=== PATIENT | male | born 1940 | race Caucasian/White ===

== ENCOUNTER → 2017-09-11 14:35 | Outpatient (CLI) | payer MEDICARE, BC, SELFPAY | PROVIDERS: Family Provider Family Medicine Geriatric Medicine; PCP Family Medicine Geriatric Medicine; Visit Provider Nurse Practitioner Acute Care | DX: Z46.89 Encounter for fitting and adjustment of other specified devices (principal) ==

== ENCOUNTER 2017-10-10 00:43 | Emergency (ER) | payer MEDICARE, BC, SELFPAY ==
[2017-10-10 00:43] VITALS: BP 169/75; PULSE 76; RESP 16; TEMP 36.8; O2SAT 99; BMI 42.1
[2017-10-10 00:51] LABS: Bedside Glucose 148 mg/dL (70-110)
--- NOTE | 2017-10-10 00:59 | CT_ITS ---
STUDY: CT BRAIN WITHOUT CONTRAST REASON FOR EXAM: Male, 77 years old. Confusion and altered mental status. RADIATION DOSAGE (If Supplied By Facility): CTDIvol = ( 44.99 ) mGy, DLP = ( 779.24 ) mGycm TECHNIQUE: Transaxial CT imaging of the brain was performed without administration of intravenous contrast material. Individualized dose optimization techniques were used for this CT. COMPARISON: None. FINDINGS: Normal soft tissue structures. Normal calvarium. There is mild cerebral atrophy with widening of the extra-axial spaces and ventricular dilatation. There are areas of decreased attenuation within the white matter tracts of the supratentorial brain, consistent with microvascular disease changes. Normal basal ganglia and thalami. Normal brainstem. Normal cerebellum. There is no intracranial hemorrhage. There are no findings of an acute ischemic infarction. Normal visualized paranasal sinuses. CT/Brain/Head without Contrast IMPRESSION: Chronic involutional changes of the brain. No acute intracranial process Electronically Signed: Dale Greene MD at 2:06 EST Tel , Service support ,
--- NOTE | 2017-10-10 00:59 | EKG12_ITS ---
Test Reason : CP Blood Pressure : / mmHG Vent. Rate : 073 BPM Atrial Rate : 073 BPM P-R Int : 108 ms QRS Dur : 098 ms QT Int : 428 ms P-R-T Axes : 078 071 064 degrees QTc Int : 471 ms Sinus rhythm with short OR Otherwise normal ECG Confirmed by CIRILO JOHNSON ([id number]), editor sound GORGE MARTIN ([id number]) on 10/14/2017 1:37:28 PM Referred By: ANNA Confirmed By:CIRILO JOHNSON
[2017-10-10 01:05] LABS: Absolute Lymphocyte Count 2.07 X10^3/ul (0.83-4.51); Absolute Neutrophil Count 3.4 X10^3/uL (2.0-7.7); Basophil# 0.02 X10^3/uL; Basophil% 0.3 % (0-1); Eosinophil# 0.25 X10^3/uL; Eosinophils% 3.9 % (0-5); Hematocrit 35.2 % (40-54); Hemoglobin 11.1 g/dl (13.0-16.5); Lymphocyte # 2.07 X10^3/ul (4.0); Lymphocyte % 32.6 % (19-41); Mean Corp Hgb Conc 31.5 g/gl (32-36); Mean Corpuscular Hgb 30.2 pg (27.0-32.0); Mean Corpuscular Volume 95.7 fL (80-94); Mean Platelet Vol. 9.9 fl (6.2-12.0); Monocyte# 0.62 X10^3/uL; Monocyte% 9.8 % (0-10); Neutrophil # 3.36 X10^3/uL (2.7-7.7); Neutrophil % 53.1 % (47-70); POSITIVE COUNT NO; POSITIVE DIFFERENTIAL NO; POSITIVE MORPHOLOGY NO; Platelet Count 179 K/mm3 (150-450); RBC Distribution Width CV 13.7 % (11.6-14.6); RBC Distribution Width SD 47.5 fl (35.1-43.9); Red Blood Count 3.68 M/mm3 (4.6-6.2); White Blood Count 6.3 K/mm3 (4.4-11.0)
[2017-10-10 01:08] VITALS: BP 171/65; PULSE 71; RESP 20; O2SAT 99
[2017-10-10 01:18] LABS: Anion Gap 10 (5-15); BUN 25 mg/dL (7-18); BUN/Creat Ratio 22.9 RATIO (10-20); Calcium,Total 8.6 mg/dL (8.5-10.1); Chloride 107 mmol/L (98-107); Creatinine, Serum 1.09 mg/dL (0.70-1.30); EST Glomerular Filtration Rate 70 mL/min (>60); Est Glom Filt Rate - Afr Amer 84 mL/min (>60); Glucose 143 mg/dL (74-106); Potassium 4.5 mmol/L (3.5-5.1); Sodium Level 143 mmol/L (136-145)
[2017-10-10 02:04] LABS: Bacteria 0 SEEN /hpf (None Seen); Mucous, Urine 0 SEEN /hpf (<or=2+); Red Blood Cells-Urine 0 SEEN /hpf (0-5); Squamous Epithelial Cells - UA 0 SEEN /hpf (0-5); White Blood Cells 0 SEEN /hpf (0-5)
[2017-10-10 02:10] LABS: Color, Urine Yellow (Yellow); Glucose, Dipstick Normal (Normal); Ketone-Dipstick Negative (Negative); Leukocyte Esterase-Dipstick Negative /ul (Negative); Nitrite-Dipstick Negative (Negative); Occult Blood-Urine Negative /ul (Negative); Protein-Dipstick 30 mg/dl (Negative); Specific Gravity, Urine 1.015 (1.002-1.030); Urine Bilirubin Dipstick Negative (Negative); Urine Clarity Clear (Clear); Urine Urobilinogen Normal (Normal)
[2017-10-10 02:36] VITALS: BP 175/68; PULSE 70; RESP 16; O2SAT 96
[2017-10-10 03:04] VITALS: BP 156/60; PULSE 66; RESP 20
--- NOTE | 2017-10-10 03:16 | ED.DCSUM_ITS ---
- ER Visit Summary Date of Service: 10/10/17 Chief Complaint: Slurred speech History of Present Illness: The patient is a 77 M presenting for evaluation secondary to an episode of slurred speech. Patient and his are in the process of selling their home in which they have lived for the last 52 years. Patient was doing well today, but they got an offer on their home today and it was $32,000 less than they are asking trevino. Patient states that he felt significantly insulted by this, became extremely emotional and actually called his counselor. While he was talking to his counselor apparently he was having some slurring of his speech. Patient states that he is having generalized weakness, but denies any numbness or visual changes. He is not having any word finding difficulty. Apparently the patient's counselor was concerned about his level of slurred speech and the patient was asked to present to the emergency department. Patient does have an underlying history of diabetes A. fib hypertension high cholesterol and coronary artery disease. Physical Examination: Vital signs within normal limits blood pressure mildly elevated 156/60. Obese male no acute distress. Head normocephalic atraumatic. Moist mucous membranes. PRL, EOMI. Neck supple. Heart regular rate and rhythm lungs sounds clear. Abdomen was soft nontender nondistended with normal bowel sounds. Extremities were nontender. Skin normal color no rash. Patient was alert and oriented ?4. Cranial nerves II through XII intact. Normal strength sensation. NIH stroke scale was found to be 0. Test Results: CT brain shows chronic changes. EKG shows sinus rhythm 73 short MA interval no evidence of ischemia. CBC shows mild anemia 11.1, chemistry and troponin found to be negative. Emergency Department Course and Treatment: Patient presented secondary to an episode of slurred speech. Patient was tearful upon my initial exam, and when I actually initially asked him what he was here for he very tearfully stated that someone was trying to steal his house from him. Full workup was obtained and was found to be negative. Repeat evaluation the patient was completely back to baseline and was lucid. I really do not believe that there is any utility in admitting the patient at this time, I believe that this likely was an emotional event rather than a TIA or stroke presentation. Had an extensive conversation with the patient and his about this, they are understanding and the patient was discharged in stable condition Disposition: Discharge Impression: 1. Adjustment disorder This note was generated with [employer] dictation software. It may contain incorrect words, spelling, and punctuation that were not noted in review of the chart prior to signing ED Disposition - Plan for ED Patient: Disposition: Home or Assisted Living Chief Complaint: Neuro S/Sx Diagnosis: Adjustment disorder Instructions: ED Adjustment Disorder Referrals: Hermilo Arellano Chi, MD [Primary Care Provider] - As Needed
[2017-10-10 03:34] VITALS: BP 155/88; PULSE 66; RESP 19; O2SAT 98
== END 2017-10-10 03:34 | disposition home or self-care (01) ==
PROVIDERS: Emergency Provider Emergency Medicine; Family Provider Family Medicine Geriatric Medicine; PCP Family Medicine Geriatric Medicine
DX: F43.29 Adjustment disorder with other symptoms (principal); E11.9 Type 2 diabetes mellitus without complications; Z79.84 Long term (current) use of oral hypoglycemic drugs; I25.10 Atherosclerotic heart disease of native coronary artery without angina pectoris; I48.91 Unspecified atrial fibrillation; I10 Essential (primary) hypertension; E78.00 Pure hypercholesterolemia, unspecified; N40.0 Benign prostatic hyperplasia without lower urinary tract symptoms; E66.9 Obesity, unspecified; Z68.41 Body mass index [BMI] 40.0-44.9, adult; Z79.01 Long term (current) use of anticoagulants; Z79.899 Other long term (current) drug therapy
CPT/HCPCS: 70450; 80048; 81001; 82962; 84484; 85025; 93005; 99285; A4216

== ENCOUNTER → 2017-10-22 14:26 | Outpatient (CLI) | payer MEDICARE, BC, SELFPAY ==
[2017-10-22 16:02] LABS: Anion Gap 11 (5-15); BUN 19 mg/dL (7-18); BUN/Creat Ratio 16.8 RATIO (10-20); CRP 4.52 mg/L (0.0-3.0); Calcium,Total 8.8 mg/dL (8.5-10.1); Chloride 102 mmol/L (98-107); Creatinine, Serum 1.13 mg/dL (0.70-1.30); EST Glomerular Filtration Rate 67 mL/min (>60); Est Glom Filt Rate - Afr Amer 81 mL/min (>60); Glucose 276 mg/dL (74-106); Potassium 4.5 mmol/L (3.5-5.1); Sodium Level 139 mmol/L (136-145); Uric Acid 5.4 mg/dL (3.5-7.2)
[2017-10-22 16:03] LABS: Absolute Lymphocyte Count 1.39 X10^3/ul (0.83-4.51); Absolute Neutrophil Count 3.9 X10^3/uL (2.0-7.7); Basophil# 0.03 X10^3/uL; Basophil% 0.5 % (0-1); Eosinophil# 0.14 X10^3/uL; Eosinophils% 2.3 % (0-5); Hematocrit 37.4 % (40-54); Hemoglobin 11.8 g/dl (13.0-16.5); Lymphocyte # 1.39 X10^3/ul (4.0); Lymphocyte % 23.2 % (19-41); Mean Corp Hgb Conc 31.6 g/gl (32-36); Mean Corpuscular Hgb 30.3 pg (27.0-32.0); Mean Corpuscular Volume 95.9 fL (80-94); Mean Platelet Vol. 10.1 fl (6.2-12.0); Monocyte# 0.52 X10^3/uL; Monocyte% 8.7 % (0-10); Platelet Count 187 K/mm3 (150-450); RBC Distribution Width CV 13.3 % (11.6-14.6); RBC Distribution Width SD 44.5 fl (35.1-43.9)
[2017-10-22 16:06] LABS: POSITIVE COUNT NO; POSITIVE DIFFERENTIAL NO; POSITIVE MORPHOLOGY NO
[2017-10-22 16:41] LABS: Erythrocyte Sedimentation Rate 20 mm/hr (0-20)
== END ==
PROVIDERS: Family Provider Family Medicine Geriatric Medicine; PCP Family Medicine Geriatric Medicine; Visit Provider Family Medicine Geriatric Medicine
DX: M10.9 Gout, unspecified (principal)
CPT/HCPCS: 36415; 80048; 84550; 85025; 85652; 86140

== ENCOUNTER 2017-11-11 09:51 | Observation (INO) | payer MEDICARE, BC, SELFPAY ==
[2017-11-11] VITALS (13 sets, daily range): BP systolic 109–172; BP diastolic 68–90; PULSE 65–76; RESP 16–20; TEMP 36.6–37; O2SAT 94–100; BMI 40.1; BMI 38.5
--- NOTE | 2017-11-11 10:06 | NURSING ---
NO LW OR POA
--- NOTE | 2017-11-11 10:24 | CT_ITS ---
STUDY: CT BRAIN WITHOUT CONTRAST REASON FOR EXAM: Male, 77 years old. Dizziness. RADIATION DOSAGE (If Supplied By Facility): CTDIvol = ( 44.99 ) mGy, DLP = ( 762.36 ) mGycm TECHNIQUE: Transaxial CT imaging of the brain was performed without administration of intravenous contrast material. Multiplanar reformations are submitted for interpretation. Individualized dose optimization techniques were used for this CT. COMPARISON: CT of the head dated May 27, 2017. FINDINGS: Normal soft tissue structures. Normal calvarium. There is mild cerebral atrophy with widening of the extra-axial spaces and ventricular dilatation. There are areas of decreased attenuation within the white matter tracts of the supratentorial brain, consistent with microvascular disease changes. There are patchy lucencies in the basal ganglia, probably related previous ischemia. The thalami have a normal appearance. Normal brainstem. Normal cerebellum. There is no intracranial hemorrhage. There is mild atherosclerotic calcification of intracranial arteries. Normal visualized paranasal sinuses. There is deviation of nasal septum towards the left with a bony spur. CT/Brain/Head without Contrast IMPRESSION: 1. Chronic involutional changes of the brain. 2. No CT evidence of acute intracranial hemorrhage. Electronically Signed: Shi Mary MD at 11:09 EDT , Service support ,
--- NOTE | 2017-11-11 10:24 | RAD_ITS ---
STUDY: X-RAY CHEST REASON FOR EXAM: Male, 77 years old. Shortness of breath, weakness and dizziness. TECHNIQUE: Single AP portable view of the chest. COMPARISON: March 10, 2017. FINDINGS: Cardiac monitoring leads are present. There is mild elevation of the right hemidiaphragm. The left lung is expanded. There is mild prominence of bronchovascular markings. There is no demonstrated pleural abnormality. There is mild cardiac enlargement. Normal mediastinum and lakhwinder. There is prominence of the pulmonary hilar arteries with peripheral pulmonary vascular congestion. There is atherosclerotic calcification of the aortic arch with tortuosity. Normal visualized thoracic spine. Normal visualized ribs, clavicles, and shoulders. There is no demonstrated abnormality of the visualized soft tissue structures of the upper abdomen. RAD/Chest 1 View IMPRESSION: Mild cardiomegaly and mild pulmonary congestion. Electronically Signed: Shi Mary MD at 11:14 EDT , Service support ,
--- NOTE | 2017-11-11 10:24 | EKG12_ITS ---
Test Reason : DIZZINESS Blood Pressure : / mmHG Vent. Rate : 066 BPM Atrial Rate : 066 BPM P-R Int : 204 ms QRS Dur : 104 ms QT Int : 450 ms P-R-T Axes : 046 064 071 degrees QTc Int : 471 ms Normal sinus rhythm Normal ECG Confirmed by JORDIN DUNCAN, SYBIL ([id number]), international editorial producer GORGE MARTIN ([id number]) on 11/13/2017 2:54:35 PM Referred By: JEANNIE Confirmed By:SYBIL BRENNER MD
[2017-11-11 10:33] LABS: Absolute Lymphocyte Count 1.35 X10^3/ul (0.83-4.51); Absolute Neutrophil Count 4.5 X10^3/uL (2.0-7.7); Basophil# 0.02 X10^3/uL; Basophil% 0.3 % (0-1); Eosinophil# 0.13 X10^3/uL; Hemoglobin 11.5 g/dl (13.0-16.5); Lymphocyte # 1.35 X10^3/ul (4.0); Lymphocyte % 20.8 % (19-41); Mean Corp Hgb Conc 31.9 g/gl (32-36); Mean Corpuscular Hgb 30.8 pg (27.0-32.0); Mean Corpuscular Volume 96.5 fL (80-94); Mean Platelet Vol. 9.7 fl (6.2-12.0); Monocyte# 0.51 X10^3/uL; Monocyte% 7.9 % (0-10); Neutrophil # 4.47 X10^3/uL (2.7-7.7); Neutrophil % 68.8 % (47-70); Platelet Count 152 K/mm3 (150-450); RBC Distribution Width CV 13.4 % (11.6-14.6); RBC Distribution Width SD 45.2 fl (35.1-43.9); Red Blood Count 3.73 M/mm3 (4.6-6.2); White Blood Count 6.5 K/mm3 (4.4-11.0)
[2017-11-11 10:36] LABS: Bedside Glucose 167 mg/dL (70-110)
[2017-11-11 10:38] LABS: POSITIVE COUNT NO; POSITIVE DIFFERENTIAL NO; POSITIVE MORPHOLOGY NO
[2017-11-11 10:47] LABS: Anion Gap 6 (5-15); BUN 19 mg/dL (7-18); BUN/Creat Ratio 17.8 RATIO (10-20); Calcium,Total 8.4 mg/dL (8.5-10.1); Chloride 107 mmol/L (98-107); Creatinine, Serum 1.07 mg/dL (0.70-1.30); EST Glomerular Filtration Rate 71 mL/min (>60); Est Glom Filt Rate - Afr Amer 86 mL/min (>60); Estimated Creatinine Clearance 62.45 ml/min; Glucose 193 mg/dL (74-106); Potassium 4.7 mmol/L (3.5-5.1); Sodium Level 141 mmol/L (136-145)
[2017-11-11 10:51] LABS: International Normalized Ratio 1.8; Prothrombin Time (Protime)PT. 21.2 SECONDS (11.7-14.9)
[2017-11-11 10:52] LABS: Partial Thromboplast Time 32.1 Seconds (24.1-36.2)
--- NOTE | 2017-11-11 11:00 | ED.VISSUMM ---
- ER Visit Summary Date of Service: 11/11/17 Chief Complaint: Dizziness History of Present Illness: The patient is a 77 M presenting with dizziness which started this morning. Patient states he woke this morning and felt normal. He states while making breakfast he began to have a spinning sensation. He states he felt weakness in both upper extremities. He tried to walk to his living room and fell to the floor. He did not hit his head, did not lose consciousness. He denies chest pain. He states the spinning sensation is intermittent. He has symptoms with change in position and at rest. Physical Examination: Vitals are stable. Patient is afebrile. Alert no acute distress. HEENT exam is unremarkable. Neck is supple. Lungs are clear and equal bilaterally. Heart is regular rate and rhythm. Abdomen is soft nontender nondistended. Extremities are unremarkable. Skin is warm and dry. No focal neurologic deficit. NIH 0 Remainder of exam is unremarkable. Emergency Department Course and Treatment: EKG is sinus rhythm rate is 66 with no acute ischemic changes. CBC normal except for hemoglobin 11.5. Chemistries normal except for glucose 193, BUN 19. INR is 1.8. Troponin is negative. CT head shows no acute process. Patient continues to have vertigo symptoms in the ED. Will discuss with the hospitalist for admission. Disposition: Observation Impression: Vertigo This note was generated with [employer] dictation software. It may contain incorrect words, spelling, and punctuation that were not noted in review of the chart prior to signing ED Disposition - Plan for ED Patient: Chief Complaint: Dizziness Referrals: Hermlio Arellano Chi, MD [Primary Care Provider] -
--- NOTE | 2017-11-11 11:27 | NURSING ---
DR ALY TENORIO
--- NOTE | 2017-11-11 11:36 | NURSING ---
DR LU IN ER
--- NOTE | 2017-11-11 11:36 | NURSING ---
110 VERTIGO AND SLID OFF FLOOR ALY
--- NOTE | 2017-11-11 12:19 | PCM.HP.STD ---
Problem List (1) Fall Status: Acute (2) Loss of equilibrium Status: Acute (3) history of right knee cap fracture Status: Resolved (4) Status post left foot surgery Status: Resolved (5) History of right knee surgery Status: Resolved (6) De Quervain's tenosynovitis Status: Chronic (7) Body mass index (BMI) of 39.0-39.9 in adult Status: Chronic (8) Diabetes mellitus Status: Chronic (9) Paroxysmal atrial fibrillation Status: Chronic Comment: ablation 2005, DCCV 2012,2014,2016 (10) BPH (benign prostatic hyperplasia) Status: Chronic (11) History of renal calculi Status: Chronic (12) Cardiac dysrhythmia Status: Chronic (13) Dyslipidemia Status: Chronic (14) HTN (hypertension) Status: Chronic Qualifiers: (15) Obstructive sleep apnea Status: Chronic Comment: 10cm pressure (16) RLS (restless legs syndrome) Status: Chronic (17) History of prior ablation treatment Status: Chronic (18) 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 fib/flutter status post ablation, diabetes mellitus type 2, hypertension came to ER with sudden onset of dizziness, vertigo and near fall. Patient woke up fine today but after he ate breakfast and took all his pills, he felt dizzy, lightheaded and vertigo about 8 AM today. Patient further felt loss of equilibrium and slid down near chair today. Patient also had blurry vision, frontal headache and mild pain around the eyes today. Patient has chronic history of intermittent dizziness and vertigo for more than 2-3 years and has seen ENT twice. He also has bilateral tinnitus for about 5 years. Denies any recent URI, flulike symptoms or lower urinary tract symptoms. Denies history of stroke or [place] or cardiac stent but has known history of coronary artery disease and ablation. His also mentioned that he is having problem with memories and more forgetfulness last 6-8 months. His previous echo in March 2015 shows normal LV size with normal systolic function, EF 60%. Mild TR and AR. Left atrium mildly enlarged. Normal right atrium. In ED, EKG shows normal sinus rhythm 66 bpm, with no significant change from previous EKG of September 2017. In ED, blood pressure was high at 170/90. Initial workup in ER was unremarkable. Past Medical History Past Medical History (Chronic Problems): Chronic Problems (Last Updated 08/25/17 @ 16:05 by JOSEPHINE Aguilar) De Quervain's tenosynovitis (Chronic) Body mass index (BMI) of 39.0-39.9 in adult (Chronic) Diabetes mellitus (Chronic) Paroxysmal atrial fibrillation (Chronic) ablation 2005, DCCV 2012,2014,2016 BPH (benign prostatic hyperplasia) (Chronic) History of renal calculi (Chronic) Cardiac dysrhythmia (Chronic) Dyslipidemia (Chronic) HTN (hypertension) (Chronic) Obstructive sleep apnea (Chronic) 10cm pressure RLS (restless legs syndrome) (Chronic) History of prior ablation treatment (Chronic) DM type 2 with diabetic peripheral neuropathy (Chronic) Diabetic polyneuropathy (Chronic) Dizziness (Chronic) CAD (coronary artery disease) (Chronic) Allergies acetaminophen [From Vicodin] Allergy (Mild, Verified 11/11/17 10:04) hydrocodone [From Vicodin] Allergy (Mild, Verified 11/11/17 10:04) hydrocodone bitartrate [From Vicodin] Allergy (Verified 11/11/17 10:04) Other Home Medications: Ambulatory Orders Medication Instructions Recorded Finasteride [Proscar] 5 mg PO DAILY 07/15/14 Pramipexole Di-HCl [Mirapex] 2 mg PO QHS 07/15/14 Rivaroxaban [Xarelto] 20 mg PO DAILY 07/15/14 Simvastatin [Zocor] 20 mg PO QHS 07/15/14 traMADol [Ultram] 100 mg PO TID 07/15/14 Metformin HCl [Glucophage] 1,000 mg PO BIDCM 10/22/15 Metoprolol Succinate [Toprol Xl] 50 mg PO DAILY 03/10/17 glimepiride 2 mg tablet 2 mg PO BID tab 08/06/17 flecainide 100 mg tablet 100 mg PO Q12H 08/26/17 lisinopril 40 mg tablet 40 mg PO DAILY tab 08/26/17 Levomilnacipran HCl [Fetzima] 40 mg PO DAILY 10/10/17 Ergocalciferol [Vitamin D] 50,000 unit PO QMONTH 11/11/17 Gabapentin [Neurontin] 300 mg PO DAILY 11/11/17 Tamsulosin HCl [Flomax] 0.4 mg PO QHS 11/11/17 Surgical History: tonsillectomy, - - Patella repair; ORIF of left foot from accident. Psychiatric History: No pertinent psych hx Smoking Status: Former smoker - *Family History Maternal History Items: Stroke - His mother had stroke in her 70's. Paternal History Items: Cancer - Lung Review of Systems Constitutional: Denies: Chills, Fever, Weight Change HEENT: Denies: Head Aches, Sinus Congestion, Sinus Drainage Cardiovascular: Denies: Chest Pain, Palpitations Respiratory: Denies: Cough, Shortness of breath at rest, Sputum production Gastrointestinal: Denies: Abdominal Pain, Nausea, Vomiting Genitourinary: Denies: Dysuria Musculoskeletal: Denies: Joint Pain, Joint Tenderness Skin: Denies: Rash, Wounds Neurological: Reports: Balance problems, Blurred vision, Incoordination. Denies: Focal weakness, Numbness, Tingling Psychiatric: Denies: Anxiety, Depression, Homicidal Ideations, Suicidal Ideations Hematologic/ Lymphatic: Denies: Easy Bruising, Easy Bleeding VTE Information - Inpt Only VTE Present on Admission: No VTE Mechan Device Prophylaxis: SCD's, None - ON XARELTO VTE Pharm Prophylaxis ordered?: Yes Patient Problems: Active and Suspected Problems (Last Updated 08/25/17 @ 16:05 by JOSEPHINE Aguilar) Fall (Acute) Loss of equilibrium (Acute) Near syncope (Acute) - Physical Exam General: Alert, Oriented x3, Cooperative HEENT: Atraumatic, PERRLA, EOMI, Normocephalic Oral: Moist Mucosa Neck: Supple, No JVD, Negative Carotid Bruits Lungs: Clear to auscultation, Diminished Cardiovascular: Regular rate, Regular Rhythm, Normal S1, Normal S2, No murmurs Abdomen: Bowel Sounds Present, Soft, Non Tender, Non-Distended Extremities: Capillary Refill Less than 3 Seconds, Edema Skin: No rashes, No breakdown Musculoskeletal: No Tenderness to Palpation of Joints or Extremities, Arthritic Changes Neurological: Cranial nerves II-XII grossly intact Psych/Mental Status: Normal Affect, Appropriate Vital Signs Temp Pulse Resp BP Pulse Ox 97.9 F 65 16 109/90 H 100 11/11/17 09:57 11/11/17 12:01 11/11/17 12:01 11/11/17 12:01 11/11/17 12:01 Oxygen Flow Rate (L/min) 2 Oxygen Delivery Method Nasal Cannula Assessment/Plan Active and Suspected Problems (Last Updated 08/25/17 @ 16:05 by JOSEPHINE Aguilar) Fall (Acute) Loss of equilibrium (Acute) Near syncope (Acute) The patient is a 77 year old M with multiple comorbidities as listed above including coronary artery disease, paroxysmal A. fib/flutter status post ablation, diabetes mellitus type 2, hypertension came to ER with sudden onset of dizziness, vertigo and near fall. Patient woke up fine today but after he ate breakfast and took all his pills, he felt dizzy, lightheaded and vertigo about 8 AM today. Patient further felt loss of equilibrium and slid down near chair today. Patient also had blurry vision, frontal headache and mild pain around the eyes today. Patient has chronic history of intermittent dizziness and vertigo for more than 2-3 years and has seen ENT twice. He also has bilateral tinnitus for about 5 years. Denies any recent URI, flulike symptoms or lower urinary tract symptoms. Denies history of stroke or [place] or cardiac stent but has known history of coronary artery disease and ablation. His also mentioned that he is having problem with memories and more forgetfulness last 6-8 months. His previous echo in March 2015 shows normal LV size with normal systolic function, EF 60%. Mild TR and AR. Left atrium mildly enlarged. Normal right atrium. In ED, EKG shows normal sinus rhythm 66 bpm, with no significant change from previous EKG of September 2017. In ED, blood pressure was high at 170/90. Initial workup in ER was unremarkable. Chest x-ray shows prominence of pulmonary hilar arteries with peripheral pulmonary vascular congestion. 1. Near syncope, exact etiology unclear possible polypharmacy/orthostatic hypotension rule out posterior circulation stroke: Patient is being admitted in PCU on manager cardiac cath. Neurochecks. MRI brain and carotid Doppler ordered. 2D echo ordered. On aspirin and a statin. Neuro consult. Orthostatic vitals. 2. Near fall with loss of equilibrium: As mentioned above will rule out a stroke. 3. Coronary artery disease, paroxysmal A. fib/further status post cardiac ablation: Continue home medication. Currently patient is normal sinus rhythm after ablation. Continue Xarelto. 4. Hypertension: His blood pressure was high 170/60 in ER but recent is 109/90. Hold antihypertensive medications. 5. Diabetes mellitus type 2, complicated with diabetic neuropathy: Accu-Chek before meals and at bedtime and cover with NovoLog sliding scale. Multiple other comorbidities including chronic dizziness, vertigo, tinnitus exact etiology unclear, chronic degenerative joint disease, morbid obesity, BPH, dyslipidemia, obstructive sleep apnea, restless leg syndrome history of renal calculi: Stable. Home medication reconciliation done. DVT prophylaxis: On Xarelto. Laboratory Results 11/11/17 10:10: WBC 6.5, RBC 3.73 L, Hgb 11.5 L, Hct 36.0 L, MCV 96.5 H, MCH 30.8, MCHC 31.9 L, RDW 13.4, RDW Differential 45.2 H, Plt Count 152, MPV 9.7, Immature Gran % (Auto) 0.200, Neut % (Auto) 68.8, Lymph % (Auto) 20.8, [place] % (Auto) 7.9, Eos % (Auto) 2.0, Baso % (Auto) 0.3, Absolute Neuts (auto) 4.5, Absolute Lymphs (auto) 1.35, Total Counted Not Reportable 11/11/17 10:10: PT 21.2 H, INR 1.8, APTT 32.1 11/11/17 10:10: Sodium 141, Potassium 4.7, Chloride 107, Carbon Dioxide 28.0, Anion Gap 6, BUN 19 H, Creatinine 1.07, Estim Creat Clear Calc 62.45, Est GFR (MDRD) Af Amer 86, Est GFR (MDRD) Non-Af 71, BUN/Creatinine Ratio 17.8, Glucose 193 H, Calcium 8.4 L, Troponin I < 0.02 11/11/17 10:32: POC Glucose 167 H Clinical Impression(s) from Imaging Studies Brain CT 11/11/17 10:24 IMPRESSION: 1. Chronic involutional changes of the brain. 2. No CT evidence of acute intracranial hemorrhage. Electronically Signed: Shi Mary MD at 11:09 EDT , Service support , Chest X-Ray 11/11/17 10:24 IMPRESSION: Mild cardiomegaly and mild pulmonary congestion. Electronically Signed: Shi Mary MD at 11:14 EDT , Service support , This note was generated with [employer] dictation software. Every effort was made to ensure accuracy, however computerized professor of languages mistakes may persist. Code Visit Inpatient E&M: 25061 Subs Hosp L3
--- NOTE | 2017-11-11 12:30 | HP.PCM_ITS ---
Problem List (1) Fall Status: Acute (2) Loss of equilibrium Status: Acute (3) history of right knee cap fracture Status: Resolved (4) Status post left foot surgery Status: Resolved (5) History of right knee surgery Status: Resolved (6) De Quervain's tenosynovitis Status: Chronic (7) Body mass index (BMI) of 39.0-39.9 in adult Status: Chronic (8) Diabetes mellitus Status: Chronic (9) Paroxysmal atrial fibrillation Status: Chronic Comment: ablation 2005, [facility] 2012,2014,2016 (10) BPH (benign prostatic hyperplasia) Status: Chronic (11) History of renal calculi Status: Chronic (12) Cardiac dysrhythmia Status: Chronic (13) Dyslipidemia Status: Chronic (14) HTN (hypertension) Status: Chronic Qualifiers: (15) Obstructive sleep apnea Status: Chronic Comment: 10cm pressure (16) RLS (restless legs syndrome) Status: Chronic (17) History of prior ablation treatment Status: Chronic (18) 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 fib/flutter status post ablation, diabetes mellitus type 2, hypertension came to ER with sudden onset of dizziness, vertigo and near fall. Patient woke up fine today but after he ate breakfast and took all his pills, he felt dizzy, lightheaded and vertigo about 8 AM today. Patient further felt loss of equilibrium and slid down near chair today. Patient also had blurry vision, frontal headache and mild pain around the eyes today. Patient has chronic history of intermittent dizziness and vertigo for more than 2-3 years and has seen ENT twice. He also has bilateral tinnitus for about 5 years. Denies any recent URI, flulike symptoms or lower urinary tract symptoms. Denies history of stroke or [place] or cardiac stent but has known history of coronary artery disease and ablation. His also mentioned that he is having problem with memories and more forgetfulness last 6-8 months. His previous echo in March 2015 shows normal LV size with normal systolic function, EF 60%. Mild TR and AR. Left atrium mildly enlarged. Normal right atrium. In ED, EKG shows normal sinus rhythm 66 bpm, with no significant change from previous EKG of September 2017. In ED, blood pressure was high at 170/90. Initial workup in ER was unremarkable. Past Medical History Past Medical History (Chronic Problems): Chronic Problems (Last Updated 08/25/17 @ 16:05 by JOSEPHINE Aguilar) De Quervain's tenosynovitis (Chronic) Body mass index (BMI) of 39.0-39.9 in adult (Chronic) Diabetes mellitus (Chronic) Paroxysmal atrial fibrillation (Chronic) ablation 2005, D[facility]V 2012,2014,2016 BPH (benign prostatic hyperplasia) (Chronic) History of renal calculi (Chronic) Cardiac dysrhythmia (Chronic) Dyslipidemia (Chronic) HTN (hypertension) (Chronic) Obstructive sleep apnea (Chronic) 10cm pressure RLS (restless legs syndrome) (Chronic) History of prior ablation treatment (Chronic) DM type 2 with diabetic peripheral neuropathy (Chronic) Diabetic polyneuropathy (Chronic) Dizziness (Chronic) CAD (coronary artery disease) (Chronic) Allergies acetaminophen [From Vicodin] Allergy (Mild, Verified 11/11/17 10:04) hydrocodone [From Vicodin] Allergy (Mild, Verified 11/11/17 10:04) hydrocodone bitartrate [From Vicodin] Allergy (Verified 11/11/17 10:04) Other Home Medications: Ambulatory Orders Medication Instructions Recorded Finasteride [Proscar] 5 mg PO DAILY 07/15/14 Pramipexole Di-HCl [Mirapex] 2 mg PO QHS 07/15/14 Rivaroxaban [Xarelto] 20 mg PO DAILY 07/15/14 Simvastatin [Zocor] 20 mg PO QHS 07/15/14 traMADol [Ultram] 100 mg PO TID 07/15/14 Metformin HCl [Glucophage] 1,000 mg PO BIDCM 10/22/15 Metoprolol Succinate [Toprol Xl] 50 mg PO DAILY 03/10/17 glimepiride 2 mg tablet 2 mg PO BID tab 08/06/17 flecainide 100 mg tablet 100 mg PO Q12H 08/26/17 lisinopril 40 mg tablet 40 mg PO DAILY tab 08/26/17 Levomilnacipran HCl [Fetzima] 40 mg PO DAILY 10/10/17 Ergocalciferol [Vitamin D] 50,000 unit PO QMONTH 11/11/17 Gabapentin [Neurontin] 300 mg PO DAILY 11/11/17 Tamsulosin HCl [Flomax] 0.4 mg PO QHS 11/11/17 Surgical History: tonsillectomy, - - Patella repair; ORIF of left foot from accident. Psychiatric History: No pertinent psych hx Smoking Status: Former smoker - *Family History Maternal History Items: Stroke - His mother had stroke in her 70's. Paternal History Items: Cancer - Lung Review of Systems Constitutional: Denies: Chills, Fever, Weight Change HEENT: Denies: Head Aches, Sinus Congestion, Sinus Drainage Cardiovascular: Denies: Chest Pain, Palpitations Respiratory: Denies: Cough, Shortness of breath at rest, Sputum production Gastrointestinal: Denies: Abdominal Pain, Nausea, Vomiting Genitourinary: Denies: Dysuria Musculoskeletal: Denies: Joint Pain, Joint Tenderness Skin: Denies: Rash, Wounds Neurological: Reports: Balance problems, Blurred vision, Incoordination. Denies : Focal weakness, Numbness, Tingling Psychiatric: Denies: Anxiety, Depression, Homicidal Ideations, Suicidal Ideations Hematologic/ Lymphatic: Denies: Easy Bruising, Easy Bleeding VTE Information - Inpt Only VTE Present on Admission: No VTE Mechan Device Prophylaxis: SCD's, None - ON XARELTO VTE Pharm Prophylaxis ordered?: Yes Patient Problems: Active and Suspected Problems (Last Updated 08/25/17 @ 16:05 by JOSEPHINE Aguilar) Fall (Acute) Loss of equilibrium (Acute) Near syncope (Acute) - Physical Exam General: Alert, Oriented x3, Cooperative HEENT: Atraumatic, PERRLA, EOMI, Normocephalic Oral: Moist Mucosa Neck: Supple, No JVD, Negative Carotid Bruits Lungs: Clear to auscultation, Diminished Cardiovascular: Regular rate, Regular Rhythm, Normal S1, Normal S2, No murmurs Abdomen: Bowel Sounds Present, Soft, Non Tender, Non-Distended Extremities: Capillary Refill Less than 3 Seconds, Edema Skin: No rashes, No breakdown Musculoskeletal: No Tenderness to Palpation of Joints or Extremities, Arthritic Changes Neurological: Cranial nerves II-XII grossly intact Psych/Mental Status: Normal Affect, Appropriate Vital Signs Temp Pulse Resp BP Pulse Ox 97.9 F 65 16 109/90 H 100 11/11/17 09:57 11/11/17 12:01 11/11/17 12:01 11/11/17 12:01 11/11/17 12:01 Oxygen Flow Rate (L/min) 2 Oxygen Delivery Method Nasal Cannula Assessment/Plan Active and Suspected Problems (Last Updated 08/25/17 @ 16:05 by JOSEPHINE Aguilar) Fall (Acute) Loss of equilibrium (Acute) Near syncope (Acute) The patient is a 77 year old M with multiple comorbidities as listed above including coronary artery disease, paroxysmal A. fib/flutter status post ablation, diabetes mellitus type 2, hypertension came to ER with sudden onset of dizziness, vertigo and near fall. Patient woke up fine today but after he ate breakfast and took all his pills, he felt dizzy, lightheaded and vertigo about 8 AM today. Patient further felt loss of equilibrium and slid down near chair today. Patient also had blurry vision, frontal headache and mild pain around the eyes today. Patient has chronic history of intermittent dizziness and vertigo for more than 2-3 years and has seen ENT twice. He also has bilateral tinnitus for about 5 years. Denies any recent URI, flulike symptoms or lower urinary tract symptoms. Denies history of stroke or [place] or cardiac stent but has known history of coronary artery disease and ablation. His also mentioned that he is having problem with memories and more forgetfulness last 6-8 months. His previous echo in March 2015 shows normal LV size with normal systolic function, EF 60%. Mild TR and AR. Left atrium mildly enlarged. Normal right atrium. In ED, EKG shows normal sinus rhythm 66 bpm, with no significant change from previous EKG of September 2017. In ED, blood pressure was high at 170/90. Initial workup in ER was unremarkable. Chest x-ray shows prominence of pulmonary hilar arteries with peripheral pulmonary vascular congestion. 1. Near syncope, exact etiology unclear possible polypharmacy/orthostatic hypotension rule out posterior circulation stroke: Patient is being admitted in PCU on repair mechanic. Neurochecks. MRI brain and carotid Doppler ordered. 2D echo ordered. On aspirin and a statin. Neuro consult. Orthostatic vitals. 2. Near fall with loss of equilibrium: As mentioned above will rule out a stroke. 3. Coronary artery disease, paroxysmal A. fib/further status post cardiac ablation: Continue home medication. Currently patient is normal sinus rhythm after ablation. Continue Xarelto. 4. Hypertension: His blood pressure was high 170/60 in ER but recent is 109/ 90. Hold antihypertensive medications. 5. Diabetes mellitus type 2, complicated with diabetic neuropathy: Accu-Chek before meals and at bedtime and cover with NovoLog sliding scale. Multiple other comorbidities including chronic dizziness, vertigo, tinnitus exact etiology unclear, chronic degenerative joint disease, morbid obesity, BPH , dyslipidemia, obstructive sleep apnea, restless leg syndrome history of renal calculi: Stable. Home medication reconciliation done. DVT prophylaxis: On Xarelto. Laboratory Results 11/11/17 10:10: WBC 6.5, RBC 3.73 L, Hgb 11.5 L, Hct 36.0 L, MCV 96.5 H, MCH 30.8, MCHC 31.9 L, RDW 13.4, RDW Differential 45.2 H, Plt Count 152, MPV 9.7, Immature Gran % (Auto) 0.200, Neut % (Auto) 68.8, Lymph % (Auto) 20.8, Rains % ( Auto) 7.9, Eos % (Auto) 2.0, Baso % (Auto) 0.3, Absolute Neuts (auto) 4.5, Absolute Lymphs (auto) 1.35, Total Counted Not Reportable 11/11/17 10:10: PT 21.2 H, INR 1.8, APTT 32.1 11/11/17 10:10: Sodium 141, Potassium 4.7, Chloride 107, Carbon Dioxide 28.0, Anion Gap 6, BUN 19 H, Creatinine 1.07, Estim Creat Clear Calc 62.45, Est GFR ( MDRD) Af Amer 86, Est GFR (MDRD) Non-Af 71, BUN/Creatinine Ratio 17.8, Glucose 193 H, Calcium 8.4 L, Troponin I < 0.02 11/11/17 10:32: POC Glucose 167 H Clinical Impression(s) from Imaging Studies Brain CT 11/11/17 10:24 IMPRESSION: 1. Chronic involutional changes of the brain. 2. No CT evidence of acute intracranial hemorrhage. Electronically Signed: Shi Mary MD at 11:09 EDT , Service support , Chest X-Ray 11/11/17 10:24 IMPRESSION: Mild cardiomegaly and mild pulmonary congestion. Electronically Signed: Shi Mary MD at 11:14 EDT , Service support , This note was generated with [employer] dictation software. Every effort was made to ensure accuracy, however computerized solid waste facility supervisor mistakes may persist. Code Visit Inpatient E&M: 14704 Subs Hosp L3
--- NOTE | 2017-11-11 12:42 | ECHOD_ITS ---
Reason For Study: NEAR SYNCOPE Procedure This was a 2D Doppler, Color Flow transthoracic echocardiogram. Exam performed portable in patient room. Left Ventricle Normal LV size. Moderate concentric left ventricular hypertrophy. Left ventricular systolic function is normal. The estimated ejection fraction is 60 %. No evidence for diastolic dysfunction. No regional wall motion abnormalities noted. Mitral Valve There is mild mitral annular calcification. Mild (1+) eccentric mitral valve insufficiency. Tricuspid Valve Normal tricuspid valve. Mild tricuspid valve insufficiency. Pulmonary artery systolic pressure is 34 mmHg. Aortic Valve Trisinus/trileaflet aortic valve. Mild (1+) eccentric aortic valve insufficiency. Pulmonic Valve Normal pulmonic valve. Mild (1+) pulmonic valve insufficiency. Great Vessels Normal aortic root. The pulmonary artery is normal size. Normal inferior vena cava. Pericardium/Pleural No pericardial effusion. MMode/2D Measurements & Calculations LVIDd: 4.3 cm IVSd: 1.9 cm Ao root diam: 4.1 cm LVIDs: 3.2 cm LVPWd: 1.3 cm RVDd: 3.7 cm FS: 24.4 % LAV(MOD-bp): 59.3 ml EDV(MOD-sp4): 133.6 ml SV(MOD-sp4): 83.6 ml LAV(MOD-bp) Indexed: 23.6 ml/m2 ESV(MOD-sp4): 50.0 ml LAV(MOD-sp2): 67.2 ml EF(MOD-sp4): 62.6 % LAV(MOD-sp4): 48.8 ml LA A4 area: 19.6 cm2 RA A4 area: 12.0 cm2 Doppler Measurements & Calculations MV E max darrius: 110.5 cm/sec Lat Peak E' Darrius: 9.3 cm/sec Med Peak E' Darrius: 7.1 cm/sec MV A max darrius: 127.9 cm/sec E/E' lat: 11.9 E/E' med: 15.5 MV E/A: 0.86 Ao V2 max: 158.3 cm/sec AI max darrius: 442.2 cm/sec LV V1 max: 152.1 cm/sec Ao max P.0 mmHg AI max P.2 mmHg LV V1 max P.3 mmHg AI dec slope: 285.0 cm/sec2 AI P1/2t: 454.4 msec PA V2 max: 78.7 cm/sec TR max darrius: 271.3 cm/sec TR max P.6 mmHg Interpretation Summary No evidence for diastolic dysfunction. Normal LV size. Moderate concentric left ventricular hypertrophy. Left ventricular systolic function is normal. The estimated ejection fraction is 60 %. Mild (1+) eccentric mitral valve insufficiency. Mild tricuspid valve insufficiency. Ordering Physician: Tyler, Yogesh Referring Physician: JOLIE LLOYD CHI Performed By: Darlene Jain RDCS
--- NOTE | 2017-11-11 12:42 | MRI_ITS ---
STUDY: MRI BRAIN WITHOUT CONTRAST REASON FOR EXAM: Male, 77 years old. Vertigo TECHNIQUE: Standardized multiplanar fat and water weighted pulse sequences were obtained. COMPARISON: November 11, 2017 FINDINGS: Mild atrophy and periventricular white matter ischemic changes without mass effect or restricted diffusion.. Chronic ischemic changes are seen within the clemente. Normal bilateral basal ganglia. Normal thalami. There is no extra-axial fluid accumulation. Normal flow voids within the major intracranial circulation suggesting patency by spin echo criteria. Normal sella turcica, pituitary gland, infundibular stalk, optic chiasm and hypothalamus. Normal tectal plate and pineal gland. Normal midbrain, and medulla. Normal cerebellum. Normal basal cisterns. Normal bilateral temporal bones. Normal bilateral internal auditory canals. No demonstrated orbital abnormality, within the constraints of a routine brain study. There is minor mucosal thickening within the right ethmoid air cells.. Normal calvarium and skull base. Normal visualized soft tissue structures. Normal visualized upper cervical spine. MRI/Brain without Contrast IMPRESSION: Minor atrophy and periventricular white matter ischemic changes without evidence for acute infarct. Chronic ischemic changes within the clemente. Electronically Signed: Helio Cueto MD at 19:06 EDT , Service support ,
[2017-11-11 13:17] LABS: AST(SGOT) 42 U/L (15-37); Alanine Aminotransfer ALT/SGPT 62 U/L (16-61); Albumin, Serum 2.9 g/dL (3.2-5.0); Alkaline Phosphatase 51 U/L (45-117); Bilirubin, Direct 0.14 mg/dL (0.00-0.30); Protein, Total 5.9 g/dL (6.4-8.2); Thyroid Stim Hormone (TSH) 0.93 uIU/mL (0.358-3.74)
--- NOTE | 2017-11-11 13:30 | MRI_ITS ---
STUDY: MRA OF THE HEAD WITHOUT CONTRAST REASON FOR EXAM: Male, 77 years old. Vertigo TECHNIQUE: 3-D [id number]-ufhtec (TOF) imaging was performed with MIPs. The study was performed unenhanced. COMPARISON: None. FINDINGS: Normal bilateral petrous carotid arteries. Normal right cavernous carotid artery with a normal supraclinoid bifurcation. Normal left cavernous carotid artery with a normal supraclinoid bifurcation. Normal right A1 segments of the anterior cerebral artery. Normal left A1 segments of the anterior cerebral artery. Normal intact anterior communicating artery (ACOM). Normal bilateral A2 segments of the anterior cerebral arteries. Normal right M1 and M2 segments of the middle cerebral arteries, with a normal M1 bifurcation. Normal left M1 and M2 segments of the middle cerebral arteries, with a normal M1 bifurcation. Right posterior communicating artery not visualized consistent with normal developmental variant). Normal left posterior communicating artery (PCOM). Normal bilateral vertebral arteries. Normal basilar artery with a normal basilar bifurcation. The visualized bilateral superior cerebellar (SCA) arteries are normal. Normal bilateral P1, P2 and visualized P3 segments of the posterior cerebral arteries. There is no demonstrated aneurysm of the [place]. There is no major vessel occlusion or hemodynamically significant stenosis. There is no demonstrated abnormality of the visualized brain. MRI/MRA Head ONLY without Contrast IMPRESSION: Normal MRA of the head Electronically Signed: Helio Cueto MD at 17:25 EDT , Service support ,
--- NOTE | 2017-11-11 13:30 | MRI_ITS ---
STUDY: MRA NECK WITH AND WITHOUT CONTRAST REASON FOR EXAM: Male, 77 years old. Vertigo TECHNIQUE: 3-D [id number] (TOF) imaging was performed in an 1.5 T MRI scanner. 10 ml of Gadavist was administered for the contrast enhanced images. COMPARISON: None. FINDINGS: RIGHT CAROTID ARTERIES: Normal right common carotid artery (CCA). Normal right common carotid bulb. Normal origin of the right internal carotid (ICA) artery without a hemodynamically significant stenosis. Normal visualized cervical portion of the right internal carotid artery. Normal origin of the right external carotid artery (ECA). LEFT CAROTID ARTERIES: There is mild focal segmental narrowing of the proximal left common carotid but is more normal caliber distally. Normal left common carotid bulb. Normal origin of the left internal carotid (ICA) artery without a hemodynamically significant stenosis. Normal visualized cervical portion of the left internal carotid artery. Normal origin of the left external carotid artery (ECA). VERTEBRAL ARTERIES: Right vertebral is dominant and normal caliber. The left vertebral demonstrates mild diffuse narrowing distally. MRI/MRA Neck WITH and W/O Contrast IMPRESSION: Mild atherosclerotic disease more pronounced on the left. No evidence for hemodynamically significant stenosis utilizing NASCET criteria Electronically Signed: Helio Cueto MD at 16:53 EDT , Service support ,
[2017-11-11] MEDS: 0.9% Normal Saline 1,000 ML 100 ML IV ×2 (14:29→20:51)
[2017-11-11] MEDS: Aspirin 81 MG TAB.CHEW PO (14:29)
--- NOTE | 2017-11-11 15:04 | PCM.CONS.GEN ---
Reason for Consult Date of Consultation: 11/11/17 Reason for Consultation: Dizziness History of Present Illness: The patient is a 77 year old CM with PMH HTN, HLD, DM, DM Neuropathy, Afib s/p ablation on Xarelto, CAD, RLS, MACHELLE, morbid obesity admitted with dizziness and fall. Per patient this morning (11/11/17) he felt dizziness and light headed and had a fall. Denies syncope or LOC. Per patient he has dizziness for few years now, denies any spinning sensation, but would get dizzy for few minutes multiple times a day. He also has tinnitus for long time and also has seen ENT in the past. Lives with his , denies any frequent falls, does drive, does not need any assistance for his ADLs. He denies any visual disturbances, speech disturbances, focal motor weakness, sensory loss with the dizziness. He denies any IGLESIAS at present. Per documentation he had IGLESIAS with the dizziness but there was no vision loss, jaw claudication or temporal tenderness. Per documentation he has been having memory issues for the past 6 months with increasing forgetfulness. ] Past Medical History Past Medical History (Chronic Problems): Chronic Problems (Last Updated 08/25/17 @ 16:05 by JOSEPHINE Aguilar) De Quervain's tenosynovitis (Chronic) Body mass index (BMI) of 39.0-39.9 in adult (Chronic) Diabetes mellitus (Chronic) Paroxysmal atrial fibrillation (Chronic) ablation 2005, [facility] 2012,2014,2016 BPH (benign prostatic hyperplasia) (Chronic) History of renal calculi (Chronic) Cardiac dysrhythmia (Chronic) Dyslipidemia (Chronic) HTN (hypertension) (Chronic) Obstructive sleep apnea (Chronic) 10cm pressure RLS (restless legs syndrome) (Chronic) History of prior ablation treatment (Chronic) DM type 2 with diabetic peripheral neuropathy (Chronic) Diabetic polyneuropathy (Chronic) Dizziness (Chronic) CAD (coronary artery disease) (Chronic) Allergies acetaminophen [From Vicodin] Allergy (Mild, Verified 11/11/17 10:04) hydrocodone [From Vicodin] Allergy (Mild, Verified 11/11/17 10:04) hydrocodone bitartrate [From Vicodin] Allergy (Verified 11/11/17 10:04) Other hydroxyzine Adverse Reaction (Verified 11/11/17 13:12) Other CALLED DIZZINESS Home Medications: Ambulatory Orders Medication Instructions Recorded Finasteride [Proscar] 5 mg PO DAILY 07/15/14 Pramipexole Di-HCl [Mirapex] 2 mg PO 2000 07/15/14 Rivaroxaban [Xarelto] 20 mg PO DAILY 07/15/14 Simvastatin [Zocor] 20 mg PO QHS 07/15/14 traMADol [Ultram] 300 mg PO QHS 07/15/14 Metformin HCl [Glucophage] 1,000 mg PO BIDCM 10/22/15 Metoprolol Succinate [Toprol Xl] 25 mg PO DAILY 03/10/17 glimepiride 2 mg tablet 2 mg PO BID tab 08/06/17 flecainide 100 mg tablet 100 mg PO Q12H 08/26/17 lisinopril 40 mg tablet 20 mg PO QHS tab 08/26/17 Levomilnacipran HCl [Fetzima] 40 mg PO DAILY 10/10/17 Ergocalciferol [Vitamin D] 50,000 unit PO QMONTH 11/11/17 Gabapentin [Neurontin] 300 mg PO DAILY 11/11/17 Tamsulosin HCl [Flomax] 0.4 mg PO QHS 11/11/17 Surgical History: tonsillectomy, - - Patella repair; ORIF of left foot from accident. Psychiatric History: No pertinent psych hx Lives: Spouse/ Significant Other Smoking Status: Former smoker Alcohol: None Drugs: None - *Family History Maternal History Items: Stroke - His mother had stroke in her 70's. Paternal History Items: Cancer - Lung Review of Systems Constitutional: Reports: - - complete ROS negative except as documented in HPI Patient Problems: Active and Suspected Problems (Last Updated 08/25/17 @ 16:05 by JOSEPHINE Aguilar) Fall (Acute) Loss of equilibrium (Acute) Near syncope (Acute) - Physical Exam General: Alert HEENT: Normocephalic Neck: Supple Lungs: Clear to auscultation Cardiovascular: Normal S1, Normal S2 Abdomen: Bowel Sounds Present Extremities: No clubbing Skin: No rashes Musculoskeletal: No Tenderness to Palpation of Joints or Extremities Neurological: - - consious, alert, AoAx3, CN 2-12 grossly intact, power 5/5 all 4 extremities, no sensory loss, no cerebellar signs, Reflexes + B/L B/S/T/K/A, gait deferred. No Nystagmus. Vital Signs Temp Pulse Resp BP Pulse Ox 98.6 F 66 16 148/71 H 96 11/11/17 13:30 11/11/17 13:30 11/11/17 13:30 11/11/17 13:30 11/11/17 13:30 Oxygen Flow Rate (L/min) 2 Oxygen Delivery Method Room Air Weight: 128.9 kg Body Mass Index (BMI) 38.5 Laboratory Tests Past 24 Hrs 11/11/17 11/11/17 14:50 14:50 Hemoglobin A1c Pending Troponin I Pending Assessment/Plan Active and Suspected Problems (Last Updated 08/25/17 @ 16:05 by JOSEPHINE Aguilar) Fall (Acute) Loss of equilibrium (Acute) Near syncope (Acute) The patient is a 77 year old CM with PMH HTN, HLD, DM, DM Neuropathy, Afib s/p ablation on Xarelto, CAD, RLS, MACHELLE, morbid obesity admitted with dizziness and fall. Per patient this morning (11/11/17) he felt dizziness and light headed and had a fall. Per patient he has dizziness for few years now, denies any spinning sensation, but would get dizzy for few minutes multiple times a day. He also has tinnitus for long time and also has seen ENT in the past. Lives with his , denies any frequent falls, does drive, does not need any assistance for his ADLs. He denies any visual disturbances, speech disturbances, focal motor weakness, sensory loss with the dizziness. He denies any IGLESIAS at present. Per documentation he had IGLESIAS with the dizziness but there was no vision loss, jaw claudication or temporal tenderness. Per documentation he has been having memory issues for the past 6 months with increasing forgetfulness. Per about 2 weeks ago he tripped and fell but did not lose consciousness. Denies any frequent falls. Impression Dizziness-likely peripheral etiology Memory issues Plan -CT head nothing acute -Recommend MRI brain w/o contrast and MRA head/neck -Check TTE -Check Orthostatic vitals -Recommend ESR, vitamin B12 level, TSH, LDL and Hba1c -On Xarelto -On Lipitor 80 but LFTs are mildly altered AST/ALT-42/62, can hold statin and if LFTs normalize can start at lower dose, will defer further management to the primary team. -Will check neurocognitive evaluation as outpatient -Follow up with Neurology as outpatient in 4 weeks. -PT/OT -GI/DVT prophylaxis -Fall precautions -Please call with questions if any -Thank you for allowing us to participate in patient's care and management I spent 60 minutes taking history, doing physical examination, reviewing medical records and counseling the patient and his . Code Visit Inpatient E&M: 86306 Init Hosp L3
[2017-11-11 15:26] LABS: Hemoglobin A1c 8.5 % (4.2-6.3)
[2017-11-11 16:30] LABS: Erythrocyte Sedimentation Rate 5 mm/hr (0-20)
--- NOTE | 2017-11-11 16:34 | CHAPLAIN ---
Type of Pastoral Visit _x__ Initial Visit ___ Follow-up Visit ___ On-call Visit ___ General Patient Visit ___ Spiritual Assessment ___ Family Conference ___ Bereavement ___ Rapid Response ___ Code Blue ___ Other (describe below) Pastoral Care Referral From _x__ Patient ___ Family _x__ Nurse ___ Physician ___ Intermediate Accountant ___ Cement Storage Worker ___ Other (describe below) Sacrament/Intervention _x__ Active listening ___ Anointing ___ Adventism ___ Bereavement ___ Communion ___ Ariadna exploration ___ _x__ Life review _x__ Prayer ___ Reconciliation ___ Sacrament of Sick _x__ Supportive presence ___ Wedding ___ Other (describe below) Pastoral Comments
[2017-11-11] MEDS: Flecainide 100 MG Tablet PO (16:54)
[2017-11-11 17:05] LABS: Bedside Glucose 110 mg/dL (70-110)
[2017-11-11] MEDS: Pramipexole Di-HCl 1 MG Tablet 2 MG PO (20:45)
[2017-11-11] MEDS: Glimepiride 2 MG Tablet PO (20:45)
[2017-11-11] MEDS: Famotidine 20 MG Tablet PO (20:46)
[2017-11-11] MEDS: Lisinopril 20 MG Tablet PO (20:46)
[2017-11-11] MEDS: Acetaminophen 325 MG Tablet 650 MG PO (20:46)
[2017-11-11] MEDS: Tamsulosin HCl 0.4 MG Capsule PO (20:46)
[2017-11-11 20:51] LABS: Bedside Glucose 93 mg/dL (70-110)
[2017-11-11] MEDS: traMADol 50 MG Tablet 100 MG PO (22:42)
[2017-11-12] VITALS (9 sets, daily range): BP systolic 149–169; BP diastolic 62–83; PULSE 76–81; RESP 14–18; TEMP 36.4–37.1; O2SAT 95–96; BMI 38.5
[2017-11-12 06:32] LABS: Cholesterol 105 mg/dL (200); High Density Lipoprotein 47 mg/dL; Triglycerides 213 mg/dL; Very Low Density Lipoprotein 43 mg/dL (5-40)
[2017-11-12] MEDS: 0.9% Normal Saline 1,000 ML 100 ML IV (06:41)
[2017-11-12 06:51] LABS: Bedside Glucose 117 mg/dL (70-110)
[2017-11-12] MEDS: Glimepiride 2 MG Tablet PO (08:20)
[2017-11-12] MEDS: Gabapentin 300 MG Capsule PO (08:20)
[2017-11-12 09:10] LABS: Vitamin B12 290 pg/mL (211-911)
[2017-11-12] MEDS: Atorvastatin Calcium 80 MG Tablet PO (09:40)
[2017-11-12] MEDS: Famotidine 20 MG Tablet PO (09:41)
[2017-11-12] MEDS: Flecainide 100 MG Tablet PO (09:42)
[2017-11-12] MEDS: Finasteride 5 MG Tablet PO (09:42)
[2017-11-12] MEDS: Rivaroxaban 20 MG Tablet PO (09:43)
[2017-11-12] MEDS: Metoprolol(XL)Succ 25 MG Tablet PO (09:45)
[2017-11-12 11:21] LABS: Bedside Glucose 237 mg/dL (70-110)
--- NOTE | 2017-11-12 13:49 | DCINST_ITS ---
- Discharge Diagnoses Current Active Problems: Current Active and Chronic Problems (Last Updated 08/25/17 @ 16:05 by JOSEPHINE Aguilar) Fall (Acute) Loss of equilibrium (Acute) Near syncope (Acute) You will use the following diet at home:: Calorie/Carbohydrate Controlled ( specify 1200, 1400, etc) - 1800 ADA diet, Cardiac Discharge Activity: May Not Drive Allergies/Adverse Reactions: Allergies hydrocodone [From Vicodin] Allergy (Mild, Verified 11/11/17 10:04) hydrocodone bitartrate [From Vicodin] Allergy (Verified 11/11/17 10:04) Other hydroxyzine Adverse Reaction (Verified 11/11/17 13:12) Other CALLED DIZZINESS Medications to take at Discharge Finasteride [Proscar] 5 mg PO DAILY 07/15/14 Pramipexole Di-HCl [Mirapex] 2 mg PO 199907/15/14 Rivaroxaban [Xarelto] 20 mg PO DAILY 07/15/14 traMADol [Ultram] 150 mg PO QHS 07/15/14 Metformin HCl [Glucophage] 1,000 mg PO BIDCM 10/22/15 Metoprolol Succinate [Toprol Xl] 25 mg PO DAILY 03/10/17 flecainide 100 mg tablet 100 mg PO Q12H 08/26/17 lisinopril 40 mg tablet 20 mg PO QHS tab 08/26/17 Levomilnacipran HCl [Fetzima] 40 mg PO DAILY 10/10/17 Ergocalciferol [Vitamin D] 50,000 unit PO QMONTH 11/11/17 Gabapentin [Neurontin] 300 mg PO DAILY 11/11/17 Tamsulosin HCl [Flomax] 0.4 mg PO QHS 11/11/17 Glimepiride [Amaryl] 3 mg PO BID #0 tab 11/12/17 Simvastatin [Zocor] 40 mg PO QHS #0 11/12/17 Primary Care Physician: Hermilo Arellano Chi, MD [Primary Care Provider] - Please follow up with your Primary Care Physician in: in 2 weeks Please Follow Up With: Preeti Mullen MD When: FOR Stroke and Mild cognitve impairment
--- NOTE | 2017-11-12 13:53 | PCM.DC.SUM ---
Discharge Date and Diagnosis Date of Admission: 11/11/17 Date of Discharge: 11/12/17 - Primary Discharge Diagnosis Active and Suspected Problems (Last Updated 08/25/17 @ 16:05 by JOSEPHINE Aguilar) Fall (Acute) Loss of equilibrium (Acute) Near syncope (Acute) - Secondary Discharge Diagnosis Chronic Problems (Last Updated 08/25/17 @ 16:05 by JOSEPHINE Aguilar) De Quervain's tenosynovitis (Chronic) Body mass index (BMI) of 39.0-39.9 in adult (Chronic) Diabetes mellitus (Chronic) Paroxysmal atrial fibrillation (Chronic) ablation 2005, DCCV 2012,2014,2016 BPH (benign prostatic hyperplasia) (Chronic) History of renal calculi (Chronic) Cardiac dysrhythmia (Chronic) Dyslipidemia (Chronic) HTN (hypertension) (Chronic) Obstructive sleep apnea (Chronic) 10cm pressure RLS (restless legs syndrome) (Chronic) History of prior ablation treatment (Chronic) 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 fib/flutter status post ablation, diabetes mellitus type 2, hypertension was admitted to ER on PCU floor with sudden onset of dizziness, vertigo and near fall consistent with a diagnosis of near syncope. His previous echo in March 2015 shows normal LV size with normal systolic function, EF 60%. Mild TR and AR. Left atrium mildly enlarged. Normal right atrium. In ED, EKG shows normal sinus rhythm 66 bpm, with no significant change from previous EKG of September 2017. In ED, blood pressure was high at 170/90. Initial workup in ER was unremarkable. Chest x-ray shows prominence of pulmonary hilar arteries with peripheral pulmonary vascular congestion. 1. 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 Serial troponin enzymes were negative. MRI brain does not show acute infarct. MRA neck showed no evidence of hemodynamically significant stenosis or occlusion. Normal MRA of head. Mild atherosclerotic disease more pronounced in the left. 2D echo shows normal LV size with systolic function EF 60% with moderate concentric LVH. No evidence of diastolic dysfunction or regional wall motion abnormality. Mild eccentric MR. orthostatic vital was negative and probably falls as it showed increasing blood pressure on standing from lying position. No change in heart rate. Patient was seen by the neurologist and recommended neurocognitive evaluation and outpatient for evaluation of dementia. Follow-up neurology in 4 weeks. 2. Near fall with loss of equilibrium: Acute stroke ruled out 3. Coronary artery disease, paroxysmal A. fib/further status post cardiac ablation: Continue home medication. Currently patient is normal sinus rhythm after ablation. Continue Xarelto. 4. Hypertension: His blood pressure was high 170/60 in ER but recent is 109/90. Hold antihypertensive medications. Dyslipidemia: Patient is on low-dose of simvastatin 20 mg daily. Fasting lipid profile shows triglyceride 213. Simvastatin increased to 40 mg daily. Liver profile shows AST 42, ALT 62, not significant for statin related myositis. 5. Diabetes mellitus type 2, complicated with diabetic neuropathy: Accu-Chek before meals and at bedtime and cover with NovoLog sliding scale. Blood sugar is fairly controlled. Mild cognitive deficit: As per the , patient is recently more forgetful for last 6 months. B12 level is low; 290. TSH and ESR normal. Patient had 1 dose of vitamin B12 1000 mcg subcutaneous here and discharged on 1000 mcg daily. Multiple other comorbidities including chronic dizziness, vertigo, tinnitus exact etiology unclear, chronic degenerative joint disease, morbid obesity, BPH, dyslipidemia, obstructive sleep apnea, restless leg syndrome history of renal calculi: Stable. Home medication reconciliation done. DVT prophylaxis: On Xarelto Discharge medication reconciliation done. Follow-up instructions given. Total time spent, exact 32 minutes on discharge meds reconciliation, examination, review of imaging and blood test and discussion with the patient on follow-up instructions. Discharge Activity: May Not Drive Home Medications: Medications to take at Discharge Finasteride [Proscar] 5 mg PO DAILY 07/15/14 Pramipexole Di-HCl [Mirapex] 2 mg PO 199907/15/14 Rivaroxaban [Xarelto] 20 mg PO DAILY 07/15/14 traMADol [Ultram] 150 mg PO QHS 07/15/14 Metformin HCl [Glucophage] 1,000 mg PO BIDCM 10/22/15 Metoprolol Succinate [Toprol Xl] 25 mg PO DAILY 03/10/17 flecainide 100 mg tablet 100 mg PO Q12H 08/26/17 lisinopril 40 mg tablet 20 mg PO QHS tab 08/26/17 Levomilnacipran HCl [Fetzima] 40 mg PO DAILY 10/10/17 Ergocalciferol [Vitamin D] 50,000 unit PO QMONTH 11/11/17 Gabapentin [Neurontin] 300 mg PO DAILY 11/11/17 Tamsulosin HCl [Flomax] 0.4 mg PO QHS 11/11/17 Cyanocobalamin (Vitamin B-12) [B-12] 1,000 mcg PO DAILY #30 tab 11/12/17 Glimepiride [Amaryl] 3 mg PO BID #0 tab 11/12/17 Simvastatin [Zocor] 40 mg PO QHS #0 11/12/17 Following Prescrptions Were Given to Patient: Cyanocobalamin (Vitamin B-12) [B-12] 1,000 mcg PO DAILY #30 tab Primary Care Physician: Hermilo Arellano Chi, MD [Primary Care Provider] - Please follow up with your Primary Care Physician in: in 2 weeks Please Follow Up With: Preeti Mullen MD When: FOR Stroke and Mild cognitve impairment Medical Necessity - Tobacco Use Smoking Status: Former smoker Meaningful Use Info Meaningful Use Diagnoses (Choose all that apply): None applicable Code Visit OBSV E&M: 02737 Observation care discharge
--- NOTE | 2017-11-12 14:10 | CASEMGMT ---
TIMOTHY LOPEZ was notified by physician he was waiting to discharge patient until PT/OT eval was complete. TIMOTHY LOPEZ reviewed PT/OT documentation and note recommendations are for Would benefit from further skilled therapy. TIMOTHY LOPEZ met with patient and patient's spouse to discuss transition planning. TIMOTHY LOPEZ presented option for HHC with intermediate and PT/OT, and requirements for patient to be homebound, and the option for outpatient therapy. Spouse and patient would like outpatient therapy. TIMOTHY LOPEZ asked where patient would like to go for therapy, and they picked [facility]. TIMOTHY LOPEZ faxed referral for home health to [facility]. Patient and spouse aware. Disposition Plan: Home with outpatient PT/OT and with follow-up plans in place. NICOLASA Alvarenga, RN-BC, CCM
[2017-11-12] MEDS: Cyanocobalamin (B12) 1,000 MCG/ML Vial 1000 MCG SC (15:32)
== END 2017-11-12 15:45 | disposition home or self-care (01) ==
LOC: ED 11:24 → PCU 11:49
PROVIDERS: Psychiatry & Neurology Neurology; Admitting Provider Internal Medicine; Emergency Provider Emergency Medicine; Family Provider Family Medicine Geriatric Medicine; PCP Family Medicine Geriatric Medicine; Visit Provider Internal Medicine
DX: R55 Syncope and collapse (principal); I48.0 Paroxysmal atrial fibrillation; N40.0 Benign prostatic hyperplasia without lower urinary tract symptoms; E78.5 Hyperlipidemia, unspecified; G47.33 Obstructive sleep apnea (adult) (pediatric); E11.42 Type 2 diabetes mellitus with diabetic polyneuropathy; G25.81 Restless legs syndrome; I25.10 Atherosclerotic heart disease of native coronary artery without angina pectoris; I10 Essential (primary) hypertension; E66.01 Morbid (severe) obesity due to excess calories; M65.4 Radial styloid tenosynovitis [de Quervain]; H93.13 Tinnitus, bilateral; Z68.38 Body mass index [BMI] 38.0-38.9, adult; Z71.3 Dietary counseling and surveillance; Z87.442 Personal history of urinary calculi; Z79.899 Other long term (current) drug therapy; Z79.84 Long term (current) use of oral hypoglycemic drugs; Z79.01 Long term (current) use of anticoagulants; Z87.891 Personal history of nicotine dependence
CPT/HCPCS: 36415; 70450; 70544; 70549; 70551; 71045; 80048; 80061; 80076; 82607; 82962; 83036; 84443; 84484; 85025; 85610; 85652; 85730; 93005; 93306; 96360; 96361; 96372; 97162; 97166; 99218; 99285; A9585; J7030; A4216; G0378; G8978; G8979; G8987; G8988; J3420

== ENCOUNTER → 2017-12-08 12:56 | Outpatient (CLI) | payer MEDICARE, BC, SELFPAY ==
[2017-12-08 13:53] LABS: Protein, Urine (Random) 193.1 mg/dL (<11.9); Protein:Creat Ratio 1650 mg/g CRE (0-200)
[2017-12-08 14:05] LABS: Albumin, Serum 3.5 g/dL (3.2-5.0); BUN 22 mg/dL (7-18); Chloride 103 mmol/L (98-107); EST Glomerular Filtration Rate 69 mL/min (>60); Est Glom Filt Rate - Afr Amer 83 mL/min (>60); Glucose 206 mg/dL (74-106); Phosphorus 2.5 mg/dL (2.5-4.9); Potassium 4.3 mmol/L (3.5-5.1); Sodium Level 139 mmol/L (136-145)
== END ==
PROVIDERS: Family Provider Internal Medicine; PCP Internal Medicine; Visit Provider Internal Medicine Nephrology
DX: E11.22 Type 2 diabetes mellitus with diabetic chronic kidney disease (principal); N18.3 Chronic kidney disease, stage 3 (moderate); E11.21 Type 2 diabetes mellitus with diabetic nephropathy
CPT/HCPCS: 36415; 80069; 82570; 84156

== ENCOUNTER → 2017-12-10 10:08 | Outpatient (CLI) | payer MEDICARE, BC, SELFPAY | PROVIDERS: Family Provider Internal Medicine; PCP Internal Medicine; Visit Provider Internal Medicine | DX: K92.2 Gastrointestinal hemorrhage, unspecified (principal) | CPT/HCPCS: 82274 ==

== ENCOUNTER → 2017-12-13 10:38 | Outpatient (CLI) | payer MEDICARE, BC, SELFPAY ==
--- NOTE | 2017-12-13 10:57 | RAD_ITS ---
STUDY: X-RAY - PELVIS REASON FOR EXAM: Male, 77 years old. 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 COMPARISON: 07/30/2017 FINDINGS: There is a non-specific bowel gas pattern. There are multiple calcified phleboliths. There are no large asymmetric osteophytes noted along the lower lumbar spine. There are no erosive changes involving the sacroiliac joints or widening. There is mild sclerosis. Normal visualized bilateral superior and inferior pubic rami. Normal pubic symphysis. Normal ischial tuberosities. Normal visualized right femoral head. There is osteoarthritic spur formation of the right acetabular rim. There is mild articular joint space narrowing of the right hip. Normal visualized left femoral head. There is osteoarthritic spur formation of the left acetabular rim. There is mild articular joint space narrowing of the left hip. RAD/Pelvis 1 or 2 Views IMPRESSION: Degenerative changes. No radiographic characteristics for psoriatic arthropathy. There is no acute displaced fracture or dislocation. Electronically Signed: Madai Davis MD at 2:47 EDT , Service support ,
[2017-12-13 12:03] LABS: Absolute Lymphocyte Count 1.34 X10^3/ul (0.83-4.51); Absolute Neutrophil Count 5.1 X10^3/uL (2.0-7.7); Basophil# 0.04 X10^3/uL; Basophil% 0.6 % (0-1); Eosinophil# 0.16 X10^3/uL; Eosinophils% 2.2 % (0-5); Hematocrit 41.3 % (40-54); Hemoglobin 13.4 g/dl (13.0-16.5); Lymphocyte # 1.34 X10^3/ul (4.0); Lymphocyte % 18.5 % (19-41); Mean Corp Hgb Conc 32.4 g/gl (32-36); Mean Corpuscular Hgb 30.8 pg (27.0-32.0); Mean Corpuscular Volume 94.9 fL (80-94); Mean Platelet Vol. 10.1 fl (6.2-12.0); Monocyte# 0.63 X10^3/uL; Monocyte% 8.7 % (0-10); Neutrophil # 5.06 X10^3/uL (2.7-7.7); Neutrophil % 69.6 % (47-70); Platelet Count 189 K/mm3 (150-450); RBC Distribution Width CV 13.1 % (11.6-14.6); RBC Distribution Width SD 43.6 fl (35.1-43.9); Red Blood Count 4.35 M/mm3 (4.6-6.2); White Blood Count 7.3 K/mm3 (4.4-11.0)
[2017-12-13 12:04] LABS: POSITIVE COUNT NO; POSITIVE DIFFERENTIAL NO; POSITIVE MORPHOLOGY NO
[2017-12-13 12:11] LABS: Erythrocyte Sedimentation Rate 17 mm/hr (0-20)
[2017-12-13 12:30] LABS: ALB/GLOB Ratio 1.1 RATIO (0.9-2.4); AST(SGOT) 31 U/L (15-37); Alanine Aminotransfer ALT/SGPT 41 U/L (16-61); Albumin, Serum 3.6 g/dL (3.2-5.0); Alkaline Phosphatase 64 U/L (45-117); Anion Gap 8 (5-15); BUN 24 mg/dL (7-18); BUN/Creat Ratio 18.2 RATIO (10-20); CRP < 2.90 mg/L (0.0-3.0); Calcium,Total 8.7 mg/dL (8.5-10.1); Chloride 103 mmol/L (98-107); Creatinine, Serum 1.32 mg/dL (0.70-1.30); EST Glomerular Filtration Rate 56 mL/min (>60); Est Glom Filt Rate - Afr Amer 67 mL/min (>60); Globulin 3.3 g/dL (2.2-4.2); Glucose 337 mg/dL (74-106); Potassium 4.2 mmol/L (3.5-5.1); Protein, Total 6.9 g/dL (6.4-8.2); Rheumatoid Factor < 10.0 IU/mL (<15); Sodium Level 136 mmol/L (136-145)
[2017-12-15 16:54] LABS: ANTINUCLEAR ANTIBODIES DIRECT Negative (Negative)
[2017-12-18 12:09] LABS: QNTFERON TB Ag Minus Nil Value 0.01 IU/mL (.); QNTFERON TB Ag Value 0.05 IU/mL (.); QNTFERON TB Mitogen Value > 10.00 IU/mL (.); QNTFERON TB Nil Value 0.04 IU/mL (.)
[2017-12-18 12:17] LABS: CCP IgG Antibodies 7 units (0-19); HEPATITIS B SURFACE AG Negative (Negative); HLA B27 Negative (.); Hep B Surface Antibodies Non Reactive (.); Hep C Antibodies <0.1 s/co ratio (0.0-0.9); QNTIFERON TB Gold Negative (Negative)
== END ==
PROVIDERS: Family Provider Internal Medicine; PCP Internal Medicine; Visit Provider Internal Medicine Rheumatology
DX: L40.59 Other psoriatic arthropathy (principal); L40.8 Other psoriasis; M21.40 Flat foot [pes planus] (acquired), unspecified foot; M17.0 Bilateral primary osteoarthritis of knee; I48.92 Unspecified atrial flutter; I10 Essential (primary) hypertension; E11.9 Type 2 diabetes mellitus without complications; N20.0 Calculus of kidney; G25.81 Restless legs syndrome; G47.33 Obstructive sleep apnea (adult) (pediatric); Z86.718 Personal history of other venous thrombosis and embolism
CPT/HCPCS: 36415; 72170; 80053; 81374; 85025; 85652; 86038; 86140; 86200; 86431; 86480; 86706; 86803; 87340

== ENCOUNTER 2017-12-28 12:38 | Emergency (ER) | payer MEDICARE, BC, SELFPAY ==
[2017-12-28 12:39] VITALS: BP 145/98; PULSE 71; RESP 18; TEMP 36.6; O2SAT 98; BMI 37.5
--- NOTE | 2017-12-28 13:12 | EKG12_ITS ---
Test Reason : HYPERGLYCEMIA Blood Pressure : / mmHG Vent. Rate : 063 BPM Atrial Rate : 063 BPM P-R Int : 000 ms QRS Dur : 092 ms QT Int : 442 ms P-R-T Axes : 000 046 060 degrees QTc Int : 452 ms Normal sinus rhythm Nonspecific ST and T wave abnormality Abnormal ECG Confirmed by JORDIN DUNCAN, SYBIL ([id number]), senior technical editor GORGE MARTIN ([id number]) on 12/30/2017 1:27:50 PM Referred By: MYRON Confirmed By:SYBIL BRENNER MD
[2017-12-28 13:15] LABS: Bedside Glucose 286 mg/dL (70-110)
[2017-12-28 13:22] LABS: Absolute Lymphocyte Count 1.38 X10^3/ul (0.83-4.51); Basophil# 0.03 X10^3/uL; Basophil% 0.5 % (0-1); Eosinophil# 0.15 X10^3/uL; Eosinophils% 2.5 % (0-5); Hematocrit 36.6 % (40-54); Hemoglobin 11.8 g/dl (13.0-16.5); Lymphocyte # 1.38 X10^3/ul (4.0); Lymphocyte % 22.8 % (19-41); Mean Corp Hgb Conc 32.2 g/gl (32-36); Mean Corpuscular Hgb 30.2 pg (27.0-32.0); Mean Corpuscular Volume 93.6 fL (80-94); Mean Platelet Vol. 9.6 fl (6.2-12.0); Monocyte# 0.49 X10^3/uL; Monocyte% 8.1 % (0-10); Neutrophil # 3.99 X10^3/uL (2.7-7.7); Neutrophil % 65.8 % (47-70); Platelet Count 168 K/mm3 (150-450); RBC Distribution Width CV 13.2 % (11.6-14.6); RBC Distribution Width SD 44.8 fl (35.1-43.9); Red Blood Count 3.91 M/mm3 (4.6-6.2); White Blood Count 6.1 K/mm3 (4.4-11.0)
[2017-12-28 13:23] LABS: POSITIVE COUNT NO; POSITIVE DIFFERENTIAL NO; POSITIVE MORPHOLOGY NO
[2017-12-28 13:28] VITALS: O2SAT 96
[2017-12-28] MEDS: 0.9% Normal Saline 1,000 ML 150 ML IV (13:29)
--- NOTE | 2017-12-28 13:35 | RAD_ITS ---
STUDY: X-RAY CHEST REASON FOR EXAM: Male, 77 years old. Chest pain TECHNIQUE: Single AP portable view of the chest. COMPARISON: November 11, 2017 FINDINGS: There is less elevation of the right hemidiaphragm. There is new right basilar atelectasis. There is no demonstrated pleural abnormality. Normal size heart. Normal mediastinum and lakhwinder. Normal visualized pulmonary arteries. There is atherosclerotic calcification of the aortic arch with tortuosity. Normal visualized thoracic spine. Normal visualized ribs, clavicles, and shoulders. There is no demonstrated abnormality of the visualized soft tissue structures of the upper abdomen. RAD/Chest 1 View (Portable) IMPRESSION: There is less elevation of the right hemidiaphragm. There is new right basilar atelectasis. Electronically Signed: Whitney Field MD at 14:04 EDT , Service support ,
[2017-12-28 13:41] LABS: AST(SGOT) 39 U/L (15-37); Alanine Aminotransfer ALT/SGPT 49 U/L (16-61); Alkaline Phosphatase 57 U/L (45-117); Anion Gap 8 (5-15); BUN 24 mg/dL (7-18); BUN/Creat Ratio 21.6 RATIO (10-20); Bilirubin, Direct 0.13 mg/dL (0.00-0.30); Calcium,Total 8.5 mg/dL (8.5-10.1); Chloride 105 mmol/L (98-107); Creatinine, Serum 1.11 mg/dL (0.70-1.30); EST Glomerular Filtration Rate 68 mL/min (>60); Est Glom Filt Rate - Afr Amer 82 mL/min (>60); Globulin 3.2 g/dL (2.2-4.2); Glucose 271 mg/dL (74-106); Lipase 564 U/L (73-393); Potassium 4.4 mmol/L (3.5-5.1); Protein, Total 6.2 g/dL (6.4-8.2); Sodium Level 140 mmol/L (136-145)
--- NOTE | 2017-12-28 15:01 | ED.VISSUMM ---
- ER Visit Summary Date of Service: 12/28/17 Chief Complaint: [] Sugar of 370 History of Present Illness: The patient is a 77 M [] patient reports she has diabetes orally controlled medications metformin and Januvia he reports this morning after eating breakfast his blood sugar was 370 he came in for evaluation. He has not been ill with. He has had no nausea vomiting fever no chest pain abdominal pain #6 or paresthesias he states for the most part has been doing well but he feels that his blood sugars been very labile he tries to keep it around 250. He did report that today he ate cornmeal that he fried he tries to stick to a diabetic diet his bowel bladder habits been normal, he has been noted to have some hematuria he is currently under care of Dr. Vazquez with urology who is evaluating him for that that is not a complaint of is now Physicians are ranging from his see a dietitian and manager of employee relations for further blood pressure management options he is not sure when her appointments scheduled for Physical Examination: [] He is in no distress his vital signs are within normal range head neck chest unremarkable lungs are clear the abdomen soft nontender obese upper lower extremities unremarkable neurologically he is awake moving all 4 Test Results: [] Emergency Department Course and Treatment: [] IV fluids his blood sugars 271 the rest of his labs are unremarkable clinically he feels well is doing better after IV fluids he is comfortable discharge home of explained to him he should stay on all of his diabetic medications stick to a more stringent diabetic diet keep the appointments with the dietitian's manager of employee relations and otherwise follow-up with his doctors and return for change in symptoms he agrees Treatment Plan: [] Disposition: [] Home stable Impression: [] Hyperglycemia, history of diabetes mellitus This note was generated with [employer] dictation software. It may contain incorrect words, spelling, and punctuation that were not noted in review of the chart prior to signing ED Disposition - Plan for ED Patient: Chief Complaint: Hyperglycemia Referrals: Tosha Shrestha MD [Primary Care Provider] -
--- NOTE | 2017-12-28 15:04 | ED.DCSUM_ITS ---
- ER Visit Summary Date of Service: 12/28/17 Chief Complaint: [] Sugar of 370 History of Present Illness: The patient is a 77 M [] patient reports she has diabetes orally controlled medications metformin and Januvia he reports this morning after eating breakfast his blood sugar was 370 he came in for evaluation. He has not been ill with. He has had no nausea vomiting fever no chest pain abdominal pain #6 or paresthesias he states for the most part has been doing well but he feels that his blood sugars been very labile he tries to keep it around 250. He did report that today he ate cornmeal that he fried he tries to stick to a diabetic diet his bowel bladder habits been normal, he has been noted to have some hematuria he is currently under care of Dr. Vazquez with urology who is evaluating him for that that is not a complaint of is now Physicians are ranging from his see a dietitian and endbander for further blood pressure management options he is not sure when her appointments scheduled for Physical Examination: [] He is in no distress his vital signs are within normal range head neck chest unremarkable lungs are clear the abdomen soft nontender obese upper lower extremities unremarkable neurologically he is awake moving all 4 Test Results: [] Emergency Department Course and Treatment: [] IV fluids his blood sugars 271 the rest of his labs are unremarkable clinically he feels well is doing better after IV fluids he is comfortable discharge home of explained to him he should stay on all of his diabetic medications stick to a more stringent diabetic diet keep the appointments with the dietitian's endbander and otherwise follow- up with his doctors and return for change in symptoms he agrees Treatment Plan: [] Disposition: [] Home stable Impression: [] Hyperglycemia, history of diabetes mellitus This note was generated with [employer] dictation software. It may contain incorrect words, spelling, and punctuation that were not noted in review of the chart prior to signing ED Disposition - Plan for ED Patient: Chief Complaint: Hyperglycemia Referrals: Tosha Shrestha MD [Primary Care Provider] -
--- NOTE | 2017-12-28 15:04 | ED.DEP ---
ED Disposition - Plan for ED Patient: Chief Complaint: Hyperglycemia Instructions: ED Hyperglycemia Diabetic Referrals: Tosha Shrestha MD [Primary Care Provider] -
[2017-12-28 15:42] LABS: Bacteria 0 SEEN /hpf (None Seen); Mucous, Urine 0 SEEN /hpf (<or=2+); Squamous Epithelial Cells - UA 0 SEEN /hpf (0-5); White Blood Cells 0 SEEN /hpf (0-5)
[2017-12-28 15:46] VITALS: BP 145/70; PULSE 67; RESP 20; O2SAT 98
[2017-12-28 15:59] LABS: Color, Urine Yellow (Yellow); Glucose, Dipstick 1000 mg/dl (Normal); Ketone-Dipstick Negative (Negative); Leukocyte Esterase-Dipstick Negative /ul (Negative); Nitrite-Dipstick Negative (Negative); Occult Blood-Urine 250 /ul (Negative); Protein-Dipstick 100 mg/dl (Negative); Specific Gravity, Urine 1.025 (1.002-1.030); Urine Bilirubin Dipstick Negative (Negative); Urine Clarity Clear (Clear); Urine Urobilinogen Normal (Normal)
[2017-12-28 16:04] LABS: Red Blood Cells-Urine 10-25 SEEN /hpf (0-5)
== END 2017-12-28 15:47 | disposition home or self-care (01) ==
LOC: ED 14:05
PROVIDERS: Emergency Provider Emergency Medicine; Family Provider Internal Medicine; PCP Internal Medicine
DX: E11.65 Type 2 diabetes mellitus with hyperglycemia (principal); Z79.84 Long term (current) use of oral hypoglycemic drugs
CPT/HCPCS: 71045; 80048; 80076; 81001; 82962; 83690; 84484; 85025; 87086; 93005; 96360; 96361; 99284; J7030; J7040; A4216

== ENCOUNTER 2017-12-30 16:05 | Outpatient (RCR) | payer MEDICARE, BC, SELFPAY | END 2018-01-15 23:59 | LOC: DC 16:05 | PROVIDERS: Family Provider Internal Medicine; PCP Internal Medicine; Visit Provider Internal Medicine | DX: E11.42 Type 2 diabetes mellitus with diabetic polyneuropathy (principal); Z71.3 Dietary counseling and surveillance ==

== ENCOUNTER 2018-01-07 16:14 | Emergency (ER) | payer MEDICARE, BC, SELFPAY ==
[2018-01-07 16:15] VITALS: BP 123/44; PULSE 71; RESP 15; TEMP 36.6; O2SAT 100; BMI 35.0
[2018-01-07 16:23] VITALS: BP 140/59; PULSE 64; RESP 24; O2SAT 98
--- NOTE | 2018-01-07 17:01 | EKG12_ITS ---
Test Reason : Blood Pressure : / mmHG Vent. Rate : 061 BPM Atrial Rate : 061 BPM P-R Int : 218 ms QRS Dur : 104 ms QT Int : 448 ms P-R-T Axes : 000 043 051 degrees QTc Int : 450 ms Sinus rhythm with 1st degree A-V block Otherwise normal ECG Confirmed by RIVKA DUNCAN, RAHUL ([id number]), school photograph editor GORGE MARTIN ([id number]) on 01/09/2018 10:54:51 AM Referred By: STEVE Confirmed By:RAHUL TINEO MD
--- NOTE | 2018-01-07 17:30 | RAD_ITS ---
STUDY: X-RAY CHEST REASON FOR EXAM: Male, 77 years old. Chest pain TECHNIQUE: 2 views COMPARISON: Prior chest radiograph of December 28, 2017. Prior PA and lateral chest December 31, 2016 FINDINGS: The lungs are clear and expanded. There is no demonstrated pleural abnormality. Normal size heart. Normal mediastinum and lakhwinder. Normal visualized pulmonary arteries. There is atherosclerotic calcification of the aortic arch with tortuosity. There are diffuse degenerative changes of the visualized thoracic spine. Normal visualized ribs, clavicles, and shoulders. There is no demonstrated abnormality of the visualized soft tissue structures of the upper abdomen. RAD/Chest PA and Lateral IMPRESSION: No acute cardiopulmonary findings or changes. Electronically Signed: Meghann Castro MD at 17:58 EDT , Service support ,
[2018-01-07 17:34] LABS: Absolute Neutrophil Count 3.5 X10^3/uL (2.0-7.7); Basophil# 0.02 X10^3/uL; Basophil% 0.3 % (0-1); Eosinophil# 0.16 X10^3/uL; Eosinophils% 2.6 % (0-5); Hematocrit 37.3 % (40-54); Lymphocyte % 30.4 % (19-41); Mean Corp Hgb Conc 32.2 g/gl (32-36); Mean Corpuscular Hgb 30.2 pg (27.0-32.0); Mean Corpuscular Volume 93.7 fL (80-94); Mean Platelet Vol. 9.6 fl (6.2-12.0); Monocyte# 0.65 X10^3/uL; Monocyte% 10.4 % (0-10); Platelet Count 182 K/mm3 (150-450); RBC Distribution Width CV 13.2 % (11.6-14.6); RBC Distribution Width SD 45.5 fl (35.1-43.9); Red Blood Count 3.98 M/mm3 (4.6-6.2); White Blood Count 6.3 K/mm3 (4.4-11.0)
[2018-01-07 17:41] LABS: POSITIVE COUNT NO; POSITIVE DIFFERENTIAL NO; POSITIVE MORPHOLOGY NO
[2018-01-07 17:47] LABS: Anion Gap 6 (5-15); BUN 29 mg/dL (7-18); BUN/Creat Ratio 24.8 RATIO (10-20); Calcium,Total 9.1 mg/dL (8.5-10.1); Chloride 104 mmol/L (98-107); Creatinine, Serum 1.17 mg/dL (0.70-1.30); EST Glomerular Filtration Rate 64 mL/min (>60); Est Glom Filt Rate - Afr Amer 77 mL/min (>60); Estimated Creatinine Clearance 58.81 ml/min; Glucose 229 mg/dL (74-106); Potassium 4.7 mmol/L (3.5-5.1); Sodium Level 136 mmol/L (136-145)
[2018-01-07 18:18] VITALS: BP 136/59; PULSE 64; RESP 16; O2SAT 100
--- NOTE | 2018-01-07 18:38 | ED.VISSUMM ---
- ER Visit Summary Date of Service: 01/07/18 Chief Complaint: Abnormal blood pressure History of Present Illness: The patient is a 77 M who presents with abnormal blood pressures that have been constant today. Patient states his blood pressure at home was up to 130 systolic today. Patient states he had an episode of pain in his left upper chest at that time. She describes the pain as sharp. Patient states the pain only lasted a few seconds. Patient admits to some lightheadedness. Patient denies any diaphoresis. Patient does admit to some weakness. Patient also admits to some intermittent hematuria. Patient states he did have some shortness of breath with the pain but this also lasted only a few seconds. Physical Examination: Vital signs are stable. Patient blood pressure here was 140/59. Patient is afebrile. Patient is in no acute distress. Oral mucosa is pink and moist. Neck is supple. Trachea is midline. Is no JVD noted. Heart was regular rate and rhythm. Lungs are clear and equal bilaterally. There is good respiratory effort noted. Abdomen is soft. Bowel sounds are normal. There is no tenderness. Cranial nerves II through XII are intact. There are no focal motor or sensory deficits noted. The remaining physical exam is within normal limits. Test Results: EKG showed normal sinus rhythm with first-degree AV block with a rate of 61. There are no acute ST or T-wave changes noted. Chest x-ray does not show any acute cardiopulmonary process. CBC, basic metabolic profile, and troponin were obtained were essentially within normal limits. Glucose was slightly elevated at 229. BUN was also slightly elevated at 29. Hemoglobin was 12.0. Emergency Department Course and Treatment: Patient was monitored here in the emergency department his blood pressure remained stable. Patient was advised that his laboratory testing is within normal limits. Patient was instructed to continue to monitor his blood pressures and follow-up with his primary care physician. Patient understood and was agreeable with the plan. All questions were answered. Disposition: Discharge home Impression: Hypertension This note was generated with [employer] dictation software. It may contain incorrect words, spelling, and punctuation that were not noted in review of the chart prior to signing ED Disposition - Plan for ED Patient: Disposition: Home or Assisted Living Chief Complaint: Hypertension Diagnosis: Hypertension Instructions: ED HTN Established Referrals: Tosha Shrestha MD [Primary Care Provider] -
[2018-01-07 19:04] VITALS: BP 132/64; PULSE 64; RESP 16; O2SAT 98
--- NOTE | 2018-01-07 19:05 | ED.RN ---
REVIEWED D/C INSTRUCTIONS, FOLLOW UP CARE, AND S/S THAT WOULD WARRANT A RETURN TO THE ED WITH PT. PT VERBALIZED AN UNDERSTANDING AND DENIES FURTHER QUESTIONS FOR THIS RN. PT SKIN P/W/D, RESP EVEN AND UNLABORED, PT A&O X 3, NO DISTRESS NOTED. PT ASSISTED OUT OF ED IN WHEELCHAIR.
== END 2018-01-07 19:08 | disposition home or self-care (01) ==
PROVIDERS: Emergency Provider Emergency Medicine; Family Provider Internal Medicine; PCP Internal Medicine
DX: I10 Essential (primary) hypertension (principal); N40.0 Benign prostatic hyperplasia without lower urinary tract symptoms; Z86.718 Personal history of other venous thrombosis and embolism; Z79.01 Long term (current) use of anticoagulants; Z79.899 Other long term (current) drug therapy
CPT/HCPCS: 71046; 80048; 84484; 85025; 93005; 99283; A4216

== ENCOUNTER 2018-01-14 09:38 | Outpatient (RCR) | payer MEDICARE, BC, SELFPAY | END 2018-01-15 23:59 | LOC: DC 09:38 | PROVIDERS: Family Provider Internal Medicine; PCP Internal Medicine; Visit Provider Internal Medicine | DX: E11.42 Type 2 diabetes mellitus with diabetic polyneuropathy (principal); Z71.3 Dietary counseling and surveillance | CPT/HCPCS: 97802; G0108 ==

== ENCOUNTER 2018-01-26 09:47 | Outpatient (RCR) | payer MEDICARE, BC, SELFPAY ==
--- NOTE | 2018-01-26 09:47 | DT_ITS ---
This patient was seen during an EMR downtime January 19, 2018 - January 26, 2018. This patient may have a combination of paper and electronic documentation or all paper documentation. All documentation is viewable within the e-chart portion of [facility] for each patient visit.
== END 2018-02-14 23:59 ==
LOC: DC 09:47
PROVIDERS: Family Provider Internal Medicine; PCP Internal Medicine; Visit Provider Internal Medicine
DX: E11.42 Type 2 diabetes mellitus with diabetic polyneuropathy (principal); Z71.3 Dietary counseling and surveillance
CPT/HCPCS: 97803

== ENCOUNTER → 2018-02-02 13:54 | Outpatient (CLI) | payer MEDICARE, BC, SELFPAY ==
[2018-02-02 16:16] LABS: ALB/GLOB Ratio 0.9 RATIO (0.9-2.4); AST(SGOT) 38 U/L (15-37); Alanine Aminotransfer ALT/SGPT 66 U/L (16-61); Albumin, Serum 3.3 g/dL (3.2-5.0); Alkaline Phosphatase 76 U/L (45-117); Anion Gap 9 (5-15); BUN 24 mg/dL (7-18); BUN/Creat Ratio 20.2 RATIO (10-20); Calcium,Total 9.4 mg/dL (8.5-10.1); Chloride 104 mmol/L (98-107); Creatinine, Serum 1.19 mg/dL (0.70-1.30); EST Glomerular Filtration Rate 63 mL/min (>60); Est Glom Filt Rate - Afr Amer 76 mL/min (>60); Globulin 3.7 g/dL (2.2-4.2); Glucose 263 mg/dL (74-106); Potassium 4.7 mmol/L (3.5-5.1); Sodium Level 139 mmol/L (136-145)
== END ==
PROVIDERS: Family Provider Internal Medicine; PCP Internal Medicine; Visit Provider Internal Medicine Rheumatology
DX: L40.59 Other psoriatic arthropathy (principal); L40.8 Other psoriasis; M21.40 Flat foot [pes planus] (acquired), unspecified foot; M17.0 Bilateral primary osteoarthritis of knee
CPT/HCPCS: 36415; 80053

== ENCOUNTER → 2018-02-17 10:32 | Outpatient (CLI) | payer MEDICARE, BC, SELFPAY ==
[2018-02-17 12:49] LABS: Hemoglobin A1c 9.3 % (4.2-6.3)
== END ==
PROVIDERS: Family Provider Internal Medicine; PCP Internal Medicine; Visit Provider Nurse Practitioner Family
DX: E11.42 Type 2 diabetes mellitus with diabetic polyneuropathy (principal); Z79.899 Other long term (current) drug therapy
CPT/HCPCS: 36415; 83036

== ENCOUNTER → 2018-02-25 08:26 | Outpatient (CLI) | payer MEDICARE, BC, SELFPAY ==
--- NOTE | 2018-02-25 08:30 | US_ITS ---
STUDY: ABDOMINAL ULTRASOUND - RIGHT UPPER QUADRANT REASON FOR VISIT: Male, 77 years old. Elevated liver enzymes TECHNIQUE: Ultrasound evaluation of the right upper quadrant was performed with real-time and static gilliland-scale imaging. TECHNICAL QUALITY: Adequate. COMPARISON: None. FINDINGS: Liver: The liver is enlarged and measures 19.8 cm. There is increased echogenicity consistent with fatty infiltration. The bile ducts are within normal limits. There is hepatic color flow. The direction of portal flow is hepatopetal. There is no demonstrated mass lesion. Gallbladder: Normal distended gallbladder. The gallbladder wall measures 2 mm. There is a negative sonographic Sifuentes's sign. There is no pericholecystic fluid. There are multiple echogenic structures within the gallbladder, consistent with multiple gallstones. Common Bile Duct (C.B.D.): The common bile duct measures 4 mm. Pancreas: Normal size of the head, body and tail of the pancreas. There is normal echogenicity of the pancreas. There is no demonstrated pancreatic mass or cyst. Right Kidney: Normal size of the right kidney. The right kidney measures 11.3 cm. Normal renal cortex. There is no demonstrated renal mass or cyst. There is a 4 mm nonobstructing right renal stone. There is no right hydronephrosis. US/Liver IMPRESSION: Enlarged, fatty liver. No focal hepatic masses identified. Cholelithiasis without sonographic evidence of acute cholecystitis. 4 mm nonobstructing right renal stone. Electronically Signed: Matti Blackwell, at 20:00 EDT Tel , Service support ,
== END ==
PROVIDERS: Family Provider Internal Medicine; PCP Internal Medicine; Visit Provider Internal Medicine Rheumatology
DX: K76.0 Fatty (change of) liver, not elsewhere classified (principal); K80.20 Calculus of gallbladder without cholecystitis without obstruction; N20.0 Calculus of kidney; R94.5 Abnormal results of liver function studies
CPT/HCPCS: 76705

== ENCOUNTER 2018-03-05 09:58 | Emergency (ER) | payer MEDICARE, BC, SELFPAY ==
[2018-03-05 09:59] VITALS: BP 134/63; PULSE 73; RESP 18; TEMP 36.5; O2SAT 100; BMI 35.9
--- NOTE | 2018-03-05 10:15 | RAD_ITS ---
STUDY: X-RAY CHEST REASON FOR EXAM: Male, 77 years old. Weakness. Shakiness. TECHNIQUE: Single AP portable view of the chest. COMPARISON: Comparison is made with prior examination dated January 07, 2018. FINDINGS: The lungs are clear and expanded. There is no demonstrated pleural abnormality. There is borderline cardiomegaly. Normal mediastinum and lakhwinder. Normal visualized pulmonary arteries. There is atherosclerotic calcification of the aortic arch with tortuosity. There are diffuse degenerative changes of the visualized thoracic spine. Normal visualized ribs, clavicles, and shoulders. There is no demonstrated abnormality of the visualized soft tissue structures of the upper abdomen. RAD/Chest 1 View (Portable) IMPRESSION: No acute abnormality is seen. Electronically Signed: Leo Fay MD at 10:44 EDT Tel [phone], Service support ,
--- NOTE | 2018-03-05 10:15 | EKG12_ITS ---
Test Reason : WEAKNESS Blood Pressure : / mmHG Vent. Rate : 068 BPM Atrial Rate : 068 BPM P-R Int : 200 ms QRS Dur : 098 ms QT Int : 434 ms P-R-T Axes : 085 055 066 degrees QTc Int : 461 ms Normal sinus rhythm Normal ECG Confirmed by JORDIN DUNCAN, SYBIL ([id number]), supervising film or videotape editor GORGE MARTIN ([id number]) on 03/06/2018 1:00:22 PM Referred By: STEVE Confirmed By:SYBIL BRENNER MD
--- NOTE | 2018-03-05 10:16 | ED.VISSUMM ---
- ER Visit Summary Date of Service: 03/05/18 Chief Complaint: Weakness History of Present Illness: The patient is a [address] Shrestha, Dr. Rogers, and Dr. Tanner. He reports that he has felt well the past 2 days. However, he has had difficulty sleeping at night due to his restless leg syndrome. States that last night he slept in his lift chair from 1-630 which is not unusual for him. However, this morning when he went to stand up he was very lightheaded. States that he felt very shaky and weak diffusely as well. Also complains of chills. Patient denies any fever or cold sweats. No sore throat, cough, chest pain, or shortness of breath. No abdominal pain. No nausea, vomiting, or diarrhea. His last bowel movement was today. He has had no blood in his stools or black tarry stools. No dysuria or frequency. No rash. No headache or numbness. He just complains of generalized weakness. Physical Examination: Vitals: Stable. Afebrile. General: Well-nourished and well-developed. Head: Normocephalic atraumatic. Neck: Supple, no lymphadenopathy. No JVD. Nontender. Cardiovascular: Regular rate and rhythm. No murmurs. Respiratory: No respiratory distress. Clear to auscultation bilaterally. Abdominal: Soft, nontender, nondistended, normal bowel sounds. No guarding, rebound, or peritoneal signs. Back: Nontender. Extremities: Nontender, 2+ pitting edema of his lower extremities bilaterally. Skin: Normal color, no rash. Neurologic: Alert and oriented ?3. Cranial nerves II through XII are intact. Normal strength and sensation. Psych: Depressed affect. Test Results: EKG is sinus at 60 with no acute changes. CBC is remarkable for an H&H 11.1 35.0. Chem-7 is more for glucose 171 BUN of 27. UA is normal. Chest x-ray shows borderline cardiomegaly and no acute disease. Emergency Department Course and Treatment: Patient is resting comfortably and without complaint. He does continue to complain of mild generalized weakness. Treatment Plan: Patient would like to go home. He will be discharged instructions to follow-up with his primary care physician 1-2 days if not improving. Return to the emergency department for any worsening symptoms. Disposition: To home in improved and stable condition. Impression: 1. Weakness, uncertain cause. This note was generated with [employer] dictation software. It may contain incorrect words, spelling, and punctuation that were not noted in review of the chart prior to signing ED Disposition - Plan for ED Patient: Chief Complaint: Weakness Instructions: ED Weakness [facility] Referrals: Tosha Shrestha MD [Primary Care Provider] - 1-2 Days if not improving
[2018-03-05 10:45] LABS: Absolute Lymphocyte Count 1.29 X10^3/ul (0.83-4.51); Absolute Neutrophil Count 4.7 X10^3/uL (2.0-7.7); Basophil# 0.03 X10^3/uL; Basophil% 0.4 % (0-1); Eosinophil# 0.13 X10^3/uL; Eosinophils% 1.9 % (0-5); Hemoglobin 11.1 g/dl (13.0-16.5); Lymphocyte # 1.29 X10^3/ul (4.0); Lymphocyte % 19.1 % (19-41); Mean Corp Hgb Conc 31.7 g/gl (32-36); Mean Corpuscular Hgb 30.2 pg (27.0-32.0); Mean Corpuscular Volume 95.1 fL (80-94); Mean Platelet Vol. 9.3 fl (6.2-12.0); Monocyte# 0.61 X10^3/uL; Neutrophil % 69.5 % (47-70); POSITIVE COUNT NO; POSITIVE DIFFERENTIAL NO; POSITIVE MORPHOLOGY NO; Platelet Count 199 K/mm3 (150-450); RBC Distribution Width CV 12.9 % (11.6-14.6); RBC Distribution Width SD 44.2 fl (35.1-43.9); Red Blood Count 3.68 M/mm3 (4.6-6.2); White Blood Count 6.8 K/mm3 (4.4-11.0)
[2018-03-05 11:01] LABS: BUN 27 mg/dL (7-18); Creatinine, Serum 1.17 mg/dL (0.70-1.30); Estimated Creatinine Clearance 57.11 ml/min; Glucose 171 mg/dL (74-106)
[2018-03-05 11:02] LABS: Anion Gap 7 (5-15); BUN/Creat Ratio 23.1 RATIO (10-20); Calcium,Total 8.7 mg/dL (8.5-10.1); Chloride 105 mmol/L (98-107); EST Glomerular Filtration Rate 64 mL/min (>60); Est Glom Filt Rate - Afr Amer 77 mL/min (>60); Potassium 4.4 mmol/L (3.5-5.1); Sodium Level 138 mmol/L (136-145)
[2018-03-05 12:14] LABS: Bacteria 0 SEEN /hpf (None Seen); Mucous, Urine 0 SEEN /hpf (<or=2+); Red Blood Cells-Urine 0 SEEN /hpf (0-5); White Blood Cells 0 SEEN /hpf (0-5)
[2018-03-05 12:21] VITALS: BP 123/60; PULSE 65; RESP 22; O2SAT 98
[2018-03-05 12:23] LABS: Color, Urine Yellow (Yellow); Glucose, Dipstick Normal (Normal); Ketone-Dipstick Negative (Negative); Leukocyte Esterase-Dipstick Negative /ul (Negative); Nitrite-Dipstick Negative (Negative); Occult Blood-Urine Negative /ul (Negative); Protein-Dipstick 100 mg/dl (Negative); Specific Gravity, Urine 1.015 (1.002-1.030); Urine Bilirubin Dipstick Negative (Negative); Urine Clarity Sl. Cloudy (Clear); Urine Urobilinogen Normal (Normal)
[2018-03-05 12:43] LABS: Squamous Epithelial Cells - UA 0-5 SEEN /hpf (0-5)
[2018-03-05 13:10] VITALS: BP 124/77; PULSE 59; RESP 16; O2SAT 98
== END 2018-03-05 13:11 | disposition home or self-care (01) ==
LOC: ED 10:52
PROVIDERS: Emergency Provider Emergency Medicine; Family Provider Internal Medicine; PCP Internal Medicine
DX: R53.1 Weakness (principal); I10 Essential (primary) hypertension; E78.00 Pure hypercholesterolemia, unspecified; I48.92 Unspecified atrial flutter; E11.40 Type 2 diabetes mellitus with diabetic neuropathy, unspecified; N40.0 Benign prostatic hyperplasia without lower urinary tract symptoms; G47.33 Obstructive sleep apnea (adult) (pediatric); G25.81 Restless legs syndrome; Z79.01 Long term (current) use of anticoagulants; Z79.84 Long term (current) use of oral hypoglycemic drugs; Z79.899 Other long term (current) drug therapy; Z87.891 Personal history of nicotine dependence
CPT/HCPCS: 71045; 80048; 81001; 85025; 87040; 93005; 99284

== ENCOUNTER → 2018-04-08 12:47 | Outpatient (CLI) | payer MEDICARE, BC, SELFPAY ==
[2018-04-08 14:01] LABS: Ferritin 91 ng/mL (26-388); Iron 42 ug/dL (65-175); Iron Binding Capacity,Total 351 ug/dL (250-450)
== END ==
PROVIDERS: Family Provider Internal Medicine; PCP Internal Medicine; Visit Provider Internal Medicine
DX: D64.9 Anemia, unspecified (principal)
CPT/HCPCS: 36415; 82728; 83540; 83550

== ENCOUNTER → 2018-04-29 10:50 | Outpatient (CLI) | payer MEDICARE, BC, SELFPAY ==
[2018-04-29 14:25] LABS: Absolute Neutrophil Count 5.4 X10^3/uL (2.0-7.7); Basophil# 0.03 X10^3/uL; Basophil% 0.4 % (0-1); Eosinophil# 0.12 X10^3/uL; Eosinophils% 1.5 % (0-5); Hematocrit 37.9 % (40-54); Lymphocyte % 21.6 % (19-41); Mean Corp Hgb Conc 31.7 g/gl (32-36); Mean Corpuscular Hgb 29.8 pg (27.0-32.0); Monocyte% 7.6 % (0-10); Neutrophil % 68.8 % (47-70); Platelet Count 221 K/mm3 (150-450); RBC Distribution Width CV 12.8 % (11.6-14.6); Red Blood Count 4.03 M/mm3 (4.6-6.2); White Blood Count 7.9 K/mm3 (4.4-11.0)
[2018-04-29 14:28] LABS: POSITIVE COUNT NO; POSITIVE DIFFERENTIAL NO; POSITIVE MORPHOLOGY NO
[2018-04-29 14:42] LABS: ALB/GLOB Ratio 0.9 RATIO (0.9-2.4); AST(SGOT) 29 U/L (15-37); Alanine Aminotransfer ALT/SGPT 40 U/L (16-61); Albumin, Serum 3.4 g/dL (3.2-5.0); Alkaline Phosphatase 57 U/L (45-117); Anion Gap 10 (5-15); BUN 20 mg/dL (7-18); BUN/Creat Ratio 18.2 RATIO (10-20); Calcium,Total 9.1 mg/dL (8.5-10.1); Chloride 105 mmol/L (98-107); EST Glomerular Filtration Rate 69 mL/min (>60); Est Glom Filt Rate - Afr Amer 83 mL/min (>60); Globulin 3.8 g/dL (2.2-4.2); Glucose 171 mg/dL (74-106); Potassium 4.6 mmol/L (3.5-5.1); Protein, Total 7.2 g/dL (6.4-8.2); Sodium Level 140 mmol/L (136-145)
== END ==
PROVIDERS: Family Provider Internal Medicine; PCP Internal Medicine; Visit Provider Internal Medicine Rheumatology
DX: L40.59 Other psoriatic arthropathy (principal); L40.8 Other psoriasis; M21.40 Flat foot [pes planus] (acquired), unspecified foot; M17.0 Bilateral primary osteoarthritis of knee
CPT/HCPCS: 36415; 80053; 85025

== ENCOUNTER 2018-05-07 08:18 | Outpatient (RCR) | payer MEDICARE, BC, SELFPAY | END 2018-05-17 23:59 | LOC: DC 08:18 | PROVIDERS: Family Provider Internal Medicine; PCP Internal Medicine; Visit Provider Internal Medicine | DX: E11.42 Type 2 diabetes mellitus with diabetic polyneuropathy (principal); Z71.3 Dietary counseling and surveillance | CPT/HCPCS: G0108 ==

== ENCOUNTER 2018-06-04 12:47 | Outpatient (RCR) | payer MEDICARE, BC, SELFPAY | END 2018-06-17 23:59 | LOC: DC 12:47 | PROVIDERS: Family Provider Internal Medicine; PCP Internal Medicine; Visit Provider Internal Medicine | DX: E11.42 Type 2 diabetes mellitus with diabetic polyneuropathy (principal); Z71.3 Dietary counseling and surveillance | CPT/HCPCS: G0108 ==

== ENCOUNTER 2018-06-13 22:09 | Inpatient (IN) | payer MEDICARE, BC, SELFPAY ==
[2018-06-13 22:10] VITALS: BP 128/61; PULSE 77; RESP 22; TEMP 36.8; O2SAT 98; BMI 27.8
[2018-06-13 22:20] LABS: Bedside Glucose 123 mg/dL (70-110)
--- NOTE | 2018-06-13 22:28 | EKG12_ITS ---
Test Reason : WEAKNESS Blood Pressure : / mmHG Vent. Rate : 077 BPM Atrial Rate : 077 BPM P-R Int : 196 ms QRS Dur : 108 ms QT Int : 428 ms P-R-T Axes : 101 063 063 degrees QTc Int : 484 ms Normal sinus rhythm Prolonged QT Abnormal ECG Confirmed by RIVKA DUNCAN, RAHUL ([id number]), editorial manager GORGE MARTIN ([id number] on 06/16/2018 10:11:35 AM Referred By: MAGALI Confirmed By:RAHUL TINEO MD
--- NOTE | 2018-06-13 22:28 | CT_ITS ---
STUDY: CTA OF THE BRAIN REASON FOR EXAM: Male, 77 years old. Dizziness. Expressive aphasia RADIATION DOSAGE (If Supplied By Facility): CTDIvol = ( 30.16 ) mGy, DLP = ( 1557.54 ) mGycm TECHNIQUE: CT angiography was performed with a multi-detector CT scanner. Data acquisition was obtained from the skull base through the vertex following intravenous administration of ml of . MIP images were reconstructed from the axial data set. Post-processing of the angiographic images was performed, with multiplanar reformation and 3D reconstruction. Individualized dose optimization techniques were used for this CT. COMPARISON: None. FINDINGS: Normal bilateral petrous carotid arteries. Normal right cavernous carotid artery with a normal supraclinoid bifurcation. Normal left cavernous carotid artery with a normal supraclinoid bifurcation. Normal right A1 segments of the anterior cerebral artery. Normal left A1 segments of the anterior cerebral artery. Normal intact anterior communicating artery (ACOM). Normal bilateral A2 segments of the anterior cerebral arteries. Normal right M1 and M2 segments of the middle cerebral arteries, with a normal M1 bifurcation. Normal left M1 and M2 segments of the middle cerebral arteries, with a normal M1 bifurcation. Normal right posterior communicating artery (PCOM). Normal left posterior communicating artery (PCOM). The right intervertebral artery is dominant. Normal basilar artery with a normal basilar bifurcation. The visualized bilateral superior cerebellar (SCA) arteries are normal. Normal bilateral P1, P2 and visualized P3 segments of the posterior cerebral arteries. There is no demonstrated aneurysm of the [place]. There is no demonstrated abnormality of the visualized brain. CT/CTA Head W/WO Contrast IMPRESSION: Normal [place] without a demonstrated aneurysm or hemodynamically significant stenosis. The dominant right vertebral artery. Electronically Signed: Kimo Crisostomo MD at 0:02 EDT Tel , Service support ,
--- NOTE | 2018-06-13 22:28 | CT_ITS ---
CTA of the neck. CLINICAL HISTORY: Dizziness. Expressive aphasia. PROCEDURE: The study was done with 100 mL of Isovue 370. FINDINGS: Normal takeoffs of the left subclavian artery, the left common carotid artery and the brachycephalic artery from the aortic arch. The left common carotid artery is normal but there are calcific atherosclerotic changes involving the left carotid bulb without any significant stenosis. The cervical portion of the left internal carotid artery is normal. The right common carotid artery, the right carotid bulb and in the cervical portion of the right internal carotid are normal. IMPRESSION: No evidence of a hemodynamically significant stenosis. Calcific atherosclerotic changes involving the left carotid bulb Electronically Signed: Kimo Crisostomo MD at 0:54 EDT Tel , Service support , CT/CTA Neck W/WO Contrast
[2018-06-13 22:47] VITALS: BP 130/62; PULSE 69; RESP 19; O2SAT 97
[2018-06-13 22:53] LABS: Absolute Neutrophil Count 5.1 X10^3/uL (2.0-7.7); Basophil# 0.03 X10^3/uL; Basophil% 0.4 % (0-1); Eosinophil# 0.12 X10^3/uL; Eosinophils% 1.5 % (0-5); Hematocrit 34.7 % (40-54); Hemoglobin 11.1 g/dl (13.0-16.5); Lymphocyte % 26.7 % (19-41); Mean Corpuscular Hgb 29.8 pg (27.0-32.0); Mean Platelet Vol. 9.4 fl (6.2-12.0); Monocyte# 0.77 X10^3/uL; Monocyte% 9.4 % (0-10); Neutrophil # 5.07 X10^3/uL (2.7-7.7); Neutrophil % 61.5 % (47-70); Platelet Count 217 K/mm3 (150-450); RBC Distribution Width CV 13.2 % (11.6-14.6); RBC Distribution Width SD 44.6 fl (35.1-43.9); Red Blood Count 3.73 M/mm3 (4.6-6.2); White Blood Count 8.2 K/mm3 (4.4-11.0)
[2018-06-13 22:55] LABS: POSITIVE COUNT NO; POSITIVE DIFFERENTIAL NO; POSITIVE MORPHOLOGY NO
[2018-06-13] MEDS: 0.9% Normal Saline 1,000 ML 150 ML IV (23:00)
--- NOTE | 2018-06-13 23:05 | ED.VISSUMM ---
- ER Visit Summary Date of Service: 06/13/18 Chief Complaint: Dizzy History of Present Illness: The patient is a 77 M with intermittent episodes of lightheadedness and dizziness/spinning for a couple weeks. Blood pressure medication has been decreased recently to see if this would help his symptoms. Over the past couple of days patient states he had to hold onto furniture periodically when he tries to walk due to his dizziness. His symptoms seem to be worse when looking up or turning his head a certain way. EMS tonight due to concern for expressive aphasia. The patient states it took him a while to answer questions because he was thinking about his answers more so than he could not get the words out. Past history is significant for coronary artery disease, diabetes, hypertension, high cholesterol, sleep apnea, BPH. He had SVT in the past with ablation. He has since developed paroxysmal atrial flutter. Medication list is reviewed and does include Xarelto. Physical Examination: Vital signs are unremarkable. Patient sitting upright in bed no acute distress. Head neck examination is unremarkable. Heart is regular rate and rhythm. Lung sounds are clear. Abdomen is soft and nontender. Neuro exam at this time is normal. His NIH is 0. Test Results: EKG is sinus at 77 with no sign of acute ischemia. CBC is significant only for hemoglobin 11.1. Chemistry studies grossly unremarkable. Troponin negative. CTA of the head reveals normal [place]. There is a dominant right vertebral artery. No acute findings seen in the noncontrast brain. CTA of the neck shows no significant stenosis. Emergency Department Course and Treatment: Bedside swallow eval was passed. Patient was given a dose of p.o. Antivert along with IV fluids. I am suspicious the patient has vertigo as he describes feeling off balance and having to hold on. My concern is the symptoms have been worsening over the past couple of weeks and he has had near falls. I recommended hospitalization overnight for further testing as well as evaluation by physical therapy. Treatment Plan: [] Disposition: Admit Impression: Vertigo This note was generated with [employer] dictation software. It may contain incorrect words, spelling, and punctuation that were not noted in review of the chart prior to signing ED Disposition - Plan for ED Patient: Chief Complaint: Weakness Referrals: Tosha Shrestha MD [Primary Care Provider] -
[2018-06-13 23:08] LABS: Anion Gap 7 (5-15); BUN 25 mg/dL (7-18); BUN/Creat Ratio 22.7 RATIO (10-20); Calcium,Total 8.8 mg/dL (8.5-10.1); Chloride 108 mmol/L (98-107); EST Glomerular Filtration Rate 69 mL/min (>60); Est Glom Filt Rate - Afr Amer 83 mL/min (>60); Estimated Creatinine Clearance 60.75 ml/min; Glucose 137 mg/dL (74-106); Potassium 4.1 mmol/L (3.5-5.1); Sodium Level 139 mmol/L (136-145)
--- NOTE | 2018-06-13 23:08 | ED.DCSUM_ITS ---
- ER Visit Summary Date of Service: 06/13/18 Chief Complaint: Dizzy History of Present Illness: The patient is a 77 M with intermittent episodes of lightheadedness and dizziness/spinning for a couple weeks. Blood pressure medication has been decreased recently to see if this would help his symptoms. Over the past couple of days patient states he had to hold onto furniture periodically when he tries to walk due to his dizziness. His symptoms seem to be worse when looking up or turning his head a certain way. EMS tonight due to concern for expressive aphasia. The patient states it took him a while to answer questions because he was thinking about his answers more so than he could not get the words out. Past history is significant for coronary artery disease, diabetes, hypertension, high cholesterol, sleep apnea, BPH. He had SVT in the past with ablation. He has since developed paroxysmal atrial flutter. Medication list is reviewed and does include Xarelto. Physical Examination: Vital signs are unremarkable. Patient sitting upright in bed no acute distress. Head neck examination is unremarkable. Heart is regular rate and rhythm. Lung sounds are clear. Abdomen is soft and nontender. Neuro exam at this time is normal. His NIH is 0. Test Results: EKG is sinus at 77 with no sign of acute ischemia. CBC is significant only for hemoglobin 11.1. Chemistry studies grossly unremarkable. Troponin negative. CTA of the head reveals normal the [place]. There is a dominant right vertebral artery. No acute findings seen in the noncontrast brain. CTA of the neck shows no significant stenosis. Emergency Department Course and Treatment: Bedside swallow eval was passed. Patient was given a dose of p.o. Antivert along with IV fluids. I am suspicious the patient has vertigo as he describes feeling off balance and having to hold on. My concern is the symptoms have been worsening over the past couple of weeks and he has had near falls. I recommended hospitalization overnight for further testing as well as evaluation by physical therapy. Treatment Plan: [] Disposition: Admit Impression: Vertigo This note was generated with [employer] dictation software. It may contain incorrect words, spelling, and punctuation that were not noted in review of the chart prior to signing ED Disposition - Plan for ED Patient: Chief Complaint: Weakness Referrals: Tosha Shrestha MD [Primary Care Provider] -
[2018-06-14] VITALS (16 sets, daily range): BP systolic 133–155; BP diastolic 58–78; PULSE 66–83; RESP 15–19; TEMP 36.6–37.1; O2SAT 95–100; BMI 33.7; BMI 33.8
[2018-06-14] MEDS: Meclizine 12.5 MG Tablet PO ×5 (00:55→19:46)
--- NOTE | 2018-06-14 01:01 | PCM.HP.STD ---
Problem List (1) Vertigo Status: Acute (2) Anxiety and depression Status: Chronic (3) Atherosclerotic heart disease of [place] coronary artery without angina pectoris Status: Chronic Qualifiers: [place] vs. transplanted heart: [place] heart Qualified Code(s): I25.10 - Atherosclerotic heart disease of [place] coronary artery without angina pectoris (4) HLD (hyperlipidemia) Status: Chronic Qualifiers: Hyperlipidemia type: pure hypercholesterolemia Qualified Code(s): E78.00 - Pure hypercholesterolemia, unspecified; E78.0 - Pure hypercholesterolemia (5) Paroxysmal atrial flutter Status: Chronic Comment: ablation 2005, DCCV 2012,2014,2016 (6) Diabetes mellitus Status: Chronic Qualifiers: Diabetes mellitus type: type 2 Diabetes mellitus ad terminal makeup operator insulin use: without [place] use Diabetes mellitus complication status: with unspecified complications Qualified Code(s): E11.8 - Type 2 diabetes mellitus with unspecified complications (7) BPH (benign prostatic hyperplasia) Status: Chronic Qualifiers: Lower urinary tract symptom presence: unspecified whether lower urinary tract symptoms present Qualified Code(s): N40.0 - Benign prostatic hyperplasia without lower urinary tract symptoms (8) Cardiac dysrhythmia Status: Chronic Qualifiers: Arrhythmia type: ventricular tachycardia Qualified Code(s): I47.2 - Ventricular tachycardia (9) HTN (hypertension) Status: Chronic Qualifiers: Hypertension type: essential hypertension Qualified Code(s): I10 - Essential (primary) hypertension (10) Obstructive sleep apnea Status: Chronic Comment: 17/13 cmH2O (11) Diabetic polyneuropathy Status: Chronic Qualifiers: Diabetes mellitus type: type 2 Qualified Code(s): E11.42 - Type 2 diabetes mellitus with diabetic polyneuropathy (12) PAF (paroxysmal atrial fibrillation) Status: Chronic History of Present Illness Date of Admission: 06/14/18 Chief Complaint: Vertigo The patient is a 77 y/o M w/ PMHx: Hx SVT s/p cardiac ablation, PAF on xarelto, Diabetes mellitus type II w/ neuropathy, HTN, HLD, Psoriasis, Fe Deficiency Anemia, CAD without PCI history, BPH, MACHELLE on q HS BIPAP, RLS, Obesity who presents to the [facility] ED on 06/14/18 with history of ongoing intermittent lightheadedness, room spinning sensation which comes on suddenly intermittently over the last 2 weeks, worse with certain positional changes and when looking up he notes with PCP attempts to decrease his BP regimen secondary to possible orthostatic hypotension as an etiology he notes with noted near fall on day of presentation with EMS reported concerns of expressive aphasia and possibly abnormal R FTN and R HTS upon evaluation. He does note that when he initially had episodes of VT he had a similar feeling. In the ED patient noted to be appropriate, NIH 0. Work-up in the ED included T 98.2, heart rate 77, BP 120/61, respiratory rate 22, 98% on room air, CBC with WBC 8.2, hemoglobin 11.1, platelet 270 without shift, BMP with chloride 108, BUN/Cr 25/1.10, glucose 137, trop < 0.015, EKG with SR without acute evidence of ischemia, CTA Head and Neck without acute findings. In the ED patient administered meclizine, NS. Past Medical History Past Medical History (Chronic Problems): Chronic Problems (Last Reviewed 05/25/18 @ 13:32 by Therese Rehman, JOSEFINA-C) PAF (paroxysmal atrial fibrillation) (Chronic) BMI 34.0-34.9,adult (Chronic) Anxiety and depression (Chronic) Polypharmacy (Chronic) Atherosclerotic heart disease of [place] coronary artery without angina pectoris (Chronic) HLD (hyperlipidemia) (Chronic) Paroxysmal atrial flutter (Chronic) ablation 2005, DCCV 2012,2014,2015 De Quervain's tenosynovitis (Chronic) Body mass index (BMI) of 39.0-39.9 in adult (Chronic) Diabetes mellitus (Chronic) BPH (benign prostatic hyperplasia) (Chronic) History of renal calculi (Chronic) Cardiac dysrhythmia (Chronic) Dyslipidemia (Chronic) HTN (hypertension) (Chronic) Obstructive sleep apnea (Chronic) 17/13 cmH2O RLS (restless legs syndrome) (Chronic) History of prior ablation treatment (Chronic) DM type 2 with diabetic peripheral neuropathy (Chronic) Diabetic polyneuropathy (Chronic) Dizziness (Chronic) CAD (coronary artery disease) (Chronic) Medical History: Medical History (Last Reviewed 05/25/18 @ 13:32 by Therese Rehman RETAIL DEPARTMENT RESET-C) Atherosclerotic heart disease of [place] coronary artery without angina pectoris (Chronic) I25.10 HLD (hyperlipidemia) (Chronic) E78.5 Paroxysmal atrial flutter (Chronic) I48.92 ablation 2005, DCCV 2012,2014,2015 De Quervain's tenosynovitis (Chronic) M65.4 Body mass index (BMI) of 39.0-39.9 in adult (Chronic) Z68.39 Diabetes mellitus (Chronic) E11.9 BPH (benign prostatic hyperplasia) (Chronic) History of renal calculi (Chronic) Z87.442 Cardiac dysrhythmia (Chronic) I49.9 Dyslipidemia (Chronic) E78.5 HTN (hypertension) (Chronic) I10 Obstructive sleep apnea (Chronic) G47.33 17/13 cmH2O RLS (restless legs syndrome) (Chronic) DM type 2 with diabetic peripheral neuropathy (Chronic) E11.42 Diabetic polyneuropathy (Chronic) E11.42 Dizziness (Chronic) R42 CAD (coronary artery disease) (Chronic) I25.10 Pneumonia (Resolved) J18.9 community acquired Allergies hydrocodone [From Vicodin] Allergy (Mild, Verified 05/25/18 12:28) hydrocodone bitartrate [From Vicodin] Allergy (Verified 05/25/18 12:28) Other hydroxyzine Adverse Reaction (Verified 05/25/18 12:28) Other CALLED DIZZINESS Home Medications: Ambulatory Orders Medication Instructions Recorded Cyanocobalamin (Vitamin B-12) 1,000 mcg PO DAILY #30 tab 11/12/17 [B-12] ergocalciferol (vitamin D2) 50,000 50,000 unit PO QMONTH #10 cap 12/04/17 unit capsule finasteride 5 mg tablet 5 mg PO DAILY #90 tab 12/04/17 metformin 1,000 mg tablet 1,000 mg PO BIDCM #120 tab 12/04/17 metoprolol succinate ER 25 mg 25 mg PO DAILY #90 tab 12/04/17 tablet,extended release 24 hr rivaroxaban 20 mg tablet 20 mg PO DAILY #90 tab 12/04/17 amlodipine 5 mg tablet 5 mg PO QDAY #90 tab 01/13/18 sitagliptin 100 mg tablet 50 mg PO QDAY tab 02/17/18 flecainide 100 mg tablet 100 mg PO Q12H #180 tab 02/19/18 Simvastatin 20 mg PO .COMPLEX 03/05/18 levomilnacipran ER 40 mg 40 mg PO DAILY #90 cap 03/06/18 capsule,24 hr,extended release ferrous sulfate 325 mg (65 mg 325 mg PO DAILY tab 04/13/18 iron) tablet gabapentin 300 mg capsule 300 mg PO QHS #90 cap 04/28/18 pramipexole 1 mg tablet 2 mg PO QHS #60 tab 04/28/18 dulaglutide 0.75 mg/0.5 mL 0.75 mg SC QWEEK #2 ml 04/30/18 subcutaneous pen injector tramadol 50 mg tablet 100 mg PO QHS PRN #60 tab 05/01/18 apremilast 30 mg tablet 30 mg PO BID 05/25/18 blood sugar diagnostic strips See Dose Instructions .ROUTE 05/28/18 .MEDSUPPLY #100 ea lancets 33 gauge See Dose Instructions .ROUTE 05/28/18 .MEDSUPPLY #100 ea blood-glucose meter kit See Dose Instructions .ROUTE 06/10/18 .MEDSUPPLY #1 ea Lisinopril [Prinivil] 10 mg PO QDAY 06/14/18 Surgical History: Surgical History (Last Reviewed 05/25/18 @ 13:32 by KENRICK Bosch) history of right knee cap fracture (Resolved) 2010, 2011 Status post left foot surgery (Resolved) Z98.890 2008 History of right knee surgery (Resolved) Z98.890 1979 History of prior ablation treatment (Chronic) Z98.890 Surgical History: tonsillectomy, - - R knee Patella repair, ORIF of left foot from accident, cardiac ablations, T+A. Psychiatric History: Anxiety, Depression Lives: Spouse/ Significant Other Smoking Status: Never smoker Tobacco Use: Non-smoker Alcohol: None Drugs: None - *Family History Maternal Family History: Family History (Last Reviewed 05/25/18 @ 13:32 by KENRICK Bosch) Father Diabetes Hypertension Cancer Mother Hypertension CVA (cerebral vascular accident) Sister Diabetes Son Diabetes History Items: Stroke - His mother had stroke in her 70's. Paternal Family History: Family History (Last Reviewed 05/25/18 @ 13:32 by KENRICK Bosch) Father Diabetes Hypertension Cancer Mother Hypertension CVA (cerebral vascular accident) Sister Diabetes Son Diabetes History Items: Cancer - Lung Review of Systems Constitutional: Reports: Weakness, Fatigue. Denies: Chills, Fever, Weight Change HEENT: Denies: Head Aches, Sinus Congestion, Sinus Drainage Cardiovascular: Reports: Light Headedness. Denies: Chest Pain, Palpitations Respiratory: Denies: Cough, Shortness of breath at rest, Sputum production Gastrointestinal: Denies: Abdominal Pain, Nausea, Vomiting Genitourinary: Denies: Dysuria Musculoskeletal: Denies: Joint Pain, Joint Tenderness Skin: Denies: Rash, Wounds Neurological: Reports: - - Vertigo.. Denies: Focal weakness, Numbness, Tingling Psychiatric: Reports: Anxiety, Depression. Denies: Homicidal Ideations, Suicidal Ideations Hematologic/ Lymphatic: Reports: Anemia, Easy Bruising, Easy Bleeding VTE Information - Inpt Only VTE Present on Admission: No VTE Mechan Device Prophylaxis: SCD's VTE Pharm Prophylaxis ordered?: No Reason prophylaxis not ordered:: Treatment Not Indicated Patient Problems: Active and Suspected Problems (Last Reviewed 05/25/18 @ 13:32 by KENRICK Bosch) Vertigo (Acute) Subjective: Seated upright in the ED bed, currently NAD, vertigo onset w/ examination with laying back. Objective: Physical Examination: General: awake, alert, oriented x 3 and cooperative, seated upright in the ED bed in no apparent distress. Skin: normal color, turgor, no icterus, cyanosis. HEENT: AT/NC, EOMI, PERRLA, MMM, no carotid bruits or JVD noted. Lungs: CTA bilaterally, moderate effort, mild decrease BL bases, no rales, ronchi or wheezing. Heart: Regular rate and rhythm; no gallop, rub audible. Abdomen: soft, obese, NTTP, ND, normal BS, no HSM. Extremities: no cyanosis, clubbing, BL ankle edema, chronic venous stasis BL LE, s/p trauma w/ surgery/hardware L ankle and foot. Neurological: patient awake, alert, oriented x 3; cognitive function intact; pupils equally reactive to light and accomodation; cranial nerves II-XII grossly normal, moving all 4 extremities, no focal deficits, polyneuropathy presentation, HTN and FTN appropriate, strength appropriate although limited w/ vertigo onset, negative babinski. Psychiatric: affect appears normal, no acute evidence of depressive or anxiety feelings. - Physical Exam Vital Signs Temp Pulse Resp BP Pulse Ox 98.2 F 73 19 H 149/61 H 100 06/13/18 22:10 06/14/18 00:59 06/14/18 00:59 06/14/18 00:59 06/14/18 00:59 Oxygen Delivery Method Room Air Weight: 205 lb 4.006 oz Body Mass Index (BMI) 27.8 Finger Stick Blood Glucose 123 Laboratory Tests Past 24 Hrs 06/13/18 06/13/18 22:22 22:22 WBC 8.2 RBC 3.73 L Hgb 11.1 L Hct 34.7 L MCV 93.0 MCH 29.8 MCHC 32.0 RDW 13.2 RDW Differential 44.6 H Plt Count 217 MPV 9.4 Immature Gran % (Auto) 0.500 Neut % (Auto) 61.5 Lymph % (Auto) 26.7 Gove % (Auto) 9.4 Eos % (Auto) 1.5 Baso % (Auto) 0.4 Absolute Neuts (auto) 5.1 Absolute Lymphs (auto) 2.20 Total Counted Not Reportable Sodium 139 Potassium 4.1 Chloride 108 H Carbon Dioxide 24.0 Anion Gap 7 BUN 25 H Creatinine 1.10 Estim Creat Clear Calc 60.75 Est GFR (MDRD) Af Amer 83 Est GFR (MDRD) Non-Af 69 BUN/Creatinine Ratio 22.7 H Glucose 137 H Calcium 8.8 Troponin I < 0.015 POC Glucose 06/13/18 22:15 POC Glucose 123 H Assessment/Plan All Active Problems (Last Reviewed 05/25/18 @ 13:32 by Therese Rehman NP-C) Vertigo (Acute) Malaise (Acute) Open wound of left lower extremity (Acute) Fall (Acute) Loss of equilibrium (Acute) Near syncope (Acute) history of right knee cap fracture (Resolved) Status post left foot surgery (Resolved) History of right knee surgery (Resolved) Pneumonia (Resolved) Atrial flutter (Resolved) S/P ablation operation for arrhythmia (Resolved) SVT (supraventricular tachycardia) (Resolved) The patient is a 77 y/o M w/ PMHx: Hx SVT s/p cardiac ablation, PAF on xarelto, Diabetes mellitus type II w/ neuropathy, HTN, HLD, Psoriasis, Fe Deficiency Anemia, CAD without PCI history, BPH, MACHELLE on q HS BIPAP, RLS, Obesity who presents to the [facility] ED on 06/14/18 with history of ongoing intermittent lightheadedness, room spinning sensation which comes on suddenly intermittently over the last 2 weeks, worse with certain positional changes. (1) Vertigo, Progressively worsening concerning for BPPV versus Posterior CVA: Work-up in the ED included T 98.2, heart rate 77, BP 120/61, respiratory rate 22, 98% on room air, CBC with WBC 8.2, hemoglobin 11.1, platelet 270 without shift, BMP with chloride 108, BUN/Cr 25/1.10, glucose 137, trop < 0.015, EKG with SR without acute evidence of ischemia, CTA Head and Neck without acute findings. Will admit to PCU, will obtain MRI Brain, CTA head and neck already obtained as noted, obtain ECHO, PT/OT/Speech/Nutrition evaluation per protocol. Given timeline will continue home HTN regimen, maintain on xarelto, continue home statin w/ AM FLP. Maintain on fall precautions. Obtain orthostatic VS. Continue meclizine regimen. (2) History of VT, CAD: s/p ablation, maintain on telemetry, repeat EKG in AM, cycle cardiac enzymes, maintain on xarelto, metoprolol, statin. (3) Diabetes mellitus type II: Hold oral home regimen, ADA diet, accu checks w/ ISS, HgbA1c pending. (4) Hypertension: Continue home regimen including Norvasc, lisinopril, metoprolol given patient symptoms greater than 2 weeks, PRN hydralazine. (5) Hyperlipidemia: Continue home statin regimen. AM FLP. (6) Iron deficiency anemia: Admission hemoglobin 11.1, we will continue home iron supplementation. (7) PAF: We will continue home flecainide, metoprolol and xarelto regimen. (8) Obesity: Weight loss and lifestyle changes encouraged. (9) Anxiety and Depression: Continue home Fetzima regimen. (10) MACHELLE: BIPAP q HS. (11) DVT prophylaxis: SCDs, xarelto. Code Visit OBSV E&M: [id number] Initial observation care L3
--- NOTE | 2018-06-14 01:14 | HP.PCM_ITS ---
Problem List (1) Vertigo Status: Acute (2) Anxiety and depression Status: Chronic (3) Atherosclerotic heart disease of [place] coronary artery without angina pectoris Status: Chronic Qualifiers: [place] vs. transplanted heart: [place] heart Qualified Code(s): I25.10 - Atherosclerotic heart disease of [place] coronary artery without angina pectoris (4) HLD (hyperlipidemia) Status: Chronic Qualifiers: Hyperlipidemia type: pure hypercholesterolemia Qualified Code(s): E78.00 - Pure hypercholesterolemia, unspecified; E78.0 - Pure hypercholesterolemia (5) Paroxysmal atrial flutter Status: Chronic Comment: ablation 2005, DCCV 2012,2014,2016 (6) Diabetes mellitus Status: Chronic Qualifiers: Diabetes mellitus type: type 2 Diabetes mellitus termite helper insulin use: without intermediate use Diabetes mellitus complication status: with unspecified complications Qualified Code(s): E11.8 - Type 2 diabetes mellitus with unspecified complications (7) BPH (benign prostatic hyperplasia) Status: Chronic Qualifiers: Lower urinary tract symptom presence: unspecified whether lower urinary tract symptoms present Qualified Code(s): N40.0 - Benign prostatic hyperplasia without lower urinary tract symptoms (8) Cardiac dysrhythmia Status: Chronic Qualifiers: Arrhythmia type: ventricular tachycardia Qualified Code(s): I47.2 - Ventricular tachycardia (9) HTN (hypertension) Status: Chronic Qualifiers: Hypertension type: essential hypertension Qualified Code(s): I10 - Essential (primary) hypertension (10) Obstructive sleep apnea Status: Chronic Comment: 17/13 cmH2O (11) Diabetic polyneuropathy Status: Chronic Qualifiers: Diabetes mellitus type: type 2 Qualified Code(s): E11.42 - Type 2 diabetes mellitus with diabetic polyneuropathy (12) PAF (paroxysmal atrial fibrillation) Status: Chronic History of Present Illness Date of Admission: 06/14/18 Chief Complaint: Vertigo The patient is a 77 y/o M w/ PMHx: Hx SVT s/p cardiac ablation, PAF on xarelto, Diabetes mellitus type II w/ neuropathy, HTN, HLD, Psoriasis, Fe Deficiency Anemia, CAD without PCI history, BPH, MACHELLE on q HS BIPAP, RLS, Obesity who presents to the [facility] ED on 06/14/18 with history of ongoing intermittent lightheadedness, room spinning sensation which comes on suddenly intermittently over the last 2 weeks, worse with certain positional changes and when looking up he notes with PCP attempts to decrease his BP regimen secondary to possible orthostatic hypotension as an etiology he notes with noted near fall on day of presentation with EMS reported concerns of expressive aphasia and possibly abnormal R FTN and R HTS upon evaluation. He does note that when he initially had episodes of VT he had a similar feeling. In the ED patient noted to be appropriate, NIH 0. Work-up in the ED included T 98.2, heart rate 77, BP 120/61, respiratory rate 22, 98% on room air, CBC with WBC 8.2, hemoglobin 11.1, platelet 270 without shift, BMP with chloride 108, BUN/Cr 25/1.10, glucose 137, trop < 0.015, EKG with SR without acute evidence of ischemia, CTA Head and Neck without acute findings. In the ED patient administered meclizine, NS. Past Medical History Past Medical History (Chronic Problems): Chronic Problems (Last Reviewed 05/25/18 @ 13:32 by Therese Rehman, JOSEFINA-C) PAF (paroxysmal atrial fibrillation) (Chronic) BMI 34.0-34.9,adult (Chronic) Anxiety and depression (Chronic) Polypharmacy (Chronic) Atherosclerotic heart disease of [place] coronary artery without angina pectoris (Chronic) HLD (hyperlipidemia) (Chronic) Paroxysmal atrial flutter (Chronic) ablation 2005, DCCV 2012,2014,2015 De Quervain's tenosynovitis (Chronic) Body mass index (BMI) of 39.0-39.9 in adult (Chronic) Diabetes mellitus (Chronic) BPH (benign prostatic hyperplasia) (Chronic) History of renal calculi (Chronic) Cardiac dysrhythmia (Chronic) Dyslipidemia (Chronic) HTN (hypertension) (Chronic) Obstructive sleep apnea (Chronic) 17/13 cmH2O RLS (restless legs syndrome) (Chronic) History of prior ablation treatment (Chronic) DM type 2 with diabetic peripheral neuropathy (Chronic) Diabetic polyneuropathy (Chronic) Dizziness (Chronic) CAD (coronary artery disease) (Chronic) Medical History: Medical History (Last Reviewed 05/25/18 @ 13:32 by Therese Rehman [employer]ER-C) Atherosclerotic heart disease of [place] coronary artery without angina pectoris (Chronic) I25.10 HLD (hyperlipidemia) (Chronic) E78.5 Paroxysmal atrial flutter (Chronic) I48.92 ablation 2005, DCCV 2012,2014,2015 De Quervain's tenosynovitis (Chronic) M65.4 Body mass index (BMI) of 39.0-39.9 in adult (Chronic) Z68.39 Diabetes mellitus (Chronic) E11.9 BPH (benign prostatic hyperplasia) (Chronic) History of renal calculi (Chronic) Z87.442 Cardiac dysrhythmia (Chronic) I49.9 Dyslipidemia (Chronic) E78.5 HTN (hypertension) (Chronic) I10 Obstructive sleep apnea (Chronic) G47.33 17/13 cmH2O RLS (restless legs syndrome) (Chronic) DM type 2 with diabetic peripheral neuropathy (Chronic) E11.42 Diabetic polyneuropathy (Chronic) E11.42 Dizziness (Chronic) R42 CAD (coronary artery disease) (Chronic) I25.10 Pneumonia (Resolved) J18.9 community acquired Allergies hydrocodone [From Vicodin] Allergy (Mild, Verified 05/25/18 12:28) hydrocodone bitartrate [From Vicodin] Allergy (Verified 05/25/18 12:28) Other hydroxyzine Adverse Reaction (Verified 05/25/18 12:28) Other CALLED DIZZINESS Home Medications: Ambulatory Orders Medication Instructions Recorded Cyanocobalamin (Vitamin B-12) 1,000 mcg PO DAILY #30 tab 11/12/17 [B-12] ergocalciferol (vitamin D2) 50,000 50,000 unit PO QMONTH #10 cap 12/04/17 unit capsule finasteride 5 mg tablet 5 mg PO DAILY #90 tab 12/04/17 metformin 1,000 mg tablet 1,000 mg PO BIDCM #120 tab 12/04/17 metoprolol succinate ER 25 mg 25 mg PO DAILY #90 tab 12/04/17 tablet,extended release 24 hr rivaroxaban 20 mg tablet 20 mg PO DAILY #90 tab 12/04/17 amlodipine 5 mg tablet 5 mg PO QDAY #90 tab 01/13/18 sitagliptin 100 mg tablet 50 mg PO QDAY tab 02/17/18 flecainide 100 mg tablet 100 mg PO Q12H #180 tab 02/19/18 Simvastatin 20 mg PO .COMPLEX 03/05/18 levomilnacipran ER 40 mg 40 mg PO DAILY #90 cap 03/06/18 capsule,24 hr,extended release ferrous sulfate 325 mg (65 mg 325 mg PO DAILY tab 04/13/18 iron) tablet gabapentin 300 mg capsule 300 mg PO QHS #90 cap 04/28/18 pramipexole 1 mg tablet 2 mg PO QHS #60 tab 04/28/18 dulaglutide 0.75 mg/0.5 mL 0.75 mg SC QWEEK #2 ml 04/30/18 subcutaneous pen injector tramadol 50 mg tablet 100 mg PO QHS PRN #60 tab 05/01/18 apremilast 30 mg tablet 30 mg PO BID 05/25/18 blood sugar diagnostic strips See Dose Instructions .ROUTE 05/28/18 .MEDSUPPLY #100 ea lancets 33 gauge See Dose Instructions .ROUTE 05/28/18 .MEDSUPPLY #100 ea blood-glucose meter kit See Dose Instructions .ROUTE 06/10/18 .MEDSUPPLY #1 ea Lisinopril [Prinivil] 10 mg PO QDAY 06/14/18 Surgical History: Surgical History (Last Reviewed 05/25/18 @ 13:32 by KENRICK Bosch) history of right knee cap fracture (Resolved) 2010, 2011 Status post left foot surgery (Resolved) Z98.890 2008 History of right knee surgery (Resolved) Z98.890 1979 History of prior ablation treatment (Chronic) Z98.890 Surgical History: tonsillectomy, - - R knee Patella repair, ORIF of left foot from accident, cardiac ablations, T+A. Psychiatric History: Anxiety, Depression Lives: Spouse/ Significant Other Smoking Status: Never smoker Tobacco Use: Non-smoker Alcohol: None Drugs: None - *Family History Maternal Family History: Family History (Last Reviewed 05/25/18 @ 13:32 by KENRICK Bosch) Father Diabetes Hypertension Cancer Mother Hypertension CVA (cerebral vascular accident) Sister Diabetes Son Diabetes History Items: Stroke - His mother had stroke in her 70's. Paternal Family History: Family History (Last Reviewed 05/25/18 @ 13:32 by KENRICK Bosch) Father Diabetes Hypertension Cancer Mother Hypertension CVA (cerebral vascular accident) Sister Diabetes Son Diabetes History Items: Cancer - Lung Review of Systems Constitutional: Reports: Weakness, Fatigue. Denies: Chills, Fever, Weight Change HEENT: Denies: Head Aches, Sinus Congestion, Sinus Drainage Cardiovascular: Reports: Light Headedness. Denies: Chest Pain, Palpitations Respiratory: Denies: Cough, Shortness of breath at rest, Sputum production Gastrointestinal: Denies: Abdominal Pain, Nausea, Vomiting Genitourinary: Denies: Dysuria Musculoskeletal: Denies: Joint Pain, Joint Tenderness Skin: Denies: Rash, Wounds Neurological: Reports: - - Vertigo.. Denies: Focal weakness, Numbness, Tingling Psychiatric: Reports: Anxiety, Depression. Denies: Homicidal Ideations, Suicidal Ideations Hematologic/ Lymphatic: Reports: Anemia, Easy Bruising, Easy Bleeding VTE Information - Inpt Only VTE Present on Admission: No VTE Mechan Device Prophylaxis: SCD's VTE Pharm Prophylaxis ordered?: No Reason prophylaxis not ordered:: Treatment Not Indicated Patient Problems: Active and Suspected Problems (Last Reviewed 05/25/18 @ 13:32 by KENRICK Bosch) Vertigo (Acute) Subjective: Seated upright in the ED bed, currently NAD, vertigo onset w/ examination with laying back. Objective: Physical Examination: General: awake, alert, oriented x 3 and cooperative, seated upright in the ED bed in no apparent distress. Skin: normal color, turgor, no icterus, cyanosis. HEENT: AT/NC, EOMI, PERRLA, MMM, no carotid bruits or JVD noted. Lungs: CTA bilaterally, moderate effort, mild decrease BL bases, no rales, r onchi or wheezing. Heart: Regular rate and rhythm; no gallop, rub audible. Abdomen: soft, obese, NTTP, ND, normal BS, no HSM. Extremities: no cyanosis, clubbing, BL ankle edema, chronic venous stasis BL LE, s/p trauma w/ surgery/hardware L ankle and foot. Neurological: patient awake, alert, oriented x 3; cognitive function intact; pupils equally reactive to light and accomodation; cranial nerves II-XII grossly normal, moving all 4 extremities, no focal deficits, polyneuropathy presentation, HTN and FTN appropriate, strength appropriate although limited w/ vertigo onset, negative babinski. Psychiatric: affect appears normal, no acute evidence of depressive or anxiety feelings. - Physical Exam Vital Signs Temp Pulse Resp BP Pulse Ox 98.2 F 73 19 H 149/61 H 100 06/13/18 22:10 06/14/18 00:59 06/14/18 00:59 06/14/18 00:59 06/14/18 00:59 Oxygen Delivery Method Room Air Weight: 205 lb 4.006 oz Body Mass Index (BMI) 27.8 Finger Stick Blood Glucose 123 Laboratory Tests Past 24 Hrs 06/13/18 06/13/18 22:22 22:22 WBC 8.2 RBC 3.73 L Hgb 11.1 L Hct 34.7 L MCV 93.0 MCH 29.8 MCHC 32.0 RDW 13.2 RDW Differential 44.6 H Plt Count 217 MPV 9.4 Immature Gran % (Auto) 0.500 Neut % (Auto) 61.5 Lymph % (Auto) 26.7 [place] % (Auto) 9.4 Eos % (Auto) 1.5 Baso % (Auto) 0.4 Absolute Neuts (auto) 5.1 Absolute Lymphs (auto) 2.20 Total Counted Not Reportable Sodium 139 Potassium 4.1 Chloride 108 H Carbon Dioxide 24.0 Anion Gap 7 BUN 25 H Creatinine 1.10 Estim Creat Clear Calc 60.75 Est GFR (MDRD) Af Amer 83 Est GFR (MDRD) Non-Af 69 BUN/Creatinine Ratio 22.7 H Glucose 137 H Calcium 8.8 Troponin I < 0.015 POC Glucose 06/13/18 22:15 POC Glucose 123 H Assessment/Plan All Active Problems (Last Reviewed 05/25/18 @ 13:32 by Therese Rehman NP-C) Vertigo (Acute) Malaise (Acute) Open wound of left lower extremity (Acute) Fall (Acute) Loss of equilibrium (Acute) Near syncope (Acute) history of right knee cap fracture (Resolved) Status post left foot surgery (Resolved) History of right knee surgery (Resolved) Pneumonia (Resolved) Atrial flutter (Resolved) S/P ablation operation for arrhythmia (Resolved) SVT (supraventricular tachycardia) (Resolved) The patient is a 77 y/o M w/ PMHx: Hx SVT s/p cardiac ablation, PAF on xarelto, Diabetes mellitus type II w/ neuropathy, HTN, HLD, Psoriasis, Fe Deficiency Anemia, CAD without PCI history, BPH, MACHELLE on q HS BIPAP, RLS, Obesity who presents to the [facility] ED on 06/14/18 with history of ongoing intermittent lightheadedness, room spinning sensation which comes on suddenly intermittently over the last 2 weeks, worse with certain positional changes. (1) Vertigo, Progressively worsening concerning for BPPV versus Posterior CVA: Work-up in the ED included T 98.2, heart rate 77, BP 120/61, respiratory rate 22, 98% on room air, CBC with WBC 8.2, hemoglobin 11.1, platelet 270 without shift, BMP with chloride 108, BUN/Cr 25/1.10, glucose 137, trop < 0.015, EKG with SR without acute evidence of ischemia, CTA Head and Neck without acute findings. Will admit to PCU, will obtain MRI Brain, CTA head and neck already obtained as noted, obtain ECHO, PT/OT/Speech/Nutrition evaluation per protocol. Given timeline will continue home HTN regimen, maintain on xarelto, continue home statin w/ AM FLP. Maintain on fall precautions. Obtain orthostatic VS. Continue meclizine regimen. (2) History of VT, CAD: s/p ablation, maintain on telemetry, repeat EKG in AM, cycle cardiac enzymes, maintain on xarelto, metoprolol, statin. (3) Diabetes mellitus type II: Hold oral home regimen, ADA diet, accu checks w/ ISS, HgbA1c pending. (4) Hypertension: Continue home regimen including Norvasc, lisinopril, metoprolol given patient symptoms greater than 2 weeks, PRN hydralazine. (5) Hyperlipidemia: Continue home statin regimen. AM FLP. (6) Iron deficiency anemia: Admission hemoglobin 11.1, we will continue home iron supplementation. (7) PAF: We will continue home flecainide, metoprolol and xarelto regimen. (8) Obesity: Weight loss and lifestyle changes encouraged. (9) Anxiety and Depression: Continue home Fetzima regimen. (10) MACHELLE: BIPAP q HS. (11) DVT prophylaxis: SCDs, xarelto. Code Visit OBSV E&M: [id number] Initial observation care L3
--- NOTE | 2018-06-14 01:56 | MRI_ITS ---
STUDY: MRI BRAIN WITHOUT CONTRAST REASON FOR EXAM: Male, 77 years old. Vertigo with lightheadedness and dizziness for 2 to 3 weeks. TECHNIQUE: Standardized multiplanar fat and water weighted pulse sequences were obtained. COMPARISON: MRI of the brain dated November 11, 2017. FINDINGS: There is mild cerebral atrophy with widening of the extra-axial spaces and ventricular dilatation. There are a limited number of small white matter hyperintensities, distributed throughout the deep white matter tracts of the cerebral hemispheres, consistent with mild chronic white matter ischemic changes. There is no evidence for recent intracranial ischemia or other cause of cytotoxic edema on diffusion weighted imaging (DWI). Normal T2* images of the brain without demonstrated susceptibility artifact. There is no demonstrated hemosiderin stain. There are prominent perivascular spaces (PVS) involving the basal ganglia. Normal thalami. There is no extra-axial fluid accumulation. Normal flow voids within the major intracranial circulation suggesting patency by spin echo criteria. Normal sella turcica, pituitary gland, infundibular stalk, optic chiasm and hypothalamus. Normal tectal plate and pineal gland. There are chronic white matter ischemic changes of the clemente. The midbrain and medulla are otherwise normal. There are mild involutional changes of the cerebellum. There are large basal cisterns. Normal bilateral temporal bones. Normal bilateral internal auditory canals. No demonstrated orbital abnormality, within the constraints of a routine brain study. Normal visualized paranasal sinuses. Normal calvarium and skull base. Normal visualized soft tissue structures. There is a focus of abnormal signal within the odontoid that has decreased T1 signal. This is unchanged since the previous MRI and may represent a bone cyst or erosion. MRI/Brain without Contrast IMPRESSION: 1. Involutional changes of the brain, as described above. 2. No MR evidence for acute infarct. Electronically Signed: Shi Mayr MD at 11:50 EDT , Service support ,
--- NOTE | 2018-06-14 01:56 | ECHOD_ITS ---
[id number] ECHO^ECHOD^Echo Complete [id number] TAG_START Cardiovascular Services Echocardiogram [address] [place], [place] [id number] Ordering Physician: Lianna Garcia TAG_ENDED TAG_START Name: MARY SAN Study Date: 06/15/2018 11:20 AM BP: 149/70 mmHg Patient Location: [facility]^[id number]^1 BSA: 2.3 m2 : 1940 Gender: Male Height: 72 in Age: 77 yrs Weight: 249 lb History: ASHD, De Quervains Tenosynovitis, DM, Dizziness, HLD, HTN, MACHELLE, PAF s/p Ablation 2005, Previous negative bubble TAG_ENDED Reason For Study: TIA/Stroke Procedure This was a 2D Doppler, Color Flow transthoracic echocardiogram. Exam performed portable in patient room. Left Ventricle Normal size and thickness. The estimated ejection fraction is 65 %. Stage 1 diastolic dysfunction. No regional wall motion abnormalities noted. TAG_START I Segments Size 1-2 small X - Cannot 1 - Normal 2 - 3 - Akinetic 4 - Dyskinetic3-5 moderate Interpret Hypokinetic 6-14 large 5 - Aneurysmal 15-16 diffuse TAG_ENDED Right Ventricle Normal size and thickness. Normal systolic function. Atria Normal left atrium. Normal right atrium. Normal atrial septum. Mitral Valve The mitral valve is structurally normal. No prolapse or stenosis seen. Trivial mitral valve insufficiency. Tricuspid Valve Normal tricuspid valve. Mild (1+) tricuspid valve insufficiency. Right ventricular systolic pressure estimated to be 30 mmHg. Aortic Valve Trisinus/trileaflet aortic valve. Mild diffuse aortic valve thickening. Mild (1+) aortic valve insufficiency. Pulmonic Valve Normal pulmonic valve. Trivial pulmonic valve insufficiency. Great Vessels Normal aortic root. Normal arch. Normal inferior vena cava. Inferior vena cava collapse with sniff. Pericardium/Pleural No pericardial effusion. MMode/2D Measurements & Calculations LVIDd: 5.1 cm IVSd: 1.4 cm Ao root diam: 3.3 cm LVIDs: 2.9 cm LVPWd: 1.2 cm RVDd: 4.3 cm FS: 44.2 % LAV(MOD-bp): 57.8 ml LVAd ap4: 28.3 cm2 SV(MOD-sp4): 53.6 ml LAV(MOD-bp) Indexed: 24.7 ml/m2 EDV(MOD-sp4): 81.4 ml LAV(MOD-sp2): 62.1 ml EDV(sp4-el): 83.9 ml LAV(MOD-sp4): 52.6 ml LVAs ap4: 14.3 cm2 ESV(MOD-sp4): 27.8 ml ESV(sp4-el): 26.7 ml EF(MOD-sp4): 65.9 % EF(sp4-el): 68.2 % SV(sp4-el): 57.2 ml LA A4 area: 18.9 cm2 LA dimension(2D): 4.8 cm RA A4 area: 13.0 cm2 Doppler Measurements & Calculations MV E max darrius: 106.9 cm/sec Lat Peak E' Darrius: 7.6 cm/sec Med Peak E' Darrius: 5.2 cm/sec MV A max darrius: 114.4 cm/sec E/E' lat: 14.2 E/E' med: 20.7 MV E/A: 0.93 MV V2 max: 128.9 cm/sec Ao V2 max: 155.7 cm/sec AI max darrius: 355.5 cm/sec MV max P.6 mmHg Ao max P.7 mmHg AI max P.5 mmHg MV V2 mean: 81.1 cm/sec Ao V2 mean: 112.7 cm/sec AI dec slope: 249.6 cm/sec2 MV mean P.0 mmHg Ao mean P.6 mmHg AI P1/2t: 417.1 msec MV V2 VTI: 44.9 cm Ao V2 VTI: 35.5 cm LV V1 max: 142.6 cm/sec PA V2 max: 97.1 cm/sec PI end-d darrius: 77.2 cm/sec LV V1 max P.1 mmHg TR max darrius: 271.1 cm/sec MV P1/2t-pr_phl: 71.0 msec TR max P.4 mmHg Interpretation Summary The estimated ejection fraction is 65 %. Stage 1 diastolic dysfunction. Trivial mitral valve insufficiency. Mild (1+) tricuspid valve insufficiency. Right ventricular systolic pressure estimated to be 30 mmHg. Mild (1+) aortic valve insufficiency. Compared to echo report dated 11/11/2017, no appreciable changes noted. TAG_START TAG_ENDED Ordering Physician: Lianna Garcia Referring Physician: Henrietta Givens Performed By: Nessa Dyer, LINDY, RVT
[2018-06-14] MEDS: 0.9% Normal Saline 1,000 ML 125 ML IV ×3 (02:35→19:47)
[2018-06-14 02:38] LABS: Hemoglobin A1c 7.5 % (4.2-6.3)
[2018-06-14 02:51] LABS: Magnesium 1.7 mg/dL (1.6-2.6); Thyroid Stim Hormone (TSH) 0.66 uIU/mL (0.358-3.74)
[2018-06-14 03:51] LABS: Anion Gap 10 (5-15); BUN 20 mg/dL (7-18); Calcium,Total 8.5 mg/dL (8.5-10.1); Chloride 107 mmol/L (98-107); Cholesterol 73 mg/dL (200); EST Glomerular Filtration Rate 77 mL/min (>60); Est Glom Filt Rate - Afr Amer 93 mL/min (>60); Estimated Creatinine Clearance 66.82 ml/min; Glucose 134 mg/dL (74-106); High Density Lipoprotein 39 mg/dL; Potassium 4.2 mmol/L (3.5-5.1); Sodium Level 140 mmol/L (136-145); Triglycerides 158 mg/dL; Very Low Density Lipoprotein 32 mg/dL (5-40)
--- NOTE | 2018-06-14 05:55 | EKG12_ITS ---
Test Reason : AM EKG Blood Pressure : / mmHG Vent. Rate : 072 BPM Atrial Rate : 072 BPM P-R Int : 216 ms QRS Dur : 102 ms QT Int : 426 ms P-R-T Axes : 031 065 068 degrees QTc Int : 466 ms Sinus rhythm with 1st degree A-V block Otherwise normal ECG Confirmed by RIVKA DUNCAN, RAHUL ([id number]), graphic editor GORGE MARTIN ([id number]) on 06/18/2018 4:06:38 PM Referred By: NATALI Confirmed By:RAHUL TINEO MD
[2018-06-14 07:10] LABS: Bedside Glucose 136 mg/dL (70-110)
[2018-06-14] MEDS: amLODIPine 5 MG Tablet PO (11:41)
[2018-06-14] MEDS: Famotidine 20 MG Tablet PO ×2 (11:41→21:59)
[2018-06-14] MEDS: Ferrous Sulfate 325 MG Tablet PO (11:41)
[2018-06-14] MEDS: Finasteride 5 MG Tablet PO (11:41)
[2018-06-14] MEDS: Rivaroxaban 20 MG Tablet PO (11:42)
[2018-06-14] MEDS: Metoprolol(XL)Succ 25 MG Tablet PO (11:42)
[2018-06-14] MEDS: Flecainide 100 MG Tablet PO ×2 (11:42→21:59)
[2018-06-14] MEDS: Lisinopril 10 MG Tablet PO (11:43)
--- NOTE | 2018-06-14 12:11 | PN_ITS ---
Patient Problems: Active and Suspected Problems (Last Reviewed 05/25/18 @ 13:32 by KENRICK Bosch) Vertigo (Acute) Subjective: Patient seen and examined. Dizziness improved. States this has been ongoing for a few weeks and has noted fluctuation in his blood pressure at home. States he noticed increased dizziness when his blood pressure runs low. Denies chest pain, shortness of breath. Denies unilateral weakness or focal deficits. Complains of foggy vision with episodes of vertigo/dizziness. - Physical Exam General: Alert, Oriented x3, Cooperative, No apparent distress HEENT: Atraumatic, PERRLA, EOMI, Normocephalic Neck: Supple, No JVD, Negative Carotid Bruits Lungs: Clear to auscultation, Normal air movement Cardiovascular: Regular rate, Regular Rhythm, Normal S1, Normal S2, No murmurs Abdomen: Bowel Sounds Present, Soft, Non Tender, Non-Distended, Obese Extremities: No clubbing, No cyanosis, No edema, Capillary Refill Less than 3 Seconds Skin: - - Chronic skin changes bilateral lower extremities Musculoskeletal: No Tenderness to Palpation of Joints or Extremities Neurological: Cranial nerves II-XII grossly intact, Neuro grossly intact Psych/Mental Status: Normal Affect, Appropriate Vital Signs Temp Pulse Resp BP Pulse Ox 97.8 F 81 16 135/60 H 96 06/14/18 10:00 06/14/18 11:42 06/14/18 10:00 06/14/18 10:00 06/14/18 10:00 Oxygen Delivery Method Room Air Weight: 249 lb 5.485 oz Body Mass Index (BMI) 33.7 Finger Stick Blood Glucose 123 Orthostatic Vital Signs Start: 06/14/18 02:38 Freq: q24h Status: Active Protocol: Activity Type Activity Date Activity User E-Sign Co-Sign Detail Recorded Client Recorded Date Recorded By Document 06/14/18 02:38 [facility] [id number] 06/14/18 02:44 KES 06/14/18 02:38 Orthostatic Vitals Standing -Blood Pressure (90/60-120/80 mm Hg) 152/60 H -Extremity Use Right Arm -Pulse Rate (60-100 beats/min) 72 Sitting -Blood Pressure (90/60-120/80 mm Hg) 143/58 H -Extremity Use Right Arm -Pulse Rate (60-100 beats/min) 71 Lying -Blood Pressure (90/60-120/80 mm Hg) 139/61 H -Extremity Use Right Arm -Pulse Rate (60-100 beats/min) 66 Intake and Output for Last 24 Hours 06/12/18 06/13/18 06/14/18 23:59 23:59 23:59 Intake Total 484 / 484 Balance 484 / 484 Laboratory Tests Past 24 Hrs 06/13/18 06/13/18 06/13/18 22:22 22:22 22:22 WBC 8.2 RBC 3.73 L Hgb 11.1 L Hct 34.7 L MCV 93.0 MCH 29.8 MCHC 32.0 RDW 13.2 RDW Differential 44.6 H Plt Count 217 MPV 9.4 Immature Gran % (Auto) 0.500 Neut % (Auto) 61.5 Lymph % (Auto) 26.7 Archer % (Auto) 9.4 Eos % (Auto) 1.5 Baso % (Auto) 0.4 Absolute Neuts (auto) 5.1 Absolute Lymphs (auto) 2.20 Total Counted Not Reportable Sodium 139 Potassium 4.1 Chloride 108 H Carbon Dioxide 24.0 Anion Gap 7 BUN 25 H Creatinine 1.10 Estim Creat Clear Calc 60.75 Est GFR (MDRD) Af Amer 83 Est GFR (MDRD) Non-Af 69 BUN/Creatinine Ratio 22.7 H Glucose 137 H Hemoglobin A1c Calcium 8.8 Magnesium 1.7 Troponin I < 0.015 Triglycerides Cholesterol LDL Cholesterol VLDL Cholesterol HDL Cholesterol TSH 0.66 06/13/18 06/14/18 06/14/18 22:22 02:30 02:30 WBC RBC Hgb Hct MCV MCH MCHC RDW RDW Differential Plt Count MPV Immature Gran % (Auto) Neut % (Auto) Lymph % (Auto) Archer % (Auto) Eos % (Auto) Baso % (Auto) Absolute Neuts (auto) Absolute Lymphs (auto) Total Counted Sodium 140 Potassium 4.2 Chloride 107 Carbon Dioxide 23.0 Anion Gap 10 BUN 20 H Creatinine 1.00 Estim Creat Clear Calc 66.82 Est GFR (MDRD) Af Amer 93 Est GFR (MDRD) Non-Af 77 BUN/Creatinine Ratio 20.0 Glucose 134 H Hemoglobin A1c 7.5 H Calcium 8.5 Magnesium Troponin I < 0.015 Triglycerides 158 Cholesterol 73 LDL Cholesterol 2 VLDL Cholesterol 32 HDL Cholesterol 39 L TSH 06/14/18 06/14/18 05:05 08:10 WBC RBC Hgb Hct MCV MCH MCHC RDW RDW Differential Plt Count MPV Immature Gran % (Auto) Neut % (Auto) Lymph % (Auto) Archer % (Auto) Eos % (Auto) Baso % (Auto) Absolute Neuts (auto) Absolute Lymphs (auto) Total Counted Sodium Potassium Chloride Carbon Dioxide Anion Gap BUN Creatinine Estim Creat Clear Calc Est GFR (MDRD) Af Amer Est GFR (MDRD) Non-Af BUN/Creatinine Ratio Glucose Hemoglobin A1c Calcium Magnesium Troponin I < 0.015 < 0.015 Triglycerides Cholesterol LDL Cholesterol VLDL Cholesterol HDL Cholesterol TSH POC Glucose 06/14/18 06/13/18 06:44 22:15 POC Glucose 136 H 123 H Medical Necessity - Tobacco Use Smoking Status: Never smoker Tobacco Use: Non-smoker Assessment/Plan All Active Problems (Last Reviewed 05/25/18 @ 13:32 by Therese Rehman, PREVOCATIONAL/REHABILITATION COUNSELOR-C) Vertigo (Acute) Malaise (Acute) Open wound of left lower extremity (Acute) Fall (Acute) Loss of equilibrium (Acute) Near syncope (Acute) history of right knee cap fracture (Resolved) Status post left foot surgery (Resolved) History of right knee surgery (Resolved) Pneumonia (Resolved) Atrial flutter (Resolved) S/P ablation operation for arrhythmia (Resolved) SVT (supraventricular tachycardia) (Resolved) 1. Vertigo, persistent, suspect BPPV-rule out CVA. CTA of neck showed no significant stenosis. Head CTA showed no acute findings in the brain. MRI of brain showed no acute infarct. Orthostatic vitals negative. Echo pending. PT/OT. Patient reports unsteady gait due to vertigo. PT eval pending. 2. History of VT, CAD-status post ablation. Troponin negative. Continue Xarelto, statin, metoprolol. 3. Hypertension-patient reports his blood pressure has been labile at home. Stable during admission. Continue to monitor. Continue home Norvasc, lisinopril, metoprolol regimen. 4. Type 2 diabetes mellitus-hold home oral regimen. Accu-Cheks before meals at bedtime with sliding scale insulin. Hemoglobin A1c 7.5%. 5. Hyperlipidemia-continue statin. 6. Iron deficiency anemia-stable, continue home iron supplementation. 7. Paroxysmal atrial fibrillation-continue home flecainide, metoprolol and Xarelto regimen. 8. Anxiety/depression-continue home regimen. 9. MACHELLE-continue BiPAP nightly. 10. Obesity-encourage diet lifestyle modifications. DVT prophylaxis-Xarelto. This patient was seen by JOSEFINA Johnson under the supervision of Dr. Rausch.
[2018-06-14 12:16] LABS: Bedside Glucose 169 mg/dL (70-110)
[2018-06-14] MEDS: Pramipexole Di-HCl 1 MG Tablet 2 MG PO (13:59)
[2018-06-14] MEDS: traMADol 50 MG Tablet 100 MG PO (14:04)
--- NOTE | 2018-06-14 14:07 | NURSING ---
pt used call light, staff could not hear what pt needed. staff entered room, pt had large tremors noted to bilateral arms and hands. this nurse called in the ROPE MAKER. pt able to answer orientation questions. VS stable. pt stated this happens at night for him and he takes ultram and miraprex. ROPE MAKER ordered to give miraprex early, see MAR for early administration of miraprex.
[2018-06-14] MEDS: DULoxetine Hcl 30 MG Capsule PO (17:29)
[2018-06-14 17:36] LABS: Bedside Glucose 179 mg/dL (70-110)
[2018-06-14] MEDS: Atorvastatin Calcium 10 MG Tablet PO (21:59)
[2018-06-14] MEDS: Gabapentin 300 MG Capsule PO (21:59)
[2018-06-14 22:11] LABS: Bedside Glucose 161 mg/dL (70-110)
[2018-06-15] VITALS (8 sets, daily range): BP systolic 129–149; BP diastolic 64–70; PULSE 66–75; RESP 18; TEMP 36.3–36.9; O2SAT 96–97
[2018-06-15] MEDS: Meclizine 12.5 MG Tablet PO ×2 (03:11→09:45)
[2018-06-15] MEDS: 0.9% Normal Saline 1,000 ML 125 ML IV ×2 (03:11→11:19)
[2018-06-15 06:07] LABS: Anion Gap 8 (5-15); BUN 15 mg/dL (7-18); BUN/Creat Ratio 16.8 RATIO (10-20); Calcium,Total 8.4 mg/dL (8.5-10.1); Chloride 109 mmol/L (98-107); Creatinine, Serum 0.89 mg/dL (0.70-1.30); EST Glomerular Filtration Rate 87 mL/min (>60); Est Glom Filt Rate - Afr Amer 106 mL/min (>60); Estimated Creatinine Clearance 75.08 ml/min; Glucose 128 mg/dL (74-106); Potassium 4.2 mmol/L (3.5-5.1); Sodium Level 143 mmol/L (136-145)
[2018-06-15] MEDS: Famotidine 20 MG Tablet PO (09:44)
[2018-06-15] MEDS: Rivaroxaban 20 MG Tablet PO (09:44)
[2018-06-15] MEDS: amLODIPine 5 MG Tablet PO (09:44)
[2018-06-15] MEDS: Metoprolol(XL)Succ 25 MG Tablet PO (09:44)
[2018-06-15] MEDS: Flecainide 100 MG Tablet PO (09:44)
[2018-06-15] MEDS: Finasteride 5 MG Tablet PO (09:44)
[2018-06-15] MEDS: Ferrous Sulfate 325 MG Tablet PO (09:45)
[2018-06-15] MEDS: Lisinopril 10 MG Tablet PO (09:45)
[2018-06-15] MEDS: DULoxetine Hcl 30 MG Capsule PO (09:45)
[2018-06-15 10:20] LABS: Bedside Glucose 145 mg/dL (70-110)
--- NOTE | 2018-06-15 11:34 | DCINST_ITS ---
- Discharge Diagnoses Current Active Problems: Current Active and Chronic Problems (Last Reviewed 05/25/18 @ 13:32 by KENRICK Bosch) Vertigo (Acute) PAF (paroxysmal atrial fibrillation) (Chronic) You will use the following diet at home:: Calorie/Carbohydrate Controlled (specify 1200, 1400, etc), Cardiac Discharge Activity: Return to Normal Activity, Use Walker Call your doctor if you observe: Shortness of breath, Dizziness, Fainting spells, Chest pain Allergies/Adverse Reactions: Allergies hydrocodone [From Vicodin] Allergy (Mild, Verified 05/25/18 12:28) hydrocodone bitartrate [From Vicodin] Allergy (Verified 05/25/18 12:28) Other hydroxyzine Adverse Reaction (Verified 05/25/18 12:28) Other CALLED DIZZINESS Medications to take at Discharge Cyanocobalamin (Vitamin B-12) [B-12] 1,000 mcg PO DAILY #30 tab 11/12/17 ergocalciferol (vitamin D2) 50,000 unit capsule 50,000 unit PO QMONTH #10 cap 12/04/17 finasteride 5 mg tablet 5 mg PO DAILY #90 tab 12/04/17 metformin 1,000 mg tablet 1,000 mg PO BIDCM #120 tab 12/04/17 metoprolol succinate ER 25 mg tablet,extended release 24 hr 25 mg PO DAILY #90 tab 12/04/17 rivaroxaban 20 mg tablet 20 mg PO DAILY #90 tab 12/04/17 amlodipine 5 mg tablet 5 mg PO QDAY #90 tab 01/13/18 sitagliptin 100 mg tablet 50 mg PO QDAY tab 02/17/18 flecainide 100 mg tablet 100 mg PO Q12H #180 tab 02/19/18 Simvastatin 20 mg PO .COMPLEX 03/05/18 levomilnacipran ER 40 mg capsule,24 hr,extended release 40 mg PO DAILY #90 cap 03/06/18 ferrous sulfate 325 mg (65 mg iron) tablet 325 mg PO DAILY tab 04/13/18 gabapentin 300 mg capsule 300 mg PO QHS #90 cap 04/28/18 pramipexole 1 mg tablet 2 mg PO QHS #60 tab 04/28/18 dulaglutide 0.75 mg/0.5 mL subcutaneous pen injector 0.75 mg SC QWEEK #2 ml 04/30/18 tramadol 50 mg tablet 100 mg PO QHS PRN #60 tab 05/01/18 apremilast 30 mg tablet 30 mg PO BID 05/25/18 blood sugar diagnostic strips See Dose Instructions .ROUTE .MEDSUPPLY #100 ea 05/28/18 lancets 33 gauge See Dose Instructions .ROUTE .MEDSUPPLY #100 ea 05/28/18 blood-glucose meter kit See Dose Instructions .ROUTE .MEDSUPPLY #1 ea 06/10/18 Lisinopril [Prinivil] 10 mg PO QDAY 06/14/18 Meclizine HCl [Antivert] 12.5 mg PO Q6H PRN #10 tablet 06/15/18 The following prescriptions were given: Meclizine HCl [Antivert] 12.5 mg PO Q6H PRN #10 tablet PRN Reason: Vertigo Primary Care Physician: Tosha Shrestha MD [Primary Care Provider] - Please follow up with your Primary Care Physician in: 1 Week Test Results: Test results from this visit will be discussed in further detail at your follow- up appointment, if applicable. Please Follow Up With: Outpatient Physical Therapy Proposed Discharge Date: 06/15/18
--- NOTE | 2018-06-15 11:35 | PCM.DC.SUM ---
<Bhavya Farfan - Last Filed: 06/15/18 11:42> Discharge Date and Diagnosis Date of Admission: 06/14/18 Date of Discharge: 06/15/18 - Primary Discharge Diagnosis Active and Suspected Problems (Last Reviewed 05/25/18 @ 13:32 by Therese Rehman NP-[place]) 1. Vertigo, persistent, suspect BPPV-CVA ruled out. 2. History of VT, CAD 3. Hypertension 4. Type 2 diabetes mellitus 5. Hyperlipidemia 6. Iron deficiency anemia 7. Paroxysmal atrial fibrillation 8. Anxiety/depression 9. MACHELLE 10. Obesity - Secondary Discharge Diagnosis Chronic Problems (Last Reviewed 05/25/18 @ 13:32 by Therese Rehman NP-C) PAF (paroxysmal atrial fibrillation) (Chronic) BMI 34.0-34.9,adult (Chronic) Anxiety and depression (Chronic) Polypharmacy (Chronic) Atherosclerotic heart disease of jamul coronary artery without angina pectoris (Chronic) HLD (hyperlipidemia) (Chronic) Paroxysmal atrial flutter (Chronic) ablation 2005, [facility] 2012,2014,2016 De Quervain's tenosynovitis (Chronic) Body mass index (BMI) of 39.0-39.9 in adult (Chronic) Diabetes mellitus (Chronic) BPH (benign prostatic hyperplasia) (Chronic) History of renal calculi (Chronic) Cardiac dysrhythmia (Chronic) Dyslipidemia (Chronic) HTN (hypertension) (Chronic) Obstructive sleep apnea (Chronic) 17/13 cmH2O RLS (restless legs syndrome) (Chronic) History of prior ablation treatment (Chronic) 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 The dominant right vertebral artery. Electronically Signed: Kimo Crisostomo MD at 0:02 EDT Tel , Service support , ADDENDUM: 06/14/18 0048 Neck CTA 06/13/18 22:28 Brain MRI 06/14/18 01:56 IMPRESSION: 1. Involutional changes of the brain, as described above. 2. No MR evidence for acute infarct. Electronically Signed: Shi Mary MD at 11:50 EDT , Service support , Operations: None Procedures: 2-D Echocardiogram Summary of Care Provided: The patient is a 77 year old M admitted 06/14/2018 due to vertigo. Patient reported room spinning sensation, lightheadedness intermittently for 2 weeks associated with positional changes. 1. Vertigo, persistent, suspect BPPV-CVA ruled out. CTA of neck showed no significant stenosis. Head CTA showed no acute findings in the brain. MRI of brain showed no acute infarct. Orthostatic vitals negative. Echo pending, will be reviewed prior to discharge. Patient denies further dizziness at discharge. Will discharged with Antivert as needed for vertigo. Recommend PT as outpatient for vestibular rehab. Follow-up with primary care physician in 1 week. If patient's vertigo symptoms recur, recommend referral to ENT. 2. History of VT, CAD-status post ablation. Troponin negative. Continue Xarelto, statin, metoprolol. 3. Hypertension-patient reports his blood pressure has been labile at home. Stable during admission. Continue to monitor. Continue home Norvasc, lisinopril, metoprolol regimen. 4. Type 2 diabetes mellitus-continue home oral regimen. Hemoglobin A1c 7.5%. 5. Hyperlipidemia-continue statin. 6. Iron deficiency anemia-stable, continue home iron supplementation. 7. Paroxysmal atrial fibrillation-continue home flecainide, metoprolol and Xarelto regimen. 8. Anxiety/depression-continue home regimen. 9. MACHELLE-continue BiPAP nightly. 10. Obesity-encourage diet lifestyle modifications. General: Alert, Oriented x3, Cooperative, No apparent distress HEENT: Atraumatic, PERRLA, EOMI, Normocephalic Neck: Supple, No JVD, Negative Carotid Bruits Lungs: Clear to auscultation, Normal air movement Cardiovascular: Regular rate, Regular Rhythm, Normal S1, Normal S2, No murmurs Abdomen: Bowel Sounds Present, Soft, Non Tender, Non-Distended, Obese Extremities: No clubbing, No cyanosis, No edema, Capillary Refill Less than 3 Seconds Skin: - - Chronic skin changes bilateral lower extremities Musculoskeletal: No Tenderness to Palpation of Joints or Extremities Neurological: Cranial nerves II-XII grossly intact, Neuro grossly intact Psych/Mental Status: Normal Affect, Appropriate Patient seen exam prior to discharge. Physical assessment as noted above. Patient stable for discharge home with the follow-up her conditions as noted above. This patient was seen by JOSEFINA Johnson under the supervision of Dr. Rojas. - Physical Exam Vital Signs Temp Pulse Resp BP Pulse Ox 97.3 F L 71 18 129/64 H 97 06/15/18 09:39 06/15/18 09:44 06/15/18 09:50 06/15/18 09:39 06/15/18 09:39 Oxygen Delivery Method Room Air Weight: 249 lb 5.485 oz Body Mass Index (BMI) 33.7 Finger Stick Blood Glucose 123 Intake and Output for Last 24 Hours 06/13/18 06/14/18 06/15/18 23:59 23:59 23:59 Intake Total 2623 / 2623 1725 / 1725 Balance 2623 / 2623 1725 / 1725 Laboratory Tests Past 24 Hrs 06/15/18 05:00 Sodium 143 Potassium 4.2 Chloride 109 H Carbon Dioxide 26.0 Anion Gap 8 BUN 15 Creatinine 0.89 Estim Creat Clear Calc 75.08 Est GFR (MDRD) Af Amer 106 Est GFR (MDRD) Non-Af 87 BUN/Creatinine Ratio 16.8 Glucose 128 H Calcium 8.4 L POC Glucose 06/15/18 06/14/18 06/14/18 06:50 21:56 17:33 POC Glucose 145 H 161 H 179 H 06/14/18 11:43 POC Glucose 169 H Discharge Diet: Low fat/ Low Cholesterol, 1800 Calorie Control Diet, Carb Control Diet Discharge Activity: Return to Normal Activity, Use Walker Call your doctor if you observe: Shortness of breath, Dizziness, Fainting spells, Chest pain Home Medications: Medications to take at Discharge Cyanocobalamin (Vitamin B-12) [B-12] 1,000 mcg PO DAILY #30 tab 11/12/17 ergocalciferol (vitamin D2) 50,000 unit capsule 50,000 unit PO QMONTH #10 cap 12/04/17 finasteride 5 mg tablet 5 mg PO DAILY #90 tab 12/04/17 metformin 1,000 mg tablet 1,000 mg PO BIDCM #120 tab 12/04/17 metoprolol succinate ER 25 mg tablet,extended release 24 hr 25 mg PO DAILY #90 tab 12/04/17 rivaroxaban 20 mg tablet 20 mg PO DAILY #90 tab 12/04/17 amlodipine 5 mg tablet 5 mg PO QDAY #90 tab 01/13/18 sitagliptin 100 mg tablet 50 mg PO QDAY tab 02/17/18 flecainide 100 mg tablet 100 mg PO Q12H #180 tab 02/19/18 Simvastatin 20 mg PO .COMPLEX 03/05/18 levomilnacipran ER 40 mg capsule,24 hr,extended release 40 mg PO DAILY #90 cap 03/06/18 ferrous sulfate 325 mg (65 mg iron) tablet 325 mg PO DAILY tab 04/13/18 gabapentin 300 mg capsule 300 mg PO QHS #90 cap 04/28/18 pramipexole 1 mg tablet 2 mg PO QHS #60 tab 04/28/18 dulaglutide 0.75 mg/0.5 mL subcutaneous pen injector 0.75 mg SC QWEEK #2 ml 04/30/18 tramadol 50 mg tablet 100 mg PO QHS PRN #60 tab 05/01/18 apremilast 30 mg tablet 30 mg PO BID 05/25/18 blood sugar diagnostic strips See Dose Instructions .ROUTE .MEDSUPPLY #100 ea 05/28/18 lancets 33 gauge See Dose Instructions .ROUTE .MEDSUPPLY #100 ea 05/28/18 blood-glucose meter kit See Dose Instructions .ROUTE .MEDSUPPLY #1 ea 06/10/18 Lisinopril [Prinivil] 10 mg PO QDAY 06/14/18 Meclizine HCl [Antivert] 12.5 mg PO Q6H PRN #10 tablet 06/15/18 Following Prescrptions Were Given to Patient: Meclizine HCl [Antivert] 12.5 mg PO Q6H PRN #10 tablet PRN Reason: Vertigo Primary Care Physician: Tosha Shrestha MD [Primary Care Provider] - Please follow up with your Primary Care Physician in: 1 Week Please Follow Up With: Outpatient Physical Therapy Disposition: Home Minutes spent on discharge:: 35 Patient Condition:: Stable Medical Necessity - Tobacco Use Smoking Status: Never smoker Tobacco Use: Non-smoker Meaningful Use Info Meaningful Use Diagnoses (Choose all that apply): None applicable <Werner Rojas E - Last Filed: 06/15/18 15:13> Discharge Date and Diagnosis - Secondary Discharge Diagnosis Chronic Problems (Last Reviewed 05/25/18 @ 13:32 by Therese Rehman NP-C) PAF (paroxysmal atrial fibrillation) (Chronic) BMI 34.0-34.9,adult (Chronic) Anxiety and depression (Chronic) Polypharmacy (Chronic) Atherosclerotic heart disease of jamul coronary artery without angina pectoris (Chronic) HLD (hyperlipidemia) (Chronic) Paroxysmal atrial flutter (Chronic) ablation 2005, [facility] 2012,2015,2016 De Quervain's tenosynovitis (Chronic) Body mass index (BMI) of 39.0-39.9 in adult (Chronic) Diabetes mellitus (Chronic) BPH (benign prostatic hyperplasia) (Chronic) History of renal calculi (Chronic) Cardiac dysrhythmia (Chronic) Dyslipidemia (Chronic) HTN (hypertension) (Chronic) Obstructive sleep apnea (Chronic) 17/13 cmH2O RLS (restless legs syndrome) (Chronic) History of prior ablation treatment (Chronic) 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 Patient admitted for vertigo and lightheadedness that has been going on for 2 weeks. There was a concern that patient may have posterior circulation acute stroke. On admission, CTA of the head and neck that revealed no evidence of hemodynamically significant vascular disease or stenosis. MRI brain performed and showed no evidence of acute stroke. 2D echocardiogram revealed normal ejection fraction, stage I diastolic dysfunction and normal regional wall motion. Acute stroke without. Patient was treated with Antivert and the symptoms improved. Patient discharged home in a stable medical condition, discharged on Antivert as needed, continued on his chronic home medication without any changes, recommended follow-up with PCP in 1 week. - Physical Exam General: Alert, Oriented x3, Cooperative, No apparent distress. HEENT: Atraumatic, PERRLA, EOMI. Neck: Supple, No JVD, Negative Carotid Bruits, Trachea Midline, Thyroid Normal. Lungs: Clear to auscultation, Normal air movement, No rhonchi, No wheeze, No rales. Cardiovascular: Regular rate, Regular Rhythm, Normal S1, Normal S2, PMI Normal. Abdomen: Bowel Sounds Present, Soft, Non Tender, Non-Distended, No Hepato-splenomegaly. Extremities: No clubbing, No cyanosis, No edema Skin: No rashes, No breakdown Neurological: Neuro grossly intact Vital Signs are stable. This note was generated with [employer] dictation software. It may contain incorrect words, spelling, and punctuation that were not noted in checking the note before signing. - Physical Exam Vital Signs Temp Pulse Resp BP Pulse Ox 97.3 F L 72 18 129/64 H 97 06/15/18 09:39 06/15/18 11:07 06/15/18 09:50 06/15/18 09:39 06/15/18 09:39 Oxygen Delivery Method Room Air Weight: 249 lb 5.485 oz Body Mass Index (BMI) 33.7 Finger Stick Blood Glucose 123 Intake and Output for Last 24 Hours 06/13/18 06/14/18 06/15/18 23:59 23:59 23:59 Intake Total 2623 / 2623 2125 / 2125 Balance 2623 / 2623 2124 / 2124 Laboratory Tests Past 24 Hrs 06/15/18 05:00 Sodium 143 Potassium 4.2 Chloride 109 H Carbon Dioxide 26.0 Anion Gap 8 BUN 15 Creatinine 0.89 Estim Creat Clear Calc 75.08 Est GFR (MDRD) Af Amer 106 Est GFR (MDRD) Non-Af 87 BUN/Creatinine Ratio 16.8 Glucose 128 H Calcium 8.4 L POC Glucose 06/15/18 06/15/18 06/14/18 11:16 06:50 21:56 POC Glucose 206 H 145 H 161 H 06/14/18 17:33 POC Glucose 179 H Meaningful Use Info Meaningful Use Diagnoses (Choose all that apply): None applicable Code Visit OBSV E&M: 78642 Observation care discharge
--- NOTE | 2018-06-15 11:42 | DS.PCM_ITS ---
<Bhavya Farfan - Last Filed: 06/15/18 11:42> Discharge Date and Diagnosis Date of Admission: 06/14/18 Date of Discharge: 06/15/18 - Primary Discharge Diagnosis Active and Suspected Problems (Last Reviewed 05/25/18 @ 13:32 by Therese Rehman NP-Jerrell) 1. Vertigo, persistent, suspect BPPV-CVA ruled out. 2. History of VT, CAD 3. Hypertension 4. Type 2 diabetes mellitus 5. Hyperlipidemia 6. Iron deficiency anemia 7. Paroxysmal atrial fibrillation 8. Anxiety/depression 9. MACHELLE 10. Obesity - Secondary Discharge Diagnosis Chronic Problems (Last Reviewed 05/25/18 @ 13:32 by Therese Rehman NP-C) PAF (paroxysmal atrial fibrillation) (Chronic) BMI 34.0-34.9,adult (Chronic) Anxiety and depression (Chronic) Polypharmacy (Chronic) Atherosclerotic heart disease of [place] coronary artery without angina pectoris (Chronic) HLD (hyperlipidemia) (Chronic) Paroxysmal atrial flutter (Chronic) ablation 2005, [facility] 2012,2014,2016 De Quervain's tenosynovitis (Chronic) Body mass index (BMI) of 39.0-39.9 in adult (Chronic) Diabetes mellitus (Chronic) BPH (benign prostatic hyperplasia) (Chronic) History of renal calculi (Chronic) Cardiac dysrhythmia (Chronic) Dyslipidemia (Chronic) HTN (hypertension) (Chronic) Obstructive sleep apnea (Chronic) 17/13 cmH2O RLS (restless legs syndrome) (Chronic) History of prior ablation treatment (Chronic) 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 The dominant right vertebral artery. Electronically Signed: Kimo Crisostomo MD at 0:02 EDT Tel , Service support , ADDENDUM: 06/14/18 0048 Neck CTA 06/13/18 22:28 Brain MRI 06/14/18 01:56 IMPRESSION: 1. Involutional changes of the brain, as described above. 2. No MR evidence for acute infarct. Electronically Signed: Shi Mary MD at 11:50 EDT , Service support , Operations: None Procedures: 2-D Echocardiogram Summary of Care Provided: The patient is a 77 year old M admitted 06/14/2018 due to vertigo. Patient reported room spinning sensation, lightheadedness intermittently for 2 weeks associated with positional changes. 1. Vertigo, persistent, suspect BPPV-CVA ruled out. CTA of neck showed no significant stenosis. Head CTA showed no acute findings in the brain. MRI of brain showed no acute infarct. Orthostatic vitals negative. Echo pending, will be reviewed prior to discharge. Patient denies further dizziness at discharge. Will discharged with Antivert as needed for vertigo. Recommend PT as outpatient for vestibular rehab. Follow-up with primary care physician in 1 week. If patient's vertigo symptoms recur, recommend referral to ENT. 2. History of VT, CAD-status post ablation. Troponin negative. Continue Xarelto, statin, metoprolol. 3. Hypertension-patient reports his blood pressure has been labile at home. Stable during admission. Continue to monitor. Continue home Norvasc, lisinopril, metoprolol regimen. 4. Type 2 diabetes mellitus-continue home oral regimen. Hemoglobin A1c 7.5%. 5. Hyperlipidemia-continue statin. 6. Iron deficiency anemia-stable, continue home iron supplementation. 7. Paroxysmal atrial fibrillation-continue home flecainide, metoprolol and Xarelto regimen. 8. Anxiety/depression-continue home regimen. 9. MACHELLE-continue BiPAP nightly. 10. Obesity-encourage diet lifestyle modifications. General: Alert, Oriented x3, Cooperative, No apparent distress HEENT: Atraumatic, PERRLA, EOMI, Normocephalic Neck: Supple, No JVD, Negative Carotid Bruits Lungs: Clear to auscultation, Normal air movement Cardiovascular: Regular rate, Regular Rhythm, Normal S1, Normal S2, No murmurs Abdomen: Bowel Sounds Present, Soft, Non Tender, Non-Distended, Obese Extremities: No clubbing, No cyanosis, No edema, Capillary Refill Less than 3 Seconds Skin: - - Chronic skin changes bilateral lower extremities Musculoskeletal: No Tenderness to Palpation of Joints or Extremities Neurological: Cranial nerves II-XII grossly intact, Neuro grossly intact Psych/Mental Status: Normal Affect, Appropriate Patient seen exam prior to discharge. Physical assessment as noted above. Patient stable for discharge home with the follow-up her conditions as noted above. This patient was seen by JOSEFINA Johnson under the supervision of Dr. Rojas. - Physical Exam Vital Signs Temp Pulse Resp BP Pulse Ox 97.3 F L 71 18 129/64 H 97 06/15/18 09:39 06/15/18 09:44 06/15/18 09:50 06/15/18 09:39 06/15/18 09:39 Oxygen Delivery Method Room Air Weight: 249 lb 5.485 oz Body Mass Index (BMI) 33.7 Finger Stick Blood Glucose 123 Intake and Output for Last 24 Hours 06/13/18 06/14/18 06/15/18 23:59 23:59 23:59 Intake Total 2623 / 2623 1725 / 1725 Balance 2623 / 2623 1725 / 1725 Laboratory Tests Past 24 Hrs 06/15/18 05:00 Sodium 143 Potassium 4.2 Chloride 109 H Carbon Dioxide 26.0 Anion Gap 8 BUN 15 Creatinine 0.89 Estim Creat Clear Calc 75.08 Est GFR (MDRD) Af Amer 106 Est GFR (MDRD) Non-Af 87 BUN/Creatinine Ratio 16.8 Glucose 128 H Calcium 8.4 L POC Glucose 06/15/18 06/14/18 06/14/18 06:50 21:56 17:33 POC Glucose 145 H 161 H 179 H 06/14/18 11:43 POC Glucose 169 H Discharge Diet: Low fat/ Low Cholesterol, 1800 Calorie Control Diet, Carb Control Diet Discharge Activity: Return to Normal Activity, Use Walker Call your doctor if you observe: Shortness of breath, Dizziness, Fainting spells, Chest pain Home Medications: Medications to take at Discharge Cyanocobalamin (Vitamin B-12) [B-12] 1,000 mcg PO DAILY #30 tab 11/12/17 ergocalciferol (vitamin D2) 50,000 unit capsule 50,000 unit PO QMONTH #10 cap 12/04/17 finasteride 5 mg tablet 5 mg PO DAILY #90 tab 12/04/17 metformin 1,000 mg tablet 1,000 mg PO BIDCM #120 tab 12/04/17 metoprolol succinate ER 25 mg tablet,extended release 24 hr 25 mg PO DAILY #90 tab 12/04/17 rivaroxaban 20 mg tablet 20 mg PO DAILY #90 tab 12/04/17 amlodipine 5 mg tablet 5 mg PO QDAY #90 tab 01/13/18 sitagliptin 100 mg tablet 50 mg PO QDAY tab 02/17/18 flecainide 100 mg tablet 100 mg PO Q12H #180 tab 02/19/18 Simvastatin 20 mg PO .COMPLEX 03/05/18 levomilnacipran ER 40 mg capsule,24 hr,extended release 40 mg PO DAILY #90 cap 03/06/18 ferrous sulfate 325 mg (65 mg iron) tablet 325 mg PO DAILY tab 04/13/18 gabapentin 300 mg capsule 300 mg PO QHS #90 cap 04/28/18 pramipexole 1 mg tablet 2 mg PO QHS #60 tab 04/28/18 dulaglutide 0.75 mg/0.5 mL subcutaneous pen injector 0.75 mg SC QWEEK #2 ml 04/30/18 tramadol 50 mg tablet 100 mg PO QHS PRN #60 tab 05/01/18 apremilast 30 mg tablet 30 mg PO BID 05/25/18 blood sugar diagnostic strips See Dose Instructions .ROUTE .MEDSUPPLY #100 ea 05/28/18 lancets 33 gauge See Dose Instructions .ROUTE .MEDSUPPLY #100 ea 05/28/18 blood-glucose meter kit See Dose Instructions .ROUTE .MEDSUPPLY #1 ea 06/10/18 Lisinopril [Prinivil] 10 mg PO QDAY 06/14/18 Meclizine HCl [Antivert] 12.5 mg PO Q6H PRN #10 tablet 06/15/18 Following Prescrptions Were Given to Patient: Meclizine HCl [Antivert] 12.5 mg PO Q6H PRN #10 tablet PRN Reason: Vertigo Primary Care Physician: Tosha Shrestha MD [Primary Care Provider] - Please follow up with your Primary Care Physician in: 1 Week Please Follow Up With: Outpatient Physical Therapy Disposition: Home Minutes spent on discharge:: 35 Patient Condition:: Stable Medical Necessity - Tobacco Use Smoking Status: Never smoker Tobacco Use: Non-smoker Meaningful Use Info Meaningful Use Diagnoses (Choose all that apply): None applicable <Werner Rojas E - Last Filed: 06/15/18 15:13> Discharge Date and Diagnosis - Secondary Discharge Diagnosis Chronic Problems (Last Reviewed 05/25/18 @ 13:32 by Therese Rehman NP-C) PAF (paroxysmal atrial fibrillation) (Chronic) BMI 34.0-34.9,adult (Chronic) Anxiety and depression (Chronic) Polypharmacy (Chronic) Atherosclerotic heart disease of [place] coronary artery without angina pectoris (Chronic) HLD (hyperlipidemia) (Chronic) Paroxysmal atrial flutter (Chronic) ablation 2005, [facility] 2012,2015,2016 De Quervain's tenosynovitis (Chronic) Body mass index (BMI) of 39.0-39.9 in adult (Chronic) Diabetes mellitus (Chronic) BPH (benign prostatic hyperplasia) (Chronic) History of renal calculi (Chronic) Cardiac dysrhythmia (Chronic) Dyslipidemia (Chronic) HTN (hypertension) (Chronic) Obstructive sleep apnea (Chronic) 17/13 cmH2O RLS (restless legs syndrome) (Chronic) History of prior ablation treatment (Chronic) 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 Patient admitted for vertigo and lightheadedness that has been going on for 2 weeks. There was a concern that patient may have posterior circulation acute stroke. On admission, CTA of the head and neck that revealed no evidence of hemodynamically significant vascular disease or stenosis. MRI brain performed and showed no evidence of acute stroke. 2D echocardiogram revealed normal ejection fraction, stage I diastolic dysfunction and normal regional wall motion. Acute stroke without. Patient was treated with Antivert and the symptoms improved. Patient discharged home in a stable medical condition, discharged on Antivert as needed, continued on his chronic home medication without any changes, recommended follow-up with PCP in 1 week. - Physical Exam General: Alert, Oriented x3, Cooperative, No apparent distress. HEENT: Atraumatic, PERRLA, EOMI. Neck: Supple, No JVD, Negative Carotid Bruits, Trachea Midline, Thyroid Normal. Lungs: Clear to auscultation, Normal air movement, No rhonchi, No wheeze, No rales. Cardiovascular: Regular rate, Regular Rhythm, Normal S1, Normal S2, PMI Normal. Abdomen: Bowel Sounds Present, Soft, Non Tender, Non-Distended, No Hepato- splenomegaly. Extremities: No clubbing, No cyanosis, No edema Skin: No rashes, No breakdown Neurological: Neuro grossly intact Vital Signs are stable. This note was generated with [employer] dictation software. It may contain incorrect words, spelling, and punctuation that were not noted in checking the note before signing. - Physical Exam Vital Signs Temp Pulse Resp BP Pulse Ox 97.3 F L 72 18 129/64 H 97 06/15/18 09:39 06/15/18 11:07 06/15/18 09:50 06/15/18 09:39 06/15/18 09:39 Oxygen Delivery Method Room Air Weight: 249 lb 5.485 oz Body Mass Index (BMI) 33.7 Finger Stick Blood Glucose 123 Intake and Output for Last 24 Hours 06/13/18 06/14/18 06/15/18 23:59 23:59 23:59 Intake Total 2623 / 2623 2125 / 2125 Balance 2623 / 2623 2124 / 2124 Laboratory Tests Past 24 Hrs 06/15/18 05:00 Sodium 143 Potassium 4.2 Chloride 109 H Carbon Dioxide 26.0 Anion Gap 8 BUN 15 Creatinine 0.89 Estim Creat Clear Calc 75.08 Est GFR (MDRD) Af Amer 106 Est GFR (MDRD) Non-Af 87 BUN/Creatinine Ratio 16.8 Glucose 128 H Calcium 8.4 L POC Glucose 06/15/18 06/15/18 06/14/18 11:16 06:50 21:56 POC Glucose 206 H 145 H 161 H 06/14/18 17:33 POC Glucose 179 H Meaningful Use Info Meaningful Use Diagnoses (Choose all that apply): None applicable Code Visit OBSV E&M: 31375 Observation care discharge
[2018-06-15 11:56] LABS: Bedside Glucose 206 mg/dL (70-110)
[2018-06-15] MEDS: Insulin Lispro 100 UNIT/ML INSULN.PEN SC (12:07)
--- NOTE | 2018-06-15 12:10 | CASEMGMT ---
Per therapy note, they are recommending OP vestibular therapy for pt at this time. Pt would prefer to go to [facility] for same. Order with facesheet faxed to [facility] at this time. Pt provided with original copy of order at this time. Pt voices no further questions/concerns/needs at this time. Pt awaiting dispo. Tino AGUIRRE CM
--- NOTE | 2018-06-15 12:38 | CASEMGMT ---
TIMOTHY LOPEZ assessment: Face to Face with patient for initial transition planning/care coordination assessment. TIMOTHY LOPEZ introduced self and role at [facility], pt voices understanding and consents to assessment at this time. Pt is sitting up in chair in no distress at this time. Pt is A/Ox4 at this time and answers all questions appropriately at this time. Care providers, pharmacy, and demographics verified/updated at this time. PCP: Henrietta Specialists: Sue-cardio Preferred Pharmacy: [facility] Insurance: [facility] A/B, [place] Prescription Benefit: [facility] Living Will/HPOA: Pt has living will on file at [facility] and believes that he has HPOA paperwork with , Coby Ji, as HPOA but is aware at this time that the HPOA is not on file at [facility] at this time. LNOK: Coby Ji, ; Na Yepez, daughter Living Arrangements: Pt states lives with in 1 story condo and states no concerns at home at this time. Pt states that there is a flight of stairs to basement but he does not have to go down there. Pt states there are 2 steps into home and states no difficulty at this time. Transportation: Pt states drives self and states no transportation concerns at this time. DME/HHC: Pt states has a cane and walker at home and states no need for any further DME at this time. Pt states no hx of HHC but has been to [facility] in the past. Pt states no concerns with going home at time of discharge. Pt states does not smoke or drink ETOH. Pt was set up with OP vestibular therapy and states relief from Meclizine pill that was given. Pt states no further concerns/needs at this time. Advised pt to ask for CM if any further questions/concerns/needs arise, voices understanding. Plan: Home w/ OP therapy [place] TIMOTHY LOPEZ
--- NOTE | 2018-06-16 12:55 | CASEMGMT ---
FOLLOW-UP CALL: Patient states he's not doing as well as yesterday. He states he woke up feeling dizzy. He told me he took a Meclizine once today and it didn't do much. He states he cancelled his [facility] therapy since his legs felt weak. I encouraged patient to rest and come back to ED if he feels concerned that his symptoms are worsening. I encouraged patient to go ahead and make a new appointment for OP therapy, as this may help with his symptoms and he can always cancel again, if needed. He states he has an appointment scheduled with his PCP for the first week in June. Patient denies any needed assistance or questions and states agreement with plan.
== END 2018-06-15 13:30 | disposition home or self-care (01) | DRG 149 ==
LOC: ED 22:49 → PCU 06-14 01:26
PROVIDERS: Family Medicine; Admitting Provider Family Medicine; Emergency Provider Emergency Medicine; Family Provider Internal Medicine; PCP Internal Medicine; Visit Provider Hospitalist
DX: H81.10 Benign paroxysmal vertigo, unspecified ear (principal); I10 Essential (primary) hypertension; D50.9 Iron deficiency anemia, unspecified; E78.5 Hyperlipidemia, unspecified; I48.0 Paroxysmal atrial fibrillation; G47.33 Obstructive sleep apnea (adult) (pediatric); E66.9 Obesity, unspecified; Z68.33 Body mass index [BMI] 33.0-33.9, adult; I25.10 Atherosclerotic heart disease of native coronary artery without angina pectoris; Z79.01 Long term (current) use of anticoagulants; F41.9 Anxiety disorder, unspecified; F32.9 Major depressive disorder, single episode, unspecified; E11.42 Type 2 diabetes mellitus with diabetic polyneuropathy; N40.0 Benign prostatic hyperplasia without lower urinary tract symptoms; G25.81 Restless legs syndrome; Z79.84 Long term (current) use of oral hypoglycemic drugs; Z79.899 Other long term (current) drug therapy
CPT/HCPCS: 36415; 70496; 70498; 70551; 80048; 80061; 82962; 83036; 83735; 84443; 84484; 85025; 93005; 93306; 97163; 97166; 97530; 99285; J7030; Q9967; A4216

== ENCOUNTER → 2018-06-18 10:15 | Outpatient (CLI) | payer MEDICARE, BC, SELFPAY ==
[2018-06-18 12:12] LABS: Protein, Urine (Random) 102.9 mg/dL (<11.9); Protein:Creat Ratio 751 mg/g CRE (0-200)
[2018-06-18 12:35] LABS: Albumin, Serum 3.3 g/dL (3.2-5.0); BUN 16 mg/dL (7-18); BUN/Creat Ratio 14.3 RATIO (10-20); Calcium,Total 8.8 mg/dL (8.5-10.1); Chloride 102 mmol/L (98-107); Creatinine, Serum 1.12 mg/dL (0.70-1.30); EST Glomerular Filtration Rate 67 mL/min (>60); Est Glom Filt Rate - Afr Amer 81 mL/min (>60); Glucose 225 mg/dL (74-106); Phosphorus 2.6 mg/dL (2.5-4.9); Sodium Level 139 mmol/L (136-145)
== END ==
PROVIDERS: Family Provider Internal Medicine; PCP Internal Medicine; Referring Provider Internal Medicine Nephrology; Visit Provider Internal Medicine Nephrology
DX: E11.22 Type 2 diabetes mellitus with diabetic chronic kidney disease (principal); N18.3 Chronic kidney disease, stage 3 (moderate)
CPT/HCPCS: 36415; 80069; 82570; 84156

== ENCOUNTER → 2018-06-19 08:01 | Outpatient (CLI) | payer MEDICARE, BC, SELFPAY ==
[2018-06-19 10:34] LABS: Hemoglobin A1c 7.4 % (4.2-6.3)
[2018-06-19 10:37] LABS: Cholesterol 84 mg/dL (200); High Density Lipoprotein 40 mg/dL; Triglycerides 155 mg/dL; Very Low Density Lipoprotein 31 mg/dL (5-40)
[2018-06-19 11:08] LABS: Microalbumin:Creatinine Ratio 505.1 mg/g CRE (<30 mg/g CRE)
== END ==
PROVIDERS: Family Provider Internal Medicine; PCP Internal Medicine; Referring Provider Internal Medicine; Visit Provider Internal Medicine
DX: E11.42 Type 2 diabetes mellitus with diabetic polyneuropathy (principal); E78.5 Hyperlipidemia, unspecified
CPT/HCPCS: 36415; 80061; 82043; 82570; 83036

== ENCOUNTER 2018-07-13 11:54 | Outpatient (RCR) | payer MEDICARE, BC, SELFPAY ==
[2018-07-07 14:27] VITALS: BMI 34.5
== END 2018-07-17 23:59 ==
LOC: DC 11:54
PROVIDERS: Family Provider Internal Medicine; PCP Family Medicine Geriatric Medicine; Visit Provider Internal Medicine
DX: E11.42 Type 2 diabetes mellitus with diabetic polyneuropathy (principal); Z71.3 Dietary counseling and surveillance
CPT/HCPCS: G0108

== ENCOUNTER 2018-07-28 11:00 | Outpatient (RCR) | payer MEDICARE, BC, SELFPAY ==
--- NOTE | 2018-06-18 12:26 | HP.PTEVAL ---
Patient's Visit Information MARY SAN is a 77 year old M referred to Physical Therapy by KENRICK Johnson with a diagnosis of vertigo. Date of Evaluation: 06/18/18 Physical Therapist: Jonathan Gardner DPT, OC - Visit Plan Frequency: 1-2x /Week Duration: 2-4 Weeks Plan: 1-2x/week for 2-4 weeks to monitor positional and treat with adaptation as needed. - Subjective Subjective: Has neuropathy and pins in L ankle in the past. Thsi time was in hospital last Friday as he was lying on the floor as he gets spells where he gets lightheaded and can't steady self. Slid off bed onto floor. Went to ER and ran heart and brain tests. They think he has vertigo. Antivert was given to him which helped. Released the next day. Was tired the next day. Prior to this past weekend was doing wella nd felt steady. Not sure what caused problem, but was looking up to change a lightbulb and felt like falling backwards. Lasted only a few seconds. Then got worse that Friday evening and that is when he slid off bed and called ER. Also remembers Friday after noon measuring and looking up and felt loss of control and had to sit. Now when he looks up he gets light headed. Sleeps on back and is doing OK. 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 Needs to get back to tinkering in garage and unpacking which he can only tolerate short durations currently. Is avoiding washing dishes and sweeping floors. Feels tired adn lightheaded. Not walking due to not feeling great. - Objective Walks with cane into PT WITH SHORT STEPS. tRASNFERS ARE I. FGA and romberg shaky. - B hallpike adn roll test but more dizzy with L vs R. Treated with L joaquim precautionary. Oculomotor: no nystagmus with gaze or head shake. - pursuit and saccades for symptoms. convergence OK, - skew eye deviation. VOR horiz 20 seconds increases lightheadedness for one minute to 10/10 - Balance Scores Functional Gait Assessment Score: 18 % Disability: 40.0000 CATSIB Score (Max score 120 seconds): 62 - Goals Goal 1:: Abolish lightheadedness turning adn looking up Goal Time Frame: 2-4 Weeks Goal 2:: Pt feel back to normal as 4 weeks ago. Goal Time Frame: 2-4 Weeks Goal 3:: FGA to diminish fall risk. Goal Time Frame: 2-4 Weeks - Rehabilitation Potential Physical Therapy Diagnosis: Likely vestibular vertigo positional vs, hypofunction Rehabilitation Potential: Fair - Anticipated Interventions Patient/Client Instruction: Educate patient on: Condition, Plan of Care For the Purpose of:: To increase tolerance to activity/condition/position, To improve balance Comment: positional and adaptation ex/habituation as needed. For the Purpose of:: To increase tolerance to activity/condition/position, To improve ability of physical actions for home/community/work/leisure Thank you for the opportunity to evaluate your patient. For Medicare and Medicare HMO plans, please review the plan of care and approve it. It will need to be FAXED BACK to us at [phone] for Medicare purposes. Please let me know if there are questions or concerns regarding this plan of care. Physician Signature: Date:
--- NOTE | 2018-07-28 11:33 | HP.PTDCSUM ---
HP - PT D/C Summary It has been my pleasure to treat MARY SAN under orders from Bhavya Farfan, JAYEC, for the diagnosis of vertigo for a total of 5 visit(s). Discharge Date: 07/28/18 Please see the following information for a summary of their discharge status. - Subjective Subjective: Doing pretty good. Stride is lengthening out. Exercises help. No real problems since last session. Not real dizzy. If bends over for long time and straightens up quickly gets dizzy for 10 seconds. Blance feels good and using cane to ambulate, strides feel longer. Couldn't sleep one night after retirees dinner. [place]d [place] yesterday and is doing well. BP is fine. - Overall Improvement % Improvement: 100 - Objective Objective/Function: FGA+1 ffrom last time and +4 overall. Does ex properly and no dizzyness today. - Goals Goal 1:: Abolish lightheadedness turning adn looking up Goal Progress: Progressing Goal 2:: Pt feel back to normal as 4 weeks ago. Goal Progress: Goal Met Goal 3:: FGA to diminish fall risk. Goal Progress: Goal Met - Plan Plan: D/C - D/C Information Discharge Comments: Doing well, no further PT required. If there are questions or concerns regarding this patient's physical therapy, please feel free to call me at [phone]. Thank you for the referral of this patient. Sincerely, Jonathan Gardner, DPT, OC
== END 2018-07-28 19:00 | disposition home or self-care (01) ==
LOC: PT 11:00
PROVIDERS: Family Provider Internal Medicine; PCP Internal Medicine; Referring Provider Nurse Practitioner Family; Visit Provider Nurse Practitioner Family
DX: E11.22 Type 2 diabetes mellitus with diabetic chronic kidney disease (principal); R42 Dizziness and giddiness; N18.3 Chronic kidney disease, stage 3 (moderate); F11.20 Opioid dependence, uncomplicated
CPT/HCPCS: 36415; 80069; 82570; 84156; 97162; 97530

== ENCOUNTER 2018-08-04 11:21 | Outpatient (RCR) | payer MEDICARE, BC, SELFPAY ==
[2018-07-07 14:27] VITALS: BMI 34.5
[2018-07-27 14:54] VITALS: BMI 34.5
== END 2018-08-17 23:59 ==
LOC: DC 11:21
PROVIDERS: Family Provider Internal Medicine; PCP Internal Medicine; Visit Provider Internal Medicine
DX: E11.42 Type 2 diabetes mellitus with diabetic polyneuropathy (principal); Z71.3 Dietary counseling and surveillance
CPT/HCPCS: G0108

== ENCOUNTER 2018-09-01 13:05 | Outpatient (RCR) | payer MEDICARE, BC, SELFPAY ==
[2018-07-27 14:54] VITALS: BMI 34.5
== END 2018-09-17 23:59 ==
LOC: DC 13:05
PROVIDERS: Family Provider Internal Medicine; PCP Internal Medicine; Visit Provider Internal Medicine
DX: E11.42 Type 2 diabetes mellitus with diabetic polyneuropathy (principal); Z71.3 Dietary counseling and surveillance
CPT/HCPCS: G0108

== ENCOUNTER → 2018-09-29 09:00 | Outpatient (CLI) | payer MEDICARE, BC, SELFPAY ==
[2018-09-21 11:08] VITALS: BMI 34.5
--- NOTE | 2018-09-29 10:17 | SLEEP ---
The patient came in this morning for PAP education and training. I have worked with him in the past. His biggest complaint is with his RLS/PLMD symptoms. 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 His RLS symptoms in the evening are severe. He also has neuropathy that is being managed by Dr. Crane. The pt sees Dr. Crane at the end of the month to address the RLS/PLMS. His meds needs adjusted. He has been taking a dopamine agonist for [address] Shrestha is attempting to wean him off the Mirapex but their is no plan for adjusting and/or adding another medication. The pt takes 300mg of gabepentin and 2mg of Mirapex 1 hour before bed. His RLS has been worse. His neuropathy is worse. His meds need evaluated for effectiveness and ajustments. The pt currently wears a medium Suzette View. He has been unable to control leak. We discussed the relationship between mask leak and limb mvts at night. The Suzette View is a difficult mask control leak. I sent him home with a Dreamwear full face mask medium frame/ medium cushion. It seems to fit him much better than his current mask. I gave him education materials on RLS/PLMD and he will discuss with Dr. Crane. I emailed [employer] to udate his mask selection.
== END ==
PROVIDERS: Family Provider Internal Medicine; PCP Internal Medicine; Referring Provider Internal Medicine; Visit Provider Internal Medicine
DX: G47.33 Obstructive sleep apnea (adult) (pediatric) (principal)
CPT/HCPCS: 98960; G0463

== ENCOUNTER 2018-10-21 10:32 | Outpatient (RCR) | payer MEDICARE, BC, SELFPAY ==
[2018-07-27 14:54] VITALS: BMI 34.5
[2018-09-21 11:08] VITALS: BMI 34.5
== END 2018-11-15 23:59 ==
LOC: DC 10:32
PROVIDERS: Family Provider Internal Medicine; PCP Internal Medicine; Visit Provider Internal Medicine
DX: E11.42 Type 2 diabetes mellitus with diabetic polyneuropathy (principal); Z71.3 Dietary counseling and surveillance; L40.59 Other psoriatic arthropathy; L40.8 Other psoriasis; M21.40 Flat foot [pes planus] (acquired), unspecified foot; K76.0 Fatty (change of) liver, not elsewhere classified; M17.0 Bilateral primary osteoarthritis of knee; I12.9 Hypertensive chronic kidney disease with stage 1 through stage 4 chronic kidney disease, or unspecified chronic kidney disease; N18.9 Chronic kidney disease, unspecified; I48.92 Unspecified atrial flutter; G25.81 Restless legs syndrome; G47.33 Obstructive sleep apnea (adult) (pediatric); N40.1 Benign prostatic hyperplasia with lower urinary tract symptoms; F32.89 Other specified depressive episodes; Z86.718 Personal history of other venous thrombosis and embolism
CPT/HCPCS: 36415; 80053; 85025; G0108

== ENCOUNTER → 2018-10-21 11:48 | Outpatient (CLI) | payer MEDICARE, BC, SELFPAY ==
[2018-09-21 11:08] VITALS: BMI 34.5
[2018-10-21 13:48] LABS: Absolute Lymphocyte Count 1.66 X10^3/ul (0.83-4.51); Absolute Neutrophil Count 4.5 X10^3/uL (2.0-7.7); Basophil# 0.04 X10^3/uL; Basophil% 0.6 % (0-1); Eosinophil# 0.28 X10^3/uL; Eosinophils% 3.9 % (0-5); Hematocrit 38.2 % (40-54); Hemoglobin 11.7 g/dl (13.0-16.5); Lymphocyte # 1.66 X10^3/ul (4.0); Lymphocyte % 23.3 % (19-41); Mean Corp Hgb Conc 30.6 g/gl (32-36); Mean Corpuscular Volume 94.6 fL (80-94); Mean Platelet Vol. 9.8 fl (6.2-12.0); Monocyte# 0.67 X10^3/uL; Monocyte% 9.4 % (0-10); Neutrophil # 4.45 X10^3/uL (2.7-7.7); Neutrophil % 62.4 % (47-70); Platelet Count 227 K/mm3 (150-450); RBC Distribution Width CV 13.3 % (11.6-14.6); Red Blood Count 4.04 M/mm3 (4.6-6.2); White Blood Count 7.1 K/mm3 (4.4-11.0)
[2018-10-21 13:50] LABS: POSITIVE COUNT NO; POSITIVE DIFFERENTIAL NO; POSITIVE MORPHOLOGY NO
[2018-10-21 14:21] LABS: AST(SGOT) 23 U/L (15-37); Alanine Aminotransfer ALT/SGPT 31 U/L (16-61); Albumin, Serum 3.4 g/dL (3.2-5.0); Alkaline Phosphatase 66 U/L (45-117); Anion Gap 8 (5-15); BUN 15 mg/dL (7-18); Calcium,Total 9.1 mg/dL (8.5-10.1); Chloride 106 mmol/L (98-107); Creatinine, Serum 0.94 mg/dL (0.70-1.30); EST Glomerular Filtration Rate 82 mL/min (>60); Est Glom Filt Rate - Afr Amer 100 mL/min (>60); Globulin 3.4 g/dL (2.2-4.2); Glucose 124 mg/dL (74-106); Potassium 4.6 mmol/L (3.5-5.1); Protein, Total 6.8 g/dL (6.4-8.2); Sodium Level 141 mmol/L (136-145)
== END ==
PROVIDERS: Family Provider Internal Medicine; PCP Internal Medicine; Referring Provider Internal Medicine Rheumatology; Visit Provider Internal Medicine Rheumatology
DX: L40.59 Other psoriatic arthropathy (principal); L40.8 Other psoriasis; M21.40 Flat foot [pes planus] (acquired), unspecified foot; K76.0 Fatty (change of) liver, not elsewhere classified; M17.0 Bilateral primary osteoarthritis of knee; I12.9 Hypertensive chronic kidney disease with stage 1 through stage 4 chronic kidney disease, or unspecified chronic kidney disease; E11.22 Type 2 diabetes mellitus with diabetic chronic kidney disease; N18.9 Chronic kidney disease, unspecified; N20.0 Calculus of kidney; I48.92 Unspecified atrial flutter; G25.81 Restless legs syndrome; G47.33 Obstructive sleep apnea (adult) (pediatric); N40.1 Benign prostatic hyperplasia with lower urinary tract symptoms; F32.89 Other specified depressive episodes; Z86.718 Personal history of other venous thrombosis and embolism
CPT/HCPCS: 36415; 80053; 85025

== ENCOUNTER 2018-11-30 10:51 | Outpatient (RCR) | payer MEDICARE, BC, SELFPAY ==
[2018-11-16 00:12] VITALS: BMI 34.5
== END 2018-12-15 23:59 ==
LOC: DC 10:51
PROVIDERS: Family Provider Internal Medicine; PCP Internal Medicine; Visit Provider Internal Medicine
DX: E11.42 Type 2 diabetes mellitus with diabetic polyneuropathy (principal); Z71.3 Dietary counseling and surveillance
CPT/HCPCS: G0108

== ENCOUNTER 2018-12-16 13:56 | Outpatient (RCR) | payer MEDICARE, BC, SELFPAY ==
[2018-12-16 00:33] VITALS: BMI 35.2
== END 2018-12-16 23:59 | disposition home or self-care (01) ==
LOC: DC 13:56
PROVIDERS: Family Provider Internal Medicine; PCP Internal Medicine; Visit Provider Internal Medicine
DX: E11.42 Type 2 diabetes mellitus with diabetic polyneuropathy (principal); Z71.3 Dietary counseling and surveillance
CPT/HCPCS: G0108

== ENCOUNTER → 2018-12-29 12:23 | Outpatient (CLI) | payer MEDICARE, BC, SELFPAY ==
[2018-12-21 11:05] VITALS: BMI 35.2
[2018-12-29 14:02] LABS: Hematocrit 38.8 % (40-54); Hemoglobin 12.6 g/dl (13.0-16.5); Mean Corp Hgb Conc 32.5 g/gl (32-36); Mean Corpuscular Hgb 29.6 pg (27.0-32.0); Mean Corpuscular Volume 91.3 fL (80-94); Mean Platelet Vol. 9.7 fl (6.2-12.0); Platelet Count 226 K/mm3 (150-450); RBC Distribution Width CV 13.6 % (11.6-14.6); Red Blood Count 4.25 M/mm3 (4.6-6.2); White Blood Count 7.3 K/mm3 (4.4-11.0)
[2018-12-29 14:05] LABS: Albumin, Serum 3.5 g/dL (3.2-5.0); BUN 21 mg/dL (7-18); BUN/Creat Ratio 19.3 RATIO (10-20); Chloride 106 mmol/L (98-107); Creatinine, Serum 1.09 mg/dL (0.70-1.30); EST Glomerular Filtration Rate 69 mL/min (>60); Est Glom Filt Rate - Afr Amer 84 mL/min (>60); Glucose 172 mg/dL (74-106); Phosphorus 2.5 mg/dL (2.5-4.9); Potassium 4.7 mmol/L (3.5-5.1); Sodium Level 139 mmol/L (136-145)
[2018-12-29 14:12] LABS: Scan Indicated on CBC? Y/N NO
== END ==
PROVIDERS: Family Provider Internal Medicine; PCP Internal Medicine; Referring Provider Internal Medicine Nephrology; Visit Provider Internal Medicine Nephrology
DX: E11.22 Type 2 diabetes mellitus with diabetic chronic kidney disease (principal); N18.3 Chronic kidney disease, stage 3 (moderate)
CPT/HCPCS: 36415; 80069; 85027

== ENCOUNTER → 2018-12-30 08:18 | Outpatient (CLI) | payer MEDICARE, BC, SELFPAY ==
[2018-12-21 11:05] VITALS: BMI 35.2
[2018-12-30 10:07] LABS: Protein, Urine (Random) 116.2 mg/dL (<11.9); Protein:Creat Ratio 1139 mg/g CRE (0-200)
== END ==
PROVIDERS: Family Provider Internal Medicine; PCP Internal Medicine; Visit Provider Internal Medicine Nephrology
DX: E11.22 Type 2 diabetes mellitus with diabetic chronic kidney disease (principal); N18.3 Chronic kidney disease, stage 3 (moderate); E11.21 Type 2 diabetes mellitus with diabetic nephropathy
CPT/HCPCS: 82570; 84156

== ENCOUNTER → 2019-01-19 11:53 | Outpatient (CLI) | payer MEDICARE, BC, SELFPAY ==
[2018-12-21 11:05] VITALS: BMI 35.2
[2019-01-19 12:49] LABS: Erythrocyte Sedimentation Rate 13 mm/hr (0-20)
== END ==
PROVIDERS: Family Provider Internal Medicine; PCP Internal Medicine; Referring Provider Nurse Practitioner Family; Visit Provider Nurse Practitioner Family
DX: R51 Headache (principal)
CPT/HCPCS: 36415; 85652

== ENCOUNTER → 2019-01-22 15:12 | Outpatient (CLI) | payer MEDICARE, BC, SELFPAY ==
[2018-12-21 11:05] VITALS: BMI 35.2
--- NOTE | 2019-01-22 15:27 | MRI_ITS ---
STUDY: MRI BRAIN WITHOUT CONTRAST REASON FOR EXAM: Male, 78 years old. New constant headache TECHNIQUE: Standardized multiplanar fat and water weighted pulse sequences were obtained. COMPARISON: 14 June 2018 FINDINGS: There is no acute infarct, mass effect, midline shift, extra parenchymal fluid collections, hydrocephalus or herniation. There is mild frontal predominance brain atrophy. There is mild central pontine white matter involutional change. There are no intracranial hemorrhagic findings. Appearance is similar to prior. MRI/Brain without Contrast IMPRESSION: 1. No acute or focal findings. 2. No change since prior. 3. Unremarkable for age brain MR. Electronically Signed: Sixto Lu, at 17:01 EDT Tel , Service support ,
== END ==
PROVIDERS: Family Provider Internal Medicine; PCP Internal Medicine; Referring Provider Nurse Practitioner Family; Visit Provider Nurse Practitioner Family
DX: R51 Headache (principal); R53.1 Weakness; H53.8 Other visual disturbances
CPT/HCPCS: 70551

== ENCOUNTER → 2019-03-22 11:48 | Outpatient (CLI) | payer MEDICARE, BC, SELFPAY ==
[2019-03-22 11:05] VITALS: BMI 35.2
[2019-03-22 13:57] LABS: Absolute Lymphocyte Count 1.55 X10^3/uL (0.83-4.51); Absolute Neutrophil Count 4.5 X10^3/uL (2.0-7.7); Basophil# 0.06 X10^3/uL; Basophil% 0.9 % (0-1); Eosinophil# 0.31 X10^3/uL; Eosinophils% 4.4 % (0-5); Hematocrit 35.5 % (40-54); Hemoglobin 11.4 g/dL (13.0-16.5); Lymphocyte # 1.55 X10^3/ul (4.0); Lymphocyte % 22.1 % (19-41); Mean Corp Hgb Conc 32.1 g/dL (32-36); Mean Corpuscular Volume 93.4 fL (80-94); Mean Platelet Vol. 9.9 fl (6.2-12.0); Monocyte% 8.5 % (0-10); NRBC Flagged by Analyzer 0 % (0-5); Neutrophil # 4.45 X10^3/uL (2.7-7.7); Neutrophil % 63.4 % (47-70); Platelet Count 204 K/mm3 (150-450); RBC Distribution Width CV 13.1 % (11.6-14.6); RBC Distribution Width SD 44.9 fl (35.1-43.9)
[2019-03-22 14:14] LABS: AST(SGOT) 33 U/L (15-37); Alanine Aminotransfer ALT/SGPT 40 U/L (16-61); Albumin, Serum 3.2 g/dL (3.2-5.0); Alkaline Phosphatase 61 U/L (45-117); Anion Gap 7 (5-15); BUN 15 mg/dL (7-18); Calcium,Total 9.1 mg/dL (8.5-10.1); Chloride 107 mmol/L (98-107); Creatinine, Serum 0.94 mg/dL (0.70-1.30); EST Glomerular Filtration Rate 82 mL/min (>60); Est Glom Filt Rate - Afr Amer 100 mL/min (>60); Globulin 3.3 g/dL (2.2-4.2); Glucose 135 mg/dL (74-106); Potassium 4.7 mmol/L (3.5-5.1); Protein, Total 6.5 g/dL (6.4-8.2); Sodium Level 139 mmol/L (136-145)
== END ==
PROVIDERS: PCP Internal Medicine; Visit Provider Internal Medicine
DX: E11.42 Type 2 diabetes mellitus with diabetic polyneuropathy (principal); G47.33 Obstructive sleep apnea (adult) (pediatric)
CPT/HCPCS: 36415; 80053; 85025

== ENCOUNTER → 2019-03-29 06:00 | Outpatient (CLI) | payer MEDICARE, BC, SELFPAY ==
[2019-03-24 09:23] VITALS: BMI 35.9
== END ==
PROVIDERS: Family Provider Internal Medicine; PCP Internal Medicine; Referring Provider Nurse Practitioner Family; Visit Provider Nurse Practitioner Family
DX: I25.10 Atherosclerotic heart disease of native coronary artery without angina pectoris (principal); I10 Essential (primary) hypertension; I48.92 Unspecified atrial flutter; R53.83 Other fatigue; R42 Dizziness and giddiness
CPT/HCPCS: 78452; 93017; A9500; A4216; J2785

== ENCOUNTER → 2019-04-16 10:33 | Outpatient (CLI) | payer MEDICARE, BC, SELFPAY ==
[2019-03-24 09:23] VITALS: BMI 35.9
[2019-04-16 12:43] LABS: Absolute Lymphocyte Count 1.75 X10^3/uL (0.83-4.51); Absolute Neutrophil Count 5.3 X10^3/uL (2.0-7.7); Basophil# 0.07 X10^3/uL; Basophil% 0.8 % (0-1); Eosinophil# 0.32 X10^3/uL; Eosinophils% 3.9 % (0-5); Hematocrit 38.1 % (40-54); Hemoglobin 11.9 g/dL (13.0-16.5); Lymphocyte # 1.75 X10^3/ul (4.0); Lymphocyte % 21.1 % (19-41); Mean Corp Hgb Conc 31.2 g/dL (32-36); Mean Corpuscular Hgb 29.6 pg (27.0-32.0); Mean Corpuscular Volume 94.8 fL (80-94); Mean Platelet Vol. 9.8 fl (6.2-12.0); Monocyte# 0.75 X10^3/uL; NRBC Flagged by Analyzer 0 % (0-5); Neutrophil # 5.33 X10^3/uL (2.7-7.7); Neutrophil % 64.4 % (47-70); Platelet Count 230 K/mm3 (150-450); RBC Distribution Width CV 12.9 % (11.6-14.6); RBC Distribution Width SD 44.7 fl (35.1-43.9); Red Blood Count 4.02 M/mm3 (4.6-6.2); White Blood Count 8.3 K/mm3 (4.4-11.0)
[2019-04-16 13:11] LABS: ALB/GLOB Ratio 0.9 RATIO (0.9-2.4); AST(SGOT) 29 U/L (15-37); Alanine Aminotransfer ALT/SGPT 41 U/L (16-61); Albumin, Serum 3.4 g/dL (3.2-5.0); Alkaline Phosphatase 73 U/L (45-117); Anion Gap 4 (5-15); BUN 24 mg/dL (7-18); BUN/Creat Ratio 18.2 RATIO (10-20); Calcium,Total 9.2 mg/dL (8.5-10.1); Chloride 107 mmol/L (98-107); Creatinine, Serum 1.32 mg/dL (0.70-1.30); EST Glomerular Filtration Rate 56 mL/min (>60); Est Glom Filt Rate - Afr Amer 67 mL/min (>60); Globulin 3.8 g/dL (2.2-4.2); Glucose 168 mg/dL (74-106); Potassium 4.7 mmol/L (3.5-5.1); Protein, Total 7.2 g/dL (6.4-8.2); Sodium Level 138 mmol/L (136-145)
== END ==
PROVIDERS: Family Provider Internal Medicine; PCP Internal Medicine; Referring Provider Internal Medicine Rheumatology; Visit Provider Internal Medicine Rheumatology
DX: L40.59 Other psoriatic arthropathy (principal); L40.8 Other psoriasis; M21.40 Flat foot [pes planus] (acquired), unspecified foot; K76.0 Fatty (change of) liver, not elsewhere classified; M17.0 Bilateral primary osteoarthritis of knee
CPT/HCPCS: 36415; 80053; 85025

== ENCOUNTER 2019-04-23 13:29 | Emergency (ER) | payer MEDICARE, BC, SELFPAY ==
[2019-03-24 09:23] VITALS: BMI 35.9
[2019-04-23 13:30] VITALS: BP 143/60; PULSE 79; RESP 16; TEMP 36.7; O2SAT 98; BMI 35.6
--- NOTE | 2019-04-23 13:48 | EKG12_ITS ---
Test Reason : WEAKNESS Blood Pressure : / mmHG Vent. Rate : 067 BPM Atrial Rate : 067 BPM P-R Int : 212 ms QRS Dur : 106 ms QT Int : 420 ms P-R-T Axes : 080 042 064 degrees QTc Int : 443 ms Sinus rhythm with 1st degree A-V block Otherwise normal ECG Confirmed by CIRILO JOHNSON ([id number]), newspaper copy editor BARRY ROSARIO ([id number]) on 04/26/2019 2:24:09 PM Referred By: Leonora Spicer Confirmed By:CIRILO JOHNSON
[2019-04-23] MEDS: 0.9% Normal Saline 1,000 ML 15 ML IV (14:08)
[2019-04-23 14:15] VITALS: BP 129/67; BP 130/62; BP 138/67; PULSE 71; PULSE 73; PULSE 79
[2019-04-23 14:30] LABS: Absolute Lymphocyte Count 1.74 X10^3/uL (0.83-4.51); Absolute Neutrophil Count 3.9 X10^3/uL (2.0-7.7); Basophil# 0.06 X10^3/uL; Basophil% 0.9 % (0-1); Eosinophil# 0.27 X10^3/uL; Eosinophils% 4.1 % (0-5); Hematocrit 35.2 % (40-54); Hemoglobin 11.5 g/dL (13.0-16.5); Lymphocyte # 1.74 X10^3/ul (4.0); Lymphocyte % 26.1 % (19-41); Mean Corp Hgb Conc 32.7 g/dL (32-36); Mean Corpuscular Hgb 30.3 pg (27.0-32.0); Mean Corpuscular Volume 92.9 fL (80-94); Mean Platelet Vol. 10.6 fl (6.2-12.0); Monocyte# 0.65 X10^3/uL; Monocyte% 9.8 % (0-10); NRBC Flagged by Analyzer 0 % (0-5); Neutrophil % 58.5 % (47-70); Platelet Count 158 K/mm3 (150-450); RBC Distribution Width CV 12.8 % (11.6-14.6); RBC Distribution Width SD 43.4 fl (35.1-43.9); Red Blood Count 3.79 M/mm3 (4.6-6.2); White Blood Count 6.7 K/mm3 (4.4-11.0)
[2019-04-23 14:51] LABS: Anion Gap 8 (5-15); BUN 20 mg/dL (7-18); BUN/Creat Ratio 19.4 RATIO (10-20); Calcium,Total 8.7 mg/dL (8.5-10.1); Chloride 108 mmol/L (98-107); Creatinine, Serum 1.03 mg/dL (0.70-1.30); EST Glomerular Filtration Rate 74 mL/min (>60); Est Glom Filt Rate - Afr Amer 89 mL/min (>60); Estimated Creatinine Clearance 63.83 ml/min; Glucose 151 mg/dL (74-106); Potassium 4.5 mmol/L (3.5-5.1); Sodium Level 141 mmol/L (136-145); Thyroid Stim Hormone (TSH) 0.56 uIU/mL (0.358-3.74)
--- NOTE | 2019-04-23 15:22 | CT_ITS ---
STUDY: CT BRAIN WITHOUT CONTRAST REASON FOR EXAM: Male, 78 years old. Dizziness. Headache. RADIATION DOSAGE (If Supplied By Facility): CTDIvol = ( 44.99 ) mGy, DLP = ( 812.98 ) mGycm TECHNIQUE: Transaxial CT imaging of the brain was performed without administration of intravenous contrast material. Individualized dose optimization techniques were used for this CT. COMPARISON: 11/11/2017 FINDINGS: There is no acute bleed or infarct. There are stable chronic ischemic and atrophic changes. The ventricles are normal in configuration. There is no hydrocephalus. The visualized paranasal sinuses are clear. The mastoid air cells are well aerated. There is no skull fracture. CT/Brain/Head without Contrast IMPRESSION: Stable chronic ischemic and atrophic changes. No acute intracranial abnormality. Electronically Signed: Matti Blackwell, at 15:54 EDT Tel , Service support ,
[2019-04-23 15:24] LABS: Bacteria 0 SEEN /hpf (None Seen); Mucous, Urine 0 SEEN /hpf (<or=2+); Red Blood Cells-Urine 0 SEEN /hpf (0-5); Squamous Epithelial Cells - UA 0 SEEN /hpf (0-5); White Blood Cells 0 SEEN /hpf (0-5)
[2019-04-23 15:39] LABS: Color, Urine Yellow (Yellow); Glucose, Dipstick 100 mg/dl (Normal); Ketone-Dipstick Negative (Negative); Leukocyte Esterase-Dipstick Negative /ul (Negative); Nitrite-Dipstick Negative (Negative); Occult Blood-Urine Negative /ul (Negative); Protein-Dipstick 100 mg/dl (Negative); Urine Bilirubin Dipstick Negative (Negative); Urine Clarity Clear (Clear); Urine Urobilinogen Normal (Normal)
[2019-04-23 15:46] VITALS: BP 138/67; PULSE 72; RESP 16; O2SAT 100
--- NOTE | 2019-04-23 16:56 | ED.VISSUMM ---
- ER Visit Summary Date of Service: 04/23/19 Chief Complaint: [Fatigue] History of Present Illness: The patient is a 78 M [presents to the emergency department with increased fatigue over the last 3 days. Patient states that he is been falling asleep easily even on the toilet. Patient feels lightheaded and dizzy with standing at times. He denies any blood in stool or black tarry stool. Denies any chest pain or shortness of breath. He denies urinary symptoms. He denies any fevers. Patient does have a history of sleep apnea and does use BiPAP machine at home and he is been compliant with that. Patient has history of diabetes and hypertension as well as atrial flutter. He denies any falls or head injuries. Patient has had similar episodes of weakness like this and is currently wearing a 30-day event monitor.] Physical Examination: HEENT-PERRLA, EOMI. Cranial nerves II through XII grossly intact. TMs clear. Mucous membranes moist. No adenopathy. Cardiovascular-regular rate and rhythm without murmur or ectopy Lungs-clear to auscultation, chest wall stable without crepitus or subcu emphysema Abdomen-normoactive bowel sounds, soft, nontender, no rebound or rigidity, no peritoneal signs. Extremities-intact ?4, normal range of motion, normal pulses, atraumatic [] Test Results: [EKG obtained arrival shows sinus rhythm with a ventricular rate of 67 bpm with a first-degree AV block. CBC with additional count 6.7, hemoglobin 11.5, hematocrit 35, platelets 158. Chemistries unremarkable. Urinalysis normal. Troponin is less than 0.015. TSH was 0.56.] Emergency Department Course and Treatment: [Patient was treated with normal saline on arrival.] Treatment Plan: [Patient advised to follow-up with primary care physician as well as aviation metalsmith and neurologist if symptoms persist.] Disposition: [Discharged home in stable condition] Impression: [Generalized weakness-etiology uncertain Fatigue] This note was generated with [employer] dictation software. It may contain incorrect words, spelling, and punctuation that were not noted in review of the chart prior to signing ED Disposition - Plan for ED Patient: Referrals: Tosha Shrestha MD [Primary Care Provider] -
--- NOTE | 2019-04-23 16:59 | ED.DEP ---
ED Disposition - Plan for ED Patient: Instructions: WEAKNESS, Unk Cause Referrals: Tosha Shrestha MD [Primary Care Provider] - 3-5 Days
[2019-04-23 17:26] VITALS: BP 141/79; PULSE 62; RESP 15; O2SAT 98
== END 2019-04-23 17:27 | disposition home or self-care (01) ==
LOC: ED 13:49
PROVIDERS: Emergency Provider Emergency Medicine; Family Provider Internal Medicine; PCP Internal Medicine
DX: R53.1 Weakness (principal); R53.83 Other fatigue; G47.30 Sleep apnea, unspecified; I48.92 Unspecified atrial flutter; I10 Essential (primary) hypertension; E11.9 Type 2 diabetes mellitus without complications; Z79.84 Long term (current) use of oral hypoglycemic drugs; Z79.899 Other long term (current) drug therapy
CPT/HCPCS: 70450; 80048; 81001; 84443; 84484; 85025; 93005; 99285; J7030; A4216

== ENCOUNTER → 2019-05-07 06:09 | Outpatient (CLI) | payer MEDICARE, BC, SELFPAY ==
[2019-04-23 13:30] VITALS: BMI 35.6
--- NOTE | 2019-05-07 06:37 | MRI_ITS ---
STUDY: MRI CERVICAL SPINE WITHOUT CONTRAST REASON FOR EXAM: Male, 78 years old. Dizziness. Weakness. TECHNIQUE: Standardized fat and water weighted pulse sequences were obtained in the sagittal and axial planes. COMPARISON: None. FINDINGS: Increased T2 signal in the clemente (sagittal image 7 series 2). No abnormal cervical cord signal. Low T1 marrow signal with minimal STIR signal at the odontoid (sagittal image 8 series 3). Odontoid remains intact. No acute fracture line. No acute dislocation. No acute cortical destruction. Cervical straightening. No significant scoliosis. C2-3: Normal endplates. Normal disc height, signal and morphology. Normal central canal and intervertebral neural foramina. C3-4: Minimal endplate spondylosis. Normal disc height, signal and morphology.. Normal central canal. Moderate left neural foraminal narrowing. Normal right neural foramina. C4-5: Normal endplates. Disc bulge/osteophyte complex. Normal central canal. Moderate left neural foraminal narrowing. Mild right neural foraminal narrowing. C5-6: Normal endplates. Normal disc height, signal and morphology. Normal central canal. Mild bilateral neural foraminal narrowing. C6-7: Minimal endplate spondylosis. Shallow disc bulge. Mild right neural foraminal narrowing. Normal left neural foramina. C7-T1: Normal endplates. Normal disc height, signal and morphology. Normal central canal and intervertebral neural foramina. Normal vascular flow voids. Mild paraspinal muscle atrophy. No acute soft tissue process. MRI/Spine Cervical (Routine) IMPRESSION: No abnormal cervical cord signal Multilevel intervertebral disc disease without central canal narrowing Multilevel mild/moderate neural foraminal narrowing most severe at C4-5 Cervical straightening with mild osteoarthritis Chronic white matter changes predominating at the clemente Indeterminate odontoid lesion (possible atypical hemangioma; correlate medical history and correlate 3-6 month follow-up MRI) Electronically Signed: Jonathan Cannon DO at 9:53 EDT Tel , Service support ,
== END ==
PROVIDERS: Family Provider Internal Medicine; PCP Internal Medicine; Referring Provider Nurse Practitioner Family; Visit Provider Nurse Practitioner Family
DX: R42 Dizziness and giddiness (principal)
CPT/HCPCS: 72141

== ENCOUNTER → 2019-05-25 11:00 | Outpatient (CLI) | payer MEDICARE, BC, SELFPAY | PROVIDERS: Family Provider Internal Medicine; PCP Internal Medicine; Referring Provider Nurse Practitioner Acute Care; Visit Provider Nurse Practitioner Acute Care | DX: G47.33 Obstructive sleep apnea (adult) (pediatric) (principal) | CPT/HCPCS: 98960; G0463 ==

== ENCOUNTER 2019-05-26 08:47 | Emergency (ER) | payer MEDICARE, BC, SELFPAY ==
[2019-05-26 08:49] VITALS: BP 148/63; PULSE 75; RESP 17; TEMP 36.6; O2SAT 99; BMI 35.2
--- NOTE | 2019-05-26 09:26 | NURSING ---
PAGED NEUROLOGY FOR DR GRIMM
--- NOTE | 2019-05-26 09:32 | ED.VIS.BACK ---
History of Present Illness Chief Complaint: Lower Extremity Injury Detail of Chief Complaint: RLE pain Informant: Patient Onset: Weeks - 1 Context: Gradual Onset Chronic pain exacerbated by: no known injury Timing: Continuous Quality: Aching Location: Buttock, Right Leg Current Severity: Moderate Maximum Severity: Moderate Worsened by: improves with: Ambulation, Night time pain Relieved by: Medications - Tylenol temporarily. Not Relieved By: Sitting Associated Symptoms: - - No numbness or tingling, no bowel or bladder retention/incontinence or constipation. No saddle anesthesia. Pain is radiating to right lower extremity only, not the left. Narrative: Patient has been having back pain in the right lower buttock for the past several years. He states he has been seeing a sciatica physical therapist for about a year. In the past week or so he has noticed the pain radiating down to the right popliteal fossa area. This morning, he noticed it was going down to his foot/heel, down the back of his leg. No other new symptoms. He has chronic weakness in his legs, he states his right leg is no weaker than usual this morning. He has pain in his right buttocks still, it is a little worse, Tylenol helps for about 4 hours he is taking it 4 times a day. 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 (2) MACHELLE (obstructive sleep apnea) Status: Chronic (3) Orthostatic hypotension Status: Chronic (4) Atherosclerotic heart disease of [place] coronary artery without angina pectoris Status: Chronic (5) Essential (primary) hypertension Status: Chronic (6) HLD (hyperlipidemia) Status: Chronic (7) Paroxysmal atrial flutter Status: Chronic Comment: ablation 2005, DCCV 2012,2014,2016 Past Medical History - Allergies and Home Meds Allergies/Adverse Reactions: Allergies hydrocodone bitartrate [From Vicodin] Allergy (Verified 05/26/19 08:49) Other hydroxyzine Adverse Reaction (Verified 05/26/19 08:49) Other CALLED DIZZINESS Primary Care Physician: Tosha Shrestha MD [Primary Care Provider] - Surgical History: tonsillectomy, - - R knee Patella repair, ORIF of left foot from accident, cardiac ablations, T+A. Lives: Spouse/ Significant Other Smoking Status: Never smoker - Family History Maternal Family History: Family History (Last Reviewed 05/12/19 @ 10:30 by KENRICK Bosch) Father Diabetes Hypertension Cancer Mother Hypertension CVA (cerebral vascular accident) Sister Diabetes Son Diabetes Family History: Reports: Stroke - His mother had stroke in her 70's. Paternal Family History: Family History (Last Reviewed 05/12/19 @ 10:30 by KENRICK Bosch) Father Diabetes Hypertension Cancer Mother Hypertension CVA (cerebral vascular accident) Sister Diabetes Son Diabetes Family History: Reports: Cancer - Lung Review of Systems General: Denies: Chills, Fever, Sweats Cardiovascular: Denies: Chest pain, Palpitations Respiratory: Denies: Dyspnea, Cough, Dyspnea on exertion Gastrointestinal: Denies: Abdominal pain, Nausea, Vomiting, Diarrhea, Melena, Hematochezia Genitourinary: Reports: - - No bowel or bladder retention/incontinence Musculoskeletal: Reports: Back pain, Extremity Pain. Denies: Swelling Skin: Denies: Rash, Wounds Neurological: Reports: Weakness - BLE, chronic, unchanged. Denies: Headache, Numbness Physical Exam Vital Signs/Narrative: Vital Signs Temp Pulse Resp BP Pulse Ox 05/26/19 08:49 97.8 F 75 17 148/63 H 99 Inital Vital Signs reviewed: Yes General: Well nourished, Well developed, Obese Head: Normocephalic, Atraumatic Eyes: Perrl, EOMI Neck: Supple, Nontender Cardiovascular: Regular rate, Regular rhythm, No murmurs Respiratory: No distress, CTA bilaterally, Chest nontender Abdomen: Soft, Nontender, Nondistended, Normal bowel sounds. Negative for: Pulsatile mass Back: Normal Inspection, Paraspinal Tenderness - at right SI joint area; also in right sciatic notch, Negative SLR - Right, Negative SLR - Left Extremeties: Nontender, No edema, - - Painless internal/external rotation of right hip joint without groin pain. Skin: Normal color, No rash, No Trauma Neuro: Alert, Oriented, Normal Strength, Normal Sensation, Normal DTR, Normal Gait Psychological: Normal affect, Normal Mood Diagnostic/Tx/Re-eval - Medical Decision Making Patient likely has sciatica although he is objectively testing negative for it right now. He has no symptoms of cauda equina syndrome. He is able to walk. It is possible he has spinal stenosis, and is now involving a nerve root to the right giving him sciatica. He has had MRIs of his brain but never his lumbar spine. He is established with neurology here. I spoke with a nurse practitioner who has seen him multiple times at the clinic, and they will call him with appointment options to get him in within the next week for further evaluation. He does not need an emergent MRI. He is not in intractable pain. He is neurologically intact. He has equal distal pulses and no pulsatile mass. He is open to something for pain, and turns out he is already taking tramadol at home but only at nighttime for restless legs. He was advised that he may periodically take that during the day for pain in addition to the Tylenol which I recommend he continue using as needed, and he was given a tramadol here prior to discharge with his . All questions answered at the bedside, they are comfortable with this overall plan given reasons to return to the ER. ED Disposition - Plan for ED Patient: Disposition: Home or Assisted Living Diagnosis: Sciatica of right side Instructions: BACK PAIN w/ SCIATICA Referrals: Tosha Shrestha MD [Primary Care Provider] - NEUROLOGY [Provider Group] (they will call you for appt) Additional Instructions: You may take tramadol 1 tablet up to every 4-6 hours as needed for pain. Try to limit how often you take this, if you are taking 2 tablets at nighttime every day, try to limit tramadol to 4-5 tablets/day total.
[2019-05-26 09:52] VITALS: BP 151/70; PULSE 60; RESP 16; O2SAT 96
[2019-05-26] MEDS: traMADol 50 MG Tablet PO (09:52)
== END 2019-05-26 10:02 | disposition home or self-care (01) ==
PROVIDERS: Emergency Provider Emergency Medicine; Family Provider Internal Medicine; PCP Internal Medicine
DX: M54.31 Sciatica, right side (principal); I25.10 Atherosclerotic heart disease of native coronary artery without angina pectoris; I48.92 Unspecified atrial flutter; I10 Essential (primary) hypertension; E78.5 Hyperlipidemia, unspecified; G47.33 Obstructive sleep apnea (adult) (pediatric); Z79.01 Long term (current) use of anticoagulants; Z79.899 Other long term (current) drug therapy
CPT/HCPCS: 99283

== ENCOUNTER 2019-05-28 12:30 | Outpatient (RCR) | payer MEDICARE, BC, SELFPAY ==
--- NOTE | 2019-05-10 12:49 | HP.PTEVAL_ITS ---
Patient's Visit Information MARY SAN is a 78 year old M referred to Physical Therapy by Hafsa Cortez NP-C with a diagnosis of BPPV, generalized weakness.. Date of Evaluation: 05/10/19 Physical Therapist: Jonathan Gardner, DPT, OCS, CSCS - Visit Plan Frequency: 2x /Week Duration: 4-6 Weeks Plan: 2x/week for 2-4 weeks for. 1. Positional treatments. 2. Balance and strength as needed. 3. Monitor need for further vestibular intevention. - Subjective Findings: Dizzy talking to neighbor in early March out of nowhere. Went to hospital and MRI and heart monitor and didn't find any problems. Incident with neighbor made him have to sit for about 15 seconds. then happened again washing chrome on truck for about 5 minutes. Things get blurry and spin a little bit making him weak. Also happened a little bit one other time. In between episodes, does not feel good. feels weak in legs. Got up last Friday and was dizzy and needed to hang on alot that day and vomitted.. Needing to use wh walker but did not need it prior to last Friday. Gets dizzy still if moves head to much or work on computer. Eyes hurt. Coudn't find nothing at the ER, everything came back fine. Lives with , uses wh walker adn is trying to be active. Has avoided basement stairs since this . Has railing for two steps at back door. Was fine in February. Dresses self adn goes to bathroom. Uses walk in tub to shower. - Objective Walks with wh walker slow and labored but safe on firm flat surfcae. Trasnitions I with UE. - L hallpike brad, + R hallpike brad with up torsional nystagmus slighlty for 15 seconds. c/s aROM WFL to 30 B rotation and 25 ext. No pain. Treated with Octavio Kunz and instruct. - Goals Goal 1:: Abolish vertigo feeling adn generalized lightheadedness. Goal Time Frame: 2-4 Weeks Goal 2:: Balance FGA to minimize fall risk. Goal Time Frame: 4-6 Weeks Goal 3:: Pt feel 80% better overalla dn able to get to basement as needed safely. Goal Time Frame: 4-6 Weeks - Rehabilitation Potential Physical Therapy Diagnosis: Vertigo adn weakness, immobility. Rehabilitation Potential: Fair - Anticipated Interventions Patient/Client Instruction: Educate patient on: Condition, Plan of Care For the Purpose of:: To increase tolerance to activity/condition/position, To improve ability of physical actions for home/community/work/leisure, To improve gait and locomotor functions Therapeutic Exercise to Include: Strength training, Balance training Comment: positional For the Purpose of:: To improve muscle performance and motor function, To increase tolerance to activity/condition/position, To improve ability of ph ysical actions for home/community/work/leisure Thank you for the opportunity to evaluate your patient. For Medicare and Medicare HMO plans, please review the plan of care and approve it. It will need to be FAXED BACK to us at [phone] for Medicare purposes. For Medicare only, by signing this I certify the plan of care. Please let me know if there are questions or concerns regarding this plan of care. Physician Signature: Date:
--- NOTE | 2019-05-28 12:55 | HP.PTDCSUM ---
HP - PT D/C Summary It has been my pleasure to treat MARY SAN under orders from Hafsa Cortez, JAYEC, for the diagnosis of BPPV, generalized weakness. for a total of 3 visit(s). Discharge Date: 05/28/19 Please see the following information for a summary of their discharge status. - Subjective Subjective: Was walking alot with the rollator adn doing really well. Friday morning went to ER with R LBP adn sciatic and given tramadol. Somewhat better. Has had sciatic in the past but not lately. Not sure why it started. Will see doctor next friday. Dizzyness not a problem anymore. Resumed driving. was doing great walking. - Overall Improvement % Improvement: 95 - Objective Objective/Function: FGA is +2 and no problem walking today. LB ROM limited more in ext then flexion but walks up tall and I without walker today. No dizzyness lately. Pt comfortable with baalnce and dizzyness and more complaining of back today which may require treatment if it sticks around. I educated him on acute managemnt with ice, acitivity modificaation and slouch overcorrect ex. - Goals Goal 1:: Abolish vertigo feeling adn generalized lightheadedness. Goal Progress: Goal Met Goal 2:: Balance FGA to minimize fall risk. Goal Progress: Goal Met Goal 3:: Pt feel 80% better overalla dn able to get to basement as needed safely. Goal Progress: Goal Met - Plan Plan: d/c, PT may be appropriate after doctor f/u for LB. - D/C Information Discharge Comments: Dizzyness adn balance back to normal, back pain and sciatica is bigger problem right now. If there are questions or concerns regarding this patient's physical therapy, please feel free to call me at [phone]. Thank you for the referral of this patient. Sincerely, Jonathan Gardner, DPT, OCS, CSCS
== END 2019-05-28 19:00 | disposition home or self-care (01) ==
LOC: PT 12:30
PROVIDERS: Family Provider Internal Medicine; PCP Internal Medicine; Referring Provider Nurse Practitioner Family; Visit Provider Nurse Practitioner Family
DX: H81.10 Benign paroxysmal vertigo, unspecified ear (principal); R53.1 Weakness
CPT/HCPCS: 97162; 97530

== ENCOUNTER → 2019-06-23 11:33 | Outpatient (CLI) | payer MEDICARE, BC, SELFPAY ==
[2019-06-22 10:42] VITALS: BMI 35.2
--- NOTE | 2019-06-23 13:30 | NEURO ---
NCS and/or EMG Patient Report Ordering Doctor: Yordan Crane DATE OF SERVICE: 06/23/19 Jr Ji is a 78 year old male with complaints of numbness and tingling in both legs. Additionally has lower back pain radiating to the right lower limb. He presents for electrodiagnostic testing today, but which is only the right leg to be tested. Next Electrodiagnostic findings: Right peroneal motor nerve demonstrates normal distal latency with reduced amplitude and normal conduction velocity. The right tibial motor nerve demonstrates borderline prolonged distal latency with reduced amplitude. Prolonged right tibial and peroneal F wave. Prolonged right H reflex. Prolonged right sural latency. On needle EMG, all muscles tested in the right lower limb showed no evidence of acute denervation with motor units of increased amplitude and duration in the tibialis anterior and gastrocnemius. No denervation was noted in the right lumbar paraspinals. Electrodiagnostic assessment: This is an abnormal study in the right lower limb. 1. Electrodiagnostic findings suggestive of polyneuropathy as evidenced by motor axonal loss in the right peroneal and tibial nerves. There is also prolongation of the right sural response. Consider correlation with one upper limb as well as the left lower limb. Patient has had previous electrodiagnostic studies which have demonstrated polyneuropathy. 2. No elective diagnostic evidence is noted for lumbosacral radiculopathy. If there are any further questions, please do not hesitate to contact me
== END ==
PROVIDERS: Family Provider Internal Medicine; PCP Internal Medicine; Referring Provider Nurse Practitioner Family; Visit Provider Nurse Practitioner Family
DX: H81.10 Benign paroxysmal vertigo, unspecified ear (principal); R26.89 Other abnormalities of gait and mobility
CPT/HCPCS: 95886; 95909

== ENCOUNTER → 2019-08-09 15:21 | Outpatient (CLI) | payer MEDICARE, BC, SELFPAY ==
[2019-07-06 09:34] VITALS: BMI 35.9
[2019-08-09 17:53] LABS: Albumin, Serum 3.4 g/dL (3.2-5.0); BUN 14 mg/dL (7-18); BUN/Creat Ratio 13.2 RATIO (10-20); Calcium,Total 8.9 mg/dL (8.5-10.1); Chloride 107 mmol/L (98-107); Creatinine, Serum 1.06 mg/dL (0.70-1.30); EST Glomerular Filtration Rate 71 mL/min (>60); Est Glom Filt Rate - Afr Amer 86 mL/min (>60); Glucose 222 mg/dL (74-106); Phosphorus 2.3 mg/dL (2.5-4.9); Sodium Level 139 mmol/L (136-145)
[2019-08-09 17:57] LABS: Hematocrit 37.9 % (40-54); Mean Corp Hgb Conc 31.7 g/dL (32-36); Mean Corpuscular Hgb 29.3 pg (27.0-32.0); Mean Corpuscular Volume 92.4 fL (80-94); Mean Platelet Vol. 10.2 fl (6.2-12.0); Platelet Count 204 K/mm3 (150-450); RBC Distribution Width CV 13.2 % (11.6-14.6); RBC Distribution Width SD 44.8 fl (35.1-43.9)
== END ==
PROVIDERS: Family Provider Internal Medicine; PCP Internal Medicine; Referring Provider Internal Medicine Nephrology; Visit Provider Internal Medicine Nephrology
DX: E11.22 Type 2 diabetes mellitus with diabetic chronic kidney disease (principal); N18.3 Chronic kidney disease, stage 3 (moderate); D64.9 Anemia, unspecified
CPT/HCPCS: 36415; 80069; 85027

== ENCOUNTER → 2019-08-13 13:52 | Outpatient (CLI) | payer MEDICARE, BC, SELFPAY ==
[2019-07-06 09:34] VITALS: BMI 35.9
[2019-08-13 17:22] LABS: Protein, Urine (Random) 228.1 mg/dL (<11.9); Protein:Creat Ratio 1885 mg/g CRE (0-200)
== END ==
PROVIDERS: Family Provider Internal Medicine; PCP Internal Medicine; Referring Provider Internal Medicine Nephrology; Visit Provider Internal Medicine Nephrology
DX: E11.22 Type 2 diabetes mellitus with diabetic chronic kidney disease (principal); N18.3 Chronic kidney disease, stage 3 (moderate); D64.9 Anemia, unspecified
CPT/HCPCS: 82570; 84156

== ENCOUNTER 2019-08-27 14:00 | Outpatient (RCR) | payer MEDICARE, BC, SELFPAY ==
--- NOTE | 2019-06-15 12:34 | HP.PTEVAL_ITS ---
Patient's Visit Information MARY SAN is a 78 year old M referred to Physical Therapy by KENRICK Breaux with a diagnosis of LUMBAR RADICULOPATHY. Date of Evaluation: 06/15/19 Physical Therapist: Eliza Mcnally PT, Cert MDT - Visit Plan Frequency: 2-3x /Week Duration: 4-6 Weeks Plan: AQUATIC THERAPY FOR PAIN RELEIF, POSTURE CORRECTION/STRENGTHENING, INSTRUCTION IN APPROPRIATE BODY MECHANICS AND ACTIVITY MODIFICATIONS. DLS STARTING WITH A NEUTRAL SPINE PROGRESSING ROM TOLERATED. TUNDE LE ROM, STRETCHING AND STRENGTHENING. HEP INSTRUCTION. - Subjective Findings: Work/Leisure: RETIRED. 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 Disability: NO. Present symptoms: RIGHT BUTTOCK, HIP, THIGH, LEG AND FOOT PAIN. INTERMITTENT LBP. NO NUMBNESS OR TINGLING. Present since: YEARS. Pain Scale: WORST 9/10, LEAST 2/10. Currently: 8/10. Commenced as a result of: NO APPARENT REASON. Symptoms at onset: RIGHT HIP. Worse: MOVING THINGS, BENDING TO WASH LEGS SOMETIMES IT FEELS LIKE ITS CATCHING AND CAN'T GET BACK UP, PROLONGED STANDING AND WALKING. WHEN GETS UP AT NIGHT. Better: TYLONOL MAKES IT FEEL REAL GOOD. PAIN PATCHES. SITTING DOWN. HEATING PAD. Disturbed sleep: YES. Previous history/Previous treatment: PHYSICAL THERAPY, NO INJECTIONS. NO BACK SURGERY. NO HIP SURGERY. EMERGENCY DEPARTMENT. [facility] OFF AND ON FOR 5-6 YEARS. HASN'T BEEN TO [facility] SINCE ABOUT JANUARY 2019 DUE TO TEMPORARY RELIEF ONLY. STATES THIS PAIN WENT AWAY AND CAME BACK IN THE SUMMER FOR NO APPARENT REASON. Coughing/sneezing/straining: NEGATIVE. Gait: PATIENT REPORTS HE DOESN'T SEEM TO BE ABLE TO TAKE A FULL STRIDE AND HE SHUFFLES ALONG. USES A STRAIGHT CANE OR ROLLATOR UNLESS IN THE HOUSE. AFRAID RIGHT LE MIGHT GIVE OUT AND CAUSE HIM TO FALL. Difficulty initiating urinatin: NO. Accid ents: NO. Unexplained weight loss: NO. Imaging: NO LOW BACK OR RIGHT HIP IMAGING THAT PATIENT IS AWARE OF. PMH: LEFT FOOT ORIF, RIGHT KNEE PATELLAR ORIF. VERTIGO. - Objective Sitting/Standing Posture: POOR. INCREASED TRUNK FLEXION BUT NO RELEVENT LATERAL SHIFT. Active Correction of posture: BETTER. Other Observations: PATIENT IS ABLE TO INDEP'LY TRANSFER FROM SIT TO STAND WITH HANDS ON KNEES BUT DIFFICULT AND INCREASES RIGHT LOW BACK/HIP PAIN. Motor deficit: LLE 5/5 WITH MMT'ING EXCEPT HIP 4-/5. RIGHT LE: HIP 3+/5, KNEE EXT 4/5, KNEE FLEX 4/5, ANKLE 4/5. Sensory deficit: RIGHT LATERAL LEG SENSATIVITY COMPARED TO LEFT. ROM deficit: TIGHT TUNDE HS'S AND GASTROC SOLEUS COMPLEX'S RIGHT > LEFT. Reflexes: NT. Dural Signs: POSITIVE RIGHT LE. Lumbar mvmt loss: flex - MOD. ext - STEVE. R SG - STEVE. L SG - STEVE. Core strength: POOR. Palpation: TENDERNESS WITH PALPATION OF RIGHT LOW BACK REGION. - Goals Goal 1:: DECREASE C/O LOW BACK AND RIGHT LE SX'S. Goal Time Frame: 4-6 Weeks Goal 2:: IMPROVE PERSONAL CARE, LIFTING, WALKING, SITTING, STADNING, SLEEP, SOCIAL LIFE, TRAVEL AND HOMEMAKING FUNCTION Goal Time Frame: 4-6 Weeks Goal 3:: INSTRUCT IN PROPHYLAXIS Goal Time Frame: 4-6 Weeks - Rehabilitation Potential Rehabilitation Potential: Fair - Anticipated Interventions Patient/Client Instruction: Educate patient on: Condition, Plan of Care, Risk Factors, Benefits of Fitness Program For the Purpose of:: To improve self management Therapeutic Exercise to Include: Strength training, Body mechanics, Postural training, Flexibilty training, Gait and locomotor training, In an aquatic setting, Active ROM, Dynamic Lumbar Stabilization For the Purpose of:: To decrease pain, To increase ROM, To improve muscle performance and motor function, To increase tolerance to activity/condition/position, To improve ability of physical actions for home/community/work/leisure, To improve gait and locomotor functions Thank you for the opportunity to evaluate your patient. For Medicare and Medicare HMO plans, please review the plan of care and approve it. It will need to be FAXED BACK to us at [phone] for Medicare purposes. For Medicare only, by signing this I certify the plan of care. Please let me know if there are questions or concerns regarding this plan of care. Physician Signature: Date:
--- NOTE | 2019-07-14 15:27 | HP.PTREVAL ---
Hafsa Cortez, JOSEFINA-C, It has been my pleasure to treat MARY SAN over the last 9 visits for LUMBAR RADICULOPATHY. Please see the progress note below for an update on the physical therapy plan of care! Subjective: PATIENT REPORTS HE IS GETTING BETTER. ABLE TO WALK WITHOUT A CANE OR WALKER NOW. PATIENT REPORTS THE PAIN IN HIS HIP IS GONE AND HE JUST HAS A LITTLE BIT OF CALF PAIN NOW. INCREASED RIGHT CALF PAIN WALKING. Objective/Function: Motor deficit: LLE 5/5 WITH MMT'ING EXCEPT HIP 4/5. RIGHT LE: HIP 4/5, KNEE EXT 4/5, KNEE FLEX 5/5, ANKLE 5/5. Sensory deficit: NO. ROM deficit: TIGHT TUNDE HS'S AND GASTROC SOLEUS COMPLEX'S RIGHT > LEFT. Reflexes: NT. Dural Signs: NEGATIVE TUNDE LE'S. Lumbar mvmt loss: flex - MIN. ext - STEVE. R SG - STEVE. L SG - STEVE. Core strength: POOR. Palpation: NO BACK OR HIP TENDERNESS TODAY. Plan Plan: CONTINUE AQUATIC THERAPY 2X'S A WEEK FOR PROGRESSIONS TOLERATED. PATIENT AGREEABLE. Goals Goal 1:: DECREASE C/O LOW BACK AND RIGHT LE SX'S. Goal Time Frame: 4-6 Weeks Goal Progress: Progressing Goal 2:: IMPROVE PERSONAL CARE, LIFTING, WALKING, SITTING, STADNING, SLEEP, SOCIAL LIFE, TRAVEL AND HOMEMAKING FUNCTION Goal Time Frame: 4-6 Weeks Goal Progress: Progressing Goal 3:: INSTRUCT IN PROPHYLAXIS Goal Time Frame: 4-6 Weeks Goal Progress: Progressing Anticipated Interventions Patient/Client Instruction: Educate patient on: Condition, Plan of Care, Risk Factors, Benefits of Fitness Program For the Purpose of:: To improve self management Therapeutic Exercise to Include: Strength training, Body mechanics, Postural training, Flexibilty training, Gait and locomotor training, In an aquatic setting, Active ROM, Dynamic Lumbar Stabilization For the Purpose of:: To decrease pain, To increase ROM, To improve muscle performance and motor function, To increase tolerance to activity/condition/position, To improve ability of physical actions for home/community/work/leisure, To improve gait and locomotor functions Please do not hesitate to contact me at [phone] by phone or if you have questions or concerns regarding this new plan of care! Sincerely, Eliza Mcnally, PT, Cert MDT
--- NOTE | 2019-08-27 14:54 | HP.PTDCSUM ---
HP - PT D/C Summary It has been my pleasure to treat MARY SAN under orders from Hafsa Cortez, JOSEFINA-C, for the diagnosis of LUMBAR RADICULOPATHY for a total of 16 visit(s). Discharge Date: 08/27/19 Please see the following information for a summary of their discharge status. - Subjective Subjective: PATIENT REPORTS HE SAW HIS DOCTOR AGAIN TODAY FOR HIS BLOOD PRESSURE AND SHE INCREASED HIS BLOOD PRESSURE MEDICINE AGAIN. HE REPORTS HE IS USING HIS WALKER FOR SECURITY. STATES HE WOULD LIKE TO TAKE A BREAK FROM THERAPY UNTIL HE GETS HIS BLOOD PRESSURE UNDER CONTROL WITH HIS DOCTOR. PATIENT REPORTS HIS PAIN IS INTERMITTENT AND DULL NOT SHARP NOW. HE REPORTS AQUATIC THERAPY HAS HELPED A LOT A LONG WITH THE HOME EX'S. REPORTS HE HAS CHECKED OUT THE COMFORT INN TO CONTINUE ON HIS OWN ABLE. - Pain Back Pain Intensity (Out of 10): Unrated R hip Pain Intensity (Out of 10): Unrated - Overall Improvement % Improvement: 85 - Objective Objective/Function: PATIENT WAS SEEN TODAY FOR RE-ASSESSMENT OF PROGRESS TOWARD THE SET PT GOALS AND THE NEED FOR FURTHER PHYSICAL THERAPY VS READINESS FOR DISCHARGE. HE IS A GOOD CANDIDATE TO CONTINUE AQUATIC THERAPY 1-2 TIMES A WEEK TO HELP TRANSITION TO INDEP WATER EX BUT HE WOULD REALLY LIKE TO TAKE A BREAK FROM PT RIGHT NOW. UPON EXAM TODAY: PATIENT DEMONSTRATES INDEP SLOW GAIT WITH FWW X > 300 FEET IN AND 300 FT OUT. Motor deficit: TUNDE LE'S 5/5 WITH MMT'ING. Sensory deficit: NO. ROM deficit: TIGHT TUNDE HS'S AND GASTROC SOLEUS COMPLEX'S. Reflexes: NT. Dural Signs: NEGATIVE TUNDE LE'S. Lumbar mvmt loss: flex - MIN. ext - STEVE. R SG - STEVE. L SG - STEVE. Core strength: POOR. Palpation: NO BACK OR HIP TENDERNESS TODAY. - Goals Goal 1:: DECREASE C/O LOW BACK AND RIGHT LE SX'S. Goal Progress: Goal Met Goal 2:: IMPROVE PERSONAL CARE, LIFTING, WALKING, SITTING, STADNING, SLEEP, SOCIAL LIFE, TRAVEL AND HOMEMAKING FUNCTION Goal Progress: Goal Met Goal 3:: INSTRUCT IN PROPHYLAXIS Goal Progress: Goal Met - Plan Plan: D/C AT PATIENTS REQUEST. - D/C Information If there are questions or concerns regarding this patient's physical therapy, please feel free to call me at [phone]. Thank you for the referral of this patient. Sincerely, Eliza Mcnally PT, Cert MDT
== END 2019-08-27 19:00 | disposition home or self-care (01) ==
LOC: PT 14:00
PROVIDERS: Family Provider Internal Medicine; PCP Internal Medicine; Referring Provider Nurse Practitioner Family; Visit Provider Nurse Practitioner Family
DX: M54.10 Radiculopathy, site unspecified (principal)
CPT/HCPCS: 97113; 97162; 97164; 97530

== ENCOUNTER 2019-10-01 17:29 | Emergency (ER) | payer MEDICARE, BC, SELFPAY ==
[2019-08-30 08:08] VITALS: BMI 35.9
[2019-10-01 17:30] VITALS: BP 189/76; PULSE 69; RESP 16; TEMP 36.6; O2SAT 98; BMI 35.8
[2019-10-01 17:52] VITALS: BP 163/57; PULSE 65; RESP 22; O2SAT 96
--- NOTE | 2019-10-01 18:03 | CT_ITS ---
STUDY: CT BRAIN WITHOUT CONTRAST REASON FOR EXAM: Male, 79 years old. ELEVATED BP, SPELL OF DIZZINESS, H/O VERTIGO RADIATION DOSAGE (If Supplied By Facility): CTDIvol = ( 44.99 ) mGy, DLP = ( 796.11 ) mGycm TECHNIQUE: Transaxial CT imaging of the brain was performed without administration of intravenous contrast material. Individualized dose optimization techniques were used for this CT. COMPARISON: 04/23/2019. FINDINGS: Normal soft tissue structures. Normal calvarium. There is mild cerebral atrophy with widening of the extra-axial spaces and ventricular dilatation. There are areas of decreased attenuation within the white matter tracts of the supratentorial brain, consistent with microvascular disease changes. There is no intracranial hemorrhage. There are no findings of an acute ischemic infarction. Small, chronic left caudate lacunar infarct. Atherosclerotic calcification of the right vertebral and right cavernous carotid arteries. Normal visualized paranasal sinuses. CT/Brain/Head without Contrast IMPRESSION: 1. No acute findings. 2. Chronic left caudate lacunar infarct. 3. Mild microvascular ischemic changes. Atrophy. Electronically Signed: Chichi Varela MD at 18:53 EST Tel , Service support ,
--- NOTE | 2019-10-01 18:04 | EKG12_ITS ---
Test Reason : DYSRHYTHMIA Blood Pressure : / mmHG Vent. Rate : 065 BPM Atrial Rate : 092 BPM P-R Int : 000 ms QRS Dur : 094 ms QT Int : 472 ms P-R-T Axes : 028 059 072 degrees QTc Int : 490 ms Normal sinus rhythm Confirmed by CIRILO JOHNSON ([id number]), film and video editor GORGE MARTIN ([id number]) on 10/04/2019 3:36:53 PM Referred By: JAX Confirmed By:CIRILO JOHNSON
[2019-10-01 18:05] VITALS: BP 144/63; PULSE 66; RESP 19; O2SAT 97
--- NOTE | 2019-10-01 18:06 | ED.VIS.GEN ---
History of Present Illness Chief Complaint: Hypertension Detail of Chief Complaint: Dizzy Informant: Patient Onset: Today Narrative: Patient presents with an episode of dizziness that occurred around 1230 this afternoon. Patient states he was in the kitchen cooking his lunch when he had sudden onset of feeling like everything was spinning. His got his walker for him and he is able to make it to his chair. He got to check his blood pressure noted the systolic pressure to be in the 170s. He does keep a daily record and his blood pressures have been ranging from the 140s to 160s, occasionally into the 170s. Patient denies chest pain or palpitations. Patient states currently he does not have any dizziness he just feels very drained and tired. Patient does have a noted history of vertigo but states the symptoms at that time were much more severe he was unable to walk. 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 (4) Diabetes mellitus Status: Chronic (5) Diabetic polyneuropathy Status: Chronic (6) Essential (primary) hypertension Status: Chronic (7) HLD (hyperlipidemia) Status: Chronic (8) History of renal calculi Status: Chronic (9) Paroxysmal atrial flutter Status: Chronic Comment: ablation 2005, DCCV 2012,2014,2015 (10) RLS (restless legs syndrome) Status: Chronic (11) History of cardioversion Status: Resolved Comment: 2012,2014,2015 (12) History of left heart catheterization Status: Resolved Comment: 02/04/2006, 02/16/2013 (13) History of radiofrequency ablation procedure for cardiac arrhythmia Status: Resolved Comment: Successful catheter ablation of the AV wesley slow pathway 02/05/2006 (14) History of right knee surgery Status: Resolved Comment: 1979 Past Medical History - Allergies and Home Meds Allergies/Adverse Reactions: Allergies hydrocodone bitartrate [From Vicodin] Allergy (Verified 10/01/19 17:32) Other hydroxyzine Adverse Reaction (Verified 10/01/19 17:32) Other CALLED DIZZINESS Primary Care Physician: Tosha Shrestha MD [Primary Care Provider] - Prior records reviewed: Yes Surgical History: tonsillectomy, - - R knee Patella repair, ORIF of left foot from accident, cardiac ablations, T+A. Lives: Spouse/ Significant Other Smoking Status: Never smoker - Family History Maternal Family History: Family History (Last Reviewed 08/30/19 @ 10:59 by Bhavya Caban) Father Diabetes Hypertension Cancer Mother Hypertension CVA (cerebral vascular accident) Sister Diabetes Son Diabetes Family History: Reports: Stroke - His mother had stroke in her 70's. Paternal Family History: Family History (Last Reviewed 08/30/19 @ 10:59 by Bhavya Caban) Father Diabetes Hypertension Cancer Mother Hypertension CVA (cerebral vascular accident) Sister Diabetes Son Diabetes Family History: Reports: Cancer - Lung Review of Systems General: Denies: Chills, Fever Eyes: Denies: Visual changes - bilaterally ENT: Denies: Bilateral ear pain Cardiovascular: Denies: Chest pain, Palpitations Respiratory: Denies: Dyspnea, Cough Gastrointestinal: Denies: Abdominal pain, Nausea, Vomiting, Diarrhea Genitourinary: Denies: Dysuria Skin: Denies: Rash Neurological: Denies: Headache, Weakness, Parasthesia, Numbness Allergy: Denies: Uticaria Physical Exam Vital Signs/Narrative: Vital Signs Temp Pulse Resp BP Pulse Ox 10/01/19 18:05 66 19 H 144/63 H 97 10/01/19 17:52 65 22 H 163/57 H 96 10/01/19 17:30 97.9 F 69 16 189/76 H 98 Inital Vital Signs reviewed: Yes General: Well nourished, Well developed Head: Normocephalic ENT: Moist mucous membranes Neck: Supple Cardiovascular: Regular rate, Regular rhythm Respiratory: No distress, CTA bilaterally Abdomen: Soft, Nontender Extremities: Nontender Skin: Normal color, No rash Neurological: Alert, Oriented x3, Normal Strength, Normal Sensation Psychological: Normal affect Diagnostic/Tx/Re-eval Impressions Brain CT 10/01/19 18:03 IMPRESSION: 1. No acute findings. 2. Chronic left caudate lacunar infarct. 3. Mild microvascular ischemic changes. Atrophy. Electronically Signed: Chichi Varela MD at 18:53 EST Tel , Service support , 10/01/19 18:03 Brain/Head without Contrast [CT] Stat Laboratory Results 10/01/19 10/01/19 18:20 18:20 WBC 6.3 RBC 3.90 L Hgb 11.6 L Hct 35.9 L MCV 92.1 MCH 29.7 MCHC 32.3 RDW Std Deviation 42.6 RDW Coeff of Flavio 12.8 Plt Count 174 MPV 9.8 Immature Gran % (Auto) 0.300 Neut % (Auto) 60.0 Lymph % (Auto) 26.6 [place] % (Auto) 8.8 Eos % (Auto) 3.5 Baso % (Auto) 0.8 Absolute Neuts (auto) 3.8 Absolute Lymphs (auto) 1.67 Nucleated RBC % 0 Sodium 140 Potassium 4.3 Chloride 106 Carbon Dioxide 29.0 Anion Gap 5 BUN 18 Creatinine 1.13 Estim Creat Clear Calc 57.23 Est GFR (MDRD) Af Amer 80 Est GFR (MDRD) Non-Af 66 BUN/Creatinine Ratio 15.9 Glucose 173 H Calcium 8.7 Troponin I < 0.015 - EKG Initial EKG Interpretation: Sinus Rhythm - Sinus at 65 with no acute ischemia. - Medical Decision Making Patient is maintained on monitor technician. Repeat blood pressures while him in the room are 163/57 and 144/63. On repeat exam patient is resting comfortably. He was able to get up and ambulate down the veelz with his walker and back. He reports very minimal lightheadedness but overall feels back to baseline. At this time he will be discharged home to follow with his primary care physician. ED Disposition - Plan for ED Patient: Disposition: Home or Assisted Living Diagnosis: Dizziness Instructions: DIZZINESS, Unk Cause Referrals: Tosha Shrestha MD [Primary Care Provider] - 5-7 Days
[2019-10-01 18:42] LABS: Absolute Lymphocyte Count 1.67 X10^3/uL (0.83-4.51); Absolute Neutrophil Count 3.8 X10^3/uL (2.0-7.7); Basophil# 0.05 X10^3/uL; Basophil% 0.8 % (0-1); Eosinophil# 0.22 X10^3/uL; Eosinophils% 3.5 % (0-5); Hematocrit 35.9 % (40-54); Hemoglobin 11.6 g/dL (13.0-16.5); Lymphocyte # 1.67 X10^3/ul (4.0); Lymphocyte % 26.6 % (19-41); Mean Corp Hgb Conc 32.3 g/dL (32-36); Mean Corpuscular Hgb 29.7 pg (27.0-32.0); Mean Corpuscular Volume 92.1 fL (80-94); Mean Platelet Vol. 9.8 fl (6.2-12.0); Monocyte# 0.55 X10^3/uL; Monocyte% 8.8 % (0-10); NRBC Flagged by Analyzer 0 % (0-5); Neutrophil # 3.77 X10^3/uL (2.7-7.7); Platelet Count 174 K/mm3 (150-450); RBC Distribution Width CV 12.8 % (11.6-14.6); RBC Distribution Width SD 42.6 fl (35.1-43.9); White Blood Count 6.3 K/mm3 (4.4-11.0)
[2019-10-01 18:47] LABS: Anion Gap 5 (5-15); BUN 18 mg/dL (7-18); BUN/Creat Ratio 15.9 RATIO (10-20); Calcium,Total 8.7 mg/dL (8.5-10.1); Chloride 106 mmol/L (98-107); Creatinine, Serum 1.13 mg/dL (0.70-1.30); EST Glomerular Filtration Rate 66 mL/min (>60); Est Glom Filt Rate - Afr Amer 80 mL/min (>60); Estimated Creatinine Clearance 57.23 ml/min; Glucose 173 mg/dL (74-106); Potassium 4.3 mmol/L (3.5-5.1); Sodium Level 140 mmol/L (136-145)
[2019-10-01 19:46] VITALS: BP 176/63; PULSE 62; RESP 20; O2SAT 96
== END 2019-10-01 19:46 | disposition home or self-care (01) ==
PROVIDERS: Emergency Provider Emergency Medicine; PCP Internal Medicine
DX: R42 Dizziness and giddiness (principal); E11.42 Type 2 diabetes mellitus with diabetic polyneuropathy; E78.5 Hyperlipidemia, unspecified; N40.0 Benign prostatic hyperplasia without lower urinary tract symptoms; Z79.899 Other long term (current) drug therapy; Z79.01 Long term (current) use of anticoagulants; I10 Essential (primary) hypertension; G25.81 Restless legs syndrome; I48.0 Paroxysmal atrial fibrillation; Z79.84 Long term (current) use of oral hypoglycemic drugs
CPT/HCPCS: 70450; 80048; 84484; 85025; 93005; 99284; A4216

== ENCOUNTER → 2019-10-04 08:47 | Outpatient (CLI) | payer MEDICARE, BC, SELFPAY ==
[2019-10-01 17:30] VITALS: BMI 35.8
[2019-10-04 10:43] LABS: Protein, Urine (Random) 221.1 mg/dL (<11.9); Protein:Creat Ratio 2875 mg/g CRE (0-200)
[2019-10-04 10:48] LABS: Albumin, Serum 3.2 g/dL (3.2-5.0); BUN 12 mg/dL (7-18); BUN/Creat Ratio 10.7 RATIO (10-20); Calcium,Total 9.3 mg/dL (8.5-10.1); Chloride 102 mmol/L (98-107); Creatinine, Serum 1.12 mg/dL (0.70-1.30); EST Glomerular Filtration Rate 67 mL/min (>60); Est Glom Filt Rate - Afr Amer 81 mL/min (>60); Glucose 258 mg/dL (74-106); Phosphorus 3.2 mg/dL (2.5-4.9); Sodium Level 137 mmol/L (136-145)
== END ==
PROVIDERS: PCP Internal Medicine; Referring Provider Internal Medicine Nephrology; Visit Provider Internal Medicine Nephrology
DX: E11.22 Type 2 diabetes mellitus with diabetic chronic kidney disease (principal); N18.3 Chronic kidney disease, stage 3 (moderate); E11.21 Type 2 diabetes mellitus with diabetic nephropathy
CPT/HCPCS: 36415; 80069; 82570; 84156

== ENCOUNTER → 2019-10-11 12:54 | Outpatient (CLI) | payer MEDICARE, BC, SELFPAY ==
[2019-10-04 16:05] VITALS: BMI 35.8
[2019-10-11 14:18] LABS: Absolute Lymphocyte Count 1.58 X10^3/uL (0.83-4.51); Absolute Neutrophil Count 4.6 X10^3/uL (2.0-7.7); Basophil# 0.06 X10^3/uL; Basophil% 0.8 % (0-1); Eosinophil# 0.28 X10^3/uL; Eosinophils% 3.9 % (0-5); Hematocrit 38.9 % (40-54); Hemoglobin 12.3 g/dL (13.0-16.5); Lymphocyte # 1.58 X10^3/ul (4.0); Lymphocyte % 21.9 % (19-41); Mean Corp Hgb Conc 31.6 g/dL (32-36); Mean Corpuscular Hgb 29.4 pg (27.0-32.0); Mean Corpuscular Volume 93.1 fL (80-94); Mean Platelet Vol. 9.9 fl (6.2-12.0); Monocyte# 0.67 X10^3/uL; Monocyte% 9.3 % (0-10); NRBC Flagged by Analyzer 0 % (0-5); Neutrophil # 4.56 X10^3/uL (2.7-7.7); Neutrophil % 63.4 % (47-70); Platelet Count 214 K/mm3 (150-450); RBC Distribution Width SD 44.3 fl (35.1-43.9); Red Blood Count 4.18 M/mm3 (4.6-6.2); White Blood Count 7.2 K/mm3 (4.4-11.0)
[2019-10-11 14:31] LABS: ALB/GLOB Ratio 0.9 RATIO (0.9-2.4); AST(SGOT) 25 U/L (15-37); Alanine Aminotransfer ALT/SGPT 35 U/L (16-61); Albumin, Serum 3.2 g/dL (3.2-5.0); Alkaline Phosphatase 64 U/L (45-117); Anion Gap 6 (5-15); BUN 23 mg/dL (7-18); BUN/Creat Ratio 20.4 RATIO (10-20); Calcium,Total 8.9 mg/dL (8.5-10.1); Chloride 104 mmol/L (98-107); Creatinine, Serum 1.13 mg/dL (0.70-1.30); EST Glomerular Filtration Rate 66 mL/min (>60); Est Glom Filt Rate - Afr Amer 80 mL/min (>60); Globulin 3.7 g/dL (2.2-4.2); Glucose 184 mg/dL (74-106); Potassium 4.1 mmol/L (3.5-5.1); Protein, Total 6.9 g/dL (6.4-8.2); Sodium Level 138 mmol/L (136-145)
== END ==
PROVIDERS: PCP Internal Medicine; Referring Provider Internal Medicine Rheumatology; Visit Provider Internal Medicine Rheumatology
DX: L40.59 Other psoriatic arthropathy (principal); L40.8 Other psoriasis; M21.40 Flat foot [pes planus] (acquired), unspecified foot; K76.0 Fatty (change of) liver, not elsewhere classified; M17.0 Bilateral primary osteoarthritis of knee; N18.9 Chronic kidney disease, unspecified; E11.22 Type 2 diabetes mellitus with diabetic chronic kidney disease; I12.9 Hypertensive chronic kidney disease with stage 1 through stage 4 chronic kidney disease, or unspecified chronic kidney disease; N20.0 Calculus of kidney; I48.92 Unspecified atrial flutter; Z86.718 Personal history of other venous thrombosis and embolism
CPT/HCPCS: 36415; 80053; 85025

== ENCOUNTER → 2019-12-20 14:56 | Outpatient (CLI) | payer MEDICARE, BC, SELFPAY ==
[2019-12-14 15:48] VITALS: BMI 35.8
[2019-12-20 17:58] LABS: BUN 21 mg/dL (7-18); BUN/Creat Ratio 18.4 RATIO (10-20); Calcium,Total 8.8 mg/dL (8.5-10.1); Chloride 106 mmol/L (98-107); Creatinine, Serum 1.14 mg/dL (0.70-1.30); EST Glomerular Filtration Rate 66 mL/min (>60); Est Glom Filt Rate - Afr Amer 79 mL/min (>60); Glucose 237 mg/dL (74-106); Phosphorus 3.4 mg/dL (2.5-4.9); Potassium 4.5 mmol/L (3.5-5.1); Sodium Level 139 mmol/L (136-145)
[2019-12-20 18:12] LABS: Protein, Urine (Random) 241.7 mg/dL (<11.9); Protein:Creat Ratio 1888 mg/g CRE (0-200)
== END ==
PROVIDERS: PCP Internal Medicine; Referring Provider Internal Medicine Nephrology; Visit Provider Internal Medicine Nephrology
DX: E11.21 Type 2 diabetes mellitus with diabetic nephropathy (principal); N18.3 Chronic kidney disease, stage 3 (moderate)
CPT/HCPCS: 36415; 80069; 82570; 84156

== ENCOUNTER 2020-01-31 13:00 | Outpatient (RCR) | payer MEDICARE, BC, SELFPAY ==
[2020-01-03 12:09] VITALS: BMI 35.8
--- NOTE | 2020-01-12 17:35 | HP.PTEVAL_ITS ---
Patient's Visit Information MARY SAN is a 79 year old M referred to Physical Therapy by Dr. Chalo Carrasco MD with a diagnosis of disequilibrium. Date of Evaluation: 01/12/20 Physical Therapist: STEPHANIE Diego - Visit Plan Frequency: 2x /Week Duration: 2 Months Plan: 2X/ week for 8 weeks for VOR exercises starting in sitting and progressing to standing and mobility if able, gait training, gait with head turns, LE strengthening, balance, transfers with HEP - Subjective No room spinning dizziness. He reports that if he leans forward he wants to keep going forward. He feels unsteady when brushing teeth etc and when he does that he has to lean against the sink. He can't turn quickly. He was here for PT before and his crystals were out. 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 He does not sleep good. He feels tired now. He has trouble walking in the dark. He feels the same as when he was here last time but maybe a little better. He lays on his R side and on his L side and does not feel it then.... when he goes to lay down on the bed or sit up he gets light headed..... lasts about 30 seconds lying down and getting up oscar about 1.5 minutes. Everything moves around after awhile while he was reading. If he looks at computer took long her feels a lightheadness and has to quit. - Objective -Hallpike R and L for nystagmus.... possibly dizzzy B but worse on the L but no eye movement and took greater than 1 minute to subside. Both times when brought pt up from the Hallpike position he was very lightheaded ( possible BP meds). Gait: walks without the walker with decrease heel to toe patter and decrease stride length. He is not able to walk and turn his head, he has to stop and turn head. FGA: 4. Smooth pursuit horizontal: pt had some trouble following with his eyes more horizontal than vertical... hard to stay focus on moving object. VORX1: horisontal: increase in light headedness and hard to focus and vertical lightheadedness and hard to foucs but not as bad as horizontal. Smooth pusuit vertical: little light headed. LE MMT B hip flec 4-/5, B knee flex and ext 4-5,. Sit to stand: pt needs UE support. Standin balance pt needs other surface to hold onto when he first stands up. Uses a walker 75% of the time - Balance Scores Functional Gait Assessment Score: 4 % Disability: 86.6700 - Goals Goal 1:: I HEP Goal Time Frame: 4-6 Weeks Goal 2:: Increase FGA by 4 points to decrease fall risk Goal Time Frame: 4-6 Weeks Goal 3:: Be able to walk and turn head slowly without getting the feeling that he will fall sideqays or backwards Goal Time Frame: 4-6 Weeks Goal 4:: Increase LE strength by 1/2 muscle grade (at time of eval: LE MMT B hip flec 4-/5, B knee flex and ext 4-5) Goal Time Frame: 4-6 Weeks Goal 5:: Be able to walk with more heel to toe gait pattern and increase stride with least restrictive device Goal Time Frame: 4-6 Weeks - Rehabilitation Potential Rehabilitation Potential: Good - Anticipated Interventions Patient/Client Instruction: Educate patient on: Condition, Plan of Care For the Purpose of:: To improve performance and independence with ADL's, To improve health of tissue, To increase flexibility/ROM, To improve endurance, To improve balance, To improve safety with gait Therapeutic Exercise to Include: Strength training, Endurance training, Balance training, Body mechanics, Flexibilty training, Gait and locomotor training, Neuromotor development, Passive ROM, Active ROM For the Purpose of:: To improve gait and locomotor functions, To improve health of tissue, To increase flexibility/ROM, To improve endurance, To improve balance, To improve safety with gait, To assume or resume ADL's, To reduce risk of recurrence, To improve safety, To improve health and function, To foster healthy habits Functional Training to Include: Gait training For the Purpose of:: To improve ability of physical actions for home/community/work/leisure, To improve gait and locomotor functions, To improve safety with gait Thank you for the opportunity to evaluate your patient. For Medicare and Medicare HMO plans, please review the plan of care and approve it. It will need to be FAXED BACK to us at [phone] for Medicare purposes. For Medicare only, by signing this I certify the plan of care. Please let me know if there are questions or concerns regarding this plan of care. Physician Signature: Date:
--- NOTE | 2020-05-09 12:02 | HP.PT.NRP ---
MARY SAN was seen in my office for initial evaluation on 01/12/20. The following Plan of Care was established for this patient: Initial Frequency: 2x /Week Initial Duration: 2 Months Patient/Client Instruction: Educate patient on: Condition, Plan of Care For the Purpose of:: To improve performance and independence with ADL's, To improve health of tissue, To increase flexibility/ROM, To improve endurance, To improve balance, To improve safety with gait Therapeutic Exercise to Include: Strength training, Endurance training, Balance training, Body mechanics, Flexibilty training, Gait and locomotor training, Neuromotor development, Passive ROM, Active ROM For the Purpose of:: To improve gait and locomotor functions, To improve health of tissue, To increase flexibility/ROM, To improve endurance, To improve balance, To improve safety with gait, To assume or resume ADL's, To reduce risk of recurrence, To improve safety, To improve health and function, To foster healthy habits Functional Training to Include: Gait training For the Purpose of:: To improve ability of physical actions for home/community/work/leisure, To improve gait and locomotor functions, To improve safety with gait This patient was last seen in our office 01/31/20. Pertinent comments regarding their Physical therapy will appear below: DC PT. Pt did not reschedule after his broken toe. At this point I will be discontinuing this patient from physical therapy. I would be happy to see this patient again in the future if found appropriate by the physician. Thank you! Veena Camejo, MPT
== END 2020-01-31 19:00 ==
LOC: PT 13:00
PROVIDERS: PCP Internal Medicine; Referring Provider Otolaryngology; Visit Provider Otolaryngology
DX: R42 Dizziness and giddiness (principal)
CPT/HCPCS: 97110; 97161

== ENCOUNTER 2020-03-26 00:49 | Emergency (ER) | payer MEDICARE, BC, SELFPAY ==
[2020-03-07 08:38] VITALS: BMI 35.9
[2020-03-26 00:51] VITALS: BP 170/67; PULSE 67; RESP 16; TEMP 37.1; O2SAT 98; BMI 36.3
--- NOTE | 2020-03-26 00:57 | EKG12_ITS ---
Test Reason : SOB Blood Pressure : / mmHG Vent. Rate : 068 BPM Atrial Rate : 068 BPM P-R Int : 220 ms QRS Dur : 106 ms QT Int : 442 ms P-R-T Axes : 035 063 063 degrees QTc Int : 469 ms Sinus rhythm with 1st degree A-V block Otherwise normal ECG Confirmed by RIVKA DUNCAN, RAHUL ([id number]), proposal editor NITZA ROJAS ([id number]) on 03/27/2020 9:03:43 AM Referred By: ASHLEY Confirmed By:RAHUL TINEO MD
--- NOTE | 2020-03-26 00:57 | ED.VIS.GEN ---
History of Present Illness Chief Complaint: Shortness of Breath Informant: Patient Onset: Today Context: Gradual Onset Timing: Intermittent Current Severity: Moderate Maximum Severity: Moderate Narrative: The patient is an 79-year-old male with medical history significant for paroxysmal atrial flutter, restless legs, hypertension, and sleep apnea the presents to the emergency department with shortness of breath and generalized fatigue. The patient states that earlier today, he had a few episodes of loose, watery diarrhea. He states otherwise, he felt well. He went to sleep tonight. He states that he put on his BiPAP mask. He states he just felt like he was not getting enough air. He took it off and sat to the bedside. He states that he tried to use some Vicks vapor rub which seemed to open my passageways. He then fell asleep again, but again felt like he cannot breathe especially with laying flat. He denies any chest pain. He denies any fevers or chills. He said no cough. He denies any weight gain. Prior similar symptoms: No Recent Illness/Hospitalization: No Past Medical History - Allergies and Home Meds Allergies/Adverse Reactions: Allergies hydrocodone bitartrate [From Vicodin] Allergy (Verified 03/26/20 00:55) Other hydroxyzine Adverse Reaction (Verified 03/26/20 00:55) Other CALLED DIZZINESS Primary Care Physician: Tosha Shrestha MD [Primary Care Provider] - Prior records reviewed: Yes Past Medical History: - - Sleep apnea, paroxysmal atrial flutter, restless leg syndrome, hypertension Surgical History: tonsillectomy, - - R knee Patella repair, ORIF of left foot from accident, cardiac ablations, T+A. - Family History Maternal Family History: Family History (Last Reviewed 02/08/20 @ 10:34 by Prasanth Irby) Father Diabetes Hypertension Cancer Mother Hypertension CVA (cerebral vascular accident) Sister Diabetes Son Diabetes Family History: Reports: Stroke - His mother had stroke in her 70's. Paternal Family History: Family History (Last Reviewed 02/08/20 @ 10:34 by Prasanth Irby) Father Diabetes Hypertension Cancer Mother Hypertension CVA (cerebral vascular accident) Sister Diabetes Son Diabetes Family History: Reports: Cancer - Lung Review of Systems General: Denies: Chills, Fever, Sweats Eyes: Denies: Visual changes - bilaterally, Diplopia ENT: Denies: Rhinorrhea, Sore throat Cardiovascular: Denies: Chest pain, Palpitations Respiratory: Reports: Dyspnea, Orthopnea, Paroxysmal nocturnal dyspnea Gastrointestinal: Reports: Diarrhea. Denies: Abdominal pain, Nausea, Vomiting, Melena, Hematochezia Genitourinary: Denies: Dysuria, Hematuria, Frequency Musculoskeletal: Denies: Back pain, Extremity Pain Skin: Denies: Rash, Wounds Neurological: Denies: Headache, Weakness, Numbness Physical Exam Vital Signs/Narrative: Vital Signs Temp Pulse Resp BP Pulse Ox 03/26/20 00:51 98.8 F 67 16 170/67 H 98 Inital Vital Signs reviewed: Yes General: Well nourished, Well developed, No Acute Distress Head: Normocephalic, Atraumatic Eyes: Perrl, EOMI ENT: Moist mucous membranes, No rhinorrhea Neck: Supple, Nontender Cardiovascular: Regular rate, Regular rhythm, No murmurs Respiratory: No distress, CTA bilaterally, Chest nontender Abdomen: Soft, Nontender, Nondistended, Normal bowel sounds Back: Nontender, Normal Inspection Extremities: Nontender, No edema Skin: Normal color, No rash Neurological: Alert, Oriented x3, Cranial nerves II-XII grossly intact, Normal Strength, Normal Sensation Psychological: Normal affect, Normal Mood Diagnostic/Tx/Re-eval Clinical Impression(s) from Imaging Studies Chest X-Ray 03/26/20 01:20 IMPRESSION: No demonstrated acute cardiopulmonary process. Electronically Signed: Kavitha Justin MD at 1:59 EDT Tel , Service support , Abnormal Lab Results 03/26/20 03/26/20 03/26/20 00:55 00:55 00:55 WBC 5.8 RBC 3.65 L Hgb 10.9 L Hct 34.4 L MCV 94.2 H MCH 29.9 MCHC 31.7 L RDW Std Deviation 43.4 RDW Coeff of Flavio 12.7 Plt Count 194 MPV 9.3 Immature Gran % (Auto) 0.500 Neut % (Auto) 54.3 Lymph % (Auto) 28.9 [place] % (Auto) 11.4 H Eos % (Auto) 4.0 Baso % (Auto) 0.9 Absolute Neuts (auto) 3.1 Absolute Lymphs (auto) 1.67 Nucleated RBC % 0 Sodium 142 Potassium 4.6 Chloride 109 H Carbon Dioxide 27.0 Anion Gap 6 BUN 19 H Creatinine 1.07 Estim Creat Clear Calc 60.44 Est GFR (MDRD) Af Amer 85 Est GFR (MDRD) Non-Af 71 BUN/Creatinine Ratio 17.8 Glucose 170 H Calcium 8.8 Total Bilirubin 0.30 AST 30 ALT 31 Alkaline Phosphatase 65 Troponin I < 0.015 B-Natriuretic Peptide 112.7 H Total Protein 6.4 Albumin 2.9 L Globulin 3.5 Albumin/Globulin Ratio 0.8 L - Medical Decision Making The patient symptoms do seem consistent more with upper airway congestion. He has no wheezing or rales on examination. He states when he would try to lay flat, and felt like his nose was plugging. He was doing some work in his garage today and thinks he may been exposed to dust. Given his advanced age and multiple comorbidities, metabolic work-up was pursued. EKG was obtained. It demonstrated sinus rhythm without acute ischemia. The patient has not had chest pain. His oxygen saturation is 98% on room air. Chest x-ray does not show any significant abnormalities. Cardiac enzymes are unremarkable. On reevaluation, he is resting comfortably without tachypnea. The patient is given Decadron as I do feel a lot of this is because of some upper airway congestion. He is also given Afrin. He is resting comfortably. I do not suspect a dangerous cause of his shortness of breath. I do feel that the patient is safe for outpatient follow-up. Impression 1. Shortness of breath secondary to URI ED Disposition - Plan for ED Patient: Instructions: ED Upper Resp Infec No Abx Tx Referrals: Tosha Shrestha MD [Primary Care Provider] -
[2020-03-26 00:58] VITALS: O2SAT 97
[2020-03-26 01:10] LABS: Absolute Lymphocyte Count 1.67 X10^3/uL (0.83-4.51); Absolute Neutrophil Count 3.1 X10^3/uL (2.0-7.7); Basophil# 0.05 X10^3/uL; Basophil% 0.9 % (0-1); Eosinophil# 0.23 X10^3/uL; Hematocrit 34.4 % (40-54); Hemoglobin 10.9 g/dL (13.0-16.5); Lymphocyte # 1.67 X10^3/ul (4.0); Lymphocyte % 28.9 % (19-41); Mean Corp Hgb Conc 31.7 g/dL (32-36); Mean Corpuscular Hgb 29.9 pg (27.0-32.0); Mean Corpuscular Volume 94.2 fL (80-94); Mean Platelet Vol. 9.3 fl (6.2-12.0); Monocyte# 0.66 X10^3/uL; Monocyte% 11.4 % (0-10); NRBC Flagged by Analyzer 0 % (0-5); Neutrophil # 3.14 X10^3/uL (2.7-7.7); Neutrophil % 54.3 % (47-70); Platelet Count 194 K/mm3 (150-450); RBC Distribution Width CV 12.7 % (11.6-14.6); RBC Distribution Width SD 43.4 fl (35.1-43.9); Red Blood Count 3.65 M/mm3 (4.6-6.2); White Blood Count 5.8 K/mm3 (4.4-11.0)
--- NOTE | 2020-03-26 01:20 | RAD_ITS ---
STUDY: X-RAY CHEST REASON FOR EXAM: Male, 79 years old. SOB, WEAKNESS, FATIGUE TECHNIQUE: Single AP portable view of the chest. COMPARISON: 03/05/2018 chest x-ray FINDINGS: The lungs are clear and expanded. There is no demonstrated pleural abnormality. Normal size heart. Normal mediastinum and lakhwinder. Normal visualized pulmonary arteries. There is atherosclerotic calcification of the aortic arch with tortuosity. There are diffuse degenerative changes of the visualized thoracic spine. Normal visualized ribs, clavicles, and shoulders. There is no demonstrated abnormality of the visualized soft tissue structures of the upper abdomen. RAD/Chest 1 View (Portable) IMPRESSION: No demonstrated acute cardiopulmonary process. Electronically Signed: Kavitha Justin MD at 1:59 EDT Tel , Service support ,
[2020-03-26 01:25] LABS: ALB/GLOB Ratio 0.8 RATIO (0.9-2.4); AST(SGOT) 30 U/L (15-37); Alanine Aminotransfer ALT/SGPT 31 U/L (16-61); Albumin, Serum 2.9 g/dL (3.2-5.0); Alkaline Phosphatase 65 U/L (45-117); Anion Gap 6 (5-15); BUN 19 mg/dL (7-18); BUN/Creat Ratio 17.8 RATIO (10-20); Calcium,Total 8.8 mg/dL (8.5-10.1); Chloride 109 mmol/L (98-107); Creatinine, Serum 1.07 mg/dL (0.70-1.30); EST Glomerular Filtration Rate 71 mL/min (>60); Est Glom Filt Rate - Afr Amer 85 mL/min (>60); Estimated Creatinine Clearance 60.44 ml/min; Globulin 3.5 g/dL (2.2-4.2); Glucose 170 mg/dL (74-106); Potassium 4.6 mmol/L (3.5-5.1); Protein, Total 6.4 g/dL (6.4-8.2); Sodium Level 142 mmol/L (136-145)
[2020-03-26 01:39] LABS: BNP,B-Type NATRIURETIC PEPTIDE 112.7 pg/mL (0-100)
[2020-03-26] MEDS: Oxymetazoline 0.05% 1 SPRAY SPRAY.BTL 2 SPRAY NASAL (02:16)
[2020-03-26] MEDS: dexAMETHasone 10 MG/ML Vial IV (02:18)
[2020-03-26 02:43] VITALS: BP 160/78; PULSE 70; RESP 16; O2SAT 94
== END 2020-03-26 02:44 | disposition home or self-care (01) ==
LOC: ED 01:46
PROVIDERS: Emergency Provider Emergency Medicine; PCP Internal Medicine
DX: J06.9 Acute upper respiratory infection, unspecified (principal); I10 Essential (primary) hypertension
CPT/HCPCS: 71045; 80053; 83880; 84484; 85025; 93005; 96374; 99285; A4216

== ENCOUNTER → 2020-04-10 14:43 | Outpatient (CLI) | payer MEDICARE, BC, SELFPAY ==
[2020-03-29 13:31] VITALS: BMI 36.3
[2020-04-10 17:56] LABS: Absolute Lymphocyte Count 1.25 X10^3/uL (0.83-4.51); Absolute Neutrophil Count 4.9 X10^3/uL (2.0-7.7); Basophil# 0.05 X10^3/uL; Basophil% 0.7 % (0-1); Eosinophil# 0.22 X10^3/uL; Hematocrit 36.1 % (40-54); Lymphocyte # 1.25 X10^3/ul (4.0); Lymphocyte % 17.3 % (19-41); Mean Corp Hgb Conc 30.5 g/dL (32-36); Mean Corpuscular Hgb 28.6 pg (27.0-32.0); Mean Platelet Vol. 11.3 fl (6.2-12.0); Monocyte# 0.77 X10^3/uL; Monocyte% 10.6 % (0-10); NRBC Flagged by Analyzer 0 % (0-5); Neutrophil % 67.7 % (47-70); Platelet Count 126 K/mm3 (150-450); RBC Distribution Width CV 12.8 % (11.6-14.6); RBC Distribution Width SD 43.9 fl (35.1-43.9); Red Blood Count 3.84 M/mm3 (4.6-6.2); White Blood Count 7.2 K/mm3 (4.4-11.0)
[2020-04-10 18:33] LABS: ALB/GLOB Ratio 0.8 RATIO (0.9-2.4); AST(SGOT) 25 U/L (15-37); Alanine Aminotransfer ALT/SGPT 35 U/L (16-61); Alkaline Phosphatase 89 U/L (45-117); Anion Gap 5 (5-15); BUN 20 mg/dL (7-18); BUN/Creat Ratio 17.5 RATIO (10-20); Calcium,Total 9.1 mg/dL (8.5-10.1); Chloride 108 mmol/L (98-107); Creatinine, Serum 1.14 mg/dL (0.70-1.30); EST Glomerular Filtration Rate 66 mL/min (>60); Est Glom Filt Rate - Afr Amer 79 mL/min (>60); Globulin 3.8 g/dL (2.2-4.2); Glucose 250 mg/dL (74-106); Protein, Total 6.8 g/dL (6.4-8.2); Sodium Level 141 mmol/L (136-145)
== END ==
PROVIDERS: PCP Internal Medicine; Referring Provider Internal Medicine Rheumatology; Visit Provider Internal Medicine Rheumatology
DX: L40.59 Other psoriatic arthropathy (principal); L40.8 Other psoriasis; M21.40 Flat foot [pes planus] (acquired), unspecified foot; K76.0 Fatty (change of) liver, not elsewhere classified; M17.0 Bilateral primary osteoarthritis of knee; I12.9 Hypertensive chronic kidney disease with stage 1 through stage 4 chronic kidney disease, or unspecified chronic kidney disease; N18.9 Chronic kidney disease, unspecified; N20.0 Calculus of kidney; I48.92 Unspecified atrial flutter; G25.81 Restless legs syndrome; G47.33 Obstructive sleep apnea (adult) (pediatric); N40.1 Benign prostatic hyperplasia with lower urinary tract symptoms; F32.89 Other specified depressive episodes; Z86.718 Personal history of other venous thrombosis and embolism
CPT/HCPCS: 36415; 80053; 85025

== ENCOUNTER 2020-05-08 13:00 | Outpatient (RCR) | payer MEDICARE, BC, SELFPAY ==
[2020-03-29 13:31] VITALS: BMI 36.3
--- NOTE | 2020-04-05 14:25 | HP.PTEVAL ---
Patient's Visit Information MARY SAN is a 79 year old M referred to Physical Therapy by KENRICK Rain with a diagnosis of MALAISE,UNSPECIFIED FALL. Date of Evaluation: 04/05/20 Physical Therapist: Simón Beaver, PT, Cert MDT, OCS - Visit Plan Frequency: 2x /Week Duration: 4 Weeks Plan: PT INTERVENTIONS PROGRESSIVE BALANCE TRAINING,ENDURANCE PROGRAM ,STRENGTHENING BLE - Subjective This 79 y/o male presents to physical therapy with weakness. Patient reports major weakness in legs affects walking with occasional dizzniess but very frequent falls. Patient seen DR recommended PT . Patient needs fww with gait.Patient fracture toe January 16 affects walking. Patient unable to exercise thus stopped PT back in January.Patient has edema in ankle . Patient does steps one step at time.Patient condition affects QOL of function. Patient weakness affects gait.Patient uses lift chair at home. SOCIAL: . VOCATION: retired - Pain Right Lower Extremity Pain Intensity (Out of 10): 3 Pain Intensity Range: 10 - Objective POSTURE: mild foward posture. NEURO: Iintact ,denies parathesia/tingling,. GAIT: reciprocal pattern foward posture slow beck with fww,unsteady without device ER feet decrease step length. BALANCE: fair+. STAIRS: one step at a time. FLEXABLITY: hams mod tight. MMT: quads/hams 4-/5 ,hip flexion 4-/5,abd 3+/5 ,ankle 4/5 - Balance Scores Functional Gait Assessment Score: 10 % Disability: 66.6700 CATSIB Score (Max score 120 seconds): 65 - Goals Goal 1:: Patient to be I with HEP. Goal Time Frame: 4-6 Weeks Goal 2:: Patient increase strength BLE -QUADS/HAMS/HIP 4/5 to improve function. Goal Time Frame: 4-6 Weeks Goal 3:: Patient to improve CATSIB by 5 points or > to decrease risk of falls. Goal Time Frame: 4-6 Weeks Goal 4:: Patient to improve functional gait assessment score by 8 points or > to decrese risk of falls. Goal Time Frame: 4-6 Weeks Goal 5:: Patient improve LFES score by 5-10 points or > to improve QOL Goal Time Frame: 4-6 Weeks - Rehabilitation Potential Physical Therapy Diagnosis: This patient has impairments with weakness ,balance deficits impairs gait and ADLS' thus benifit from skilled PT Rehabilitation Potential: Good - Anticipated Interventions Patient/Client Instruction: Educate patient on: Condition, Plan of Care For the Purpose of:: To decrease pain, To improve muscle performance and motor function, To improve ability to perform ADL's, To increase tolerance to activity/condition/position, To improve performance and independence with ADL's, To improve ability of physical actions for home/community/work/leisure, To improve gait and locomotor functions, To improve endurance, To improve balance, To improve safety with gait Therapeutic Exercise to Include: Strength training, Endurance training, Balance training, Gait and locomotor training Comment: BLE For the Purpose of:: To improve muscle performance and motor function, To improve ability to perform ADL's, To increase tolerance to activity/condition/position, To improve performance and independence with ADL's, To improve ability of physical actions for home/community/work/leisure, To improve gait and locomotor functions, To increase flexibility/ROM, To improve endurance, To improve balance, To improve ability to perform tasks related to life management Thank you for the opportunity to evaluate your patient. For Medicare and Medicare HMO plans, please review the plan of care and approve it. It will need to be FAXED BACK to us at [phone] for Medicare purposes. For Medicare only, by signing this I certify the plan of care. Please let me know if there are questions or concerns regarding this plan of care. Physician Signature: Date:
--- NOTE | 2020-05-08 13:23 | HP.PTREVAL ---
Caden Dale, JOSEFINA-C, It has been my pleasure to treat MARY SAN over the last 8 visits for MALAISE,UNSPECIFIED FALL. Please see the progress note below for an update on the physical therapy plan of care! Subjective: Patient was at fishing on low chair several times cause legs ache and sore..easier to get out of chair. Patient vhas been using rollor Objective/Function: POSTURE: mild foward posture. EDEMA:1+ lower legs. GAIT: ambulates with rollator. STAIR: one step at time with rail. MMT: quads/hams 4/5,hip flexion 4-/5 Plan Plan: CONT WITH POC 2X/WK FOR 4WKS. PT INTERVENTIONS PROGRESSIVE BALANCE TRAINING, ENDURANCE PROGRAM, STRENGTHENING BLE Goals Goal 1:: Patient to be I with HEP. Goal Time Frame: 4-6 Weeks Goal Progress: Progressing Goal 2:: Patient increase strength BLE -QUADS/HAMS/HIP 4/5 to improve function. Goal Time Frame: 4-6 Weeks Goal Progress: Progressing Goal 3:: Patient to improve CATSIB by 5 points or > to decrease risk of falls. Goal Time Frame: 4-6 Weeks Goal Progress: Progressing Goal 4:: Patient to improve functional gait assessment score by 8 points or > to decrese risk of falls. Goal Time Frame: 4-6 Weeks Goal Progress: Progressing Goal 5:: Patient improve LFES score by 5-10 points or > to improve QOL Goal Time Frame: 4-6 Weeks Goal Progress: Progressing Anticipated Interventions Patient/Client Instruction: Educate patient on: Condition, Plan of Care For the Purpose of:: To decrease pain, To improve muscle performance and motor function, To improve ability to perform ADL's, To increase tolerance to activity/condition/position, To improve performance and independence with ADL's, To improve ability of physical actions for home/community/work/leisure, To improve gait and locomotor functions, To improve endurance, To improve balance, To improve safety with gait Therapeutic Exercise to Include: Strength training, Endurance training, Balance training, Gait and locomotor training Comment: BLE For the Purpose of:: To improve muscle performance and motor function, To improve ability to perform ADL's, To increase tolerance to activity/condition/position, To improve performance and independence with ADL's, To improve ability of physical actions for home/community/work/leisure, To improve gait and locomotor functions, To increase flexibility/ROM, To improve endurance, To improve balance, To improve ability to perform tasks related to life management Please do not hesitate to contact me at [phone] by phone or if you have questions or concerns regarding this new plan of care! Sincerely, Simón Beaver, PT, Cert MDT, OCS
--- NOTE | 2020-08-23 10:46 | HP.PTDCSUM ---
It has been my pleasure to treat MARY SAN referred by KENRICK Rain, with the diagnosis of MALAISE,UNSPECIFIED FALL for a total of 8 visit(s). Discharge Date: Please see the following information for a summary of their discharge status. Subjective: Patient was at fishing on low chair several times cause legs ache and sore..easier to get out of chair. Patient vhas been using rollor Right Lower Extremity Pain Intensity (Out of 10): 2 % Improvement: 80 Objective/Function: POSTURE: mild foward posture. EDEMA:1+ lower legs. GAIT: ambulates with rollator. STAIR: one step at time with rail. MMT: quads/hams 4/5,hip flexion 4-/5 Goal 1:: Patient to be I with HEP. Goal Progress: Progressing Goal 2:: Patient increase strength BLE -QUADS/HAMS/HIP 4/5 to improve function. Goal Progress: Progressing Goal 3:: Patient to improve CATSIB by 5 points or > to decrease risk of falls. Goal Progress: Progressing Goal 4:: Patient to improve functional gait assessment score by 8 points or > to decrese risk of falls. Goal Progress: Progressing Goal 5:: Patient improve LFES score by 5-10 points or > to improve QOL Goal Progress: Progressing Plan: D/C If there are questions or concerns regarding this patient's physical therapy, please feel free to call me at [phone]. Thank you for the referral of this patient. Sincerely, Simón Beaver, PT, Cert MDT, OCS
== END 2020-05-08 19:00 | disposition home or self-care (01) ==
LOC: PT 13:00
PROVIDERS: PCP Internal Medicine; Visit Provider Nurse Practitioner Family
DX: R53.81 Other malaise (principal); W19.XXXD Unspecified fall, subsequent encounter
CPT/HCPCS: 97110; 97162

== ENCOUNTER → 2020-06-19 09:44 | Outpatient (CLI) | payer MEDICARE, BC, SELFPAY ==
[2020-05-24 10:30] VITALS: BMI 36.3
[2020-06-19 11:01] LABS: Protein, Urine (Random) 236.2 mg/dL (<11.9); Protein:Creat Ratio 2090 mg/g CRE (0-200)
[2020-06-19 11:16] LABS: Albumin, Serum 2.9 g/dL (3.2-5.0); BUN 21 mg/dL (7-18); BUN/Creat Ratio 18.3 RATIO (10-20); Calcium,Total 9.8 mg/dL (8.5-10.1); Chloride 104 mmol/L (98-107); Creatinine, Serum 1.15 mg/dL (0.70-1.30); EST Glomerular Filtration Rate 65 mL/min (>60); Est Glom Filt Rate - Afr Amer 79 mL/min (>60); Glucose 188 mg/dL (74-106); Phosphorus 3.2 mg/dL (2.5-4.9); Potassium 4.1 mmol/L (3.5-5.1); Sodium Level 139 mmol/L (136-145)
[2020-06-19 11:17] LABS: Vitamin D,25 Hydroxy 23.7 ng/mL
== END ==
PROVIDERS: PCP Internal Medicine; Visit Provider Internal Medicine Nephrology
DX: E11.22 Type 2 diabetes mellitus with diabetic chronic kidney disease (principal); N18.30 Chronic kidney disease, stage 3 unspecified; E11.21 Type 2 diabetes mellitus with diabetic nephropathy; E59 Dietary selenium deficiency
CPT/HCPCS: 36415; 80069; 82306; 82570; 84156

== ENCOUNTER → 2020-08-23 11:25 | Outpatient (CLI) | payer MEDICARE, BC, SELFPAY ==
[2020-08-23 10:49] VITALS: BMI 34.7
[2020-08-23 12:39] LABS: Anion Gap 3 (5-15); BUN 20 mg/dL (7-18); BUN/Creat Ratio 17.9 RATIO (10-20); Calcium,Total 9.7 mg/dL (8.5-10.1); Chloride 106 mmol/L (98-107); Creatinine, Serum 1.12 mg/dL (0.70-1.30); EST Glomerular Filtration Rate 67 mL/min (>60); Est Glom Filt Rate - Afr Amer 81 mL/min (>60); Glucose 179 mg/dL (74-106); Potassium 4.4 mmol/L (3.5-5.1); Sodium Level 137 mmol/L (136-145)
[2020-08-23 12:52] LABS: Absolute Lymphocyte Count 1.42 X10^3/uL (0.83-4.51); Basophil# 0.05 X10^3/uL; Basophil% 0.7 % (0-1); Eosinophil# 0.45 X10^3/uL; Hematocrit 37.4 % (40-54); Hemoglobin 11.7 g/dL (13.0-16.5); Lymphocyte # 1.42 X10^3/ul (4.0); Lymphocyte % 18.9 % (19-41); Mean Corp Hgb Conc 31.3 g/dL (32-36); Mean Corpuscular Hgb 29.2 pg (27.0-32.0); Mean Corpuscular Volume 93.3 fL (80-94); Mean Platelet Vol. 9.7 fl (6.2-12.0); NRBC Flagged by Analyzer 0 % (0-5); Neutrophil # 4.96 X10^3/uL (2.7-7.7); Platelet Count 242 K/mm3 (150-450); RBC Distribution Width CV 13.2 % (11.6-14.6); Red Blood Count 4.01 M/mm3 (4.6-6.2); White Blood Count 7.5 K/mm3 (4.4-11.0)
[2020-08-23 13:09] LABS: Ferritin 46 ng/mL (26-388); Iron 53 ug/dL (65-175); Iron Binding Capacity,Total 381 ug/dL (250-450)
== END ==
PROVIDERS: Nurse Practitioner Family; PCP Internal Medicine; Referring Provider Internal Medicine; Visit Provider Internal Medicine
DX: I10 Essential (primary) hypertension (principal); D64.9 Anemia, unspecified; E11.42 Type 2 diabetes mellitus with diabetic polyneuropathy
CPT/HCPCS: 36415; 80048; 82728; 83540; 83550; 85025

== ENCOUNTER 2020-09-30 11:33 | Emergency (ER) | payer MEDICARE, BC, SELFPAY ==
[2020-09-05 12:19] VITALS: BMI 35.2
[2020-09-30 11:33] VITALS: BP 161/57; PULSE 79; RESP 23; TEMP 36.7; O2SAT 97; BMI 35.4
--- NOTE | 2020-09-30 11:42 | EKG12_ITS ---
Test Reason : CP Blood Pressure : / mmHG Vent. Rate : 074 BPM Atrial Rate : 074 BPM P-R Int : 100 ms QRS Dur : 110 ms QT Int : 432 ms P-R-T Axes : 055 070 066 degrees QTc Int : 479 ms Sinus rhythm with short CA Nonspecific ST abnormality Abnormal ECG Confirmed by AVILA DUNCAN, ALBERTO ([id number]), editorial assistant NITZA ROJAS ([id number]) on 10/02/2020 11:55:29 A M Referred By: JAX Confirmed By:SCARLETT GRAMAJO MD
--- NOTE | 2020-09-30 11:42 | RAD_ITS ---
STUDY: X-RAY CHEST REASON FOR EXAM: Male, 80 years old. chest pain since getting the covid vaccine on the TECHNIQUE: Single AP portable view of the chest. COMPARISON: 03/26/2020 FINDINGS: The lungs are clear and expanded. There is no demonstrated pleural abnormality. There is moderate cardiac enlargement. Normal mediastinum and lakhwinder. Normal visualized pulmonary arteries. Normal visualized aortic arch and descending thoracic aorta. Normal visualized thoracic spine. Normal visualized ribs, clavicles, and shoulders. There is no demonstrated abnormality of the visualized soft tissue structures of the upper abdomen. RAD/Chest 1 View (Portable) IMPRESSION: No active disease. Electronically Signed: Vin Gibbs MD at 12:14 EST Tel , Service support ,
--- NOTE | 2020-09-30 11:43 | ED.VIS.GEN ---
History of Present Illness Chief Complaint: Chest Pain Informant: Patient Onset: Yesterday Context: Gradual Onset Timing: Waxes and wanes Quality: Sharp Location: Left anterior lateral chest Current Severity: Mild Maximum Severity: Moderate Narrative: Patient presents secondary to concern for chest pain. He points to the anterior lateral left chest wall and describing the area of pain. He states it is sharp and earlier today did feel it radiated toward his sternum. It is intermittent and worse with deep breath. Patient has a history of SVT and A. fib. He is currently on Xarelto. He is also on flecainide for rhythm control. Patient denies any fall or chest wall injury. He did get his Covid vaccination shot on the , the day before his symptoms started. He does describe some dizziness and states that he has a history of vertigo. 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 Lives: Spouse/ Significant Other Smoking Status: Former smoker - Family History Maternal Family History: Family History (Last Reviewed 09/05/20 @ 13:[address] Sajan Rogers MD) Father Diabetes Hypertension Cancer Mother Hypertension CVA (cerebral vascular accident) Sister Diabetes Son Diabetes Family History: Reports: Stroke - His mother had stroke in her 70's. Paternal Family History: Family History (Last Reviewed 09/05/20 @ 13:[address] Sajan Rogers MD) Father Diabetes Hypertension Cancer Mother Hypertension CVA (cerebral vascular accident) Sister Diabetes Son Diabetes Family History: Reports: Cancer - Lung Review of Systems General: Denies: Chills, Fever Eyes: Denies: Visual changes - bilaterally ENT: Denies: Bilateral ear pain Cardiovascular: Reports: Chest pain Respiratory: Denies: Dyspnea, Cough Gastrointestinal: Denies: Abdominal pain, Nausea, Vomiting, Diarrhea Genitourinary: Denies: Dysuria Musculoskeletal: Denies: Swelling, Extremity Pain Skin: Denies: Rash Neurological: Denies: Headache Hematologic: Denies: Easy bruising, Easy bleeding Allergy: Denies: Uticaria Physical Exam Vital Signs/Narrative: Vital Signs Temp Pulse Resp BP Pulse Ox 09/30/20 11:33 98.1 F 79 23 H 161/57 H 97 Inital Vital Signs reviewed: Yes General: Well nourished, Well developed Head: Normocephalic ENT: Moist mucous membranes Neck: Supple Cardiovascular: Regular rate, Regular rhythm Respiratory: No distress, CTA bilaterally, Chest nontender Abdomen: Soft, Nontender Extremities: Nontender Skin: Normal color Neurological: Alert, Oriented x3 Psychological: Normal affect Diagnostic/Tx/Re-eval Chest X-Ray - ED: 1 View, Read by ED Physician, Chronic Changes Impressions Chest X-Ray 09/30/20 11:42 IMPRESSION: No active disease. Electronically Signed: Vin Gibbs MD at 12:14 EST Tel , Service support , 09/30/20 11:42 Chest 1 View (Portable) [RAD] Stat Laboratory Results 09/30/20 09/30/20 09/30/20 11:55 11:55 11:55 WBC 6.9 RBC 3.81 L Hgb 11.4 L Hct 35.6 L MCV 93.4 MCH 29.9 MCHC 32.0 RDW Std Deviation 44.8 H RDW Coeff of Flavio 13.2 Plt Count 199 MPV 9.6 Immature Gran % (Auto) 0.600 Neut % (Auto) 59.9 Lymph % (Auto) 22.9 Sebastian % (Auto) 7.6 Eos % (Auto) 8.1 H Baso % (Auto) 0.9 Absolute Neuts (auto) 4.2 Absolute Lymphs (auto) 1.59 Nucleated RBC % 0 D-Dimer Quant (PE/DVT) <= 0.27 Sodium 138 Potassium 4.4 Chloride 106 Carbon Dioxide 27.0 Anion Gap 5 BUN 18 Creatinine 1.20 Estim Creat Clear Calc 52.99 Est GFR (MDRD) Af Amer 75 Est GFR (MDRD) Non-Af 62 BUN/Creatinine Ratio 15.0 Glucose 214 H Calcium 8.9 Troponin I < 0.015 - EKG Initial EKG Interpretation: Sinus Rhythm - Sinus at 74 with no acute ischemia. - Medical Decision Making Patient was given aspirin arrival. Patient was observed on court recording monitor throughout his ED stay with no arrhythmia noted. Chest x-ray is reviewed by myself and unremarkable. Radiologist interpretation is also reviewed. EKG is unremarkable. Blood work at this point is reassuring with normal troponin and D-dimer. Test results are discussed with patient and at bedside. They are reassured with these findings. I did review the patient's last cardiology note and it is noted that the patient has very minimal cardiac disease. His pain is very atypical for cardiac etiology. I recommended using Tylenol as well as heating pad to the area to see if we can reduce the chest wall pain. ED Disposition - Plan for ED Patient: Disposition: Home or Assisted Living Diagnosis: Chest wall pain Instructions: ED Chest Pain, Uncertain Cause Referrals: Tosha Shrestha MD [Primary Care Provider] - 3-5 Days if not improving
[2020-09-30] MEDS: Aspirin 81 MG TAB.CHEW 324 MG PO (11:50)
[2020-09-30 12:14] LABS: Absolute Lymphocyte Count 1.59 X10^3/uL (0.83-4.51); Absolute Neutrophil Count 4.2 X10^3/uL (2.0-7.7); Basophil# 0.06 X10^3/uL; Basophil% 0.9 % (0-1); Eosinophil# 0.56 X10^3/uL; Eosinophils% 8.1 % (0-5); Hematocrit 35.6 % (40-54); Hemoglobin 11.4 g/dL (13.0-16.5); Lymphocyte # 1.59 X10^3/ul (4.0); Lymphocyte % 22.9 % (19-41); Mean Corpuscular Hgb 29.9 pg (27.0-32.0); Mean Corpuscular Volume 93.4 fL (80-94); Mean Platelet Vol. 9.6 fl (6.2-12.0); Monocyte# 0.53 X10^3/uL; Monocyte% 7.6 % (0-10); NRBC Flagged by Analyzer 0 % (0-5); Neutrophil # 4.15 X10^3/uL (2.7-7.7); Neutrophil % 59.9 % (47-70); Platelet Count 199 K/mm3 (150-450); RBC Distribution Width CV 13.2 % (11.6-14.6); RBC Distribution Width SD 44.8 fl (35.1-43.9); Red Blood Count 3.81 M/mm3 (4.6-6.2); White Blood Count 6.9 K/mm3 (4.4-11.0)
[2020-09-30 12:27] LABS: Anion Gap 5 (5-15); BUN 18 mg/dL (7-18); Calcium,Total 8.9 mg/dL (8.5-10.1); Chloride 106 mmol/L (98-107); EST Glomerular Filtration Rate 62 mL/min (>60); Est Glom Filt Rate - Afr Amer 75 mL/min (>60); Estimated Creatinine Clearance 52.99 ml/min; Glucose 214 mg/dL (74-106); Potassium 4.4 mmol/L (3.5-5.1); Sodium Level 138 mmol/L (136-145)
[2020-09-30 12:42] LABS: D-Dimer Quantitative (DVT/PE) <= 0.27 FEU/ug/m (0.27-0.49)
[2020-09-30 12:47] VITALS: BP 147/63; PULSE 68; RESP 18; O2SAT 99
== END 2020-09-30 13:06 | disposition home or self-care (01) ==
PROVIDERS: Emergency Provider Emergency Medicine; PCP Internal Medicine
DX: R07.89 Other chest pain (principal); E11.42 Type 2 diabetes mellitus with diabetic polyneuropathy; I10 Essential (primary) hypertension; I48.91 Unspecified atrial fibrillation; E78.5 Hyperlipidemia, unspecified; Z87.891 Personal history of nicotine dependence; Z79.02 Long term (current) use of antithrombotics/antiplatelets; Z79.84 Long term (current) use of oral hypoglycemic drugs
CPT/HCPCS: 71045; 80048; 84484; 85025; 85379; 93005; 99285; A4216

== ENCOUNTER 2020-10-17 02:16 | Emergency (ER) | payer MEDICARE, BC, SELFPAY ==
[2020-10-17 02:16] VITALS: PULSE 75; RESP 16; TEMP 36.5; O2SAT 97; BMI 35.4
--- NOTE | 2020-10-17 02:27 | CT_ITS ---
STUDY: CT ABDOMEN AND PELVIS WITHOUT CONTRAST REASON FOR EXAM: Male, 80 years old. left flank pain RADIATION DOSAGE (If Supplied By Facility): CTDIvol = ( 20.77 ) mGy, DLP = ( 1126.22 ) mGycm TECHNIQUE: Transaxial images were obtained from the dome of the diaphragm to the symphysis pubis without oral contrast, and without intravenous contrast. Sagittal and coronal images were reconstructed. Individualized dose optimization techniques were used for this CT. COMPARISON: None. FINDINGS: The visualized lung bases are unremarkable. The visualized portions of the heart are within normal limits. Normal liver. There are multiple gallstones. Normal spleen. Normal pancreas. Normal bilateral adrenal glands. Nonobstructing right lower pole nephrolith measuring 9 mm. Mild left hydronephrosis and left ureter with a stone at the left UPJ measuring 6 mm. Additional left-sided cysts and nonobstructing stone. Normal visualized stomach. Normal small intestine. Normal colon. The appendix is visualized and appears normal. Normal abdominal aorta. Normal inferior vena cava. Normal retroperitoneum. Normal urinary bladder. Enlarged prostate Normal abdominal wall. Normal osseous structures. CT/Abdomen/Pelvis without Cont IMPRESSION: Mild left hydronephrosis and proximal left hydroureter with stone at the left UPJ as above. Remainder as above Electronically Signed: Sean Castro DO at 3:10 EST Tel , Service support ,
--- NOTE | 2020-10-17 02:29 | ED.VIS.GEN ---
History of Present Illness Chief Complaint: Abd Pain Informant: Patient Onset: Today Current Severity: Moderate Maximum Severity: Moderate Narrative: Patient presents with 2-hour history of left flank pain. He states the pain started rather abruptly and is sharp. He has difficulty finding a position of comfort. He does note a history of kidney stones. He denies dysuria or hematuria. He did have a bowel movement approximately 5 hours ago that was unremarkable. Patient denies fever or chills. 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 Lives: Spouse/ Significant Other Smoking Status: Never smoker - Family History Maternal Family History: Family History (Last Reviewed 09/05/20 @ 13:[address] Sajan Rogers MD) Father Diabetes Hypertension Cancer Mother Hypertension CVA (cerebral vascular accident) Sister Diabetes Son Diabetes Family History: Reports: Stroke - His mother had stroke in her 70's. Paternal Family History: Family History (Last Reviewed 09/05/20 @ 13:[address] Sajan Rogers MD) Father Diabetes Hypertension Cancer Mother Hypertension CVA (cerebral vascular accident) Sister Diabetes Son Diabetes Family History: Reports: Cancer - Lung Review of Systems General: Denies: Chills, Fever Eyes: Denies: Visual changes - bilaterally ENT: Denies: Bilateral ear pain Cardiovascular: Denies: Chest pain, Palpitations Respiratory: Denies: Dyspnea, Cough Gastrointestinal: Reports: Abdominal pain. Denies: Vomiting, Diarrhea Genitourinary: Denies: Dysuria, Hematuria Musculoskeletal: Denies: Swelling, Extremity Pain Skin: Denies: Rash Neurological: Denies: Headache Hematologic: Denies: Easy bruising, Easy bleeding Allergy: Denies: Uticaria Physical Exam Vital Signs/Narrative: Vital Signs Temp Pulse Resp Pulse Ox 10/17/20 02:16 97.7 F L 75 16 97 Inital Vital Signs reviewed: Yes General: Well nourished, Well developed Head: Normocephalic ENT: Moist mucous membranes Neck: Supple Cardiovascular: Regular rate, Regular rhythm Respiratory: No distress, CTA bilaterally Abdomen: Soft, Tender - Left lower quadrant tenderness to palpation., Hypoactive bowel sounds. Negative for: Guarding, Rebound tenderness Back: CVA tenderness - Left CVA tenderness Extremities: Nontender Skin: Normal color Neurological: Alert, Normal Sensation Psychological: Normal affect Diagnostic/Tx/Re-eval Impressions Abdomen/Pelvis CT 10/17/20 02:27 IMPRESSION: Mild left hydronephrosis and proximal left hydroureter with stone at the left UPJ as above. Remainder as above Electronically Signed: Sean Castro DO at 3:10 EST Tel , Service support , 10/17/20 02:27 Abdomen/Pelvis without Cont [CT] Stat Laboratory Results 10/17/20 10/17/20 10/17/20 02:25 02:25 04:05 WBC 9.2 RBC 4.04 L Hgb 11.9 L Hct 37.7 L MCV 93.3 MCH 29.5 MCHC 31.6 L RDW Std Deviation 44.5 H RDW Coeff of Flavio 13.0 Plt Count 202 MPV 9.2 Immature Gran % (Auto) 0.800 Neut % (Auto) 65.3 Lymph % (Auto) 20.7 Sunflower % (Auto) 7.7 Eos % (Auto) 4.8 Baso % (Auto) 0.7 Absolute Neuts (auto) 6.0 Absolute Lymphs (auto) 1.90 Nucleated RBC % 0 Sodium 140 Potassium 4.5 Chloride 104 Carbon Dioxide 28.0 Anion Gap 8 BUN 23 H Creatinine 1.42 H Estim Creat Clear Calc 44.78 Est GFR (MDRD) Af Amer 62 Est GFR (MDRD) Non-Af 51 L BUN/Creatinine Ratio 16.2 Glucose 289 H Calcium 8.8 Urine Color Yellow Urine Clarity Clear Urine pH 6.0 Ur Specific [place] 1.020 Urine Protein 100 H Urine Glucose (UA) 1000 H Urine Ketones Negative Urine Occult Blood 250 H Urine Nitrite Negative Urine Bilirubin Negative Urine Urobilinogen Normal Ur Leukocyte Esterase Negative Urine RBC 5-10 SEEN Urine WBC 0 SEEN Ur Squamous Epith Cells 0 SEEN Urine Bacteria 0 SEEN Urine Mucus 0 SEEN - Medical Decision Making Patient was given Toradol, morphine, Zofran, and IV fluids. On repeat evaluation patient states his pain is around a [address] scan was reviewed with the patient and at bedside. He has a 6 mm stone at the proximal left ureter/UPJ. I spoke with Dr. Jackson. Because the patient's pain is well controlled at this time he will be discharged home with pain medication. Patient is to call the office today and Dr. Jackson will see him in the office today. Prescriptions will be sent to the hospital pharmacy so that he can go home with his pain medication. ED Disposition - Plan for ED Patient: Disposition: Home or Assisted Living Diagnosis: Kidney stone on left side Instructions: ED Kidney Stone w/ Colic Prescriptions: Oxycodone HCl/Acetaminophen [Percocet 5/325] 1 tablet PO Q6H PRN PRN 3 Days #12 tablet PRN Reason: Pain Transmission Status: Received by [id number] Ketorolac [Toradol] 10 mg PO Q12H #7 tab Transmission Status: Pending to [id number] Ondansetron [Zofran Odt] 4 mg PO Q8H PRN PRN #10 tab PRN Reason: Nausea Transmission Status: Pending to [id number] Referrals: Mohit Jackson MD [STAFF PHYSICIAN] - As soon as possible Additional Instructions: Per Dr Jackson - call the office this morning to be seen today
[2020-10-17 02:33] LABS: Basophil# 0.06 X10^3/uL; Basophil% 0.7 % (0-1); Eosinophil# 0.44 X10^3/uL; Eosinophils% 4.8 % (0-5); Hematocrit 37.7 % (40-54); Hemoglobin 11.9 g/dL (13.0-16.5); Lymphocyte % 20.7 % (19-41); Mean Corp Hgb Conc 31.6 g/dL (32-36); Mean Corpuscular Hgb 29.5 pg (27.0-32.0); Mean Corpuscular Volume 93.3 fL (80-94); Mean Platelet Vol. 9.2 fl (6.2-12.0); Monocyte# 0.71 X10^3/uL; Monocyte% 7.7 % (0-10); NRBC Flagged by Analyzer 0 % (0-5); Neutrophil # 6.02 X10^3/uL (2.7-7.7); Neutrophil % 65.3 % (47-70); Platelet Count 202 K/mm3 (150-450); RBC Distribution Width SD 44.5 fl (35.1-43.9); Red Blood Count 4.04 M/mm3 (4.6-6.2); White Blood Count 9.2 K/mm3 (4.4-11.0)
[2020-10-17] MEDS: 0.9% Normal Saline 1,000 ML 150 ML IV (02:41)
[2020-10-17] MEDS: Ketorolac 15 MG/ML Vial IV (02:41)
[2020-10-17] MEDS: Morphine 2 MG/ML Syringe IV (02:41)
[2020-10-17] MEDS: Ondansetron 4 MG/2 ML Vial IV (02:41)
[2020-10-17 02:45] LABS: Anion Gap 8 (5-15); BUN 23 mg/dL (7-18); BUN/Creat Ratio 16.2 RATIO (10-20); Calcium,Total 8.8 mg/dL (8.5-10.1); Chloride 104 mmol/L (98-107); Creatinine, Serum 1.42 mg/dL (0.70-1.30); EST Glomerular Filtration Rate 51 mL/min (>60); Est Glom Filt Rate - Afr Amer 62 mL/min (>60); Estimated Creatinine Clearance 44.78 ml/min; Glucose 289 mg/dL (74-106); Potassium 4.5 mmol/L (3.5-5.1); Sodium Level 140 mmol/L (136-145)
[2020-10-17 04:18] LABS: Bacteria 0 SEEN /hpf (None Seen); Mucous, Urine 0 SEEN /hpf (<or=2+); Squamous Epithelial Cells - UA 0 SEEN /hpf (0-5); White Blood Cells 0 SEEN /hpf (0-5)
[2020-10-17 04:19] LABS: Color, Urine Yellow (Yellow); Glucose, Dipstick 1000 mg/dl (Normal); Ketone-Dipstick Negative (Negative); Leukocyte Esterase-Dipstick Negative /ul (Negative); Nitrite-Dipstick Negative (Negative); Occult Blood-Urine 250 /ul (Negative); Protein-Dipstick 100 mg/dl (Negative); Urine Bilirubin Dipstick Negative (Negative); Urine Clarity Clear (Clear); Urine Urobilinogen Normal (Normal)
[2020-10-17 04:20] VITALS: BP 164/63; PULSE 67; RESP 18; O2SAT 95
[2020-10-17 04:24] LABS: Red Blood Cells-Urine 5-10 SEEN /hpf (0-5)
[2020-10-17 04:47] VITALS: BP 144/57; PULSE 71; RESP 19; O2SAT 96
[2020-10-17] MEDS: oxyCODONE 5 MG Tablet PO (05:24)
== END 2020-10-17 04:56 | disposition home or self-care (01) ==
PROVIDERS: Emergency Provider Emergency Medicine; PCP Internal Medicine
DX: N20.0 Calculus of kidney (principal); I10 Essential (primary) hypertension; E11.42 Type 2 diabetes mellitus with diabetic polyneuropathy; E78.5 Hyperlipidemia, unspecified; Z87.442 Personal history of urinary calculi; Z79.84 Long term (current) use of oral hypoglycemic drugs
CPT/HCPCS: 74176; 80048; 81001; 85025; 96374; 96375; 99284; J7030; A4216; J2405

== ENCOUNTER 2020-10-19 16:43 | Emergency (ER) | payer MEDICARE, BC, SELFPAY ==
[2020-10-19 16:49] VITALS: BP 156/72; PULSE 74; RESP 16; RESP 18; TEMP 36.3; O2SAT 98; O2SAT 99; BMI 36.4
--- NOTE | 2020-10-19 17:15 | CT_ITS ---
We are attempting to reach an attending provider to discuss findings. An addendum with communication details will be sent when the communication is complete. STUDY: CT BRAIN WITHOUT CONTRAST REASON FOR EXAM: Male, 80 years old. vertigo RADIATION DOSAGE (If Supplied By Facility): CTDIvol = ( 44.99 ) mGy, DLP = ( 829.85 ) mGycm TECHNIQUE: Transaxial CT imaging of the brain was performed without administration of intravenous contrast material. Individualized dose optimization techniques were used for this CT. COMPARISON: Prior head CT exam of 10/01/2019 FINDINGS: Normal soft tissue structures. Normal calvarium. There is mild cerebral atrophy with widening of the extra-axial spaces and ventricular dilatation. There are areas of decreased attenuation within the white matter tracts of the supratentorial brain, consistent with microvascular disease changes. 5 x 4 mm hyperdense focus of the left posterior parieto-occipital region cortical surface or deep sulcus. This focus not present on prior exam of 10/01/2019. Normal basal ganglia and thalami. Normal brainstem. Normal cerebellum. There is no intracranial hemorrhage. There are no findings of an acute ischemic infarction. Normal visualized paranasal sinuses. CT/Brain/Head without Contrast IMPRESSION: New small, 5 x 4 mm, blood density in the left posterior parieto-occipital region which is probably on the cortical surface or deep sulcus consistent with acute hemorrhage from prior exam. Negative for generalized subarachnoid hemorrhage. No other acute intracranial findings or changes. Mild generalized involutional changes for age. Electronically Signed: Meghann Castro MD at 18:46 EST , Service support ,
--- NOTE | 2020-10-19 17:17 | ED.VIS.GEN ---
History of Present Illness Chief Complaint: Lower Extremity Injury Informant: Patient Onset: Today - JPTA Context: Sudden Onset Timing: Continuous Quality: pain Location: R ankle Current Severity: Moderate Maximum Severity: Severe Worsened by: trying to WB on RLE Relieved by: remaining still/rest Associated Symptoms: see below Narrative: Patient gets around with a walker at home, he states he was putting a walker aside so that he could transition around a countertop to sit on a nearby counter stool, and when he did so he became dizzy like things were moving, which caused him to fall and injure his right ankle. He also thinks he hit the back of his head but did not have any headache. He is not sure the exact mechanism of right ankle injury but denies injuring anything else. He denies any loss of consciousness, headache, vision changes with this, or any other peripheral neurologic symptoms. He states he has vertigo with spinning periodically over the past several years, but this episode was more severe, similar in quality. Additionally, for the past 4 days or so he has been treating pain from a left-sided 6 mm kidney stone that was diagnosed here with oxycodone. It has been making him feel groggy and having difficulty getting around. He has an appointment scheduled with urology within the next week or 2. He denies any urinary symptoms or fevers/chills. As result of feeling groggy, he tried to avoid the oxycodone and took some Tylenol earlier but it is not helping the pain he has in his left lower quadrant. Patient takes Xarelto for history of paroxysmal atrial flutter. 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 Lives: Spouse/ Significant Other Smoking Status: Never smoker - Family History Maternal Family History: Family History (Last Reviewed 09/05/20 @ 13:[address] Saajn Rogers MD) Father Diabetes Hypertension Cancer Mother Hypertension CVA (cerebral vascular accident) Sister Diabetes Son Diabetes Family History: Reports: Stroke - His mother had stroke in her 70's. Paternal Family History: Family History (Last Reviewed 09/05/20 @ 13:[address] Sajan Rogers MD) Father Diabetes Hypertension Cancer Mother Hypertension CVA (cerebral vascular accident) Sister Diabetes Son Diabetes Family History: Reports: Cancer - Lung Review of Systems General: Reports: Malaise - Generalized weakness. Denies: Chills, Fever, Sweats Eyes: Denies: Visual changes - bilaterally, Diplopia ENT: Denies: Rhinorrhea, Sore throat Cardiovascular: Denies: Chest pain, Palpitations Respiratory: Denies: Dyspnea, Cough, Dyspnea on exertion Gastrointestinal: Reports: Abdominal pain. Denies: Nausea, Vomiting, Diarrhea, Melena, Hematochezia Genitourinary: Denies: Dysuria, Hematuria, Frequency Musculoskeletal: Reports: Back pain - Left low, from kidney stone recently, Extremity Pain - Right ankle only. Denies: Swelling Skin: Denies: Rash, Wounds Neurological: Denies: Headache, Weakness, Numbness Physical Exam Vital Signs/Narrative: Vital Signs Temp Pulse Resp BP Pulse Ox 10/19/20 16:49 97.4 F L 74 16 156/72 H 98 Inital Vital Signs reviewed: Yes General: Well nourished, Well developed, No Acute Distress - Keenly alert and conversive, oriented Head: Normocephalic, Atraumatic Eyes: Perrl, EOMI ENT: Moist mucous membranes, No rhinorrhea Neck: Supple, Nontender Cardiovascular: Regular rate, Regular rhythm, No murmurs. Negative for: Tachycardia Respiratory: No distress, CTA bilaterally, Chest nontender Abdomen: Soft, Nondistended, Normal bowel sounds, Tender - Mild left lower quadrant only. Negative for: Guarding, Rebound tenderness Back: Nontender, Normal Inspection. Negative for: CVA tenderness Extremities: Tenderness - Lateral right ankle. No deformity. No medial malleoli or tenderness, base of the fifth metatarsal or other foot tenderness, or mid leg/knee/proximal fibula tenderness., Edema - 1+ both lower extremities symmetric, - - Except for left ankle, full range of motion throughout all other joints of all 4 extremities without pain including his hips. Skin: Normal color, No rash, No Trauma Neurological: Alert, Oriented x3, Cranial nerves II-XII grossly intact, Normal Strength, Normal Sensation Psychological: Normal affect, Normal Mood Diagnostic/Tx/Re-eval Clinical Impression(s) from Imaging Studies Brain CT 10/19/20 17:15 IMPRESSION: New small, 5 x 4 mm, blood density in the left posterior parieto-occipital region which is probably on the cortical surface or deep sulcus consistent with acute hemorrhage from prior exam. Negative for generalized subarachnoid hemorrhage. No other acute intracranial findings or changes. Mild generalized involutional changes for age. Electronically Signed: Meghann Castro MD at 18:46 EST , Service support , ADDENDUM: 10/19/20 1904 IMPRESSION: New small, 5 x 4 mm, blood density in the left posterior parieto-occipital region which is probably on the cortical surface or deep sulcus consistent with acute hemorrhage from prior exam. Negative for generalized subarachnoid hemorrhage. No other acute intracranial findings or changes. Mild generalized involutional changes for age. N.B. : The above information has been verbally conveyed by Meghann Castro MD to Dr. Mehran Fay MD, on 10/19/2020 18:57:16 (ET). Electronically Signed: Meghann Castro MD at 18:46 EST , Service support , Laboratory Results 10/19/20 10/19/20 17:55 17:55 WBC 9.6 RBC 3.81 L Hgb 11.4 L Hct 35.2 L MCV 92.4 MCH 29.9 MCHC 32.4 RDW Std Deviation 44.1 H RDW Coeff of Flavio 13.0 Plt Count 179 MPV 9.6 Immature Gran % (Auto) 0.500 Neut % (Auto) 73.4 H Lymph % (Auto) 13.6 L Webb % (Auto) 10.9 H Eos % (Auto) 1.3 Baso % (Auto) 0.3 Absolute Neuts (auto) 7.0 Absolute Lymphs (auto) 1.30 Nucleated RBC % 0 Sodium 135 L Potassium 4.2 Chloride 101 Carbon Dioxide 26.0 Anion Gap 8 BUN 33 H Creatinine 2.11 H Estim Creat Clear Calc 30.14 Est GFR (MDRD) Af Amer 39 L Est GFR (MDRD) Non-Af 32 L BUN/Creatinine Ratio 15.6 Glucose 231 H Calcium 8.7 Troponin I < 0.015 - Medical Decision Making CT of the head shows a small 5 mm bleed. The radiologist agrees this could be traumatic. On my interpretation 3 views of the right ankle show a nondisplaced distal fibula fracture. Labs are obtained and show acute on chronic renal insufficiency. The patient is on Xarelto, his last dose was this morning. On reexamination he is still neurologically intact does not have a headache and has GCS 15 with stable blood pressure 150s. I splinted his right ankle in a short leg posterior and sugartong splint. Family prefers to go to [facility] after we discussed possibilities and the need for transfer. Accepted there by Dr. Alexis. Given that the intracerebral hemorrhage is so tiny at 5 mm, and he is neurologically intact and asymptomatic from it, I do not think he needs cryoprecipitate at this time. - Critical Care Time Critical care time (excluding procedures): 30-74 minutes - 32 minutes including time spent discussing with patient and consultants, arranging admission, performing direct patient care and reevaluation at the bedside, and documentation. Time exclusive of procedures. Procedures - Lower Extremity Splints Lower Extremity Splint: Orthoglass, - - Short leg posterior and sugar tong. Neurovascularly intact distally after placement. Splint Fabrication: Fabricated Location: Right ED Disposition - Plan for ED Patient: Disposition: [facility] Diagnosis: Intracerebral hemorrhage, Vertigo, Closed traumatic nondisplaced fracture of distal end of right fibula, HORACE (acute kidney injury) Referrals: Tosha Shrestha MD [Primary Care Provider] -
[2020-10-19] MEDS: Ondansetron 4 MG/2 ML Vial IV (18:07)
[2020-10-19] MEDS: Meclizine HCl 25 MG Tablet PO (18:07)
[2020-10-19] MEDS: Morphine 2 MG/ML Syringe IV (18:07)
--- NOTE | 2020-10-19 18:14 | RAD_ITS ---
STUDY: X-RAY - RIGHT ANKLE REASON FOR EXAM: Male, 80 years old. injury /pain TECHNIQUE: 3 view(s) of the ankle. COMPARISON: None. FINDINGS: Normal visualized distal tibia and fibula. Normal medial and lateral malleoli. Normal tibiotalar articulation and ankle mortise. Dorsal enthesophyte and plantar spur of the calcaneus. Otherwise normal calcaneus and talus. The visualized subtalar, talonavicular, calcaneocuboid and tarsal articulations are normal. Soft tissue swelling. Vascular calcifications. RAD/Ankle min 3 Views IMPRESSION: Soft tissue swelling without underlying fracture or dislocation. Electronically Signed: Meghann Castro MD at 19:09 EST , Service support ,
[2020-10-19 18:19] LABS: Basophil# 0.03 X10^3/uL; Basophil% 0.3 % (0-1); Eosinophil# 0.12 X10^3/uL; Eosinophils% 1.3 % (0-5); Hematocrit 35.2 % (40-54); Hemoglobin 11.4 g/dL (13.0-16.5); Lymphocyte % 13.6 % (19-41); Mean Corp Hgb Conc 32.4 g/dL (32-36); Mean Corpuscular Hgb 29.9 pg (27.0-32.0); Mean Corpuscular Volume 92.4 fL (80-94); Mean Platelet Vol. 9.6 fl (6.2-12.0); Monocyte# 1.04 X10^3/uL; Monocyte% 10.9 % (0-10); NRBC Flagged by Analyzer 0 % (0-5); Neutrophil # 7.02 X10^3/uL (2.7-7.7); Neutrophil % 73.4 % (47-70); Platelet Count 179 K/mm3 (150-450); RBC Distribution Width SD 44.1 fl (35.1-43.9); Red Blood Count 3.81 M/mm3 (4.6-6.2); White Blood Count 9.6 K/mm3 (4.4-11.0)
[2020-10-19 18:41] LABS: Anion Gap 8 (5-15); BUN 33 mg/dL (7-18); BUN/Creat Ratio 15.6 RATIO (10-20); Calcium,Total 8.7 mg/dL (8.5-10.1); Chloride 101 mmol/L (98-107); Creatinine, Serum 2.11 mg/dL (0.70-1.30); EST Glomerular Filtration Rate 32 mL/min (>60); Est Glom Filt Rate - Afr Amer 39 mL/min (>60); Estimated Creatinine Clearance 30.14 ml/min; Glucose 231 mg/dL (74-106); Potassium 4.2 mmol/L (3.5-5.1); Sodium Level 135 mmol/L (136-145)
[2020-10-19 19:02] VITALS: RESP 15
[2020-10-19 19:18] LABS: Color, Urine Yellow (Yellow); Glucose, Dipstick Normal (Normal); Ketone-Dipstick Negative (Negative); Leukocyte Esterase-Dipstick Negative /ul (Negative); Mucous, Urine 0 SEEN /hpf (<or=2+); Nitrite-Dipstick Negative (Negative); Occult Blood-Urine 50 /ul (Negative); Protein-Dipstick 100 mg/dl (Negative); Red Blood Cells-Urine 0 SEEN /hpf (0-5); Squamous Epithelial Cells - UA 0 SEEN /hpf (0-5); Urine Bilirubin Dipstick Negative (Negative); Urine Clarity Clear (Clear); Urine Urobilinogen Normal (Normal); White Blood Cells 0 SEEN /hpf (0-5)
[2020-10-19 19:26] LABS: Bacteria 1+ /hpf (None Seen)
[2020-10-19 19:55] VITALS: BP 173/68; PULSE 89; RESP 18; TEMP 36.6; O2SAT 95
== END 2020-10-19 20:04 | disposition short-term general hospital (02) ==
PROVIDERS: Emergency Provider Emergency Medicine; PCP Internal Medicine
DX: S06.309A Unspecified focal traumatic brain injury with loss of consciousness of unspecified duration, initial encounter (principal); S82.491A Other fracture of shaft of right fibula, initial encounter for closed fracture; N17.9 Acute kidney failure, unspecified; E78.5 Hyperlipidemia, unspecified; I10 Essential (primary) hypertension; E11.42 Type 2 diabetes mellitus with diabetic polyneuropathy; Z87.442 Personal history of urinary calculi; Z79.84 Long term (current) use of oral hypoglycemic drugs; W19.XXXA Unspecified fall, initial encounter
CPT/HCPCS: 29515; 70450; 73610; 80048; 81001; 84484; 85025; 96374; 96375; 99285; A4216; J2405

== ENCOUNTER → 2020-10-23 15:37 | Outpatient (CLI) | payer MEDICARE, BC, SELFPAY ==
[2020-10-19 16:49] VITALS: BMI 36.4
[2020-10-23 17:02] LABS: Anion Gap 6 (5-15); BUN 21 mg/dL (7-18); BUN/Creat Ratio 15.2 RATIO (10-20); Calcium,Total 8.8 mg/dL (8.5-10.1); Chloride 106 mmol/L (98-107); Creatinine, Serum 1.38 mg/dL (0.70-1.30); EST Glomerular Filtration Rate 53 mL/min (>60); Est Glom Filt Rate - Afr Amer 64 mL/min (>60); Glucose 225 mg/dL (74-106); Potassium 4.6 mmol/L (3.5-5.1); Sodium Level 141 mmol/L (136-145)
== END ==
PROVIDERS: PCP Internal Medicine
DX: R79.89 Other specified abnormal findings of blood chemistry (principal)
CPT/HCPCS: 36415; 80048

== ENCOUNTER 2020-11-05 13:00 | Emergency (ER) | payer MEDICARE, BC, SELFPAY ==
[2020-10-31 13:36] VITALS: BMI 33.9
[2020-11-05 13:01] VITALS: BP 166/66; PULSE 70; RESP 26; TEMP 36.3; O2SAT 99; BMI 33.9
--- NOTE | 2020-11-05 13:30 | CT_ITS ---
EXAM: CT HEAD WITHOUT INTRAVENOUS CONTRAST CLINICAL INDICATION: altered mental status TECHNIQUE: Multiple axial images were obtained of the head without intravenous contrast. This CT exam was performed using one or more of the following dose reduction techniques: automated exposure control, adjustment of the mA and/or kV according to patient size, and/or use of iterative reconstruction technique. [employer] report generation technology utilized. COMPARISON: 10/19/2020 FINDINGS: BRAIN AND EXTRA-AXIAL SPACES: Since prior study, the previously described small hemorrhage of the left parieto-occipital region is significantly less distinct and much more subtle, indicating normal evolution of an intracranial hemorrhage. Again, no mass effect. Stable mild atrophy and White matter disease. No evidence of acute infarct. There is preservation of the gilliland/white matter interface. Posterior fossa structures are unremarkable. No hydrocephalus. Basal cisterns are patent. BONES/JOINTS: Unremarkable. No discrete lytic or blastic abnormalities. SINUSES: Unremarkable as visualized. Clear. MASTOID AIR CELLS: Unremarkable. Clear. ORBITS: Visualized globes, extraocular muscles, optic nerves and retrobulbar fat appear unremarkable. OTHER FINDINGS: No additional findings or changes since previous study. CT/Brain/Head without Contrast IMPRESSION: Previously described left parieto-occipital hemorrhage is less distinct and more diffuse, indicating normal progression/evolution of intracranial hemorrhage. No new findings or other changes. Electronically Signed: Vicente Lew MD at 14:53 EDT , Service support ,
--- NOTE | 2020-11-05 13:32 | EKG12_ITS ---
Test Reason : Blood Pressure : / mmHG Vent. Rate : 068 BPM Atrial Rate : 068 BPM P-R Int : 192 ms QRS Dur : 094 ms QT Int : 458 ms P-R-T Axes : 021 055 052 degrees QTc Int : 487 ms Normal sinus rhythm Nonspecific ST and T wave abnormality Prolonged QT Abnormal ECG Confirmed by JORDIN DUNCAN, SYBIL ([id number]), film editor NITZA ROJAS ([id number]) on 11/07/2020 9:00:57 AM Referred By: VENTURA Confirmed By:SYBIL BRENNER MD
--- NOTE | 2020-11-05 13:32 | RAD_ITS ---
STUDY: X-RAY CHEST REASON FOR EXAM: Male, 80 years old. weakness TECHNIQUE: Single AP portable view of the chest. COMPARISON: None. FINDINGS: The lungs are clear and expanded. There is no demonstrated pleural abnormality. Normal size heart. Normal mediastinum and lakhwinder. Normal visualized pulmonary arteries. Normal visualized aortic arch and descending thoracic aorta. There are diffuse degenerative changes of the visualized thoracic spine. Normal visualized ribs, clavicles, and shoulders. There is no demonstrated abnormality of the visualized soft tissue structures of the upper abdomen. RAD/Chest 1 View (Portable) IMPRESSION: No definite acute or significant abnormality seen. Electronically Signed: Vicente Lew MD at 14:55 EDT , Service support ,
--- NOTE | 2020-11-05 13:34 | ED.VIS.GEN ---
History of Present Illness Chief Complaint: Dizziness Informant: Patient Narrative: Male presents with altered mental status and generalized weakness. Beginning this month he was diagnosed with a very small subdural and a distal fibular fracture. He was sent to [facility]. States that he has been dealing with a kidney stone since 2 days before the fall that led to the subdural and break. On the 12th of this month he underwent lithotripsy and ureteral stent placement on the left. He states that he has been on an antibiotic but is now finished with that. He states that beginning yesterday he has become progressively more weak needing assistance to get up. He states that he feels confused and people are saying that he is not finishing his thoughts. He states he feels like he was in a brain fog. I spoke with her doctor who recommended he come to ED for evaluation. He is not had any recent fevers. No rashes. No volume loss. Of his biggest complaint is urinary frequency which is keeping him up multiple times per night. 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 Lives: Spouse/ Significant Other Smoking Status: Never smoker Drugs: None - Family History Maternal Family History: Family History (Last Reviewed 10/31/20 @ 13:35 by Nery Russell) Father Diabetes Hypertension Cancer Mother Hypertension CVA (cerebral vascular accident) Sister Diabetes Son Diabetes Family History: Reports: Stroke - His mother had stroke in her 70's. Paternal Family History: Family History (Last Reviewed 10/31/20 @ 13:35 by Nery Russell) Father Diabetes Hypertension Cancer Mother Hypertension CVA (cerebral vascular accident) Sister Diabetes Son Diabetes Family History: Reports: Cancer - Lung Review of Systems General: Reports: Malaise. Denies: Chills, Fever, Sweats Eyes: Denies: Visual changes - bilaterally, Diplopia ENT: Denies: Rhinorrhea, Sore throat Cardiovascular: Denies: Chest pain, Palpitations Respiratory: Denies: Dyspnea, Cough, Dyspnea on exertion Gastrointestinal: Reports: Abdominal pain - Related to kidney stones.. Denies: Nausea, Vomiting, Diarrhea, Melena, Hematochezia Genitourinary: Denies: Dysuria, Hematuria, Frequency Musculoskeletal: Reports: Extremity Pain - Related to right ankle fracture. Denies: Back pain Skin: Denies: Rash, Wounds Neurological: Reports: Weakness - Global weakness. Denies: Headache, Numbness Physical Exam Vital Signs/Narrative: Vital Signs Temp Pulse Resp BP Pulse Ox 11/05/20 13:01 97.3 F L 70 26 H 166/66 H 99 Inital Vital Signs reviewed: Yes General: Well nourished, Well developed, Obese, No Acute Distress Head: Normocephalic, Atraumatic Eyes: Perrl, EOMI ENT: Moist mucous membranes, No rhinorrhea Neck: Supple, Nontender Cardiovascular: Regular rate, Regular rhythm, No murmurs Respiratory: No distress, CTA bilaterally, Chest nontender Abdomen: Soft, Nontender, Nondistended, Normal bowel sounds Back: Nontender, Normal Inspection Extremities: No edema, - - Right foot and ankle in a boot orthosis Skin: Normal color, No rash Neurological: Alert, Oriented x3, Cranial nerves II-XII grossly intact, Normal Strength, Normal Sensation, - - Patient is slow to talk but does appear to finish his thoughts. Psychological: Normal affect, Normal Mood Diagnostic/Tx/Re-eval Clinical Impression(s) from Imaging Studies Brain CT 11/05/20 13:30 IMPRESSION: Previously described left parieto-occipital hemorrhage is less distinct and more diffuse, indicating normal progression/evolution of intracranial hemorrhage. No new findings or other changes. Electronically Signed: Vicente Lew MD at 14:53 EDT , Service support , Laboratory Last Values WBC 8.4 K/mm3 (4.4-11.0) 11/05/20 13:55 RBC 3.90 M/mm3 (4.6-6.2) L 11/05/20 13:55 Hgb 11.5 g/dL (13.0-16.5) L 11/05/20 13:55 Hct 36.2 % (40-54) L 11/05/20 13:55 MCV 92.8 fL (80-94) 11/05/20 13:55 MCH 29.5 pg (27.0-32.0) 11/05/20 13:55 MCHC 31.8 g/dL (32-36) L 11/05/20 13:55 RDW Std Deviation 44.2 fl (35.1-43.9) H 11/05/20 13:55 RDW Coeff of Flavio 13.1 % (11.6-14.6) 11/05/20 13:55 Plt Count 295 K/mm3 (150-450) 11/05/20 13:55 MPV 9.1 fl (6.2-12.0) 11/05/20 13:55 Immature Gran % (Auto) 0.500 % (0.0-0.9) 11/05/20 13:55 Neut % (Auto) 60.3 % (47-70) 11/05/20 13:55 Lymph % (Auto) 24.4 % (19-41) 11/05/20 13:55 Millard % (Auto) 7.6 % (0-10) 11/05/20 13:55 Eos % (Auto) 6.6 % (0-5) H 11/05/20 13:55 Baso % (Auto) 0.6 % (0-1) 11/05/20 13:55 Absolute Neuts (auto) 5.1 X10^3/uL (2.0-7.7) 11/05/20 13:55 Absolute Lymphs (auto) 2.06 X10^3/uL (0.83-4.51) 11/05/20 13:55 Nucleated RBC % 0 % (0-5) 11/05/20 13:55 PT 13.5 SECONDS (11.7-14.9) 11/05/20 13:55 INR 1.1 11/05/20 13:55 APTT 26.4 Seconds (24.1-36.2) 11/05/20 13:55 Sodium 139 mmol/L (136-145) 11/05/20 13:55 Potassium 4.2 mmol/L (3.5-5.1) 11/05/20 13:55 Chloride 105 mmol/L (98-107) 11/05/20 13:55 Carbon Dioxide 26.0 mmol/L (21.0-32.0) 11/05/20 13:55 Anion Gap 8 (5-15) 11/05/20 13:55 BUN 24 mg/dL (7-18) H 11/05/20 13:55 Creatinine 1.22 mg/dL (0.70-1.30) 11/05/20 13:55 Estim Creat Clear Calc 52.12 ml/min 11/05/20 13:55 Est GFR (MDRD) Af Amer 73 mL/min (>60) 11/05/20 13:55 Est GFR (MDRD) Non-Af 61 mL/min (>60) 11/05/20 13:55 BUN/Creatinine Ratio 19.7 RATIO (10-20) 11/05/20 13:55 Glucose 153 mg/dL (74-106) H 11/05/20 13:55 Lactic Acid 2.7 mmol/L (0.4-1.9) H* 11/05/20 13:55 Calcium 8.9 mg/dL (8.5-10.1) 11/05/20 13:55 Total Bilirubin 0.50 mg/dL (0.20-1.00) 11/05/20 13:55 AST 19 U/L (15-37) 11/05/20 13:55 ALT 22 U/L (16-61) 11/05/20 13:55 Alkaline Phosphatase 83 U/L (45-117) 11/05/20 13:55 Troponin I < 0.015 ng/mL (<0.045) 11/05/20 13:55 Total Protein 7.0 g/dL (6.4-8.2) 11/05/20 13:55 Albumin 3.0 g/dL (3.2-5.0) L 11/05/20 13:55 Globulin 4.0 g/dL (2.2-4.2) 11/05/20 13:55 Albumin/Globulin Ratio 0.8 RATIO (0.9-2.4) L 11/05/20 13:55 Lipase 113 U/L (73-393) 11/05/20 13:55 Urine Color Yellow (Yellow) 11/05/20 14:45 Urine Clarity Clear (Clear) 11/05/20 14:45 Urine pH 5.0 (5.0 - 8.0) 11/05/20 14:45 Ur Specific [place] 1.020 (1.002-1.030) 11/05/20 14:45 Urine Protein 100 mg/dl (Negative) H 11/05/20 14:45 Urine Glucose (UA) 50 mg/dl (Normal) H 11/05/20 14:45 Urine Ketones Negative mg/dl (Negative) 11/05/20 14:45 Urine Occult Blood 50 /ul (Negative) H 11/05/20 14:45 Urine Nitrite Negative (Negative) 11/05/20 14:45 Urine Bilirubin Negative mg/dL (Negative) 11/05/20 14:45 Urine Urobilinogen Normal mg/dl (Normal) 11/05/20 14:45 Ur Leukocyte Esterase 25 /ul (Negative) H 11/05/20 14:45 Urine RBC 5-10 SEEN /hpf (0-5) 11/05/20 14:45 Urine WBC 5-10 SEEN /hpf (0-5) 11/05/20 14:45 Ur Squamous Epith Cells 0 SEEN /hpf (0-5) 11/05/20 14:45 Urine Bacteria 0 SEEN /hpf (None Seen) 11/05/20 14:45 Urine Mucus 0 SEEN /hpf (<or=2+) 11/05/20 14:45 - Medical Decision Making My interpretation of the portable chest x-ray is no acute process per radiology concurs. CT of the brain shows regression of the prior subdural. No new bleeds. Basic blood work is rather unremarkable except for lactic acid of 2.7. As he has actually hypertension and no evidence of shock or infection this is most likely due to his Metformin. Urinalysis shows no overt infection either. In the past several weeks he has had a fall which resulted in a broken ankle, subdural hematoma with hospitalization, a kidney stone ED visit, outpatient kidney stone surgery. I do not see anything obvious on his exam or in the labs that would necessarily require an admission. I spoke with him and his and asked if they were able to care for him still at home if he might need a rehab center. The shared decision making is that the patient is going to go home today. He has a appointment with his urologist on Friday. If between now and then he is doing worse confused they have more concerns they can certainly return here talk to their doctor. ED Disposition - Plan for ED Patient: Disposition: Home or Assisted Living Diagnosis: Weakness Instructions: ED Weakness (Uncertain Cause) Referrals: Tosha Shrestha MD [Primary Care Provider] - As soon as possible Mohit Jackson MD [STAFF PHYSICIAN] - Keep Sanchez appointment
[2020-11-05 14:08] LABS: Absolute Lymphocyte Count 2.06 X10^3/uL (0.83-4.51); Absolute Neutrophil Count 5.1 X10^3/uL (2.0-7.7); Basophil# 0.05 X10^3/uL; Basophil% 0.6 % (0-1); Eosinophil# 0.56 X10^3/uL; Eosinophils% 6.6 % (0-5); Hematocrit 36.2 % (40-54); Hemoglobin 11.5 g/dL (13.0-16.5); Lymphocyte # 2.06 X10^3/ul (4.0); Lymphocyte % 24.4 % (19-41); Mean Corp Hgb Conc 31.8 g/dL (32-36); Mean Corpuscular Hgb 29.5 pg (27.0-32.0); Mean Corpuscular Volume 92.8 fL (80-94); Mean Platelet Vol. 9.1 fl (6.2-12.0); Monocyte# 0.64 X10^3/uL; Monocyte% 7.6 % (0-10); NRBC Flagged by Analyzer 0 % (0-5); Neutrophil # 5.09 X10^3/uL (2.7-7.7); Neutrophil % 60.3 % (47-70); Platelet Count 295 K/mm3 (150-450); RBC Distribution Width CV 13.1 % (11.6-14.6); RBC Distribution Width SD 44.2 fl (35.1-43.9); White Blood Count 8.4 K/mm3 (4.4-11.0)
[2020-11-05 14:17] LABS: International Normalized Ratio 1.1; Prothrombin Time (Protime)PT. 13.5 SECONDS (11.7-14.9)
[2020-11-05 14:18] LABS: Partial Thromboplast Time 26.4 Seconds (24.1-36.2)
[2020-11-05 14:28] LABS: ALB/GLOB Ratio 0.8 RATIO (0.9-2.4); AST(SGOT) 19 U/L (15-37); Alanine Aminotransfer ALT/SGPT 22 U/L (16-61); Alkaline Phosphatase 83 U/L (45-117); Anion Gap 8 (5-15); BUN 24 mg/dL (7-18); BUN/Creat Ratio 19.7 RATIO (10-20); Calcium,Total 8.9 mg/dL (8.5-10.1); Chloride 105 mmol/L (98-107); Creatinine, Serum 1.22 mg/dL (0.70-1.30); EST Glomerular Filtration Rate 61 mL/min (>60); Est Glom Filt Rate - Afr Amer 73 mL/min (>60); Estimated Creatinine Clearance 52.12 ml/min; Glucose 153 mg/dL (74-106); Lipase 113 U/L (73-393); Potassium 4.2 mmol/L (3.5-5.1); Sodium Level 139 mmol/L (136-145)
[2020-11-05 14:35] LABS: Lactic Acid 2.7 mmol/L (0.4-1.9)
[2020-11-05 14:50] LABS: Bacteria 0 SEEN /hpf (None Seen); Mucous, Urine 0 SEEN /hpf (<or=2+); Squamous Epithelial Cells - UA 0 SEEN /hpf (0-5)
[2020-11-05 14:51] LABS: Color, Urine Yellow (Yellow); Glucose, Dipstick 50 mg/dl (Normal); Ketone-Dipstick Negative (Negative); Leukocyte Esterase-Dipstick 25 /ul (Negative); Nitrite-Dipstick Negative (Negative); Occult Blood-Urine 50 /ul (Negative); Protein-Dipstick 100 mg/dl (Negative); Urine Bilirubin Dipstick Negative (Negative); Urine Clarity Clear (Clear); Urine Urobilinogen Normal (Normal)
[2020-11-05 14:57] LABS: Red Blood Cells-Urine 5-10 SEEN /hpf (0-5); White Blood Cells 5-10 SEEN /hpf (0-5)
[2020-11-05 15:28] VITALS: BP 157/67; PULSE 70; RESP 22; O2SAT 98
[2020-11-05 18:03] LABS: Reflex Lactate? Y
== END 2020-11-05 15:28 | disposition home or self-care (01) ==
PROVIDERS: Emergency Provider Emergency Medicine; PCP Internal Medicine
DX: R53.1 Weakness (principal); I10 Essential (primary) hypertension; E11.42 Type 2 diabetes mellitus with diabetic polyneuropathy; E78.5 Hyperlipidemia, unspecified; Z79.899 Other long term (current) drug therapy; Z79.84 Long term (current) use of oral hypoglycemic drugs
CPT/HCPCS: 70450; 71045; 80053; 81001; 83605; 83690; 84484; 85025; 85610; 85730; 87040; 93005; 99285; A4216

== ENCOUNTER → 2020-11-07 14:36 | Outpatient (CLI) | payer MEDICARE, BC, SELFPAY ==
[2020-10-19 16:49] VITALS: BMI 36.4
[2020-11-05 13:01] VITALS: BMI 33.9
--- NOTE | 2020-11-07 14:55 | RAD_ITS ---
INDICATION: CALCULUS OF KIDNEY EXAMINATION/TECHNIQUE: X-RAY - XR Abdomen 1 View COMPARISON: CT scan 10/17/2020 FINDINGS: There is a left ureteral stent in grossly satisfactory position There is a 1.3 cm right lower pole renal stone. There is a 1 cm left lower pole renal stone. There is a 6 mm proximal left ureteral stone. These are all grossly stable since previous CT scan. Stable appearance of gallstones. BOWEL GAS PATTERN: Non-obstructive. No bowel or stomach distention. FREE AIR: Not assessed on a single supine view. ORGANOMEGALY: Not seen. LOWER CHEST: No acute pathology. BONES AND SOFT TISSUES: No acute pathology. RAD/Abdomen Single View IMPRESSION: Left ureteral stent is in normal position. Stable bilateral lower pole renal stones. Stable small stone of the proximal left ureter. Electronically Signed: Vicente Lew MD at 17:27 EDT , Service support ,
== END ==
PROVIDERS: PCP Internal Medicine; Referring Provider Urology; Visit Provider Urology
DX: N20.0 Calculus of kidney (principal)
CPT/HCPCS: 74018

== ENCOUNTER 2020-12-06 11:16 | Day surgery (SDC) | payer MEDICARE, BC, SELFPAY ==
[2020-12-05 13:28] VITALS: BMI 33.3
[2020-12-06] VITALS (10 sets, daily range): BP systolic 135–179; BP diastolic 62–73; PULSE 57–73; RESP 16–18; TEMP 35.7–36.8; O2SAT 95–100; BMI 33.3
--- NOTE | 2020-12-06 11:35 | RAD_ITS ---
INDICATION: Preop EXAMINATION/TECHNIQUE: X-RAY - XR Abdomen 1 View COMPARISON: 11/07/2020 FINDINGS: BOWEL GAS PATTERN: Non-obstructive. No bowel or stomach distention. FREE AIR: Not assessed on a single supine view. ORGANOMEGALY: Not seen. CALCIFICATIONS: The proximal left ureteral stone is now in the left renal pelvis. The other bilateral renal stones and gallstones are stable. LOWER CHEST: No acute pathology. BONES AND SOFT TISSUES: No acute pathology. OTHER: Interval migration of left nephroureteral stent with the proximal end now at the ureteropelvic junction. RAD/Abdomen Single View IMPRESSION: Interval migration of left nephroureteral stent with the proximal end now at the ureteropelvic junction. The proximal left ureteral stone is now in the left renal pelvis. The other bilateral renal stones and gallstones are stable. Electronically Signed: Alfredo Perez MD at 21:28 EDT Tel , Service support ,
[2020-12-06] MEDS: Lactated Ringers 1,000 ML 100 ML IV (12:42)
[2020-12-06 12:51] LABS: Bedside Glucose 188 mg/dL (70-110)
[2020-12-06] MEDS: Cefazolin 2 GM in 0.9% Normal Saline 100 ML IV (14:59)
--- NOTE | 2020-12-06 15:04 | HP.PCM_ITS ---
Problem List (1) Urolithiasis Status: Chronic Qualifiers: Urinary calculus location: kidney Qualified Code(s): N20.0 - Calculus of kidney History of Present Illness Date of Admission: 12/06/20 Chief Complaint: Bilateral kidney stones The patient is a 80 year old male with a 7 mm stone in the left kidney and a 7 mm stone in the lower pole the right kidney he has a stent on the left side plan to proceed with shockwave lithotripsy bilateral . 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) E11.42 RLS (restless legs syndrome) (Chronic) MACHELLE (obstructive sleep apnea) (Chronic) G47.33 Anxiety and depression F41.9, F32.9 BMI 34.0-34.9,adult Z68.34 BPH (benign prostatic hyperplasia) BPPV (benign paroxysmal positional vertigo) H81.10 Back pain M54.9 De Quervain's tenosynovitis M65.4 Dermatitis L30.9 Diabetes mellitus E11.9 History of renal calculi Z87.442 Loss of equilibrium R42 Malaise R53.81 Open wound of left lower extremity S81.802A Polypharmacy Z79.899 Fall (Resolved) W19.XXXA Fracture of great toe S92.403A Near syncope R55 Orthostatic hypotension I95.1 Pneumonia J18.9 community acquired 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 Cardiac dysrhythmia (Inactive) I49.9 Dyslipidemia (Inactive) E78.5 Allergies hydrocodone bitartrate [From Vicodin] Allergy (Verified 12/06/20 12:24) Other hydroxyzine Adverse Reaction (Verified 12/06/20 12:24) Other CALLED DIZZINESS Home Medications: Ambulatory Orders Medication Instructions Recorded finasteride 5 mg tablet 5 mg PO DAILY #90 tablet 11/03/18 flecainide 100 mg tablet 100 mg PO Q12H #180 tablet 02/10/20 simvastatin 20 mg tablet 20 mg PO QHS #90 tablet 05/10/20 pramipexole 1 mg tablet 2 mg PO QHS #180 tablet 08/23/20 acetaminophen 325 mg capsule 650 mg PO Q6H PRN PRN 10/31/20 dulaglutide 1.5 mg/0.5 mL 1.5 mg SC QWEEK 90 Days #6.5 ml 11/13/20 subcutaneous pen injector Apremilast [Otezla] 30 mg PO BID 11/22/20 Levomilnacipran HCl [Fetzima] 40 mg PO DAILY 11/22/20 metoprolol succinate 25 mg 75 mg PO BID 90 Days #540 tablet 11/24/20 tablet,extended release 24 hr amlodipine 5 mg tablet 5 mg PO BID #180 tablet 12/05/20 Surgical History: Surgical History (Last Reviewed 12/06/20 @ 15:[address] Mohit Jackson MD) STENT PLACEMENT FOR KIDNEY STONE History of cardioversion Onset Date: 2015 Z98.2012,2014,2015 History of cataract surgery Z98.49 apr 2020 History of left heart catheterization Onset Date: 02/16/13 Z98.890 02/04/2006, 02/16/2013 History of radiofrequency ablation procedure for cardiac arrhythmia Onset Date: 02/05/06 Z98.890 Successful catheter ablation of the AV wesley slow pathway 02/05/2006 History of right knee surgery Z98.890 1979 Status post left foot surgery Z98.890 2009 history of right knee cap fracture 2010, 2011 Surgical History: tonsillectomy, - - R knee Patella repair, ORIF of left foot from accident, cardiac ablations, T+A. Psychiatric History: Anxiety, Depression Lives: Alone Smoking Status: Never smoker Tobacco Use: Non-smoker Alcohol: None Drugs: None - *Family History Maternal Family History: Family History (Last Reviewed 12/05/20 @ 13:23 by Nery Russell) Father Diabetes Hypertension Cancer Mother Hypertension CVA (cerebral vascular accident) Sister Diabetes Son Diabetes History Items: Stroke Paternal Family History: Family History (Last Reviewed 12/05/20 @ 13:23 by Nery Russell) Father Diabetes Hypertension Cancer Mother Hypertension CVA (cerebral vascular accident) Sister Diabetes Son Diabetes History Items: Cancer Review of Systems Constitutional: Denies: Chills, Fever, Weight Change HEENT: Denies: Head Aches, Sinus Congestion, Sinus Drainage Cardiovascular: Denies: Chest Pain, Palpitations Respiratory: Denies: Cough, Shortness of breath at rest, Sputum production Gastrointestinal: Denies: Abdominal Pain, Nausea, Vomiting Genitourinary: Denies: Dysuria Musculoskeletal: Denies: Joint Pain, Joint Tenderness Skin: Denies: Rash, Wounds Neurological: Denies: Numbness, Tingling, Focal weakness Psychiatric: Denies: Anxiety, Depression, Homicidal Ideations, Suicidal Ideations Hematologic/ Lymphatic: Denies: Easy Bruising, Easy Bleeding VTE Information - Inpt Only VTE Present on Admission: No - Physical Exam Vitals/I&O's: Vital Signs Temp Pulse Resp BP Pulse Ox 98.2 F 73 16 156/62 H 98 12/06/20 12:21 12/06/20 12:21 12/06/20 12:21 12/06/20 12:21 12/06/20 12:21 Oxygen Delivery Method Room Air Weight: 111.584 kg Body Mass Index (BMI) 33.3 Finger Stick Blood Glucose 123 General: Alert, Oriented x3, Cooperative HEENT: Atraumatic, PERRLA, EOMI, Normocephalic Neck: Supple, No JVD, Negative Carotid Bruits Lungs: Clear to auscultation, Normal air movement Cardiovascular: Regular rate, No murmurs Abdomen: Bowel Sounds Present, Soft, Non Tender Extremities: No edema, Capillary Refill Less than 3 Seconds Skin: No rashes, No breakdown Musculoskeletal: No Tenderness to Palpation of Joints or Extremities Neurological: Cranial nerves II-XII grossly intact Psych/Mental Status: Normal Affect, Appropriate Laboratory Results 12/06/20 12:05: POC Glucose 188 H Current Medications Lactated Ringer's () 1,000 mls @ 100 mls/hr IV .Q10H ANTONIO Last Admin: 12/06/20 12:42 Dose: 100 mls/hr Documented by: Assessment/Plan All Active Problems (Last Reviewed 12/05/20 @ 13:23 by Nery Russell) Atrial flutter (Resolved) Fall (Resolved) S/P ablation operation for arrhythmia (Resolved) SVT (supraventricular tachycardia) (Resolved) 80-year-old male with bilateral kidney stones plan to proceed with shockwave lithotripsy and stent removal on the left side.
--- NOTE | 2020-12-06 15:11 | PCM.DC.URO ---
Discharge Diet: Light diet - advance as tolerated Discharge Activity: Return to Normal Activity Call your doctor if your incision/area has: Continuous Slow Oozing, Sudden Increased Bleeding, Increased Pain/ Swelling, Increased Redness, Foul Smelling Discharge, Swelling at the incision site Allergies/Adverse Reactions: Allergies hydrocodone bitartrate [From Vicodin] Allergy (Verified 12/06/20 12:24) Other hydroxyzine Adverse Reaction (Verified 12/06/20 12:24) Other CALLED DIZZINESS Medications to take at Discharge finasteride 5 mg tablet 5 mg PO DAILY #90 tablet 11/03/18 flecainide 100 mg tablet 100 mg PO Q12H #180 tablet 02/10/20 simvastatin 20 mg tablet 20 mg PO QHS #90 tablet 05/10/20 pramipexole 1 mg tablet 2 mg PO QHS #180 tablet 08/23/20 acetaminophen 325 mg capsule 650 mg PO Q6H PRN PRN 10/31/20 dulaglutide 1.5 mg/0.5 mL subcutaneous pen injector 1.5 mg SC QWEEK 90 Days #6.5 ml 11/13/20 Apremilast [Otezla] 30 mg PO BID 11/22/20 Levomilnacipran HCl [Fetzima] 40 mg PO DAILY 11/22/20 metoprolol succinate 25 mg tablet,extended release 24 hr 75 mg PO BID 90 Days #540 tablet 11/24/20 amlodipine 5 mg tablet 5 mg PO BID #180 tablet 12/05/20 Ciprofloxacin [Cipro] 500 mg PO BID #10 tab 12/06/20 Oxycodone HCl/Acetaminophen [Percocet 5/325] 1 tablet PO Q4H PRN PRN 7 Days #14 tablet 12/06/20 The following prescriptions were given: Ciprofloxacin [Cipro] 500 mg PO BID #10 tab Transmission Status: Pending to [facility] Oxycodone HCl/Acetaminophen [Percocet 5/325] 1 tablet PO Q4H PRN PRN 7 Days #14 tablet PRN Reason: Pain Transmission Status: Sent to [facility] Orders to be completed after discharge: Abdomen Single View [RAD] Time Frame: 12/06/20, Facility: [facility], Location: [facility] Primary Care Physician: Tosha Shrestha MD [Primary Care Provider] - Test Results: Test results from this visit will be discussed in further detail at your follow-up appointment, if applicable. Please Follow Up With: Mohit Jackson MD When: in 2 weeks, please call to make an appointment.
--- NOTE | 2020-12-06 16:03 | OP.PCM_ITS ---
Problem List (1) Urolithiasis Status: Chronic Qualifiers: Urinary calculus location: kidney Qualified Code(s): N20.0 - Calculus of kidney Report of Operation Date of Procedure: 12/06/20 Pre-Operative Diagnosis: Left kidney stone status post stent, right kidney stone. Post-Operative Diagnosis: Same Surgery/Procedure Performed:: Left extracorporeal shockwave lithotripsy and cystoscopy left stent removal, right extracorporeal shockwave lithotripsy. Description of Surgical Findings:: Patient presents to the hospital for treatment of a kidney stone with shockwave lithotripsy. In the preoperative area and x-ray was done to confirm the location of the stone. The x-ray was reviewed and the stone location was reviewed. In the preoperative setting I spoke with the patient regarding the treatment of the stone how the treatment would be conducted and the expectations after surgery. The patient understands there is a risk of bleeding and infection. Also discussed the very rare risk of hematoma or damage to the kidney. We also discussed the risk that the shockwave machine will fail to break the stone adequately and that the patient may need other surgical procedures. We also discussed the possibility that the patient may need a stent after the procedure. After reviewing the procedure with the patient, the patient is signed the consent form all the patient's questions were addressed and was taken back to the operating room for treatment of a kidney stone. Patient was taken back to the operating room, patient was identified by the nursing staff, we identified the side of the treatment and the patient side of treatment had been marked by my initials. The patient underwent general anesthetic and was placed supine on the lithotripter table. We then used fluoroscopy to identify the stones on the Left side. We then positioned the patient under the lithotripter and we used triangulation technique to identify the location of the stone and then we made sure that the stone was engaged in the F2 focal point of F2 Donier lithoprior machine. Once the patient was positioned appropriately and the stone was identified and placed in the F2 focal point of the lithotripter machine we then proceeded with shockwave lithotripsy. In the beginning the shockwave was delivered at a rate of 120 shocks per minute, we monitor the EKG for any ectopy. The power was slowly increased to 5 kV and subsequently at the 7 kV. We then proceeded with the treatment we move the therapy had around during the treatment to make sure the stone stayed in the F2 focal point during the entire treatment. Once the stone had broken up completely then we stopped the treatment a total of about 3000 shockwaves were delivered to the stone under fluoroscopic guidance. The patient's urethra and genitals were prepped and draped in usual sterile fashion. I went into the bladder with a 21 Lebanese rigid cystourethroscope. I grabbed the stent emanating from the Left ureteral orifice and then gently remove the stent from the bladder. I then drained the patient's bladder. The patient was then repositioned for treatment of the right kidney stones. We then used fluoroscopy to identify the stones on the Right lower pole of the kidney. We then positioned the patient under the lithotripter and we used triangulation technique to identify the location of the stone and then we made sure that the stone was engaged in the F2 focal point of F2 Donier lithoprior machine. Once the patient was positioned appropriately and the stone was identified and placed in the F2 focal point of the lithotripter machine we then proceeded with shockwave lithotripsy. In the beginning the shockwave was delivered at a rate of 120 shocks per minute, we monitor the EKG for any ectopy. The power was slowly increased to 5 kV and subsequently at the 7 kV. We then proceeded with the treatment we move the therapy had around during the treatment to make sure the stone stayed in the F2 focal point during the entire treatment. Once the stone had broken up completely then we stopped the treatment a total of about 3000 shockwaves were delivered to the stone under fluoroscopic guidance. The patient was given instructions to call the office to make an a follow-up appointment. Type of Anesthesia:: General Drains: none - Admit VTE Documentation VTE Present on Admission: No
[2020-12-06] MEDS: Ketorolac 15 MG/ML Vial IV (16:41)
[2020-12-06 17:05] LABS: Bedside Glucose 157 mg/dL (70-110)
--- NOTE | 2020-12-06 17:06 | SUR.PHASEI ---
pt has slow mentation and responses. pt answers appropriate but very slow. neuro checks completed with no deficiencies with exception to speech. Dr. sorto called and advised and came to see pt, no interventions given.
--- NOTE | 2020-12-06 19:25 | SUR.PHASEII ---
PREPARING TO D/C PATIENT HOME POST-OP AFTER ALL CRITERIA MET. ASSISTED PATIENT TO DRESS LOWER HALF AND THEN HE STATED HE COULD FINISH DRESSING HIMSELF, AT BEDSIDE IN WHEELCHAIR. PATIENT CALLED RN BACK TO ROOM TO CHECK MY TEMPERTURE, I'M BURNING UP. FOUND TO BE LAYING IN BED FULLY DRESSED, PALE, TEMPERATURE 96.7, VITALS OTHERWISE STABLE BUT BP NOTED TO BE LOWER THAN PREVIOUS CHECK. DR GOMEZ NOTIFIED AND CAME TO ROOM. PATIENT STATES HE HAS THE SAME EPISODES AT HOME WHERE HE SUDDENLY BECOMES DIZZY, LIGHT-HEADED, HAS Dx VERTIGO; HIS COULD NOT RELATE HOW OFTEN HE HAD EPISODES AT HOME OR WHAT KIND OF SX HE HAS, WAS VERY VAGUE. PATIENT STATES AFTER HE GETS THESE EPISODES, HE IS WIPED OUT AND GOES TO BED FOR HALF THE DAY TO RECOVER. REPORTEDLY FELL IN EARLY NOVEMBER 2020 AFTER BECOMING DIZZY/LIGHT-HEADED, WAS TRANSPORTED TO [facility] AND TRANSFERRED TO [place] WHERE HE WAS FOUND TO HAVE A CONCUSSION, BUT AFTER FURTHER DISCUSSION THE SAID THEY WERE TOLD HE HAD BLEEDING IN HIS BRAIN AND COULD HAVE SOME EFFECTS FROM IT FOR 4 TO 6 WEEKS. THEN COULD NOT CONFIRM HOW OFTEN HE HAD EPISODES AT HOME, WAS VERY VAGUE. PATIENT CALLED THIS RN TO ROOM SEVERAL TIMES WITH VAGUE COMPLAINTS IN ADDITION TO WEAKNESS BUT WAS GIVING PATIENT TIME TO REST. FINGERSTICK GLUCOSE 338. WHEN RETURNING TO ROOM TO CHECK ON PATIENT WHO WAS COMPLAINING HE WAS FEELING HOT AGAIN, NOTED PATIENT STARING TO LEFT, PUPILS DILATED B/L, UNRESPONSIVE TO VERBAL OR PHYSICAL STIMULATION, JERKING MOTIONS TO SHOULDER, ARMS, TORSO WHICH LASTED APPROXIMATELY 20 SECONDS. PATIENT VERY SLOWLY STARTED TO RESPOND. DR GOMEZ CALLED TO ROOM, INSTRUCTED TO TRANSFER TO E.D FOR EVALUATION. AT BEDSIDE AND AWARE. PLACED PATIENT ON TELEMETRY TRANSPORT MONITOR, BP REMAINED STABLES 137/83, HR 80'S, RR 16. SINUS RHYTHM ON MONITOR. CALLED HVAC/R INSTRUCTOR TO UPDATE. TIMOTHY GIL, CALLED E.D. TO NOTIFY AND GIVE BRIEF HX. DR GOMEZ NOTIFIED DR PALOMINO WHO IS AWARE OF TRANSFER TO E.D. AT 2006.
[2020-12-06 20:16] LABS: Bedside Glucose 338 mg/dL (70-110)
== END 2020-12-06 20:07 | disposition short-term general hospital (02) ==
LOC: SDC 11:20 → AC 11:30
PROVIDERS: PCP Internal Medicine; Referring Provider Urology; Visit Provider Urology
PROC: (CPT 50590; principal; 2020-12-06 13:35)
DX: N20.0 Calculus of kidney (principal); R55 Syncope and collapse; I48.92 Unspecified atrial flutter; G47.33 Obstructive sleep apnea (adult) (pediatric); E78.5 Hyperlipidemia, unspecified; E11.42 Type 2 diabetes mellitus with diabetic polyneuropathy; I47.1 Supraventricular tachycardia; I12.9 Hypertensive chronic kidney disease with stage 1 through stage 4 chronic kidney disease, or unspecified chronic kidney disease; N18.31 Chronic kidney disease, stage 3a; G25.81 Restless legs syndrome; I48.0 Paroxysmal atrial fibrillation; N40.0 Benign prostatic hyperplasia without lower urinary tract symptoms; I25.10 Atherosclerotic heart disease of native coronary artery without angina pectoris; Z79.899 Other long term (current) drug therapy; Z79.84 Long term (current) use of oral hypoglycemic drugs; F32.9 Major depressive disorder, single episode, unspecified; F41.9 Anxiety disorder, unspecified; Z86.718 Personal history of other venous thrombosis and embolism; E11.22 Type 2 diabetes mellitus with diabetic chronic kidney disease; E66.9 Obesity, unspecified; Z68.33 Body mass index [BMI] 33.0-33.9, adult; D50.9 Iron deficiency anemia, unspecified; L40.50 Arthropathic psoriasis, unspecified; E83.42 Hypomagnesemia
CPT/HCPCS: 00873; 50590; 52310; 36415; 70450; 70551; 71045; 74018; 80048; 80053; 82962; 83735; 84443; 84484; 85025; 93005; 93306; 95819; 97110; 97162; 97166; 97530; 97535; 97802; 99285; J7030; J7120; A4216; J2405

== ENCOUNTER 2020-12-06 20:12 | Inpatient (IN) | payer MEDICARE, BC, SELFPAY ==
[2020-12-06 12:21] VITALS: BMI 33.3
[2020-12-06 20:12] VITALS: BP 127/58; PULSE 62; RESP 25; TEMP 35.6; O2SAT 96; BMI 35.3
--- NOTE | 2020-12-06 20:27 | EKG12_ITS ---
Test Reason : SYNCOPE Blood Pressure : / mmHG Vent. Rate : 060 BPM Atrial Rate : 060 BPM P-R Int : 206 ms QRS Dur : 092 ms QT Int : 498 ms P-R-T Axes : 016 042 043 degrees QTc Int : 498 ms Normal sinus rhythm Prolonged QT Abnormal ECG Confirmed by AVILA DUNCAN, ALBERTO ([id number]), enamel cracker NITZA ROJAS ([id number]) on 12/08/2020 8:17:45 AM Referred By: ANNA Confirmed By:SCARLETT GRAMAJO MD
--- NOTE | 2020-12-06 20:40 | RAD_ITS ---
STUDY: X-RAY CHEST REASON FOR EXAM: Male, 80 years old. chest pain , syncope episode s/p surgery today. No narcotics given in surgery. TECHNIQUE: Single AP portable view of the chest. COMPARISON: November 05, 2020 FINDINGS: Linear scarring reidentified in the left lower lobe. The remaining lung shah are clear.. There is no demonstrated pleural abnormality. Normal size heart. Normal mediastinum and lakhwinder. Normal visualized pulmonary arteries. There is atherosclerotic calcification of the aortic arch with tortuosity. There are diffuse degenerative changes of the visualized thoracic spine. Normal visualized ribs, clavicles, and shoulders. There is no demonstrated abnormality of the visualized soft tissue structures of the upper abdomen. RAD/Chest 1 View (Portable) IMPRESSION: No visualized acute process. Electronically Signed: Titus Jeffries MD at 21:05 EDT , Service support ,
[2020-12-06 20:41] LABS: Absolute Lymphocyte Count 2.52 X10^3/uL (0.83-4.51); Absolute Neutrophil Count 9.4 X10^3/uL (2.0-7.7); Basophil# 0.07 X10^3/uL; Basophil% 0.5 % (0-1); Eosinophil# 0.24 X10^3/uL; Eosinophils% 1.8 % (0-5); Hematocrit 33.3 % (40-54); Hemoglobin 10.6 g/dL (13.0-16.5); Lymphocyte # 2.52 X10^3/ul (0.83-4.51); Lymphocyte % 18.9 % (19-41); Mean Corp Hgb Conc 31.8 g/dL (32-36); Mean Corpuscular Hgb 29.5 pg (27.0-32.0); Mean Corpuscular Volume 92.8 fL (80-94); Mean Platelet Vol. 9.2 fl (6.2-12.0); Monocyte# 1.05 X10^3/uL; Monocyte% 7.9 % (0-10); NRBC Flagged by Analyzer 0 % (0-5); Neutrophil # 9.37 X10^3/uL (2.7-7.7); Neutrophil % 70.3 % (47-70); Platelet Count 267 K/mm3 (150-450); RBC Distribution Width CV 13.2 % (11.6-14.6); RBC Distribution Width SD 45.3 fl (35.1-43.9); Red Blood Count 3.59 M/mm3 (4.6-6.2); White Blood Count 13.3 K/mm3 (4.4-11.0)
[2020-12-06] MEDS: Aspirin 81 MG TAB.CHEW 324 MG PO (20:41)
[2020-12-06] MEDS: 0.9% Normal Saline 1,000 ML 1000 ML IV (20:41)
[2020-12-06 21:07] LABS: Anion Gap 10 (5-15); BUN 17 mg/dL (7-18); BUN/Creat Ratio 12.2 RATIO (10-20); Calcium,Total 8.5 mg/dL (8.5-10.1); Chloride 101 mmol/L (98-107); Creatinine, Serum 1.39 mg/dL (0.70-1.30); EST Glomerular Filtration Rate 52 mL/min (>60); Est Glom Filt Rate - Afr Amer 63 mL/min (>60); Estimated Creatinine Clearance 45.75 ml/min; Glucose 394 mg/dL (74-106); Sodium Level 137 mmol/L (136-145)
[2020-12-06 21:40] VITALS: BP 160/63; PULSE 64; RESP 13; TEMP 36.4; O2SAT 96
[2020-12-06 23:00] VITALS: BP 145/67; PULSE 67; RESP 14; O2SAT 98
--- NOTE | 2020-12-06 23:58 | HP.PCM_ITS ---
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 Patient reports that he was getting dressed to go home following lithotripsy for a kidney stone when he became lightheaded and shaky. Patient states at this point he laid back on the cot and was told by staff that he had passed out. Patient was then brought to the ER for syncopal work-up. Patient denies chest pain, shortness of breath, nausea, vomiting. Patient reports that he does have a history of vertigo and syncope. 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/2006 Paroxysmal atrial flutter (Chronic) ablation 2005, DCCV 2012,2014,2015 Essential (primary) hypertension (Chronic) HLD (hyperlipidemia) (Chronic) DM type 2 with diabetic peripheral neuropathy (Chronic) RLS (restless legs syndrome) (Chronic) MACHELLE (obstructive sleep apnea) (Chronic) Medical History: Medical History (Last Reviewed 12/07/20 @ 00:49 by JAYE WoodardC) Dizziness (Chronic) R42 Vertigo (Chronic) R42 Anemia (Chronic) D64.9 SVT (supraventricular tachycardia) (Chronic) I47.1 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/2006 Paroxysmal atrial flutter (Chronic) I48.92 ablation 2005, DCCV 2012,2014,2016 Essential (primary) hypertension (Chronic) I10 HLD (hyperlipidemia) (Chronic) E78.5 DM type 2 with diabetic peripheral neuropathy (Chronic) E11.42 RLS (restless legs syndrome) (Chronic) MACHELLE (obstructive sleep apnea) (Chronic) G47.33 Anxiety and depression F41.9, F32.9 BMI 34.0-34.9,adult Z68.34 BPH (benign prostatic hyperplasia) BPPV (benign paroxysmal positional vertigo) H81.10 Back pain M54.9 De Quervain's tenosynovitis M65.4 Dermatitis L30.9 Diabetes mellitus E11.9 History of renal calculi Z87.442 Loss of equilibrium R42 Malaise R53.81 Open wound of left lower extremity S81.802A Polypharmacy Z79.899 Fall (Resolved) W19.XXXA Fracture of great toe S92.403A Near syncope R55 Orthostatic hypotension I95.1 Pneumonia J18.9 community acquired 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 Cardiac dysrhythmia (Inactive) I49.9 Dyslipidemia (Inactive) E78.5 Allergies hydrocodone bitartrate [From Vicodin] Allergy (Verified 12/06/20 20:17) Other hydroxyzine Adverse Reaction (Verified 12/06/20 20:17) Other CALLED DIZZINESS Home Medications: Ambulatory Orders Medication Instructions Recorded finasteride 5 mg tablet 5 mg PO DAILY #90 tablet 11/03/18 flecainide 100 mg tablet 100 mg PO Q12H #180 tablet 02/10/20 simvastatin 20 mg tablet 20 mg PO QHS #90 tablet 05/10/20 pramipexole 1 mg tablet 2 mg PO QHS #180 tablet 08/23/20 dulaglutide 1.5 mg/0.5 mL 1.5 mg SC QWEEK 90 Days #6.5 ml 11/13/20 subcutaneous pen injector Apremilast [Otezla] 30 mg PO BID 11/22/20 Levomilnacipran HCl [Fetzima] 40 mg PO DAILY 11/22/20 metoprolol succinate 25 mg 75 mg PO BID 90 Days #540 tablet 11/24/20 tablet,extended release 24 hr amlodipine 5 mg tablet 5 mg PO BID #180 tablet 12/05/20 Ciprofloxacin [Cipro] 500 mg PO BID #10 tab 12/06/20 Oxycodone HCl/Acetaminophen 1 tablet PO Q4H PRN PRN 7 Days #14 12/06/20 [Percocet 5/325] tab Surgical History: Surgical History (Last Reviewed 12/07/20 @ 00:49 by Gaby Díaz, DATA ANALYTICS ANALYST-C) STENT PLACEMENT FOR KIDNEY STONE History of cardioversion Onset Date: 2015 Z98.890 2012,2014,2015 History of cataract surgery Z98.49 apr 2020 History of left heart catheterization Onset Date: 02/16/13 Z98.890 02/04/2006, 02/16/2013 History of radiofrequency ablation procedure for cardiac arrhythmia Onset Date: 02/05/06 Z98.890 Successful catheter ablation of the AV [place] slow pathway 02/05/2006 History of right knee surgery Z98.890 1979 Status post left foot surgery Z98.890 2008 history of right knee cap fracture 2010, 2011 Surgical History: tonsillectomy, - - R knee Patella repair, ORIF of left foot from accident, cardiac ablations, T+A. Psychiatric History: Anxiety, Depression Smoking Status: Never smoker Alcohol: None Drugs: None - *Family History Maternal Family History: Family History (Last Reviewed 12/05/20 @ 13:23 by Nery Russell) Father Diabetes Hypertension Cancer Mother Hypertension CVA (cerebral vascular accident) Sister Diabetes Son Diabetes History Items: Stroke Paternal Family History: Family History (Last Reviewed 12/05/20 @ 13:23 by Nery Russell) Father Diabetes Hypertension Cancer Mother Hypertension CVA (cerebral vascular accident) Sister Diabetes Son Diabetes History Items: Cancer Review of Systems Constitutional: Denies: Chills, Fever, Weight Change HEENT: Denies: Head Aches, Sinus Congestion, Sinus Drainage Cardiovascular: Reports: Light Headedness, Syncope. Denies: Chest Pain, Palpitations Respiratory: Denies: Cough, Shortness of breath at rest, Sputum production Gastrointestinal: Reports: Abdominal Pain - Left flank, postprocedural. Denies: Nausea, Vomiting Genitourinary: Denies: Dysuria Musculoskeletal: Denies: Joint Pain, Joint Tenderness Skin: Denies: Rash, Wounds Neurological: Denies: Numbness, Tingling, Focal weakness Psychiatric: Denies: Anxiety, Depression, Homicidal Ideations, Suicidal Ideations Hematologic/ Lymphatic: Denies: Easy Bruising, Easy Bleeding VTE Information - Inpt Only VTE Present on Admission: No VTE Mechan Device Prophylaxis: None VTE Pharm Prophylaxis ordered?: No Patient Problems: Active and Suspected Problems (Last Reviewed 12/07/20 @ 00:49 by Gaby Díaz NP-C) Syncope (Acute) Elevated troponin (Acute) Status post laser lithotripsy of ureteral calculus (Acute) - Physical Exam Vitals/I&O's: Vital Signs Temp Pulse Resp BP Pulse Ox 97.5 F L 67 14 145/67 H 98 12/06/20 21:40 12/06/20 23:00 12/06/20 23:00 12/06/20 23:00 12/06/20 23:00 Oxygen Delivery Method Room Air Weight: 260 lb 9.382 oz Body Mass Index (BMI) 35.3 Finger Stick Blood Glucose 123 Intake and Output for Last 24 Hours 12/04/20 12/05/20 12/06/20 23:59 23:59 23:59 Intake Total 1000 / 1000 Balance 1000 / 1000 General: Alert, Oriented x3, Cooperative HEENT: Atraumatic, PERRLA, EOMI, Normocephalic Neck: Supple, No JVD, Negative Carotid Bruits Lungs: Clear to auscultation, Normal air movement, No rhonchi, No wheeze, No rales Cardiovascular: Regular rate, Regular Rhythm, Normal S1, Normal S2, No murmurs Abdomen: Bowel Sounds Present, Soft, Guarding, Tender - Left flank tender with palpation post procedure Extremities: No edema, Capillary Refill Less than 3 Seconds Skin: No rashes, No breakdown Musculoskeletal: No Tenderness to Palpation of Joints or Extremities Neurological: Cranial nerves II-XII grossly intact Psych/Mental Status: Normal Affect, Appropriate Laboratory Results 12/06/20 20:28: WBC 13.3 H, RBC 3.59 L, Hgb 10.6 L, Hct 33.3 L, MCV 92.8, MCH 29.5, MCHC 31.8 L, RDW Std Deviation 45.3 H, RDW Coeff of Flavio 13.2, Plt Count 267, MPV 9.2, Immature Gran % (Auto) 0.600, Neut % (Auto) 70.3 H, Lymph % (Auto) 18.9 L, [place] % (Auto) 7.9, Eos % (Auto) 1.8, Baso % (Auto) 0.5, Absolute Neuts (auto) 9.4 H, Absolute Lymphs (auto) 2.52, Nucleated RBC % 0 12/06/20 20:28: Sodium 137, Potassium 4.0, Chloride 101, Carbon Dioxide 26.0, Anion Gap 10, BUN 17, Creatinine 1.39 H, Estim Creat Clear Calc 45.75, Est GFR (MDRD) Af Amer 63, Est GFR (MDRD) Non-Af 52 L, BUN/Creatinine Ratio 12.2, Glucose 394 H, Calcium 8.5, Troponin I 0.031 12/06/20 23:32: Troponin I 0.096 H Assessment/Plan All Active Problems (Last Reviewed 12/07/20 @ 00:49 by Gaby Díaz, DATA ANALYTICS ANALYST-C) Syncope (Acute) Elevated troponin (Acute) Status post laser lithotripsy of ureteral calculus (Acute) Urolithiasis (Acute) Atrial flutter (Resolved) Fall (Resolved) S/P ablation operation for arrhythmia (Resolved) SVT (supraventricular tachycardia) (Resolved) 1. Syncope -To PCU for continuous cardiac monitoring -Obtain orthostatic vital signs due to syncopal episode -Echo ordered for a.m., last echo 2017 -PT OT to eval and treat -CBC, TSH and CMP in a.m. -Vital signs per protocol, currently stable -Normal saline 100ml/hr x1 bag 2. Elevated troponin -Trend cardiac enzymes due to mildly elevated initial troponin 3. Status post laser lithotripsy of ureteral calculus -Continue ciprofloxacin twice daily and Proscar per Dr. Jackson recommendation 4. Essential hypertension -Continue home regimen of Norvasc, metoprolol. -As needed hydralazine ordered, patient initially hypertensive upon presentation to ER 5. Hyperlipidemia -Continue simvastatin 6. Diabetes mellitus type 2 with diabetic peripheral neuropathy -Continue Otezla -AC at bedtime blood sugars with sliding scale insulin ordered 7. Paroxysmal a flutter -Continue flecainide, metoprolol. 9. Anemia -Stable will trend CBC daily DVT prophylaxis-not indicated due to surgical procedure earlier today This patient was seen by KENRICK Woodard under the supervision of Dr. Garcia.
[2020-12-07] VITALS (14 sets, daily range): BP systolic 137–149; BP diastolic 1–67; PULSE 58–78; RESP 14–18; TEMP 36.4–36.8; O2SAT 95–99; BMI 33.3
--- NOTE | 2020-12-07 00:32 | ED.VIS.CHEST ---
History of Present Illness Chief Complaint: Syncope Narrative: Patient presenting for evaluation secondary to a syncopal episode. Patient had a ureteral stent placed today by urology. Patient was having difficulty with recovering from his anesthesia, and actually was in the PACU from 11 AM till 8:30 PM. When he was getting up and trying to leave from the PACU to be discharged home, patient suffered a syncopal event. Patient reports that he simply was started to feel lightheaded and he has had a history of feeling lightheaded in the past so he just laid himself down on the ground and had a syncopal event. Patient denies currently that he is having any chest pain. He does have some abdominal pain post procedurally. Review of systems otherwise negative. Past Medical History - Allergies and Home Meds Allergies/Adverse Reactions: Allergies hydrocodone bitartrate [From Vicodin] Allergy (Verified 12/06/20 20:17) Other hydroxyzine Adverse Reaction (Verified 12/06/20 20:17) Other CALLED DIZZINESS Prior records reviewed: Yes Past Medical History: - - Diabetes hypertension hyperlipidemia paroxysmal atrial flutter Surgical History: tonsillectomy, - - R knee Patella repair, ORIF of left foot from accident, cardiac ablations, T+A. Lives: Spouse/ Significant Other Smoking Status: Never smoker Alcohol: None Drugs: None - Family History Maternal Family History: Family History (Last Reviewed 12/05/20 @ 13:23 by Nery Russell) Father Diabetes Hypertension Cancer Mother Hypertension CVA (cerebral vascular accident) Sister Diabetes Son Diabetes Family History: Reports: Stroke Paternal Family History: Family History (Last Reviewed 12/05/20 @ 13:23 by Nery Russell) Father Diabetes Hypertension Cancer Mother Hypertension CVA (cerebral vascular accident) Sister Diabetes Son Diabetes Family History: Reports: Cancer Review of Systems All systems negative except as indicated General: Denies: Chills, Fever, Sweats Eyes: Denies: Visual changes - bilaterally, Diplopia ENT: Denies: Rhinorrhea, Sore throat Cardiovascular: Reports: - - Syncope Respiratory: Denies: Dyspnea, Cough, Dyspnea on exertion Gastrointestinal: Reports: Abdominal pain Genitourinary: Denies: Dysuria, Hematuria, Frequency Musculoskeletal: Denies: Back pain, Extremity Pain Skin: Denies: Rash, Wounds Neurological: Denies: Headache, Weakness, Numbness Physical Exam Vital Signs/Narrative: Vital Signs Temp Pulse Resp BP Pulse Ox 12/06/20 23:00 67 14 145/67 H 98 12/06/20 21:40 97.5 F L 64 13 160/63 H 96 Inital Vital Signs reviewed: Yes General: Well nourished, Well developed, No Acute Distress, - - Somewhat pale in appearance Head: Normocephalic, Atraumatic Eyes: Perrl, EOMI ENT: Moist mucous membranes, No rhinorrhea Neck: Supple, Nontender Cardiovascular: Regular rate, Regular rhythm, No murmurs Respiratory: No distress, CTA bilaterally, Chest nontender Abdomen: Soft, Tender - Left lower quadrant, no guarding or rebound Back: Nontender, Normal Inspection Extremities: Nontender, No edema Skin: Normal color, No rash Neurological: Alert, Oriented x3, Cranial nerves II-XII grossly intact, Normal Strength, Normal Sensation Psychological: Normal affect, Normal Mood Diagnostic/Tx/Re-eval Chest X-Ray - ED: 1 View, Read by ED Physician, Normal Clinical Impression(s) from Imaging Studies Chest X-Ray 12/06/20 20:40 IMPRESSION: No visualized acute process. Electronically Signed: Titus Jeffries MD at 21:05 EDT , Service support , Laboratory Data 12/06/20 12/06/20 12/06/20 20:28 20:28 23:32 WBC 13.3 H RBC 3.59 L Hgb 10.6 L Hct 33.3 L MCV 92.8 MCH 29.5 MCHC 31.8 L RDW Std Deviation 45.3 H RDW Coeff of Flavio 13.2 Plt Count 267 MPV 9.2 Immature Gran % (Auto) 0.600 Neut % (Auto) 70.3 H Lymph % (Auto) 18.9 L [place] % (Auto) 7.9 Eos % (Auto) 1.8 Baso % (Auto) 0.5 Absolute Neuts (auto) 9.4 H Absolute Lymphs (auto) 2.52 Nucleated RBC % 0 Sodium 137 Potassium 4.0 Chloride 101 Carbon Dioxide 26.0 Anion Gap 10 BUN 17 Creatinine 1.39 H Estim Creat Clear Calc 45.75 Est GFR (MDRD) Af Amer 63 Est GFR (MDRD) Non-Af 52 L BUN/Creatinine Ratio 12.2 Glucose 394 H Calcium 8.5 Troponin I 0.031 0.096 H - Medical Decision Making Patient presented secondary to a syncopal episode. EKG demonstrated no signs of AV block or ischemic changes, there was mild QTC prolongation at 498. CBC chemistry and initial troponin were found to be negative, although the patient had a recent troponin that was undetectable and today's initial troponin was 0.03 so was concerned for the possibility of upward trending. Patient was kept for a 3-hour delta troponin which ultimately ruled in as being indeterminate at 0.09. Patient was given fluids in the emergency department, he remained stable. At this point I believe the patient does require admission for observation for syncope. Patient will be admitted under the hospitalist. ED Disposition - Plan for ED Patient: Disposition: Acute Care Hospital [facility] Diagnosis: Syncope, Elevated troponin
--- NOTE | 2020-12-07 01:08 | ECHOD_ITS ---
Reason For Study: SYNCOPE (S/P LITHOTRIPSY) Procedure This was a 2D Doppler, Color Flow transthoracic echocardiogram. Exam performed portable in patient room. Left Ventricle Normal LV size. The estimated ejection fraction is 70 %. Stage 2 diastolic dysfunction. No regional wall motion abnormalities noted. Right Ventricle Normal RV size. Normal systolic function. Atria The left atrium is mildly enlarged. Normal right atrium. No doppler evidence for ASD. Mitral Valve There is moderate mitral annular calcification. There is no mitral valve stenosis. No mitral valve insufficiency. Tricuspid Valve There is no tricuspid stenosis. No tricuspid valve insufficiency. Unable to estimate RV systolic pressure due to insufficient tricuspid regurgitant envelope. Aortic Valve There is no aortic stenosis. Mild (1+) aortic valve insufficiency. Pulmonic Valve There is no pulmonic valvular stenosis. Trivial pulmonic valve insufficiency. Great Vessels Normal aortic root. Pericardium/Pleural No pericardial effusion. MMode/2D Measurements & Calculations LVIDd: 4.9 cm IVSd: 1.3 cm LAV(MOD-bp): 89.1 ml LVIDs: 2.5 cm LVPWd: 1.0 cm LAV(MOD-bp) Indexed: 38.4 ml/m2 RVDd: 3.5 cm FS: 48.5 % LAV(MOD-sp2): 66.2 ml LAV(MOD-sp4): 113.1 ml LA dimension(2D): 4.8 cm LA A4 area: 28.3 cm2 RA A4 area: 12.2 cm2 Time Measurements MV dec time: 0.30 sec Doppler Measurements & Calculations MV E max darrius: 92.6 cm/sec Lat Peak E' Darrius: 5.9 cm/sec Med Peak E' Darrius: 5.0 cm/sec MV A max darrius: 129.3 cm/sec E/E' lat: 15.8 E/E' med: 18.6 MV E/A: 0.72 Ao V2 max: 170.7 cm/sec AI max darrius: 424.3 cm/sec LV V1 max: 126.6 cm/sec Ao max P.7 mmHg AI max P.0 mmHg LV V1 max P.4 mmHg AI dec slope: 357.9 cm/sec2 AI P1/2t: 347.2 msec PA V2 max: 104.0 cm/sec ECHO/Echo Complete Interpretation Summary The estimated ejection fraction is 70 %. Stage 2 diastolic dysfunction. The left atrium is mildly enlarged. There is moderate mitral annular calcification. Mild (1+) aortic valve insufficiency. Ordering Physician: Gaby Díaz Referring Physician: Tosha Shrestha Performed By: Maribel Quezada, LINDY, RVT
--- NOTE | 2020-12-07 01:20 | CT_ITS ---
STUDY: CT BRAIN WITHOUT CONTRAST REASON FOR EXAM: Male, 80 years old. Seizure RADIATION DOSAGE (If Supplied By Facility): CTDIvol = ( 44.99 ) mGy, DLP = ( 812.98 ) mGycm TECHNIQUE: Transaxial CT imaging of the brain was performed without administration of intravenous contrast material. Individualized dose optimization techniques were used for this CT. COMPARISON: CT brain noncontrast 11/05/2020. 10/19/2020. FINDINGS: Normal soft tissue structures. Normal calvarium. There is mild cerebral atrophy with widening of the extra-axial spaces and ventricular dilatation. There are areas of decreased attenuation within the white matter tracts of the supratentorial brain, consistent with microvascular disease changes. Faint punctate residual hyperattenuation along the deep left parieto-occipital cortex. Normal basal ganglia and thalami. Normal brainstem. Normal cerebellum. There is no intracranial hemorrhage. There are no findings of an acute ischemic infarction. Normal visualized paranasal sinuses. The bilateral mastoid air cells and ossicles are unopacified. Mild arteriosclerosis of the carotid and vertebral arteries. CT/Brain/Head without Contrast IMPRESSION: Chronic involutional changes of the brain. Faint residual hyperattenuation left parieto-occipital cortex, too small to measure. There is no other acute intracranial pathology. Electronically Signed: Madai Davis MD at 3:12 EDT , Service support ,
[2020-12-07 01:21] LABS: Magnesium 1.4 mg/dL (1.6-2.6)
[2020-12-07] MEDS: 0.9% Saline Lock 10 ML Syringe IV (01:42)
[2020-12-07] MEDS: 0.9% Normal Saline 1,000 ML 100 ML IV (01:42)
[2020-12-07 02:47] LABS: Absolute Lymphocyte Count 1.68 X10^3/uL (0.83-4.51); Absolute Neutrophil Count 7.2 X10^3/uL (2.0-7.7); Basophil# 0.06 X10^3/uL; Basophil% 0.6 % (0-1); Eosinophil# 0.04 X10^3/uL; Eosinophils% 0.4 % (0-5); Hematocrit 29.1 % (40-54); Hemoglobin 9.5 g/dL (13.0-16.5); Lymphocyte # 1.68 X10^3/ul (0.83-4.51); Mean Corp Hgb Conc 32.6 g/dL (32-36); Mean Corpuscular Volume 91.8 fL (80-94); Mean Platelet Vol. 9.5 fl (6.2-12.0); Monocyte# 0.79 X10^3/uL; NRBC Flagged by Analyzer 0 % (0-5); Neutrophil # 7.24 X10^3/uL (2.7-7.7); Neutrophil % 73.5 % (47-70); Platelet Count 219 K/mm3 (150-450); RBC Distribution Width CV 13.3 % (11.6-14.6); RBC Distribution Width SD 45.5 fl (35.1-43.9); Red Blood Count 3.17 M/mm3 (4.6-6.2); White Blood Count 9.9 K/mm3 (4.4-11.0)
[2020-12-07 03:18] LABS: ALB/GLOB Ratio 0.9 RATIO (0.9-2.4); AST(SGOT) 17 U/L (15-37); Alanine Aminotransfer ALT/SGPT 23 U/L (16-61); Albumin, Serum 2.6 g/dL (3.2-5.0); Alkaline Phosphatase 59 U/L (45-117); Anion Gap 9 (5-15); BUN 20 mg/dL (7-18); BUN/Creat Ratio 13.4 RATIO (10-20); Calcium,Total 8.1 mg/dL (8.5-10.1); Chloride 104 mmol/L (98-107); Creatinine, Serum 1.49 mg/dL (0.70-1.30); EST Glomerular Filtration Rate 48 mL/min (>60); Est Glom Filt Rate - Afr Amer 58 mL/min (>60); Estimated Creatinine Clearance 42.68 ml/min; Glucose 316 mg/dL (74-106); Protein, Total 5.6 g/dL (6.4-8.2); Sodium Level 138 mmol/L (136-145); Thyroid Stim Hormone (TSH) 0.52 uIU/mL (0.358-3.74)
--- NOTE | 2020-12-07 05:55 | MRI_ITS ---
STUDY: MRI BRAIN WITHOUT CONTRAST REASON FOR EXAM: Male, 80 years old. New onset seizure TECHNIQUE: Standardized multiplanar fat and water weighted pulse sequences were obtained. COMPARISON: CT head without contrast 12/07/2020. FINDINGS: No diffusion restriction throughout the brain parenchyma. Normal size of the ventricles and extra-axial spaces for the patient''s age. Few tiny white matter T2 FLAIR hyperintensity foci in the left cerebral hemisphere. No mass effects and no midline shift. Normal bilateral basal ganglia. Normal thalami. There is no extra-axial fluid accumulation. Normal flow voids within the major intracranial circulation suggesting patency by spin echo criteria. Normal sella turcica, pituitary gland, infundibular stalk, optic chiasm and hypothalamus. Normal tectal plate and pineal gland. Faint T2 FLAIR hyperintensity across the central pontine tegmentum. Normal midbrain and medulla. Normal cerebellum. Normal basal cisterns. Normal bilateral temporal bones. Normal bilateral internal auditory canals. No demonstrated orbital abnormality, within the constraints of a routine brain study. Normal visualized paranasal sinuses. Normal calvarium and skull base. Normal visualized soft tissue structures. Normal visualized upper cervical spine. MRI/Brain without Contrast IMPRESSION: 1. No MRI evidence of acute or subacute ischemic infarct or intracranial mass. 2. Few tiny chronic white matter ischemic changes in the left cerebral hemisphere and chronic white matter ischemic changes across the central pontine tegmentum. Electronically Signed: Choco Dale MD at 11:39 EDT , Service support ,
[2020-12-07] MEDS: Insulin Lispro 100 UNIT/ML INSULN.PEN SC ×4 (06:52→21:41)
[2020-12-07 07:01] LABS: Bedside Glucose 220 mg/dL (70-110)
--- NOTE | 2020-12-07 07:42 | PN_ITS ---
Patient Problems: Active and Suspected Problems (Last Reviewed 12/07/20 @ 00:49 by Gaby Díaz, NEW AUTOS DELIVERY DRIVER-C) Syncope (Acute) Elevated troponin (Acute) Status post laser lithotripsy of ureteral calculus (Acute) Subjective: 80 yo male s/p ESWL and stent removal post op weak and confused admitted this morning looks well, answered question appropriately oriented to person, place, ect looks normal, no focal signs. - Physical Exam Vitals/I&O's: Vital Signs Temp Pulse Resp BP Pulse Ox 97.9 F 65 16 139/61 H 98 12/07/20 06:05 12/07/20 06:05 12/07/20 06:05 12/07/20 06:05 12/07/20 06:05 Oxygen Delivery Method Room Air Weight: 111.4 kg Body Mass Index (BMI) 33.3 Finger Stick Blood Glucose 123 Orthostatic Vital Signs Start: 12/07/20 02:17 Freq: 0600 Status: Active Protocol: Activity Type Activity Date Activity User E-Sign Co-Sign Detail Recorded Client Recorded Date Recorded By Document 12/07/20 06:00 MY [id number] 12/07/20 06:23 MY 12/07/20 06:00 Orthostatic Vitals Standing -Blood Pressure (90/60-120/80) 140/67 H -Extremity Use Left Arm Sitting -Blood Pressure (90/60-120/80) 145/60 H -Extremity Use Left Arm Lying -Blood Pressure (90/60-120/80) 139/1 H -Extremity Use Left Arm Intake and Output for Last 24 Hours 12/05/20 12/06/20 12/07/20 23:59 23:59 23:59 Intake Total 1000 / 1000 120 / 120 Output Total 0 / 0 Balance 1000 / 1000 120 / 120 General: Alert, Oriented x3, Cooperative HEENT: Atraumatic, PERRLA, EOMI, Normocephalic Neck: Supple, No JVD, Negative Carotid Bruits Lungs: Clear to auscultation, Normal air movement Cardiovascular: Regular rate, No murmurs Abdomen: Bowel Sounds Present, Soft, Non Tender Extremities: No edema, Capillary Refill Less than 3 Seconds Skin: No rashes, No breakdown Musculoskeletal: No Tenderness to Palpation of Joints or Extremities Neurological: Cranial nerves II-XII grossly intact Psych/Mental Status: Normal Affect, Appropriate Laboratory Results 12/06/20 20:28: WBC 13.3 H, RBC 3.59 L, Hgb 10.6 L, Hct 33.3 L, MCV 92.8, MCH 29.5, MCHC 31.8 L, RDW Std Deviation 45.3 H, RDW Coeff of Flavio 13.2, Plt Count 267, MPV 9.2, Immature Gran % (Auto) 0.600, Neut % (Auto) 70.3 H, Lymph % (Auto) 18.9 L, [place] % (Auto) 7.9, Eos % (Auto) 1.8, Baso % (Auto) 0.5, Absolute Neuts (auto) 9.4 H, Absolute Lymphs (auto) 2.52, Nucleated RBC % 0 12/06/20 20:28: Sodium 137, Potassium 4.0, Chloride 101, Carbon Dioxide 26.0, Anion Gap 10, BUN 17, Creatinine 1.39 H, Estim Creat Clear Calc 45.75, Est GFR (MDRD) Af Amer 63, Est GFR (MDRD) Non-Af 52 L, BUN/Creatinine Ratio 12.2, Glucose 394 H, Calcium 8.5, Troponin I 0.031 12/06/20 23:32: Troponin I 0.096 H 12/07/20 02:39: WBC 9.9, RBC 3.17 L, Hgb 9.5 L, Hct 29.1 L, MCV 91.8, MCH 30.0, MCHC 32.6, RDW Std Deviation 45.5 H, RDW Coeff of Flavio 13.3, Plt Count 219, MPV 9.5, Immature Gran % (Auto) 0.500, Neut % (Auto) 73.5 H, Lymph % (Auto) 17.0 L, [place] % (Auto) 8.0, Eos % (Auto) 0.4, Baso % (Auto) 0.6, Absolute Neuts (auto) 7.2, Absolute Lymphs (auto) 1.68, Nucleated RBC % 0 12/07/20 02:39: Sodium 138, Potassium 4.0, Chloride 104, Carbon Dioxide 25.0, Anion Gap 9, BUN 20 H, Creatinine 1.49 H, Estim Creat Clear Calc 42.68, Est GFR (MDRD) Af Amer 58 L, Est GFR (MDRD) Non-Af 48 L, BUN/Creatinine Ratio 13.4, Glucose 316 H, Calcium 8.1 L, Total Bilirubin 0.40, AST 17, ALT 23, Alkaline Phosphatase 59, Total Protein 5.6 L, Albumin 2.6 L, Globulin 3.0, Albumin/Globulin Ratio 0.9, TSH 0.52 12/07/20 02:39: Troponin I 0.076 H 12/07/20 06:49: POC Glucose 220 H 12/07/20 : Magnesium 1.4 L Current Medications Acetaminophen (Acetaminophen 325 Mg Tablet) 650 mg PO Q6H PRN PRN PRN Reason: Pain Score 1-10/Temp > 100.7 F Albuterol Sulfate (Albuterol 2.5 Mg/3 Ml Vial.Neb.) 2.5 mg INHALATION Q2H PRN PRN PRN Reason: Dyspnea, wheezing Amlodipine Besylate (Amlodipine 5 Mg Tablet) 5 mg PO BID [facility] Atorvastatin Calcium (Atorvastatin Calcium 10 Mg Tablet) 10 mg PO QHS [facility] Ciprofloxacin HCl (Ciprofloxacin 500 Mg Tablet) 500 mg PO BID [facility] Finasteride (Finasteride 5 Mg Tablet) 5 mg PO DAILY [facility] Flecainide Acetate (Flecainide 100 Mg Tablet) 100 mg PO Q12 [facility] Hydralazine HCl (Hydralazine 20 Mg/Ml Vial) 10 mg IV Q4H PRN PRN PRN Reason: SBP > 160 Sodium Chloride () 1,000 mls @ 100 mls/hr IV .Q10H [facility] Stop: 12/07/20 11:07 Last Admin: 12/07/20 01:42 Dose: 100 mls/hr Documented by: Insulin Human Lispro (Insulin Lispro 100 Unit/Ml Insuln.Pen) 0 unit SC [facility]; Protocol Last Admin: 12/07/20 06:52 Dose: 2 units Documented by: Lorazepam (Lorazepam 2 Mg/Ml Syringe) 1 mg IV PRN PRN PRN Reason: seizure activity Melatonin (Melatonin 3 Mg Tablet) 3 mg PO QHS PRN PRN PRN Reason: INSOMNIA Metoprolol Succinate (Metoprolol(Xl)Succ 25 Mg Tablet) 75 mg PO BID [facility] Non-Formulary Medication (Apremilast) 30 mg PO BID [facility] Non-Formulary Medication (Levomilnacipran Hcl) 40 mg PO DAILY [facility] Ondansetron HCl (Ondansetron 4 Mg/2 Ml Vial) 4 mg IV Q8H PRN PRN PRN Reason: NAUSEA/VOMITING Oxycodone HCl (Oxycodone 5 Mg Tablet) 5 mg PO Q4H PRN PRN PRN Reason: Pain Score 1-10 Pramipexole Dihydrochloride (Pramipexole Di-Hcl 1 Mg Tablet) 2 mg PO QHS [facility] Sodium Chloride (0.9% Saline Lock 10 Ml Syringe) 10 - 40 ml IV UD PRN PRN Reason: SALINE FLUSH Last Admin: 12/07/20 01:42 Dose: 10 ml Documented by: Medical Necessity - Tobacco Use Smoking Status: Never smoker Assessment/Plan All Active Problems (Last Reviewed 12/07/20 @ 00:49 by Gaby Díaz NEW AUTOS DELIVERY DRIVER-C) Syncope (Acute) Elevated troponin (Acute) Status post laser lithotripsy of ureteral calculus (Acute) Urolithiasis (Acute) Atrial flutter (Resolved) Fall (Resolved) S/P ablation operation for arrhythmia (Resolved) SVT (supraventricular tachycardia) (Resolved) He can follow up with me in a few weeks with a KUB after discharge.
[2020-12-07] MEDS: Ciprofloxacin 500 MG Tablet PO ×2 (09:40→21:41)
[2020-12-07] MEDS: Finasteride 5 MG Tablet PO (09:40)
[2020-12-07] MEDS: Flecainide 100 MG Tablet PO ×2 (09:40→21:41)
[2020-12-07] MEDS: Metoprolol(XL)Succ 25 MG Tablet 75 MG PO ×2 (09:40→21:40)
[2020-12-07] MEDS: amLODIPine 5 MG Tablet PO ×2 (09:40→21:41)
[2020-12-07 11:50] LABS: Bedside Glucose 272 mg/dL (70-110)
--- NOTE | 2020-12-07 12:12 | TELEMED_ITS ---
[facility] Tele[facility] has confirmed receipt of a request for visit. This document confirms receipt of the order initiating the consult. To find the results of the consultation, please view the patient's reports for the scanned Telemed Consult.
--- NOTE | 2020-12-07 12:45 | PN_ITS ---
<Bhavya Farfan TRAFFIC RATE COMPUTER - Last Filed: 12/07/20 13:13> Patient Problems: Active and Suspected Problems (Last Reviewed 12/07/20 @ 00:49 by Gaby gagnon NP-C) Syncope (Acute) Elevated troponin (Acute) Status post laser lithotripsy of ureteral calculus (Acute) Subjective: Patient seen and examined. No further episodes of syncope or seizure-like activity. Denies current symptoms or complaints. - Physical Exam Vitals/I&O's: Vital Signs Temp Pulse Resp BP Pulse Ox 97.6 F L 71 18 138/49 H 96 12/07/20 09:40 12/07/20 09:40 12/07/20 09:40 12/07/20 09:40 12/07/20 09:40 Oxygen Delivery Method Room Air Weight: 245 lb 9.519 oz Body Mass Index (BMI) 33.3 Finger Stick Blood Glucose 123 Orthostatic Vital Signs Start: 12/07/20 02:17 Freq: 0600 Status: Active Protocol: Activity Type Activity Date Activity User E-Sign Co-Sign Detail Recorded Client Recorded Date Recorded By Document 12/07/20 06:00 MY [id number] 12/07/20 06:23 MY 12/07/20 06:00 Orthostatic Vitals Standing -Blood Pressure (90/60-120/80) 140/67 H -Extremity Use Left Arm Sitting -Blood Pressure (90/60-120/80) 145/60 H -Extremity Use Left Arm Lying -Blood Pressure (90/60-120/80) 139/1 H -Extremity Use Left Arm Intake and Output for Last 24 Hours 12/05/20 12/06/20 12/07/20 23:59 23:59 23:59 Intake Total 1000 / 1000 1326.67 / 1326.67 Output Total 0 / 0 Balance 1000 / 1000 1326.67 / 1326.67 General: Alert, Oriented x3, Cooperative HEENT: Atraumatic, PERRLA, EOMI, Normocephalic Neck: Supple, No JVD, Negative Carotid Bruits Lungs: Clear to auscultation, Normal air movement Cardiovascular: Regular rate, No murmurs Abdomen: Bowel Sounds Present, Soft, Non Tender, Non-Distended Extremities: No clubbing, No cyanosis, No edema, Capillary Refill Less than 3 Seconds Skin: No rashes, No breakdown Musculoskeletal: No Tenderness to Palpation of Joints or Extremities Neurological: Cranial nerves II-XII grossly intact, Neuro grossly intact Psych/Mental Status: Normal Affect, Appropriate Laboratory Results 12/06/20 20:28: WBC 13.3 H, RBC 3.59 L, Hgb 10.6 L, Hct 33.3 L, MCV 92.8, MCH 29.5, MCHC 31.8 L, RDW Std Deviation 45.3 H, RDW Coeff of Flavio 13.2, Plt Count 267, MPV 9.2, Immature Gran % (Auto) 0.600, Neut % (Auto) 70.3 H, Lymph % (Auto) 18.9 L, [place] % (Auto) 7.9, Eos % (Auto) 1.8, Baso % (Auto) 0.5, Absolute Neuts (auto) 9.4 H, Absolute Lymphs (auto) 2.52, Nucleated RBC % 0 12/06/20 20:28: Sodium 137, Potassium 4.0, Chloride 101, Carbon Dioxide 26.0, Anion Gap 10, BUN 17, Creatinine 1.39 H, Estim Creat Clear Calc 45.75, Est GFR (MDRD) Af Amer 63, Est GFR (MDRD) Non-Af 52 L, BUN/Creatinine Ratio 12.2, Glucose 394 H, Calcium 8.5, Troponin I 0.031 12/06/20 23:32: Troponin I 0.096 H 12/07/20 02:39: WBC 9.9, RBC 3.17 L, Hgb 9.5 L, Hct 29.1 L, MCV 91.8, MCH 30.0, MCHC 32.6, RDW Std Deviation 45.5 H, RDW Coeff of Flavio 13.3, Plt Count 219, MPV 9.5, Immature Gran % (Auto) 0.500, Neut % (Auto) 73.5 H, Lymph % (Auto) 17.0 L, [place] % (Auto) 8.0, Eos % (Auto) 0.4, Baso % (Auto) 0.6, Absolute Neuts (auto) 7.2, Absolute Lymphs (auto) 1.68, Nucleated RBC % 0 12/07/20 02:39: Sodium 138, Potassium 4.0, Chloride 104, Carbon Dioxide 25.0, Anion Gap 9, BUN 20 H, Creatinine 1.49 H, Estim Creat Clear Calc 42.68, Est GFR (MDRD) Af Amer 58 L, Est GFR (MDRD) Non-Af 48 L, BUN/Creatinine Ratio 13.4, Glucose 316 H, Calcium 8.1 L, Total Bilirubin 0.40, AST 17, ALT 23, Alkaline Phosphatase 59, Total Protein 5.6 L, Albumin 2.6 L, Globulin 3.0, Albumin/Globulin Ratio 0.9, TSH 0.52 12/07/20 02:39: Troponin I 0.076 H 12/07/20 06:49: POC Glucose 220 H 12/07/20 11:34: POC Glucose 272 H 12/07/20 : Magnesium 1.4 L Current Medications Acetaminophen (Acetaminophen 325 Mg Tablet) 650 mg PO Q6H PRN PRN PRN Reason: Pain Score 1-10/Temp > 100.7 F Albuterol Sulfate (Albuterol 2.5 Mg/3 Ml Vial.Neb.) 2.5 mg INHALATION Q2H PRN PRN PRN Reason: Dyspnea, wheezing Amlodipine Besylate (Amlodipine 5 Mg Tablet) 5 mg PO BID [facility] Last Admin: 12/07/20 09:40 Dose: 5 mg Documented by: Atorvastatin Calcium (Atorvastatin Calcium 10 Mg Tablet) 10 mg PO QHS [facility] Ciprofloxacin HCl (Ciprofloxacin 500 Mg Tablet) 500 mg PO BID [facility] Last Admin: 12/07/20 09:40 Dose: 500 mg Documented by: Finasteride (Finasteride 5 Mg Tablet) 5 mg PO DAILY [facility] Last Admin: 12/07/20 09:40 Dose: 5 mg Documented by: Flecainide Acetate (Flecainide 100 Mg Tablet) 100 mg PO Q12 [facility] Last Admin: 12/07/20 09:40 Dose: 100 mg Documented by: Hydralazine HCl (Hydralazine 20 Mg/Ml Vial) 10 mg IV Q4H PRN PRN PRN Reason: SBP > 160 Insulin Human Lispro (Insulin Lispro 100 Unit/Ml Insuln.Pen) 0 unit SC [facility]; Protocol Last Admin: 12/07/20 11:35 Dose: 4 units Documented by: Lorazepam (Lorazepam 2 Mg/Ml Syringe) 1 mg IV PRN PRN PRN Reason: seizure activity Melatonin (Melatonin 3 Mg Tablet) 3 mg PO QHS PRN PRN PRN Reason: INSOMNIA Metoprolol Succinate (Metoprolol(Xl)Succ 25 Mg Tablet) 75 mg PO BID [facility] Last Admin: 12/07/20 09:40 Dose: 75 mg Documented by: Non-Formulary Medication (Levomilnacipran Hcl) 40 mg PO DAILY [facility] Ondansetron HCl (Ondansetron 4 Mg/2 Ml Vial) 4 mg IV Q8H PRN PRN PRN Reason: NAUSEA/VOMITING Oxycodone HCl (Oxycodone 5 Mg Tablet) 5 mg PO Q4H PRN PRN PRN Reason: Pain Score 1-10 Pramipexole Dihydrochloride (Pramipexole Di-Hcl 1 Mg Tablet) 2 mg PO QHS [facility] Sodium Chloride (0.9% Saline Lock 10 Ml Syringe) 10 - 40 ml IV UD PRN PRN Reason: SALINE FLUSH Last Admin: 12/07/20 01:42 Dose: 10 ml Documented by: Medical Necessity - Tobacco Use Smoking Status: Never smoker Assessment/Plan All Active Problems (Last Reviewed 12/07/20 @ 00:49 by Gaby Díaz, TRAFFIC RATE COMPUTER-C) Syncope (Acute) Elevated troponin (Acute) Status post laser lithotripsy of ureteral calculus (Acute) Urolithiasis (Acute) Atrial flutter (Resolved) Fall (Resolved) S/P ablation operation for arrhythmia (Resolved) SVT (supraventricular tachycardia) (Resolved) 1. Questionable syncope versus seizure-MRI negative for acute infarct. EEG pending. Echocardiogram demonstrates an EF of 70%, stage II diastolic dysfunction, mild aortic valve insufficiency. Await EEG results. Per discussion with patient and patient's , story does not appear consistent with seizure. PT/OT. Disposition pending further results. 2. Indeterminate troponin-no acute EKG changes. Enzymes trended down. Suspect demand ischemia. Echocardiogram demonstrates an EF of 70%, stage II diastolic dysfunction, mild aortic valve insufficiency. 3. Left lithotripsy and cystoscopy with left stent removal and right lithotripsy 12/06/2020- Dr. Jackson following. Continue outpatient follow up. 4. History of CAD-on statin, metoprolol. 5. Hypertension-on amlodipine, metoprolol. 6. Hyperlipidemia- continue statin. 7. Type 2 diabetes [id number]-[id number] with sliding scale insulin. 8. Iron deficiency anemia-stable. 9. Paroxysmal atrial fibrillation-on metoprolol, flecainide. 10. Anxiety/depression- on Fetzima. 11. MACHELLE-continue home Pap regimen. 12. Restless leg syndrome-on Mirapex. 13. BPH-on finasteride. 14. Psoriatic arthritis-on apremilast. 15. Chronic kidney disease stage IIIa-appears at baseline. DVT prophylaxis- SCDs, pharmacologic prophylaxis on hold due to recent urology procedure This patient was seen by KENRICK Johnson under the supervision of Dr. Evelin rodriguez. <Yogesh Scott - Last Filed: 12/07/20 16:53> Objective: Seen and examined. Patient has history of dementia and cannot give exact history related to the e vent. As per the , he sometimes confused, blank look and amnestic episodes. He is only lay down and closes his eyes or sleep. Yesterday in recovery room after ESBL, patient had blurry vision, dizzy, diaphoretic and then passed out. Per he did not had any seizure-like movement, urine or bowel incontinence or tongue bite. General: Alert, Oriented x3, Cooperative HEENT: Atraumatic, PERRLA, EOMI, Normocephalic Oral: No Gingival or Mucosal Lesions/ Ulcerations Neck: Supple, No JVD, Negative Carotid Bruits Lungs: Air entry diminished in bilateral lung bases. No crepitation/rhonchi Cardiovascular: Regular rate, Regular Rhythm, Normal S1, Normal S2, ejection systolic murmur right second ICS in left lower border Abdomen: Bowel Sounds Present, Soft, Non Tender, Non-Distended : No renal angle tenderness. No suprapubic tenderness. Extremities: Mild ankle edema, Capillary Refill Less than 3 Seconds Skin: No rashes, No breakdown Musculoskeletal: No Tenderness to Palpation of Joints or Extremities Neurological: Cranial nerves II-XII grossly intact, Deep Tendon Reflexes 2+/4 and Symmetrical, Neuro grossly intact Psych/Mental Status: No dementia, forgetfulness - Physical Exam Vitals/I&O's: Vital Signs Temp Pulse Resp BP Pulse Ox 97.7 F L 70 18 138/53 H 97 12/07/20 15:30 12/07/20 15:30 12/07/20 15:30 12/07/20 15:30 12/07/20 15:30 Oxygen Delivery Method Room Air Weight: 245 lb 9.519 oz Body Mass Index (BMI) 33.3 Finger Stick Blood Glucose 123 Orthostatic Vital Signs Start: 12/07/20 02:17 Freq: 0600 Status: Active Protocol: Activity Type Activity Date Activity User E-Sign Co-Sign Detail Recorded Client Recorded Date Recorded By Document 12/07/20 06:00 MY [id number] 12/07/20 06:23 MY 12/07/20 06:00 Orthostatic Vitals Standing -Blood Pressure (90/60-120/80) 140/67 H -Extremity Use Left Arm Sitting -Blood Pressure (90/60-120/80) 145/60 H -Extremity Use Left Arm Lying -Blood Pressure (90/60-120/80) 139/1 H -Extremity Use Left Arm Intake and Output for Last 24 Hours 12/05/20 12/06/20 12/07/20 23:59 23:59 23:59 Intake Total 1000 / 1000 1584.00 / 1584.00 Output Total 0 / 0 Balance 1000 / 1000 1584.00 / 1584.00 Laboratory Results 12/06/20 20:28: WBC 13.3 H, RBC 3.59 L, Hgb 10.6 L, Hct 33.3 L, MCV 92.8, MCH 29.5, MCHC 31.8 L, RDW Std Deviation 45.3 H, RDW Coeff of Flavio 13.2, Plt Count 267, MPV 9.2, Immature Gran % (Auto) 0.600, Neut % (Auto) 70.3 H, Lymph % (Auto) 18.9 L, [place] % (Auto) 7.9, Eos % (Auto) 1.8, Baso % (Auto) 0.5, Absolute Neuts (auto) 9.4 H, Absolute Lymphs (auto) 2.52, Nucleated RBC % 0 12/06/20 20:28: Sodium 137, Potassium 4.0, Chloride 101, Carbon Dioxide 26.0, Anion Gap 10, BUN 17, Creatinine 1.39 H, Estim Creat Clear Calc 45.75, Est GFR (MDRD) Af Amer 63, Est GFR (MDRD) Non-Af 52 L, BUN/Creatinine Ratio 12.2, Glucose 394 H, Calcium 8.5, Troponin I 0.031 12/06/20 23:32: Troponin I 0.096 H 12/07/20 02:39: WBC 9.9, RBC 3.17 L, Hgb 9.5 L, Hct 29.1 L, MCV 91.8, MCH 30.0, MCHC 32.6, RDW Std Deviation 45.5 H, RDW Coeff of Flavio 13.3, Plt Count 219, MPV 9.5, Immature Gran % (Auto) 0.500, Neut % (Auto) 73.5 H, Lymph % (Auto) 17.0 L, [place] % (Auto) 8.0, Eos % (Auto) 0.4, Baso % (Auto) 0.6, Absolute Neuts (auto) 7.2, Absolute Lymphs (auto) 1.68, Nucleated RBC % 0 12/07/20 02:39: Sodium 138, Potassium 4.0, Chloride 104, Carbon Dioxide 25.0, Anion Gap 9, BUN 20 H, Creatinine 1.49 H, Estim Creat Clear Calc 42.68, Est GFR (MDRD) Af Amer 58 L, Est GFR (MDRD) Non-Af 48 L, BUN/Creatinine Ratio 13.4, Glucose 316 H, Calcium 8.1 L, Total Bilirubin 0.40, AST 17, ALT 23, Alkaline Phosphatase 59, Total Protein 5.6 L, Albumin 2.6 L, Globulin 3.0, Albumin/Globulin Ratio 0.9, TSH 0.52 12/07/20 02:39: Troponin I 0.076 H 12/07/20 06:49: POC Glucose 220 H 12/07/20 11:34: POC Glucose 272 H 12/07/20 : Magnesium 1.4 L Current Medications Acetaminophen (Acetaminophen 325 Mg Tablet) 650 mg PO Q6H PRN PRN PRN Reason: Pain Score 1-10/Temp > 100.7 F Albuterol Sulfate (Albuterol 2.5 Mg/3 Ml Vial.Neb.) 2.5 mg INHALATION Q2H PRN PRN PRN Reason: Dyspnea, wheezing Amlodipine Besylate (Amlodipine 5 Mg Tablet) 5 mg PO BID [facility] Last Admin: 12/07/20 09:40 Dose: 5 mg Documented by: Atorvastatin Calcium (Atorvastatin Calcium 10 Mg Tablet) 10 mg PO QHS [facility] Ciprofloxacin HCl (Ciprofloxacin 500 Mg Tablet) 500 mg PO BID [facility] Last Admin: 12/07/20 09:40 Dose: 500 mg Documented by: Finasteride (Finasteride 5 Mg Tablet) 5 mg PO DAILY [facility] Last Admin: 12/07/20 09:40 Dose: 5 mg Documented by: Flecainide Acetate (Flecainide 100 Mg Tablet) 100 mg PO Q12 [facility] Last Admin: 12/07/20 09:40 Dose: 100 mg Documented by: Hydralazine HCl (Hydralazine 20 Mg/Ml Vial) 10 mg IV Q4H PRN PRN PRN Reason: SBP > 160 Insulin Human Lispro (Insulin Lispro 100 Unit/Ml Insuln.Pen) 0 unit SC [facility]; Protocol Last Admin: 12/07/20 16:38 Dose: 4 units Documented by: Lorazepam (Lorazepam 2 Mg/Ml Syringe) 1 mg IV PRN PRN PRN Reason: seizure activity Melatonin (Melatonin 3 Mg Tablet) 3 mg PO QHS PRN PRN PRN Reason: INSOMNIA Metoprolol Succinate (Metoprolol(Xl)Succ 25 Mg Tablet) 75 mg PO BID [facility] Last Admin: 12/07/20 09:40 Dose: 75 mg Documented by: Non-Formulary Medication (Levomilnacipran Hcl) 40 mg PO DAILY [facility] Ondansetron HCl (Ondansetron 4 Mg/2 Ml Vial) 4 mg IV Q8H PRN PRN PRN Reason: NAUSEA/VOMITING Oxycodone HCl (Oxycodone 5 Mg Tablet) 5 mg PO Q4H PRN PRN PRN Reason: Pain Score 1-10 Pramipexole Dihydrochloride (Pramipexole Di-Hcl 1 Mg Tablet) 2 mg PO QHS [facility] Sodium Chloride (0.9% Saline Lock 10 Ml Syringe) 10 - 40 ml IV UD PRN PRN Reason: SALINE FLUSH Last Admin: 12/07/20 01:42 Dose: 10 ml Documented by: Assessment/Plan This patient was seen in conjunction with TRAFFIC RATE COMPUTERBhavya. I have independently interviewed and examined the patient and reviewed pertinent history, examination findings, laboratory and plan of management. I have reviewed the note and agree with the documented findings with the few additional points. In brief, patient is admitted for questionable syncope or seizure with postictal phase. MRI negative for acute infarct. EEG pending. Echo EF 70% with mild aortic valve insufficiency. Patient does not have prior history of epilepsy/seizure disorder. Patient has hypomagnesemia and magnesium was replaced. Mildly elevated troponins probably demand ischemia as patient denies any chest pain or pressure or shortness of breath. No acute ischemic changes in EKG. Other comorbidities mentioned above I have discussed my assessment with TRAFFIC RATE COMPUTERBhavya and orders have been reviewed. Laboratory Results 12/06/20 20:28: WBC 13.3 H, RBC 3.59 L, Hgb 10.6 L, Hct 33.3 L, MCV 92.8, MCH 29.5, MCHC 31.8 L, RDW Std Deviation 45.3 H, RDW Coeff of Flavio 13.2, Plt Count 267, MPV 9.2, Immature Gran % (Auto) 0.600, Neut % (Auto) 70.3 H, Lymph % (Auto) 18.9 L, [place] % (Auto) 7.9, Eos % (Auto) 1.8, Baso % (Auto) 0.5, Absolute Neuts (auto) 9.4 H, Absolute Lymphs (auto) 2.52, Nucleated RBC % 0 12/06/20 20:28: Sodium 137, Potassium 4.0, Chloride 101, Carbon Dioxide 26.0, Anion Gap 10, BUN 17, Creatinine 1.39 H, Estim Creat Clear Calc 45.75, Est GFR (MDRD) Af Amer 63, Est GFR (MDRD) Non-Af 52 L, BUN/Creatinine Ratio 12.2, Glucose 394 H, Calcium 8.5, Troponin I 0.031 12/06/20 23:32: Troponin I 0.096 H 12/07/20 02:39: WBC 9.9, RBC 3.17 L, Hgb 9.5 L, Hct 29.1 L, MCV 91.8, MCH 30.0, MCHC 32.6, RDW Std Deviation 45.5 H, RDW Coeff of Flavio 13.3, Plt Count 219, MPV 9.5, Immature Gran % (Auto) 0.500, Neut % (Auto) 73.5 H, Lymph % (Auto) 17.0 L, [place] % (Auto) 8.0, Eos % (Auto) 0.4, Baso % (Auto) 0.6, Absolute Neuts (auto) 7.2, Absolute Lymphs (auto) 1.68, Nucleated RBC % 0 12/07/20 02:39: Sodium 138, Potassium 4.0, Chloride 104, Carbon Dioxide 25.0, Anion Gap 9, BUN 20 H, Creatinine 1.49 H, Estim Creat Clear Calc 42.68, Est GFR (MDRD) Af Amer 58 L, Est GFR (MDRD) Non-Af 48 L, BUN/Creatinine Ratio 13.4, Glucose 316 H, Calcium 8.1 L, Total Bilirubin 0.40, AST 17, ALT 23, Alkaline Phosphatase 59, Total Protein 5.6 L, Albumin 2.6 L, Globulin 3.0, Albumin/Globulin Ratio 0.9, TSH 0.52 12/07/20 02:39: Troponin I 0.076 H 12/07/20 06:49: POC Glucose 220 H 12/07/20 11:34: POC Glucose 272 H 12/07/20 : Magnesium 1.4 L OBSV E&M: [id number] Initial observation care L2
[2020-12-07 17:06] LABS: Bedside Glucose 273 mg/dL (70-110)
[2020-12-07] MEDS: Pramipexole Di-HCl 1 MG Tablet 2 MG PO (21:41)
[2020-12-07] MEDS: Atorvastatin Calcium 10 MG Tablet PO (21:41)
[2020-12-07] MEDS: BENZOCAINE/MENTHOL 1 LOZENGE MUCOUS MEM (21:47)
[2020-12-07 22:36] LABS: Bedside Glucose 272 mg/dL (70-110)
[2020-12-08] VITALS (7 sets, daily range): BP systolic 130–158; BP diastolic 51–68; PULSE 66–72; RESP 16–18; TEMP 36.4–36.6; O2SAT 97–100
[2020-12-08] MEDS: Insulin Lispro 100 UNIT/ML INSULN.PEN SC ×2 (06:33→12:10)
[2020-12-08 06:46] LABS: Bedside Glucose 272 mg/dL (70-110)
[2020-12-08] MEDS: Metoprolol(XL)Succ 25 MG Tablet 75 MG PO (09:20)
[2020-12-08] MEDS: Ciprofloxacin 500 MG Tablet PO (09:20)
[2020-12-08] MEDS: amLODIPine 5 MG Tablet PO (09:20)
[2020-12-08] MEDS: Flecainide 100 MG Tablet PO (09:20)
[2020-12-08] MEDS: Finasteride 5 MG Tablet PO (09:21)
[2020-12-08 09:51] LABS: Magnesium 1.9 mg/dL (1.6-2.6)
--- NOTE | 2020-12-08 10:45 | CASEMGMT ---
RN JESSICA Face to Face with patient for initial transition planning/care coordination assessment. RN CM introduced self and role at [facility]. Patient sitting in chair, alert and oriented. Patient willing to participate in assessment and is able to answer all questions appropriately. Care providers, pharmacy, and demographics verified. Patient wishes to discharge home, will resumption of HHC wiht [facility]. Patient states he has no further needs or concerns at this time. CM to follow for discharge planning needs that may arise. PCP: [facility] Specialists: Sue, flosser; Manuel, urologist, Nayan, hardwood floor layer; Brian, hand almond blancher Preferred Pharmacy: [facility] Insurance: [employer] Prescription Benefit: yes Living Will/HPOA: yes, Coby Ji LNOK: , daughter Living Arrangements: Patient lives with in condo with 2 steps and 2 grab bars to enter the home. Patient states he is independent at home. Transportation: , patient provide with information regarding hospital van DME/HHC: Patient states he has shower chair, raised toilet, grab bars, walker, rollator, and bipap at home. Patient states he is currently active with [facility] for penitentiary and PT/OT. Disposition Plan: Patient to discharge home with resumption of HHC, family support, and follow-up plans in place. Diandra BALDWIN, RN, CM
--- NOTE | 2020-12-08 11:01 | DCINST_ITS ---
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) MACHELLE (obstructive sleep apnea) (Chronic) You will use the following diet at home:: Calorie/Carbohydrate Controlled (specify 1200, 1400, etc), Cardiac Discharge Activity: Return to Normal Activity Call your doctor if you observe: Shortness of breath, Dizziness, Fainting spells, Chest pain Allergies/Adverse Reactions: Allergies hydrocodone bitartrate [From Vicodin] Allergy (Verified 12/06/20 20:17) Other hydroxyzine Adverse Reaction (Verified 12/06/20 20:17) Other CALLED DIZZINESS Medications to take at Discharge finasteride 5 mg tablet 5 mg PO DAILY #90 tablet 11/03/18 flecainide 100 mg tablet 100 mg PO Q12H #180 tablet 02/10/20 simvastatin 20 mg tablet 20 mg PO QHS #90 tablet 05/10/20 pramipexole 1 mg tablet 2 mg PO QHS #180 tablet 08/23/20 dulaglutide 1.5 mg/0.5 mL subcutaneous pen injector 1.5 mg SC QWEEK 90 Days #6.5 ml 11/13/20 Apremilast [Otezla] 30 mg PO BID 11/22/20 Levomilnacipran HCl [Fetzima] 40 mg PO DAILY 11/22/20 metoprolol succinate 25 mg tablet,extended release 24 hr 75 mg PO BID 90 Days #540 tablet 11/24/20 amlodipine 5 mg tablet 5 mg PO BID #180 tablet 12/05/20 Ciprofloxacin [Cipro] 500 mg PO BID #10 tab 12/06/20 Oxycodone HCl/Acetaminophen [Percocet 5-325] 1 tablet PO Q4H PRN PRN 7 Days #14 tab 12/06/20 Primary Care Physician: Tosha Shrestha MD [Primary Care Provider] - Please follow up with your Primary Care Physician in: 1 Week Test Results: Test results from this visit will be discussed in further detail at your follow- up appointment, if applicable. Please Follow Up With: Ronnie Dyer NP, RECREATION MANAGER-C When: 03/07/21 as scheduled Please Follow Up With: Mohit Jackson MD When: 2 Weeks Proposed Discharge Date: 12/08/20
--- NOTE | 2020-12-08 11:08 | PCM.DC.SUM ---
<Bhavya Farfan NP - Last Filed: 12/08/20 11:17> Discharge Date and Diagnosis - Problem List Patient Problems: Active and Suspected Problems (Last Reviewed 12/07/20 @ 00:49 by Gaby Díaz NP-Jerrell) Syncope (Acute) Elevated troponin (Acute) Status post laser lithotripsy of ureteral calculus (Acute) Date of Admission: 12/06/20 Date of Discharge: 12/08/20 - Primary Discharge Diagnosis Acute Problems: Active Problems (Last Reviewed 12/07/20 @ 00:49 by Gaby Díaz NP-Jerrell) 1. Postoperative near syncope 2. Indeterminate troponin 3. Left lithotripsy and cystoscopy with left stent removal and right lithotripsy 12/06/2020 4. History of CAD 5. Hypertension 6. Hyperlipidemia 7. Type 2 diabetes mellitus 8. Iron deficiency anemia 9. Paroxysmal atrial fibrillation 10. Anxiety/depression 11. MACHELLE 12. Restless leg syndrome 13. BPH 14. Psoriatic arthritis 15. 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 Electronically Signed: Titus Jeffries MD at 21:05 EDT , Service support , Echocardiogram 12/07/20 01:08 Interpretation Summary The estimated ejection fraction is 70 %. Stage 2 diastolic dysfunction. The left atrium is mildly enlarged. There is moderate mitral annular calcification. Mild (1+) aortic valve insufficiency. Ordering Physician: Gaby Díaz Referring Physician: Tosha Shrestha Performed By: Maribel Quezada, SANDRACS, RVT Brain CT 12/07/20 01:20 IMPRESSION: Chronic involutional changes of the brain. Faint residual hyperattenuation left parieto-occipital cortex, too small to measure. There is no other acute intracranial pathology. Electronically Signed: Madai Davis MD at 3:12 EDT , Service support , Brain MRI 12/07/20 05:55 IMPRESSION: 1. No MRI evidence of acute or subacute ischemic infarct or intracranial mass. 2. Few tiny chronic white matter ischemic changes in the left cerebral hemisphere and chronic white matter ischemic changes across the central pontine tegmentum. Electronically Signed: Choco Dale MD at 11:39 EDT , Service support , SOC neurology Dr. Jackson Operations: None Procedures: 2-D Echocardiogram, Electroencephalogram Summary of Care Provided: The patient is a 80 year old M admitted 12/06/2020 due to syncope. 1. Questionable syncope versus seizure-seizure ruled out. MRI negative for acute infarct. Echocardiogram demonstrates an EF of 70%, stage II diastolic dysfunction, mild aortic valve insufficiency. SOC neurology consulted, neurology also does not feel consistent with seizure and antiepileptic regimen not recommended. Suspect near syncope related to anesthesia as it occurred immediately postoperatively. He has not had recurrence of symptoms, denies lightheadedness/dizziness. Follow-up with PCP in 1 week. 2. Indeterminate troponin-no acute EKG changes. Enzymes trended down. Suspect demand ischemia. Echocardiogram demonstrates an EF of 70%, stage II diastolic dysfunction, mild aortic valve insufficiency. 3. Left lithotripsy and cystoscopy with left stent removal and right lithotripsy 12/06/2020- Dr. Jackson following. Follow-up with urology in 2 weeks. 4. History of CAD-on statin, metoprolol. 5. Hypertension-on amlodipine, metoprolol. 6. Hyperlipidemia- continue statin. 7. Type 2 diabetes mellitus-continue home regimen. 8. Iron deficiency anemia-stable. 9. Paroxysmal atrial fibrillation-on metoprolol, flecainide. 10. Anxiety/depression- on Fetzima. 11. MACHELLE-continue home Pap regimen. 12. Restless leg syndrome-on Mirapex. 13. BPH-on finasteride. 14. Psoriatic arthritis-on apremilast. 15. Chronic kidney disease stage IIIa-appears at baseline. General: Alert, Oriented x3, Cooperative HEENT: Atraumatic, PERRLA, EOMI, Normocephalic Neck: Supple, No JVD, Negative Carotid Bruits Lungs: Clear to auscultation, Normal air movement Cardiovascular: Regular rate, No murmurs Abdomen: Bowel Sounds Present, Soft, Non Tender, Non-Distended Extremities: No clubbing, No cyanosis, No edema, Capillary Refill Less than 3 Seconds Skin: No rashes, No breakdown Musculoskeletal: No Tenderness to Palpation of Joints or Extremities Neurological: Cranial nerves II-XII grossly intact, Neuro grossly intact Psych/Mental Status: Normal Affect, Appropriate Patient seen and examined prior to discharge. Physical assessment as noted above. Patient is stable for discharge with follow up recommendations as noted above. This patient was seen by KENRICK Johnson under the supervision of Dr. Scott. Patient Problems: Active and Suspected Problems (Last Reviewed 12/07/20 @ 00:49 by KENRICK Woodard) Syncope (Acute) Elevated troponin (Acute) Status post laser lithotripsy of ureteral calculus (Acute) - Physical Exam Vitals/I&O's: Vital Signs Temp Pulse Resp BP Pulse Ox 97.8 F 66 16 141/51 H 100 12/08/20 09:30 12/08/20 09:30 12/08/20 09:30 12/08/20 09:30 12/08/20 09:30 Oxygen Delivery Method Room Air Weight: 245 lb 9.519 oz Body Mass Index (BMI) 33.3 Finger Stick Blood Glucose 123 Orthostatic Vital Signs Start: 12/07/20 02:17 Freq: 0600 Status: Active Protocol: Activity Type Activity Date Activity User E-Sign Co-Sign Detail Recorded Client Recorded Date Recorded By Document 12/08/20 06:00 MY [id number] 12/08/20 06:10 MY 12/08/20 06:00 Orthostatic Vitals Standing -Blood Pressure (90/60-120/80) 145/65 H -Extremity Use Left Arm Sitting -Blood Pressure (90/60-120/80) 148/68 H -Extremity Use Left Arm Lying -Blood Pressure (90/60-120/80) 130/54 H -Extremity Use Left Arm Intake and Output for Last 24 Hours 12/06/20 12/07/20 12/08/20 23:59 23:59 23:59 Intake Total 1000 / 1000 1944.00 / 2064.00 180 / 180 Output Total 0 / 0 Balance 1000 / 1000 1944.00 / 2063.00 180 / 180 Laboratory Results 12/07/20 11:34: POC Glucose 272 H 12/07/20 16:37: POC Glucose 273 H 12/07/20 21:40: POC Glucose 272 H 12/08/20 06:31: POC Glucose 272 H 12/08/20 09:31: Magnesium 1.9 Current Medications Acetaminophen (Acetaminophen 325 Mg Tablet) 650 mg PO Q6H PRN PRN PRN Reason: Pain Score 1-10/Temp > 100.7 F Albuterol Sulfate (Albuterol 2.5 Mg/3 Ml Vial.Neb.) 2.5 mg INHALATION Q2H PRN PRN PRN Reason: Dyspnea, wheezing Amlodipine Besylate (Amlodipine 5 Mg Tablet) 5 mg PO BID [facility] Last Admin: 12/08/20 09:20 Dose: 5 mg Documented by: Atorvastatin Calcium (Atorvastatin Calcium 10 Mg Tablet) 10 mg PO QHS [facility] Last Admin: 12/07/20 21:41 Dose: 10 mg Documented by: Ciprofloxacin HCl (Ciprofloxacin 500 Mg Tablet) 500 mg PO BID [facility] Last Admin: 12/08/20 09:20 Dose: 500 mg Documented by: Finasteride (Finasteride 5 Mg Tablet) 5 mg PO DAILY [facility] Last Admin: 12/08/20 09:21 Dose: 5 mg Documented by: Flecainide Acetate (Flecainide 100 Mg Tablet) 100 mg PO Q12 [facility] Last Admin: 12/08/20 09:20 Dose: 100 mg Documented by: Hydralazine HCl (Hydralazine 20 Mg/Ml Vial) 10 mg IV Q4H PRN PRN PRN Reason: SBP > 160 Insulin Human Lispro (Insulin Lispro 100 Unit/Ml Insuln.Pen) 0 unit SC [facility]; Protocol Last Admin: 12/08/20 06:33 Dose: 4 units Documented by: Lorazepam (Lorazepam 2 Mg/Ml Syringe) 1 mg IV PRN PRN PRN Reason: seizure activity Melatonin (Melatonin 3 Mg Tablet) 3 mg PO QHS PRN PRN PRN Reason: INSOMNIA Metoprolol Succinate (Metoprolol(Xl)Succ 25 Mg Tablet) 75 mg PO BID [facility] Last Admin: 12/08/20 09:20 Dose: 75 mg Documented by: Non-Formulary Medication (Levomilnacipran Hcl) 40 mg PO DAILY [facility] Last Admin: 12/08/20 09:21 Dose: 40 mg Documented by: Ondansetron HCl (Ondansetron 4 Mg/2 Ml Vial) 4 mg IV Q8H PRN PRN PRN Reason: NAUSEA/VOMITING Oxycodone HCl (Oxycodone 5 Mg Tablet) 5 mg PO Q4H PRN PRN PRN Reason: Pain Score 1-10 Pramipexole Dihydrochloride (Pramipexole Di-Hcl 1 Mg Tablet) 2 mg PO QHS [facility] Last Admin: 12/07/20 21:41 Dose: 2 mg Documented by: Sodium Chloride (0.9% Saline Lock 10 Ml Syringe) 10 - 40 ml IV UD PRN PRN Reason: SALINE FLUSH Last Admin: 12/07/20 01:42 Dose: 10 ml Documented by: Throat Lozenges (Benzocaine/Menthol 1 Lozenge) 1 lozenge MUCOUS MEM Q2H PRN PRN PRN Reason: sore throat/tickling Last Admin: 12/07/20 21:47 Dose: 1 lozenge Documented by: Discharge Diet: Low fat/ Low Cholesterol, Carb Control Diet Discharge Activity: Return to Normal Activity Call your doctor if you observe: Shortness of breath, Dizziness, Fainting spells, Chest pain Home Medications: Medications to take at Discharge finasteride 5 mg tablet 5 mg PO DAILY #90 tablet 11/03/18 flecainide 100 mg tablet 100 mg PO Q12H #180 tablet 02/10/20 simvastatin 20 mg tablet 20 mg PO QHS #90 tablet 05/10/20 pramipexole 1 mg tablet 2 mg PO QHS #180 tablet 08/23/20 dulaglutide 1.5 mg/0.5 mL subcutaneous pen injector 1.5 mg SC QWEEK 90 Days #6.5 ml 11/13/20 Apremilast [Otezla] 30 mg PO BID 11/22/20 Levomilnacipran HCl [Fetzima] 40 mg PO DAILY 11/22/20 metoprolol succinate 25 mg tablet,extended release 24 hr 75 mg PO BID 90 Days #540 tablet 11/24/20 amlodipine 5 mg tablet 5 mg PO BID #180 tablet 12/05/20 Ciprofloxacin [Cipro] 500 mg PO BID #10 tab 12/06/20 Oxycodone HCl/Acetaminophen [Percocet 5-325] 1 tablet PO Q4H PRN PRN 7 Days #14 tab 12/06/20 Primary Care Physician: Tosha Shrestha MD [Primary Care Provider] - Please follow up with your Primary Care Physician in: 1 Week Please Follow Up With: Ronnie Dyer NP, DIRECTOR OF PRODUCT DEVELOPMENT-C When: 03/07/21 as scheduled Please Follow Up With: Mohit Jackson MD When: 2 Weeks Disposition: Home Minutes spent on discharge:: 35 Patient Condition:: Stable Medical Necessity - Tobacco Use Smoking Status: Never smoker Meaningful Use Info Meaningful Use Diagnoses (Choose all that apply): None applicable <Yogesh Scott - Last Filed: 12/08/20 12:38> Discharge Date and Diagnosis - Primary Discharge Diagnosis Acute Problems: Active Problems (Last Reviewed 12/07/20 @ 00:49 by Gaby Díaz NP-C) Syncope (Acute) Elevated troponin (Acute) Status post laser lithotripsy of ureteral calculus (Acute) - Secondary Discharge Diagnosis Chronic Problems: Chronic Problems (Last Reviewed 12/07/20 @ 00:49 by Gaby Díaz NP-C) Dizziness (Chronic) Vertigo (Chronic) Fatigue (Chronic) Anemia (Chronic) SVT (supraventricular tachycardia) (Chronic) 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 I have independently interviewed and examined the patient and reviewed pertinent history, examination findings, laboratory and plan of management. I have reviewed the note and agree with the documented findings with the few additional points. In brief, patient is admitted for questionable syncope or seizure with abnormal jerking movements of shoulders, arms and torso, lasting for 20 seconds and then postictal phase. MRI negative for acute infarct. Echo EF 70% with mild aortic valve insufficiency. Patient does not have prior history of epilepsy/seizure disorder. Patient has hypomagnesemia and magnesium was replaced. Mildly elevated troponins probably demand ischemia as patient denies any chest pain or pressure or shortness of breath. No acute ischemic changes in EKG. patient was seen by telemetry neurologist and felt that presentation was not consistent with seizure disorder therefore antiepileptic medication not recommended. It seems patient has syncope most probably secondary to anesthetic medications. Patient had left ureteric calculus for which he had lithotripsy and removal of his stent. Other comorbidities mentioned above I have discussed my assessment with Bhavya ROCHA and orders have been reviewed.[] Clinical Impression(s) from Imaging Studies Chest X-Ray 12/06/20 20:40 IMPRESSION: No visualized acute process. Electronically Signed: Titus Jeffries MD at 21:05 EDT , Service support , Echocardiogram 12/07/20 01:08 Interpretation Summary The estimated ejection fraction is 70 %. Stage 2 diastolic dysfunction. The left atrium is mildly enlarged. There is moderate mitral annular calcification. Mild (1+) aortic valve insufficiency. Brain CT 12/07/20 01:20 IMPRESSION: Chronic involutional changes of the brain. Faint residual hyperattenuation left parieto-occipital cortex, too small to measure. There is no other acute intracranial pathology. Brain MRI 12/07/20 05:55 IMPRESSION: 1. No MRI evidence of acute or subacute ischemic infarct or intracranial mass. 2. Few tiny chronic white matter ischemic changes in the left cerebral hemisphere and chronic white matter ischemic changes across the central pontine tegmentum. Objective: Patient denies any dizziness, lightheadedness or chest pressure on standing up. Patient has been walking and going to bathroom. Patient also has advanced dementia. 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 General: Alert, Oriented x3, Cooperative HEENT: Atraumatic, PERRLA, EOMI, Normocephalic Oral: No Gingival or Mucosal Lesions/ Ulcerations Neck: Supple, No JVD, Negative Carotid Bruits Lungs: Air entry diminished in bilateral lung bases. No crepitation/rhonchi Cardiovascular: Regular rate, Regular Rhythm, Normal S1, Normal S2, ejection systolic murmur right second ICS in left lower border Abdomen: Bowel Sounds Present, Soft, Non Tender, Non-Distended : No renal angle tenderness. No suprapubic tenderness. Extremities: Mild ankle edema, Capillary Refill Less than 3 Seconds Skin: No rashes, No breakdown Musculoskeletal: No Tenderness to Palpation of Joints or Extremities Neurological: Cranial nerves II-XII grossly intact, Deep Tendon Reflexes 2+/4 and Symmetrical, Neuro grossly intact Psych/Mental Status: No dementia, forgetfulness - Physical Exam Vitals/I&O's: Vital Signs Temp Pulse Resp BP Pulse Ox 97.8 F 66 16 141/51 H 100 12/08/20 09:30 12/08/20 09:30 12/08/20 09:30 12/08/20 09:30 12/08/20 09:30 Oxygen Delivery Method Room Air Weight: 245 lb 9.519 oz Body Mass Index (BMI) 33.3 Finger Stick Blood Glucose 123 Orthostatic Vital Signs Start: 12/07/20 02:17 Freq: 0600 Status: Active Protocol: Activity Type Activity Date Activity User E-Sign Co-Sign Detail Recorded Client Recorded Date Recorded By Document 12/08/20 06:00 MY [id number] 12/08/20 06:10 MY 12/08/20 06:00 Orthostatic Vitals Standing -Blood Pressure (90/60-120/80) 145/65 H -Extremity Use Left Arm Sitting -Blood Pressure (90/60-120/80) 148/68 H -Extremity Use Left Arm Lying -Blood Pressure (90/60-120/80) 130/54 H -Extremity Use Left Arm Intake and Output for Last 24 Hours 12/06/20 12/07/20 12/08/20 23:59 23:59 23:59 Intake Total 1000 / 1000 1944.00 / 4.00 180 / 180 Output Total 0 / 0 Balance 1000 / 1000 1944.00 / 4.00 180 / 180 Laboratory Results 12/07/20 16:37: POC Glucose 273 H 12/07/20 21:40: POC Glucose 272 H 12/08/20 06:31: POC Glucose 272 H 12/08/20 09:31: Magnesium 1.9 Current Medications Acetaminophen (Acetaminophen 325 Mg Tablet) 650 mg PO Q6H PRN PRN PRN Reason: Pain Score 1-10/Temp > 100.7 F Albuterol Sulfate (Albuterol 2.5 Mg/3 Ml Vial.Neb.) 2.5 mg INHALATION Q2H PRN PRN PRN Reason: Dyspnea, wheezing Amlodipine Besylate (Amlodipine 5 Mg Tablet) 5 mg PO BID [facility] Last Admin: 12/08/20 09:20 Dose: 5 mg Documented by: Atorvastatin Calcium (Atorvastatin Calcium 10 Mg Tablet) 10 mg PO QHS [facility] Last Admin: 12/07/20 21:41 Dose: 10 mg Documented by: Ciprofloxacin HCl (Ciprofloxacin 500 Mg Tablet) 500 mg PO BID [facility] Last Admin: 12/08/20 09:20 Dose: 500 mg Documented by: Finasteride (Finasteride 5 Mg Tablet) 5 mg PO DAILY [facility] Last Admin: 12/08/20 09:21 Dose: 5 mg Documented by: Flecainide Acetate (Flecainide 100 Mg Tablet) 100 mg PO Q12 [facility] Last Admin: 12/08/20 09:20 Dose: 100 mg Documented by: Hydralazine HCl (Hydralazine 20 Mg/Ml Vial) 10 mg IV Q4H PRN PRN PRN Reason: SBP > 160 Insulin Human Lispro (Insulin Lispro 100 Unit/Ml Insuln.Pen) 0 unit SC [facility]; Protocol Last Admin: 12/08/20 06:33 Dose: 4 units Documented by: Lorazepam (Lorazepam 2 Mg/Ml Syringe) 1 mg IV PRN PRN PRN Reason: seizure activity Melatonin (Melatonin 3 Mg Tablet) 3 mg PO QHS PRN PRN PRN Reason: INSOMNIA Metoprolol Succinate (Metoprolol(Xl)Succ 25 Mg Tablet) 75 mg PO BID [facility] Last Admin: 12/08/20 09:20 Dose: 75 mg Documented by: Non-Formulary Medication (Levomilnacipran Hcl) 40 mg PO DAILY [facility] Last Admin: 12/08/20 09:21 Dose: 40 mg Documented by: Ondansetron HCl (Ondansetron 4 Mg/2 Ml Vial) 4 mg IV Q8H PRN PRN PRN Reason: NAUSEA/VOMITING Oxycodone HCl (Oxycodone 5 Mg Tablet) 5 mg PO Q4H PRN PRN PRN Reason: Pain Score 1-10 Pramipexole Dihydrochloride (Pramipexole Di-Hcl 1 Mg Tablet) 2 mg PO QHS [facility] Last Admin: 12/07/20 21:41 Dose: 2 mg Documented by: Sodium Chloride (0.9% Saline Lock 10 Ml Syringe) 10 - 40 ml IV UD PRN PRN Reason: SALINE FLUSH Last Admin: 12/07/20 01:42 Dose: 10 ml Documented by: Throat Lozenges (Benzocaine/Menthol 1 Lozenge) 1 lozenge MUCOUS MEM Q2H PRN PRN PRN Reason: sore throat/tickling Last Admin: 12/07/20 21:47 Dose: 1 lozenge Documented by: Inpatient E&M: [id number] Disch Hosp
--- NOTE | 2020-12-08 11:14 | PHA.DC.MR ---
Pharmacy Service has performed discharge medication reconciliation for this patient. The patient's discharge medication list was reviewed for discrepancies and discrepancies were resolved. Home Medications finasteride 5 mg tablet 5 mg PO DAILY #90 tablet 11/03/18 flecainide 100 mg tablet 100 mg PO Q12H #180 tablet 02/10/20 simvastatin 20 mg tablet 20 mg PO QHS #90 tablet 05/10/20 pramipexole 1 mg tablet 2 mg PO QHS #180 tablet 08/23/20 dulaglutide 1.5 mg/0.5 mL subcutaneous pen injector 1.5 mg SC QWEEK 90 Days #6.5 ml 11/13/20 Apremilast [Otezla] 30 mg PO BID 11/22/20 Levomilnacipran HCl [Fetzima] 40 mg PO DAILY 11/22/20 metoprolol succinate 25 mg tablet,extended release 24 hr 75 mg PO BID 90 Days #540 tablet 11/24/20 amlodipine 5 mg tablet 5 mg PO BID #180 tablet 12/05/20 Ciprofloxacin [Cipro] 500 mg PO BID #10 tab 12/06/20 Oxycodone HCl/Acetaminophen [Percocet 5-325] 1 tablet PO Q4H PRN PRN 7 Days #14 tab 12/06/20
--- NOTE | 2020-12-08 11:15 | CASEMGMT ---
Pt is active with [facility] for SN, PT/OT and MAITE order placed. H&P, MAITE order, and d/c instructions faxed to [facility] and call to [facility] to notify of discharge today, voice understanding. D/C summary to be faxed once obtained. Tino AGUIRRE CM
[2020-12-08 12:15] LABS: Bedside Glucose 270 mg/dL (70-110)
--- NOTE | 2020-12-11 15:15 | CASEMGMT ---
TIMOTHY LOPEZ Discharge F/U Phone Call LACE: 13 Strata: 3 Discharge date: 12/08/20 Call date: 12/11/20 Call time: [id number] Admission dx: Syncope, indeterminate troponin Pt states has been 'tired/weak' since discharge. Pt states no questions regarding discharge instructions/medications. Pt states [facility] was out today and his sugar was [phone] and they have a call out to Dr. Shrestha's office regarding same. Pt is scheduled to see Dr. Shrestha on friday and plans to keep. Pt states no suggestions for [facility]. Pt voices no further questions/concerns/needs. [place] TIMOTHY LOPEZ
== END 2020-12-08 13:15 | disposition home health service (06) | DRG 982 ==
LOC: ED 12-07 00:02 → PCU 12-07 00:22
PROVIDERS: Nurse Practitioner Family; Admitting Provider Family Medicine; Emergency Provider Emergency Medicine; PCP Internal Medicine; Visit Provider Internal Medicine
DX: R55 Syncope and collapse (principal); I48.92 Unspecified atrial flutter; I47.1 Supraventricular tachycardia; N20.0 Calculus of kidney; E78.5 Hyperlipidemia, unspecified; I12.9 Hypertensive chronic kidney disease with stage 1 through stage 4 chronic kidney disease, or unspecified chronic kidney disease; N18.31 Chronic kidney disease, stage 3a; G47.33 Obstructive sleep apnea (adult) (pediatric); E11.42 Type 2 diabetes mellitus with diabetic polyneuropathy; E11.22 Type 2 diabetes mellitus with diabetic chronic kidney disease; F32.9 Major depressive disorder, single episode, unspecified; F41.9 Anxiety disorder, unspecified; N40.0 Benign prostatic hyperplasia without lower urinary tract symptoms; I25.10 Atherosclerotic heart disease of native coronary artery without angina pectoris; G25.81 Restless legs syndrome; E66.9 Obesity, unspecified; D50.9 Iron deficiency anemia, unspecified; L40.50 Arthropathic psoriasis, unspecified; E83.42 Hypomagnesemia; I48.0 Paroxysmal atrial fibrillation; Z79.899 Other long term (current) drug therapy; Z79.84 Long term (current) use of oral hypoglycemic drugs; Z86.718 Personal history of other venous thrombosis and embolism; Z68.33 Body mass index [BMI] 33.0-33.9, adult
CPT/HCPCS: 36415; 70450; 71045; 80048; 80053; 83735; 84443; 84484; 85025; 93005; J7030; A4216

== ENCOUNTER 2020-12-11 23:14 | Inpatient (IN) | payer MEDICARE, BC, SELFPAY ==
[2020-12-07 00:59] VITALS: BMI 33.3
[2020-12-11 23:14] VITALS: BP 146/63; PULSE 75; RESP 27; TEMP 36.8; O2SAT 85; BMI 35.2
[2020-12-11 23:19] VITALS: O2SAT 88
[2020-12-12] VITALS (30 sets, daily range): BP systolic 119–177; BP diastolic 45–88; PULSE 62–82; RESP 12–28; TEMP 36.3–36.7; O2SAT 90–97; BMI 29.7
--- NOTE | 2020-12-12 | RAD_ITS ---
STUDY: X-RAY CHEST REASON FOR EXAM: Male, 80 years old. Weakness, shortness of breath. TECHNIQUE: AP portable chest. COMPARISON: December 06, 2020. FINDINGS: No focal infiltrates or effusions. No pneumothorax. There is now a linear density right lung base. Normal size heart. Normal mediastinum and lakhwinder. Normal visualized pulmonary arteries. Normal visualized aortic arch and descending thoracic aorta. Osseous structures unchanged. There is no demonstrated abnormality of the visualized soft tissue structures of the upper abdomen. RAD/Chest 1 View (Portable) IMPRESSION: Probable right basilar subsegmental atelectasis. If there is high clinical suspicion of pneumonia correlate with CT chest. Electronically Signed: Daniel Kam MD at 1:15 EDT , Service support ,
[2020-12-12 00:01] LABS: Absolute Lymphocyte Count 0.92 X10^3/uL (0.83-4.51); Absolute Neutrophil Count 10.1 X10^3/uL (2.0-7.7); Basophil# 0.03 X10^3/uL; Basophil% 0.2 % (0-1); Eosinophil# 0.06 X10^3/uL; Eosinophils% 0.5 % (0-5); Hematocrit 24.2 % (40-54); Hemoglobin 7.9 g/dL (13.0-16.5); Lymphocyte # 0.92 X10^3/ul (0.83-4.51); Lymphocyte % 7.5 % (19-41); Mean Corp Hgb Conc 32.6 g/dL (32-36); Mean Platelet Vol. 10.4 fl (6.2-12.0); Monocyte# 1.09 X10^3/uL; Monocyte% 8.9 % (0-10); NRBC Flagged by Analyzer 0 % (0-5); Neutrophil # 10.09 X10^3/uL (2.7-7.7); Neutrophil % 82.1 % (47-70); Platelet Count 227 K/mm3 (150-450); RBC Distribution Width CV 13.9 % (11.6-14.6); RBC Distribution Width SD 46.7 fl (35.1-43.9); Red Blood Count 2.63 M/mm3 (4.6-6.2); White Blood Count 12.3 K/mm3 (4.4-11.0)
[2020-12-12 00:07] LABS: Partial Thromboplast Time 37.4 Seconds (24.1-36.2)
[2020-12-12 00:08] LABS: International Normalized Ratio 1.2; Prothrombin Time (Protime)PT. 14.8 SECONDS (11.7-14.9)
--- NOTE | 2020-12-12 00:16 | ED.RN ---
LACTIC OF 3.4 REPORTED TO . VERBALIZES UNDERSTANDING
[2020-12-12 00:17] LABS: ALB/GLOB Ratio 0.5 RATIO (0.9-2.4); AST(SGOT) 32 U/L (15-37); Alanine Aminotransfer ALT/SGPT 25 U/L (16-61); Albumin, Serum 2.4 g/dL (3.2-5.0); Alkaline Phosphatase 100 U/L (45-117); Anion Gap 11 (5-15); BUN 44 mg/dL (7-18); BUN/Creat Ratio 12.5 RATIO (10-20); Calcium,Total 8.7 mg/dL (8.5-10.1); Chloride 97 mmol/L (98-107); Creatinine, Serum 3.53 mg/dL (0.70-1.30); EST Glomerular Filtration Rate 18 mL/min (>60); Est Glom Filt Rate - Afr Amer 22 mL/min (>60); Estimated Creatinine Clearance 18.01 ml/min; Globulin 4.5 g/dL (2.2-4.2); Glucose 337 mg/dL (74-106); Lactic Acid 3.4 mmol/L (0.4-1.9); Potassium 4.8 mmol/L (3.5-5.1); Protein, Total 6.9 g/dL (6.4-8.2); Sodium Level 130 mmol/L (136-145)
[2020-12-12 00:31] LABS: BNP,B-Type NATRIURETIC PEPTIDE 736.5 pg/mL (0-100)
--- NOTE | 2020-12-12 03:35 | CT_ITS ---
STUDY: CT CHEST WITHOUT CONTRAST REASON FOR EXAM: Male, 80 years old. Pneumonia. RADIATION DOSAGE (If Supplied By Facility): CTDIvol = ( 20.05 ) mGy, DLP = ( 771.50 ) mGycm TECHNIQUE: Transaxial imaging was performed without the administration of intravenous contrast material. Individualized dose optimization techniques were used for this CT. COMPARISON: Chest x-ray December 12, 2020. FINDINGS: Small bilateral pleural effusions. Bilateral lower lobe subsegmental atelectasis right greater than left. There are a few scattered groundglass opacities in the right upper lobe and right middle lobe. Bilateral lower lobe peribronchial thickening right greater than left. Mild cardiomegaly. Coronary artery calcifications. Calcification of the mitral annulus. No pericardial effusion. Normal mediastinum. Normal hilar regions. Normal unenhanced pulmonary arteries. Normal aorta arch and descending thoracic aorta. Degenerative changes of the thoracic spine. Multiple gallstones. CT/Chest without Contrast IMPRESSION: Mild cardiomegaly. Coronary calcifications. Small bilateral pleural effusions. Bilateral lower lobe subsegmental atelectasis versus pneumonia right greater than left. Scattered right upper lobe and right middle lobe groundglass opacities. Bilateral lower lobe peribronchial thickening. These findings probably represent multifocal pneumonia on the right, to include viral pneumonia, and possible left lower lobe pneumonia on the left. Cholelithiasis. Electronically Signed: Daniel Kam MD at 5:52 EDT , Service support ,
[2020-12-12 03:58] LABS: Reflex Lactate? Y
[2020-12-12] MEDS: 0.9% Normal Saline 1,000 ML 75 ML IV (06:00)
[2020-12-12 08:07] LABS: Lactic Acid 2.1 mmol/L (0.4-1.9)
[2020-12-12 08:10] LABS: Mucous, Urine 0 SEEN /hpf (<or=2+)
[2020-12-12] MEDS: Ceftriaxone 1 GM/50 mL Premix Q24 IV (10:16)
[2020-12-12 10:24] LABS: Absolute Lymphocyte Count 0.76 X10^3/uL (0.83-4.51); Absolute Neutrophil Count 8.6 X10^3/uL (2.0-7.7); Basophil# 0.02 X10^3/uL; Basophil% 0.2 % (0-1); Eosinophil# 0.02 X10^3/uL; Eosinophils% 0.2 % (0-5); Hematocrit 22.1 % (40-54); Hemoglobin 7.2 g/dL (13.0-16.5); Lymphocyte # 0.76 X10^3/ul (0.83-4.51); Lymphocyte % 7.3 % (19-41); Mean Corp Hgb Conc 32.6 g/dL (32-36); Mean Corpuscular Hgb 29.6 pg (27.0-32.0); Mean Corpuscular Volume 90.9 fL (80-94); Monocyte# 0.95 X10^3/uL; Monocyte% 9.1 % (0-10); NRBC Flagged by Analyzer 0 % (0-5); Neutrophil # 8.63 X10^3/uL (2.7-7.7); Neutrophil % 82.2 % (47-70); Platelet Count 197 K/mm3 (150-450); RBC Distribution Width CV 13.7 % (11.6-14.6); RBC Distribution Width SD 45.2 fl (35.1-43.9); Red Blood Count 2.43 M/mm3 (4.6-6.2); White Blood Count 10.5 K/mm3 (4.4-11.0)
[2020-12-12 10:40] LABS: ALB/GLOB Ratio 0.5 RATIO (0.9-2.4); AST(SGOT) 19 U/L (15-37); Alanine Aminotransfer ALT/SGPT 20 U/L (16-61); Albumin, Serum 2.1 g/dL (3.2-5.0); Alkaline Phosphatase 96 U/L (45-117); Anion Gap 6 (5-15); BUN 42 mg/dL (7-18); BUN/Creat Ratio 13.1 RATIO (10-20); Calcium,Total 8.3 mg/dL (8.5-10.1); Chloride 100 mmol/L (98-107); Creatinine, Serum 3.21 mg/dL (0.70-1.30); EST Glomerular Filtration Rate 20 mL/min (>60); Est Glom Filt Rate - Afr Amer 24 mL/min (>60); Estimated Creatinine Clearance 23.33 ml/min; Glucose 331 mg/dL (74-106); Potassium 4.7 mmol/L (3.5-5.1); Protein, Total 6.1 g/dL (6.4-8.2); Sodium Level 132 mmol/L (136-145)
[2020-12-12 11:13] LABS: Color, Urine Yellow (Yellow); Glucose, Dipstick 250 mg/dl (Normal); Ketone-Dipstick Negative (Negative); Urine Bilirubin Dipstick Negative (Negative); Urine Clarity Clear (Clear)
[2020-12-12 11:14] LABS: Bacteria RARE /hpf (None Seen); Leukocyte Esterase-Dipstick 25 /ul (Negative); Nitrite-Dipstick Negative (Negative); Occult Blood-Urine 250 /ul (Negative); Protein-Dipstick 100 mg/dl (Negative); Red Blood Cells-Urine 5-10 SEEN /hpf (0-5); Squamous Epithelial Cells - UA 0-5 SEEN /hpf (0-5); Urine Urobilinogen Normal (Normal); White Blood Cells 0-5 SEEN /hpf (0-5)
[2020-12-12 11:55] LABS: Bedside Glucose 336 mg/dL (70-110)
[2020-12-12] MEDS: Insulin Lispro 100 UNIT/ML INSULN.PEN SC ×3 (12:07→21:25)
[2020-12-12] MEDS: 0.9% NaCl Peripheral Flush Adult/Peds IV ×2 (12:09→15:53)
--- NOTE | 2020-12-12 13:03 | CON.PCM.CC_ITS ---
Assessment & Plan Assessment/Plan (1) Acute respiratory failure with hypoxia: Status: Acute Code(s): J96.01 - Acute respiratory failure with hypoxia Plan: Clinical suspicion for acute congestive heart failure leading to respiratory failure. Patient does have rales on exam, elevated BNP and lack of symptomato logy to suggest pneumonia such as fever or productive cough. Patient has responded to BiPAP therapy thus far. We will need to verify the patient does not have hydronephrosis prior to administration of Lasix therapy. Continue BiPAP 12/6 centimeters of water with sleep and rescue if necessary. A total of 35 minutes of critical care time was spent addressing patient's acute respiratory failure, acute kidney injury, anemia, congestive heart failure, review of all data and collaboration with care team (12 PM to 1:48 PM) (2) HORACE (acute kidney injury): Status: Acute Code(s): N17.9 - Acute kidney failure, unspecified Plan: Patient with acute elevation in creatinine compared to previous. Patient with risk factors for postobstructive uropathy given recent urologic intervention. Will obtain a renal ultrasound. Other possible etiology is prerenal secondary to CHF. If patient does not have hydronephrosis on renal ultrasound, anticipate aggressive diuretic therapy. (3) Anemia: Status: Chronic Code(s): D64.9 - Anemia, unspecified Plan: Unclear etiology at this time. Patient does run lower hemoglobin, but just recently was noted at 9+. Unclear if patient has an element of blood loss secondary to recent urologic procedure. Patient is not reporting any signs or symptoms of GI bleed at this time. Could check a Hemoccult stool if persist. We will hold on transfusion at this time. 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 Recommend transitioning to insulin therapy during the acute process. Sliding scale will be increased. (5) MACHELLE (obstructive sleep apnea): Status: Chronic Code(s): G47.33 - Obstructive sleep apnea (adult) (pediatric) Plan: Patient with subpar compliance as an outpatient. Patient understands that this will be necessary during the acute condition to avoid future complications. Patient should be on AVAPS versus BiPAP 12/6 centimeters of water with all sleep. (6) RLS (restless legs syndrome): Status: Chronic Plan: Okay to continue baseline ropinirole (7) Congestive heart failure (CHF): Status: Acute Code(s): I50.9 - Heart failure, unspecified Qualifiers: Heart failure chronicity: acute on chronic Heart failure type: diastolic Qualified Code(s): I50.33 - Acute on chronic diastolic (congestive) heart failure Plan: Patient with recent echocardiogram showing preserved ejection fraction. Unfortunately, unable to quantify pulmonary artery pressures, but lower extremit y edema and groundglass opacities with pleural effusions is suggestive of decompensated heart failure. If patient is found to have no hydronephrosis, recommend aggressive diuretic therapy (8) Dizziness: Status: Chronic Code(s): R42 - Dizziness and giddiness Plan: Unclear etiology. Patient may be having hypoxia leading to dizziness on presentation. Patient does have a significant history of cardiac arrhythmias. Continue with telemetry. (9) Status post laser lithotripsy of ureteral calculus: Status: Acute Code(s): Z98.890 - Other specified postprocedural states Plan: Obtain renal ultrasound to evaluate for hydronephrosis. Patient may need Liu catheter placement to avoid postobstructive uropathy (10) HLD (hyperlipidemia): Status: Chronic Code(s): E78.5 - Hyperlipidemia, unspecified Qualifiers: Hyperlipidemia type: pure hypercholesterolemia Qualified Code(s): E78.00 - Pure hypercholesterolemia, unspecified; E78.0 - Pure hypercholesterolemia Plan: Okay to continue statin (11) Essential (primary) hypertension: Status: Chronic Code(s): I10 - Essential (primary) hypertension Plan: Blood pressure appears to be well controlled at this time. Avoid MARIJA inhibitors given acute kidney injury HPI Consult Data Date of Consult: 12/12/20 HPI Narrative HPI Narrative: MARY SAN, is a 80 M, with past medical history listed below and well-known to me from the outpatient office, who presented to [facility] shortly after discharge secondary to progressive weakness. Patient was recently hospitalized at [facility] from 12/06/2020 until 12/10/2020 secondary to a syncopal episode. Patient states that she had gone home and felt progressively more short of breath and weak and was afraid th at he was going to fall and hurt himself, so called EMS and came back to the ER. In ER, patient was reportedly 85% on room air. Documentation is difficult to read, but patient reportedly was treated for sepsis secondary to possible pneumonia given his lactate was 2.1. Patient received Levaquin, fluid bolus and Lovenox. Patient became progressively more hypoxic and short of breath, so was placed on BiPAP therapy. Laboratory work-up showed no significant leukocytosis. Hemoglobin was significantly down from 9.5-->7.9. Patient was also noted to have significant elevation in creatinine to 3.5 (baseline 1.2). BNP was elevated at 736 and glucose was elevated at 336. Liver function studies were within normal limits. Since being in the intensive care unit, patient has been able to be taken off of BiPAP therapy. Patient is requiring 6 L nasal cannula to maintain saturations. Patient believes his weakness is slightly improved compared to previous. Patient is not reporting any melena and nursing has not noted any blood loss. Patient does not use supplemental oxygen at baseline. Patient does follow with our office for obstructive sleep apnea. Patient admits that he has not been as compliant recently with his BiPAP therapy. Patient is a poor historian and not able to provide a reliable medication list on what he is taking at home. Review of systems otherwise negative from a constitutional, HEENT, respiratory, cardiovascular, GI, genitourinary, musculoskeletal, skin, neurologic, psychiatric and hematologic system unless stated above. [facility] Medical History (Updated 12/12/20 @ 13:[address] Narayan Tanner MD) Anemia Anxiety and depression Atherosclerotic heart disease of [place] coronary artery without angina pectoris Back pain BMI 34.0-34.9,adult BPH (benign prostatic hyperplasia) BPPV (benign paroxysmal positional vertigo) Cardiac dysrhythmia De Quervain's tenosynovitis Dermatitis Diabetes mellitus Dizziness DM type 2 with diabetic peripheral neuropathy Dyslipidemia Essential (primary) hypertension Fall Fracture of great toe History of renal calculi HLD (hyperlipidemia) Loss of equilibrium Malaise Near syncope Open wound of left lower extremity Orthostatic hypotension MACHELLE (obstructive sleep apnea) Paroxysmal atrial flutter Pneumonia Polypharmacy RLS (restless legs syndrome) SVT (supraventricular tachycardia) Vertigo Home Medications finasteride 5 mg tablet 5 mg PO DAILY #90 tablet 11/03/18 [Rx Last Taken Unknown] flecainide 100 mg tablet 100 mg PO Q12H #180 tablet 06/25/20 [Rx Last Taken 12/06/20 12:31] simvastatin 20 mg tablet 20 mg PO QHS #90 tablet 05/10/20 [Rx Last Taken Unknown] pramipexole 1 mg tablet 2 mg PO QHS #180 tablet 08/23/20 [Rx Last Taken Unknown] dulaglutide 1.5 mg/0.5 mL subcutaneous pen injector 1.5 mg SC QWEEK 90 Days #6.5 ml 11/13/20 [Rx Last Taken Unknown] apremilast 30 mg PO BID 11/22/20 [History Last Taken Unknown] levomilnacipran 40 mg PO DAILY 11/22/20 [History Last Taken Unknown] metoprolol succinate 25 mg tablet,extended release 24 hr 75 mg PO BID 90 Days #540 tablet 11/24/20 [Rx Last Taken 12/06/20 12:31] amlodipine 5 mg tablet 5 mg PO BID #180 tablet 12/05/20 [Rx Last Taken 12/06/20 12:31] ciprofloxacin HCl 500 mg PO BID #10 tab 12/06/20 [Rx Last Taken Unknown] oxycodone-acetaminophen 1 tablet PO Q4H PRN PRN 7 Days #14 tab 12/06/20 [Rx Last Taken Unknown] Allergy/AdvReac Type Severity Reaction Status Date / Time hydrocodone bitartrate Allergy Other Verified 12/11/20 23:18 [From Vicodin] hydroxyzine AdvReac Other Verified 12/11/20 23:18 Family History Father Diabetes Hypertension Cancer Lung cancer Mother Hypertension CVA (cerebral vascular accident) Sister Diabetes Son Diabetes Surgical History History of cardioversion (2015) History of cataract surgery History of left heart catheterization (02/16/13) History of radiofrequency ablation procedure for cardiac arrhythmia (02/05/06) history of right knee cap fracture History of right knee surgery Status post left foot surgery STENT PLACEMENT FOR KIDNEY STONE Social History Smoking Status: Former smoker how long ago did patient quit smokin second hand exposure: No alcohol intake: never substance use type: does not use caffeine: No what type of physical activity do you participate in: none seatbelt use: always do you feel safe at home: Yes ROS ROS Narrative See HPI Physical Exam Const alert and oriented x3 Constitutional Narrative: Drowsy. Falling asleep during evaluation. Hard of hearing. General Appearance: cooperative, well developed and lethargic HEENT normocephalic and head/scalp atraumatic HEENT Narrative: Crowded posterior pharynx General Ear: hearing grossly impaired Eyes PERRL and EOMs intact bilaterally Neck full ROM Lymph Lymphatic: no lymphadenopathy noted Resp Effort and Inspection: Negative for actively coughing or uses accessory muscles Auscultation: rales bilateral and diffuse; Negative for rhonchi or wheezes Cardio regular rate, regular rhythm, S1 normal heart sound, S2 normal heart sound, no murmurs, no rub and no gallops GI normal to inspection, nondistended, normoactive bowel sounds Back/Spine no CVA tenderness Extremity General Extremity: edema bilateral lower extremity (4+) Details: severe Skin no rashes or lesions noted Skin Narrative: Stasis dermatitis noted on the lower extremities Neuro oriented x3 and CN's II-XII intact bilaterally Psych cooperative Mood & Affect: flat affect Lab / Micro Data Attestation: I reviewed the patient's lab results. Result Diagrams: 12/12/20 10:00 12/12/20 10:00 Labs: Laboratory Results - last 24 hr 12/11/20 12/11/20 12/11/20 23:20 23:20 23:20 WBC 12.3 H RBC 2.63 L Hgb 7.9 L Hct 24.2 L MCV 92.0 MCH 30.0 MCHC 32.6 RDW Std Deviation 46.7 H RDW Coeff of Flavio 13.9 Plt Count 227 MPV 10.4 Immature Gran % (Auto) 0.800 Neut % (Auto) 82.1 H Lymph % (Auto) 7.5 L [place] % (Auto) 8.9 Eos % (Auto) 0.5 Baso % (Auto) 0.2 Absolute Neuts (auto) 10.1 H Absolute Lymphs (auto) 0.92 Nucleated RBC % 0 PT 14.8 INR 1.2 APTT 37.4 H Sodium 130 L Potassium 4.8 Chloride 97 L Carbon Dioxide 22.0 Anion Gap 11 BUN 44 H Creatinine 3.53 H Estim Creat Clear Calc 18.01 Est GFR (MDRD) Af Amer 22 L Est GFR (MDRD) Non-Af 18 L BUN/Creatinine Ratio 12.5 Glucose 337 H Lactic Acid Calcium 8.7 Total Bilirubin 1.10 H AST 32 ALT 25 Alkaline Phosphatase 100 Troponin I < 0.015 B-Natriuretic Peptide Total Protein 6.9 Albumin 2.4 L Globulin 4.5 H Albumin/Globulin Ratio 0.5 L Urine Color Urine Clarity Urine pH Ur Specific [place] Urine Protein Urine Glucose (UA) Urine Ketones Urine Occult Blood Urine Nitrite Urine Bilirubin Urine Urobilinogen Ur Leukocyte Esterase Urine RBC Urine WBC Ur Squamous Epith Cells Urine Bacteria Urine Mucus POC Glucose 12/11/20 12/11/20 12/12/20 23:20 23:20 00:58 WBC RBC Hgb Hct MCV MCH MCHC RDW Std Deviation RDW Coeff of Flavio Plt Count MPV Immature Gran % (Auto) Neut % (Auto) Lymph % (Auto) [place] % (Auto) Eos % (Auto) Baso % (Auto) Absolute Neuts (auto) Absolute Lymphs (auto) Nucleated RBC % PT INR APTT Sodium Potassium Chloride Carbon Dioxide Anion Gap BUN Creatinine Estim Creat Clear Calc Est GFR (MDRD) Af Amer Est GFR (MDRD) Non-Af BUN/Creatinine Ratio Glucose Lactic Acid 3.4 H* Calcium Total Bilirubin AST ALT Alkaline Phosphatase Troponin I B-Natriuretic Peptide 736.5 H Total Protein Albumin Globulin Albumin/Globulin Ratio Urine Color Yellow Urine Clarity Clear Urine pH 5.0 Ur Specific [place] 1.020 Urine Protein 100 H Urine Glucose (UA) 250 H Urine Ketones Negative Urine Occult Blood 250 H Urine Nitrite Negative Urine Bilirubin Negative Urine Urobilinogen Normal Ur Leukocyte Esterase 25 H Urine RBC 5-10 SEEN Urine WBC 0-5 SEEN Ur Squamous Epith Cells 0-5 SEEN Urine Bacteria RARE Urine Mucus 0 SEEN POC Glucose 12/12/20 12/12/20 12/12/20 04:05 10:00 10:00 WBC 10.5 RBC 2.43 L Hgb 7.2 L Hct 22.1 L MCV 90.9 MCH 29.6 MCHC 32.6 RDW Std Deviation 45.2 H RDW Coeff of Flavio 13.7 Plt Count 197 MPV 10.0 Immature Gran % (Auto) 1.000 H Neut % (Auto) 82.2 H Lymph % (Auto) 7.3 L [place] % (Auto) 9.1 Eos % (Auto) 0.2 Baso % (Auto) 0.2 Absolute Neuts (auto) 8.6 H Absolute Lymphs (auto) 0.76 L Nucleated RBC % 0 PT INR APTT Sodium 132 L Potassium 4.7 Chloride 100 Carbon Dioxide 26.0 Anion Gap 6 BUN 42 H Creatinine 3.21 H Estim Creat Clear Calc 23.33 Est GFR (MDRD) Af Amer 24 L Est GFR (MDRD) Non-Af 20 L BUN/Creatinine Ratio 13.1 Glucose 331 H Lactic Acid 2.1 H* Calcium 8.3 L Total Bilirubin 0.90 AST 19 ALT 20 Alkaline Phosphatase 96 Troponin I B-Natriuretic Peptide Total Protein 6.1 L Albumin 2.1 L Globulin 4.0 Albumin/Globulin Ratio 0.5 L Urine Color Urine Clarity Urine pH Ur Specific [place] Urine Protein Urine Glucose (UA) Urine Ketones Urine Occult Blood Urine Nitrite Urine Bilirubin Urine Urobilinogen Ur Leukocyte Esterase Urine RBC Urine WBC Ur Squamous Epith Cells Urine Bacteria Urine Mucus POC Glucose 12/12/20 11:46 WBC RBC Hgb Hct MCV MCH MCHC RDW Std Deviation RDW Coeff of Flavio Plt Count MPV Immature Gran % (Auto) Neut % (Auto) Lymph % (Auto) [place] % (Auto) Eos % (Auto) Baso % (Auto) Absolute Neuts (auto) Absolute Lymphs (auto) Nucleated RBC % PT INR APTT Sodium Potassium Chloride Carbon Dioxide Anion Gap BUN Creatinine Estim Creat Clear Calc Est GFR (MDRD) Af Amer Est GFR (MDRD) Non-Af BUN/Creatinine Ratio Glucose Lactic Acid Calcium Total Bilirubin AST ALT Alkaline Phosphatase Troponin I B-Natriuretic Peptide Total Protein Albumin Globulin Albumin/Globulin Ratio Urine Color Urine Clarity Urine pH Ur Specific [place] Urine Protein Urine Glucose (UA) Urine Ketones Urine Occult Blood Urine Nitrite Urine Bilirubin Urine Urobilinogen Ur Leukocyte Esterase Urine RBC Urine WBC Ur Squamous Epith Cells Urine Bacteria Urine Mucus POC Glucose 336 H Micro: Microbiology 12/12/20 08:30 Respiratory Panel (PCR) - Final Mucosa - Nasopharyngeal 12/12/20 00:05 SARS-CoV-2 Antigen (Rapid) - Final Mucosa - Nose All imaging was personally reviewed and I agree with formal interpretation. Pleural effusions noted on CT of the chest are not significant enough for thoracentesis. Image quality is compromised secondary to movement artifact Radiology Impression Chest X-Ray 12/12/20 00:00 IMPRESSION: Probable right basilar subsegmental atelectasis. If there is high clinical suspicion of pneumonia correlate with CT chest. Electronically Signed: Daniel Kam MD at 1:15 EDT , Service support , Chest CT 12/12/20 03:35 IMPRESSION: Mild cardiomegaly. Coronary calcifications. Small bilateral pleural effusions. Bilateral lower lobe subsegmental atelectasis versus pneumonia right greater than left. Scattered right upper lobe and right middle lobe groundglass opacities. Bilateral lower lobe peribronchial thickening. These findings probably represent multifocal pneumonia on the right, to include viral pneumonia, and possible left lower lobe pneumonia on the left. Cholelithiasis. Electronically Signed: Daniel Kam MD at 5:52 EDT , Service support , Brain CT 12/12/20 23:48 IMPRESSION: No acute intracranial abnormality. Electronically Signed: Daniel Kam MD at 2:24 EDT , Service support , Charges/Coding 9xxxx: [id number] Critical care first hour
--- NOTE | 2020-12-12 13:14 | US_ITS ---
We are attempting to reach an attending provider to discuss findings. An addendum with communication details will be sent when the communication is complete. STUDY: RENAL ULTRASOUND - COMPLETE REASON FOR EXAM: Male, 80 years old. R/O hydronephrosis TECHNIQUE: Ultrasound evaluation of the kidneys was performed with real-time and static doyle-scale imaging. COMPARISON: CT scan chest without contrast December 12, 2020 FINDINGS: RIGHT KIDNEY: Normal location of the right kidney, which is normal in size. The right kidney measures 13.9 x 5.8 x 6.7 cm. There is a normal cortex of the right kidney. The renal cortex measures 8.4 cm. There is a cyst measuring 1.4 x 1.3 x 1.2 cm. There is a 6 x 5 x 5 mm calculus right kidney. There is no right hydronephrosis. DISTAL RIGHT URETER: There is non-visualization of the distal right ureter. There is no demonstrated right ureterovesical junction calculus. There is a visualized right ureteral jet. LEFT KIDNEY: Normal location of the left kidney, which is normal in size. The left kidney measures 13.5 x 7.4 x 7 cm. There is a normal cortex of the left kidney. There is a band of hyperdense fluid adjacent to the left kidney with some mass effect that measures 11.2 x 2.3''s cm. The recent prior study CT scan of the chest shows partial visualization of what is likely a pericapsular or subcapsular hemorrhage within the left kidney. The renal cortex measures 2 cm. There is a left renal cyst measuring 3.7 x 4.4 x 2.1 cm. There is cyst measuring 3.8 x 2.3 cm. 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 There is a left renal cyst measuring 4.3 cm. There are no left renal calculi. There is no left hydronephrosis. DISTAL LEFT URETER: There is non-visualization of the distal left ureter. There is no demonstrated left ureterovesical junction calculus. There is a visualized left ureteral jet. BLADDER: The distended urinary bladder has a volume of 526 ml. The bladder wall measures 4.3 mm.. There is no demonstrated mass within the urinary bladder. There are no demonstrated bladder calculi. US/Kidney and Bladder IMPRESSION: Left-sided perinephric hematoma, for which a noncontrast CT scan of the chest is recommended. This measures up to 11.5 x 2.3. Benign-appearing left renal cyst. Benign-appearing bilateral renal cysts. Electronically Signed: Kavitha Justin MD at 7:12 EDT Tel , Service support ,
--- NOTE | 2020-12-12 13:59 | CASEMGMT ---
Readmission chart review: Pt was initially admitted 12/06-12/08/20 for syncopal episode s/p lithotripsy. See RN CM assessment from 12/08/20. Pt was already active with [facility] SN, PT/OT prior to this admission. [facility] order was placed and d/c summ/instructions faxed at discharge This RN CM spoke with pt during f/u call on 12/11/20 and he c/o some weakness/tired. Pt had stated that [facility] had been out earlier in the day and his blood sugar was elevated. Pt states they had a call out to [facility]. See RN CM d/c f/u note from this RN CM. Pt returned to [facility] ED late last pm with c/o increased weakness and 'no strength in his legs'. Pt admitted to ICU for Acute hypoxemic resp insuff/severe sepsis d/t pna. Pt was initially on continous bipap but is now on 6L. CM to follow for PT/OT evals and any further discharge planning/needs. [place]en TIMOTHY LOPEZ
[2020-12-12 14:24] LABS: Hematocrit 22.5 % (40-54); Hemoglobin 7.3 g/dL (13.0-16.5)
[2020-12-12 14:44] LABS: BNP,B-Type NATRIURETIC PEPTIDE 646.4 pg/mL (0-100)
--- NOTE | 2020-12-12 14:44 | CASEMGMT ---
Pt has Living Will on file, no Healthcare POA form. ALVIN Amin
--- NOTE | 2020-12-12 15:38 | PCM.PN.HOSP ---
Subjective Subjective: Patient was seen and examined. He denied any new complains. He is currently on 6 L of oxygen. Objective Data Objective Data General: Alert, Oriented x3, Cooperative, No apparent distress, Well developed, obese, on 6 L of oxygen HEENT: Atraumatic Oral: Moist Mucosa Neck: Supple Lungs: Diminished, crackles at the lung bases Cardiovascular: HS I+II, regular, no murmurs Abdomen: Bowel Sounds Present, Soft, Non Tender Extremities: Bilateral pedal edema +1 Skin: No rashes, No breakdown Neurological: Grossly intact Psych/Mental Status: Appropriate Vital Signs: Vital Signs Temp Pulse Resp BP Pulse Ox 97.4 F L 69 24 H 141/70 H 93 12/12/20 12:00 12/12/20 15:00 12/12/20 15:00 12/12/20 15:00 12/12/20 15:00 Oxygen Flow Rate (L/min) 6 Oxygen Delivery Method Nasal Cannula Weight: 116.619 kg Body Mass Index (BMI) 29.7 Finger Stick Blood Glucose 123 Intake & Output: Intake and Output for Last 24 Hours 12/10/20 12/11/20 12/12/20 23:59 23:59 23:59 Intake Total 50 / 50 Output Total 250 / 250 Balance -200 / -200 Lab / Micro Data Result Diagrams: 12/12/20 14:15 12/12/20 10:00 Labs: Laboratory Results - last 24 hr 12/11/20 12/11/20 12/11/20 23:20 23:20 23:20 WBC 12.3 H RBC 2.63 L Hgb 7.9 L Hct 24.2 L MCV 92.0 MCH 30.0 MCHC 32.6 RDW Std Deviation 46.7 H RDW Coeff of Flavio 13.9 Plt Count 227 MPV 10.4 Immature Gran % (Auto) 0.800 Neut % (Auto) 82.1 H Lymph % (Auto) 7.5 L [place] % (Auto) 8.9 Eos % (Auto) 0.5 Baso % (Auto) 0.2 Absolute Neuts (auto) 10.1 H Absolute Lymphs (auto) 0.92 Nucleated RBC % 0 PT 14.8 INR 1.2 APTT 37.4 H Sodium 130 L Potassium 4.8 Chloride 97 L Carbon Dioxide 22.0 Anion Gap 11 BUN 44 H Creatinine 3.53 H Estim Creat Clear Calc 18.01 Est GFR (MDRD) Af Amer 22 L Est GFR (MDRD) Non-Af 18 L BUN/Creatinine Ratio 12.5 Glucose 337 H Lactic Acid Calcium 8.7 Total Bilirubin 1.10 H AST 32 ALT 25 Alkaline Phosphatase 100 Troponin I < 0.015 B-Natriuretic Peptide Total Protein 6.9 Albumin 2.4 L Globulin 4.5 H Albumin/Globulin Ratio 0.5 L Urine Color Urine Clarity Urine pH Ur Specific [place] Urine Protein Urine Glucose (UA) Urine Ketones Urine Occult Blood Urine Nitrite Urine Bilirubin Urine Urobilinogen Ur Leukocyte Esterase Urine RBC Urine WBC Ur Squamous Epith Cells Urine Bacteria Urine Mucus POC Glucose 12/11/20 12/11/20 12/12/20 23:20 23:20 00:58 WBC RBC Hgb Hct MCV MCH MCHC RDW Std Deviation RDW Coeff of Flavio Plt Count MPV Immature Gran % (Auto) Neut % (Auto) Lymph % (Auto) [place] % (Auto) Eos % (Auto) Baso % (Auto) Absolute Neuts (auto) Absolute Lymphs (auto) Nucleated RBC % PT INR APTT Sodium Potassium Chloride Carbon Dioxide Anion Gap BUN Creatinine Estim Creat Clear Calc Est GFR (MDRD) Af Amer Est GFR (MDRD) Non-Af BUN/Creatinine Ratio Glucose Lactic Acid 3.4 H* Calcium Total Bilirubin AST ALT Alkaline Phosphatase Troponin I B-Natriuretic Peptide 736.5 H Total Protein Albumin Globulin Albumin/Globulin Ratio Urine Color Yellow Urine Clarity Clear Urine pH 5.0 Ur Specific [place] 1.020 Urine Protein 100 H Urine Glucose (UA) 250 H Urine Ketones Negative Urine Occult Blood 250 H Urine Nitrite Negative Urine Bilirubin Negative Urine Urobilinogen Normal Ur Leukocyte Esterase 25 H Urine RBC 5-10 SEEN Urine WBC 0-5 SEEN Ur Squamous Epith Cells 0-5 SEEN Urine Bacteria RARE Urine Mucus 0 SEEN POC Glucose 12/12/20 12/12/20 12/12/20 04:05 10:00 10:00 WBC 10.5 RBC 2.43 L Hgb 7.2 L Hct 22.1 L MCV 90.9 MCH 29.6 MCHC 32.6 RDW Std Deviation 45.2 H RDW Coeff of Flavio 13.7 Plt Count 197 MPV 10.0 Immature Gran % (Auto) 1.000 H Neut % (Auto) 82.2 H Lymph % (Auto) 7.3 L [place] % (Auto) 9.1 Eos % (Auto) 0.2 Baso % (Auto) 0.2 Absolute Neuts (auto) 8.6 H Absolute Lymphs (auto) 0.76 L Nucleated RBC % 0 PT INR APTT Sodium 132 L Potassium 4.7 Chloride 100 Carbon Dioxide 26.0 Anion Gap 6 BUN 42 H Creatinine 3.21 H Estim Creat Clear Calc 23.33 Est GFR (MDRD) Af Amer 24 L Est GFR (MDRD) Non-Af 20 L BUN/Creatinine Ratio 13.1 Glucose 331 H Lactic Acid 2.1 H* Calcium 8.3 L Total Bilirubin 0.90 AST 19 ALT 20 Alkaline Phosphatase 96 Troponin I B-Natriuretic Peptide Total Protein 6.1 L Albumin 2.1 L Globulin 4.0 Albumin/Globulin Ratio 0.5 L Urine Color Urine Clarity Urine pH Ur Specific [place] Urine Protein Urine Glucose (UA) Urine Ketones Urine Occult Blood Urine Nitrite Urine Bilirubin Urine Urobilinogen Ur Leukocyte Esterase Urine RBC Urine WBC Ur Squamous Epith Cells Urine Bacteria Urine Mucus POC Glucose 12/12/20 12/12/20 12/12/20 11:46 14:15 14:15 WBC RBC Hgb 7.3 L Hct 22.5 L MCV MCH MCHC RDW Std Deviation RDW Coeff of Flavio Plt Count MPV Immature Gran % (Auto) Neut % (Auto) Lymph % (Auto) [place] % (Auto) Eos % (Auto) Baso % (Auto) Absolute Neuts (auto) Absolute Lymphs (auto) Nucleated RBC % PT INR APTT Sodium Potassium Chloride Carbon Dioxide Anion Gap BUN Creatinine Estim Creat Clear Calc Est GFR (MDRD) Af Amer Est GFR (MDRD) Non-Af BUN/Creatinine Ratio Glucose Lactic Acid Calcium Total Bilirubin AST ALT Alkaline Phosphatase Troponin I B-Natriuretic Peptide 646.4 H Total Protein Albumin Globulin Albumin/Globulin Ratio Urine Color Urine Clarity Urine pH Ur Specific [place] Urine Protein Urine Glucose (UA) Urine Ketones Urine Occult Blood Urine Nitrite Urine Bilirubin Urine Urobilinogen Ur Leukocyte Esterase Urine RBC Urine WBC Ur Squamous Epith Cells Urine Bacteria Urine Mucus POC Glucose 336 H Micro: Microbiology 12/12/20 08:30 Mucosa - Nasopharyngeal Respiratory Panel (PCR) - Final 12/12/20 00:05 Mucosa - Nose SARS-CoV-2 Antigen (Rapid) - Final Radiography Diagnostic Testing: Radiology Impression Chest X-Ray 12/12/20 00:00 IMPRESSION: Probable right basilar subsegmental atelectasis. If there is high clinical suspicion of pneumonia correlate with CT chest. Electronically Signed: Daniel Kam MD at 1:15 EDT , Service support , Chest CT 12/12/20 03:35 IMPRESSION: Mild cardiomegaly. Coronary calcifications. Small bilateral pleural effusions. Bilateral lower lobe subsegmental atelectasis versus pneumonia right greater than left. Scattered right upper lobe and right middle lobe groundglass opacities. Bilateral lower lobe peribronchial thickening. These findings probably represent multifocal pneumonia on the right, to include viral pneumonia, and possible left lower lobe pneumonia on the left. Cholelithiasis. Electronically Signed: Daniel Kam MD at 5:52 EDT , Service support , Brain CT 12/12/20 23:48 IMPRESSION: No acute intracranial abnormality. Electronically Signed: Daniel Kam MD at 2:24 EDT , Service support , Assessment & Plan Assessment/Plan (1) HORACE (acute kidney injury): Status: Acute Code(s): N17.9 - Acute kidney failure, unspecified (2) Congestive heart failure (CHF): Status: Acute Code(s): I50.9 - Heart failure, unspecified Qualifiers: Heart failure type: diastolic Heart failure chronicity: acute on chronic Qualified Code(s): I50.33 - Acute on chronic diastolic (congestive) heart failure (3) Acute respiratory failure with hypoxia: Status: Acute Code(s): J96.01 - Acute respiratory failure with hypoxia (4) Syncope: Status: Acute Code(s): R55 - Syncope and collapse (5) Anemia: Status: Chronic Code(s): D64.9 - Anemia, unspecified Plan: Continue to wean off oxygen for SPO2 more than 94% IV Lasix 40 mg twice daily Renal ultrasound Urine sodium, urine creatinine Nephrology consult Continue with breathing treatment Stool for occult blood Trend H&H every 6h Repeat CBCD and renal profile in a.m. Inpatient E&M: 55060 Subs Hosp L3
[2020-12-12] MEDS: Furosemide 40 MG/4 ML Vial IV (15:50)
[2020-12-12] MEDS: Lidocaine Jelly 2% 20 ML Syringe (URO-JET) 20 APPLIC TOPICAL (15:51)
[2020-12-12 17:20] LABS: Bedside Glucose 272 mg/dL (70-110)
[2020-12-12 18:04] LABS: Urine Sodium 99 mmol/L (Not Establ.)
[2020-12-12 18:26] LABS: Hematocrit 24.5 % (40-54); Hemoglobin 7.9 g/dL (13.0-16.5)
--- NOTE | 2020-12-12 20:10 | CPS ---
Set up Pt's home BiPAP unit up with 5 lpm O2 bleed in
[2020-12-12] MEDS: Metoprolol(XL)Succ 25 MG Tablet 75 MG PO (21:26)
[2020-12-12] MEDS: amLODIPine 5 MG Tablet PO (21:26)
[2020-12-12 21:41] LABS: Bedside Glucose 256 mg/dL (70-110)
--- NOTE | 2020-12-12 23:48 | CT_ITS ---
STUDY: CT BRAIN WITHOUT CONTRAST REASON FOR EXAM: Male, 80 years old. Weakness. RADIATION DOSAGE (If Supplied By Facility): CTDIvol = ( 44.99 ) mGy, DLP = ( 863.60 ) mGycm TECHNIQUE: Transaxial CT imaging of the brain was performed without administration of intravenous contrast material. Individualized dose optimization techniques were used for this CT. COMPARISON: December 07, 2020. FINDINGS: Normal soft tissue structures. Normal calvarium. There is mild cerebral atrophy with widening of the extra-axial spaces and ventricular dilatation. Normal white matter tracts of the cerebral hemispheres. Normal basal ganglia and thalami. Normal brainstem. Normal cerebellum. There is no intracranial hemorrhage. There are no findings of an acute ischemic infarction. Normal visualized paranasal sinuses. CT/Brain/Head without Contrast IMPRESSION: No acute intracranial abnormality. Electronically Signed: Daniel Kam MD at 2:24 EDT , Service support ,
[2020-12-13] VITALS (25 sets, daily range): BP systolic 122–158; BP diastolic 53–99; PULSE 67–85; RESP 12–29; TEMP 36.4–36.9; O2SAT 91–99
[2020-12-13 03:56] LABS: Absolute Lymphocyte Count 0.75 X10^3/uL (0.83-4.51); Absolute Neutrophil Count 8.1 X10^3/uL (2.0-7.7); Basophil# 0.02 X10^3/uL; Basophil% 0.2 % (0-1); Eosinophil# 0.02 X10^3/uL; Eosinophils% 0.2 % (0-5); Hematocrit 23.6 % (40-54); Hemoglobin 7.6 g/dL (13.0-16.5); Lymphocyte # 0.75 X10^3/ul (0.83-4.51); Lymphocyte % 7.6 % (19-41); Mean Corp Hgb Conc 32.2 g/dL (32-36); Mean Corpuscular Hgb 29.3 pg (27.0-32.0); Mean Corpuscular Volume 91.1 fL (80-94); Mean Platelet Vol. 9.8 fl (6.2-12.0); Monocyte# 0.93 X10^3/uL; Monocyte% 9.4 % (0-10); NRBC Flagged by Analyzer 0 % (0-5); Neutrophil # 8.07 X10^3/uL (2.7-7.7); Neutrophil % 81.4 % (47-70); Platelet Count 233 K/mm3 (150-450); RBC Distribution Width SD 46.6 fl (35.1-43.9); Red Blood Count 2.59 M/mm3 (4.6-6.2); White Blood Count 9.9 K/mm3 (4.4-11.0)
[2020-12-13 04:09] LABS: BUN 43 mg/dL (7-18); BUN/Creat Ratio 14.7 RATIO (10-20); Calcium,Total 8.5 mg/dL (8.5-10.1); Chloride 100 mmol/L (98-107); Creatinine, Serum 2.93 mg/dL (0.70-1.30); EST Glomerular Filtration Rate 22 mL/min (>60); Est Glom Filt Rate - Afr Amer 27 mL/min (>60); Glucose 287 mg/dL (74-106); Phosphorus 3.5 mg/dL (2.5-4.9); Potassium 4.3 mmol/L (3.5-5.1); Sodium Level 133 mmol/L (136-145)
--- NOTE | 2020-12-13 06:58 | PN.CC_ITS ---
Subjective Subjective: Patient did well overnight. No acute issues were reported. Patient did tolerate BiPAP therapy for approximately 4 hours. Patient is still requiring 6 L nasal cannula to maintain saturations. Patient states he feels his respiratory status has improved. Patient is not reporting any syncopal episodes or presyncopal sensation, but admits that he has not been out of bed. Objective Data Objective Data Vital Signs: Vital Signs Temp Pulse Resp BP Pulse Ox 36.8 C 67 20 H 145/53 H 96 12/13/20 03:00 12/13/20 06:00 12/13/20 06:00 12/13/20 06:00 12/13/20 06:00 Oxygen Flow Rate (L/min) 6 Oxygen Delivery Method Bi-pap Weight: 115.326 kg Body Mass Index (BMI) 29.7 Finger Stick Blood Glucose 123 Intake & Output: Intake and Output for Last 24 Hours 12/11/20 12/12/20 12/13/20 23:59 23:59 23:59 Intake Total 1475 / 1475 Output Total 1950 / 2100 770 / 770 Balance -475 / -625 -770 / -770 Lab / Micro Data Result Diagrams: 12/13/20 03:45 12/13/20 03:45 Labs: Laboratory Results - last 24 hr 12/12/20 12/12/20 12/12/20 00:58 04:05 10:00 WBC 10.5 RBC 2.43 L Hgb 7.2 L Hct 22.1 L MCV 90.9 MCH 29.6 MCHC 32.6 RDW Std Deviation 45.2 H RDW Coeff of Flavio 13.7 Plt Count 197 MPV 10.0 Immature Gran % (Auto) 1.000 H Neut % (Auto) 82.2 H Lymph % (Auto) 7.3 L [place] % (Auto) 9.1 Eos % (Auto) 0.2 Baso % (Auto) 0.2 Absolute Neuts (auto) 8.6 H Absolute Lymphs (auto) 0.76 L Nucleated RBC % 0 Sodium Potassium Chloride Carbon Dioxide Anion Gap BUN Creatinine Estim Creat Clear Calc Est GFR (MDRD) Af Amer Est GFR (MDRD) Non-Af BUN/Creatinine Ratio Glucose Lactic Acid 2.1 H* Calcium Phosphorus Total Bilirubin AST ALT Alkaline Phosphatase B-Natriuretic Peptide Total Protein Albumin Globulin Albumin/Globulin Ratio Urine Color Yellow Urine Clarity Clear Urine pH 5.0 Ur Specific [place] 1.020 Urine Protein 100 H Urine Glucose (UA) 250 H Urine Ketones Negative Urine Occult Blood 250 H Urine Nitrite Negative Urine Bilirubin Negative Urine Urobilinogen Normal Ur Leukocyte Esterase 25 H Urine RBC 5-10 SEEN Urine WBC 0-5 SEEN Ur Squamous Epith Cells 0-5 SEEN Urine Bacteria RARE Urine Mucus 0 SEEN Ur Random Sodium Urine Creatinine POC Glucose 12/12/20 12/12/20 12/12/20 10:00 11:46 14:15 WBC RBC Hgb 7.3 L Hct 22.5 L MCV MCH MCHC RDW Std Deviation RDW Coeff of Flavio Plt Count MPV Immature Gran % (Auto) Neut % (Auto) Lymph % (Auto) [place] % (Auto) Eos % (Auto) Baso % (Auto) Absolute Neuts (auto) Absolute Lymphs (auto) Nucleated RBC % Sodium 132 L Potassium 4.7 Chloride 100 Carbon Dioxide 26.0 Anion Gap 6 BUN 42 H Creatinine 3.21 H Estim Creat Clear Calc 23.33 Est GFR (MDRD) Af Amer 24 L Est GFR (MDRD) Non-Af 20 L BUN/Creatinine Ratio 13.1 Glucose 331 H Lactic Acid Calcium 8.3 L Phosphorus Total Bilirubin 0.90 AST 19 ALT 20 Alkaline Phosphatase 96 B-Natriuretic Peptide Total Protein 6.1 L Albumin 2.1 L Globulin 4.0 Albumin/Globulin Ratio 0.5 L Urine Color Urine Clarity Urine pH Ur Specific [place] Urine Protein Urine Glucose (UA) Urine Ketones Urine Occult Blood Urine Nitrite Urine Bilirubin Urine Urobilinogen Ur Leukocyte Esterase Urine RBC Urine WBC Ur Squamous Epith Cells Urine Bacteria Urine Mucus Ur Random Sodium Urine Creatinine POC Glucose 336 H 12/12/20 12/12/20 12/12/20 14:15 17:11 17:30 WBC RBC Hgb Hct MCV MCH MCHC RDW Std Deviation RDW Coeff of Flavio Plt Count MPV Immature Gran % (Auto) Neut % (Auto) Lymph % (Auto) [place] % (Auto) Eos % (Auto) Baso % (Auto) Absolute Neuts (auto) Absolute Lymphs (auto) Nucleated RBC % Sodium Potassium Chloride Carbon Dioxide Anion Gap BUN Creatinine Estim Creat Clear Calc Est GFR (MDRD) Af Amer Est GFR (MDRD) Non-Af BUN/Creatinine Ratio Glucose Lactic Acid Calcium Phosphorus Total Bilirubin AST ALT Alkaline Phosphatase B-Natriuretic Peptide 646.4 H Total Protein Albumin Globulin Albumin/Globulin Ratio Urine Color Urine Clarity Urine pH Ur Specific [place] Urine Protein Urine Glucose (UA) Urine Ketones Urine Occult Blood Urine Nitrite Urine Bilirubin Urine Urobilinogen Ur Leukocyte Esterase Urine RBC Urine WBC Ur Squamous Epith Cells Urine Bacteria Urine Mucus Ur Random Sodium 99 Urine Creatinine 20.60 POC Glucose 272 H 12/12/20 12/12/20 12/13/20 18:20 21:23 03:45 WBC 9.9 RBC 2.59 L Hgb 7.9 L 7.6 L Hct 24.5 L 23.6 L MCV 91.1 MCH 29.3 MCHC 32.2 RDW Std Deviation 46.6 H RDW Coeff of Flavio 14.0 Plt Count 233 MPV 9.8 Immature Gran % (Auto) 1.200 H Neut % (Auto) 81.4 H Lymph % (Auto) 7.6 L [place] % (Auto) 9.4 Eos % (Auto) 0.2 Baso % (Auto) 0.2 Absolute Neuts (auto) 8.1 H Absolute Lymphs (auto) 0.75 L Nucleated RBC % 0 Sodium Potassium Chloride Carbon Dioxide Anion Gap BUN Creatinine Estim Creat Clear Calc Est GFR (MDRD) Af Amer Est GFR (MDRD) Non-Af BUN/Creatinine Ratio Glucose Lactic Acid Calcium Phosphorus Total Bilirubin AST ALT Alkaline Phosphatase B-Natriuretic Peptide Total Protein Albumin Globulin Albumin/Globulin Ratio Urine Color Urine Clarity Urine pH Ur Specific [place] Urine Protein Urine Glucose (UA) Urine Ketones Urine Occult Blood Urine Nitrite Urine Bilirubin Urine Urobilinogen Ur Leukocyte Esterase Urine RBC Urine WBC Ur Squamous Epith Cells Urine Bacteria Urine Mucus Ur Random Sodium Urine Creatinine POC Glucose 256 H 12/13/20 03:45 WBC RBC Hgb Hct MCV MCH MCHC RDW Std Deviation RDW Coeff of Flavio Plt Count MPV Immature Gran % (Auto) Neut % (Auto) Lymph % (Auto) [place] % (Auto) Eos % (Auto) Baso % (Auto) Absolute Neuts (auto) Absolute Lymphs (auto) Nucleated RBC % Sodium 133 L Potassium 4.3 Chloride 100 Carbon Dioxide 26.0 Anion Gap BUN 43 H Creatinine 2.93 H Estim Creat Clear Calc 21.70 Est GFR (MDRD) Af Amer 27 L Est GFR (MDRD) Non-Af 22 L BUN/Creatinine Ratio 14.7 Glucose 287 H Lactic Acid Calcium 8.5 Phosphorus 3.5 Total Bilirubin AST ALT Alkaline Phosphatase B-Natriuretic Peptide Total Protein Albumin 2.0 L Globulin Albumin/Globulin Ratio Urine Color Urine Clarity Urine pH Ur Specific [place] Urine Protein Urine Glucose (UA) Urine Ketones Urine Occult Blood Urine Nitrite Urine Bilirubin Urine Urobilinogen Ur Leukocyte Esterase Urine RBC Urine WBC Ur Squamous Epith Cells Urine Bacteria Urine Mucus Ur Random Sodium Urine Creatinine POC Glucose Micro: Microbiology 12/12/20 02:50 Blood Culture (Wb) - Arm Left Blood Culture - Preliminary 12/12/20 08:30 Mucosa - Nasopharyngeal Respiratory Panel (PCR) - Final 12/12/20 00:05 Mucosa - Nose SARS-CoV-2 Antigen (Rapid) - Final Radiography Diagnostic Testing: Radiology Impression Chest X-Ray 12/12/20 00:00 IMPRESSION: Probable right basilar subsegmental atelectasis. If there is high clinical suspicion of pneumonia correlate with CT chest. Electronically Signed: Daniel Kam MD at 1:15 EDT , Service support , Chest CT 12/12/20 03:35 IMPRESSION: Mild cardiomegaly. Coronary calcifications. Small bilateral pleural effusions. Bilateral lower lobe subsegmental atelectasis versus pneumonia right greater than left. Scattered right upper lobe and right middle lobe groundglass opacities. Bilateral lower lobe peribronchial thickening. These findings probably represent multifocal pneumonia on the right, to include viral pneumonia, and possible left lower lobe pneumonia on the left. Cholelithiasis. Electronically Signed: Daniel Kam MD at 5:52 EDT , Service support , Physical Exam Const alert and oriented x3 Constitutional Narrative: Drowsy. Falling asleep during evaluation. Hard of hearing. General Appearance: cooperative, well developed and lethargic HEENT normocephalic and head/scalp atraumatic Eyes PERRL and EOMs intact bilaterally Neck full ROM Lymph Lymphatic: no lymphadenopathy noted Resp Effort and Inspection: Negative for actively coughing or uses accessory muscles Auscultation: diminished lung sounds; Negative for rales, rhonchi or wheezes Cardio regular rate, regular rhythm, S1 normal heart sound, S2 normal heart sound, no murmurs, no rub and no gallops GI normal to inspection, nondistended, normoactive bowel sounds Back/Spine no CVA tenderness Extremity General Extremity: edema bilateral lower extremity Details: trace Skin no rashes or lesions noted Skin Narrative: Stasis dermatitis noted on the lower extremities Neuro oriented x3 and CN's II-XII intact bilaterally Psych cooperative Mood & Affect: flat affect Assessment & Plan Assessment/Plan (1) Acute respiratory failure with hypoxia: Status: Acute Code(s): J96.01 - Acute respiratory failure with hypoxia Plan: Clinical suspicion for acute congestive heart failure leading to respiratory failure. Rales have significantly improved with diuresis. Improvement in renal function is suggestive of improved cardiac output secondary to diuresis. We will continue diuresis, but schedule every 8 hours. Patient has responded to BiPAP therapy thus far. We will need to verify the patient does not have hydronephrosis prior to administration of Lasix therapy. Continue BiPAP 12/6 centimeters of water with sleep and rescue if necessary. Okay to leave the intensive care unit from my perspective (2) HORACE (acute kidney injury): Status: Acute Code(s): N17.9 - Acute kidney failure, unspecified Plan: Patient with acute elevation in creatinine compared to previous. Renal ultrasound was not consistent with postobstructive uropathy. Patient did have a Liu placed, but renal function has improved with diuresis. This would suggest a prerenal etiology secondary to poor cardiac output secondary to volume overload. We will continue to monitor. (3) Anemia: Status: Chronic Code(s): D64.9 - Anemia, unspecified Plan: Unclear etiology at this time. Patient does run lower hemoglobin, but just recently was noted at 9+. Unclear if patient has an element of blood loss secondary to recent urologic procedure. Patient is not reporting any signs or symptoms of GI bleed at this time. Could check a Hemoccult stool if persist. We will hold on transfusion at this time. Called by radiology at approximately 7:15 AM. Patient appears to have a possible left perinephric hematoma noted on renal ultrasound by radiology. A CT without contrast has been ordered for better characterization. 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 Recommend transitioning to insulin therapy during the acute process. Sliding scale will be increased. (5) MACHELLE (obstructive sleep apnea): Status: Chronic Code(s): G47.33 - Obstructive sleep apnea (adult) (pediatric) Plan: Patient with subpar compliance as an outpatient. Patient understands that this will be necessary during the acute condition to avoid future complications. Patient should be on AVAPS versus BiPAP 12/6 centimeters of water with all sleep. (6) RLS (restless legs syndrome): Status: Chronic Plan: Okay to continue baseline ropinirole (7) Congestive heart failure (CHF): Status: Acute Code(s): I50.9 - Heart failure, unspecified Qualifiers: Heart failure chronicity: acute on chronic Heart failure type: diastolic Qualified Code(s): I50.33 - Acute on chronic diastolic (congestive) heart failure Plan: Patient with recent echocardiogram showing preserved ejection fraction. Patient with rapid improvement following diuresis. Renal function has improved indicating probable better cardiac efficiency. Patient did have a recent surgical procedure and may have had significant volume. (8) Dizziness: Status: Chronic Code(s): R42 - Dizziness and giddiness Plan: Unclear etiology. Patient may be having hypoxia leading to dizziness on presentation. Patient does have a significant history of cardiac arrhythmias. Continue with telemetry. (9) Status post laser lithotripsy of ureteral calculus: Status: Acute Code(s): Z98.890 - Other specified postprocedural states Plan: Liu has been placed. Patient with no hydronephrosis on ultrasound. (10) HLD (hyperlipidemia): Status: Chronic Code(s): E78.5 - Hyperlipidemia, unspecified Qualifiers: Hyperlipidemia type: pure hypercholesterolemia Qualified Code(s): E78.00 - Pure hypercholesterolemia, unspecified; E78.0 - Pure hypercholesterolemia Plan: Okay to continue statin (11) Essential (primary) hypertension: Status: Chronic Code(s): I10 - Essential (primary) hypertension Plan: Blood pressure appears to be well controlled at this time. Avoid MARIJA inhibitors given acute kidney injury Inpatient E&M: [id number] [facility] Hosp L3
--- NOTE | 2020-12-13 07:16 | CT_ITS ---
STUDY: CT ABDOMEN AND PELVIS WITHOUT CONTRAST REASON FOR EXAM: Male, 80 years old. perinephric hematoma RADIATION DOSAGE (If Supplied By Facility): CTDIvol = ( 20.68 ) mGy, DLP = ( 1286.64 ) mGycm TECHNIQUE: Transaxial images were obtained from the dome of the diaphragm to the symphysis pubis without oral contrast, and without intravenous contrast. Sagittal and coronal images were reconstructed. Individualized dose optimization techniques were used for this CT. COMPARISON: 10/17/2020 FINDINGS: Moderate bilateral pleural effusions with bibasilar atelectasis. The visualized portions of the heart are within normal limits. Normal liver. There are multiple gallstones. Normal spleen. Normal pancreas. Normal bilateral adrenal glands. Bilateral nonobstructing renal stones. There is fragmentation of the stone in the lower pole the right kidney possibly consistent with recent lithotripsy. There is mild hydronephrosis and ureteral dilatation on the right but no ureteral stone. There is a 3 mm stone in the base of the bladder which may represent a recently passed stone fragment. Multiple small left renal cysts. Fragmentation of the stone in the midsection the left kidney possibly consistent with recent lithotripsy. 3 x 11 cm crescent-shaped area of increased attenuation surrounding the kidney consistent with acute subcapsular hematoma with some spread into the left posterior pararenal space. Normal visualized stomach. Wall thickening of the duodenum worrisome for duodenitis. Correlation with endoscopy would be useful. There are multiple colonic diverticula consistent with diverticulosis. The appendix is visualized and appears normal. There is diffuse atherosclerotic calcification of the abdominal aorta, without a demonstrated aneurysm. Normal inferior vena cava. Normal retroperitoneum. Liu catheter within the collapsed bladder. There are prostatic calcifications. Normal abdominal wall. Normal osseous structures. CT/Abdomen/Pelvis without Cont IMPRESSION: 1. Moderate bilateral pleural effusions with bibasilar atelectasis. 2. Cholelithiasis. 3. Suspect duodenitis and correlation with endoscopy would be useful. 4. Bilateral nonobstructing renal stones with suspected interval lithotripsy. Mild hydronephrosis and ureteral dilatation on the right with 3 mm stone in the base of the bladder likely consistent with a recently passed stone fragment. 5. 3 x 11 cm acute subcapsular hematoma the left kidney with some hemorrhage in the left posterior pararenal space. 6. Liu catheter within the collapsed bladder. Electronically Signed: Vin Gibbs MD at 8:40 EDT Tel , Service support ,
[2020-12-13] MEDS: Insulin Lispro 100 UNIT/ML INSULN.PEN SC ×4 (08:08→23:06)
[2020-12-13] MEDS: Furosemide 40 MG/4 ML Vial IV ×3 (08:09→23:07)
--- NOTE | 2020-12-13 10:30 | PCM.CONS.B ---
Consult 80-year-old male who underwent treatment of bilateral renal calculi with shockwave lithotripsy. He was admitted to the hospital after the procedure for observation because of some confusion and changes he was then discharged in the hospital he then been readmitted to the hospital with shortness of breath and was in the intensive care unit CAT scan was done it did demonstrate a small hematoma self-limiting around the left kidney stones are broken up well there is no obstructing stones the right kidney stones are also broken up well. This hematoma is self-limiting and not expanding I would expect this to resolve on its own probably take about 6 weeks but no intervention is necessary by urology. Thanks for let me know the patient is in the hospital.
--- NOTE | 2020-12-13 10:58 | PCM.CONS.R ---
HPI Consult Data Date of Consult: 12/13/20 HPI Narrative HPI Narrative: MARY SAN, is a 80 M with past medical history as below who presents back to the hospital shortly after discharge because of progressive weakness. He had a recent hospitalization for syncope from December 06 December 10. He went home felt more short of breath and weak and came back to the emergency room. He was 85% on room air. He was given Levaquin fluid bolus on Lovenox and he became more hypoxic and short of breath so he was placed on BiPAP. His serum creatinine from a baseline of 1.21.1 increased to 3.5 which prompted renal consult today. BMP was slightly elevated at 736. Patient has a history of bilateral renal calculi with shockwave lithotripsy treatment. He was admitted for syncope after that. He was found to have a small hematoma self-limiting around the left kidney but no obstructing stones in the right kidney. Per urology the hematoma self-limiting and not expanding and they expect this to resolve on its own probably to take about 6 weeks but no intervention was deemed necessary by urology. Serum creatinine is today 2.9 from 3.5 on admission. Patient received IV Lasix yesterday but the creatinine improved again to 2.9. [facility] Medical History (Updated 12/12/20 @ 13:[address] Narayan Tanner MD) Anemia Anxiety and depression Atherosclerotic heart disease of [place] coronary artery without angina pectoris Back pain BMI 34.0-34.9,adult BPH (benign prostatic hyperplasia) BPPV (benign paroxysmal positional vertigo) Cardiac dysrhythmia De Quervain's tenosynovitis Dermatitis Diabetes mellitus Dizziness DM type 2 with diabetic peripheral neuropathy Dyslipidemia Essential (primary) hypertension Fall Fracture of great toe History of renal calculi HLD (hyperlipidemia) Loss of equilibrium Malaise Near syncope Open wound of left lower extremity Orthostatic hypotension MACHELLE (obstructive sleep apnea) Paroxysmal atrial flutter Pneumonia Polypharmacy RLS (restless legs syndrome) SVT (supraventricular tachycardia) Vertigo Home Medications finasteride 5 mg tablet 5 mg PO DAILY #90 tablet 11/03/18 [Rx Last Taken Unknown] flecainide 100 mg tablet 100 mg PO Q12H #180 tablet 02/10/20 [Rx Last Taken 12/06/20 12:31] simvastatin 20 mg tablet 20 mg PO QHS #90 tablet 05/10/20 [Rx Last Taken Unknown] pramipexole 1 mg tablet 2 mg PO QHS #180 tablet 08/23/20 [Rx Last Taken Unknown] dulaglutide 1.5 mg/0.5 mL subcutaneous pen injector 1.5 mg SC QWEEK 90 Days #6.5 ml 11/13/20 [Rx Last Taken Unknown] apremilast 30 mg PO BID 11/22/20 [History Last Taken Unknown] levomilnacipran 40 mg PO DAILY 11/22/20 [History Last Taken Unknown] metoprolol succinate 25 mg tablet,extended release 24 hr 75 mg PO BID 90 Days #540 tablet 11/24/20 [Rx Last Taken 12/06/20 12:31] amlodipine 5 mg tablet 5 mg PO BID #180 tablet 12/05/20 [Rx Last Taken 12/06/20 12:31] ciprofloxacin HCl 500 mg PO BID #10 tab 12/06/20 [Rx Last Taken Unknown] oxycodone-acetaminophen 1 tablet PO Q4H PRN PRN 7 Days #14 tab 12/06/20 [Rx Last Taken Unknown] Allergy/AdvReac Type Severity Reaction Status Date / Time hydrocodone bitartrate Allergy Other Verified 12/11/20 23:18 [From Vicodin] hydroxyzine AdvReac Other Verified 12/11/20 23:18 Family History Father Diabetes Hypertension Cancer Lung cancer Mother Hypertension CVA (cerebral vascular accident) Sister Diabetes Son Diabetes Surgical History History of cardioversion (2015) History of cataract surgery History of left heart catheterization (02/16/13) History of radiofrequency ablation procedure for cardiac arrhythmia (02/05/06) history of right knee cap fracture History of right knee surgery Status post left foot surgery STENT PLACEMENT FOR KIDNEY STONE Social History Smoking Status: Former smoker how long ago did patient quit smokin second hand exposure: No alcohol intake: never substance use type: does not use caffeine: No what type of physical activity do you participate in: none seatbelt use: always do you feel safe at home: Yes Lab / Micro Data Result Diagrams: 12/13/20 03:45 12/13/20 03:45 Labs: Laboratory Results - last 24 hr 12/12/20 12/12/20 12/12/20 00:58 11:46 14:15 WBC RBC Hgb 7.3 L Hct 22.5 L MCV MCH MCHC RDW Std Deviation RDW Coeff of Flavio Plt Count MPV Immature Gran % (Auto) Neut % (Auto) Lymph % (Auto) [place] % (Auto) Eos % (Auto) Baso % (Auto) Absolute Neuts (auto) Absolute Lymphs (auto) Nucleated RBC % Sodium Potassium Chloride Carbon Dioxide BUN Creatinine Estim Creat Clear Calc Est GFR (MDRD) Af Amer Est GFR (MDRD) Non-Af BUN/Creatinine Ratio Glucose Calcium Phosphorus B-Natriuretic Peptide Albumin Urine Color Yellow Urine Clarity Clear Urine pH 5.0 Ur Specific [place] 1.020 Urine Protein 100 H Urine Glucose (UA) 250 H Urine Ketones Negative Urine Occult Blood 250 H Urine Nitrite Negative Urine Bilirubin Negative Urine Urobilinogen Normal Ur Leukocyte Esterase 25 H Urine RBC 5-10 SEEN Urine WBC 0-5 SEEN Ur Squamous Epith Cells 0-5 SEEN Urine Bacteria RARE Urine Mucus 0 SEEN Ur Random Sodium Urine Creatinine POC Glucose 336 H 12/12/20 12/12/20 12/12/20 14:15 17:11 17:30 WBC RBC Hgb Hct MCV MCH MCHC RDW Std Deviation RDW Coeff of Flavio Plt Count MPV Immature Gran % (Auto) Neut % (Auto) Lymph % (Auto) [place] % (Auto) Eos % (Auto) Baso % (Auto) Absolute Neuts (auto) Absolute Lymphs (auto) Nucleated RBC % Sodium Potassium Chloride Carbon Dioxide BUN Creatinine Estim Creat Clear Calc Est GFR (MDRD) Af Amer Est GFR (MDRD) Non-Af BUN/Creatinine Ratio Glucose Calcium Phosphorus B-Natriuretic Peptide 646.4 H Albumin Urine Color Urine Clarity Urine pH Ur Specific [place] Urine Protein Urine Glucose (UA) Urine Ketones Urine Occult Blood Urine Nitrite Urine Bilirubin Urine Urobilinogen Ur Leukocyte Esterase Urine RBC Urine WBC Ur Squamous Epith Cells Urine Bacteria Urine Mucus Ur Random Sodium 99 Urine Creatinine 20.60 POC Glucose 272 H 12/12/20 12/12/20 12/13/20 18:20 21:23 03:45 WBC 9.9 RBC 2.59 L Hgb 7.9 L 7.6 L Hct 24.5 L 23.6 L MCV 91.1 MCH 29.3 MCHC 32.2 RDW Std Deviation 46.6 H RDW Coeff of Flavio 14.0 Plt Count 233 MPV 9.8 Immature Gran % (Auto) 1.200 H Neut % (Auto) 81.4 H Lymph % (Auto) 7.6 L [place] % (Auto) 9.4 Eos % (Auto) 0.2 Baso % (Auto) 0.2 Absolute Neuts (auto) 8.1 H Absolute Lymphs (auto) 0.75 L Nucleated RBC % 0 Sodium Potassium Chloride Carbon Dioxide BUN Creatinine Estim Creat Clear Calc Est GFR (MDRD) Af Amer Est GFR (MDRD) Non-Af BUN/Creatinine Ratio Glucose Calcium Phosphorus B-Natriuretic Peptide Albumin Urine Color Urine Clarity Urine pH Ur Specific [place] Urine Protein Urine Glucose (UA) Urine Ketones Urine Occult Blood Urine Nitrite Urine Bilirubin Urine Urobilinogen Ur Leukocyte Esterase Urine RBC Urine WBC Ur Squamous Epith Cells Urine Bacteria Urine Mucus Ur Random Sodium Urine Creatinine POC Glucose 256 H 12/13/20 03:45 WBC RBC Hgb Hct MCV MCH MCHC RDW Std Deviation RDW Coeff of Flavio Plt Count MPV Immature Gran % (Auto) Neut % (Auto) Lymph % (Auto) [place] % (Auto) Eos % (Auto) Baso % (Auto) Absolute Neuts (auto) Absolute Lymphs (auto) Nucleated RBC % Sodium 133 L Potassium 4.3 Chloride 100 Carbon Dioxide 26.0 BUN 43 H Creatinine 2.93 H Estim Creat Clear Calc 21.70 Est GFR (MDRD) Af Amer 27 L Est GFR (MDRD) Non-Af 22 L BUN/Creatinine Ratio 14.7 Glucose 287 H Calcium 8.5 Phosphorus 3.5 B-Natriuretic Peptide Albumin 2.0 L Urine Color Urine Clarity Urine pH Ur Specific [place] Urine Protein Urine Glucose (UA) Urine Ketones Urine Occult Blood Urine Nitrite Urine Bilirubin Urine Urobilinogen Ur Leukocyte Esterase Urine RBC Urine WBC Ur Squamous Epith Cells Urine Bacteria Urine Mucus Ur Random Sodium Urine Creatinine POC Glucose Micro: Microbiology 12/12/20 02:50 Blood Culture - Preliminary Blood Culture (Wb) - Arm Left 12/12/20 08:30 Respiratory Panel (PCR) - Final Mucosa - Nasopharyngeal 12/12/20 00:05 SARS-CoV-2 Antigen (Rapid) - Final Mucosa - Nose Radiology Impression Chest X-Ray 12/12/20 00:00 IMPRESSION: Probable right basilar subsegmental atelectasis. If there is high clinical suspicion of pneumonia correlate with CT chest. Electronically Signed: Daniel Kam MD at 1:15 EDT , Service support , Renal Ultrasound 12/12/20 13:14 IMPRESSION: Left-sided perinephric hematoma, for which a noncontrast CT scan of the chest is recommended. This measures up to 11.5 x 2.3. Benign-appearing left renal cyst. Benign-appearing bilateral renal cysts. Electronically Signed: Kavitha Justin MD at 7:12 EDT Tel , Service support , ADDENDUM: 12/13/20 0722 IMPRESSION: Left-sided perinephric hematoma, for which a noncontrast CT scan of the chest is recommended. This measures up to 11.5 x 2.3. Benign-appearing left renal cyst. Benign-appearing bilateral renal cysts. N.B. : The above information has been verbally conveyed by Kavitha Justin MD to Narayan Tanner MD, on 12/13/2020 07:15:19 (ET). Electronically Signed: Kavitha Justin MD at 7:12 EDT Tel , Service support , Abdomen/Pelvis CT 12/13/20 07:16 IMPRESSION: 1. Moderate bilateral pleural effusions with bibasilar atelectasis. 2. Cholelithiasis. 3. Suspect duodenitis and correlation with endoscopy would be useful. 4. Bilateral nonobstructing renal stones with suspected interval lithotripsy. Mild hydronephrosis and ureteral dilatation on the right with 3 mm stone in the base of the bladder likely consistent with a recently passed stone fragment. 5. 3 x 11 cm acute subcapsular hematoma the left kidney with some hemorrhage in the left posterior pararenal space. 6. Liu catheter within the collapsed bladder. Electronically Signed: Vin Gibbs MD at 8:40 EDT Tel , Service support ,
--- NOTE | 2020-12-13 11:00 | CASEMGMT ---
TIMOTHY LOPEZ NOTE: Call placed to [facility] and spoke w/Cyndie. Cyndie states they are aware pt has been re-admitted to [facility]. Allie BALDWIN RN CM
[2020-12-13] MEDS: amLODIPine 5 MG Tablet PO ×2 (11:42→23:07)
[2020-12-13] MEDS: Metoprolol(XL)Succ 25 MG Tablet 75 MG PO ×2 (11:43→23:07)
[2020-12-13] MEDS: Finasteride 5 MG Tablet PO (11:43)
[2020-12-13 11:45] LABS: Bedside Glucose 315 mg/dL (70-110)
--- NOTE | 2020-12-13 13:39 | PN.HOSP_ITS ---
Subjective Subjective: Patient was seen and examined. He feels improved. He has been diuresing a lot. Denied any progressive shortness of breath or chest pain. He is on 6 L of oxygen Objective Data Objective Data Vital Signs: Vital Signs Temp Pulse Resp BP Pulse Ox 97.8 F 71 22 H 122/79 H 96 12/13/20 08:00 12/13/20 11:43 12/13/20 11:00 12/13/20 11:00 12/13/20 11:25 Oxygen Flow Rate (L/min) 4 Oxygen Delivery Method Room Air Weight: 115.326 kg Body Mass Index (BMI) 29.7 Finger Stick Blood Glucose 123 Intake & Output: Intake and Output for Last 24 Hours 12/11/20 12/12/20 12/13/20 23:59 23:59 23:59 Intake Total 1475 / 1475 Output Total 1949 / 2099 Balance -475 / -625 -1969 Lab / Micro Data Result Diagrams: 12/13/20 03:45 12/13/20 03:45 Labs: Laboratory Results - last 24 hr 12/12/20 12/12/20 12/12/20 14:15 14:15 17:11 WBC RBC Hgb 7.3 L Hct 22.5 L MCV MCH MCHC RDW Std Deviation RDW Coeff of Flavio Plt Count MPV Immature Gran % (Auto) Neut % (Auto) Lymph % (Auto) [place] % (Auto) Eos % (Auto) Baso % (Auto) Absolute Neuts (auto) Absolute Lymphs (auto) Nucleated RBC % Sodium Potassium Chloride Carbon Dioxide BUN Creatinine Estim Creat Clear Calc Est GFR (MDRD) Af Amer Est GFR (MDRD) Non-Af BUN/Creatinine Ratio Glucose Calcium Phosphorus B-Natriuretic Peptide 646.4 H Albumin Ur Random Sodium Urine Creatinine POC Glucose 272 H 12/12/20 12/12/20 12/12/20 17:30 18:20 21:23 WBC RBC Hgb 7.9 L Hct 24.5 L MCV MCH MCHC RDW Std Deviation RDW Coeff of Flavio Plt Count MPV Immature Gran % (Auto) Neut % (Auto) Lymph % (Auto) [place] % (Auto) Eos % (Auto) Baso % (Auto) Absolute Neuts (auto) Absolute Lymphs (auto) Nucleated RBC % Sodium Potassium Chloride Carbon Dioxide BUN Creatinine Estim Creat Clear Calc Est GFR (MDRD) Af Amer Est GFR (MDRD) Non-Af BUN/Creatinine Ratio Glucose Calcium Phosphorus B-Natriuretic Peptide Albumin Ur Random Sodium 99 Urine Creatinine 20.60 POC Glucose 256 H 12/13/20 12/13/20 12/13/20 03:45 03:45 11:35 WBC 9.9 RBC 2.59 L Hgb 7.6 L Hct 23.6 L MCV 91.1 MCH 29.3 MCHC 32.2 RDW Std Deviation 46.6 H RDW Coeff of Flavio 14.0 Plt Count 233 MPV 9.8 Immature Gran % (Auto) 1.200 H Neut % (Auto) 81.4 H Lymph % (Auto) 7.6 L [place] % (Auto) 9.4 Eos % (Auto) 0.2 Baso % (Auto) 0.2 Absolute Neuts (auto) 8.1 H Absolute Lymphs (auto) 0.75 L Nucleated RBC % 0 Sodium 133 L Potassium 4.3 Chloride 100 Carbon Dioxide 26.0 BUN 43 H Creatinine 2.93 H Estim Creat Clear Calc 21.70 Est GFR (MDRD) Af Amer 27 L Est GFR (MDRD) Non-Af 22 L BUN/Creatinine Ratio 14.7 Glucose 287 H Calcium 8.5 Phosphorus 3.5 B-Natriuretic Peptide Albumin 2.0 L Ur Random Sodium Urine Creatinine POC Glucose 315 H Micro: Microbiology 12/12/20 02:50 Blood Culture (Wb) - Arm Left Blood Culture - Preliminary 12/12/20 08:30 Mucosa - Nasopharyngeal Respiratory Panel (PCR) - Final 12/12/20 00:05 Mucosa - Nose SARS-CoV-2 Antigen (Rapid) - Final Radiography Diagnostic Testing: Radiology Impression Renal Ultrasound 12/12/20 13:14 IMPRESSION: Left-sided perinephric hematoma, for which a noncontrast CT scan of the chest is recommended. This measures up to 11.5 x 2.3. Benign-appearing left renal cyst. Benign-appearing bilateral renal cysts. Electronically Signed: Kavitha Justin MD at 7:12 EDT Tel , Service support , ADDENDUM: 12/13/20 0722 IMPRESSION: Left-sided perinephric hematoma, for which a noncontrast CT scan of the chest is recommended. This measures up to 11.5 x 2.3. Benign-appearing left renal cyst. Benign-appearing bilateral renal cysts. N.B. : The above information has been verbally conveyed by Kavitha Justin MD to Narayan Tanner MD, on 12/13/2020 07:15:19 (ET). Electronically Signed: Kavitha Justin MD at 7:12 EDT Tel , Service support , Abdomen/Pelvis CT 12/13/20 07:16 IMPRESSION: 1. Moderate bilateral pleural effusions with bibasilar atelectasis. 2. Cholelithiasis. 3. Suspect duodenitis and correlation with endoscopy would be useful. 4. Bilateral nonobstructing renal stones with suspected interval lithotripsy. Mild hydronephrosis and ureteral dilatation on the right with 3 mm stone in the base of the bladder likely consistent with a recently passed stone fragment. 5. 3 x 11 cm acute subcapsular hematoma the left kidney with some hemorrhage in the left posterior pararenal space. 6. Liu catheter within the collapsed bladder. Electronically Signed: Vin Gibbs MD at 8:40 EDT Tel , Service support , Physical Exam Narrative General: Alert, Oriented x3, Cooperative, No apparent distress, Well developed, obese, on 6 L of oxygen HEENT: Atraumatic Oral: Moist Mucosa Neck: Supple Lungs: Diminished, improved crackles at the lung bases Cardiovascular: HS I+II, regular, no murmurs Abdomen: Bowel Sounds Present, Soft, Non Tender Extremities: Bilateral pedal edema +1 Skin: No rashes, No breakdown Neurological: Grossly intact Psych/Mental Status: Appropriate Assessment & Plan Assessment/Plan (1) HORACE (acute kidney injury): Status: Acute Code(s): N17.9 - Acute kidney failure, unspecified (2) Congestive heart failure (CHF): Status: Acute Code(s): I50.9 - Heart failure, unspecified Qualifiers: Heart failure type: diastolic Heart failure chronicity: acute on chronic Qualified Code(s): I50.33 - Acute on chronic diastolic (congestive) heart failure (3) Acute respiratory failure with hypoxia: Status: Acute Code(s): J96.01 - Acute respiratory failure with hypoxia (4) Anemia: Status: Chronic Code(s): D64.9 - Anemia, unspecified Qualifiers: Anemia type: other cause Other causes of anemia: other cause, not classified Qualified Code(s): D64.89 - Other specified anemias Plan: Continue to wean off oxygen for SPO2 more than 94% IV Lasix 40 mg q8h Nephrology and urology consult Continue with breathing treatment Repeat CBCD and renal profile in a.m. (5) Kidney hematoma: Status: Acute Code(s): S37.019A - Minor contusion of unspecified kidney, initial encounter
[2020-12-13 14:11] LABS: Ferritin 233 ng/mL (26-388); Iron 15 ug/dL (65-175); Iron Binding Capacity,Total 226 ug/dL (250-450)
--- NOTE | 2020-12-13 14:23 | CASEMGMT ---
Family Consumer Science Teacher said patient was asking who he should talk to about assisted living. SW met with patient, introduced self and role at [facility]. SW asked patient what questions he had. He just wanted general information. SW went over some of the information about assisted living. SIMONA explained that insurance does not pay for it. SW did give him a list of assisted living facilities. SIMONA told him the best thing to do would be to call the different facilities to check on pricing and their requirements. SIMONA told him if he has any other questions he can always ask for SW and someone will let us know. He thanked SIMONA. Naz Phipps ENGINEERING ASSOCIATE [employer]IK
--- NOTE | 2020-12-13 15:40 | CON.PCM.RE_ITS ---
Assessment & Plan Assessment/Plan (1) CKD stage 3 due to type 2 diabetes mellitus: Status: Chronic Code(s): E11.22 - Type 2 diabetes mellitus with diabetic chronic kidney disease; N18.30 - Chronic kidney disease, stage 3 unspecified Plan: 1. Acute on CKD stage III suspected to obstructive uropathy from nephro lithiasis. Ureteral stent with lithotripsy early November with mild hydronephrosis on the right, left perinephric hematoma. Continue to monitor renal function. Creatinine improved from 3.2 on admission to 2.9 today. Baseline creatinine 1.13 from September 2019. Underlying diabetic nephropathy. No recent IV contrast exposure 2. Diastolic congestive heart failure with bilateral pleural effusion. Continue with IV Lasix. Shortness of breath improving. 3. Iron deficiency anemia recommend IV iron therapy while in the hospital. Continue oral iron therapy on discharge. 4. Morbid obesity (2) HORACE (acute kidney injury): Status: Acute Code(s): N17.9 - Acute kidney failure, unspecified (3) Kidney hematoma: Status: Acute Code(s): S37.019A - Minor contusion of unspecified kidney, initial encounter (4) Urolithiasis: Status: Acute Code(s): N20.9 - Urinary calculus, unspecified Qualifiers: Urinary calculus location: kidney Qualified Code(s): N20.0 - Calculus of kidney (5) Diabetic kidney disease: Status: Acute Code(s): E11.21 - Type 2 diabetes mellitus with diabetic nephropathy (6) Acute respiratory failure with hypoxia: Status: Acute Code(s): J96.01 - Acute respiratory failure with hypoxia (7) Congestive heart failure (CHF): Status: Acute Code(s): I50.9 - Heart failure, unspecified Qualifiers: Heart failure type: diastolic Heart failure chronicity: acute on chronic Qualified Code(s): I50.33 - Acute on chronic diastolic (congestive) heart failure (8) Iron deficiency anemia: Status: Acute Code(s): D50.9 - Iron deficiency anemia, unspecified (9) 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 Code(s): E11.42 - Type 2 diabetes mellitus with diabetic polyneuropathy (10) Hypertension: Status: Chronic Code(s): I10 - Essential (primary) hypertension (11) Hyponatremia: Status: Acute Code(s): E87.1 - Hypo-osmolality and hyponatremia Plan: likely from volume expansion, continue with diureticcs HPI Consult Data Date of Consult: 12/13/20 HPI Narrative HPI Narrative: MARY SAN, is a 80 M well-known to me with CKD stage III due to diabetic nephropathy Baseline creatinine 1.13 with 2 g of proteinuria presents to [facility] with progressive shortness of breath for the past week. Chest x-ray revealed infiltrates with pleural effusion. He was started on IV Lasix. He denies any chest pain, cough, fever or chills. Creatinine on admission was 3.2 on 12/12 down to 2.9 today. He underwent lithotripsy with ureteral stent placement for kidney stones early November. Subsequently hospitalized 12/06-12/08 for syncopal episode with fall. CT of abdomen and renal ultrasound showed hematoma around the left kidney. He denied any gross hematuria however he did notice some left flank pain. [facility] Medical History (Updated 12/13/20 @ 15:[address] Mariia Field, ) Anemia Anxiety and depression Atherosclerotic heart disease of [place] coronary artery without angina pectoris Back pain BMI 34.0-34.9,adult BPH (benign prostatic hyperplasia) BPPV (benign paroxysmal positional vertigo) Cardiac dysrhythmia De Quervain's tenosynovitis Dermatitis Diabetes mellitus Dizziness DM type 2 with diabetic peripheral neuropathy Dyslipidemia Essential (primary) hypertension Fall Fracture of great toe History of renal calculi HLD (hyperlipidemia) Loss of equilibrium Malaise Near syncope Open wound of left lower extremity Orthostatic hypotension MACHELLE (obstructive sleep apnea) Paroxysmal atrial flutter Pneumonia Polypharmacy RLS (restless legs syndrome) SVT (supraventricular tachycardia) Vertigo Home Medications finasteride 5 mg tablet 5 mg PO DAILY #90 tablet 11/03/18 [Rx Last Taken Unknown] flecainide 100 mg tablet 100 mg PO Q12H #180 tablet 02/10/20 [Rx Last Taken 12/06/20 12:31] simvastatin 20 mg tablet 20 mg PO QHS #90 tablet 05/10/20 [Rx Last Taken Unknown] pramipexole 1 mg tablet 2 mg PO QHS #180 tablet 08/23/20 [Rx Last Taken Unknown] dulaglutide 1.5 mg/0.5 mL subcutaneous pen injector 1.5 mg SC QWEEK 90 Days #6.5 ml 11/13/20 [Rx Last Taken Unknown] apremilast 30 mg PO BID 11/22/20 [History Last Taken Unknown] levomilnacipran 40 mg PO DAILY 11/22/20 [History Last Taken Unknown] metoprolol succinate 25 mg tablet,extended release 24 hr 75 mg PO BID 90 Days #540 tablet 11/24/20 [Rx Last Taken 12/06/20 12:31] amlodipine 5 mg tablet 5 mg PO BID #180 tablet 12/05/20 [Rx Last Taken 12/06/20 12:31] ciprofloxacin HCl 500 mg PO BID #10 tab 12/06/20 [Rx Last Taken Unknown] oxycodone-acetaminophen 1 tablet PO Q4H PRN PRN 7 Days #14 tab 12/06/20 [Rx Last Taken Unknown] Allergy/AdvReac Type Severity Reaction Status Date / Time hydrocodone bitartrate Allergy Other Verified 12/11/20 23:18 [From Vicodin] hydroxyzine AdvReac Other Verified 12/11/20 23:18 Family History Father Diabetes Hypertension Cancer Lung cancer Mother Hypertension CVA (cerebral vascular accident) Sister Diabetes Son Diabetes Surgical History History of cardioversion (2015) History of cataract surgery History of left heart catheterization (02/16/13) History of radiofrequency ablation procedure for cardiac arrhythmia (02/05/06) history of right knee cap fracture History of right knee surgery Status post left foot surgery STENT PLACEMENT FOR KIDNEY STONE Social History Smoking Status: Former smoker how long ago did patient quit smokin second hand exposure: No alcohol intake: never substance use type: does not use caffeine: No what type of physical activity do you participate in: none seatbelt use: always do you feel safe at home: Yes ROS Constitutional Constitutional: Denies chills or fever(s) Eyes Eyes: Denies blurry vision Cardiovascular Cardiovascular: Reports dyspnea on exertion; Denies chest pain or leg edema Respiratory/Chest Respiratory/Chest: Reports shortness of breath at rest; Denies hemoptysis Gastrointestinal Gastrointestinal: Denies nausea or vomiting Genitourinary Genitourinary: Reports flank pain and other Details: recent ureteral stent with lithotripsy ; Denies dysuria or hematuria Musculoskeletal Musculoskeletal: Denies joint swelling Neurologic Neurologic: Reports weakness; Denies abnormal gait Psychiatric Psychiatric: Reports anxiety and depression Hematologic/Lymphatic Hematologic/Lymphatic: Reports anemia and other Details: iron deficiency Physical Exam Const alert and oriented x3 HEENT normocephalic Eyes PERRL and EOMs intact bilaterally Resp Auscultation: crackles right and rhonchi Cardio regular rate GI non-tender and non-distended Auscultation: normoactive bowel sounds Palpation: soft Narrative: stent, lithotripsy, left flank/groin pain Extremity no clubbing, cyanosis or edema Neuro Motor Exam: no tremor Psych cooperative Lab / Micro Data Result Diagrams: 12/13/20 03:45 12/13/20 03:45 Labs: Laboratory Results - last 24 hr 12/12/20 12/12/20 12/12/20 17:11 17:30 18:20 WBC RBC Hgb 7.9 L Hct 24.5 L MCV MCH MCHC RDW Std Deviation RDW Coeff of Flavio Plt Count MPV Immature Gran % (Auto) Neut % (Auto) Lymph % (Auto) [place] % (Auto) Eos % (Auto) Baso % (Auto) Absolute Neuts (auto) Absolute Lymphs (auto) Nucleated RBC % Sodium Potassium Chloride Carbon Dioxide BUN Creatinine Estim Creat Clear Calc Est GFR (MDRD) Af Amer Est GFR (MDRD) Non-Af BUN/Creatinine Ratio Glucose Calcium Phosphorus Iron TIBC Ferritin Albumin Ur Random Sodium 99 Urine Creatinine 20.60 POC Glucose 272 H 12/12/20 12/13/20 12/13/20 21:23 03:45 03:45 WBC 9.9 RBC 2.59 L Hgb 7.6 L Hct 23.6 L MCV 91.1 MCH 29.3 MCHC 32.2 RDW Std Deviation 46.6 H RDW Coeff of Flavio 14.0 Plt Count 233 MPV 9.8 Immature Gran % (Auto) 1.200 H Neut % (Auto) 81.4 H Lymph % (Auto) 7.6 L [place] % (Auto) 9.4 Eos % (Auto) 0.2 Baso % (Auto) 0.2 Absolute Neuts (auto) 8.1 H Absolute Lymphs (auto) 0.75 L Nucleated RBC % 0 Sodium 133 L Potassium 4.3 Chloride 100 Carbon Dioxide 26.0 BUN 43 H Creatinine 2.93 H Estim Creat Clear Calc 21.70 Est GFR (MDRD) Af Amer 27 L Est GFR (MDRD) Non-Af 22 L BUN/Creatinine Ratio 14.7 Glucose 287 H Calcium 8.5 Phosphorus 3.5 Iron TIBC Ferritin Albumin 2.0 L Ur Random Sodium Urine Creatinine POC Glucose 256 H 12/13/20 12/13/20 03:45 11:35 WBC RBC Hgb Hct MCV MCH MCHC RDW Std Deviation RDW Coeff of Flavio Plt Count MPV Immature Gran % (Auto) Neut % (Auto) Lymph % (Auto) [place] % (Auto) Eos % (Auto) Baso % (Auto) Absolute Neuts (auto) Absolute Lymphs (auto) Nucleated RBC % Sodium Potassium Chloride Carbon Dioxide BUN Creatinine Estim Creat Clear Calc Est GFR (MDRD) Af Amer Est GFR (MDRD) Non-Af BUN/Creatinine Ratio Glucose Calcium Phosphorus Iron 15 L TIBC 226 L Ferritin 233 Albumin Ur Random Sodium Urine Creatinine POC Glucose 315 H Micro: Microbiology 12/12/20 02:50 Blood Culture - Preliminary Blood Culture (Wb) - Arm Left 12/12/20 08:30 Respiratory Panel (PCR) - Final Mucosa - Nasopharyngeal Radiology Impression Renal Ultrasound 12/12/20 13:14 IMPRESSION: Left-sided perinephric hematoma, for which a noncontrast CT scan of the chest is recommended. This measures up to 11.5 x 2.3. Benign-appearing left renal cyst. Benign-appearing bilateral renal cysts. Electronically Signed: Kavitha Justin MD at 7:12 EDT Tel , Service support , ADDENDUM: 12/13/20 0722 IMPRESSION: Left-sided perinephric hematoma, for which a noncontrast CT scan of the chest is recommended. This measures up to 11.5 x 2.3. Benign-appearing left renal cyst. Benign-appearing bilateral renal cysts. N.B. : The above information has been verbally conveyed by Kavitha Justin MD to Narayan Tanner MD, on 12/13/2020 07:15:19 (ET). Electronically Signed: Kavitha Justin MD at 7:12 EDT Tel , Service support , Abdomen/Pelvis CT 12/13/20 07:16 IMPRESSION: 1. Moderate bilateral pleural effusions with bibasilar atelectasis. 2. Cholelithiasis. 3. Suspect duodenitis and correlation with endoscopy would be useful. 4. Bilateral nonobstructing renal stones with suspected interval lithotripsy. Mild hydronephrosis and ureteral dilatation on the right with 3 mm stone in the base of the bladder likely consistent with a recently passed stone fragment. 5. 3 x 11 cm acute subcapsular hematoma the left kidney with some hemorrhage in the left posterior pararenal space. 6. Liu catheter within the collapsed bladder. Electronically Signed: Vin Gibbs MD at 8:40 EDT Tel , Service support ,
--- NOTE | 2020-12-13 15:57 | CASEMGMT ---
Pt screened with [facility] Palliative Care Screening Tool, pt met criteria. Referral faxed to Palliative Care and follow up phone call made for receipt of referral, left voicemail.
--- NOTE | 2020-12-13 16:16 | CHAPLAIN ---
Type of Pastoral Visit _x__ Initial Visit ___ Follow-up Visit ___ On-call Visit ___ General Patient Visit ___ Spiritual Assessment ___ Family Conference ___ Bereavement ___ Rapid Response ___ Code Blue ___ Other (describe below) Pastoral Care Referral From _x__ Patient ___ Family _x__ Nurse ___ Physician ___ Antenna Rigger ___ Computer Programmer Chief ___ Other (describe below) Sacrament/Intervention _x__ Active listening ___ Anointing ___ Latter Day ___ Bereavement ___ Communion _x__ Ariadna exploration ___ _x__ Life review _x__ Prayer ___ Reconciliation ___ Sacrament of Sick _x__ Supportive presence ___ Wedding ___ Other (describe below) Pastoral Comments patient had become aware of more health issues this morning and had requested spiritual care support;
[2020-12-13 17:15] LABS: Bedside Glucose 287 mg/dL (70-110)
[2020-12-13 23:10] LABS: Bedside Glucose 270 mg/dL (70-110)
[2020-12-14] VITALS (11 sets, daily range): BP systolic 130–139; BP diastolic 58–70; PULSE 74–84; RESP 16–18; TEMP 36.5–36.9; O2SAT 94–96
[2020-12-14] MEDS: Furosemide 40 MG/4 ML Vial IV (05:09)
[2020-12-14] MEDS: Insulin Lispro 100 UNIT/ML INSULN.PEN SC ×4 (06:39→21:08)
[2020-12-14 06:41] LABS: Absolute Lymphocyte Count 1.15 X10^3/uL (0.83-4.51); Absolute Neutrophil Count 6.6 X10^3/uL (2.0-7.7); Basophil# 0.05 X10^3/uL; Basophil% 0.6 % (0-1); Eosinophil# 0.11 X10^3/uL; Eosinophils% 1.3 % (0-5); Hematocrit 25.7 % (40-54); Hemoglobin 8.2 g/dL (13.0-16.5); Lymphocyte # 1.15 X10^3/ul (0.83-4.51); Lymphocyte % 13.1 % (19-41); Mean Corp Hgb Conc 31.9 g/dL (32-36); Mean Corpuscular Hgb 29.5 pg (27.0-32.0); Mean Corpuscular Volume 92.4 fL (80-94); Mean Platelet Vol. 9.7 fl (6.2-12.0); Monocyte# 0.78 X10^3/uL; Monocyte% 8.9 % (0-10); NRBC Flagged by Analyzer 0 % (0-5); Neutrophil # 6.56 X10^3/uL (2.7-7.7); Neutrophil % 74.8 % (47-70); Platelet Count 294 K/mm3 (150-450); RBC Distribution Width CV 14.1 % (11.6-14.6); RBC Distribution Width SD 47.4 fl (35.1-43.9); Red Blood Count 2.78 M/mm3 (4.6-6.2); White Blood Count 8.8 K/mm3 (4.4-11.0)
[2020-12-14 06:45] LABS: Bedside Glucose 262 mg/dL (70-110)
[2020-12-14 07:05] LABS: Albumin, Serum 2.1 g/dL (3.2-5.0); BUN 41 mg/dL (7-18); BUN/Creat Ratio 21.4 RATIO (10-20); Calcium,Total 8.7 mg/dL (8.5-10.1); Chloride 100 mmol/L (98-107); Creatinine, Serum 1.92 mg/dL (0.70-1.30); EST Glomerular Filtration Rate 36 mL/min (>60); Est Glom Filt Rate - Afr Amer 43 mL/min (>60); Estimated Creatinine Clearance 33.12 ml/min; Glucose 252 mg/dL (74-106); Phosphorus 3.8 mg/dL (2.5-4.9); Potassium 3.6 mmol/L (3.5-5.1); Sodium Level 136 mmol/L (136-145)
--- NOTE | 2020-12-14 07:48 | PN.CC_ITS ---
Subjective Subjective: Patient transferred from the intensive care unit yesterday. Patient up in the chair. No respiratory complaints at this time. Patient has been weaned to room air. No cough is been reported. Patient is not reporting any back pain. Patient does admit that he has not walked through the hallways much, but overall feels subjectively improved. Objective Data Objective Data Vital Signs: Vital Signs Temp Pulse Resp BP Pulse Ox 36.9 C 82 18 137/58 H 95 12/14/20 02:00 12/14/20 03:33 12/14/20 02:00 12/14/20 02:00 12/14/20 07:20 Oxygen Flow Rate (L/min) 4 Oxygen Delivery Method Room Air Weight: 115.2 kg Body Mass Index (BMI) 29.7 Finger Stick Blood Glucose 123 Intake & Output: Intake and Output for Last 24 Hours 12/12/20 12/13/20 12/14/20 23:59 23:59 23:59 Intake Total 1475 / 1475 110 / 110 500 / 500 Output Total 1950 / 2100 4695 / 5095 1400 / 1400 Balance -475 / -625 -4585 / -4985 -900 / -900 Lab / Micro Data Result Diagrams: 12/14/20 06:00 12/14/20 06:00 Labs: Laboratory Results - last 24 hr 12/13/20 12/13/20 12/13/20 03:45 11:35 17:09 WBC RBC Hgb Hct MCV MCH MCHC RDW Std Deviation RDW Coeff of Flavio Plt Count MPV Immature Gran % (Auto) Neut % (Auto) Lymph % (Auto) [place] % (Auto) Eos % (Auto) Baso % (Auto) Absolute Neuts (auto) Absolute Lymphs (auto) Nucleated RBC % Sodium Potassium Chloride Carbon Dioxide BUN Creatinine Estim Creat Clear Calc Est GFR (MDRD) Af Amer Est GFR (MDRD) Non-Af BUN/Creatinine Ratio Glucose Calcium Phosphorus Iron 15 L TIBC 226 L Ferritin 233 Albumin POC Glucose 315 H 287 H 12/13/20 12/14/20 12/14/20 23:04 06:00 06:00 WBC 8.8 RBC 2.78 L Hgb 8.2 L Hct 25.7 L MCV 92.4 MCH 29.5 MCHC 31.9 L RDW Std Deviation 47.4 H RDW Coeff of Flavio 14.1 Plt Count 294 MPV 9.7 Immature Gran % (Auto) 1.300 H Neut % (Auto) 74.8 H Lymph % (Auto) 13.1 L [place] % (Auto) 8.9 Eos % (Auto) 1.3 Baso % (Auto) 0.6 Absolute Neuts (auto) 6.6 Absolute Lymphs (auto) 1.15 Nucleated RBC % 0 Sodium 136 Potassium 3.6 Chloride 100 Carbon Dioxide 28.0 BUN 41 H Creatinine 1.92 H Estim Creat Clear Calc 33.12 Est GFR (MDRD) Af Amer 43 L Est GFR (MDRD) Non-Af 36 L BUN/Creatinine Ratio 21.4 H Glucose 252 H Calcium 8.7 Phosphorus 3.8 Iron TIBC Ferritin Albumin 2.1 L POC Glucose 270 H 12/14/20 06:38 WBC RBC Hgb Hct MCV MCH MCHC RDW Std Deviation RDW Coeff of Flavio Plt Count MPV Immature Gran % (Auto) Neut % (Auto) Lymph % (Auto) [place] % (Auto) Eos % (Auto) Baso % (Auto) Absolute Neuts (auto) Absolute Lymphs (auto) Nucleated RBC % Sodium Potassium Chloride Carbon Dioxide BUN Creatinine Estim Creat Clear Calc Est GFR (MDRD) Af Amer Est GFR (MDRD) Non-Af BUN/Creatinine Ratio Glucose Calcium Phosphorus Iron TIBC Ferritin Albumin POC Glucose 262 H Micro: Microbiology 12/12/20 02:50 Blood Culture (Wb) - Arm Left Blood Culture - Preliminary 12/12/20 08:30 Mucosa - Nasopharyngeal Respiratory Panel (PCR) - Final 12/12/20 00:05 Mucosa - Nose SARS-CoV-2 Antigen (Rapid) - Final Radiography Diagnostic Testing: Radiology Impression Abdomen/Pelvis CT 12/13/20 07:16 IMPRESSION: 1. Moderate bilateral pleural effusions with bibasilar atelectasis. 2. Cholelithiasis. 3. Suspect duodenitis and correlation with endoscopy would be useful. 4. Bilateral nonobstructing renal stones with suspected interval lithotripsy. Mild hydronephrosis and ureteral dilatation on the right with 3 mm stone in the base of the bladder likely consistent with a recently passed stone fragment. 5. 3 x 11 cm acute subcapsular hematoma the left kidney with some hemorrhage in the left posterior pararenal space. 6. Liu catheter within the collapsed bladder. Electronically Signed: Vin Gibbs MD at 8:40 EDT Tel , Service support , Physical Exam Const alert, oriented x3 and no apparent distress General Appearance: cooperative HEENT normocephalic and head/scalp atraumatic Head and Scalp: atraumatic Eyes PERRL and EOMs intact bilaterally Neck no lymphadenopathy, supple, no JVD and no carotid bruits Resp normal respiratory effort, no use of accessory muscles and clear to auscultation bilaterally Auscultation: clear to auscultation bilaterally; Negative for rales, rhonchi or wheezes Cardio regular rate and no murmurs Peripheral Pulses: pulses 2+ throughout GI normal to inspection, nondistended, normoactive bowel sounds and soft to palpation Extremity normal capillary refill General Extremity: Negative for edema Peripheral Pulses: Yes pulses 2+ throughout Skin no rashes or lesions noted Neuro CN's II-XII intact bilaterally Psych cooperative and affect normal Assessment & Plan Assessment/Plan (1) Acute respiratory failure with hypoxia: Status: Resolved Code(s): J96.01 - Acute respiratory failure with hypoxia Plan: Clinical suspicion for acute congestive heart failure leading to respiratory failure. Patient appears to be back to his baseline respiratory status. Patient is on room air. Patient will need a walking oximetry prior to discharge. BiPAP can likely be continued only with sleep. (2) HORACE (acute kidney injury): Status: Acute Code(s): N17.9 - Acute kidney failure, unspecified Plan: Continues to improve. Patient with acute elevation in creatinine compared to previous. Renal ultrasound was not consistent with postobstructive uropathy. This would suggest a prerenal etiology secondary to poor cardiac output secondary to volume overload. We will continue to monitor. (3) Anemia: Status: Chronic Code(s): D64.9 - Anemia, unspecified Qualifiers: Anemia type: other cause Other causes of anemia: other cause, not classified Qualified Code(s): D64.89 - Other specified anemias Plan: Patient with a left perinephric hematoma. This explains acute blood loss anemia. No intervention would be required at this time. We will continue to monitor clinically with H&H's daily. Patient is not having significant discomfort. 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 Recommend villeda sitioning to insulin therapy during the acute process. Sliding scale will be increased. (5) MACHELLE (obstructive sleep apnea): Status: Chronic Code(s): G47.33 - Obstructive sleep apnea (adult) (pediatric) Plan: Patient with subpar compliance as an outpatient. Patient understands that this will be necessary during the acute condition to avoid future complications. Patient should be on AVAPS versus BiPAP 12/6 centimeters of water with all sleep. (6) RLS (restless legs syndrome): Status: Chronic Plan: Okay to continue baseline ropinirole (7) Congestive heart failure (CHF): Status: Acute Code(s): I50.9 - Heart failure, unspecified Qualifiers: Heart failure type: diastolic Heart failure chronicity: acute on chronic Qualified Code(s): I50.33 - Acute on chronic diastolic (congestive) heart failure Plan: Patient with recent echocardiogram showing preserved ejection fraction. Patient with rapid improvement following diuresis. Renal function has improved indicating probable better cardiac efficiency. Patient did have a recent surgical procedure and may have had significant volume. (8) Dizziness: Status: Chronic Code(s): R42 - Dizziness and giddiness Plan: Unclear etiology. Patient may be having hypoxia leading to dizziness on presentation. Patient does have a significant history of cardiac arrhythmias. Continue with telemetry. (9) Status post laser lithotripsy of ureteral calculus: Status: Acute Code(s): Z98.890 - Other specified postprocedural states Plan: Liu has been placed. Patient with no hydronephrosis on ultrasound. (10) HLD (hyperlipidemia): Status: Chronic Code(s): E78.5 - Hyperlipidemia, unspecified Qualifiers: Hyperlipidemia type: pure hypercholesterolemia Qualified Code(s): E78.00 - Pure hypercholesterolemia, unspecified; E78.0 - Pure hypercholesterolemia Plan: Okay to continue statin (11) Essential (primary) hypertension: Status: Chronic Code(s): I10 - Essential (primary) hypertension Plan: Blood pressure appears to be well controlled at this time. Avoid MARIJA inhibitors given acute kidney injury Inpatient E&M: 34726 Subs Hosp L2
[2020-12-14] MEDS: Acetaminophen 325 MG Tablet 650 MG PO (08:19)
[2020-12-14] MEDS: amLODIPine 5 MG Tablet PO ×2 (08:50→21:10)
[2020-12-14] MEDS: Metoprolol(XL)Succ 25 MG Tablet 75 MG PO ×2 (08:51→21:09)
[2020-12-14] MEDS: Finasteride 5 MG Tablet PO (08:51)
[2020-12-14 11:55] LABS: Bedside Glucose 266 mg/dL (70-110)
--- NOTE | 2020-12-14 12:27 | PCM.PN.REN ---
Subjective Subjective: breathing improved, edema better on iv lasix. Creatinine improving Objective Data Objective Data Vital Signs: Vital Signs Temp Pulse Resp BP Pulse Ox 97.9 F 80 16 136/68 H 96 12/14/20 08:00 12/14/20 08:51 12/14/20 08:00 12/14/20 08:00 12/14/20 08:00 Oxygen Flow Rate (L/min) 4 Oxygen Delivery Method Room Air Weight: 115.2 kg Body Mass Index (BMI) 29.7 Finger Stick Blood Glucose 123 Intake & Output: Intake and Output for Last 24 Hours 12/12/20 12/13/20 12/14/20 23:59 23:59 23:59 Intake Total 1475 / 1475 110 / 110 980 / 980 Output Total 1950 / 2100 4695 / 5095 1900 / 1900 Balance -475 / -625 -4585 / -4985 -920 / -920 Lab / Micro Data Result Diagrams: 12/14/20 06:00 12/14/20 06:00 Labs: Laboratory Results - last 24 hr 12/13/20 12/13/20 12/13/20 03:45 17:09 23:04 WBC RBC Hgb Hct MCV MCH MCHC RDW Std Deviation RDW Coeff of Flavio Plt Count MPV Immature Gran % (Auto) Neut % (Auto) Lymph % (Auto) [place] % (Auto) Eos % (Auto) Baso % (Auto) Absolute Neuts (auto) Absolute Lymphs (auto) Nucleated RBC % Sodium Potassium Chloride Carbon Dioxide BUN Creatinine Estim Creat Clear Calc Est GFR (MDRD) Af Amer Est GFR (MDRD) Non-Af BUN/Creatinine Ratio Glucose Calcium Phosphorus Iron 15 L TIBC 226 L Ferritin 233 Albumin POC Glucose 287 H 270 H 12/14/20 12/14/20 12/14/20 06:00 06:00 06:38 WBC 8.8 RBC 2.78 L Hgb 8.2 L Hct 25.7 L MCV 92.4 MCH 29.5 MCHC 31.9 L RDW Std Deviation 47.4 H RDW Coeff of Flavio 14.1 Plt Count 294 MPV 9.7 Immature Gran % (Auto) 1.300 H Neut % (Auto) 74.8 H Lymph % (Auto) 13.1 L [place] % (Auto) 8.9 Eos % (Auto) 1.3 Baso % (Auto) 0.6 Absolute Neuts (auto) 6.6 Absolute Lymphs (auto) 1.15 Nucleated RBC % 0 Sodium 136 Potassium 3.6 Chloride 100 Carbon Dioxide 28.0 BUN 41 H Creatinine 1.92 H Estim Creat Clear Calc 33.12 Est GFR (MDRD) Af Amer 43 L Est GFR (MDRD) Non-Af 36 L BUN/Creatinine Ratio 21.4 H Glucose 252 H Calcium 8.7 Phosphorus 3.8 Iron TIBC Ferritin Albumin 2.1 L POC Glucose 262 H 12/14/20 11:42 WBC RBC Hgb Hct MCV MCH MCHC RDW Std Deviation RDW Coeff of Flavio Plt Count MPV Immature Gran % (Auto) Neut % (Auto) Lymph % (Auto) [place] % (Auto) Eos % (Auto) Baso % (Auto) Absolute Neuts (auto) Absolute Lymphs (auto) Nucleated RBC % Sodium Potassium Chloride Carbon Dioxide BUN Creatinine Estim Creat Clear Calc Est GFR (MDRD) Af Amer Est GFR (MDRD) Non-Af BUN/Creatinine Ratio Glucose Calcium Phosphorus Iron TIBC Ferritin Albumin POC Glucose 266 H Micro: Microbiology 12/12/20 02:50 Blood Culture (Wb) #2 - Anticubital Right Blood Culture - Preliminary No growth in 48 hours. 12/12/20 02:50 Blood Culture (Wb) - Arm Left Blood Culture - Preliminary No growth in 48 hours. 12/12/20 08:30 Mucosa - Nasopharyngeal Respiratory Panel (PCR) - Final 12/12/20 00:05 Mucosa - Nose SARS-CoV-2 Antigen (Rapid) - Final Physical Exam Const alert and oriented x3 HEENT normocephalic Eyes PERRL and EOMs intact bilaterally Resp clear to auscultation bilaterally Auscultation: crackles right and rhonchi Cardio regular rate GI non-tender and non-distended Auscultation: normoactive bowel sounds Palpation: soft Narrative: stent, lithotripsy, left flank/groin pain Extremity no clubbing, cyanosis or edema General Extremity: edema bilateral (improving) Neuro Motor Exam: no tremor Psych cooperative Assessment & Plan Assessment/Plan (1) CKD stage 3 due to type 2 diabetes mellitus: Status: Chronic Code(s): E11.22 - Type 2 diabetes mellitus with diabetic chronic kidney disease; N18.30 - Chronic kidney disease, stage 3 unspecified Plan: 1. Acute on CKD stage III suspected to obstructive uropathy from nephrolithiasis. Ureteral stent with lithotripsy early November with mild hydronephrosis on the right, left perinephric hematoma. Continue to monitor renal function. Creatinine improved from 3.2 on admission to 2.9 today. Baseline creatinine 1.13 from September 2019. Underlying diabetic nephropathy. No recent IV contrast exposure 2. Diastolic congestive heart failure with bilateral pleural effusion. Continue with IV Lasix. Shortness of breath improving. 3. Iron deficiency anemia recommend IV iron therapy while in the hospital. Continue oral iron therapy on discharge. 4. Morbid obesity (2) HORACE (acute kidney injury): Status: Acute Code(s): N17.9 - Acute kidney failure, unspecified Plan: creatinine improving (3) Kidney hematoma: Status: Acute Code(s): S37.019A - Minor contusion of unspecified kidney, initial encounter Plan: asymptomatic (4) Urolithiasis: Status: Acute Code(s): N20.9 - Urinary calculus, unspecified Qualifiers: Urinary calculus location: kidney Qualified Code(s): N20.0 - Calculus of kidney Plan: no hematuria (5) Diabetic kidney disease: Status: Acute Code(s): E11.21 - Type 2 diabetes mellitus with diabetic nephropathy (6) Acute respiratory failure with hypoxia: Status: Resolved Code(s): J96.01 - Acute respiratory failure with hypoxia Plan: improved. Change to po lasix (7) Congestive heart failure (CHF): Status: Acute Code(s): I50.9 - Heart failure, unspecified Qualifiers: Heart failure type: diastolic Heart failure chronicity: acute on chronic Qualified Code(s): I50.33 - Acute on chronic diastolic (congestive) heart failure Plan: change to po lasix (8) Iron deficiency anemia: Status: Acute Code(s): D50.9 - Iron deficiency anemia, unspecified (9) 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 Code(s): E11.42 - Type 2 diabetes mellitus with diabetic polyneuropathy (10) Hypertension: Status: Chronic Code(s): I10 - Essential (primary) hypertension (11) Hyponatremia: Status: Acute Code(s): E87.1 - Hypo-osmolality and hyponatremia Plan: likely from volume expansion, continue with diuretics. SOdium improved
--- NOTE | 2020-12-14 12:51 | CASEMGMT ---
TIMOTHY CM in to pt room. Pt states he would like to return home with his HHC. TC to [facility] to make aware of possible dc. Left message on Cyndie Martinez's vm. Will fax dc instrustions/summary when available.
--- NOTE | 2020-12-14 14:00 | PN.HOSP_ITS ---
Subjective Subjective: Patient was seen and examined. He feels much improved. He is off oxygen. Objective Data Objective Data Vital Signs: Vital Signs Temp Pulse Resp BP Pulse Ox 97.9 F 80 16 136/68 H 96 12/14/20 08:00 12/14/20 08:51 12/14/20 08:00 12/14/20 08:00 12/14/20 08:00 Oxygen Flow Rate (L/min) 4 Oxygen Delivery Method Room Air Weight: 115.2 kg Body Mass Index (BMI) 29.7 Finger Stick Blood Glucose 123 Intake & Output: Intake and Output for Last 24 Hours 12/12/20 12/13/20 12/14/20 23:59 23:59 23:59 Intake Total 1475 / 1475 110 / 110 980 / 980 Output Total 1950 / 2100 4695 / 5095 1900 / 1900 Balance -475 / -625 -4585 / -4985 -920 / -920 Lab / Micro Data Result Diagrams: 12/14/20 06:00 12/14/20 06:00 Labs: Laboratory Results - last 24 hr 12/13/20 12/13/20 12/13/20 03:45 17:09 23:04 WBC RBC Hgb Hct MCV MCH MCHC RDW Std Deviation RDW Coeff of Flavio Plt Count MPV Immature Gran % (Auto) Neut % (Auto) Lymph % (Auto) [place] % (Auto) Eos % (Auto) Baso % (Auto) Absolute Neuts (auto) Absolute Lymphs (auto) Nucleated RBC % Sodium Potassium Chloride Carbon Dioxide BUN Creatinine Estim Creat Clear Calc Est GFR (MDRD) Af Amer Est GFR (MDRD) Non-Af BUN/Creatinine Ratio Glucose Calcium Phosphorus Iron 15 L TIBC 226 L Ferritin 233 Albumin POC Glucose 287 H 270 H 12/14/20 12/14/20 12/14/20 06:00 06:00 06:38 WBC 8.8 RBC 2.78 L Hgb 8.2 L Hct 25.7 L MCV 92.4 MCH 29.5 MCHC 31.9 L RDW Std Deviation 47.4 H RDW Coeff of Flavio 14.1 Plt Count 294 MPV 9.7 Immature Gran % (Auto) 1.300 H Neut % (Auto) 74.8 H Lymph % (Auto) 13.1 L [place] % (Auto) 8.9 Eos % (Auto) 1.3 Baso % (Auto) 0.6 Absolute Neuts (auto) 6.6 Absolute Lymphs (auto) 1.15 Nucleated RBC % 0 Sodium 136 Potassium 3.6 Chloride 100 Carbon Dioxide 28.0 BUN 41 H Creatinine 1.92 H Estim Creat Clear Calc 33.12 Est GFR (MDRD) Af Amer 43 L Est GFR (MDRD) Non-Af 36 L BUN/Creatinine Ratio 21.4 H Glucose 252 H Calcium 8.7 Phosphorus 3.8 Iron TIBC Ferritin Albumin 2.1 L POC Glucose 262 H 12/14/20 11:42 WBC RBC Hgb Hct MCV MCH MCHC RDW Std Deviation RDW Coeff of Flavio Plt Count MPV Immature Gran % (Auto) Neut % (Auto) Lymph % (Auto) [place] % (Auto) Eos % (Auto) Baso % (Auto) Absolute Neuts (auto) Absolute Lymphs (auto) Nucleated RBC % Sodium Potassium Chloride Carbon Dioxide BUN Creatinine Estim Creat Clear Calc Est GFR (MDRD) Af Amer Est GFR (MDRD) Non-Af BUN/Creatinine Ratio Glucose Calcium Phosphorus Iron TIBC Ferritin Albumin POC Glucose 266 H Micro: Microbiology 12/12/20 02:50 Blood Culture (Wb) #2 - Anticubital Right Blood Culture - Preliminary No growth in 48 hours. 12/12/20 02:50 Blood Culture (Wb) - Arm Left Blood Culture - Preliminary No growth in 48 hours. 12/12/20 08:30 Mucosa - Nasopharyngeal Respiratory Panel (PCR) - Final 12/12/20 00:05 Mucosa - Nose SARS-CoV-2 Antigen (Rapid) - Final Physical Exam Narrative General: Alert, Oriented x3, Cooperative, No apparent distress, Well developed, obese, comfortable off oxygen HEENT: Atraumatic Oral: Moist Mucosa Neck: Supple Lungs: Diminished, improved crackles at the lung bases Cardiovascular: HS I+II, regular, no murmurs Abdomen: Bowel Sounds Present, Soft, Non Tender Extremities: Bilateral pedal edema +1 Skin: No rashes, No breakdown Neurological: Grossly intact Psych/Mental Status: Appropriate Assessment & Plan Assessment/Plan (1) HORACE (acute kidney injury): Status: Acute Code(s): N17.9 - Acute kidney failure, unspecified (2) Congestive heart failure (CHF): Status: Acute Code(s): I50.9 - Heart failure, unspecified Qualifiers: Heart failure type: diastolic Heart failure chronicity: acute on chronic Qualified Code(s): I50.33 - Acute on chronic diastolic (congestive) heart failure (3) Acute respiratory failure with hypoxia: Status: Resolved Code(s): J96.01 - Acute respiratory failure with hypoxia (4) Anemia: Status: Acute Code(s): D64.9 - Anemia, unspecified Qualifiers: Anemia type: other cause Other causes of anemia: other cause, not clas sified Qualified Code(s): D64.89 - Other specified anemias Plan: Acute on chronic anemia; likely secondary to acute blood loss to kidney hematoma from recent lithotripsy (5) Kidney hematoma: Status: Acute Code(s): S37.019A - Minor contusion of unspecified kidney, initial encounter Plan: Hemoglobin appears stable at 8.2, will continue to monitor Continue to wean off oxygen for SPO2 more than 94% Continue with CHF protocol; Lasix 40 mg p.o. twice daily, daily weights, strict I's and O's Continue with breathing treatment Repeat CBCD and renal profile in a.m.
--- NOTE | 2020-12-14 14:16 | PCM.CONS.GEN ---
Assessment & Plan Assessment/Plan (1) Weakness: Status: Inactive Code(s): R53.1 - Weakness (2) SOB (shortness of breath): Status: Acute Code(s): R06.02 - Shortness of breath (3) Fatigue: Status: Chronic Code(s): R53.83 - Other fatigue Qualifiers: Fatigue type: chronic, unspecified Qualified Code(s): R53.82 - Chronic fatigue, unspecified (4) Acute respiratory failure with hypoxia: Status: Resolved Code(s): J96.01 - Acute respiratory failure with hypoxia (5) Congestive heart failure (CHF): Status: Acute Code(s): I50.9 - Heart failure, unspecified Qualifiers: Heart failure chronicity: acute on chronic Heart failure type: diastolic Qualified Code(s): I50.33 - Acute on chronic diastolic (congestive) heart failure (6) CKD stage 3 due to type 2 diabetes mellitus: Status: Chronic Code(s): E11.22 - Type 2 diabetes mellitus with diabetic chronic kidney disease; N18.30 - Chronic kidney disease, stage 3 unspecified (7) 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 Code(s): E11.42 - Type 2 diabetes mellitus with diabetic polyneuropathy Plan: 80 yr old male with weakness, fall, CHF, and anemia, seen today for initial palliative care consultation secondary to significant decrease in ADLs, increased weakness,, rehospitalization. Current with outpatient custodial, PT and OT with [facility]. -Goals of care include improvement of quality of life, regain strength and become more independent again, and effectively managing his chronic conditions. -No additional medications to be added at this point ?We will follow-up as an outpatient, RN will visit in a couple of days to establish care -Continue with therapy as an outpatient -Anticipate close collaboration with his specialist/PCP to help manage chronic/comorbid conditions -Shortness of breath appears to now be controlled, back at baseline on room air Thank you for the opportunity to participate in this patient's care, please do not hesitate to contact [facility] with any further questions or concerns. Palliative direct line is [phone]. We will have RN follow up approximately 3 days after discharge to home and will discuss palliative services further at that time. Greater than 50% of F2F visit dedicated to education and counseling of palliative care services, medications, comorbid conditions and potential assistance with management, and plan of care moving forward. Start time: 1416 End time: 1510 HPI Consult Data Date of Consult: 12/14/20 HPI Narrative HPI Narrative: MARY SAN is an 80 M, recently discharged from [facility] 12/08 with syncopal episode and anemia, presented back to the ED 12/11 evening with progressive weakness and fall at home. Patient was found laying on his side on the bathroom floor. Blood sugar was found to be 436, patient was transported to the ED for further evaluation. Pulse ox was 85% on room air. He was treated for sepsis secondary to possible pneumonia and received IV antibiotics, IV fluids, and BiPAP due to progressive hypoxemia. He was noted to have a significant elevation in creatinine from baseline of 1.2 up to 3.5. BNP was 736. He was transferred to the ICU for further management. He was seen by the calender let off helper, Dr. Tanner. Patient follows at [facility] for his MACHELLE. He had a chest x-ray that showed probable right basilar subsegmental atelectasis, therefore CT of the chest was performed and revealed small bilateral pleural effusions, mild cardiomegaly, coronary calcifications. There was no indication for thoracentesis. CT the brain showed nothing acute. Urology also consulted, unclear if acute issue but he had recent treatment of bilateral renal calculi with shockwave lithotripsy. Patient was apparently having some left flank pain but no hematuria. Noted to have a small hematoma around the left kidney, no evidence of obstructing stones. Recommendations were to follow-up as an outpatient, reported that the hematoma would likely resolve on its own in about 6 weeks. Nephrology consult due to acute on chronic CKD stage III. Recommended IV iron therapy while in the hospital for his ARTEMIO and oral therapy upon discharge, okay to continue with Lasix. Patient has improved overall, he has been weaned to room air. Still feels weak. Being treated for acute CHF which likely led to the acute hypoxic respiratory failure. States has lost weight w/ diuresis and breathing is at baseline. His hemoglobin has been stable, currently 8.2. Discussed palliative care services, medications, comorbid conditions, and plan of care moving forward. Patient is interested in learning more about palliative care, states his would likely be appropriate as well as she is going to be starting hemodialysis soon. Her overall function has been significantly declining and he is worried they will not be able to manage at home by themselves. They live in a condo. He cannot afford assisted living. ON LICENSE OF [facility] Medical History (Updated 12/14/20 @ 14:43 by Deonna Gardner NP-C) Anemia Anxiety and depression Atherosclerotic heart disease of [place] coronary artery without angina pectoris Back pain BMI 34.0-34.9,adult BPH (benign prostatic hyperplasia) BPPV (benign paroxysmal positional vertigo) Cardiac dysrhythmia De Quervain's tenosynovitis Dermatitis Diabetes mellitus Dizziness DM type 2 with diabetic peripheral neuropathy Dyslipidemia Essential (primary) hypertension Fall Fracture of great toe History of renal calculi HLD (hyperlipidemia) Loss of equilibrium Malaise Near syncope Open wound of left lower extremity Orthostatic hypotension MACHELLE (obstructive sleep apnea) Paroxysmal atrial flutter Pneumonia Polypharmacy RLS (restless legs syndrome) SVT (supraventricular tachycardia) Vertigo Home Medications finasteride 5 mg tablet 5 mg PO DAILY #90 tablet 11/03/18 [Rx Last Taken Unknown] flecainide 100 mg tablet 100 mg PO Q12H #180 tablet 02/10/20 [Rx Last Taken 12/06/20 12:31] simvastatin 20 mg tablet 20 mg PO QHS #90 tablet 05/10/20 [Rx Last Taken Unknown] pramipexole 1 mg tablet 2 mg PO QHS #180 tablet 08/23/20 [Rx Last Taken Unknown] dulaglutide 1.5 mg/0.5 mL subcutaneous pen injector 1.5 mg SC QWEEK 90 Days #6.5 ml 11/13/20 [Rx Last Taken Unknown] apremilast 30 mg PO BID 11/22/20 [History Last Taken Unknown] levomilnacipran 40 mg PO DAILY 11/22/20 [History Last Taken Unknown] metoprolol succinate 25 mg tablet,extended release 24 hr 75 mg PO BID 90 Days #540 tablet 11/24/20 [Rx Last Taken 12/06/20 12:31] amlodipine 5 mg tablet 5 mg PO BID #180 tablet 12/05/20 [Rx Last Taken 12/06/20 12:31] ciprofloxacin HCl 500 mg PO BID #10 tab 12/06/20 [Rx Last Taken Unknown] oxycodone-acetaminophen 1 tablet PO Q4H PRN PRN 7 Days #14 tab 12/06/20 [Rx Last Taken Unknown] Allergy/AdvReac Type Severity Reaction Status Date / Time hydrocodone bitartrate Allergy Other Verified 12/11/20 23:18 [From Vicodin] hydroxyzine AdvReac Other Verified 12/11/20 23:18 Family History Father Diabetes Hypertension Cancer Lung cancer Mother Hypertension CVA (cerebral vascular accident) Sister Diabetes Son Diabetes Surgical History History of cardioversion (2015) History of cataract surgery History of left heart catheterization (02/16/13) History of radiofrequency ablation procedure for cardiac arrhythmia (02/05/06) history of right knee cap fracture History of right knee surgery Status post left foot surgery STENT PLACEMENT FOR KIDNEY STONE Social History Smoking Status: Former smoker how long ago did patient quit smokin second hand exposure: No alcohol intake: never substance use type: does not use caffeine: No what type of physical activity do you participate in: none seatbelt use: always do you feel safe at home: Yes ROS Constitutional Constitutional: Reports weakness and weight loss; Denies fever(s) Eyes Eyes: Denies change in vision ENT HEENT: Denies nasal congestion or sore throat Cardiovascular Cardiovascular: Reports edema; Denies chest pain or palpitations Respiratory/Chest Respiratory/Chest: Reports shortness of breath with exertion; Denies cough Gastrointestinal Gastrointestinal: Reports loose stools; Denies abdominal pain or constipation Genitourinary Genitourinary: Reports other Details: edgar cath ; Denies dysuria Musculoskeletal Musculoskeletal: Reports joint pain and other Details: R lateral foot pain/hairline fractue ; Denies back pain Integumentary Integumentary: Denies wounds Neurologic Neurologic: Reports numbness, tingling and weakness; Denies confusion or focal weakness Psychiatric Psychiatric: Denies anxiety or depression Hematologic/Lymphatic Hematologic/Lymphatic: Reports anemia Physical Exam Const alert, oriented x3 and no apparent distress General Appearance: cooperative HEENT head/scalp atraumatic Neck supple General: trachea midline Resp normal respiratory effort and clear to auscultation bilaterally Auscultation: diminished lung sounds Cardio regular rate, regular rhythm, S1 normal heart sound and S2 normal heart sound GI normal to inspection, nondistended, normoactive bowel sounds Extremity General Extremity: edema bilateral lower extremity Skin Rashes: no rashes Neuro CN's II-XII intact bilaterally Psych affect normal Appearance: appropriate Lab / Micro Data Result Diagrams: 12/14/20 06:00 12/14/20 06:00 Labs: Laboratory Results - last 24 hr 12/13/20 12/13/20 12/14/20 17:09 23:04 06:00 WBC 8.8 RBC 2.78 L Hgb 8.2 L Hct 25.7 L MCV 92.4 MCH 29.5 MCHC 31.9 L RDW Std Deviation 47.4 H RDW Coeff of Flavio 14.1 Plt Count 294 MPV 9.7 Immature Gran % (Auto) 1.300 H Neut % (Auto) 74.8 H Lymph % (Auto) 13.1 L [place] % (Auto) 8.9 Eos % (Auto) 1.3 Baso % (Auto) 0.6 Absolute Neuts (auto) 6.6 Absolute Lymphs (auto) 1.15 Nucleated RBC % 0 Sodium Potassium Chloride Carbon Dioxide BUN Creatinine Estim Creat Clear Calc Est GFR (MDRD) Af Amer Est GFR (MDRD) Non-Af BUN/Creatinine Ratio Glucose Calcium Phosphorus Albumin POC Glucose 287 H 270 H 12/14/20 12/14/20 12/14/20 06:00 06:38 11:42 WBC RBC Hgb Hct MCV MCH MCHC RDW Std Deviation RDW Coeff of Flavio Plt Count MPV Immature Gran % (Auto) Neut % (Auto) Lymph % (Auto) [place] % (Auto) Eos % (Auto) Baso % (Auto) Absolute Neuts (auto) Absolute Lymphs (auto) Nucleated RBC % Sodium 136 Potassium 3.6 Chloride 100 Carbon Dioxide 28.0 BUN 41 H Creatinine 1.92 H Estim Creat Clear Calc 33.12 Est GFR (MDRD) Af Amer 43 L Est GFR (MDRD) Non-Af 36 L BUN/Creatinine Ratio 21.4 H Glucose 252 H Calcium 8.7 Phosphorus 3.8 Albumin 2.1 L POC Glucose 262 H 266 H Micro: Microbiology 12/12/20 02:50 Blood Culture - Preliminary Blood Culture (Wb) #2 - Anticubital Right No growth in 48 hours. 12/12/20 02:50 Blood Culture - Preliminary Blood Culture (Wb) - Arm Left No growth in 48 hours.
[2020-12-14] MEDS: Furosemide 40 MG Tablet PO (16:34)
[2020-12-14 17:26] LABS: Bedside Glucose 300 mg/dL (70-110)
[2020-12-14 22:11] LABS: Bedside Glucose 270 mg/dL (70-110)
[2020-12-15] VITALS (10 sets, daily range): BP systolic 131–141; BP diastolic 59–64; PULSE 70–78; RESP 16–18; TEMP 36.6–36.9; O2SAT 93–96
[2020-12-15] MEDS: Acetaminophen 325 MG Tablet 650 MG PO (01:09)
[2020-12-15 06:14] LABS: Absolute Lymphocyte Count 1.84 X10^3/uL (0.83-4.51); Absolute Neutrophil Count 6.9 X10^3/uL (2.0-7.7); Basophil# 0.03 X10^3/uL; Basophil% 0.3 % (0-1); Eosinophil# 0.32 X10^3/uL; Eosinophils% 3.1 % (0-5); Hematocrit 26.7 % (40-54); Hemoglobin 8.2 g/dL (13.0-16.5); Lymphocyte # 1.84 X10^3/ul (0.83-4.51); Lymphocyte % 17.9 % (19-41); Mean Corp Hgb Conc 30.7 g/dL (32-36); Mean Corpuscular Hgb 28.9 pg (27.0-32.0); Mean Platelet Vol. 9.7 fl (6.2-12.0); Monocyte% 10.7 % (0-10); NRBC Flagged by Analyzer 0 % (0-5); Neutrophil # 6.87 X10^3/uL (2.7-7.7); Neutrophil % 66.7 % (47-70); Platelet Count 320 K/mm3 (150-450); RBC Distribution Width CV 14.2 % (11.6-14.6); RBC Distribution Width SD 47.9 fl (35.1-43.9); Red Blood Count 2.84 M/mm3 (4.6-6.2); White Blood Count 10.3 K/mm3 (4.4-11.0)
[2020-12-15] MEDS: Insulin Lispro 100 UNIT/ML INSULN.PEN SC ×3 (06:39→16:36)
[2020-12-15 06:44] LABS: ALB/GLOB Ratio 0.5 RATIO (0.9-2.4); AST(SGOT) 25 U/L (15-37); Alanine Aminotransfer ALT/SGPT 19 U/L (16-61); Albumin, Serum 2.2 g/dL (3.2-5.0); Alkaline Phosphatase 101 U/L (45-117); Anion Gap 8 (5-15); BUN 41 mg/dL (7-18); BUN/Creat Ratio 21.8 RATIO (10-20); Calcium,Total 8.6 mg/dL (8.5-10.1); Chloride 101 mmol/L (98-107); Creatinine, Serum 1.88 mg/dL (0.70-1.30); EST Glomerular Filtration Rate 37 mL/min (>60); Est Glom Filt Rate - Afr Amer 45 mL/min (>60); Estimated Creatinine Clearance 33.82 ml/min; Globulin 4.3 g/dL (2.2-4.2); Glucose 204 mg/dL (74-106); Potassium 3.4 mmol/L (3.5-5.1); Protein, Total 6.5 g/dL (6.4-8.2); Sodium Level 139 mmol/L (136-145)
[2020-12-15 06:46] LABS: Bedside Glucose 237 mg/dL (70-110)
--- NOTE | 2020-12-15 08:38 | PN.CC_ITS ---
Subjective Subjective: Patient did well overnight. No acute issues were reported. However, patient reports he feels overly fatigued this morning. Patient does not report any chest pain or shortness of breath. Patient has been tolerating room air and his home BiPAP. Objective Data Objective Data Vital Signs: Vital Signs Temp Pulse Resp BP Pulse Ox 36.9 C 70 18 138/64 H 94 12/15/20 02:20 12/15/20 08:00 12/15/20 02:20 12/15/20 02:20 12/15/20 02:20 Oxygen Flow Rate (L/min) 4 Oxygen Delivery Method Room Air Weight: 110 kg Body Mass Index (BMI) 29.7 Finger Stick Blood Glucose 123 Intake & Output: Intake and Output for Last 24 Hours 12/13/20 12/14/20 12/15/20 23:59 23:59 23:59 Intake Total 110 / 110 980 / 1180 500 / 500 Output Total 4695 / 5095 2450 / 3050 1000 / 1000 Balance -4585 / -4985 -1470 / -1870 -500 / -500 Lab / Micro Data Result Diagrams: 12/15/20 04:35 12/15/20 04:35 Labs: Laboratory Results - last 24 hr 12/14/20 12/14/20 12/14/20 11:42 16:32 21:07 WBC RBC Hgb Hct MCV MCH MCHC RDW Std Deviation RDW Coeff of Flavio Plt Count MPV Immature Gran % (Auto) Neut % (Auto) Lymph % (Auto) [place] % (Auto) Eos % (Auto) Baso % (Auto) Absolute Neuts (auto) Absolute Lymphs (auto) Nucleated RBC % Sodium Potassium Chloride Carbon Dioxide Anion Gap BUN Creatinine Estim Creat Clear Calc Est GFR (MDRD) Af Amer Est GFR (MDRD) Non-Af BUN/Creatinine Ratio Glucose Calcium Total Bilirubin AST ALT Alkaline Phosphatase Total Protein Albumin Globulin Albumin/Globulin Ratio POC Glucose 266 H 300 H 270 H 12/15/20 12/15/20 12/15/20 04:35 04:35 06:37 WBC 10.3 RBC 2.84 L Hgb 8.2 L Hct 26.7 L MCV 94.0 MCH 28.9 MCHC 30.7 L RDW Std Deviation 47.9 H RDW Coeff of Flavio 14.2 Plt Count 320 MPV 9.7 Immature Gran % (Auto) 1.300 H Neut % (Auto) 66.7 Lymph % (Auto) 17.9 L [place] % (Auto) 10.7 H Eos % (Auto) 3.1 Baso % (Auto) 0.3 Absolute Neuts (auto) 6.9 Absolute Lymphs (auto) 1.84 Nucleated RBC % 0 Sodium 139 Potassium 3.4 L Chloride 101 Carbon Dioxide 30.0 Anion Gap 8 BUN 41 H Creatinine 1.88 H Estim Creat Clear Calc 33.82 Est GFR (MDRD) Af Amer 45 L Est GFR (MDRD) Non-Af 37 L BUN/Creatinine Ratio 21.8 H Glucose 204 H Calcium 8.6 Total Bilirubin 0.60 AST 25 ALT 19 Alkaline Phosphatase 101 Total Protein 6.5 Albumin 2.2 L Globulin 4.3 H Albumin/Globulin Ratio 0.5 L POC Glucose 237 H Micro: Microbiology 12/12/20 02:50 Blood Culture (Wb) #2 - Anticubital Right Blood Culture - Preliminary No growth in 48 hours. 12/12/20 02:50 Blood Culture (Wb) - Arm Left Blood Culture - Preliminary No growth in 48 hours. 12/12/20 08:30 Mucosa - Nasopharyngeal Respiratory Panel (PCR) - Final 12/12/20 00:05 Mucosa - Nose SARS-CoV-2 Antigen (Rapid) - Final Physical Exam Const alert, oriented x3 and no apparent distress General Appearance: cooperative HEENT normocephalic and head/scalp atraumatic Eyes PERRL and EOMs intact bilaterally Neck no lymphadenopathy, supple, no JVD and no carotid bruits Resp normal respiratory effort, no use of accessory muscles and clear to auscultation bilaterally Auscultation: clear to auscultation bilaterally; Negative for rales, rhonchi or wheezes Cardio regular rate and no murmurs Peripheral Pulses: pulses 2+ throughout GI normal to inspection, nondistended, normoactive bowel sounds and soft to palpation Extremity normal capillary refill General Extremity: Negative for edema Skin no rashes or lesions noted Neuro CN's II-XII intact bilaterally Psych cooperative and affect normal Assessment & Plan Assessment/Plan (1) Acute respiratory failure with hypoxia: Status: Resolved Code(s): J96.01 - Acute respiratory failure with hypoxia Plan: Clinical suspicion for acute congestive heart failure leading to respiratory failure. Patient appears to be back to his baseline respiratory status. Patient is on room air. Patient will need a walking oximetry prior to discharge. This will be ordered. BiPAP can likely be continued only with sleep. (2) HORACE (acute kidney injury): Status: Acute Code(s): N17.9 - Acute kidney failure, unspecified Plan: Continues to improve. Patient with acute elevation in creatinine compared to previous. Renal ultrasound was not consistent with postobstructive uropathy. This would suggest a prerenal etiology secondary to poor cardiac output seconda ry to volume overload. We will continue to monitor. Patient likely requires potassium repletion secondary to diuretic therapy. (3) Anemia: Status: Acute Code(s): D64.9 - Anemia, unspecified Qualifiers: Anemia type: other cause Other causes of anemia: other cause, not classified Qualified Code(s): D64.89 - Other specified anemias Plan: Patient with a left perinephric hematoma. This explains acute blood loss anemia. No intervention would be required at this time. We will continue to monitor clinically with H&H's daily. Patient is not having significant discomfort. H&H appears to be stable. 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 Recommend transitioning to insulin therapy during the acute process. (5) MACHELLE (obstructive sleep apnea): Status: Chronic Code(s): G47.33 - Obstructive sleep apnea (adult) (pediatric) Plan: Patient with subpar compliance as an outpatient. Patient understands that this will be necessary during the acute condition to avoid future complications. Patient should be on baseline BiPAP 12/6 centimeters of water with all sleep. (6) RLS (restless legs syndrome): Status: Chronic Plan: Okay to continue baseline ropinirole (7) Congestive heart failure (CHF): Status: Acute Code(s): I50.9 - Heart failure, unspecified Qualifiers: Heart failure type: diastolic Heart failure chronicity: acute on chronic Qualified Code(s): I50.33 - Acute on chronic diastolic (congestive) heart failure Plan: Patient with recent echocardiogram showing preserved ejection fraction. Patient with rapid improvement following diuresis. Renal function has improved indicating probable better cardiac efficiency. Patient did have a recent surgical procedure and may have had significant volume. Patient appears to be euvolemic at this time. (8) Dizziness: Status: Chronic Code(s): R42 - Dizziness and giddiness Plan: Unclear etiology. Patient may be having hypoxia leading to dizziness on presentation. Patient does have a significant history of cardiac arrhythmias. Continue with telemetry. This has not recurred since oxygenation has improved. (9) Status post laser lithotripsy of ureteral calculus: Status: Acute Code(s): Z98.890 - Other specified postprocedural states Plan: Liu was placed. Patient with no hydronephrosis on ultrasound. (10) HLD (hyperlipidemia): Status: Chronic Code(s): E78.5 - Hyperlipidemia, unspecified Qualifiers: Hyperlipidemia type: pure hypercholesterolemia Qualified Code(s): E78.00 - Pure hypercholesterolemia, unspecified; E78.0 - Pure hypercholesterolemia Plan: Okay to continue statin (11) Essential (primary) hypertension: Status: Chronic Code(s): I10 - Essential (primary) hypertension Plan: Blood pressure appears to be well controlled at this time. Avoid MARIJA inhibitors given acute kidney injury Inpatient E&M: 34580 Subs Hosp L2
[2020-12-15] MEDS: amLODIPine 5 MG Tablet PO (09:05)
[2020-12-15] MEDS: Furosemide 40 MG Tablet PO ×2 (09:05→16:37)
[2020-12-15] MEDS: Finasteride 5 MG Tablet PO (09:05)
[2020-12-15] MEDS: Potassium Chloride Oral Tablet 20 MEQ 60 MEQ PO (09:05)
[2020-12-15] MEDS: Metoprolol(XL)Succ 25 MG Tablet 75 MG PO (09:06)
[2020-12-15 11:55] LABS: Bedside Glucose 287 mg/dL (70-110)
--- NOTE | 2020-12-15 12:43 | CASEMGMT ---
Social Work Referral from Physician as pt is stating he cannot return home at this time and will need SNF. SW met with pt and in room and introduced self and role of SW. Pt and feel pt cannot return home at this time. Pt confirms that he is able to move ok while here, but is fearful to go home and function independently as is unable to provide any assistance. List of SNF providers including quality and resource use data and consistent with the patient's preferred geographic region, medical needs and insurance network was provided to pt and . Pt preferred provider is [facility] with second choice of [facility]. Referral made to [facility] and clinicals faxed. SW will await return call with determination if they can accept pt. Plan: [facility], pending acceptance MAURISIO Wood
--- NOTE | 2020-12-15 14:26 | PCM.TXEXTCAR ---
Diet 12/12/20 10:51 Diet: Cardiac: Calorie-Controlled Is pt able to select menu?: Yes How many daily calories?: 1800 calorie LOW SALT, 1500 MLS FLUID RESTRICTION Routine Orders/Code Status Keep PO Greater than or Equal to (%): 94 Routine Lab Work: CBC (within 3 days) and BMP (within 3 days) Wound(s) left FA: Wound Type: Skin Tear Therapies Weight Bearing: Weight bearing as tolerated Physical Therapy: Eval and Treat Occupational Therapy: Eval and Treat Problem/Diagnosis (1) Acute respiratory failure with hypoxia: Status: Resolved (2) HORACE (acute kidney injury): Status: Acute (3) Anemia: Status: Acute (4) 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 (5) MACHELLE (obstructive sleep apnea): Status: Chronic (6) RLS (restless legs syndrome): Status: Chronic (7) Congestive heart failure (CHF): Status: Acute (8) Dizziness: Status: Chronic (9) Status post laser lithotripsy of ureteral calculus: Status: Resolved (10) HLD (hyperlipidemia): Status: Chronic (11) Essential (primary) hypertension: Status: Chronic Allergies/Procedures Done in Hospital Allergies hydrocodone bitartrate [From Vicodin] Allergy (Verified 12/11/20 23:18) Other hydroxyzine Adverse Reaction (Verified 12/11/20 23:18) Other CALLED DIZZINESS Procedures: None Type of Care/Length of Stay Estimated LOS: Convalescent Care Less Than 30 days Type of Care Needed: Skilled Rehab Potential: Good Prognosis: Good Additional Orders/Day of Discharge H&P will serve as current which was dated: 12/12/20 Day of Discharge: 12/15/20 Dietary and Speech Recommendations Dietitian Recommendations/Changes: continue cardiac, 1800 calorie controlled diet; recommend fluid restriction if indicated. Follow Up Care Please follow up with your Primary Care Physician in: within 2 weeks Please Follow Up With: Mariia Field MD When: in 1 week Discharge Plan Admission Admit Date/Time: 12/12/20 10:26 Attending Provider: Giuliana Lockhart Primary Care Provider: Tosha Shrestha Consulting Providers: Narayan Tanner ; Douglas Quiroz ; Therese Rehman NP ; Mariia Field ; Mohit Jackson Discharge Orders/Prescriptions Prescriptions: No Action pramipexole 1 mg tablet 2 mg PO QHS Qty: 180 RF: 3 amlodipine 5 mg tablet 5 mg PO BID Qty: 180 RF: 1 levomilnacipran 40 MG capsule,extended release 24 hr 40 mg PO DAILY RF: 0 apremilast 30 MG tablet 30 mg PO BID RF: 0 oxycodone-acetaminophen 1 TABLET tablet 1 tablet PO Q4H PRN PRN (Reason: Pain) 7 Days Qty: 14 RF: 0 ciprofloxacin HCl 500 MG tablet 500 mg PO BID Qty: 10 RF: 0 finasteride 5 mg tablet 5 mg PO DAILY Qty: 90 RF: 3 flecainide 100 mg tablet 100 mg PO Q12H Qty: 180 RF: 3 simvastatin 20 mg tablet 20 mg PO QHS Qty: 90 RF: 3 dulaglutide 1.5 mg/0.5 mL pen injector 1.5 mg SC QWEEK 90 Days Qty: 6.5 RF: 3 metoprolol succinate 25 mg tablet extended release 24 hr 75 mg PO BID 90 Days Qty: 540 RF: 3 Referrals: Tosha Shrestha MD [Primary Care Provider] - Disposition Patient Disposition: Assisted Living
--- NOTE | 2020-12-15 14:36 | DS.PCM_ITS ---
Providers Date of Admission: 12/12/20 Primary Care Physician: Dr. Tosha Shrestha MD Consultations 12/12/20 10:00 Consult: Java Groovy Developer / Pulmonary Medicine Routine Consulting Provider: [facility] Reason for Consult: respiratory failure EMERGENT Consult: No Notified: Yes Date Notified:: 12/12/20 Time Notified: 10:00 Method of Notification: Verbal Method of Consult:: In-Person 12/13/20 08:58 Consult: Urology Routine Consulting Provider: [facility] Reason for Consult: subcapsular hematoma left kidney EMERGENT Consult: No Notified: Yes Date Notified:: 12/13/20 Time Notified: 08:59 Method of Notification: Provider Initiated 12/13/20 11:13 Consult: Nephrology Routine Consulting Provider: Mariia Field Reason for Consult: HORACE EMERGENT Consult: No Notified: Yes Date Notified:: 12/13/20 Time Notified: 11:14 Method of Notification: Page Reason For Visit: WEAKNESS Diagnosis Discharge Diagnosis (1) Acute respiratory failure with hypoxia: Status: Resolved Code(s): J96.01 - Acute respiratory failure with hypoxia (2) HORACE (acute kidney injury): Status: Acute Code(s): N17.9 - Acute kidney failure, unspecified (3) Anemia: Status: Acute Code(s): D64.9 - Anemia, unspecified Qualifiers: Anemia type: other cause Other causes of anemia: other cause, not classified Qualified Code(s): D64.89 - Other specified anemias (4) 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 Code(s): E11.42 - Type 2 diabetes mellitus with diabetic polyneuropathy (5) MACHELLE (obstructive sleep apnea): Status: Chronic Code(s): G47.33 - Obstructive sleep apnea (adult) (pediatric) (6) RLS (restless legs syndrome): Status: Chronic (7) Congestive heart failure (CHF): Status: Acute Code(s): I50.9 - Heart failure, unspecified Qualifiers: Heart failure chronicity: acute on chronic Heart failure type: diastolic Qualified Code(s): I50.33 - Acute on chronic diastolic (congestive) heart failure (8) Dizziness: Status: Chronic Code(s): R42 - Dizziness and giddiness (9) Status post laser lithotripsy of ureteral calculus: Status: Resolved Code(s): Z98.890 - Other specified postprocedural states (10) HLD (hyperlipidemia): Status: Chronic Code(s): E78.5 - Hyperlipidemia, unspecified Qualifiers: Hyperlipidemia type: pure hypercholesterolemia Qualified Code(s): E78.00 - Pure hypercholesterolemia, unspecified; E78.0 - Pure hypercholesterolemia (11) Essential (primary) hypertension: Status: Chronic Code(s): I10 - Essential (primary) hypertension Medications at Discharge Home Medications finasteride 5 mg tablet 5 mg PO DAILY #90 tablet 11/03/18 flecainide 100 mg tablet 100 mg PO Q12H #180 tablet 02/10/20 simvastatin 20 mg tablet 20 mg PO QHS #90 tablet 05/10/20 dulaglutide 1.5 mg/0.5 mL subcutaneous pen injector 1.5 mg SC QWEEK 90 Days #6.5 ml 11/13/20 apremilast 30 mg PO BID 11/22/20 metoprolol succinate 25 mg tablet,extended release 24 hr 75 mg PO BID 90 Days #540 tablet 11/24/20 amlodipine 5 mg tablet 5 mg PO BID #180 tablet 12/05/20 acetaminophen [Tylenol] 650 mg PO Q4H PRN PRN #0 tab 12/15/20 furosemide 40 mg PO BID@1000,1800 #0 tab 12/15/20 insulin glargine [Lantus Solostar U-100 Insulin] 10 unit SUBCUT BID 30 Days #0 ml 12/15/20 Hospital Course Operations None Procedures None and 2-D Echocardiogram Summary of Care Provided Minutes Spent on Discharge: 40 Hospital Course: 80-year-old male with multiple comorbidities who was recently d ischarged on 12/08/20 after syncopal episode. Patient recently had a left lithotripsy and cystoscopy with left stent removal and right lithotripsy done on 12/06/20. He presented again with another episode of syncope. Patient stated that he was progressively short of breath his oxygen saturation in the ED was 85% on room air. He was started on treatment for pneumonia. He received fluid bolus. He became progressively short of breath and was started on BiPAP. Also noted the patient's hemoglobin was decreased from previous levels at discharge of 9.5 to7.9. His creatinine was also found to be elevated at 3.5. His baseline was 1.2. His BMP was elevated at 736. Patient was admitted to the intensive care unit, his IV fluids were discontinued, he was started on Lasix therapy with improvement. Antibiotics were discontinued. Renal ultrasound was suggestive of left-sided perinephric hematoma, measuring 11.[address] of the abdomen and pelvis showed moderate bilateral pleural effusions with bibasilar atelectasis, bilateral nonobstructing renal stones, fragmentation of stone in the lower pole of the right kidney, mild hydronephrosis and ureteral dilatation right. There was a 3 mm stone in the base of the bladder. Patient had a 3 x 11 cm crescent-shaped area of increased attenuation surrounding the kidneys consistent with acute subcapsular hematoma with some spread into the left posterior pararenal space. Urology and nephrology were consulted. Patient was managed symptomatically. His creatinine continued to improve on Lasix. His hemoglobin remained stable. Patient was off oxygen at discharge. He was due to be discharged on home health breath felt that he should go to the residential facility for rehab as he was afraid to go home as his is also not strong to help. Patient to follow-up with nephrology and urology in the outpatient within 2 weeks. Physical Exam Narrative General: Alert, Oriented x3, Cooperative, No apparent distress, Well developed, obese, comfortable off oxygen HEENT: Atraumatic Oral: Moist Mucosa Neck: Supple Lungs: Diminished, improved crackles at the lung bases Cardiovascular: HS I+II, regular, no murmurs Abdomen: Bowel Sounds Present, Soft, Non Tender Extremities: Bilateral pedal edema +1 Skin: No rashes, No breakdown Neurological: Grossly intact Psych/Mental Status: Appropriate ABG / Lab / Microbiology Data Result Diagrams: 12/15/20 04:35 12/15/20 04:35 Laboratory: Laboratory Results - last 24 hr 12/14/20 12/14/20 12/15/20 16:32 21:07 04:35 WBC 10.3 RBC 2.84 L Hgb 8.2 L Hct 26.7 L MCV 94.0 MCH 28.9 MCHC 30.7 L RDW Std Deviation 47.9 H RDW Coeff of Flavio 14.2 Plt Count 320 MPV 9.7 Immature Gran % (Auto) 1.300 H Neut % (Auto) 66.7 Lymph % (Auto) 17.9 L [place] % (Auto) 10.7 H Eos % (Auto) 3.1 Baso % (Auto) 0.3 Absolute Neuts (auto) 6.9 Absolute Lymphs (auto) 1.84 Nucleated RBC % 0 Sodium Potassium Chloride Carbon Dioxide Anion Gap BUN Creatinine Estim Creat Clear Calc Est GFR (MDRD) Af Amer Est GFR (MDRD) Non-Af BUN/Creatinine Ratio Glucose Calcium Total Bilirubin AST ALT Alkaline Phosphatase Total Protein Albumin Globulin Albumin/Globulin Ratio POC Glucose 300 H 270 H 12/15/20 12/15/20 12/15/20 04:35 06:37 11:27 WBC RBC Hgb Hct MCV MCH MCHC RDW Std Deviation RDW Coeff of Flavio Plt Count MPV Immature Gran % (Auto) Neut % (Auto) Lymph % (Auto) [place] % (Auto) Eos % (Auto) Baso % (Auto) Absolute Neuts (auto) Absolute Lymphs (auto) Nucleated RBC % Sodium 139 Potassium 3.4 L Chloride 101 Carbon Dioxide 30.0 Anion Gap 8 BUN 41 H Creatinine 1.88 H Estim Creat Clear Calc 33.82 Est GFR (MDRD) Af Amer 45 L Est GFR (MDRD) Non-Af 37 L BUN/Creatinine Ratio 21.8 H Glucose 204 H Calcium 8.6 Total Bilirubin 0.60 AST 25 ALT 19 Alkaline Phosphatase 101 Total Protein 6.5 Albumin 2.2 L Globulin 4.3 H Albumin/Globulin Ratio 0.5 L POC Glucose 237 H 287 H Microbiology: Microbiology 12/15/20 13:20 Stool Occult Blood (AKIN) - Final Stool Microbiology 12/15/20 13:20 Stool Stool Occult Blood (AKIN) - Final 12/12/20 02:50 Blood Culture (Wb) #2 - Anticubital Right Blood Culture - Preliminary No growth in 48 hours. 12/12/20 02:50 Blood Culture (Wb) - Arm Left Blood Culture - Preliminary No growth in 48 hours. 12/12/20 08:30 Mucosa - Nasopharyngeal Respiratory Panel (PCR) - Final 12/12/20 00:05 Mucosa - Nose SARS-CoV-2 Antigen (Rapid) - Final D/C Instructions Please follow up with your Primary Care Physician in: within 2 weeks Please Follow Up With: Mariia Field MD Meaningful Use Info Meaningful Use Diagnoses (Choose all that apply): CHF CHF MARIJA/ARB ordered at discharge?: No Reason MARIJA/ARB not ordered?: Not indicated Documented LVEF (%): 70 Discharge Plan Admission Admit Date/Time: 12/12/20 10:26 Primary Reason for Your Visit: Shortness of breath Attending Provider: Giuliana Lockhart Primary Care Provider: Tosha Shrestha Consulting Providers: Narayan Tanner ; Douglas Quiroz ; Therese Rehman VENDING MACHINE FILLER ; Mohit Jackson ; Mariia Field Discharge Orders/Prescriptions Prescriptions: New furosemide 40 mg Tablet 40 mg PO BID@1000,1800 Qty: 0 RF: 0 acetaminophen [Tylenol] 325 mg Tablet 650 mg PO Q4H PRN PRN (Reason: Pain 1-10 Or Fever) Qty: 0 RF: 0 Lantus Solostar U-100 Insulin 100 unit/mL (3 mL) Insulin Pen 10 unit subcut BID 30 Days Qty: 0 RF: 0 Continued amlodipine 5 mg tablet 5 mg PO BID Qty: 180 RF: 1 apremilast 30 MG tablet 30 mg PO BID RF: 0 finasteride 5 mg tablet 5 mg PO DAILY Qty: 90 RF: 3 flecainide 100 mg tablet 100 mg PO Q12H Qty: 180 RF: 3 simvastatin 20 mg tablet 20 mg PO QHS Qty: 90 RF: 3 dulaglutide 1.5 mg/0.5 mL pen injector 1.5 mg SC QWEEK 90 Days Qty: 6.5 RF: 3 metoprolol succinate 25 mg tablet extended release 24 hr 75 mg PO BID 90 Days Qty: 540 RF: 3 Discontinued pramipexole 1 mg tablet 2 mg PO QHS Qty: 180 RF: 3 levomilnacipran 40 MG capsule,extended release 24 hr 40 mg PO DAILY RF: 0 oxycodone-acetaminophen 1 TABLET tablet 1 tablet PO Q4H PRN PRN (Reason: Pain) 7 Days Qty: 14 RF: 0 ciprofloxacin HCl 500 MG tablet 500 mg PO BID Qty: 10 RF: 0 Referrals: Mariia Field DO [STAFF PHYSICIAN] - Within 2 Weeks Tosha Shrestha MD [Primary Care Provider] - Mohit Jackson MD [STAFF PHYSICIAN] - Within 2 Weeks Disposition Patient Disposition: Detention Facility Visit Charges Inpatient E&M: 07979 Disch Hosp
--- NOTE | 2020-12-15 16:05 | PHA.DC.MR ---
Pharmacy Service has performed discharge medication reconciliation for this [facility] Home Medications finasteride 5 mg tablet 5 mg PO DAILY #90 tablet 11/03/18 flecainide 100 mg tablet 100 mg PO Q12H #180 tablet 02/10/20 simvastatin 20 mg tablet 20 mg PO QHS #90 tablet 05/10/20 pramipexole 1 mg tablet 2 mg PO QHS #180 tablet 08/23/20 dulaglutide 1.5 mg/0.5 mL subcutaneous pen injector 1.5 mg SC QWEEK 90 Days #6.5 ml 11/13/20 apremilast 30 mg PO BID 11/22/20 levomilnacipran 40 mg PO DAILY 11/22/20 metoprolol succinate 25 mg tablet,extended release 24 hr 75 mg PO BID 90 Days #540 tablet 11/24/20 amlodipine 5 mg tablet 5 mg PO BID #180 tablet 12/05/20 ciprofloxacin HCl 500 mg PO BID #10 tab 12/06/20 oxycodone-acetaminophen 1 tablet PO Q4H PRN PRN 7 Days #14 tab 12/06/20 The patient's discharge medication list was reviewed for discrepancies and discrepancies were resolved.
--- NOTE | 2020-12-15 16:29 | CASEMGMT ---
Addendum entered by Saranya Lynn 12/15/20 17:00: Pt and requesting later transportation time. Call to [facility] and transport changed to 1930 pickup. PT informed and agreeable. Nursing updated. MAURISIO Wood Original Note: Social Work Return call from [facility] and they are able to accept pt today. met with pt and in room and informed of acceptance. Both are agreeable to transfer to [facility] today. Questions answered and phone number to [facility] provided to pt to call and check on visiting hours and personal belongings. Pt to bring in [facility] medication from home to SNF per their request. Discussed transportation and pt and agreeable to transport via wheelchair Van and are aware of cost. Palliative Care notified that pt will be transferring to [facility] and to follow there. [facility] notified of Palliative care involvement. Orders faxed to the [facility] and Transportation arranged with [facility] for 1730 pickup via Wheel Chair [facility]. Convalescent form 7000 completed in [facility] system. Physician, nursing, pt and updated on discharge plan. MAURISIO Wood
[2020-12-15 16:56] LABS: Bedside Glucose 216 mg/dL (70-110)
== END 2020-12-15 19:50 | DRG 682 ==
LOC: ED 12-12 00:45 → ICU 12-12 08:47 → PCU 12-13 12:02
PROVIDERS: Admitting Provider Hospitalist; Emergency Provider Emergency Medicine; PCP Internal Medicine; Visit Provider Internal Medicine
DX: N17.9 Acute kidney failure, unspecified (principal); J96.01 Acute respiratory failure with hypoxia; I50.33 Acute on chronic diastolic (congestive) heart failure; I13.0 Hypertensive heart and chronic kidney disease with heart failure and stage 1 through stage 4 chronic kidney disease, or unspecified chronic kidney disease; E87.1 Hypo-osmolality and hyponatremia; E11.42 Type 2 diabetes mellitus with diabetic polyneuropathy; G47.33 Obstructive sleep apnea (adult) (pediatric); G25.81 Restless legs syndrome; E78.5 Hyperlipidemia, unspecified; N18.30 Chronic kidney disease, stage 3 unspecified; D50.9 Iron deficiency anemia, unspecified; S37.019D Minor contusion of unspecified kidney, subsequent encounter; X58.XXXD Exposure to other specified factors, subsequent encounter; N40.0 Benign prostatic hyperplasia without lower urinary tract symptoms; I25.10 Atherosclerotic heart disease of native coronary artery without angina pectoris; E11.22 Type 2 diabetes mellitus with diabetic chronic kidney disease; Z82.49 Family history of ischemic heart disease and other diseases of the circulatory system; Z79.899 Other long term (current) drug therapy
CPT/HCPCS: 36415; 70450; 71045; 71250; 74176; 76770; 80053; 80069; 81001; 82274; 82570; 82728; 82962; 83540; 83550; 83605; 83880; 84300; 84484; 85014; 85018; 85025; 85610; 85730; 87040; 87426; 87633; 93005; 94002; 94003; 97110; 97162; 97166; 97530; 97802; 97803; 99284; 99285; J7030; J7040; J7050; A4216; J1940; J2916

== ENCOUNTER → 2021-01-01 13:38 | Outpatient (CLI) | payer MEDICARE, BC, SELFPAY ==
[2020-12-12 05:45] VITALS: BMI 29.7
[2021-01-01 14:48] LABS: Absolute Lymphocyte Count 1.49 X10^3/uL (0.83-4.51); Basophil# 0.04 X10^3/uL; Basophil% 0.8 % (0-1); Eosinophil# 0.08 X10^3/uL; Eosinophils% 1.5 % (0-5); Hematocrit 26.5 % (40-54); Hemoglobin 8.3 g/dL (13.0-16.5); Lymphocyte # 1.49 X10^3/ul (0.83-4.51); Lymphocyte % 28.3 % (19-41); Mean Corp Hgb Conc 31.3 g/dL (32-36); Mean Corpuscular Hgb 29.2 pg (27.0-32.0); Mean Corpuscular Volume 93.3 fL (80-94); Mean Platelet Vol. 9.7 fl (6.2-12.0); Monocyte% 11.4 % (0-10); NRBC Flagged by Analyzer 0 % (0-5); Neutrophil # 3.03 X10^3/uL (2.7-7.7); Neutrophil % 57.6 % (47-70); Platelet Count 298 K/mm3 (150-450); RBC Distribution Width CV 13.9 % (11.6-14.6); RBC Distribution Width SD 47.8 fl (35.1-43.9); Red Blood Count 2.84 M/mm3 (4.6-6.2); White Blood Count 5.3 K/mm3 (4.4-11.0)
[2021-01-01 15:20] LABS: ALB/GLOB Ratio 0.8 RATIO (0.9-2.4); AST(SGOT) 21 U/L (15-37); Alanine Aminotransfer ALT/SGPT 18 U/L (16-61); Alkaline Phosphatase 80 U/L (45-117); Anion Gap 6 (5-15); BUN 35 mg/dL (7-18); BUN/Creat Ratio 20.7 RATIO (10-20); Calcium,Total 9.1 mg/dL (8.5-10.1); Chloride 105 mmol/L (98-107); Creatinine, Serum 1.69 mg/dL (0.70-1.30); EST Glomerular Filtration Rate 42 mL/min (>60); Est Glom Filt Rate - Afr Amer 50 mL/min (>60); Globulin 3.9 g/dL (2.2-4.2); Glucose 182 mg/dL (74-106); Potassium 4.1 mmol/L (3.5-5.1); Protein, Total 6.9 g/dL (6.4-8.2); Sodium Level 136 mmol/L (136-145)
== END ==
PROVIDERS: PCP Internal Medicine; Referring Provider Internal Medicine Rheumatology; Visit Provider Internal Medicine Rheumatology
DX: L40.59 Other psoriatic arthropathy (principal); M21.40 Flat foot [pes planus] (acquired), unspecified foot; K76.0 Fatty (change of) liver, not elsewhere classified; M17.0 Bilateral primary osteoarthritis of knee; I12.9 Hypertensive chronic kidney disease with stage 1 through stage 4 chronic kidney disease, or unspecified chronic kidney disease; E11.22 Type 2 diabetes mellitus with diabetic chronic kidney disease; N20.0 Calculus of kidney; I48.92 Unspecified atrial flutter; F32.89 Other specified depressive episodes; G47.33 Obstructive sleep apnea (adult) (pediatric); N40.1 Benign prostatic hyperplasia with lower urinary tract symptoms; Z86.718 Personal history of other venous thrombosis and embolism
CPT/HCPCS: 36415; 80053; 85025

== ENCOUNTER → 2021-01-23 12:40 | Outpatient (CLI) | payer MEDICARE, BC, SELFPAY ==
[2021-01-22 07:59] VITALS: BMI 32.3
--- NOTE | 2021-01-23 12:45 | RAD_ITS ---
STUDY: X-RAY - ABDOMEN/PELVIS REASON FOR EXAM: Male, 80 years old. Kidney stone. TECHNIQUE: Single AP view of the abdomen / pelvis. COMPARISON: None. FINDINGS: Normal visualized lung bases. There is an unremarkable bowel gas pattern. There is no demonstrated free abdominal air. Calcified gallstones. 5 mm in diameter vague calcification projected over the lower pole of the left kidney. Normal soft tissue structures. Normal visualized osseous structures. RAD/Abdomen Single View IMPRESSION: Calcified gallstones. Probable left nephrocalcinosis as described. Electronically Signed: Yon Farmer MD at 13:23 EDT , Service support ,
== END ==
PROVIDERS: PCP Internal Medicine; Referring Provider Urology; Visit Provider Urology
DX: N20.0 Calculus of kidney (principal)
CPT/HCPCS: 74018

== ENCOUNTER → 2021-01-24 12:13 | Outpatient (CLI) | payer MEDICARE, BC, SELFPAY ==
[2021-01-02 12:57] VITALS: BMI 31.8
[2021-01-24 10:45] VITALS: BMI 32.3
[2021-01-24 12:39] LABS: Hemoglobin 10.5 g/dL (13.0-16.5); Mean Corp Hgb Conc 31.8 g/dL (32-36); Mean Corpuscular Hgb 29.6 pg (27.0-32.0); Mean Platelet Vol. 9.4 fl (6.2-12.0); Platelet Count 217 K/mm3 (150-450); RBC Distribution Width CV 14.4 % (11.6-14.6); Red Blood Count 3.55 M/mm3 (4.6-6.2); White Blood Count 6.7 K/mm3 (4.4-11.0)
[2021-01-24 13:13] LABS: Albumin, Serum 3.3 g/dL (3.2-5.0); BUN 24 mg/dL (7-18); Calcium,Total 9.4 mg/dL (8.5-10.1); Chloride 107 mmol/L (98-107); Creatinine, Serum 1.09 mg/dL (0.70-1.30); EST Glomerular Filtration Rate 69 mL/min (>60); Est Glom Filt Rate - Afr Amer 83 mL/min (>60); Glucose 134 mg/dL (74-106); Sodium Level 140 mmol/L (136-145)
== END ==
PROVIDERS: PCP Internal Medicine; Referring Provider Internal Medicine Nephrology; Visit Provider Internal Medicine Nephrology
DX: E11.22 Type 2 diabetes mellitus with diabetic chronic kidney disease (principal); N18.31 Chronic kidney disease, stage 3a; E11.21 Type 2 diabetes mellitus with diabetic nephropathy
CPT/HCPCS: 36415; 80069; 85027

== ENCOUNTER → 2021-01-29 12:03 | Outpatient (CLI) | payer MEDICARE, BC, SELFPAY ==
[2021-01-24 10:45] VITALS: BMI 32.3
[2021-01-29 12:53] LABS: Protein, Urine (Random) 105.9 mg/dL (<11.9); Protein:Creat Ratio 2348 mg/g CRE (0-200)
== END ==
PROVIDERS: PCP Internal Medicine; Referring Provider Internal Medicine Nephrology; Visit Provider Internal Medicine Nephrology
DX: E11.22 Type 2 diabetes mellitus with diabetic chronic kidney disease (principal); N18.31 Chronic kidney disease, stage 3a; E11.21 Type 2 diabetes mellitus with diabetic nephropathy; D64.9 Anemia, unspecified
CPT/HCPCS: 82570; 84156

== ENCOUNTER → 2021-02-20 07:48 | Outpatient (CLI) | payer MEDICARE, BC, SELFPAY ==
[2021-01-02 12:57] VITALS: BMI 31.8
[2021-02-07 10:47] VITALS: BMI 32.3
[2021-02-20 09:06] LABS: Hematocrit 37.5 % (40-54); Mean Corpuscular Hgb 29.6 pg (27.0-32.0); Mean Corpuscular Volume 92.4 fL (80-94); Mean Platelet Vol. 9.9 fl (6.2-12.0); Platelet Count 217 K/mm3 (150-450); RBC Distribution Width CV 13.4 % (11.6-14.6); RBC Distribution Width SD 45.7 fl (35.1-43.9); Red Blood Count 4.06 M/mm3 (4.6-6.2); White Blood Count 7.8 K/mm3 (4.4-11.0)
[2021-02-20 09:11] LABS: Protein, Urine (Random) 147.7 mg/dL (<11.9); Protein:Creat Ratio 1509 mg/g CRE (0-200)
[2021-02-20 09:24] LABS: PTHIN 43.2 pg/mL (18.4-80.1)
[2021-02-20 09:26] LABS: Albumin, Serum 3.2 g/dL (3.2-5.0); BUN 26 mg/dL (7-18); BUN/Creat Ratio 22.8 RATIO (10-20); Calcium,Total 9.1 mg/dL (8.5-10.1); Chloride 103 mmol/L (98-107); Creatinine, Serum 1.14 mg/dL (0.70-1.30); EST Glomerular Filtration Rate 65 mL/min (>60); Est Glom Filt Rate - Afr Amer 79 mL/min (>60); Glucose 195 mg/dL (74-106); Phosphorus 3.4 mg/dL (2.5-4.9); Potassium 4.3 mmol/L (3.5-5.1); Sodium Level 134 mmol/L (136-145)
== END ==
PROVIDERS: PCP Internal Medicine; Referring Provider Internal Medicine Nephrology; Visit Provider Internal Medicine Nephrology
DX: N18.31 Chronic kidney disease, stage 3a (principal)
CPT/HCPCS: 36415; 80069; 82570; 83970; 84156; 85027

== ENCOUNTER → 2021-04-03 13:01 | Outpatient (CLI) | payer MEDICARE, BC, SELFPAY ==
[2021-03-20 16:47] VITALS: BMI 32.3
[2021-04-03 13:35] LABS: Absolute Lymphocyte Count 1.78 X10^3/uL (0.83-4.51); Absolute Neutrophil Count 4.8 X10^3/uL (2.0-7.7); Basophil# 0.05 X10^3/uL; Basophil% 0.7 % (0-1); Eosinophil# 0.11 X10^3/uL; Eosinophils% 1.5 % (0-5); Lymphocyte # 1.78 X10^3/ul (0.83-4.51); Mean Corp Hgb Conc 32.5 g/dL (32-36); Mean Corpuscular Hgb 29.3 pg (27.0-32.0); Mean Corpuscular Volume 90.3 fL (80-94); Mean Platelet Vol. 9.4 fl (6.2-12.0); Monocyte# 0.61 X10^3/uL; Monocyte% 8.2 % (0-10); NRBC Flagged by Analyzer 0 % (0-5); Neutrophil # 4.84 X10^3/uL (2.7-7.7); Neutrophil % 65.2 % (47-70); Platelet Count 188 K/mm3 (150-450); RBC Distribution Width CV 12.8 % (11.6-14.6); RBC Distribution Width SD 42.7 fl (35.1-43.9); Red Blood Count 4.43 M/mm3 (4.6-6.2); White Blood Count 7.4 K/mm3 (4.4-11.0)
[2021-04-03 13:53] LABS: ALB/GLOB Ratio 0.9 RATIO (0.9-2.4); AST(SGOT) 26 U/L (15-37); Alanine Aminotransfer ALT/SGPT 34 U/L (16-61); Albumin, Serum 3.3 g/dL (3.2-5.0); Alkaline Phosphatase 77 U/L (45-117); Anion Gap 6 (5-15); BUN 27 mg/dL (7-18); BUN/Creat Ratio 23.3 RATIO (10-20); Calcium,Total 8.8 mg/dL (8.5-10.1); Chloride 103 mmol/L (98-107); Creatinine, Serum 1.16 mg/dL (0.70-1.30); EST Glomerular Filtration Rate 64 mL/min (>60); Est Glom Filt Rate - Afr Amer 78 mL/min (>60); Globulin 3.8 g/dL (2.2-4.2); Glucose 231 mg/dL (74-106); Potassium 4.2 mmol/L (3.5-5.1); Protein, Total 7.1 g/dL (6.4-8.2); Sodium Level 136 mmol/L (136-145)
== END ==
PROVIDERS: PCP Internal Medicine; Referring Provider Internal Medicine Rheumatology; Visit Provider Internal Medicine Rheumatology
DX: L40.59 Other psoriatic arthropathy (principal); L40.8 Other psoriasis; M21.40 Flat foot [pes planus] (acquired), unspecified foot; K76.0 Fatty (change of) liver, not elsewhere classified; M17.0 Bilateral primary osteoarthritis of knee
CPT/HCPCS: 36415; 80053; 85025

== ENCOUNTER 2021-04-23 18:37 | Emergency (ER) | payer MEDICARE, BC, SELFPAY ==
[2021-04-23 18:39] VITALS: BP 163/65; PULSE 52; RESP 16; TEMP 35.8; O2SAT 100; BMI 32.9
--- NOTE | 2021-04-23 19:51 | RAD_ITS ---
STUDY: X-RAY CHEST REASON FOR EXAM: Male, 80 years old. Lightheadedness. TECHNIQUE: Single AP portable view of the chest. COMPARISON: 12/12/2020. FINDINGS: The lungs are clear and expanded. There is resolution of the infiltrate and pleural effusion seen on the prior study. There is no demonstrated pleural abnormality. Normal size heart. Normal mediastinum and lakhwinder. Normal visualized pulmonary arteries. There is atherosclerotic calcification of the aortic arch with tortuosity. There are diffuse degenerative changes of the visualized thoracic spine. There is degenerative osteoarthritis of the bilateral shoulders. There is no demonstrated abnormality of the visualized soft tissue structures of the upper abdomen. RAD/Chest 1 View (Portable) IMPRESSION: Degenerative changes, as described above. No demonstrated acute cardiopulmonary process. Electronically Signed: Konstantin Russell DO at 20:57 EDT Tel [phone], Service support ,
--- NOTE | 2021-04-23 19:51 | EKG12_ITS ---
Test Reason : DIZZY Blood Pressure : / mmHG Vent. Rate : 053 BPM Atrial Rate : 153 BPM P-R Int : 234 ms QRS Dur : 100 ms QT Int : 506 ms P-R-T Axes : 005 056 061 degrees QTc Int : 474 ms Sinus bradycardia Abnormal ECG Confirmed by RIVKA DUNCAN, RAHUL ([id number]), fan mail editor NITZA ROJAS ([id number]) on 04/25/2021 9:15:41 AM Referred By: Confirmed By:RAHUL TINEO MD
--- NOTE | 2021-04-23 19:52 | EX.ED.DYSGE1 ---
HPI History of Present Illness Chief Complaint: Dizziness Informant: patient Narrative Narrative: 80-year-old male presents to the emergency room with lightheadedness. Symptoms are intermittent for the past week and a half. He states that they seem to be worse yesterday and today. Today he was laying down in bed and his feet were cold and he decided he had had enough of this and came to the emergency department. He reportedly has visited with his primary care physician recently regarding this. He states he was unhappy with the outcome. Patient denies any arm or leg weakness/sensory changes. No speech changes. No head injuries recently. No palpitations or pain. No medication changes. [facility] Medical History (HFpEF) heart failure with preserved ejection fraction (12/12/20) Acute respiratory failure with hypoxia Anemia Anemia of chronic renal failure, stage 3 (moderate) Anxiety and depression Atherosclerotic heart disease of [place] coronary artery without angina pectoris Atrial flutter Back pain BMI 34.0-34.9,adult BPH (benign prostatic hyperplasia) BPPV (benign paroxysmal positional vertigo) Cardiac dysrhythmia De Quervain's tenosynovitis Dermatitis Diabetes mellitus Diabetic kidney disease Dizziness DM type 2 with diabetic peripheral neuropathy Dyslipidemia Essential (primary) hypertension Fall Fracture of great toe History of renal calculi HLD (hyperlipidemia) Iron deficiency anemia Iron deficiency anemia due to chronic blood loss Kidney hematoma (12/08/20) Loss of equilibrium Malaise Near syncope Open wound of left lower extremity Orthostatic hypotension MACHELLE (obstructive sleep apnea) Paroxysmal atrial flutter Pneumonia Polypharmacy Renal calculi RLS (restless legs syndrome) SVT (supraventricular tachycardia) Urolithiasis Vertigo Home Medications finasteride 5 mg tablet 5 mg PO DAILY #90 tablet 11/03/18 [Rx Last Taken Unknown] simvastatin 20 mg tablet 20 mg PO QHS #90 tablet 05/10/20 [Rx Last Taken Unknown] apremilast 30 mg PO BID 11/22/20 [History Last Taken Unknown] acetaminophen [Tylenol] 650 mg PO Q4H PRN PRN #0 tab 12/15/20 [Rx Last Taken Unknown] blood sugar diagnostic #100 ea 01/04/21 [Rx Last Taken Unknown] metoprolol succinate 25 mg tablet,extended release 24 hr 75 mg PO BID tab 01/08/21 [History Last Taken Unknown] ergocalciferol (vitamin D2) 1,250 mcg (50,000 unit) capsule 50,000 unit PO QMONTH cap 01/24/21 [History Last Taken Unknown] ferrous sulfate 325 mg (65 mg iron) tablet 325 mg PO Q OTHER DAY #90 tab 02/07/21 [Rx Last Taken Unknown] furosemide 20 mg tablet 20 mg PO BID #180 tab 02/07/21 [Rx Last Taken Unknown] levomilnacipran 40 mg capsule,24 hr,extended release 40 mg PO DAILY #90 cap 02/07/21 [Rx Last Taken Unknown] flecainide 100 mg tablet 100 mg PO Q12H #180 tablet 02/20/21 [Rx Last Taken Unknown] blood pressure monitor #1 ea 03/13/21 [Rx Last Taken Unknown] lisinopril 2.5 mg tablet 5 mg PO DAILY tab 03/13/21 [History Last Taken Unknown] dulaglutide 1.5 mg SC UD 04/23/21 [History Last Taken Unknown] Allergy/AdvReac Type Severity Reaction Status Date / Time hydrocodone bitartrate AdvReac Severe Other Verified 04/20/21 15:08 [From Vicodin] hydroxyzine AdvReac Severe Other Verified 04/20/21 15:08 Family History Father Diabetes Hypertension Cancer Lung cancer Mother Hypertension CVA (cerebral vascular accident) Sister Diabetes Son Diabetes Surgical History History of cardioversion (2015) History of cataract surgery History of left heart catheterization (02/16/13) History of lithotripsy (11/2020) History of radiofrequency ablation procedure for cardiac arrhythmia (02/05/06) history of right knee cap fracture History of right knee surgery Status post laser lithotripsy of ureteral calculus Status post left foot surgery STENT PLACEMENT FOR KIDNEY STONE Social History Smoking Status: Former smoker how long ago did patient quit smokin second hand exposure: No alcohol intake: never substance use type: does not use caffeine: No what type of physical activity do you participate in: none seatbelt use: always do you feel safe at home: Yes ROS ROS ED ROS Narrative Lightheadedness Constitutional Constitutional ED: Denies chills or weight loss Eyes Eyes: Denies change in vision or diplopia ENT ENT ED: Denies ear pain, rhinorrhea or sore throat Cardiovascular Cardiovascular: Denies chest pain, orthopnea, palpitations or racing heartbeat Respiratory/Chest Respiratory/Chest: Denies cough, dyspnea or orthopnea Gastrointestinal Gastrointestinal: Denies abdominal pain, diarrhea, nausea or vomiting Genitourinary Genitourinary ED: Denies dysuria, hematuria or urinary frequency Musculoskeletal Musculoskeletal: Denies arthralgias or myalgias Integumentary Denies abscess or rash Neurologic Neurologic: Denies headache(s) or weakness Psychiatric Psychiatric: Denies anxiety, depression, suicidal ideation or suicidal thoughts Endocrine Endocrinology: Denies polydipsia, polyphagia or polyuria Allergic/Immunologic Allergic/Immunologic ED: Denies mouth swelling, tongue swelling or urticaria EXAM Physical Exam Const Vital Signs: 04/23/21 18:39 04/23/21 21:02 Temperature 96.5 F L Temperature Source Temporal Pulse Rate 52 L Pulse Rate [Lying] 56 L Pulse Rate [Sitting] 57 L Pulse Rate [Standing] 59 L Respiratory Rate 16 Blood Pressure 163/65 H Blood Pressure [Lying] 147/68 H Blood Pressure [Sitting] 168/64 H Blood Pressure [Standing] 161/74 H Blood Pressure Mean 97 Blood Pressure Mean [Lying] 94 Blood Pressure Mean [Sitting] 98 Blood Pressure Mean [Standing] 103 Pulse Ox 100 Oxygen Delivery Method Room Air Positive well nourished and well developed General Appearance ED: well developed HEENT Reports normocephalic, head/scalp atraumatic and moist mucous membranes Eyes PERRL and EOMs intact bilaterally Neck no lymphadenopathy, supple and no JVD Resp normal respiratory effort and clear to auscultation bilaterally Cardio regular rate, regular rhythm and no murmurs GI normal to inspection, nondistended, normoactive bowel sounds and non-tender Palpation: soft Back/Spine no CVA tenderness and normal ROM Extremity normal to inspection General Extremety ED: Negative for edema General Extremity: Negative for edema Neuro oriented x3 and CN's II-XII intact bilaterally Sensorium / Orientation: alert Motor Exam: strength 5/5 throughout Psych mental status grossly normal Mood & Affect: Negative for depressed or tearful Skin no rashes or lesions noted and no wounds MDM MDM MDM Narrative Medical decision making narrative: Basic blood work essentially negative. Hemoglobin 12.3. Creatinine 1.22 glucose 158 liver enzymes normal troponin high-sensitivity 15 my termination of the chest x-ray is no acute process. EKG demonstrates a sinus rhythm with a ventricular rate of 53. Orthostatics are negative at this point I am not seeing anything emergent to hospitalize the patient for. I do think he warrants further investigation into his symptoms. I believe this can be best done at his family doctor's office at this point. Lab Data Attestation: I reviewed the patient's lab results. Labs: Laboratory Results - last 24 hr 04/23/21 04/23/21 19:05 19:05 WBC 7.0 RBC 4.13 L Hgb 12.3 L Hct 38.1 L MCV 92.3 MCH 29.8 MCHC 32.3 RDW Std Deviation 43.2 RDW Coeff of Flavio 13.0 Plt Count 185 MPV 9.8 Immature Gran % (Auto) 0.600 Neut % (Auto) 53.7 Lymph % (Auto) 31.0 [place] % (Auto) 10.5 H Eos % (Auto) 3.3 Baso % (Auto) 0.9 Absolute Neuts (auto) 3.8 Absolute Lymphs (auto) 2.16 Nucleated RBC % 0 Sodium 137 Potassium 4.5 Chloride 102 Carbon Dioxide 30.0 Anion Gap 5 BUN 27 H Creatinine 1.22 Estim Creat Clear Calc 52.12 Est GFR (MDRD) Af Amer 73 Est GFR (MDRD) Non-Af 61 BUN/Creatinine Ratio 22.1 H Glucose 158 H Calcium 8.9 Total Bilirubin 0.50 AST 20 ALT 31 Alkaline Phosphatase 76 Troponin I High Sens 15 Total Protein 7.3 Albumin 3.1 L Globulin 4.2 Albumin/Globulin Ratio 0.7 L Radiography Diagnostic Testing: Radiology Impression Chest X-Ray 04/23/21 19:51 IMPRESSION: Degenerative changes, as described above. No demonstrated acute cardiopulmonary process. Electronically Signed: Konstantin Russell DO at 20:57 EDT Tel [phone], Service support , Discharge Plan Triage Chief Complaint: Dizziness ED Provider: Edward Oconnor Dx/Rx/DC Orders Clinical Impression: Light-headedness, Weakness Instructions: ED Dizziness, Uncertain Cause Prescriptions: No Action ergocalciferol (vitamin D2) 1,250 mcg (50,000 unit) capsule 50,000 unit PO QMONTH RF: 0 furosemide 20 mg tablet 20 mg PO BID Qty: 180 RF: 2 Fetzima 40 mg capsule,extended release 24 hr 40 mg PO DAILY Qty: 90 RF: 3 ferrous sulfate 325 mg (65 mg iron) tablet 325 mg PO Q OTHER DAY Qty: 90 RF: 3 (DME) blood pressure monitor Kit See Rx Instructions .ROUTE .MEDSUPPLY Qty: 1 RF: 0 apremilast 30 MG tablet 30 mg PO BID RF: 0 acetaminophen [Tylenol] 325 mg Tablet 650 mg PO Q4H PRN PRN (Reason: Pain 1-10 Or Fever) Qty: 0 RF: 0 dulaglutide 3 mg/0.5 mL pen injector 1.5 mg SC UD RF: 0 finasteride 5 mg tablet 5 mg PO DAILY Qty: 90 RF: 3 simvastatin 20 mg tablet 20 mg PO QHS Qty: 90 RF: 3 (DME) blood sugar diagnostic Strip See Rx Instructions .ROUTE .MEDSUPPLY Qty: 100 RF: 0 metoprolol succinate 25 mg tablet extended release 24 hr 75 mg PO BID RF: 0 flecainide 100 mg tablet 100 mg PO Q12H Qty: 180 RF: 3 lisinopril 2.5 mg tablet 5 mg PO DAILY RF: 0 Primary Care Provider: Tosha Shrestha Referrals: Tosha Shrestha MD [Primary Care Provider] - As soon as possible Disposition Disposition: Home, Self Care
[2021-04-23 20:04] LABS: Absolute Lymphocyte Count 2.16 X10^3/uL (0.83-4.51); Absolute Neutrophil Count 3.8 X10^3/uL (2.0-7.7); Basophil# 0.06 X10^3/uL; Basophil% 0.9 % (0-1); Eosinophil# 0.23 X10^3/uL; Eosinophils% 3.3 % (0-5); Hematocrit 38.1 % (40-54); Hemoglobin 12.3 g/dL (13.0-16.5); Lymphocyte # 2.16 X10^3/ul (0.83-4.51); Mean Corp Hgb Conc 32.3 g/dL (32-36); Mean Corpuscular Hgb 29.8 pg (27.0-32.0); Mean Corpuscular Volume 92.3 fL (80-94); Mean Platelet Vol. 9.8 fl (6.2-12.0); Monocyte# 0.73 X10^3/uL; Monocyte% 10.5 % (0-10); NRBC Flagged by Analyzer 0 % (0-5); Neutrophil # 3.75 X10^3/uL (2.7-7.7); Neutrophil % 53.7 % (47-70); Platelet Count 185 K/mm3 (150-450); RBC Distribution Width SD 43.2 fl (35.1-43.9); Red Blood Count 4.13 M/mm3 (4.6-6.2)
[2021-04-23 20:19] LABS: ALB/GLOB Ratio 0.7 RATIO (0.9-2.4); AST(SGOT) 20 U/L (15-37); Alanine Aminotransfer ALT/SGPT 31 U/L (16-61); Albumin, Serum 3.1 g/dL (3.2-5.0); Alkaline Phosphatase 76 U/L (45-117); Anion Gap 5 (5-15); BUN 27 mg/dL (7-18); BUN/Creat Ratio 22.1 RATIO (10-20); Calcium,Total 8.9 mg/dL (8.5-10.1); Chloride 102 mmol/L (98-107); Creatinine, Serum 1.22 mg/dL (0.70-1.30); EST Glomerular Filtration Rate 61 mL/min (>60); Est Glom Filt Rate - Afr Amer 73 mL/min (>60); Estimated Creatinine Clearance 52.12 ml/min; Globulin 4.2 g/dL (2.2-4.2); Glucose 158 mg/dL (74-106); Potassium 4.5 mmol/L (3.5-5.1); Protein, Total 7.3 g/dL (6.4-8.2); Sodium Level 137 mmol/L (136-145); Troponin-I HS 15 pg/mL (3.0-78.0)
[2021-04-23 21:02] VITALS: BP 147/68; BP 161/74; BP 168/64; PULSE 56; PULSE 57; PULSE 59
== END 2021-04-23 21:30 | disposition home or self-care (01) ==
PROVIDERS: Emergency Provider Emergency Medicine; PCP Internal Medicine
DX: R42 Dizziness and giddiness (principal); R53.1 Weakness; I25.10 Atherosclerotic heart disease of native coronary artery without angina pectoris; E78.5 Hyperlipidemia, unspecified; I48.92 Unspecified atrial flutter; I11.0 Hypertensive heart disease with heart failure; I50.32 Chronic diastolic (congestive) heart failure; Z87.891 Personal history of nicotine dependence; Z87.442 Personal history of urinary calculi; Z79.899 Other long term (current) drug therapy
CPT/HCPCS: 71045; 80053; 84484; 85025; 93005; 99284; A4216

== ENCOUNTER 2021-05-22 18:36 | Emergency (ER) | payer MEDICARE, BC, SELFPAY ==
[2021-05-22 18:38] VITALS: BP 203/84; PULSE 88; RESP 16; TEMP 36.4; O2SAT 96; BMI 35.4
--- NOTE | 2021-05-22 20:00 | RAD_ITS ---
STUDY: X-RAY CHEST REASON FOR EXAM: Male, 80 years old. Chest pain TECHNIQUE: Single frontal view of the chest. COMPARISON: 04/23/2021. FINDINGS: The lungs are clear and expanded. There is no demonstrated pleural abnormality. Normal size heart. Normal mediastinum and lakhwinder. Normal visualized pulmonary arteries. There is atherosclerotic calcification of the aortic arch with tortuosity. Normal visualized thoracic spine. Normal visualized ribs, clavicles, and shoulders. There is no demonstrated abnormality of the visualized soft tissue structures of the upper abdomen. RAD/Chest 1 View (Portable) IMPRESSION: No acute process identified. Electronically Signed: Tigre Charles MD at 20:26 EDT Tel , Service support ,
[2021-05-22 20:18] LABS: Absolute Lymphocyte Count 2.48 X10^3/uL (0.83-4.51); Absolute Neutrophil Count 4.1 X10^3/uL (2.0-7.7); Basophil# 0.05 X10^3/uL; Basophil% 0.6 % (0-1); Eosinophil# 0.28 X10^3/uL; Eosinophils% 3.6 % (0-5); Hematocrit 44.3 % (40-54); Hemoglobin 14.2 g/dL (13.0-16.5); Lymphocyte # 2.48 X10^3/ul (0.83-4.51); Lymphocyte % 32.2 % (19-41); Mean Corp Hgb Conc 32.1 g/dL (32-36); Mean Corpuscular Hgb 29.7 pg (27.0-32.0); Mean Corpuscular Volume 92.7 fL (80-94); Mean Platelet Vol. 10.3 fl (6.2-12.0); Monocyte# 0.74 X10^3/uL; Monocyte% 9.6 % (0-10); NRBC Flagged by Analyzer 0 % (0-5); Neutrophil # 4.09 X10^3/uL (2.7-7.7); Neutrophil % 53.2 % (47-70); Platelet Count 237 K/mm3 (150-450); RBC Distribution Width CV 13.5 % (11.6-14.6); RBC Distribution Width SD 45.9 fl (35.1-43.9); Red Blood Count 4.78 M/mm3 (4.6-6.2); White Blood Count 7.7 K/mm3 (4.4-11.0)
[2021-05-22 20:31] LABS: Anion Gap 9 (5-15); BUN 31 mg/dL (7-18); BUN/Creat Ratio 24.2 RATIO (10-20); Calcium,Total 9.9 mg/dL (8.5-10.1); Chloride 101 mmol/L (98-107); Creatinine, Serum 1.28 mg/dL (0.70-1.30); EST Glomerular Filtration Rate 57 mL/min (>60); Est Glom Filt Rate - Afr Amer 69 mL/min (>60); Estimated Creatinine Clearance 49.68 ml/min; Glucose 175 mg/dL (74-106); Potassium 4.2 mmol/L (3.5-5.1); Sodium Level 139 mmol/L (136-145); Troponin-I HS 20 pg/mL (3.0-78.0)
--- NOTE | 2021-05-22 20:39 | EKG12_ITS ---
Test Reason : DYSRYTHMIA Blood Pressure : / mmHG Vent. Rate : 068 BPM Atrial Rate : 068 BPM P-R Int : 224 ms QRS Dur : 096 ms QT Int : 462 ms P-R-T Axes : 026 042 056 degrees QTc Int : 491 ms Sinus rhythm with 1st degree A-V block Prolonged QT Abnormal ECG Confirmed by AVILA DUNCAN, ALBERTO ([id number]), editor book NITZA ROJAS ([id number]) on 05/28/2021 9:46:56 A M Referred By: BEN Confirmed By:SCARLETT GRAMAJO MD
--- NOTE | 2021-05-22 21:48 | ED.VIS.GI ---
HPI HPI - GI History of Present Illness Chief Complaint: Foreign Body Detail of Chief Complaint: Concern for esophageal impaction Informant: patient Narrative Narrative: Patient presents to the emergency department stating that he was eating at [employer] and began eating some steak and mashed potatoes as well as some shrimp. Patient began belching and retching. He had pressure in his chest and had a hard time swallowing. He tried to drink some coke but it came right back up. He is never had this happen before. On arrival to emergency department he states that he feels like maybe he has passed. Prior similar symptoms: No PFSH PFSH Medical History (Updated 05/22/21 @ 21:[address] Sathya Gonzalez, DO) (HFpEF) heart failure with preserved ejection fraction (12/12/20) Acute respiratory failure with hypoxia Anemia Anemia of chronic renal failure, stage 3 (moderate) Anxiety and depression Atherosclerotic heart disease of [place] coronary artery without angina pectoris Atrial flutter Back pain BMI 34.0-34.9,adult BPH (benign prostatic hyperplasia) BPPV (benign paroxysmal positional vertigo) Cardiac dysrhythmia De Quervain's tenosynovitis Dermatitis Diabetes mellitus Diabetic kidney disease Dizziness DM type 2 with diabetic peripheral neuropathy Dyslipidemia Essential (primary) hypertension Fall Fracture of great toe Health care maintenance History of renal calculi HLD (hyperlipidemia) Iron deficiency anemia Iron deficiency anemia due to chronic blood loss Kidney hematoma (12/08/20) Loss of equilibrium Malaise Near syncope Open wound of left lower extremity Orthostatic hypotension MACHELLE (obstructive sleep apnea) Paroxysmal atrial flutter Pneumonia Polypharmacy Renal calculi RLS (restless legs syndrome) SVT (supraventricular tachycardia) Urolithiasis Vertigo Home Medications finasteride 5 mg tablet 5 mg PO DAILY #90 tablet 11/03/18 [Rx Last Taken Unknown] simvastatin 20 mg tablet 20 mg PO QHS #90 tablet 05/10/20 [Rx Last Taken Unknown] apremilast 30 mg PO BID 11/22/20 [History Last Taken Unknown] acetaminophen [Tylenol] 650 mg PO Q4H PRN PRN #0 tab 12/15/20 [Rx Last Taken Unknown] blood sugar diagnostic #100 ea 01/04/21 [Rx Last Taken Unknown] metoprolol succinate 25 mg tablet,extended release 24 hr 75 mg PO BID tab 01/08/21 [History Last Taken Unknown] ergocalciferol (vitamin D2) 1,250 mcg (50,000 unit) capsule 50,000 unit PO QMONTH cap 01/24/21 [History Last Taken Unknown] ferrous sulfate 325 mg (65 mg iron) tablet 325 mg PO Q OTHER DAY #90 tab 02/07/21 [Rx Last Taken Unknown] levomilnacipran 40 mg capsule,24 hr,extended release 40 mg PO DAILY #90 cap 02/07/21 [Rx Last Taken Unknown] flecainide 100 mg tablet 100 mg PO Q12H #180 tablet 02/20/21 [Rx Last Taken Unknown] blood pressure monitor #1 ea 03/13/21 [Rx Last Taken Unknown] lisinopril 2.5 mg tablet 5 mg PO DAILY tab 03/13/21 [History Last Taken Unknown] dulaglutide 1.5 mg SC UD 04/23/21 [History Last Taken Unknown] furosemide 20 mg tablet 20 mg PO BID #180 tab 05/11/21 [Rx Last Taken Unknown] pramipexole 1 mg tablet 2 mg PO QHS tab 05/15/21 [History Last Taken Unknown] Allergy/AdvReac Type Severity Reaction Status Date / Time hydrocodone bitartrate AdvReac Severe Other Verified 05/22/21 18:37 [From Vicodin] hydroxyzine AdvReac Severe Other Verified 05/22/21 18:37 Family History Father Diabetes Hypertension Cancer Lung cancer Mother Hypertension CVA (cerebral vascular accident) Sister Diabetes Son Diabetes Surgical History History of cardioversion (2015) History of cataract surgery History of left heart catheterization (02/16/13) History of lithotripsy (11/2020) History of radiofrequency ablation procedure for cardiac arrhythmia (02/05/06) history of right knee cap fracture History of right knee surgery Status post laser lithotripsy of ureteral calculus Status post left foot surgery STENT PLACEMENT FOR KIDNEY STONE Social History Smoking Status: Former smoker how long ago did patient quit smokin second hand exposure: No alcohol intake: never substance use type: does not use caffeine: No what type of physical activity do you participate in: none seatbelt use: always do you feel safe at home: Yes ROS ROS ED Constitutional Constitutional ED: Reports systems reviewed and no addt'l complaints, except as documented; Denies body ache(s), change in weight or chills Eyes Eyes: Denies acute decrease in peripheral vision, change in vision, double vision or loss of vision ENT ENT ED: Reports none; Denies ear pain, lip swelling, loss taste/smell, neck pain, otalgia or sore throat Cardiovascular Cardiovascular: Reports none; Denies abdominal pain, chest pain with activity, leg edema, lightheadedness, palpitations, rapid heart rate or syncope Respiratory/Chest Respiratory/Chest: Reports none; Denies change in mental status, dry cough, dyspnea, hemoptysis, shortness of breath at rest or shortness of breath with exertion Gastrointestinal Gastrointestinal: Reports none and other Details: Difficulty swallowing ; Denies abdominal pain, change in stool character, diarrhea, hematemesis, hematochezia, melena, rectal bleeding or vomiting Genitourinary Genitourinary ED: Reports none; Denies abdominal discomfort, anuria, dysuria, genital pain or polyuria Musculoskeletal Musculoskeletal: Reports none; Denies arthralgias, back pain, difficulty walking, extremity pain, muscle weakness or myalgias Integumentary Reports none; Denies abscess or rash Neurologic Neurologic: Reports none; Denies abnormal gait, confusion, focal weakness, frequent falls, headache(s), loss of vision, numbness, paresthesias, radicular pain, vertigo or weakness Psychiatric Psychiatric: Reports systems reviewed and no addt'l complaints, except as documented and none; Denies behavioral changes, confusion, difficulty concentrating, hallucinations, suicidal ideation, tactile hallucinations or visual hallucinations Endocrine Endocrinology: Denies none, cold intolerance, excessive sweating, fatigue or heat intolerance Hematologic/Lymphatic Hematologic/Lymphatic: Reports none; Denies anemia, easy bleeding or easy bruising Allergic/Immunologic Allergic/Immunologic ED: Denies as per HPI, none, lip swelling, mouth swelling, throat swelling, tongue swelling or hives EXAM Physical Exam Const Vital Signs: 05/22/21 18:38 05/22/21 18:55 Temperature 97.5 F L Temperature Source Temporal Pulse Rate 88 Respiratory Rate 16 Respiratory Effort Normal Respiratory Pattern Normal Blood Pressure 203/84 H Blood Pressure Mean 123 Pulse Ox 96 Oxygen Delivery Method Room Air Positive well nourished and well developed General Appearance ED: well developed and NAD HEENT Reports TM's clear and moist mucous membranes normocephalic and atraumatic; Negative for trauma or tenderness Tympanic Membrane ED: Yes TM's clear Eyes PERRL and EOMs intact bilaterally General Eye ED: Negative for pale conjunctiva or scleral icterus Neck no lymphadenopathy, supple and no JVD General: Negative for tenderness Chest Wall inspection of chest normal and palpation of chest normal Chest: Negative for tenderness Resp normal respiratory effort and clear to auscultation bilaterally Effort and Inspection: Negative for respiratory distress or pain with movement Auscultation: Negative for rhonchi, wheezes or diminished lung sounds Cardio regular rate, regular rhythm, S1 normal heart sound, S2 normal heart sound and no murmurs Peripheral Pulses: pulses 2+ throughout GI normal to inspection, nondistended, normoactive bowel sounds, soft to palpation, non-tender, non-distended and no masses Back/Spine no CVA tenderness and no thoracic nor lumbar tenderness Extremity normal to inspection General Extremety ED: Negative for edema General Extremity: Negative for edema Neuro oriented x3, CN's II-XII intact bilaterally, no sensory deficits noted and gait normal Sensorium / Orientation: awake, alert, oriented to person, oriented to place and oriented to time Motor Exam: strength 5/5 throughout and strength abnormal Psych mental status grossly normal Skin no rashes or lesions noted and no wounds MDM MDM MDM Narrative Medical decision making narrative: Patient's work-up unremarkable in emergency department. Patient was able to drink a can of Coke without difficulty. His symptoms have resolved. Patient will be given referral to GI for follow-up if symptoms should persist. I suspect he likely passed his esophageal impaction. Lab Data Attestation: I reviewed the patient's lab results. Labs: Laboratory Results - last 24 hr 05/22/21 05/22/21 18:49 18:49 WBC 7.7 RBC 4.78 Hgb 14.2 Hct 44.3 MCV 92.7 MCH 29.7 MCHC 32.1 RDW Std Deviation 45.9 H RDW Coeff of Flavio 13.5 Plt Count 237 MPV 10.3 Immature Gran % (Auto) 0.800 Neut % (Auto) 53.2 Lymph % (Auto) 32.2 [place] % (Auto) 9.6 Eos % (Auto) 3.6 Baso % (Auto) 0.6 Absolute Neuts (auto) 4.1 Absolute Lymphs (auto) 2.48 Nucleated RBC % 0 Sodium 139 Potassium 4.2 Chloride 101 Carbon Dioxide 29.0 Anion Gap 9 BUN 31 H Creatinine 1.28 Estim Creat Clear Calc 49.68 Est GFR (MDRD) Af Amer 69 Est GFR (MDRD) Non-Af 57 L BUN/Creatinine Ratio 24.2 H Glucose 175 H Calcium 9.9 Troponin I High Sens 20 Radiography Diagnostic Testing: Radiology Impression Chest X-Ray 05/22/21 20:00 IMPRESSION: No acute process identified. Electronically Signed: Tigre Charles MD at 20:26 EDT Tel , Service support , EKG Initial EKG: Attestation: I personally reviewed and interpreted this EKG as follows: Comments: Sinus rhythm with a ventricular rate of 68 bpm with first-degree AV block and prolonged QT. Discharge Plan Triage Chief Complaint: Foreign Body ED Provider: Sathya Gonzalez Dx/Rx/DC Orders Clinical Impression: Food impaction of esophagus Instructions: ED Esophageal Foreign Body, Resolved Prescriptions: No Action ergocalciferol (vitamin D2) 1,250 mcg (50,000 unit) capsule 50,000 unit PO QMONTH RF: 0 Fetzima 40 mg capsule,extended release 24 hr 40 mg PO DAILY Qty: 90 RF: 3 ferrous sulfate 325 mg (65 mg iron) tablet 325 mg PO Q OTHER DAY Qty: 90 RF: 3 pramipexole 1 mg tablet 2 mg PO QHS RF: 0 (DME) blood pressure monitor Kit See Rx Instructions .ROUTE .MEDSUPPLY Qty: 1 RF: 0 apremilast 30 MG tablet 30 mg PO BID RF: 0 acetaminophen [Tylenol] 325 mg Tablet 650 mg PO Q4H PRN PRN (Reason: Pain 1-10 Or Fever) Qty: 0 RF: 0 dulaglutide 3 mg/0.5 mL pen injector 1.5 mg SC UD RF: 0 finasteride 5 mg tablet 5 mg PO DAILY Qty: 90 RF: 3 simvastatin 20 mg tablet 20 mg PO QHS Qty: 90 RF: 3 (DME) blood sugar diagnostic Strip See Rx Instructions .ROUTE .MEDSUPPLY Qty: 100 RF: 0 metoprolol succinate 25 mg tablet extended release 24 hr 75 mg PO BID RF: 0 flecainide 100 mg tablet 100 mg PO Q12H Qty: 180 RF: 3 lisinopril 2.5 mg tablet 5 mg PO DAILY RF: 0 furosemide 20 mg tablet 20 mg PO BID Qty: 180 RF: 2 Primary Care Provider: Tosha Shrestha Referrals: Tosha Shrestha MD [Primary Care Provider] - Jesus Becerra DO [STAFF PHYSICIAN] - 5-7 Days Disposition Disposition: Home, Self Care
[2021-05-22 22:07] VITALS: BP 153/82; PULSE 78; RESP 16; O2SAT 96
== END 2021-05-22 22:08 | disposition home or self-care (01) ==
PROVIDERS: Emergency Provider Emergency Medicine; PCP Internal Medicine
DX: T18.128A Food in esophagus causing other injury, initial encounter (principal); I25.10 Atherosclerotic heart disease of native coronary artery without angina pectoris; E78.5 Hyperlipidemia, unspecified; I48.92 Unspecified atrial flutter; G47.33 Obstructive sleep apnea (adult) (pediatric); I11.0 Hypertensive heart disease with heart failure; I50.32 Chronic diastolic (congestive) heart failure; Z87.891 Personal history of nicotine dependence; Z87.442 Personal history of urinary calculi; Z79.899 Other long term (current) drug therapy; X58.XXXA Exposure to other specified factors, initial encounter
CPT/HCPCS: 71045; 80048; 84484; 85025; 93005; 99285; A4216

== ENCOUNTER → 2021-06-11 12:06 | Outpatient (CLI) | payer MEDICARE, BC, SELFPAY ==
[2021-02-07 10:47] VITALS: BMI 32.3
[2021-06-11 13:07] LABS: Albumin, Serum 3.1 g/dL (3.2-5.0); BUN 21 mg/dL (7-18); BUN/Creat Ratio 17.9 RATIO (10-20); Calcium,Total 9.3 mg/dL (8.5-10.1); Chloride 101 mmol/L (98-107); Creatinine, Serum 1.17 mg/dL (0.70-1.30); EST Glomerular Filtration Rate 63 mL/min (>60); Est Glom Filt Rate - Afr Amer 77 mL/min (>60); Glucose 215 mg/dL (74-106); Phosphorus 2.6 mg/dL (2.5-4.9); Potassium 4.1 mmol/L (3.5-5.1); Sodium Level 137 mmol/L (136-145)
== END ==
PROVIDERS: PCP Internal Medicine; Visit Provider Internal Medicine Nephrology
DX: N18.31 Chronic kidney disease, stage 3a (principal)
CPT/HCPCS: 36415; 80069

== ENCOUNTER 2021-07-03 11:22 | Day surgery (SDC) | payer MEDICARE, BC, SELFPAY ==
[2021-07-03 12:31] VITALS: BP 156/63; PULSE 61; RESP 16; TEMP 36.9; O2SAT 99; BMI 34.3
[2021-07-03] MEDS: Lactated Ringers 1,000 ML 15 ML IV (12:36)
--- NOTE | 2021-07-03 12:45 | EGD_PTH ---
PATIENT: MARY SAN LOC: EN U#:[id number] AGE/SX: 80/M ROOM: RE07/03/[address]: Dr. Jesus Becerra DO : 1940 BED: DIS: 07/03/2021 SPEC #: [id number] RECD: 07/04/21 13:00 STATUS: CRISTIAN JAROD #: [id number] REYNALDO: 07/03/21 12:[address]: Jesus Becerra DEPT: SURGICAL PATHOLOGY RECD BY: Sara Ray ENTERED: 07/04/21 13:01 SP TYPE: EGD BIOPSY NESTOR DR: Dr. Tosha Shrestha MD Tissues: A - Esophagus, NOS B - Duodenum, NOS Procedures: Special Stain Group II Surgery Specimen Level IV Alcian Blue/PAS (control) HEADER OPERATION: EGD ([facility]), esophageal dilatation PRE-OP DIAGNOSIS: Dysphagia TISSUE SUBMITTED: A ? Distal esophagus biopsy, B ? Duodenum biopsy MICROSCOPIC DIAGNOSIS A. Distal esophagus, biopsy: Fragments of gastroesophageal mucosa with moderate chronic inflammation. Intestinal metaplasia (goblet cell metaplasia) not identified. See comment. B. Duodenum, biopsy: Fragments of duodenal mucosa with mild nonspecific chronic inflammation. KENZIE:lisa 07/05/2021 COMMENT A. Alcian blue/PAS stain with matched control is used in the evaluation of the specimen. MICROSCOPIC DESCRIPTION Slides are reviewed. GROSS DESCRIPTION A - Received in fixative is one container labeled with the patient's name and designated distal esophagus. The specimen consists of multiple irregular fragments of light monson soft tissue that in aggregate measure 2 x 1 x 0.1 cm. The specimen is totally submitted in one cassette. B - Received in fixative is one container labeled with the patient's name and designated duodenum biopsy. The specimen consists of multiple irregular fragments of light monson soft tissue that in aggregate measure 1 x 1 x 0.1 cm. The specimen is totally submitted in one cassette. / AM:lisa 07/04/21 TC:3 CPT: 07132 x2, 28081
--- NOTE | 2021-07-03 13:08 | HP.PCM_ITS ---
History and Physical Date of Admission: 07/03/21 Medications finasteride 5 mg tablet 5 mg PO DAILY #90 tablet 11/03/18 [Rx Confirmed 05/19 03/07] simvastatin 20 mg tablet 20 mg PO QHS #90 tablet 05/10/20 [Rx Confirmed 06/13/21] apremilast 30 mg PO BID 11/22/20 [History Confirmed 06/13/21] acetaminophen [Tylenol] 650 mg PO Q4H PRN PRN #0 tab 12/15/20 [Rx Confirmed 06/13/21] blood sugar diagnostic #100 ea 01/04/21 [Rx Confirmed 06/13/21] metoprolol succinate 25 mg tablet,extended release 24 hr 75 mg PO BID tab 01/08/21 [History Confirmed 06/13/21] ergocalciferol (vitamin D2) 1,250 mcg (50,000 unit) capsule 50,000 unit PO QMONTH cap 01/24/21 [History Confirmed 06/13/21] ferrous sulfate 325 mg (65 mg iron) tablet 325 mg PO Q OTHER DAY #90 tab 02/07/21 [Rx Confirmed 06/13/21] levomilnacipran 40 mg capsule,24 hr,extended release 40 mg PO DAILY #90 cap 02/07/21 [Rx Confirmed 06/13/21] flecainide 100 mg tablet 100 mg PO Q12H #180 tablet 02/20/21 [Rx Confirmed 06/13/21] blood pressure monitor #1 ea 03/13/21 [Rx Confirmed 06/13/21] lisinopril 2.5 mg tablet 5 mg PO DAILY tab 03/13/21 [History Confirmed 06/13/21] dulaglutide 1.5 mg SC UD 04/23/21 [History Confirmed 06/13/21] furosemide 20 mg tablet 20 mg PO BID #180 tab 05/11/21 [Rx Confirmed 06/13/21] pramipexole 1 mg tablet 2 mg PO QHS tab 05/15/21 [History Confirmed 06/13/21] [facility] Medical History (Updated 06/13/21 @ 17:[address] Lee Friend, DO) (HFpEF) heart failure with preserved ejection fraction (12/12/20) Acute respiratory failure with hypoxia Anemia Anemia of chronic renal failure, stage 3 (moderate) Anxiety and depression Atherosclerotic heart disease of [place] coronary artery without angina pectoris Atrial flutter Back pain BMI 34.0-34.9,adult BPH (benign prostatic hyperplasia) BPPV (benign paroxysmal positional vertigo) Cardiac dysrhythmia De Quervain's tenosynovitis Dermatitis Diabetes mellitus Diabetic kidney disease Dizziness DM type 2 with diabetic peripheral neuropathy Dyslipidemia Dysphagia Essential (primary) hypertension Fall Fracture of great toe Health care maintenance History of renal calculi HLD (hyperlipidemia) Iron deficiency anemia Iron deficiency anemia due to chronic blood loss Kidney hematoma (12/08/20) Loss of equilibrium Malaise Near syncope Open wound of left lower extremity Orthostatic hypotension MACHELLE (obstructive sleep apnea) Paroxysmal atrial flutter Pneumonia Polypharmacy Renal calculi RLS (restless legs syndrome) SVT (supraventricular tachycardia) Urolithiasis Vertigo Surgical History History of cardioversion (2015) History of cataract surgery History of left heart catheterization (02/16/13) History of lithotripsy (11/2020) History of radiofrequency ablation procedure for cardiac arrhythmia (02/05/06) history of right knee cap fracture History of right knee surgery Status post laser lithotripsy of ureteral calculus Status post left foot surgery STENT PLACEMENT FOR KIDNEY STONE Family History Father Diabetes Hypertension Cancer Lung cancer Mother Hypertension CVA (cerebral vascular accident) Sister Diabetes Son Diabetes Social History Smoking Status: Former smoker how long ago did patient quit smokin second hand exposure: No alcohol intake: never substance use type: does not use caffeine: No what type of physical activity do you participate in: none seatbelt use: always do you feel safe at home: Yes HPI HPI Chief Complaint: venofer Details: MARY SAN, is a 80 M who presents to the office today for He had food lodged in his esophagus. Presented to [facility] ED who aided him in dislodging the food and referred to this office. He has not had this happen before. While he was eating dinner one evening he developed hiccups and then he started coughing and throwing up white sticky stuff. He had emesis in the emergency squad and ED. States that it still hurts every once in a while. He notes he isn't able to swallow pills like he used to be able to. History of bleeding ulcers in the . ROS Const Constitutional: Positive for fatigue, frequent falls and weight change ENT ENT: Positive for hearing loss and difficulty swallowing Gastro GI: Positive for abdominal pain, change in bowel habits, constipation, diarrhea, difficulty swallowing and nausea/dyspepsia Genitourinary Male: Positive for urinary frequency and urinary urgency Musc Musculoskeletal: Positive for stiffness, Arthritis, restless legs and leg pain at night Neuro Neurology: Positive for frequent falls and restless legs Endo Endocrine: Positive for cold intolerance, fatigue, increased thirst/drinking, increased hunger, increased urine leakage and weight change Forest/Lymp Hematologic/Lymphatic: Positive for easy bruising Exam Const General: cooperative and comfortable Nutritional Appearance: average body habitus and well nourished HENMT Head: normal to inspection Ears: hearing grossly normal bilaterally Nose: external nose normal Face and sinus: normal facial exam Mouth: oral mucosae normal Throat: posterior oropharynx normal Eyes General: appearance normal, both eyes and all related structures Neck Neck: normal visual inspection Chest Chest palpation & inspection: normal inspection of the chest and normal palpation of entire chest wall Resp Effort & Inspection: normal respiratory effort Auscultation: Bilateral: Clear to Auscultation Cardio Palpation: normal PMI Rate: regular rate Rhythm: regular rhythm GI Inspection: normal to inspection Auscultation: normal bowel sounds Percussion: normal to percussion Palpation: no hepatosplenomegaly Skin General: no rashes or lesions noted Neuro General: patient alert Extrem General: normal to inspection Psych Affect: normal affect Quality Reporting Tobacco Screening ([facility] 138) Smoking Status: Former smoker Assessment and Plan Assessment and Plan (1) Dysphagia: Status: Acute Orders: Orders: EGD Today Plan - Dr. Lee Friend, DO: Diagnosis for his esophageal dysphagia including esophageal ring, esophageal stricture, esophageal neoplasia. Also negative for diagnosis is a hiatal hernia. We will perform upper endoscopy evaluate his upper GI tract. He was explained alternatives, risk, benefits including understanding bleeding, infection, sepsis, perforation, need for emergent . Letter ASA of 3
[2021-07-03 13:40] VITALS: BP 156/66; BP 156/93; PULSE 64; RESP 16; TEMP 36.3; O2SAT 96
--- NOTE | 2021-07-03 13:41 | OP.CCLET_ITS ---
04/19/2022 Tosha Shrestha MD [address] [place] [address] [place] [address] Re : Upper GI endoscopy procedure for Jr Ji Dear Dr. Shrestha This procedure was performed on Saturday, July 03, 2021. My impressions and recommendations are as follows: Impressions : - LA Grade B reflux esophagitis. Rule out Rojas's esophagus. Biopsied. - Low-grade of narrowing Schatzki ring. Dilated. - Normal stomach. - Multiple non-bleeding duodenal ulcers with no stigmata of bleeding. Biopsied. Recommendations : - Discharge patient to home. - Resume previous diet. - Use Protonix (pantoprazole) 40 mg PO daily for 8 weeks. - Await pathology results. - Return to my office in 2 weeks. - Continue present medications. My findings are described in the full procedure note, which is enclosed. If I can be of further assistance, please feel free to contact me at . Sincerely, Jesus Friend, 07/03/2021 1:40:49 PM This report has been signed electronically.
--- NOTE | 2021-07-03 13:41 | OP.EGD_ITS ---
Patient Name: Jr Ji Procedure Date: 07/03/2021 1:08 PM Date of : 1940 Age: 80 Procedure: Upper GI endoscopy Indications: Dysphagia Providers: Jesus Becerra DO Medicines: See the Anesthesia note for documentation of the administered medications Patient Profile: This is an 80 year old male. Refer to note in patient chart for documentation of history and physical. Patient has symptoms of dysphagia with solids. The symptoms first began May. He is status post EGD for biopsy and EGD for dilation within the past five years. Complications: No immediate complications. Procedure: Pre-Anesthesia Assessment: - Prior to the procedure, a History and Physical was performed, and patient medications and allergies were reviewed. The patient is competent. The risks and benefits of the procedure and the sedation options and risks were discussed with the patient. All questions were answered and informed consent was obtained. Patient identification and proposed procedure were verified by the physician in the pre-procedure area. Mental Status Examination: alert and oriented. Airway Examination: normal oropharyngeal airway and neck mobility. Respiratory Examination: clear to auscultation. CV Examination: normal. Prophylactic Antibiotics: The patient does not require prophylactic antibiotics. Prior Anticoagulants: The patient has taken no previous anticoagulant or antiplatelet agents. After reviewing the risks and benefits, the patient was deemed in satisfactory condition to undergo the procedure. The anesthesia plan was to use moderate sedation / analgesia (conscious sedation). Immediately prior to administration of medications, the patient was re-assessed for adequacy to receive sedatives. The heart rate, respiratory rate, oxygen saturations, blood pressure, adequacy of pulmonary ventilation, and response to care were monitored throughout the procedure. The physical status of the patient was re-assessed after the procedure. After obtaining informed consent, the endoscope was passed under direct vision. Throughout the procedure, the patient's blood pressure, pulse, and oxygen saturations were monitored continuously. The Endoscope was introduced through the mouth, and advanced to the second part of duodenum. The upper GI endoscopy was accomplished without difficulty. The patient tolerated the procedure well. Moderate Sedation: Moderate (conscious) sedation was administered by the endoscopy nurse and supervised by the endoscopist. The patient's oxygen saturation, heart rate, blood pressure and response to care were monitored. Total physician intraservice time was 15 minutes. Scope In: 1:20:21 PM Scope Out: 1:31:16 PM Total Procedure Duration Time 0 hours 10 minutes 55 seconds Findings: LA Grade B (one or more mucosal breaks greater than 5 mm, not extending between the tops of two mucosal folds) esophagitis with no bleeding was found 34 to 35 cm from the incisors. Biopsies were taken with a cold forceps for histology. Verification of patient identification for the specimen was done. Estimated blood loss was minimal. A low-grade of narrowing Schatzki ring was found in the distal esophagus. A guidewire was placed and the scope was withdrawn. Dilation was performed with a Savary dilator with no resistance at 60 Fr. The dilation site was examined and showed moderate improvement in luminal narrowing. Estimated blood loss was minimal. The entire examined stomach was normal. Few non-bleeding linear duodenal ulcers with no stigmata of bleeding were found in the first portion of the duodenum. The largest lesion was 6 mm in largest dimension. Biopsies were taken with a cold forceps for histology. Verification of patient identification for the specimen was done. Estimated blood loss was minimal. Impression: - LA Grade B reflux esophagitis. Rule out Rojas's esophagus. Biopsied. - Low-grade of narrowing Schatzki ring. Dilated. - Normal stomach. - Multiple non-bleeding duodenal ulcers with no stigmata of bleeding. Biopsied. Recommendation: - Discharge patient to home. - Resume previous diet. - Use Protonix (pantoprazole) 40 mg PO daily for 8 weeks. - Await pathology results. - Return to my office in 2 weeks. - Continue present medications. Procedure Code(s): --- Professional --- 26348, Esophagogastroduodenoscopy, flexible, transoral; with insertion of guide wire followed by passage of dilator(s) through esophagus over guide wire 57465, 59, Esophagogastroduodenoscopy, flexible, transoral; with biopsy, single or multiple G0500, Moderate sedation services provided by the same physician or other qualified health career services representative performing a gastrointestinal endoscopic service that sedation supports, requiring the presence of an independent trained observer to assist in the monitoring of the patient's level of consciousness and physiological status; initial 15 minutes of intra-service time; patient age 5 years or older (additional time may be reported with 77763, as appropriate) Diagnosis Code(s): --- Professional --- K21.0, Gastro-esophageal reflux disease with esophagitis K22.2, Esophageal obstruction K26.9, Duodenal ulcer, unspecified as acute or chronic, without hemorrhage or perforation R13.10, Dysphagia, unspecified CPT copyright 2017 [employer]. All rights reserved. The codes documented in this report are preliminary and upon awnings mechanic review may be revised to meet current compliance requirements. Jesus Becerra DO 07/03/2021 1:40:49 PM This report has been signed electronically. Number of Addenda: 1 Note Initiated On: 07/03/2021 1:08 PM Addendum Number: 1 Addendum Date: 04/19/2022 6:23:43 AM MAC was used instead of moderate sedation for this patient. Jesus Becerra DO 04/19/2022 6:23:48 AM This report has been signed electronically.
[2021-07-03 13:45] VITALS: BP 155/66; BP 156/93; PULSE 63; RESP 16; O2SAT 95
[2021-07-03 13:50] VITALS: BP 135/63; BP 156/93; PULSE 64; RESP 16; O2SAT 98
[2021-07-03 13:55] VITALS: BP 148/65; BP 156/93; PULSE 65; RESP 16; TEMP 36.2; O2SAT 99
[2021-07-03 13:55] LABS: Bedside Glucose 136 mg/dL (70-110)
[2021-07-03 14:09] VITALS: BP 156/93
== END 2021-07-03 14:50 | disposition home or self-care (01) ==
LOC: EN 11:26 → AC 11:32
PROVIDERS: PCP Internal Medicine; Referring Provider Internal Medicine; Visit Provider Internal Medicine Gastroenterology
PROC: 0DJ08ZZ Inspection of Upper Intestinal Tract, Via Natural or Artificial Opening Endoscopic (ICD-10-PCS; CPT 43235; principal; 2021-07-03 12:40)
DX: K21.00 Gastro-esophageal reflux disease with esophagitis, without bleeding (principal); K26.7 Chronic duodenal ulcer without hemorrhage or perforation; K22.2 Esophageal obstruction; E78.5 Hyperlipidemia, unspecified; G47.33 Obstructive sleep apnea (adult) (pediatric); I25.10 Atherosclerotic heart disease of native coronary artery without angina pectoris; G25.81 Restless legs syndrome; I48.92 Unspecified atrial flutter; F32.A Depression, unspecified; F41.9 Anxiety disorder, unspecified; N40.0 Benign prostatic hyperplasia without lower urinary tract symptoms; L40.9 Psoriasis, unspecified; I13.0 Hypertensive heart and chronic kidney disease with heart failure and stage 1 through stage 4 chronic kidney disease, or unspecified chronic kidney disease; N18.30 Chronic kidney disease, stage 3 unspecified; I50.30 Unspecified diastolic (congestive) heart failure; Z87.891 Personal history of nicotine dependence; Z79.899 Other long term (current) drug therapy
CPT/HCPCS: 43239; 43248; 82962; 88305; 88313; J7120; C1769; J2405

== ENCOUNTER 2021-07-07 08:58 | Emergency (ER) | payer MEDICARE, BC, SELFPAY ==
[2021-07-07 08:59] VITALS: BP 182/70; PULSE 62; RESP 16; TEMP 36.8; O2SAT 99; BMI 33.9
--- NOTE | 2021-07-07 10:20 | RAD_ITS ---
STUDY: X-RAY CHEST REASON FOR EXAM: Male, 80 years old. Weakness TECHNIQUE: Frontal view COMPARISON: 05/22/2021 FINDINGS: The lungs are clear and expanded. There is no demonstrated pleural abnormality. Normal size heart. Normal mediastinum and lakhwinder. Normal visualized pulmonary arteries. Normal visualized aortic arch and descending thoracic aorta. Degenerative changes of the thoracic spine. Normal visualized ribs, clavicles, and shoulders. There is no demonstrated abnormality of the visualized soft tissue structures of the upper abdomen. RAD/Chest 1 View (Portable) IMPRESSION: Normal x-ray examination of the chest. Electronically Signed: Wallace Ortiz DO at 11:32 EST Tel [phone], Service support ,
--- NOTE | 2021-07-07 10:21 | EKG12_ITS ---
Test Reason : WEAKNESS Blood Pressure : / mmHG Vent. Rate : 059 BPM Atrial Rate : 059 BPM P-R Int : 240 ms QRS Dur : 104 ms QT Int : 484 ms P-R-T Axes : 002 059 074 degrees QTc Int : 479 ms Sinus bradycardia with 1st degree A-V block Nonspecific ST and T wave abnormality Abnormal ECG Confirmed by JORDIN DUNCAN, SYBIL ([id number]), sound editor NITZA ROJAS ([id number]) on 07/09/2021 1:22:07 PM Referred By: JALEN Confirmed By:SYBIL BRENNER MD
--- NOTE | 2021-07-07 10:31 | EDS_ITS ---
HPI History of Present Illness Chief Complaint: Weakness Informant: patient Onset/Context/Timing Onset: Yesterday Context: Gradual Onset Timing: Continuous Quality: Spinning Location: Head Worsened by: Standing, walking, laying down Relieved by: Nothing Associated Symptoms Associated Symptoms: Fatigue Narrative Narrative: Patient presents with generalized weakness and dizziness that began yesterday. Patient states that his dizziness feels like a spinning sensation. Patient states it is worse whenever he stands or walks. Patient states it also comes on whenever he lays down. Currently, patient denies any dizziness or spinning sensation. Patient admits to increasing fatigue. Patient admits to some subjective chills. Patient had a recent upper endoscopy. Patient states he called Dr. Becerra today who told him to come to the emergency department for further evaluation. Patient admits to some back pain and general myalgias. Patient also admits to a sore throat and right ear pain. [facility] Medical History (HFpEF) heart failure with preserved ejection fraction (12/12/20) Acute respiratory failure with hypoxia Anemia Anemia of chronic renal failure, stage 3 (moderate) Anxiety and depression Atherosclerotic heart disease of [place] coronary artery without angina pectoris Atrial flutter Back pain BMI 34.0-34.9,adult BPH (benign prostatic hyperplasia) BPPV (benign paroxysmal positional vertigo) Cardiac dysrhythmia Cardiology follow-up encounter De Quervain's tenosynovitis Depression Dermatitis Diabetes mellitus Diabetic kidney disease Dizziness DM type 2 with diabetic peripheral neuropathy DVT (deep venous thrombosis) Dyslipidemia Dysphagia Essential (primary) hypertension Fall Fracture of great toe Gastric reflux Health care maintenance History of echocardiogram History of edema History of GI bleed History of peptic ulcer History of renal calculi History of ulceration HLD (hyperlipidemia) Injury of head and neck Iron deficiency anemia Iron deficiency anemia due to chronic blood loss Kidney hematoma (12/08/20) Loss of equilibrium Low iron Malaise Near syncope Orthostatic hypotension MACHELLE (obstructive sleep apnea) Paroxysmal atrial flutter Pneumonia Polypharmacy Prostate disease Psoriasis Renal calculi RLS (restless legs syndrome) SVT (supraventricular tachycardia) Urolithiasis Vertigo Walker as ambulation aid Wears glasses Home Medications finasteride 5 mg tablet 5 mg PO DAILY #90 tablet 11/03/18 [Rx Last Taken Unknown] simvastatin 20 mg tablet 20 mg PO QHS #90 tablet 05/10/20 [Rx Last Taken Unknown] apremilast [Otezla] 30 mg PO BID 11/22/20 [History Last Taken Unknown] acetaminophen [Tylenol] 650 mg PO Q4H PRN PRN #0 tab 12/15/20 [Rx Last Taken Unknown] blood sugar diagnostic #100 ea 01/04/21 [Rx Last Taken Unknown] metoprolol succinate 25 mg tablet,extended release 24 hr 75 mg PO BID tab 01/08/21 [History Last Taken 07/03/21 08:00] flecainide 100 mg tablet 100 mg PO Q12H #180 tablet 02/20/21 [Rx Last Taken 07/03/21 08:00] blood pressure monitor #1 ea 03/13/21 [Rx Last Taken Unknown] lisinopril 2.5 mg tablet 5 mg PO DAILY tab 03/13/21 [History Last Taken 07/03/21 08:00] furosemide 20 mg tablet 20 mg PO BID #180 tab 05/11/21 [Rx Last Taken Unknown] pramipexole 1 mg tablet 2 mg PO QHS tab 05/15/21 [History Last Taken Unknown] docusate sodium [Stool Softener] 100 mg PO BID 07/02/21 [History Last Taken Unknown] ferrous sulfate 325 mg PO TUTH 07/02/21 [History Last Taken Unknown] levomilnacipran [Fetzima] 40 mg PO DAILY 07/02/21 [History Last Taken Unknown] pantoprazole 40 mg tablet,delayed release 40 mg PO DAILY #30 tab 07/03/21 [Rx Last Taken Unknown] dulaglutide 3 mg/0.5 mL subcutaneous pen injector 3 mg SC .COMPLEX #2 ml 07/04/21 [Rx Last Taken Unknown] ergocalciferol (vitamin D2) 1,250 mcg (50,000 unit) capsule 50,000 unit PO QMONTH #12 cap 07/04/21 [Rx Last Taken Unknown] meclizine 25 mg PO 4X/DAY PRN PRN #20 tab 07/07/21 [Rx Last Taken Unknown] Allergy/AdvReac Type Severity Reaction Status Date / Time hydrocodone bitartrate AdvReac Severe Other Verified 07/07/21 09:01 [From Vicodin] hydroxyzine AdvReac Severe Other Verified 07/07/21 09:01 Family History Father Diabetes Hypertension Cancer Lung cancer Mother Hypertension CVA (cerebral vascular accident) Sister Diabetes Son Diabetes Surgical History History of cardioversion (2015) History of cataract surgery History of left heart catheterization (02/16/13) History of lithotripsy (11/2020) History of radiofrequency ablation procedure for cardiac arrhythmia (02/05/06) history of right knee cap fracture History of right knee surgery Status post laser lithotripsy of ureteral calculus Status post left foot surgery STENT PLACEMENT FOR KIDNEY STONE Social History Smoking Status: Former smoker how long ago did patient quit smokin second hand exposure: No alcohol intake: never substance use type: does not use caffeine: No what type of physical activity do you participate in: none seatbelt use: always do you feel safe at home: Yes ROS ROS ED Constitutional Constitutional ED: Reports chills and subjective; Denies fever(s) Eyes Eyes: Denies blurry vision or change in vision ENT ENT ED: Reports ear pain right and sore throat; Denies rhinorrhea Cardiovascular Cardiovascular: Denies chest pain or palpitations Respiratory/Chest Respiratory/Chest: Denies cough or dyspnea Gastrointestinal Gastrointestinal: Denies nausea or vomiting Genitourinary Genitourinary ED: Denies dysuria or hematuria Musculoskeletal Musculoskeletal: Reports back pain and myalgias; Denies neck pain Integumentary Denies abscess or rash Neurologic Neurologic: Reports weakness; Denies headache(s) Allergic/Immunologic Allergic/Immunologic ED: Denies mouth swelling or urticaria EXAM Physical Exam Const Vital Signs: 07/07/21 08:59 07/07/21 10:45 07/07/21 12:00 Temperature 98.3 F Temperature Source Temporal Pulse Rate 62 60 Respiratory Rate 16 22 H Respiratory Effort Normal Non-Labored Respiratory Pattern Normal Blood Pressure 182/70 H Blood Pressure Mean 107 Pulse Ox 99 100 Oxygen Delivery Method Room Air Room Air Positive well nourished and well developed General Appearance ED: well developed HEENT Reports moist mucous membranes Neck supple and no JVD Resp normal respiratory effort and clear to auscultation bilaterally Cardio regular rate, regular rhythm and no murmurs GI normal to inspection, nondistended, normoactive bowel sounds and non-tender Palpation: soft Extremity normal to inspection General Extremety ED: Negative for edema or tenderness General Extremity: Negative for edema Neuro oriented x3, CN's II-XII intact bilaterally and no sensory deficits noted Sensorium / Orientation: alert Motor Exam: strength 5/5 throughout Psych mental status grossly normal Skin no rashes or lesions noted MDM MDM MDM Narrative Medical decision making narrative: EKG was obtained. On my interpretation, it showed a normal sinus rhythm with first-degree AV block with a rate of 59. HI interval, QRS interval, and QTc intervals were all normal. [place] was normal. There are no acute ST or T wave changes. CBC was within normal limits. Comprehensive metabolic profile was obtained and was essentially within normal limits. Urinalysis does not show any evidence of urinary tract infection. Portable 1 view chest x-ray was obtained. On my interpretation, lung shah are clear. There is normal cardiac silhouette. Bony thorax is normal. There is no acute process noted. Radiologist also interpreted the x-ray and agrees. Patient had 2 episodes of vertigo that resolved spontaneously after a few minutes. Patient was advised of his findings. Case was discussed with Dr. Becerra. He had no further recommendations. Patient was given a prescription for meclizine to take as needed for vertigo. Patient was instructed to follow- up with his primary care physician in 5 to 7 days. Patient understood and was agreeable with the plan. All questions were answered. Lab Data Attestation: I reviewed the patient's lab results. Labs: Laboratory Results - last 24 hr 07/07/21 07/07/21 07/07/21 10:30 10:30 12:30 WBC 6.2 RBC 4.00 L Hgb 12.1 L Hct 37.2 L MCV 93.0 MCH 30.3 MCHC 32.5 RDW Std Deviation 43.4 RDW Coeff of Flavio 12.7 Plt Count 168 MPV 9.5 Immature Gran % (Auto) 0.600 Neut % (Auto) 65.4 Lymph % (Auto) 23.2 [place] % (Auto) 8.1 Eos % (Auto) 2.1 Baso % (Auto) 0.6 Absolute Neuts (auto) 4.0 Absolute Lymphs (auto) 1.43 Nucleated RBC % 0 Sodium 138 Potassium 4.4 Chloride 105 Carbon Dioxide 28.0 Anion Gap 5 BUN 20 H Creatinine 1.24 Estim Creat Clear Calc 51.28 Est GFR (MDRD) Af Amer 72 Est GFR (MDRD) Non-Af 59 L BUN/Creatinine Ratio 16.1 Glucose 185 H Calcium 8.6 Total Bilirubin 0.40 AST 22 ALT 27 Alkaline Phosphatase 68 Troponin I High Sens 24 Total Protein 6.6 Albumin 2.8 L Globulin 3.8 Albumin/Globulin Ratio 0.7 L Lipase 132 Urine Color Yellow Urine Clarity Clear Urine pH 6.0 Ur Specific [place] 1.010 Urine Protein 100 H Urine Glucose (UA) Normal Urine Ketones Negative Urine Occult Blood Negative Urine Nitrite Negative Urine Bilirubin Negative Urine Urobilinogen Normal Ur Leukocyte Esterase Negative Urine RBC 0 SEEN Urine WBC 0 SEEN Ur Squamous Epith Cells 0 SEEN Urine Bacteria 0 SEEN Urine Mucus 0 SEEN Radiography Chest X-Ray - ED: 1 View, Read by ED Physician, Read by Radiologist and Normal Diagnostic Testing: Clinical Impression(s) from Imaging Studies Chest X-Ray 07/07/21 10:20 IMPRESSION: Normal x-ray examination of the chest. Electronically Signed: Wallace Ortiz DO at 11:32 EST Tel [phone], Service support , EKG Initial EKG: Attestation: I personally reviewed and interpreted this EKG as follows: Interpretation: Sinus Rhythm (59) and No Acute Injury Pattern Prior EKG tracings: available for review Prior: Unchanged (05/22/2021) Discharge Plan Triage Chief Complaint: Weakness ED Provider: Jonathan Farrell Dx/Rx/DC Orders Clinical Impression: Dizziness Instructions: ED Vertigo, Unspecified Prescriptions: New meclizine [meclizine] 25 MG tablet 25 mg PO 4X/DAY PRN PRN (Reason: Dizziness) Qty: 20 RF: 0 No Action pramipexole [Mirapex] 1 mg tablet 2 mg PO QHS RF: 0 (DME) blood pressure monitor Kit See Rx Instructions .ROUTE .MEDSUPPLY Qty: 1 RF: 0 Otezla 30 MG tablet 30 mg PO BID RF: 0 acetaminophen [Tylenol] 325 mg Tablet 650 mg PO Q4H PRN PRN (Reason: Pain 1-10 Or Fever) Qty: 0 RF: 0 docusate sodium [Stool Softener] 100 mg Capsule 100 mg PO BID RF: 0 ferrous sulfate 325 mg (65 mg iron) tablet 325 mg PO TUTH RF: 0 Fetzima 40 mg capsule,extended release 24 hr 40 mg PO DAILY RF: 0 finasteride 5 mg tablet 5 mg PO DAILY Qty: 90 RF: 3 simvastatin 20 mg tablet 20 mg PO QHS Qty: 90 RF: 3 (DME) blood sugar diagnostic Strip See Rx Instructions .ROUTE .MEDSUPPLY Qty: 100 RF: 0 metoprolol succinate 25 mg tablet extended release 24 hr 75 mg PO BID RF: 0 flecainide 100 mg tablet 100 mg PO Q12H Qty: 180 RF: 3 lisinopril 2.5 mg tablet 5 mg PO DAILY RF: 0 furosemide 20 mg tablet 20 mg PO BID Qty: 180 RF: 2 pantoprazole 40 mg tablet,delayed release (DR/EC) 40 mg PO DAILY Qty: 30 RF: 3 Trulicity 3 mg/0.5 mL pen injector 3 mg SC .COMPLEX Qty: 2 RF: 2 ergocalciferol (vitamin D2) 1,250 mcg (50,000 unit) capsule 50,000 unit PO QMONTH Qty: 12 RF: 0 Primary Care Provider: Tosha Shrestha Referrals: Tosha Shrestha MD [Primary Care Provider] - 3-5 Days Disposition Disposition: Home, Self Care
[2021-07-07 10:35] LABS: Absolute Lymphocyte Count 1.43 X10^3/uL (0.83-4.51); Basophil# 0.04 X10^3/uL; Basophil% 0.6 % (0-1); Eosinophil# 0.13 X10^3/uL; Eosinophils% 2.1 % (0-5); Hematocrit 37.2 % (40-54); Hemoglobin 12.1 g/dL (13.0-16.5); Lymphocyte # 1.43 X10^3/ul (0.83-4.51); Lymphocyte % 23.2 % (19-41); Mean Corp Hgb Conc 32.5 g/dL (32-36); Mean Corpuscular Hgb 30.3 pg (27.0-32.0); Mean Platelet Vol. 9.5 fl (6.2-12.0); Monocyte% 8.1 % (0-10); NRBC Flagged by Analyzer 0 % (0-5); Neutrophil # 4.03 X10^3/uL (2.7-7.7); Neutrophil % 65.4 % (47-70); Platelet Count 168 K/mm3 (150-450); RBC Distribution Width CV 12.7 % (11.6-14.6); RBC Distribution Width SD 43.4 fl (35.1-43.9); White Blood Count 6.2 K/mm3 (4.4-11.0)
[2021-07-07 10:56] LABS: ALB/GLOB Ratio 0.7 RATIO (0.9-2.4); AST(SGOT) 22 U/L (15-37); Alanine Aminotransfer ALT/SGPT 27 U/L (16-61); Albumin, Serum 2.8 g/dL (3.2-5.0); Alkaline Phosphatase 68 U/L (45-117); Anion Gap 5 (5-15); BUN 20 mg/dL (7-18); BUN/Creat Ratio 16.1 RATIO (10-20); Calcium,Total 8.6 mg/dL (8.5-10.1); Chloride 105 mmol/L (98-107); Creatinine, Serum 1.24 mg/dL (0.70-1.30); EST Glomerular Filtration Rate 59 mL/min (>60); Est Glom Filt Rate - Afr Amer 72 mL/min (>60); Estimated Creatinine Clearance 51.28 ml/min; Globulin 3.8 g/dL (2.2-4.2); Glucose 185 mg/dL (74-106); Lipase 132 U/L (73-393); Potassium 4.4 mmol/L (3.5-5.1); Protein, Total 6.6 g/dL (6.4-8.2); Sodium Level 138 mmol/L (136-145); Troponin-I HS 24 pg/mL (3.0-78.0)
[2021-07-07 12:00] VITALS: PULSE 60; RESP 22; O2SAT 100
[2021-07-07 12:45] LABS: Bacteria 0 SEEN /hpf (None Seen); Mucous, Urine 0 SEEN /hpf (<or=2+); Red Blood Cells-Urine 0 SEEN /hpf (0-5); Squamous Epithelial Cells - UA 0 SEEN /hpf (0-5); White Blood Cells 0 SEEN /hpf (0-5)
[2021-07-07 12:47] LABS: Color, Urine Yellow (Yellow); Glucose, Dipstick Normal (Normal); Ketone-Dipstick Negative (Negative); Leukocyte Esterase-Dipstick Negative /ul (Negative); Nitrite-Dipstick Negative (Negative); Occult Blood-Urine Negative /ul (Negative); Protein-Dipstick 100 mg/dl (Negative); Urine Bilirubin Dipstick Negative (Negative); Urine Clarity Clear (Clear); Urine Urobilinogen Normal (Normal)
[2021-07-07 13:45] VITALS: BP 187/75; PULSE 61; RESP 18; O2SAT 100
== END 2021-07-07 13:47 | disposition home or self-care (01) ==
PROVIDERS: Emergency Provider Emergency Medicine; PCP Internal Medicine
DX: R42 Dizziness and giddiness (principal); R53.1 Weakness; I25.10 Atherosclerotic heart disease of native coronary artery without angina pectoris; G47.33 Obstructive sleep apnea (adult) (pediatric); Z87.891 Personal history of nicotine dependence; Z87.442 Personal history of urinary calculi; Z87.11 Personal history of peptic ulcer disease
CPT/HCPCS: 71045; 80053; 81001; 83690; 84484; 85025; 93005; 99284; A4216

== ENCOUNTER 2021-08-05 11:05 | Inpatient (IN) | payer MEDICARE, BC, SELFPAY ==
[2021-08-05] VITALS (12 sets, daily range): BP systolic 134–195; BP diastolic 71–77; PULSE 63–71; RESP 16–18; TEMP 36.7–36.8; O2SAT 97–100; BMI 33.9; BMI 34.1
--- NOTE | 2021-08-05 11:20 | EKG12_ITS ---
Test Reason : HYPERTENSION Blood Pressure : / mmHG Vent. Rate : 066 BPM Atrial Rate : 066 BPM P-R Int : 232 ms QRS Dur : 110 ms QT Int : 498 ms P-R-T Axes : -01 062 071 degrees QTc Int : 522 ms Sinus rhythm with 1st degree A-V block Nonspecific ST and T wave abnormality Prolonged QT Abnormal ECG Confirmed by RIVKA DUNCAN, RAHUL ([id number]), newspaper photo editor NITZA ROJAS ([id number]) on 08/06/2021 9:45:28 AM Referred By: GIOVANA Confirmed By:RAHUL TINEO MD
--- NOTE | 2021-08-05 11:20 | CT_ITS ---
STUDY: CT BRAIN WITHOUT CONTRAST REASON FOR EXAM: Male, 81 years old. htn, dizziness RADIATION DOSAGE (If Supplied By Facility): CTDIvol = ( 44.99 ) mGy, DLP = ( 812.98 ) mGycm TECHNIQUE: Transaxial CT imaging of the brain was performed without administration of intravenous contrast material. Individualized dose optimization techniques were used for this CT. COMPARISON: 12/12/2020 FINDINGS: Normal soft tissue structures. Normal calvarium. Normal size ventricles and extra-axial spaces for the patient''s age. Normal white matter tracts of the cerebral hemispheres. Normal basal ganglia and thalami. Normal brainstem. Normal cerebellum. There is no intracranial hemorrhage. There are no findings of an acute ischemic infarction. Normal visualized paranasal sinuses. CT/Brain/Head without Contrast IMPRESSION: Normal unenhanced CT scan of the brain. Electronically Signed: Vin Gibbs MD at 12:50 EST Tel , Service support ,
--- NOTE | 2021-08-05 11:22 | EDS_ITS ---
HPI History of Present Illness Chief Complaint: Hypertension Detail of Chief Complaint: Hypertension and dizziness Informant: patient Narrative Narrative: Patient presents to the emergency department chief complaint of dizziness that has worsened over the last week. Patient was seen by air operations manager and primary care physician 2 days ago. Patient had a new blood pressure medicine started. Patient continues to complain of feeling dizzy and feels like he is in a pass out at times. Dizziness worse with standing and head position. He does have history of vertigo. He denies any chest pain or shortness of breath. He denies abdominal pain. He denies falls or head injuries. He has had intermittent headaches. Prior similar symptoms: Yes PFSH [facility] Medical History (Updated 08/05/21 @ 13:[address] Sathya Gonzalez, ) (HFpEF) heart failure with preserved ejection fraction (12/12/20) Acute respiratory failure with hypoxia Anemia Anemia of chronic renal failure, stage 3 (moderate) Anxiety and depression Atherosclerotic heart disease of [place] coronary artery without angina pectoris Atrial flutter Back pain BMI 34.0-34.9,adult BPH (benign prostatic hyperplasia) BPPV (benign paroxysmal positional vertigo) Cardiac dysrhythmia Cardiology follow-up encounter De Quervain's tenosynovitis Depression Dermatitis Diabetes mellitus Diabetic kidney disease Dizziness DM type 2 with diabetic peripheral neuropathy DVT (deep venous thrombosis) Dyslipidemia Dysphagia Essential (primary) hypertension Fall Fracture of great toe Gastric reflux Health care maintenance History of echocardiogram History of edema History of GI bleed History of peptic ulcer History of renal calculi History of ulceration HLD (hyperlipidemia) Injury of head and neck Iron deficiency anemia Iron deficiency anemia due to chronic blood loss Kidney hematoma (12/08/20) Loss of equilibrium Low iron Malaise Near syncope Orthostatic hypotension MACHELLE (obstructive sleep apnea) Paroxysmal atrial flutter Pneumonia Polypharmacy Prostate disease Psoriasis Renal calculi RLS (restless legs syndrome) SVT (supraventricular tachycardia) Urolithiasis Vertigo Walker as ambulation aid Wears glasses Home Medications finasteride 5 mg tablet 5 mg PO DAILY #90 tablet 11/03/18 [Rx Last Taken Unknown] simvastatin 20 mg tablet 20 mg PO QHS #90 tablet 05/10/20 [Rx Last Taken Unknown] apremilast [Otezla] 30 mg PO BID 11/22/20 [History Last Taken Unknown] acetaminophen [Tylenol] 650 mg PO Q4H PRN PRN #0 tab 04/30/21 [Rx Last Taken Unknown] blood sugar diagnostic #100 ea 01/04/21 [Rx Last Taken Unknown] metoprolol succinate 25 mg tablet,extended release 24 hr 75 mg PO BID tab 01/08/21 [History Last Taken 07/03/21 08:00] flecainide 100 mg tablet 100 mg PO Q12H #180 tablet 02/20/21 [Rx Last Taken 07/03/21 08:00] blood pressure monitor #1 ea 03/13/21 [Rx Last Taken Unknown] furosemide 20 mg tablet 20 mg PO BID #180 tab 05/11/21 [Rx Last Taken Unknown] pramipexole 1 mg tablet 2 mg PO QHS tab 05/15/21 [History Last Taken Unknown] docusate sodium [Stool Softener] 100 mg PO BID 07/02/21 [History Last Taken Unknown] ferrous sulfate 325 mg PO TUTH 07/02/21 [History Last Taken Unknown] levomilnacipran [Fetzima] 40 mg PO DAILY 07/02/21 [History Last Taken Unknown] pantoprazole 40 mg tablet,delayed release 40 mg PO DAILY #30 tab 07/03/21 [Rx Last Taken Unknown] ergocalciferol (vitamin D2) 1,250 mcg (50,000 unit) capsule 50,000 unit PO QMONTH #12 cap 07/04/21 [Rx Last Taken Unknown] meclizine 25 mg tablet 25 mg PO 4X/DAY PRN PRN #120 tab 07/17/21 [Rx Last Taken Unknown] dulaglutide 4.5 mg/0.5 mL subcutaneous pen injector 4.5 mg SC .COMPLEX 90 Days #2 ml 07/20/21 [Rx Last Taken Unknown] olmesartan 20 mg tablet 20 mg PO DAILY #30 tab 08/03/21 [Rx Last Taken Unknown] Allergy/AdvReac Type Severity Reaction Status Date / Time hydrocodone bitartrate AdvReac Severe Other Verified 08/05/21 11:07 [From Vicodin] hydroxyzine AdvReac Severe Other Verified 08/05/21 11:07 Family History Father Diabetes Hypertension Cancer Lung cancer Mother Hypertension CVA (cerebral vascular accident) Sister Diabetes Son Diabetes Surgical History History of cardioversion (2015) History of cataract surgery History of left heart catheterization (02/16/13) History of lithotripsy (11/2020) History of radiofrequency ablation procedure for cardiac arrhythmia (02/05/06) history of right knee cap fracture History of right knee surgery Status post laser lithotripsy of ureteral calculus Status post left foot surgery STENT PLACEMENT FOR KIDNEY STONE Social History Smoking Status: Former smoker how long ago did patient quit smokin second hand exposure: No alcohol intake: never substance use type: does not use caffeine: No what type of physical activity do you participate in: none seatbelt use: always do you feel safe at home: Yes ROS ROS ED Constitutional Constitutional ED: Reports systems reviewed and no addt'l complaints, except as documented; Denies body ache(s), change in weight or chills Eyes Eyes: Denies acute decrease in peripheral vision, change in vision, double vision or loss of vision ENT ENT ED: Reports none; Denies ear pain, lip swelling, loss taste/smell, neck pain, otalgia or sore throat Cardiovascular Cardiovascular: Reports none and lightheadedness; Denies abdominal pain, chest pain with activity, leg edema, palpitations, rapid heart rate or syncope Respiratory/Chest Respiratory/Chest: Reports none; Denies change in mental status, dry cough, dyspnea, hemoptysis, shortness of breath at rest or shortness of breath with exertion Gastrointestinal Gastrointestinal: Reports none; Denies abdominal pain, change in stool character, diarrhea, hematemesis, hematochezia, melena, rectal bleeding or vomiting Genitourinary Genitourinary ED: Reports none; Denies abdominal discomfort, anuria, dysuria, genital pain or polyuria Musculoskeletal Musculoskeletal: Reports none; Denies arthralgias, back pain, difficulty walking, extremity pain, muscle weakness or myalgias Integumentary Reports none; Denies abscess or rash Neurologic Neurologic: Reports none, disequilibrium and dizziness; Denies abnormal gait, confusion, focal weakness, frequent falls, headache(s), loss of vision, numbness, paresthesias, radicular pain, vertigo or weakness Psychiatric Psychiatric: Reports systems reviewed and no addt'l complaints, except as documented and none; Denies behavioral changes, confusion, difficulty concentrating, hallucinations, suicidal ideation, tactile hallucinations or visual hallucinations Endocrine Endocrinology: Denies none, cold intolerance, excessive sweating, fatigue or heat intolerance Hematologic/Lymphatic Hematologic/Lymphatic: Reports none; Denies anemia, easy bleeding or easy bruising Allergic/Immunologic Allergic/Immunologic ED: Denies as per HPI, none, lip swelling, mouth swelling, throat swelling, tongue swelling or hives EXAM Physical Exam Const Vital Signs: 08/05/21 11:07 08/05/21 11:42 Temperature 98.2 F Temperature Source Temporal Pulse Rate 70 Respiratory Rate 16 Respiratory Effort Normal Non-Labored Respiratory Pattern Normal Blood Pressure 195/72 H Blood Pressure Mean 113 Pulse Ox 97 Oxygen Delivery Method Room Air Positive well nourished and well developed General Appearance ED: well developed and NAD HEENT Reports TM's clear and moist mucous membranes normocephalic and atraumatic; Negative for trauma or tenderness Tympanic Membrane ED: Yes TM's clear Eyes PERRL and EOMs intact bilaterally General Eye ED: Negative for pale conjunctiva or scleral icterus Neck no lymphadenopathy, supple and no JVD General: Negative for tenderness Chest Wall inspection of chest normal and palpation of chest normal Chest: Negative for tenderness Resp normal respiratory effort and clear to auscultation bilaterally Effort and Inspection: Negative for respiratory distress or pain with movement Auscultation: Negative for rhonchi, wheezes or diminished lung sounds Cardio regular rate, regular rhythm, S1 normal heart sound, S2 normal heart sound and no murmurs Peripheral Pulses: pulses 2+ throughout GI normal to inspection, nondistended, normoactive bowel sounds, soft to palpation, non-tender, non-distended and no masses Back/Spine no CVA tenderness and no thoracic nor lumbar tenderness Extremity normal to inspection General Extremety ED: Negative for edema General Extremity: Negative for edema Neuro oriented x3, CN's II-XII intact bilaterally, no sensory deficits noted and gait normal Neuro Narrative: Hallpike maneuver performed. Patient was dizzy when laying fla t with head turned to the right but I did not appreciate any nystagmus. Finger- nose and heel silverio testing within normal limits, negative Romberg, negative pronator drift. Sensorium / Orientation: awake, alert, oriented to person, oriented to place and oriented to time Motor Exam: strength 5/5 throughout and strength abnormal Psych mental status grossly normal Skin no rashes or lesions noted and no wounds MDM MDM MDM Narrative Medical decision making narrative: Lab work-up unremarkable. On arrival patient placed on a classroom monitor. Patient was given Valium 4 mg p.o. and he did have some improvement of his dizziness. Patient however with standing still feels quite off balance. Patient is concerned about going home and his ability to ambulate and care for self. At this point I suspect benign positional vertigo given that his symptoms exacerbated by head position however I was unable to reproduce any nystagmus with Hallpike maneuver. Patient will be discussed with hospitalist evaluate for admission to evaluate further and potentially rule out posterior circulation stroke. Patient was given labetalol 20 mg IV. Lab Data Attestation: I reviewed the patient's lab results. Labs: Laboratory Results - last 24 hr 08/05/21 08/05/21 11:40 11:40 WBC 6.3 RBC 3.97 L Hgb 12.2 L Hct 36.1 L MCV 90.9 MCH 30.7 MCHC 33.8 RDW Std Deviation 41.7 RDW Coeff of Flavio 12.6 Plt Count 177 MPV 8.9 Immature Gran % (Auto) 0.300 Neut % (Auto) 65.5 Lymph % (Auto) 20.9 [place] % (Auto) 6.7 Eos % (Auto) 5.6 H Baso % (Auto) 1.0 Absolute Neuts (auto) 4.1 Absolute Lymphs (auto) 1.31 Nucleated RBC % 0 Sodium 138 Potassium 3.7 Chloride 104 Carbon Dioxide 28.0 Anion Gap 6 BUN 18 Creatinine 1.25 Estim Creat Clear Calc 50.01 Est GFR (MDRD) Af Amer 71 Est GFR (MDRD) Non-Af 59 L BUN/Creatinine Ratio 14.4 Glucose 300 H Calcium 8.9 Troponin I High Sens 22 Radiography Diagnostic Testing: Clinical Impression(s) from Imaging Studies Brain CT 08/05/21 11:20 IMPRESSION: Normal unenhanced CT scan of the brain. Electronically Signed: Vin Gibbs MD at 12:50 EST Tel , Service support , EKG Initial EKG: Attestation: I personally reviewed and interpreted this EKG as follows: Comments: Sinus rhythm with a ventricular rate of [address] changes Discharge Plan Triage Chief Complaint: Hypertension ED Provider: Sathya Gonzalez Dx/Rx/DC Orders Clinical Impression: Dizziness, Hypertension, Vertigo Prescriptions: No Action pramipexole [Mirapex] 1 mg tablet 2 mg PO QHS RF: 0 (DME) blood pressure monitor Kit See Rx Instructions .ROUTE .MEDSUPPLY Qty: 1 RF: 0 meclizine 25 mg tablet 25 mg PO 4X/DAY PRN PRN (Reason: Dizziness) Qty: 120 RF: 0 olmesartan 20 mg tablet 20 mg PO DAILY Qty: 30 RF: 1 Otezla 30 MG tablet 30 mg PO BID RF: 0 acetaminophen [Tylenol] 325 mg Tablet 650 mg PO Q4H PRN PRN (Reason: Pain 1-10 Or Fever) Qty: 0 RF: 0 docusate sodium [Stool Softener] 100 mg Capsule 100 mg PO BID RF: 0 ferrous sulfate 325 mg (65 mg iron) tablet 325 mg PO TUTH RF: 0 Fetzima 40 mg capsule,extended release 24 hr 40 mg PO DAILY RF: 0 finasteride 5 mg tablet 5 mg PO DAILY Qty: 90 RF: 3 simvastatin 20 mg tablet 20 mg PO QHS Qty: 90 RF: 3 (DME) blood sugar diagnostic Strip See Rx Instructions .ROUTE .MEDSUPPLY Qty: 100 RF: 0 metoprolol succinate 25 mg tablet extended release 24 hr 75 mg PO BID RF: 0 flecainide 100 mg tablet 100 mg PO Q12H Qty: 180 RF: 3 furosemide 20 mg tablet 20 mg PO BID Qty: 180 RF: 2 pantoprazole 40 mg tablet,delayed release (DR/EC) 40 mg PO DAILY Qty: 30 RF: 3 ergocalciferol (vitamin D2) 1,250 mcg (50,000 unit) capsule 50,000 unit PO QMONTH Qty: 12 RF: 0 Trulicity 4.5 mg/0.5 mL pen injector 4.5 mg SC .COMPLEX 90 Days Qty: 2 RF: 2 Primary Care Provider: Tosha Shrestha Referrals: Tosha Shrestha MD [Primary Care Provider] - Disposition Disposition: Acute Care Hospital [facility]
[2021-08-05] MEDS: 0.9% Normal Saline 1,000 ML 150 ML IV (11:47)
[2021-08-05] MEDS: diazePAM 2 MG Tablet 4 MG PO (11:47)
[2021-08-05 11:49] LABS: Absolute Lymphocyte Count 1.31 X10^3/uL (0.83-4.51); Absolute Neutrophil Count 4.1 X10^3/uL (2.0-7.7); Basophil# 0.06 X10^3/uL; Eosinophil# 0.35 X10^3/uL; Eosinophils% 5.6 % (0-5); Hematocrit 36.1 % (40-54); Hemoglobin 12.2 g/dL (13.0-16.5); Lymphocyte # 1.31 X10^3/ul (0.83-4.51); Lymphocyte % 20.9 % (19-41); Mean Corp Hgb Conc 33.8 g/dL (32-36); Mean Corpuscular Hgb 30.7 pg (27.0-32.0); Mean Corpuscular Volume 90.9 fL (80-94); Mean Platelet Vol. 8.9 fl (6.2-12.0); Monocyte# 0.42 X10^3/uL; Monocyte% 6.7 % (0-10); NRBC Flagged by Analyzer 0 % (0-5); Neutrophil # 4.11 X10^3/uL (2.7-7.7); Neutrophil % 65.5 % (47-70); Platelet Count 177 K/mm3 (150-450); RBC Distribution Width CV 12.6 % (11.6-14.6); RBC Distribution Width SD 41.7 fl (35.1-43.9); Red Blood Count 3.97 M/mm3 (4.6-6.2); White Blood Count 6.3 K/mm3 (4.4-11.0)
[2021-08-05 12:07] LABS: Anion Gap 6 (5-15); BUN 18 mg/dL (7-18); BUN/Creat Ratio 14.4 RATIO (10-20); Calcium,Total 8.9 mg/dL (8.5-10.1); Chloride 104 mmol/L (98-107); Creatinine, Serum 1.25 mg/dL (0.70-1.30); EST Glomerular Filtration Rate 59 mL/min (>60); Est Glom Filt Rate - Afr Amer 71 mL/min (>60); Estimated Creatinine Clearance 50.01 ml/min; Glucose 300 mg/dL (74-106); Potassium 3.7 mmol/L (3.5-5.1); Sodium Level 138 mmol/L (136-145); Troponin-I HS 22 pg/mL (3.0-78.0)
[2021-08-05] MEDS: Labetalol (Prefilled) 20 MG/4 ML IV ×2 (13:25→17:43)
--- NOTE | 2021-08-05 13:55 | HP.PCM.HOS_ITS ---
HPI - General General Date of Admission: 08/05/21 HPI Narrative MARY SAN, is a 81 M with multiple comorbidities as listed below came to ER with dizziness and vertigo along with high blood pressure. Patient states his dizziness is chronic for about 1 year but got worse for last 1 week so there is hard for him to balance on walking, lightheadedness sometimes causes foggy brain and unawareness what he is doing. He lost his balance yesterday in the bathroom but did not fall. No major injury. He also complains of vertigo, room spinning since yesterday evening but denies nausea, vomiting or headache. No focal weakness, aphasia, dysarthria, dysphagia or other symptoms. No chest pain or shortness of breath. In ED, his BP was high 198/82, patient also got IV fluid normal seen 150/h total of 1 L. No significant orthostatic change. He got labetalol 20 mg IV in ER and blood pressure came down to 145 systolic. Twelve-lead EKG shows normal sinus rhythm 66 bpm, first-degree block, nonspecific spicula, QTC 522 ms. QRS 110 ms. As compared to previous EKG , sinus bradycardia 59 bpm, first-degree AVB, QTC 479 ms, QRS 104 ms. [facility] Medical History (HFpEF) heart failure with preserved ejection fraction (12/12/20) Acute respiratory failure with hypoxia Anemia Anemia of chronic renal failure, stage 3 (moderate) Anxiety and depression Atherosclerotic heart disease of [place] coronary artery without angina pectoris Atrial flutter Back pain BMI 34.0-34.9,adult BPH (benign prostatic hyperplasia) BPPV (benign paroxysmal positional vertigo) Cardiac dysrhythmia Cardiology follow-up encounter De Quervain's tenosynovitis Depression Dermatitis Diabetes mellitus Diabetic kidney disease Dizziness DM type 2 with diabetic peripheral neuropathy DVT (deep venous thrombosis) Dyslipidemia Dysphagia Essential (primary) hypertension Fall Fracture of great toe Gastric reflux Health care maintenance History of echocardiogram History of edema History of GI bleed History of peptic ulcer History of renal calculi History of ulceration HLD (hyperlipidemia) Injury of head and neck Iron deficiency anemia Iron deficiency anemia due to chronic blood loss Kidney hematoma (12/08/20) Loss of equilibrium Low iron Malaise Near syncope Orthostatic hypotension MACHELLE (obstructive sleep apnea) Paroxysmal atrial flutter Pneumonia Polypharmacy Prostate disease Psoriasis Renal calculi RLS (restless legs syndrome) SVT (supraventricular tachycardia) Urolithiasis Vertigo Walker as ambulation aid Wears glasses Home Medications finasteride 5 mg tablet 5 mg PO DAILY #90 tablet 11/03/18 [Rx Last Taken Unknown] simvastatin 20 mg tablet 20 mg PO QHS #90 tablet 05/10/20 [Rx Last Taken Unknown] apremilast [Otezla] 30 mg PO BID 11/22/20 [History Last Taken Unknown] acetaminophen [Tylenol] 650 mg PO Q4H PRN PRN #0 tab 12/15/20 [Rx Last Taken Unknown] blood sugar diagnostic #100 ea 01/04/21 [Rx Last Taken Unknown] metoprolol succinate 25 mg tablet,extended release 24 hr 75 mg PO BID tab 01/08/21 [History Last Taken 07/03/21 08:00] flecainide 100 mg tablet 100 mg PO Q12H #180 tablet 02/20/21 [Rx Last Taken 07/03/21 08:00] blood pressure monitor #1 ea 03/13/21 [Rx Last Taken Unknown] furosemide 20 mg tablet 20 mg PO BID #180 tab 05/11/21 [Rx Last Taken Unknown] pramipexole 1 mg tablet 2 mg PO QHS tab 05/15/21 [History Last Taken Unknown] docusate sodium [Stool Softener] 100 mg PO BID 07/02/21 [History Last Taken Unknown] ferrous sulfate 325 mg PO TUTH 07/02/21 [History Last Taken Unknown] levomilnacipran [Fetzima] 40 mg PO DAILY 07/02/21 [History Last Taken Unknown] pantoprazole 40 mg tablet,delayed release 40 mg PO DAILY #30 tab 07/03/21 [Rx Last Taken Unknown] ergocalciferol (vitamin D2) 1,250 mcg (50,000 unit) capsule 50,000 unit PO QMONTH #12 cap 07/04/21 [Rx Last Taken Unknown] meclizine 25 mg tablet 25 mg PO 4X/DAY PRN PRN #120 tab 07/17/21 [Rx Last Taken Unknown] dulaglutide 4.5 mg/0.5 mL subcutaneous pen injector 4.5 mg SC .COMPLEX 90 Days #2 ml 07/20/21 [Rx Last Taken Unknown] olmesartan 20 mg tablet 20 mg PO DAILY #30 tab 08/03/21 [Rx Last Taken Unknown] Allergy/AdvReac Type Severity Reaction Status Date / Time hydrocodone bitartrate AdvReac Severe Other Verified 08/05/21 11:07 [From Vicodin] hydroxyzine AdvReac Severe Other Verified 08/05/21 11:07 Family History Father Diabetes Hypertension Cancer Lung cancer Mother Hypertension CVA (cerebral vascular accident) Sister Diabetes Son Diabetes Surgical History History of cardioversion (2015) History of cataract surgery History of left heart catheterization (02/16/13) History of lithotripsy (11/2020) History of radiofrequency ablation procedure for cardiac arrhythmia (02/05/06) history of right knee cap fracture History of right knee surgery Status post laser lithotripsy of ureteral calculus Status post left foot surgery STENT PLACEMENT FOR KIDNEY STONE Social History Smoking Status: Former smoker how long ago did patient quit smokin second hand exposure: No alcohol intake: never substance use type: does not use caffeine: No what type of physical activity do you participate in: none seatbelt use: always do you feel safe at home: Yes ROS ROS Narrative Constitutional: Reports fatigue and generalized weakness. Dizziness and vertigo admission HPI HEENT: Reports systems reviewed and no addt'l complaints, except as documented Respiratory/Chest: Denies chest pain, shortness of breath at rest or with exertion Gastrointestinal: Denies coffee ground emesis, hematemesis or vomiting. Recent food impaction required EGD by Dr. Becerra and had esophageal dilatation. Genitourinary: Denies burning urination or new urinary tract symptoms Musculoskeletal: Reports joint pain and limited range of motion. Uses walker. Decreased ADL Neurologic: Denies seizure-like activity. skin: No ulcer. No rash Endocrinology: Reports systems reviewed and no addt'l complaints, except as documented Hematologic/Lymphatic: Reports systems reviewed and no addt'l complaints, except as documented Rest 12 ROS are negative except as mentioned in HPI Vital Signs Vital Signs Vital Signs: 08/05/21 11:07 08/05/21 11:42 08/05/21 13:26 Temperature 98.2 F 98.2 F Temperature Source Temporal Oral Pulse Rate 70 65 Pulse Rate [Lying] Pulse Rate [Sitting] Respiratory Rate 16 18 Respiratory Effort Normal Non-Labored Respiratory Pattern Normal Blood Pressure 195/72 H 171/74 H Blood Pressure [Lying] Blood Pressure [Sitting] Blood Pressure Mean 113 106 Blood Pressure Mean [Lying] Blood Pressure Mean [Sitting] Pulse Ox 97 98 Oxygen Delivery Method Room Air Room Air 08/05/21 13:47 Temperature Temperature Source Pulse Rate Pulse Rate [Lying] 63 Pulse Rate [Sitting] 64 Respiratory Rate Respiratory Effort Respiratory Pattern Blood Pressure Blood Pressure [Lying] 169/72 H Blood Pressure [Sitting] 177/77 H Blood Pressure Mean Blood Pressure Mean [Lying] 104 Blood Pressure Mean [Sitting] 110 Pulse Ox Oxygen Delivery Method Weight Weight: 250 lb Body Mass Index (BMI) 33.9 Physical Exam Narrative General: Alert, Oriented x3, Cooperative HEENT: Rotatory and horizontal nystagmus observed.Atraumatic, PERRLA, EOMI. Mild or doubtful, small peripheral right upper quadrant decrease/in vision Oral: No Gingival or Mucosal Lesions/ Ulcerations Neck: Supple, No JVD, Negative Carotid Bruits Lungs: Air entry diminished in bilateral lung bases. No crepitation/rhonchi Cardiovascular: Sinus rhythm, Normal S1, Normal S2, No murmurs Abdomen: Bowel Sounds Present, Soft, Non Tender, Non-Distended : No renal angle tenderness. No suprapubic tenderness. Extremities: Mild bilateral ankle edema, Capillary Refill Less than 3 Seconds Skin: No rashes, No breakdown Musculoskeletal: No Tenderness to Palpation of Joints or Extremities Neurological: Cranial nerves II-XII grossly intact, DTR 2+/4 and muscle strength 4/5 at major joints. Psych/Mental Status: Flat affect Results Lab / Micro Data Result Diagrams: 08/05/21 11:40 08/05/21 11:40 Labs: Laboratory Results - last 24 hr 08/05/21 11:40: WBC 6.3, RBC 3.97 L, Hgb 12.2 L, Hct 36.1 L, MCV 90.9, MCH 30.7, MCHC 33.8, RDW Std Deviation 41.7, RDW Coeff of Flavio 12.6, Plt Count 177, MPV 8.9, Immature Gran % (Auto) 0.300, Neut % (Auto) 65.5, Lymph % (Auto) 20.9, [place] % (Auto) 6.7, Eos % (Auto) 5.6 H, Baso % (Auto) 1.0, Absolute Neuts (auto) 4.1, Absolute Lymphs (auto) 1.31, Nucleated RBC % 0 08/05/21 11:40: Sodium 138, Potassium 3.7, Chloride 104, Carbon Dioxide 28.0, Anion Gap 6, BUN 18, Creatinine 1.25, Estim Creat Clear Calc 50.01, Est GFR (MDRD) Af Amer 71, Est GFR (MDRD) Non-Af 59 L, BUN/Creatinine Ratio 14.4, Glucose 300 H, Calcium 8.9, Troponin I High Sens [address] 08/05/21 11:20 IMPRESSION: Normal unenhanced CT scan of the brain. Electronically Signed: Vin Gibbs MD at 12:50 EST Tel , Service support , Assessment & Plan Assessment/Plan (1) Vertigo: PLAN: 1. Hypertensive urgency with vertigo and dizziness rule out posterior ischemic stroke: Patient is being admitted in PCU. Patient on olmesartan at home and resumed first will now. On labetalol 20 mg IV every 4 hourly as needed for systolic blood pressure more than 190 mmHg. If blood pressure still does not decrease, can add IV enalapril. Avoid hydralazine because of dizziness/vertigo/first dose hypotension effect. Scopolamine patch for dizziness, vertigo. If dizziness persists can give diazepam or Solu-Medrol. MRI brain ordered to rule out stroke. If MRI shows a stroke will need full stroke work-up. NIH stroke scale is 0 therefore no need for NIH monitoring until clinical situation changes. Troponin is normal. 2. Paroxysmal A. fib/supraventricular arrhythmia history on flecainide with mild QTC prolongation: QTC slightly prolonged 522 ms as compared to previous EKG mentioned in HPI. QRS interval [address] Marvin. Flecainide dose decreased to 50 mg p.o. twice daily and follow-up EKG tomorrow a.m. if EKG returns to baseline resume the normal dosage. Avoid QTC prolonging drugs like Zofran and meclizine. 3. History of CAD-on statin, metoprolol. Home medications continued 4. Type 2 diabetes mellitus-patient on Trulicity held. Accu-Chek insulin coverage Humalog sliding scale. Glucose is elevated in 300s. Started on Lantus. Dose titrated as per Accu-Cheks 5. Iron deficiency anemia-on ferrous sulfate. 6. Anxiety/depression-hold Fetzima. 7. MACHELLE-continue home CPAP 8. Restless leg syndrome-on Mirapex. 9. BPH-and history of kidney stone lithotripsy on finasteride. 10. Psoriatic arthritis-on apremilast. Hold it 11. Chronic kidney disease stage IIIa-creatinine is stable since January 2021 12. Recent dysphagia secondary to esophageal ring/food impaction: Patient has occasional liquid food dysphagia on PPI. He underwent EGD with dilatation on 07/03/2021 was found reflux esophagitis, low-grade status getting multiple nonbleeding duodenal ulcers with no stigmata of bleeding. Patient had repeat office visit to Dr. Becerra on 07/17 and he had vertigo-like symptoms therefore was started on meclizine at that time. Living will/advanced directive/end of life care: Patient does have living will or advanced directive. After discussion of benefits/risks procedures involved with full code, DNR CC arrest and DNR CC, the patient opted for full code. Patient does want artificial life support including intubation, tube feed, ventilator and/chest compression, central venous catheter, vasopressor and DC shock if needed but does not want to be prolonged on life support for long time if no meaningful recovery Total time spent in [id number] encounter in discussion of advanced directive 16 minutes. Charges/Coding Visit Charges OBSV E&M: 75153 Initial observation care L3 Procedures Hospitalists Procedures: 48953 Advncd Care Plan 30 Min
[2021-08-05 14:06] LABS: Bacteria 0 SEEN /hpf (None Seen); Mucous, Urine 0 SEEN /hpf (<or=2+); Red Blood Cells-Urine 0 SEEN /hpf (0-5); Squamous Epithelial Cells - UA 0 SEEN /hpf (0-5); White Blood Cells 0 SEEN /hpf (0-5)
[2021-08-05 14:07] LABS: Color, Urine Yellow (Yellow); Glucose, Dipstick 1000 mg/dl (Normal); Ketone-Dipstick Negative (Negative); Leukocyte Esterase-Dipstick Negative /ul (Negative); Nitrite-Dipstick Negative (Negative); Occult Blood-Urine 10 /ul (Negative); Protein-Dipstick 100 mg/dl (Negative); Urine Bilirubin Dipstick Negative (Negative); Urine Clarity Clear (Clear); Urine Urobilinogen Normal (Normal); Urine pH 6.5 (5.0 - 8.0)
[2021-08-05 14:09] LABS: Phosphorus 2.5 mg/dL (2.5-4.9)
--- NOTE | 2021-08-05 15:12 | PCS.PANDOC ---
PANDEMIC DOCUMENTATION INITIATED: Date: 04/02/2021 Time: 190
[2021-08-05] MEDS: Scopolamine 1mg/72hr Patch 1 PATCH TD (16:06)
[2021-08-05] MEDS: Na Biphos/Potassium Phosphate PACKET 1 PACKET PO ×2 (16:45→22:02)
[2021-08-05] MEDS: Furosemide 20 MG Tablet PO (16:46)
[2021-08-05] MEDS: Losartan Potassium 100 MG Tablet PO (16:46)
[2021-08-05 17:31] LABS: Bedside Glucose 123 mg/dL (70-110)
[2021-08-05] MEDS: 0.9% Saline Lock 10 ML Syringe IV (17:43)
[2021-08-05] MEDS: Pramipexole Di-HCl 1 MG Tablet 2 MG PO (21:54)
[2021-08-05] MEDS: Atorvastatin Calcium 10 MG Tablet PO (21:54)
[2021-08-05] MEDS: Flecainide 100 MG Tablet 50 MG PO (21:55)
[2021-08-05] MEDS: Metoprolol(XL)Succ 25 MG Tablet 75 MG PO (21:56)
[2021-08-05] MEDS: Docusate Sodium 100 MG Capsule PO (21:58)
[2021-08-05] MEDS: Insulin Lispro 100 UNIT/ML INSULN.PEN SC (22:39)
[2021-08-06] VITALS (12 sets, daily range): BP systolic 169–188; BP diastolic 65–71; PULSE 63–84; RESP 16–18; TEMP 36.6–37.2; O2SAT 94–97
[2021-08-06 00:36] LABS: Bedside Glucose 187 mg/dL (70-110)
[2021-08-06] MEDS: 0.9% Saline Lock 10 ML Syringe IV (03:44)
--- NOTE | 2021-08-06 05:55 | MRI_ITS ---
STUDY: MRI BRAIN WITHOUT CONTRAST REASON FOR EXAM: Male, 81 years old. VERTIGO -- VERTIGO, SBP and gt;190 mmhg TECHNIQUE: Standardized multiplanar fat and water weighted pulse sequences were obtained. COMPARISON: CT of the brain 08/05/2021 MRI of the brain 12/07/2020 FINDINGS: Mild atrophy and periventricular white matter ischemic changes without evidence for acute infarct.. Normal bilateral basal ganglia. Normal thalami. There is no extra-axial fluid accumulation. Normal flow voids within the major intracranial circulation suggesting patency by spin echo criteria. Normal sella turcica, pituitary gland, infundibular stalk, optic chiasm and hypothalamus. Normal tectal plate and pineal gland. Chronic ischemic changes in the clemente Normal midbrain, and medulla. Normal cerebellum. Normal basal cisterns. Normal bilateral temporal bones. Normal bilateral internal auditory canals. Postsurgical changes of the orbits. Normal visualized paranasal sinuses. Normal calvarium and skull base. Normal visualized soft tissue structures. Normal visualized upper cervical spine. No significant change since prior exam MRI/Brain without Contrast IMPRESSION: Mild periventricular white matter ischemic changes without evidence for acute infarct and chronic ischemic changes within the clemente Electronically Signed: Helio Cueto MD at 16:33 EST , Service support ,
--- NOTE | 2021-08-06 05:55 | EKG12_ITS ---
Test Reason : AM EKG Blood Pressure : / mmHG Vent. Rate : 067 BPM Atrial Rate : 067 BPM P-R Int : 096 ms QRS Dur : 102 ms QT Int : 486 ms P-R-T Axes : 045 069 085 degrees QTc Int : 513 ms Sinus rhythm with short NE Nonspecific ST abnormality Prolonged QT Abnormal ECG When compared with ECG of 05-AUG-2021 11:51, MANUAL COMPARISON REQUIRED, DATA IS UNCONFIRMED Confirmed by JORDIN DUNCAN, SYBIL ([id number]), editor in chief newspaper NITZA ROJAS ([id number]) on 08/07/2021 8:42:01 AM Referred By: ALY Confirmed By:SYBIL BRENNER MD
[2021-08-06 06:27] LABS: Absolute Lymphocyte Count 1.79 X10^3/uL (0.83-4.51); Absolute Neutrophil Count 3.8 X10^3/uL (2.0-7.7); Basophil# 0.05 X10^3/uL; Basophil% 0.7 % (0-1); Eosinophil# 0.37 X10^3/uL; Eosinophils% 5.5 % (0-5); Hematocrit 34.8 % (40-54); Hemoglobin 11.7 g/dL (13.0-16.5); Lymphocyte # 1.79 X10^3/ul (0.83-4.51); Lymphocyte % 26.6 % (19-41); Mean Corp Hgb Conc 33.6 g/dL (32-36); Mean Corpuscular Hgb 30.5 pg (27.0-32.0); Mean Corpuscular Volume 90.9 fL (80-94); Mean Platelet Vol. 9.5 fl (6.2-12.0); Monocyte# 0.69 X10^3/uL; Monocyte% 10.3 % (0-10); NRBC Flagged by Analyzer 0 % (0-5); Neutrophil % 56.6 % (47-70); Platelet Count 164 K/mm3 (150-450); RBC Distribution Width CV 12.5 % (11.6-14.6); RBC Distribution Width SD 41.3 fl (35.1-43.9); Red Blood Count 3.83 M/mm3 (4.6-6.2); White Blood Count 6.7 K/mm3 (4.4-11.0)
[2021-08-06] MEDS: Na Biphos/Potassium Phosphate PACKET 1 PACKET PO (06:36)
[2021-08-06] MEDS: Insulin Lispro 100 UNIT/ML INSULN.PEN SC ×3 (06:36→19:56)
[2021-08-06 06:55] LABS: Bedside Glucose 165 mg/dL (70-110)
[2021-08-06 07:15] LABS: Anion Gap 9 (5-15); BUN 16 mg/dL (7-18); BUN/Creat Ratio 12.9 RATIO (10-20); Calcium,Total 8.6 mg/dL (8.5-10.1); Chloride 103 mmol/L (98-107); Creatinine, Serum 1.24 mg/dL (0.70-1.30); EST Glomerular Filtration Rate 59 mL/min (>60); Est Glom Filt Rate - Afr Amer 72 mL/min (>60); Estimated Creatinine Clearance 50.41 ml/min; Glucose 177 mg/dL (74-106); Potassium 3.5 mmol/L (3.5-5.1); Sodium Level 141 mmol/L (136-145); Thyroid Stim Hormone (TSH) 0.59 uIU/mL (0.358-3.74)
[2021-08-06] MEDS: Metoprolol(XL)Succ 25 MG Tablet 75 MG PO ×2 (08:31→19:58)
[2021-08-06] MEDS: Pantoprazole Sodium 40 MG Tablet PO (08:31)
[2021-08-06] MEDS: Flecainide 100 MG Tablet 50 MG PO ×2 (08:32→19:58)
[2021-08-06] MEDS: Losartan Potassium 100 MG Tablet PO (08:32)
[2021-08-06] MEDS: Docusate Sodium 100 MG Capsule PO (08:33)
[2021-08-06] MEDS: Finasteride 5 MG Tablet PO (08:34)
[2021-08-06] MEDS: Furosemide 20 MG Tablet PO ×2 (11:47→16:07)
[2021-08-06] MEDS: amLODIPine 5 MG Tablet PO (11:49)
[2021-08-06 12:01] LABS: Bedside Glucose 211 mg/dL (70-110)
--- NOTE | 2021-08-06 12:09 | PN.HOSP_ITS ---
Documented by User: Gaby Díaz NP-Jerrell 08/06/21 12:23 Subjective Subjective Patient seen and examined. Patient sitting in bed no distress noted. Patient states that he is having continued vertigo. Objective Data Objective Data Vital Signs: Vital Signs Temp Pulse Resp BP Pulse Ox 98.6 F 63 16 188/71 H 97 08/06/21 08:30 08/06/21 11:30 08/06/21 08:30 08/06/21 08:31 08/06/21 08:30 Oxygen Delivery Method Room Air Weight: 254 lb 3.088 oz Body Mass Index (BMI) 34.1 Intake & Output: Intake and Output for Last 24 Hours 08/04/21 08/05/21 08/06/21 23:59 23:59 23:59 Intake Total 817.5 / 817.5 400 / 400 Balance 817.5 / 817.5 400 / 400 Lab / Micro Data Result Diagrams: 08/06/21 05:50 08/06/21 05:50 Labs: Laboratory Results - last 24 hr 08/05/21 11:40: Phosphorus 2.5, Magnesium 2.0 08/05/21 14:00: Urine Color Yellow, Urine Clarity Clear, Urine pH 6.5, Ur Specific [place] 1.010, Urine Protein 100 H, Urine Glucose (UA) 1000 H, Urine Ketones Negative, Urine Occult Blood 10 H, Urine Nitrite Negative, Urine Bilirubin Negative, Urine Urobilinogen Normal, Ur Leukocyte Esterase Negative, Urine RBC 0 SEEN, Urine WBC 0 SEEN, Ur Squamous Epith Cells 0 SEEN, Urine Bacteria 0 SEEN, Urine Mucus 0 SEEN 08/05/21 16:45: POC Glucose 123 H 08/05/21 21:38: POC Glucose 187 H 08/06/21 05:50: WBC 6.7, RBC 3.83 L, Hgb 11.7 L, Hct 34.8 L, MCV 90.9, MCH 30.5, MCHC 33.6, RDW Std Deviation 41.3, RDW Coeff of Flavio 12.5, Plt Count 164, MPV 9.5, Immature Gran % (Auto) 0.300, Neut % (Auto) 56.6, Lymph % (Auto) 26.6, [place] % (Auto) 10.3 H, Eos % (Auto) 5.5 H, Baso % (Auto) 0.7, Absolute Neuts (auto) 3.8, Absolute Lymphs (auto) 1.79, Nucleated RBC % 0 08/06/21 05:50: Sodium 141, Potassium 3.5, Chloride 103, Carbon Dioxide 29.0, Anion Gap 9, BUN 16, Creatinine 1.24, Estim Creat Clear Calc 50.41, Est GFR (MDRD) Af Amer 72, Est GFR (MDRD) Non-Af 59 L, BUN/Creatinine Ratio 12.9, Glucose 177 H, Calcium 8.6, TSH 0.59 08/06/21 06:34: POC Glucose 165 H 08/06/21 11:45: POC Glucose 211 H Radiography Diagnostic Testing: Radiology Impression Brain CT 08/05/21 11:20 IMPRESSION: Normal unenhanced CT scan of the brain. Electronically Signed: Vin Gibbs MD at 12:50 EST Tel , Service support , Physical Exam Const alert, oriented x3 and no apparent distress HEENT head/scalp atraumatic Head and Scalp: normocephalic Eyes conjunctivae normal and no scleral icterus Neck full ROM and supple General: trachea midline Resp normal respiratory effort, normal air movement and clear to auscultation bilaterally Effort and Inspection: able to speak in complete sentences and symmetric chest movement Cardio regular rate, regular rhythm, S1 normal heart sound and S2 normal heart sound GI normal to inspection, nondistended, normoactive bowel sounds, soft to palpation and non-tender Extremity normal to inspection, full ROM and no clubbing, cyanosis or edema Skin no rashes or lesions noted, no wounds and skin turgor normal Neuro oriented x3, moves all extremities, no focal motor deficits and no sensory deficits noted Psych affect normal Assessment & Plan Assessment/Plan (1) Vertigo: (2) Hypertension: QUALIFIERS: Hypertension type: primary hypertension Qualified Code(s): I10 - Essential (primary) hypertension PLAN: 1. Hypertensive urgency with vertigo and dizziness -Patient's blood pressure remains elevated, initiated on amlodipine 5 mg daily -Continue p.o. losartan and metoprolol -As needed labetalol ordered -MRI ordered to rule out stroke 2. Paroxysmal A. fib -Patient arrived with prolonged QT suspects secondary to administration of meclizine for vertigo -Continue flecainide 50 mg twice daily -EKG daily 3. CAD -Continue statin 4. Diabetes mellitus type 2 -Continue AC at bedtime blood sugars with sliding scale insulin -Trulicity on hold -Continue Lantus Patient will be continued on home medications related to other chronic diseases including ARTEMIO, anxiety depression, MACHELLE, restless leg syndrome, BPH, and dysphagia. DVT prophylaxis-not indicated, observation status This patient was seen by Gaby Díaz NP-C under the supervision of Dr. Lockhart. Documented by User: Dr. Giuliana Lockhart MD 08/06/21 18:00 Objective Data Lab / Micro Data Result Diagrams: 08/06/21 05:50 08/06/21 05:50 Charges/Coding Addendum Addendum: This patient was seen in conjunction with Elbert Díaz NP. I have i ndependently interviewed and examined the patient and reviewed pertinent historical, laboratory, and other data. I have reviewed her note and concur with her documentation Patient was seen and examined. Dizziness is much improved. Denied any headaches. Blood pressures uncontrolled. Started on amlodipine Physical Exam: Gen: Comfortable, not pale, not jaundiced CVS:HS I +II, regular, no murmurs RESP: Diminished at lung bases GI: BS present and normal, soft, nontender, no palpable organs EXT:No edema ASSESSMENT: 1. Acute vertigo likely secondary to BPPV 2. Hypertensive urgency 3. Paroxysmal A. fib 4. CAD 5. Type II DM 6. Chronic anemia Plan: Continue blood pressure monitoring Possible DC in a.m. Visit Charges Inpatient E&M: 22147 Subs Hosp L2
[2021-08-06 16:20] LABS: Bedside Glucose 146 mg/dL (70-110)
--- NOTE | 2021-08-06 16:30 | CASEMGMT ---
Intro role of CM to patient and KINNEY form explained re: Observation status for treatment of HTN. Explained hospitalization will be paid per insurance policy for Outpatient billing and condition will continue to be evaluated for Inpt necessity. Discussed Pharmacy section of KINNEY form and self administered medication guideline. Pt verbalizes understanding and does not have further questions. Form signed and placed in chart, copy to pt. Ermias Prescott RN CM
--- NOTE | 2021-08-06 17:28 | CHAPLAIN ---
Type of Pastoral Visit _x_ Initial Visit ___ Follow-up Visit ___ On-call Visit ___ General Patient Visit ___ Spiritual Assessment ___ Family Conference ___ Bereavement ___ Rapid Response ___ Code Blue ___ Other (describe below) Pastoral Care Referral From _x__ Patient ___ Family ___ Nurse ___ Physician ___ Transportation Operations Manager ___ Clinical Reviewer ___ Other (describe below) Sacrament/Intervention _x__ Active listening ___ Anointing ___ Adventist ___ Bereavement ___ Communion _x__ Ariadna exploration ___ ___ Life review _x__ Prayer ___ Reconciliation ___ Sacrament of Sick _x__ Supportive presence ___ Wedding ___ Other (describe below) Pastoral Comments 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
[2021-08-06] MEDS: Pramipexole Di-HCl 1 MG Tablet 2 MG PO (19:58)
[2021-08-06] MEDS: Atorvastatin Calcium 10 MG Tablet PO (19:58)
[2021-08-06 20:16] LABS: Bedside Glucose 201 mg/dL (70-110)
[2021-08-07] VITALS (16 sets, daily range): BP systolic 162–180; BP diastolic 63–85; PULSE 67–80; RESP 14–18; TEMP 36.5–36.8; O2SAT 92–98
--- NOTE | 2021-08-07 05:55 | EKG12_ITS ---
Test Reason : AM EKG Blood Pressure : / mmHG Vent. Rate : 074 BPM Atrial Rate : 074 BPM P-R Int : 208 ms QRS Dur : 094 ms QT Int : 472 ms P-R-T Axes : 000 035 060 degrees QTc Int : 523 ms Sinus rhythm with Premature atrial complexes Nonspecific ST abnormality Prolonged QT Abnormal ECG Confirmed by RIVKA DUNCAN, RAHUL ([id number]), newspaper managing editor NITZA ROJAS ([id number]) on 08/08/2021 10:03:50 AM Referred By: DR LU Confirmed By:RAHUL TINEO MD
[2021-08-07] MEDS: Insulin Lispro 100 UNIT/ML INSULN.PEN SC ×4 (06:16→21:23)
[2021-08-07 06:40] LABS: Bedside Glucose 197 mg/dL (70-110)
--- NOTE | 2021-08-07 07:35 | EKG12_ITS ---
Test Reason : Blood Pressure : / mmHG Vent. Rate : 070 BPM Atrial Rate : 070 BPM P-R Int : 214 ms QRS Dur : 096 ms QT Int : 470 ms P-R-T Axes : 011 054 072 degrees QTc Int : 507 ms Sinus rhythm with 1st degree A-V block Nonspecific ST abnormality Prolonged QT Abnormal ECG When compared with ECG of 07-AUG-2021 05:44, MANUAL COMPARISON REQUIRED, DATA IS UNCONFIRMED Confirmed by JORDIN DUNCAN, SYBIL ([id number]), editorial writer NITZA ROJAS ([id number]) on 08/09/2021 11:42:23 AM Referred By: HOSP Confirmed By:SYBIL BRENNER MD
[2021-08-07] MEDS: Pantoprazole Sodium 40 MG Tablet PO (08:56)
[2021-08-07] MEDS: amLODIPine 10 MG Tablet PO (08:56)
[2021-08-07] MEDS: Flecainide 100 MG Tablet 50 MG PO ×2 (08:56→21:21)
[2021-08-07] MEDS: Docusate Sodium 100 MG Capsule PO ×2 (08:56→21:22)
[2021-08-07] MEDS: Ferrous Sulfate 325 MG Tablet PO (08:56)
[2021-08-07] MEDS: Furosemide 20 MG Tablet PO ×2 (08:56→17:02)
[2021-08-07] MEDS: Metoprolol(XL)Succ 25 MG Tablet 75 MG PO ×2 (08:57→21:20)
[2021-08-07] MEDS: Finasteride 5 MG Tablet PO (08:58)
[2021-08-07] MEDS: Losartan Potassium 100 MG Tablet PO (08:58)
[2021-08-07 12:05] LABS: Bedside Glucose 165 mg/dL (70-110)
--- NOTE | 2021-08-07 12:19 | PCM.PN.HOSP ---
Documented by User: KENRICK Woodard 08/07/21 12:26 Subjective Subjective Patient seen and examined. Patient sitting in chair no distress noted. Patient continues to report dizziness with standing or sudden head movement. Objective Data Objective Data Vital Signs: Vital Signs Temp Pulse Resp BP Pulse Ox 97.7 F L 71 18 180/85 H 97 08/07/21 12:03 08/07/21 12:03 08/07/21 12:03 08/07/21 12:03 08/07/21 12:03 Oxygen Delivery Method Room Air Weight: 254 lb 3.088 oz Body Mass Index (BMI) 34.1 Intake & Output: Intake and Output for Last 24 Hours 08/05/21 08/06/21 08/07/21 23:59 23:59 23:59 Intake Total 817.5 / 817.5 700 / 700 300 / 300 Balance 817.5 / 817.5 700 / 700 300 / 300 Lab / Micro Data Result Diagrams: 08/06/21 05:50 08/06/21 05:50 Labs: Laboratory Results - last 24 hr 08/06/21 16:06: POC Glucose 146 H 08/06/21 19:55: POC Glucose 201 H 08/07/21 06:15: POC Glucose 197 H 08/07/21 11:58: POC Glucose 165 H Radiography Diagnostic Testing: Radiology Impression Brain MRI 08/06/21 05:55 IMPRESSION: Mild periventricular white matter ischemic changes without evidence for acute infarct and chronic ischemic changes within the clemente Electronically Signed: Helio Cueto MD at 16:33 EST , Service support , Physical Exam Const alert, oriented x3 and no apparent distress HEENT head/scalp atraumatic Eyes conjunctivae normal and no scleral icterus Neck full ROM and supple General: trachea midline Resp normal respiratory effort, normal air movement and clear to auscultation bilaterally Effort and Inspection: able to speak in complete sentences and symmetric chest movement Cardio regular rate, regular rhythm, S1 normal heart sound and S2 normal heart sound GI normal to inspection, nondistended, normoactive bowel sounds, soft to palpation and non-tender Extremity normal to inspection, full ROM and no clubbing, cyanosis or edema Skin no rashes or lesions noted, no wounds and skin turgor normal Neuro oriented x3, moves all extremities, no focal motor deficits and no sensory deficits noted Psych affect normal Assessment & Plan Assessment/Plan (1) Vertigo: (2) Hypertension: QUALIFIERS: Hypertension type: primary hypertension Qualified Code(s): I10 - Essential (primary) hypertension PLAN: 1. Hypertensive urgency with vertigo and dizziness -Patient's blood pressure remains elevated, increased amlodipine from 5 mg daily to 10 mg daily and initiated patient on hydralazine 25 mg twice daily -Continue p.o. losartan and metoprolol -As needed labetalol ordered -MRI negative for stroke 2. Paroxysmal A. fib -Patient arrived with prolonged QT suspects secondary to administration of meclizine for vertigo -Continue flecainide 50 mg twice daily -EKG daily 3. CAD -Continue statin 4. Diabetes mellitus type 2 -Continue AC at bedtime blood sugars with sliding scale insulin -Trulicity on hold -Continue Lantus Patient will be continued on home medications related to other chronic diseases including ARTEMIO, anxiety depression, MACHELLE, restless leg syndrome, BPH, and dysphagia. DVT prophylaxis-SCDs This patient was seen by JAYE WoodardC under the supervision of Dr. Lockhart. Documented by User: Dr. Giuliana Lockhart MD 08/07/21 15:36 Objective Data Lab / Micro Data Result Diagrams: 08/06/21 05:50 08/06/21 05:50 Charges/Coding Addendum Addendum: This patient was seen in conjunction with Elbert Díaz NP. I have independently interviewed and examined the patient and reviewed pertinent historical, laboratory, and other data. I have reviewed her note and concur with her documentation Patient was seen and examined. His blood pressure remains uncontrolled. Patient has reportedly been confused on and off. He was alert oriented x3 for me. Unclear of his underlying cognitive condition. Changes were made to his blood pressure medication Physical Exam: Gen: Comfortable, not pale, not jaundiced CVS:HS I +II, regular, no murmurs RESP: Diminished at lung bases GI: BS present and normal, soft, nontender, no palpable organs EXT:No edema ASSESSMENT: 1. Acute vertigo likely secondary to BPPV 2. Hypertensive urgency 3. Paroxysmal A. fib 4. CAD 5. Type II DM 6. Chronic anemia Plan: Patient was started on hydralazine Continue on amlodipine, losartan, metoprolol Continue to monitor cognition We will reevaluate in a.m. for possible discharge Visit Charges Inpatient E&M: 70285 Subs Hosp L2
[2021-08-07] MEDS: hydrALAZINE 25 MG Tablet PO ×2 (12:56→21:22)
[2021-08-07 18:41] LABS: Bedside Glucose 182 mg/dL (70-110)
[2021-08-07] MEDS: Pramipexole Di-HCl 1 MG Tablet 2 MG PO (21:22)
[2021-08-07] MEDS: Atorvastatin Calcium 10 MG Tablet PO (21:22)
[2021-08-07 22:51] LABS: Bedside Glucose 165 mg/dL (70-110)
[2021-08-08] VITALS (10 sets, daily range): BP systolic 140–158; BP diastolic 64–81; PULSE 66–73; RESP 14–16; TEMP 36.3–36.9; O2SAT 96–99
[2021-08-08] MEDS: Insulin Lispro 100 UNIT/ML INSULN.PEN SC ×2 (06:28→11:33)
[2021-08-08 06:35] LABS: Bedside Glucose 267 mg/dL (70-110)
[2021-08-08 09:11] LABS: Basophil# 0.07 X10^3/uL; Basophil% 0.8 % (0-1); Eosinophil# 0.42 X10^3/uL; Eosinophils% 4.6 % (0-5); Hematocrit 43.5 % (40-54); Hemoglobin 14.7 g/dL (13.0-16.5); Lymphocyte % 19.8 % (19-41); Mean Corp Hgb Conc 33.8 g/dL (32-36); Mean Corpuscular Hgb 30.3 pg (27.0-32.0); Mean Corpuscular Volume 89.7 fL (80-94); Mean Platelet Vol. 9.2 fl (6.2-12.0); Monocyte# 0.84 X10^3/uL; Monocyte% 9.2 % (0-10); NRBC Flagged by Analyzer 0 % (0-5); Neutrophil # 5.95 X10^3/uL (2.7-7.7); Neutrophil % 65.3 % (47-70); Platelet Count 228 K/mm3 (150-450); RBC Distribution Width CV 12.6 % (11.6-14.6); RBC Distribution Width SD 41.1 fl (35.1-43.9); Red Blood Count 4.85 M/mm3 (4.6-6.2); White Blood Count 9.1 K/mm3 (4.4-11.0)
[2021-08-08] MEDS: Furosemide 20 MG Tablet PO (09:15)
[2021-08-08] MEDS: Finasteride 5 MG Tablet PO (09:15)
[2021-08-08] MEDS: Pantoprazole Sodium 40 MG Tablet PO (09:15)
[2021-08-08] MEDS: Flecainide 100 MG Tablet 50 MG PO (09:15)
[2021-08-08] MEDS: Docusate Sodium 100 MG Capsule PO (09:15)
[2021-08-08] MEDS: amLODIPine 10 MG Tablet PO (09:15)
[2021-08-08] MEDS: Losartan Potassium 100 MG Tablet PO (09:15)
[2021-08-08] MEDS: Metoprolol(XL)Succ 25 MG Tablet 75 MG PO (09:16)
[2021-08-08] MEDS: hydrALAZINE 25 MG Tablet PO (09:18)
[2021-08-08 09:36] LABS: ALB/GLOB Ratio 0.7 RATIO (0.9-2.4); AST(SGOT) 21 U/L (15-37); Alanine Aminotransfer ALT/SGPT 24 U/L (16-61); Albumin, Serum 3.1 g/dL (3.2-5.0); Alkaline Phosphatase 85 U/L (45-117); Anion Gap 7 (5-15); BUN 25 mg/dL (7-18); BUN/Creat Ratio 16.7 RATIO (10-20); Calcium,Total 9.8 mg/dL (8.5-10.1); Chloride 102 mmol/L (98-107); EST Glomerular Filtration Rate 48 mL/min (>60); Est Glom Filt Rate - Afr Amer 58 mL/min (>60); Estimated Creatinine Clearance 41.67 ml/min; Globulin 4.7 g/dL (2.2-4.2); Glucose 223 mg/dL (74-106); Potassium 4.1 mmol/L (3.5-5.1); Protein, Total 7.8 g/dL (6.4-8.2); Sodium Level 137 mmol/L (136-145)
[2021-08-08 11:41] LABS: Bedside Glucose 287 mg/dL (70-110)
--- NOTE | 2021-08-08 12:59 | PCM.DC ---
Discharge Instructions Diet Discharge Diet: Low fat / Low cholesterol Activity Discharge Activity: Return to Normal Activity Dressing / Incision Call your doctor if you observe: Dizziness, Fainting spells, Chest pain and Increased palpitations (irregular heartbeat) Follow Up Care Test Results: Test results from this visit will be discussed in further detail at your follow-up appointment, if applicable. Discharge Plan Admission Admit Date/Time: 08/07/21 13:52 Primary Reason for Your Visit: Hypertension, Vertigo Attending Provider: Giuliana Lockhart Primary Care Provider: Tosha Shrestha Discharge Orders/Prescriptions Prescriptions: New hydralazine 25 mg Tablet 25 mg PO BID Qty: 60 RF: 0 amlodipine 10 mg Tablet 10 mg PO DAILY Qty: 30 RF: 0 Continued pramipexole [Mirapex] 1 mg tablet 2 mg PO QHS RF: 0 meclizine 25 mg tablet 25 mg PO 4X/DAY PRN PRN (Reason: Dizziness) Qty: 120 RF: 0 olmesartan 20 mg tablet 20 mg PO DAILY Qty: 30 RF: 1 Otezla 30 MG tablet 30 mg PO BID RF: 0 acetaminophen [Tylenol] 325 mg Tablet 650 mg PO Q4H PRN PRN (Reason: Pain 1-10 Or Fever) Qty: 0 RF: 0 docusate sodium [Stool Softener] 100 mg Capsule 100 mg PO BID RF: 0 ferrous sulfate 325 mg (65 mg iron) tablet 325 mg PO TUTH RF: 0 Fetzima 40 mg capsule,extended release 24 hr 40 mg PO DAILY RF: 0 finasteride 5 mg tablet 5 mg PO DAILY Qty: 90 RF: 3 simvastatin 20 mg tablet 20 mg PO QHS Qty: 90 RF: 3 metoprolol succinate 25 mg tablet extended release 24 hr 75 mg PO BID RF: 0 flecainide 100 mg tablet 100 mg PO Q12H Qty: 180 RF: 3 furosemide 20 mg tablet 20 mg PO BID Qty: 180 RF: 2 pantoprazole 40 mg tablet,delayed release (DR/EC) 40 mg PO DAILY Qty: 30 RF: 3 ergocalciferol (vitamin D2) 1,250 mcg (50,000 unit) capsule 50,000 unit PO QMONTH Qty: 12 RF: 0 dulaglutide 4.5 mg/0.5 mL pen injector 4.5 mg SC .COMPLEX 90 Days Qty: 2 RF: 2 No Action (DME) blood pressure monitor Kit See Rx Instructions .ROUTE .MEDSUPPLY Qty: 1 RF: 0 (DME) blood sugar diagnostic Strip See Rx Instructions .ROUTE .MEDSUPPLY Qty: 100 RF: 0 Referrals / Follow Up: Tosha Shrestha MD [Primary Care Provider] - Within 2 Weeks Disposition Disposition (needs filled in before D/C Order can be placed): Home, Self Care
--- NOTE | 2021-08-08 13:09 | DS.PCM_ITS ---
Documented by User: KENRICK Woodard 08/08/21 13:13 Providers Date of Admission: 08/07/21 Primary Care Physician: Dr. Tosha Shrestha MD Reason For Visit: HYPERTENIVE URGENCY WITH VERTIGO Diagnosis Discharge Diagnosis (1) Vertigo: Status: Acute Code(s): R42 - Dizziness and giddiness (2) Hypertension: Status: Chronic Code(s): I10 - Essential (primary) hypertension Qualifiers: Hypertension type: primary hypertension Qualified Code(s): I10 - Essential (primary) hypertension Medications at Discharge Home Medications finasteride 5 mg tablet 5 mg PO DAILY #90 tablet 11/03/18 simvastatin 20 mg tablet 20 mg PO QHS #90 tablet 05/10/20 Otezla 30 mg PO BID 11/22/20 acetaminophen [Tylenol] 650 mg PO Q4H PRN PRN #0 tab 12/15/20 blood sugar diagnostic #100 ea 01/04/21 metoprolol succinate 25 mg tablet,extended release 24 hr 75 mg PO BID tab 01/08/21 flecainide 100 mg tablet 100 mg PO Q12H #180 tablet 02/20/21 blood pressure monitor #1 ea 03/13/21 furosemide 20 mg tablet 20 mg PO BID #180 tab 05/11/21 pramipexole 1 mg tablet 2 mg PO QHS tab 05/15/21 Fetzima 40 mg PO DAILY 07/02/21 docusate sodium [Stool Softener] 100 mg PO BID 07/02/21 ferrous sulfate 325 mg PO TUTH 07/02/21 pantoprazole 40 mg tablet,delayed release 40 mg PO DAILY #30 tab 07/03/21 ergocalciferol (vitamin D2) 1,250 mcg (50,000 unit) capsule 50,000 unit PO QMONTH #12 cap 07/04/21 meclizine 25 mg tablet 25 mg PO 4X/DAY PRN PRN #120 tab 07/17/21 dulaglutide 4.5 mg/0.5 mL subcutaneous pen injector 4.5 mg SC .COMPLEX 90 Days #2 ml 07/20/21 olmesartan 20 mg tablet 20 mg PO DAILY #30 tab 08/03/21 amlodipine 10 mg PO DAILY #30 tab 08/08/21 hydralazine 25 mg PO BID #60 tab 08/08/21 Hospital Course Operations None Procedures None Summary of Care Provided Minutes Spent on Discharge: 35 Hospital Course: Patient is an 81-year-old male who initially presented with hypertensive urgency as well as vertigo. Patient treated with scopolamine patch as well as p.o. meclizine during admission for vertigo. Patient continued to be hypertensive despite initiation of amlodipine. Patient will be discharged home on amlodipine 10 mg daily which is a new medication for the patient as well as hydralazine 25 mg twice daily. Patient will continue his home antihypertensives including losartan, metoprolol, furosemide. Patient will be instructed to follow-up with his primary care provider in the next 2 weeks for further evaluation of his blood pressure. Physical Exam Const alert, oriented x3 and no apparent distress HEENT head/scalp atraumatic Eyes conjunctivae normal and no scleral icterus Neck full ROM and supple General: trachea midline Resp normal respiratory effort, normal air movement and clear to auscultation bilaterally Effort and Inspection: able to speak in complete sentences and symmetric chest movement Cardio regular rate, regular rhythm, S1 normal heart sound and S2 normal heart sound GI normal to inspection, nondistended, normoactive bowel sounds, soft to palpation and non-tender Extremity normal to inspection, full ROM and no clubbing, cyanosis or edema Skin no rashes or lesions noted, no wounds and skin turgor normal Neuro oriented x3, moves all extremities, no focal motor deficits and no sensory deficits noted Psych affect normal Weight / BMI Weight Weight: 242 lb 11.663 oz Body Mass Index (BMI) 34.1 ABG / Lab / Microbiology Data Result Diagrams: 08/08/21 09:00 08/08/21 09:00 Laboratory: Laboratory Results - last 24 hr 08/07/21 17:00: POC Glucose 182 H 08/07/21 21:16: POC Glucose 165 H 08/08/21 06:26: POC Glucose 267 H 08/08/21 09:00: WBC 9.1, RBC 4.85, Hgb 14.7, Hct 43.5, MCV 89.7, MCH 30.3, MCHC 33.8, RDW Std Deviation 41.1, RDW Coeff of Flavio 12.6, Plt Count 228, MPV 9.2, Immature Gran % (Auto) 0.300, Neut % (Auto) 65.3, Lymph % (Auto) 19.8, [place] % (Auto) 9.2, Eos % (Auto) 4.6, Baso % (Auto) 0.8, Absolute Neuts (auto) 6.0, Absolute Lymphs (auto) 1.80, Nucleated RBC % 0 08/08/21 09:00: Sodium 137, Potassium 4.1, Chloride 102, Carbon Dioxide 28.0, Anion Gap 7, BUN 25 H, Creatinine 1.50 H, Estim Creat Clear Calc 41.67, Est GFR (MDRD) Af Amer 58 L, Est GFR (MDRD) Non-Af 48 L, BUN/Creatinine Ratio 16.7, Glucose 223 H, Calcium 9.8, Total Bilirubin 0.80, AST 21, ALT 24, Alkaline Phosphatase 85, Total Protein 7.8, Albumin 3.1 L, Globulin 4.7 H, Albumin/Globulin Ratio 0.7 L 08/08/21 11:32: POC Glucose 287 H D/C Instructions Discharge Diet: Low fat / Low cholesterol Call your doctor if you observe: Dizziness, Fainting spells, Chest pain and Increased palpitations (irregular heartbeat) Meaningful Use Info Meaningful Use Diagnoses (Choose all that apply): None applicable Discharge Plan Admission Admit Date/Time: 08/07/21 13:52 Primary Reason for Your Visit: Hypertension, Vertigo Attending Provider: Giuliana Lockhart Primary Care Provider: Tosha Shrestha Discharge Orders/Prescriptions Prescriptions: New hydralazine 25 mg Tablet 25 mg PO BID Qty: 60 RF: 0 amlodipine 10 mg Tablet 10 mg PO DAILY Qty: 30 RF: 0 Continued pramipexole [Mirapex] 1 mg tablet 2 mg PO QHS RF: 0 meclizine 25 mg tablet 25 mg PO 4X/DAY PRN PRN (Reason: Dizziness) Qty: 120 RF: 0 olmesartan 20 mg tablet 20 mg PO DAILY Qty: 30 RF: 1 Otezla 30 MG tablet 30 mg PO BID RF: 0 acetaminophen [Tylenol] 325 mg Tablet 650 mg PO Q4H PRN PRN (Reason: Pain 1-10 Or Fever) Qty: 0 RF: 0 docusate sodium [Stool Softener] 100 mg Capsule 100 mg PO BID RF: 0 ferrous sulfate 325 mg (65 mg iron) tablet 325 mg PO TUTH RF: 0 Fetzima 40 mg capsule,extended release 24 hr 40 mg PO DAILY RF: 0 finasteride 5 mg tablet 5 mg PO DAILY Qty: 90 RF: 3 simvastatin 20 mg tablet 20 mg PO QHS Qty: 90 RF: 3 metoprolol succinate 25 mg tablet extended release 24 hr 75 mg PO BID RF: 0 flecainide 100 mg tablet 100 mg PO Q12H Qty: 180 RF: 3 furosemide 20 mg tablet 20 mg PO BID Qty: 180 RF: 2 pantoprazole 40 mg tablet,delayed release (DR/EC) 40 mg PO DAILY Qty: 30 RF: 3 ergocalciferol (vitamin D2) 1,250 mcg (50,000 unit) capsule 50,000 unit PO QMONTH Qty: 12 RF: 0 dulaglutide 4.5 mg/0.5 mL pen injector 4.5 mg SC .COMPLEX 90 Days Qty: 2 RF: 2 No Action (DME) blood pressure monitor Kit See Rx Instructions .ROUTE .MEDSUPPLY Qty: 1 RF: 0 (DME) blood sugar diagnostic Strip See Rx Instructions .ROUTE .MEDSUPPLY Qty: 100 RF: 0 Referrals / Follow Up: Tosha Shrestha MD [Primary Care Provider] - 08/22/21 2:00 pm Disposition Disposition (needs filled in before D/C Order can be placed): Home, Self Care Documented by User: Dr. Giuliana Lockhart MD 08/08/21 14:10 Providers Date of Admission: 08/07/21 Reason For Visit: HYPERTENIVE URGENCY WITH VERTIGO Medications at Discharge Home Medications finasteride 5 mg tablet 5 mg PO DAILY #90 tablet 11/03/18 simvastatin 20 mg tablet 20 mg PO QHS #90 tablet 05/10/20 Otezla 30 mg PO BID 11/22/20 acetaminophen [Tylenol] 650 mg PO Q4H PRN PRN #0 tab 12/15/20 blood sugar diagnostic #100 ea 01/04/21 metoprolol succinate 25 mg tablet,extended release 24 hr 75 mg PO BID tab 01/08/21 flecainide 100 mg tablet 100 mg PO Q12H #180 tablet 02/20/21 blood pressure monitor #1 ea 03/13/21 furosemide 20 mg tablet 20 mg PO BID #180 tab 05/11/21 pramipexole 1 mg tablet 2 mg PO QHS tab 05/15/21 Fetzima 40 mg PO DAILY 07/02/21 docusate sodium [Stool Softener] 100 mg PO BID 07/02/21 ferrous sulfate 325 mg PO TUTH 07/02/21 pantoprazole 40 mg tablet,delayed release 40 mg PO DAILY #30 tab 07/03/21 ergocalciferol (vitamin D2) 1,250 mcg (50,000 unit) capsule 50,000 unit PO QMONTH #12 cap 07/04/21 meclizine 25 mg tablet 25 mg PO 4X/DAY PRN PRN #120 tab 07/17/21 dulaglutide 4.5 mg/0.5 mL subcutaneous pen injector 4.5 mg SC .COMPLEX 90 Days #2 ml 07/20/21 olmesartan 20 mg tablet 20 mg PO DAILY #30 tab 08/03/21 amlodipine 10 mg PO DAILY #30 tab 08/08/21 hydralazine 25 mg PO BID #60 tab 08/08/21 ABG / Lab / Microbiology Data Result Diagrams: 08/08/21 09:00 08/08/21 09:00 Discharge Plan Admission Admit Date/Time: 08/07/21 13:52 Primary Reason for Your Visit: Hypertension, Vertigo Attending Provider: Giuliana Lockhart Primary Care Provider: Tosha Shrestha Discharge Orders/Prescriptions Prescriptions: New hydralazine 25 mg Tablet 25 mg PO BID Qty: 60 RF: 0 amlodipine 10 mg Tablet 10 mg PO DAILY Qty: 30 RF: 0 Continued pramipexole [Mirapex] 1 mg tablet 2 mg PO QHS RF: 0 meclizine 25 mg tablet 25 mg PO 4X/DAY PRN PRN (Reason: Dizziness) Qty: 120 RF: 0 olmesartan 20 mg tablet 20 mg PO DAILY Qty: 30 RF: 1 Otezla 30 MG tablet 30 mg PO BID RF: 0 acetaminophen [Tylenol] 325 mg Tablet 650 mg PO Q4H PRN PRN (Reason: Pain 1-10 Or Fever) Qty: 0 RF: 0 docusate sodium [Stool Softener] 100 mg Capsule 100 mg PO BID RF: 0 ferrous sulfate 325 mg (65 mg iron) tablet 325 mg PO TUTH RF: 0 Fetzima 40 mg capsule,extended release 24 hr 40 mg PO DAILY RF: 0 finasteride 5 mg tablet 5 mg PO DAILY Qty: 90 RF: 3 simvastatin 20 mg tablet 20 mg PO QHS Qty: 90 RF: 3 metoprolol succinate 25 mg tablet extended release 24 hr 75 mg PO BID RF: 0 flecainide 100 mg tablet 100 mg PO Q12H Qty: 180 RF: 3 furosemide 20 mg tablet 20 mg PO BID Qty: 180 RF: 2 pantoprazole 40 mg tablet,delayed release (DR/EC) 40 mg PO DAILY Qty: 30 RF: 3 ergocalciferol (vitamin D2) 1,250 mcg (50,000 unit) capsule 50,000 unit PO QMONTH Qty: 12 RF: 0 dulaglutide 4.5 mg/0.5 mL pen injector 4.5 mg SC .COMPLEX 90 Days Qty: 2 RF: 2 No Action (DME) blood pressure monitor Kit See Rx Instructions .ROUTE .MEDSUPPLY Qty: 1 RF: 0 (DME) blood sugar diagnostic Strip See Rx Instructions .ROUTE .MEDSUPPLY Qty: 100 RF: 0 Referrals / Follow Up: Tosha Shrestha MD [Primary Care Provider] - 08/22/21 2:00 pm Disposition Disposition (needs filled in before D/C Order can be placed): Home, Self Care Charges/Coding Addendum Addendum: This patient was seen in conjunction with Elbert Díaz NP. I have independently interviewed and examined the patient and reviewed pertinent historical, laboratory, and other data. I have reviewed her note and concur with her documentation 81-year-old male with multiple comorbidities including CAD, heart failure preserved EF, who presented with dizziness and vertigo ongoing for more than a year but worse over the past 1 week. Patient was admitted for work-up for acute stroke. MRI of the brain was negative. Orthostatic vitals were negative his blood pressure was uncontrolled. Changes were made to his medications. Patient's blood pressure was better controlled at discharge. Patient had episodes of confusion that was worse in the evening. Unclear if patient had cognitive impairment at home. On the day of discharge, patient was seen and examined. Denied any new complaints. Physical Exam: Gen: Comfortable, not pale, not jaundiced CVS:HS I +II, regular, no murmurs RESP: Diminished at lung bases GI: BS present and normal, soft, nontender, no palpable organs EXT:No edema Visit Charges Inpatient E&M: 44186 Disch Hosp
--- NOTE | 2021-08-08 14:30 | CASEMGMT ---
TIMOTHY LOPEZ AGRICULTURE PROFESSOR CM to room to meet with patient for initial transition planning/care coordination assessment. TIMOTHY LOPEZ introduced self and role at [facility]. Pt sitting up in recliner chair sleeping and woke up when RN JESSICA came in room. Pt disoriented upon awakening and thought he was at home. Attempted to reorient several times. Pt would state, Oh yeah, that's right when informed he was at the hospital. Then a few minutes later, pt thought he was at home again. Pt was able to answer some questions appropriately. Call placed to pt's and further information obtained. She states he has not been diagnosed w/dementia but she states she has been noticing he has been becoming more forgetful @ home. TIMOTHY LOPEZ also spoke w/pt's dtr, Na, and questions answered. Discussed options of HHC and SNF w/both and dtr. and dtr both state they feel pt would do better once he is at home in his own environment and voice concern of him becoming more disoriented going to a SNF. Care providers, pharmacy, and demographics verified/updated at this time. PCP: Dr Shrestha Specialists: Dr Rogers-cardiology, Dr Field-nephrology Preferred Pharmacy:[facility] Insurance: [employer] Prescription Benefit: Yes Living Will/HPOA: Has both. is HPOA LNOK: , Coby. Dtr, Na. Son, Arnel Living Arrangements: Lives w/ in one-story home w/basement. No steps to enter thru side entrance. 2 steps thru garage. Uses walker @ baseline. Indep w/ADL's prior to admission. /pt share home tasks. Transportation: provides most transportation. Pt states he does drive on occasion. DME: Has the following DME: glucometer, lift chair, BIPAP, walker States no need for further DME at this time. HHC/SNF: Hx of going to [facility] and has had HHC in the past. Pt wishes to return home and and dtr are agreeable. spoke w/pt and they agreed on HHC. Pt/ state they would also like an aide. They were provided with list of HHC providers including quality and resource use data and consistent with the patient's preferred geographic region, medical needs, and insurance network. Their preferred provider is [facility] ARTI Kay @ [facility] and referral made. Order placed for SN, PT/OT and an aide. Eliza aware pt is discharging today. They can accept pt w/SOC tomorrow. Pt and both made aware. denies having any further discharge planning needs. She and pt state they would like to talk w/[facility]. Dani. ROCHA, was made aware. PLAN: Home w/[facility] and family support. Allie GUN RN CM
== END 2021-08-08 15:15 | disposition home health service (06) | DRG 305 ==
LOC: ED 13:20 → PCU 13:24
PROVIDERS: Nurse Practitioner Family; Admitting Provider Internal Medicine; Emergency Provider Emergency Medicine; PCP Internal Medicine; Visit Provider Internal Medicine
DX: I16.0 Hypertensive urgency (principal); I50.32 Chronic diastolic (congestive) heart failure; I13.0 Hypertensive heart and chronic kidney disease with heart failure and stage 1 through stage 4 chronic kidney disease, or unspecified chronic kidney disease; D63.1 Anemia in chronic kidney disease; E11.22 Type 2 diabetes mellitus with diabetic chronic kidney disease; E11.42 Type 2 diabetes mellitus with diabetic polyneuropathy; H81.10 Benign paroxysmal vertigo, unspecified ear; I25.10 Atherosclerotic heart disease of native coronary artery without angina pectoris; N40.0 Benign prostatic hyperplasia without lower urinary tract symptoms; K21.9 Gastro-esophageal reflux disease without esophagitis; E78.5 Hyperlipidemia, unspecified; G47.33 Obstructive sleep apnea (adult) (pediatric); G25.81 Restless legs syndrome; I48.0 Paroxysmal atrial fibrillation; D50.0 Iron deficiency anemia secondary to blood loss (chronic); F41.9 Anxiety disorder, unspecified; F32.A Depression, unspecified; L40.50 Arthropathic psoriasis, unspecified; N18.31 Chronic kidney disease, stage 3a; Z79.899 Other long term (current) drug therapy; Z79.4 Long term (current) use of insulin; Z87.891 Personal history of nicotine dependence
CPT/HCPCS: 36415; 70450; 70551; 80048; 80053; 81001; 82962; 83735; 84100; 84443; 84484; 85025; 93005; 97110; 97116; 97162; 97166; 97530; 97535; 99285; J7030; A4216

== ENCOUNTER 2021-08-21 11:17 | Emergency (ER) | payer MEDICARE, BC, SELFPAY ==
[2021-08-21 11:18] VITALS: BP 157/67; PULSE 68; RESP 18; TEMP 36.1; O2SAT 97; BMI 34.4
--- NOTE | 2021-08-21 12:18 | VDLE_ITS ---
Reason For Study: pain Procedure LEFT This is a venous duplex using B-mode, color GSV is normal. flow and spectral Doppler. CFV is compressible, spontaneous, phasic, Exam performed in department. competent, and demonstrates normal The exam was abbreviated due to the COVID 19 augmentation. protocol. FV is compressible, spontaneous, phasic, The exam was diagnostic. competent and demonstrates normal A preliminary report was called and/or faxed augmentation. to ED staff. POP V is compressible, spontaneous, phasic, competent and demonstrates normal augmentation. PTV is compressible. LT PerV is compressible. Gastroc V are dilated and noncompressible. T/P Trunk is partially compressible. VL/Venous Duplex US, Unilateral Interpretation Summary Acute deep venous thrombosis left gastrocnemius vein. Patent and compressible left great saphenous vein Abbreviated COVID-19 protocol utilized Ordering Physician: Mehul Talley Performed By: Dante Shultz RVT
--- NOTE | 2021-08-21 13:33 | ED.VIS.LOWEX ---
HPI History of Present Illness HPI Narrative: Left calf pain last night. Chief Complaint: Lower Extremity Injury Detail of Chief Complaint: No injury. Informant: patient and spouse/S.O. Onset/Context/Timing Onset: Yesterday Context: Gradual Onset Timing: Intermittent Quality of Pain: Sharp Current Severity: Mild Maximum Severity: Mild Associated Symptoms Associated Symptoms: Negative for Parasthesia, Weakness and Loss of Funtion Narrative Narrative: 81-year-old male history of diabetes, anemia, prior GI bleed from ulcerations. 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 He was on Xarelto but had to be taken off due to GI bleed and I think head injury with an intracranial bleed. He also has a history of atrial flutter. Basically he has chronic lower extremity swelling that comes and goes. Last night he had calf pain. He has a home health aide who thought he should have his evaluated today. He has had known clots in his left lower leg before. Prior similar symptoms: Yes Recent Illness/Hospitalization: No PFSH PFSH Medical History (HFpEF) heart failure with preserved ejection fraction (12/12/20) Acute respiratory failure with hypoxia Anemia Anemia of chronic renal failure, stage 3 (moderate) Anxiety and depression Atherosclerotic heart disease of [place] coronary artery without angina pectoris Atrial flutter Back pain BMI 34.0-34.9,adult BPH (benign prostatic hyperplasia) BPPV (benign paroxysmal positional vertigo) Cardiac dysrhythmia Cardiology follow-up encounter De Quervain's tenosynovitis Depression Dermatitis Diabetes mellitus Diabetic kidney disease Dizziness DM type 2 with diabetic peripheral neuropathy DVT (deep venous thrombosis) Dyslipidemia Dysphagia Essential (primary) hypertension Fall Fracture of great toe Gastric reflux Health care maintenance History of echocardiogram History of edema History of GI bleed History of peptic ulcer History of renal calculi History of ulceration HLD (hyperlipidemia) Injury of head and neck Iron deficiency anemia Iron deficiency anemia due to chronic blood loss Kidney hematoma (12/08/20) Loss of equilibrium Low iron Malaise Near syncope Orthostatic hypotension MACHELLE (obstructive sleep apnea) Paroxysmal atrial flutter Pneumonia Polypharmacy Prostate disease Psoriasis Renal calculi RLS (restless legs syndrome) SVT (supraventricular tachycardia) Urolithiasis Vertigo Walker as ambulation aid Wears glasses Home Medications finasteride 5 mg tablet 5 mg PO DAILY #90 tablet 11/03/18 [Rx Last Taken 08/05/21] simvastatin 20 mg tablet 20 mg PO QHS #90 tablet 05/10/20 [Rx Last Taken 08/04/21] Otezla 30 mg PO BID 11/22/20 [History Last Taken 08/05/21] acetaminophen [Tylenol] 650 mg PO Q4H PRN PRN #0 tab 12/15/20 [Rx Last Taken Unknown] blood sugar diagnostic #100 ea 01/04/21 [Rx Last Taken Unknown] metoprolol succinate 25 mg tablet,extended release 24 hr 75 mg PO BID tab 01/08/21 [History Last Taken 08/05/21] flecainide 100 mg tablet 100 mg PO Q12H #180 tablet 02/20/21 [Rx Last Taken 08/05/21] blood pressure monitor #1 ea 03/13/21 [Rx Last Taken Unknown] furosemide 20 mg tablet 20 mg PO BID #180 tab 05/11/21 [Rx Last Taken 08/05/21] pramipexole 1 mg tablet 2 mg PO QHS tab 05/15/21 [History Last Taken 08/04/21] Fetzima 40 mg PO DAILY 07/02/21 [History Last Taken 08/05/21] docusate sodium [Stool Softener] 100 mg PO BID 07/02/21 [History Last Taken 08/05/21] ferrous sulfate 325 mg PO TUTH 07/02/21 [History Last Taken 08/02/21] pantoprazole 40 mg tablet,delayed release 40 mg PO DAILY #30 tab 07/03/21 [Rx Last Taken 08/05/21] ergocalciferol (vitamin D2) 1,250 mcg (50,000 unit) capsule 50,000 unit PO QMONTH #12 cap 07/04/21 [Rx Last Taken 07/18/21] meclizine 25 mg tablet 25 mg PO 4X/DAY PRN PRN #120 tab 07/17/21 [Rx Last Taken Unknown] dulaglutide 4.5 mg/0.5 mL subcutaneous pen injector 4.5 mg SC .COMPLEX 90 Days #2 ml 07/20/21 [Rx Last Taken 08/03/21] olmesartan 20 mg tablet 20 mg PO DAILY #30 tab 08/03/21 [Rx Last Taken 08/05/21] dapagliflozin 10 mg tablet 10 mg PO QAM #60 tab 08/15/21 [Rx Last Taken Unknown] amlodipine 10 mg tablet 10 mg PO DAILY #90 tab 08/20/21 [Rx Last Taken Unknown] hydralazine 25 mg tablet 25 mg PO BID #180 tab 08/20/21 [Rx Last Taken Unknown] Allergy/AdvReac Type Severity Reaction Status Date / Time hydrocodone bitartrate AdvReac Severe Other Verified 08/21/21 11:18 [From Vicodin] hydroxyzine AdvReac Severe Other Verified 08/21/21 11:18 Family History Father Diabetes Hypertension Cancer Lung cancer Mother Hypertension CVA (cerebral vascular accident) Sister Diabetes Son Diabetes Surgical History History of cardioversion (2015) History of cataract surgery History of left heart catheterization (02/16/13) History of lithotripsy (11/2020) History of radiofrequency ablation procedure for cardiac arrhythmia (02/05/06) history of right knee cap fracture History of right knee surgery Status post laser lithotripsy of ureteral calculus Status post left foot surgery STENT PLACEMENT FOR KIDNEY STONE Social History Smoking Status: Former smoker how long ago did patient quit smokin second hand exposure: No alcohol intake: never substance use type: does not use caffeine: No what type of physical activity do you participate in: none seatbelt use: always do you feel safe at home: Yes ROS ROS ED ROS Narrative Denies recent illness. Review of Systems ROS Unobtainable: Denies due to encephalopathy Constitutional Constitutional ED: Denies fever(s) or subjective Eyes Eyes: Denies change in vision ENT ENT ED: Denies ear pain or rhinorrhea Cardiovascular Cardiovascular: Denies chest pain or palpitations Respiratory/Chest Respiratory/Chest: Denies cough or dyspnea Gastrointestinal Gastrointestinal: Denies abdominal pain, nausea or vomiting Genitourinary Genitourinary ED: Denies dysuria Musculoskeletal Musculoskeletal: Denies myalgias Integumentary Denies rash Neurologic Neurologic: Denies headache(s) Psychiatric Psychiatric: Denies depression Endocrine Endocrinology: Denies polyuria Hematologic/Lymphatic Hematologic/Lymphatic: Denies easy bruising Allergic/Immunologic Allergic/Immunologic ED: Denies urticaria EXAM Physical Exam Narrative Exam Narrative: 7-year-old male no acute distress signs stable afebrile. H EENT exam unremarkable. Lungs clear to auscultation. Heart regular rate and rhythm rate about 70 no murmur. Abdomen soft nontender normal bowel sounds no peritoneal signs. Moving all 4 extremities. 1+ pitting edema both lower extremities below the knees. Equal symmetrical. Mild left calf tenderness. No cellulitis. Dorsi plantarflexion intact. Neurologically is awake and alert. Const Vital Signs: 08/21/21 11:18 Temperature 96.9 F L Temperature Source Temporal Pulse Rate 68 Respiratory Rate 18 Blood Pressure 157/67 H Blood Pressure Mean 97 Pulse Ox 97 Oxygen Delivery Method Room Air Positive well nourished, well developed and obese; Negative for cachectic, contractures or unkempt General Appearance ED: well developed and NAD; Negative for unkempt, cachectic or contractures Nutritional Appearance: obese; Negative for cachectic HEENT Reports moist mucous membranes normocephalic and atraumatic; Negative for trauma or tenderness Eyes PERRL Neck full ROM and supple Thyroid: Negative for tender Chest Wall inspection of chest normal and palpation of chest normal Resp normal respiratory effort, no retractions and clear to auscultation bilaterally Auscultation: Negative for rales, rhonchi or wheezes Cardio regular rate, regular rhythm, S1 normal heart sound, S2 normal heart sound and no murmurs GI non-tender, non-distended and no masses Auscultation: normoactive bowel sounds Palpation: soft; Negative for tender, guarding or rebound tenderness present Back/Spine no CVA tenderness Extremity full ROM; Negative for normal to inspection Extremity Narrative: Bilateral lower extremity 1+ pitting edema. Mild left calf tenderness. General Extremety ED: Yes edema; Negative for cyanosis General Extremity: edema; Negative for cyanosis Psych mental status grossly normal Appearance: Negative for unkempt Mood & Affect: Negative for anxious Skin no wounds Lesions: no lesions Rashes: no rashes Trauma: Negative for abrasion or laceration MDM MDM MDM Narrative Medical decision making narrative: 81-year-old male with known prior DVT postoperatively. He Tri-Vi-Belia he was on Xarelto but had to be taken off due to either internal bleeding or all fall and a head bleed or both. He is currently not on any blood thinners. Ultrasound today shows what looks like a gastric vein DVT the question is this is new or old. If acute dizzy even need to be put on blood thinners or it is the risk outweigh the reward. I have his primary care physician on page. Repeat exam patient doing well at 1:55 PM. Exam is unchanged. He and his and myself all discussed the possibility of this being an old clot versus a new clot. It is below the knee. He has had both a prior GI bleed and an intracranial bleed when he fell and was on Xarelto. I think the risk is higher they could have a bad complication then the benefit of putting him on a blood thinner with a below the knee DVT that may be new versus chronic. I discussed this with his primary care physician Dr. Shrestha she has an appointment to see him in several weeks and will follow him up at that time. We are not going to start him on any blood thinners at this time Discharge Plan Triage Chief Complaint: Lower Extremity Injury ED Provider: Mehul Talley Dx/Rx/DC Orders Clinical Impression: Left leg DVT, History of intracranial hemorrhage, History of GI bleed, History of diabetes mellitus Instructions: ED Deep Vein Thrombosis (DVT) Prescriptions: No Action pramipexole [Mirapex] 1 mg tablet 2 mg PO QHS RF: 0 (DME) blood pressure monitor Kit See Rx Instructions .ROUTE .MEDSUPPLY Qty: 1 RF: 0 Farxiga 10 mg tablet 10 mg PO QAM Qty: 60 RF: 1 meclizine 25 mg tablet 25 mg PO 4X/DAY PRN PRN (Reason: Dizziness) Qty: 120 RF: 0 olmesartan 20 mg tablet 20 mg PO DAILY Qty: 30 RF: 1 Otezla 30 MG tablet 30 mg PO BID RF: 0 acetaminophen [Tylenol] 325 mg Tablet 650 mg PO Q4H PRN PRN (Reason: Pain 1-10 Or Fever) Qty: 0 RF: 0 docusate sodium [Stool Softener] 100 mg Capsule 100 mg PO BID RF: 0 ferrous sulfate 325 mg (65 mg iron) tablet 325 mg PO TUTH RF: 0 Fetzima 40 mg capsule,extended release 24 hr 40 mg PO DAILY RF: 0 finasteride 5 mg tablet 5 mg PO DAILY Qty: 90 RF: 3 simvastatin 20 mg tablet 20 mg PO QHS Qty: 90 RF: 3 (DME) blood sugar diagnostic Strip See Rx Instructions .ROUTE .MEDSUPPLY Qty: 100 RF: 0 metoprolol succinate 25 mg tablet extended release 24 hr 75 mg PO BID RF: 0 flecainide 100 mg tablet 100 mg PO Q12H Qty: 180 RF: 3 furosemide 20 mg tablet 20 mg PO BID Qty: 180 RF: 2 pantoprazole 40 mg tablet,delayed release (DR/EC) 40 mg PO DAILY Qty: 30 RF: 3 ergocalciferol (vitamin D2) 1,250 mcg (50,000 unit) capsule 50,000 unit PO QMONTH Qty: 12 RF: 0 dulaglutide 4.5 mg/0.5 mL pen injector 4.5 mg SC .COMPLEX 90 Days Qty: 2 RF: 2 amlodipine 10 mg tablet 10 mg PO DAILY Qty: 90 RF: 3 hydralazine 25 mg tablet 25 mg PO BID Qty: 180 RF: 3 Primary Care Provider: Tosha Shrestha Referrals: Tosha Shrestha MD [Primary Care Provider] - Keep Sanchez appointment Activity Restrictions/Additional Instructions: You have a blood clot in your left calf. This may be old and stable or it may be new. Because your history of the prior internal bleeding and the fall and a head bleed we are choosing not to put you on blood thinners at this time. The risk of the medication outweighs any potential benefit at this time. I discussed this with Dr. Pattenow-up with her with your appointment at the end of the month. Disposition Disposition: Home, Self Care
[2021-08-21 14:19] VITALS: BP 149/52; PULSE 76; RESP 15; O2SAT 98
== END 2021-08-21 14:28 | disposition home or self-care (01) ==
PROVIDERS: Emergency Provider Emergency Medicine; PCP Internal Medicine; Visit Provider Emergency Medicine
DX: I82.402 Acute embolism and thrombosis of unspecified deep veins of left lower extremity (principal); I25.10 Atherosclerotic heart disease of native coronary artery without angina pectoris; E66.9 Obesity, unspecified; G47.33 Obstructive sleep apnea (adult) (pediatric); Z87.891 Personal history of nicotine dependence
CPT/HCPCS: 93971; 99282

== ENCOUNTER 2021-09-24 11:48 | Outpatient (CLI) | payer MEDICARE, BC, SELFPAY ==
[2021-09-24 13:46] LABS: Absolute Neutrophil Count 4.6 X10^3/uL (2.0-7.7); Basophil# 0.05 X10^3/uL; Basophil% 0.7 % (0-1); Eosinophil# 0.21 X10^3/uL; Eosinophils% 2.9 % (0-5); Hematocrit 36.5 % (40-54); Hemoglobin 11.9 g/dL (13.0-16.5); Mean Corp Hgb Conc 32.6 g/dL (32-36); Mean Corpuscular Hgb 29.9 pg (27.0-32.0); Mean Corpuscular Volume 91.7 fL (80-94); Mean Platelet Vol. 9.6 fl (6.2-12.0); Monocyte# 0.56 X10^3/uL; Monocyte% 7.7 % (0-10); NRBC Flagged by Analyzer 0 % (0-5); Neutrophil # 4.56 X10^3/uL (2.7-7.7); Neutrophil % 62.2 % (47-70); Platelet Count 228 K/mm3 (150-450); RBC Distribution Width CV 12.7 % (11.6-14.6); RBC Distribution Width SD 42.3 fl (35.1-43.9); Red Blood Count 3.98 M/mm3 (4.6-6.2); White Blood Count 7.3 K/mm3 (4.4-11.0)
[2021-09-24 13:54] LABS: Protein, Urine (Random) 200.5 mg/dL (<11.9); Protein:Creat Ratio 2424 mg/g CRE (0-200)
[2021-09-24 14:23] LABS: ALB/GLOB Ratio 0.8 RATIO (0.9-2.4); AST(SGOT) 16 U/L (15-37); Alanine Aminotransfer ALT/SGPT 23 U/L (16-61); Albumin, Serum 3.1 g/dL (3.2-5.0); Alkaline Phosphatase 101 U/L (45-117); Anion Gap 5 (5-15); BUN 20 mg/dL (7-18); Calcium,Total 8.9 mg/dL (8.5-10.1); Chloride 102 mmol/L (98-107); Creatinine, Serum 1.33 mg/dL (0.70-1.30); EST Glomerular Filtration Rate 55 mL/min (>60); Est Glom Filt Rate - Afr Amer 66 mL/min (>60); Globulin 3.9 g/dL (2.2-4.2); Glucose 252 mg/dL (74-106); Phosphorus 2.4 mg/dL (2.5-4.9); Sodium Level 135 mmol/L (136-145)
== END 2021-09-24 23:59 | disposition home or self-care (01) ==
LOC: LAB 11:50
PROVIDERS: PCP Internal Medicine; Referring Provider Internal Medicine Nephrology; Visit Provider Internal Medicine Nephrology
DX: I12.9 Hypertensive chronic kidney disease with stage 1 through stage 4 chronic kidney disease, or unspecified chronic kidney disease (principal); L40.59 Other psoriatic arthropathy; E11.22 Type 2 diabetes mellitus with diabetic chronic kidney disease; N18.31 Chronic kidney disease, stage 3a; L40.8 Other psoriasis; M21.40 Flat foot [pes planus] (acquired), unspecified foot; K76.0 Fatty (change of) liver, not elsewhere classified; M17.0 Bilateral primary osteoarthritis of knee
CPT/HCPCS: 36415; 80053; 82570; 83970; 84100; 84156; 85025

== ENCOUNTER 2021-10-09 12:19 | Outpatient (CLI) | payer MEDICARE, BC, SELFPAY ==
[2021-10-09 13:36] LABS: Absolute Lymphocyte Count 2.21 X10^3/uL (0.83-4.51); Absolute Neutrophil Count 5.2 X10^3/uL (2.0-7.7); Basophil# 0.07 X10^3/uL; Basophil% 0.8 % (0-1); Eosinophil# 0.21 X10^3/uL; Eosinophils% 2.5 % (0-5); Erythrocyte Sedimentation Rate 34 mm/hr (0-20); Hematocrit 37.3 % (40-54); Hemoglobin 12.3 g/dL (13.0-16.5); Lymphocyte # 2.21 X10^3/ul (0.83-4.51); Lymphocyte % 26.1 % (19-41); Mean Platelet Vol. 9.1 fl (6.2-12.0); Monocyte# 0.72 X10^3/uL; Monocyte% 8.5 % (0-10); NRBC Flagged by Analyzer 0 % (0-5); Neutrophil # 5.21 X10^3/uL (2.7-7.7); Neutrophil % 61.4 % (47-70); Platelet Count 241 K/mm3 (150-450); RBC Distribution Width CV 12.8 % (11.6-14.6); RBC Distribution Width SD 42.5 fl (35.1-43.9); White Blood Count 8.5 K/mm3 (4.4-11.0)
[2021-10-09 13:44] LABS: Prothrombin Time (Protime)PT. 12.6 SECONDS (11.7-14.9)
[2021-10-09 14:02] LABS: ALB/GLOB Ratio 0.8 RATIO (0.9-2.4); AST(SGOT) 20 U/L (15-37); Alanine Aminotransfer ALT/SGPT 30 U/L (16-61); Albumin, Serum 3.3 g/dL (3.2-5.0); Alkaline Phosphatase 88 U/L (45-117); Anion Gap 8 (5-15); BUN 18 mg/dL (7-18); BUN/Creat Ratio 14.4 RATIO (10-20); Calcium,Total 8.9 mg/dL (8.5-10.1); Chloride 100 mmol/L (98-107); Creatinine, Serum 1.25 mg/dL (0.70-1.30); EST Glomerular Filtration Rate 59 mL/min (>60); Est Glom Filt Rate - Afr Amer 71 mL/min (>60); Ferritin 131 ng/mL (26-388); Globulin 4.1 g/dL (2.2-4.2); Glucose 192 mg/dL (74-106); Iron 75 ug/dL (65-175); Iron Binding Capacity,Total 320 ug/dL (250-450); PERCENT IRON SATURATION 23.4 % (15.0-55.0); Protein, Total 7.4 g/dL (6.4-8.2); Sodium Level 135 mmol/L (136-145)
== END 2021-10-09 23:59 | disposition home or self-care (01) ==
LOC: LAB 12:21
PROVIDERS: PCP Internal Medicine; Visit Provider Internal Medicine Gastroenterology
DX: D64.9 Anemia, unspecified (principal); I48.92 Unspecified atrial flutter; Z87.19 Personal history of other diseases of the digestive system
CPT/HCPCS: 36415; 80053; 82728; 82746; 83540; 83550; 85025; 85610; 85652

== ENCOUNTER 2021-10-12 12:18 | Outpatient (CLI) | payer MEDICARE, BC, SELFPAY ==
--- NOTE | 2021-10-12 12:24 | CT_ITS ---
STUDY: CT MAXILLOFACIAL SINUSES REASON FOR EXAM: Male, 81 years old. Sinusitis RADIATION DOSAGE (If Supplied By Facility): CTDIvol = ( 29.38 ) mGy, DLP = ( 598.88 ) mGycm TECHNIQUE: The patient was scanned in a multi detector CT scanner. High resolution axial imaging was performed without the administration of intravenous contrast material. Sagittal and coronal images were reconstructed. Individualized dose optimization techniques were used for this CT. COMPARISON: None. FINDINGS: FRONTAL SINUSES: Normal aeration, without mucosal inflammatory disease. ETHMOIDAL SINUSES: Normal aeration, without mucosal inflammatory disease. MAXILLARY SINUSES: Normal aeration, without mucosal inflammatory disease. SPHENOIDAL SINUSES: Normal aeration, without mucosal inflammatory disease. There is patency of the bilateral maxillary infundibuli with normal uncinate processes, ethmoid bullae, and hiatus semilunaris. Normal bilateral middle turbinates. Normal bilateral inferior turbinates. There is a left sided nasal septal deviation with a left sided nasal septal spur. There is patency of the bilateral nasal airways. The visualized osseous structures are normal. The visualized bilateral orbital contents are normal. CT/Sinus/Facial Bone IMPRESSION: Normal CT examination of the maxillofacial sinuses. Electronically Signed: Leo Fay MD at 14:20 EST ,
== END 2021-10-12 23:59 | disposition home or self-care (01) ==
LOC: CT 12:19
PROVIDERS: PCP Internal Medicine; Referring Provider Internal Medicine Gastroenterology; Visit Provider Internal Medicine Gastroenterology
DX: R42 Dizziness and giddiness (principal)
CPT/HCPCS: 70486

== ENCOUNTER 2021-11-09 12:06 | Outpatient (CLI) | payer MEDICARE, BC, SELFPAY ==
--- NOTE | 2021-11-09 12:08 | VDLE_ITS ---
Reason For Study: LLE SWELLING RIGHT LEFT CFV is compressible, spontaneous, phasic, GSV is normal. competent and demonstrates normal CFV is compressible, spontaneous, phasic, augmentation. competent, and demonstrates normal Procedure augmentation. This is a venous duplex using B-mode, color FV is compressible, spontaneous, phasic, flow and spectral Doppler. competent and demonstrates normal Exam performed in department. augmentation. A preliminary report was called and/or faxed POP V is compressible, spontaneous, phasic, to Dr. Shrestha @ [phone] @ 1:30 pm. competent and demonstrates normal augmentation. PTV is compressible. LT PerV is compressible. T/P Trunk is partially compressible. Gastrocnemius V is partially compressible. VL/Venous Duplex US, Unilateral Interpretation Summary Deep venous thrombosis left tibioperoneal trunk and gastrocnemius veins. Partia l compressibility is noted suggesting improvement from the previous examination of August 21, 2021 Patent and compressible left great saphenous vein Normal flow patterns right common femoral vein Ordering Physician: Tosha Shrestha Referring Physician: Tosha Shrestha Performed By: Maribel Quezada, LINDY, RVT
== END 2021-11-09 23:59 | disposition home or self-care (01) ==
LOC: CVS 12:06
PROVIDERS: PCP Internal Medicine; Referring Provider Internal Medicine; Visit Provider Internal Medicine
DX: R06.02 Shortness of breath (principal); I82.402 Acute embolism and thrombosis of unspecified deep veins of left lower extremity
CPT/HCPCS: 93971

== ENCOUNTER 2021-12-11 15:00 | Emergency (ER) | payer MEDICARE, BC, SELFPAY ==
[2021-12-11 15:01] VITALS: BP 146/52; PULSE 73; RESP 18; TEMP 36.6; O2SAT 97; BMI 33.9
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
--- NOTE | 2021-12-11 15:42 | EKG12_ITS ---
Test Reason : SUICIDAL Blood Pressure : / mmHG Vent. Rate : 072 BPM Atrial Rate : 072 BPM P-R Int : 244 ms QRS Dur : 108 ms QT Int : 452 ms P-R-T Axes : -03 043 068 degrees QTc Int : 494 ms Sinus rhythm with 1st degree A-V block Prolonged QT Abnormal ECG Confirmed by RIVKA DUNCAN, RAHUL ([id number]), offline editor NITZA ROJAS ([id number]) on 12/13/2021 9:04:00 AM Referred By: GIOVANA Confirmed By:RAHUL TINEO MD
[2021-12-11 15:52] LABS: Absolute Lymphocyte Count 1.45 X10^3/uL (0.83-4.51); Absolute Neutrophil Count 4.5 X10^3/uL (2.0-7.7); Basophil# 0.04 X10^3/uL; Basophil% 0.6 % (0-1); Eosinophil# 0.15 X10^3/uL; Eosinophils% 2.2 % (0-5); Hematocrit 36.3 % (40-54); Hemoglobin 12.5 g/dL (13.0-16.5); Lymphocyte # 1.45 X10^3/ul (0.83-4.51); Lymphocyte % 21.6 % (19-41); Mean Corp Hgb Conc 34.4 g/dL (32-36); Mean Corpuscular Hgb 31.4 pg (27.0-32.0); Mean Corpuscular Volume 91.2 fL (80-94); Mean Platelet Vol. 9.1 fl (6.2-12.0); Monocyte# 0.53 X10^3/uL; Monocyte% 7.9 % (0-10); NRBC Flagged by Analyzer 0 % (0-5); Neutrophil # 4.49 X10^3/uL (2.7-7.7); Platelet Count 223 K/mm3 (150-450); RBC Distribution Width CV 13.1 % (11.6-14.6); Red Blood Count 3.98 M/mm3 (4.6-6.2); White Blood Count 6.7 K/mm3 (4.4-11.0)
[2021-12-11 16:11] LABS: ALB/GLOB Ratio 0.9 RATIO (0.9-2.4); AST(SGOT) 19 U/L (15-37); Alanine Aminotransfer ALT/SGPT 47 U/L (16-61); Albumin, Serum 3.3 g/dL (3.2-5.0); Alkaline Phosphatase 87 U/L (45-117); Anion Gap 7 (5-15); BUN 37 mg/dL (7-18); BUN/Creat Ratio 24.7 RATIO (10-20); Chloride 105 mmol/L (98-107); EST Glomerular Filtration Rate 48 mL/min (>60); Est Glom Filt Rate - Afr Amer 58 mL/min (>60); Estimated Creatinine Clearance 41.67 ml/min; Globulin 3.8 g/dL (2.2-4.2); Glucose 303 mg/dL (74-106); Potassium 4.2 mmol/L (3.5-5.1); Protein, Total 7.1 g/dL (6.4-8.2); Sodium Level 137 mmol/L (136-145)
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
[2021-12-11 16:55] LABS: Alcohol, Blood (Medical)-Serum < 3.0 mg/dL
[2021-12-11 17:29] LABS: Bacteria 0 SEEN /hpf (None Seen); Mucous, Urine 0 SEEN /hpf (<or=2+); Red Blood Cells-Urine 0 SEEN /hpf (0-5); Squamous Epithelial Cells - UA 0 SEEN /hpf (0-5)
--- NOTE | 2021-12-11 17:29 | CM.ED ---
Social Work Telephone call to [facility]. Clinical information faxed. Roselyn reports to have open beds. This administrator social welfare openly disclosing with Roselyn patient reported sex addiction. Roselyn states we will take a look at referral and get back. Will continue to follow. Kevin ALARCON, ALVIN
[2021-12-11 17:31] LABS: Color, Urine Yellow (Yellow); Glucose, Dipstick Normal (Normal); Ketone-Dipstick Negative (Negative); Leukocyte Esterase-Dipstick 25 /ul (Negative); Nitrite-Dipstick Negative (Negative); Occult Blood-Urine Negative /ul (Negative); Protein-Dipstick 15 mg/dl (Negative); Specific Gravity, Urine 1.015 (1.002-1.030); Urine Bilirubin Dipstick Negative (Negative); Urine Clarity Sl. Cloudy (Clear); Urine Urobilinogen Normal (Normal); Urine pH 6.5 (5.0 - 8.0)
[2021-12-11 17:41] LABS: Amphetamine Urine VISTA NEGATIVE (<1000 ng/mL); Barbiturate Urine VISTA NEGATIVE (< 200 ng/mL); Benzodiazepine Urine VISTA NEGATIVE (< 200 ng/mL); Cocaine Urine VISTA NEGATIVE (< 300 ng/mL); Ecstacy Urine VISTA NEGATIVE (< 500 ng/mL); Methadone Urine VISTA NEGATIVE (< 300 ng/mL); PCP Urine VISTA NEGATIVE (< 25 ng/mL); THC Urine VISTA NEGATIVE (< 50 ng/mL); Vista UDS pH Range 4
[2021-12-11 18:00] VITALS: BP 136/60; PULSE 70; RESP 18; O2SAT 97
[2021-12-11 18:04] LABS: Transitional Epithelial - Ur 0-5 SEEN /hpf (0-5)
[2021-12-11 18:05] LABS: White Blood Cells 0-5 SEEN /hpf (0-5)
--- NOTE | 2021-12-11 18:20 | CM.ED ---
[facility] with multiple questions about case, Zo reports will continue to review and get back to you. Zo reports plan to reach out to patient spouse. This addiction social worker able to confirm spouse contact information. Will continue to follow. Kevin ALARCON, ALVIN
--- NOTE | 2021-12-11 18:43 | CM.ED ---
Social Work Telephone call to patient spouse, Coby. This social worker clinical updated Coby on plan for placement and patient currently pending acceptance at [facility] with plan for [facility] to reach out to Coby for more background information. Coby voiced understanding. Coby also voicing concerns for patient safety, he has never been suicidal before. Active support and listening provided. Will continue to follow. Kevin ALARCON, ALVIN
--- NOTE | 2021-12-11 19:19 | CM.ED ---
[facility] due to current population and [facility] history[facility] to have an open [facility] bed and request for clinical information to be faxed. Clinical information faxed. Telephone call to [facility], no answer in admissions. Telephone call to [facility], intake. [facility] reports to have open beds and to be able to review clinicals. Clinical information faxed. Will continue to follow. Kevin ALARCON, ALVIN
--- NOTE | 2021-12-11 19:43 | CM.ED ---
Social Work Telephone call to patient spouse, Coby. This psychiatric social worker updated Coby that patient was declined at [facility] and patient is now pending acceptance at [facility] and [facility]. Coby voiced understanding. Will continue to follow. Kevin Holden MSW, ALVIN
[2021-12-11 20:00] VITALS: BP 132/61; PULSE 70; RESP 16; O2SAT 97
--- NOTE | 2021-12-11 20:26 | CM.ED ---
Social Work Telephone call to [facility]. Admissions reports to have received referral and that patient is accepted by Dr. Zee to the [facility]-psych unit room #116A. Nurse to call report to [phone]. Telephone call to patient spouse, Coby. This delinquency prevention social worker updated Coby on above information. Telephone call to [facility]. This delinquency prevention social worker canceling referral. Medical team updated. PLAN: DERob ALARCON, ALVIN
[2021-12-11 21:09] VITALS: BP 140/58; PULSE 70; PULSE 71; RESP 14; O2SAT 96; O2SAT 97
== END 2021-12-11 21:22 ==
PROVIDERS: Emergency Provider Emergency Medicine; PCP Internal Medicine; Visit Provider Emergency Medicine
DX: F32.A Depression, unspecified (principal); I13.0 Hypertensive heart and chronic kidney disease with heart failure and stage 1 through stage 4 chronic kidney disease, or unspecified chronic kidney disease; I50.32 Chronic diastolic (congestive) heart failure; E11.42 Type 2 diabetes mellitus with diabetic polyneuropathy; E11.22 Type 2 diabetes mellitus with diabetic chronic kidney disease; Z79.4 Long term (current) use of insulin; N18.30 Chronic kidney disease, stage 3 unspecified; R45.851 Suicidal ideations; E78.5 Hyperlipidemia, unspecified; I25.10 Atherosclerotic heart disease of native coronary artery without angina pectoris; G47.33 Obstructive sleep apnea (adult) (pediatric); D63.8 Anemia in other chronic diseases classified elsewhere; K21.9 Gastro-esophageal reflux disease without esophagitis; Z79.899 Other long term (current) drug therapy
CPT/HCPCS: 36415; 80053; 80307; 81001; 82077; 85025; 87811; 93005; 99285

== ENCOUNTER 2022-01-27 10:56 | Emergency (ER) | payer MEDICARE, BC, SELFPAY ==
[2022-01-27 10:57] VITALS: BP 135/52; PULSE 63; RESP 17; TEMP 36.8; O2SAT 98; BMI 35.9
--- NOTE | 2022-01-27 11:15 | RAD_ITS ---
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 Lymphedema and bilateral rales TECHNIQUE: PA and lateral views of the chest. COMPARISON: 07/07/2021. FINDINGS: Mild hazy/early infiltrate in right lower lobe. Small right pleural effusion. There is borderline cardiomegaly. Normal mediastinum and lakhwinder. Normal visualized pulmonary arteries. Normal visualized aortic arch and descending thoracic aorta. Stable soft tissues and osseous structures. There is no demonstrated abnormality of the visualized soft tissue structures of the upper abdomen. RAD/Chest PA and Lateral IMPRESSION: Haziness/mild infiltrate in right lower lobe and small right pleural effusion. Electronically Signed: Dale Greene MD at 12:40 EDT ,
--- NOTE | 2022-01-27 11:15 | EKG12_ITS ---
Test Reason : AB P Blood Pressure : / mmHG Vent. Rate : 061 BPM Atrial Rate : 061 BPM P-R Int : 238 ms QRS Dur : 102 ms QT Int : 478 ms P-R-T Axes : -16 067 062 degrees QTc Int : 481 ms Sinus rhythm with 1st degree A-V block Prolonged QT Abnormal ECG Confirmed by JORDIN DUNCAN, SYBIL ([id number]), newspaper copy editor NITZA ROJAS ([id number]) on 01/28/2022 11:21:20 AM Referred By: Confirmed By:SYBIL BRENNER MD
[2022-01-27 11:36] LABS: Absolute Neutrophil Count 6.2 X10^3/uL (2.0-7.7); Basophil# 0.04 X10^3/uL; Basophil% 0.5 % (0-1); Eosinophils% 1.1 % (0-5); Hemoglobin 10.8 g/dL (13.0-16.5); Lymphocyte % 16.1 % (19-41); Mean Corp Hgb Conc 32.7 g/dL (32-36); Mean Corpuscular Hgb 30.9 pg (27.0-32.0); Mean Corpuscular Volume 94.6 fL (80-94); Mean Platelet Vol. 9.4 fl (6.2-12.0); Monocyte# 0.94 X10^3/uL; Monocyte% 10.8 % (0-10); NRBC Flagged by Analyzer 0 % (0-5); Neutrophil # 6.16 X10^3/uL (2.7-7.7); Neutrophil % 70.8 % (47-70); Platelet Count 206 K/mm3 (150-450); RBC Distribution Width CV 13.6 % (11.6-14.6); RBC Distribution Width SD 46.3 fl (35.1-43.9); Red Blood Count 3.49 M/mm3 (4.6-6.2); White Blood Count 8.7 K/mm3 (4.4-11.0)
[2022-01-27 11:58] LABS: BNP,B-Type NATRIURETIC PEPTIDE 436.8 pg/mL (0-100)
[2022-01-27 12:02] LABS: ALB/GLOB Ratio 0.8 RATIO (0.9-2.4); AST(SGOT) 41 U/L (15-37); Alanine Aminotransfer ALT/SGPT 109 U/L (16-61); Alkaline Phosphatase 117 U/L (45-117); Anion Gap 6 (5-15); BUN 24 mg/dL (7-18); BUN/Creat Ratio 18.9 RATIO (10-20); Calcium,Total 8.8 mg/dL (8.5-10.1); Chloride 109 mmol/L (98-107); Creatinine, Serum 1.27 mg/dL (0.70-1.30); EST Glomerular Filtration Rate 58 mL/min (>60); Est Glom Filt Rate - Afr Amer 70 mL/min (>60); Estimated Creatinine Clearance 49.22 ml/min; Glucose 136 mg/dL (74-106); Potassium 4.3 mmol/L (3.5-5.1); Sodium Level 138 mmol/L (136-145); Thyroid Stim Hormone (TSH) 0.73 uIU/mL (0.358-3.74); Troponin-I HS 15 pg/mL (3.0-78.0)
--- NOTE | 2022-01-27 12:14 | EDS_ITS ---
HPI History of Present Illness Chief Complaint: Abd Pain Detail of Chief Complaint: Numerous symptoms not limited to abdominal pain Informant: patient and spouse/S.O. Onset/Context/Timing Onset: Days (Present symptoms started on Friday. He also has chronic vertigo of unknown etiology) Context: Sudden Onset Timing: Continuous Quality: Difficulty standing, fatigue, cold intolerance, 10 pound weight gain Location: Vague and generalized Current Severity: Mild Maximum Severity: Moderate Worsened by: Standing Relieved by: Nothing Associated Symptoms Associated Symptoms: Documented in the narrative section of the chart Narrative Narrative: Patient is an 81-year-old male with multiple medical problems which include depression and anxiety, inappropriate thoughts with deviant sexual behavior, 10 pound weight gain with cold intolerance, discontinuation of his Lasix for unknown known/certain reasons. Who presents because he was unable to stand today to shave. Yesterday he had difficulty walking. He denied weakness on one side versus the other. His symptoms are generalized. There are nonfocal. He denies fever, chills or night sweats. He reports a 10 pound weight gain over the past month. He denies history of congestive heart failure. states his legs are more swollen than normal. He denies orthopnea. He denies double vision, blurred vision loss of vision. He is hard of hearing. He denies ringing in his ears. He denies drainage from his ears. He has chronic nasal congestion. There is no reported rhinorrhea or postnasal drainage. He denies sore throat. He denies cough or sputum production. He denies chest discomfort. He does endorse nausea without vomiting or diarrhea. Last bowel movement was this morning and normal for per patient. Frequency, urgency or hematuria. He denies paresthesia or anesthesia. He does endorse lightheadedness and has a history of lightheadedness. This may represent autonomic dysfunction due to his diabetes. Prior similar symptoms: Yes Recent Illness/Hospitalization: Yes (Recently saw psychiatrist because of abnormal sexual behavior.) [facility] Medical History (HFpEF) heart failure with preserved ejection fraction (12/12/20) Acute respiratory failure with hypoxia Anemia Anemia of chronic renal failure, stage 3 (moderate) Anxiety and depression Atherosclerotic heart disease of [place] coronary artery without angina pectoris Atrial flutter Back pain BMI 34.0-34.9,adult BPH (benign prostatic hyperplasia) BPPV (benign paroxysmal positional vertigo) Cardiac dysrhythmia Cardiology follow-up encounter De Quervain's tenosynovitis Depression Dermatitis Diabetes mellitus Diabetic kidney disease Dizziness DM type 2 with diabetic peripheral neuropathy DVT (deep venous thrombosis) Dyslipidemia Dysphagia Essential (primary) hypertension Fall Fracture of great toe Gastric reflux Health care maintenance History of echocardiogram History of edema History of GI bleed History of peptic ulcer History of renal calculi History of ulceration HLD (hyperlipidemia) Injury of head and neck Iron deficiency anemia Iron deficiency anemia due to chronic blood loss Kidney hematoma (12/08/20) Left knee pain Left leg DVT Loss of equilibrium Low iron Malaise Near syncope Orthostatic hypotension MACHELLE (obstructive sleep apnea) Pain of left lower extremity Paroxysmal atrial flutter Pneumonia Polypharmacy Prostate disease Psoriasis Renal calculi RLS (restless legs syndrome) Sex disorder Suicidal ideation SVT (supraventricular tachycardia) Urolithiasis Vertigo Walker as ambulation aid Wears glasses Home Medications finasteride 5 mg tablet 5 mg PO DAILY #90 tablet 11/03/18 [Rx Last Taken 08/05/21] Otezla 30 mg PO BID 11/22/20 [History Last Taken 08/05/21] acetaminophen [Tylenol] 650 mg PO Q4H PRN PRN #0 tab 12/15/20 [Rx Last Taken Unknown] blood sugar diagnostic #100 ea 01/04/21 [Rx Last Taken Unknown] blood pressure monitor #1 ea 03/13/21 [Rx Last Taken Unknown] Fetzima 40 mg PO DAILY 07/02/21 [History Last Taken 08/05/21] docusate sodium [Stool Softener] 100 mg PO BID 07/02/21 [History Last Taken 08/05/21] ferrous sulfate 325 mg PO TUTH 07/02/21 [History Last Taken 08/02/21] amlodipine 10 mg tablet 10 mg PO DAILY #90 tab 08/20/21 [Rx Last Taken Unknown] hydralazine 25 mg tablet 25 mg PO BID #180 tab 08/20/21 [Rx Last Taken Unknown] dulaglutide 4.5 mg/0.5 mL subcutaneous pen injector 4.5 mg SC .COMPLEX 90 Days #2 ml 09/12/21 [Rx Last Taken Unknown] furosemide 20 mg tablet 20 mg PO BID #180 tab 09/12/21 [Rx Last Taken Unknown] meclizine 25 mg tablet 25 mg PO BID PRN #120 tab 09/19/21 [Rx Last Taken Unknown] olmesartan 20 mg tablet 20 mg PO DAILY #90 tab 09/19/21 [Rx Last Taken Unknown] pantoprazole 40 mg tablet,delayed release 40 mg PO DAILY 90 Days #90 tab 10/09/21 [Rx Last Taken Unknown] lancets 30 gauge #200 ea 10/26/21 [Rx Last Taken Unknown] insulin glargine 100 unit/mL (3 mL) subcutaneous pen 30 unit SUBCUT QAM 90 Days #27 ml 12/10/21 [Rx Last Taken Unknown] pramipexole 1 mg tablet 2 mg PO QHS #180 tab 12/10/21 [Rx Last Taken Unknown] simvastatin 20 mg tablet 20 mg PO QHS #90 tablet 12/10/21 [Rx Last Taken Unknown] ergocalciferol (vitamin D2) 1,250 mcg (50,000 unit) capsule 50,000 unit PO QMONTH #12 cap 01/01/22 [Rx Last Taken Unknown] flecainide 100 mg tablet 100 mg PO Q12H #180 tablet 01/01/22 [Rx Last Taken Unknown] progesterone micronized 100 mg capsule 100 mg PO QAM #90 cap 01/16/22 [Rx Last Taken Unknown] sertraline 25 mg tablet 37.5 mg PO DAILY #60 tab 01/16/22 [Rx Last Taken Unknown] metoprolol succinate 25 mg tablet,extended release 24 hr 75 mg PO BID 90 Days #540 tab 01/22/22 [Rx Last Taken Unknown] pen needle, diabetic 31 gauge x 3/16 #100 ea 01/23/22 [Rx Last Taken Unknown] doxycycline monohydrate 100 mg PO BID #14 capsule 01/27/22 [Rx Last Taken Unknown] Allergy/AdvReac Type Severity Reaction Status Date / Time hydrocodone bitartrate AdvReac Severe Other Verified 01/27/22 10:56 [From Vicodin] hydroxyzine AdvReac Severe Other Verified 01/27/22 10:56 Family History Father Diabetes Hypertension Cancer Lung cancer Mother Hypertension CVA (cerebral vascular accident) Sister Diabetes Son Diabetes Surgical History History of cardioversion (2015) History of cataract surgery History of left heart catheterization (02/16/13) History of lithotripsy (11/2020) History of radiofrequency ablation procedure for cardiac arrhythmia (02/05/06) history of right knee cap fracture History of right knee surgery Status post laser lithotripsy of ureteral calculus Status post left foot surgery STENT PLACEMENT FOR KIDNEY STONE Social History Smoking Status: Never smoker how long ago did patient quit smokin second hand exposure: No alcohol intake: never substance use type: does not use caffeine: No what type of physical activity do you participate in: none seatbelt use: always do you feel safe at home: Yes ROS ROS ED Constitutional Constitutional ED: Denies chills, fever(s), subjective, sweats or weight loss Eyes Eyes: Denies blurry vision, change in vision or diplopia ENT ENT ED: Denies ear pain, rhinorrhea or sore throat Cardiovascular Cardiovascular: Denies chest pain, orthopnea, palpitations, paroxysmal nocturnal dyspnea or racing heartbeat Respiratory/Chest Respiratory/Chest: Denies cough, dyspnea, dyspnea on exertion, orthopnea or paroxysmal nocturnal dyspnea Gastrointestinal Gastrointestinal: Reports nausea; Denies abdominal pain, diarrhea, melena or vomiting Genitourinary Genitourinary ED: Denies dysuria, hematuria or urinary frequency Musculoskeletal Musculoskeletal: Denies arthralgias, myalgias or neck pain Integumentary Denies rash Neurologic Neurologic: Reports weakness; Denies headache(s) or paresthesias Psychiatric Psychiatric: Reports anxiety and depression; Denies suicidal thoughts Endocrine Endocrinology: Denies polydipsia, polyphagia or polyuria Hematologic/Lymphatic Hematologic/Lymphatic: Denies anemia, easy bleeding, easy bruising or lymphadenopathy Allergic/Immunologic Allergic/Immunologic ED: Denies urticaria EXAM Physical Exam Const Vital Signs: 01/27/22 10:57 01/27/22 12:49 Temperature 98.3 F Temperature Source Temporal Pulse Rate 63 62 Respiratory Rate 17 23 H Blood Pressure 135/52 H 146/59 H Blood Pressure Mean 79 88 Pulse Ox 98 92 Oxygen Delivery Method Room Air Room Air Positive well nourished, well developed and obese General Appearance ED: well developed, NAD, pallor and other Patient has a flat affect. Nutritional Appearance: obese HEENT Reports TM's clear and moist mucous membranes HEENT Narrative: Ears normal. Nares patent. Uvula midline. There is no gena oedema. There is no erythema or exudate of the posterior pharynx. Negative for trauma or tenderness Tympanic Membrane ED: Yes TM's clear Eyes PERRL and EOMs intact bilaterally General Eye ED: Negative for pale conjunctiva or scleral icterus Neck no lymphadenopathy, supple and no JVD Neck Narrative: Unable to determine if he has JVD because of body habitus. General: Negative for tenderness Resp normal respiratory effort and No clear to auscultation bilaterally Effort and Inspection: Negative for pain with movement Auscultation: rales bilateral base Cardio regular rate, regular rhythm, S1 normal heart sound, S2 normal heart sound and no murmurs GI normal to inspection, nondistended, normoactive bowel sounds, non-tender and non-distended Palpation: soft Back/Spine no CVA tenderness Thoracic Spine / Upper Back: Negative for thoracic spinal tenderness or paraspinal muscle tenderness Extremity Negative for normal to inspection Extremity Narrative: Patient with significant pitting edema of the feet and legs. General Extremety ED: Yes edema; Negative for tenderness General Extremity: edema Neuro oriented x3, CN's II-XII intact bilaterally and no sensory deficits noted Sensorium / Orientation: Negative for alert Motor Exam: strength 5/5 throughout Psych Mood & Affect: depressed Skin no rashes or lesions noted, no wounds and No skin turgor normal General Skin Exam: pallor; Negative for elasticity normal or jaundice MDM MDM MDM Narrative Medical decision making narrative: Per old records patient does have history of heart failure. Suspect his weight gain edema bilateral rales is due to heart failure because of noncompliance with diuretic. Will obtain chest x-ray to confirm and rule out other etiologies. CBC was obtained to assess white count differential and evaluate for anemia since he is pale even though his conjunctive are pink. BNP was ordered to confirm suspicion of heart failure. Troponin to rule out cardiac ischemia. Patient does appear to have an infiltrate right lower lobe. Curb 65 score is 1. Patient's low risk group for mortality and outpatient therapy is appropriate. Lab Data Attestation: I reviewed the patient's lab results. Lab results narrative: Patient has slightly worsening chronic anemia. Comprehensive metabolic panel is marked for creatinine of 1.27 which is baseline. His BUN to creatinine ratio is less than 20-1. BNP is elevated 436. Troponin is normal with greater than 48 hours of symptoms. TSH was obtained because of his cold intolerance and weight gain. TSH is normal. Labs: Laboratory Results - last 24 hr 01/27/22 01/27/22 01/27/22 11:23 11:23 11:23 WBC 8.7 RBC 3.49 L Hgb 10.8 L Hct 33.0 L MCV 94.6 H MCH 30.9 MCHC 32.7 RDW Std Deviation 46.3 H RDW Coeff of Flavio 13.6 Plt Count 206 MPV 9.4 Immature Gran % (Auto) 0.700 Neut % (Auto) 70.8 H Lymph % (Auto) 16.1 L [place] % (Auto) 10.8 H Eos % (Auto) 1.1 Baso % (Auto) 0.5 Absolute Neuts (auto) 6.2 Absolute Lymphs (auto) 1.40 Nucleated RBC % 0 Sodium 138 Potassium 4.3 Chloride 109 H Carbon Dioxide 23.0 Anion Gap 6 BUN 24 H Creatinine 1.27 Estim Creat Clear Calc 49.22 Est GFR (MDRD) Af Amer 70 Est GFR (MDRD) Non-Af 58 L BUN/Creatinine Ratio 18.9 Glucose 136 H Calcium 8.8 Total Bilirubin 0.70 AST 41 H ALT 109 H Alkaline Phosphatase 117 Troponin I High Sens 15 B-Natriuretic Peptide 436.8 H Total Protein 7.0 Albumin 3.0 L Globulin 4.0 Albumin/Globulin Ratio 0.8 L TSH 0.73 Radiography Chest X-Ray - ED: 2 View and Read by ED Physician (Chest x-ray was independently reviewed and interpreted by me for a small right pleural effusion. There appears to be an infiltrate of the right especially when looking at the lateral view. Cardiac silhouette and size normal. There is no cephalization or curly B-lines. Osseous structures are unre) Diagnostic Testing: Clinical Impression(s) from Imaging Studies Chest X-Ray 01/27/22 11:15 IMPRESSION: Haziness/mild infiltrate in right lower lobe and small right pleural effusion. Electronically Signed: Dale Greene MD at 12:40 EDT , EKG Initial EKG: Attestation: I personally reviewed and interpreted this EKG as follows: Interpretation: Sinus Rhythm (Sinus rhythm with a ventricular rate of 61 and first-degree heart block. [place] interval is 238 ms. QRS duration 102 ms. QT duration 478 ms, which is prolonged. [place] is normal. There is no acute ischemic changes noted.) Discharge Plan Triage Chief Complaint: Abd Pain ED Provider: Obed Ureña Dx/Rx/DC Orders Clinical Impression: Right lower lobe pneumonia, Diastolic heart failure, Pleural effusion on right, Generalized weakness, (HFpEF) heart failure with preserved ejection fraction Instructions: ED Heart Failure, Congestive (CHF), ED Pneumonia (Adult) Prescriptions: New doxycycline monohydrate 100 MG capsule 100 mg PO BID Qty: 14 RF: 0 No Action (DME) blood pressure monitor Kit See Rx Instructions .ROUTE .MEDSUPPLY Qty: 1 RF: 0 pantoprazole 40 mg tablet,delayed release (DR/EC) 40 mg PO DAILY 90 Days Qty: 90 RF: 3 (DME) lancets [OneTouch Delica Lancets] 30 gauge misc See Rx Instructions .ROUTE .MEDSUPPLY Qty: 200 RF: 3 Lantus Solostar U-100 Insulin 100 unit/mL (3 mL) insulin pen 30 unit subcut QAM 90 Days Qty: 27 RF: 1 simvastatin 20 mg tablet 20 mg PO QHS Qty: 90 RF: 3 pramipexole [Mirapex] 1 mg tablet 2 mg PO QHS Qty: 180 RF: 3 Otezla 30 MG tablet 30 mg PO BID RF: 0 acetaminophen [Tylenol] 325 mg Tablet 650 mg PO Q4H PRN PRN (Reason: Pain 1-10 Or Fever) Qty: 0 RF: 0 docusate sodium [Stool Softener] 100 mg Capsule 100 mg PO BID RF: 0 ferrous sulfate 325 mg (65 mg iron) tablet 325 mg PO TUTH RF: 0 Fetzima 40 mg capsule,extended release 24 hr 40 mg PO DAILY RF: 0 finasteride 5 mg tablet 5 mg PO DAILY Qty: 90 RF: 3 (DME) blood sugar diagnostic Strip See Rx Instructions .ROUTE .MEDSUPPLY Qty: 100 RF: 0 amlodipine 10 mg tablet 10 mg PO DAILY Qty: 90 RF: 3 hydralazine 25 mg tablet 25 mg PO BID Qty: 180 RF: 3 dulaglutide 4.5 mg/0.5 mL pen injector 4.5 mg SC .COMPLEX 90 Days Qty: 2 RF: 2 furosemide 20 mg tablet 20 mg PO BID Qty: 180 RF: 2 olmesartan 20 mg tablet 20 mg PO DAILY Qty: 90 RF: 1 meclizine 25 mg tablet 25 mg PO BID PRN (Reason: Dizziness) Qty: 120 RF: 0 ergocalciferol (vitamin D2) 1,250 mcg (50,000 unit) capsule 50,000 unit PO QMONTH Qty: 12 RF: 0 flecainide 100 mg tablet 100 mg PO Q12H Qty: 180 RF: 3 progesterone micronized 100 mg capsule 100 mg PO QAM Qty: 90 RF: 0 sertraline 25 mg tablet 37.5 mg PO DAILY Qty: 60 RF: 1 metoprolol succinate 25 mg tablet extended release 24 hr 75 mg PO BID 90 Days Qty: 540 RF: 3 (DME) pen needle, diabetic [BD Ultra-Fine Mini Pen Needle] 31 gauge x 3/16 needle See Rx Instructions .ROUTE .MEDSUPPLY Qty: 100 RF: 3 Primary Care Provider: Tosha Shrestha Referrals: Tosha Shrestha MD [Primary Care Provider] - 3-5 Days Activity Restrictions/Additional Instructions: 1. Resume taking your Lasix 2. Take antibiotics until gone Disposition Disposition: Home, Self Care
[2022-01-27] MEDS: Furosemide 40 MG/4 ML Vial IV (12:47)
[2022-01-27 12:49] VITALS: BP 146/59; PULSE 62; RESP 23; O2SAT 92
[2022-01-27] MEDS: Doxycycline 100 MG CAPSULE PO (13:11)
== END 2022-01-27 13:25 | disposition home or self-care (01) ==
PROVIDERS: Emergency Provider Emergency Medicine; PCP Internal Medicine; Visit Provider Emergency Medicine
DX: J18.9 Pneumonia, unspecified organism (principal); I50.32 Chronic diastolic (congestive) heart failure; J90 Pleural effusion, not elsewhere classified; R53.83 Other fatigue; I25.10 Atherosclerotic heart disease of native coronary artery without angina pectoris; G47.33 Obstructive sleep apnea (adult) (pediatric); E66.9 Obesity, unspecified; Z86.718 Personal history of other venous thrombosis and embolism
CPT/HCPCS: 71046; 80053; 83880; 84443; 84484; 85025; 93005; 96374; 99284; A4216; J1940

== ENCOUNTER 2022-01-30 09:41 | Emergency (ER) | payer MEDICARE, BC, SELFPAY ==
[2022-01-30 09:42] VITALS: BP 133/49; PULSE 62; RESP 20; TEMP 36.6; O2SAT 96; BMI 35.9
--- NOTE | 2022-01-30 10:14 | EKG12_ITS ---
Test Reason : DIZZINESS Blood Pressure : / mmHG Vent. Rate : 058 BPM Atrial Rate : 058 BPM P-R Int : 246 ms QRS Dur : 094 ms QT Int : 494 ms P-R-T Axes : -05 064 058 degrees QTc Int : 484 ms Sinus bradycardia with 1st degree A-V block Prolonged QT Abnormal ECG Confirmed by RIVKA DUNCAN, RAHUL ([id number]), editor sound NITZA ROJAS ([id number]) on 02/01/2022 9:08:41 AM Referred By: BENNIE Confirmed By:RAHUL TINEO MD
--- NOTE | 2022-01-30 10:14 | RAD_ITS ---
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 COMPARISON: Comparison is made with prior study 01/27/2022. FINDINGS: There is evidence of a mass congestion and CHF. Small right pleural effusion. There has been no change since prior study. There is mild cardiac enlargement. Normal mediastinum and lakhwinder. Normal visualized pulmonary arteries. Normal visualized aortic arch and descending thoracic aorta. There are diffuse degenerative changes of the visualized thoracic spine. Normal visualized ribs, clavicles, and shoulders. There is no demonstrated abnormality of the visualized soft tissue structures of the upper abdomen. RAD/Chest 1 View (Portable) IMPRESSION: Cardia megaly and CHF with blunting of the right costophrenic angle. There has been essentially no change. Electronically Signed: Leo Fay MD at 11:26 EDT ,
--- NOTE | 2022-01-30 10:16 | EDS_ITS ---
HPI History of Present Illness Chief Complaint: Weakness Informant: patient and spouse/S.O. Narrative Narrative: 81-year-old male with multiple medical problems presenting to the emergency room with dizziness. Patient tells me that he was in the emergency department on Friday was diagnosed with pneumonia congestive heart failure. He followed up with gastroenterology on Friday as his hemoglobin was down a couple points and is trying to get a capsule endoscopy scheduled. He states that yesterday he felt mildly dizzy but just weak so he sat around. Today he states he cannot turn his head or look down without getting very dizzy. He states his head is sp inning not the room. He denies any nausea. No headaches. No head trauma. In talking with him it does not sound like vertigo is a new thing for him. He has seen ENT and is even been to rehab at [facility]. He states he is tried meclizine in the past. He is now using a walker because he feels unbalanced most of the time. Today however the dizziness seems worse. [facility] Medical History (HFpEF) heart failure with preserved ejection fraction (12/12/20) Acute respiratory failure with hypoxia Anemia Anemia of chronic renal failure, stage 3 (moderate) Anxiety and depression Atherosclerotic heart disease of [place] coronary artery without angina pectoris Atrial flutter Back pain BMI 34.0-34.9,adult BPH (benign prostatic hyperplasia) BPPV (benign paroxysmal positional vertigo) Cardiac dysrhythmia Cardiology follow-up encounter De Quervain's tenosynovitis Depression Dermatitis Diabetes mellitus Diabetic kidney disease Dizziness DM type 2 with diabetic peripheral neuropathy DVT (deep venous thrombosis) Dyslipidemia Dysphagia Essential (primary) hypertension Fall Fracture of great toe Gastric reflux Health care maintenance History of echocardiogram History of edema History of GI bleed History of peptic ulcer History of renal calculi History of ulceration HLD (hyperlipidemia) Injury of head and neck Iron deficiency anemia Iron deficiency anemia due to chronic blood loss Kidney hematoma (12/08/20) Left knee pain Left leg DVT Loss of equilibrium Low iron Malaise Near syncope Orthostatic hypotension MACHELLE (obstructive sleep apnea) Pain of left lower extremity Paroxysmal atrial flutter Pneumonia Polypharmacy Prostate disease Psoriasis Renal calculi RLS (restless legs syndrome) Sex disorder Suicidal ideation SVT (supraventricular tachycardia) Urolithiasis Vertigo Walker as ambulation aid Wears glasses Home Medications finasteride 5 mg tablet 5 mg PO DAILY PROSTATE #90 tabs 11/03/18 [Rx Last Taken 08/05/21] apremilast 30 mg tablet (Otezla) 30 mg PO BID arthritis 11/22/20 [History Last Taken 08/05/21] acetaminophen 325 mg tablet (Tylenol) 650 mg PO Q4H PRN PRN Pain 1-10 Or Fever #0 tabs 12/15/20 [Rx Last Taken Unknown] blood sugar diagnostic #100 ea 01/04/21 [Rx Last Taken Unknown] blood pressure monitor #1 ea 03/13/21 [Rx Last Taken Unknown] docusate sodium 100 mg capsule (Stool Softener) 100 mg PO BID stool softner 07/02/21 [History Last Taken 08/05/21] ferrous sulfate 325 mg (65 mg iron) tablet 325 mg PO TUTH supplement 07/02/21 [History Last Taken 08/02/21] levomilnacipran 40 mg capsule,24 hr,extended release (Fetzima) 40 mg PO DAILY depression 07/02/21 [History Last Taken 08/05/21] amlodipine 10 mg tablet 10 mg PO DAILY #90 tabs 08/20/21 [Rx Last Taken Unknown] hydralazine 25 mg tablet 25 mg PO BID #180 tabs 08/20/21 [Rx Last Taken Unknown] dulaglutide 4.5 mg/0.5 mL subcutaneous pen injector 4.5 mg (0.5 mL) subcut .COMPLEX 3 months #2 mL 09/12/21 [Rx Last Taken Unknown] furosemide 20 mg tablet 20 mg PO BID #180 tabs 09/12/21 [Rx Last Taken Unknown] meclizine 25 mg tablet 25 mg PO BID PRN Dizziness #120 tabs 09/19/21 [Rx Last Taken Unknown] olmesartan 20 mg tablet 20 mg PO DAILY #90 tabs 09/19/21 [Rx Last Taken Unknown] pantoprazole 40 mg tablet,delayed release 40 mg PO DAILY 90 days #90 tabs 10/09/21 [Rx Last Taken Unknown] lancets 30 gauge (OneTouch Delica Lancets) #200 ea 10/26/21 [Rx Last Taken Unknown] pramipexole 1 mg tablet (Mirapex) 2 mg PO QHS RLS #180 tabs 12/10/21 [Rx Last Taken Unknown] simvastatin 20 mg tablet 20 mg PO QHS #90 tabs 12/10/21 [Rx Last Taken Unknown] ergocalciferol (vitamin D2) 1,250 mcg (50,000 unit) capsule 50,000 unit PO QMONTH #12 caps 01/01/22 [Rx Last Taken Unknown] flecainide 100 mg tablet 100 mg PO Q12H HEART RATE #180 tabs 01/01/22 [Rx Last Taken Unknown] progesterone micronized 100 mg capsule 100 mg PO QAM #90 caps 01/16/22 [Rx Last Taken Unknown] sertraline 25 mg tablet 37.5 mg PO DAILY #60 tabs 01/16/22 [Rx Last Taken Unknown] metoprolol succinate 25 mg tablet,extended release 24 hr 75 mg PO BID 90 days #540 tabs 01/22/22 [Rx Last Taken Unknown] pen needle, diabetic 31 gauge x 3/16 (BD Ultra-Fine Mini Pen Needle) #100 ea 01/23/22 [Rx Last Taken Unknown] doxycycline monohydrate 100 mg capsule 100 mg PO BID #14 CAPSULES 01/27/22 [Rx Last Taken Unknown] insulin glargine 100 unit/mL (3 mL) subcutaneous pen (Lantus Solostar U-100 Insulin) 30 unit (0.3 mL) subcut QAM 3 months #27 mL 01/28/22 [Rx Last Taken Unk nown] diazepam 5 mg tablet 5 mg PO Q8 PRN Vertigo #15 tabs 01/30/22 [Rx Last Taken Unknown] Allergy/AdvReac Type Severity Reaction Status Date / Time hydrocodone bitartrate AdvReac Severe Other Verified 01/30/22 10:47 [From Vicodin] hydroxyzine AdvReac Severe Other Verified 01/30/22 10:47 Family History Father Diabetes Hypertension Cancer Lung cancer Mother Hypertension CVA (cerebral vascular accident) Sister Diabetes Son Diabetes Surgical History History of cardioversion (2015) History of cataract surgery History of left heart catheterization (02/16/13) History of lithotripsy (11/2020) History of radiofrequency ablation procedure for cardiac arrhythmia (02/05/06) history of right knee cap fracture History of right knee surgery Status post laser lithotripsy of ureteral calculus Status post left foot surgery STENT PLACEMENT FOR KIDNEY STONE Social History Smoking Status: Never smoker how long ago did patient quit smokin second hand exposure: No alcohol intake: never substance use type: does not use caffeine: No what type of physical activity do you participate in: none seatbelt use: always do you feel safe at home: Yes ROS ROS ED ROS Narrative Generalized weakness Constitutional Constitutional ED: Denies chills or weight loss Eyes Eyes: Denies change in vision or diplopia ENT ENT ED: Denies ear pain, rhinorrhea or sore throat Cardiovascular Cardiovascular: Denies chest pain, orthopnea, palpitations or racing heartbeat Respiratory/Chest Respiratory/Chest: Denies cough, dyspnea or orthopnea Gastrointestinal Gastrointestinal: Denies abdominal pain, diarrhea, nausea or vomiting Genitourinary Genitourinary ED: Denies dysuria, hematuria or urinary frequency Musculoskeletal Musculoskeletal: Denies arthralgias or myalgias Integumentary Denies abscess or rash Neurologic Neurologic: Reports other Details: Dizziness ; Denies headache(s) or weakness Psychiatric Psychiatric: Denies anxiety, depression, suicidal ideation or suicidal thoughts Endocrine Endocrinology: Denies polydipsia, polyphagia or polyuria Allergic/Immunologic Allergic/Immunologic ED: Denies mouth swelling, tongue swelling or urticaria EXAM Physical Exam Const Vital Signs: 01/30/22 09:42 01/30/22 10:47 01/30/22 11:05 Temperature 97.9 F Temperature Source Temporal Pulse Rate 62 59 L Respiratory Rate 20 H 23 H Respiratory Effort Normal Non-Labored Respiratory Pattern Normal Blood Pressure 133/49 H 152/62 H Blood Pressure Mean 77 92 Pulse Ox 96 95 Oxygen Delivery Method Room Air Room Air Positive well nourished, well developed and obese General Appearance ED: well developed Nutritional Appearance: obese HEENT Reports normocephalic, head/scalp atraumatic and moist mucous membranes Eyes PERRL and EOMs intact bilaterally Neck no lymphadenopathy, supple and no JVD Resp normal respiratory effort and clear to auscultation bilaterally Cardio regular rate, regular rhythm and no murmurs GI normal to inspection, nondistended, normoactive bowel sounds and non-tender Palpation: soft Back/Spine no CVA tenderness and normal ROM Extremity normal to inspection General Extremety ED: Negative for edema General Extremity: Negative for edema Neuro oriented x3 and CN's II-XII intact bilaterally Neuro Narrative: Patient reports dizziness when looking down. I do not appreciate nystagmus. Positive [place] Sensorium / Orientation: alert Motor Exam: strength 5/5 throughout Psych mental status grossly normal Mood & Affect: Negative for depressed or tearful Skin no rashes or lesions noted and no wounds MDM MDM MDM Narrative Medical decision making narrative: Basic blood work was at baseline for him. Head CT is negative for acute. My interpretation of the chest x-ray is no acute process. Patient received a dose of Valium. He states that the dizziness is better if not resolved but better and seems more in line with his normal vertigo. I can write for some Valium at home. We will ambulate him and if he does well we can discharge him home. Lab Data Attestation: I reviewed the patient's lab results. Labs: Laboratory Results - last 24 hr 01/30/22 01/30/22 01/30/22 11:05 11:05 11:10 WBC 7.5 RBC 3.88 L Hgb 11.7 L Hct 36.7 L MCV 94.6 H MCH 30.2 MCHC 31.9 L RDW Std Deviation 46.5 H RDW Coeff of Flavio 13.3 Plt Count 265 MPV 9.2 Immature Gran % (Auto) 0.500 Neut % (Auto) 66.6 Lymph % (Auto) 23.0 [place] % (Auto) 6.7 Eos % (Auto) 2.7 Baso % (Auto) 0.5 Absolute Neuts (auto) 5.0 Absolute Lymphs (auto) 1.72 Nucleated RBC % 0 Sodium 140 Potassium 3.9 Chloride 107 Carbon Dioxide 25.0 Anion Gap 8 BUN 31 H Creatinine 1.43 H Estim Creat Clear Calc 43.71 Est GFR (MDRD) Af Amer 61 Est GFR (MDRD) Non-Af 50 L BUN/Creatinine Ratio 21.7 H Glucose 157 H Calcium 9.3 Total Bilirubin 0.30 AST 21 ALT 59 Alkaline Phosphatase 106 Troponin I High Sens 12 Total Protein 7.6 Albumin 3.1 L Globulin 4.5 H Albumin/Globulin Ratio 0.7 L Urine Color Straw Urine Clarity Sl. Cloudy Urine pH 6.0 Ur Specific [place] 1.010 Urine Protein 30 H Urine Glucose (UA) Normal Urine Ketones Negative Urine Occult Blood Negative Urine Nitrite Negative Urine Bilirubin Negative Urine Urobilinogen Normal Ur Leukocyte Esterase Negative Urine RBC 0 SEEN Urine WBC 0 SEEN Ur Squamous Epith Cells 0-5 SEEN Urine Bacteria 0 SEEN Urine Mucus 0 SEEN Radiography Diagnostic Testing: Clinical Impression(s) from Imaging Studies Chest X-Ray 01/30/22 10:14 IMPRESSION: Cardia megaly and CHF with blunting of the right costophrenic angle. There has been essentially no change. Electronically Signed: Leo Fay MD at 11:26 EDT , Brain CT 01/30/22 11:10 IMPRESSION: Chronic involutional changes of the brain. Skull hematoma overlying the right occipital bone. This is unchanged. Electronically Signed: Leo Fay MD at 12:34 EDT , EKG Initial EKG: Attestation: I personally reviewed and interpreted this EKG as follows: Comments: Sinus bradycardia with a first-degree AV block. Ventricular rate of 58 bpm Discharge Plan Triage Chief Complaint: Weakness ED Provider: Edward Oconnor Dx/Rx/DC Orders Clinical Impression: Vertigo Instructions: ED Vertigo, Unspecified Prescriptions: New diazepam [diazepam] 5 mg tablet 5 mg PO Q8 PRN (Reason: Vertigo) Qty: 15 0RF No Action (DME) blood pressure monitor Kit See Rx Instructions .ROUTE .MEDSUPPLY Qty: 1 0RF Rx Instructions: check blood pressure daily pantoprazole 40 mg tablet,delayed release (DR/EC) 40 mg PO DAILY 90 Days Qty: 90 3RF (DME) lancets [OneTouch Delica Lancets] 30 gauge misc See Rx Instructions .ROUTE .MEDSUPPLY Qty: 200 3RF Rx Instructions: check blood sugar tid for type 2 DM simvastatin 20 mg tablet 20 mg PO QHS Qty: 90 3RF pramipexole [Mirapex] 1 mg tablet 2 mg PO QHS Qty: 180 3RF Otezla 30 MG tablet 30 mg PO BID acetaminophen [Tylenol] 325 mg Tablet 650 mg PO Q4H PRN PRN (Reason: Pain 1-10 Or Fever) Qty: 0 0RF docusate sodium [Stool Softener] 100 mg Capsule 100 mg PO BID ferrous sulfate 325 mg (65 mg iron) tablet 325 mg PO TUTH Fetzima 40 mg capsule,extended release 24 hr 40 mg PO DAILY doxycycline monohydrate 100 MG capsule 100 mg PO BID Qty: 14 0RF finasteride 5 mg tablet 5 mg PO DAILY Qty: 90 3RF (DME) blood sugar diagnostic Strip See Rx Instructions .ROUTE .MEDSUPPLY Qty: 100 0RF Rx Instructions: One Touch Elena test strip, use to test blood sugar 3 times daily. Dx E11.42 amlodipine 10 mg tablet 10 mg PO DAILY Qty: 90 3RF hydralazine 25 mg tablet 25 mg PO BID Qty: 180 3RF dulaglutide 4.5 mg/0.5 mL pen injector 4.5 mg SC .COMPLEX 90 Days Qty: 2 2RF Rx Instructions: 4.5 mg subcut every friday furosemide 20 mg tablet 20 mg PO BID Qty: 180 2RF olmesartan 20 mg tablet 20 mg PO DAILY Qty: 90 1RF meclizine 25 mg tablet 25 mg PO BID PRN (Reason: Dizziness) Qty: 120 0RF ergocalciferol (vitamin D2) 1,250 mcg (50,000 unit) capsule 50,000 unit PO QMONTH Qty: 12 0RF flecainide 100 mg tablet 100 mg PO Q12H Qty: 180 3RF progesterone micronized 100 mg capsule 100 mg PO QAM Qty: 90 0RF sertraline 25 mg tablet 37.5 mg PO DAILY Qty: 60 1RF metoprolol succinate 25 mg tablet extended release 24 hr 75 mg PO BID 90 Days Qty: 540 3RF (DME) pen needle, diabetic [BD Ultra-Fine Mini Pen Needle] 31 gauge x 3/16 needle See Rx Instructions .ROUTE .MEDSUPPLY Qty: 100 3RF Rx Instructions: daily for type 2 dm Lantus Solostar U-100 Insulin 100 unit/mL (3 mL) insulin pen 30 unit subcut QAM 90 Days Qty: 27 2RF Primary Care Provider: Tosha Shrestha Referrals: Tosha Shrestha MD [Primary Care Provider] - [facility] appointment Disposition Disposition: Home, Self Care
[2022-01-30 11:05] VITALS: BP 152/62; PULSE 59; RESP 23; O2SAT 95
--- NOTE | 2022-01-30 11:10 | CT_ITS ---
STUDY: CT BRAIN WITHOUT CONTRAST REASON FOR EXAM: Male, 81 years old. Dizziness RADIATION DOSAGE (If Supplied By Facility): CTDIvol = ( 44.99 ) mGy, DLP = ( 846.73 ) mGycm TECHNIQUE: Transaxial CT imaging of the brain was performed without administration of intravenous contrast material. Individualized dose optimization techniques were used for this CT. COMPARISON: Comparison is made with prior study dated 08/05/2021. FINDINGS: Scalp hematoma overlying the right occipital bone. Normal calvarium. There is mild cerebral atrophy with widening of the extra-axial spaces and ventricular dilatation. Normal white matter tracts of the cerebral hemispheres. Normal basal ganglia and thalami. Normal brainstem. Normal cerebellum. There is no intracranial hemorrhage. There are no findings of an acute ischemic infarction. Atherosclerotic plaque formation of the vertebral arteries and cavernous portions of the internal carotid arteries bilaterally. Normal visualized paranasal sinuses. CT/Brain/Head without Contrast IMPRESSION: Chronic involutional changes of the brain. Skull hematoma overlying the right occipital bone. This is unchanged. Electronically Signed: Leo Fay MD at 12:34 EDT ,
[2022-01-30 11:16] LABS: Bacteria 0 SEEN /hpf (None Seen); Mucous, Urine 0 SEEN /hpf (<or=2+); Red Blood Cells-Urine 0 SEEN /hpf (0-5); White Blood Cells 0 SEEN /hpf (0-5)
[2022-01-30 11:17] LABS: Absolute Lymphocyte Count 1.72 X10^3/uL (0.83-4.51); Basophil# 0.04 X10^3/uL; Basophil% 0.5 % (0-1); Eosinophils% 2.7 % (0-5); Hematocrit 36.7 % (40-54); Hemoglobin 11.7 g/dL (13.0-16.5); Lymphocyte # 1.72 X10^3/ul (0.83-4.51); Mean Corp Hgb Conc 31.9 g/dL (32-36); Mean Corpuscular Hgb 30.2 pg (27.0-32.0); Mean Corpuscular Volume 94.6 fL (80-94); Mean Platelet Vol. 9.2 fl (6.2-12.0); Monocyte% 6.7 % (0-10); NRBC Flagged by Analyzer 0 % (0-5); Neutrophil # 4.98 X10^3/uL (2.7-7.7); Neutrophil % 66.6 % (47-70); Platelet Count 265 K/mm3 (150-450); RBC Distribution Width CV 13.3 % (11.6-14.6); RBC Distribution Width SD 46.5 fl (35.1-43.9); Red Blood Count 3.88 M/mm3 (4.6-6.2); White Blood Count 7.5 K/mm3 (4.4-11.0)
[2022-01-30 11:18] LABS: Color, Urine Straw (Yellow); Glucose, Dipstick Normal (Normal); Ketone-Dipstick Negative (Negative); Leukocyte Esterase-Dipstick Negative /ul (Negative); Nitrite-Dipstick Negative (Negative); Occult Blood-Urine Negative /ul (Negative); Protein-Dipstick 30 mg/dl (Negative); Urine Bilirubin Dipstick Negative (Negative); Urine Clarity Sl. Cloudy (Clear); Urine Urobilinogen Normal (Normal)
[2022-01-30 11:26] LABS: Squamous Epithelial Cells - UA 0-5 SEEN /hpf (0-5)
[2022-01-30 11:35] LABS: ALB/GLOB Ratio 0.7 RATIO (0.9-2.4); AST(SGOT) 21 U/L (15-37); Alanine Aminotransfer ALT/SGPT 59 U/L (16-61); Albumin, Serum 3.1 g/dL (3.2-5.0); Alkaline Phosphatase 106 U/L (45-117); Anion Gap 8 (5-15); BUN 31 mg/dL (7-18); BUN/Creat Ratio 21.7 RATIO (10-20); Calcium,Total 9.3 mg/dL (8.5-10.1); Chloride 107 mmol/L (98-107); Creatinine, Serum 1.43 mg/dL (0.70-1.30); EST Glomerular Filtration Rate 50 mL/min (>60); Est Glom Filt Rate - Afr Amer 61 mL/min (>60); Estimated Creatinine Clearance 43.71 ml/min; Globulin 4.5 g/dL (2.2-4.2); Glucose 157 mg/dL (74-106); Potassium 3.9 mmol/L (3.5-5.1); Protein, Total 7.6 g/dL (6.4-8.2); Sodium Level 140 mmol/L (136-145); Troponin-I HS 12 pg/mL (3.0-78.0)
[2022-01-30] MEDS: diazePAM 5 MG Tablet PO (12:19)
[2022-01-30 13:11] VITALS: BP 134/78; PULSE 78; RESP 14; O2SAT 98
== END 2022-01-30 13:52 | disposition home or self-care (01) ==
PROVIDERS: Emergency Provider Emergency Medicine; PCP Internal Medicine; Visit Provider Emergency Medicine
DX: R42 Dizziness and giddiness (principal); I25.10 Atherosclerotic heart disease of native coronary artery without angina pectoris; E66.9 Obesity, unspecified; G47.33 Obstructive sleep apnea (adult) (pediatric); Z86.718 Personal history of other venous thrombosis and embolism
CPT/HCPCS: 70450; 71045; 80053; 81001; 84484; 85025; 93005; 99285; A4216

== ENCOUNTER → 2022-02-22 | Outpatient (CLI) | payer MEDICARE, BC, SELFPAY ==
[2022-02-22 15:17] LABS: Anion Gap 4 (5-15); BUN 35 mg/dL (7-18); BUN/Creat Ratio 22.4 RATIO (10-20); Calcium,Total 8.9 mg/dL (8.5-10.1); Chloride 109 mmol/L (98-107); Creatinine, Serum 1.56 mg/dL (0.70-1.30); EST Glomerular Filtration Rate 45 mL/min (>60); Est Glom Filt Rate - Afr Amer 55 mL/min (>60); Glucose 150 mg/dL (74-106); Potassium 4.9 mmol/L (3.5-5.1); Sodium Level 139 mmol/L (136-145)
[2022-02-22 15:29] LABS: Hemoglobin A1c 6.8 % (3.8-5.6)
[2022-02-22 17:17] LABS: Microalbumin:Creatinine Ratio 548.2 mg/g CRE (<30 mg/g CRE)
== END | disposition home or self-care (01) ==
LOC: BIMLAB 14:13
PROVIDERS: PCP Internal Medicine; Referring Provider Internal Medicine; Visit Provider Internal Medicine
DX: E11.42 Type 2 diabetes mellitus with diabetic polyneuropathy (principal)
CPT/HCPCS: 36415; 80048; 82043; 82570; 83036

== ENCOUNTER 2022-03-17 23:45 | Emergency (ER) | payer MEDICARE, BC, SELFPAY ==
[2022-03-17 23:46] VITALS: BP 172/64; PULSE 73; RESP 22; TEMP 37.3; O2SAT 95; BMI 36.6
--- NOTE | 2022-03-18 00:15 | EX.ED.DYSGE1 ---
HPI History of Present Illness Chief Complaint: Cold Sx Informant: patient and spouse/S.O. Onset/Context/Timing Onset: Yesterday Context: Gradual Onset Timing: Continuous Quality: malaise, headache, chills Current Severity: Moderate Maximum Severity: Moderate Worsened by: unk Relieved by: nothing Associated Symptoms Associated Symptoms: cough. no dyspnea. no GI sx. Associated Symptoms ED: cough Narrative Narrative: Daughter recent with COVID, he and have had contact with her to a significant degree. Now he is presenting with congestion, fevers, chills, headache, myalgias, malaise as well as cough and sneezing. [facility] Medical History (Updated 03/18/22 @ 01:[address] Mehran Fay MD) (HFpEF) heart failure with preserved ejection fraction (12/12/20) Acute respiratory failure with hypoxia Anemia Anemia of chronic renal failure, stage 3 (moderate) Anxiety and depression Atherosclerotic heart disease of [place] coronary artery without angina pectoris Atrial flutter Back pain BMI 34.0-34.9,adult BPH (benign prostatic hyperplasia) BPPV (benign paroxysmal positional vertigo) Cardiac dysrhythmia Cardiology follow-up encounter De Quervain's tenosynovitis Depression Dermatitis Diabetes mellitus Diabetic kidney disease Dizziness DM type 2 with diabetic peripheral neuropathy DVT (deep venous thrombosis) Dyslipidemia Dysphagia Essential (primary) hypertension Fall Fracture of great toe Gastric reflux Health care maintenance History of echocardiogram History of edema History of GI bleed History of peptic ulcer History of renal calculi History of ulceration HLD (hyperlipidemia) Injury of head and neck Iron deficiency anemia Iron deficiency anemia due to chronic blood loss Kidney hematoma (12/08/20) Left knee pain Left leg DVT Loss of equilibrium Low iron Malaise Near syncope Orthostatic hypotension MACHELLE (obstructive sleep apnea) Pain of left lower extremity Paroxysmal atrial flutter Pneumonia Polypharmacy Prostate disease Psoriasis Renal calculi RLS (restless legs syndrome) Sex disorder Suicidal ideation SVT (supraventricular tachycardia) Urolithiasis Vertigo Walker as ambulation aid Wears glasses Home Medications finasteride 5 mg tablet 5 mg PO DAILY PROSTATE #90 tabs 11/03/18 [Rx Last Taken 08/05/21] apremilast 30 mg tablet (Otezla) 30 mg PO BID arthritis 11/22/20 [History Last Taken 08/05/21] acetaminophen 325 mg tablet (Tylenol) 650 mg PO Q4H PRN PRN Pain 1-10 Or Fever #0 tabs 12/15/20 [Rx Last Taken Unknown] blood sugar diagnostic #100 ea 01/04/21 [Rx Last Taken Unknown] blood pressure monitor #1 ea 03/13/21 [Rx Last Taken Unknown] amlodipine 10 mg tablet 10 mg PO DAILY #90 tabs 08/20/21 [Rx Last Taken Unknown] hydralazine 25 mg tablet 25 mg PO BID #180 tabs 08/20/21 [Rx Last Taken Unknown] dulaglutide 4.5 mg/0.5 mL subcutaneous pen injector 4.5 mg (0.5 mL) subcut .COMPLEX 3 months #2 mL 09/12/21 [Rx Last Taken Unknown] olmesartan 20 mg tablet 20 mg PO DAILY #90 tabs 09/19/21 [Rx Last Taken Unknown] pantoprazole 40 mg tablet,delayed release 40 mg PO DAILY 90 days #90 tabs 10/09/21 [Rx Last Taken Unknown] lancets 30 gauge (OneTouch Delica Lancets) #200 ea 10/26/21 [Rx Last Taken Unknown] pramipexole 1 mg tablet (Mirapex) 2 mg PO QHS RLS #180 tabs 12/10/21 [Rx Last Taken Unknown] simvastatin 20 mg tablet 20 mg PO QHS #90 tabs 12/10/21 [Rx Last Taken Unknown] ergocalciferol (vitamin D2) 1,250 mcg (50,000 unit) capsule 50,000 unit PO QMONTH #12 caps 01/01/22 [Rx Last Taken Unknown] flecainide 100 mg tablet 100 mg PO Q12H HEART RATE #180 tabs 01/01/22 [Rx Last Taken Unknown] progesterone micronized 100 mg capsule 100 mg PO QAM #90 caps 01/16/22 [Rx Last Taken Unknown] pen needle, diabetic 31 gauge x 3/16 (BD Ultra-Fine Mini Pen Needle) #100 ea 01/23/22 [Rx Last Taken Unknown] diazepam 5 mg tablet 5 mg PO Q8 PRN Vertigo #15 tabs 01/30/22 [Rx Last Taken Unknown] insulin glargine 100 unit/mL (3 mL) subcutaneous pen (Lantus Solostar U-100 Insulin) 30 unit (0.3 mL) subcut QAM 3 months #27 mL 02/05/22 [Rx Last Taken Unknown] docusate sodium 100 mg capsule (Stool Softener) 100 mg PO DAILY stool softner 02/12/22 [History Last Taken Unknown] ferrous sulfate 325 mg (65 mg iron) tablet 325 mg PO Q OTHER DAY supplement 02/12/22 [History Last Taken Unknown] furosemide 20 mg tablet 40 mg PO BID #180 tabs 02/12/22 [Rx Last Taken Unknown] metoprolol succinate 25 mg tablet,extended release 24 hr 50 mg PO BID 90 days #180 tabs 02/12/22 [Rx Last Taken Unknown] sertraline 25 mg tablet 75 mg PO DAILY 02/12/22 [History Last Taken Unknown] molnupiravir 200 mg capsule (EUA) 800 mg PO Q12H 5 days #40 caps 03/18/22 [Rx Last Taken Unknown] Allergy/AdvReac Type Severity Reaction Status Date / Time hydrocodone bitartrate AdvReac Severe Other Verified 03/17/22 23:50 [From Vicodin] hydroxyzine AdvReac Severe Other Verified 03/17/22 23:50 Family History Father Diabetes Hypertension Cancer Lung cancer Mother Hypertension CVA (cerebral vascular accident) Sister Diabetes Son Diabetes Surgical History History of cardioversion (2015) History of cataract surgery History of left heart catheterization (02/16/13) History of lithotripsy (11/2020) History of radiofrequency ablation procedure for cardiac arrhythmia (02/05/06) history of right knee cap fracture History of right knee surgery Status post laser lithotripsy of ureteral calculus Status post left foot surgery STENT PLACEMENT FOR KIDNEY STONE Social History Smoking Status: Never smoker how long ago did patient quit smokin second hand exposure: No alcohol intake: never substance use type: does not use caffeine: No what type of physical activity do you participate in: none seatbelt use: always do you feel safe at home: Yes ROS ROS ED Constitutional Constitutional ED: Reports body ache(s), chills, fatigue, fever(s), headache(s) and malaise Eyes Eyes: Denies change in vision or diplopia ENT ENT ED: Reports nasal congestion, rhinorrhea and vertigo; Denies ear pain, sinus pressure, sore throat or tinnitus Cardiovascular Cardiovascular: Denies chest pain or palpitations Respiratory/Chest Respiratory/Chest: Reports cough; Denies dyspnea or sputum Gastrointestinal Gastrointestinal: Denies abdominal pain, diarrhea, nausea or vomiting Genitourinary Genitourinary ED: Denies dysuria or hematuria Musculoskeletal Musculoskeletal: Reports back pain and myalgias; Denies neck pain Integumentary Denies abscess or rash Neurologic Neurologic: Reports headache(s); Denies paresthesias or weakness Psychiatric Psychiatric: Denies anxiety or suicidal thoughts EXAM Physical Exam Const Vital Signs: 03/17/22 23:46 03/17/22 23:48 Temperature 99.1 F Temperature Source Oral Pulse Rate 73 Respiratory Rate 22 H Respiratory Effort Normal Respiratory Pattern Normal Blood Pressure 172/64 H Blood Pressure Mean 100 Pulse Ox 95 Oxygen Delivery Method Room Air Positive well nourished, well developed and obese Constitutional Narrative: Well-appearing, no distress General Appearance ED: well developed and NAD Nutritional Appearance: obese HEENT Reports moist mucous membranes normocephalic and atraumatic Eyes PERRL and EOMs intact bilaterally Neck full ROM, no lymphadenopathy, supple and no JVD Chest Wall inspection of chest normal and palpation of chest normal Resp normal respiratory effort and clear to auscultation bilaterally Effort and Inspection: able to speak in complete sentences Cardio regular rate, regular rhythm and no murmurs Rate: Negative for tachycardic GI non-tender and non-distended Auscultation: normoactive bowel sounds Palpation: soft Back/Spine no CVA tenderness General Back: other FROM Extremity normal to inspection and no calf tenderness General Extremety ED: Yes edema; Negative for pulses abnormal or tenderness General Extremity: edema bilateral lower extremity Details: moderate (baseline per pt); Negative for pulses abnormal Neuro oriented x3, CN's II-XII intact bilaterally and no sensory deficits noted Sensorium / Orientation: awake and alert Motor Exam: strength 5/5 throughout Skin no rashes or lesions noted and no wounds MDM MDM MDM Narrative Medical decision making narrative: COVID swab is positive confirming COVID-19 in this patient with very suspicious symptoms. His oxygenation is excellent and his vital signs are otherwise stable. He was given Tylenol for his low-grade fever and symptoms/pain/headache. Stable for discharge home, he is on flecainide so he is not a candidate for PAxlovid. He has plenty of risk factors for possible worsening although that is less likely during the omicron variant that we have now, I will prescribe him Molnupiravir. Discharge Plan Triage Chief Complaint: Cold Sx ED Provider: Mehran Fay Dx/Rx/DC Orders Clinical Impression: COVID-19 Instructions: Coronavirus Disease 2019 (COVID-19): Caring for Yourself or Others Prescriptions: New molnupiravir 200 mg capsule 800 mg PO Q12H 5 Days Qty: 40 0RF No Action (DME) blood pressure monitor Kit See Rx Instructions .ROUTE .MEDSUPPLY Qty: 1 0RF Rx Instructions: check blood pressure daily sertraline 25 mg tablet 75 mg PO DAILY metoprolol succinate 25 mg tablet extended release 24 hr 50 mg PO BID 90 Days Qty: 180 3RF furosemide 20 mg tablet 40 mg PO BID Qty: 180 2RF Rx Instructions: 40mg PO BID x2 days followed by Lasix 40mg PO Daily in the AM pantoprazole 40 mg tablet,delayed release (DR/EC) 40 mg PO DAILY 90 Days Qty: 90 3RF (DME) lancets [OneTouch Delica Lancets] 30 gauge misc See Rx Instructions .ROUTE .MEDSUPPLY Qty: 200 3RF Rx Instructions: check blood sugar tid for type 2 DM simvastatin 20 mg tablet 20 mg PO QHS Qty: 90 3RF pramipexole [Mirapex] 1 mg tablet 2 mg PO QHS Qty: 180 3RF Otezla 30 MG tablet 30 mg PO BID acetaminophen [Tylenol] 325 mg Tablet 650 mg PO Q4H PRN PRN (Reason: Pain 1-10 Or Fever) Qty: 0 0RF ferrous sulfate 325 mg (65 mg iron) tablet 325 mg PO Q OTHER DAY docusate sodium [Stool Softener] 100 mg capsule 100 mg PO DAILY diazepam [diazepam] 5 mg tablet 5 mg PO Q8 PRN (Reason: Vertigo) Qty: 15 0RF finasteride 5 mg tablet 5 mg PO DAILY Qty: 90 3RF (DME) blood sugar diagnostic Strip See Rx Instructions .ROUTE .MEDSUPPLY Qty: 100 0RF Rx Instructions: One Touch Elena test strip, use to test blood sugar 3 times daily. Dx E11.42 amlodipine 10 mg tablet 10 mg PO DAILY Qty: 90 3RF hydralazine 25 mg tablet 25 mg PO BID Qty: 180 3RF dulaglutide 4.5 mg/0.5 mL pen injector 4.5 mg SC .COMPLEX 90 Days Qty: 2 2RF Rx Instructions: 4.5 mg subcut every friday olmesartan 20 mg tablet 20 mg PO DAILY Qty: 90 1RF ergocalciferol (vitamin D2) 1,250 mcg (50,000 unit) capsule 50,000 unit PO QMONTH Qty: 12 0RF flecainide 100 mg tablet 100 mg PO Q12H Qty: 180 3RF progesterone micronized 100 mg capsule 100 mg PO QAM Qty: 90 0RF (DME) pen needle, diabetic [BD Ultra-Fine Mini Pen Needle] 31 gauge x 3/16 needle See Rx Instructions .ROUTE .MEDSUPPLY Qty: 100 3RF Rx Instructions: daily for type 2 dm Lantus Solostar U-100 Insulin 100 unit/mL (3 mL) insulin pen 30 unit subcut QAM 90 Days Qty: 27 2RF Primary Care Provider: Tosha Shrestha Referrals: Tosha Shrestha MD [Primary Care Provider] - 1 Week if not improving Activity Restrictions/Additional Instructions: Try to get a home portable pulse oximeter and closely watch your oxygen levels periodically. If you stay below 90% for more than a minute or so, and/or you are feeling like your breathing is getting worse, return to the emergency department for further evaluation. Currently, CDC recommendations state that you should stay home through day 5 of symptoms, then as long as symptoms are improving, if you need to go to work or somewhere else you may for days 6-10 as long as you are wearing a tight fitting N95 mask the entire time. If you are feeling better after day 10 you may resume life is normal. Disposition Disposition: Home, Self Care
[2022-03-18] MEDS: Acetaminophen 500 MG Tablet 1000 MG PO (00:20)
[2022-03-18 01:23] VITALS: BP 170/63; PULSE 72; RESP 18; O2SAT 96
== END 2022-03-18 01:24 | disposition home or self-care (01) ==
PROVIDERS: Emergency Provider Emergency Medicine; PCP Internal Medicine; Visit Provider Emergency Medicine
DX: U07.1 COVID-19 (principal); I25.10 Atherosclerotic heart disease of native coronary artery without angina pectoris; G47.33 Obstructive sleep apnea (adult) (pediatric); E66.9 Obesity, unspecified; Z86.718 Personal history of other venous thrombosis and embolism
CPT/HCPCS: 87811; 99282

== ENCOUNTER 2022-03-27 21:42 | Observation (INO) | payer MEDICARE, BC, SELFPAY ==
[2022-03-27 21:43] VITALS: BP 159/57; PULSE 68; RESP 24; TEMP 37.4; O2SAT 96; BMI 36.8
--- NOTE | 2022-03-27 22:00 | EX.ED.DYSGE1 ---
HPI History of Present Illness Chief Complaint: Diarrhea Informant: patient Onset/Context/Timing Onset: Today Narrative Narrative: Patient reports getting up early this morning with diarrhea and has been having frequent episodes throughout the day. Tonight he tried to get up out of bed to go the restroom and was too weak to stand. Patient was diagnosed with COVID on 17 March. He took a course of molnupiravir. He has not been on any recent antibiotics. [facility] Medical History (HFpEF) heart failure with preserved ejection fraction (12/12/20) Acute respiratory failure with hypoxia Anemia Anemia of chronic renal failure, stage 3 (moderate) Anxiety and depression Atherosclerotic heart disease of [place] coronary artery without angina pectoris Atrial flutter Back pain BMI 34.0-34.9,adult BPH (benign prostatic hyperplasia) BPPV (benign paroxysmal positional vertigo) Cardiac dysrhythmia Cardiology follow-up encounter De Quervain's tenosynovitis Depression Dermatitis Diabetes mellitus Diabetic kidney disease Dizziness DM type 2 with diabetic peripheral neuropathy DVT (deep venous thrombosis) Dyslipidemia Dysphagia Essential (primary) hypertension Fall Fracture of great toe Gastric reflux Health care maintenance History of echocardiogram History of edema History of GI bleed History of peptic ulcer History of renal calculi History of ulceration HLD (hyperlipidemia) Injury of head and neck Iron deficiency anemia Iron deficiency anemia due to chronic blood loss Kidney hematoma (12/08/20) Left knee pain Left leg DVT Loss of equilibrium Low iron Malaise Near syncope Orthostatic hypotension MACHELLE (obstructive sleep apnea) Pain of left lower extremity Paroxysmal atrial flutter Pneumonia Polypharmacy Prostate disease Psoriasis Renal calculi RLS (restless legs syndrome) Sex disorder Suicidal ideation SVT (supraventricular tachycardia) Urolithiasis Vertigo Walker as ambulation aid Wears glasses Home Medications finasteride 5 mg tablet 5 mg PO DAILY PROSTATE #90 tabs 11/03/18 [Rx Last Taken 08/05/21] apremilast 30 mg tablet (Otezla) 30 mg PO BID arthritis 11/22/20 [History Last Taken 08/05/21] acetaminophen 325 mg tablet (Tylenol) 650 mg PO Q4H PRN PRN Pain 1-10 Or Fever #0 tabs 12/15/20 [Rx Last Taken Unknown] blood sugar diagnostic #100 ea 01/04/21 [Rx Last Taken Unknown] blood pressure monitor #1 ea 03/13/21 [Rx Last Taken Unknown] amlodipine 10 mg tablet 10 mg PO DAILY #90 tabs 08/20/21 [Rx Last Taken Unknown] hydralazine 25 mg tablet 25 mg PO BID #180 tabs 08/20/21 [Rx Last Taken Unknown] dulaglutide 4.5 mg/0.5 mL subcutaneous pen injector 4.5 mg (0.5 mL) subcut .COMPLEX 3 months #2 mL 09/12/21 [Rx Last Taken Unknown] pantoprazole 40 mg tablet,delayed release 40 mg PO DAILY 90 days #90 tabs 10/09/21 [Rx Last Taken Unknown] lancets 30 gauge (Pluralsight Lancets) #200 ea 10/26/21 [Rx Last Taken Unknown] pramipexole 1 mg tablet (Mirapex) 2 mg PO QHS RLS #180 tabs 12/10/21 [Rx Last Taken Unknown] simvastatin 20 mg tablet 20 mg PO QHS #90 tabs 12/10/21 [Rx Last Taken Unknown] ergocalciferol (vitamin D2) 1,250 mcg (50,000 unit) capsule 50,000 unit PO QMONTH #12 caps 01/01/22 [Rx Last Taken Unknown] flecainide 100 mg tablet 100 mg PO Q12H HEART RATE #180 tabs 01/01/22 [Rx Last Taken Unknown] pen needle, diabetic 31 gauge x 3/16 (BD Ultra-Fine Mini Pen Needle) #100 ea 01/23/22 [Rx Last Taken Unknown] diazepam 5 mg tablet 5 mg PO Q8 PRN Vertigo #15 tabs 01/30/22 [Rx Last Taken Unknown] insulin glargine 100 unit/mL (3 mL) subcutaneous pen (Lantus Solostar U-100 Insulin) 30 unit (0.3 mL) subcut QAM 3 months #27 mL 02/05/22 [Rx Last Taken Unknown] docusate sodium 100 mg capsule (Stool Softener) 100 mg PO DAILY stool softner 02/12/22 [History Last Taken Unknown] ferrous sulfate 325 mg (65 mg iron) tablet 325 mg PO Q OTHER DAY supplement 02/12/22 [History Last Taken Unknown] furosemide 20 mg tablet 40 mg PO BID #180 tabs 02/12/22 [Rx Last Taken Unknown] metoprolol succinate 25 mg tablet,extended release 24 hr 50 mg PO BID 90 days #180 tabs 02/12/22 [Rx Last Taken Unknown] sertraline 25 mg tablet 75 mg PO DAILY 02/12/22 [History Last Taken Unknown] molnupiravir 200 mg capsule (EUA) 800 mg PO Q12H 5 days #40 caps 03/18/22 [Rx Last Taken Unknown] olmesartan 20 mg tablet 20 mg PO DAILY #90 tabs 03/18/22 [Rx Last Taken Unknown] progesterone micronized 100 mg capsule 100 mg PO QAM #90 caps 03/18/22 [Rx Last Taken Unknown] diazepam 5 mg tablet mg 03/27/22 [History Last Taken Unknown] Allergy/AdvReac Type Severity Reaction Status Date / Time hydrocodone bitartrate AdvReac Severe Other Verified 03/27/22 21:51 [From Vicodin] hydroxyzine AdvReac Severe Other Verified 03/27/22 21:51 Family History Father Diabetes Hypertension Cancer Lung cancer Mother Hypertension CVA (cerebral vascular accident) Sister Diabetes Son Diabetes Surgical History History of cardioversion (2015) History of cataract surgery History of left heart catheterization (02/16/13) History of lithotripsy (11/2020) History of radiofrequency ablation procedure for cardiac arrhythmia (02/05/06) history of right knee cap fracture History of right knee surgery Status post laser lithotripsy of ureteral calculus Status post left foot surgery STENT PLACEMENT FOR KIDNEY STONE Social History Smoking Status: Never smoker how long ago did patient quit smokin second hand exposure: No alcohol intake: never substance use type: does not use caffeine: No what type of physical activity do you participate in: none seatbelt use: always do you feel safe at home: Yes ROS ROS ED Constitutional Constitutional ED: Reports chills; Denies fever(s) Eyes Eyes: Denies change in vision or discharge from eye(s) ENT ENT ED: Denies discharge from eye(s), rhinorrhea or sore throat Cardiovascular Cardiovascular: Denies chest pain or palpitations Respiratory/Chest Respiratory/Chest: Reports other Details: Cough with recent COVID, now resolved. ; Denies dyspnea Gastrointestinal Gastrointestinal: Reports diarrhea; Denies abdominal pain, nausea or vomiting Genitourinary Genitourinary ED: Denies difficulty urinating or dysuria Musculoskeletal Musculoskeletal: Denies back pain or extremity pain Integumentary Denies Abrasions or rash Neurologic Neurologic: Reports weakness; Denies headache(s) Allergic/Immunologic Allergic/Immunologic ED: Denies lip swelling or urticaria EXAM Physical Exam Const Vital Signs: 03/27/22 21:43 03/27/22 23:01 Temperature 99.3 F H Temperature Source Oral Pulse Rate 68 71 Respiratory Rate 24 H 17 Blood Pressure 159/57 H 156/55 H Blood Pressure Mean 91 88 Pulse Ox 96 95 Oxygen Delivery Method Room Air Room Air Positive well nourished and well developed General Appearance ED: well developed HEENT Reports normocephalic and head/scalp atraumatic Eyes PERRL and EOMs intact bilaterally Neck supple Chest Wall inspection of chest normal and palpation of chest normal Resp normal respiratory effort and clear to auscultation bilaterally Cardio regular rate and regular rhythm GI normal to inspection, nondistended, normoactive bowel sounds Palpation: soft Extremity normal to inspection Neuro oriented x3 and no sensory deficits noted Sensorium / Orientation: alert Motor Exam: strength 5/5 throughout Psych mental status grossly normal Skin no rashes or lesions noted MDM MDM MDM Narrative Medical decision making narrative: Patient is ordered IV fluids. Lab work obtained. Lab Data Attestation: I reviewed the patient's lab results. Labs: Laboratory Results - last 24 hr 03/27/22 03/27/22 21:21 21:21 WBC 8.2 RBC 3.76 L Hgb 11.2 L Hct 34.6 L MCV 92.0 MCH 29.8 MCHC 32.4 RDW Std Deviation 45.1 H RDW Coeff of Flavio 13.4 Plt Count 212 MPV 9.4 Immature Gran % (Auto) 0.700 Neut % (Auto) 80.5 H Lymph % (Auto) 11.6 L Hawkins % (Auto) 5.4 Eos % (Auto) 1.6 Baso % (Auto) 0.2 Absolute Neuts (auto) 6.6 Absolute Lymphs (auto) 0.95 Nucleated RBC % 0 Sodium 139 Potassium 4.0 Chloride 110 H Carbon Dioxide 23.0 Anion Gap 6 BUN 29 H Creatinine 1.41 H Estim Creat Clear Calc 44.33 Est GFR (MDRD) Af Amer 62 Est GFR (MDRD) Non-Af 51 L BUN/Creatinine Ratio 20.6 H Glucose 108 H Calcium 8.4 L Total Bilirubin 0.40 Direct Bilirubin 0.15 AST 18 ALT 20 Alkaline Phosphatase 64 Total Protein 6.9 Albumin 3.2 Globulin 3.7 Treatment and Re-Evaluation Narrative: Lab work is unremarkable. Creatinine is slightly elevated but at baseline for him. LFTs are normal. At this time patient is weak and having difficulty standing or caring for himself. He will require at least observation overnight and evaluation by physical therapy. I will speak with the hospitalist. Discharge Plan Triage Chief Complaint: Diarrhea ED Provider: Zo Yin Dx/Rx/DC Orders Clinical Impression: Diarrhea, Generalized weakness, Declining functional status Prescriptions: No Action (DME) blood pressure monitor Kit See Rx Instructions .ROUTE .MEDSUPPLY Qty: 1 0RF Rx Instructions: check blood pressure daily sertraline 25 mg tablet 75 mg PO DAILY metoprolol succinate 25 mg tablet extended release 24 hr 50 mg PO BID 90 Days Qty: 180 3RF furosemide 20 mg tablet 40 mg PO BID Qty: 180 2RF Rx Instructions: 40mg PO BID x2 days followed by Lasix 40mg PO Daily in the AM pantoprazole 40 mg tablet,delayed release (DR/EC) 40 mg PO DAILY 90 Days Qty: 90 3RF (DME) lancets [OneTouch Delica Lancets] 30 gauge misc See Rx Instructions .ROUTE .MEDSUPPLY Qty: 200 3RF Rx Instructions: check blood sugar tid for type 2 DM simvastatin 20 mg tablet 20 mg PO QHS Qty: 90 3RF pramipexole [Mirapex] 1 mg tablet 2 mg PO QHS Qty: 180 3RF Otezla 30 MG tablet 30 mg PO BID acetaminophen [Tylenol] 325 mg Tablet 650 mg PO Q4H PRN PRN (Reason: Pain 1-10 Or Fever) Qty: 0 0RF ferrous sulfate 325 mg (65 mg iron) tablet 325 mg PO Q OTHER DAY docusate sodium [Stool Softener] 100 mg capsule 100 mg PO DAILY diazepam [diazepam] 5 mg tablet 5 mg PO Q8 PRN (Reason: Vertigo) Qty: 15 0RF molnupiravir 200 mg capsule 800 mg PO Q12H 5 Days Qty: 40 0RF diazepam 5 mg tablet Label Comments: TAKE 1 TABLET BY MOUTHCEVERY 8 HOURS NEEDED FOR VERTIGO finasteride 5 mg tablet 5 mg PO DAILY Qty: 90 3RF (DME) blood sugar diagnostic Strip See Rx Instructions .ROUTE .MEDSUPPLY Qty: 100 0RF Rx Instructions: One Touch Elena test strip, use to test blood sugar 3 times daily. Dx E11.42 amlodipine 10 mg tablet 10 mg PO DAILY Qty: 90 3RF hydralazine 25 mg tablet 25 mg PO BID Qty: 180 3RF dulaglutide 4.5 mg/0.5 mL pen injector 4.5 mg SC .COMPLEX 90 Days Qty: 2 2RF Rx Instructions: 4.5 mg subcut every friday ergocalciferol (vitamin D2) 1,250 mcg (50,000 unit) capsule 50,000 unit PO QMONTH Qty: 12 0RF flecainide 100 mg tablet 100 mg PO Q12H Qty: 180 3RF (DME) pen needle, diabetic [BD Ultra-Fine Mini Pen Needle] 31 gauge x 3/16 needle See Rx Instructions .ROUTE .MEDSUPPLY Qty: 100 3RF Rx Instructions: daily for type 2 dm Lantus Solostar U-100 Insulin 100 unit/mL (3 mL) insulin pen 30 unit subcut QAM 90 Days Qty: 27 2RF olmesartan 20 mg tablet 20 mg PO DAILY Qty: 90 1RF progesterone micronized 100 mg capsule 100 mg PO QAM Qty: 90 0RF Primary Care Provider: Tosha Shrestha Referrals: Tosha Shrestha MD [Primary Care Provider] - Disposition Disposition: Acute Care Hospital [facility]
[2022-03-27] MEDS: 0.9% Normal Saline 1,000 ML 150 ML IV (22:07)
[2022-03-27 22:20] LABS: Absolute Lymphocyte Count 0.95 X10^3/uL (0.83-4.51); Absolute Neutrophil Count 6.6 X10^3/uL (2.0-7.7); Basophil# 0.02 X10^3/uL; Basophil% 0.2 % (0-1); Eosinophil# 0.13 X10^3/uL; Eosinophils% 1.6 % (0-5); Hematocrit 34.6 % (40-54); Hemoglobin 11.2 g/dL (13.0-16.5); Lymphocyte # 0.95 X10^3/ul (0.83-4.51); Lymphocyte % 11.6 % (19-41); Mean Corp Hgb Conc 32.4 g/dL (32-36); Mean Corpuscular Hgb 29.8 pg (27.0-32.0); Mean Platelet Vol. 9.4 fl (6.2-12.0); Monocyte# 0.44 X10^3/uL; Monocyte% 5.4 % (0-10); NRBC Flagged by Analyzer 0 % (0-5); Neutrophil # 6.58 X10^3/uL (2.7-7.7); Neutrophil % 80.5 % (47-70); Platelet Count 212 K/mm3 (150-450); RBC Distribution Width CV 13.4 % (11.6-14.6); RBC Distribution Width SD 45.1 fl (35.1-43.9); Red Blood Count 3.76 M/mm3 (4.6-6.2); White Blood Count 8.2 K/mm3 (4.4-11.0)
[2022-03-27 22:38] LABS: AST(SGOT) 18 U/L (15-37); Alanine Aminotransfer ALT/SGPT 20 U/L (16-61); Albumin, Serum 3.2 g/dL (3.2-5.0); Alkaline Phosphatase 64 U/L (45-117); Anion Gap 6 (5-15); BUN 29 mg/dL (7-18); BUN/Creat Ratio 20.6 RATIO (10-20); Bilirubin, Direct 0.15 mg/dL (0.00-0.30); Calcium,Total 8.4 mg/dL (8.5-10.1); Chloride 110 mmol/L (98-107); Creatinine, Serum 1.41 mg/dL (0.70-1.30); EST Glomerular Filtration Rate 51 mL/min (>60); Est Glom Filt Rate - Afr Amer 62 mL/min (>60); Estimated Creatinine Clearance 44.33 ml/min; Globulin 3.7 g/dL (2.2-4.2); Glucose 108 mg/dL (74-106); Protein, Total 6.9 g/dL (6.4-8.2); Sodium Level 139 mmol/L (136-145)
[2022-03-27 23:01] VITALS: BP 156/55; PULSE 71; RESP 17; O2SAT 95
[2022-03-28] VITALS (12 sets, daily range): BP systolic 120–153; BP diastolic 42–56; PULSE 53–67; RESP 16–22; TEMP 36.6–37.1; O2SAT 91–96; BMI 35.9
--- NOTE | 2022-03-28 01:17 | HP.PCM.HOS_ITS ---
[facility] - General General Date of Admission: 03/28/22 Date of Service: 03/28/22 Chief Complaint: Diarrhea for 1 day started on 03/27/2022. Generalized weakness, could not stand up or walk. HPI Narrative MARY SAN, is a 81 M with multiple comorbidities was brought by EMS for generalized weakness and diarrhea started 6:30 AM on 03/27/2022. Patient was too weak to stand or walk or take care of himself. Patient had multiple episodes of diarrhea, loose watery stool and felt very dehydrated. Patient was diagnosed with COVID on March 17 this started with mild symptoms of mild fever, cough, shortness of breath on exertion, URI symptoms and completed 5 days course of molnupiravir. He started having diarrhea after taking molnupiravir and did not had at the time of diagnosis of COVID. Denies recent fever or chills. He is not taking recent antibiotic. Patient is very hard of hearing. Labs done in the ED reviewed and discussed in assessment plan. . [facility] Medical History (HFpEF) heart failure with preserved ejection fraction (12/12/20) Acute respiratory failure with hypoxia Anemia Anemia of chronic renal failure, stage 3 (moderate) Anxiety and depression Atherosclerotic heart disease of [place] coronary artery without angina pectoris Atrial flutter Back pain BMI 34.0-34.9,adult BPH (benign prostatic hyperplasia) BPPV (benign paroxysmal positional vertigo) Cardiac dysrhythmia Cardiology follow-up encounter De Quervain's tenosynovitis Depression Dermatitis Diabetes mellitus Diabetic kidney disease Dizziness DM type 2 with diabetic peripheral neuropathy DVT (deep venous thrombosis) Dyslipidemia Dysphagia Essential (primary) hypertension Fall Fracture of great toe Gastric reflux Health care maintenance History of echocardiogram History of edema History of GI bleed History of peptic ulcer History of renal calculi History of ulceration HLD (hyperlipidemia) Injury of head and neck Iron deficiency anemia Iron deficiency anemia due to chronic blood loss Kidney hematoma (12/08/20) Left knee pain Left leg DVT Loss of equilibrium Low iron Malaise Near syncope Orthostatic hypotension MACHELLE (obstructive sleep apnea) Pain of left lower extremity Paroxysmal atrial flutter Pneumonia Polypharmacy Prostate disease Psoriasis Renal calculi RLS (restless legs syndrome) Sex disorder Suicidal ideation SVT (supraventricular tachycardia) Urolithiasis Vertigo Walker as ambulation aid Wears glasses Home Medications finasteride 5 mg tablet 5 mg PO DAILY PROSTATE #90 tabs 11/03/18 [Rx Last Taken 08/05/21] apremilast 30 mg tablet (Otezla) 30 mg PO BID arthritis 11/22/20 [History Last Taken 08/05/21] acetaminophen 325 mg tablet (Tylenol) 650 mg PO Q4H PRN PRN Pain 1-10 Or Fever #0 tabs 12/15/20 [Rx Last Taken Unknown] blood sugar diagnostic #100 ea 01/04/21 [Rx Last Taken Unknown] blood pressure monitor #1 ea 03/13/21 [Rx Last Taken Unknown] amlodipine 10 mg tablet 10 mg PO DAILY #90 tabs 08/20/21 [Rx Last Taken Unknown] hydralazine 25 mg tablet 25 mg PO BID #180 tabs 08/20/21 [Rx Last Taken Unknown] dulaglutide 4.5 mg/0.5 mL subcutaneous pen injector 4.5 mg (0.5 mL) subcut .COMPLEX 3 months #2 mL 09/12/21 [Rx Last Taken Unknown] pantoprazole 40 mg tablet,delayed release 40 mg PO DAILY 90 days #90 tabs 10/09/21 [Rx Last Taken Unknown] lancets 30 gauge (OneTouch Delica Lancets) #200 ea 10/26/21 [Rx Last Taken Unknown] pramipexole 1 mg tablet (Mirapex) 2 mg PO QHS RLS #180 tabs 12/10/21 [Rx Last Taken Unknown] simvastatin 20 mg tablet 20 mg PO QHS #90 tabs 12/10/21 [Rx Last Taken Unknown] ergocalciferol (vitamin D2) 1,250 mcg (50,000 unit) capsule 50,000 unit PO QMONTH #12 caps 01/01/22 [Rx Last Taken Unknown] flecainide 100 mg tablet 100 mg PO Q12H HEART RATE #180 tabs 01/01/22 [Rx Last Taken Unknown] pen needle, diabetic 31 gauge x 3/16 (BD Ultra-Fine Mini Pen Needle) #100 ea 01/23/22 [Rx Last Taken Unknown] diazepam 5 mg tablet 5 mg PO Q8 PRN Vertigo #15 tabs 01/30/22 [Rx Last Taken Unknown] insulin glargine 100 unit/mL (3 mL) subcutaneous pen (Lantus Solostar U-100 Insulin) 30 unit (0.3 mL) subcut QAM 3 months #27 mL 02/05/22 [Rx Last Taken Unknown] docusate sodium 100 mg capsule (Stool Softener) 100 mg PO DAILY stool softner 02/12/22 [History Last Taken Unknown] ferrous sulfate 325 mg (65 mg iron) tablet 325 mg PO Q OTHER DAY supplement 02/12/22 [History Last Taken Unknown] metoprolol succinate 25 mg tablet,extended release 24 hr 50 mg PO BID 90 days #180 tabs 02/12/22 [Rx Last Taken Unknown] olmesartan 20 mg tablet 20 mg PO DAILY #90 tabs 03/18/22 [Rx Last Taken Unknown] progesterone micronized 100 mg capsule 100 mg PO QAM #90 caps 03/18/22 [Rx Last Taken Unknown] furosemide 20 mg tablet 40 mg PO DAILY 03/27/22 [History Last Taken Unknown] Allergy/AdvReac Type Severity Reaction Status Date / Time hydrocodone bitartrate AdvReac Severe Other Verified 03/27/22 21:51 [From Vicodin] hydroxyzine AdvReac Severe Other Verified 03/27/22 21:51 Family History Father Diabetes Hypertension Cancer Lung cancer Mother Hypertension CVA (cerebral vascular accident) Sister Diabetes Son Diabetes Surgical History History of cardioversion (2015) History of cataract surgery History of left heart catheterization (02/16/13) History of lithotripsy (11/2020) History of radiofrequency ablation procedure for cardiac arrhythmia (02/05/06) history of right knee cap fracture History of right knee surgery Status post laser lithotripsy of ureteral calculus Status post left foot surgery STENT PLACEMENT FOR KIDNEY STONE Social History Smoking Status: Never smoker how long ago did patient quit smokin second hand exposure: No alcohol intake: never substance use type: does not use caffeine: No what type of physical activity do you participate in: none seatbelt use: always do you feel safe at home: Yes ROS ROS Narrative 14 ROS is incomplete as patient is hard of hearing and I suspect mild dementia. Constitutional: Reports fatigue and weakness, could not stand up. Dependent ADL. Patient can eat, no loss of appetite. HEENT: No loss of taste or smell. Reports systems reviewed and no addt'l complaints, except as documented Respiratory/Chest: Denies chest pain, shortness of breath at rest but shortness of breath on exertion. Gastrointestinal: No vomiting. No abdominal pain. Diarrhea as mentioned in HPI Genitourinary: Denies burning urination or new urinary tract symptoms Musculoskeletal: Reports chronic lower extremities joint pain and limited range of motion Extremities: Chronic bilateral lower leg swelling on diuretic Neurologic: Denies seizure-like activity skin: No ulcer. No rash Endocrinology: Reports systems reviewed and no addt'l complaints, except as documented Hematologic/Lymphatic: Reports systems reviewed and no addt'l complaints, except as documented Rest 14 ROS are negative except as mentioned in HPI Vital Signs Vital Signs Vital Signs: 03/27/22 21:43 03/27/22 23:01 03/28/22 00:06 Temperature 99.3 F H 98.6 F Temperature Source Oral Oral Pulse Rate 68 71 62 Respiratory Rate 24 H 17 22 H Blood Pressure 159/57 H 156/55 H 153/56 H Blood Pressure Mean 91 88 88 Pulse Ox 96 95 91 Oxygen Delivery Method Room Air Room Air Room Air 03/28/22 00:00 Temperature 98.6 F Temperature Source Oral Pulse Rate 62 Respiratory Rate 22 H Blood Pressure 153/56 H Blood Pressure Mean 88 Pulse Ox 91 Oxygen Delivery Method Room Air Weight Weight: 271 lb 2.697 oz Body Mass Index (BMI) 36.8 Physical Exam Narrative General: Alert, Oriented x3, Cooperative HEENT: Bilateral hearing loss, possible sensorineural deafness, atraumatic, PERRLA, EOMI, Normocephalic Oral: Oral mucosa dry. No Gingival or Mucosal Lesions/ Ulcerations Neck: Supple, No JVD, Negative Carotid Bruits Lungs: Air entry diminished in bilateral lung bases. No crepitation/rhonchi Cardiovascular: Irregular rhythm with multiple PVCs, Normal S1, Normal S2, systolic murmur over LLSB Abdomen: Bowel Sounds Present, Soft, Non Tender, Non-Distended : No renal angle tenderness. No suprapubic tenderness. Extremities: Bilateral chronic pitting lower legs edema, Capillary Refill Less than 3 Seconds Skin: Chronic bilateral lower legs venous stasis, venous hypertension/[place] pigmentation Musculoskeletal: No Tenderness to Palpation of Joints or Extremities. ROM restricted Neurological: Cranial nerves II-XII grossly intact, DTR 2+/4 and Symmetrical Psych/Mental Status: Flat affect, poor memory and recall, possible dementia Results Lab / Micro Data Result Diagrams: 03/27/22 21:21 03/27/22 21:21 Labs: Laboratory Results - last 24 hr 03/27/22 21:21: WBC 8.2, RBC 3.76 L, Hgb 11.2 L, Hct 34.6 L, MCV 92.0, MCH 29.8, MCHC 32.4, RDW Std Deviation 45.1 H, RDW Coeff of Flavio 13.4, Plt Count 212, MPV 9.4, Immature Gran % (Auto) 0.700, Neut % (Auto) 80.5 H, Lymph % (Auto) 11.6 L, [place] % (Auto) 5.4, Eos % (Auto) 1.6, Baso % (Auto) 0.2, Absolute Neuts (auto) 6.6, Absolute Lymphs (auto) 0.95, Nucleated RBC % 0 03/27/22 21:21: Sodium 139, Potassium 4.0, Chloride 110 H, Carbon Dioxide 23.0, Anion Gap 6, BUN 29 H, Creatinine 1.41 H, Estim Creat Clear Calc 44.33, Est GFR (MDRD) Af Amer 62, Est GFR (MDRD) Non-Af 51 L, BUN/Creatinine Ratio 20.6 H, Glucose 108 H, Calcium 8.4 L, Total Bilirubin 0.40, Direct Bilirubin 0.15, AST 18, ALT 20, Alkaline Phosphatase 64, Total Protein 6.9, Albumin 3.2, Globulin 3. 7 Assessment & Plan Assessment/Plan (1) Diarrhea: PLAN: Plan This is 81-year-old gentleman admitted with diarrhea after completing course of Molnupirivir 1. Acute diarrhea most probably side/adverse effect of Molnupirivir: Patient is being admitted on MedSurg floor. IV fluid resuscitation with Ringer lactate. Labs reviewed. Chloride 110. Serum sodium potassium and bicarb in normal range. Anion gap 9. 2. CKD stage IIIb: Patient baseline creatinine around 1.5, varies between 1.7-1.56. Admitted with BUN/creatinine 29/1.41. Patient also on diuretic furosemide 40 mg daily and will hold it as he is dehydrated. Resume when patient is euvolemic. 3. Recent diagnosis of COVID-19 on March 17: Patient should remain in COVID-19 enhanced precaution for 2 weeks until April 01, 2022. Does not have active symptoms of COVID-19 including cough, fever, URI, loss of appetite. He completed course of 5 days of Molnupirivir 4. Paroxysmal A. fib/supraventricular arrhythmia history on flecainide: Twelve- lead EKG ordered. Patient on flecainide 100 mg every 12 hourly. He had mild QTC prolongation on previous admission in July 2021 when he was admitted for hypertensive urgency with vertigo and dizziness. MRI of brain was negative for acute stroke. 3.? History of CAD-on statin, metoprolol.? Home medications continued 4. 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 Accu-Chek insulin coverage Humalog sliding scale.? Glucose is 108. Lantus dose decreased with holding parameters 5. Chronic iron deficiency anemia and anemia of chronic disease/CKD-on ferrous sulfate. 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 6. MACHELLE-continue home CPAP 8. Restless leg syndrome-on Mirapex. 9. BPH-and history of kidney stone lithotripsy on finasteride. 10. Psoriatic arthritis- hOLD apremilast.? Hold it 11.??Dysphagia secondary to esophageal ring/food impaction: He underwent EGD with dilatation on 07/03/2021 was found reflux esophagitis, low-grade status getting multiple nonbleeding duodenal ulcers with no stigmata of bleeding.? Patient follows Dr. Becerra, no acute issues. Living will/advanced directive/end of life care: Patient does have living will or advanced directive. His is power of commonwealth attorney for health. After discussion of benefits/risks procedures involved with full code, DNR CC arrest and DNR CC, the patient opted for full code. Patient does want artificial life support including intubation, tube feed, ventilator and/chest compression, central venous catheter, vasopressor and DC shock if needed Total time spent in [id number] encounter in discussion of advanced directive 16 minutes. Laboratory Results 03/27/22 21:21: WBC 8.2, RBC 3.76 L, Hgb 11.2 L, Hct 34.6 L, MCV 92.0, MCH 29.8, MCHC 32.4, RDW Std Deviation 45.1 H, RDW Coeff of Flavio 13.4, Plt Count 212, MPV 9.4, Immature Gran % (Auto) 0.700, Neut % (Auto) 80.5 H, Lymph % (Auto) 11.6 L, [place] % (Auto) 5.4, Eos % (Auto) 1.6, Baso % (Auto) 0.2, Absolute Neuts (auto) 6.6, Absolute Lymphs (auto) 0.95, Nucleated RBC % 0 03/27/22 21:21: Sodium 139, Potassium 4.0, Chloride 110 H, Carbon Dioxide 23.0, Anion Gap 6, BUN 29 H, Creatinine 1.41 H, Estim Creat Clear Calc 44.33, Est GFR (MDRD) Af Amer 62, Est GFR (MDRD) Non-Af 51 L, BUN/Creatinine Ratio 20.6 H, Glucose 108 H, Calcium 8.4 L, Total Bilirubin 0.40, Direct Bilirubin 0.15, AST 18, ALT 20, Alkaline Phosphatase 64, Total Protein 6.9, Albumin 3.2, Globulin 3.7 03/27/22 21:21: Phosphorus 1.9 L, Magnesium 1.8 Charges/Coding Visit Charges OBSV E&M: 27337 Initial observation care L3 Procedures Hospitalists Procedures: 06649 Advncd Care Plan 30 Min
[2022-03-28 01:42] LABS: Magnesium 1.8 mg/dL (1.6-2.6); Phosphorus 1.9 mg/dL (2.5-4.9)
--- NOTE | 2022-03-28 02:09 | EKG12_ITS ---
Test Reason : Blood Pressure : / mmHG Vent. Rate : 061 BPM Atrial Rate : 061 BPM P-R Int : 108 ms QRS Dur : 096 ms QT Int : 468 ms P-R-T Axes : 060 061 063 degrees QTc Int : 471 ms Sinus rhythm with short IN Otherwise normal ECG When compared with ECG of 30-JAN-2022 11:29, IN interval has decreased Confirmed by AVILA DUNCAN, ALBERTO ([id number]), clinical editor NITZA ROJAS ([id number]) on 03/29/2022 2:38:51 PM Referred By: Confirmed By:SCARLETT GRAMAJO MD
[2022-03-28] MEDS: Lactated Ringers 1,000 ML 100 ML IV (02:55)
[2022-03-28 03:51] LABS: Bedside Glucose 93 mg/dL (74-106)
[2022-03-28] MEDS: Na Biphos/Potassium Phosphate PACKET 1 PACKET PO ×4 (04:01→21:13)
[2022-03-28 04:42] LABS: Absolute Lymphocyte Count 1.13 X10^3/uL (0.83-4.51); Absolute Neutrophil Count 3.5 X10^3/uL (2.0-7.7); Basophil# 0.02 X10^3/uL; Basophil% 0.4 % (0-1); Eosinophil# 0.11 X10^3/uL; Eosinophils% 2.1 % (0-5); Hematocrit 31.4 % (40-54); Hemoglobin 10.1 g/dL (13.0-16.5); Lymphocyte # 1.13 X10^3/ul (0.83-4.51); Lymphocyte % 21.3 % (19-41); Mean Corp Hgb Conc 32.2 g/dL (32-36); Mean Corpuscular Hgb 29.6 pg (27.0-32.0); Mean Corpuscular Volume 92.1 fL (80-94); Mean Platelet Vol. 9.3 fl (6.2-12.0); Monocyte# 0.51 X10^3/uL; Monocyte% 9.6 % (0-10); NRBC Flagged by Analyzer 0 % (0-5); Neutrophil # 3.51 X10^3/uL (2.7-7.7); Platelet Count 157 K/mm3 (150-450); RBC Distribution Width CV 13.4 % (11.6-14.6); RBC Distribution Width SD 45.2 fl (35.1-43.9); Red Blood Count 3.41 M/mm3 (4.6-6.2); White Blood Count 5.3 K/mm3 (4.4-11.0)
[2022-03-28 04:53] LABS: International Normalized Ratio 1.2; Prothrombin Time (Protime)PT. 14.6 SECONDS (11.7-14.9)
[2022-03-28 05:13] LABS: BNP,B-Type NATRIURETIC PEPTIDE 184.5 pg/mL (0-100)
[2022-03-28 05:24] LABS: Anion Gap 5 (5-15); BUN 25 mg/dL (7-18); BUN/Creat Ratio 20.8 RATIO (10-20); Calcium,Total 7.7 mg/dL (8.5-10.1); Chloride 111 mmol/L (98-107); EST Glomerular Filtration Rate 62 mL/min (>60); Est Glom Filt Rate - Afr Amer 74 mL/min (>60); Estimated Creatinine Clearance 52.09 ml/min; Glucose 98 mg/dL (74-106); Potassium 3.7 mmol/L (3.5-5.1); Sodium Level 139 mmol/L (136-145)
[2022-03-28 05:47] LABS: CPK Total, Creatine Kinase 69 U/L (39-308)
[2022-03-28] MEDS: Enoxaparin 40 MG/0.4 ML Syringe SC (05:47)
[2022-03-28 07:10] LABS: Bedside Glucose 94 mg/dL (74-106)
--- NOTE | 2022-03-28 07:59 | PN.HOSP_ITS ---
Objective Data Objective Data Vital Signs: Vital Signs Temp Pulse Resp BP Pulse Ox O2 Del Method 98.8 F 65 18 143/53 H 93 Room Air 03/28/22 05:44 03/28/22 05:44 03/28/22 05:44 03/28/22 05:44 03/28/22 05:44 03/28/22 05:44 Oxygen Delivery Method Room Air Weight: 120.2 kg Body Mass Index (BMI) 35.9 Intake & Output: Intake and Output for Last 24 Hours 03/26/22 03/27/22 03/28/22 23:59 23:59 23:59 Intake Total 727.5 / 727.5 Output Total 450 / 450 Balance 277.5 / 277.5 Lab / Micro Data Result Diagrams: 03/28/22 04:19 03/28/22 04:19 Labs: Laboratory Results - last 24 hr 03/27/22 21:21: WBC 8.2, RBC 3.76 L, Hgb 11.2 L, Hct 34.6 L, MCV 92.0, MCH 29.8, MCHC 32.4, RDW Std Deviation 45.1 H, RDW Coeff of Flavio 13.4, Plt Count 212, MPV 9.4, Immature Gran % (Auto) 0.700, Neut % (Auto) 80.5 H, Lymph % (Auto) 11.6 L, [place] % (Auto) 5.4, Eos % (Auto) 1.6, Baso % (Auto) 0.2, Absolute Neuts (auto) 6.6, Absolute Lymphs (auto) 0.95, Nucleated RBC % 0 03/27/22 21:21: Sodium 139, Potassium 4.0, Chloride 110 H, Carbon Dioxide 23.0, Anion Gap 6, BUN 29 H, Creatinine 1.41 H, Estim Creat Clear Calc 44.33, Est GFR (MDRD) Af Amer 62, Est GFR (MDRD) Non-Af 51 L, BUN/Creatinine Ratio 20.6 H, Glucose 108 H, Calcium 8.4 L, Total Bilirubin 0.40, Direct Bilirubin 0.15, AST 18, ALT 20, Alkaline Phosphatase 64, Total Protein 6.9, Albumin 3.2, Globulin 3.7 03/27/22 21:21: Phosphorus 1.9 L, Magnesium 1.8 03/28/22 03:25: POC Glucose 93 03/28/22 04:19: PT 14.6, INR 1.2 03/28/22 04:19: Total Creatine Kinase 69, C-React Prot Ext Range 32.10 H 03/28/22 04:19: B-Natriuretic Peptide 184.5 H 03/28/22 04:19: WBC 5.3, RBC 3.41 L, Hgb 10.1 L, Hct 31.4 L, MCV 92.1, MCH 29.6, MCHC 32.2, RDW Std Deviation 45.2 H, RDW Coeff of Flavio 13.4, Plt Count 157, MPV 9.3, Immature Gran % (Auto) 0.600, Neut % (Auto) 66.0, Lymph % (Auto) 21.3, [place] % (Auto) 9.6, Eos % (Auto) 2.1, Baso % (Auto) 0.4, Absolute Neuts (auto) 3.5, Absolute Lymphs (auto) 1.13, Nucleated RBC % 0 03/28/22 04:19: Sodium 139, Potassium 3.7, Chloride 111 H, Carbon Dioxide 23.0, Anion Gap 5, BUN 25 H, Creatinine 1.20, Estim Creat Clear Calc 52.09, Est GFR (MDRD) Af Amer 74, Est GFR (MDRD) Non-Af 62, BUN/Creatinine Ratio 20.8 H, Glucose 98, Calcium 7.7 L 03/28/22 06:48: POC Glucose 94 Physical Exam Narrative GENERAL: cooperative HEENT: Atraumatic; EYES; Anicteric, Normal Conjunctiva NECK; supple, normal thyroid, RESPIRATORY: Diminished to auscultation CARDIOVASCULAR: Regular S1 S2, GI: soft, normoactive bowel sounds, : No Renal angle tenderness; EXTREMITIES: No edema, no clubbing, MUSCULOSKELETAL: no muscle wasting NEURO: Awake; no lateralizing signs. SKIN: No Rash PSYCH; Flat affect Assessment & Plan Assessment/Plan (1) Diarrhea: PLAN: Plan Patient is an 81-year-old gentleman with recent diagnosis of COVID 19 treated with Molnupirivir presented with diarrhea 1. Acute diarrhea ? Thought to be secondary to side effect of Molnupirivir. Admitted to regular nursing floor for symptomatic management 2. Acute renal insufficiency ? Superimposed on chronic kidney stage III A. Managed with IV fluid with improvement in kidney function 3. Paroxysmal A. fib/paroxysmal supraventricular arrhythmia ? Patient is on flecainide continue 4. Hypertension - Blood pressure controlled, home medications continued with dose adjustment as needed 5. Diabetes mellitus type II -patient's SC dulaglutide held please on Accu-Cheks AC and at bedtime with sliding scale coverage 5. BPH ? Patient is on finasteride 6. Chronic congestive heart failure with preserved ejection fraction ? Stable on furosemide 7. Obstructive sleep apnea ? On CPAP at night 8. Anemia - Secondary to chronic disorder monitoring H&H and transfuse if patient becomes symptomatic or hemoglobin falls below 7 9. 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 Weight loss advised 10. Restless leg syndrome ? Patient is on Mirapex 11. Psoriatic arthritis- On apremilast.? 12. DVT prophylaxis ? On enoxaparin Total time spent evaluating patient review of labs adjustment of medications ordering of labs for a.m. and discussion with patient as well as other providers involved in patient's care; 35 minutes Charges/Coding Procedures Hospitalists Procedures: [id number] Prolonged InPt Service; first hour
[2022-03-28] MEDS: Losartan Potassium 50 MG Tablet PO (11:56)
[2022-03-28] MEDS: amLODIPine 10 MG Tablet PO (11:56)
[2022-03-28] MEDS: hydrALAZINE 25 MG Tablet PO ×2 (11:57→21:14)
[2022-03-28] MEDS: guaiFENesin/D-Methorphan TAB.SR.12H 1 TABLET PO ×2 (11:58→21:14)
[2022-03-28] MEDS: Finasteride 5 MG Tablet PO (11:58)
[2022-03-28] MEDS: Pantoprazole Sodium 40 MG Tablet PO (11:58)
[2022-03-28] MEDS: Flecainide 100 MG Tablet PO ×2 (11:59→21:13)
[2022-03-28 12:20] LABS: Bedside Glucose 124 mg/dL (74-106)
[2022-03-28 18:06] LABS: Bedside Glucose 127 mg/dL (74-106)
[2022-03-28] MEDS: Atorvastatin Calcium 10 MG Tablet PO (21:13)
[2022-03-28] MEDS: Pramipexole Di-HCl 1 MG Tablet 2 MG PO (21:13)
[2022-03-28 21:45] LABS: Bedside Glucose 119 mg/dL (74-106)
--- NOTE | 2022-03-29 02:54 | CPS ---
RN spoke with pt earlier and he told her he did not need a CPAP set up because he was going home tomorrow.
[2022-03-29 04:00] VITALS: BP 106/54; PULSE 55; RESP 17; TEMP 37.2; O2SAT 95
[2022-03-29] MEDS: Enoxaparin 40 MG/0.4 ML Syringe SC (06:30)
[2022-03-29] MEDS: Na Biphos/Potassium Phosphate PACKET 1 PACKET PO ×2 (06:30→14:47)
[2022-03-29 06:55] LABS: Bedside Glucose 121 mg/dL (74-106)
--- NOTE | 2022-03-29 07:38 | PN.HOSP_ITS ---
Subjective Subjective Patient seen. Reports having formed stools Objective Data Objective Data Vital Signs: Vital Signs Temp Pulse Resp BP Pulse Ox O2 Del Method 98.9 F 55 L 17 106/54 L 95 Room Air 03/29/22 04:00 03/29/22 04:00 03/29/22 04:00 03/29/22 04:00 03/29/22 04:00 03/29/22 04:00 Oxygen Delivery Method Room Air Weight: 120.1 kg Body Mass Index (BMI) 35.9 Intake & Output: Intake and Output for Last 24 Hours 03/27/22 03/28/22 03/29/22 23:59 23:59 23:59 Intake Total 2537.5 / 2647.5 110 / 110 Output Total 450 / 825 700 / 700 Balance 2087.5 / 1822.5 -590 / -590 Lab / Micro Data Result Diagrams: 03/29/22 08:00 03/29/22 08:00 Labs: Laboratory Results - last 24 hr 03/28/22 11:41: POC Glucose 124 H 03/28/22 16:58: POC Glucose 127 H 03/28/22 21:04: POC Glucose 119 H 03/29/22 06:29: POC Glucose 121 H Physical Exam Narrative GENERAL: cooperative HEENT: Atraumatic; EYES; Anicteric, Normal Conjunctiva NECK; supple, normal thyroid, RESPIRATORY: Diminished to auscultation CARDIOVASCULAR: Regular S1 S2, GI: soft, normoactive bowel sounds, : No Renal angle tenderness; EXTREMITIES: No edema, no clubbing, MUSCULOSKELETAL: no muscle wasting NEURO: Awake; no lateralizing signs. SKIN: No Rash PSYCH; Flat affect Assessment & Plan Assessment/Plan (1) Diarrhea: PLAN: Plan Patient is an 81-year-old gentleman with recent diagnosis of COVID 19 treated with Molnupirivir presented with diarrhea 1. Acute diarrhea ? Thought to be secondary to side effect of Molnupirivir. Admitted to regular nursing floor for symptomatic management ? 03/29/2022; diarrhea resolved 2. Acute renal insufficiency ? Superimposed on chronic kidney stage III A. Managed with IV fluid with impro vement in kidney function 3. Paroxysmal A. fib/paroxysmal supraventricular arrhythmia ? Patient is on flecainide continue 4. Hypertension - Blood pressure controlled, home medications continued with dose adjustment as needed 5. Diabetes mellitus type II -patient's SC dulaglutide held please on Accu-Cheks AC and at bedtime with sliding scale coverage 5. BPH ? Patient is on finasteride 6. Chronic congestive heart failure with preserved ejection fraction ? Stable on furosemide 7. Obstructive sleep apnea ? On CPAP at night 8. Anemia - Secondary to chronic disorder monitoring H&H and transfuse if patient becomes symptomatic or hemoglobin falls below 7 9. 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 Weight loss advised 10. Restless leg syndrome ? Patient is on Mirapex 11. Psoriatic arthritis- On apremilast.? 12. DVT prophylaxis ? On enoxaparin Charges/Coding Visit Charges Inpatient E&M: 44499 Subs Hosp L2
[2022-03-29 08:13] LABS: Absolute Lymphocyte Count 1.62 X10^3/uL (0.83-4.51); Absolute Neutrophil Count 3.7 X10^3/uL (2.0-7.7); Basophil# 0.02 X10^3/uL; Basophil% 0.3 % (0-1); Eosinophil# 0.22 X10^3/uL; Eosinophils% 3.6 % (0-5); Hematocrit 34.1 % (40-54); Lymphocyte # 1.62 X10^3/ul (0.83-4.51); Lymphocyte % 26.2 % (19-41); Mean Corp Hgb Conc 32.3 g/dL (32-36); Mean Corpuscular Hgb 29.6 pg (27.0-32.0); Mean Corpuscular Volume 91.9 fL (80-94); Mean Platelet Vol. 9.2 fl (6.2-12.0); Monocyte# 0.62 X10^3/uL; NRBC Flagged by Analyzer 0 % (0-5); Neutrophil # 3.66 X10^3/uL (2.7-7.7); Neutrophil % 59.3 % (47-70); Platelet Count 159 K/mm3 (150-450); RBC Distribution Width CV 13.4 % (11.6-14.6); RBC Distribution Width SD 45.4 fl (35.1-43.9); Red Blood Count 3.71 M/mm3 (4.6-6.2); White Blood Count 6.2 K/mm3 (4.4-11.0)
[2022-03-29 09:02] LABS: Anion Gap 5 (5-15); BUN 23 mg/dL (7-18); BUN/Creat Ratio 19.3 RATIO (10-20); Calcium,Total 8.6 mg/dL (8.5-10.1); Chloride 113 mmol/L (98-107); Creatinine, Serum 1.19 mg/dL (0.70-1.30); EST Glomerular Filtration Rate 62 mL/min (>60); Est Glom Filt Rate - Afr Amer 75 mL/min (>60); Estimated Creatinine Clearance 52.53 ml/min; Glucose 120 mg/dL (74-106); Magnesium 1.9 mg/dL (1.6-2.6); Potassium 4.1 mmol/L (3.5-5.1); Sodium Level 141 mmol/L (136-145)
[2022-03-29 09:14] VITALS: BP 158/47; PULSE 71; RESP 18; TEMP 36.7; O2SAT 97
[2022-03-29 09:16] VITALS: BP 158/47; PULSE 71
[2022-03-29] MEDS: guaiFENesin/D-Methorphan TAB.SR.12H 1 TABLET PO (09:16)
[2022-03-29] MEDS: hydrALAZINE 25 MG Tablet PO (09:16)
[2022-03-29] MEDS: Pantoprazole Sodium 40 MG Tablet PO (09:16)
[2022-03-29] MEDS: Finasteride 5 MG Tablet PO (09:16)
[2022-03-29] MEDS: Losartan Potassium 50 MG Tablet PO (09:16)
[2022-03-29] MEDS: Ferrous Sulfate 325 MG Tablet PO (09:16)
[2022-03-29] MEDS: amLODIPine 10 MG Tablet PO (09:16)
[2022-03-29] MEDS: Metoprolol(XL)Succ 50 MG Tablet PO (09:16)
[2022-03-29] MEDS: Insulin Glargine-YFGN 100 UNIT/ML Pen 20 UNIT SC (09:17)
[2022-03-29] MEDS: Flecainide 100 MG Tablet PO (09:17)
--- NOTE | 2022-03-29 10:17 | PCM.DC.SUM ---
Providers Date of Admission: 03/28/22 Date of Discharge: 03/29/22 Primary Care Physician: Dr. Tosha Shrestha MD Reason For Visit: COVID 19 WITH DIARRHEA Diagnosis Discharge Diagnosis (1) Diarrhea: Status: Acute Code(s): R19.7 - Diarrhea, unspecified Medications at Discharge Home Medications finasteride 5 mg tablet 5 mg PO DAILY PROSTATE #90 tabs 11/03/18 apremilast 30 mg tablet (Otezla) 30 mg PO BID arthritis 11/22/20 acetaminophen 325 mg tablet (Tylenol) 650 mg PO Q4H PRN PRN Pain 1-10 Or Fever #0 tabs 12/15/20 blood sugar diagnostic #100 ea 01/04/21 blood pressure monitor #1 ea 03/13/21 amlodipine 10 mg tablet 10 mg PO DAILY #90 tabs 08/20/21 hydralazine 25 mg tablet 25 mg PO BID #180 tabs 08/20/21 dulaglutide 4.5 mg/0.5 mL subcutaneous pen injector 4.5 mg (0.5 mL) subcut .COMPLEX 3 months #2 mL 09/12/21 pantoprazole 40 mg tablet,delayed release 40 mg PO DAILY 90 days #90 tabs 10/09/21 lancets 30 gauge (OneTouch Delica Lancets) #200 ea 10/26/21 pramipexole 1 mg tablet (Mirapex) 2 mg PO QHS RLS #180 tabs 12/10/21 simvastatin 20 mg tablet 20 mg PO QHS #90 tabs 12/10/21 ergocalciferol (vitamin D2) 1,250 mcg (50,000 unit) capsule 50,000 unit PO QMONTH #12 caps 01/01/22 flecainide 100 mg tablet 100 mg PO Q12H HEART RATE #180 tabs 01/01/22 pen needle, diabetic 31 gauge x 3/16 (BD Ultra-Fine Mini Pen Needle) #100 ea 01/23/22 diazepam 5 mg tablet 5 mg PO Q8 PRN Vertigo #15 tabs 01/30/22 insulin glargine 100 unit/mL (3 mL) subcutaneous pen (Lantus Solostar U-100 Insulin) 30 unit (0.3 mL) subcut QAM 3 months #27 mL 02/05/22 docusate sodium 100 mg capsule (Stool Softener) 100 mg PO DAILY stool softner 02/12/22 ferrous sulfate 325 mg (65 mg iron) tablet 325 mg PO Q OTHER DAY supplement 02/12/22 metoprolol succinate 25 mg tablet,extended release 24 hr 50 mg PO BID 90 days #180 tabs 02/12/22 olmesartan 20 mg tablet 20 mg PO DAILY #90 tabs 03/18/22 progesterone micronized 100 mg capsule 100 mg PO QAM #90 caps 03/18/22 furosemide 20 mg tablet 40 mg PO DAILY 03/27/22 Hospital Course Summary of Care Provided Minutes Spent on Discharge: 35 Hospital Course: Patient is an 81-year-old gentleman with recent diagnosis of COVID 19 treated with Molnupirivir presented with diarrhea 1. Acute diarrhea ? Thought to be secondary to side effect of Molnupirivir. Admitted to regular nursing floor for symptomatic management ? 03/29/2022; diarrhea resolved 2. Acute renal insufficiency ? Superimposed on chronic kidney stage III A. Managed with IV fluid with improvement in kidney function 3. Paroxysmal A. fib/paroxysmal supraventricular arrhythmia ? Patient is on flecainide continue 4. Hypertension - Blood pressure controlled, home medications continued with dose adjustment as needed 5. Diabetes mellitus type II -patient's SC dulaglutide held please on Accu-Cheks AC and at bedtime with sliding scale coverage 5. BPH ? Patient is on finasteride 6. Chronic congestive heart failure with preserved ejection fraction ? Stable on furosemide 7. Obstructive sleep apnea ? On CPAP at night 8. Anemia - Secondary to chronic disorder monitoring H&H and transfuse if patient becomes symptomatic or hemoglobin falls below 7 9. 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 Weight loss advised 10. Restless leg syndrome ? Patient is on Mirapex 11. Psoriatic arthritis- On apremilast.? 12. DVT prophylaxis ? On enoxaparin Physical Exam Narrative GENERAL: cooperative HEENT: Atraumatic; EYES; Anicteric, Normal Conjunctiva NECK; supple, normal thyroid, RESPIRATORY: Diminished to auscultation CARDIOVASCULAR: Regular S1 S2, GI: soft, normoactive bowel sounds, : No Renal angle tenderness; EXTREMITIES: No edema, no clubbing, MUSCULOSKELETAL: no muscle wasting NEURO: Awake; no lateralizing signs. SKIN: No Rash PSYCH; Flat affect Weight / BMI Weight Weight: 120.1 kg Body Mass Index (BMI) 35.9 ABG / Lab / Microbiology Data Result Diagrams: 03/29/22 08:00 03/29/22 08:00 Laboratory: Laboratory Results - last 24 hr 03/28/22 11:41: POC Glucose 124 H 03/28/22 16:58: POC Glucose 127 H 03/28/22 21:04: POC Glucose 119 H 03/29/22 06:29: POC Glucose 121 H 03/29/22 08:00: WBC 6.2, RBC 3.71 L, Hgb 11.0 L, Hct 34.1 L, MCV 91.9, MCH 29.6, MCHC 32.3, RDW Std Deviation 45.4 H, RDW Coeff of Flavio 13.4, Plt Count 159, MPV 9.2, Immature Gran % (Auto) 0.600, Neut % (Auto) 59.3, Lymph % (Auto) 26.2, [place] % (Auto) 10.0, Eos % (Auto) 3.6, Baso % (Auto) 0.3, Absolute Neuts (auto) 3.7, Absolute Lymphs (auto) 1.62, Nucleated RBC % 0 03/29/22 08:00: Sodium 141, Potassium 4.1, Chloride 113 H, Carbon Dioxide 23.0, Anion Gap 5, BUN 23 H, Creatinine 1.19, Estim Creat Clear Calc 52.53, Est GFR (MDRD) Af Amer 75, Est GFR (MDRD) Non-Af 62, BUN/Creatinine Ratio 19.3, Glucose 120 H, Calcium 8.6, Magnesium 1.9 D/C Instructions Discharge Diet: No restrictions Discharge Activity: Return to Normal Activity Call your doctor if you observe: Fever of 101 or Higher, Shortness of breath, Fainting spells and Chest pain Meaningful Use Info Meaningful Use Diagnoses (Choose all that apply): None applicable Discharge Plan Admission Admit Date/Time: 03/28/22 01:17 Attending Provider: Madan Sethi Primary Care Provider: Tosha Shrestha Consulting Providers: Yogesh Scott Discharge Orders/Prescriptions Prescriptions: Continued (DME) blood pressure monitor Kit See Rx Instructions .ROUTE .MEDSUPPLY Qty: 1 0RF Rx Instructions: check blood pressure daily metoprolol succinate 25 mg tablet extended release 24 hr 50 mg PO BID 90 Days Qty: 180 3RF pantoprazole 40 mg tablet,delayed release (DR/EC) 40 mg PO DAILY 90 Days Qty: 90 3RF (DME) lancets [OneTouch Delica Lancets] 30 gauge misc See Rx Instructions .ROUTE .MEDSUPPLY Qty: 200 3RF Rx Instructions: check blood sugar tid for type 2 DM simvastatin 20 mg tablet 20 mg PO QHS Qty: 90 3RF pramipexole [Mirapex] 1 mg tablet 2 mg PO QHS Qty: 180 3RF Otezla 30 MG tablet 30 mg PO BID acetaminophen [Tylenol] 325 mg Tablet 650 mg PO Q4H PRN PRN (Reason: Pain 1-10 Or Fever) Qty: 0 0RF ferrous sulfate 325 mg (65 mg iron) tablet 325 mg PO Q OTHER DAY docusate sodium [Stool Softener] 100 mg capsule 100 mg PO DAILY diazepam 5 mg tablet 5 mg PO Q8 PRN (Reason: Vertigo) Qty: 15 0RF furosemide 20 mg tablet 40 mg PO DAILY Rx Instructions: 40mg PO BID x2 days followed by Lasix 40mg PO Daily in the AM finasteride 5 mg tablet 5 mg PO DAILY Qty: 90 3RF (DME) blood sugar diagnostic Strip See Rx Instructions .ROUTE .MEDSUPPLY Qty: 100 0RF Rx Instructions: One Touch Elena test strip, use to test blood sugar 3 times daily. Dx E11.42 amlodipine 10 mg tablet 10 mg PO DAILY Qty: 90 3RF hydralazine 25 mg tablet 25 mg PO BID Qty: 180 3RF dulaglutide 4.5 mg/0.5 mL pen injector 4.5 mg SC .COMPLEX 90 Days Qty: 2 2RF Rx Instructions: 4.5 mg subcut every friday ergocalciferol (vitamin D2) 1,250 mcg (50,000 unit) capsule 50,000 unit PO QMONTH Qty: 12 0RF flecainide 100 mg tablet 100 mg PO Q12H Qty: 180 3RF (DME) pen needle, diabetic [BD Ultra-Fine Mini Pen Needle] 31 gauge x 3/16 needle See Rx Instructions .ROUTE .MEDSUPPLY Qty: 100 3RF Rx Instructions: daily for type 2 dm Lantus Solostar U-100 Insulin 100 unit/mL (3 mL) insulin pen 30 unit subcut QAM 90 Days Qty: 27 2RF olmesartan 20 mg tablet 20 mg PO DAILY Qty: 90 1RF progesterone micronized 100 mg capsule 100 mg PO QAM Qty: 90 0RF Referrals / Follow Up: Tosha Shrestha MD [Primary Care Provider] - Within 1 Week Disposition Disposition (needs filled in before D/C Order can be placed): Home Health Service Charges/Coding Visit Charges OBSV E&M: 14178 Observation care discharge
--- NOTE | 2022-03-29 11:45 | CASEMGMT ---
TIMOTHY LOPEZ in to complete KINNEY form with patient. TIMOTHY LOPEZ explained KINNEY for to patient, patient voiced understanding. Patient signed KINNEY form and filed in chart. Patient provided with copy of signed KINNEY form. TIMOTHY LOPEZ discussed discharge needs and progress with therapy. Patient denies need for HHC at discharge. Patient had no further questions or concerns at this time.
[2022-03-29 11:55] LABS: Bedside Glucose 122 mg/dL (74-106)
--- NOTE | 2022-03-29 11:56 | NURSING ---
spoke with pt's daughter and pt's to be dc'd home after dialysis today as well so will come to take home later this even.
[2022-03-29 16:30] LABS: Bedside Glucose 141 mg/dL (74-106)
--- NOTE | 2022-03-29 18:39 | NURSING ---
dc'd home via wc with daugther and with dc instructions given and no questions voiced.
== END 2022-03-29 10:19 | disposition home health service (06) ==
LOC: ED 23:44 → PCU 03-28 04:16
PROVIDERS: Admitting Provider Internal Medicine; Emergency Provider Emergency Medicine; PCP Internal Medicine; Visit Provider Internal Medicine
DX: K52.1 Toxic gastroenteritis and colitis (principal); L40.50 Arthropathic psoriasis, unspecified; I13.0 Hypertensive heart and chronic kidney disease with heart failure and stage 1 through stage 4 chronic kidney disease, or unspecified chronic kidney disease; I50.32 Chronic diastolic (congestive) heart failure; E11.22 Type 2 diabetes mellitus with diabetic chronic kidney disease; E11.42 Type 2 diabetes mellitus with diabetic polyneuropathy; I48.0 Paroxysmal atrial fibrillation; Z79.4 Long term (current) use of insulin; N18.31 Chronic kidney disease, stage 3a; H91.90 Unspecified hearing loss, unspecified ear; G47.33 Obstructive sleep apnea (adult) (pediatric); E78.5 Hyperlipidemia, unspecified; G25.81 Restless legs syndrome; I25.10 Atherosclerotic heart disease of native coronary artery without angina pectoris; D63.1 Anemia in chronic kidney disease; Z86.16 Personal history of COVID-19; E66.9 Obesity, unspecified; Z68.36 Body mass index [BMI] 36.0-36.9, adult; Z79.899 Other long term (current) drug therapy; N40.0 Benign prostatic hyperplasia without lower urinary tract symptoms; T50.995A Adverse effect of other drugs, medicaments and biological substances, initial encounter; Z86.718 Personal history of other venous thrombosis and embolism; K21.9 Gastro-esophageal reflux disease without esophagitis
CPT/HCPCS: 36415; 80048; 80076; 82550; 82962; 83735; 83880; 84100; 85025; 85610; 86140; 93005; 96360; 96361; 96372; 97110; 97162; 97530; 99218; 99251; 99285; J7040; J7120; G0378; G0463

== ENCOUNTER → 2022-04-05 | Outpatient (CLI) | payer MEDICARE, BC, SELFPAY ==
[2022-04-05 12:35] LABS: Hemoglobin 11.2 g/dL (13.0-16.5); Mean Corpuscular Hgb 29.8 pg (27.0-32.0); Mean Corpuscular Volume 93.1 fL (80-94); Mean Platelet Vol. 9.7 fl (6.2-12.0); Platelet Count 213 K/mm3 (150-450); RBC Distribution Width CV 13.5 % (11.6-14.6); RBC Distribution Width SD 45.8 fl (35.1-43.9); Red Blood Count 3.76 M/mm3 (4.6-6.2); White Blood Count 7.7 K/mm3 (4.4-11.0)
[2022-04-05 12:56] LABS: Protein, Urine (Random) 41.4 mg/dL (<11.9); Protein:Creat Ratio 1163 mg/g CRE (0-200)
[2022-04-05 13:07] LABS: Albumin, Serum 3.4 g/dL (3.2-5.0); BUN 28 mg/dL (7-18); BUN/Creat Ratio 18.9 RATIO (10-20); Calcium,Total 9.3 mg/dL (8.5-10.1); Chloride 111 mmol/L (98-107); Creatinine, Serum 1.48 mg/dL (0.70-1.30); EST Glomerular Filtration Rate 48 mL/min (>60); Est Glom Filt Rate - Afr Amer 58 mL/min (>60); Glucose 125 mg/dL (74-106); Magnesium 2.2 mg/dL (1.6-2.6); Phosphorus 3.3 mg/dL (2.5-4.9); Potassium 4.6 mmol/L (3.5-5.1); Sodium Level 140 mmol/L (136-145)
== END | disposition home or self-care (01) ==
LOC: BIMLAB 11:06
PROVIDERS: PCP Internal Medicine; Referring Provider Internal Medicine Nephrology; Visit Provider Internal Medicine Nephrology
DX: E11.22 Type 2 diabetes mellitus with diabetic chronic kidney disease (principal); E11.21 Type 2 diabetes mellitus with diabetic nephropathy; N18.31 Chronic kidney disease, stage 3a
CPT/HCPCS: 36415; 80069; 82570; 83735; 84156; 85027

== ENCOUNTER 2022-04-12 13:09 | Emergency (ER) | payer MEDICARE, BC, SELFPAY ==
[2022-04-12 13:11] VITALS: BP 143/59; PULSE 58; RESP 18; TEMP 36.6; O2SAT 97; BMI 36.6
--- NOTE | 2022-04-12 13:18 | EKG12_ITS ---
Test Reason : Blood Pressure : / mmHG Vent. Rate : 058 BPM Atrial Rate : 058 BPM P-R Int : 264 ms QRS Dur : 098 ms QT Int : 470 ms P-R-T Axes : 019 068 068 degrees QTc Int : 461 ms Sinus bradycardia with 1st degree A-V block Otherwise normal ECG Confirmed by AVILA DUNCAN, ALBERTO ([id number]), slot editor NITZA ROJAS ([id number]) on 04/15/2022 9:37:13 AM Referred By: Confirmed By:SCARLETT GRAMAJO MD
--- NOTE | 2022-04-12 13:29 | CT_ITS ---
STUDY: CT BRAIN WITHOUT CONTRAST REASON FOR EXAM: Male, 81 years old. Chest pain and dizziness. RADIATION DOSAGE (If Supplied By Facility): CTDIvol = ( 44.99 ) mGy, DLP = ( 796.11 ) mGycm TECHNIQUE: Transaxial CT imaging of the brain was performed without administration of intravenous contrast material. Individualized dose optimization techniques were used for this CT. COMPARISON: Comparison is made with prior study 01/30/2022. FINDINGS: Stable soft tissue prominence in the scalp overlying the right occipital bone. Normal calvarium. There is mild cerebral atrophy with widening of the extra-axial spaces and ventricular dilatation. There are areas of decreased attenuation within the white matter tracts of the supratentorial brain, consistent with microvascular disease changes. Normal basal ganglia and thalami. Normal brainstem. Normal cerebellum. There is no intracranial hemorrhage. There are no findings of an acute ischemic infarction. Atherosclerotic calcification of the vertebral arteries and cavernous portions of the internal carotid arteries bilaterally. Normal visualized paranasal sinuses. CT/Brain/Head without Contrast IMPRESSION: Chronic involutional changes of the brain. Stable appearance of the soft tissue prominence overlying the right occipital bone. Electronically Signed: Leo Fay MD at 14:06 EDT ,
--- NOTE | 2022-04-12 13:31 | EDS_ITS ---
HPI History of Present Illness Chief Complaint: Chest Pain Narrative Narrative: 81-year-old male presenting for some chest wall pain. He states that he has been 1 area in the left upper chest wall that he points to this finger that hurts. He states that it started hurting yesterday while he was tinkering in his garage. Patient states he was trying to rub this and it went away and then it came back later. Today he had another episode of this and states he did not take anything for pain because he did not want to have to get up out of his chair and walk into the kitchen. He was able to use his phone and called his primary care physician who told him to come to the emergency room. The patient also also complaining of dizziness which she describes as vertiginous in nature. He has a long history of this and states that nothing works for it. He does take meclizine but he did not try any of this today again because he states it does not work. Patient states that he has not had any black or bloody stools that he knows of. He is not anticoagulated although he has a history of paroxysmal A. fib/a flutter and he states this is because he is a fall risk due to his chronic dizziness. He states that a couple of years ago he fell and hit his head and had intracranial bleed. He states he 5 followed up with his brain doctor. He states that everything is clear up to. He states he has not had any other falls. [facility] Medical History (HFpEF) heart failure with preserved ejection fraction (12/12/20) Acute respiratory failure with hypoxia Anemia Anemia of chronic renal failure, stage 3 (moderate) Anxiety and depression Atherosclerotic heart disease of unga coronary artery without angina pectoris Atrial flutter Back pain BMI 34.0-34.9,adult BPH (benign prostatic hyperplasia) BPPV (benign paroxysmal positional vertigo) Cardiac dysrhythmia Cardiology follow-up encounter De Quervain's tenosynovitis Depression Dermatitis Diabetes mellitus Diabetic kidney disease Dizziness DM type 2 with diabetic peripheral neuropathy DVT (deep venous thrombosis) Dyslipidemia Dysphagia Essential (primary) hypertension Fall Fracture of great toe Gastric reflux Health care maintenance History of echocardiogram History of edema History of GI bleed History of peptic ulcer History of renal calculi History of ulceration HLD (hyperlipidemia) Injury of head and neck Iron deficiency anemia Iron deficiency anemia due to chronic blood loss Kidney hematoma (12/08/20) Left knee pain Left leg DVT Loss of equilibrium Low iron Malaise Near syncope Orthostatic hypotension MACHELLE (obstructive sleep apnea) Pain of left lower extremity Paroxysmal atrial flutter Pneumonia Polypharmacy Prostate disease Psoriasis Renal calculi RLS (restless legs syndrome) Sex disorder Suicidal ideation SVT (supraventricular tachycardia) Urolithiasis Vertigo Walker as ambulation aid Wears glasses Home Medications finasteride 5 mg tablet 5 mg PO DAILY PROSTATE #90 tabs 11/03/18 [Rx Last Taken 08/05/21] apremilast 30 mg tablet (Otezla) 30 mg PO BID arthritis 11/22/20 [History Last Taken 08/05/21] acetaminophen 325 mg tablet (Tylenol) 650 mg PO Q4H PRN PRN Pain 1-10 Or Fever #0 tabs 12/15/20 [Rx Last Taken Unknown] blood sugar diagnostic #100 ea 01/04/21 [Rx Last Taken Unknown] blood pressure monitor #1 ea 03/13/21 [Rx Last Taken Unknown] amlodipine 10 mg tablet 10 mg PO DAILY #90 tabs 08/20/21 [Rx Last Taken Unknown] hydralazine 25 mg tablet 25 mg PO BID #180 tabs 08/20/21 [Rx Last Taken Unknown] dulaglutide 4.5 mg/0.5 mL subcutaneous pen injector 4.5 mg (0.5 mL) subcut .COMPLEX 3 months #2 mL 09/12/21 [Rx Last Taken Unknown] pantoprazole 40 mg tablet,delayed release 40 mg PO DAILY 90 days #90 tabs [Rx Last Taken Unknown] lancets 30 gauge (OneTouch Delica Lancets) #200 ea 10/26/21 [Rx Last Taken Unknown] pramipexole 1 mg tablet (Mirapex) 2 mg PO QHS RLS #180 tabs 12/10/21 [Rx Last Taken Unknown] simvastatin 20 mg tablet 20 mg PO QHS #90 tabs 12/10/21 [Rx Last Taken Unknown] ergocalciferol (vitamin D2) 1,250 mcg (50,000 unit) capsule 50,000 unit PO QMONTH #12 caps 01/01/22 [Rx Last Taken Unknown] pen needle, diabetic 31 gauge x 3/16 (BD Bambuser-Fine Mini Pen Needle) #100 ea 01/23/22 [Rx Last Taken Unknown] diazepam 5 mg tablet 5 mg PO Q8 PRN Vertigo #15 tabs 01/30/22 [Rx Last Taken Unknown] insulin glargine 100 unit/mL (3 mL) subcutaneous pen (Lantus Solostar U-100 Insulin) 30 unit (0.3 mL) subcut QAM 3 months #27 mL 02/05/22 [Rx Last Taken Unknown] docusate sodium 100 mg capsule (Stool Softener) 100 mg PO DAILY stool softner 02/12/22 [History Last Taken Unknown] ferrous sulfate 325 mg (65 mg iron) tablet 325 mg PO Q OTHER DAY supplement 02/12/22 [History Last Taken Unknown] metoprolol succinate 25 mg tablet,extended release 24 hr 50 mg PO BID 90 days #180 tabs 02/12/22 [Rx Last Taken Unknown] olmesartan 20 mg tablet 20 mg PO DAILY #90 tabs 03/18/22 [Rx Last Taken Unknown] progesterone micronized 100 mg capsule 100 mg PO QAM #90 caps 03/18/22 [Rx Last Taken Unknown] furosemide 20 mg tablet 40 mg PO DAILY 03/27/22 [History Last Taken Unknown] flecainide 100 mg tablet 100 mg PO Q12H HEART RATE #180 tabs 04/01/22 [Rx Last Taken Unknown] sertraline 25 mg tablet 25 mg PO DAILY 04/05/22 [History Last Taken Unknown] Allergy/AdvReac Type Severity Reaction Status Date / Time hydrocodone bitartrate AdvReac Severe Other Verified 04/05/22 10:39 [From Vicodin] hydroxyzine AdvReac Severe Other Verified 04/05/22 10:39 Family History Father Diabetes Hypertension Cancer Lung cancer Mother Hypertension CVA (cerebral vascular accident) Sister Diabetes Son Diabetes Surgical History History of cardioversion (2015) History of cataract surgery History of left heart catheterization (02/16/13) History of lithotripsy (11/2020) History of radiofrequency ablation procedure for cardiac arrhythmia (02/05/06) history of right knee cap fracture History of right knee surgery Status post laser lithotripsy of ureteral calculus Status post left foot surgery STENT PLACEMENT FOR KIDNEY STONE Social History Smoking Status: Never smoker how long ago did patient quit smokin second hand exposure: No alcohol intake: never substance use type: does not use caffeine: No what type of physical activity do you participate in: none seatbelt use: always do you feel safe at home: Yes EXAM Physical Exam Const Vital Signs: 04/12/22 13:11 04/12/22 13:20 04/12/22 13:29 Temperature 97.8 F Temperature Source Oral Pulse Rate 58 L Respiratory Rate 18 Respiratory Effort Normal Blood Pressure 143/59 H Blood Pressure Mean 87 Pulse Ox 97 Oxygen Delivery Method Room Air Room Air 04/12/22 14:32 Temperature Temperature Source Pulse Rate 63 Respiratory Rate 18 Respiratory Effort Blood Pressure 123/85 H Blood Pressure Mean 97 Pulse Ox 94 Oxygen Delivery Method Room Air Positive well nourished General Appearance ED: NAD; Negative for pallor HEENT Reports TM's clear and moist mucous membranes normocephalic Tympanic Membrane ED: Yes TM's clear Eyes PERRL and EOMs intact bilaterally Eyes Narrative: Vertiginous dizziness and nystagmus with Juve Hallpike Chest Wall Chest Narrative: 1 focal area of tenderness to palpation in the left upper chest wall which is about 1 cm and circular. No ecchymosis, bruising, swelling. Equal symmetric breath sounds and chest wall rise. Resp normal respiratory effort and clear to auscultation bilaterally Cardio regular rhythm Rate: bradycardia GI normal to inspection, nondistended, normoactive bowel sounds Extremity normal to inspection General Extremety ED: Negative for edema General Extremity: Negative for edema Neuro oriented x3 and CN's II-XII intact bilaterally Sensorium / Orientation: awake and alert Motor Exam: strength 5/5 throughout Psych mental status grossly normal Skin General Skin Exam: Negative for jaundice or pallor Heart Score History: Slightly/Non-Suspicious ECG: Normal Age: >/= 65 years Risk Factors: >/= 3 Risk Factors or History of CAD Troponin: </= Normal Limit Score: 4 MDM MDM MDM Narrative Medical decision making narrative: Patient presents with 1 focal area of chest pain in the left upper chest wall which is tender to palpation. States started this morning but he also had a couple episodes yesterday while he was tinkering in his garage. Patient also complains of vertiginous symptoms are chronic for him. He states that nothing helps with this. He states that the symptoms do come and go. He denies any head trauma. He does have a history of intracranial bleed secondary to head trauma but states he followed up with his neurosurgeon and was told everything had cleared up. I obtained an EKG on arrival and his heart rate is sinus bradycardia with a heart rate of 58 bpm with a first-degree AV block noted on my interpretation. Chest x-ray does not show any acute cardiopulmonary process on my interpretation and the radiologist agree. CT of the brain was negative for acute findings. Chest x-ray on my interpretation shows no acute cardiopulmonary process and the radiologist agree. CBC is unremarkable. Creatinine near baseline. Electrolytes are normal. Patient states that meclizine does not help for his dizziness. I did give him some Phenergan to help with the nausea associated. He previously been given Valium in the past but given the fact that he is a fall risk status at home felt comfortable giving him this. His cardiac work-up was ultimately normal. He has reproducible chest pain so I do not believe this is a cardiac in nature. Not tachycardic, tachypneic, hypoxic. I have low clinical suspicion for PE. I did review the medical record and this vertigo that he is having is chronic. He reported to me that he did not want to get out of his chair to get his Tylenol for pain nor did he want to walk across the room to get meclizine. I did juvenile counselor him that if he ever has a concern for cardiac etiology he is always welcome to the ER but it is reasonable also to try home medications that he has for symptoms. He then stated to me that he had seen ENT in follow-up and they did not have any other help for him. I did offer him admission should he think that he was too unstable to go home and he states he felt he had enough that he was discharged. Impression: 1. acute on chronic vertigo 2. Chest pain?noncardiac okay 3. Nausea Lab Data Attestation: I reviewed the patient's lab results. Labs: Laboratory Results - last 24 hr 04/12/22 04/12/22 13:00 13:00 WBC 7.1 RBC 3.92 L Hgb 11.5 L Hct 36.7 L MCV 93.6 MCH 29.3 MCHC 31.3 L RDW Std Deviation 46.4 H RDW Coeff of Flavio 13.6 Plt Count 201 MPV 9.6 Immature Gran % (Auto) 0.400 Neut % (Auto) 63.2 Lymph % (Auto) 25.5 [place] % (Auto) 7.4 Eos % (Auto) 2.8 Baso % (Auto) 0.7 Absolute Neuts (auto) 4.5 Absolute Lymphs (auto) 1.80 Nucleated RBC % 0 Sodium 142 Potassium 4.1 Chloride 111 H Carbon Dioxide 28.0 Anion Gap 3 L BUN 24 H Creatinine 1.31 H Estim Creat Clear Calc 47.72 Est GFR (MDRD) Af Amer 67 Est GFR (MDRD) Non-Af 56 L BUN/Creatinine Ratio 18.3 Glucose 109 H Calcium 9.2 Troponin I High Sens 14 Radiography Diagnostic Testing: Clinical Impression(s) from Imaging Studies Brain CT 04/12/22 13:29 IMPRESSION: Chronic involutional changes of the brain. Stable appearance of the soft tissue prominence overlying the right occipital bone. Electronically Signed: Leo Fay MD at 14:06 EDT , Chest X-Ray 04/12/22 13:47 IMPRESSION: Mild degree of increased linear markings at the lung bases suggestive of linear atelectasis and/or scarring. Cardiomegaly. Electronically Signed: Leo Fay MD at 14:01 EDT , Discharge Plan Triage Chief Complaint: Chest Pain ED Provider: Nghia Smith Dx/Rx/DC Orders Prescriptions: No Action (DME) blood pressure monitor Kit See Rx Instructions .ROUTE .MEDSUPPLY Qty: 1 0RF Rx Instructions: check blood pressure daily metoprolol succinate 25 mg tablet extended release 24 hr 50 mg PO BID 90 Days Qty: 180 3RF pantoprazole 40 mg tablet,delayed release (DR/EC) 40 mg PO DAILY 90 Days Qty: 90 3RF (DME) lancets [OneTouch Delica Lancets] 30 gauge misc See Rx Instructions .ROUTE .MEDSUPPLY Qty: 200 3RF Rx Instructions: check blood sugar tid for type 2 DM simvastatin 20 mg tablet 20 mg PO QHS Qty: 90 3RF pramipexole [Mirapex] 1 mg tablet 2 mg PO QHS Qty: 180 3RF sertraline 25 mg tablet 25 mg PO DAILY Otezla 30 MG tablet 30 mg PO BID acetaminophen [Tylenol] 325 mg Tablet 650 mg PO Q4H PRN PRN (Reason: Pain 1-10 Or Fever) Qty: 0 0RF ferrous sulfate 325 mg (65 mg iron) tablet 325 mg PO Q OTHER DAY docusate sodium [Stool Softener] 100 mg capsule 100 mg PO DAILY diazepam 5 mg tablet 5 mg PO Q8 PRN (Reason: Vertigo) Qty: 15 0RF furosemide 20 mg tablet 40 mg PO DAILY Rx Instructions: 40mg PO BID x2 days followed by Lasix 40mg PO Daily in the AM finasteride 5 mg tablet 5 mg PO DAILY Qty: 90 3RF (DME) blood sugar diagnostic Strip See Rx Instructions .ROUTE .MEDSUPPLY Qty: 100 0RF Rx Instructions: One Touch Leena test strip, use to test blood sugar 3 times daily. Dx E11.42 amlodipine 10 mg tablet 10 mg PO DAILY Qty: 90 3RF hydralazine 25 mg tablet 25 mg PO BID Qty: 180 3RF dulaglutide 4.5 mg/0.5 mL pen injector 4.5 mg SC .COMPLEX 90 Days Qty: 2 2RF Rx Instructions: 4.5 mg subcut every friday ergocalciferol (vitamin D2) 1,250 mcg (50,000 unit) capsule 50,000 unit PO QMONTH Qty: 12 0RF (DME) pen needle, diabetic [BD Ultra-Fine Mini Pen Needle] 31 gauge x 3/16 needle See Rx Instructions .ROUTE .MEDSUPPLY Qty: 100 3RF Rx Instructions: daily for type 2 dm Lantus Solostar U-100 Insulin 100 unit/mL (3 mL) insulin pen 30 unit subcut QAM 90 Days Qty: 27 2RF olmesartan 20 mg tablet 20 mg PO DAILY Qty: 90 1RF progesterone micronized 100 mg capsule 100 mg PO QAM Qty: 90 0RF flecainide 100 mg tablet 100 mg PO Q12H Qty: 180 2RF Primary Care Provider: Tosha Shrestha Referrals: Tosha Shrestha MD [Primary Care Provider] -
[2022-04-12] MEDS: proMETHazine 25 MG/ML Syringe 12.5 MG IM (13:36)
[2022-04-12 13:43] LABS: Absolute Neutrophil Count 4.5 X10^3/uL (2.0-7.7); Basophil# 0.05 X10^3/uL; Basophil% 0.7 % (0-1); Eosinophils% 2.8 % (0-5); Hematocrit 36.7 % (40-54); Hemoglobin 11.5 g/dL (13.0-16.5); Lymphocyte % 25.5 % (19-41); Mean Corp Hgb Conc 31.3 g/dL (32-36); Mean Corpuscular Hgb 29.3 pg (27.0-32.0); Mean Corpuscular Volume 93.6 fL (80-94); Mean Platelet Vol. 9.6 fl (6.2-12.0); Monocyte# 0.52 X10^3/uL; Monocyte% 7.4 % (0-10); NRBC Flagged by Analyzer 0 % (0-5); Neutrophil # 4.47 X10^3/uL (2.7-7.7); Neutrophil % 63.2 % (47-70); Platelet Count 201 K/mm3 (150-450); RBC Distribution Width CV 13.6 % (11.6-14.6); RBC Distribution Width SD 46.4 fl (35.1-43.9); Red Blood Count 3.92 M/mm3 (4.6-6.2); White Blood Count 7.1 K/mm3 (4.4-11.0)
--- NOTE | 2022-04-12 13:47 | RAD_ITS ---
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 Chest pain TECHNIQUE: Single AP portable view of the chest. COMPARISON: Comparison is made with prior study dated 01/30/2022. FINDINGS: EKG electrodes are seen. Mild degree of increased linear markings at the lung bases suggestive of atelectasis and/or scarring. There is no demonstrated pleural abnormality. There is moderate cardiac enlargement. Normal mediastinum and lakhwinder. Normal visualized pulmonary arteries. There is atherosclerotic calcification of the aortic arch with tortuosity. There are diffuse degenerative changes of the visualized thoracic spine. Normal visualized ribs, clavicles, and shoulders. There is no demonstrated abnormality of the visualized soft tissue structures of the upper abdomen. RAD/Chest 1 View (Portable) IMPRESSION: Mild degree of increased linear markings at the lung bases suggestive of linear atelectasis and/or scarring. Cardiomegaly. Electronically Signed: Leo Fay MD at 14:01 EDT ,
[2022-04-12 13:59] LABS: Anion Gap 3 (5-15); BUN 24 mg/dL (7-18); BUN/Creat Ratio 18.3 RATIO (10-20); Calcium,Total 9.2 mg/dL (8.5-10.1); Chloride 111 mmol/L (98-107); Creatinine, Serum 1.31 mg/dL (0.70-1.30); EST Glomerular Filtration Rate 56 mL/min (>60); Est Glom Filt Rate - Afr Amer 67 mL/min (>60); Estimated Creatinine Clearance 47.72 ml/min; Glucose 109 mg/dL (74-106); Potassium 4.1 mmol/L (3.5-5.1); Sodium Level 142 mmol/L (136-145); Troponin-I HS (w/2H Reflex) 14 pg/mL (3.0-78.0)
[2022-04-12 14:32] VITALS: BP 123/85; PULSE 63; RESP 18; O2SAT 94
[2022-04-12 15:39] LABS: Reflex Troponin-HS? (from REC) Y
[2022-04-12 17:37] VITALS: BP 132/53; PULSE 60; RESP 16; O2SAT 96
== END 2022-04-12 18:12 | disposition home or self-care (01) ==
PROVIDERS: Emergency Provider Student in an Organized Health Care Education/Training Program; PCP Internal Medicine; Visit Provider Student in an Organized Health Care Education/Training Program
DX: R42 Dizziness and giddiness (principal); N18.30 Chronic kidney disease, stage 3 unspecified; R07.89 Other chest pain; R11.0 Nausea; I25.10 Atherosclerotic heart disease of native coronary artery without angina pectoris; G47.33 Obstructive sleep apnea (adult) (pediatric); Z86.718 Personal history of other venous thrombosis and embolism
CPT/HCPCS: 70450; 71045; 80048; 84484; 85025; 93005; 96372; 99285; A4216

== ENCOUNTER → 2022-04-30 | Outpatient (CLI) | payer MEDICARE, BC, SELFPAY ==
[2022-04-30 12:21] LABS: Hematocrit 37.9 % (40-54); Hemoglobin 11.9 g/dL (13.0-16.5); Mean Corp Hgb Conc 31.4 g/dL (32-36); Mean Corpuscular Hgb 29.2 pg (27.0-32.0); Mean Corpuscular Volume 93.1 fL (80-94); Mean Platelet Vol. 9.5 fl (6.2-12.0); Platelet Count 224 K/mm3 (150-450); RBC Distribution Width CV 13.8 % (11.6-14.6); RBC Distribution Width SD 47.1 fl (35.1-43.9); Red Blood Count 4.07 M/mm3 (4.6-6.2); White Blood Count 8.9 K/mm3 (4.4-11.0)
[2022-04-30 13:02] LABS: Albumin, Serum 3.4 g/dL (3.2-5.0); BUN 33 mg/dL (7-18); BUN/Creat Ratio 23.2 RATIO (10-20); Calcium,Total 9.2 mg/dL (8.5-10.1); Chloride 110 mmol/L (98-107); Creatinine, Serum 1.42 mg/dL (0.70-1.30); EST Glomerular Filtration Rate 51 mL/min (>60); Est Glom Filt Rate - Afr Amer 61 mL/min (>60); Glucose 167 mg/dL (74-106); Phosphorus 3.1 mg/dL (2.5-4.9); Potassium 4.4 mmol/L (3.5-5.1); Protein, Urine (Random) 96.6 mg/dL (<11.9); Protein:Creat Ratio 1756 mg/g CRE (0-200); Sodium Level 141 mmol/L (136-145)
== END | disposition home or self-care (01) ==
LOC: LAB 11:54
PROVIDERS: PCP Internal Medicine; Visit Provider Internal Medicine Nephrology
DX: E11.22 Type 2 diabetes mellitus with diabetic chronic kidney disease (principal); E11.21 Type 2 diabetes mellitus with diabetic nephropathy; N18.31 Chronic kidney disease, stage 3a
CPT/HCPCS: 36415; 80069; 82570; 84156; 85027

== ENCOUNTER → 2022-05-06 | Outpatient (CLI) | payer MEDICARE, BC, SELFPAY ==
[2022-05-06 11:36] LABS: Absolute Lymphocyte Count 1.64 X10^3/uL (0.83-4.51); Absolute Neutrophil Count 4.5 X10^3/uL (2.0-7.7); Basophil# 0.05 X10^3/uL; Basophil% 0.7 % (0-1); Eosinophil# 0.15 X10^3/uL; Eosinophils% 2.2 % (0-5); Hematocrit 35.7 % (40-54); Hemoglobin 11.3 g/dL (13.0-16.5); Lymphocyte # 1.64 X10^3/ul (0.83-4.51); Lymphocyte % 23.9 % (19-41); Mean Corp Hgb Conc 31.7 g/dL (32-36); Mean Corpuscular Hgb 29.6 pg (27.0-32.0); Mean Corpuscular Volume 93.5 fL (80-94); Mean Platelet Vol. 9.4 fl (6.2-12.0); Monocyte# 0.44 X10^3/uL; Monocyte% 6.4 % (0-10); NRBC Flagged by Analyzer 0 % (0-5); Neutrophil # 4.53 X10^3/uL (2.7-7.7); Neutrophil % 66.2 % (47-70); Platelet Count 201 K/mm3 (150-450); RBC Distribution Width CV 13.5 % (11.6-14.6); RBC Distribution Width SD 46.2 fl (35.1-43.9); Red Blood Count 3.82 M/mm3 (4.6-6.2); White Blood Count 6.9 K/mm3 (4.4-11.0)
[2022-05-06 12:55] LABS: ALB/GLOB Ratio 0.8 RATIO (0.9-2.4); AST(SGOT) 15 U/L (15-37); Alanine Aminotransfer ALT/SGPT 21 U/L (16-61); Albumin, Serum 3.2 g/dL (3.2-5.0); Alkaline Phosphatase 71 U/L (45-117); Anion Gap 8 (5-15); BUN 31 mg/dL (7-18); BUN/Creat Ratio 19.7 RATIO (10-20); Calcium,Total 8.8 mg/dL (8.5-10.1); Chloride 113 mmol/L (98-107); Creatinine, Serum 1.57 mg/dL (0.70-1.30); EST Glomerular Filtration Rate 45 mL/min (>60); Est Glom Filt Rate - Afr Amer 55 mL/min (>60); Globulin 3.8 g/dL (2.2-4.2); Glucose 181 mg/dL (74-106); Potassium 4.2 mmol/L (3.5-5.1); Sodium Level 143 mmol/L (136-145)
== END | disposition home or self-care (01) ==
LOC: LAB 11:00
PROVIDERS: PCP Internal Medicine; Referring Provider Internal Medicine Rheumatology; Visit Provider Internal Medicine Rheumatology
DX: L40.59 Other psoriatic arthropathy (principal); L40.8 Other psoriasis; M21.40 Flat foot [pes planus] (acquired), unspecified foot; K76.0 Fatty (change of) liver, not elsewhere classified; M17.0 Bilateral primary osteoarthritis of knee; I12.9 Hypertensive chronic kidney disease with stage 1 through stage 4 chronic kidney disease, or unspecified chronic kidney disease; N18.9 Chronic kidney disease, unspecified; N20.0 Calculus of kidney; G25.81 Restless legs syndrome; G47.33 Obstructive sleep apnea (adult) (pediatric); N40.1 Benign prostatic hyperplasia with lower urinary tract symptoms; Z86.718 Personal history of other venous thrombosis and embolism
CPT/HCPCS: 36415; 80053; 85025

== ENCOUNTER 2022-06-13 04:26 | Emergency (ER) | payer MEDICARE, BC, SELFPAY ==
[2022-06-13 04:29] VITALS: BP 160/64; PULSE 60; RESP 16; TEMP 36.1; O2SAT 96; BMI 38.5
--- NOTE | 2022-06-13 04:40 | RAD_ITS ---
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 chest pain TECHNIQUE: Single AP portable view of the chest. COMPARISON: None. FINDINGS: Increased perihilar interstitial markings in both lungs suggesting mild pulmonary edema. There is no demonstrated pleural abnormality. Normal size heart. Normal mediastinum and lakhwinder. Normal visualized pulmonary arteries. Normal visualized aortic arch and descending thoracic aorta. Normal visualized thoracic spine. Normal visualized ribs, clavicles, and shoulders. There is no demonstrated abnormality of the visualized soft tissue structures of the upper abdomen. RAD/Chest 1 View (Portable) IMPRESSION: Mild pulmonary edema. Electronically Signed: Jake Resendiz MD at 5:18 EDT ,
--- NOTE | 2022-06-13 04:40 | EKG12_ITS ---
Test Reason : LEFT ARM PAIN Blood Pressure : / mmHG Vent. Rate : 058 BPM Atrial Rate : 058 BPM P-R Int : 136 ms QRS Dur : 102 ms QT Int : 474 ms P-R-T Axes : 042 069 061 degrees QTc Int : 465 ms Sinus bradycardia Nonspecific ST abnormality Abnormal ECG Confirmed by AVILA DUNCAN, ALBERTO ([id number]), purchasing expeditor NITZA ROJAS ([id number]) on 06/14/2022 2:30:48 P M Referred By: Confirmed By:SCARLETT GRAMAJO MD
--- NOTE | 2022-06-13 04:41 | EDS_ITS ---
HPI History of Present Illness Chief Complaint: General Illness Narrative Narrative: 81-year-old male presents via EMS with complaints of left arm pain. He states it is an achy type of pain that began at around 2:00 in the morning, 2-1/2 hours ago. It woke him from sleep. He states he woke up in a sweat. He does not really have nausea or vomiting, no shortness of breath. He does have history of DVT but is not on blood thinners. He also has atrial fibrillation. According to his EMR, he has hypertension and a flutter along with hyperlipidemia. He states he has a generalized weakness where he had difficulty getting up and using his walker to go to the bathroom. He denies any fevers or chills. No dysuria or hematuria, no other symptoms. He called EMS because of his left arm pain that feels better when he puts it at his side. He denies any chest pain or pressure. No headaches, no neck pain. 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 Atrial flutter Atypical chest pain Back pain BMI 34.0-34.9,adult BPH (benign prostatic hyperplasia) BPPV (benign paroxysmal positional vertigo) Cardiac dysrhythmia Cardiology follow-up encounter De Quervain's tenosynovitis Depression Dermatitis Diabetes mellitus Diabetic kidney disease Dizziness DM type 2 with diabetic peripheral neuropathy DVT (deep venous thrombosis) Dyslipidemia Dysphagia Essential (primary) hypertension Fall Fracture of great toe Gastric reflux Health care maintenance History of echocardiogram History of edema History of GI bleed History of peptic ulcer History of renal calculi History of ulceration HLD (hyperlipidemia) Injury of head and neck Iron deficiency anemia Iron deficiency anemia due to chronic blood loss Kidney hematoma (12/08/20) Left knee pain Left leg DVT Loss of equilibrium Low iron Malaise Near syncope Orthostatic hypotension MACHELLE (obstructive sleep apnea) Pain of left lower extremity Paroxysmal atrial flutter Pneumonia Polypharmacy Prostate disease Psoriasis Renal calculi RLS (restless legs syndrome) Sex disorder Suicidal ideation SVT (supraventricular tachycardia) Urolithiasis Vertigo Walker as ambulation aid Wears glasses Home Medications finasteride 5 mg tablet 5 mg PO DAILY PROSTATE #90 tabs 11/03/18 [Rx Last Taken 08/05/21] apremilast 30 mg tablet (Otezla) 30 mg PO BID arthritis 11/22/20 [History Last Taken 08/05/21] acetaminophen 325 mg tablet (Tylenol) 650 mg PO Q4H PRN PRN Pain 1-10 Or Fever #0 tabs 12/15/20 [Rx Last Taken Unknown] blood sugar diagnostic #100 ea 01/04/21 [Rx Last Taken Unknown] blood pressure monitor #1 ea 03/13/21 [Rx Last Taken Unknown] hydralazine 25 mg tablet 25 mg PO BID #180 tabs 08/20/21 [Rx Last Taken Unknown] pantoprazole 40 mg tablet,delayed release 40 mg PO DAILY 90 days #90 tabs 10/09/21 [Rx Last Taken Unknown] lancets 30 gauge (ConveneerTouch Delica Lancets) #200 ea 10/26/21 [Rx Last Taken Unknown] pramipexole 1 mg tablet (Mirapex) 2 mg PO QHS RLS #180 tabs 12/10/21 [Rx Last Taken Unknown] simvastatin 20 mg tablet 20 mg PO QHS #90 tabs 12/10/21 [Rx Last Taken Unknown] ergocalciferol (vitamin D2) 1,250 mcg (50,000 unit) capsule 50,000 unit PO QMONTH #12 caps 01/01/22 [Rx Last Taken Unknown] pen needle, diabetic 31 gauge x 3/16 (BD Ultra-Fine Mini Pen Needle) #100 ea 01/23/22 [Rx Last Taken Unknown] diazepam 5 mg tablet 5 mg PO Q8 PRN Vertigo #15 tabs 01/30/22 [Rx Last Taken Unknown] olmesartan 20 mg tablet 20 mg PO DAILY #90 tabs 03/18/22 [Rx Last Taken Unknown] progesterone micronized 100 mg capsule 100 mg PO QAM #90 caps 03/18/22 [Rx Last Taken Unknown] furosemide 20 mg tablet 40 mg PO DAILY 03/27/22 [History Last Taken Unknown] flecainide 100 mg tablet 100 mg PO Q12H HEART RATE #180 tabs 04/01/22 [Rx Last Taken Unknown] sertraline 25 mg tablet 25 mg PO DAILY 04/05/22 [History Last Taken Unknown] sucralfate 100 mg/mL oral suspension (Carafate) 10 ml PO BID #200 mL 04/12/22 [Rx Last Taken Unknown] ferrous sulfate 325 mg (65 mg iron) tablet 325 mg PO Q OTHER DAY supplement 05/15/22 [History Last Taken Unknown] insulin glargine 100 unit/mL (3 mL) subcutaneous pen (Semglee Pen U-100 Insulin) 30 unit subcut QAM 05/15/22 [History Last Taken Unknown] metoprolol succinate 25 mg tablet,extended release 24 hr 75 mg PO BID 05/15/22 [History Last Taken Unknown] amlodipine 10 mg tablet 10 mg PO DAILY #90 tabs 05/31/22 [Rx Last Taken Unknown] dulaglutide 4.5 mg/0.5 mL subcutaneous pen injector 4.5 mg (0.5 mL) subcut .COMPLEX 3 months #2 mL 05/31/22 [Rx Last Taken Unknown] Allergy/AdvReac Type Severity Reaction Status Date / Time hydrocodone bitartrate AdvReac Severe Other Verified 06/13/22 04:34 [From Vicodin] hydroxyzine AdvReac Severe Other Verified 06/13/22 04:34 Family History Father Diabetes Hypertension Cancer Lung cancer Mother Hypertension CVA (cerebral vascular accident) Sister Diabetes Son Diabetes Surgical History History of cardioversion (2015) History of cataract surgery History of left heart catheterization (02/16/13) History of lithotripsy (11/2020) History of radiofrequency ablation procedure for cardiac arrhythmia (02/05/06) history of right knee cap fracture History of right knee surgery Status post laser lithotripsy of ureteral calculus Status post left foot surgery STENT PLACEMENT FOR KIDNEY STONE Social History Smoking Status: Never smoker how long ago did patient quit smokin second hand exposure: No alcohol intake: never substance use type: does not use caffeine: No what type of physical activity do you participate in: none seatbelt use: always do you feel safe at home: Yes ROS ROS ED ROS Narrative Constitutional: No fever, no chills. Woke up in a sweat. HEENT: No sore throat. No neck pain. No loss of vision. No rhinorrhea. Cardiovascular: No chest pain. No palpitations. No pedal edema. Respiratory: No cough, no shortness of breath. Abdominal: No abdominal pain. No nausea. No vomiting. Genitourinary: No dysuria. No hematuria. Musculoskeletal: No myalgias. No arthralgias. Left arm pain. Neurologic: No headaches. No dizziness. No lightheadedness. Skin: No rash. No change in color. Psychiatric: No depression. No anxiety. EXAM Physical Exam Narrative Exam Narrative: Afebrile. Vital signs noted. HEENT: Normocephalic. Atraumatic. PERRL, EOMI. Neck soft and supple. No point tenderness or step off. Cardiovascular: Regular rate and rhythm. No murmurs, rubs, or gallops appreciated. Respiratory: No tachypnea. Lungs clear to auscultation bilaterally. Gastrointestinal: Abdomen soft, nontender, with normoactive bowel sounds. No rebound or guarding. Neurological: Awake. Alert. Nonfocal, nonlateralizing. Skin: No rash. Normal color. No pallor. Musculoskeletal: No pedal edema. Full range of motion extremities. Palpable radial pulse. Const Vital Signs: 06/13/22 04:29 06/13/22 04:54 06/13/22 07:20 Temperature 97.0 F L Temperature Source Temporal Pulse Rate 60 55 L Respiratory Rate 16 23 H Blood Pressure 160/64 H 150/65 H Blood Pressure Mean 96 93 Pulse Ox 96 Oxygen Delivery Method Room Air Room Air Room Air MDM MDM MDM Narrative Medical decision making narrative: Chest pain work-up was pursued. Prehospital EKG demonstrates sinus bradycardia at 55 bpm without ectopy or acute ST changes. I reviewed his prior records. He was seen for chest pain in March of this year. He has history of vertigo and he is not on blood thinners because he is a fall risk. I do feel that his left arm pain may be more musculoskeletal. Additionally, his adds history that he has been working with his hands a lot and arms making something for a cat. EKG interpreted by myself demonstrates sinus bradycardia at 58 bpm without ectopy or acute ST changes. No STEMI. CBC is grossly normal with a normal whit e count of 7.5, hemoglobin stable 11.1, hematocrit 35.1. Normal platelet count of 154. Electrolyte panel shows chloride elevated at 111, BUN of 42 with a creatinine of 1.54. He does appear to have a chronic kidney injury. Glucose appropriately elevated at 152 with a normal anion gap of 7. Urinalysis shows no infection, I do not feel antibiotics are indicated. Chest x-ray interpreted by myself shows mild pulmonary edema, but the patient is on Lasix. There is no pneumothorax or infiltrate which I think requires antibiotic. Initial high- sensitivity troponin is 17. Repeat is 16. At this point in time, I am unsure as to the cause of his generalized weakness. I do think that his left arm pain once again may be more musculoskeletal in nature. I feel he be discharged safely home with follow-up. Regarding his weakness, I did offer admission/observation for him to be placed in rehabilitation versus residential, but he declined. Return instructions were reviewed. Disposition is di scharged home in stable condition. Lab Data Attestation: I reviewed the patient's lab results. Labs: Laboratory Results - last 24 hr 06/13/22 06/13/22 06/13/22 04:35 04:35 04:53 WBC 7.5 RBC 3.78 L Hgb 11.1 L Hct 35.1 L MCV 92.9 MCH 29.4 MCHC 31.6 L RDW Std Deviation 48.4 H RDW Coeff of Flavio 14.3 Plt Count 154 MPV 10.2 Immature Gran % (Auto) 0.500 Neut % (Auto) 68.4 Lymph % (Auto) 20.6 Swisher % (Auto) 7.7 Eos % (Auto) 2.3 Baso % (Auto) 0.5 Absolute Neuts (auto) 5.1 Absolute Lymphs (auto) 1.54 Nucleated RBC % 0 Sodium 140 Potassium 4.6 Chloride 111 H Carbon Dioxide 22.0 Anion Gap 7 BUN 42 H Creatinine 1.54 H Estim Creat Clear Calc 40.59 Est GFR (MDRD) Af Amer 56 L Est GFR (MDRD) Non-Af 46 L BUN/Creatinine Ratio 27.3 H Glucose 152 H Calcium 9.1 Troponin I High Sens 17 Urine Color Yellow Urine Clarity Clear Urine pH 6.0 Ur Specific [place] 1.015 Urine Protein 100 H Urine Glucose (UA) Normal Urine Ketones Negative Urine Occult Blood Negative Urine Nitrite Negative Urine Bilirubin Negative Urine Urobilinogen Normal Ur Leukocyte Esterase Negative Urine RBC 0 SEEN Urine WBC 0 SEEN Ur Squamous Epith Cells 0 SEEN Urine Bacteria RARE Urine Mucus 0 SEEN 06/13/22 07:10 WBC RBC Hgb Hct MCV MCH MCHC RDW Std Deviation RDW Coeff of Flavio Plt Count MPV Immature Gran % (Auto) Neut % (Auto) Lymph % (Auto) Swisher % (Auto) Eos % (Auto) Baso % (Auto) Absolute Neuts (auto) Absolute Lymphs (auto) Nucleated RBC % Sodium Potassium Chloride Carbon Dioxide Anion Gap BUN Creatinine Estim Creat Clear Calc Est GFR (MDRD) Af Amer Est GFR (MDRD) Non-Af BUN/Creatinine Ratio Glucose Calcium Troponin I High Sens 16 Urine Color Urine Clarity Urine pH Ur Specific [place] Urine Protein Urine Glucose (UA) Urine Ketones Urine Occult Blood Urine Nitrite Urine Bilirubin Urine Urobilinogen Ur Leukocyte Esterase Urine RBC Urine WBC Ur Squamous Epith Cells Urine Bacteria Urine Mucus Radiography Diagnostic Testing: Clinical Impression(s) from Imaging Studies Chest X-Ray 06/13/22 04:40 IMPRESSION: Mild pulmonary edema. Electronically Signed: Jake Resendiz MD at 5:18 EDT , Discharge Plan Triage Chief Complaint: General Illness ED Provider: Choco Salazar Dx/Rx/DC Orders Clinical Impression: Arm pain, left, Weakness Instructions: ED Pain, Acute, Uncertain Cause, ED Weakness (Uncertain Cause) Prescriptions: No Action (DME) blood pressure monitor Kit See Rx Instructions .ROUTE .MEDSUPPLY Qty: 1 0RF Rx Instructions: check blood pressure daily pantoprazole 40 mg tablet,delayed release (DR/EC) 40 mg PO DAILY 90 Days Qty: 90 3RF (DME) lancets [OneTouch Delica Lancets] 30 gauge misc See Rx Instructions .ROUTE .MEDSUPPLY Qty: 200 3RF Rx Instructions: check blood sugar tid for type 2 DM simvastatin 20 mg tablet 20 mg PO QHS Qty: 90 3RF pramipexole [Mirapex] 1 mg tablet 2 mg PO QHS Qty: 180 3RF insulin glargine [Semglee Pen U-100 Insulin] 100 unit/mL (3 mL) insulin pen 30 unit subcut QAM metoprolol succinate 25 mg tablet extended release 24 hr 75 mg PO BID sertraline 25 mg tablet 25 mg PO DAILY Otezla 30 MG tablet 30 mg PO BID acetaminophen [Tylenol] 325 mg Tablet 650 mg PO Q4H PRN PRN (Reason: Pain 1-10 Or Fever) Qty: 0 0RF ferrous sulfate 325 mg (65 mg iron) tablet 325 mg PO Q OTHER DAY diazepam 5 mg tablet 5 mg PO Q8 PRN (Reason: Vertigo) Qty: 15 0RF furosemide 20 mg tablet 40 mg PO DAILY Rx Instructions: 40mg PO BID x2 days followed by Lasix 40mg PO Daily in the AM sucralfate [Carafate] 100 mg/mL suspension 10 ml PO BID Qty: 200 0RF finasteride 5 mg tablet 5 mg PO DAILY Qty: 90 3RF (DME) blood sugar diagnostic Strip See Rx Instructions .ROUTE .MEDSUPPLY Qty: 100 0RF Rx Instructions: One Touch Elena test strip, use to test blood sugar 3 times daily. Dx E11.42 hydralazine 25 mg tablet 25 mg PO BID Qty: 180 3RF ergocalciferol (vitamin D2) 1,250 mcg (50,000 unit) capsule 50,000 unit PO QMONTH Qty: 12 0RF (DME) pen needle, diabetic [BD Ultra-Fine Mini Pen Needle] 31 gauge x 3/16 needle See Rx Instructions .ROUTE .MEDSUPPLY Qty: 100 3RF Rx Instructions: daily for type 2 dm olmesartan 20 mg tablet 20 mg PO DAILY Qty: 90 1RF progesterone micronized 100 mg capsule 100 mg PO QAM Qty: 90 0RF flecainide 100 mg tablet 100 mg PO Q12H Qty: 180 2RF amlodipine 10 mg tablet 10 mg PO DAILY Qty: 90 3RF dulaglutide 4.5 mg/0.5 mL pen injector 4.5 mg SC .COMPLEX 90 Days Qty: 2 2RF Rx Instructions: 4.5 mg subcut every friday Primary Care Provider: Tosha Shrestha Referrals: Tosha Shrestha MD [Primary Care Provider] - 5-7 Days Disposition Disposition: Home, Self Care
[2022-06-13 04:51] LABS: Absolute Lymphocyte Count 1.54 X10^3/uL (0.83-4.51); Absolute Neutrophil Count 5.1 X10^3/uL (2.0-7.7); Basophil# 0.04 X10^3/uL; Basophil% 0.5 % (0-1); Eosinophil# 0.17 X10^3/uL; Eosinophils% 2.3 % (0-5); Hematocrit 35.1 % (40-54); Hemoglobin 11.1 g/dL (13.0-16.5); Lymphocyte # 1.54 X10^3/ul (0.83-4.51); Lymphocyte % 20.6 % (19-41); Mean Corp Hgb Conc 31.6 g/dL (32-36); Mean Corpuscular Hgb 29.4 pg (27.0-32.0); Mean Corpuscular Volume 92.9 fL (80-94); Mean Platelet Vol. 10.2 fl (6.2-12.0); Monocyte# 0.58 X10^3/uL; Monocyte% 7.7 % (0-10); NRBC Flagged by Analyzer 0 % (0-5); Neutrophil # 5.12 X10^3/uL (2.7-7.7); Neutrophil % 68.4 % (47-70); Platelet Count 154 K/mm3 (150-450); RBC Distribution Width CV 14.3 % (11.6-14.6); RBC Distribution Width SD 48.4 fl (35.1-43.9); Red Blood Count 3.78 M/mm3 (4.6-6.2); White Blood Count 7.5 K/mm3 (4.4-11.0)
[2022-06-13] MEDS: Aspirin 81 MG TAB.CHEW 324 MG PO (04:53)
[2022-06-13 04:56] LABS: Mucous, Urine 0 SEEN /hpf (<or=2+); Red Blood Cells-Urine 0 SEEN /hpf (0-5); Squamous Epithelial Cells - UA 0 SEEN /hpf (0-5); White Blood Cells 0 SEEN /hpf (0-5)
[2022-06-13 04:57] LABS: Color, Urine Yellow (Yellow); Glucose, Dipstick Normal (Normal); Ketone-Dipstick Negative (Negative); Leukocyte Esterase-Dipstick Negative /ul (Negative); Nitrite-Dipstick Negative (Negative); Occult Blood-Urine Negative /ul (Negative); Protein-Dipstick 100 mg/dl (Negative); Specific Gravity, Urine 1.015 (1.002-1.030); Urine Bilirubin Dipstick Negative (Negative); Urine Clarity Clear (Clear); Urine Urobilinogen Normal (Normal)
[2022-06-13 05:04] LABS: Bacteria RARE /hpf (None Seen)
[2022-06-13 05:09] LABS: Anion Gap 7 (5-15); BUN 42 mg/dL (7-18); BUN/Creat Ratio 27.3 RATIO (10-20); Calcium,Total 9.1 mg/dL (8.5-10.1); Chloride 111 mmol/L (98-107); Creatinine, Serum 1.54 mg/dL (0.70-1.30); EST Glomerular Filtration Rate 46 mL/min (>60); Est Glom Filt Rate - Afr Amer 56 mL/min (>60); Estimated Creatinine Clearance 40.59 ml/min; Glucose 152 mg/dL (74-106); Potassium 4.6 mmol/L (3.5-5.1); Sodium Level 140 mmol/L (136-145); Troponin-I HS (w/2H Reflex) 17 pg/mL (3.0-78.0)
[2022-06-13 06:48] LABS: Reflex Troponin-HS? (from REC) Y
[2022-06-13 07:20] VITALS: BP 150/65; PULSE 55; RESP 23
[2022-06-13 07:31] LABS: Troponin-I HS 16 pg/mL (3.0-78.0)
[2022-06-13 08:41] VITALS: BP 110/58; PULSE 48; RESP 18; O2SAT 96
== END 2022-06-13 08:45 | disposition home or self-care (01) ==
PROVIDERS: Emergency Provider Emergency Medicine; PCP Internal Medicine; Visit Provider Emergency Medicine
DX: M79.602 Pain in left arm (principal); I50.32 Chronic diastolic (congestive) heart failure; I13.0 Hypertensive heart and chronic kidney disease with heart failure and stage 1 through stage 4 chronic kidney disease, or unspecified chronic kidney disease; E11.42 Type 2 diabetes mellitus with diabetic polyneuropathy; E11.22 Type 2 diabetes mellitus with diabetic chronic kidney disease; I48.91 Unspecified atrial fibrillation; Z79.4 Long term (current) use of insulin; N18.30 Chronic kidney disease, stage 3 unspecified; R53.1 Weakness; I25.10 Atherosclerotic heart disease of native coronary artery without angina pectoris; E78.5 Hyperlipidemia, unspecified; G47.33 Obstructive sleep apnea (adult) (pediatric); K21.9 Gastro-esophageal reflux disease without esophagitis; Z86.718 Personal history of other venous thrombosis and embolism; Z79.899 Other long term (current) drug therapy
CPT/HCPCS: 71045; 80048; 81001; 84484; 85025; 93005; 99285; A4216

== ENCOUNTER 2022-06-19 01:40 | Inpatient (IN) | payer MEDICARE, BC, SELFPAY ==
[2022-06-19] VITALS (19 sets, daily range): BP systolic 135–198; BP diastolic 49–98; PULSE 57–70; RESP 15–26; TEMP 36.4–36.9; O2SAT 86–97; BMI 38.6; BMI 37.5
--- NOTE | 2022-06-19 02:21 | CT_ITS ---
STUDY: CT BRAIN WITHOUT CONTRAST REASON FOR EXAM: Male, 81 years old. head injury RADIATION DOSAGE (If Supplied By Facility): CTDIvol = ( 44.99 ) mGy, DLP = ( 846.73 ) mGycm TECHNIQUE: Transaxial CT imaging of the brain was performed without administration of intravenous contrast material. Individualized dose optimization techniques were used for this CT. COMPARISON: April 12, 2022. MRI brain August 06, 2021. FINDINGS: Mild right posterior parietal scalp swelling. Normal calvarium. There is mild cerebral atrophy with widening of the extra-axial spaces and ventricular dilatation. Normal white matter tracts of the cerebral hemispheres. Normal basal ganglia and thalami. Normal brainstem. Normal cerebellum. There is no intracranial hemorrhage. There are no findings of an acute ischemic infarction. Normal visualized paranasal sinuses. Chronic decreased aeration right mastoid air cells unchanged since July 2021. 3.7 x 2.1 cm focus of soft tissue within the right occipital subcutaneous soft tissue unchanged since July 2021. CT/Brain/Head without Contrast IMPRESSION: No acute intracranial abnormality. Minimal right posterior parietal scalp swelling. Electronically Signed: Daniel Kam MD at 3:38 EDT Reading Location ID and State: [id number] / , Service support ,
--- NOTE | 2022-06-19 02:21 | RAD_ITS ---
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 weakness TECHNIQUE: Single AP portable view of the chest. COMPARISON: June 13, 2022. January 27, 2022. July 07, 2021. FINDINGS: No focal infiltrates or effusions. No pneumothorax. Mild vascular congestion increased as compared to the prior study. There is mild cardiac enlargement. Normal mediastinum and lakhwinder. Normal visualized pulmonary arteries. Atherosclerotic calcification of the aortic arch. Normal visualized thoracic spine. Normal visualized ribs, clavicles, and shoulders. There is no demonstrated abnormality of the visualized soft tissue structures of the upper abdomen. RAD/Chest 1 View (Portable) IMPRESSION: Slight increase in mild vascular congestion. Stable mild cardiomegaly. Electronically Signed: Daniel Kam MD at 3:07 EDT Reading Location ID and State: [id number] / , Service support ,
--- NOTE | 2022-06-19 02:29 | EDS_ITS ---
HPI History of Present Illness Chief Complaint: Syncope Narrative Narrative: Patient presents by EMS after a syncopal episode at home, he was try to get out of bed and passed out he was having some upper airway congestion and his CPAP machine was clogging up up even more. No chest pain or palpitations. No recent fevers or chills. No back pain or tearing sensation or shortness of breath or pleuritic component. [facility] Medical History (HFpEF) heart failure with preserved ejection fraction (12/12/20) A-fib Acute respiratory failure with hypoxia Anemia Anemia of chronic renal failure, stage 3 (moderate) Anxiety and depression Atherosclerotic heart disease of [place] coronary artery without angina pectoris Atrial flutter Atypical chest pain Back pain BMI 34.0-34.9,adult BPH (benign prostatic hyperplasia) BPPV (benign paroxysmal positional vertigo) Cardiac dysrhythmia Cardiology follow-up encounter De Quervain's tenosynovitis Depression Dermatitis Diabetes mellitus Diabetic kidney disease Dizziness DM type 2 with diabetic peripheral neuropathy DVT (deep venous thrombosis) Dyslipidemia Dysphagia Essential (primary) hypertension Fall Fracture of great toe Gastric reflux Health care maintenance History of echocardiogram History of edema History of GI bleed History of peptic ulcer History of renal calculi History of ulceration HLD (hyperlipidemia) Injury of head and neck Iron deficiency anemia Iron deficiency anemia due to chronic blood loss Kidney hematoma (12/08/20) Left knee pain Left leg DVT Loss of equilibrium Low iron Malaise Near syncope Orthostatic hypotension MACHELLE (obstructive sleep apnea) Pain of left lower extremity Paroxysmal atrial flutter Pneumonia Polypharmacy Prostate disease Psoriasis Renal calculi RLS (restless legs syndrome) Sex disorder Suicidal ideation SVT (supraventricular tachycardia) Urolithiasis Vertigo Walker as ambulation aid Wears glasses Home Medications finasteride 5 mg tablet 5 mg PO DAILY PROSTATE #90 tabs 11/03/18 [Rx Last Taken 08/05/21] apremilast 30 mg tablet (Otezla) 30 mg PO BID arthritis 11/22/20 [History Last Taken 08/05/21] acetaminophen 325 mg tablet (Tylenol) 650 mg PO Q4H PRN PRN Pain 1-10 Or Fever #0 tabs 12/15/20 [Rx Last Taken Unknown] blood sugar diagnostic #100 ea 01/04/21 [Rx Last Taken Unknown] blood pressure monitor #1 ea 03/13/21 [Rx Last Taken Unknown] hydralazine 25 mg tablet 25 mg PO BID #180 tabs 08/20/21 [Rx Last Taken Unknown] pantoprazole 40 mg tablet,delayed release 40 mg PO DAILY 90 days #90 tabs 09/19 10/09 [Rx Last Taken Unknown] lancets 30 gauge (OneTouch Delica Lancets) #200 ea 10/26/21 [Rx Last Taken Unknown] pramipexole 1 mg tablet (Mirapex) 2 mg PO QHS RLS #180 tabs 12/10/21 [Rx Last Taken Unknown] simvastatin 20 mg tablet 20 mg PO QHS #90 tabs 12/10/21 [Rx Last Taken Unknown] ergocalciferol (vitamin D2) 1,250 mcg (50,000 unit) capsule 50,000 unit PO QMONTH #12 caps 01/01/22 [Rx Last Taken Unknown] pen needle, diabetic 31 gauge x 3/16 (BD Ultra-Fine Mini Pen Needle) #100 ea 01/23/22 [Rx Last Taken Unknown] diazepam 5 mg tablet 5 mg PO Q8 PRN Vertigo #15 tabs 01/30/22 [Rx Last Taken Un known] olmesartan 20 mg tablet 20 mg PO DAILY #90 tabs 03/18/22 [Rx Last Taken Unknown] progesterone micronized 100 mg capsule 100 mg PO QAM #90 caps 03/18/22 [Rx Last Taken Unknown] furosemide 20 mg tablet 40 mg PO DAILY 03/27/22 [History Last Taken Unknown] flecainide 100 mg tablet 100 mg PO Q12H HEART RATE #180 tabs 04/01/22 [Rx Last Taken Unknown] sertraline 25 mg tablet 25 mg PO DAILY 04/05/22 [History Last Taken Unknown] sucralfate 100 mg/mL oral suspension (Carafate) 10 ml PO BID #200 mL 04/12/22 [Rx Last Taken Unknown] ferrous sulfate 325 mg (65 mg iron) tablet 325 mg PO Q OTHER DAY supplement 05/15/22 [History Last Taken Unknown] insulin glargine 100 unit/mL (3 mL) subcutaneous pen (Semglee Pen U-100 Insulin) 30 unit subcut QAM 05/15/22 [History Last Taken Unknown] metoprolol succinate 25 mg tablet,extended release 24 hr 75 mg PO BID 05/15/22 [History Last Taken Unknown] amlodipine 10 mg tablet 10 mg PO DAILY #90 tabs 05/31/22 [Rx Last Taken Unknown] dulaglutide 4.5 mg/0.5 mL subcutaneous pen injector 4.5 mg (0.5 mL) subcut .COMPLEX 3 months #2 mL 05/31/22 [Rx Last Taken Unknown] Allergy/AdvReac Type Severity Reaction Status Date / Time hydrocodone bitartrate AdvReac Severe Other Verified 06/19/22 01:46 [From Vicodin] hydroxyzine AdvReac Severe Other Verified 06/19/22 01:46 Family History Father Diabetes Hypertension Cancer Lung cancer Mother Hypertension CVA (cerebral vascular accident) Sister Diabetes Son Diabetes Surgical History History of cardioversion (2015) History of cataract surgery History of left heart catheterization (02/16/13) History of lithotripsy (11/2020) History of radiofrequency ablation procedure for cardiac arrhythmia (02/05/06) history of right knee cap fracture History of right knee surgery Status post laser lithotripsy of ureteral calculus Status post left foot surgery STENT PLACEMENT FOR KIDNEY STONE Social History Smoking Status: Never smoker how long ago did patient quit smokin second hand exposure: No alcohol intake: never substance use type: does not use caffeine: No what type of physical activity do you participate in: none seatbelt use: always do you feel safe at home: Yes ROS ROS ED ROS Narrative Past medical history: Reviewed, it is quite extensive includes CKD, chronic dyspnea, chronic lightheadedness, hypertension, dysphagia, anemia, A. fib, diabetes he is currently not anticoagulated. Medications: Reviewed Social history: Noncontributory Review of systems: All systems negative except as indicated General: No fever Eyes: No visual changes ENT: No upper airway congestion, normal voice Neck: No neck pain Cardiovascular: No chest pain. No palpitations. Syncope as in HPI Respiratory: No shortness of breath or cough Gastrointestinal: No abdominal pain, nausea vomiting or diarrhea Genitourinary: No dysuria Musculoskeletal: Denies myalgias no difficulty with ambulation Skin: No rash Neurological: No memory loss, confusion or any focal weakness Psych: No recent behavioral changes Hematologic: No easy bleeding or easy bruising EXAM Physical Exam Narrative Exam Narrative: Physical exam General: Patient appears comfortable, however he appears chronically ill, he is quite unhealthy appearing including his BMI. Head: Normocephalic, Atraumatic Eyes: Conjunctiva not pale ENT: Moist mucous membranes. No signs of dehydration Neck: Supple, Nontender, No lymphadenopathy Cardiovascular: Regular rate, Regular rhythm, because of his body habitus and the ambient noise I cannot hear very well but I do not appreciate any obvious murmur. I hear an S1 and S2 but I cannot hear an S3 or S4 sound. Respiratory: Again quite difficult to assess but no respiratory distress and mostly clear breath sounds. Abdomen: Soft, Nontender, Nondistended Back: Nontender, Normal Inspection. Negative for: CVA tenderness Extremities: Nontender, No edema Skin: Normal color, No rash Neurological: Alert, Normal Strength, Normal Sensation Psychological: Normal affect Const Vital Signs: 06/19/22 01:41 06/19/22 01:58 06/19/22 02:29 Temperature 97.6 F L Temperature Source Temporal Pulse Rate 60 Pulse Rate [Lying] 63 Pulse Rate [Sitting (for 1 minute prior to obtaining)] 62 Pulse Rate [Standing (for 1 minute prior to obtaining)] 63 Respiratory Rate 16 Respiratory Effort Non-Labored Respiratory Pattern Normal Blood Pressure 160/59 H Blood Pressure [Lying] 151/60 H Blood Pressure [Sitting (for 1 minute prior to obtaining)] 146/59 H Blood Pressure [Standing (for 1 minute prior to obtaining)] 151/60 H Blood Pressure Mean 92 Blood Pressure Mean [Lying] 90 Blood Pressure Mean [Sitting (for 1 minute prior to obtaining)] 88 Blood Pressure Mean [Standing (for 1 minute prior to obtaining)] 90 Pulse Ox 96 Oxygen Delivery Method Room Air 06/19/22 03:07 Temperature Temperature Source Pulse Rate 62 Pulse Rate [Lying] Pulse Rate [Sitting (for 1 minute prior to obtaining)] Pulse Rate [Standing (for 1 minute prior to obtaining)] Respiratory Rate 22 H Respiratory Effort Respiratory Pattern Blood Pressure 151/60 H Blood Pressure [Lying] Blood Pressure [Sitting (for 1 minute prior to obtaining)] Blood Pressure [Standing (for 1 minute prior to obtaining)] Blood Pressure Mean 90 Blood Pressure Mean [Lying] Blood Pressure Mean [Sitting (for 1 minute prior to obtaining)] Blood Pressure Mean [Standing (for 1 minute prior to obtaining)] Pulse Ox 90 Oxygen Delivery Method Room Air MDM MDM MDM Narrative Medical decision making narrative: Patient's work-up is unremarkable however he has not had an echocardiogram since 2018, he has a history of atrial fibrillation, his heart rate is borderline bradycardic which could have caused his syncopal episode but he could also had a tachyarrhythmia. I believe it is reasonable to admit him for an echocardiogram and monitoring. Lab Data Labs: Laboratory Results - last 24 hr 06/19/22 06/19/22 01:54 01:54 WBC 5.9 RBC 3.57 L Hgb 10.9 L Hct 33.6 L MCV 94.1 H MCH 30.5 MCHC 32.4 RDW Std Deviation 48.9 H RDW Coeff of Flavio 14.1 Plt Count 161 MPV 9.3 Immature Gran % (Auto) 0.700 Neut % (Auto) 66.9 Lymph % (Auto) 21.9 [place] % (Auto) 7.1 Eos % (Auto) 2.7 Baso % (Auto) 0.7 Absolute Neuts (auto) 4.0 Absolute Lymphs (auto) 1.30 Nucleated RBC % 0 Sodium 142 Potassium 4.3 Chloride 112 H Carbon Dioxide 24.0 Anion Gap 6 BUN 33 H Creatinine 1.56 H Estim Creat Clear Calc 40.07 Est GFR (MDRD) Af Amer 55 L Est GFR (MDRD) Non-Af 45 L BUN/Creatinine Ratio 21.2 H Glucose 123 H Calcium 8.6 Total Bilirubin 0.50 AST 70 H ALT 65 H Alkaline Phosphatase 83 Troponin I High Sens 12 Total Protein 7.1 Albumin 3.3 Globulin 3.8 Albumin/Globulin Ratio 0.9 Radiography Diagnostic Testing: Clinical Impression(s) from Imaging Studies Chest X-Ray 06/19/22 02:21 IMPRESSION: Slight increase in mild vascular congestion. Stable mild cardiomegaly. Electronically Signed: Daniel Kam MD at 3:07 EDT Reading Location ID and State: [id number] / , Service support , Chest x-ray read by me as normal Discharge Plan Triage Chief Complaint: Syncope ED Provider: Mani Claire Dx/Rx/DC Orders Clinical Impression: Syncope, CHF (congestive heart failure) Prescriptions: No Action (DME) blood pressure monitor Kit See Rx Instructions .ROUTE .MEDSUPPLY Qty: 1 0RF Rx Instructions: check blood pressure daily pantoprazole 40 mg tablet,delayed release (DR/EC) 40 mg PO DAILY 90 Days Qty: 90 3RF (DME) lancets [OneTouch Delica Lancets] 30 gauge misc See Rx Instructions .ROUTE .MEDSUPPLY Qty: 200 3RF Rx Instructions: check blood sugar tid for type 2 DM simvastatin 20 mg tablet 20 mg PO QHS Qty: 90 3RF pramipexole [Mirapex] 1 mg tablet 2 mg PO QHS Qty: 180 3RF insulin glargine [Semglee Pen U-100 Insulin] 100 unit/mL (3 mL) insulin pen 30 unit subcut QAM metoprolol succinate 25 mg tablet extended release 24 hr 75 mg PO BID sertraline 25 mg tablet 25 mg PO DAILY Otezla 30 MG tablet 30 mg PO BID acetaminophen [Tylenol] 325 mg Tablet 650 mg PO Q4H PRN PRN (Reason: Pain 1-10 Or Fever) Qty: 0 0RF ferrous sulfate 325 mg (65 mg iron) tablet 325 mg PO Q OTHER DAY diazepam 5 mg tablet 5 mg PO Q8 PRN (Reason: Vertigo) Qty: 15 0RF furosemide 20 mg tablet 40 mg PO DAILY Rx Instructions: 40mg PO BID x2 days followed by Lasix 40mg PO Daily in the AM sucralfate [Carafate] 100 mg/mL suspension 10 ml PO BID Qty: 200 0RF finasteride 5 mg tablet 5 mg PO DAILY Qty: 90 3RF (DME) blood sugar diagnostic Strip See Rx Instructions .ROUTE .MEDSUPPLY Qty: 100 0RF Rx Instructions: One Touch Elena test strip, use to test blood sugar 3 times daily. Dx E11.42 hydralazine 25 mg tablet 25 mg PO BID Qty: 180 3RF ergocalciferol (vitamin D2) 1,250 mcg (50,000 unit) capsule 50,000 unit PO QMONTH Qty: 12 0RF (DME) pen needle, diabetic [BD Ultra-Fine Mini Pen Needle] 31 gauge x 3/16 needle See Rx Instructions .ROUTE .MEDSUPPLY Qty: 100 3RF Rx Instructions: daily for type 2 dm olmesartan 20 mg tablet 20 mg PO DAILY Qty: 90 1RF progesterone micronized 100 mg capsule 100 mg PO QAM Qty: 90 0RF flecainide 100 mg tablet 100 mg PO Q12H Qty: 180 2RF amlodipine 10 mg tablet 10 mg PO DAILY Qty: 90 3RF dulaglutide 4.5 mg/0.5 mL pen injector 4.5 mg SC .COMPLEX 90 Days Qty: 2 2RF Rx Instructions: 4.5 mg subcut every friday Primary Care Provider: Tosha Shrestha Referrals: Tosha Shrestha MD [Primary Care Provider] - Disposition Disposition: Acute Care Hospital [facility]
[2022-06-19 02:39] LABS: Basophil# 0.04 X10^3/uL; Basophil% 0.7 % (0-1); Eosinophil# 0.16 X10^3/uL; Eosinophils% 2.7 % (0-5); Hematocrit 33.6 % (40-54); Hemoglobin 10.9 g/dL (13.0-16.5); Lymphocyte % 21.9 % (19-41); Mean Corp Hgb Conc 32.4 g/dL (32-36); Mean Corpuscular Hgb 30.5 pg (27.0-32.0); Mean Corpuscular Volume 94.1 fL (80-94); Mean Platelet Vol. 9.3 fl (6.2-12.0); Monocyte# 0.42 X10^3/uL; Monocyte% 7.1 % (0-10); NRBC Flagged by Analyzer 0 % (0-5); Neutrophil # 3.97 X10^3/uL (2.7-7.7); Neutrophil % 66.9 % (47-70); Platelet Count 161 K/mm3 (150-450); RBC Distribution Width CV 14.1 % (11.6-14.6); RBC Distribution Width SD 48.9 fl (35.1-43.9); Red Blood Count 3.57 M/mm3 (4.6-6.2); White Blood Count 5.9 K/mm3 (4.4-11.0)
[2022-06-19 02:58] LABS: ALB/GLOB Ratio 0.9 RATIO (0.9-2.4); AST(SGOT) 70 U/L (15-37); Alanine Aminotransfer ALT/SGPT 65 U/L (16-61); Albumin, Serum 3.3 g/dL (3.2-5.0); Alkaline Phosphatase 83 U/L (45-117); Anion Gap 6 (5-15); BUN 33 mg/dL (7-18); BUN/Creat Ratio 21.2 RATIO (10-20); Calcium,Total 8.6 mg/dL (8.5-10.1); Chloride 112 mmol/L (98-107); Creatinine, Serum 1.56 mg/dL (0.70-1.30); EST Glomerular Filtration Rate 45 mL/min (>60); Est Glom Filt Rate - Afr Amer 55 mL/min (>60); Estimated Creatinine Clearance 40.07 ml/min; Globulin 3.8 g/dL (2.2-4.2); Glucose 123 mg/dL (74-106); Potassium 4.3 mmol/L (3.5-5.1); Protein, Total 7.1 g/dL (6.4-8.2); Sodium Level 142 mmol/L (136-145); Troponin-I HS (w/2H Reflex) 12 pg/mL (3.0-78.0)
--- NOTE | 2022-06-19 04:14 | PCM.HP.STD ---
HPI - General General Date of Admission: 06/19/22 Date of Service: 06/19/22 Chief Complaint: Syncope HPI Narrative MARY SAN, is a 81 M who presented to the emergency department at [facility] on 06/19/2022 with a chief complaint of syncope. Evidently, the patient woke up approximately 1 AM as his BiPAP has been causing some right-sided nasal congestion. He took his BiPAP off and states he suddenly saw a white light and awoke on the ground with his head lying on the shoe. He states he has been having ongoing issues with lightheadedness but denies specifically vertigo. He states he has been having this periodically and it comes and goes. He feels that he has less energy and has some intermittent shortness of breath but denies any chest pain. He has a history of supraventricular tachyarrhythmia and atrial fibrillation for which she underwent an ablation. He is on metoprolol and flecainide at baseline. It appears these dizzy spells have been problematic for some time however he notes that they have worsened substantially in the last several weeks. It appears that he did have a 30-day event monitor that was overall unremarkable in July 2020. Upon presentation his temperature was 97.6, rate was extended, blood pressure was 160/59, respiratory rate was 16 and oxygen saturation was 96% on room air. Orthostatic vitals were obtained and found to be negative. At the time of my evaluation he did have a few episodes where his heart rate dropped into the 30s but he appeared to be asymptomatic at that time. He was lying flat on a gurney at that time. His CBC is overall unremarkable with a chronic stable anemia. His chemistry panel is overall unremarkable with chronic stable CKD stage IIIb. His serum glucose was 123. Interestingly his transaminases including his AST and ALT were elevated respectively at 70 and 65. Troponin was obtained and found to be 12. His EKG shows normal sinus rhythm with few ectopic beats. Intervals are normal and there is no ST-T wave changes consistent with acute ischemia. CT of the brain was done with a syncopal episode and possible head trauma and showed minimal right posterior parietal scalp swelling but no acute intracranial abnormality. His chest x-ray showed slight vascular congestion and stable mild cardiomegaly. [facility] Medical History (HFpEF) heart failure with preserved ejection fraction (12/12/20) A-fib Acute respiratory failure with hypoxia Anemia Anemia of chronic renal failure, stage 3 (moderate) Anxiety and depression Atherosclerotic heart disease of [place] coronary artery without angina pectoris Atrial flutter Atypical chest pain Back pain BMI 34.0-34.9,adult BPH (benign prostatic hyperplasia) BPPV (benign paroxysmal positional vertigo) Cardiac dysrhythmia Cardiology follow-up encounter De Quervain's tenosynovitis Depression Dermatitis Diabetes mellitus Diabetic kidney disease Dizziness DM type 2 with diabetic peripheral neuropathy DVT (deep venous thrombosis) Dyslipidemia Dysphagia Essential (primary) hypertension Fall Fracture of great toe Gastric reflux Health care maintenance History of echocardiogram History of edema History of GI bleed History of peptic ulcer History of renal calculi History of ulceration HLD (hyperlipidemia) Injury of head and neck Iron deficiency anemia Iron deficiency anemia due to chronic blood loss Kidney hematoma (12/08/20) Left knee pain Left leg DVT Loss of equilibrium Low iron Malaise Near syncope Orthostatic hypotension MACHELLE (obstructive sleep apnea) Pain of left lower extremity Paroxysmal atrial flutter Pneumonia Polypharmacy Prostate disease Psoriasis Renal calculi RLS (restless legs syndrome) Sex disorder Suicidal ideation SVT (supraventricular tachycardia) Urolithiasis Vertigo Walker as ambulation aid Wears glasses Home Medications finasteride 5 mg tablet 5 mg PO DAILY PROSTATE #90 tabs 11/03/18 [Rx Last Taken 08/05/21] apremilast 30 mg tablet (Otezla) 30 mg PO BID arthritis 11/22/20 [History Last Taken 08/05/21] acetaminophen 325 mg tablet (Tylenol) 650 mg PO Q4H PRN PRN Pain 1-10 Or Fever #0 tabs 12/15/20 [Rx Last Taken Unknown] blood sugar diagnostic #100 ea 01/04/21 [Rx Last Taken Unknown] blood pressure monitor #1 ea 03/13/21 [Rx Last Taken Unknown] hydralazine 25 mg tablet 25 mg PO BID #180 tabs 08/20/21 [Rx Last Taken Unknown] pantoprazole 40 mg tablet,delayed release 40 mg PO DAILY 90 days #90 tabs 10/09/21 [Rx Last Taken Unknown] lancets 30 gauge ([employer] Lancets) #200 ea 10/26/21 [Rx Last Taken Unknown] pramipexole 1 mg tablet (Mirapex) 2 mg PO QHS RLS #180 tabs 12/10/21 [Rx Last Taken Unknown] simvastatin 20 mg tablet 20 mg PO QHS #90 tabs 12/10/21 [Rx Last Taken Unknown] ergocalciferol (vitamin D2) 1,250 mcg (50,000 unit) capsule 50,000 unit PO QMONTH #12 caps 01/01/22 [Rx Last Taken Unknown] pen needle, diabetic 31 gauge x 3/16 (BD Ultra-Fine Mini Pen Needle) #100 ea 01/23/22 [Rx Last Taken Unknown] diazepam 5 mg tablet 5 mg PO Q8 PRN Vertigo #15 tabs 01/30/22 [Rx Last Taken Unknown] olmesartan 20 mg tablet 20 mg PO DAILY #90 tabs 03/18/22 [Rx Last Taken Unknown] progesterone micronized 100 mg capsule 100 mg PO QAM #90 caps 03/18/22 [Rx Last Taken Unknown] furosemide 20 mg tablet 40 mg PO DAILY 03/27/22 [History Last Taken Unknown] flecainide 100 mg tablet 100 mg PO Q12H HEART RATE #180 tabs 04/01/22 [Rx Last Taken Unknown] sertraline 25 mg tablet 25 mg PO DAILY 04/05/22 [History Last Taken Unknown] sucralfate 100 mg/mL oral suspension (Carafate) 10 ml PO BID #200 mL 04/12/22 [Rx Last Taken Unknown] ferrous sulfate 325 mg (65 mg iron) tablet 325 mg PO Q OTHER DAY supplement 05/15/22 [History Last Taken Unknown] insulin glargine 100 unit/mL (3 mL) subcutaneous pen (Semglee Pen U-100 Insulin) 30 unit subcut QAM 05/15/22 [History Last Taken Unknown] metoprolol succinate 25 mg tablet,extended release 24 hr 75 mg PO BID 05/15/22 [History Last Taken Unknown] amlodipine 10 mg tablet 10 mg PO DAILY #90 tabs 05/31/22 [Rx Last Taken Unknown] dulaglutide 4.5 mg/0.5 mL subcutaneous pen injector 4.5 mg (0.5 mL) subcut .COMPLEX 3 months #2 mL 05/31/22 [Rx Last Taken Unknown] Allergy/AdvReac Type Severity Reaction Status Date / Time hydrocodone bitartrate AdvReac Severe Other Verified 06/19/22 01:46 [From Vicodin] hydroxyzine AdvReac Severe Other Verified 06/19/22 01:46 Family History Father Diabetes Hypertension Cancer Lung cancer Mother Hypertension CVA (cerebral vascular accident) Sister Diabetes Son Diabetes Surgical History History of cardioversion (2015) History of cataract surgery History of left heart catheterization (02/16/13) History of lithotripsy (11/2020) History of radiofrequency ablation procedure for cardiac arrhythmia (02/05/06) history of right knee cap fracture History of right knee surgery Status post laser lithotripsy of ureteral calculus Status post left foot surgery STENT PLACEMENT FOR KIDNEY STONE Social History (Updated 06/19/22 @ 04:[address] Claudine Field DO) household members: spouse housing: house Smoking Status: Never smoker how long ago did patient quit smokin second hand exposure: No alcohol intake: never substance use type: does not use caffeine: No what type of physical activity do you participate in: none seatbelt use: always do you feel safe at home: Yes ROS Constitutional Constitutional: Denies anorexia, change in weight, chills, fatigue, fever(s), malaise, night sweats, weakness or other Eyes Eyes: Denies blurry vision, change in eye color, change in vision, discharge from eye(s), double vision, erythema, eye pain, loss of vision or other ENT HEENT: Reports nasal congestion; Denies abnormal hearing, dysphagia, ear pain, epistaxis, headache(s), hearing loss, nasal discharge, post nasal drip, sinus pressure, sore throat or other Cardiovascular Cardiovascular: Reports lightheadedness and syncope; Denies chest pain, claudication, dyspnea on exertion, edema, orthopnea, palpitations, paroxysmal nocturnal dyspnea, rapid heart rate or other Respiratory/Chest Respiratory/Chest: Reports dyspnea; Denies cough, excessive phlegm production, hemoptysis, productive cough, shortness of breath at rest, shortness of breath with exertion, wheezing or other Gastrointestinal Gastrointestinal: Denies abdominal pain, coffee ground emesis, constipation, diarrhea, dyspepsia, hematemesis, hematochezia, loose stools, melena, nausea, vomiting or other Genitourinary Genitourinary: Denies burning urination, difficulty urinating, dysuria, hematuria, nocturia, urinary frequency, urinary hesitancy, urinary incontinence, urinary urgency or other Musculoskeletal Musculoskeletal: Reports joint pain and joint stiffness; Denies arthralgias, back pain, joint swelling, myalgias, neck pain or other Neurologic Neurologic: Reports disequilibrium and syncope; Denies abnormal gait, abnormal speech, confusion, dizziness, focal weakness, headache(s), numbness, paresthesias, seizure-like activity, seizures, tingling, tremor(s) or other Psychiatric Psychiatric: Denies anxiety, depression, homicidal ideation, suicidal ideation or other Endocrine Endocrinology: Denies change in body appearance, cold intolerance, excessive sweating, heat intolerance, polydipsia, polyuria or other Hematologic/Lymphatic Hematologic/Lymphatic: Denies anemia, easy bleeding, easy bruising, lymphadenopathy or other Allergic/Immunologic Allergic/Immunologic: Denies rhinitis, hives, eczemia, asthma or other Vital Signs Vital Signs Vital Signs: 06/19/22 01:41 06/19/22 01:58 06/19/22 02:29 Temperature 97.6 F L Temperature Source Temporal Pulse Rate 60 Pulse Rate [Lying] 63 Pulse Rate [Sitting (for 1 minute prior to obtaining)] 62 Pulse Rate [Standing (for 1 minute prior to obtaining)] 63 Respiratory Rate 16 Respiratory Effort Non-Labored Respiratory Pattern Normal Blood Pressure 160/59 H Blood Pressure [Lying] 151/60 H Blood Pressure [Sitting (for 1 minute prior to obtaining)] 146/59 H Blood Pressure [Standing (for 1 minute prior to obtaining)] 151/60 H Blood Pressure Mean 92 Blood Pressure Mean [Lying] 90 Blood Pressure Mean [Sitting (for 1 minute prior to obtaining)] 88 Blood Pressure Mean [Standing (for 1 minute prior to obtaining)] 90 Pulse Ox 96 Oxygen Delivery Method Room Air 06/19/22 03:07 Temperature Temperature Source Pulse Rate 62 Pulse Rate [Lying] Pulse Rate [Sitting (for 1 minute prior to obtaining)] Pulse Rate [Standing (for 1 minute prior to obtaining)] Respiratory Rate 22 H Respiratory Effort Respiratory Pattern Blood Pressure 151/60 H Blood Pressure [Lying] Blood Pressure [Sitting (for 1 minute prior to obtaining)] Blood Pressure [Standing (for 1 minute prior to obtaining)] Blood Pressure Mean 90 Blood Pressure Mean [Lying] Blood Pressure Mean [Sitting (for 1 minute prior to obtaining)] Blood Pressure Mean [Standing (for 1 minute prior to obtaining)] Pulse Ox 90 Oxygen Delivery Method Room Air Weight Weight: 129.2 kg Body Mass Index (BMI) 38.6 Physical Exam Const alert, oriented x3, no apparent distress and well nourished Constitutional Narrative: Obese, elderly, white male lying in bed on his right side, at bedside, patient appears comfortable and nontoxic General Appearance: cooperative HEENT normocephalic and moist oral mucous membranes HEENT Narrative: Slight amount of swelling on right side of head parietally, marked hearing loss, Mallampati 3, no thrush, dentition is fair Eyes PERRL, EOMs intact bilaterally and conjunctivae normal Eyes Narrative: No scleral icterus Neck no lymphadenopathy, supple and no carotid bruits Neck Narrative: Trachea midline, no thyroid enlargement Resp normal respiratory effort, no retractions, no use of accessory muscles and clear to auscultation bilaterally Auscultation: Negative for crackles, rales, rhonchi or wheezes Cardio S1 normal heart sound, S2 normal heart sound, no murmurs, no rub, no gallops and no clicks Cardio Narrative: Few ectopic beats, intermittent bradycardia GI normal to inspection, nondistended, normoactive bowel sounds, soft to palpation, non-tender and non-distended Extremity no clubbing, cyanosis or edema Extremity Narrative: 2+ pedal pulses Skin no rashes or lesions noted, no wounds, skin turgor normal, no jaundice, no petechiae and no mottling Neuro oriented x3, CN's II-XII intact bilaterally, moves all extremities and no focal motor deficits Neuro Narrative: Significant generalized weakness noted Speech: speech normal Psych affect normal Psych Narrative: Very pleasant and appropriately interactive Results Lab / Micro Data Result Diagrams: 06/19/22 01:54 06/19/22 01:54 Labs: Laboratory Results - last 24 hr 06/19/22 01:54: WBC 5.9, RBC 3.57 L, Hgb 10.9 L, Hct 33.6 L, MCV 94.1 H, MCH 30.5, MCHC 32.4, RDW Std Deviation 48.9 H, RDW Coeff of Flavio 14.1, Plt Count 161, MPV 9.3, Immature Gran % (Auto) 0.700, Neut % (Auto) 66.9, Lymph % (Auto) 21.9, [place] % (Auto) 7.1, Eos % (Auto) 2.7, Baso % (Auto) 0.7, Absolute Neuts (auto) 4.0, Absolute Lymphs (auto) 1.30, Nucleated RBC % 0 06/19/22 01:54: Sodium 142, Potassium 4.3, Chloride 112 H, Carbon Dioxide 24.0, Anion Gap 6, BUN 33 H, Creatinine 1.56 H, Estim Creat Clear Calc 40.07, Est GFR (MDRD) Af Amer 55 L, Est GFR (MDRD) Non-Af 45 L, BUN/Creatinine Ratio 21.2 H, Glucose 123 H, Calcium 8.6, Total Bilirubin 0.50, AST 70 H, ALT 65 H, Alkaline Phosphatase 83, Troponin I High Sens 12, Total Protein 7.1, Albumin 3.3, Globulin 3.8, Albumin/Globulin Ratio 0.[address] 06/19/22 02:21 IMPRESSION: No acute intracranial abnormality. Minimal right posterior parietal scalp swelling. Electronically Signed: Daniel Kam MD at 3:38 EDT Reading Location ID and State: Misti Muniz MD , Service support , Chest X-Ray 06/19/22 02:21 IMPRESSION: Slight increase in mild vascular congestion. Stable mild cardiomegaly. Electronically Signed: Daniel Kam MD at 3:07 EDT Reading Location ID and State: Misti Muniz MD , Service support , Assessment & Plan Assessment/Plan (1) Syncope: (2) Bradycardia: (3) Debility: PLAN: Plan Syncope -Suspect this may be related to arrhythmia -Patient been having ongoing lightheadedness and was noted to be bradycardic in the emergency department with heart rates as low as in the 30s -Check echocardiogram -Monitor on telemetry -Hold metoprolol -We will continue flecainide for now -May need event monitor or loop recorder -Check TSH -Cardiology consult--> on-call physician notified Bradycardia -See above Debility -PT/OT consultation MACHELLE -Continue home nocturnal BiPAP at 12/8 -Patient with nasal congestion related to his BiPAP -Add Flonase -Continue home [place] nasal spray -Patient follows with pulmonary medicine with regards to the above History of SVT/atrial fibrillation -Previous ablation -On metoprolol and flecainide -Hold metoprolol for bradycardia -Patient not anticoagulated at baseline related to bleeding issues History of BPPV -Patient currently denying any vertiginous symptoms DM-2 -Hold home oral and injectables -Sliding scale insulin -Cardiac/diabetic diet -Before meals and at bedtime PGT CKD stage IIIb -Current serum creatinine is at baseline -Continue to monitor -Avoid nephrotoxins as able HFpEF -Currently compensated -Could sinew home Lasix GERD/duodenal ulcer disease -Continue PPI and Carafate -EGD performed 07.03.21 finding LA Grade B reflux esophagitis; Low-grade narrowing of Schatzki ring, dilated; Multiple non-bleeding duodenal ulcers without stigmata of bleeding Chronic anemia -Follows with Dr. 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
[2022-06-19 04:38] LABS: Reflex Troponin-HS? (from REC) Y
--- NOTE | 2022-06-19 05:55 | ECHOD_ITS ---
Reason For Study: SYNCOPE/NEAR SYNCOPE Procedure This was a 2D Doppler, Color Flow transthoracic echocardiogram. Exam performed portable in patient room. Left Ventricle Normal LV size. Left ventricular systolic function is normal. The estimated ejection fraction is 65 %. Stage 2 diastolic dysfunction. No regional wall motion abnormalities noted. Right Ventricle Normal RV size. Normal systolic function. Atria The left atrium is moderately enlarged. The right atrium is mildly enlarged. Mitral Valve There is mild to moderate mitral annular calcification. Mild-Moderate (1-2+) eccentric mitral valve insufficiency. Tricuspid Valve Normal tricuspid valve. Mild to moderate (1-2+) tricuspid valve insufficiency. Pulmonary artery systolic pressure is 45 mmHg. Aortic Valve Trisinus/trileaflet aortic valve. Mild focal aortic valve calcification. Mild (1+) eccentric aortic valve insufficiency. Pulmonic Valve Normal pulmonic valve. Great Vessels Normal aortic root. The pulmonary artery is normal size. Normal inferior vena cava. Pericardium/Pleural No pericardial effusion. MMode/2D Measurements & Calculations LVIDd: 5.5 cm IVSd: 1.1 cm Ao root diam: 3.3 cm LVIDs: 3.6 cm LVPWd: 1.1 cm RVDd: 4.5 cm FS: 33.5 % LAV(MOD-bp): 101.7 ml LVAd ap4: 39.9 cm2 SV(MOD-sp4): 94.1 ml LAV(MOD-bp) Indexed: 41.6 ml/m2 LVLd ap4: 9.6 cm LAV(MOD-sp2): 100.9 ml EDV(MOD-sp4): 138.8 ml LAV(MOD-sp4): 98.3 ml EDV(sp4-el): 140.9 ml LVAs ap4: 20.7 cm2 LVLs ap4: 8.1 cm ESV(MOD-sp4): 44.7 ml ESV(sp4-el): 45.1 ml EF(MOD-sp4): 67.8 % EF(sp4-el): 68.0 % SV(sp4-el): 95.7 ml LA A4 area: 29.4 cm2 LA dimension(2D): 4.1 cm RA A4 area: 24.3 cm2 Time Measurements MV dec time: 0.22 sec Doppler Measurements & Calculations MV E max darrius: 162.6 cm/sec Lat Peak E' Darrius: 11.1 cm/sec Med Peak E' Darrius: 7.4 cm/sec MV A max darrius: 82.4 cm/sec E/E' lat: 14.7 E/E' med: 22.0 MV E/A: 2.0 Ao V2 max: 172.4 cm/sec AI max darrius: 458.2 cm/sec LV V1 max: 142.0 cm/sec Ao max P.9 mmHg AI max P.0 mmHg LV V1 max P.1 mmHg AI dec slope: 418.9 cm/sec2 AI P1/2t: 320.4 msec PA V2 max: 93.0 cm/sec TR max darrius: 325.0 cm/sec TR max P.3 mmHg ECHO/Echo Complete Interpretation Summary Normal LV size. Left ventricular systolic function is normal. The estimated ejection fraction is 65 %. The left atrium is moderately enlarged. Stage 2 diastolic dysfunction. Mild (1+) eccentric aortic valve insufficiency. Ordering Physician: Claudine Field Referring Physician: CONSUELO WINCHESTER Performed By: Darlene Jain RDCS
[2022-06-19 06:10] LABS: Troponin-I HS 12 pg/mL (3.0-78.0)
[2022-06-19] MEDS: Heparin Injection (Vial) 5,000 UNIT/ML VIAL 5000 UNIT SC ×2 (06:36→16:23)
[2022-06-19 07:00] LABS: Bedside Glucose 109 mg/dL (74-106)
--- NOTE | 2022-06-19 07:11 | CON.PCM.CA_ITS ---
Assessment & Plan Assessment/Plan (1) Syncope: PLAN: He does present with a syncopal episode etiology of which is not entirely clear. His presenting electrocardiogram demonstrated sinus rhythm with no acute changes. His monitoring recording thus far in the hospital has demonstrated sinus rhythm and sinus bradycardia which does not appear to be severe. He has not had any episodes of atrial fibrillation here. * I would recommend that we continue to monitor him and obtain an echocardiogram. If nothing is unrevealing in the next few hours then I would recommend that we repeat the 30-day event monitor or consider an implantable loop recorder as an outpatient. (2) Hypertension: QUALIFIERS: Hypertension type: primary hypertension Qualified C ode(s): I10 - Essential (primary) hypertension PLAN: His blood pressure appears to be under good control and I would not recommend any changes at this time. Thank you for allowing me to participate in the care of your patient. Please don't hesitate to call if any issues arise. 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 He appears to be maintaining sinus rhythm at this time and I would not recommend we make any changes. (4) A-fib: PLAN: He has had a previous history of atrial fibrillation. The plan will be to continue him on the current medical therapy with the flecainide and the beta- simona. I have not seen any significant pauses to warrant discontinuation or changing of the above dosages. HPI Consult Data Date of Consult: 06/19/22 HPI Narrative HPI Narrative: MARY SAN, is a 81 M who presents to the emergency room after he says that he was getting out of bed and apparently passed out. He had turned over in bed and stepped out and that is the last thing that he remembers. He has had some problems with his BiPAP machine and says he thinks it may be contributing to the issue. He was evaluated in the emergency room and was noted to be in sinus rhythm with no acute changes. He is a gentleman with a history of minimal coronary artery disease, supraventricular tachyarrhythmia status post ablation for narrow complex tachycardia, and a history of atrial fibrillation status post cardioversion in 2013.? He also has a history of MACHELLE with BiPAP therapy.? He has had occasional dizzy spells but these appear to be minimal. He had a CT and MRI in 2018 both of which were normal and a pharmacologic stress test in March 2019 which was also normal.? His echo test in 2018 demonstrated an ejection fraction of 65% with no wall motion abnormalities and his 30-day event monitor demonstrated no atrial fibrillation, no pauses.? He was in the hospital a while ago for severe hypertension and was treated and put on amlodipine as well as hydralazine which he appears to be tolerating quite well. He denies chest, arm, jaw, or neck discomfort.? He denies palpitations.? He states increasing bilateral lower extremity edema.? He acknowledges shortness of breath with activity such as going up stairs and working outside.? He denies shortness of breath at rest, orthopnea, cough, PND.? He acknowledges dizziness, weakness, and vertigo.? He denies lightheadedness, near-syncope, or syncope until now.? [facility] Medical History (Updated 06/19/22 @ 07:[address] Sajan Rogers MD) (HFpEF) heart failure with preserved ejection fraction (12/12/20) A-fib Acute respiratory failure with hypoxia Anemia Anemia of chronic renal failure, stage 3 (moderate) Anxiety and depression Atherosclerotic heart disease of [place] coronary artery without angina pectoris Atrial flutter Atypical chest pain Back pain BMI 34.0-34.9,adult BPH (benign prostatic hyperplasia) BPPV (benign paroxysmal positional vertigo) Cardiac dysrhythmia Cardiology follow-up encounter De Quervain's tenosynovitis Depression Dermatitis Diabetes mellitus Diabetic kidney disease Dizziness DM type 2 with diabetic peripheral neuropathy DVT (deep venous thrombosis) Dyslipidemia Dysphagia Essential (primary) hypertension Fall Fracture of great toe Gastric reflux Health care maintenance History of echocardiogram History of edema History of GI bleed History of peptic ulcer History of renal calculi History of ulceration HLD (hyperlipidemia) Injury of head and neck Iron deficiency anemia Iron deficiency anemia due to chronic blood loss Kidney hematoma (12/08/20) Left knee pain Left leg DVT Loss of equilibrium Low iron Malaise Near syncope Orthostatic hypotension MACHELLE (obstructive sleep apnea) Pain of left lower extremity Paroxysmal atrial flutter Pneumonia Polypharmacy Prostate disease Psoriasis Renal calculi RLS (restless legs syndrome) Sex disorder Suicidal ideation SVT (supraventricular tachycardia) Urolithiasis Vertigo Walker as ambulation aid Wears glasses Home Medications finasteride 5 mg tablet 5 mg PO DAILY PROSTATE #90 tabs 03/19/19 [Rx Last Taken 08/05/21] apremilast 30 mg tablet (Otezla) 30 mg PO BID arthritis 11/22/20 [History Last Taken 08/05/21] acetaminophen 325 mg tablet (Tylenol) 650 mg PO Q4H PRN PRN Pain 1-10 Or Fever #0 tabs 12/15/20 [Rx Last Taken Unknown] blood sugar diagnostic #100 ea 01/04/21 [Rx Last Taken Unknown] blood pressure monitor #1 ea 03/13/21 [Rx Last Taken Unknown] hydralazine 25 mg tablet 25 mg PO BID #180 tabs 08/20/21 [Rx Last Taken Unknown] pantoprazole 40 mg tablet,delayed release 40 mg PO DAILY 90 days #90 tabs 10/09/21 [Rx Last Taken Unknown] lancets 30 gauge ([employer] Lancets) #200 ea 10/26/21 [Rx Last Taken Unknown] pramipexole 1 mg tablet (Mirapex) 2 mg PO QHS RLS #180 tabs 12/10/21 [Rx Last Taken Unknown] simvastatin 20 mg tablet 20 mg PO QHS #90 tabs 12/10/21 [Rx Last Taken Unknown] ergocalciferol (vitamin D2) 1,250 mcg (50,000 unit) capsule 50,000 unit PO QMONTH #12 caps 01/01/22 [Rx Last Taken Unknown] pen needle, diabetic 31 gauge x 3/16 (BD Ultra-Fine Mini Pen Needle) #100 ea 01/23/22 [Rx Last Taken Unknown] diazepam 5 mg tablet 5 mg PO Q8 PRN Vertigo #15 tabs 01/30/22 [Rx Last Taken Unknown] olmesartan 20 mg tablet 20 mg PO DAILY #90 tabs 03/18/22 [Rx Last Taken Unknown] progesterone micronized 100 mg capsule 100 mg PO QAM #90 caps 03/18/22 [Rx Last Taken Unknown] furosemide 20 mg tablet 40 mg PO DAILY 03/27/22 [History Last Taken Unknown] flecainide 100 mg tablet 100 mg PO Q12H HEART RATE #180 tabs 04/01/22 [Rx Last Taken Unknown] sertraline 25 mg tablet 25 mg PO DAILY 04/05/22 [History Last Taken Unknown] sucralfate 100 mg/mL oral suspension (Carafate) 10 ml PO BID #200 mL 04/12/22 [Rx Last Taken Unknown] ferrous sulfate 325 mg (65 mg iron) tablet 325 mg PO Q OTHER DAY supplement 05/15/22 [History Last Taken Unknown] insulin glargine 100 unit/mL (3 mL) subcutaneous pen (Semglee Pen U-100 Insulin) 30 unit subcut QAM 05/15/22 [History Last Taken Unknown] metoprolol succinate 25 mg tablet,extended release 24 hr 75 mg PO BID 05/15/22 [History Last Taken Unknown] amlodipine 10 mg tablet 10 mg PO DAILY #90 tabs 05/31/22 [Rx Last Taken Unknown] dulaglutide 4.5 mg/0.5 mL subcutaneous pen injector 4.5 mg (0.5 mL) subcut .COMPLEX 3 months #2 mL 05/31/22 [Rx Last Taken Unknown] Allergy/AdvReac Type Severity Reaction Status Date / Time hydrocodone bitartrate AdvReac Severe Other Verified 06/19/22 01:46 [From Vicodin] hydroxyzine AdvReac Severe Other Verified 06/19/22 01:46 Family History Father Diabetes Hypertension Cancer Lung cancer Mother Hypertension CVA (cerebral vascular accident) Sister Diabetes Son Diabetes Surgical History History of cardioversion (2015) History of cataract surgery History of left heart catheterization (02/16/13) History of lithotripsy (11/2020) History of radiofrequency ablation procedure for cardiac arrhythmia (02/05/06) history of right knee cap fracture History of right knee surgery Status post laser lithotripsy of ureteral calculus Status post left foot surgery STENT PLACEMENT FOR KIDNEY STONE Social History (Updated 06/19/22 @ 04:[address] Claudine Field DO) household members: spouse housing: house Smoking Status: Never smoker how long ago did patient quit smokin second hand exposure: No alcohol intake: never substance use type: does not use caffeine: No what type of physical activity do you participate in: none seatbelt use: always do you feel safe at home: Yes ROS Constitutional Constitutional: Denies fever(s) or weight loss Eyes Eyes: Reports systems reviewed and no addt'l complaints, except as documented ENT HEENT: Reports systems reviewed and no addt'l complaints, except as documented Cardiovascular Cardiovascular: Denies chest pain at rest, chest pain with activity, dyspnea at rest, dyspnea on exertion, edema, palpitations or paroxysmal nocturnal dyspnea Respiratory/Chest Respiratory/Chest: Denies dyspnea on exertion, productive cough, shortness of breath at rest or shortness of breath with exertion Gastrointestinal Gastrointestinal: Denies change in bowel habits, nausea, vomiting or weight changes Genitourinary Genitourinary: Denies difficulty urinating Musculoskeletal Musculoskeletal: Denies joint stiffness or muscle weakness Integumentary Integumentary: Denies lesions Neurologic Neurologic: Reports dizziness and syncope Psychiatric Psychiatric: Denies anxiety Endocrine Endocrinology: Denies excessive sweating or fatigue Hematologic/Lymphatic Hematologic/Lymphatic: Denies anemia Allergic/Immunologic Allergic/Immunologic: Denies seasonal rhinorrhea Physical Exam Const alert, oriented x3 and no apparent distress General Appearance: cooperative HEENT hearing grossly normal bilaterally Head and Scalp: atraumatic Eyes EOMs intact bilaterally Neck General: normal visual inspection Chest inspection of chest normal and palpation of chest normal Resp normal respiratory effort Auscultation: clear to auscultation bilaterally Cardio regular rate, regular rhythm, S1 normal heart sound and S2 normal heart sound Jugular Venous Distention: JVD GI normal to inspection, nondistended, normoactive bowel sounds Extremity normal capillary refill and no pedal edema Peripheral Pulses: Yes pulses 2+ throughout and femoral pulses present Skin no rashes or lesions noted Neuro oriented x3 and CN's II-XII intact bilaterally Psych Appearance: grossly normal and appropriate Risk Stratification Risk Stratification Applicable: No Objective Data Vital Signs: Vital Signs Temp Pulse Resp BP Pulse Ox O2 Del Method O2 Flow Rate 98.0 F 62 16 158/61 H 94 Nasal Cannula 4 06/19/22 06:28 06/19/22 06:28 06/19/22 06:28 06/19/22 06:28 06/19/22 06:28 06/19/22 06:28 06/19/22 06:28 Oxygen Flow Rate (L/min) 4 Oxygen Delivery Method Nasal Cannula Weight: 276 lb 10.882 oz Body Mass Index (BMI) 37.5 Lab / Micro Data Result Diagrams: 06/19/22 01:54 06/19/22 01:54 Labs: Laboratory Results - last 24 hr 06/19/22 01:54: WBC 5.9, RBC 3.57 L, Hgb 10.9 L, Hct 33.6 L, MCV 94.1 H, MCH 30.5, MCHC 32.4, RDW Std Deviation 48.9 H, RDW Coeff of Flavio 14.1, Plt Count 161, MPV 9.3, Immature Gran % (Auto) 0.700, Neut % (Auto) 66.9, Lymph % (Auto) 21.9, [place] % (Auto) 7.1, Eos % (Auto) 2.7, Baso % (Auto) 0.7, Absolute Neuts (auto) 4.0, Absolute Lymphs (auto) 1.30, Nucleated RBC % 0 06/19/22 01:54: Sodium 142, Potassium 4.3, Chloride 112 H, Carbon Dioxide 24.0, Anion Gap 6, BUN 33 H, Creatinine 1.56 H, Estim Creat Clear Calc 40.07, Est GFR (MDRD) Af Amer 55 L, Est GFR (MDRD) Non-Af 45 L, BUN/Creatinine Ratio 21.2 H, Glucose 123 H, Calcium 8.6, Total Bilirubin 0.50, AST 70 H, ALT 65 H, Alkaline Phosphatase 83, Troponin I High Sens 12, Total Protein 7.1, Albumin 3.3, Globulin 3.8, Albumin/Globulin Ratio 0.9 06/19/22 05:15: Troponin I High Sens 12 06/19/22 06:32: POC Glucose 109 H Cardiology Labs/Tests 06/19/22 01:54: WBC 5.9, RBC 3.57 L, Hgb 10.9 L, Hct 33.6 L, MCV 94.1 H, MCH 30.5, MCHC 32.4, Plt Count 161, MPV 9.3, Immature Gran % (Auto) 0.700, Neut % (Auto) 66.9, Lymph % (Auto) 21.9, [place] % (Auto) 7.1, Eos % (Auto) 2.7, Baso % (Auto) 0.7, Absolute Neuts (auto) 4.0, Nucleated RBC % 0 06/19/22 01:54: Sodium 142, Potassium 4.3, Chloride 112 H, Carbon Dioxide 24.0, Anion Gap 6, BUN 33 H, Creatinine 1.56 H, Est GFR (MDRD) Af Amer 55 L, Est GFR (MDRD) Non-Af 45 L, BUN/Creatinine Ratio 21.2 H, Glucose 123 H, Calcium 8.6, Total Bilirubin 0.50 Rhythm: EKG: ECHO: Stress Test: Cardiac Cath: PCI: CT Surgery: Holter monitor: EPS: PPM: CXR: Chest CT Scan: Radiography Diagnostic Testing: Radiology Impression Brain CT 06/19/22 02:21 IMPRESSION: No acute intracranial abnormality. Minimal right posterior parietal scalp swelling. Electronically Signed: Daniel Kam MD at 3:38 EDT Reading Location ID and State: [place] / , Service support , Chest X-Ray 06/19/22 02:21 IMPRESSION: Slight increase in mild vascular congestion. Stable mild cardiomegaly. Electronically Signed: Daniel Kam MD at 3:07 EDT Reading Location ID and State: [place] Muniz MD , Service support ,
[2022-06-19 07:57] LABS: Absolute Lymphocyte Count 1.36 X10^3/uL (0.83-4.51); Absolute Neutrophil Count 4.8 X10^3/uL (2.0-7.7); Basophil# 0.04 X10^3/uL; Basophil% 0.6 % (0-1); Eosinophil# 0.19 X10^3/uL; Eosinophils% 2.7 % (0-5); Hematocrit 33.7 % (40-54); Lymphocyte # 1.36 X10^3/ul (0.83-4.51); Lymphocyte % 19.6 % (19-41); Mean Corp Hgb Conc 32.6 g/dL (32-36); Mean Corpuscular Hgb 30.4 pg (27.0-32.0); Mean Corpuscular Volume 93.1 fL (80-94); Mean Platelet Vol. 9.3 fl (6.2-12.0); Monocyte# 0.53 X10^3/uL; Monocyte% 7.6 % (0-10); NRBC Flagged by Analyzer 0 % (0-5); Neutrophil # 4.79 X10^3/uL (2.7-7.7); Neutrophil % 68.9 % (47-70); Platelet Count 165 K/mm3 (150-450); RBC Distribution Width CV 14.1 % (11.6-14.6); RBC Distribution Width SD 47.8 fl (35.1-43.9); Red Blood Count 3.62 M/mm3 (4.6-6.2)
[2022-06-19 08:25] LABS: Troponin-I HS 14 pg/mL (3.0-78.0)
[2022-06-19 08:34] LABS: ALB/GLOB Ratio 0.8 RATIO (0.9-2.4); AST(SGOT) 46 U/L (15-37); Alanine Aminotransfer ALT/SGPT 57 U/L (16-61); Alkaline Phosphatase 82 U/L (45-117); Anion Gap 7 (5-15); BUN 28 mg/dL (7-18); BUN/Creat Ratio 21.4 RATIO (10-20); Calcium,Total 8.4 mg/dL (8.5-10.1); Chloride 112 mmol/L (98-107); Creatinine, Serum 1.31 mg/dL (0.70-1.30); EST Glomerular Filtration Rate 56 mL/min (>60); Est Glom Filt Rate - Afr Amer 67 mL/min (>60); Estimated Creatinine Clearance 47.72 ml/min; Globulin 3.6 g/dL (2.2-4.2); Glucose 109 mg/dL (74-106); Magnesium 1.8 mg/dL (1.6-2.6); Phosphorus 2.8 mg/dL (2.5-4.9); Potassium 4.3 mmol/L (3.5-5.1); Protein, Total 6.6 g/dL (6.4-8.2); Sodium Level 142 mmol/L (136-145); Thyroid Stim Hormone (TSH) 0.92 uIU/mL (0.358-3.74)
[2022-06-19] MEDS: hydrALAZINE 25 MG Tablet PO (10:05)
[2022-06-19] MEDS: Sucralfate 1 GM Tablet PO (10:05)
[2022-06-19] MEDS: Losartan Potassium 50 MG Tablet PO (10:05)
[2022-06-19] MEDS: Furosemide 40 MG Tablet PO (10:06)
[2022-06-19] MEDS: Fluticasone 0.05% 1 SPRAY NASAL.SRY 2 SPRAY NASAL (10:07)
[2022-06-19] MEDS: amLODIPine 10 MG Tablet PO (10:10)
[2022-06-19] MEDS: Flecainide 100 MG Tablet PO (10:11)
[2022-06-19] MEDS: Pantoprazole Sodium 40 MG Tablet PO (10:11)
[2022-06-19] MEDS: Finasteride 5 MG Tablet PO (10:11)
[2022-06-19] MEDS: Sertraline 50 MG Tablet 25 MG PO (10:12)
[2022-06-19] MEDS: Insulin Glargine-YFGN 100 UNIT/ML Pen 30 UNIT SC (10:14)
[2022-06-19] MEDS: Metoprolol Tartrate 25 MG Tablet PO (10:37)
--- NOTE | 2022-06-19 10:58 | NURSING ---
Called pharmacy about progesterone medication. We do not carry it here. Talked with at bedside who said she will bring in medication.
[2022-06-19 11:05] LABS: Bedside Glucose 169 mg/dL (74-106)
--- NOTE | 2022-06-19 11:45 | CASEMGMT ---
RN CM Face to Face with patient for initial transition planning/care coordination assessment. RN CM introduced self and role at [facility]. Patient lying in bed, alert and oriented, at bedside. Patient willing to participate in assessment and is able to answer all questions appropriately. Care providers, pharmacy, and demographics verified. Patient wishes to discharge home but willing to go to SNF if necessary, will monitor progress with therapy. Patient states he has no further needs or concerns at this time. CM to follow for discharge planning needs that may arise. PCP: [facility] Specialists: Sue, juvenile officer; Emir, bacon stringer; Friend, GI; Ciro, electronic scale tester Preferred Pharmacy: [facility]; [facility] Retail at discharge. Insurance: Patsy LEAL Prescription Benefit: Yes, [employer] Living Will/HPOA: yes, Coby Ji LNOK: , daughter Living Arrangements: Patient lives with in a single story condo with 2 steps and railing x2 to enter the home. Patient is normally independent at home. Transportation: self, DME/HHC: Patient has walk in tub, grab bars, raised toilet, walker, rollator, pulse ox, Bipap at home. Pateint has had [facility] HHC in the past. Patient has been to [facility] in the past. Patient states that if he needs to go to SNF, prefers [facility]. Disposition Plan: TBD, anticipate HHC vs SNF, will monitor progress with therapy. Diandra BALDWIN, RN, CM
[2022-06-19 12:35] LABS: Bedside Glucose 110 mg/dL (74-106)
--- NOTE | 2022-06-19 15:39 | PN.HOSP_ITS ---
Subjective Subjective DOS: 06/19/2022 CC: Syncopal episode Discussed syncopal episode further, reports that he did have 1 syncopal episode a couple years ago but was unable to describe it, has also had episodes of presyncope over the past several years most recently early afternoon and the morning of presentation. With the actual syncopal episode he reports he was sleeping and got up to use the restroom, when he sat on the side of the bed he feels like everything went black. He woke up on the floor. Reports that he had the right side of his head but that it is not bothering him at this time. Does have some swelling in his legs but said that he usually wears compression hose at home for this. Denied any other complaints at this time Objective Data Objective Data Vital Signs: Vital Signs Temp Pulse Resp BP Pulse Ox O2 Del Method O2 Flow Rate 98.1 F 63 15 148/62 H 95 Room Air 4 06/19/22 09:57 06/19/22 11:45 06/19/22 09:57 06/19/22 10:37 06/19/22 13:42 06/19/22 15:15 06/19/22 13:42 Oxygen Flow Rate (L/min) 4 Oxygen Delivery Method Room Air Weight: 125.5 kg Body Mass Index (BMI) 37.5 Intake & Output: Intake and Output for Last 24 Hours 06/17/22 06/18/22 06/19/22 23:59 23:59 23:59 Intake Total 360 / 360 Balance 360 / 360 Lab / Micro Data Result Diagrams: 06/19/22 07:30 06/19/22 07:30 Labs: Laboratory Results - last 24 hr 06/19/22 01:54: WBC 5.9, RBC 3.57 L, Hgb 10.9 L, Hct 33.6 L, MCV 94.1 H, MCH 30.5, MCHC 32.4, RDW Std Deviation 48.9 H, RDW Coeff of Flavio 14.1, Plt Count 161, MPV 9.3, Immature Gran % (Auto) 0.700, Neut % (Auto) 66.9, Lymph % (Auto) 21.9, [place] % (Auto) 7.1, Eos % (Auto) 2.7, Baso % (Auto) 0.7, Absolute Neuts (auto) 4.0, Absolute Lymphs (auto) 1.30, Nucleated RBC % 0 06/19/22 01:54: Sodium 142, Potassium 4.3, Chloride 112 H, Carbon Dioxide 24.0, Anion Gap 6, BUN 33 H, Creatinine 1.56 H, Estim Creat Clear Calc 40.07, Est GFR (MDRD) Af Amer 55 L, Est GFR (MDRD) Non-Af 45 L, BUN/Creatinine Ratio 21.2 H, Glucose 123 H, Calcium 8.6, Total Bilirubin 0.50, AST 70 H, ALT 65 H, Alkaline Phosphatase 83, Troponin I High Sens 12, Total Protein 7.1, Albumin 3.3, Globulin 3.8, Albumin/Globulin Ratio 0.9 06/19/22 05:15: Troponin I High Sens 12 06/19/22 06:32: POC Glucose 109 H 06/19/22 07:30: WBC 7.0, RBC 3.62 L, Hgb 11.0 L, Hct 33.7 L, MCV 93.1, MCH 30.4, MCHC 32.6, RDW Std Deviation 47.8 H, RDW Coeff of Flavio 14.1, Plt Count 165, MPV 9.3, Immature Gran % (Auto) 0.600, Neut % (Auto) 68.9, Lymph % (Auto) 19.6, [place] % (Auto) 7.6, Eos % (Auto) 2.7, Baso % (Auto) 0.6, Absolute Neuts (auto) 4.8, Absolute Lymphs (auto) 1.36, Nucleated RBC % 0 06/19/22 07:30: Sodium 142, Potassium 4.3, Chloride 112 H, Carbon Dioxide 23.0, Anion Gap 7, BUN 28 H, Creatinine 1.31 H, Estim Creat Clear Calc 47.72, Est GFR (MDRD) Af Amer 67, Est GFR (MDRD) Non-Af 56 L, BUN/Creatinine Ratio 21.4 H, Glu cose 109 H, Calcium 8.4 L, Phosphorus 2.8, Magnesium 1.8, Total Bilirubin 0.40, AST 46 H, ALT 57, Alkaline Phosphatase 82, Total Protein 6.6, Albumin 3.0 L, Globulin 3.6, Albumin/Globulin Ratio 0.8 L, TSH 0.92 06/19/22 07:30: Troponin I High Sens 14 11/02/22 10:19: POC Glucose 169 H 06/19/22 12:18: POC Glucose 110 H Radiography Diagnostic Testing: Radiology Impression Brain CT 06/19/22 02:21 IMPRESSION: No acute intracranial abnormality. Minimal right posterior parietal scalp swelling. Electronically Signed: Daniel Kam MD at 3:38 EDT Reading Location ID and State: [place] / , Service support , Chest X-Ray 06/19/22 02:21 IMPRESSION: Slight increase in mild vascular congestion. Stable mild cardiomegaly. Electronically Signed: Daniel Kam MD at 3:07 EDT Reading Location ID and State: [place] / , Service support , Echocardiogram 06/19/22 05:55 Interpretation Summary Normal LV size. Left ventricular systolic function is normal. The estimated ejection fraction is 65 %. The left atrium is moderately enlarged. Stage 2 diastolic dysfunction. Mild (1+) eccentric aortic valve insufficiency. Ordering Physician: Claudine Field Referring Physician: CONSUELO WINCHESTER Performed By: Darlene Jain RDCS Physical Exam Const alert and oriented x3 HEENT Head and Scalp: normocephalic Eyes EOMs intact bilaterally Neck supple Resp normal respiratory effort Cardio regular rate and regular rhythm GI soft to palpation, non-tender and non-distended Extremity Extremity Narrative: 1+ bilateral lower extremity pitting edema symmetrically Neuro moves all extremities Neuro Narrative: No overt focal neural trickle deficits appreciated Psych affect normal Assessment & Plan Assessment/Plan (1) Syncope: (2) Bradycardia: (3) Debility: PLAN: Plan #Syncope Query arrhythmia, was bradycardic in the emergency room heart rate in the 30s Echocardiogram demonstrated sinus rhythm with no acute changes On telemetry, typically sinus rhythm with occasional sinus bradycardia Cardiology was consulted?recommended that if inpatient work-up unrevealing that a 30-day event monitor or implantable loop recorder as an outpatient be considered #History of SVT/atrial fibrillation Previously had an ablation On metoprolol and flecainide at home, metoprolol held on admission due to bradycardia #Bradycardia See above #MACHELLE Continue home BiPAP nightly at 12/ Follows with pulm as an outpatient #Debility PT is a consultation #History of BPPV No symptoms at this time, reports rare symptoms usually when he turns over in bed at night, reports that current episode was not consistent with that #Type 2 diabetes mellitus Sliding scale insulin #CKD stage IIIb At base Avoid nephrotoxic agents #Chronic heart failure with preserved ejection fraction Compensated Continue Lasix #GERD/duodenal ulcer disease PPI and Carafate EGD performed 07.03.21 finding LA Grade B reflux esophagitis; Low-grade n arrowing of Schatzki ring, dilated; Multiple non-bleeding duodenal ulcers without stigmata of bleeding #Chronic normocytic anemia -Follows with Dr. Potter in hematology -Continue home iron supplementation -Hemoglobin is stable BPH -Continue finasteride Hypertension -Continue home boulevard glassware replacer next and continue Lasix -Can home high housing -Hold home metoprolol and avoid beta-blockade Restless leg syndrome -Continue Mirapex Hyperlipidemia -Continue home simvastatin Vitamin D -Restart ergocalciferol start Obesity -BMI 38.6 -Recommend weight loss -Complicates treatment, prognosis, outcomes DVT prophylaxis -Heparin 3 times daily -SCD Charges/Coding Visit Charges Inpatient E&M: 63780 Subs Hosp L2
[2022-06-19 16:50] LABS: Bedside Glucose 124 mg/dL (74-106)
--- NOTE | 2022-06-19 17:21 | DCINST_ITS ---
Discharge Instructions Diet Discharge Diet: Carb Control Diet Activity Discharge Activity: Return to Normal Activity Follow Up Care Test Results: Test results from this visit will be discussed in further detail at your follow- up appointment, if applicable. Discharge Plan Admission Admit Date/Time: 06/19/22 03:28 Primary Reason for Your Visit: Episode of passing out Attending Provider: Margarita Jackson Primary Care Provider: Tosha Shrestha Consulting Providers: Mani Marvin ; Claudine Field Instructions Patient Instructions: ED Dizziness, Uncertain Cause, ED Fainting, Uncertain Cause Additional Instructions / Restrictions: *Please take this with you to your next doctors appointment* ?He will follow with Dr. Rogers, the heart doctor rigoberto in the hospital, upon discharge ? His office will schedule an implantable loop recorder for you which is a heart monitor that you wear for an extended period of time to monitor for reasons of passing out ?Please continue to check your blood sugar, watch for signs and symptoms of hypoglycemia, please call your primary care physician if there are any questions or concerns. ? Due to a slightly low heart rate your metoprolol succinate was changed to metoprolol tartrate and the dose was decreased to 25 mg twice a day, and new prescription was sent to your preferred pharmacy on file. This may need further adjustment, please follow-up with both the heart doctor and your primary care physician -Please call your primary care provider's office upon discharge to schedule a hospital follow up within 1 week. -For any concerning signs or symptoms please call 911 or proceed to the nearest emergency department Discharge Orders/Prescriptions Prescriptions: New metoprolol tartrate 25 mg Tablet 25 mg PO BID 30 Days Qty: 60 0RF Continued (DME) blood pressure monitor Kit See Rx Instructions .ROUTE .MEDSUPPLY Qty: 1 0RF Rx Instructions: check blood pressure daily pantoprazole 40 mg tablet,delayed release (DR/EC) 40 mg PO DAILY 90 Days Qty: 90 3RF (DME) lancets [OneTouch Delica Lancets] 30 gauge misc See Rx Instructions .ROUTE .MEDSUPPLY Qty: 200 3RF Rx Instructions: check blood sugar tid for type 2 DM simvastatin 20 mg tablet 20 mg PO QHS Qty: 90 3RF pramipexole [Mirapex] 1 mg tablet 2 mg PO QHS Qty: 180 3RF insulin glargine [Semglee Pen U-100 Insulin] 100 unit/mL (3 mL) insulin pen 30 unit subcut QAM sertraline 25 mg tablet 25 mg PO DAILY Otezla 30 MG tablet 30 mg PO BID acetaminophen [Tylenol] 325 mg Tablet 650 mg PO Q4H PRN PRN (Reason: Pain 1-10 Or Fever) Qty: 0 0RF ferrous sulfate 325 mg (65 mg iron) tablet 325 mg PO Q OTHER DAY furosemide 20 mg tablet 40 mg PO DAILY Rx Instructions: 40mg PO BID x2 days followed by Lasix 40mg PO Daily in the AM sucralfate [Carafate] 100 mg/mL suspension 10 ml PO BID Qty: 200 0RF finasteride 5 mg tablet 5 mg PO DAILY Qty: 90 3RF (DME) blood sugar diagnostic Strip See Rx Instructions .ROUTE .MEDSUPPLY Qty: 100 0RF Rx Instructions: One Touch Elena test strip, use to test blood sugar 3 times daily. Dx E11.42 hydralazine 25 mg tablet 25 mg PO BID Qty: 180 3RF ergocalciferol (vitamin D2) 1,250 mcg (50,000 unit) capsule 50,000 unit PO QMONTH Qty: 12 0RF (DME) pen needle, diabetic [BD Ultra-Fine Mini Pen Needle] 31 gauge x 3/16 needle See Rx Instructions .ROUTE .MEDSUPPLY Qty: 100 3RF Rx Instructions: daily for type 2 dm olmesartan 20 mg tablet 20 mg PO DAILY Qty: 90 1RF progesterone micronized 100 mg capsule 100 mg PO QAM Qty: 90 0RF flecainide 100 mg tablet 100 mg PO Q12H Qty: 180 2RF amlodipine 10 mg tablet 10 mg PO DAILY Qty: 90 3RF dulaglutide 4.5 mg/0.5 mL pen injector 4.5 mg SC .COMPLEX 90 Days Qty: 2 2RF Rx Instructions: 4.5 mg subcut every friday Discontinued metoprolol succinate 25 mg tablet extended release 24 hr 75 mg PO BID diazepam 5 mg tablet 5 mg PO Q8 PRN (Reason: Vertigo) Qty: 15 0RF Referrals / Follow Up: Sajan Rogers MD [Med Staff - Active Staff] - See Referral Note (You will be contacted by the office for your implantable loop recorder. If you do not hear from the office in 24 to 48 hours please call to inquire further about scheduling/appointment) Tosha Shrestha MD [Primary Care Provider] - In 1 Week Disposition Disposition (needs filled in before D/C Order can be placed): Home, Self Care
--- NOTE | 2022-06-19 17:31 | DS.PCM_ITS ---
Providers Date of Admission: 06/19/22 Date of Discharge: 06/19/22 Primary Care Physician: Dr. Consuelo Winchester MD Consultations 06/19/22 05:37 Consult: Cardiology Routine Consulting Provider: Mani Marvin Reason for Consult: Bradycardia with Syncope EMERGENT Consult: No MD Notified: Yes Date Notified: 06/19/22 Time Notified: 04:11 Method of Notification: Text Reason For Visit: SYNCOPE Diagnosis Discharge Diagnosis (1) Syncope: Status: Acute Code(s): R55 - Syncope and collapse (2) Bradycardia: Status: Acute Code(s): R00.1 - Bradycardia, unspecified (3) Debility: Status: Acute Code(s): R53.81 - Other malaise Plan #Syncope #History of SVT/atrial fibrillation #Bradycardia #MACHELLE #Debility #History of BPPV #Type 2 diabetes mellitus #CKD stage IIIb #Chronic heart failure with preserved ejection fraction #GERD/duodenal ulcer disease #Chronic normocytic anemia BPH Hypertension Restless leg syndrome Hyperlipidemia Vitamin D Obesity Medications at Discharge Home Medications finasteride 5 mg tablet 5 mg PO DAILY PROSTATE #90 tabs 11/03/18 apremilast 30 mg tablet (Otezla) 30 mg PO BID arthritis 11/22/20 acetaminophen 325 mg tablet (Tylenol) 650 mg PO Q4H PRN PRN Pain 1-10 Or Fever #0 tabs 12/15/20 blood sugar diagnostic #100 ea 01/04/21 blood pressure monitor #1 ea 03/13/21 hydralazine 25 mg tablet 25 mg PO BID #180 tabs 08/20/21 pantoprazole 40 mg tablet,delayed release 40 mg PO DAILY 90 days #90 tabs 10/09/21 lancets 30 gauge (OneTouch Delica Lancets) #200 ea 10/26/21 pramipexole 1 mg tablet (Mirapex) 2 mg PO QHS RLS #180 tabs 12/10/21 simvastatin 20 mg tablet 20 mg PO QHS #90 tabs 12/10/21 ergocalciferol (vitamin D2) 1,250 mcg (50,000 unit) capsule 50,000 unit PO QMONTH #12 caps 01/01/22 pen needle, diabetic 31 gauge x 3/16 (BD Ultra-Fine Mini Pen Needle) #100 ea 01/23/22 olmesartan 20 mg tablet 20 mg PO DAILY #90 tabs 03/18/22 progesterone micronized 100 mg capsule 100 mg PO QAM #90 caps 03/18/22 furosemide 20 mg tablet 40 mg PO DAILY 03/27/22 flecainide 100 mg tablet 100 mg PO Q12H HEART RATE #180 tabs 04/01/22 sertraline 25 mg tablet 25 mg PO DAILY 04/05/22 sucralfate 100 mg/mL oral suspension (Carafate) 10 ml PO BID #200 mL 04/12/22 ferrous sulfate 325 mg (65 mg iron) tablet 325 mg PO Q OTHER DAY supplement 05/15/22 insulin glargine 100 unit/mL (3 mL) subcutaneous pen (Semglee Pen U-100 Insulin) 30 unit subcut QAM 05/15/22 amlodipine 10 mg tablet 10 mg PO DAILY #90 tabs 05/31/22 dulaglutide 4.5 mg/0.5 mL subcutaneous pen injector 4.5 mg (0.5 mL) subcut .CO MPLEX 3 months #2 mL 05/31/22 metoprolol tartrate 25 mg tablet 25 mg PO BID 30 days #60 tabs 06/19/22 Hospital Course Summary of Care Provided Minutes Spent on Discharge: 25 Hospital Course: MARY SAN, is a 81 M who presented to the emergency department at [facility] on 06/19/2022 with a chief complaint of syncope. Reports that he did have 1 syncopal episode a couple years ago but was unable to describe it, has also had episodes of presyncope over the past several years most recently early afternoon and the morning of presentation.? With the actual syncopal epi sode he reports he was sleeping and got up to use the restroom, when he sat on the side of the bed he feels like everything went black.? He woke up on the floor.? Reports that he had the right side of his head but that it is not bothering him at this time. He was evaluated by cardiology and echo obtained which was unremarkable. Monitor on telemetry with some slight bradycardia. Initially beta-simona was stopped but was restarted at a smaller dose by cardiology. No significant events on telemetry since admission, spoke with cardiology and patient is cleared to be discharged with plan to schedule outpatient implantable loop recorder. Was initially admitted as inpatient but made an unanticipated fast improvement with negative work-up and therefore is reasonable to discharge before 2 midnights. Physical Exam Const alert and oriented x3 HEENT Head and Scalp: normocephalic Eyes EOMs intact bilaterally Neck supple Resp normal respiratory effort Cardio regular rate and regular rhythm GI soft to palpation, non-tender and non-distended Extremity Extremity Narrative: 1+ bilateral lower extremity pitting edema symmetrically Neuro moves all extremities Neuro Narrative: No overt focal neural trickle deficits appreciated Psych affect normal Weight / BMI Weight Weight: 125.5 kg Body Mass Index (BMI) 37.5 ABG / Lab / Microbiology Data Result Diagrams: 06/19/22 07:30 06/19/22 07:30 Laboratory: Laboratory Results - last 24 hr 06/19/22 01:54: WBC 5.9, RBC 3.57 L, Hgb 10.9 L, Hct 33.6 L, MCV 94.1 H, MCH 30.5, MCHC 32.4, RDW Std Deviation 48.9 H, RDW Coeff of Flavio 14.1, Plt Count 161, MPV 9.3, Immature Gran % (Auto) 0.700, Neut % (Auto) 66.9, Lymph % (Auto) 21.9, [place] % (Auto) 7.1, Eos % (Auto) 2.7, Baso % (Auto) 0.7, Absolute Neuts (auto) 4.0, Absolute Lymphs (auto) 1.30, Nucleated RBC % 0 06/19/22 01:54: Sodium 142, Potassium 4.3, Chloride 112 H, Carbon Dioxide 24.0, Anion Gap 6, BUN 33 H, Creatinine 1.56 H, Estim Creat Clear Calc 40.07, Est GFR (MDRD) Af Amer 55 L, Est GFR (MDRD) Non-Af 45 L, BUN/Creatinine Ratio 21.2 H, Glucose 123 H, Calcium 8.6, Total Bilirubin 0.50, AST 70 H, ALT 65 H, Alkaline Phosphatase 83, Troponin I High Sens 12, Total Protein 7.1, Albumin 3.3, Globulin 3.8, Albumin/Globulin Ratio 0.9 06/19/22 05:15: Troponin I High Sens 12 06/19/22 06:32: POC Glucose 109 H 06/19/22 07:30: WBC 7.0, RBC 3.62 L, Hgb 11.0 L, Hct 33.7 L, MCV 93.1, MCH 30.4, MCHC 32.6, RDW Std Deviation 47.8 H, RDW Coeff of Flavio 14.1, Plt Count 165, MPV 9.3, Immature Gran % (Auto) 0.600, Neut % (Auto) 68.9, Lymph % (Auto) 19.6, [place] % (Auto) 7.6, Eos % (Auto) 2.7, Baso % (Auto) 0.6, Absolute Neuts (auto) 4.8, Absolute Lymphs (auto) 1.36, Nucleated RBC % 0 06/19/22 07:30: Sodium 142, Potassium 4.3, Chloride 112 H, Carbon Dioxide 23.0, Anion Gap 7, BUN 28 H, Creatinine 1.31 H, Estim Creat Clear Calc 47.72, Est GFR (MDRD) Af Amer 67, Est GFR (MDRD) Non-Af 56 L, BUN/Creatinine Ratio 21.4 H, Glucose 109 H, Calcium 8.4 L, Phosphorus 2.8, Magnesium 1.8, Total Bilirubin 0.40, AST 46 H, ALT 57, Alkaline Phosphatase 82, Total Protein 6.6, Albumin 3.0 L, Globulin 3.6, Albumin/Globulin Ratio 0.8 L, TSH 0.92 06/19/22 07:30: Troponin I High Sens 14 06/19/22 10:19: POC Glucose 169 H 06/19/22 12:18: POC Glucose 110 H 06/19/22 16:14: POC Glucose 124 H Radiography Diagnostic Testing: Radiology Impression Brain CT 06/19/22 02:21 IMPRESSION: No acute intracranial abnormality. Minimal right posterior parietal scalp swelling. Electronically Signed: Daniel Kam MD at 3:38 EDT Reading Location ID and State: Misti Muniz MD , Service support , Chest X-Ray 06/19/22 02:21 IMPRESSION: Slight increase in mild vascular congestion. Stable mild cardiomegaly. Electronically Signed: Daniel Kam MD at 3:07 EDT Reading Location ID and State: Misti Muniz MD , Service support , Echocardiogram 06/19/22 05:55 Interpretation Summary Normal LV size. Left ventricular systolic function is normal. The estimated ejection fraction is 65 %. The left atrium is moderately enlarged. Stage 2 diastolic dysfunction. Mild (1+) eccentric aortic valve insufficiency. Ordering Physician: Claudine Field Referring Physician: CONSUELO WINCHESTER Performed By: Darlene Jain RDCS D/C Instructions Discharge Diet: Carb Control Diet Meaningful Use Info Meaningful Use Diagnoses (Choose all that apply): None applicable Discharge Plan Admission Admit Date/Time: 06/19/22 03:28 Primary Reason for Your Visit: Episode of passing out Attending Provider: Margarita Jackson Primary Care Provider: Consuelo Winchester Consulting Providers: Mani Marvin ; Claudine Field Instructions Patient Instructions: ED Dizziness, Uncertain Cause, ED Fainting, Uncertain Cause Additional Instructions / Restrictions: *Please take this with you to your next doctors appointment* ?He will follow with Dr. Rogers, the heart doctor rigoberto in the hospital, upon discharge ? His office will schedule an implantable loop recorder for you which is a heart monitor that you wear for an extended period of time to monitor for reasons of passing out ?Please continue to check your blood sugar, watch for signs and symptoms of hypoglycemia, please call your primary care physician if there are any questions or concerns. ? Due to a slightly low heart rate your metoprolol succinate was changed to metoprolol tartrate and the dose was decreased to 25 mg twice a day, and new prescription was sent to your preferred pharmacy on file. This may need further adjustment, please follow-up with both the heart doctor and your primary care physician -Please call your primary care provider's office upon discharge to schedule a hospital follow up within 1 week. -For any concerning signs or symptoms please call 911 or proceed to the nearest emergency department Discharge Orders/Prescriptions Prescriptions: New metoprolol tartrate 25 mg Tablet 25 mg PO BID 30 Days Qty: 60 0RF Continued (DME) blood pressure monitor Kit See Rx Instructions .ROUTE .MEDSUPPLY Qty: 1 0RF Rx Instructions: check blood pressure daily pantoprazole 40 mg tablet,delayed release (DR/EC) 40 mg PO DAILY 90 Days Qty: 90 3RF (DME) lancets [OneTouch Delica Lancets] 30 gauge misc See Rx Instructions .ROUTE .MEDSUPPLY Qty: 200 3RF Rx Instructions: check blood sugar tid for type 2 DM simvastatin 20 mg tablet 20 mg PO QHS Qty: 90 3RF pramipexole [Mirapex] 1 mg tablet 2 mg PO QHS Qty: 180 3RF insulin glargine [Semglee Pen U-100 Insulin] 100 unit/mL (3 mL) insulin pen 30 unit subcut QAM sertraline 25 mg tablet 25 mg PO DAILY Otezla 30 MG tablet 30 mg PO BID acetaminophen [Tylenol] 325 mg Tablet 650 mg PO Q4H PRN PRN (Reason: Pain 1-10 Or Fever) Qty: 0 0RF ferrous sulfate 325 mg (65 mg iron) tablet 325 mg PO Q OTHER DAY furosemide 20 mg tablet 40 mg PO DAILY Rx Instructions: 40mg PO BID x2 days followed by Lasix 40mg PO Daily in the AM sucralfate [Carafate] 100 mg/mL suspension 10 ml PO BID Qty: 200 0RF finasteride 5 mg tablet 5 mg PO DAILY Qty: 90 3RF (DME) blood sugar diagnostic Strip See Rx Instructions .ROUTE .MEDSUPPLY Qty: 100 0RF Rx Instructions: One Touch Elena test strip, use to test blood sugar 3 times daily. Dx E11.42 hydralazine 25 mg tablet 25 mg PO BID Qty: 180 3RF ergocalciferol (vitamin D2) 1,250 mcg (50,000 unit) capsule 50,000 unit PO QMONTH Qty: 12 0RF (DME) pen needle, diabetic [BD Ultra-Fine Mini Pen Needle] 31 gauge x 3/16 needle See Rx Instructions .ROUTE .MEDSUPPLY Qty: 100 3RF Rx Instructions: daily for type 2 dm olmesartan 20 mg tablet 20 mg PO DAILY Qty: 90 1RF progesterone micronized 100 mg capsule 100 mg PO QAM Qty: 90 0RF flecainide 100 mg tablet 100 mg PO Q12H Qty: 180 2RF amlodipine 10 mg tablet 10 mg PO DAILY Qty: 90 3RF dulaglutide 4.5 mg/0.5 mL pen injector 4.5 mg SC .COMPLEX 90 Days Qty: 2 2RF Rx Instructions: 4.5 mg subcut every friday Discontinued metoprolol succinate 25 mg tablet extended release 24 hr 75 mg PO BID diazepam 5 mg tablet 5 mg PO Q8 PRN (Reason: Vertigo) Qty: 15 0RF Referrals / Follow Up: Sajan Rogers MD [Med Staff - Active Staff] - See Referral Note (You will be contacted by the office for your implantable loop recorder. If you do not hear from the office in 24 to 48 hours please call to inquire further about scheduling/appointment) Consuelo Winchester MD [Primary Care Provider] - In 1 Week Disposition Disposition (needs filled in before D/C Order can be placed): Home, Self Care Charges/Coding Visit Charges Inpatient E&M: 66927 Disch Hosp
== END 2022-06-19 18:26 | disposition home or self-care (01) | DRG 312 ==
LOC: ED 03:37 → PCU 07:06
PROVIDERS: Admitting Provider Internal Medicine; Emergency Provider Emergency Medicine; PCP Internal Medicine; Visit Provider Internal Medicine
DX: R55 Syncope and collapse (principal); I13.0 Hypertensive heart and chronic kidney disease with heart failure and stage 1 through stage 4 chronic kidney disease, or unspecified chronic kidney disease; I47.1 Supraventricular tachycardia; I50.32 Chronic diastolic (congestive) heart failure; D63.1 Anemia in chronic kidney disease; E11.22 Type 2 diabetes mellitus with diabetic chronic kidney disease; D50.0 Iron deficiency anemia secondary to blood loss (chronic); E11.42 Type 2 diabetes mellitus with diabetic polyneuropathy; I48.0 Paroxysmal atrial fibrillation; G25.81 Restless legs syndrome; Z79.4 Long term (current) use of insulin; N18.32 Chronic kidney disease, stage 3b; E78.5 Hyperlipidemia, unspecified; I25.10 Atherosclerotic heart disease of native coronary artery without angina pectoris; R00.1 Bradycardia, unspecified; K21.9 Gastro-esophageal reflux disease without esophagitis; G47.33 Obstructive sleep apnea (adult) (pediatric); R53.81 Other malaise; N40.0 Benign prostatic hyperplasia without lower urinary tract symptoms; Z79.899 Other long term (current) drug therapy; E66.9 Obesity, unspecified; Z68.38 Body mass index [BMI] 38.0-38.9, adult
CPT/HCPCS: 36415; 70450; 71045; 80053; 82962; 83735; 84100; 84443; 84484; 85025; 93005; 93306; 97162; 97166; 99251; 99285; A4216; G0463

== ENCOUNTER 2022-06-26 06:28 | Day surgery (SDC) | payer MEDICARE, BC, SELFPAY ==
[2022-06-25 09:11] VITALS: BMI 37.4
--- NOTE | 2022-06-26 06:00 | HP_ITS ---
Assessment & Plan Assessment/Plan (1) Syncope: PLAN: He does present with a syncopal episode etiology of which is not entirely clear. His presenting electrocardiogram demonstrated sinus rhythm with no acute changes. His monitoring recording thus far in the hospital has demonstrated sinus rhythm and sinus bradycardia which does not appear to be severe. He has not had any episodes of atrial fibrillation here. * I would recommend that we continue to monitor him and obtain an echocardiogram. If nothing is unrevealing in the next few hours then I would recommend that we repeat the 30-day event monitor or consider an implantable loop recorder as an outpatient. (2) Hypertension: QUALIFIERS: Hypertension type: primary hypertension Qualified Code(s): I10 - Essential (primary) hypertension PLAN: His blood pressure appears to be under good control and I would not recommend any changes at this time. Thank you for allowing me to participate in the care of your patient. Please don't hesitate to call if any issues arise. 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 He appears to be maintaining sinus rhythm at this time and I would not recommend we make any changes. (4) A-fib: PLAN: He has had a previous history of atrial fibrillation. The plan will be to continue him on the current medical therapy with the flecainide and the beta- simona. I have not seen any significant pauses to warrant discontinuation or changing of the above dosages. HPI Consult Data Date of Consult: 06/19/22 HPI Narrative HPI Narrative: MARY SAN, is a 81 M who presents to the emergency room after he says that he was getting out of bed and apparently passed out. He had turned over in bed and stepped out and that is the last thing that he remembers. He has had some problems with his BiPAP machine and says he thinks it may be contributing to the issue. He was evaluated in the emergency room and was noted to be in sinus rhythm with no acute changes. He is a gentleman with a history of minimal coronary artery disease, supraventricular tachyarrhythmia status post ablation for narrow complex tachycardia, and a history of atrial fibrillation status post cardioversion in 2013.? He also has a history of MACHELLE with BiPAP therapy.? He has had occasional dizzy spells but these appear to be minimal. He had a CT and MRI in 2018 both of which were normal and a pharmacologic stress test in March 2019 which was also normal.? His echo test in 2018 demonstrated an ejection fraction of 65% with no wall motion abnormalities and his 30-day event monitor demonstrated no atrial fibrillation, no pauses.? He was in the hospital a while ago for severe hypertension and was treated and put on amlodipine as well as hydralazine which he appears to be tolerating quite well. He denies chest, arm, jaw, or neck discomfort.? He denies palpitations.? He states increasing bilateral lower extremity edema.? He acknowledges shortness of breath with activity such as going up stairs and working outside.? He denies shortness of breath at rest, orthopnea, cough, PND.? He acknowledges dizziness, weakness, and vertigo.? He denies lightheadedness, near-syncope, or syncope until now.? [facility] Medical History (Updated 06/19/22 @ 07:[address] Sajan Rogers MD) (HFpEF) heart failure with preserved ejection fraction (12/12/20) A-fib Acute respiratory failure with hypoxia Anemia Anemia of chronic renal failure, stage 3 (moderate) Anxiety and depression Atherosclerotic heart disease of resighini coronary artery without angina pectoris Atrial flutter Atypical chest pain Back pain BMI 34.0-34.9,adult BPH (benign prostatic hyperplasia) BPPV (benign paroxysmal positional vertigo) Cardiac dysrhythmia Cardiology follow-up encounter De Quervain's tenosynovitis Depression Dermatitis Diabetes mellitus Diabetic kidney disease Dizziness DM type 2 with diabetic peripheral neuropathy DVT (deep venous thrombosis) Dyslipidemia Dysphagia Essential (primary) hypertension Fall Fracture of great toe Gastric reflux Health care maintenance History of echocardiogram History of edema History of GI bleed History of peptic ulcer History of renal calculi History of ulceration HLD (hyperlipidemia) Injury of head and neck Iron deficiency anemia Iron deficiency anemia due to chronic blood loss Kidney hematoma (12/08/20) Left knee pain Left leg DVT Loss of equilibrium Low iron Malaise Near syncope Orthostatic hypotension MACHELLE (obstructive sleep apnea) Pain of left lower extremity Paroxysmal atrial flutter Pneumonia Polypharmacy Prostate disease Psoriasis Renal calculi RLS (restless legs syndrome) Sex disorder Suicidal ideation SVT (supraventricular tachycardia) Urolithiasis Vertigo Walker as ambulation aid Wears glasses Home Medications finasteride 5 mg tablet 5 mg PO DAILY PROSTATE #90 tabs 11/03/18 [Rx Last Taken 08/05/21] apremilast 30 mg tablet (Otezla) 30 mg PO BID arthritis 11/22/20 [History Last Taken 08/05/21] acetaminophen 325 mg tablet (Tylenol) 650 mg PO Q4H PRN PRN Pain 1-10 Or Fever #0 tabs 12/15/20 [Rx Last Taken Unknown] blood sugar diagnostic #100 ea 01/04/21 [Rx Last Taken Unknown] blood pressure monitor #1 ea 03/13/21 [Rx Last Taken Unknown] hydralazine 25 mg tablet 25 mg PO BID #180 tabs 08/20/21 [Rx Last Taken Unknown] pantoprazole 40 mg tablet,delayed release 40 mg PO DAILY 90 days #90 tabs 10/09/21 [Rx Last Taken Unknown] lancets 30 gauge (Nuforce Lancets) #200 ea 10/26/21 [Rx Last Taken Unknown] pramipexole 1 mg tablet (Mirapex) 2 mg PO QHS RLS #180 tabs 12/10/21 [Rx Last Taken Unknown] simvastatin 20 mg tablet 20 mg PO QHS #90 tabs 12/10/21 [Rx Last Taken Unknown] ergocalciferol (vitamin D2) 1,250 mcg (50,000 unit) capsule 50,000 unit PO QMONTH #12 caps 01/01/22 [Rx Last Taken Unknown] pen needle, diabetic 31 gauge x 3/16 (BD Ultra-Fine Mini Pen Needle) #100 ea 01/23/22 [Rx Last Taken Unknown] diazepam 5 mg tablet 5 mg PO Q8 PRN Vertigo #15 tabs 01/30/22 [Rx Last Taken Unknown] olmesartan 20 mg tablet 20 mg PO DAILY #90 tabs 03/18/22 [Rx Last Taken Unknown] progesterone micronized 100 mg capsule 100 mg PO QAM #90 caps 03/18/22 [Rx Last Taken Unknown] furosemide 20 mg tablet 40 mg PO DAILY 03/27/22 [History Last Taken Unknown] flecainide 100 mg tablet 100 mg PO Q12H HEART RATE #180 tabs 04/01/22 [Rx Last Taken Unknown] sertraline 25 mg tablet 25 mg PO DAILY 04/05/22 [History Last Taken Unknown] sucralfate 100 mg/mL oral suspension (Carafate) 10 ml PO BID #200 mL 04/12/22 [Rx Last Taken Unknown] ferrous sulfate 325 mg (65 mg iron) tablet 325 mg PO Q OTHER DAY supplement 05/15/22 [History Last Taken Unknown] insulin glargine 100 unit/mL (3 mL) subcutaneous pen (Semglee Pen U-100 Insulin) 30 unit subcut QAM 05/15/22 [History Last Taken Unknown] metoprolol succinate 25 mg tablet,extended release 24 hr 75 mg PO BID 05/15/22 [History Last Taken Unknown] amlodipine 10 mg tablet 10 mg PO DAILY #90 tabs 05/31/22 [Rx Last Taken Unknown] dulaglutide 4.5 mg/0.5 mL subcutaneous pen injector 4.5 mg (0.5 mL) subcut .COMPLEX 3 months #2 mL 05/31/22 [Rx Last Taken Unknown] Allergy/AdvReac Type Severity Reaction Status Date / Time hydrocodone bitartrate AdvReac Severe Other Verified 06/19/22 01:46 [From Vicodin] hydroxyzine AdvReac Severe Other Verified 06/19/22 01:46 Family History Father Diabetes Hypertension Cancer Lung cancer Mother Hypertension CVA (cerebral vascular accident) Sister Diabetes Son Diabetes Surgical History History of cardioversion (2015) History of cataract surgery History of left heart catheterization (02/16/13) History of lithotripsy (11/2020) History of radiofrequency ablation procedure for cardiac arrhythmia (02/05/06) history of right knee cap fracture History of right knee surgery Status post laser lithotripsy of ureteral calculus Status post left foot surgery STENT PLACEMENT FOR KIDNEY STONE Social History (Updated 06/19/22 @ 04:[address] Claudine Field DO) household members: spouse housing: house Smoking Status: Never smoker how long ago did patient quit smokin second hand exposure: No alcohol intake: never substance use type: does not use caffeine: No what type of physical activity do you participate in: none seatbelt use: always do you feel safe at home: Yes ROS Constitutional Constitutional: Denies fever(s) or weight loss Eyes Eyes: Reports systems reviewed and no addt'l complaints, except as documented ENT HEENT: Reports systems reviewed and no addt'l complaints, except as documented Cardiovascular Cardiovascular: Denies chest pain at rest, chest pain with activity, dyspnea at rest, dyspnea on exertion, edema, palpitations or paroxysmal nocturnal dyspnea Respiratory/Chest Respiratory/Chest: Denies dyspnea on exertion, productive cough, shortness of breath at rest or shortness of breath with exertion Gastrointestinal Gastrointestinal: Denies change in bowel habits, nausea, vomiting or weight changes Genitourinary Genitourinary: Denies difficulty urinating Musculoskeletal Musculoskeletal: Denies joint stiffness or muscle weakness Integumentary Integumentary: Denies lesions Neurologic Neurologic: Reports dizziness and syncope Psychiatric Psychiatric: Denies anxiety Endocrine Endocrinology: Denies excessive sweating or fatigue Hematologic/Lymphatic Hematologic/Lymphatic: Denies anemia Allergic/Immunologic Allergic/Immunologic: Denies seasonal rhinorrhea Physical Exam Const alert, oriented x3 and no apparent distress General Appearance: cooperative HEENT hearing grossly normal bilaterally Head and Scalp: atraumatic Eyes EOMs intact bilaterally Neck General: normal visual inspection Chest inspection of chest normal and palpation of chest normal Resp normal respiratory effort Auscultation: clear to auscultation bilaterally Cardio regular rate, regular rhythm, S1 normal heart sound and S2 normal heart sound Jugular Venous Distention: JVD GI normal to inspection, nondistended, normoactive bowel sounds Extremity normal capillary refill and no pedal edema Peripheral Pulses: Yes pulses 2+ throughout and femoral pulses present Skin no rashes or lesions noted Neuro oriented x3 and CN's II-XII intact bilaterally Psych Appearance: grossly normal and appropriate Risk Stratification Risk Stratification Applicable: No Objective Data Vital Signs: Vital Signs Temp Pulse Resp BP Pulse Ox O2 Del Method O2 Flow Rate 98.0 F 62 16 158/61 H 94 Nasal Cannula 4 06/19/22 06:28 06/19/22 06:28 06/19/22 06:28 06/19/22 06:28 06/19/22 06:28 06/19/22 06:28 06/19/22 06:28 Oxygen Flow Rate (L/min) 4 Oxygen Delivery Method Nasal Cannula Weight: 276 lb 10.882 oz Body Mass Index (BMI) 37.5 Lab / Micro Data Result Diagrams: 06/19/22 01:54 06/19/22 01:54 Labs: Laboratory Results - last 24 hr 06/19/22 01:54: WBC 5.9, RBC 3.57 L, Hgb 10.9 L, Hct 33.6 L, MCV 94.1 H, MCH 30.5, MCHC 32.4, RDW Std Deviation 48.9 H, RDW Coeff of Flavio 14.1, Plt Count 161, MPV 9.3, Immature Gran % (Auto) 0.700, Neut % (Auto) 66.9, Lymph % (Auto) 21.9, Barry % (Auto) 7.1, Eos % (Auto) 2.7, Baso % (Auto) 0.7, Absolute Neuts (auto) 4.0, Absolute Lymphs (auto) 1.30, Nucleated RBC % 0 06/19/22 01:54: Sodium 142, Potassium 4.3, Chloride 112 H, Carbon Dioxide 24.0, Anion Gap 6, BUN 33 H, Creatinine 1.56 H, Estim Creat Clear Calc 40.07, Est GFR (MDRD) Af Amer 55 L, Est GFR (MDRD) Non-Af 45 L, BUN/Creatinine Ratio 21.2 H, Glucose 123 H, Calcium 8.6, Total Bilirubin 0.50, AST 70 H, ALT 65 H, Alkaline Phosphatase 83, Troponin I High Sens 12, Total Protein 7.1, Albumin 3.3, Globulin 3.8, Albumin/Globulin Ratio 0.9 06/19/22 05:15: Troponin I High Sens 12 06/19/22 06:32: POC Glucose 109 H Cardiology Labs/Tests 06/19/22 01:54: WBC 5.9, RBC 3.57 L, Hgb 10.9 L, Hct 33.6 L, MCV 94.1 H, MCH 30.5, MCHC 32.4, Plt Count 161, MPV 9.3, Immature Gran % (Auto) 0.700, Neut % (Auto) 66.9, Lymph % (Auto) 21.9, Barry % (Auto) 7.1, Eos % (Auto) 2.7, Baso % (Auto) 0.7, Absolute Neuts (auto) 4.0, Nucleated RBC % 0 06/19/22 01:54: Sodium 142, Potassium 4.3, Chloride 112 H, Carbon Dioxide 24.0, Anion Gap 6, BUN 33 H, Creatinine 1.56 H, Est GFR (MDRD) Af Amer 55 L, Est GFR (MDRD) Non-Af 45 L, BUN/Creatinine Ratio 21.2 H, Glucose 123 H, Calcium 8.6, Total Bilirubin 0.50 Rhythm: EKG: ECHO: Stress Test: Cardiac Cath: PCI: CT Surgery: Holter monitor: EPS: PPM: CXR: Chest CT Scan: Radiography Diagnostic Testing: Radiology Impression Brain CT 06/19/22 02:21 IMPRESSION: No acute intracranial abnormality. Minimal right posterior parietal scalp swelling. Electronically Signed: Daniel Kam MD at 3:38 EDT Reading Location ID and State: [place] / , Service support , Chest X-Ray 06/19/22 02:21 IMPRESSION: Slight increase in mild vascular congestion. Stable mild cardiomegaly. Electronically Signed: Daniel Kam MD at 3:07 EDT Reading Location ID and State: [place] [facility] MD , Service support ,
--- NOTE | 2022-06-26 07:50 | CL.IE_ITS ---
Patient: MARY SAN Study Date: 06/26/2022 Performing: Sajan Rogers MD : [id number] Age: 81 Gender: male PROCEDURES PERFORMED [id number])INSERTION OF LOOP RECORDER INDICATIONS PROCEDURE DETAILS The patient was brought to the Catheterization Lab in the postabsorptive nonsedated state. Informed consent was obtained prior to the procedure. Local anesthetic was given subcutaneously to the right upper chest area with Lidocaine 2%. Incision was made to the left upper chest. Steri-strips applied to Lt chest area. The patient tolerated the procedure well. Estimated Blood Loss: < 10 mls IMPLANTED / EX-PLANTED DEVICES IMPLANTED DEVICE(S): ICM Loop Recorder - Warehouse Analyst: [employer], Model # [id number] , Serial # [id number] DEVICE PARAMETERS CONCLUSIONS / RECOMMENDATIONS PROCEDURE MEDICATIONS Versed 1 mg IV Oxygen: 2 L/min via nasal cannula Ancef 2 Gm IV @ 06/26/2022 07:40:28 Signed By Sajan Rogers MD On 06/26/2022 07:50:28 Sajan Rogers MD
== END 2022-06-26 09:22 | disposition home or self-care (01) ==
LOC: CLSP 06:30
PROVIDERS: PCP Internal Medicine; Referring Provider Internal Medicine Cardiovascular Disease; Visit Provider Internal Medicine Cardiovascular Disease
DX: Z95.0 Presence of cardiac pacemaker (principal); I13.0 Hypertensive heart and chronic kidney disease with heart failure and stage 1 through stage 4 chronic kidney disease, or unspecified chronic kidney disease; I50.32 Chronic diastolic (congestive) heart failure; I47.1 Supraventricular tachycardia; I48.0 Paroxysmal atrial fibrillation; Z79.4 Long term (current) use of insulin; N18.30 Chronic kidney disease, stage 3 unspecified; I25.10 Atherosclerotic heart disease of native coronary artery without angina pectoris; G47.33 Obstructive sleep apnea (adult) (pediatric); K21.9 Gastro-esophageal reflux disease without esophagitis; E78.5 Hyperlipidemia, unspecified; Z86.718 Personal history of other venous thrombosis and embolism; Z79.899 Other long term (current) drug therapy
CPT/HCPCS: 33285; 99152

== ENCOUNTER → 2022-07-03 | Outpatient (CLI) | payer MEDICARE, BC, SELFPAY ==
[2022-07-03 14:11] LABS: BNP,B-Type NATRIURETIC PEPTIDE 279.2 pg/mL (0-100)
[2022-07-03 14:13] LABS: Anion Gap 7 (5-15); BUN 28 mg/dL (7-18); BUN/Creat Ratio 21.1 RATIO (10-20); Chloride 108 mmol/L (98-107); Creatinine, Serum 1.33 mg/dL (0.70-1.30); EST Glomerular Filtration Rate 55 mL/min (>60); Est Glom Filt Rate - Afr Amer 66 mL/min (>60); Glucose 114 mg/dL (74-106); Potassium 4.2 mmol/L (3.5-5.1); Sodium Level 140 mmol/L (136-145)
== END | disposition home or self-care (01) ==
LOC: LAB 12:11
PROVIDERS: PCP Internal Medicine; Referring Provider Internal Medicine Cardiovascular Disease; Visit Provider Internal Medicine Cardiovascular Disease
DX: I50.30 Unspecified diastolic (congestive) heart failure (principal); I48.0 Paroxysmal atrial fibrillation; I48.92 Unspecified atrial flutter; N18.30 Chronic kidney disease, stage 3 unspecified; Z98.890 Other specified postprocedural states; R55 Syncope and collapse; R06.02 Shortness of breath; R60.9 Edema, unspecified; R63.5 Abnormal weight gain; D63.1 Anemia in chronic kidney disease
CPT/HCPCS: 36415; 80048; 83880

== ENCOUNTER 2022-07-12 10:05 | Emergency (ER) | payer MEDICARE, BC, SELFPAY ==
[2022-07-12 10:06] VITALS: BP 192/58; PULSE 69; RESP 18; TEMP 36.3; O2SAT 99; BMI 38.0
[2022-07-12 10:20] VITALS: PULSE 66; O2SAT 100
--- NOTE | 2022-07-12 10:53 | EKG12_ITS ---
Test Reason : DIZZINESS Blood Pressure : / mmHG Vent. Rate : 064 BPM Atrial Rate : 064 BPM P-R Int : 210 ms QRS Dur : 098 ms QT Int : 454 ms P-R-T Axes : 002 055 068 degrees QTc Int : 468 ms Sinus rhythm with 1st degree A-V block Nonspecific ST abnormality Abnormal ECG Confirmed by JORDIN DUNCAN, SYBIL ([id number]), department editor NITZA ROJAS ([id number]) on 07/15/2022 11:20:52 AM Referred By: LAY Confirmed By:SYBIL BRENNER MD
--- NOTE | 2022-07-12 10:54 | EX.ED.DYSGE1 ---
HPI History of Present Illness Chief Complaint: Dizziness Detail of Chief Complaint: Lightheadedness not dizziness, lack of energy Informant: patient and spouse/S.O. Onset/Context/Timing Onset: Weeks Context: Sudden Onset Timing: Continuous and Waxes and wanes Quality: Orthostatic symptoms, by ocular blurred vision, lack of energy, lack of int Location: Multisystem and psychosocial Current Severity: Moderate Maximum Severity: Moderate Worsened by: Ever since my heart rate was slow Relieved by: Nothing Associated Symptoms Associated Symptoms: Per HPI narrative Narrative Narrative: Patient is a 82-year-old male with history of paroxysmal atrial fibrillation, bradycardia, venous insufficiency, obesity, iron deficiency anemia, chronic renal failure, stage III, type 2 diabetes with neuropathy, obstructive sleep apnea. Patient made comment that he thought things would get better once he was on BiPAP. They are not. He has chronic intermittent diarrhea. He denies black or maroon-colored stool. He has a remote history of DVT. He is not on anticoagulants since he fell and had a subdural requiring intervention. He denies fever, chills night sweats. He denies chest discomfort, orthopnea, PND. He states he sometimes sleeps in a chair because he has to get up to urinate because he is on a diuretic and has history of benign prostatic hypertrophy. Patient states his legs are normally swollen. They are not as swollen as normal. He denies headache. He denies double vision or loss of vision. He denies ringing in ears decreased hearing. Nuys trouble speech or swallowing. He denies spinning i.e. himself or the room. His definition of dizziness is lightheadedness. He feels like his he is going to fall. He is very hard of hearing and questions had to be asked several times. When asked his age he knew the correct answer. He did not know the day of the month even though yesterday was his birthday. He did eventually answer June correctly. It took him time to answer the year. Prior similar symptoms: Yes Recent Illness/Hospitalization: Yes [facility] Medical History (HFpEF) heart failure with preserved ejection fraction (12/12/20) Acute respiratory failure with hypoxia Anemia Anemia of chronic renal failure, stage 3 (moderate) Anxiety and depression Atherosclerotic heart disease of [place] coronary artery without angina pectoris Atrial flutter Atypical chest pain Back pain BMI 34.0-34.9,adult BPH (benign prostatic hyperplasia) BPPV (benign paroxysmal positional vertigo) Bradycardia Cardiac dysrhythmia Cardiology follow-up encounter CHF (congestive heart failure) De Quervain's tenosynovitis Debility Depression Dermatitis Diabetes mellitus Diabetic kidney disease Dizziness DM type 2 with diabetic peripheral neuropathy DVT (deep venous thrombosis) Dyslipidemia Dysphagia Essential (primary) hypertension Fall Flu vaccine need Fracture of great toe Gastric reflux Health care maintenance History of echocardiogram History of edema History of GI bleed History of peptic ulcer History of renal calculi History of ulceration HLD (hyperlipidemia) Injury of head and neck Iron deficiency anemia Iron deficiency anemia due to chronic blood loss Kidney hematoma (12/08/20) Left knee pain Left leg DVT Loss of equilibrium Low iron Malaise Near syncope Orthostatic hypotension MACHELLE (obstructive sleep apnea) Pain of left lower extremity Paroxysmal atrial fibrillation Paroxysmal atrial flutter Pneumonia Polypharmacy Prostate disease Psoriasis Recurrent syncope (06/19/22) Renal calculi RLS (restless legs syndrome) Sex disorder Suicidal ideation SVT (supraventricular tachycardia) Urolithiasis Venous insufficiency of both lower extremities Vertigo Walker as ambulation aid Wears glasses Home Medications finasteride 5 mg tablet 5 mg PO DAILY PROSTATE #90 tabs 11/03/18 [Rx Last Taken 08/05/21] acetaminophen 325 mg tablet (Tylenol) 650 mg PO Q4H PRN PRN Pain 1-10 Or Fever #0 tabs 12/15/20 [Rx Last Taken Unknown] blood sugar diagnostic #100 ea 01/04/21 [Rx Last Taken Unknown] blood pressure monitor #1 ea 03/13/21 [Rx Last Taken Unknown] hydralazine 25 mg tablet 25 mg PO BID #180 tabs 08/20/21 [Rx Last Taken 06/26/22] pantoprazole 40 mg tablet,delayed release 40 mg PO DAILY 90 days #90 tabs 10/09/21 [Rx Last Taken Unknown] lancets 30 gauge (OneTouch [employer] Lancets) #200 ea 10/26/21 [Rx Last Taken Unknown] pramipexole 1 mg tablet (Mirapex) 2 mg PO QHS RLS #180 tabs 12/10/21 [Rx Last Taken Unknown] simvastatin 20 mg tablet 20 mg PO QHS #90 tabs 12/10/21 [Rx Last Taken Unknown] ergocalciferol (vitamin D2) 1,250 mcg (50,000 unit) capsule 50,000 unit PO QMONTH #12 caps 01/01/22 [Rx Last Taken Unknown] pen needle, diabetic 31 gauge x 3/16 (BD Ultra-Fine Mini Pen Needle) #100 ea 01/23/22 [Rx Last Taken Unknown] flecainide 100 mg tablet 100 mg PO Q12H HEART RATE #180 tabs 04/01/22 [Rx Last Taken 06/26/22] sertraline 25 mg tablet 25 mg PO DAILY 04/05/22 [History Last Taken Unknown] ferrous sulfate 325 mg (65 mg iron) tablet 325 mg PO Q OTHER DAY supplement 05/15/22 [History Last Taken Unknown] insulin glargine 100 unit/mL (3 mL) subcutaneous pen (Semglee Pen U-100 Insulin) 30 unit subcut QAM 05/15/22 [History Last Taken Unknown] dulaglutide 4.5 mg/0.5 mL subcutaneous pen injector 4.5 mg (0.5 mL) subcut .COMPLEX 3 months #2 mL 05/31/22 [Rx Last Taken Unknown] progesterone micronized 100 mg capsule 100 mg PO QAM #90 caps 06/24/22 [Rx Last Taken Unknown] olmesartan 40 mg tablet 40 mg PO DAILY #90 tabs 06/28/22 [Rx Last Taken Unknown] compress.stocking,knee,reg,lrg #2 ea 07/05/22 [Rx Last Taken Unknown] amlodipine 10 mg tablet 5 mg PO DAILY #90 tabs 07/09/22 [Rx Last Taken Unknown] furosemide 40 mg tablet 80 mg PO BID #360 tabs 07/10/22 [Rx Last Taken Unknown] Allergy/AdvReac Type Severity Reaction Status Date / Time hydrocodone bitartrate AdvReac Severe Other Verified 07/12/22 10:08 [From Vicodin] hydroxyzine AdvReac Severe Other Verified 07/12/22 10:08 Family History Father Diabetes Hypertension Cancer Lung cancer Mother Hypertension CVA (cerebral vascular accident) Sister Diabetes Son Diabetes Surgical History History of cardioversion (2015) History of cataract surgery History of left heart catheterization (02/16/13) History of lithotripsy (11/2020) History of loop recorder (06/26/22) History of radiofrequency ablation procedure for cardiac arrhythmia (02/05/06) history of right knee cap fracture History of right knee surgery Status post laser lithotripsy of ureteral calculus Status post left foot surgery STENT PLACEMENT FOR KIDNEY STONE Social History household members: spouse housing: house Smoking Status: Never smoker how long ago did patient quit smokin second hand exposure: No alcohol intake: never substance use type: does not use caffeine: No what type of physical activity do you participate in: none seatbelt use: always do you feel safe at home: Yes ROS ROS ED Constitutional Constitutional ED: Denies chills, fever(s), subjective, sweats or weight loss Eyes Eyes: Reports blurry vision bilateral; Denies change in vision or diplopia ENT ENT ED: Denies ear pain, rhinorrhea or sore throat Cardiovascular Cardiovascular: Reports other Details: Slow heart rate with last ER visit. Not this morning. ; Denies chest pain, orthopnea, palpitations, paroxysmal nocturnal dyspnea or racing heartbeat Respiratory/Chest Respiratory/Chest: Reports dyspnea, dyspnea on exertion and other Details: The shortness of breath is a chronic issue. ; Denies cough, orthopnea or paroxysmal nocturnal dyspnea Gastrointestinal Gastrointestinal: Reports diarrhea; Denies abdominal pain, constipation, melena, nausea or vomiting Genitourinary Genitourinary ED: Denies dysuria, hematuria or urinary frequency Musculoskeletal Musculoskeletal: Denies arthralgias, back pain, myalgias or neck pain Integumentary Denies abscess, Abrasions or rash Neurologic Neurologic: Reports weakness; Denies headache(s) or paresthesias Psychiatric Psychiatric: Reports depression; Denies anxiety Endocrine Endocrinology: Denies polydipsia, polyphagia or polyuria Hematologic/Lymphatic Hematologic/Lymphatic: Denies easy bleeding, easy bruising or lymphadenopathy EXAM Physical Exam Const Vital Signs: 07/12/22 10:06 07/12/22 10:20 07/12/22 10:21 Temperature 97.4 F L Temperature Source Temporal Pulse Rate 69 66 Pulse Rate [Lying] Pulse Rate [Sitting (for 1 minute prior to obtaining)] Pulse Rate [Standing (for 1 minute prior to obtaining)] Respiratory Rate 18 Respiratory Effort Short of Breath Blood Pressure 192/58 H Blood Pressure [Lying] Blood Pressure [Sitting (for 1 minute prior to obtaining)] Blood Pressure [Standing (for 1 minute prior to obtaining)] Blood Pressure Mean 102 Blood Pressure Mean [Lying] Blood Pressure Mean [Sitting (for 1 minute prior to obtaining)] Blood Pressure Mean [Standing (for 1 minute prior to obtaining)] Pulse Ox 99 100 Oxygen Delivery Method Room Air Room Air 07/12/22 11:33 Temperature Temperature Source Pulse Rate Pulse Rate [Lying] 63 Pulse Rate [Sitting (for 1 minute prior to obtaining)] 68 Pulse Rate [Standing (for 1 minute prior to obtaining)] 78 Respiratory Rate Respiratory Effort Blood Pressure Blood Pressure [Lying] 148/62 H Blood Pressure [Sitting (for 1 minute prior to obtaining)] 160/67 H Blood Pressure [Standing (for 1 minute prior to obtaining)] 171/66 H Blood Pressure Mean Blood Pressure Mean [Lying] 90 Blood Pressure Mean [Sitting (for 1 minute prior to obtaining)] 98 Blood Pressure Mean [Standing (for 1 minute prior to obtaining)] 101 Pulse Ox Oxygen Delivery Method Positive well nourished, well developed and obese Constitutional Narrative: Patient with slow psychomotor skills. Flat affect. Monotone. General Appearance ED: well developed and NAD; Negative for pallor Nutritional Appearance: obese HEENT Reports moist mucous membranes HEENT Narrative: Head is atraumatic normocephalic. Ears normal. Nares patent. Uvula midline. No deviation with protrusion. No erythema or exudate the posterior pharynx. Eyes PERRL and EOMs intact bilaterally General Eye ED: Negative for pale conjunctiva or scleral icterus Neck no lymphadenopathy, supple and no JVD Resp normal respiratory effort and clear to auscultation bilaterally Cardio regular rate, regular rhythm, S1 normal heart sound, S2 normal heart sound and no murmurs GI normal to inspection, nondistended, normoactive bowel sounds, non-tender, non-distended and no masses; Negative for hepatosplenomegaly Back/Spine no CVA tenderness Back/Spine Narrative: Back appears normal. Thoracic Spine / Upper Back: Negative for thoracic spinal tenderness Lumbar Spine / Lower Back: Negative for lumbar spinal tenderness Extremity Extremity Narrative: There is no asymmetry, discoloration, leg vein distention, palpable cord sounds on the distribution deep system. General Extremety ED: Yes edema General Extremity: edema Neuro oriented x3, CN's II-XII intact bilaterally and no sensory deficits noted Neuro Narrative: He is awake. He is not truly alert. Psych Negative for mental status grossly normal Psych Narrative: As previously described monotone, with slow psychomotor skills. Speech is soft. Answers are brief. Mood & Affect: depressed Skin no rashes or lesions noted and no wounds General Skin Exam: Negative for jaundice or pallor MDM MDM MDM Narrative Medical decision making narrative: Patient is complains of orthostatic symptoms we will obtain orthostatic vital signs. Placed on the monitor. EKG was obtained to rule out ischemia. CBC to assess H&H since he has history of anemia due to chronic blood loss and electrolyte panel was obtained to assess electrolytes and renal function since he has history of stage III chronic renal disease. Suspect patient's symptoms are due to depression. Will discuss case with Dr. Zhu once laboratory results are back and nurse has performed orthostatic vitals. Case was discussed with Dr. Sajan Rogers. Here he recommended patient follow-up with his PCP. Discussed that my professional concern is that patient is depressed. He was not in disagreement. The patient and his were made aware of this. Patient is shaking his head no when I am telling him that he is depressed. Orthostatic vital signs were negative. Lab Data Labs: Laboratory Results - last 24 hr 07/12/22 07/12/22 10:33 10:33 WBC 4.6 RBC 3.66 L Hgb 11.1 L Hct 33.7 L MCV 92.1 MCH 30.3 MCHC 32.9 RDW Std Deviation 46.9 H RDW Coeff of Flavio 13.8 Plt Count 186 MPV 9.6 Immature Gran % (Auto) 0.200 Neut % (Auto) 61.2 Lymph % (Auto) 26.3 [place] % (Auto) 8.1 Eos % (Auto) 3.5 Baso % (Auto) 0.7 Absolute Neuts (auto) 2.8 Absolute Lymphs (auto) 1.20 Nucleated RBC % 0 Sodium 142 Potassium 3.9 Chloride 109 H Carbon Dioxide 26.0 Anion Gap 7 BUN 34 H Creatinine 1.56 H Estim Creat Clear Calc 39.38 Est GFR (MDRD) Af Amer 55 L Est GFR (MDRD) Non-Af 45 L BUN/Creatinine Ratio 21.8 H Glucose 183 H Calcium 9.3 Discharge Plan Triage Chief Complaint: Dizziness ED Provider: Obed Ureña Dx/Rx/DC Orders Clinical Impression: Orthostatic dizziness, HLD (hyperlipidemia), MACHELLE (obstructive sleep apnea), Iron deficiency anemia due to chronic blood loss, Depression, Hx of type 2 diabetes mellitus Instructions: Depression and the Brain's ..., ED Dizziness, Uncertain Cause Prescriptions: No Action (DME) blood pressure monitor Kit See Rx Instructions .ROUTE .MEDSUPPLY Qty: 1 0RF Rx Instructions: check blood pressure daily pantoprazole 40 mg tablet,delayed release (DR/EC) 40 mg PO DAILY 90 Days Qty: 90 3RF (DME) lancets [OneTouch [employer] Lancets] 30 gauge misc See Rx Instructions .ROUTE .MEDSUPPLY Qty: 200 3RF Rx Instructions: check blood sugar tid for type 2 DM simvastatin 20 mg tablet 20 mg PO QHS Qty: 90 3RF pramipexole [Mirapex] 1 mg tablet 2 mg PO QHS Qty: 180 3RF insulin glargine [Semglee Pen U-100 Insulin] 100 unit/mL (3 mL) insulin pen 30 unit subcut QAM sertraline 25 mg tablet 25 mg PO DAILY (DME) compress.stocking,knee,reg,lrg Misc See Rx Instructions .MEDSUPPLY Qty: 2 1RF Rx Instructions: wear daily for venous insufficiency 20-30 mmHg olmesartan 40 mg tablet 40 mg PO DAILY Qty: 90 3RF acetaminophen [Tylenol] 325 mg Tablet 650 mg PO Q4H PRN PRN (Reason: Pain 1-10 Or Fever) Qty: 0 0RF ferrous sulfate 325 mg (65 mg iron) tablet 325 mg PO Q OTHER DAY finasteride 5 mg tablet 5 mg PO DAILY Qty: 90 3RF (DME) blood sugar diagnostic Strip See Rx Instructions .ROUTE .MEDSUPPLY Qty: 100 0RF Rx Instructions: One Touch Elena test strip, use to test blood sugar 3 times daily. Dx E11.42 hydralazine 25 mg tablet 25 mg PO BID Qty: 180 3RF ergocalciferol (vitamin D2) 1,250 mcg (50,000 unit) capsule 50,000 unit PO QMONTH Qty: 12 0RF (DME) pen needle, diabetic [BD Ultra-Fine Mini Pen Needle] 31 gauge x 3/16 needle See Rx Instructions .ROUTE .MEDSUPPLY Qty: 100 3RF Rx Instructions: daily for type 2 dm flecainide 100 mg tablet 100 mg PO Q12H Qty: 180 2RF Hold Instructions: bradycardia 07/09 dulaglutide 4.5 mg/0.5 mL pen injector 4.5 mg SC .COMPLEX 90 Days Qty: 2 2RF Rx Instructions: 4.5 mg subcut every friday progesterone micronized 100 mg capsule 100 mg PO QAM Qty: 90 1RF amlodipine 10 mg tablet 5 mg PO DAILY Qty: 90 3RF furosemide 40 mg tablet 80 mg PO BID Qty: 360 3RF Primary Care Provider: Tosha Shrestha Referrals: Tosha Shrestha MD [Primary Care Provider] - 3-5 Days Disposition Disposition: Home, Self Care
[2022-07-12 11:14] LABS: Absolute Neutrophil Count 2.8 X10^3/uL (2.0-7.7); Basophil# 0.03 X10^3/uL; Basophil% 0.7 % (0-1); Eosinophil# 0.16 X10^3/uL; Eosinophils% 3.5 % (0-5); Hematocrit 33.7 % (40-54); Hemoglobin 11.1 g/dL (13.0-16.5); Lymphocyte % 26.3 % (19-41); Mean Corp Hgb Conc 32.9 g/dL (32-36); Mean Corpuscular Hgb 30.3 pg (27.0-32.0); Mean Corpuscular Volume 92.1 fL (80-94); Mean Platelet Vol. 9.6 fl (6.2-12.0); Monocyte# 0.37 X10^3/uL; Monocyte% 8.1 % (0-10); NRBC Flagged by Analyzer 0 % (0-5); Neutrophil # 2.79 X10^3/uL (2.7-7.7); Neutrophil % 61.2 % (47-70); Platelet Count 186 K/mm3 (150-450); RBC Distribution Width CV 13.8 % (11.6-14.6); RBC Distribution Width SD 46.9 fl (35.1-43.9); Red Blood Count 3.66 M/mm3 (4.6-6.2); White Blood Count 4.6 K/mm3 (4.4-11.0)
[2022-07-12 11:29] LABS: Anion Gap 7 (5-15); BUN 34 mg/dL (7-18); BUN/Creat Ratio 21.8 RATIO (10-20); Calcium,Total 9.3 mg/dL (8.5-10.1); Chloride 109 mmol/L (98-107); Creatinine, Serum 1.56 mg/dL (0.70-1.30); EST Glomerular Filtration Rate 45 mL/min (>60); Est Glom Filt Rate - Afr Amer 55 mL/min (>60); Estimated Creatinine Clearance 39.38 ml/min; Glucose 183 mg/dL (74-106); Potassium 3.9 mmol/L (3.5-5.1); Sodium Level 142 mmol/L (136-145)
[2022-07-12 11:33] VITALS: BP 148/62; BP 160/67; BP 171/66; PULSE 63; PULSE 68; PULSE 78
[2022-07-12 12:27] VITALS: BP 145/56; PULSE 71; RESP 18; O2SAT 98
[2022-07-12 12:40] VITALS: BP 145/78; PULSE 91; RESP 18; O2SAT 99
== END 2022-07-12 12:41 | disposition home or self-care (01) ==
PROVIDERS: Emergency Provider Emergency Medicine; PCP Internal Medicine; Visit Provider Emergency Medicine
DX: R42 Dizziness and giddiness (principal); N18.30 Chronic kidney disease, stage 3 unspecified; E78.5 Hyperlipidemia, unspecified; F32.A Depression, unspecified; D50.0 Iron deficiency anemia secondary to blood loss (chronic); I25.10 Atherosclerotic heart disease of native coronary artery without angina pectoris; E66.9 Obesity, unspecified; G47.33 Obstructive sleep apnea (adult) (pediatric); Z86.718 Personal history of other venous thrombosis and embolism
CPT/HCPCS: 80048; 85025; 93005; 99285; A4216

== ENCOUNTER 2022-09-02 09:29 | Emergency (ER) | payer MEDICARE, BC, SELFPAY ==
[2022-09-02 09:30] VITALS: BP 184/63; PULSE 68; RESP 18; TEMP 36.9; O2SAT 99; BMI 40.4
[2022-09-02 09:53] VITALS: BP 197/69; BP 219/85; BP 229/80; PULSE 74; PULSE 77; PULSE 88
--- NOTE | 2022-09-02 09:53 | EKG12_ITS ---
Test Reason : HEADACHE Blood Pressure : / mmHG Vent. Rate : 068 BPM Atrial Rate : 000 BPM P-R Int : 000 ms QRS Dur : 092 ms QT Int : 462 ms P-R-T Axes : 000 064 082 degrees QTc Int : 491 ms Ectopic atrial rhythm with prolonged IA-interval Prolonged QT Abnormal ECG Confirmed by RIVKA DUNCAN, RAHUL ([id number]), subeditor NITZA ROJAS ([id number]) on 09/03/2022 9:42:20 AM Referred By: GIOVANA Confirmed By:RAHUL TINEO MD
--- NOTE | 2022-09-02 09:53 | CT_ITS ---
STUDY: CT BRAIN WITHOUT CONTRAST REASON FOR EXAM: Male, 82 years old. Headache RADIATION DOSAGE (If Supplied By Facility): CTDIvol = ( 44.99 ) mGy, DLP = ( 846.73 ) mGycm TECHNIQUE: Transaxial CT imaging of the brain was performed without administration of intravenous contrast material. Individualized dose optimization techniques were used for this CT. COMPARISON: Comparison is made with prior study dated 06/19/2022. FINDINGS: Stable soft tissue density in the posterior right occipital region. Normal calvarium. There is mild cerebral atrophy with widening of the extra-axial spaces and ventricular dilatation. There are areas of decreased attenuation within the white matter tracts of the supratentorial brain, consistent with microvascular disease changes. Normal basal ganglia and thalami. Normal brainstem. Normal cerebellum. There is no intracranial hemorrhage. There are no findings of an acute ischemic infarction. Atherosclerotic plaque formation of the vertebral arteries and cavernous portions of the internal carotid arteries bilaterally. Normal visualized paranasal sinuses. CT/Brain/Head without Contrast IMPRESSION: Chronic involutional changes of the brain. Stable right posterior soft tissue density overlying the right occipital bone. Electronically Signed: Leo Fay MD at 11:19 EST ,
--- NOTE | 2022-09-02 09:57 | EDS_ITS ---
HPI History of Present Illness Chief Complaint: Headache Narrative Narrative: 82-year-old male presenting with headache. He states that he has had on and off headaches for about a month. He states today was the worst. He states it came on acutely and although it is improving its not gone. He denies any visual complaints, slurred speech, facial droop, numbness or tingling, inability to use arm or legs with exception of the feeling of generalized weakness. He called EMS because he felt like his headache was too bad he could not get out of bed. Patient also presents with lightheadedness which is not new either. He states he has been having episodes of this since 2018. He describes it as lightheaded and not vertiginous. The headaches do not necessarily coincide with the lightheadedness. He is not had a fever or neck pain. He does state that he recently developed a cough. He has a history of atrial fibrillation in the past and is not on anticoagulation because he has a history of fall with head injury with intracranial bleeding. He denies any recent falls or head injuries. He is on metoprolol and flecainide for rate control. He sees Dr. Rogers. [facility] Medical History (HFpEF) heart failure with preserved ejection fraction (12/12/20) Acute respiratory failure with hypoxia Anemia Anemia of chronic renal failure, stage 3 (moderate) Anxiety and depression Atherosclerotic heart disease of [place] coronary artery without angina pectoris Atrial flutter Atypical chest pain Back pain BMI 34.0-34.9,adult BPH (benign prostatic hyperplasia) BPPV (benign paroxysmal positional vertigo) Bradycardia Cardiac dysrhythmia Cardiology follow-up encounter CHF (congestive heart failure) De Quervain's tenosynovitis Debility Depression Dermatitis Diabetes mellitus Diabetic kidney disease Dizziness DM type 2 with diabetic peripheral neuropathy DVT (deep venous thrombosis) Dyslipidemia Dysphagia Essential (primary) hypertension Fall Flu vaccine need Fracture of great toe Gastric reflux Health care maintenance History of echocardiogram History of edema History of GI bleed History of peptic ulcer History of renal calculi History of ulceration HLD (hyperlipidemia) Injury of head and neck Iron deficiency anemia Iron deficiency anemia due to chronic blood loss Kidney hematoma (12/08/20) Left knee pain Left leg DVT Loss of equilibrium Low iron Malaise Near syncope Orthostatic hypotension MACHELLE (obstructive sleep apnea) Pain of left lower extremity Paroxysmal atrial fibrillation Paroxysmal atrial flutter Pneumonia Polypharmacy Prostate disease Psoriasis Recurrent syncope (06/19/22) Renal calculi RLS (restless legs syndrome) Sex disorder Suicidal ideation SVT (supraventricular tachycardia) TIA (transient ischemic attack) Urolithiasis Venous insufficiency of both lower extremities Vertigo Walker as ambulation aid Wears glasses Home Medications finasteride 5 mg tablet 5 mg PO DAILY PROSTATE #90 tabs 11/03/18 [Rx Last Taken 08/05/21] acetaminophen 325 mg tablet (Tylenol) 650 mg PO Q4H PRN PRN Pain 1-10 Or Fever #0 tabs 12/15/20 [Rx Last Taken Unknown] blood pressure monitor #1 ea 03/13/21 [Rx Last Taken Unknown] lancets 30 gauge ([employer] Lancets) #200 ea 10/26/21 [Rx Last Taken Unknown] pramipexole 1 mg tablet (Mirapex) 2 mg PO QHS RLS #180 tabs 12/10/21 [Rx Last T aken Unknown] simvastatin 20 mg tablet 20 mg PO QHS #90 tabs 12/10/21 [Rx Last Taken Unknown] ergocalciferol (vitamin D2) 1,250 mcg (50,000 unit) capsule 50,000 unit PO QMONTH #12 caps 01/01/22 [Rx Last Taken Unknown] pen needle, diabetic 31 gauge x 3/16 (BD Ultra-Fine Mini Pen Needle) #100 ea 01/23/22 [Rx Last Taken Unknown] flecainide 100 mg tablet 100 mg PO Q12H HEART RATE #180 tabs 04/01/22 [Rx Last Taken 06/26/22] sertraline 25 mg tablet 25 mg PO DAILY 04/05/22 [History Last Taken Unknown] insulin glargine 100 unit/mL (3 mL) subcutaneous pen (Semglee Pen U-100 Insulin) 30 unit subcut QAM 05/15/22 [History Last Taken Unknown] dulaglutide 4.5 mg/0.5 mL subcutaneous pen injector 4.5 mg (0.5 mL) subcut .COMPLEX 3 months #2 mL 05/31/22 [Rx Last Taken Unknown] progesterone micronized 100 mg capsule 100 mg PO QAM #90 caps 06/24/22 [Rx Last Taken Unknown] compress.stocking,knee,reg,lrg #2 ea 07/05/22 [Rx Last Taken Unknown] amlodipine 10 mg tablet 5 mg PO DAILY #90 tabs 07/09/22 [Rx Last Taken Unknown] metoprolol succinate 25 mg tablet,extended release 24 hr 12.5 mg PO DAILY 07/16/22 [History Last Taken Unknown] ferrous sulfate 325 mg (65 mg iron) tablet 325 mg PO Q OTHER DAY supplement 07/31/22 [History Last Taken Unknown] furosemide 40 mg tablet 40 mg PO DAILY 07/31/22 [History Last Taken Unknown] olmesartan 40 mg tablet 20 mg PO BID #90 tabs 08/05/22 [Rx Last Taken Unknown] blood sugar diagnostic #100 ea 08/29/22 [Rx Last Taken Unknown] famotidine 40 mg tablet 40 mg PO DAILY #90 tabs 09/02/22 [Rx Last Taken Unknown] hydralazine 50 mg tablet 50 mg PO BID This is a dose increase #60 tabs 09/02/22 [Rx Last Taken Unknown] Allergy/AdvReac Type Severity Reaction Status Date / Time hydrocodone bitartrate AdvReac Severe Other Verified 09/02/22 09:35 [From Vicodin] hydroxyzine AdvReac Severe Other Verified 09/02/22 09:35 Family History Father Diabetes Hypertension Cancer Lung cancer Mother Hypertension CVA (cerebral vascular accident) Sister Diabetes Son Diabetes Surgical History History of cardioversion (2015) History of cataract surgery History of left heart catheterization (02/16/13) History of lithotripsy (11/2020) History of loop recorder (06/26/22) History of radiofrequency ablation procedure for cardiac arrhythmia (02/05/06) history of right knee cap fracture History of right knee surgery Status post laser lithotripsy of ureteral calculus Status post left foot surgery STENT PLACEMENT FOR KIDNEY STONE Social History household members: spouse housing: house Smoking Status: Never smoker how long ago did patient quit smokin second hand exposure: No alcohol intake: never substance use type: does not use caffeine: No what type of physical activity do you participate in: none seatbelt use: always do you feel safe at home: Yes ROS ROS ED ROS Narrative Lightheadedness Constitutional Constitutional ED: Denies chills or fever(s) Eyes Eyes: Denies change in vision or diplopia ENT ENT ED: Denies rhinorrhea or sore throat Cardiovascular Cardiovascular: Denies chest pain, palpitations or racing heartbeat Respiratory/Chest Respiratory/Chest: Reports cough; Denies dyspnea Gastrointestinal Gastrointestinal: Denies abdominal pain, nausea or vomiting Genitourinary Genitourinary ED: Denies dysuria or hematuria Musculoskeletal Musculoskeletal: Denies arthralgias or back pain Integumentary Denies abscess or Abrasions Neurologic Neurologic: Reports headache(s) Psychiatric Psychiatric: Denies anxiety or depression EXAM Physical Exam Const Vital Signs: 09/02/22 09:30 09/02/22 09:53 09/02/22 11:29 Temperature 98.5 F Temperature Source Oral Pulse Rate 68 75 Pulse Rate [Lying] 74 Pulse Rate [Sitting (for 1 minute prior to obtaining)] 88 Pulse Rate [Standing (for 1 minute prior to obtaining)] 77 Respiratory Rate 18 13 Blood Pressure 184/63 H 175/68 H Blood Pressure [Lying] 197/69 H Blood Pressure [Sitting (for 1 minute prior to obtaining)] 229/80 H Blood Pressure [Standing (for 1 minute prior to obtaining)] 219/85 H Blood Pressure Mean 103 103 Blood Pressure Mean [Lying] 111 Blood Pressure Mean [Sitting (for 1 minute prior to obtaining)] 129 Blood Pressure Mean [Standing (for 1 minute prior to obtaining)] 129 Pulse Ox 99 94 Oxygen Delivery Method Room Air Room Air 09/02/22 13:00 09/02/22 15:00 Temperature Temperature Source Pulse Rate 69 72 Pulse Rate [Lying] Pulse Rate [Sitting (for 1 minute prior to obtaining)] Pulse Rate [Standing (for 1 minute prior to obtaining)] Respiratory Rate 18 16 Blood Pressure 192/59 H 182/72 H Blood Pressure [Lying] Blood Pressure [Sitting (for 1 minute prior to obtaining)] Blood Pressure [Standing (for 1 minute prior to obtaining)] Blood Pressure Mean 103 108 Blood Pressure Mean [Lying] Blood Pressure Mean [Sitting (for 1 minute prior to obtaining)] Blood Pressure Mean [Standing (for 1 minute prior to obtaining)] Pulse Ox 96 97 Oxygen Delivery Method Room Air Room Air Positive obese General Appearance ED: NAD; Negative for pallor Nutritional Appearance: obese HEENT Reports normocephalic, TM's clear and moist mucous membranes atraumatic Tympanic Membrane ED: Yes TM's clear Eyes PERRL and EOMs intact bilaterally General Eye ED: Negative for pale conjunctiva or scleral icterus Neck no lymphadenopathy and no meningeal signs Resp normal respiratory effort and clear to auscultation bilaterally Auscultation: Negative for rales, rhonchi or wheezes Cardio regular rate and regular rhythm GI non-tender Auscultation: normoactive bowel sounds Neuro oriented x3 and CN's II-XII intact bilaterally Sensorium / Orientation: awake and alert Speech: speech normal Motor Exam: strength 5/5 throughout Psych mental status grossly normal Skin General Skin Exam: Negative for jaundice or pallor MDM MDM MDM Narrative Medical decision making narrative: Patient presented with headache and feeling generally weak. Weakness and is documented multiple times in his history as well as lightheadedness without vertigo. Negative [place] on examination. Patient medicated with Reglan and Benadryl for his headache. I obtained a CT brain which shows no acute findings. Chest x-ray on my interpretation shows cardiomegaly and mild pulmonary vascular congestion. Radiology interpreted this and agrees. Patient is not hypoxic, tachypneic, tachycardic. He was ambulated and has a stable gait after treatment. Given patient's complex medical history I did get a CBC to assess his white blood cell count which is normal at 5.5. Also assess his hemoglobin is also normal 11.6. Platelets normal 163. Liver function, renal function, electrolytes were tested today as well. Creatinine seems to be improved at 1.29. Electrolytes are normal. LFTs within normal limits. Glucose slightly elevated 122 without anion gap. Urinalysis was negative for infection. The patient's loop recorder was assessed and has not had any alarms. Patient's blood pressure has been very elevated here today. I discussed this with Dr. Rogers who stated that he will have his nurse address his medications at home. At this point I feel he is stable for discharge Impression: 1. Headache 2. Generalized weakness 3. History of A. fib/flutter 4. Hypertension Lab Data Attestation: I reviewed the patient's lab results. Labs: Laboratory Results - last 24 hr 09/02/22 09/02/22 09/02/22 09:40 09:40 11:45 WBC 5.5 RBC 3.84 L Hgb 11.6 L Hct 36.5 L MCV 95.1 H MCH 30.2 MCHC 31.8 L RDW Std Deviation 47.6 H RDW Coeff of Flavio 13.6 Plt Count 163 MPV 9.9 Immature Gran % (Auto) 0.500 Neut % (Auto) 60.5 Lymph % (Auto) 27.7 [place] % (Auto) 7.5 Eos % (Auto) 3.3 Baso % (Auto) 0.5 Absolute Neuts (auto) 3.3 Absolute Lymphs (auto) 1.52 Nucleated RBC % 0 Sodium 142 Potassium 4.1 Chloride 110 H Carbon Dioxide 26.0 Anion Gap 6 BUN 29 H Creatinine 1.29 Estim Creat Clear Calc 47.62 Est GFR (MDRD) Af Amer 68 Est GFR (MDRD) Non-Af 57 L BUN/Creatinine Ratio 22.5 H Glucose 122 H Calcium 9.0 Total Bilirubin 0.50 AST 15 ALT 23 Alkaline Phosphatase 77 Troponin I High Sens 18 Total Protein 7.1 Albumin 3.5 Globulin 3.6 Albumin/Globulin Ratio 1.0 Urine Color Yellow Urine Clarity Clear Urine pH 6.0 Ur Specific [place] 1.015 Urine Protein 100 H Urine Glucose (UA) Normal Urine Ketones Negative Urine Occult Blood 10 H Urine Nitrite Negative Urine Bilirubin Negative Urine Urobilinogen Normal Ur Leukocyte Esterase Negative Urine RBC 0-5 SEEN Urine WBC 0 SEEN Ur Squamous Epith Cells 0 SEEN Urine Bacteria 0 SEEN Urine Mucus 0 SEEN Radiography Diagnostic Testing: Clinical Impression(s) from Imaging Studies Brain CT 09/02/22 09:53 IMPRESSION: Chronic involutional changes of the brain. Stable right posterior soft tissue density overlying the right occipital bone. Electronically Signed: Leo Fay MD at 11:19 EST , Chest X-Ray 09/02/22 10:30 IMPRESSION: Mild cardiomegaly and mild degree of CHF. Electronically Signed: Leo aFy MD at 10:46 EST , Discharge Plan Triage Chief Complaint: Headache ED Provider: Nghia Smith Dx/Rx/DC Orders Prescriptions: No Action (DME) blood pressure monitor Kit See Rx Instructions .ROUTE .MEDSUPPLY Qty: 1 0RF Rx Instructions: check blood pressure daily (DME) lancets [OneTouch Delica Lancets] 30 gauge misc See Rx Instructions .ROUTE .MEDSUPPLY Qty: 200 3RF Rx Instructions: check blood sugar tid for type 2 DM simvastatin 20 mg tablet 20 mg PO QHS Qty: 90 3RF pramipexole [Mirapex] 1 mg tablet 2 mg PO QHS Qty: 180 3RF insulin glargine [Semglee Pen U-100 Insulin] 100 unit/mL (3 mL) insulin pen 30 unit subcut QAM furosemide 40 mg tablet 40 mg PO DAILY sertraline 25 mg tablet 25 mg PO DAILY (DME) compress.stocking,knee,reg,lrg Misc See Rx Instructions .MEDSUPPLY Qty: 2 1RF Rx Instructions: wear daily for venous insufficiency 20-30 mmHg acetaminophen [Tylenol] 325 mg Tablet 650 mg PO Q4H PRN PRN (Reason: Pain 1-10 Or Fever) Qty: 0 0RF ferrous sulfate 325 mg (65 mg iron) tablet 325 mg PO Q OTHER DAY Rx Instructions: only finasteride 5 mg tablet 5 mg PO DAILY Qty: 90 3RF ergocalciferol (vitamin D2) 1,250 mcg (50,000 unit) capsule 50,000 unit PO QMONTH Qty: 12 0RF (DME) pen needle, diabetic [BD Ultra-Fine Mini Pen Needle] 31 gauge x 3/16 needle See Rx Instructions .ROUTE .MEDSUPPLY Qty: 100 3RF Rx Instructions: daily for type 2 dm flecainide 100 mg tablet 100 mg PO Q12H Qty: 180 2RF Hold Instructions: bradycardia 07/09 dulaglutide 4.5 mg/0.5 mL pen injector 4.5 mg SC .COMPLEX 90 Days Qty: 2 2RF Rx Instructions: 4.5 mg subcut every friday progesterone micronized 100 mg capsule 100 mg PO QAM Qty: 90 1RF amlodipine 10 mg tablet 5 mg PO DAILY Qty: 90 3RF metoprolol succinate 25 mg tablet extended release 24 hr 12.5 mg PO DAILY olmesartan 40 mg tablet 20 mg PO BID Qty: 90 3RF (DME) blood sugar diagnostic Strip See Rx Instructions .ROUTE .MEDSUPPLY Qty: 100 3RF Rx Instructions: One Touch Elena test strip, use to test blood sugar 3 times daily. Dx E11.42 famotidine 40 mg tablet 40 mg PO DAILY Qty: 90 3RF hydralazine 50 mg tablet 50 mg PO BID Qty: 60 11RF Primary Care Provider: Tosha Shrestha Referrals: Tosha Shrestha MD [Primary Care Provider] -
[2022-09-02 10:07] LABS: Absolute Lymphocyte Count 1.52 X10^3/uL (0.83-4.51); Absolute Neutrophil Count 3.3 X10^3/uL (2.0-7.7); Basophil# 0.03 X10^3/uL; Basophil% 0.5 % (0-1); Eosinophil# 0.18 X10^3/uL; Eosinophils% 3.3 % (0-5); Hematocrit 36.5 % (40-54); Hemoglobin 11.6 g/dL (13.0-16.5); Lymphocyte # 1.52 X10^3/ul (0.83-4.51); Lymphocyte % 27.7 % (19-41); Mean Corp Hgb Conc 31.8 g/dL (32-36); Mean Corpuscular Hgb 30.2 pg (27.0-32.0); Mean Corpuscular Volume 95.1 fL (80-94); Mean Platelet Vol. 9.9 fl (6.2-12.0); Monocyte# 0.41 X10^3/uL; Monocyte% 7.5 % (0-10); NRBC Flagged by Analyzer 0 % (0-5); Neutrophil # 3.32 X10^3/uL (2.7-7.7); Neutrophil % 60.5 % (47-70); Platelet Count 163 K/mm3 (150-450); RBC Distribution Width CV 13.6 % (11.6-14.6); RBC Distribution Width SD 47.6 fl (35.1-43.9); Red Blood Count 3.84 M/mm3 (4.6-6.2); White Blood Count 5.5 K/mm3 (4.4-11.0)
[2022-09-02] MEDS: DiphenhydrAMINE 50 MG/ML Syringe 25 MG IV (10:15)
[2022-09-02] MEDS: Metoclopramide 10 MG/2 ML Vial IV (10:15)
[2022-09-02 10:24] LABS: AST(SGOT) 15 U/L (15-37); Alanine Aminotransfer ALT/SGPT 23 U/L (16-61); Albumin, Serum 3.5 g/dL (3.2-5.0); Alkaline Phosphatase 77 U/L (45-117); Anion Gap 6 (5-15); BUN 29 mg/dL (7-18); BUN/Creat Ratio 22.5 RATIO (10-20); Chloride 110 mmol/L (98-107); Creatinine, Serum 1.29 mg/dL (0.70-1.30); EST Glomerular Filtration Rate 57 mL/min (>60); Est Glom Filt Rate - Afr Amer 68 mL/min (>60); Estimated Creatinine Clearance 47.62 ml/min; Globulin 3.6 g/dL (2.2-4.2); Glucose 122 mg/dL (74-106); Potassium 4.1 mmol/L (3.5-5.1); Protein, Total 7.1 g/dL (6.4-8.2); Sodium Level 142 mmol/L (136-145); Troponin-I HS 18 pg/mL (3.0-78.0)
--- NOTE | 2022-09-02 10:30 | RAD_ITS ---
STUDY: X-RAY CHEST REASON FOR EXAM: Male, 82 years old. Cough TECHNIQUE: Single AP portable view of the chest. COMPARISON: Comparison is made with prior study 06/19/2022. FINDINGS: EKG electrodes are seen. Mild degree of increased interstitial markings suggests a mild degree of CHF although this has improved as compared to prior study. There is no demonstrated pleural abnormality. There is mild cardiac enlargement. A loop recording device is seen overlying the left ventricle. Normal mediastinum and lakhwinder. Normal visualized pulmonary arteries. There is atherosclerotic calcification of the aortic arch with tortuosity. There are diffuse degenerative changes of the visualized thoracic spine. Normal visualized ribs, clavicles, and shoulders. There is no demonstrated abnormality of the visualized soft tissue structures of the upper abdomen. RAD/Chest 1 View (Portable) IMPRESSION: Mild cardiomegaly and mild degree of CHF. Electronically Signed: Leo Fay MD at 10:46 EST ,
[2022-09-02 11:29] VITALS: BP 175/68; PULSE 75; RESP 13; O2SAT 94
[2022-09-02 11:49] LABS: Bacteria 0 SEEN /hpf (None Seen); Mucous, Urine 0 SEEN /hpf (<or=2+); Squamous Epithelial Cells - UA 0 SEEN /hpf (0-5); White Blood Cells 0 SEEN /hpf (0-5)
[2022-09-02 11:51] LABS: Color, Urine Yellow (Yellow); Glucose, Dipstick Normal (Normal); Ketone-Dipstick Negative (Negative); Leukocyte Esterase-Dipstick Negative /ul (Negative); Nitrite-Dipstick Negative (Negative); Occult Blood-Urine 10 /ul (Negative); Protein-Dipstick 100 mg/dl (Negative); Specific Gravity, Urine 1.015 (1.002-1.030); Urine Bilirubin Dipstick Negative (Negative); Urine Clarity Clear (Clear); Urine Urobilinogen Normal (Normal)
[2022-09-02 11:57] LABS: Red Blood Cells-Urine 0-5 SEEN /hpf (0-5)
[2022-09-02 13:00] VITALS: BP 192/59; PULSE 69; RESP 18; O2SAT 96
[2022-09-02 15:00] VITALS: BP 182/72; PULSE 72; RESP 16; O2SAT 97
[2022-09-02 16:11] VITALS: BP 160/75; PULSE 67; RESP 24; O2SAT 96
== END 2022-09-02 16:33 | disposition home or self-care (01) ==
PROVIDERS: Emergency Provider Student in an Organized Health Care Education/Training Program; PCP Internal Medicine; Visit Provider Student in an Organized Health Care Education/Training Program
DX: R51.9 Headache, unspecified (principal); I13.0 Hypertensive heart and chronic kidney disease with heart failure and stage 1 through stage 4 chronic kidney disease, or unspecified chronic kidney disease; I50.9 Heart failure, unspecified; I48.0 Paroxysmal atrial fibrillation; N18.30 Chronic kidney disease, stage 3 unspecified; R53.1 Weakness; E78.5 Hyperlipidemia, unspecified; I25.10 Atherosclerotic heart disease of native coronary artery without angina pectoris; G47.33 Obstructive sleep apnea (adult) (pediatric); E66.9 Obesity, unspecified; Z86.718 Personal history of other venous thrombosis and embolism; Z86.73 Personal history of transient ischemic attack (TIA), and cerebral infarction without residual deficits; Z79.899 Other long term (current) drug therapy
CPT/HCPCS: 70450; 71045; 80053; 81001; 84484; 85025; 93005; 96374; 96375; 99285; A4216

== ENCOUNTER → 2022-09-06 | Outpatient (CLI) | payer MEDICARE, BC, SELFPAY | END | disposition home or self-care (01) | LOC: SL 13:19 | PROVIDERS: PCP Internal Medicine; Visit Provider Nurse Practitioner Acute Care | DX: Z46.89 Encounter for fitting and adjustment of other specified devices (principal) ==

== ENCOUNTER 2022-09-13 02:12 | Emergency (ER) | payer MEDICARE, BC, SELFPAY ==
[2022-09-13 02:13] VITALS: BP 182/64; PULSE 68; RESP 16; TEMP 35.9; O2SAT 98; BMI 39.9
--- NOTE | 2022-09-13 02:35 | RAD_ITS ---
STUDY: X-RAY - LEFT FOOT CLINICAL: Male, 82 years old patient with questionable osteomyelitis. TECHNIQUE: 3 view(s) of the foot. COMPARISON: Prior comparable comparison studies are not available for review at this time. FINDINGS: Patient has had surgical arthrodesis of the talonavicular articulation, talonavicular articulation and possibly at the calcaneal cuboid articulation where there are multiple screws and a plate. The bones are generally normal alignment. There are degenerative changes at several intertarsal articulations. There is demineralization of the metatarsi. There is degenerative arthrosis of the metatarsophalangeal joint of the hallux . Normal tibial and fibular sesamoid bones. There is degenerative arthrosis of the interphalangeal joint of the great toe. There appears to be osteolysis of the distal phalanx of the hallux possibly secondary to osteomyelitis. There is deformity of the proximal phalanx of the hallux and may be the result of previous fracture. Normal second through fifth metatarsophalangeal joints. Normal interphalangeal joints and phalanges of the lesser toes. There is moderate soft tissue swelling. RAD/Foot min 3 Views IMPRESSION: 1. Apparent osteal lysis of distal phalanx of the hallux suggesting possible osteomyelitis. 2. Generalized osteoporosis. 3. Postoperative changes of the hindfoot. Electronically Signed: Shi Mary MD at 3:08 EST ,
[2022-09-13] MEDS: Lidocaine 2% (20 ml mdv) 20 ML Vial INFILT (02:37)
--- NOTE | 2022-09-13 04:00 | EX.ED.DYSGE1 ---
HPI History of Present Illness Chief Complaint: Lower Extremity Injury Narrative Narrative: Patient is an 82-year-old male with past medical history of diabetes as well as paroxysmal atrial fibrillation hypertension hyperlipidemia and chronic kidney disease. He reports he is on Lasix and therefore gets up multiple times at night to use the bathroom. He states he awoke this morning to get up and use the restroom when he looked down and noticed that his left toe was swollen. He states he does not remember striking the toe. He states he is concerned that this could be infection so he called his acquisition professional who advised him to come the ER for evaluation. The patient states that otherwise he has been at his baseline and denies any fevers or chills or weakness [facility] Medical History (HFpEF) heart failure with preserved ejection fraction (12/12/20) Acute respiratory failure with hypoxia Anemia Anemia of chronic renal failure, stage 3 (moderate) Anxiety and depression Atherosclerotic heart disease of [place] coronary artery without angina pectoris Atrial flutter Atypical chest pain Back pain BMI 34.0-34.9,adult BPH (benign prostatic hyperplasia) BPPV (benign paroxysmal positional vertigo) Bradycardia Cardiac dysrhythmia Cardiology follow-up encounter CHF (congestive heart failure) De Quervain's tenosynovitis Debility Depression Dermatitis Diabetes mellitus Diabetic kidney disease Dizziness DM type 2 with diabetic peripheral neuropathy DVT (deep venous thrombosis) Dyslipidemia Dysphagia Essential (primary) hypertension Fall Flu vaccine need Fracture of great toe Gastric reflux Health care maintenance History of echocardiogram History of edema History of GI bleed History of peptic ulcer History of renal calculi History of ulceration HLD (hyperlipidemia) Injury of head and neck Iron deficiency anemia Iron deficiency anemia due to chronic blood loss Kidney hematoma (12/08/20) Left knee pain Left leg DVT Loss of equilibrium Low iron Malaise Near syncope Orthostatic hypotension MACHELLE (obstructive sleep apnea) Pain of left lower extremity Paroxysmal atrial fibrillation Paroxysmal atrial flutter Pneumonia Polypharmacy Prostate disease Psoriasis Recurrent syncope (06/19/22) Renal calculi RLS (restless legs syndrome) Sex disorder Suicidal ideation SVT (supraventricular tachycardia) TIA (transient ischemic attack) Urolithiasis Venous insufficiency of both lower extremities Vertigo Walker as ambulation aid Wears glasses Home Medications finasteride 5 mg tablet 5 mg PO DAILY PROSTATE #90 tabs 11/03/18 [Rx Last Taken 12/19/21] acetaminophen 325 mg tablet (Tylenol) 650 mg PO Q4H PRN PRN Pain 1-10 Or Fever #0 tabs 12/15/20 [Rx Last Taken Unknown] blood pressure monitor #1 ea 03/13/21 [Rx Last Taken Unknown] lancets 30 gauge (OneTouch Delica Lancets) #200 ea 10/26/21 [Rx Last Taken Unknown] pramipexole 1 mg tablet (Mirapex) 2 mg PO QHS RLS #180 tabs 12/10/21 [Rx Last Taken Unknown] simvastatin 20 mg tablet 20 mg PO QHS #90 tabs 12/10/21 [Rx Last Taken Unknown] ergocalciferol (vitamin D2) 1,250 mcg (50,000 unit) capsule 50,000 unit PO QMONTH #12 caps 01/01/22 [Rx Last Taken Unknown] pen needle, diabetic 31 gauge x 3/16 (BD Ultra-Fine Mini Pen Needle) #100 ea 01/23/22 [Rx Last Taken Unknown] flecainide 100 mg tablet 100 mg PO Q12H HEART RATE #180 tabs 04/01/22 [Rx Last Taken 06/26/22] sertraline 25 mg tablet 25 mg PO DAILY 04/05/22 [History Last Taken Unknown] progesterone micronized 100 mg capsule 100 mg PO QAM #90 caps 06/24/22 [Rx Last Taken Unknown] compress.stocking,knee,reg,lrg #2 ea 07/05/22 [Rx Last Taken Unknown] amlodipine 10 mg tablet 5 mg PO DAILY #90 tabs 07/09/22 [Rx Last Taken Unknown] metoprolol succinate 25 mg tablet,extended release 24 hr 12.5 mg PO DAILY 07/16/22 [History Last Taken Unknown] ferrous sulfate 325 mg (65 mg iron) tablet 325 mg PO Q OTHER DAY supplement 07/31/22 [History Last Taken Unknown] furosemide 40 mg tablet 40 mg PO DAILY 07/31/22 [History Last Taken Unknown] olmesartan 40 mg tablet 20 mg PO BID #90 tabs 08/05/22 [Rx Last Taken Unknown] famotidine 40 mg tablet 40 mg PO DAILY #90 tabs 09/02/22 [Rx Last Taken Unknown] hydralazine 50 mg tablet 50 mg PO BID This is a dose increase #60 tabs 09/02/22 [Rx Last Taken Unknown] blood sugar diagnostic #100 ea 09/05/22 [Rx Last Taken Unknown] insulin glargine 100 unit/mL (3 mL) subcutaneous pen 30 unit (0.3 mL) subcut QAM #15 mL 09/05/22 [Rx Last Taken Unknown] tirzepatide 5 mg/0.5 mL subcutaneous pen injector (Mounjaro) 5 mg (0.5 mL) subcut QWEEK #2 mL 09/05/22 [Rx Last Taken Unknown] dulaglutide 4.5 mg/0.5 mL subcutaneous pen injector 4.5 mg (0.5 mL) subcut .COMPLEX 3 months #2 mL 09/06/22 [Rx Last Taken Unknown] amoxicillin 875 mg-potassium clavulanate 125 mg tablet 1 tab PO BID 10 days #20 tabs 09/13/22 [Rx Last Taken Unknown] Allergy/AdvReac Type Severity Reaction Status Date / Time hydrocodone bitartrate AdvReac Severe Other Verified 09/13/22 02:15 [From Vicodin] hydroxyzine AdvReac Severe Other Verified 09/13/22 02:15 Family History Father Diabetes Hypertension Cancer Lung cancer Mother Hypertension CVA (cerebral vascular accident) Sister Diabetes Son Diabetes Surgical History History of cardioversion (2015) History of cataract surgery History of left heart catheterization (02/16/13) History of lithotripsy (11/2020) History of loop recorder (06/26/22) History of radiofrequency ablation procedure for cardiac arrhythmia (02/05/06) history of right knee cap fracture History of right knee surgery Status post laser lithotripsy of ureteral calculus Status post left foot surgery STENT PLACEMENT FOR KIDNEY STONE Social History household members: spouse housing: house Smoking Status: Never smoker how long ago did patient quit smokin second hand exposure: No alcohol intake: never substance use type: does not use caffeine: No what type of physical activity do you participate in: none seatbelt use: always do you feel safe at home: Yes ROS ROS ED Constitutional Constitutional ED: Denies chills or fever(s) ENT ENT ED: Denies sore throat Cardiovascular Cardiovascular: Denies chest pain Respiratory/Chest Respiratory/Chest: Denies cough or dyspnea Gastrointestinal Gastrointestinal: Denies abdominal pain, diarrhea, nausea or vomiting Genitourinary Genitourinary ED: Denies dysuria Musculoskeletal Musculoskeletal: Denies myalgias Integumentary Reports abscess Neurologic Neurologic: Denies headache(s) or weakness Hematologic/Lymphatic Hematologic/Lymphatic: Denies easy bleeding or easy bruising EXAM Physical Exam Const Vital Signs: 09/13/22 02:13 09/13/22 04:01 Temperature 96.7 F L Temperature Source Temporal Pulse Rate 68 70 Respiratory Rate 16 15 Blood Pressure 182/64 H 146/102 H Blood Pressure Mean 103 Pulse Ox 98 94 Oxygen Delivery Method Room Air Positive well nourished, well developed and obese General Appearance ED: well developed Nutritional Appearance: obese Eyes PERRL and EOMs intact bilaterally Neck supple Resp normal respiratory effort and clear to auscultation bilaterally Cardio regular rate and regular rhythm Extremity Extremity Narrative: Left lower extremity is neurovascularly intact. Along the tuft of the left second distal phalanx of the foot/toe there is a large callus formation and hammertoe deformity. Along the medial and lateral edges of this callus/toe are ecchymotic fluctuant areas consistent or concerning for possible infection versus hematoma. There is no crepitance palpated. No lymphangitic streaking noted. No asymmetric warmth Neuro oriented x3 and CN's II-XII intact bilaterally Sensorium / Orientation: alert Psych mental status grossly normal Skin Skin Narrative: Soft tissue changes to the left second toe as documented above MDM MDM MDM Narrative Medical decision making narrative: Patient presented to the ER slightly hypertensive but otherwise with stable vitals and as he has a past medical history of this I did not find it concerning. The patient's exam shows he has a hammertoe of the left foot and I feel like the soft tissue changes with more ecchymotic/deep red or purple discoloration is secondary to blood formation than infection. However because of the risk for possible infectious process such as cellulitis abscess or osteomyelitis I did elect to perform an x-ray. I do not feel the need for blood work as vitals are stable and there are no signs of systemic infection. The x-ray questioned possible osteomyelitis of the great toe but this does not correlate with where the patient has the soft tissue changes on physical exam. Therefore I do not have concern that he is developing a osteomyelitis as the area of question is over the distal aspect of the left second toe not the great toe. Patient had the area incised and drained as documented below. Following this there was pus produced so this is infection not hematoma and therefore he will be placed on antibiotics. However as he does not have hypotension tachycardia or fever and there is no signs of systemic infection such as lymphangitic streaking I do not feel need for blood work and patient can follow-up with his acquisition professional for repeat evaluation while taking Augmentin to cover for infectious process Patient had left second toe cleaned with chlorhexidine. It was anesthetized in digital block fashion using 8 mL of 2% lidocaine without epinephrine. A 1 cm incision was made on the medial and lateral aspect of the distal aspect of the second toe and a moderate amount of purulent material was expressed. The areas were copiously irrigated with normal saline. Patient tolerated the procedure well without complication. Radiography Diagnostic Testing: Clinical Impression(s) from Imaging Studies Foot X-Ray 09/13/22 02:35 IMPRESSION: 1. Apparent osteal lysis of distal phalanx of the hallux suggesting possible osteomyelitis. 2. Generalized osteoporosis. 3. Postoperative changes of the hindfoot. Electronically Signed: Shi Mary MD at 3:08 EST Reading Location ID and State: [address] [place] [address] , Service support , Left foot x-ray as interpreted by the emergency medicine physician reveals chronic changes without acute fracture dislocation or signs of bony destruction/osteomyelitis Discharge Plan Triage Chief Complaint: Lower Extremity Injury ED Provider: Raman Beasley Dx/Rx/DC Orders Clinical Impression: Abscess or cellulitis of foot, DM type 2 with diabetic peripheral neuropathy, Essential (primary) hypertension, CKD stage 3 due to type 2 diabetes mellitus Instructions: Cellulitis, Abscess Drainage Prescriptions: New amoxicillin-pot clavulanate 875-125 mg tablet 1 tab PO BID 10 Days Qty: 20 0RF No Action (DME) blood pressure monitor Kit See Rx Instructions .ROUTE .MEDSUPPLY Qty: 1 0RF Rx Instructions: check blood pressure daily (DME) lancets [OneTouch Delica Lancets] 30 gauge misc See Rx Instructions .ROUTE .MEDSUPPLY Qty: 200 3RF Rx Instructions: check blood sugar tid for type 2 DM simvastatin 20 mg tablet 20 mg PO QHS Qty: 90 3RF pramipexole [Mirapex] 1 mg tablet 2 mg PO QHS Qty: 180 3RF furosemide 40 mg tablet 40 mg PO DAILY sertraline 25 mg tablet 25 mg PO DAILY (DME) compress.stocking,knee,reg,lrg Misc See Rx Instructions .MEDSUPPLY Qty: 2 1RF Rx Instructions: wear daily for venous insufficiency 20-30 mmHg acetaminophen [Tylenol] 325 mg Tablet 650 mg PO Q4H PRN PRN (Reason: Pain 1-10 Or Fever) Qty: 0 0RF ferrous sulfate 325 mg (65 mg iron) tablet 325 mg PO Q OTHER DAY Rx Instructions: only finasteride 5 mg tablet 5 mg PO DAILY Qty: 90 3RF ergocalciferol (vitamin D2) 1,250 mcg (50,000 unit) capsule 50,000 unit PO QMONTH Qty: 12 0RF (DME) pen needle, diabetic [BD Ultra-Fine Mini Pen Needle] 31 gauge x 3/16 needle See Rx Instructions .ROUTE .MEDSUPPLY Qty: 100 3RF Rx Instructions: daily for type 2 dm flecainide 100 mg tablet 100 mg PO Q12H Qty: 180 2RF Hold Instructions: bradycardia 07/09 progesterone micronized 100 mg capsule 100 mg PO QAM Qty: 90 1RF amlodipine 10 mg tablet 5 mg PO DAILY Qty: 90 3RF metoprolol succinate 25 mg tablet extended release 24 hr 12.5 mg PO DAILY olmesartan 40 mg tablet 20 mg PO BID Qty: 90 3RF famotidine 40 mg tablet 40 mg PO DAILY Qty: 90 3RF hydralazine 50 mg tablet 50 mg PO BID Qty: 60 11RF Mounjaro 5 mg/0.5 mL pen injector 5 mg subcut QWEEK Qty: 2 1RF (DME) blood sugar diagnostic Strip See Rx Instructions .ROUTE .MEDSUPPLY Qty: 100 3RF Rx Instructions: One Touch Elena test strip, use to test blood sugar 3 times daily. Dx E11.42 insulin glargine 100 unit/mL (3 mL) insulin pen 30 unit subcut QAM Qty: 15 1RF dulaglutide 4.5 mg/0.5 mL pen injector 4.5 mg SC .COMPLEX 90 Days Qty: 2 2RF Rx Instructions: 4.5 mg subcut every friday Primary Care Provider: Tosha Shrestha Referrals: Tosha Shrestha MD [Primary Care Provider] - Helio Melendrez DPM [Med Staff - Active Staff] - Activity Restrictions/Additional Instructions: Your work-up today shows you had an infection with pus in the tip of your left second toe but x-ray does not suggest you have a bone infection or osteomyelitis. Take your antibiotic as directed to resolve the infection and return to the ER should you have any further concerns or worsening of symptoms. Please contact your acquisition professional and follow-up with him for repeat evaluation as well Disposition Disposition: Home, Self Care Discharge Date/Time: 09/13/22 04:26
[2022-09-13 04:01] VITALS: BP 146/102; PULSE 70; RESP 15; O2SAT 94
[2022-09-13] MEDS: Amox/Clavulanate 875 MG Tablet PO (04:17)
== END 2022-09-13 04:26 | disposition home or self-care (01) ==
PROVIDERS: Emergency Provider Emergency Medicine; PCP Internal Medicine; Visit Provider Emergency Medicine
DX: L02.612 Cutaneous abscess of left foot (principal); I13.0 Hypertensive heart and chronic kidney disease with heart failure and stage 1 through stage 4 chronic kidney disease, or unspecified chronic kidney disease; I50.32 Chronic diastolic (congestive) heart failure; E11.22 Type 2 diabetes mellitus with diabetic chronic kidney disease; E11.42 Type 2 diabetes mellitus with diabetic polyneuropathy; I48.0 Paroxysmal atrial fibrillation; Z79.4 Long term (current) use of insulin; N18.30 Chronic kidney disease, stage 3 unspecified; L03.032 Cellulitis of left toe; E78.5 Hyperlipidemia, unspecified; I25.10 Atherosclerotic heart disease of native coronary artery without angina pectoris; G47.33 Obstructive sleep apnea (adult) (pediatric); E66.9 Obesity, unspecified; Z86.718 Personal history of other venous thrombosis and embolism; Z86.73 Personal history of transient ischemic attack (TIA), and cerebral infarction without residual deficits; Z79.899 Other long term (current) drug therapy
CPT/HCPCS: 73630; 99283

== ENCOUNTER 2022-09-20 13:18 | Emergency (ER) | payer MEDICARE, BC, SELFPAY ==
[2022-09-20 13:18] VITALS: BP 173/59; PULSE 63; RESP 18; TEMP 36.4; O2SAT 100; BMI 25.0
--- NOTE | 2022-09-20 13:53 | RAD_ITS ---
STUDY: X-RAY - LEFT FOOT CLINICAL: Male, 82 years old. Painful first toe. Possible infection. TECHNIQUE: 3 view(s) of the foot. COMPARISON: Comparison is made with prior study dated 03/13/2023. FINDINGS: Normal talus, calcaneus, and tarsal bones. Stable appearance of the arthrodesis of the talonavicular articulation as well as the calcaneocuboid articulation with screw and plate fixation device. Normal metatarsi. There is degenerative arthrosis of the metatarsophalangeal joint of the hallux . Normal tibial and fibular sesamoid bones. There is degenerative arthrosis of the interphalangeal joint of the great toe. Findings suggestive of a 1.2 cm x 1.6 cm lucency at the base of the distal phalanx of the great toe. This may represent changes secondary to osteomyelitis. Joint space narrowing of the metatarsophalangeal joints. Normal interphalangeal joints and phalanges of the lesser toes. Soft tissue swelling. RAD/Foot min 3 Views IMPRESSION: Postoperative changes of the tarsal bones as described. Persistent low density lesion at the base of the distal phalanx of the great toe suggestive of possible osteomyelitis. Electronically Signed: Leo Fay MD at 14:30 EST ,
--- NOTE | 2022-09-20 13:53 | EKG12_ITS ---
Test Reason : Blood Pressure : / mmHG Vent. Rate : 059 BPM Atrial Rate : 000 BPM P-R Int : 000 ms QRS Dur : 104 ms QT Int : 478 ms P-R-T Axes : 000 059 071 degrees QTc Int : 473 ms Junctional rhythm Abnormal ECG Confirmed by SYBIL BRENNER MD ([id number]), manuscript editor LILIA BATRES ([id number]) on 09/23/2022 11:10:36 AM Referred By: FREDDY Confirmed By:SYBIL BRENNER MD
--- NOTE | 2022-09-20 13:55 | EX.ED.DYSGE1 ---
HPI History of Present Illness Chief Complaint: Dizziness Informant: patient and spouse/S.O. Onset/Context/Timing Onset: Days Narrative Narrative: Patient presents secondary generalized weakness and dizziness. Over the past 3 days he has had dizziness which she describes as room spinning when he lies down or turns his head suddenly. He also complains of shortness of breath when he tries to lie down. He does have a history of CHF. He states has been taking his Lasix and urinates frequently, however feels like he still has significant swelling. He denies chest pain. He presented to the hospital today to have a Holter monitor placed and apparent became dizzy with near syncope and was brought to the emergency room. [facility] Medical History (HFpEF) heart failure with preserved ejection fraction (12/12/20) Acute respiratory failure with hypoxia Anemia Anemia of chronic renal failure, stage 3 (moderate) Anxiety and depression Atherosclerotic heart disease of elem coronary artery without angina pectoris Atrial flutter Atypical chest pain Back pain BMI 34.0-34.9,adult BPH (benign prostatic hyperplasia) BPPV (benign paroxysmal positional vertigo) Bradycardia Cardiac dysrhythmia Cardiology follow-up encounter CHF (congestive heart failure) De Quervain's tenosynovitis Debility Depression Dermatitis Diabetes mellitus Diabetic kidney disease Dizziness DM type 2 with diabetic peripheral neuropathy DVT (deep venous thrombosis) Dyslipidemia Dysphagia Essential (primary) hypertension Fall Flu vaccine need Fracture of great toe Gastric reflux Health care maintenance History of echocardiogram History of edema History of GI bleed History of peptic ulcer History of renal calculi History of ulceration HLD (hyperlipidemia) Injury of head and neck Iron deficiency anemia Iron deficiency anemia due to chronic blood loss Kidney hematoma (12/08/20) Left knee pain Left leg DVT Loss of equilibrium Low iron Malaise Near syncope Orthostatic hypotension MACHELLE (obstructive sleep apnea) Pain of left lower extremity Paroxysmal atrial fibrillation Paroxysmal atrial flutter Pneumonia Polypharmacy Prostate disease Psoriasis Recurrent syncope (06/19/22) Renal calculi RLS (restless legs syndrome) Sex disorder Suicidal ideation SVT (supraventricular tachycardia) TIA (transient ischemic attack) Urolithiasis Venous insufficiency of both lower extremities Vertigo Walker as ambulation aid Wears glasses Home Medications finasteride 5 mg tablet 5 mg PO DAILY PROSTATE #90 tabs 11/03/18 [Rx Last Taken 08/05/21] acetaminophen 325 mg tablet (Tylenol) 650 mg PO Q4H PRN PRN Pain 1-10 Or Fever #0 tabs 12/15/20 [Rx Last Taken Unknown] blood pressure monitor #1 ea 03/13/21 [Rx Last Taken Unknown] lancets 30 gauge ([employer] Delica Lancets) #200 ea 10/26/21 [Rx Last Taken Unknown] pramipexole 1 mg tablet (Mirapex) 2 mg PO QHS RLS #180 tabs 12/10/21 [Rx Last Taken Unknown] simvastatin 20 mg tablet 20 mg PO QHS #90 tabs 12/10/21 [Rx Last Taken Unknown] ergocalciferol (vitamin D2) 1,250 mcg (50,000 unit) capsule 50,000 unit PO QMONTH #12 caps 01/01/22 [Rx Last Taken Unknown] pen needle, diabetic 31 gauge x 3/16 (BD Ultra-Fine Mini Pen Needle) #100 ea 01/23/22 [Rx Last Taken Unknown] flecainide 100 mg tablet 100 mg PO Q12H HEART RATE #180 tabs 04/01/22 [Rx Last Taken 06/26/22] sertraline 25 mg tablet 25 mg PO DAILY 04/05/22 [History Last Taken Unknown] progesterone micronized 100 mg capsule 100 mg PO QAM #90 caps 06/24/22 [Rx Last Taken Unknown] compress.stocking,knee,reg,lrg #2 ea 07/05/22 [Rx Last Taken Unknown] amlodipine 10 mg tablet 5 mg PO DAILY #90 tabs 07/09/22 [Rx Last Taken Unknown] metoprolol succinate 25 mg tablet,extended release 24 hr 12.5 mg PO DAILY 07/16/22 [History Last Taken Unknown] ferrous sulfate 325 mg (65 mg iron) tablet 325 mg PO Q OTHER DAY supplement 07/31/22 [History Last Taken Unknown] furosemide 40 mg tablet 40 mg PO DAILY 07/31/22 [History Last Taken Unknown] olmesartan 40 mg tablet 20 mg PO BID #90 tabs 08/05/22 [Rx Last Taken Unknown] famotidine 40 mg tablet 40 mg PO DAILY #90 tabs 09/02/22 [Rx Last Taken Unknown] hydralazine 50 mg tablet 50 mg PO BID This is a dose increase #60 tabs 09/02/22 [Rx Last Taken Unknown] blood sugar diagnostic #100 ea 09/05/22 [Rx Last Taken Unknown] insulin glargine 100 unit/mL (3 mL) subcutaneous pen 30 unit (0.3 mL) subcut QAM #15 mL 09/05/22 [Rx Last Taken Unknown] tirzepatide 5 mg/0.5 mL subcutaneous pen injector (Mounjaro) 5 mg (0.5 mL) subcut QWEEK #2 mL 09/05/22 [Rx Last Taken Unknown] dulaglutide 4.5 mg/0.5 mL subcutaneous pen injector 4.5 mg (0.5 mL) subcut .COMPLEX 3 months #2 mL 09/06/22 [Rx Last Taken Unknown] amoxicillin 875 mg-potassium clavulanate 125 mg tablet 1 tab PO BID 10 days #20 tabs 09/13/22 [Rx Last Taken Unknown] meclizine 25 mg tablet 25 mg PO TID PRN dizziness #20 tabs 09/20/22 [Rx Last Taken Unknown] Allergy/AdvReac Type Severity Reaction Status Date / Time hydrocodone bitartrate AdvReac Severe Other Verified 09/20/22 13:21 [From Vicodin] hydroxyzine AdvReac Severe Other Verified 09/20/22 13:21 Family History Father Diabetes Hypertension Cancer Lung cancer Mother Hypertension CVA (cerebral vascular accident) Sister Diabetes Son Diabetes Surgical History History of cardioversion (2015) History of cataract surgery History of left heart catheterization (02/16/13) History of lithotripsy (11/2020) History of loop recorder (06/26/22) History of radiofrequency ablation procedure for cardiac arrhythmia (02/05/06) history of right knee cap fracture History of right knee surgery Status post laser lithotripsy of ureteral calculus Status post left foot surgery STENT PLACEMENT FOR KIDNEY STONE Social History household members: spouse housing: house Smoking Status: Never smoker how long ago did patient quit smokin second hand exposure: No alcohol intake: never substance use type: does not use caffeine: No what type of physical activity do you participate in: none seatbelt use: always do you feel safe at home: Yes ROS ROS ED Constitutional Constitutional ED: Denies chills or fever(s) Eyes Eyes: Denies change in vision or discharge from eye(s) ENT ENT ED: Denies discharge from eye(s), rhinorrhea or sore throat Cardiovascular Cardiovascular: Denies chest pain or palpitations Respiratory/Chest Respiratory/Chest: Denies cough or dyspnea Gastrointestinal Gastrointestinal: Denies abdominal pain, diarrhea, nausea or vomiting Genitourinary Genitourinary ED: Denies dysuria Musculoskeletal Musculoskeletal: Denies back pain or extremity pain Integumentary Denies Abrasions or rash Neurologic Neurologic: Reports headache(s) and weakness Psychiatric Psychiatric: Denies anxiety or depression Endocrine Endocrinology: Denies polydipsia or polyuria Allergic/Immunologic Allergic/Immunologic ED: Denies lip swelling or urticaria EXAM Physical Exam Const Vital Signs: 09/20/22 13:18 09/20/22 14:04 Temperature 97.6 F L Temperature Source Temporal Pulse Rate 63 Respiratory Rate 18 Respiratory Effort Short of Breath Blood Pressure 173/59 H Blood Pressure Mean 97 Pulse Ox 100 Oxygen Delivery Method Room Air Positive well nourished and well developed General Appearance ED: well developed HEENT Reports moist mucous membranes Eyes EOMs intact bilaterally Chest Wall inspection of chest normal and palpation of chest normal Resp normal respiratory effort and clear to auscultation bilaterally Cardio regular rate and regular rhythm GI normal to inspection, nondistended, normoactive bowel sounds Extremity Extremity Narrative: Mild edema noted to the left second toe. No significant erythema. No drainage. Neuro oriented x3 Neuro Narrative: No focal neurologic deficits. 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 EKG obtained to evaluate for ischemia or arrhythmia. Portable chest x-ray obtained given shortness of breath to evaluate for acute lung pathology. Lab work obtained to evaluate for signs of infection, anemia, electrolyte derangement. Left foot x-ray obtained given recent left second toe infection to ensure no sign of osteomyelitis. Patient given Antivert. Lab Data Attestation: I reviewed the patient's lab results. Labs: Laboratory Results - last 24 hr 09/20/22 09/20/22 09/20/22 14:04 14:04 14:04 WBC 6.5 RBC 3.65 L Hgb 11.1 L Hct 34.4 L MCV 94.2 H MCH 30.4 MCHC 32.3 RDW Std Deviation 45.8 H RDW Coeff of Flavio 13.2 Plt Count 174 MPV 9.1 Immature Gran % (Auto) 0.900 Neut % (Auto) 66.5 Lymph % (Auto) 21.1 Laurens % (Auto) 8.6 Eos % (Auto) 2.3 Baso % (Auto) 0.6 Absolute Neuts (auto) 4.3 Absolute Lymphs (auto) 1.37 Nucleated RBC % 0 Sodium 142 Potassium 4.3 Chloride 109 H Carbon Dioxide 24.0 Anion Gap 9 BUN 28 H Creatinine 1.29 Estim Creat Clear Calc 47.62 Est GFR (MDRD) Af Amer 68 Est GFR (MDRD) Non-Af 57 L BUN/Creatinine Ratio 21.7 H Glucose 135 H Calcium 8.8 Total Bilirubin 0.30 Direct Bilirubin 0.13 AST 18 ALT 23 Alkaline Phosphatase 70 Troponin I High Sens 28 B-Natriuretic Peptide 231.7 H Total Protein 6.9 Albumin 3.3 Globulin 3.6 Urine Color Urine Clarity Urine pH Ur Specific Jasper Urine Protein Urine Glucose (UA) Urine Ketones Urine Occult Blood Urine Nitrite Urine Bilirubin Urine Urobilinogen Ur Leukocyte Esterase Urine RBC Urine WBC Ur Squamous Epith Cells Urine Bacteria Urine Mucus 09/20/22 15:05 WBC RBC Hgb Hct MCV MCH MCHC RDW Std Deviation RDW Coeff of Flavio Plt Count MPV Immature Gran % (Auto) Neut % (Auto) Lymph % (Auto) Laurens % (Auto) Eos % (Auto) Baso % (Auto) Absolute Neuts (auto) Absolute Lymphs (auto) Nucleated RBC % Sodium Potassium Chloride Carbon Dioxide Anion Gap BUN Creatinine Estim Creat Clear Calc Est GFR (MDRD) Af Amer Est GFR (MDRD) Non-Af BUN/Creatinine Ratio Glucose Calcium Total Bilirubin Direct Bilirubin AST ALT Alkaline Phosphatase Troponin I High Sens B-Natriuretic Peptide Total Protein Albumin Globulin Urine Color Yellow Urine Clarity Clear Urine pH 6.0 Ur Specific Jasper 1.010 Urine Protein 100 H Urine Glucose (UA) Normal Urine Ketones Negative Urine Occult Blood 10 H Urine Nitrite Negative Urine Bilirubin Negative Urine Urobilinogen Normal Ur Leukocyte Esterase 25 H Urine RBC 0 SEEN Urine WBC 0 SEEN Ur Squamous Epith Cells 0 SEEN Urine Bacteria 0 SEEN Urine Mucus 0 SEEN Radiography Chest X-Ray - ED: 1 View, Read by ED Physician, Chronic Changes and Cardiomegaly Diagnostic Testing: Clinical Impression(s) from Imaging Studies Foot X-Ray 09/20/22 13:53 IMPRESSION: Postoperative changes of the tarsal bones as described. Persistent low density lesion at the base of the distal phalanx of the great toe suggestive of possible osteomyelitis. Electronically Signed: Leo Fay MD at 14:30 EST , Chest X-Ray 09/20/22 16:18 IMPRESSION: Poor inspiration with some bibasilar atelectasis. Cardiomegaly. Electronically Signed: Vin Gibbs MD at 16:40 EST , EKG Initial EKG: Attestation: I personally reviewed and interpreted this EKG as follows: Interpretation: Sinus Rhythm (Sinus at 59 with first-degree AV block.) Treatment and Re-Evaluation Narrative: Repeat evaluation patient reports his dizziness is somewhat improved. CBC reveals normal white count. Hemoglobin is 11.1 which is consistent with his prior values. Chemistry studies unremarkable. LFTs normal. BNP is 231, consistent with prior values. Troponin is normal. Urinalysis reveals no acute infection. Chest x-ray per my interpretation reveals mild cardiomegaly and chronic changes. I do not see significant signs of fluid overload. Left foot x-ray reveals no bony changes to the left second toe. Radiology comments about possible osteomyelitis to the great toe, however patient has no symptoms to this area. Patient was able to get up and ambulate with his walker to the bathroom and back. At this time he will be given a prescription for Antivert at home. Return instructions have been given. Discharge Plan Triage Chief Complaint: Dizziness ED Provider: Zo Yin Dx/Rx/DC Orders Clinical Impression: Vertigo Instructions: ED Vertigo, Unspecified Prescriptions: New meclizine 25 mg tablet 25 mg PO TID PRN (Reason: dizziness) Qty: 20 0RF No Action (DME) blood pressure monitor Kit See Rx Instructions .ROUTE .MEDSUPPLY Qty: 1 0RF Rx Instructions: check blood pressure daily (DME) lancets [OneTouch Delica Lancets] 30 gauge misc See Rx Instructions .ROUTE .MEDSUPPLY Qty: 200 3RF Rx Instructions: check blood sugar tid for type 2 DM simvastatin 20 mg tablet 20 mg PO QHS Qty: 90 3RF pramipexole [Mirapex] 1 mg tablet 2 mg PO QHS Qty: 180 3RF furosemide 40 mg tablet 40 mg PO DAILY sertraline 25 mg tablet 25 mg PO DAILY (DME) compress.stocking,knee,reg,lrg Misc See Rx Instructions .MEDSUPPLY Qty: 2 1RF Rx Instructions: wear daily for venous insufficiency 20-30 mmHg acetaminophen [Tylenol] 325 mg Tablet 650 mg PO Q4H PRN PRN (Reason: Pain 1-10 Or Fever) Qty: 0 0RF ferrous sulfate 325 mg (65 mg iron) tablet 325 mg PO Q OTHER DAY Rx Instructions: only amoxicillin-pot clavulanate 875-125 mg tablet 1 tab PO BID 10 Days Qty: 20 0RF finasteride 5 mg tablet 5 mg PO DAILY Qty: 90 3RF ergocalciferol (vitamin D2) 1,250 mcg (50,000 unit) capsule 50,000 unit PO QMONTH Qty: 12 0RF (DME) pen needle, diabetic [BD Ultra-Fine Mini Pen Needle] 31 gauge x 3/16 needle See Rx Instructions .ROUTE .MEDSUPPLY Qty: 100 3RF Rx Instructions: daily for type 2 dm flecainide 100 mg tablet 100 mg PO Q12H Qty: 180 2RF Hold Instructions: bradycardia 07/09 progesterone micronized 100 mg capsule 100 mg PO QAM Qty: 90 1RF amlodipine 10 mg tablet 5 mg PO DAILY Qty: 90 3RF metoprolol succinate 25 mg tablet extended release 24 hr 12.5 mg PO DAILY olmesartan 40 mg tablet 20 mg PO BID Qty: 90 3RF famotidine 40 mg tablet 40 mg PO DAILY Qty: 90 3RF hydralazine 50 mg tablet 50 mg PO BID Qty: 60 11RF Mounjaro 5 mg/0.5 mL pen injector 5 mg subcut QWEEK Qty: 2 1RF (DME) blood sugar diagnostic Strip See Rx Instructions .ROUTE .MEDSUPPLY Qty: 100 3RF Rx Instructions: One Touch Elena test strip, use to test blood sugar 3 times daily. Dx E11.42 insulin glargine 100 unit/mL (3 mL) insulin pen 30 unit subcut QAM Qty: 15 1RF dulaglutide 4.5 mg/0.5 mL pen injector 4.5 mg SC .COMPLEX 90 Days Qty: 2 2RF Rx Instructions: 4.5 mg subcut every friday Primary Care Provider: Tosha Shrestha Referrals: Tosha Shrestha MD [Primary Care Provider] - 1 Week Disposition Disposition: Home, Self Care
[2022-09-20 14:08] LABS: Absolute Lymphocyte Count 1.37 X10^3/uL (0.83-4.51); Absolute Neutrophil Count 4.3 X10^3/uL (2.0-7.7); Basophil# 0.04 X10^3/uL; Basophil% 0.6 % (0-1); Eosinophil# 0.15 X10^3/uL; Eosinophils% 2.3 % (0-5); Hematocrit 34.4 % (40-54); Hemoglobin 11.1 g/dL (13.0-16.5); Lymphocyte # 1.37 X10^3/ul (0.83-4.51); Lymphocyte % 21.1 % (19-41); Mean Corp Hgb Conc 32.3 g/dL (32-36); Mean Corpuscular Hgb 30.4 pg (27.0-32.0); Mean Corpuscular Volume 94.2 fL (80-94); Mean Platelet Vol. 9.1 fl (6.2-12.0); Monocyte# 0.56 X10^3/uL; Monocyte% 8.6 % (0-10); NRBC Flagged by Analyzer 0 % (0-5); Neutrophil # 4.31 X10^3/uL (2.7-7.7); Neutrophil % 66.5 % (47-70); Platelet Count 174 K/mm3 (150-450); RBC Distribution Width CV 13.2 % (11.6-14.6); RBC Distribution Width SD 45.8 fl (35.1-43.9); Red Blood Count 3.65 M/mm3 (4.6-6.2); White Blood Count 6.5 K/mm3 (4.4-11.0)
[2022-09-20] MEDS: Meclizine HCl 25 MG Tablet PO (14:08)
[2022-09-20 14:26] LABS: AST(SGOT) 18 U/L (15-37); Alanine Aminotransfer ALT/SGPT 23 U/L (16-61); Albumin, Serum 3.3 g/dL (3.2-5.0); Alkaline Phosphatase 70 U/L (45-117); Anion Gap 9 (5-15); BUN 28 mg/dL (7-18); BUN/Creat Ratio 21.7 RATIO (10-20); Bilirubin, Direct 0.13 mg/dL (0.00-0.30); Calcium,Total 8.8 mg/dL (8.5-10.1); Chloride 109 mmol/L (98-107); Creatinine, Serum 1.29 mg/dL (0.70-1.30); EST Glomerular Filtration Rate 57 mL/min (>60); Est Glom Filt Rate - Afr Amer 68 mL/min (>60); Estimated Creatinine Clearance 47.62 ml/min; Globulin 3.6 g/dL (2.2-4.2); Glucose 135 mg/dL (74-106); Potassium 4.3 mmol/L (3.5-5.1); Protein, Total 6.9 g/dL (6.4-8.2); Sodium Level 142 mmol/L (136-145); Troponin-I HS 28 pg/mL (3.0-78.0)
[2022-09-20 15:09] LABS: Bacteria 0 SEEN /hpf (None Seen); Mucous, Urine 0 SEEN /hpf (<or=2+); Red Blood Cells-Urine 0 SEEN /hpf (0-5); Squamous Epithelial Cells - UA 0 SEEN /hpf (0-5); White Blood Cells 0 SEEN /hpf (0-5)
[2022-09-20 15:13] LABS: Color, Urine Yellow (Yellow); Glucose, Dipstick Normal (Normal); Ketone-Dipstick Negative (Negative); Leukocyte Esterase-Dipstick 25 /ul (Negative); Nitrite-Dipstick Negative (Negative); Occult Blood-Urine 10 /ul (Negative); Protein-Dipstick 100 mg/dl (Negative); Urine Bilirubin Dipstick Negative (Negative); Urine Clarity Clear (Clear); Urine Urobilinogen Normal (Normal)
--- NOTE | 2022-09-20 16:18 | RAD_ITS ---
STUDY: X-RAY CHEST REASON FOR EXAM: Male, 82 years old. sob TECHNIQUE: Single AP portable view of the chest. COMPARISON: 09/02/2022 FINDINGS: Insertable night monitor. Poor inspiration with some bibasilar atelectasis. There is no demonstrated pleural abnormality. There is moderate cardiac enlargement. Normal mediastinum and lakhwinder. Normal visualized pulmonary arteries. Normal visualized aortic arch and descending thoracic aorta. Normal visualized thoracic spine. Normal visualized ribs, clavicles, and shoulders. There is no demonstrated abnormality of the visualized soft tissue structures of the upper abdomen. RAD/Chest 1 View (Portable) IMPRESSION: Poor inspiration with some bibasilar atelectasis. Cardiomegaly. Electronically Signed: Vin Gibbs MD at 16:40 EST ,
[2022-09-20 16:35] LABS: BNP,B-Type NATRIURETIC PEPTIDE 231.7 pg/mL (0-100)
[2022-09-20 17:18] VITALS: BP 167/60; PULSE 60
== END 2022-09-20 17:32 | disposition home or self-care (01) ==
PROVIDERS: Emergency Provider Emergency Medicine; PCP Internal Medicine; Visit Provider Emergency Medicine
DX: R42 Dizziness and giddiness (principal); I50.32 Chronic diastolic (congestive) heart failure; I25.10 Atherosclerotic heart disease of native coronary artery without angina pectoris; G47.33 Obstructive sleep apnea (adult) (pediatric); R53.1 Weakness; Z86.718 Personal history of other venous thrombosis and embolism; Z86.73 Personal history of transient ischemic attack (TIA), and cerebral infarction without residual deficits
CPT/HCPCS: 99285; 71045; 73630; 80048; 80076; 81001; 83880; 84484; 85025; 93005; A4216

== ENCOUNTER → 2022-09-20 | Outpatient (CLI) | payer MEDICARE, BC, SELFPAY ==
--- NOTE | 2022-09-20 12:29 | CDU_ITS ---
Reason For Study: DIZZINESS Rt. Velocities/BP Lt. Velocities/BP Prox CCA 83.4/9.7 cm/sec. Prox CCA 136.3/17.2 cm/sec. Mid CCA 82.1/12.2 cm/sec. Mid CCA 151.9/6.7 cm/sec. Dist CCA 79.7/9.7 cm/sec. Dist CCA 64.4/5.1 cm/sec. Prox ICA 76.0/13.4 cm/sec. Prox ICA 85.3/11.7 cm/sec. Mid ICA 80.9/12.2 cm/sec. Mid ICA 93.0/18.2 cm/sec. Dist ICA 105.2/19.4 cm/sec. Dist ICA 83.4/17.6 cm/sec. Rt. ICA/CCA = 105.2/82.1=1.3. Lt. ICA/CCA = 93.0/151.9=0.6. Prox ECA 83.4/9.7 cm/sec. Prox ECA 65.5/4.0 cm/sec. Rt. Vert. 78.5/10.9 cm/sec. Lt. Vert. 49.7/10.0 cm/sec. Right Extracranial There is intimal thickening but no significant atherosclerotic plaque noted in the right common carotid artery. There is intimal thickening but no significant atherosclerotic plaque noted in the right internal carotid artery. The right internal carotid artery is very tortuous. There is no significant atherosclerotic plaque noted in the right external carotid artery. Antegrade flow is noted in the right vertebral artery. Left Extracranial There is intimal thickening but no significant atherosclerotic plaque noted in the left common carotid artery. There is heterogeneous, irregular atherosclerotic plaque noted in the left internal carotid artery. The left internal carotid artery is very tortuous. There is no significant atherosclerotic plaque noted in the left external carotid artery. Antegrade flow is noted in the left vertebral artery. Procedure PT was severely dizzy, at end of exam still very dizzy and unsteady. PT states his dizziness as gotten worse this week. PT was in agreement to be taken to ED to be evaluated. VL/Carotid Duplex Ultrasound Interpretation Summary Intimal thickening of the right carotid bulb and internal carotid artery with l ess than 50% stenosis of the internal carotid artery Less than 50% stenosis right external carotid artery Irregular calcific plaque with shadowing at the proximal left internal carotid artery with less than 50% stenosis. Tortuous left internal carotid artery noted. Patent antegrade vertebrals bilaterally Ordering Physician: Ronnie Dyer Referring Physician: Tosha Shrestha Performed By: Maribel Quezada, RDCS, RVT
== END | disposition home or self-care (01) ==
LOC: CVS 09-25 15:06
PROVIDERS: PCP Internal Medicine; Visit Provider Nurse Practitioner Family
DX: R03.0 Elevated blood-pressure reading, without diagnosis of hypertension (principal); I50.32 Chronic diastolic (congestive) heart failure; I48.92 Unspecified atrial flutter; I65.22 Occlusion and stenosis of left carotid artery; R42 Dizziness and giddiness; I25.10 Atherosclerotic heart disease of native coronary artery without angina pectoris; G47.33 Obstructive sleep apnea (adult) (pediatric); R53.1 Weakness; Z86.718 Personal history of other venous thrombosis and embolism; Z86.73 Personal history of transient ischemic attack (TIA), and cerebral infarction without residual deficits; Z98.890 Other specified postprocedural states
CPT/HCPCS: 71045; 73630; 80048; 80076; 81001; 83880; 84484; 85025; 93005; 93880; 99285; A4216

== ENCOUNTER 2022-10-06 05:40 | Inpatient (IN) | payer MEDICARE, BC, SELFPAY ==
[2022-10-06] VITALS (12 sets, daily range): BP systolic 163–205; BP diastolic 53–78; PULSE 61–71; RESP 20–23; TEMP 36.1–36.6; O2SAT 87–99; BMI 40.1; BMI 39.9
--- NOTE | 2022-10-06 05:57 | EKG12_ITS ---
Test Reason : CHEST HEAVYNESS/SOB Blood Pressure : / mmHG Vent. Rate : 059 BPM Atrial Rate : 000 BPM P-R Int : 000 ms QRS Dur : 100 ms QT Int : 476 ms P-R-T Axes : 000 073 067 degrees QTc Int : 471 ms Sinus rhythm Confirmed by SYBIL BRENNER MD ([id number]), department editor NITZA ROJAS ([id number]) on 10/07/2022 1:12:42 PM Referred By: FREDDY Confirmed By:SYBIL BRENNER MD
--- NOTE | 2022-10-06 05:58 | ED.VIS.CHEST ---
HPI History of Present Illness Chief Complaint: Chest Pain Informant: patient Onset/Context/Timing Onset: Hours Narrative Narrative: Patient presents secondary to shortness of breath and chest pain. He states he went back to bed fairly early last night because he was having problems with his restless legs. He put his CPAP mask on. Within an hour he had to get up because of shortness of breath. He states he could breathe better when he was sitting upright as opposed to lying down flat. A couple times during the night he went out to sit in his lift chair. When sitting upright he would get a slight pressure in the center of his chest. Patient does have a history of CHF. He is on Lasix regularly. He is currently only taking half of his spironolactone dose. Patient states that it made him feel weak and tired so his doctor told him to cut back to half tab. PFSH PFSH Medical History (HFpEF) heart failure with preserved ejection fraction (12/12/20) Acute respiratory failure with hypoxia Anemia Anemia of chronic renal failure, stage 3 (moderate) Anxiety and depression Atherosclerotic heart disease of [place] coronary artery without angina pectoris Atrial flutter Atypical chest pain Back pain BMI 34.0-34.9,adult BPH (benign prostatic hyperplasia) BPPV (benign paroxysmal positional vertigo) Bradycardia Cardiac dysrhythmia Cardiology follow-up encounter CHF (congestive heart failure) De Quervain's tenosynovitis Debility Depression Dermatitis Diabetes mellitus Diabetic kidney disease Dizziness DM type 2 with diabetic peripheral neuropathy DVT (deep venous thrombosis) Dyslipidemia Dysphagia Essential (primary) hypertension Fall Flu vaccine need Fracture of great toe Gastric reflux Health care maintenance History of echocardiogram History of edema History of GI bleed History of peptic ulcer History of renal calculi History of ulceration HLD (hyperlipidemia) Injury of head and neck Iron deficiency anemia Iron deficiency anemia due to chronic blood loss Kidney hematoma (12/08/20) Left knee pain Left leg DVT Loss of equilibrium Low iron Malaise Near syncope Orthostatic hypotension MACHELLE (obstructive sleep apnea) Pain of left lower extremity Paroxysmal atrial fibrillation Paroxysmal atrial flutter Pneumonia Polypharmacy Prostate disease Psoriasis Recurrent syncope (06/19/22) Renal calculi RLS (restless legs syndrome) Sex disorder Suicidal ideation SVT (supraventricular tachycardia) TIA (transient ischemic attack) Urolithiasis Venous insufficiency of both lower extremities Vertigo Walker as ambulation aid Wears glasses Home Medications finasteride 5 mg tablet 5 mg PO DAILY PROSTATE #90 tabs 11/03/18 [Rx Last Taken 08/05/21] acetaminophen 325 mg tablet (Tylenol) 650 mg PO Q4H PRN PRN Pain 1-10 Or Fever #0 tabs 12/15/20 [Rx Last Taken Unknown] blood pressure monitor #1 ea 03/13/21 [Rx Last Taken Unknown] lancets 30 gauge ([employer] Lancets) #200 ea 10/26/21 [Rx Last Taken Unknown] pramipexole 1 mg tablet (Mirapex) 2 mg PO QHS RLS #180 tabs 12/10/21 [Rx Last Taken Unknown] simvastatin 20 mg tablet 20 mg PO QHS #90 tabs 12/10/21 [Rx Last Taken Unknown] ergocalciferol (vitamin D2) 1,250 mcg (50,000 unit) capsule 50,000 unit PO QMONTH #12 caps 01/01/22 [Rx Last Taken Unknown] pen needle, diabetic 31 gauge x 3/16 (BD Ultra-Fine Mini Pen Needle) #100 ea 01/23/22 [Rx Last Taken Unknown] flecainide 100 mg tablet 100 mg PO Q12H HEART RATE #180 tabs 04/01/22 [Rx Last Taken 06/26/22] sertraline 25 mg tablet 25 mg PO DAILY 04/05/22 [History Last Taken Unknown] progesterone micronized 100 mg capsule 100 mg PO QAM #90 caps 06/24/22 [Rx Last Taken Unknown] compress.stocking,knee,reg,lrg #2 ea 07/05/22 [Rx Last Taken Unknown] amlodipine 10 mg tablet 5 mg PO DAILY #90 tabs 07/09/22 [Rx Last Taken Unknown] metoprolol succinate 25 mg tablet,extended release 24 hr 12.5 mg PO DAILY 07/16/22 [History Last Taken Unknown] ferrous sulfate 325 mg (65 mg iron) tablet 325 mg PO Q OTHER DAY supplement 07/31/22 [History Last Taken Unknown] furosemide 40 mg tablet 40 mg PO DAILY 07/31/22 [History Last Taken Unknown] olmesartan 40 mg tablet 20 mg PO BID #90 tabs 08/05/22 [Rx Last Taken Unknown] famotidine 40 mg tablet 40 mg PO DAILY #90 tabs 09/02/22 [Rx Last Taken Unknown] blood sugar diagnostic #100 ea 09/05/22 [Rx Last Taken Unknown] insulin glargine 100 unit/mL (3 mL) subcutaneous pen 30 unit (0.3 mL) subcut QAM #15 mL 09/05/22 [Rx Last Taken Unknown] tirzepatide 5 mg/0.5 mL subcutaneous pen injector (Mounjaro) 5 mg (0.5 mL) subcut QWEEK #2 mL 09/05/22 [Rx Last Taken Unknown] amoxicillin 875 mg-potassium clavulanate 125 mg tablet 1 tab PO BID 10 days #20 tabs 09/13/22 [Rx Last Taken Unknown] hydralazine 50 mg tablet 50 mg PO BID #180 tabs 09/23/22 [Rx Last Taken Unknown] spironolactone 25 mg tablet 25 mg PO DAILY 09/30/22 [History Last Taken Unknown] dulaglutide 4.5 mg/0.5 mL subcutaneous pen injector 4.5 mg (0.5 mL) subcut .COMPLEX 3 months #2 mL 10/01/22 [Rx Last Taken Unknown] meclizine 25 mg tablet 25 mg PO TID PRN dizziness #20 tabs 10/01/22 [Rx Last Taken Unknown] Allergy/AdvReac Type Severity Reaction Status Date / Time hydrocodone bitartrate AdvReac Severe Other Verified 09/23/22 11:10 [From Vicodin] hydroxyzine AdvReac Severe Other Verified 09/23/22 11:10 Family History Father Diabetes Hypertension Cancer Lung cancer Mother Hypertension CVA (cerebral vascular accident) Sister Diabetes Son Diabetes Surgical History History of cardioversion (2015) History of cataract surgery History of left heart catheterization (02/16/13) History of lithotripsy (11/2020) History of loop recorder (06/26/22) History of radiofrequency ablation procedure for cardiac arrhythmia (02/05/06) history of right knee cap fracture History of right knee surgery Status post laser lithotripsy of ureteral calculus Status post left foot surgery STENT PLACEMENT FOR KIDNEY STONE Social History household members: spouse housing: house Smoking Status: Never smoker how long ago did patient quit smokin second hand exposure: No alcohol intake: never substance use type: does not use caffeine: No what type of physical activity do you participate in: none seatbelt use: always do you feel safe at home: Yes ROS ROS ED Constitutional Constitutional ED: Denies chills or fever(s) Eyes Eyes: Denies change in vision or discharge from eye(s) ENT ENT ED: Denies discharge from eye(s), rhinorrhea or sore throat Cardiovascular Cardiovascular: Reports chest pain; Denies palpitations Respiratory/Chest Respiratory/Chest: Reports dyspnea; Denies cough Gastrointestinal Gastrointestinal: Denies abdominal pain, nausea or vomiting Genitourinary Genitourinary ED: Denies difficulty urinating or dysuria Musculoskeletal Musculoskeletal: Reports extremity pain; Denies back pain Integumentary Denies Abrasions or rash Neurologic Neurologic: Denies headache(s) or weakness Psychiatric Psychiatric: Denies anxiety or depression Allergic/Immunologic Allergic/Immunologic ED: Denies lip swelling or urticaria EXAM Physical Exam Const Vital Signs: 10/06/22 05:40 10/06/22 06:08 10/06/22 07:00 Temperature 97 F L Temperature Source Temporal Pulse Rate 64 61 62 Respiratory Rate 20 H 20 H 23 H Blood Pressure 205/76 H 180/60 H 196/66 H Blood Pressure Mean 119 100 109 Pulse Ox 95 91 94 Oxygen Delivery Method Room Air Room Air Room Air Positive well nourished and well developed General Appearance ED: well developed HEENT Reports normocephalic and head/scalp atraumatic Eyes PERRL and EOMs intact bilaterally Neck supple Chest Wall inspection of chest normal and palpation of chest normal Resp normal respiratory effort and clear to auscultation bilaterally Cardio regular rate and regular rhythm GI soft to palpation and non-tender Palpation: soft Extremity Extremity Narrative: 3+ bilateral lower extremity edema, symmetric. Neuro oriented x3 Neuro Narrative: No focal neurologic deficits. Sensorium / Orientation: alert Psych mental status grossly normal Skin no rashes or lesions noted Heart Score History: Slightly/Non-Suspicious ECG: Normal Age: >/= 65 years Risk Factors: >/= 3 Risk Factors or History of CAD Troponin: </= Normal Limit Score: 4 MDM MDM MDM Narrative Medical decision making narrative: Patient placed on potline monitor. EKG obtained to evaluate for cardiac dysrhythmia or ischemia. Chest x-ray obtained given his shortness of breath to evaluate for infiltrate or CHF. Lab work obtained to evaluate for leukocytosis, anemia, electrolyte derangement. Troponin and BNP obtained to evaluate for cardiac ischemia and CHF. Lab Data Attestation: I reviewed the patient's lab results. Labs: Laboratory Results - last 24 hr 10/06/22 10/06/22 10/06/22 06:10 06:10 06:10 WBC 6.2 RBC 3.51 L Hgb 10.6 L Hct 33.8 L MCV 96.3 H MCH 30.2 MCHC 31.4 L RDW Std Deviation 48.1 H RDW Coeff of Flavio 13.8 Plt Count 170 MPV 9.2 Immature Gran % (Auto) 0.500 Neut % (Auto) 64.2 Lymph % (Auto) 20.9 [place] % (Auto) 9.3 Eos % (Auto) 4.5 Baso % (Auto) 0.6 Absolute Neuts (auto) 4.0 Absolute Lymphs (auto) 1.30 Nucleated RBC % 0 Sodium 140 Potassium 4.7 Chloride 112 H Carbon Dioxide 24.0 Anion Gap 4 L BUN 38 H Creatinine 1.40 H Estim Creat Clear Calc 43.88 Est GFR (MDRD) Af Amer 62 Est GFR (MDRD) Non-Af 51 L BUN/Creatinine Ratio 27.1 H Glucose 154 H Calcium 8.9 Troponin I High Sens 18 B-Natriuretic Peptide 238.9 H Radiography Chest X-Ray - ED: 1 View, Read by Radiologist and CHF Diagnostic Testing: Clinical Impression(s) from Imaging Studies Chest X-Ray 10/06/22 06:00 IMPRESSION: Mild pulmonary edema. Electronically Signed: Jake Resendiz MD at 6:24 EST , EKG Initial EKG: Attestation: I personally reviewed and interpreted this EKG as follows: Interpretation: Atrial Fibrillation (Atrial fibrillation with a ventricular rate of 59 bpm. No acute ischemia.) Treatment and Re-Evaluation Narrative: While awaiting work-up, I was notified by nursing staff that the patient's heart rate was dropping down into the 20s. On several separate occasions heart rate dropped into the high 20s and low 30s. Monitor strips appear to show atrial fibrillation with slow ventricular response. Patient's blood pressure has remained elevated throughout his stay. He has not had any syncopal episodes recently. He does currently have a loop recorder given history of syncope and arrhythmias. CBC reveals normal white count. Hemoglobin is 10.6. Chemistry studies reveal a BUN of 38 and creatinine 1.40. This is near his baseline. His troponin is normal at 18. His BNP is 238. Portable chest x-ray per my interpretation appears to show CHF. Radiology interpretation is reviewed and agrees. Patient will be given a dose of Lasix IV. Given his episodes of bradycardia I recommended observation for further monitoring. It may be the patient's blood pressure medications need to be changed to prevent his bradycardic episodes. I will speak with the hospitalist. Discharge Plan Triage Chief Complaint: Chest Pain ED Provider: Zo Yin Dx/Rx/DC Orders Clinical Impression: Chest pain, Bradycardia, CHF (congestive heart failure) Prescriptions: No Action (DME) blood pressure monitor Kit See Rx Instructions .ROUTE .MEDSUPPLY Qty: 1 0RF Rx Instructions: check blood pressure daily (DME) lancets [OneTouch [employer] Lancets] 30 gauge misc See Rx Instructions .ROUTE .MEDSUPPLY Qty: 200 3RF Rx Instructions: check blood sugar tid for type 2 DM simvastatin 20 mg tablet 20 mg PO QHS Qty: 90 3RF pramipexole [Mirapex] 1 mg tablet 2 mg PO QHS Qty: 180 3RF furosemide 40 mg tablet 40 mg PO DAILY sertraline 25 mg tablet 25 mg PO DAILY (DME) compress.stocking,knee,reg,lrg Misc See Rx Instructions .MEDSUPPLY Qty: 2 1RF Rx Instructions: wear daily for venous insufficiency 20-30 mmHg hydralazine 50 mg tablet 50 mg PO BID Qty: 180 3RF acetaminophen [Tylenol] 325 mg Tablet 650 mg PO Q4H PRN PRN (Reason: Pain 1-10 Or Fever) Qty: 0 0RF ferrous sulfate 325 mg (65 mg iron) tablet 325 mg PO Q OTHER DAY Rx Instructions: only amoxicillin-pot clavulanate 875-125 mg tablet 1 tab PO BID 10 Days Qty: 20 0RF finasteride 5 mg tablet 5 mg PO DAILY Qty: 90 3RF ergocalciferol (vitamin D2) 1,250 mcg (50,000 unit) capsule 50,000 unit PO QMONTH Qty: 12 0RF (DME) pen needle, diabetic [BD Ultra-Fine Mini Pen Needle] 31 gauge x 3/16 needle See Rx Instructions .ROUTE .MEDSUPPLY Qty: 100 3RF Rx Instructions: daily for type 2 dm flecainide 100 mg tablet 100 mg PO Q12H Qty: 180 2RF Hold Instructions: bradycardia 07/09 progesterone micronized 100 mg capsule 100 mg PO QAM Qty: 90 1RF amlodipine 10 mg tablet 5 mg PO DAILY Qty: 90 3RF metoprolol succinate 25 mg tablet extended release 24 hr 12.5 mg PO DAILY olmesartan 40 mg tablet 20 mg PO BID Qty: 90 3RF famotidine 40 mg tablet 40 mg PO DAILY Qty: 90 3RF Mounjaro 5 mg/0.5 mL pen injector 5 mg subcut QWEEK Qty: 2 1RF (DME) blood sugar diagnostic Strip See Rx Instructions .ROUTE .MEDSUPPLY Qty: 100 3RF Rx Instructions: One Touch Elena test strip, use to test blood sugar 3 times daily. Dx E11.42 insulin glargine 100 unit/mL (3 mL) insulin pen 30 unit subcut QAM Qty: 15 1RF spironolactone 25 mg tablet 25 mg PO DAILY dulaglutide 4.5 mg/0.5 mL pen injector 4.5 mg SC .COMPLEX 90 Days Qty: 2 2RF Rx Instructions: 4.5 mg subcut every friday meclizine 25 mg tablet 25 mg PO TID PRN (Reason: dizziness) Qty: 20 0RF Primary Care Provider: Tosha Shrestha Referrals: Tosha Shrestha MD [Primary Care Provider] - Disposition Disposition: Acute Care Hospital [facility]
--- NOTE | 2022-10-06 06:00 | RAD_ITS ---
INDICATION: sob EXAMINATION/TECHNIQUE: X-RAY - XR Chest 1 View COMPARISON: None. FINDINGS: LINES/DEVICES: None. LUNGS: Increased interstitial markings are noted in the perihilar regions and lung bases suggesting mild pulmonary edema. MEDIASTINUM AND CARDIOVASCULAR STRUCTURES: Cardiac silhouette not enlarged. Central airways and mediastinal contour are unremarkable. BONES AND SOFT TISSUES: Unremarkable. RAD/Chest 1 View (Portable) IMPRESSION: Mild pulmonary edema. Electronically Signed: Jake Resendiz MD at 6:24 EST ,
[2022-10-06 06:18] LABS: Basophil# 0.04 X10^3/uL; Basophil% 0.6 % (0-1); Eosinophil# 0.28 X10^3/uL; Eosinophils% 4.5 % (0-5); Hematocrit 33.8 % (40-54); Hemoglobin 10.6 g/dL (13.0-16.5); Lymphocyte % 20.9 % (19-41); Mean Corp Hgb Conc 31.4 g/dL (32-36); Mean Corpuscular Hgb 30.2 pg (27.0-32.0); Mean Corpuscular Volume 96.3 fL (80-94); Mean Platelet Vol. 9.2 fl (6.2-12.0); Monocyte# 0.58 X10^3/uL; Monocyte% 9.3 % (0-10); NRBC Flagged by Analyzer 0 % (0-5); Neutrophil % 64.2 % (47-70); Platelet Count 170 K/mm3 (150-450); RBC Distribution Width CV 13.8 % (11.6-14.6); RBC Distribution Width SD 48.1 fl (35.1-43.9); Red Blood Count 3.51 M/mm3 (4.6-6.2); White Blood Count 6.2 K/mm3 (4.4-11.0)
[2022-10-06 06:36] LABS: Anion Gap 4 (5-15); BUN 38 mg/dL (7-18); BUN/Creat Ratio 27.1 RATIO (10-20); Calcium,Total 8.9 mg/dL (8.5-10.1); Chloride 112 mmol/L (98-107); EST Glomerular Filtration Rate 51 mL/min (>60); Est Glom Filt Rate - Afr Amer 62 mL/min (>60); Estimated Creatinine Clearance 43.88 ml/min; Glucose 154 mg/dL (74-106); Potassium 4.7 mmol/L (3.5-5.1); Sodium Level 140 mmol/L (136-145); Troponin-I HS (w/2H Reflex) 18 pg/mL (3.0-78.0)
[2022-10-06 07:01] LABS: BNP,B-Type NATRIURETIC PEPTIDE 238.9 pg/mL (0-100)
[2022-10-06] MEDS: Metoclopramide 10 MG/2 ML Vial 5 MG IV (07:07)
[2022-10-06 08:14] LABS: Reflex Troponin-HS? (from REC) Y
[2022-10-06 08:44] LABS: Troponin-I HS 19 pg/mL (3.0-78.0)
--- NOTE | 2022-10-06 09:35 | HP.PCM.HOS_ITS ---
HPI - General General Date of Admission: 10/06/22 Date of Service: 10/06/22 Chief Complaint: Shortness of breath, chest pain HPI Narrative MARY SAN, is a 82 M who presents to the emergency room at [facility] with a chief complaint of shortness of breath and chest pain which she described as pressure-like in nature in the precordial region. These events happen early this morning, patient states he was lying down and became short of breath and sat up in a chair when he sat up in a chair he had episode of chest discomfort. It did not radiate up into his neck or down his arms. He does not have chest pain at the time of my examination, he did not say how long the chest pain lasted. Patient has a history of dysrhythmias, he is on antiarrhythmics and he has a loop recorder. 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 Work-up in the ER included an EKG which showed a junctional rhythm at 59, there is no evidence of an injury pattern on the EKG, patient's chest x-ray showed evidence of congestive heart failure, patient's labs showed an elevated creatinine-patient has a history of chronic kidney disease-beta nitric peptide was elevated at 238, hemoglobin was 10.6 and glucose was 154. Patient had rhythm strips which showed the patient's rate to go down into the 20s and 30s, it is unknown whether the patient was symptomatic at that time. Patient will be admitted to PCU for congestive heart failure, patient's last echocardiogram showed a normal ejection fraction-this echocardiogram was done last June. I do not believe that it is necessary at this time to repeat the echocardiogram. I talked by phone with and made him aware that the patient was admitted to the hospital, I do not think a cardiology consult is needed at this time however and I explained this to the patient. I will hold the patient's flecainide and metoprolol at this time. [facility] Medical History (HFpEF) heart failure with preserved ejection fraction (12/12/20) Acute respiratory failure with hypoxia Anemia Anemia of chronic renal failure, stage 3 (moderate) Anxiety and depression Atherosclerotic heart disease of [place] coronary artery without angina pectoris Atrial flutter Atypical chest pain Back pain BMI 34.0-34.9,adult BPH (benign prostatic hyperplasia) BPPV (benign paroxysmal positional vertigo) Bradycardia Cardiac dysrhythmia Cardiology follow-up encounter CHF (congestive heart failure) De Quervain's tenosynovitis Debility Depression Dermatitis Diabetes mellitus Diabetic kidney disease Dizziness DM type 2 with diabetic peripheral neuropathy DVT (deep venous thrombosis) Dyslipidemia Dysphagia Essential (primary) hypertension Fall Flu vaccine need Fracture of great toe Gastric reflux Health care maintenance History of echocardiogram History of edema History of GI bleed History of peptic ulcer History of renal calculi History of ulceration HLD (hyperlipidemia) Injury of head and neck Iron deficiency anemia Iron deficiency anemia due to chronic blood loss Kidney hematoma (12/08/20) Left knee pain Left leg DVT Loss of equilibrium Low iron Malaise Near syncope Orthostatic hypotension MACHELLE (obstructive sleep apnea) Pain of left lower extremity Paroxysmal atrial fibrillation Paroxysmal atrial flutter Pneumonia Polypharmacy Prostate disease Psoriasis Recurrent syncope (06/19/22) Renal calculi RLS (restless legs syndrome) Sex disorder Suicidal ideation SVT (supraventricular tachycardia) TIA (transient ischemic attack) Urolithiasis Venous insufficiency of both lower extremities Vertigo Walker as ambulation aid Wears glasses Home Medications finasteride 5 mg tablet 5 mg PO DAILY PROSTATE #90 tabs 11/03/18 [Rx Last Taken 10/05/22] blood pressure monitor #1 ea 03/13/21 [Rx Last Taken Unknown] lancets 30 gauge (OneTouch Delica Lancets) #200 ea 10/26/21 [Rx Last Taken Unknown] pramipexole 1 mg tablet (Mirapex) 2 mg PO QHS RLS #180 tabs 12/10/21 [Rx Last Taken 10/05/22] pen needle, diabetic 31 gauge x 3/16 (BD Ultra-Fine Mini Pen Needle) #100 ea 01/23/22 [Rx Last Taken Unknown] flecainide 100 mg tablet 100 mg PO Q12H HEART RATE #180 tabs 04/01/22 [Rx Last Taken 10/05/22] sertraline 25 mg tablet 25 mg PO DAILY DEPRESSION 04/05/22 [History Last Taken 10/05/22] compress.stocking,knee,reg,lrg #2 ea 07/05/22 [Rx Last Taken Unknown] metoprolol succinate 25 mg tablet,extended release 24 hr 12.5 mg PO DAILY BP 07/16/22 [History Last Taken 10/05/22] ferrous sulfate 325 mg (65 mg iron) tablet 325 mg PO TH supplement 07/31/22 [History Last Taken 10/03/22] furosemide 40 mg tablet 40 mg PO DAILY FLUID 07/31/22 [History Last Taken 10/05/22] blood sugar diagnostic #100 ea 09/05/22 [Rx Last Taken Unknown] meclizine 25 mg tablet 25 mg PO TID PRN dizziness #20 tabs 10/01/22 [Rx Last Taken 10/05/22] acetaminophen 500 mg tablet 1,000 mg PO Q6H PRN Pain 10/06/22 [History Last Taken 10/06/22 03:00] amlodipine 10 mg tablet 5 mg PO DAILY BP 10/06/22 [History Last Taken 10/05/22] dulaglutide 4.5 mg/0.5 mL subcutaneous pen injector 4.5 mg subcut .COMPLEX DM 10/06/22 [History Last Taken 10/05/22] ergocalciferol (vitamin D2) 1,250 mcg (50,000 unit) capsule 50,000 unit PO QMONTH SUPPLEMENT 10/06/22 [History Last Taken 09/18/22] famotidine 40 mg tablet 40 mg PO DAILY GERD 10/06/22 [History Last Taken 10/05/22] hydralazine 50 mg tablet 50 mg PO BID BP 10/06/22 [History Last Taken 10/05/22] insulin glargine 100 unit/mL (3 mL) subcutaneous pen 30 unit subcut QAM DM 10/06/22 [History Last Taken 10/05/22] olmesartan 40 mg tablet 20 mg PO BID HEART 10/06/22 [History Last Taken 10/05/22] progesterone micronized 100 mg capsule 100 mg PO QAM HORMONE 10/06/22 [History Last Taken 10/05/22] simvastatin 20 mg tablet 20 mg PO QHS CHOLESTEROL 10/06/22 [History Last Taken 10/05/22] spironolactone 50 mg tablet 25 mg PO DAILY FLUID 10/06/22 [History Last Taken 10/05/22] tirzepatide 5 mg/0.5 mL subcutaneous pen injector (Mounjaro) 5 mg subcut QWEEK DM 10/06/22 [History Last Taken Unknown] Allergy/AdvReac Type Severity Reaction Status Date / Time hydrocodone bitartrate AdvReac Severe Other Verified 09/23/22 11:10 [From Vicodin] hydroxyzine AdvReac Severe Other Verified 09/23/22 11:10 Family History Father Diabetes Hypertension Cancer Lung cancer Mother Hypertension CVA (cerebral vascular accident) Sister Diabetes Son Diabetes Surgical History History of cardioversion (2015) History of cataract surgery History of left heart catheterization (02/16/13) History of lithotripsy (11/2020) History of loop recorder (06/26/22) History of radiofrequency ablation procedure for cardiac arrhythmia (02/05/06) history of right knee cap fracture History of right knee surgery Status post laser lithotripsy of ureteral calculus Status post left foot surgery STENT PLACEMENT FOR KIDNEY STONE Social History household members: spouse housing: house Smoking Status: Never smoker how long ago did patient quit smokin second hand exposure: No alcohol intake: never substance use type: does not use caffeine: No what type of physical activity do you participate in: none seatbelt use: always do you feel safe at home: Yes ROS Constitutional Constitutional: Denies anorexia, change in weight, chills, fatigue, fever(s), night sweats or weakness Eyes Eyes: Denies blurry vision, change in vision, discharge from eye(s) or eye pain ENT HEENT: Denies dysphagia or headache(s) Cardiovascular Cardiovascular: Reports chest pain and orthopnea; Denies claudication, edema or palpitations Respiratory/Chest Respiratory/Chest: Reports dyspnea, shortness of breath at rest and shortness of breath with exertion; Denies cough, excessive phlegm production, hemoptysis or productive cough Gastrointestinal Gastrointestinal: Denies abdominal pain, constipation, diarrhea, dyspepsia, hematemesis, hematochezia, melena, nausea or vomiting Genitourinary Genitourinary: Denies dysuria, hematuria, nocturia, urinary frequency, urinary hesitancy, urinary incontinence or urinary urgency Musculoskeletal Musculoskeletal: Denies back pain, joint pain, joint stiffness, joint swelling, myalgias or neck pain Neurologic Neurologic: Denies abnormal gait, abnormal speech, dizziness, focal weakness, headache(s), loss of vision, numbness, other visual disturbances, paresthesias, syncope or tingling Psychiatric Psychiatric: Denies anxiety, cognitive impairment, depression, irritability, mood swings or suicidal ideation Endocrine Endocrinology: Denies change in body appearance, cold intolerance, excessive sweating, heat intolerance, polydipsia or polyuria Hematologic/Lymphatic Hematologic/Lymphatic: Denies none, anemia, easy bleeding, easy bruising or lymphadenopathy Allergic/Immunologic Allergic/Immunologic: Denies rhinitis, urticaria, eczemia or asthma Vital Signs Vital Signs Vital Signs: 10/06/22 05:40 10/06/22 06:08 10/06/22 07:00 Temperature 97 F L Temperature Source Temporal Pulse Rate 64 61 62 Respiratory Rate 20 H 20 H 23 H Blood Pressure 205/76 H 180/60 H 196/66 H Blood Pressure Mean 119 100 109 Pulse Ox 95 91 94 Oxygen Delivery Method Room Air Room Air Room Air 10/06/22 08:11 10/06/22 08:00 Temperature 97.3 F L Temperature Source Temporal Pulse Rate 71 71 Respiratory Rate 22 H 22 H Blood Pressure 171/78 H 171/78 H Blood Pressure Mean 109 109 Pulse Ox 95 95 Oxygen Delivery Method Room Air Room Air Weight Weight: 134.4 kg Body Mass Index (BMI) 40.1 Physical Exam Const alert, oriented x3, no apparent distress, healthy appearing and well nourished Constitutional Narrative: Patient is morbidly obese General Appearance: cooperative, well kempt and well developed Orientation / Consciousness: awake, oriented to person, oriented to place and oriented to time HEENT normocephalic, head/scalp atraumatic, hearing grossly normal bilaterally and moist oral mucous membranes Eyes PERRL, EOMs intact bilaterally and conjunctivae normal Neck supple, no JVD, thyroid normal and no carotid bruits General: trachea midline Resp normal respiratory effort, no retractions and no use of accessory muscles Resp Narrative: Patient has inspiratory rales noted at the right lung base Auscultation: Negative for rales, rhonchi or wheezes Cardio regular rate, regular rhythm, S1 normal heart sound, S2 normal heart sound, no murmurs, no rub and no gallops GI normal to inspection, nondistended, normoactive bowel sounds, soft to palpation, non-tender and non-distended Extremity Extremity Narrative: Patient has severe +2 to +3 mm edema in the lower legs and feet Skin no rashes or lesions noted General Skin Exam: no breakdown Neuro oriented x3, CN's II-XII intact bilaterally, moves all extremities, no focal motor deficits and no sensory deficits noted Sensorium / Orientation: awake, alert, oriented to person, oriented to place and oriented to time Speech: speech normal Motor Exam: strength 5/5 throughout Psych affect normal Results Lab / Micro Data Result Diagrams: 10/06/22 06:10 10/06/22 06:10 Labs: Laboratory Results - last 24 hr 10/06/22 06:10: WBC 6.2, RBC 3.51 L, Hgb 10.6 L, Hct 33.8 L, MCV 96.3 H, MCH 30.2, MCHC 31.4 L, RDW Std Deviation 48.1 H, RDW Coeff of Flavio 13.8, Plt Count 170, MPV 9.2, Immature Gran % (Auto) 0.500, Neut % (Auto) 64.2, Lymph % (Auto) 20.9, [place] % (Auto) 9.3, Eos % (Auto) 4.5, Baso % (Auto) 0.6, Absolute Neuts (auto) 4.0, Absolute Lymphs (auto) 1.30, Nucleated RBC % 0 10/06/22 06:10: Sodium 140, Potassium 4.7, Chloride 112 H, Carbon Dioxide 24.0, Anion Gap 4 L, BUN 38 H, Creatinine 1.40 H, Estim Creat Clear Calc 43.88, Est GFR (MDRD) Af Amer 62, Est GFR (MDRD) Non-Af 51 L, BUN/Creatinine Ratio 27.1 H, Glucose 154 H, Calcium 8.9, Troponin I High Sens 18 10/06/22 06:10: B-Natriuretic Peptide 238.9 H 10/06/22 08:20: Troponin I High Sens 19 Radiology Impression Chest X-Ray 10/06/22 06:00 IMPRESSION: Mild pulmonary edema. Electronically Signed: Jake Resendiz MD at 6:24 EST Reading Location ID and State: [facility] / [place] Tel , Service support , Assessment & Plan Assessment/Plan (1) CHF (congestive heart failure): PLAN: Plan 1. Acute exacerbation of diastolic congestive heart failure-patient will be admitted to PCU, he will be placed on IV Lasix, he is on Aldactone, this will be continued. #2 chest pain-etiology unknown, cardiac enzymes will be cycled. Patient may need to undergo a stress test or a cardiac catheterization during this admission, he is unstable at this time due to CHF however and he will need to be evaluated in the morning for possible stress test or cardiac cath if he has diuresed and he is stable. This would not be arranged until Friday however in my opinion #3 obstructive sleep apnea-patient uses BiPAP, this will be continued. #4 chronic kidney disease stage IIIa secondary to type 2 diabetes-labs will need to be monitored, complicates care, medical course, recovery, and prognosis #5 type 2 diabetes-blood sugars will be monitored, patient will be on sliding scale insulin per fingerstick blood sugars. Home insulin will be continued #6 mild pulmonary hypertension-patient's last echocardiogram showed pressures of 45-again the patient will be diuresed #7 mitral valve disease-patient has mild to moderate mitral valve insufficiency, complicates care, medical course, recovery, and prognosis #8 morbid obesity-complicates care, medical course, recovery, and prognosis #9 periods of bradycardia-most probably secondary to rate limiting agents and/or flecainide, if this does not correct with holding these medications, he will need to be seen by cardiology, patient has a loop recorder in #10 paroxysmal atrial flutter-patient is not anticoagulated per cardiology #11 essential hypertension-patient will remain on amlodipine and his ARB Total clinical time spent by myself addressing the patient's medical issues, reviewing all the data, and collaborating with the patient's care team: 75 minutes Charges/Coding Visit Charges Inpatient E&M: 72747 Init Hosp L3
[2022-10-06] MEDS: Furosemide 40 MG/4 ML Vial IV ×2 (11:53→22:02)
[2022-10-06] MEDS: Spironolactone 25 MG Tablet PO (11:54)
[2022-10-06] MEDS: Finasteride 5 MG Tablet PO (11:55)
[2022-10-06] MEDS: hydrALAZINE 50 MG Tablet PO ×2 (11:56→21:55)
[2022-10-06] MEDS: Heparin Injection (Vial) 5,000 UNIT/ML VIAL 5000 UNIT SC ×2 (11:57→22:02)
[2022-10-06] MEDS: Insulin Glargine-YFGN 100 UNIT/ML Pen 30 UNIT SC (11:58)
[2022-10-06 12:30] LABS: Bedside Glucose 129 mg/dL (74-106)
[2022-10-06 17:04] LABS: Troponin-I HS 48 pg/mL (3.0-78.0)
[2022-10-06 17:06] LABS: Bedside Glucose 111 mg/dL (74-106)
[2022-10-06] MEDS: Pramipexole Di-HCl 1 MG Tablet 2 MG PO (21:55)
[2022-10-06] MEDS: Losartan Potassium 50 MG Tablet PO (21:55)
[2022-10-06] MEDS: Atorvastatin Calcium 10 MG Tablet PO (21:56)
[2022-10-06 22:15] LABS: Bedside Glucose 103 mg/dL (74-106)
[2022-10-07] VITALS (15 sets, daily range): BP systolic 130–164; BP diastolic 50–107; PULSE 55–72; RESP 12–22; TEMP 36.3–36.6; O2SAT 95–100
--- NOTE | 2022-10-07 04:05 | EKG12_ITS ---
Test Reason : EKGCHANGES Blood Pressure : / mmHG Vent. Rate : 053 BPM Atrial Rate : 059 BPM P-R Int : 240 ms QRS Dur : 092 ms QT Int : 488 ms P-R-T Axes : 088 065 064 degrees QTc Int : 457 ms Sinus bradycardia with 2nd degree A-V block (Mobitz II) Abnormal ECG When compared with ECG of 06-OCT-2022 05:44, MANUAL COMPARISON REQUIRED, DATA IS UNCONFIRMED Confirmed by JORDIN DUNCAN, SYBIL ([id number]), state editor NITZA ROJAS ([id number]) on 10/08/2022 11:17:21 AM Referred By: JAJA Confirmed By:SYBIL BRENNER MD
[2022-10-07 04:41] LABS: Anion Gap 6 (5-15); BUN 39 mg/dL (7-18); BUN/Creat Ratio 26.2 RATIO (10-20); Chloride 109 mmol/L (98-107); Creatinine, Serum 1.49 mg/dL (0.70-1.30); EST Glomerular Filtration Rate 48 mL/min (>60); Est Glom Filt Rate - Afr Amer 58 mL/min (>60); Estimated Creatinine Clearance 41.23 ml/min; Glucose 120 mg/dL (74-106); Potassium 4.4 mmol/L (3.5-5.1); Sodium Level 141 mmol/L (136-145)
[2022-10-07 05:05] LABS: Phosphorus 3.6 mg/dL (2.5-4.9)
[2022-10-07] MEDS: 0.9% Saline Lock 10 ML Syringe IV (06:38)
[2022-10-07] MEDS: Furosemide 40 MG/4 ML Vial IV ×3 (06:38→20:54)
[2022-10-07 07:05] LABS: Bedside Glucose 117 mg/dL (74-106)
--- NOTE | 2022-10-07 07:13 | CON.PCM.CA_ITS ---
Assessment & Plan Assessment/Plan (1) Chest pain: PLAN: He does present with some chest discomfort which appears to be somewhat atypical. However he has had numerous visits to the office as well as to the emergency room that it may be prudent to definitively exclude coronary artery disease. Risk benefits alternatives have been explained to him he understands and agrees to proceed. Addendum: Cardiac catheterization demonstrated no obstructive coronary disease present. (2) Essential (primary) hypertension: PLAN: He does have a history of hypertension his blood pressure does not appear to be very well controlled. We will make some changes to his regimen. He had been put on spironolactone but it does not appear that he was very compliant with this regimen. (3) (HFpEF) heart failure with preserved ejection fraction: PLAN: He does have evidence of heart failure with preserved ejection fraction. This will be reevaluated at this visit. (4) Paroxysmal atrial fibrillation: PLAN: He has a history of paroxysmal atrial fibrillation. He had been on flec ainide for maintenance of sinus rhythm. He also remember that he had had an ablation remotely. He has not had any recurrence of the above. His most recent EKG does demonstrate sinus rhythm with Mobitz type I physiology. (5) Bradycardia: PLAN: He has had episodes of bradycardia and some pauses. He had an implantable loop recorder with some pauses which do not appear to correlate with his symptoms. However he seems to be fatigued enough that this may be related to symptomatic bradycardia. He may eventually need a permanent pacemaker implantation. Further recommendations will depend on the results of the above test. We will likely consider this for a.m. HPI Consult Data Date of Consult: 10/07/22 HPI Narrative HPI Narrative: MARY SAN, is a 82 M who presents to the emergency room for the second time in 2 days with shortness of breath and just not feeling well.? He is a gentleman with a history of minimal coronary artery disease status post cardiac catheterization in 2012, supraventricular tachyarrhythmia status post ablation for narrow complex tachycardia, and a history of atrial fibrillation status post cardioversion in 2012.? He also has a history of MACHELLE with BiPAP therapy.? He has had numerous complaints of dizziness as well as shortness of breath and as part of his work-up he had a CT and MRI in 2017 both of which were normal and a pharmacologic stress test in March 2019 which was also normal.? His echo test in 2017 demonstrated an ejection fraction of 65% with no wall motion abnormalities as well as an echocardiogram in June 2022 demonstrating an ejection fraction of 65%, stage II diastolic dysfunction, moderate left atrial enlargement and mild aortic regurgitation. He was noted to have some bradycardia arrhythmias but it was not clear whether this was related to his symptoms and he went on to have an implantable loop recorder placed. He has had heart rates down to the high 20s when he is sleeping. He was also recently admitted with marked hypertension and had his blood pressure medications changed around. His BT CA[employer] ASSOCIATE was noted to be mildly elevated and he was placed on a d iuretic. During this most recent admission he has noted significant pedal edema and shortness of breath. He was also noted to have bradycardia with evidence of Wenckebach periodicity. He did have some junctional rhythm noted. [facility] Medical History (HFpEF) heart failure with preserved ejection fraction (12/12/20) Acute respiratory failure with hypoxia Anemia Anemia of chronic renal failure, stage 3 (moderate) Anxiety and depression Atherosclerotic heart disease of [place] coronary artery without angina pectoris Atrial flutter Atypical chest pain Back pain BMI 34.0-34.9,adult BPH (benign prostatic hyperplasia) BPPV (benign paroxysmal positional vertigo) Bradycardia Cardiac dysrhythmia Cardiology follow-up encounter CHF (congestive heart failure) De Quervain's tenosynovitis Debility Depression Dermatitis Diabetes mellitus Diabetic kidney disease Dizziness DM type 2 with diabetic peripheral neuropathy DVT (deep venous thrombosis) Dyslipidemia Dysphagia Essential (primary) hypertension Fall Flu vaccine need Fracture of great toe Gastric reflux Health care maintenance History of echocardiogram History of edema History of GI bleed History of peptic ulcer History of renal calculi History of ulceration HLD (hyperlipidemia) Injury of head and neck Iron deficiency anemia Iron deficiency anemia due to chronic blood loss Kidney hematoma (12/08/20) Left knee pain Left leg DVT Loss of equilibrium Low iron Malaise Near syncope Orthostatic hypotension MACHELLE (obstructive sleep apnea) Pain of left lower extremity Paroxysmal atrial fibrillation Paroxysmal atrial flutter Pneumonia Polypharmacy Prostate disease Psoriasis Recurrent syncope (06/19/22) Renal calculi RLS (restless legs syndrome) Sex disorder Suicidal ideation SVT (supraventricular tachycardia) TIA (transient ischemic attack) Urolithiasis Venous insufficiency of both lower extremities Vertigo Walker as ambulation aid Wears glasses Home Medications finasteride 5 mg tablet 5 mg PO DAILY PROSTATE #90 tabs 11/03/18 [Rx Last Taken 10/05/22] blood pressure monitor #1 ea 03/13/21 [Rx Last Taken Unknown] lancets 30 gauge (Plus[employer] Youth Lancets) #200 ea 10/26/21 [Rx Last Taken Unknown] pramipexole 1 mg tablet (Mirapex) 2 mg PO QHS RLS #180 tabs 12/10/21 [Rx Last Taken 10/05/22] pen needle, diabetic 31 gauge x 3/16 (BD Ultra-Fine Mini Pen Needle) #100 ea 01/23/22 [Rx Last Taken Unknown] flecainide 100 mg tablet 100 mg PO Q12H HEART RATE #180 tabs 04/01/22 [Rx Last Taken 10/05/22] sertraline 25 mg tablet 25 mg PO DAILY DEPRESSION 04/05/22 [History Last Taken 10/05/22] compress.stocking,knee,reg,lrg #2 ea 07/05/22 [Rx Last Taken Unknown] metoprolol succinate 25 mg tablet,extended release 24 hr 12.5 mg PO DAILY BP 07/16/22 [History Last Taken 10/05/22] ferrous sulfate 325 mg (65 mg iron) tablet 325 mg PO TH supplement 07/31/22 [History Last Taken 10/03/22] furosemide 40 mg tablet 40 mg PO DAILY FLUID 07/31/22 [History Last Taken 10/05/22] blood sugar diagnostic #100 ea 09/05/22 [Rx Last Taken Unknown] meclizine 25 mg tablet 25 mg PO TID PRN dizziness #20 tabs 10/01/22 [Rx Last Taken 10/05/22] acetaminophen 500 mg tablet 1,000 mg PO Q6H PRN Pain 10/06/22 [History Last Taken 10/06/22 03:00] amlodipine 10 mg tablet 5 mg PO DAILY BP 10/06/22 [History Last Taken 10/05/22] dulaglutide 4.5 mg/0.5 mL subcutaneous pen injector 4.5 mg subcut .COMPLEX DM 10/06/22 [History Last Taken 10/05/22] ergocalciferol (vitamin D2) 1,250 mcg (50,000 unit) capsule 50,000 unit PO QMONTH SUPPLEMENT 10/06/22 [History Last Taken 09/18/22] famotidine 40 mg tablet 40 mg PO DAILY GERD 10/06/22 [History Last Taken 10/05/22] hydralazine 50 mg tablet 50 mg PO BID BP 10/06/22 [History Last Taken 10/05/22] insulin glargine 100 unit/mL (3 mL) subcutaneous pen 30 unit subcut QAM DM 10/06/22 [History Last Taken 10/05/22] olmesartan 40 mg tablet 20 mg PO BID HEART 10/06/22 [History Last Taken 10/05/22] progesterone micronized 100 mg capsule 100 mg PO QAM HORMONE 10/06/22 [History Last Taken 10/05/22] simvastatin 20 mg tablet 20 mg PO QHS CHOLESTEROL 10/06/22 [History Last Taken 10/05/22] spironolactone 50 mg tablet 25 mg PO DAILY FLUID 10/06/22 [History Last Taken 10/05/22] tirzepatide 5 mg/0.5 mL subcutaneous pen injector (Mounjaro) 5 mg subcut QWEEK DM 10/06/22 [History Last Taken Unknown] Allergy/AdvReac Type Severity Reaction Status Date / Time hydrocodone bitartrate AdvReac Severe Other Verified 09/23/22 11:10 [From Vicodin] hydroxyzine AdvReac Severe Other Verified 09/23/22 11:10 Family History Father Diabetes Hypertension Cancer Lung cancer Mother Hypertension CVA (cerebral vascular accident) Sister Diabetes Son Diabetes Surgical History History of cardioversion (2015) History of cataract surgery History of left heart catheterization (02/16/13) History of lithotripsy (11/2020) History of loop recorder (06/26/22) History of radiofrequency ablation procedure for cardiac arrhythmia (02/05/06) history of right knee cap fracture History of right knee surgery Status post laser lithotripsy of ureteral calculus Status post left foot surgery STENT PLACEMENT FOR KIDNEY STONE Social History household members: spouse housing: house Smoking Status: Never smoker how long ago did patient quit smokin second hand exposure: No alcohol intake: never substance use type: does not use caffeine: No what type of physical activity do you participate in: none seatbelt use: always do you feel safe at home: Yes ROS Constitutional Constitutional: Denies fever(s) or weight loss Eyes Eyes: Reports systems reviewed and no addt'l complaints, except as documented ENT HEENT: Reports systems reviewed and no addt'l complaints, except as documented Cardiovascular Cardiovascular: Reports dyspnea at rest, dyspnea on exertion and edema; Denies chest pain at rest, chest pain with activity, palpitations or paroxysmal nocturnal dyspnea Respiratory/Chest Respiratory/Chest: Reports dyspnea on exertion, shortness of breath at rest and shortness of breath with exertion; Denies productive cough Gastrointestinal Gastrointestinal: Denies change in bowel habits, nausea, vomiting or weight changes Genitourinary Genitourinary: Denies difficulty urinating Musculoskeletal Musculoskeletal: Denies joint stiffness or muscle weakness Integumentary Integumentary: Denies lesions Neurologic Neurologic: Denies dizziness or syncope Psychiatric Psychiatric: Denies anxiety Endocrine Endocrinology: Denies excessive sweating or fatigue Hematologic/Lymphatic Hematologic/Lymphatic: Denies anemia Allergic/Immunologic Allergic/Immunologic: Denies seasonal rhinorrhea Physical Exam Const alert, oriented x3 and no apparent distress General Appearance: cooperative HEENT hearing grossly normal bilaterally Head and Scalp: atraumatic Eyes EOMs intact bilaterally Neck General: normal visual inspection Chest inspection of chest normal and palpation of chest normal Resp normal respiratory effort Auscultation: clear to auscultation bilaterally Cardio regular rate, regular rhythm, S1 normal heart sound and S2 normal heart sound Jugular Venous Distention: JVD GI normal to inspection, nondistended, normoactive bowel sounds Extremity normal capillary refill General Extremity: edema Peripheral Pulses: Yes pulses 2+ throughout and femoral pulses present Skin no rashes or lesions noted Neuro oriented x3 and CN's II-XII intact bilaterally Psych Appearance: grossly normal and appropriate Risk Stratification Risk Stratification Applicable: No Objective Data Vital Signs: Vital Signs Temp Pulse Resp BP Pulse Ox O2 Del Method O2 Flow Rate 97.4 F L 64 22 H 151/50 H 96 Nasal Cannula 2 10/07/22 03:00 10/07/22 03:00 10/07/22 03:00 10/07/22 03:00 10/07/22 03:00 10/07/22 04:00 10/07/22 04:00 Oxygen Flow Rate (L/min) 2 Oxygen Delivery Method Nasal Cannula Weight: 294 lb 8.601 oz Body Mass Index (BMI) 39.9 Intake & Output: Intake and Output for Last 24 Hours 10/05/22 10/06/22 10/07/22 23:59 23:59 23:59 Intake Total 1100 / 1100 Output Total 2050 / 3550 2200 / 2200 Balance -950 / -2450 -2200 / -2200 Lab / Micro Data Result Diagrams: 10/06/22 06:10 10/07/22 04:13 Labs: Laboratory Results - last 24 hr 10/06/22 08:20: Troponin I High Sens 19 10/06/22 11:50: POC Glucose 129 H 10/06/22 16:28: POC Glucose 111 H 10/06/22 16:30: Troponin I High Sens 48 10/06/22 21:53: POC Glucose 103 10/07/22 04:13: Sodium 141, Potassium 4.4, Chloride 109 H, Carbon Dioxide 26.0, Anion Gap 6, BUN 39 H, Creatinine 1.49 H, Estim Creat Clear Calc 41.23, Est GFR (MDRD) Af Amer 58 L, Est GFR (MDRD) Non-Af 48 L, BUN/Creatinine Ratio 26.2 H, Glucose 120 H, Calcium 9.0 10/07/22 04:13: Phosphorus 3.6, Magnesium 2.0 10/07/22 06:35: POC Glucose 117 H Rhythm Strip Rhythm Strip: Wenckebach periodicity noted Cardiology Labs/Tests 10/07/22 04:13: Sodium 141, Potassium 4.4, Chloride 109 H, Carbon Dioxide 26.0, Anion Gap 6, BUN 39 H, Creatinine 1.49 H, Est GFR (MDRD) Af Amer 58 L, Est GFR (MDRD) Non-Af 48 L, BUN/Creatinine Ratio 26.2 H, Glucose 120 H, Calcium 9.0 10/07/22 04:13: Phosphorus 3.6, Magnesium 2.0 Rhythm: EKG: ECHO: Stress Test: Cardiac Cath: PCI: CT Surgery: Holter monitor: EPS: PPM: CXR: Chest CT Scan:
--- NOTE | 2022-10-07 09:00 | CL.D_ITS ---
Patient Name: MAYR SAN Study Date: 10/07/2022 Performing: Sajan Rogers MD Ht: 72 inches 182.88 cm : 1940 Wt: 294.9 lbs 133.6 kg Age: 82 Gender: male BSA: 2.51 PROCEDURE(S) PERFORMED DC02-([id number])[facility] CLINICAL PROFILE AND INDICATIONS Indications: Suspected CAD Heart Failure: NYHA Class: 2, Newly Diagnosed: Yes, Heart Failure Type: Diastolic Stress/Imaging Stress/Image Study Performed: No CAD Presentations: Symptom unlikely to be ischemic. CONCLUSIONS Non obstructive coronary arteries Bradycardia arrhythmias RECOMMENDATIONS Medical therapy Consider pacemaker implantation. DESCRIPTION OF PROCEDURE The patient arrived to the procedure lab. The risks and benefits of the procedure as well as a full description of our services here and current unavailability of surgical backup were fully explained to the patient and/or their significant other prior to the catheterization. The Timeout was completed, verifying the correct patient and procedure. The patient's procedural site was prepped and draped in the usual fashion. Local anesthetic was given subcutaneously to right radial region with Lidocaine 2%. Using a modified Seldinger technique, arterial access was obtained via the right radial artery, a 6Fr sheath was inserted. Right Coronary Artery selective angiography was then performed in multiple views using a 5 Fr. 4.0 Byron catheter. Left Coronary Artery selective angiography was performed in multiple views using a 5 Fr. 4.0 Byron catheter.The arterial sheath was pulled and a TR Band was applied for hemostasis CORONARY ANGIOGRAPHY DOMINANCE: Right Dominant LEFT HEART ASSESSMENT Left Ventricular Ejection Fraction: by Echo 55 % Normal LV wall motion Normal Left Ventricular systolic function LEFT MAIN: Mild luminal irregularities LEFT ANTERIOR DESCENDING ARTERY: Mild luminal irregularities less than 30% CIRCUMFLEX ARTERY: Mild luminal irregularities RIGHT CORONARY ARTERY: Mild luminal irregularities COMPLICATIONS No Complications PROCEDURE MEDICATIONS Fentanyl 50 mcg IV Versed 1 mg IV Oxygen: 2 L/min via nasal cannula Baby Aspirin (81mg) 1 Tabs PO @ 10/07/2022 08:18:41 Heparin given IA 10/07/2022 08:29:13 Verapamil 2.5mg, Ntg 100mcgs, 3000 units of Heparin given IA 10/07/2022 08:29:13 SUMMARY OF HEMODYNAMIC DATA Time AIR REST ECG 08:22:35 AO 148/48 (85) SA 08:34:55 08:57:27 Signed By Sajan Rogers MD On 10/07/2022 09:00:07 Sajan Rogers MD
[2022-10-07] MEDS: 0.9% Normal Saline 1,000 ML 15 ML IV (09:07)
[2022-10-07] MEDS: Finasteride 5 MG Tablet PO (09:21)
[2022-10-07] MEDS: Losartan Potassium 50 MG Tablet PO ×2 (09:21→20:53)
[2022-10-07] MEDS: hydrALAZINE 50 MG Tablet PO ×2 (09:22→20:52)
[2022-10-07] MEDS: Sertraline 50 MG Tablet 25 MG PO (09:27)
[2022-10-07] MEDS: amLODIPine 10 MG Tablet PO (09:35)
[2022-10-07] MEDS: Famotidine 20 MG Tablet 40 MG PO (09:36)
--- NOTE | 2022-10-07 11:38 | CASEMGMT ---
RN?CM?PERFORMANCE MAKEUP ARTIST?CM?to room to meet with patient for initial transition planning/care coordination?assessment.?RN?CM?introduced self and role at [facility].? Pt voices understanding and consents to?assessment?at this time.? Pt resting in bed in no distress at this time.? and dtr, Na, @ bedside. Pt is A/O at this time and answers all questions appropriately.?? Care providers, pharmacy, and demographics verified/updated at this time. PCP: Dr Shrestha Specialists: Therese Rehman-LABORER RAGS/Dr Quiroz/Dr Tanner-pulboris, Dr Potter-onc, Dr Field-neph, Dr Kahn-rheum. Pt also has an upcoming appt in October w/Dr Torres for 2nd opinion Preferred [facility]acy: [facility] Insurance: Patsy LEAL Prescription Benefit:?Yes Living Will/HPOA:?Has both LW and HCPOA, which is his , Coby LNOK: , Cboy. Dtr, Na. Son, Arnel Living Arrangements: Lives w/his in condo w/basement w/2 steps to enter. Pt states does not have to go to the basement. Pt is indep w/ADL's and manages his own medications. and pt share home mgmt tasks. Transportation:? does most of the driving. Pt states he does drive on occasion, when he feels up to it. DME: States has the following DME:?built-in shower seat, walker, rollator, lift chair, rails/grab bars, BIPAP from [employer], pulse ox, functioning glucometer w/supplies. Pt states he checks his BS's every AM. Pt is interested in info on medical alert button. Same provided at this time. Pt states no need for further DME at this time.? HHC/SNF: Hx going to [facility] and [facility]. Pt states he has also had HHC in the past a couple yrs ago. He does not remember name of the agecny. He states he did not have a good experience with them and does not want to do HHC again. He states he is having a lot of leg weakness and is aware PT/OT evals are pending. He states, if SNF is recommended, he would be willing to go to one and states 1st choice is [facility]. If he is able to return home, he does not want HHC, he would prefer to do OP therapy @ [facility]. Pt did voice concern re: transportation since his gets OP HD and they only have one vehicle. Pt made aware of [facility] van transportation to [facility]. He voices appreciation. CM?to follow for further discharge planning/needs.? Pt and family voice no further concerns/needs at this time.? Advised them to ask for?CM?if any further questions/concerns/needs arise.? Voices understanding. PLAN:??TBD. SNF vs home w/OP therapy. PT/OT evals pending. Allie BSN?RN?CM
[2022-10-07] MEDS: Spironolactone 50 MG Tablet PO (11:43)
[2022-10-07] MEDS: PROGESTERONE, MICRONIZED 100 MG CAPSULE PO (11:43)
[2022-10-07] MEDS: Insulin Glargine-YFGN 100 UNIT/ML Pen 30 UNIT SC (11:47)
--- NOTE | 2022-10-07 11:48 | PN.HOSP_ITS ---
Reason for Visit Reason for Visit: Diagnoses Essential (primary) hypertension (10/06/22) Paroxysmal atrial fibrillation (10/06/22) Unspecified diastolic (congestive) heart failure (10/06/22) Heart failure, unspecified (10/06/22) Bradycardia, unspecified (10/06/22) Chest pain, unspecified (10/06/22) Subjective Subjective Patient seen and examined. and daughter were by her bedside. He had no active complaints and had an uneventful night. Review of systems is otherwise negative. He had cardiac cath today which was normal. He is for pacemaker insertion likely tomorrow. Objective Data Objective Data Vital Signs: Vital Signs Temp Pulse Resp BP Pulse Ox O2 Del Method O2 Flow Rate 97.6 F L 68 17 153/107 H 95 Room Air 2 10/07/22 09:09 10/07/22 10:30 10/07/22 10:30 10/07/22 10:30 10/07/22 10:30 10/07/22 10:30 10/07/22 09:09 Oxygen Flow Rate (L/min) 2 Oxygen Delivery Method Room Air Weight: 294 lb 8.601 oz Body Mass Index (BMI) 39.9 Intake & Output: Intake and Output for Last 24 Hours 10/05/22 10/06/22 10/07/22 23:59 23:59 23:59 Intake Total 1100 / 1100 Output Total 2050 / 3550 2200 / 2200 Balance -950 / -2450 -2200 / -2200 Lab / Micro Data Result Diagrams: 10/06/22 06:10 10/07/22 04:13 Labs: Laboratory Results - last 24 hr 10/06/22 11:50: POC Glucose 129 H 10/06/22 16:28: POC Glucose 111 H 10/06/22 16:30: Troponin I High Sens 48 10/06/22 21:53: POC Glucose 103 10/07/22 04:13: Sodium 141, Potassium 4.4, Chloride 109 H, Carbon Dioxide 26.0, Anion Gap 6, BUN 39 H, Creatinine 1.49 H, Estim Creat Clear Calc 41.23, Est GFR (MDRD) Af Amer 58 L, Est GFR (MDRD) Non-Af 48 L, BUN/Creatinine Ratio 26.2 H, Glucose 120 H, Calcium 9.0 10/07/22 04:13: Phosphorus 3.6, Magnesium 2.0 10/07/22 06:35: POC Glucose 117 H Rhythm Strip Rhythm Strip: Wenckebach periodicity noted Physical Exam Const alert, oriented x3 and no apparent distress HEENT head/scalp atraumatic, moist oral mucous membranes and oropharynx normal Head and Scalp: normocephalic Mouth: oral and palatal mucosa normal Eyes PERRL, EOMs intact bilaterally and conjunctivae normal Neck no lymphadenopathy and supple Resp normal respiratory effort, no retractions, no use of accessory muscles and clear to auscultation bilaterally Cardio regular rate, regular rhythm, S1 normal heart sound, S2 normal heart sound and no murmurs GI normal to inspection, nondistended, normoactive bowel sounds, soft to palpation, non-tender and non-distended Extremity normal to inspection, full ROM and no clubbing, cyanosis or edema Neuro oriented x3, CN's II-XII intact bilaterally, moves all extremities and no focal motor deficits Sensorium / Orientation: awake and alert Motor Exam: strength 5/5 throughout Psych affect normal Assessment & Plan Assessment/Plan (1) Bradycardia: (2) Chest pain: PLAN: Plan #Chest pain * troponins x 3 were negative * he had cardiac cath today which showed clean coronaries * chest pain has resolvd. * Heart failure exacerbation may also have been contributing. * SL nitroglycerin prn * #Bradycardia * has improved today * cardiac cath negative as above. * for pacemaker insertion tomorrow * cardiology on board * #Acute exacerbation of HFpEF * being diuresed with IV lasix * monitor intake and output. * fluid restriction to 1500cc daily. 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 Will trend Cr. Cr around baseline today #MACHELLE: on CPAP qhs #TYpe 2 diabetes mellitus: * on ISS. on lantus 30 units daily. * Accuchecks ACHS. * On dulaglutide which is on hold as patient was n.p.o. * also on tirzepatide weekly. #Hyperlipidemia: High intensity statin #Paroxysmal A-fib: * Beta-simona on hold on account of bradycardia. * On flecainide. * Not anticoagulated * #BPH: on finasteride DVT prophylaxis: heparin. Charges/Coding Visit Charges Inpatient E&M: 48456 Subs Hosp L2
[2022-10-07] MEDS: Insulin Lispro 100 UNIT/ML INSULN.PEN SC ×2 (11:51→20:54)
[2022-10-07 12:05] LABS: Bedside Glucose 189 mg/dL (74-106)
[2022-10-07 17:36] LABS: Bedside Glucose 133 mg/dL (74-106)
[2022-10-07] MEDS: Heparin Injection (Vial) 5,000 UNIT/ML VIAL 5000 UNIT SC (20:53)
[2022-10-07] MEDS: Pramipexole Di-HCl 1 MG Tablet 2 MG PO (20:55)
[2022-10-07] MEDS: Atorvastatin Calcium 10 MG Tablet PO (20:55)
[2022-10-07 21:26] LABS: Bedside Glucose 156 mg/dL (74-106)
[2022-10-08 02:00] VITALS: BP 149/58; PULSE 67; RESP 20; TEMP 36.6; O2SAT 96
[2022-10-08 04:33] LABS: Absolute Lymphocyte Count 1.35 X10^3/uL (0.83-4.51); Absolute Neutrophil Count 4.5 X10^3/uL (2.0-7.7); Basophil# 0.05 X10^3/uL; Basophil% 0.7 % (0-1); Eosinophil# 0.25 X10^3/uL; Eosinophils% 3.6 % (0-5); Hematocrit 33.1 % (40-54); Hemoglobin 10.5 g/dL (13.0-16.5); Lymphocyte # 1.35 X10^3/ul (0.83-4.51); Lymphocyte % 19.3 % (19-41); Mean Corp Hgb Conc 31.7 g/dL (32-36); Mean Corpuscular Hgb 30.2 pg (27.0-32.0); Mean Corpuscular Volume 95.1 fL (80-94); Mean Platelet Vol. 9.9 fl (6.2-12.0); Monocyte# 0.85 X10^3/uL; Monocyte% 12.2 % (0-10); NRBC Flagged by Analyzer 0 % (0-5); Neutrophil # 4.46 X10^3/uL (2.7-7.7); Neutrophil % 63.8 % (47-70); Platelet Count 186 K/mm3 (150-450); RBC Distribution Width CV 13.7 % (11.6-14.6); RBC Distribution Width SD 47.5 fl (35.1-43.9); Red Blood Count 3.48 M/mm3 (4.6-6.2)
[2022-10-08 04:44] VITALS: BMI 38.0
[2022-10-08 04:49] LABS: Anion Gap 7 (5-15); BUN 48 mg/dL (7-18); BUN/Creat Ratio 25.9 RATIO (10-20); Calcium,Total 8.8 mg/dL (8.5-10.1); Chloride 105 mmol/L (98-107); Creatinine, Serum 1.85 mg/dL (0.70-1.30); EST Glomerular Filtration Rate 37 mL/min (>60); Est Glom Filt Rate - Afr Amer 45 mL/min (>60); Estimated Creatinine Clearance 33.21 ml/min; Glucose 152 mg/dL (74-106); Potassium 4.3 mmol/L (3.5-5.1); Sodium Level 139 mmol/L (136-145)
[2022-10-08] MEDS: Furosemide 40 MG/4 ML Vial IV (07:07)
[2022-10-08 07:30] LABS: Bedside Glucose 143 mg/dL (74-106)
[2022-10-08 07:40] VITALS: O2SAT 94
[2022-10-08 09:42] VITALS: BP 142/59; PULSE 74; RESP 18; TEMP 36.7; O2SAT 97
[2022-10-08 09:46] VITALS: BP 142/59; PULSE 74
[2022-10-08] MEDS: Losartan Potassium 50 MG Tablet PO (09:46)
[2022-10-08] MEDS: PROGESTERONE, MICRONIZED 100 MG CAPSULE PO (09:46)
[2022-10-08] MEDS: hydrALAZINE 50 MG Tablet PO (09:46)
[2022-10-08] MEDS: Finasteride 5 MG Tablet PO (09:46)
[2022-10-08] MEDS: Famotidine 20 MG Tablet 40 MG PO (09:46)
[2022-10-08] MEDS: Sertraline 50 MG Tablet 25 MG PO (09:46)
[2022-10-08] MEDS: Heparin Injection (Vial) 5,000 UNIT/ML VIAL 5000 UNIT SC (09:46)
[2022-10-08] MEDS: amLODIPine 10 MG Tablet PO (09:46)
[2022-10-08] MEDS: Spironolactone 50 MG Tablet PO (09:47)
--- NOTE | 2022-10-08 10:15 | DS.PCM_ITS ---
Providers Date of Admission: 10/06/22 Date of Discharge: 10/08/22 Primary Care Physician: Dr. Tosha Shrestha MD Reason For Visit: BRADYCARDIA, CHF Diagnosis Discharge Diagnosis (1) Bradycardia: Status: Acute Code(s): R00.1 - Bradycardia, unspecified (2) Chest pain: Status: Acute Code(s): R07.9 - Chest pain, unspecified Plan #Chest pain * troponins x 3 were negative * he had cardiac cath today which showed clean coronaries * chest pain has resolvd. * Heart failure exacerbation may also have been contributing. * SL nitroglycerin prn * #Bradycardia * has improved today * cardiac cath negative as above. * for pacemaker insertion tomorrow * cardiology on board * #Acute exacerbation of HFpEF * being diuresed with IV lasix * monitor intake and output. * fluid restriction to 1500cc daily. 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 Will trend Cr. Cr around baseline today #MACHELLE: on CPAP qhs #TYpe 2 diabetes mellitus: * on ISS. on lantus 30 units daily. * Accuchecks ACHS. * On dulaglutide which is on hold as patient was n.p.o. * also on tirzepatide weekly. #Hyperlipidemia: High intensity statin #Paroxysmal A-fib: * Beta-simona on hold on account of bradycardia. * On flecainide. * Not anticoagulated * #BPH: on finasteride DVT prophylaxis: heparin. Medications at Discharge Home Medications finasteride 5 mg tablet 5 mg PO DAILY PROSTATE #90 tabs 11/03/18 blood pressure monitor #1 ea 03/13/21 lancets 30 gauge (OneTouch Delica Lancets) #200 ea 10/26/21 pramipexole 1 mg tablet (Mirapex) 2 mg PO QHS RLS #180 tabs 12/10/21 pen needle, diabetic 31 gauge x 3/16 (BD Ultra-Fine Mini Pen Needle) #100 ea 01/23/22 flecainide 100 mg tablet 100 mg PO Q12H HEART RATE #180 tabs 04/01/22 sertraline 25 mg tablet 25 mg PO DAILY DEPRESSION 04/05/22 compress.stocking,knee,reg,lrg #2 ea 07/05/22 metoprolol succinate 25 mg tablet,extended release 24 hr 12.5 mg PO DAILY BP 07/16/22 ferrous sulfate 325 mg (65 mg iron) tablet 325 mg PO TH supplement 07/31/22 furosemide 40 mg tablet 40 mg PO DAILY FLUID 07/31/22 blood sugar diagnostic #100 ea 09/05/22 meclizine 25 mg tablet 25 mg PO TID PRN dizziness #20 tabs 10/01/22 acetaminophen 500 mg tablet 1,000 mg PO Q6H PRN Pain 10/06/22 amlodipine 10 mg tablet 5 mg PO DAILY BP 10/06/22 dulaglutide 4.5 mg/0.5 mL subcutaneous pen injector 4.5 mg subcut .COMPLEX DM 0 10/06/22 ergocalciferol (vitamin D2) 1,250 mcg (50,000 unit) capsule 50,000 unit PO QMONTH SUPPLEMENT 10/06/22 famotidine 40 mg tablet 40 mg PO DAILY GERD 10/06/22 hydralazine 50 mg tablet 50 mg PO BID BP 10/06/22 insulin glargine 100 unit/mL (3 mL) subcutaneous pen 30 unit subcut QAM DM 10/06/22 olmesartan 40 mg tablet 20 mg PO BID HEART 10/06/22 progesterone micronized 100 mg capsule 100 mg PO QAM HORMONE 10/06/22 simvastatin 20 mg tablet 20 mg PO QHS CHOLESTEROL 10/06/22 spironolactone 50 mg tablet 25 mg PO DAILY FLUID 10/06/22 tirzepatide 5 mg/0.5 mL subcutaneous pen injector (Mounjaro) 5 mg subcut QWEEK DM 10/06/22 Hospital Course Operations None Procedures Cardiac catheterization Summary of Care Provided Minutes Spent on Discharge: 42 Hospital Course: Patient is an 82-year-old male with a past medical history as outlined was admitted through the ED on 10/06/2022 with a complaint of shortness of breath and chest pain. He described the pain as pressure-like and symptoms started on the morning of admission. Chest pain did not radiate and could not say how long it lasted but had resolved by the time he came into the ED. In the ED, EKG done showed junctional rhythm with heart rate of 59. Chest x-ray showed evidence of congestive heart failure. BNP was elevated at 238 though he did have CKD. Rhythm strip showed that his heart rate was going down into the 20s in the 30s. He was admitted and managed for acute exacerbation of heart failure with preserved ejection fraction as well as bradycardia and chest pain. Cardiology was consulted. He had cardiac cath which showed nonobstructive coronary art eries. Plan was for pacemaker implantation and per cardiology this could be done on outpatient basis. Per cardiology recommendations, patient's flecainide and metoprolol were restarted. He was discharged home on 10/08/2022 and cardiology will follow-up with him to schedule pacemaker on outpatient basis. Patient was seen and examined prior to discharge. He had no complaints and had an uneventful night. Review of systems otherwise negative. Labs and vitals reviewed. Home medication reviewed and reconciled. Physical Exam Const alert, oriented x3 and no apparent distress Constitutional Narrative: Patient is morbidly obese General Appearance: cooperative, comfortable, well kempt and well developed Orientation / Consciousness: awake, oriented to person, oriented to place and oriented to time HEENT normocephalic, head/scalp atraumatic, hearing grossly normal bilaterally, moist oral mucous membranes and oropharynx normal Mouth: oral and palatal mucosa normal Eyes PERRL, EOMs intact bilaterally and conjunctivae normal Neck no lymphadenopathy, supple, no JVD, thyroid normal and no carotid bruits General: trachea midline Resp normal respiratory effort, no retractions, no use of accessory muscles and clear to auscultation bilaterally Auscultation: Negative for rales, rhonchi or wheezes Cardio regular rate, regular rhythm, S1 normal heart sound, S2 normal heart sound, no murmurs, no rub and no gallops GI normal to inspection, nondistended, normoactive bowel sounds, soft to palpation, non-tender and non-distended Extremity normal to inspection, full ROM and no clubbing, cyanosis or edema Extremity Narrative: MARIJA wraps on both lower extremities Skin no rashes or lesions noted General Skin Exam: no breakdown Neuro oriented x3, CN's II-XII intact bilaterally, moves all extremities, no focal motor deficits and no sensory deficits noted Sensorium / Orientation: awake, alert, oriented to person, oriented to place and oriented to time Speech: speech normal Motor Exam: strength 5/5 throughout Psych affect normal Weight / BMI Weight Weight: 280 lb 3.32 oz Body Mass Index (BMI) 38.0 ABG / Lab / Microbiology Data Result Diagrams: 10/08/22 04:27 10/08/22 04:27 Laboratory: Laboratory Results - last 24 hr 10/07/22 11:46: POC Glucose 189 H 10/07/22 17:11: POC Glucose 133 H 10/07/22 20:51: POC Glucose 156 H 10/08/22 04:27: WBC 7.0, RBC 3.48 L, Hgb 10.5 L, Hct 33.1 L, MCV 95.1 H, MCH 30.2, MCHC 31.7 L, RDW Std Deviation 47.5 H, RDW Coeff of Flavio 13.7, Plt Count 186, MPV 9.9, Immature Gran % (Auto) 0.400, Neut % (Auto) 63.8, Lymph % (Auto) 19.3, Gage % (Auto) 12.2 H, Eos % (Auto) 3.6, Baso % (Auto) 0.7, Absolute Neuts (auto) 4.5, Absolute Lymphs (auto) 1.35, Nucleated RBC % 0 10/08/22 04:27: Sodium 139, Potassium 4.3, Chloride 105, Carbon Dioxide 27.0, Anion Gap 7, BUN 48 H, Creatinine 1.85 H, Estim Creat Clear Calc 33.21, Est GFR (MDRD) Af Amer 45 L, Est GFR (MDRD) Non-Af 37 L, BUN/Creatinine Ratio 25.9 H, Glucose 152 H, Calcium 8.8 10/08/22 07:05: POC Glucose 143 H D/C Instructions Discharge Diet: Low fat / Low cholesterol and 1800 Calorie Control Diet Weight Bearing Status: Weight bearing as tolerated Call your doctor if you observe: Fever of 101 or Higher, Shortness of breath, Dizziness, Swelling in the ankles, Chest pain and Increased palpitations (irregular heartbeat) Meaningful Use Info Meaningful Use Diagnoses (Choose all that apply): CHF CHF MARIJA/ARB ordered at discharge?: Yes Documented LVEF (%): 65 Discharge Plan Admission Admit Date/Time: 10/06/22 08:38 Primary Reason for Your Visit: bradycardia Attending Provider: Clarice Fontenot Primary Care Provider: Tosha Shrestha Consulting Providers: Caden Hernandez Instructions Patient Instructions: Sick Sinus Syndrome, Understanding Bradycardia Discharge Orders/Prescriptions Prescriptions: Continued (DME) blood pressure monitor Kit See Rx Instructions .ROUTE .MEDSUPPLY Qty: 1 0RF Rx Instructions: check blood pressure daily (DME) lancets [OneTouch Delica Lancets] 30 gauge misc See Rx Instructions .ROUTE .MEDSUPPLY Qty: 200 3RF Rx Instructions: check blood sugar tid for type 2 DM pramipexole [Mirapex] 1 mg tablet 2 mg PO QHS Qty: 180 3RF furosemide 40 mg tablet 40 mg PO DAILY sertraline 25 mg tablet 25 mg PO DAILY (DME) compress.stocking,knee,reg,lrg Misc See Rx Instructions .MEDSUPPLY Qty: 2 1RF Rx Instructions: wear daily for venous insufficiency 20-30 mmHg ferrous sulfate 325 mg (65 mg iron) tablet 325 mg PO Rx Instructions: only acetaminophen 500 mg Tablet 1,000 mg PO Q6H PRN (Reason: Pain) spironolactone 50 mg tablet 25 mg PO DAILY famotidine 40 mg tablet 40 mg PO DAILY amlodipine 10 mg tablet 5 mg PO DAILY simvastatin 20 mg tablet 20 mg PO QHS hydralazine 50 mg tablet 50 mg PO BID ergocalciferol (vitamin D2) 1,250 mcg (50,000 unit) capsule 50,000 unit PO QMONTH progesterone micronized 100 mg capsule 100 mg PO QAM olmesartan 40 mg tablet 20 mg PO BID insulin glargine 100 unit/mL (3 mL) insulin pen 30 unit subcut QAM dulaglutide 4.5 mg/0.5 mL pen injector 4.5 mg SC .COMPLEX Rx Instructions: 4.5 mg subcut every friday Mounjaro 5 mg/0.5 mL pen injector 5 mg subcut QWEEK finasteride 5 mg tablet 5 mg PO DAILY Qty: 90 3RF (DME) pen needle, diabetic [BD Ultra-Fine Mini Pen Needle] 31 gauge x 3/16 needle See Rx Instructions .ROUTE .MEDSUPPLY Qty: 100 3RF Rx Instructions: daily for type 2 dm flecainide 100 mg tablet 100 mg PO Q12H Qty: 180 2RF Hold Instructions: bradycardia 07/09 metoprolol succinate 25 mg tablet extended release 24 hr 12.5 mg PO DAILY (DME) blood sugar diagnostic Strip See Rx Instructions .ROUTE .MEDSUPPLY Qty: 100 3RF Rx Instructions: One Touch Elena test strip, use to test blood sugar 3 times daily. Dx E11.42 meclizine 25 mg tablet 25 mg PO TID PRN (Reason: dizziness) Qty: 20 0RF Referrals / Follow Up: Sajan Rogers MD [Med Staff - Active Staff] - Within 1 Week Tosha Shrestha MD [Primary Care Provider] - Within 2 Weeks Disposition Disposition (needs filled in before D/C Order can be placed): Home, Self Care Charges/Coding Visit Charges Inpatient E&M: 27651 Disch Hosp >30min
[2022-10-08 10:18] VITALS: O2SAT 95; O2SAT 97
--- NOTE | 2022-10-08 11:30 | CASEMGMT ---
TIMOTHY LOPEZ NOTE: Pt being discharged. Therapy eval done today. No additional therapy recommended. TIMOTHY LOPEZ to room. Pt sitting up in chair in room. He denies having any concerns w/going home and denies having any discharge planning needs or concerns. Allie BALDWIN RN CM
[2022-10-08] MEDS: Insulin Glargine-YFGN 100 UNIT/ML Pen 30 UNIT SC (11:36)
--- NOTE | 2022-10-08 11:57 | CHAPLAIN ---
Type of Pastoral Visit _x__ Initial Visit ___ Follow-up Visit ___ On-call Visit ___ General Patient Visit ___ Spiritual Assessment ___ Family Conference ___ Bereavement ___ Rapid Response ___ Code Blue ___ Other (describe below) Pastoral Care Referral From _x__ Patient ___ Family ___ Nurse ___ Physician ___ Hospital Administrator ___ Agriculture Mechanic ___ Other (describe below) Sacrament/Intervention _x__ Active listening ___ Anointing ___ Congregation ___ Bereavement ___ Communion ___ Ariadna exploration ___ _x__ Life review ___ Prayer ___ Reconciliation ___ Sacrament of Sick _x__ Supportive presence ___ Wedding ___ Other (describe below) Pastoral 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
[2022-10-08 12:01] LABS: Bedside Glucose 144 mg/dL (74-106)
[2022-10-08 13:30] VITALS: BP 140/44; PULSE 82; RESP 19; O2SAT 96
== END 2022-10-08 13:45 | disposition home or self-care (01) | DRG 286 ==
LOC: ED 07:30 → ICU 09:18
PROVIDERS: Internal Medicine; Admitting Provider Internal Medicine; Emergency Provider Emergency Medicine; PCP Internal Medicine; Visit Provider Student in an Organized Health Care Education/Training Program
DX: I13.0 Hypertensive heart and chronic kidney disease with heart failure and stage 1 through stage 4 chronic kidney disease, or unspecified chronic kidney disease (principal); I50.33 Acute on chronic diastolic (congestive) heart failure; Z68.41 Body mass index [BMI] 40.0-44.9, adult; D63.1 Anemia in chronic kidney disease; E11.22 Type 2 diabetes mellitus with diabetic chronic kidney disease; I27.20 Pulmonary hypertension, unspecified; E11.42 Type 2 diabetes mellitus with diabetic polyneuropathy; N18.31 Chronic kidney disease, stage 3a; E66.01 Morbid (severe) obesity due to excess calories; I48.0 Paroxysmal atrial fibrillation; Z79.4 Long term (current) use of insulin; I25.10 Atherosclerotic heart disease of native coronary artery without angina pectoris; E78.5 Hyperlipidemia, unspecified; G47.33 Obstructive sleep apnea (adult) (pediatric); I34.0 Nonrheumatic mitral (valve) insufficiency; R00.1 Bradycardia, unspecified; N40.0 Benign prostatic hyperplasia without lower urinary tract symptoms; R07.89 Other chest pain; Z79.85 Long-term (current) use of injectable non-insulin antidiabetic drugs; Z79.899 Other long term (current) drug therapy; Z86.73 Personal history of transient ischemic attack (TIA), and cerebral infarction without residual deficits
CPT/HCPCS: 71045; 80048; 82962; 83735; 83880; 84100; 84484; 85025; 93005; 93454; 97162; 97165; 97802; 99152; 99153; 99285; J7030; J7040; A4216; C1769; C1894; J1940; Q9967

== ENCOUNTER 2022-10-09 23:48 | Inpatient (IN) | payer MEDICARE, BC, SELFPAY ==
[2022-10-09 23:48] VITALS: BP 166/54; PULSE 73; RESP 16; TEMP 37.1; O2SAT 95
[2022-10-10] VITALS (11 sets, daily range): BP systolic 124–152; BP diastolic 50–77; PULSE 66–78; RESP 15–18; TEMP 36.3–36.8; O2SAT 93–97; BMI 38.4; BMI 38.2
--- NOTE | 2022-10-10 00:25 | RAD_ITS ---
EXAM: XR RIGHT FOOT COMPLETE, 3 OR MORE VIEWS CLINICAL INDICATION: foot pain TECHNIQUE: Frontal, lateral and oblique views of the right foot. This report was created using [employer] report generation technology. COMPARISON: None. FINDINGS: BONES/JOINTS: Diffuse demineralization of the osseous structures. No acute fracture. No subluxation. Normal alignment. Preservation of the joint space. No sclerotic or destructive changes observed. SOFT TISSUES: Unremarkable. No soft tissue swelling or gas. No radiopaque foreign body. VASCULATURE: Small vessel arterial calcifications. RAD/Foot min 3 Views IMPRESSION: No acute findings in the right foot. Electronically Signed: Jorge Luis Hewitt MD at 1:09 EST ,
[2022-10-10] MEDS: Morphine 2 MG/ML Syringe IV ×2 (00:37→06:11)
[2022-10-10] MEDS: Ondansetron 4 MG/2 ML Vial IV (00:37)
[2022-10-10 00:43] LABS: Absolute Lymphocyte Count 1.38 X10^3/uL (0.83-4.51); Basophil# 0.03 X10^3/uL; Basophil% 0.3 % (0-1); Eosinophil# 0.27 X10^3/uL; Eosinophils% 3.1 % (0-5); Hematocrit 32.8 % (40-54); Hemoglobin 10.5 g/dL (13.0-16.5); Lymphocyte # 1.38 X10^3/ul (0.83-4.51); Lymphocyte % 15.9 % (19-41); Mean Corpuscular Hgb 30.3 pg (27.0-32.0); Mean Corpuscular Volume 94.5 fL (80-94); Mean Platelet Vol. 9.5 fl (6.2-12.0); Monocyte# 0.98 X10^3/uL; Monocyte% 11.3 % (0-10); NRBC Flagged by Analyzer 0 % (0-5); Neutrophil # 5.98 X10^3/uL (2.7-7.7); Neutrophil % 69.1 % (47-70); Platelet Count 183 K/mm3 (150-450); RBC Distribution Width CV 13.5 % (11.6-14.6); RBC Distribution Width SD 46.8 fl (35.1-43.9); Red Blood Count 3.47 M/mm3 (4.6-6.2); White Blood Count 8.7 K/mm3 (4.4-11.0)
[2022-10-10 01:00] LABS: Anion Gap 11 (5-15); BUN 67 mg/dL (7-18); Chloride 104 mmol/L (98-107); Creatinine, Serum 2.58 mg/dL (0.70-1.30); EST Glomerular Filtration Rate 25 mL/min (>60); Est Glom Filt Rate - Afr Amer 31 mL/min (>60); Estimated Creatinine Clearance 23.81 ml/min; Glucose 154 mg/dL (74-106); Potassium 4.4 mmol/L (3.5-5.1); Sodium Level 139 mmol/L (136-145)
--- NOTE | 2022-10-10 02:23 | ED.RN ---
attempted to walk pt x2 assist. pt able to stand beside the bed with walker but unable to take steps d/t pain. pt assisted back to bed x2 assist. Dr. Beasley updated.
--- NOTE | 2022-10-10 02:37 | EX.ED.DYSGE1 ---
HPI History of Present Illness Chief Complaint: Lower Extremity Injury Narrative Narrative: Patient is a 82-year-old male with past medical history of chronic kidney disease as well as congestive heart failure and sick sinus syndrome and type 2 diabetes. He was admitted to the hospital on Friday secondary to the abnormal cardiac rhythm and discharged home Friday. He states that he felt tired after his admission to the hospital and therefore had been sleeping for most the day on Friday and even into Friday. He states that he got up to go to the bathroom with his walker and felt pain in his right foot. He states the pain is to the point where he cannot hardly put any weight on it secondary to the worsening of symptoms with weightbearing. He denies any trauma and he denies any fevers or chills but with worsening pain and difficulty walking returns for repeat evaluation [facility] Medical History (HFpEF) heart failure with preserved ejection fraction (12/12/20) Acute respiratory failure with hypoxia Anemia Anemia of chronic renal failure, stage 3 (moderate) Anxiety and depression Atherosclerotic heart disease of [place] coronary artery without angina pectoris Atrial flutter Atypical chest pain Back pain BMI 34.0-34.9,adult BPH (benign prostatic hyperplasia) BPPV (benign paroxysmal positional vertigo) Bradycardia Cardiac dysrhythmia Cardiology follow-up encounter CHF (congestive heart failure) De Quervain's tenosynovitis Debility Depression Dermatitis Diabetes mellitus Diabetic kidney disease Dizziness DM type 2 with diabetic peripheral neuropathy DVT (deep venous thrombosis) Dyslipidemia Dysphagia Essential (primary) hypertension Fall Flu vaccine need Fracture of great toe Gastric reflux Health care maintenance History of echocardiogram History of edema History of GI bleed History of peptic ulcer History of renal calculi History of ulceration HLD (hyperlipidemia) Injury of head and neck Iron deficiency anemia Iron deficiency anemia due to chronic blood loss Kidney hematoma (12/08/20) Left knee pain Left leg DVT Loss of equilibrium Low iron Malaise Near syncope Orthostatic hypotension MACHELLE (obstructive sleep apnea) Pain of left lower extremity Paroxysmal atrial fibrillation Paroxysmal atrial flutter Pneumonia Polypharmacy Prostate disease Psoriasis Recurrent syncope (06/19/22) Renal calculi RLS (restless legs syndrome) Sex disorder Suicidal ideation SVT (supraventricular tachycardia) TIA (transient ischemic attack) Urolithiasis Venous insufficiency of both lower extremities Vertigo Walker as ambulation aid Wears glasses Home Medications finasteride 5 mg tablet 5 mg PO DAILY PROSTATE #90 tabs 11/03/18 [Rx Last Taken 10/05/22] blood pressure monitor #1 ea 03/13/21 [Rx Last Taken Unknown] lancets 30 gauge ([employer] Lancets) #200 ea 10/26/21 [Rx Last Taken Unknown] pramipexole 1 mg tablet (Mirapex) 2 mg PO QHS RLS #180 tabs 12/10/21 [Rx Last Taken 10/05/22] pen needle, diabetic 31 gauge x 3/16 (BD Ultra-Fine Mini Pen Needle) #100 ea 01/23/22 [Rx Last Taken Unknown] flecainide 100 mg tablet 100 mg PO Q12H HEART RATE #180 tabs 04/01/22 [Rx Last Taken 10/05/22] sertraline 25 mg tablet 25 mg PO DAILY DEPRESSION 04/05/22 [History Last Taken 10/05/22] compress.stocking,knee,reg,lrg #2 ea 07/05/22 [Rx Last Taken Unknown] metoprolol succinate 25 mg tablet,extended release 24 hr 12.5 mg PO DAILY BP 07/16/22 [History Last Taken 10/05/22] ferrous sulfate 325 mg (65 mg iron) tablet 325 mg PO TH supplement 07/31/22 [History Last Taken 10/03/22] furosemide 40 mg tablet 40 mg PO DAILY FLUID 07/31/22 [History Last Taken 10/05/22] blood sugar diagnostic #100 ea 09/05/22 [Rx Last Taken Unknown] meclizine 25 mg tablet 25 mg PO TID PRN dizziness #20 tabs 10/01/22 [Rx Last Taken 10/05/22] acetaminophen 500 mg tablet 1,000 mg PO Q6H PRN Pain 10/06/22 [History Last Taken 10/06/22 03:00] amlodipine 10 mg tablet 5 mg PO DAILY BP 10/06/22 [History Last Taken 10/05/22] dulaglutide 4.5 mg/0.5 mL subcutaneous pen injector 4.5 mg subcut .COMPLEX DM 10/06/22 [History Last Taken 10/05/22] ergocalciferol (vitamin D2) 1,250 mcg (50,000 unit) capsule 50,000 unit PO QMONTH SUPPLEMENT 10/06/22 [History Last Taken 09/18/22] famotidine 40 mg tablet 40 mg PO DAILY GERD 10/06/22 [History Last Taken 10/05/22] hydralazine 50 mg tablet 50 mg PO BID BP 10/06/22 [History Last Taken 10/05/22] insulin glargine 100 unit/mL (3 mL) subcutaneous pen 30 unit subcut QAM DM 10/06/22 [History Last Taken 10/05/22] olmesartan 40 mg tablet 20 mg PO BID HEART 10/06/22 [History Last Taken 10/05/22] progesterone micronized 100 mg capsule 100 mg PO QAM HORMONE 10/06/22 [History Last Taken 10/05/22] simvastatin 20 mg tablet 20 mg PO QHS CHOLESTEROL 10/06/22 [History Last Taken 10/05/22] spironolactone 50 mg tablet 25 mg PO DAILY FLUID 10/06/22 [History Last Taken 10/05/22] tirzepatide 5 mg/0.5 mL subcutaneous pen injector (Mounjaro) 5 mg subcut QWEEK DM 10/06/22 [History Last Taken Unknown] Allergy/AdvReac Type Severity Reaction Status Date / Time hydrocodone bitartrate AdvReac Severe Other Verified 10/09/22 23:51 [From Vicodin] hydroxyzine AdvReac Severe Other Verified 10/09/22 23:51 Family History Father Diabetes Hypertension Cancer Lung cancer Mother Hypertension CVA (cerebral vascular accident) Sister Diabetes Son Diabetes Surgical History History of cardioversion (2015) History of cataract surgery History of left heart catheterization (02/16/13) History of lithotripsy (11/2020) History of loop recorder (06/26/22) History of radiofrequency ablation procedure for cardiac arrhythmia (02/05/06) history of right knee cap fracture History of right knee surgery Status post laser lithotripsy of ureteral calculus Status post left foot surgery STENT PLACEMENT FOR KIDNEY STONE Social History household members: spouse housing: house Smoking Status: Never smoker how long ago did patient quit smokin second hand exposure: No alcohol intake: never substance use type: does not use caffeine: No what type of physical activity do you participate in: none seatbelt use: always do you feel safe at home: Yes ROS ROS ED Constitutional Constitutional ED: Denies chills or fever(s) ENT ENT ED: Denies sore throat Cardiovascular Cardiovascular: Denies chest pain Respiratory/Chest Respiratory/Chest: Denies cough or dyspnea Gastrointestinal Gastrointestinal: Denies abdominal pain, diarrhea, nausea or vomiting Genitourinary Genitourinary ED: Denies dysuria Musculoskeletal Musculoskeletal: Reports other Details: Positive right foot pain Integumentary Denies Abrasions or rash Neurologic Neurologic: Denies headache(s) Hematologic/Lymphatic Hematologic/Lymphatic: Denies easy bleeding or easy bruising EXAM Physical Exam Const Vital Signs: 10/09/22 23:48 Temperature 98.7 F Temperature Source Temporal Pulse Rate 73 Respiratory Rate 16 Blood Pressure 166/54 H Blood Pressure Mean 91 Pulse Ox 95 Oxygen Delivery Method Room Air Positive well nourished, well developed and obese General Appearance ED: well developed Nutritional Appearance: obese Eyes PERRL and EOMs intact bilaterally Neck supple and no JVD Resp normal respiratory effort and clear to auscultation bilaterally Cardio regular rate and regular rhythm Rate: other Other Details: Radial pulses are plus 2 out of 4 bilaterally are equal and symmetric GI normal to inspection, nondistended, normoactive bowel sounds, non-tender and non-distended GI Narrative: No voluntary guarding or rigidity. No pulsatile mass or fluid wave. Auscultation: normoactive bowel sounds Palpation: soft Extremity Extremity Narrative: Patient has mild asymmetric edema of his right lower extremity compared to the left. Otherwise there is pain with palpation over top the dorsum and plantar aspect of the foot in the middle portion. There is no obvious bony deformity or joint effusion. No overlying erythema or warmth. No obvious abscess formation or lymphangitic streaking. Capillary refills less than 3 seconds Neuro oriented x3 and CN's II-XII intact bilaterally Sensorium / Orientation: alert Psych mental status grossly normal Skin no rashes or lesions noted Skin Narrative: Patient has chronic stasis changes to bilateral legs without signs of acute infection or lack of blood flow MDM MDM MDM Narrative Medical decision making narrative: Patient presented to the ER mildly hypertensive but has a history of this and is in pain so this is a normal physiologic response. Otherwise he is afebrile. He has pain with no reported onset of trauma and no overlying signs of possible infection. However there is concern he could have a bony injury so an x-ray was ordered. X-ray revealed no acute fracture or dislocation or foreign body. Based on the patient's leg swelling a D-dimer was obtained which is at the upper limit of normal for his age-adjusted change and as he received heparin in the hospital concern for DVT is low. Blood work did show that his creatinine has elevated from 1.85-2.6 value indicating acute on chronic kidney injury. He also has elevation to his uric acid at 11 which could be the cause of his right foot pain despite no erythema or warmth present. The patient was treated with morphine and reported improvement of pain at rest but he could not stand despite this. Therefore at this time with the patient's elevated uric acid and concern for gout causing intractable pain and inability to ambulate as well as acute on chronic kidney injury he will be kept in the for gentle fluid hydration and pain control Lab Data Attestation: I reviewed the patient's lab results. Labs: Laboratory Results - last 24 hr 10/10/22 10/10/22 10/10/22 00:38 00:38 00:38 WBC 8.7 RBC 3.47 L Hgb 10.5 L Hct 32.8 L MCV 94.5 H MCH 30.3 MCHC 32.0 RDW Std Deviation 46.8 H RDW Coeff of Flavio 13.5 Plt Count 183 MPV 9.5 Immature Gran % (Auto) 0.300 Neut % (Auto) 69.1 Lymph % (Auto) 15.9 L Harvey % (Auto) 11.3 H Eos % (Auto) 3.1 Baso % (Auto) 0.3 Absolute Neuts (auto) 6.0 Absolute Lymphs (auto) 1.38 Nucleated RBC % 0 D-Dimer Quant (PE/DVT) 0.80 H* Sodium 139 Potassium 4.4 Chloride 104 Carbon Dioxide 24.0 Anion Gap 11 BUN 67 H Creatinine 2.58 H Estim Creat Clear Calc 23.81 Est GFR (MDRD) Af Amer 31 L Est GFR (MDRD) Non-Af 25 L BUN/Creatinine Ratio 26.0 H Glucose 154 H Uric Acid 11.0 H Calcium 9.0 Radiography Diagnostic Testing: Clinical Impression(s) from Imaging Studies Foot X-Ray 10/10/22 00:25 IMPRESSION: No acute findings in the right foot. Electronically Signed: Jorge Luis Hewitt MD at 1:09 EST , X-ray of the right foot as interpreted by the emergency medicine physician reveals no acute fracture dislocation or foreign body Discharge Plan Dx/Rx/DC Orders Clinical Impression: Acute kidney injury, Gout flare, CHF (congestive heart failure), DM type 2 with diabetic peripheral neuropathy Disposition Disposition: Acute Care Hospital [facility] Discharge Date/Time: 10/10/22 03:16
--- NOTE | 2022-10-10 03:29 | PCM.HP.STD ---
HPI - General General Date of Admission: 10/10/22 Date of Service: 10/10/22 Chief Complaint: R foot pain. HPI Narrative The patient is an 82 y/o M w/ PMHx: Obesity, Hx TIA, Anxiety and Depression, RLS, PAF/Flutter s/p RFA, Hx VTE, Chronic anemia/Fe deficiency anemia, GERD w/ Hx PUD, Diabetes mellitus type II with chronic neuropathy, BPH, CKD stage III unclear subtype, MACHELLE on BIPAP q HS, Diastolic CHF, recently discharged following admission 10/06/22-10/08/22 for bradycardia and chest pain with acute CHF exacerbation with fluid restriction 1500 cc and IV lasix diuresis with cardiac catheterization performed with recommendation for medical therapy and consideration pacemaker implantation with nonobstructive CAD and noted bradycardic arrhythmias who now re-presents to the [facility] ED on 10/10/22 with history of onset over the last 24 to 48 hours of right foot pain with no specific injury or fall however significantly debilitating, sharp prompting patient to limp and eventually present to the ED for evaluation. Patient describes the foot pain as a sharp stabbing 10 out of 10 even with light touch to the plantar aspect of the foot primarily in the midfoot dorsally. Patient's felt as though the right foot was little bit more swollen but he did place compression stockings initially. In the ED patient with walker attempt x2 however he had significant debility secondary to notable right foot pain. At home he noted difficulty even attempting to get up from the restroom because of inability to bear weight on the right foot secondary to pain. Work-up in the ED included T98.7, heart rate 73, BP 166/54, respiratory rate 16, 95% on room air, CBC with WBC 8.7, hemoglobin 10.5, MCV 94.5, platelet 183 without shift, D-dimer 0.80 normal for age, BMP with BUN/creatinine 67/2.58, glucose 154, uric acid 11, plain film of the right foot with no acute findings. In the ED patient ministered Zofran 4 mg IV x1 as well as morphine 2 mg IV x1. [facility] Medical History (HFpEF) heart failure with preserved ejection fraction (12/12/20) Acute respiratory failure with hypoxia Anemia Anemia of chronic renal failure, stage 3 (moderate) Anxiety and depression Atherosclerotic heart disease of [place] coronary artery without angina pectoris Atrial flutter Atypical chest pain Back pain BMI 34.0-34.9,adult BPH (benign prostatic hyperplasia) BPPV (benign paroxysmal positional vertigo) Bradycardia Cardiac dysrhythmia Cardiology follow-up encounter CHF (congestive heart failure) De Quervain's tenosynovitis Debility Depression Dermatitis Diabetes mellitus Diabetic kidney disease Dizziness DM type 2 with diabetic peripheral neuropathy DVT (deep venous thrombosis) Dyslipidemia Dysphagia Essential (primary) hypertension Fall Flu vaccine need Fracture of great toe Gastric reflux Health care maintenance History of echocardiogram History of edema History of GI bleed History of peptic ulcer History of renal calculi History of ulceration HLD (hyperlipidemia) Injury of head and neck Iron deficiency anemia Iron deficiency anemia due to chronic blood loss Kidney hematoma (12/08/20) Left knee pain Left leg DVT Loss of equilibrium Low iron Malaise Near syncope Orthostatic hypotension MACHELLE (obstructive sleep apnea) Pain of left lower extremity Paroxysmal atrial fibrillation Paroxysmal atrial flutter Pneumonia Polypharmacy Prostate disease Psoriasis Recurrent syncope (06/19/22) Renal calculi RLS (restless legs syndrome) Sex disorder Suicidal ideation SVT (supraventricular tachycardia) TIA (transient ischemic attack) Urolithiasis Venous insufficiency of both lower extremities Vertigo Walker as ambulation aid Wears glasses Home Medications finasteride 5 mg tablet 5 mg PO DAILY PROSTATE #90 tabs 11/03/18 [Rx Last Taken 10/05/22] blood pressure monitor #1 ea 03/13/21 [Rx Last Taken Unknown] lancets 30 gauge (OneTouch Delica Lancets) #200 ea 10/26/21 [Rx Last Taken Unknown] pramipexole 1 mg tablet (Mirapex) 2 mg PO QHS RLS #180 tabs 12/10/21 [Rx Last Taken 10/05/22] pen needle, diabetic 31 gauge x 3/16 (BD Ultra-Fine Mini Pen Needle) #100 ea 01/23/22 [Rx Last Taken Unknown] flecainide 100 mg tablet 100 mg PO Q12H HEART RATE #180 tabs 04/01/22 [Rx Last Taken 10/05/22] sertraline 25 mg tablet 25 mg PO DAILY DEPRESSION 04/05/22 [History Last Taken 10/05/22] compress.stocking,knee,reg,lrg #2 ea 07/05/22 [Rx Last Taken Unknown] metoprolol succinate 25 mg tablet,extended release 24 hr 12.5 mg PO DAILY BP 07/16/22 [History Last Taken 10/05/22] ferrous sulfate 325 mg (65 mg iron) tablet 325 mg PO TH supplement 07/31/22 [History Last Taken 10/03/22] furosemide 40 mg tablet 40 mg PO DAILY FLUID 07/31/22 [History Last Taken 10/05/22] blood sugar diagnostic #100 ea 09/05/22 [Rx Last Taken Unknown] meclizine 25 mg tablet 25 mg PO TID PRN dizziness #20 tabs 10/01/22 [Rx Last Taken 10/05/22] acetaminophen 500 mg tablet 1,000 mg PO Q6H PRN Pain 10/06/22 [History Last Taken 10/06/22 03:00] amlodipine 10 mg tablet 5 mg PO DAILY BP 10/06/22 [History Last Taken 10/05/22] dulaglutide 4.5 mg/0.5 mL subcutaneous pen injector 4.5 mg subcut .COMPLEX DM 10/06/22 [History Last Taken 10/05/22] ergocalciferol (vitamin D2) 1,250 mcg (50,000 unit) capsule 50,000 unit PO QMONTH SUPPLEMENT 10/06/22 [History Last Taken 09/18/22] famotidine 40 mg tablet 40 mg PO DAILY GERD 10/06/22 [History Last Taken 10/05/22] hydralazine 50 mg tablet 50 mg PO BID BP 10/06/22 [History Last Taken 10/05/22] insulin glargine 100 unit/mL (3 mL) subcutaneous pen 30 unit subcut QAM DM 10/06/22 [History Last Taken 10/05/22] olmesartan 40 mg tablet 20 mg PO BID HEART 10/06/22 [History Last Taken 10/05/22] progesterone micronized 100 mg capsule 100 mg PO QAM HORMONE 10/06/22 [History Last Taken 10/05/22] simvastatin 20 mg tablet 20 mg PO QHS CHOLESTEROL 10/06/22 [History Last Taken 10/05/22] spironolactone 50 mg tablet 25 mg PO DAILY FLUID 10/06/22 [History Last Taken 10/05/22] tirzepatide 5 mg/0.5 mL subcutaneous pen injector (Jenna) 5 mg subcut QWEEK DM 10/06/22 [History Last Taken Unknown] Allergy/AdvReac Type Severity Reaction Status Date / Time hydrocodone bitartrate AdvReac Severe Other Verified 10/09/22 23:51 [From Vicodin] hydroxyzine AdvReac Severe Other Verified 10/09/22 23:51 Family History Father Diabetes Hypertension Cancer Lung cancer Mother Hypertension CVA (cerebral vascular accident) Sister Diabetes Son Diabetes Surgical History History of cardioversion (2015) History of cataract surgery History of left heart catheterization (02/16/13) History of lithotripsy (11/2020) History of loop recorder (06/26/22) History of radiofrequency ablation procedure for cardiac arrhythmia (02/05/06) history of right knee cap fracture History of right knee surgery Status post laser lithotripsy of ureteral calculus Status post left foot surgery STENT PLACEMENT FOR KIDNEY STONE Social History household members: spouse housing: house Smoking Status: Never smoker how long ago did patient quit smokin second hand exposure: No alcohol intake: never substance use type: does not use caffeine: No what type of physical activity do you participate in: none seatbelt use: always do you feel safe at home: Yes ROS ROS Narrative Admission Review of Systems: CONSTITUTIONAL: No weight loss, fever, chills, + weakness or fatigue. HEENT: Eyes: No visual loss, blurred vision, double vision or yellow sclerae. Ears, Nose, Throat: No hearing loss, sneezing, congestion, runny nose or sore throat. SKIN: No rash or itching, lesions, wounds. CARDIOVASCULAR: No chest pain, chest pressure or chest discomfort, palpitations, edema, orthopnea, syncopal events. RESPIRATORY: No shortness of breath, cough or sputum, wheezing, hemoptysis. GASTROINTESTINAL: No anorexia, nausea, vomiting or diarrhea, abdominal pain, melena, BRBPR. GENITOURINARY: No dysuria, frequency, urgency or retention. NEUROLOGICAL: + Dizziness. No headache, syncope, paralysis, ataxia, numbness or tingling in the extremities, focal weakness, change in bowel or bladder control, seizure. MUSCULOSKELETAL: + muscle, back pain, joint pain or stiffness. HEMATOLOGIC: + anemia, bleeding or bruising. LYMPHATICS: No enlarged nodes. No history of splenectomy. PSYCHIATRIC: + history of depression or anxiety. ENDOCRINOLOGIC: No reports of sweating, cold or heat intolerance. No polyuria or polydipsia. ALLERGIES: No history of asthma, hives, eczema or rhinitis. Vital Signs Vital Signs Vital Signs: 10/09/22 23:48 Temperature 98.7 F Temperature Source Temporal Pulse Rate 73 Respiratory Rate 16 Blood Pressure 166/54 H Blood Pressure Mean 91 Pulse Ox 95 Oxygen Delivery Method Room Air Weight Weight: 283 lb 4.704 oz Body Mass Index (BMI) 38.4 Physical Exam Narrative Physical Examination: General: Awake, alert, oriented x 3 and cooperative, seated upright in the ED bed, fatigued, denies foot pain until evaluation with palpation of the foot. Skin: Normal color, normal turgor, no icterus, no cyanosis except for occasional staged ecchymoses and mild stasis changes to bilateral lower extremities. HEENT: AT/NC, EOMI, PERRLA, MMM, no carotid bruits or JVD noted; however, thickened neck makes evaluation difficult. Lungs: Mildly diminished, greater bases, appropriate effort, no rales, ronchi or wheezing. Heart: Regular rate and rhythm; no gallop, rub audible. Abdomen: Soft, obese, NTTP, no obvious distention but habitus makes evaluation difficult, hyperactive BS, no obvious evidence of HSM however habitus makes evaluation difficult Extremities: No cyanosis, no clubbing, bilateral peripheral distal ankle edema, sock fierro present, right foot with significant discomfort to even light touch primarily on the plantar aspect in the midfoot region as well as dorsally in the midfoot region with no obvious injury, abrasion, ecchymotic changes, redness. Neurological: Patient awake, alert, oriented as noted, cognitive function intact; pupils equally reactive to light and accommodation, cranial nerves II-XII grossly normal, moving all 4 extremities although limited significantly given severe right foot discomfort, no focal deficits, strength moderately to severely globally decreased. Psychiatric: Affect appears fatigued, no acute evidence of depressive or anxiety feelings. Results Lab / Micro Data Result Diagrams: 10/10/22 00:38 10/10/22 00:38 Labs: Laboratory Results - last 24 hr 10/10/22 00:38: WBC 8.7, RBC 3.47 L, Hgb 10.5 L, Hct 32.8 L, MCV 94.5 H, MCH 30.3, MCHC 32.0, RDW Std Deviation 46.8 H, RDW Coeff of Flavio 13.5, Plt Count 183, MPV 9.5, Immature Gran % (Auto) 0.300, Neut % (Auto) 69.1, Lymph % (Auto) 15.9 L, [place] % (Auto) 11.3 H, Eos % (Auto) 3.1, Baso % (Auto) 0.3, Absolute Neuts (auto) 6.0, Absolute Lymphs (auto) 1.38, Nucleated RBC % 0 10/10/22 00:38: D-Dimer Quant (PE/DVT) 0.80 H* 10/10/22 00:38: Sodium 139, Potassium 4.4, Chloride 104, Carbon Dioxide 24.0, Anion Gap 11, BUN 67 H, Creatinine 2.58 H, Estim Creat Clear Calc 23.81, Est GFR (MDRD) Af Amer 31 L, Est GFR (MDRD) Non-Af 25 L, BUN/Creatinine Ratio 26.0 H, Glucose 154 H, Uric Acid 11.0 H, Calcium 9.0 Radiology Impression Foot X-Ray 10/10/22 00:25 IMPRESSION: No acute findings in the right foot. Electronically Signed: Jorge Luis Hewitt MD at 1:09 EST , Assessment & Plan Assessment/Plan (1) Acute kidney injury: (2) Gout flare: PLAN: Plan The patient is an 82 y/o M w/ PMHx: Obesity, Hx TIA, Anxiety and Depression, RLS, PAF/Flutter s/p RFA, Hx VTE, Chronic anemia/Fe deficiency anemia, GERD w/ Hx PUD, Diabetes mellitus type II with chronic neuropathy, BPH, CKD stage III unclear subtype, MACHELLE on BIPAP q HS, Diastolic CHF, recently discharged following admission 10/06/22-10/08/22 for bradycardia and chest pain with acute CHF exacerbation with fluid restriction 1500 cc and IV lasix diuresis with cardiac catheterization performed with recommendation for medical therapy and consideration pacemaker implantation with nonobstructive CAD and noted bradycardic arrhythmias who now re-presents to the [facility] ED on 10/10/22 with history of onset over the last 24 to 48 hours of right foot pain with no specific injury or fall however significantly debilitating, sharp prompting patient to limp and eventually present to the ED for evaluation. #1. Acute right foot pain secondary to suspected gout flare but no overt edema/redness: To be cautious given underlying medical history will request podiatry consultation for consideration of aspiration, with current acute kidney injury will defer NSAID therapy, will initiate prednisone 60 mg daily at this time, also given acute kidney injury will defer usage of colchicine, reassess if renal function is improving, PT and OT assessments as well as case management for discharge planning. #2. Acute kidney injury on CKD stage III unclear subtype: Secondary to recent admission with IV Lasix diuresis and fluid restriction given acute CHF exacerbation. Admission BUN/Cr 67/2.58, prior baseline creatinine noted to be primarily 1.3-1.5 however increased 10/08/2022 up to 1.85 and now increased further upon presentation. Will very judicious hydrate given recent CHF exacerbation, hold nephrotoxic medications and repeat chemistry in AM. If no improvement would plan FeNa and renal ultrasound assessment. #3. Chronic diastolic CHF: We will continue aspirin, statin, low-dose metoprolol although given bradycardic arrhythmias low threshold to hold, holding Lasix as well as on losartan given acute kidney injury, resume once appropriate, very judiciously hydrating especially given recent admission #4. Nonobstructive CAD: Recent cardiac catheterization 10/07/2022, will continue aspirin, statin, metoprolol although low threshold to hold given recent bradycardic arrhythmia, holding olmesartan given acute kidney injury as noted. #5. Bradycardic arrhythmia: Recent cardiac catheterization with recommendation for consideration pacemaker placement, to be cautious we will maintain on telemetry monitoring, continued on very low-dose metoprolol but low threshold to hold if necessary. #6. Hypertension: Continue home regimen including metoprolol, hydralazine, PRN hydralazine. #7. Hyperlipidemia: We will continue patient on statin therapy. #8. PAF/flutter: We will continue patient home metoprolol low-dose as well as flecainide, status post RFA previously, not chronically anticoagulated. #9. History TIA: We will continue aspirin, statin, hypertensive regimen with adjustments as noted, diabetic regimen with adjustments as noted. #10. Diabetes mellitus type II: Hold oral home regimen, continue home insulin regimen, ADA diet, accu checks w/ ISS. #11. Chronic anemia/iron deficiency anemia: Admission hemoglobin 10.5, baseline appears 10-11, stable, continue to trend, continue iron supplementation. #12. Anxiety and depression: We will continue low-dose sertraline regimen however renal function worsens further may necessitate hold. #13. Obesity: Weight loss and lifestyle changes encouraged. #14. BPH: We will continue patient on finasteride regimen. #15. Restless leg syndrome: We will continue patient on pramipexole regimen. #16. History of prior VTE: Not chronically anticoagulated. #17. MACHELLE: We will continue patient on BiPAP nightly. #18. DVT prophylaxis: SCDs, heparin. #19. CODE status: Patient HCPOA is the patient's is primary and his secondary is his daughter and living will is currently in place. Discussed CODE status at length including difference between FULL code, DNR-CCA and DNR-CC status. Following discussions about the differences in these status, requested Full Code status. Advanced Care Planning Face to Face Time: 17 minutes. Admission Evaluation Time spent evaluating chart, patient history, patient evaluation, care planning and discussion with specialists: 76 minutes. Charges/Coding Visit Charges Inpatient E&M: 50011 Init Hosp L3 Procedures Hospitalists Procedures: 40593 Advncd Care Plan 30 Min
[2022-10-10] MEDS: 0.9% Normal Saline 1,000 ML 100 ML IV (03:44)
[2022-10-10] MEDS: Flecainide 100 MG Tablet PO ×2 (04:08→16:35)
[2022-10-10] MEDS: predniSONE 20 MG Tablet 60 MG PO (04:08)
[2022-10-10] MEDS: 0.9% Saline Lock 10 ML Syringe IV (04:09)
[2022-10-10 05:08] LABS: Absolute Lymphocyte Count 1.32 X10^3/uL (0.83-4.51); Basophil# 0.03 X10^3/uL; Basophil% 0.4 % (0-1); Eosinophil# 0.27 X10^3/uL; Eosinophils% 3.6 % (0-5); Hematocrit 31.7 % (40-54); Hemoglobin 10.3 g/dL (13.0-16.5); Lymphocyte # 1.32 X10^3/ul (0.83-4.51); Lymphocyte % 17.7 % (19-41); Mean Corp Hgb Conc 32.5 g/dL (32-36); Mean Corpuscular Hgb 30.7 pg (27.0-32.0); Mean Corpuscular Volume 94.3 fL (80-94); Mean Platelet Vol. 9.8 fl (6.2-12.0); Monocyte# 0.86 X10^3/uL; Monocyte% 11.5 % (0-10); NRBC Flagged by Analyzer 0 % (0-5); Neutrophil # 4.96 X10^3/uL (2.7-7.7); Neutrophil % 66.4 % (47-70); Platelet Count 183 K/mm3 (150-450); RBC Distribution Width CV 13.5 % (11.6-14.6); RBC Distribution Width SD 46.7 fl (35.1-43.9); Red Blood Count 3.36 M/mm3 (4.6-6.2); White Blood Count 7.5 K/mm3 (4.4-11.0)
[2022-10-10 05:44] LABS: ALB/GLOB Ratio 0.9 RATIO (0.9-2.4); AST(SGOT) 24 U/L (15-37); Alanine Aminotransfer ALT/SGPT 24 U/L (16-61); Albumin, Serum 3.2 g/dL (3.2-5.0); Alkaline Phosphatase 69 U/L (45-117); Anion Gap 7 (5-15); BUN 67 mg/dL (7-18); BUN/Creat Ratio 27.7 RATIO (10-20); Calcium,Total 8.9 mg/dL (8.5-10.1); Chloride 106 mmol/L (98-107); Creatinine, Serum 2.42 mg/dL (0.70-1.30); EST Glomerular Filtration Rate 27 mL/min (>60); Est Glom Filt Rate - Afr Amer 33 mL/min (>60); Estimated Creatinine Clearance 25.39 ml/min; Globulin 3.4 g/dL (2.2-4.2); Glucose 141 mg/dL (74-106); Potassium 4.5 mmol/L (3.5-5.1); Protein, Total 6.6 g/dL (6.4-8.2); Sodium Level 137 mmol/L (136-145)
[2022-10-10 06:45] LABS: Bedside Glucose 126 mg/dL (74-106)
--- NOTE | 2022-10-10 08:37 | MRI_ITS ---
EXAM: MR RIGHT LOWER EXTREMITY WITHOUT INTRAVENOUS CONTRAST, ANKLE CLINICAL INDICATION: right ankle pain TECHNIQUE: Multiplanar and multisequence MR images of the right ankle without intravenous contrast. This report was created using [employer] report generation technology. COMPARISON: X-ray 10/10/2022. FINDINGS: LIGAMENTS: Medial and lateral ligament complexes are intact. Normal subtalar ligaments. TENDONS: Achilles tendon is intact. Peroneus, flexor and extensor tendons are intact. No tendinosis or tear. MUSCLES: Unremarkable. Normal bulk and signal. FLUID: Small ankle joint effusion. Small subtalar joint effusion. SINUS TARSI: Unremarkable. Normal fat in the sinus tarsi. TARSAL TUNNEL: Unremarkable. PLANTAR FASCIA: Plantar fascia is intact. BONES/JOINTS: Degenerative changes of the talus at the subtalar joint. Marrow signal is otherwise unremarkable. No fracture or bone contusion. OTHER SOFT TISSUES: Moderate soft tissue edema, greatest medially. MRI/Lower Ext Joint Only (Routine) IMPRESSION: 1. Small joint effusions. 2. Mild degenerative changes of the talus. Electronically Signed: Chichi Varela MD at 16:22 EST Reading Location ID and State: [id number] / Tel , Service support ,
--- NOTE | 2022-10-10 08:37 | ART_ITS ---
Reason For Study: PVD Procedure A bilateral lower extremity continuous wave Doppler with analog waveform analysis,segmental pressures,and ankle brachial indexes without exercise. Left Segmental Pressures Left posterior tibial artery = 112mmHg. Left dorsalis pedis artery = 128mmHg. Left digit = 41 mmHg. The calf is noncompressible. The left posterior tibial artery waveforms are biphasic. The left dorsalis pedis waveforms are triphasic. Right Segmental Pressures Right brachial= 136mmHg. Right dorsalis pedis artery = 170mmHg. Right digit = 62 mmHg. RECOVERY OPERATOR is noncompressible. The right dorsalis pedis waveforms are triphasic. The right posterior tibial artery waveforms are biphasic. Indices The right ankle brachial index by the dorsalis pedis is 1.25. The right digital-brachial index is .46. RECOVERY OPERATOR is noncompressible. The left ankle brachial index by the dorsalis pedis is .94. The left ankle brachial index by the posterior tibial artery is .82. The left digital-brachial index is .3. VL/Lower Ext Art Exam w/o Exercis Interpretation Summary Right NANCY 1.25, normal. Doppler/PVR waveforms of the right leg normal at rest. TBI diminished, pedal/digit disease vs spasm. Left NANCY 0.94, mild arterial insufficiency. Doppler/PVR waveforms of the left l eg reveal no focal stenosis. Digit waveforms and TBI diminished, pedal/digit disease Ordering Physician: Edward Carr Performed By: ABDULLAHI LAMBERT Kenney
--- NOTE | 2022-10-10 08:37 | VDLE_ITS ---
Version 2 Reason For Study: Swelling RIGHT LEFT GSV is normal. GSV is normal. CFV is compressible, spontaneous, phasic, CFV is compressible, spontaneous, phasic, competent and demonstrates normal competent, and demonstrates normal augmentation. augmentation. FV is compressible, spontaneous, phasic, FV is compressible, spontaneous, phasic, competent and demonstrates normal competent and demonstrates normal augmentation. augmentation. POP V is compressible, spontaneous, phasic, POP V is compressible, phasic, and competent and demonstrates normal INCOMPETENT for greater than 1.0 second. augmentation. T/P Trunk is partially compressible with T/P Trunk is compressible. hyperechoic intraluminal echoes consistent PTV is compressible. with chronic DVT. RT PerV is compressible. PTV is compressible. Procedure LT PerV is compressible. This is a venous duplex using B-mode, color flow and spectral Doppler. Exam performed portable in patient room. The exam was diagnostic. A preliminary report was called and/or faxed to SKIP HOIST OPERATOR responsible for patient. VL/Venous Duplex US - Joselito Extrem Interpretation Summary Chronic deep vein thrombosis is noted in the left tibioperoneal trunk vein. Deep veins of the right lower extremity are patent and compressible segmentally . There is no evidence of right lower extremity deep vein thrombosis. The right great sapheno us vein appears patent and compressible segmentally. Positive for reflux in the left popliteal vein Ordering Physician: Edward Carr Referring Physician: Tosha Shrestha Performed By: Bobby Parada, RVT
--- NOTE | 2022-10-10 08:41 | CON.PCM_ITS ---
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 - Radiographs reviewed. No acute findings. - Patient demonstrates a chronic flatfoot deformity with exquisite tenderness along the course of the posterior tibial tendon. This may represent a acute tendon rupture secondary to the chronic deformity which may explain patient's acute swelling tenderness and inability to ambulate. - Patient does have an elevated uric acid of 11. On exam there are no focal areas of erythema edema and warmth suggestive of an acute gout flare. Typically we would aspirate the affected joint in these cases, but there is no limited area where this could be performed recently performed. Patient will likely need chronic uric acid lowering medication upon discharge and attempt to prevent acute gout flares in the future. Patient currently receiving corticosteroids in the hospital. In my opinion, clinical evaluation does not suggest that this is a gout flare however this cannot be completely ruled out. - Patient has a recent cardiac catheterization with diminished dorsalis pedis pulse. Patient's skin is warm to touch blanchable supple with intact PT and per forating peroneal pulses. I do not think acute ischemia is playing a role. - Patient does have significant neuropathy in setting of diabetes. An acute Charcot event cannot be ruled out as well. - However, at this time based on my clinical examination the presence of a chronic flatfoot deformity with acute swelling and tenderness along the course of the posterior tibial tendon combined with the inability the patient to invert the foot, I believe patient's inability to ambulate and source of acute pain is likely an acute rupture of the tibialis posterior tendon. Patient will likely require prolonged immobilization via cam walking boot until resolution of this issue. Upon resolution patient will be looking at long-term custom bracing of his right ankle as he will likely not be a good surgical candidate for reconstruction of his deformity due to age, cardiac status, diabetic status. -I recommend case management consult as patient will likely require nonweightbearing and may require SNF placement due to this. - An additional caveat is that an acute Charcot event cannot be ruled out at this time. Due to this I recommend complete nonweightbearing to avoid collapse and development of rocker-bottom foot type which frequently leads to chronic ulceration and below-knee amputation if this forms. - I have ordered an MRI for additional evaluation. - Due to diminished pulses of ordered arterial studies. - Patient did have some tense calf tenderness so ordered duplex ultrasound to rule out any possibility of DVT as well. (2) Type 2 diabetes mellitus with diabetic polyneuropathy: HPI Consult Data Date of Consult: 10/10/22 HPI Narrative HPI Narrative: MARY SAN, is a 82 M who presents to hospital for or intractable right foot pain patient unable to ambulate downstairs. Admitted to the hospital. Patient underwent recent cardiac catheterization 10/07/2022 and is awaiting pacemaker placement. Patient denies any acute injury but noted sudden onset of pain to his right ankle. Patient is diabetic with neuropathy and chronic kidney disease. Patient has no official diagnosis or history of gout. Patient denies any constitutional symptoms at current. Patient is comfortable when sitting in bed but notes extreme pain when attempting to ambulate. No other complaints. [facility] Medical History (HFpEF) heart failure with preserved ejection fraction (12/12/20) Acute respiratory failure with hypoxia Anemia Anemia of chronic renal failure, stage 3 (moderate) Anxiety and depression Atherosclerotic heart disease of [place] coronary artery without angina pectoris Atrial flutter Atypical chest pain Back pain BMI 34.0-34.9,adult BPH (benign prostatic hyperplasia) BPPV (benign paroxysmal positional vertigo) Bradycardia Cardiac dysrhythmia Cardiology follow-up encounter CHF (congestive heart failure) De Quervain's tenosynovitis Debility Depression Dermatitis Diabetes mellitus Diabetic kidney disease Dizziness DM type 2 with diabetic peripheral neuropathy DVT (deep venous thrombosis) Dyslipidemia Dysphagia Essential (primary) hypertension Fall Flu vaccine need Fracture of great toe Gastric reflux Health care maintenance History of echocardiogram History of edema History of GI bleed History of peptic ulcer History of renal calculi History of ulceration HLD (hyperlipidemia) Injury of head and neck Iron deficiency anemia Iron deficiency anemia due to chronic blood loss Kidney hematoma (12/08/20) Left knee pain Left leg DVT Loss of equilibrium Low iron Malaise Near syncope Orthostatic hypotension MACHELLE (obstructive sleep apnea) Pain of left lower extremity Paroxysmal atrial fibrillation Paroxysmal atrial flutter Pneumonia Polypharmacy Prostate disease Psoriasis Recurrent syncope (06/19/22) Renal calculi RLS (restless legs syndrome) Sex disorder Suicidal ideation SVT (supraventricular tachycardia) TIA (transient ischemic attack) Urolithiasis Venous insufficiency of both lower extremities Vertigo Walker as ambulation aid Wears glasses Home Medications finasteride 5 mg tablet 5 mg PO DAILY PROSTATE #90 tabs 11/03/18 [Rx Last Taken 10/05/22] blood pressure monitor #1 ea 03/13/21 [Rx Last Taken Unknown] lancets 30 gauge ([employer] Del[employer]ova Lancets) #200 ea 10/26/21 [Rx Last Taken Unknown] pramipexole 1 mg tablet (Mirapex) 2 mg PO QHS RLS #180 tabs 12/10/21 [Rx Last Taken 10/05/22] pen needle, diabetic 31 gauge x 3/16 (BD Ultra-Fine Mini Pen Needle) #100 ea 01/23/22 [Rx Last Taken Unknown] flecainide 100 mg tablet 100 mg PO Q12H HEART RATE #180 tabs 04/01/22 [Rx Last Taken 10/05/22] sertraline 25 mg tablet 25 mg PO DAILY DEPRESSION 04/05/22 [History Last Taken 10/05/22] compress.stocking,knee,reg,lrg #2 ea 07/05/22 [Rx Last Taken Unknown] metoprolol succinate 25 mg tablet,extended release 24 hr 12.5 mg PO DAILY BP 07/16/22 [History Last Taken 10/05/22] ferrous sulfate 325 mg (65 mg iron) tablet 325 mg PO TH supplement 07/31/22 [History Last Taken 10/03/22] furosemide 40 mg tablet 40 mg PO DAILY FLUID 07/31/22 [History Last Taken 10/05/22] blood sugar diagnostic #100 ea 09/05/22 [Rx Last Taken Unknown] meclizine 25 mg tablet 25 mg PO TID PRN dizziness #20 tabs 10/01/22 [Rx Last Taken 10/05/22] acetaminophen 500 mg tablet 1,000 mg PO Q6H PRN Pain 10/06/22 [History Last Taken 10/06/22 03:00] amlodipine 10 mg tablet 5 mg PO DAILY BP 10/06/22 [History Last Taken 10/05/22] dulaglutide 4.5 mg/0.5 mL subcutaneous pen injector 4.5 mg subcut .COMPLEX DM 10/06/22 [History Last Taken 10/05/22] ergocalciferol (vitamin D2) 1,250 mcg (50,000 unit) capsule 50,000 unit PO QMONTH SUPPLEMENT 10/06/22 [History Last Taken 09/18/22] famotidine 40 mg tablet 40 mg PO DAILY GERD 10/06/22 [History Last Taken 10/05/22] hydralazine 50 mg tablet 50 mg PO BID BP 10/06/22 [History Last Taken 10/05/22] insulin glargine 100 unit/mL (3 mL) subcutaneous pen 30 unit subcut QAM DM 10/06/22 [History Last Taken 10/05/22] olmesartan 40 mg tablet 20 mg PO BID HEART 10/06/22 [History Last Taken 10/05/22] progesterone micronized 100 mg capsule 100 mg PO QAM HORMONE 10/06/22 [History Last Taken 10/05/22] simvastatin 20 mg tablet 20 mg PO QHS CHOLESTEROL 10/06/22 [History Last Taken 10/05/22] spironolactone 50 mg tablet 25 mg PO DAILY FLUID 10/06/22 [History Last Taken 10/05/22] tirzepatide 5 mg/0.5 mL subcutaneous pen injector (Mounjaro) 5 mg subcut QWEEK DM 10/06/22 [History Last Taken Unknown] Allergy/AdvReac Type Severity Reaction Status Date / Time hydrocodone bitartrate AdvReac Severe Other Verified 10/09/22 23:51 [From Vicodin] hydroxyzine AdvReac Severe Other Verified 10/09/22 23:51 Family History Father Diabetes Hypertension Cancer Lung cancer Mother Hypertension CVA (cerebral vascular accident) Sister Diabetes Son Diabetes Surgical History History of cardioversion (2015) History of cataract surgery History of left heart catheterization (02/16/13) History of lithotripsy (11/2020) History of loop recorder (06/26/22) History of radiofrequency ablation procedure for cardiac arrhythmia (02/05/06) history of right knee cap fracture History of right knee surgery Status post laser lithotripsy of ureteral calculus Status post left foot surgery STENT PLACEMENT FOR KIDNEY STONE Social History household members: spouse housing: house Smoking Status: Never smoker how long ago did patient quit smokin second hand exposure: No alcohol intake: never substance use type: does not use caffeine: No what type of physical activity do you participate in: none seatbelt use: always do you feel safe at home: Yes ROS Constitutional Constitutional: Denies change in weight, chills or headache(s) Eyes Eyes: Denies change in eye color, change in vision or double vision ENT HEENT: Denies change in voice, epistaxis or facial pain Cardiovascular Cardiovascular: Denies abdominal edema, chest pain at rest or dyspnea Respiratory/Chest Respiratory/Chest: Denies change in phlegm color, dusky skin or dyspnea Gastrointestinal Gastrointestinal: Denies bloating, cramping or fecal incontinence Physical Exam Narrative Patient alert oriented x3. Vascular: Dorsalis pedis pulses monophasic upon Doppler examination. Perfora ting peroneal and posterior tibial pulses noted to be biphasic. This was limited to the right lower extremity. There is brisk capillary fill time to all digits on the right lower extremity. Skin appears to be soft and supple. There is noted to be diffuse pitting edema +1 to bilateral ankles. Neurologic: No to be light touch protective sensation diminished to the forefoot bilaterally. No evidence of clonus or hyperreflexia on exam. Dermatologic: No evidence of focal erythema edema suggestive of acute gout flare. Musculoskeletal: Patient demonstrates flatfoot deformity bilaterally with history of reconstruction to left foot. There is exquisite tenderness along the course of the posterior tibial tendon. Patient unable to invert foot. Lab / Micro Data Result Diagrams: 10/10/22 04:24 10/10/22 04:24 Labs: Laboratory Results - last 24 hr 10/10/22 00:38: WBC 8.7, RBC 3.47 L, Hgb 10.5 L, Hct 32.8 L, MCV 94.5 H, MCH 3 0.3, MCHC 32.0, RDW Std Deviation 46.8 H, RDW Coeff of Flavio 13.5, Plt Count 183, MPV 9.5, Immature Gran % (Auto) 0.300, Neut % (Auto) 69.1, Lymph % (Auto) 15.9 L , [place] % (Auto) 11.3 H, Eos % (Auto) 3.1, Baso % (Auto) 0.3, Absolute Neuts (auto) 6.0, Absolute Lymphs (auto) 1.38, Nucleated RBC % 0 10/10/22 00:38: D-Dimer Quant (PE/DVT) 0.80 H* 10/10/22 00:38: Sodium 139, Potassium 4.4, Chloride 104, Carbon Dioxide 24.0, Anion Gap 11, BUN 67 H, Creatinine 2.58 H, Estim Creat Clear Calc 23.81, Est GFR (MDRD) Af Amer 31 L, Est GFR (MDRD) Non-Af 25 L, BUN/Creatinine Ratio 26.0 H, Glucose 154 H, Uric Acid 11.0 H, Calcium 9.0 10/10/22 04:24: WBC 7.5, RBC 3.36 L, Hgb 10.3 L, Hct 31.7 L, MCV 94.3 H, MCH 30.7, MCHC 32.5, RDW Std Deviation 46.7 H, RDW Coeff of Flavio 13.5, Plt Count 183, MPV 9.8, Immature Gran % (Auto) 0.400, Neut % (Auto) 66.4, Lymph % (Auto) 17.7 L , [place] % (Auto) 11.5 H, Eos % (Auto) 3.6, Baso % (Auto) 0.4, Absolute Neuts (auto) 5.0, Absolute Lymphs (auto) 1.32, Nucleated RBC % 0 10/10/22 04:24: Sodium 137, Potassium 4.5, Chloride 106, Carbon Dioxide 24.0, Anion Gap 7, BUN 67 H, Creatinine 2.42 H, Estim Creat Clear Calc 25.39, Est GFR (MDRD) Af Amer 33 L, Est GFR (MDRD) Non-Af 27 L, BUN/Creatinine Ratio 27.7 H, Glucose 141 H, Calcium 8.9, Total Bilirubin 0.50, AST 24, ALT 24, Alkaline Phosphatase 69, Total Protein 6.6, Albumin 3.2, Globulin 3.4, Albumin/Globulin Ratio 0.9 10/10/22 06:14: POC Glucose 126 H Radiology Impression Foot X-Ray 10/10/22 00:25 IMPRESSION: No acute findings in the right foot. Electronically Signed: Jorge Luis Hewitt MD at 1:09 EST ,
[2022-10-10] MEDS: Acetaminophen 325 MG Tablet 650 MG PO (09:39)
[2022-10-10] MEDS: Finasteride 5 MG Tablet PO (09:40)
[2022-10-10] MEDS: Metoprolol(XL)Succ 25 MG Tablet 12.5 MG PO (09:40)
[2022-10-10] MEDS: Ferrous Sulfate 325 MG Tablet PO (09:40)
[2022-10-10] MEDS: oxyCODONE 5 MG Tablet PO (09:40)
[2022-10-10] MEDS: amLODIPine 5 MG Tablet PO (09:42)
[2022-10-10] MEDS: hydrALAZINE 50 MG Tablet PO ×2 (09:42→22:46)
[2022-10-10] MEDS: Pantoprazole Sodium 40 MG Tablet PO (09:42)
[2022-10-10] MEDS: Sertraline 50 MG Tablet 25 MG PO (09:42)
[2022-10-10] MEDS: Heparin Injection (Vial) 5,000 UNIT/ML VIAL 5000 UNIT SC ×2 (09:44→22:46)
[2022-10-10] MEDS: Insulin Glargine-YFGN 100 UNIT/ML Pen 30 UNIT SC (09:45)
--- NOTE | 2022-10-10 12:02 | CASEMGMT ---
Therapy and physician are recommending longterm facility. SW met with patient and his . Introduced self and role at [facility]. SW explained recommendations and they both agreed. SW provided patient with a list of longterm facility providers including quality and resource use data and consistent with patient?s preferred geographic region, medical needs, and insurance network were provided from the [facility]. Patient said he has been to [facility] before and he like their therapy. Patient asked that a referral be sent there. Patient also provided SW with a copy of his Healthcare Power of Sales Program Coordinator and Healthcare Living Will. SW copied documents and returned them to patient. Patient then asked SW to send referrals to [facility] and [facility]. SW sent referrals to all 3 facilities via [facility]. Naz ANGELES
[2022-10-10] MEDS: Insulin Lispro 100 UNIT/ML INSULN.PEN SC ×3 (12:13→22:47)
--- NOTE | 2022-10-10 13:50 | PN.HOSP_ITS ---
Reason for Visit Reason for Visit: Diagnoses Type 2 diabetes mellitus with diabetic polyneuropathy (10/10/22) Gout, unspecified (10/10/22) Posterior tibial tendinitis, right leg (10/10/22) Acute kidney failure, unspecified (10/10/22) Subjective Subjective Patient seen and examined. He was admitted with a complaint of right foot pain and was unable to weight-bear on the foot. He was also thought that the right foot was a bit more swollen. X-ray of the right foot showed no acute findings. He has been managed for debility due to right foot pain with concern for acute gout flareup. Patient still complains of pain in his right foot. He denies any fever, chills, palpitations or dizziness or any other symptoms. Review of systems otherwise negative. Podiatry reviewed him and ordered MRI of the right foot for further evaluation. Objective Data Objective Data Vital Signs: Vital Signs Temp Pulse Resp BP Pulse Ox O2 Del Method 97.7 F L 74 17 124/52 H 93 Room Air 10/10/22 09:29 10/10/22 09:42 10/10/22 09:29 10/10/22 09:29 10/10/22 11:18 10/10/22 11:18 Oxygen Delivery Method Room Air Weight: 281 lb 12.012 oz Body Mass Index (BMI) 38.2 Intake & Output: Intake and Output for Last 24 Hours 10/08/22 10/09/22 10/10/22 23:59 23:59 23:59 Intake Total 240 / 240 Balance 240 / 240 Lab / Micro Data Result Diagrams: 10/10/22 04:24 10/10/22 04:24 Labs: Laboratory Results - last 24 hr 10/10/22 00:38: WBC 8.7, RBC 3.47 L, Hgb 10.5 L, Hct 32.8 L, MCV 94.5 H, MCH 30.3, MCHC 32.0, RDW Std Deviation 46.8 H, RDW Coeff of Flavio 13.5, Plt Count 183, MPV 9.5, Immature Gran % (Auto) 0.300, Neut % (Auto) 69.1, Lymph % (Auto) 15.9 L , [place] % (Auto) 11.3 H, Eos % (Auto) 3.1, Baso % (Auto) 0.3, Absolute Neuts (auto) 6.0, Absolute Lymphs (auto) 1.38, Nucleated RBC % 0 10/10/22 00:38: D-Dimer Quant (PE/DVT) 0.80 H* 10/10/22 00:38: Sodium 139, Potassium 4.4, Chloride 104, Carbon Dioxide 24.0, Anion Gap 11, BUN 67 H, Creatinine 2.58 H, Estim Creat Clear Calc 23.81, Est GFR (MDRD) Af Amer 31 L, Est GFR (MDRD) Non-Af 25 L, BUN/Creatinine Ratio 26.0 H, Glucose 154 H, Uric Acid 11.0 H, Calcium 9.0 10/10/22 04:24: WBC 7.5, RBC 3.36 L, Hgb 10.3 L, Hct 31.7 L, MCV 94.3 H, MCH 30.7, MCHC 32.5, RDW Std Deviation 46.7 H, RDW Coeff of Flavio 13.5, Plt Count 183, MPV 9.8, Immature Gran % (Auto) 0.400, Neut % (Auto) 66.4, Lymph % (Auto) 17.7 L , [place] % (Auto) 11.5 H, Eos % (Auto) 3.6, Baso % (Auto) 0.4, Absolute Neuts (auto) 5.0, Absolute Lymphs (auto) 1.32, Nucleated RBC % 0 10/10/22 04:24: Sodium 137, Potassium 4.5, Chloride 106, Carbon Dioxide 24.0, Anion Gap 7, BUN 67 H, Creatinine 2.42 H, Estim Creat Clear Calc 25.39, Est GFR (MDRD) Af Amer 33 L, Est GFR (MDRD) Non-Af 27 L, BUN/Creatinine Ratio 27.7 H, Glucose 141 H, Calcium 8.9, Total Bilirubin 0.50, AST 24, ALT 24, Alkaline Phosphatase 69, Total Protein 6.6, Albumin 3.2, Globulin 3.4, Albumin/Globulin Ratio 0.9 10/10/22 06:14: POC Glucose 126 H Radiography Diagnostic Testing: Radiology Impression Foot X-Ray 10/10/22 00:25 IMPRESSION: No acute findings in the right foot. Electronically Signed: Jorge Luis Hewitt MD at 1:09 EST , Physical Exam Const alert, oriented x3 and no apparent distress Constitutional Narrative: Obese HEENT head/scalp atraumatic, moist oral mucous membranes and oropharynx normal Head and Scalp: normocephalic Mouth: oral and palatal mucosa normal Eyes PERRL, EOMs intact bilaterally and conjunctivae normal Neck no lymphadenopathy, supple and no JVD Resp normal respiratory effort, no retractions, no use of accessory muscles and clear to auscultation bilaterally Cardio regular rate, regular rhythm, S1 normal heart sound, S2 normal heart sound and no murmurs GI normal to inspection, nondistended, normoactive bowel sounds, soft to palpation, non-tender and non-distended Extremity Extremity Narrative: right ankle mildly swollen, tender with movement. 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 Uric acid was elevated at 11. * unable to get colchicine or NSAIDs due to HORACE * PT/OT on board * fall precautions * #HORACE on CKD III * Creatinine was 2.58 on admission with a baseline of around 1.29. Creatinine has trended down slightly to 2.42 today. * Will trend. * will hydrate very gently with IVF * #Heart failure preserved ejection fraction: We will hold Lasix due to HORACE. Not in exacerbation. Stable. #Bradycardia * Was recently admitted with a complaint of chest pain and bradycardia. Troponins were negative and he had cardiac cath which showed clean coronaries. He was due to come back to the hospital on 10/14/2022 for pacemaker insertion. * If patient is still here on Friday, he can have the pacemaker insertion done before his discharge. * #Type 2 diabetes mellitus: * On Lantus 30 units daily as well as dulaglutide * Insulin Sliding scale. Accu-Cheks ACHS. #MACHELLE: On CPAP nightly. BPH: On finasteride #Paroxysmal A-fib: On flecainide and metoprolol. Not anticoagulated. DVT prophylaxis: Heparin Total time spent on seeing patient [id number], examining patient, review of chart and specialist notes, discussion of plan with patient, ancillary staff and nursing staff as well as documentation: 35 minutes. Charges/Coding Visit Charges Inpatient E&M: 53613 Subs Hosp L2
--- NOTE | 2022-10-10 14:26 | CASEMGMT ---
SIMONA received a call from [facility] and they are full for male beds. [facility] accepted patient. SIMONA is still waiting on [place]. SIMONA went to patient's room and updated patient and his . Naz ANGELES
--- NOTE | 2022-10-10 14:53 | CHAPLAIN ---
Type of Pastoral Visit _x__ Initial Visit ___ Follow-up Visit ___ On-call Visit ___ General Patient Visit ___ Spiritual Assessment ___ Family Conference ___ Bereavement ___ Rapid Response ___ Code Blue ___ Other (describe below) Pastoral Care Referral From _x__ Patient ___ Family ___ Nurse ___ Physician ___ Field Crew Chief ___ Bell Spinner ___ Other (describe below) Sacrament/Intervention _x__ Active listening ___ Anointing ___ Mosque ___ Bereavement ___ Communion ___ Ariadna exploration ___ ___ Life review _x__ Prayer ___ Reconciliation ___ Sacrament of Sick _x__ Supportive presence ___ Wedding ___ Other (describe below) Pastoral Comments patient was discharged recently and has returned; pt is resting in bed ready to eat lunch; offer of support; details about return given; pt has some scheduled surgeries coming up as well; pt welcomes visit and prayer; pt is talkative and gives explanations
--- NOTE | 2022-10-10 16:00 | CASEMGMT ---
[facility] accepted patient. SW notified patient's as patient was down at a procedure. She will ask patient which facility he wants. SIMONA let her know [facility] is getting full so he could possibly lose that bed. Naz Phipps MSW KARTHIK
--- NOTE | 2022-10-10 16:17 | CASEMGMT ---
SW checked back with patient and he would like to go to [facility]. SW notified [facility] and [facility]. Plan: [facility] at d/c pending patient being medically ready. Naz ANGELES
[2022-10-10] MEDS: 0.9% Normal Saline 1,000 ML 75 ML IV (16:29)
[2022-10-10 18:01] LABS: Bedside Glucose 306 mg/dL (74-106)
[2022-10-10] MEDS: Atorvastatin Calcium 10 MG Tablet PO (22:47)
[2022-10-10] MEDS: Pramipexole Di-HCl 1 MG Tablet 2 MG PO (22:48)
[2022-10-10 23:10] LABS: Bedside Glucose 220 mg/dL (74-106)
[2022-10-11] VITALS (8 sets, daily range): BP systolic 115–170; BP diastolic 56–98; PULSE 63–90; RESP 17–18; TEMP 36.4–36.7; O2SAT 92–96; BMI 38.2
[2022-10-11] MEDS: Flecainide 100 MG Tablet PO ×2 (03:56→17:34)
[2022-10-11 07:00] LABS: Bedside Glucose 131 mg/dL (74-106)
--- NOTE | 2022-10-11 07:42 | PCM.PROGNOTE ---
Subjective Subjective Patient was seen this morning for follow up on right foot. He relates foot is feeling significantly better. He has no new complaints. Objective Data Objective Data Vital Signs: Vital Signs Temp Pulse Resp BP Pulse Ox O2 Del Method 97.8 F 67 18 115/98 H 96 Room Air 10/11/22 03:55 10/11/22 03:55 10/11/22 03:55 10/11/22 03:55 10/11/22 03:55 10/11/22 03:55 Oxygen Delivery Method Room Air Weight: 127.8 kg Body Mass Index (BMI) 38.2 Intake & Output: Intake and Output for Last 24 Hours 10/09/22 10/10/22 10/11/22 23:59 23:59 23:59 Intake Total 1480 / 1480 1000 / 1000 Balance 1480 / 1480 1000 / 1000 Lab / Micro Data Result Diagrams: 10/11/22 08:35 10/11/22 08:35 Labs: Laboratory Results - last 24 hr 10/10/22 17:19: POC Glucose 306 H 10/10/22 22:42: POC Glucose 220 H 10/11/22 06:17: POC Glucose 131 H Radiography Diagnostic Testing: Radiology Impression Extremity Arterial Study 10/10/22 08:37 Interpretation Summary Right NANCY 1.25, normal. Doppler/PVR waveforms of the right leg normal at rest. TBI diminished, pedal/digit disease vs spasm. Left NANCY 0.94, mild arterial insufficiency. Doppler/PVR waveforms of the left leg reveal no focal stenosis. Digit waveforms and TBI diminished, pedal/digit disease Ordering Physician: Edward Carr Performed By: BOBBY PARADA Kenney Lower Extremity MRI 10/10/22 08:37 IMPRESSION: 1. Small joint effusions. 2. Mild degenerative changes of the talus. Electronically Signed: Chichi Varela MD at 16:22 EST , Venous Doppler Study 10/10/22 08:37 Interpretation Summary Chronic deep vein thrombosis is noted in the left tibioperoneal trunk vein. Deep veins of the right lower extremity are patent and compressible segmentally. There is no evidence of right lower extremity deep vein thrombosis. The right great saphenous vein appears patent and compressible segmentally. Positive for reflux in the left popliteal vein Ordering Physician: Edward Carr Referring Physician: Tosha Shrestha Performed By: Bobby Parada, NADIRA Physical Exam Narrative Right foot much improved today with no pain on ROM, and no pain with palpation, no open lesions, no cellulitis, no drainage, no fluctuance, no crepitus, there is chronic flatfoot/PTTD, PT pulse strong bilateral foot. 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 It is noted his uric acid was significantly elevated. Reviewed MRI findings. Discussed with patient. He notes significant improvement today - he has been on prednisone. Given the history and findings continue to treat as gout flare. He is on prednisone at this time. Reviewed gout diet to help prevent flare ups. Continue with feet elevation, compression therapy, and good shoegear when on feet. Patient to follow up with us as outpatient.
[2022-10-11 08:11] LABS: Bedside Glucose 300 mg/dL (74-106)
[2022-10-11 08:11] LABS: Bedside Glucose 310 mg/dL (74-106)
[2022-10-11 08:54] LABS: Absolute Lymphocyte Count 1.52 X10^3/uL (0.83-4.51); Absolute Neutrophil Count 5.4 X10^3/uL (2.0-7.7); Basophil# 0.04 X10^3/uL; Basophil% 0.5 % (0-1); Eosinophil# 0.19 X10^3/uL; Eosinophils% 2.3 % (0-5); Hematocrit 33.9 % (40-54); Hemoglobin 10.5 g/dL (13.0-16.5); Lymphocyte # 1.52 X10^3/ul (0.83-4.51); Lymphocyte % 18.8 % (19-41); Mean Corpuscular Hgb 29.8 pg (27.0-32.0); Mean Corpuscular Volume 96.3 fL (80-94); Mean Platelet Vol. 9.9 fl (6.2-12.0); Monocyte# 0.92 X10^3/uL; Monocyte% 11.4 % (0-10); NRBC Flagged by Analyzer 0 % (0-5); Neutrophil # 5.36 X10^3/uL (2.7-7.7); Neutrophil % 66.3 % (47-70); Platelet Count 195 K/mm3 (150-450); RBC Distribution Width CV 13.2 % (11.6-14.6); Red Blood Count 3.52 M/mm3 (4.6-6.2); White Blood Count 8.1 K/mm3 (4.4-11.0)
[2022-10-11] MEDS: Finasteride 5 MG Tablet PO (09:01)
[2022-10-11] MEDS: predniSONE 20 MG Tablet 60 MG PO (09:01)
[2022-10-11] MEDS: PROGESTERONE, MICRONIZED 100 MG CAPSULE PO (09:01)
[2022-10-11] MEDS: Pantoprazole Sodium 40 MG Tablet PO (09:02)
[2022-10-11] MEDS: amLODIPine 5 MG Tablet PO (09:02)
[2022-10-11] MEDS: Metoprolol(XL)Succ 25 MG Tablet 12.5 MG PO (09:02)
[2022-10-11] MEDS: hydrALAZINE 50 MG Tablet PO ×2 (09:02→21:37)
[2022-10-11] MEDS: Sertraline 50 MG Tablet 25 MG PO (09:03)
[2022-10-11] MEDS: Heparin Injection (Vial) 5,000 UNIT/ML VIAL 5000 UNIT SC ×2 (09:04→21:37)
[2022-10-11] MEDS: Insulin Glargine-YFGN 100 UNIT/ML Pen 30 UNIT SC (09:04)
[2022-10-11 09:08] LABS: Anion Gap 5 (5-15); BUN 72 mg/dL (7-18); BUN/Creat Ratio 32.1 RATIO (10-20); Calcium,Total 8.6 mg/dL (8.5-10.1); Chloride 108 mmol/L (98-107); Creatinine, Serum 2.24 mg/dL (0.70-1.30); EST Glomerular Filtration Rate 30 mL/min (>60); Est Glom Filt Rate - Afr Amer 36 mL/min (>60); Estimated Creatinine Clearance 27.43 ml/min; Glucose 155 mg/dL (74-106); Potassium 5.4 mmol/L (3.5-5.1); Sodium Level 137 mmol/L (136-145)
--- NOTE | 2022-10-11 12:10 | CASEMGMT ---
TIMOTHY LOPEZ updated by therapy that patient is safe to discharge home with HHC. TIMOTHY CM back to discuss HHC with patient. Patient has had [facility] in the past and prefers them for HHC, declined list. TIMOTHY LOPEZ called [facility] and made referral and they are able to accept the patient for PT/OT. CM updated the patient regarding acceptance. Patient is ok with start of care for next week.
[2022-10-11 12:20] LABS: Bedside Glucose 162 mg/dL (74-106)
[2022-10-11] MEDS: Insulin Lispro 100 UNIT/ML INSULN.PEN SC ×3 (12:22→21:43)
--- NOTE | 2022-10-11 12:23 | PN.HOSP_ITS ---
Reason for Visit Reason for Visit: Diagnoses Type 2 diabetes mellitus with diabetic polyneuropathy (10/10/22) Gout, unspecified (10/10/22) Posterior tibial tendinitis, right leg (10/10/22) Acute kidney failure, unspecified (10/10/22) Subjective Subjective Patient seen and examined. He feels much better today. The pain in his ankle has improved and he is now able to weight-bear better on it. Review of systems otherwise negative. MRI of the foot done showed no abnormality. He has remained hemodynamically stable. Objective Data Objective Data Vital Signs: Vital Signs Temp Pulse Resp BP Pulse Ox O2 Del Method 97.6 F L 64 17 147/56 H 95 Room Air 10/11/22 08:54 10/11/22 09:02 10/11/22 08:54 10/11/22 08:54 10/11/22 08:54 10/11/22 09:00 Oxygen Delivery Method Room Air Weight: 281 lb 12.012 oz Body Mass Index (BMI) 38.2 Intake & Output: Intake and Output for Last 24 Hours 10/09/22 10/10/22 10/11/22 23:59 23:59 23:59 Intake Total 1480 / 1480 1000 / 1000 Balance 1480 / 1480 1000 / 1000 Lab / Micro Data Result Diagrams: 10/11/22 08:35 10/11/22 08:35 Labs: Laboratory Results - last 24 hr 10/10/22 12:08: POC Glucose 300 H 10/10/22 12:10: POC Glucose 310 H 10/10/22 17:19: POC Glucose 306 H 10/10/22 22:42: POC Glucose 220 H 10/11/22 06:17: POC Glucose 131 H 10/11/22 08:35: WBC 8.1, RBC 3.52 L, Hgb 10.5 L, Hct 33.9 L, MCV 96.3 H, MCH 29.8, MCHC 31.0 L, RDW Std Deviation 47.0 H, RDW Coeff of Flavio 13.2, Plt Count 195, MPV 9.9, Immature Gran % (Auto) 0.700, Neut % (Auto) 66.3, Lymph % (Auto) 18.8 L, [place] % (Auto) 11.4 H, Eos % (Auto) 2.3, Baso % (Auto) 0.5, Absolute Neuts (auto) 5.4, Absolute Lymphs (auto) 1.52, Nucleated RBC % 0 10/11/22 08:35: Sodium 137, Potassium 5.4 H, Chloride 108 H, Carbon Dioxide 24.0, Anion Gap 5, BUN 72 H, Creatinine 2.24 H, Estim Creat Clear Calc 27.43, Est GFR (MDRD) Af Amer 36 L, Est GFR (MDRD) Non-Af 30 L, BUN/Creatinine Ratio 32.1 H, Glucose 155 H, Calcium 8.6 10/11/22 11:22: POC Glucose 162 H Radiography Diagnostic Testing: Radiology Impression Extremity Arterial Study 10/10/22 08:37 Interpretation Summary Right NANCY 1.25, normal. Doppler/PVR waveforms of the right leg normal at rest. TBI diminished, pedal/digit disease vs spasm. Left NANCY 0.94, mild arterial insufficiency. Doppler/PVR waveforms of the left leg reveal no focal stenosis. Digit waveforms and TBI diminished, pedal/digit disease Ordering Physician: Edward Carr Performed By: BOBBY PARADA [facility] Lower Extremity MRI 10/10/22 08:37 IMPRESSION: 1. Small joint effusions. 2. Mild degenerative changes of the talus. Electronically Signed: Chichi Varela MD at 16:22 EST Reading Location ID and State: [id number] / Tel , Service support , Venous Doppler Study 10/10/22 08:37 Interpretation Summary Chronic deep vein thrombosis is noted in the left tibioperoneal trunk vein. Deep veins of the right lower extremity are patent and compressible segmentally. There is no evidence of right lower extremity deep vein thrombosis. The right great saphenous vein appears patent and compressible segmentally. Positive for reflux in the left popliteal vein Ordering Physician: Edward Carr Referring Physician: Tosha Shrestha Performed By: Bobby Parada RVT Physical Exam Const alert, oriented x3 and no apparent distress Constitutional Narrative: Obese HEENT head/scalp atraumatic, moist oral mucous membranes and oropharynx normal Head and Scalp: normocephalic Mouth: oral and palatal mucosa normal Eyes PERRL, EOMs intact bilaterally and conjunctivae normal Neck no lymphadenopathy, supple and no JVD Resp normal respiratory effort, no retractions, no use of accessory muscles and clear to auscultation bilaterally Cardio regular rate, regular rhythm, S1 normal heart sound, S2 normal heart sound and no murmurs GI normal to inspection, nondistended, normoactive bowel sounds, soft to palpation, non-tender and non-distended Extremity Extremity Narrative: right ankle mildly swollen, tenderness has resolved. Able to flex and extend ankle. Neuro oriented x3, CN's II-XII intact bilaterally and moves all extremities Sensorium / Orientation: awake and alert Motor Exam: strength 5/5 throughout Psych affect normal Assessment & Plan Assessment/Plan (1) 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: (2) Acute kidney injury: (3) Gout flare: PLAN: Plan #RIght ankle pain, thought to be due to acute gout flare up * Pain has improved markedly * He is not able to weight-bear on the foot. MRI of the foot shows small joint effusions and mild degenerative changes of the talus but no other acute features. * Symptoms improved on the prednisone so this was thought to be due to gout. Also his uric acid was elevated. * xray of the right foot showed no acute findings * podiatry on board; * fall precautions * #HORACE on CKD III * Creatinine was 2.58 on admission with a baseline of around 1.29. * Cr has trended down some more, and is 2.24 today. * continue gentle hydration with IVF and continue trending * #Heart failure preserved ejection fraction: We will hold Lasix due to HORACE. Not in exacerbation. Stable. #Bradycardia * Was recently admitted with a complaint of chest pain and bradycardia. Troponins were negative and he had cardiac cath which showed clean coronaries. He was due to come back to the hospital on 10/14/2022 for pacemaker insertion. * If patient is still here on Friday, he can have the pacemaker insertion done before his discharge. * If he is discharged, to have pacemaker inserted on Friday * #Type 2 diabetes mellitus: * On Lantus 30 units daily as well as dulaglutide * Insulin Sliding scale. Accu-Cheks ACHS. #MACHELLE: On CPAP nightly. BPH: On finasteride #Paroxysmal A-fib: On flecainide and metoprolol. Not anticoagulated. DVT prophylaxis: Heparin Total time spent on seeing patient [id number], examining patient, review of chart and specialist notes, discussion of plan with patient, ancillary staff and nursing staff as well as documentation: 36 minutes. Charges/Coding Visit Charges Inpatient E&M: 35070 Subs Hosp L2
--- NOTE | 2022-10-11 13:22 | CASEMGMT ---
Patient has decided to go home with home health and therapy feels this would be fine. RN CM aware and will arrange home health. SW notified [facility]. Naz Phipps [employer] APPRENTICE KARTHIK
[2022-10-11 17:10] LABS: Bedside Glucose 288 mg/dL (74-106)
[2022-10-11] MEDS: Pramipexole Di-HCl 1 MG Tablet 2 MG PO (21:36)
[2022-10-11] MEDS: Atorvastatin Calcium 10 MG Tablet PO (21:37)
[2022-10-11 23:01] LABS: Bedside Glucose 340 mg/dL (74-106)
[2022-10-12] VITALS (11 sets, daily range): BP systolic 138–182; BP diastolic 50–71; PULSE 62–78; RESP 14–20; TEMP 36.3–36.7; O2SAT 94–97; BMI 38.2
[2022-10-12] MEDS: Flecainide 100 MG Tablet PO ×2 (03:46→16:21)
[2022-10-12] MEDS: Insulin Lispro 100 UNIT/ML INSULN.PEN SC ×3 (06:25→16:19)
[2022-10-12 07:15] LABS: Bedside Glucose 153 mg/dL (74-106)
[2022-10-12 07:26] LABS: Absolute Lymphocyte Count 0.91 X10^3/uL (0.83-4.51); Absolute Neutrophil Count 5.3 X10^3/uL (2.0-7.7); Basophil# 0.02 X10^3/uL; Basophil% 0.3 % (0-1); Eosinophil# 0.02 X10^3/uL; Eosinophils% 0.3 % (0-5); Hematocrit 31.9 % (40-54); Lymphocyte # 0.91 X10^3/ul (0.83-4.51); Lymphocyte % 13.1 % (19-41); Mean Corp Hgb Conc 31.3 g/dL (32-36); Mean Corpuscular Hgb 29.9 pg (27.0-32.0); Mean Corpuscular Volume 95.5 fL (80-94); Mean Platelet Vol. 10.1 fl (6.2-12.0); Monocyte# 0.68 X10^3/uL; Monocyte% 9.8 % (0-10); NRBC Flagged by Analyzer 0 % (0-5); Neutrophil # 5.28 X10^3/uL (2.7-7.7); Neutrophil % 75.6 % (47-70); Platelet Count 185 K/mm3 (150-450); RBC Distribution Width CV 13.3 % (11.6-14.6); RBC Distribution Width SD 46.5 fl (35.1-43.9); Red Blood Count 3.34 M/mm3 (4.6-6.2)
[2022-10-12 08:05] LABS: BUN 79 mg/dL (7-18); Creatinine, Serum 2.07 mg/dL (0.70-1.30); Estimated Creatinine Clearance 29.68 ml/min; Glucose 171 mg/dL (74-106)
[2022-10-12 08:06] LABS: Anion Gap 8 (5-15); BUN/Creat Ratio 38.2 RATIO (10-20); Calcium,Total 8.9 mg/dL (8.5-10.1); Chloride 107 mmol/L (98-107); EST Glomerular Filtration Rate 33 mL/min (>60); Est Glom Filt Rate - Afr Amer 40 mL/min (>60); Potassium 5.8 mmol/L (3.5-5.1); Sodium Level 137 mmol/L (136-145)
[2022-10-12] MEDS: PROGESTERONE, MICRONIZED 100 MG CAPSULE PO ×2 (09:52)
[2022-10-12] MEDS: Heparin Injection (Vial) 5,000 UNIT/ML VIAL 5000 UNIT SC ×2 (09:53→22:24)
[2022-10-12] MEDS: Finasteride 5 MG Tablet PO (09:53)
[2022-10-12] MEDS: predniSONE 20 MG Tablet 60 MG PO (09:54)
[2022-10-12] MEDS: amLODIPine 5 MG Tablet PO (09:54)
[2022-10-12] MEDS: hydrALAZINE 50 MG Tablet PO ×2 (09:55→22:22)
[2022-10-12] MEDS: Metoprolol(XL)Succ 25 MG Tablet 12.5 MG PO (09:56)
[2022-10-12] MEDS: Sertraline 50 MG Tablet 25 MG PO (09:57)
[2022-10-12] MEDS: Pantoprazole Sodium 40 MG Tablet PO (09:57)
[2022-10-12] MEDS: Insulin Glargine-YFGN 100 UNIT/ML Pen 30 UNIT SC (10:01)
--- NOTE | 2022-10-12 11:08 | EKG12_ITS ---
Test Reason : increased pot Blood Pressure : / mmHG Vent. Rate : 067 BPM Atrial Rate : 067 BPM P-R Int : 166 ms QRS Dur : 116 ms QT Int : 442 ms P-R-T Axes : 011 077 060 degrees QTc Int : 467 ms Normal sinus rhythm Normal ECG No previous ECGs available Confirmed by JORDIN DUNCAN, SYBIL ([id number]), production editor NITZA ROJAS ([id number]) on 10/15/2022 10:06:24 AM Referred By: Radha Confirmed By:SYBIL BRENNER MD
--- NOTE | 2022-10-12 11:10 | PN.HOSP_ITS ---
Reason for Visit Reason for Visit: Diagnoses Type 2 diabetes mellitus with diabetic polyneuropathy (10/10/22) Gout, unspecified (10/10/22) Posterior tibial tendinitis, right leg (10/10/22) Acute kidney failure, unspecified (10/10/22) Subjective Subjective Patient seen and examined. He has no active complaints and had an uneventful night. Pain in his foot is much better. He has been able to ambulate. Review of systems is otherwise negative. his potassium is elevated at 5.8 today. Cr is trending downwards and is 2.07 today. Objective Data Objective Data Vital Signs: Vital Signs Temp Pulse Resp BP Pulse Ox O2 Del Method 97.6 F L 62 15 138/53 H 97 Room Air 10/12/22 09:49 10/12/22 09:56 10/12/22 09:49 10/12/22 09:56 10/12/22 09:49 10/12/22 09:49 Oxygen Delivery Method Room Air Weight: 281 lb 8.485 oz Body Mass Index (BMI) 38.2 Intake & Output: Intake and Output for Last 24 Hours 10/10/22 10/11/22 10/12/22 23:59 23:59 23:59 Intake Total 1480 / 1480 1500 / 1500 Balance 1480 / 1480 1500 / 1500 Lab / Micro Data Result Diagrams: 10/12/22 06:04 10/12/22 06:04 Labs: Laboratory Results - last 24 hr 10/11/22 11:22: POC Glucose 162 H 10/11/22 16:44: POC Glucose 288 H 10/11/22 21:43: POC Glucose 340 H 10/12/22 06:04: WBC 7.0, RBC 3.34 L, Hgb 10.0 L, Hct 31.9 L, MCV 95.5 H, MCH 29.9, MCHC 31.3 L, RDW Std Deviation 46.5 H, RDW Coeff of Flavio 13.3, Plt Count 185, MPV 10.1, Immature Gran % (Auto) 0.900, Neut % (Auto) 75.6 H, Lymph % (Aut o) 13.1 L, [place] % (Auto) 9.8, Eos % (Auto) 0.3, Baso % (Auto) 0.3, Absolute Neuts (auto) 5.3, Absolute Lymphs (auto) 0.91, Nucleated RBC % 0 10/12/22 06:04: Sodium 137, Potassium 5.8 H, Chloride 107, Carbon Dioxide 22.0, Anion Gap 8, BUN 79 H, Creatinine 2.07 H, Estim Creat Clear Calc 29.68, Est GFR (MDRD) Af Amer 40 L, Est GFR (MDRD) Non-Af 33 L, BUN/Creatinine Ratio 38.2 H, Glucose 171 H, Calcium 8.9 10/12/22 06:24: POC Glucose 153 H Physical Exam Const alert, oriented x3 and no apparent distress Constitutional Narrative: Obese HEENT head/scalp atraumatic, moist oral mucous membranes and oropharynx normal Head and Scalp: normocephalic Mouth: oral and palatal mucosa normal Eyes PERRL, EOMs intact bilaterally and conjunctivae normal Neck no lymphadenopathy, supple and no JVD Resp normal respiratory effort, no retractions, no use of accessory muscles and clear to auscultation bilaterally Cardio regular rate, regular rhythm, S1 normal heart sound, S2 normal heart sound and no murmurs GI normal to inspection, nondistended, normoactive bowel sounds, soft to palpation, non-tender and non-distended Extremity Extremity Narrative: right ankle mildly swollen, tenderness has resolved. Able to flex and extend ankle. Able to weight bear on foot. Neuro oriented x3, CN's II-XII intact bilaterally and moves all extremities Sensorium / Orientation: awake and alert Motor Exam: strength 5/5 throughout Psych affect normal Assessment & Plan Assessment/Plan (1) 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: (2) Acute kidney injury: (3) Gout flare: PLAN: Plan #RIght ankle pain, thought to be due to acute gout flare up * Pain has improved markedly * He is not able to weight-bear on the foot. MRI of the foot shows small joint effusions and mild degenerative changes of the talus but no other acute features. * Symptoms improved on the prednisone so this was thought to be due to gout. Also his uric acid was elevated. * xray of the right foot showed no acute findings * podiatry on board * fall precautions * #HORACE on CKD III with hyperkalemia * Cr trending downwards and is 2.07 today; baseline is ~ 1.29 * Potassium was 5.4 yesterday ad is 5.8 today * will give kayexalate and potassium depleting cocktail * trend potassium and Cr; nephro consult if hyperkalemia doesnt improve and Cr trends upwards again. * #Heart failure preserved ejection fraction: We will hold Lasix due to HORACE. Not in exacerbation. Stable. #Bradycardia * Was recently admitted with a complaint of chest pain and bradycardia. Troponins were negative and he had cardiac cath which showed clean coronaries. He was due to come back to the hospital on 10/14/2022 for pacemaker insertion. * If patient is still here on Friday, he can have the pacemaker insertion done before his discharge. * If he is discharged, to have pacemaker inserted on Friday * #Type 2 diabetes mellitus: * On Lantus 30 units daily as well as dulaglutide * Insulin Sliding scale. Accu-Cheks ACHS. #MACHELLE: On CPAP nightly. BPH: On finasteride #Paroxysmal A-fib: On flecainide and metoprolol. Not anticoagulated. DVT prophylaxis: Heparin Total time spent on seeing patient [id number], examining patient, review of ch art and specialist notes, discussion of plan with patient, ancillary staff and nursing staff as well as documentation: 34 minutes. Charges/Coding Visit Charges Inpatient E&M: 73869 Subs Hosp L3
[2022-10-12 11:40] LABS: Bedside Glucose 179 mg/dL (74-106)
[2022-10-12] MEDS: Insulin Lispro 10 UNIT in Syringe 0 ML 6 UNIT IV ×2 (11:49→22:17)
[2022-10-12] MEDS: Calcium Gluconate IV 3 GM in Syringe 1 EACH IV (11:53)
[2022-10-12] MEDS: Dextrose 50%-Water 25 GM/50 ML DISP.SYRIN IV (11:56)
[2022-10-12] MEDS: 0.9% Saline Lock 10 ML Syringe IV (12:11)
[2022-10-12] MEDS: Albuterol *CONC* 2.5mg/0.5mL VIAL.NEB. 10 MG INHALATION (13:21)
[2022-10-12 15:10] LABS: Bedside Glucose 296 mg/dL (74-106)
[2022-10-12] MEDS: Sodium Polystyrene Sulfonate 15 GM/60 ML UDC 30 GM PO ×2 (16:20→22:28)
[2022-10-12 17:11] LABS: Bedside Glucose 300 mg/dL (74-106)
[2022-10-12 20:35] LABS: Anion Gap 10 (5-15); BUN 77 mg/dL (7-18); Calcium,Total 9.7 mg/dL (8.5-10.1); Chloride 107 mmol/L (98-107); Creatinine, Serum 2.08 mg/dL (0.70-1.30); EST Glomerular Filtration Rate 33 mL/min (>60); Est Glom Filt Rate - Afr Amer 39 mL/min (>60); Estimated Creatinine Clearance 29.54 ml/min; Glucose 414 mg/dL (74-106); Potassium 6.4 mmol/L (3.5-5.1); Sodium Level 135 mmol/L (136-145)
--- NOTE | 2022-10-12 21:02 | PCM.HOSP.N ---
Hospitalist Note Repeat BMP for hyperkalemia from 5.8->6.4, will initiate hyperkalemia order set with insulin, dextrose, calcium gluconate, kayexelate and repeat level. Discussed case with Dr. Fontenot who had reviewed the lab and reached out and she has already reviewed with Dr. Hernandez, nephrology.
--- NOTE | 2022-10-12 21:06 | EKG12_ITS ---
Test Reason : MORNING EKG Blood Pressure : / mmHG Vent. Rate : 070 BPM Atrial Rate : 000 BPM P-R Int : 000 ms QRS Dur : 108 ms QT Int : 434 ms P-R-T Axes : 000 071 079 degrees QTc Int : 468 ms Sinus rhythm vs Ectopic Atrial Rhythm Abnormal ECG Confirmed by RIVKA DUNCAN, RAHUL ([id number]), editor news NITZA ROJAS ([id number]) on 10/16/2022 1:23:10 PM Referred By: NATALI Confirmed By:RAHUL TINEO MD
--- NOTE | 2022-10-12 21:30 | NURSING ---
Per nephrology D50 syringe 25gm is to NOT be administered. Medication was marked as not given on OCT.
[2022-10-12] MEDS: Sodium Bicarbonate 50 MEQ/50 ML Vial 100 MEQ IV (21:47)
[2022-10-12] MEDS: Calcium Gluconate 1 GM/10 ML Vial IVP (21:54)
[2022-10-12] MEDS: Pramipexole Di-HCl 1 MG Tablet 2 MG PO (22:22)
[2022-10-12] MEDS: Atorvastatin Calcium 10 MG Tablet PO (22:22)
[2022-10-13] VITALS (9 sets, daily range): BP systolic 128–156; BP diastolic 49–64; PULSE 64–82; RESP 15–18; TEMP 36.5–37; O2SAT 93–99; BMI 38.2
[2022-10-13 00:16] LABS: Anion Gap 11 (5-15); BUN 75 mg/dL (7-18); BUN/Creat Ratio 37.5 RATIO (10-20); Calcium,Total 10.1 mg/dL (8.5-10.1); Chloride 106 mmol/L (98-107); EST Glomerular Filtration Rate 34 mL/min (>60); Est Glom Filt Rate - Afr Amer 41 mL/min (>60); Estimated Creatinine Clearance 30.72 ml/min; Glucose 381 mg/dL (74-106); Potassium 5.7 mmol/L (3.5-5.1); Sodium Level 138 mmol/L (136-145)
[2022-10-13] MEDS: Insulin Lispro 100 UNIT/ML INSULN.PEN SC ×5 (00:23→22:21)
[2022-10-13 00:45] LABS: Bedside Glucose 345 mg/dL (74-106)
[2022-10-13 00:45] LABS: Bedside Glucose 370 mg/dL (74-106)
[2022-10-13] MEDS: Insulin Lispro 100 UNIT/ML INSULN.PEN 10 UNIT SC (00:58)
[2022-10-13] MEDS: Flecainide 100 MG Tablet PO ×2 (03:12→14:44)
[2022-10-13 06:41] LABS: Absolute Lymphocyte Count 1.22 X10^3/uL (0.83-4.51); Absolute Neutrophil Count 8.1 X10^3/uL (2.0-7.7); Basophil# 0.03 X10^3/uL; Basophil% 0.3 % (0-1); Eosinophil# 0.02 X10^3/uL; Eosinophils% 0.2 % (0-5); Hematocrit 31.9 % (40-54); Hemoglobin 10.4 g/dL (13.0-16.5); Lymphocyte # 1.22 X10^3/ul (0.83-4.51); Lymphocyte % 11.4 % (19-41); Mean Corp Hgb Conc 32.6 g/dL (32-36); Mean Corpuscular Hgb 30.1 pg (27.0-32.0); Mean Corpuscular Volume 92.2 fL (80-94); Mean Platelet Vol. 10.3 fl (6.2-12.0); Monocyte# 1.22 X10^3/uL; Monocyte% 11.4 % (0-10); NRBC Flagged by Analyzer 0 % (0-5); Neutrophil # 8.11 X10^3/uL (2.7-7.7); Neutrophil % 75.9 % (47-70); Platelet Count 227 K/mm3 (150-450); RBC Distribution Width CV 13.4 % (11.6-14.6); RBC Distribution Width SD 45.2 fl (35.1-43.9); Red Blood Count 3.46 M/mm3 (4.6-6.2); White Blood Count 10.7 K/mm3 (4.4-11.0)
[2022-10-13 06:50] LABS: Bedside Glucose 166 mg/dL (74-106)
[2022-10-13 07:08] LABS: Anion Gap 8 (5-15); BUN 71 mg/dL (7-18); BUN/Creat Ratio 42.5 RATIO (10-20); Calcium,Total 9.3 mg/dL (8.5-10.1); Chloride 107 mmol/L (98-107); Creatinine, Serum 1.67 mg/dL (0.70-1.30); EST Glomerular Filtration Rate 42 mL/min (>60); Est Glom Filt Rate - Afr Amer 51 mL/min (>60); Estimated Creatinine Clearance 36.79 ml/min; Glucose 161 mg/dL (74-106); Potassium 4.5 mmol/L (3.5-5.1); Sodium Level 138 mmol/L (136-145)
[2022-10-13] MEDS: Insulin Glargine-YFGN 100 UNIT/ML Pen 30 UNIT SC (08:12)
[2022-10-13] MEDS: amLODIPine 5 MG Tablet PO (08:13)
[2022-10-13] MEDS: Finasteride 5 MG Tablet PO (08:14)
[2022-10-13] MEDS: PROGESTERONE, MICRONIZED 100 MG CAPSULE PO (08:14)
[2022-10-13] MEDS: Pramipexole Di-HCl 1 MG Tablet 2 MG PO (08:15)
[2022-10-13] MEDS: Heparin Injection (Vial) 5,000 UNIT/ML VIAL 5000 UNIT SC ×2 (08:15→22:22)
[2022-10-13] MEDS: hydrALAZINE 50 MG Tablet PO ×2 (08:16→22:22)
[2022-10-13] MEDS: predniSONE 20 MG Tablet 60 MG PO (08:16)
[2022-10-13] MEDS: Metoprolol(XL)Succ 25 MG Tablet 12.5 MG PO (08:17)
[2022-10-13] MEDS: Pantoprazole Sodium 40 MG Tablet PO (08:17)
[2022-10-13] MEDS: Sertraline 50 MG Tablet 25 MG PO (08:18)
[2022-10-13 10:11] LABS: Bedside Glucose 117 mg/dL (74-106)
[2022-10-13 11:45] LABS: Bedside Glucose 241 mg/dL (74-106)
--- NOTE | 2022-10-13 13:55 | CON.PCM.RE_ITS ---
Assessment & Plan Assessment/Plan (1) CKD stage 3 due to type 2 diabetes mellitus: PLAN: Plan Hyperkalemia. Likely due to a combination of hyper glycemia, acidosis. Overnight we had given insulin, IV bicarbonate. Today morning potassium is improved. Bicarbonate values have normalized. Currently not on any medications that can potentially cause hyperkalemia. CKD stage IIIb. Appears to have baseline creatinine of 1.5-1.6. Also has some proteinuria between 1.5 to 1.7 g. Presumably due to diabetes. It appears he also has microscopic hematuria. Creatinine is back to baseline. He has an appointment with me in office this at 3 PM This was scheduled before. Congestive heart failure. Likely resume Lasix at the time of discharge. HPI Consult Data Date of Consult: 10/13/22 HPI Narrative Reason for Consultation: Hyperkalemia HPI Narrative: MARY SAN, is a 82 M who presents to the hospital with right-sided ankle pain. Diagnosed with gout. Has been on steroids, symptomatically better. He has known history of CKD stage IIIb, baseline creatinine around 1.5. Recently had congestive heart failure, was discharged on diuretics. Overnight had hyperkalemia. Currently denies any complaints. Lower extremity edema is better. 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 Atrial flutter Atypical chest pain Back pain BMI 34.0-34.9,adult BPH (benign prostatic hyperplasia) BPPV (benign paroxysmal positional vertigo) Bradycardia Cardiac dysrhythmia Cardiology follow-up encounter CHF (congestive heart failure) De Quervain's tenosynovitis Debility Depression Dermatitis Diabetes mellitus Diabetic kidney disease Dizziness DM type 2 with diabetic peripheral neuropathy DVT (deep venous thrombosis) Dyslipidemia Dysphagia Essential (primary) hypertension Fall Flu vaccine need Fracture of great toe Gastric reflux Health care maintenance History of echocardiogram History of edema History of GI bleed History of peptic ulcer History of renal calculi History of ulceration HLD (hyperlipidemia) Injury of head and neck Iron deficiency anemia Iron deficiency anemia due to chronic blood loss Kidney hematoma (12/08/20) Left knee pain Left leg DVT Loss of equilibrium Low iron Malaise Near syncope Orthostatic hypotension MACHELLE (obstructive sleep apnea) Pain of left lower extremity Paroxysmal atrial fibrillation Paroxysmal atrial flutter Pneumonia Polypharmacy Prostate disease Psoriasis Recurrent syncope (06/19/22) Renal calculi RLS (restless legs syndrome) Sex disorder Suicidal ideation SVT (supraventricular tachycardia) TIA (transient ischemic attack) Urolithiasis Venous insufficiency of both lower extremities Vertigo Walker as ambulation aid Wears glasses Home Medications finasteride 5 mg tablet 5 mg PO DAILY PROSTATE #90 tabs 11/03/18 [Rx Last Taken 10/05/22] blood pressure monitor #1 ea 03/13/21 [Rx Last Taken Unknown] lancets 30 gauge ([employer] Lancets) #200 ea 10/26/21 [Rx Last Taken Unk nown] pramipexole 1 mg tablet (Mirapex) 2 mg PO QHS RLS #180 tabs 12/10/21 [Rx Last Taken 10/05/22] pen needle, diabetic 31 gauge x 3/16 (BD Ultra-Fine Mini Pen Needle) #100 ea 01/23/22 [Rx Last Taken Unknown] flecainide 100 mg tablet 100 mg PO Q12H HEART RATE #180 tabs 04/01/22 [Rx Last Taken 10/05/22] sertraline 25 mg tablet 25 mg PO DAILY DEPRESSION 04/05/22 [History Last Taken 10/05/22] compress.stocking,knee,reg,lrg #2 ea 07/05/22 [Rx Last Taken Unknown] metoprolol succinate 25 mg tablet,extended release 24 hr 12.5 mg PO DAILY BP 07/16/22 [History Last Taken 10/05/22] ferrous sulfate 325 mg (65 mg iron) tablet 325 mg PO TH supplement 07/31/22 [History Last Taken 10/03/22] furosemide 40 mg tablet 40 mg PO DAILY FLUID 07/31/22 [History Last Taken 10/05/22] blood sugar diagnostic #100 ea 09/05/22 [Rx Last Taken Unknown] meclizine 25 mg tablet 25 mg PO TID PRN dizziness #20 tabs 10/01/22 [Rx Last Taken 10/05/22] acetaminophen 500 mg tablet 1,000 mg PO Q6H PRN Pain 10/06/22 [History Last Taken 10/06/22 03:00] amlodipine 10 mg tablet 5 mg PO DAILY BP 10/06/22 [History Last Taken 10/05/22] dulaglutide 4.5 mg/0.5 mL subcutaneous pen injector 4.5 mg subcut .COMPLEX DM 10/06/22 [History Last Taken 10/05/22] ergocalciferol (vitamin D2) 1,250 mcg (50,000 unit) capsule 50,000 unit PO QM ONTH SUPPLEMENT 10/06/22 [History Last Taken 09/18/22] famotidine 40 mg tablet 40 mg PO DAILY GERD 10/06/22 [History Last Taken 10/05/22] hydralazine 50 mg tablet 50 mg PO BID BP 10/06/22 [History Last Taken 10/05/22] insulin glargine 100 unit/mL (3 mL) subcutaneous pen 30 unit subcut QAM DM 10/06/22 [History Last Taken 10/05/22] olmesartan 40 mg tablet 20 mg PO BID HEART 10/06/22 [History Last Taken 10/05/22] progesterone micronized 100 mg capsule 100 mg PO QAM HORMONE 10/06/22 [History Last Taken 10/05/22] simvastatin 20 mg tablet 20 mg PO QHS CHOLESTEROL 10/06/22 [History Last Taken 10/05/22] spironolactone 50 mg tablet 25 mg PO DAILY FLUID 10/06/22 [History Last Taken 10/05/22] tirzepatide 5 mg/0.5 mL subcutaneous pen injector (Mounjaro) 5 mg subcut QWEEK DM 10/06/22 [History Last Taken Unknown] Allergy/AdvReac Type Severity Reaction Status Date / Time hydrocodone bitartrate AdvReac Severe Other Verified 10/09/22 23:51 [From Vicodin] hydroxyzine AdvReac Severe Other Verified 10/09/22 23:51 Family History Father Diabetes Hypertension Cancer Lung cancer Mother Hypertension CVA (cerebral vascular accident) Sister Diabetes Son Diabetes Surgical History History of cardioversion (2015) History of cataract surgery History of left heart catheterization (02/16/13) History of lithotripsy (11/2020) History of loop recorder (06/26/22) History of radiofrequency ablation procedure for cardiac arrhythmia (02/05/06) history of right knee cap fracture History of right knee surgery Status post laser lithotripsy of ureteral calculus Status post left foot surgery STENT PLACEMENT FOR KIDNEY STONE Social History household members: spouse housing: house Smoking Status: Never smoker how long ago did patient quit smokin second hand exposure: No alcohol intake: never substance use type: does not use caffeine: No what type of physical activity do you participate in: none seatbelt use: always do you feel safe at home: Yes ROS ROS Narrative Negative except above Physical Exam Narrative Alert awake oriented x 3 no obvious distress no pallor no icterus no JVD s1s2 no murmurs lungs clear abdomen soft no organomegaly no edema no cyanosis edgar + Lab / Micro Data Result Diagrams: 10/13/22 05:28 10/13/22 05:28 Labs: Laboratory Results - last 24 hr 10/12/22 14:37: POC Glucose 296 H 10/12/22 16:19: POC Glucose 300 H 10/12/22 19:24: Sodium Cancelled, Potassium Cancelled, Chloride Cancelled, Carbon Dioxide Cancelled, Anion Gap Cancelled, BUN Cancelled, Creatinine Cancelled, Estim Creat Clear Calc Cancelled, Est GFR (MDRD) Af Amer Cancelled, Est GFR (MDRD) Non-Af Cancelled, BUN/Creatinine Ratio Cancelled, Glucose Cancelled, Calcium Cancelled 10/12/22 19:58: Sodium 135 L, Potassium 6.4 H*, Chloride 107, Carbon Dioxide 18.0 L, Anion Gap 10, BUN 77 H, Creatinine 2.08 H, Estim Creat Clear Calc 29.54, Est GFR (MDRD) Af Amer 39 L, Est GFR (MDRD) Non-Af 33 L, BUN/Creatinine Ratio 37.0 H, Glucose 414 H, Calcium 9.7 10/12/22 22:16: POC Glucose 370 H 10/12/22 23:36: Sodium 138, Potassium 5.7 H, Chloride 106, Carbon Dioxide 21.0, Anion Gap 11, BUN 75 H, Creatinine 2.00 H, Estim Creat Clear Calc 30.72, Est GFR (MDRD) Af Amer 41 L, Est GFR (MDRD) Non-Af 34 L, BUN/Creatinine Ratio 37.5 H, Glucose 381 H, Calcium 10.1 10/13/22 00:22: POC Glucose 345 H 10/13/22 05:28: WBC 10.7, RBC 3.46 L, Hgb 10.4 L, Hct 31.9 L, MCV 92.2, MCH 30.1, MCHC 32.6, RDW Std Deviation 45.2 H, RDW Coeff of Flavio 13.4, Plt Count 227, MPV 10.3, Immature Gran % (Auto) 0.800, Neut % (Auto) 75.9 H, Lymph % (Auto) 11.4 L, [place] % (Auto) 11.4 H, Eos % (Auto) 0.2, Baso % (Auto) 0.3, Absolute Neuts (auto) 8.1 H, Absolute Lymphs (auto) 1.22, Nucleated RBC % 0 10/13/22 05:28: Sodium 138, Potassium 4.5, Chloride 107, Carbon Dioxide 23.0, Anion Gap 8, BUN 71 H, Creatinine 1.67 H, Estim Creat Clear Calc 36.79, Est GFR (MDRD) Af Amer 51 L, Est GFR (MDRD) Non-Af 42 L, BUN/Creatinine Ratio 42.5 H, Glucose 161 H, Calcium 9.3 10/13/22 06:24: POC Glucose 166 H 10/13/22 08:08: POC Glucose 117 H 10/13/22 11:20: POC Glucose 241 H
--- NOTE | 2022-10-13 14:09 | PN_ITS ---
Subjective Subjective Patient seen and examined. He had no active complaints today. He had an uneventful night. He was noted to be markedly hyperkalemic with potassium going up to 6.4. This was yesterday. He was given Kayexalate and nephrology was consulted. Liu catheter was also inserted. Hyperkalemia has resolved and he feels better. Objective Data Objective Data Vital Signs: Vital Signs Temp Pulse Resp BP Pulse Ox O2 Del Method 97.7 F L 64 16 144/56 H 98 Room Air 10/13/22 08:09 10/13/22 08:17 10/13/22 08:09 10/13/22 08:16 10/13/22 08:09 10/13/22 08:20 Oxygen Delivery Method Room Air Weight: 281 lb 12.012 oz Body Mass Index (BMI) 38.2 Intake & Output: Intake and Output for Last 24 Hours 10/11/22 10/12/22 10/13/22 23:59 23:59 23:59 Intake Total 1500 / 1500 1070 / 1070 360 / 360 Output Total 500 / 500 800 / 800 Balance 1500 / 1500 570 / 570 -440 / -440 Lab / Micro Data Result Diagrams: 10/13/22 05:28 10/13/22 05:28 Labs: Laboratory Results - last 24 hr 10/12/22 14:37: POC Glucose 296 H 10/12/22 16:19: POC Glucose 300 H 10/12/22 19:24: Sodium Cancelled, Potassium Cancelled, Chloride Cancelled, Carbon Dioxide Cancelled, Anion Gap Cancelled, BUN Cancelled, Creatinine Cancelled, Estim Creat Clear Calc Cancelled, Est GFR (MDRD) Af Amer Cancelled, Est GFR (MDRD) Non-Af Cancelled, BUN/Creatinine Ratio Cancelled, Glucose Cancel led, Calcium Cancelled 10/12/22 19:58: Sodium 135 L, Potassium 6.4 H*, Chloride 107, Carbon Dioxide 18.0 L, Anion Gap 10, BUN 77 H, Creatinine 2.08 H, Estim Creat Clear Calc 29.54, Est GFR (MDRD) Af Amer 39 L, Est GFR (MDRD) Non-Af 33 L, BUN/Creatinine Ratio 37.0 H, Glucose 414 H, Calcium 9.7 10/12/22 22:16: POC Glucose 370 H 10/12/22 23:36: Sodium 138, Potassium 5.7 H, Chloride 106, Carbon Dioxide 21.0, Anion Gap 11, BUN 75 H, Creatinine 2.00 H, Estim Creat Clear Calc 30.72, Est GFR (MDRD) Af Amer 41 L, Est GFR (MDRD) Non-Af 34 L, BUN/Creatinine Ratio 37.5 H, Glucose 381 H, Calcium 10.1 10/13/22 00:22: POC Glucose 345 H 10/13/22 05:28: WBC 10.7, RBC 3.46 L, Hgb 10.4 L, Hct 31.9 L, MCV 92.2, MCH 30.1, MCHC 32.6, RDW Std Deviation 45.2 H, RDW Coeff of Flavio 13.4, Plt Count 227, MPV 10.3, Immature Gran % (Auto) 0.800, Neut % (Auto) 75.9 H, Lymph % (Auto) 11.4 L, Dade % (Auto) 11.4 H, Eos % (Auto) 0.2, Baso % (Auto) 0.3, Absolute Neuts (auto) 8.1 H, Absolute Lymphs (auto) 1.22, Nucleated RBC % 0 10/13/22 05:28: Sodium 138, Potassium 4.5, Chloride 107, Carbon Dioxide 23.0, Anion Gap 8, BUN 71 H, Creatinine 1.67 H, Estim Creat Clear Calc 36.79, Est GFR (MDRD) Af Amer 51 L, Est GFR (MDRD) Non-Af 42 L, BUN/Creatinine Ratio 42.5 H, Glucose 161 H, Calcium 9.3 10/13/22 06:24: POC Glucose 166 H 10/13/22 08:08: POC Glucose 117 H 10/13/22 11:20: POC Glucose 241 H Physical Exam Const alert, oriented x3 and no apparent distress Constitutional Narrative: Obese HEENT normocephalic, head/scalp atraumatic, moist oral mucous membranes and oropharynx normal Eyes PERRL, EOMs intact bilaterally and conjunctivae normal Neck no lymphadenopathy, supple and no JVD Resp normal respiratory effort, normal air movement, no retractions, no use of accessory muscles and clear to auscultation bilaterally Cardio regular rate, regular rhythm, S1 normal heart sound, S2 normal heart sound and no murmurs GI normal to inspection, nondistended, normoactive bowel sounds, soft to palpation, non-tender and non-distended Extremity Extremity Narrative: Right ankle pain, swelling and tenderness has resolved. Neuro oriented x3, CN's II-XII intact bilaterally, moves all extremities and no focal motor deficits Sensorium / Orientation: awake and alert Motor Exam: strength 5/5 throughout Psych affect normal Assessment & Plan Assessment/Plan (1) 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: (2) Acute kidney injury: (3) Gout flare: PLAN: Plan #RIght ankle pain, thought to be due to acute gout flare up * Pain has resolved. Now able to weight-bear. * MRI of the foot shows small joint effusions and mild degenerative changes of the talus but no other acute features. * On p.o. prednisone. * podiatry on board * fall precautions * #HORACE on CKD III with hyperkalemia * Creatinine is down to 1.67 today with a baseline of around 1.29. * Hyperkalemia peaked at 6.5 yesterday but is now down to 4.7.- * Hyperkalemia was thought to be due to hyperglycemia. This is now resolved. * Will monitor. * * #Heart failure preserved ejection fraction: We will hold Lasix due to HORACE. Not in exacerbation. Stable. #Bradycardia * Was recently admitted with a complaint of chest pain and bradycardia. Troponins were negative and he had cardiac cath which showed clean coronaries. He was due to come back to the hospital on 10/14/2022 for pacemaker insertion. * Considering that patient if discharged today will need to come back tomorrow for the pacemaker insertion and will be likely kept overnight till Friday for monitoring, I think it is reasonable to keep patient until tomorrow when he can have the pacemaker inserted. * #Type 2 diabetes mellitus: * On Lantus 30 units daily as well as dulaglutide * Insulin Sliding scale. Accu-Cheks ACHS. #MACHELLE: On CPAP nightly. BPH: On finasteride #Paroxysmal A-fib: On flecainide and metoprolol. Not anticoagulated. DVT prophylaxis: Heparin Total time spent on seeing patient [id number], examining patient, review of chart and specialist notes, discussion of plan with patient, ancillary staff and nursing staff as well as documentation: 30 minutes. Charges/Coding Visit Charges Inpatient E&M: 52864 Subs Hosp L2
[2022-10-13 17:31] LABS: Bedside Glucose 330 mg/dL (74-106)
[2022-10-13] MEDS: Atorvastatin Calcium 10 MG Tablet PO (22:22)
[2022-10-13 23:15] LABS: Bedside Glucose 219 mg/dL (74-106)
[2022-10-14] VITALS (15 sets, daily range): BP systolic 144–157; BP diastolic 51–77; PULSE 53–82; RESP 14–20; TEMP 36.1–36.7; O2SAT 93–99; BMI 38.7
[2022-10-14] MEDS: Flecainide 100 MG Tablet PO ×2 (03:00→15:22)
[2022-10-14 05:52] LABS: Absolute Lymphocyte Count 1.72 X10^3/uL (0.83-4.51); Absolute Neutrophil Count 5.1 X10^3/uL (2.0-7.7); Basophil# 0.02 X10^3/uL; Basophil% 0.3 % (0-1); Eosinophil# 0.05 X10^3/uL; Eosinophils% 0.6 % (0-5); Hematocrit 30.6 % (40-54); Hemoglobin 9.7 g/dL (13.0-16.5); Lymphocyte # 1.72 X10^3/ul (0.83-4.51); Mean Corp Hgb Conc 31.7 g/dL (32-36); Mean Corpuscular Hgb 30.4 pg (27.0-32.0); Mean Corpuscular Volume 95.9 fL (80-94); Mean Platelet Vol. 9.8 fl (6.2-12.0); Monocyte# 0.84 X10^3/uL; Monocyte% 10.8 % (0-10); NRBC Flagged by Analyzer 0 % (0-5); Neutrophil % 65.3 % (47-70); Platelet Count 192 K/mm3 (150-450); RBC Distribution Width CV 13.3 % (11.6-14.6); RBC Distribution Width SD 46.8 fl (35.1-43.9); Red Blood Count 3.19 M/mm3 (4.6-6.2); White Blood Count 7.8 K/mm3 (4.4-11.0)
--- NOTE | 2022-10-14 05:55 | EKG12_ITS ---
Test Reason : Blood Pressure : / mmHG Vent. Rate : 066 BPM Atrial Rate : 066 BPM P-R Int : 130 ms QRS Dur : 118 ms QT Int : 446 ms P-R-T Axes : 014 081 054 degrees QTc Int : 467 ms Normal sinus rhythm Incomplete right bundle branch block Borderline ECG When compared with ECG of 07-OCT-2022 04:17, Sinus rhythm is no longer with 2nd degree A-V block (Mobitz II) Incomplete right bundle branch block is now Present Confirmed by JORDIN DUNCAN, SYBIL ([id number]), technical editor NITZA ROJAS ([id number]) on 10/15/2022 10:07:05 AM Referred By: Radha Confirmed By:SYBIL BRENNER MD
[2022-10-14 06:34] LABS: Anion Gap 7 (5-15); BUN 61 mg/dL (7-18); BUN/Creat Ratio 38.1 RATIO (10-20); Calcium,Total 8.9 mg/dL (8.5-10.1); Chloride 110 mmol/L (98-107); EST Glomerular Filtration Rate 44 mL/min (>60); Est Glom Filt Rate - Afr Amer 53 mL/min (>60); Glucose 112 mg/dL (74-106); Potassium 4.5 mmol/L (3.5-5.1); Sodium Level 142 mmol/L (136-145)
[2022-10-14 06:55] LABS: Bedside Glucose 94 mg/dL (74-106)
[2022-10-14] MEDS: 0.9% Normal Saline 1,000 ML 15 ML IV (09:29)
[2022-10-14] MEDS: Metoprolol(XL)Succ 25 MG Tablet 12.5 MG PO (09:30)
[2022-10-14] MEDS: hydrALAZINE 50 MG Tablet PO ×2 (09:30→20:54)
[2022-10-14] MEDS: amLODIPine 5 MG Tablet PO (09:31)
[2022-10-14 09:56] LABS: Bedside Glucose 101 mg/dL (74-106)
--- NOTE | 2022-10-14 10:49 | PN.RENAL_ITS ---
Subjective Subjective No new events Objective Data Objective Data Vital Signs: Vital Signs Temp Pulse Resp BP Pulse Ox O2 Del Method O2 Flow Rate 98.1 F 63 18 155/64 H 97 Room Air 2 10/14/22 09:28 10/14/22 09:30 10/14/22 09:28 10/14/22 09:28 10/14/22 09:28 10/14/22 09:28 10/14/22 07:12 Oxygen Flow Rate (L/min) 2 Oxygen Delivery Method Room Air Weight: 129.4 kg Body Mass Index (BMI) 38.7 Intake & Output: Intake and Output for Last 24 Hours 10/12/22 10/13/22 10/14/22 23:59 23:59 23:59 Intake Total 1070 / 1070 660 / 660 0 / 0 Output Total 500 / 500 1250 / 1250 Balance 570 / 570 -590 / -590 0 / 0 Lab / Micro Data Result Diagrams: 10/14/22 05:40 10/14/22 05:40 Labs: Laboratory Results - last 24 hr 10/13/22 11:20: POC Glucose 241 H 10/13/22 17:02: POC Glucose 330 H 10/13/22 22:21: POC Glucose 219 H 10/14/22 05:40: WBC 7.8, RBC 3.19 L, Hgb 9.7 L, Hct 30.6 L, MCV 95.9 H, MCH 30.4, MCHC 31.7 L, RDW Std Deviation 46.8 H, RDW Coeff of Flavio 13.3, Plt Count 192, MPV 9.8, Immature Gran % (Auto) 1.000 H, Neut % (Auto) 65.3, Lymph % (Auto) 22.0, [place] % (Auto) 10.8 H, Eos % (Auto) 0.6, Baso % (Auto) 0.3, Absolute Neuts (auto) 5.1, Absolute Lymphs (auto) 1.72, Nucleated RBC % 0 10/14/22 05:40: Sodium 142, Potassium 4.5, Chloride 110 H, Carbon Dioxide 25.0, Anion Gap 7, BUN 61 H, Creatinine 1.60 H, Estim Creat Clear Calc 38.40, Est GFR (MDRD) Af Amer 53 L, Est GFR (MDRD) Non-Af 44 L, BUN/Creatinine Ratio 38.1 H, Glucose 112 H, Calcium 8.9 10/14/22 06:23: POC Glucose 94 10/14/22 09:34: POC Glucose 101 Physical Exam Narrative Alert awake oriented x 3 no obvious distress no pallor no icterus no JVD s1s2 no murmurs lungs clear abdomen soft no organomegaly no edema no cyanosis Assessment & Plan Assessment/Plan (1) CKD stage 3 due to type 2 diabetes mellitus: PLAN: Plan Hyperkalemia. Likely due to a combination of hyper glycemia, acidosis. Overnight we had given insulin, IV bicarbonate. Today morning potassium is improved. Bicarbonate values have normalized. Currently not on any medications that can potentially cause hyperkalemia. CKD stage IIIb. Appears to have baseline creatinine of 1.5-1.6. Also has some proteinuria between 1.5 to 1.7 g. Presumably due to diabetes. It appears he also has microscopic hematuria. Creatinine is back to baseline. He has an appointment with me in office this at 3 PM This was scheduled before. Congestive heart failure. Likely resume Lasix at the time of discharge.
--- NOTE | 2022-10-14 11:47 | PN.HOSP_ITS ---
Subjective Subjective Doing well, feels better. No issues overnight. Plan for pacemaker today Objective Data Objective Data Vital Signs: Vital Signs Temp Pulse Resp BP Pulse Ox O2 Del Method O2 Flow Rate 98.1 F 63 18 155/64 H 97 Room Air 2 10/14/22 09:28 10/14/22 09:30 10/14/22 09:28 10/14/22 09:28 10/14/22 09:28 10/14/22 09:28 10/14/22 07:12 Oxygen Flow Rate (L/min) 2 Oxygen Delivery Method Room Air Weight: 285 lb 4.45 oz Body Mass Index (BMI) 38.7 Intake & Output: Intake and Output for Last 24 Hours 10/13/22 10/14/22 10/15/22 03:59 03:59 03:59 Intake Total 1070 / 1070 660 / 660 0 / 0 Output Total 500 / 500 1250 / 1250 Balance 570 / 570 -590 / -590 0 / 0 Lab / Micro Data Result Diagrams: 10/14/22 05:40 10/14/22 05:40 Labs: Laboratory Results - last 24 hr 10/13/22 17:02: POC Glucose 330 H 10/13/22 22:21: POC Glucose 219 H 10/14/22 05:40: WBC 7.8, RBC 3.19 L, Hgb 9.7 L, Hct 30.6 L, MCV 95.9 H, MCH 30.4, MCHC 31.7 L, RDW Std Deviation 46.8 H, RDW Coeff of Flavio 13.3, Plt Count 192, MPV 9.8, Immature Gran % (Auto) 1.000 H, Neut % (Auto) 65.3, Lymph % (Auto) 22.0, Grainger % (Auto) 10.8 H, Eos % (Auto) 0.6, Baso % (Auto) 0.3, Absolute Neuts (auto) 5.1, Absolute Lymphs (auto) 1.72, Nucleated RBC % 0 10/14/22 05:40: Sodium 142, Potassium 4.5, Chloride 110 H, Carbon Dioxide 25.0, Anion Gap 7, BUN 61 H, Creatinine 1.60 H, Estim Creat Clear Calc 38.40, Est GFR (MDRD) Af Amer 53 L, Est GFR (MDRD) Non-Af 44 L, BUN/Creatinine Ratio 38.1 H, Glucose 112 H, Calcium 8.9 10/14/22 06:23: POC Glucose 94 10/14/22 09:34: POC Glucose 101 Physical Exam Narrative General: Alert, Oriented x3, Cooperative, No apparent distress HEENT: Atraumatic, PERRLA, EOMI, Normocephalic Oral: Moist Mucosa Neck: Supple, No JVD Lungs: Clear to auscultation, Normal air movement, No rhonchi, No wheeze, No rales Cardiovascular: Regular rate, Regular Rhythm, Normal S1, Normal S2, No murmurs Abdomen: Soft, Non Tender, Non-Distended, No Hepato-splenomegaly Extremities: No edema, Capillary Refill Less than 3 Seconds Skin: No rashes, No breakdown Musculoskeletal: No Tenderness to Palpation of Joints or Extremities Neurological: Cranial nerves II-XII grossly intact, Motor Exam 5/5 strength throughout, Sensory exam intact to light touch and pain Psych/Mental Status: Normal Affect, Appropriate Assessment & Plan Assessment/Plan (1) 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: (2) Acute kidney injury: (3) Gout flare: PLAN: Plan 1. Right ankle pain due to gout ? Continue with prednisone appreciate podiatry's assistance ? We will continue on prednisone for period of time after discharge with outpatient follow-up 2. HORACE on CKD 3 ? Hyperkalemia has resolved ? Renal function is back to baseline ? Follow-up with nephrology as previously scheduled 3. Chronic diastolic CHF/HTN/HLD/bradycardia/paroxysmal A-fib ? He did have a recent admission for chest pain and bradycardia and was scheduled for pacemaker placement, this will be done today ? Continue with his home blood pressure medications ? Continue with his statin ? We will can continue with his flecainide as well as his metoprolol given his history of A-fib ? Appreciate cardiology's assistance 4. DM2 ? Stable, will continue with his Lantus ? Sliding scale with Accu-Cheks ACHS ? We will make adjustments as necessary 5. BPH ? Stable ? Continue with finasteride DVT: Heparin Charges/Coding Visit Charges Inpatient E&M: 47670 Subs Hosp L2
--- NOTE | 2022-10-14 14:45 | CL.IE_ITS ---
Patient: MARY SAN Study Date: 10/14/2022 Performing: Sajan Rogers MD : [id number] Age: 82 Gender: male PROCEDURES PERFORMED LP04-([id number])INITIAL PACER INSERT+DUAL LEADS INDICATIONS Sinoatrial node dysfunction/Sick sinus syndrome PROCEDURE DETAILS The patient was brought to the Catheterization Lab in the postabsorptive nonsedated state. Informed consent was obtained prior to the procedure. Local anesthetic was given subcutaneously to the left subclavian region with Lidocaine 2%. Access was achieved and a guidewire was advanced into the left subclavian vein. PPM ventricular lead was inserted / positioned to right ventricular septal wall. PPM ventricular lead testing performed. PPM ventricular lead testing performed. PPM atrial lead was inserted / positioned to the right atrial appendage. PPM atrial lead testing performed. The Atrial lead sutured in place with 2-0 Silk. The Ventricular PM lead sutured in place with 2-0 Silk. Device pocket was irrigated with antibiotic. PPM generator was attached to the lead(s) and inserted into the pocket. Subcutaneous closure was completed with 3-0 Vicryl. Skin closure was completed with 4-0 Vicryl. Steri-strips applied to left subclavicular incision. The patient tolerated the procedure well. Estimated Blood Loss: 15 ml's IMPLANTED / EX-PLANTED DEVICES IMPLANTED DEVICE(S): PPM Generator - [employer] Athlete: Red Crow, Model # Accolade MRI EL DR Model L331 , Serial # [id number] PPM Atrial lead - [employer] Athlete: [employer], Model # Ingevity Ref 7841 52cm , Serial # [id number] PPM Ventricular lead - [employer] Athlete: [employer], Model # Ingevity Ref 7842 59cm , Serial # [id number] DEVICE PARAMETERS ATRIAL LEAD PARAMETERS: P wave- 2.9 (mV) Current- 1.8 (mA) threshold- 3.5 (V) impedence- 547 (OHMS) VENTRICULAR LEAD PARAMETERS: R wave- 25.0 (mV) Current- 1.0 (mA) threshold- 3.5 (V) impedence- 782 (OHMS) DEVICE PARAMETERS: Mode- DDD Lower rate- 50 Upper rate- 130 CONCLUSIONS / RECOMMENDATIONS Device Conclusions: Successful implantation of a dual chamber pacemaker Device Recommendations: Follow up with Primary Care Physician PROCEDURE MEDICATIONS Versed 1 mg IV Fentanyl 50 mcg IV Fentanyl 50 mcg IV Oxygen: 2 L/min via nasal cannula Antibiotic given in appropriate timeframe. Ancef 2 Gm IV @ 10/14/2022 13:09:54 Signed By Sajan Rogers MD On 10/14/2022 14:44:19 Sajan Rogers MD
[2022-10-14] MEDS: Pantoprazole Sodium 40 MG Tablet PO (15:21)
[2022-10-14] MEDS: Sertraline 50 MG Tablet 25 MG PO (15:21)
[2022-10-14] MEDS: Finasteride 5 MG Tablet PO (16:13)
[2022-10-14 16:30] LABS: Bedside Glucose 109 mg/dL (74-106)
[2022-10-14] MEDS: Heparin Injection (Vial) 5,000 UNIT/ML VIAL 5000 UNIT SC (20:54)
[2022-10-14] MEDS: Insulin Lispro 100 UNIT/ML INSULN.PEN SC (20:54)
[2022-10-14] MEDS: Pramipexole Di-HCl 1 MG Tablet 2 MG PO (20:55)
[2022-10-14] MEDS: Atorvastatin Calcium 10 MG Tablet PO (20:55)
[2022-10-14 21:45] LABS: Bedside Glucose 163 mg/dL (74-106)
[2022-10-15 03:15] VITALS: BP 146/57; PULSE 65; RESP 19; TEMP 36.3; O2SAT 96
[2022-10-15] MEDS: Flecainide 100 MG Tablet PO (03:20)
[2022-10-15 05:49] LABS: Absolute Lymphocyte Count 1.83 X10^3/uL (0.83-4.51); Absolute Neutrophil Count 4.4 X10^3/uL (2.0-7.7); Basophil# 0.06 X10^3/uL; Basophil% 0.8 % (0-1); Eosinophil# 0.15 X10^3/uL; Eosinophils% 2.1 % (0-5); Hematocrit 34.2 % (40-54); Hemoglobin 10.4 g/dL (13.0-16.5); Lymphocyte # 1.83 X10^3/ul (0.83-4.51); Lymphocyte % 25.2 % (19-41); Mean Corp Hgb Conc 30.4 g/dL (32-36); Mean Corpuscular Hgb 29.8 pg (27.0-32.0); Mean Platelet Vol. 10.4 fl (6.2-12.0); Monocyte# 0.72 X10^3/uL; Monocyte% 9.9 % (0-10); NRBC Flagged by Analyzer 0 % (0-5); Neutrophil # 4.41 X10^3/uL (2.7-7.7); Neutrophil % 60.9 % (47-70); Platelet Count 201 K/mm3 (150-450); RBC Distribution Width CV 13.5 % (11.6-14.6); RBC Distribution Width SD 48.2 fl (35.1-43.9); Red Blood Count 3.49 M/mm3 (4.6-6.2); White Blood Count 7.3 K/mm3 (4.4-11.0)
--- NOTE | 2022-10-15 05:55 | RAD_ITS ---
INDICATION: Post permanant ICD/Pacemaker -- inspiration/expiration. Arms Down. Wet read to EXAMINATION/TECHNIQUE: X-RAY - XR Chest 3 Views COMPARISON: None. FINDINGS: LINES/DEVICES: Pacemaker on the left. LUNGS: No consolidation, edema or effusion. No pneumothorax. MEDIASTINUM AND CARDIOVASCULAR STRUCTURES: Moderate cardiomegaly. BONES AND SOFT TISSUES: Unremarkable. RAD/Chest 3 View IMPRESSION: Moderate cardiomegaly. Electronically Signed: Jake Resendiz MD at 4:36 EST ,
[2022-10-15 06:00] VITALS: BMI 38.6
[2022-10-15 06:18] LABS: Anion Gap 6 (5-15); BUN 50 mg/dL (7-18); BUN/Creat Ratio 33.6 RATIO (10-20); Calcium,Total 8.5 mg/dL (8.5-10.1); Chloride 110 mmol/L (98-107); Creatinine, Serum 1.49 mg/dL (0.70-1.30); EST Glomerular Filtration Rate 48 mL/min (>60); Est Glom Filt Rate - Afr Amer 58 mL/min (>60); Estimated Creatinine Clearance 41.23 ml/min; Glucose 178 mg/dL (74-106); Potassium 4.8 mmol/L (3.5-5.1); Sodium Level 140 mmol/L (136-145)
[2022-10-15 07:11] LABS: Bedside Glucose 143 mg/dL (74-106)
[2022-10-15 07:32] VITALS: O2SAT 95
[2022-10-15 08:00] VITALS: BP 169/65; PULSE 66; RESP 14; TEMP 36.4; O2SAT 95
[2022-10-15] MEDS: predniSONE 20 MG Tablet 60 MG PO (08:00)
[2022-10-15 08:01] VITALS: PULSE 75
[2022-10-15] MEDS: Insulin Glargine-YFGN 100 UNIT/ML Pen 30 UNIT SC (08:01)
[2022-10-15] MEDS: hydrALAZINE 50 MG Tablet PO (08:01)
[2022-10-15] MEDS: Heparin Injection (Vial) 5,000 UNIT/ML VIAL 5000 UNIT SC (08:01)
[2022-10-15] MEDS: Pantoprazole Sodium 40 MG Tablet PO (08:02)
[2022-10-15] MEDS: amLODIPine 5 MG Tablet PO (08:02)
[2022-10-15] MEDS: Finasteride 5 MG Tablet PO (08:02)
[2022-10-15] MEDS: PROGESTERONE, MICRONIZED 100 MG CAPSULE PO (08:02)
[2022-10-15 08:03] VITALS: PULSE 75
[2022-10-15] MEDS: Metoprolol(XL)Succ 25 MG Tablet 12.5 MG PO (08:03)
[2022-10-15] MEDS: Sertraline 50 MG Tablet 25 MG PO (08:03)
--- NOTE | 2022-10-15 09:28 | DCINST_ITS ---
Discharge Instructions Diet Discharge Diet: Low fat / Low cholesterol and Carb Control Diet Dressing / Incision Call your doctor if you observe: Fever of 101 or Higher, Shortness of breath, Dizziness, Fainting spells, Swelling in the ankles, Chest pain and Increased palpitations (irregular heartbeat) Follow Up Care Test Results: Test results from this visit will be discussed in further detail at your follow- up appointment, if applicable. Discharge Plan Admission Admit Date/Time: 10/10/22 02:33 Attending Provider: Franco Rausch Primary Care Provider: Tosha Shrestha Consulting Providers: Lianna Garcia ; Edward Carr ; Anay Hernandez ; Clarice Fontenot Instructions Additional Instructions / Restrictions: Follow-up with your PCP as an outpatient to monitor your gout flare, you will likely need outpatient labs and medication adjustments. Discharge Orders/Prescriptions Prescriptions: New prednisone 20 mg Tablet 40 mg PO BREAKFAST 2 Days Qty: 4 0RF Continued (DME) blood pressure monitor Kit See Rx Instructions .ROUTE .MEDSUPPLY Qty: 1 0RF Rx Instructions: check blood pressure daily (DME) lancets [OneTouch Delica Lancets] 30 gauge misc See Rx Instructions .ROUTE .MEDSUPPLY Qty: 200 3RF Rx Instructions: check blood sugar tid for type 2 DM pramipexole [Mirapex] 1 mg tablet 2 mg PO QHS Qty: 180 3RF furosemide 40 mg tablet 40 mg PO DAILY sertraline 25 mg tablet 25 mg PO DAILY (DME) compress.stocking,knee,reg,lrg Misc See Rx Instructions .MEDSUPPLY Qty: 2 1RF Rx Instructions: wear daily for venous insufficiency 20-30 mmHg ferrous sulfate 325 mg (65 mg iron) tablet 325 mg PO Rx Instructions: only acetaminophen 500 mg Tablet 1,000 mg PO Q6H PRN (Reason: Pain) spironolactone 50 mg tablet 25 mg PO DAILY famotidine 40 mg tablet 40 mg PO DAILY amlodipine 10 mg tablet 5 mg PO DAILY simvastatin 20 mg tablet 20 mg PO QHS hydralazine 50 mg tablet 50 mg PO BID ergocalciferol (vitamin D2) 1,250 mcg (50,000 unit) capsule 50,000 unit PO QMONTH progesterone micronized 100 mg capsule 100 mg PO QAM olmesartan 40 mg tablet 20 mg PO BID insulin glargine 100 unit/mL (3 mL) insulin pen 30 unit subcut QAM dulaglutide 4.5 mg/0.5 mL pen injector 4.5 mg SC .COMPLEX Rx Instructions: 4.5 mg subcut every friday Mounjaro 5 mg/0.5 mL pen injector 5 mg subcut QWEEK finasteride 5 mg tablet 5 mg PO DAILY Qty: 90 3RF (DME) pen needle, diabetic [BD Ultra-Fine Mini Pen Needle] 31 gauge x 3/16 needle See Rx Instructions .ROUTE .MEDSUPPLY Qty: 100 3RF Rx Instructions: daily for type 2 dm flecainide 100 mg tablet 100 mg PO Q12H Qty: 180 2RF Hold Instructions: bradycardia 07/09 metoprolol succinate 25 mg tablet extended release 24 hr 12.5 mg PO DAILY (DME) blood sugar diagnostic Strip See Rx Instructions .ROUTE .MEDSUPPLY Qty: 100 3RF Rx Instructions: One Touch Elena test strip, use to test blood sugar 3 times daily. Dx E11.42 meclizine 25 mg tablet 25 mg PO TID PRN (Reason: dizziness) Qty: 20 0RF Referrals / Follow Up: Tosha Shrestha MD [Primary Care Provider] - Within 1 Week Sajan Rogers MD [Med Staff - Active Staff] - Within 1 Month Disposition Disposition (needs filled in before D/C Order can be placed): Home, Self Care
--- NOTE | 2022-10-15 09:55 | PCM.DC ---
Discharge Instructions Diet Discharge Diet: Low fat / Low cholesterol and Carb Control Diet Activity Discharge Activity: May Not Drive Additional Activity Instructions:: May shower or bathe on [day 3]. Do not scrub the incision or soak in the tub. Just wash with soap and let the water run over the incision. Gently pat dry with towel. Medications: Take your pain medication as directed. Refer to your discharge instruction sheet for a list of medications you are to take. Dressing / Incision Call your doctor if your incision/area has: Continuous Slow Oozing, Sudden Increased Bleeding, Increased Pain/ Swelling, Increased Redness, Foul Smelling Discharge and Swelling at the incision site Call your doctor if you observe: Fever of 101 or Higher, Shortness of breath, Dizziness, Fainting spells, Swelling in the ankles, Chest pain and Increased palpitations (irregular heartbeat) Suture Line Care: Avoid Pulling/Pushing and Avoid Pinching/Bending Cleanse incision/area with: Keep Dressing Clean & Dry Additional Dressing/Incision Instructions:: When dressing is removed, wash and dry incision. Keep covered with a light bandage if it is rubbing against your clothing. Do not cover the incision with an airtight bandage. Change the bandage daily. Do not remove steri strips. The strips will fall off on their own. Follow Up Care Please Follow Up With: Sajan Rogers MD When: Pacer follow up on October 22, 2022 at 2 PM Test Results: Test results from this visit will be discussed in further detail at your follow-up appointment, if applicable. Discharge Plan Admission Admit Date/Time: 10/10/22 02:33 Attending Provider: Franco Rausch Primary Care Provider: Tosha Shrestha Consulting Providers: Lianna Garcia ; Edward Carr ; Anay Hernandez ; Clarice Fontenot Instructions Additional Instructions / Restrictions: Follow-up with your PCP as an outpatient to monitor your gout flare, you will likely need outpatient labs and medication adjustments. Discharge Orders/Prescriptions Prescriptions: New prednisone 20 mg Tablet 40 mg PO BREAKFAST 2 Days Qty: 4 0RF Continued (DME) blood pressure monitor Kit See Rx Instructions .ROUTE .MEDSUPPLY Qty: 1 0RF Rx Instructions: check blood pressure daily (DME) lancets [OneTouch Delica Lancets] 30 gauge misc See Rx Instructions .ROUTE .MEDSUPPLY Qty: 200 3RF Rx Instructions: check blood sugar tid for type 2 DM pramipexole [Mirapex] 1 mg tablet 2 mg PO QHS Qty: 180 3RF furosemide 40 mg tablet 40 mg PO DAILY sertraline 25 mg tablet 25 mg PO DAILY (DME) compress.stocking,knee,reg,lrg Misc See Rx Instructions .MEDSUPPLY Qty: 2 1RF Rx Instructions: wear daily for venous insufficiency 20-30 mmHg ferrous sulfate 325 mg (65 mg iron) tablet 325 mg PO TH Rx Instructions: only acetaminophen 500 mg Tablet 1,000 mg PO Q6H PRN (Reason: Pain) spironolactone 50 mg tablet 25 mg PO DAILY famotidine 40 mg tablet 40 mg PO DAILY amlodipine 10 mg tablet 5 mg PO DAILY simvastatin 20 mg tablet 20 mg PO QHS hydralazine 50 mg tablet 50 mg PO BID ergocalciferol (vitamin D2) 1,250 mcg (50,000 unit) capsule 50,000 unit PO QMONTH progesterone micronized 100 mg capsule 100 mg PO QAM olmesartan 40 mg tablet 20 mg PO BID insulin glargine 100 unit/mL (3 mL) insulin pen 30 unit subcut QAM dulaglutide 4.5 mg/0.5 mL pen injector 4.5 mg SC .COMPLEX Rx Instructions: 4.5 mg subcut every friday Mounjaro 5 mg/0.5 mL pen injector 5 mg subcut QWEEK finasteride 5 mg tablet 5 mg PO DAILY Qty: 90 3RF (DME) pen needle, diabetic [BD Ultra-Fine Mini Pen Needle] 31 gauge x 3/16 needle See Rx Instructions .ROUTE .MEDSUPPLY Qty: 100 3RF Rx Instructions: daily for type 2 dm flecainide 100 mg tablet 100 mg PO Q12H Qty: 180 2RF Hold Instructions: bradycardia 07/09 metoprolol succinate 25 mg tablet extended release 24 hr 12.5 mg PO DAILY (DME) blood sugar diagnostic Strip See Rx Instructions .ROUTE .MEDSUPPLY Qty: 100 3RF Rx Instructions: One Touch Elena test strip, use to test blood sugar 3 times daily. Dx E11.42 meclizine 25 mg tablet 25 mg PO TID PRN (Reason: dizziness) Qty: 20 0RF Referrals / Follow Up: Ronnie Dyer LUMP MACHINE OPERATOR, LUMP MACHINE OPERATOR-C [Med Staff - Adv Practice Prof] - 11/12/22 1:30 pm Caden Dale LUMP MACHINE OPERATOR, LUMP MACHINE OPERATOR-C [Med Staff - Adv Practice Prof] - 10/24/22 1:00 pm Disposition Disposition (needs filled in before D/C Order can be placed): Home, Self Care
[2022-10-15] MEDS: Insulin Lispro 100 UNIT/ML INSULN.PEN SC (11:01)
[2022-10-15 11:30] LABS: Bedside Glucose 225 mg/dL (74-106)
--- NOTE | 2022-10-15 11:51 | PCM.DC.SUM ---
Providers Date of Admission: 10/10/22 Primary Care Physician: Dr. Tosha Shrestha MD Consultations 10/10/22 03:25 Consult: Podiatry Routine Consulting Provider: Edward Carr Reason for Consult: Intractable R foot pain, elevated uric level, poss gout flare EMERGENT Consult: No MD Notified: Yes Date Notified: 10/10/22 Time Notified: 02:34 Method of Notification: Text 10/12/22 20:56 Consult: Nephrology Routine Consulting Provider: Anay Hernandez Reason for Consult: hyperkalemia EMERGENT Consult: Yes MD Notified: Yes Date Notified: 10/12/22 Time Notified: 20:57 Method of Notification: Verbal Reason For Visit: R FOOT PAIN, ?GOUT FLARE, HORACE ON CKD Diagnosis Discharge Diagnosis (1) 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: Status: Acute Code(s): M76.821 - Posterior tibial tendinitis, right leg (2) Acute kidney injury: Status: Acute Code(s): N17.9 - Acute kidney failure, unspecified (3) Gout flare: Status: Acute Code(s): M10.9 - Gout, unspecified Plan 1. Right ankle pain due to gout ? Continue with prednisone appreciate podiatry's assistance ? We will continue on prednisone for period of time after discharge with outpatient follow-up 2. HORACE on CKD 3 ? Hyperkalemia has resolved ? Renal function is back to baseline ? Follow-up with nephrology as previously scheduled 3. Chronic diastolic CHF/HTN/HLD/bradycardia/paroxysmal A-fib ? He did have a recent admission for chest pain and bradycardia and was scheduled for pacemaker placement, this will be done today ? Continue with his home blood pressure medications ? Continue with his statin ? We will can continue with his flecainide as well as his metoprolol given his history of A-fib ? Appreciate cardiology's assistance 4. DM2 ? Stable, will continue with his Lantus ? Sliding scale with Accu-Cheks ACHS ? We will make adjustments as necessary 5. BPH ? Stable ? Continue with finasteride DVT: Heparin Medications at Discharge Home Medications finasteride 5 mg tablet 5 mg PO DAILY PROSTATE #90 tabs 11/03/18 blood pressure monitor #1 ea 03/13/21 lancets 30 gauge (OneTouch Delica Lancets) #200 ea 10/26/21 pramipexole 1 mg tablet (Mirapex) 2 mg PO QHS RLS #180 tabs 12/10/21 pen needle, diabetic 31 gauge x 3/16 (BD Ultra-Fine Mini Pen Needle) #100 ea 01/23/22 flecainide 100 mg tablet 100 mg PO Q12H HEART RATE #180 tabs 04/01/22 sertraline 25 mg tablet 25 mg PO DAILY DEPRESSION 04/05/22 compress.stocking,knee,reg,lrg #2 ea 07/05/22 metoprolol succinate 25 mg tablet,extended release 24 hr 12.5 mg PO DAILY BP 07/16/22 ferrous sulfate 325 mg (65 mg iron) tablet 325 mg PO TH supplement 07/31/22 furosemide 40 mg tablet 40 mg PO DAILY FLUID 07/31/22 blood sugar diagnostic #100 ea 09/05/22 meclizine 25 mg tablet 25 mg PO TID PRN dizziness #20 tabs 10/01/22 acetaminophen 500 mg tablet 1,000 mg PO Q6H PRN Pain 10/06/22 amlodipine 10 mg tablet 5 mg PO DAILY BP 10/06/22 dulaglutide 4.5 mg/0.5 mL subcutaneous pen injector 4.5 mg subcut .COMPLEX DM 10/06/22 ergocalciferol (vitamin D2) 1,250 mcg (50,000 unit) capsule 50,000 unit PO QMONTH SUPPLEMENT 10/06/22 famotidine 40 mg tablet 40 mg PO DAILY GERD 10/06/22 hydralazine 50 mg tablet 50 mg PO BID BP 10/06/22 insulin glargine 100 unit/mL (3 mL) subcutaneous pen 30 unit subcut QAM DM 10/06/22 olmesartan 40 mg tablet 20 mg PO BID HEART 10/06/22 progesterone micronized 100 mg capsule 100 mg PO QAM HORMONE 10/06/22 simvastatin 20 mg tablet 20 mg PO QHS CHOLESTEROL 10/06/22 spironolactone 50 mg tablet 25 mg PO DAILY FLUID 10/06/22 tirzepatide 5 mg/0.5 mL subcutaneous pen injector (Mounjaro) 5 mg subcut QWEEK DM 10/06/22 prednisone 20 mg tablet 40 mg PO BREAKFAST 2 days #4 tabs 10/15/22 Hospital Course Operations None Procedures - (Pacemaker placement) Summary of Care Provided Minutes Spent on Discharge: 36 Hospital Course: Per HPI: The patient is an 82 y/o M w/ PMHx: Obesity, Hx TIA, Anxiety and Depression, RLS, PAF/Flutter s/p RFA, Hx VTE, Chronic anemia/Fe deficiency anemia, GERD w/ Hx PUD, Diabetes mellitus type II with chronic neuropathy, BPH, CKD stage III unclear subtype, MACHELLE on BIPAP q HS, Diastolic CHF, recently discharged following admission 10/06/22-10/08/22 for bradycardia and chest pain with acute CHF exacerbation with fluid restriction 1500 cc and IV lasix diuresis with cardiac catheterization performed with recommendation for medical therapy and consideration pacemaker implantation with nonobstructive CAD and noted bradycardic arrhythmias who now re-presents to the [facility] ED on 10/10/22 with history of onset over the last 24 to 48 hours of right foot pain with no specific injury or fall however significantly debilitating, sharp prompting patient to limp and eventually present to the ED for evaluation.? Patient describes the foot pain as a sharp stabbing 10 out of 10 even with light touch to the plantar aspect of the foot primarily in the midfoot dorsally.? Patient's felt as though the right foot was little bit more swollen but he did place compression stockings initially.? In the ED patient with walker attempt x2 however he had significant debility secondary to notable right foot pain.? At home he noted difficulty even attempting to get up from the restroom because of inability to bear weight on the right foot secondary to pain.? Work-up in the ED included T98.7, heart rate 73, BP 166/54, respiratory rate 16, 95% on room air, CBC with WBC 8.7, hemoglobin 10.5, MCV 94.5, platelet 183 without shift, D-dimer 0.80 normal for age, BMP with BUN/creatinine 67/2.58, glucose 154, uric acid 11, plain film of the right foot with no acute findings.? In the ED patient ministered Zofran 4 mg IV x1 as well as morphine 2 mg IV x1. Hospital Course: 1.? Right ankle pain due to gout ? Continue with prednisone appreciate podiatry's assistance ? We will continue on prednisone for period of time after discharge with outpatient follow-up. I recommended he follow-up with his PCP in 3 to 5 days. I discussed with him the plan for discharge today he expressed understanding the risk and benefits of going home and he wants to go home today. He was cleared for discharge by cardiology after follow-up on his pacemaker that was inserted on 10/14/2022. Will need to follow-up with cardiology as an outpatient as well. All of his home medications were continued. 2.? HORACE on CKD 3 ? Hyperkalemia has resolved ? Renal function is back to baseline ? Follow-up with nephrology as previously scheduled 3.? Chronic diastolic CHF/HTN/HLD/bradycardia/paroxysmal A-fib ? He did have a recent admission for chest pain and bradycardia and was scheduled for pacemaker placement, this will be done during this admission ? Continue with his home blood pressure medications ? Continue with his statin ? We will can continue with his flecainide as well as his metoprolol given his history of A-fib ? Appreciate cardiology's assistance 4.? DM2 ? Stable, will continue with his Lantus ? Sliding scale with Accu-Cheks ACHS ? We will make adjustments as necessary 5.? BPH ? Stable ? Continue with finasteride Physical Exam Narrative General: Alert, Oriented x3, Cooperative, No apparent distress HEENT: Atraumatic, PERRLA, EOMI, Normocephalic Oral: Moist Mucosa Neck: Supple, No JVD Lungs: Clear to auscultation, Normal air movement, No rhonchi, No wheeze, No rales Cardiovascular: Regular rate, Regular Rhythm, Normal S1, Normal S2, No murmurs Abdomen: Soft, Non Tender, Non-Distended, No Hepato-splenomegaly Extremities: No edema, Capillary Refill Less than 3 Seconds Skin: No rashes, No breakdown Musculoskeletal: No Tenderness to Palpation of Joints or Extremities Neurological: Cranial nerves II-XII grossly intact, Motor Exam 5/5 strength throughout, Sensory exam intact to light touch and pain Psych/Mental Status: Normal Affect, Appropriate Weight / BMI Weight Weight: 285 lb 0.923 oz Body Mass Index (BMI) 38.6 ABG / Lab / Microbiology Data Result Diagrams: 10/15/22 04:32 10/15/22 04:32 Laboratory: Laboratory Results - last 24 hr 10/14/22 15:55: POC Glucose 109 H 10/14/22 20:53: POC Glucose 163 H 10/15/22 04:32: WBC 7.3, RBC 3.49 L, Hgb 10.4 L, Hct 34.2 L, MCV 98.0 H, MCH 29.8, MCHC 30.4 L, RDW Std Deviation 48.2 H, RDW Coeff of Flavio 13.5, Plt Count 201, MPV 10.4, Immature Gran % (Auto) 1.100 H, Neut % (Auto) 60.9, Lymph % (Auto) 25.2, Mariposa % (Auto) 9.9, Eos % (Auto) 2.1, Baso % (Auto) 0.8, Absolute Neuts (auto) 4.4, Absolute Lymphs (auto) 1.83, Nucleated RBC % 0 10/15/22 04:32: Sodium 140, Potassium 4.8, Chloride 110 H, Carbon Dioxide 24.0, Anion Gap 6, BUN 50 H, Creatinine 1.49 H, Estim Creat Clear Calc 41.23, Est GFR (MDRD) Af Amer 58 L, Est GFR (MDRD) Non-Af 48 L, BUN/Creatinine Ratio 33.6 H, Glucose 178 H, Calcium 8.5 10/15/22 06:43: POC Glucose 143 H 10/15/22 11:00: POC Glucose 225 H Radiography Diagnostic Testing: Radiology Impression Chest X-Ray 10/15/22 05:55 IMPRESSION: Moderate cardiomegaly. Electronically Signed: Jake Resendiz MD at 4:36 EST Reading Location ID and State: [address] [place] [address] Tel , Service support , D/C Instructions Discharge Diet: Low fat / Low cholesterol and Carb Control Diet Additional Activity Instructions: May shower or bathe on [day 3]. Do not scrub the incision or soak in the tub. Just wash with soap and let the water run over the incision. Gently pat dry with towel. Medications: Take your pain medication as directed. Refer to your discharge instruction sheet for a list of medications you are to take. Call your doctor if your incision/area has: Continuous Slow Oozing, Sudden Increased Bleeding, Increased Pain/ Swelling, Increased Redness, Foul Smelling Discharge and Swelling at the incision site Call your doctor if you observe: Fever of 101 or Higher, Shortness of breath, Dizziness, Fainting spells, Swelling in the ankles, Chest pain and Increased palpitations (irregular heartbeat) Suture Line Care: Avoid Pulling/Pushing and Avoid Pinching/Bending Cleanse incision/area with: Keep Dressing Clean & Dry Additional Dressing/Incision Instructions: When dressing is removed, wash and dry incision. Keep covered with a light bandage if it is rubbing against your clothing. Do not cover the incision with an airtight bandage. Change the bandage daily. Do not remove steri strips. The strips will fall off on their own. Please Follow Up With: Sajan Rogers MD When: Pacer follow up on October 22, 2022 at 2 PM Meaningful Use Info Meaningful Use Diagnoses (Choose all that apply): None applicable Discharge Plan Admission Admit Date/Time: 10/10/22 02:33 Attending Provider: Franco Rausch Primary Care Provider: Tosha Shrestha Consulting Providers: Lianna Garcia ; Edward Carr ; Anay Hernandez ; Clarice Fontenot Instructions Additional Instructions / Restrictions: Follow-up with your PCP as an outpatient to monitor your gout flare, you will likely need outpatient labs and medication adjustments. Discharge Orders/Prescriptions Prescriptions: New prednisone 20 mg Tablet 40 mg PO BREAKFAST 2 Days Qty: 4 0RF Continued (DME) blood pressure monitor Kit See Rx Instructions .ROUTE .MEDSUPPLY Qty: 1 0RF Rx Instructions: check blood pressure daily (DME) lancets [OneTouch Delica Lancets] 30 gauge misc See Rx Instructions .ROUTE .MEDSUPPLY Qty: 200 3RF Rx Instructions: check blood sugar tid for type 2 DM pramipexole [Mirapex] 1 mg tablet 2 mg PO QHS Qty: 180 3RF furosemide 40 mg tablet 40 mg PO DAILY sertraline 25 mg tablet 25 mg PO DAILY (DME) compress.stocking,knee,reg,lrg Misc See Rx Instructions .MEDSUPPLY Qty: 2 1RF Rx Instructions: wear daily for venous insufficiency 20-30 mmHg ferrous sulfate 325 mg (65 mg iron) tablet 325 mg PO TH Rx Instructions: only acetaminophen 500 mg Tablet 1,000 mg PO Q6H PRN (Reason: Pain) spironolactone 50 mg tablet 25 mg PO DAILY famotidine 40 mg tablet 40 mg PO DAILY amlodipine 10 mg tablet 5 mg PO DAILY simvastatin 20 mg tablet 20 mg PO QHS hydralazine 50 mg tablet 50 mg PO BID ergocalciferol (vitamin D2) 1,250 mcg (50,000 unit) capsule 50,000 unit PO QMONTH progesterone micronized 100 mg capsule 100 mg PO QAM olmesartan 40 mg tablet 20 mg PO BID insulin glargine 100 unit/mL (3 mL) insulin pen 30 unit subcut QAM dulaglutide 4.5 mg/0.5 mL pen injector 4.5 mg SC .COMPLEX Rx Instructions: 4.5 mg subcut every friday Mounjaro 5 mg/0.5 mL pen injector 5 mg subcut QWEEK finasteride 5 mg tablet 5 mg PO DAILY Qty: 90 3RF (DME) pen needle, diabetic [BD Ultra-Fine Mini Pen Needle] 31 gauge x 3/16 needle See Rx Instructions .ROUTE .MEDSUPPLY Qty: 100 3RF Rx Instructions: daily for type 2 dm flecainide 100 mg tablet 100 mg PO Q12H Qty: 180 2RF Hold Instructions: bradycardia 07/09 metoprolol succinate 25 mg tablet extended release 24 hr 12.5 mg PO DAILY (DME) blood sugar diagnostic Strip See Rx Instructions .ROUTE .MEDSUPPLY Qty: 100 3RF Rx Instructions: One Touch Elena test strip, use to test blood sugar 3 times daily. Dx E11.42 meclizine 25 mg tablet 25 mg PO TID PRN (Reason: dizziness) Qty: 20 0RF Referrals / Follow Up: Ronnie Dyer NP, [employer]ING MACHINE OPERATOR-C [Med Staff - Adv Practice Prof] - 11/12/22 1:30 pm Caden Dale NP D[employer]ING MACHINE OPERATOR-C [Med Staff - Adv Practice Prof] - 10/24/22 1:00 pm Disposition Disposition (needs filled in before D/C Order can be placed): Home, Self Care Charges/Coding Visit Charges Inpatient E&M: 09548 Disch Hosp >30min
== END 2022-10-15 13:27 | disposition home or self-care (01) | DRG 982 ==
LOC: ED 10-10 02:38 → PCU 10-10 02:49
PROVIDERS: Student in an Organized Health Care Education/Training Program; Admitting Provider Family Medicine; Emergency Provider Emergency Medicine; PCP Internal Medicine; Visit Provider Family Medicine
DX: M10.071 Idiopathic gout, right ankle and foot (principal); N17.9 Acute kidney failure, unspecified; I48.92 Unspecified atrial flutter; I13.0 Hypertensive heart and chronic kidney disease with heart failure and stage 1 through stage 4 chronic kidney disease, or unspecified chronic kidney disease; I50.32 Chronic diastolic (congestive) heart failure; I49.5 Sick sinus syndrome; D63.1 Anemia in chronic kidney disease; E11.22 Type 2 diabetes mellitus with diabetic chronic kidney disease; I48.0 Paroxysmal atrial fibrillation; G25.81 Restless legs syndrome; E11.42 Type 2 diabetes mellitus with diabetic polyneuropathy; Z79.4 Long term (current) use of insulin; N18.32 Chronic kidney disease, stage 3b; E11.65 Type 2 diabetes mellitus with hyperglycemia; M76.821 Posterior tibial tendinitis, right leg; D50.0 Iron deficiency anemia secondary to blood loss (chronic); E78.5 Hyperlipidemia, unspecified; G47.33 Obstructive sleep apnea (adult) (pediatric); I25.10 Atherosclerotic heart disease of native coronary artery without angina pectoris; E87.5 Hyperkalemia; F41.9 Anxiety disorder, unspecified; R00.1 Bradycardia, unspecified; F32.A Depression, unspecified; N40.0 Benign prostatic hyperplasia without lower urinary tract symptoms; X58.XXXA Exposure to other specified factors, initial encounter; E66.9 Obesity, unspecified; Z68.38 Body mass index [BMI] 38.0-38.9, adult; Z95.0 Presence of cardiac pacemaker; Z79.52 Long term (current) use of systemic steroids; Z79.82 Long term (current) use of aspirin; Z79.899 Other long term (current) drug therapy; Z86.73 Personal history of transient ischemic attack (TIA), and cerebral infarction without residual deficits
CPT/HCPCS: 33208; 36415; 71047; 73630; 73721; 80048; 80053; 82962; 84550; 85025; 85379; 93005; 93923; 93970; 94640; 94668; 97110; 97162; 97166; 97530; 97535; 99152; 99153; 99252; 99284; J7030; J7040; J7050; A4216; C1894; G0463; J0610; J2405

== ENCOUNTER → 2022-10-24 | Outpatient (CLI) | payer MEDICARE, BC, SELFPAY ==
[2022-10-24 15:57] LABS: ALB/GLOB Ratio 1.2 RATIO (0.9-2.4); AST(SGOT) 17 U/L (15-37); Alanine Aminotransfer ALT/SGPT 26 U/L (16-61); Albumin, Serum 3.6 g/dL (3.2-5.0); Alkaline Phosphatase 69 U/L (45-117); Anion Gap 8 (5-15); BUN 37 mg/dL (7-18); BUN/Creat Ratio 23.1 RATIO (10-20); Chloride 109 mmol/L (98-107); EST Glomerular Filtration Rate 44 mL/min (>60); Est Glom Filt Rate - Afr Amer 53 mL/min (>60); Glucose 180 mg/dL (74-106); Potassium 5.1 mmol/L (3.5-5.1); Protein, Total 6.6 g/dL (6.4-8.2); Sodium Level 141 mmol/L (136-145); Uric Acid 8.5 mg/dL (3.5-7.2)
== END | disposition home or self-care (01) ==
LOC: BIMLAB 13:19
PROVIDERS: PCP Internal Medicine; Referring Provider Nurse Practitioner Family; Visit Provider Nurse Practitioner Family
DX: M10.9 Gout, unspecified (principal)
CPT/HCPCS: 36415; 80053; 82043; 82570; 84550

== ENCOUNTER 2022-11-04 10:33 | Emergency (ER) | payer MEDICARE, BC, SELFPAY ==
[2022-11-04] VITALS (8 sets, daily range): BP systolic 136–170; BP diastolic 56–62; PULSE 58–75; RESP 13–24; TEMP 35.7; O2SAT 92–97; BMI 40.0
--- NOTE | 2022-11-04 10:53 | EKG12_ITS ---
Test Reason : Blood Pressure : / mmHG Vent. Rate : 066 BPM Atrial Rate : 066 BPM P-R Int : 000 ms QRS Dur : 204 ms QT Int : 514 ms P-R-T Axes : 000 -62 081 degrees QTc Int : 538 ms Ventricular-paced rhythm Abnormal ECG Confirmed by JORDIN DUNCAN, SYBIL ([id number]), sports editor NITZA ROJAS ([id number]) on 11/05/2022 8:41:49 AM Referred By: BRANDON Confirmed By:SYBIL BRENNER MD
--- NOTE | 2022-11-04 10:55 | EX.ED.DYSGE1 ---
HPI <Choco Salazar MD - Last Filed: 11/04/22 15:06> History of Present Illness Chief Complaint: General Illness Narrative Narrative: 82-year-old male past medical history of pacemaker insertion reportedly secondary to bradycardia, history of atrial flutter presents with generalized weakness that began yesterday evening/early this morning. He states that he had a pacemaker inserted at the end of September, approximately 3 weeks ago. Over the weekend, he had multiple episodes of nonbloody diarrhea, which ceased yesterday afternoon around noon. This morning he awoke and has weakness of his arms and legs. He feels that he does not have enough energy to get up. His called the squad because of his generalized weakness. He states he might feel somewhat short of breath, but this can be normal for him. He denies any fevers or chills. No dysuria or hematuria, no other symptoms. [facility] <Choco Salazar MD - Last Filed: 11/04/22 15:06> [facility] Medical History (HFpEF) heart failure with preserved ejection fraction (12/12/20) Acute respiratory failure with hypoxia Anemia Anemia of chronic renal failure, stage 3 (moderate) Anxiety and depression Atherosclerotic heart disease of [place] coronary artery without angina pectoris Atrial flutter Atypical chest pain Back pain BMI 34.0-34.9,adult BPH (benign prostatic hyperplasia) BPPV (benign paroxysmal positional vertigo) Bradycardia Cardiac dysrhythmia Cardiology follow-up encounter CHF (congestive heart failure) CHF (congestive heart failure) De Quervain's tenosynovitis Debility Depression Dermatitis Diabetes mellitus Diabetic kidney disease Dizziness DM type 2 with diabetic peripheral neuropathy DVT (deep venous thrombosis) Dyslipidemia Dysphagia Essential (primary) hypertension Fall Flu vaccine need Fracture of great toe Gastric reflux Gout Gout flare Health care maintenance History of echocardiogram History of edema History of GI bleed History of peptic ulcer History of renal calculi History of ulceration HLD (hyperlipidemia) Injury of head and neck Iron deficiency anemia Iron deficiency anemia due to chronic blood loss Kidney hematoma (12/08/20) Left knee pain Left leg DVT Loss of equilibrium Low iron Malaise Near syncope Orthostatic hypotension MACHELLE (obstructive sleep apnea) Pain of left lower extremity Paroxysmal atrial fibrillation Paroxysmal atrial flutter Pneumonia Polypharmacy 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 Presence of cardiac pacemaker Prostate disease Psoriasis Recurrent syncope (06/19/22) Renal calculi RLS (restless legs syndrome) Sex disorder Sick sinus syndrome Suicidal ideation SVT (supraventricular tachycardia) TIA (transient ischemic attack) Type 2 diabetes mellitus with diabetic polyneuropathy Urolithiasis Venous insufficiency of both lower extremities Vertigo Walker as ambulation aid Wears glasses Home Medications finasteride 5 mg tablet 5 mg PO DAILY PROSTATE #90 tabs 11/03/18 [Rx Last Taken 10/05/22] blood pressure monitor #1 ea 03/13/21 [Rx Last Taken Unknown] lancets 30 gauge (Verified Identity Passuch Delica Lancets) #200 ea 10/26/21 [Rx Last Taken Unknown] pramipexole 1 mg tablet (Mirapex) 2 mg PO QHS RLS #180 tabs 12/10/21 [Rx Last Taken 10/05/22] pen needle, diabetic 31 gauge x 3/16 (BD Ultra-Fine Mini Pen Needle) #100 ea 01/23/22 [Rx Last Taken Unknown] flecainide 100 mg tablet 100 mg PO Q12H HEART RATE #180 tabs 04/01/22 [Rx Last Taken 10/05/22] sertraline 25 mg tablet 25 mg PO DAILY DEPRESSION 04/05/22 [History Last Taken 10/05/22] compress.stocking,knee,reg,lrg #2 ea 07/05/22 [Rx Last Taken Unknown] metoprolol succinate 25 mg tablet,extended release 24 hr 12.5 mg PO DAILY BP 07/16/22 [History Last Taken 10/05/22] ferrous sulfate 325 mg (65 mg iron) tablet 325 mg PO TH supplement 07/31/22 [History Last Taken 10/03/22] furosemide 40 mg tablet 40 mg PO DAILY FLUID 07/31/22 [History Last Taken 10/05/22] blood sugar diagnostic #100 ea 09/05/22 [Rx Last Taken Unknown] acetaminophen 500 mg tablet 1,000 mg PO Q6H PRN Pain 10/06/22 [History Last Taken 10/06/22 03:00] amlodipine 10 mg tablet 5 mg PO DAILY BP 10/06/22 [History Last Taken 10/05/22] ergocalciferol (vitamin D2) 1,250 mcg (50,000 unit) capsule 50,000 unit PO QMONTH SUPPLEMENT 10/06/22 [History Last Taken 09/18/22] famotidine 40 mg tablet 40 mg PO DAILY GERD 10/06/22 [History Last Taken 10/05/22] hydralazine 50 mg tablet 50 mg PO BID BP 10/06/22 [History Last Taken 10/05/22] insulin glargine 100 unit/mL (3 mL) subcutaneous pen 30 unit subcut QAM DM 10/06/22 [History Last Taken 10/05/22] olmesartan 40 mg tablet 20 mg PO BID HEART 10/06/22 [History Last Taken 10/05/22] progesterone micronized 100 mg capsule 100 mg PO QAM HORMONE 10/06/22 [History Last Taken 10/05/22] simvastatin 20 mg tablet 20 mg PO QHS CHOLESTEROL 10/06/22 [History Last Taken 10/05/22] spironolactone 50 mg tablet 25 mg PO DAILY FLUID 10/06/22 [History Last Taken 10/05/22] tirzepatide 5 mg/0.5 mL subcutaneous pen injector (Mounjaro) 5 mg subcut QWEEK DM 10/06/22 [History Last Taken Unknown] prednisone 20 mg tablet 40 mg PO BREAKFAST 2 days #4 tabs 10/15/22 [Rx Last Taken Unknown] colchicine 0.6 mg tablet (Colcrys) 0.6 mg PO DAILY gout treatment #3 tabs 10/24/22 [Rx Last Taken Unknown] dulaglutide 4.5 mg/0.5 mL subcutaneous pen injector 4.5 mg (0.5 mL) subcut .COMPLEX DM #2 mL 10/24/22 [Rx Last Taken Unknown] meclizine 25 mg tablet 25 mg PO TID PRN dizziness #90 tabs 10/24/22 [Rx Last Taken Unknown] Allergy/AdvReac Type Severity Reaction Status Date / Time hydrocodone bitartrate AdvReac Severe Other Verified 10/24/22 12:54 [From Vicodin] hydroxyzine AdvReac Severe Other Verified 10/24/22 12:54 Family History Father Diabetes Hypertension Cancer Lung cancer Mother Hypertension CVA (cerebral vascular accident) Sister Diabetes Son Diabetes Surgical History History of cardioversion (2015) History of cataract surgery History of left heart catheterization (02/16/13) History of lithotripsy (11/2020) History of loop recorder (06/26/22) History of radiofrequency ablation procedure for cardiac arrhythmia (02/05/06) history of right knee cap fracture History of right knee surgery Status post laser lithotripsy of ureteral calculus Status post left foot surgery STENT PLACEMENT FOR KIDNEY STONE Social History household members: spouse housing: house Smoking Status: Never smoker how long ago did patient quit smokin second hand exposure: No alcohol intake: never substance use type: does not use caffeine: No what type of physical activity do you participate in: none seatbelt use: always do you feel safe at home: Yes ROS <Choco Salazar MD - Last Filed: 11/04/22 15:06> ROS ED ROS Narrative Constitutional: No fever, no chills. Generalized weakness. HEENT: No sore throat. No neck pain. No loss of vision. No rhinorrhea. Cardiovascular: No chest pain. No palpitations. Chronic pedal edema. Respiratory: No cough, chronic shortness of breath. Abdominal: No abdominal pain. No nausea. No vomiting. Genitourinary: No dysuria. No hematuria. Musculoskeletal: No myalgias. No arthralgias. Neurologic: No headaches. No dizziness. No lightheadedness. Skin: No rash. No change in color. Psychiatric: No depression. No anxiety. EXAM <Choco Salazar MD - Last Filed: 11/04/22 15:06> Physical Exam Narrative Exam Narrative: Afebrile. Vital signs noted. HEENT: Normocephalic. Atraumatic. PERRL, EOMI. Neck soft and supple. No point tenderness or step off. Cardiovascular: Regular rate and rhythm. No murmurs, rubs, or gallops appreciated. Respiratory: No tachypnea. Lungs clear to auscultation bilaterally. Gastrointestinal: Abdomen soft, nontender, with normoactive bowel sounds. No rebound or guarding. Neurological: Awake. Alert. Oriented to person, place, and time. Nonfocal, nonlateralizing. Skin: No rash. Normal color. No pallor. Musculoskeletal: Bilateral, symmetric pretibial/pedal edema. Full range of motion extremities. Const Vital Signs: 11/04/22 10:34 11/04/22 11:03 11/04/22 11:04 Temperature 96.2 F L Temperature Source Temporal Pulse Rate 75 Respiratory Rate 24 H Respiratory Effort Normal Normal Respiratory Pattern Normal Normal Blood Pressure 164/61 H Blood Pressure Mean 95 Pulse Ox 95 Oxygen Delivery Method Room Air 11/04/22 12:16 11/04/22 12:29 11/04/22 13:06 Temperature Temperature Source Pulse Rate 60 58 L Respiratory Rate 13 13 Respiratory Effort Respiratory Pattern Blood Pressure 147/60 H 140/56 H Blood Pressure Mean 89 84 Pulse Ox 96 97 Oxygen Delivery Method Room Air Room Air 11/04/22 14:19 11/04/22 15:03 11/04/22 16:04 Temperature Temperature Source Pulse Rate 59 L 60 64 Respiratory Rate 20 H 19 H 18 Respiratory Effort Respiratory Pattern Blood Pressure 141/58 H 136/62 H 170/57 H Blood Pressure Mean 85 86 94 Pulse Ox 92 95 95 Oxygen Delivery Method Room Air 11/04/22 16:08 Temperature Temperature Source Pulse Rate 62 Respiratory Rate 16 Respiratory Effort Respiratory Pattern Blood Pressure 170/57 H Blood Pressure Mean Pulse Ox 95 Oxygen Delivery Method <Dr. Manohar Trevino MD - Last Filed: 11/04/22 22:47> Physical Exam Const Vital Signs: 11/04/22 10:34 11/04/22 11:03 11/04/22 11:04 Temperature 96.2 F L Temperature Source Temporal Pulse Rate 75 Respiratory Rate 24 H Respiratory Effort Normal Normal Respiratory Pattern Normal Normal Blood Pressure 164/61 H Blood Pressure Mean 95 Pulse Ox 95 Oxygen Delivery Method Room Air 11/04/22 12:16 11/04/22 12:29 11/04/22 13:06 Temperature Temperature Source Pulse Rate 60 58 L Respiratory Rate 13 13 Respiratory Effort Respiratory Pattern Blood Pressure 147/60 H 140/56 H Blood Pressure Mean 89 84 Pulse Ox 96 97 Oxygen Delivery Method Room Air Room Air 11/04/22 14:19 11/04/22 15:03 11/04/22 16:04 Temperature Temperature Source Pulse Rate 59 L 60 64 Respiratory Rate 20 H 19 H 18 Respiratory Effort Respiratory Pattern Blood Pressure 141/58 H 136/62 H 170/57 H Blood Pressure Mean 85 86 94 Pulse Ox 92 95 95 Oxygen Delivery Method Room Air 11/04/22 16:08 Temperature Temperature Source Pulse Rate 62 Respiratory Rate 16 Respiratory Effort Respiratory Pattern Blood Pressure 170/57 H Blood Pressure Mean Pulse Ox 95 Oxygen Delivery Method [facility] <Choco Salazar MD - Last Filed: 11/04/22 15:06> [facility] Narrative Medical decision making narrative: Comprehensive work-up was pursued. Patient may be dehydrated secondary to his multiple episodes of diarrhea. He is not having abdominal pain. He is alert and oriented and so I do not feel that CT of the brain is indicated. I will obtain a chest x-ray to rule out pneumonia. Also, given his generalized weakness he will be swabbed for COVID and influenza. I will check a urinalysis to rule out infection and obtain basic laboratory work to help rule out dehydration. EKG was obtained and interpreted by myself. I interpreted his EKG as ventricular paced rhythm at 66 bpm without ectopy or acute ST changes. No STEMI. I reviewed the patient's laboratory results, he has normal white count of 5.4, hemoglobin stable at 11.0, hematocrit 35.7. Platelet count normal at 163. Chloride slightly elevated at 111 but normal sodium of 139 and normal potassium of 5.1. Lactic acid is normal at 1.7. BUN is slightly elevated at 42 with a creatinine of 1.47. BNP slightly elevated at 153. I interpreted his chest x-ray is cardiomegaly with very mild interstitial edema. I reviewed the radiology report which confirms my independent interpretation., They do say state that there is cardiomegaly and CHF. However, his BNP is only 153 as stated previously. At this point in time, patient states that he feels weak still and cannot go home. While he has home health care that comes, his leaves him for dialysis, and he feels that he cannot manage at home because of his weakness. I discussed the patient with case management/social work to see if he qualifies for placement in a retirement facility from the emergency department. This is currently pending. At this point in time, he will be signed out to the oncoming physician, Dr. Manohar Trevino to make final disposition on this patient. If he is unable to be placed directly from the emergency department, he will discuss patient with the hospitalist for observation for generalized weakness. Patient is in stable condition. History & Record Review Discussion w/independent historian: Patient and Family Additional record(s) reviewed:: Prior ED visit Lab Data Attestation: I reviewed the patient's lab results. Labs: Laboratory Results - last 24 hr 11/04/22 11/04/22 11/04/22 11:18 11:18 11:18 WBC 5.4 RBC 3.66 L Hgb 11.0 L Hct 35.7 L MCV 97.5 H MCH 30.1 MCHC 30.8 L RDW Std Deviation 47.3 H RDW Coeff of Flavio 13.2 Plt Count 163 MPV 9.6 Immature Gran % (Auto) 0.600 Neut % (Auto) 59.4 Lymph % (Auto) 24.7 Hodgeman % (Auto) 9.8 Eos % (Auto) 4.8 Baso % (Auto) 0.7 Absolute Neuts (auto) 3.2 Absolute Lymphs (auto) 1.34 Nucleated RBC % 0 Sodium 139 Potassium 5.1 Chloride 111 H Carbon Dioxide 20.0 L Anion Gap 8 BUN 42 H Creatinine 1.47 H Estim Creat Clear Calc 41.79 Est GFR (MDRD) Af Amer 59 L Est GFR (MDRD) Non-Af 49 L BUN/Creatinine Ratio 28.6 H Glucose 181 H Lactic Acid 1.7 Calcium 9.2 Total Bilirubin 0.30 AST 24 ALT 35 Alkaline Phosphatase 76 Troponin I High Sens 17 B-Natriuretic Peptide Total Protein 7.5 Albumin 3.7 Globulin 3.8 Albumin/Globulin Ratio 1.0 Urine Color Urine Clarity Urine pH Ur Specific Ada Urine Protein Urine Glucose (UA) Urine Ketones Urine Occult Blood Urine Nitrite Urine Bilirubin Urine Urobilinogen Ur Leukocyte Esterase Urine RBC Urine WBC Ur Squamous Epith Cells Urine Bacteria Urine Mucus 11/04/22 11/04/22 11:18 12:50 WBC RBC Hgb Hct MCV MCH MCHC RDW Std Deviation RDW Coeff of Flavio Plt Count MPV Immature Gran % (Auto) Neut % (Auto) Lymph % (Auto) Hodgeman % (Auto) Eos % (Auto) Baso % (Auto) Absolute Neuts (auto) Absolute Lymphs (auto) Nucleated RBC % Sodium Potassium Chloride Carbon Dioxide Anion Gap BUN Creatinine Estim Creat Clear Calc Est GFR (MDRD) Af Amer Est GFR (MDRD) Non-Af BUN/Creatinine Ratio Glucose Lactic Acid Calcium Total Bilirubin AST ALT Alkaline Phosphatase Troponin I High Sens B-Natriuretic Peptide 153.0 H Total Protein Albumin Globulin Albumin/Globulin Ratio Urine Color Yellow Urine Clarity Clear Urine pH 6.0 Ur Specific Ada 1.010 Urine Protein 30 H Urine Glucose (UA) Normal Urine Ketones Negative Urine Occult Blood Negative Urine Nitrite Negative Urine Bilirubin Negative Urine Urobilinogen Normal Ur Leukocyte Esterase Negative Urine RBC 0 SEEN Urine WBC 0 SEEN Ur Squamous Epith Cells 0 SEEN Urine Bacteria 0 SEEN Urine Mucus 0 SEEN Radiography Diagnostic Testing: Clinical Impression(s) from Imaging Studies Chest X-Ray 11/04/22 12:23 IMPRESSION: Cardiomegaly. CHF. Electronically Signed: Leo Fay MD at 13:05 EDT , <Dr. Manohar Trevino MD - Last Filed: 11/04/22 22:47> [facility] MDM Narrative Medical decision making narrative: Comprehensive work-up was pursued. Patient may be dehydrated secondary to his multiple episodes of diarrhea. He is not having abdominal pain. He is alert and oriented and so I do not feel that CT of the brain is indicated. I will obtain a chest x-ray to rule out pneumonia. Also, given his generalized weakness he will be swabbed for COVID and influenza. I will check a urinalysis to rule out infection and obtain basic laboratory work to help rule out dehydration. EKG was obtained and interpreted by myself. I interpreted his EKG as ventricular paced rhythm at 66 bpm without ectopy or acute ST changes. No STEMI. I reviewed the patient's laboratory results, he has normal white count of 5.4, hemoglobin stable at 11.0, hematocrit 35.7. Platelet count normal at 163. Chloride slightly elevated at 111 but normal sodium of 139 and normal potassium of 5.1. Lactic acid is normal at 1.7. BUN is slightly elevated at 42 with a creatinine of 1.47. BNP slightly elevated at 153. I interpreted his chest x-ray is cardiomegaly with very mild interstitial edema. I reviewed the radiology report which confirms my independent interpretation., They do say state that there is cardiomegaly and CHF. However, his BNP is only 153 as stated previously. At this point in time, patient states that he feels weak still and cannot go home. While he has home health care that comes, his leaves him for dialysis, and he feels that he cannot manage at home because of his weakness. I discussed the patient with case management/social work to see if he qualifies for placement in a retirement facility from the emergency department. This is currently pending. At this point in time, he will be signed out to the oncoming physician, Dr. Manohar Trevino to make final disposition on this patient. If he is unable to be placed directly from the emergency department, he will discuss patient with the hospitalist for observation for generalized weakness. Patient is in stable condition. Patient has been accepted at retirement facility. His would like to take him there. Plan will be to assist her getting him into the car. They have evidently made calls and contact this with the nursing facility. We will go with this plan per patient and family request. Lab Data Labs: Laboratory Results - last 24 hr 11/04/22 11/04/22 11/04/22 11:18 11:18 11:18 WBC 5.4 RBC 3.66 L Hgb 11.0 L Hct 35.7 L MCV 97.5 H MCH 30.1 MCHC 30.8 L RDW Std Deviation 47.3 H RDW Coeff of Flavio 13.2 Plt Count 163 MPV 9.6 Immature Gran % (Auto) 0.600 Neut % (Auto) 59.4 Lymph % (Auto) 24.7 Hodgeman % (Auto) 9.8 Eos % (Auto) 4.8 Baso % (Auto) 0.7 Absolute Neuts (auto) 3.2 Absolute Lymphs (auto) 1.34 Nucleated RBC % 0 Sodium 139 Potassium 5.1 Chloride 111 H Carbon Dioxide 20.0 L Anion Gap 8 BUN 42 H Creatinine 1.47 H Estim Creat Clear Calc 41.79 Est GFR (MDRD) Af Amer 59 L Est GFR (MDRD) Non-Af 49 L BUN/Creatinine Ratio 28.6 H Glucose 181 H Lactic Acid 1.7 Calcium 9.2 Total Bilirubin 0.30 AST 24 ALT 35 Alkaline Phosphatase 76 Troponin I High Sens 17 B-Natriuretic Peptide Total Protein 7.5 Albumin 3.7 Globulin 3.8 Albumin/Globulin Ratio 1.0 Urine Color Urine Clarity Urine pH Ur Specific Ada Urine Protein Urine Glucose (UA) Urine Ketones Urine Occult Blood Urine Nitrite Urine Bilirubin Urine Urobilinogen Ur Leukocyte Esterase Urine RBC Urine WBC Ur Squamous Epith Cells Urine Bacteria Urine Mucus 11/04/22 11/04/22 11:18 12:50 WBC RBC Hgb Hct MCV MCH MCHC RDW Std Deviation RDW Coeff of Flavio Plt Count MPV Immature Gran % (Auto) Neut % (Auto) Lymph % (Auto) Hodgeman % (Auto) Eos % (Auto) Baso % (Auto) Absolute Neuts (auto) Absolute Lymphs (auto) Nucleated RBC % Sodium Potassium Chloride Carbon Dioxide Anion Gap BUN Creatinine Estim Creat Clear Calc Est GFR (MDRD) Af Amer Est GFR (MDRD) Non-Af BUN/Creatinine Ratio Glucose Lactic Acid Calcium Total Bilirubin AST ALT Alkaline Phosphatase Troponin I High Sens B-Natriuretic Peptide 153.0 H Total Protein Albumin Globulin Albumin/Globulin Ratio Urine Color Yellow Urine Clarity Clear Urine pH 6.0 Ur Specific Ada 1.010 Urine Protein 30 H Urine Glucose (UA) Normal Urine Ketones Negative Urine Occult Blood Negative Urine Nitrite Negative Urine Bilirubin Negative Urine Urobilinogen Normal Ur Leukocyte Esterase Negative Urine RBC 0 SEEN Urine WBC 0 SEEN Ur Squamous Epith Cells 0 SEEN Urine Bacteria 0 SEEN Urine Mucus 0 SEEN Radiography Diagnostic Testing: Clinical Impression(s) from Imaging Studies Chest X-Ray 11/04/22 12:23 IMPRESSION: Cardiomegaly. CHF. Electronically Signed: Leo Fay MD at 13:05 EDT , Discharge Plan Triage Chief Complaint: General Illness Other Complaint: Shortness of Breath ED Provider: Choco Salazra Dx/Rx/DC Orders Clinical Impression: Episode of generalized weakness, Diarrhea, Unable to walk, Dialysis patient Instructions: ED Weakness (Uncertain Cause) Prescriptions: No Action (DME) blood pressure monitor Kit See Rx Instructions .ROUTE .MEDSUPPLY Qty: 1 0RF Rx Instructions: check blood pressure daily (DME) lancets [OneTouch Delica Lancets] 30 gauge misc See Rx Instructions .ROUTE .MEDSUPPLY Qty: 200 3RF Rx Instructions: check blood sugar tid for type 2 DM pramipexole [Mirapex] 1 mg tablet 2 mg PO QHS Qty: 180 3RF furosemide 40 mg tablet 40 mg PO DAILY sertraline 25 mg tablet 25 mg PO DAILY (DME) compress.stocking,knee,reg,lrg Misc See Rx Instructions .MEDSUPPLY Qty: 2 1RF Rx Instructions: wear daily for venous insufficiency 20-30 mmHg dulaglutide 4.5 mg/0.5 mL pen injector 4.5 mg SC .COMPLEX Qty: 2 2RF Rx Instructions: 4.5 mg subcut every friday colchicine [Colcrys] 0.6 mg tablet 0.6 mg PO DAILY Qty: 3 2RF Rx Instructions: 1.2 mg x 1 dose, then .6 mg 1 hour later meclizine 25 mg tablet 25 mg PO TID PRN (Reason: dizziness) Qty: 90 0RF ferrous sulfate 325 mg (65 mg iron) tablet 325 mg PO Rx Instructions: only acetaminophen 500 mg Tablet 1,000 mg PO Q6H PRN (Reason: Pain) spironolactone 50 mg tablet 25 mg PO DAILY famotidine 40 mg tablet 40 mg PO DAILY amlodipine 10 mg tablet 5 mg PO DAILY simvastatin 20 mg tablet 20 mg PO QHS hydralazine 50 mg tablet 50 mg PO BID ergocalciferol (vitamin D2) 1,250 mcg (50,000 unit) capsule 50,000 unit PO QMONTH progesterone micronized 100 mg capsule 100 mg PO QAM olmesartan 40 mg tablet 20 mg PO BID insulin glargine 100 unit/mL (3 mL) insulin pen 30 unit subcut QAM Mounjaro 5 mg/0.5 mL pen injector 5 mg subcut QWEEK finasteride 5 mg tablet 5 mg PO DAILY Qty: 90 3RF (DME) pen needle, diabetic [BD Ultra-Fine Mini Pen Needle] 31 gauge x 3/16 needle See Rx Instructions .ROUTE .MEDSUPPLY Qty: 100 3RF Rx Instructions: daily for type 2 dm flecainide 100 mg tablet 100 mg PO Q12H Qty: 180 2RF Hold Instructions: bradycardia 07/09 metoprolol succinate 25 mg tablet extended release 24 hr 12.5 mg PO DAILY (DME) blood sugar diagnostic Strip See Rx Instructions .ROUTE .MEDSUPPLY Qty: 100 3RF Rx Instructions: One Touch Elena test strip, use to test blood sugar 3 times daily. Dx E11.42 prednisone 20 mg tablet 40 mg PO BREAKFAST 2 Days Qty: 4 0RF Primary Care Provider: Tosha Shrestha Referrals: Tosha Shrestha MD [Primary Care Provider] - Disposition Disposition: [facility] Facility Discharge Location: [facility] Discharge Date/Time: 11/04/22 16:16
[2022-11-04 11:29] LABS: Absolute Lymphocyte Count 1.34 X10^3/uL (0.83-4.51); Absolute Neutrophil Count 3.2 X10^3/uL (2.0-7.7); Basophil# 0.04 X10^3/uL; Basophil% 0.7 % (0-1); Eosinophil# 0.26 X10^3/uL; Eosinophils% 4.8 % (0-5); Hematocrit 35.7 % (40-54); Lymphocyte # 1.34 X10^3/ul (0.83-4.51); Lymphocyte % 24.7 % (19-41); Mean Corp Hgb Conc 30.8 g/dL (32-36); Mean Corpuscular Hgb 30.1 pg (27.0-32.0); Mean Corpuscular Volume 97.5 fL (80-94); Mean Platelet Vol. 9.6 fl (6.2-12.0); Monocyte# 0.53 X10^3/uL; Monocyte% 9.8 % (0-10); NRBC Flagged by Analyzer 0 % (0-5); Neutrophil # 3.23 X10^3/uL (2.7-7.7); Neutrophil % 59.4 % (47-70); Platelet Count 163 K/mm3 (150-450); RBC Distribution Width CV 13.2 % (11.6-14.6); RBC Distribution Width SD 47.3 fl (35.1-43.9); Red Blood Count 3.66 M/mm3 (4.6-6.2); White Blood Count 5.4 K/mm3 (4.4-11.0)
[2022-11-04 11:47] LABS: AST(SGOT) 24 U/L (15-37); Alanine Aminotransfer ALT/SGPT 35 U/L (16-61); Albumin, Serum 3.7 g/dL (3.2-5.0); Alkaline Phosphatase 76 U/L (45-117); Anion Gap 8 (5-15); BUN 42 mg/dL (7-18); BUN/Creat Ratio 28.6 RATIO (10-20); Calcium,Total 9.2 mg/dL (8.5-10.1); Chloride 111 mmol/L (98-107); Creatinine, Serum 1.47 mg/dL (0.70-1.30); EST Glomerular Filtration Rate 49 mL/min (>60); Est Glom Filt Rate - Afr Amer 59 mL/min (>60); Estimated Creatinine Clearance 41.79 ml/min; Globulin 3.8 g/dL (2.2-4.2); Glucose 181 mg/dL (74-106); Potassium 5.1 mmol/L (3.5-5.1); Protein, Total 7.5 g/dL (6.4-8.2); Sodium Level 139 mmol/L (136-145); Troponin-I HS 17 pg/mL (3.0-78.0)
[2022-11-04 12:01] LABS: Lactic Acid 1.7 mmol/L (0.4-1.9)
--- NOTE | 2022-11-04 12:23 | RAD_ITS ---
STUDY: X-RAY CHEST REASON FOR EXAM: Male, 82 years old. Sob TECHNIQUE: AP and lateral views of the chest. COMPARISON: Comparison is made with prior study dated October 07, 2022. FINDINGS: EKG electrodes are seen. Vascular congestion and a mild degree of CHF. There is no demonstrated pleural abnormality. There is moderate cardiac enlargement. Recording device is seen overlying left heart apex. A left-sided dual-chamber pacemaker is seen. Normal mediastinum and lakhwinder. Normal visualized pulmonary arteries. There is atherosclerotic calcification of the aortic arch with tortuosity. There are diffuse degenerative changes of the visualized thoracic spine. There is degenerative osteoarthritis of the bilateral shoulders. There is no demonstrated abnormality of the visualized soft tissue structures of the upper abdomen. RAD/Chest 1 View (Portable) IMPRESSION: Cardiomegaly. CHF. Electronically Signed: Leo Fay MD at 13:05 EDT ,
[2022-11-04 13:00] LABS: Bacteria 0 SEEN /hpf (None Seen); Mucous, Urine 0 SEEN /hpf (<or=2+); Red Blood Cells-Urine 0 SEEN /hpf (0-5); Squamous Epithelial Cells - UA 0 SEEN /hpf (0-5); White Blood Cells 0 SEEN /hpf (0-5)
[2022-11-04 13:03] LABS: Color, Urine Yellow (Yellow); Glucose, Dipstick Normal (Normal); Ketone-Dipstick Negative (Negative); Leukocyte Esterase-Dipstick Negative /ul (Negative); Nitrite-Dipstick Negative (Negative); Occult Blood-Urine Negative /ul (Negative); Protein-Dipstick 30 mg/dl (Negative); Urine Bilirubin Dipstick Negative (Negative); Urine Clarity Clear (Clear); Urine Urobilinogen Normal (Normal)
--- NOTE | 2022-11-04 13:03 | ED.RN ---
warm blanket given to pt for his twitching. provider aware of twitching.
--- NOTE | 2022-11-04 14:44 | CM.ED ---
Addendum entered by Alla Quinones 11/04/22 16:13: Patient was accepted by [facility], admissions staff requesting PASRR be completed as well as N2N. Admissions staff requesting the patient arrive after 6:30pm so their facility can prepare for aptient's arrival and to bring clothes and a walker or wheelchair if he has them. SW met with patient and patient's and informed them patient was accepted to [facility]. Patient inquired about insurance coverage and transportation. SW explained his insurance would cover days 1-20 at 100% and days 21-100 would be covered at 80%, however, patient's secondary insurance would likely cover the difference. SW encouraged patient and patient's to contact insurance to further discuss coverage. SW then explained transportation could be arranged but there would be a fee associated with that. Patient and patient's report patient's is able to transport, patient just needs assistance to and from wheelchair. Patient's also explained she would need a wheelchair as she can not walk far distances. Patient also inquired about food. SW to follow up. SW informed patient's RN of food request and acceptance to [facility] and provided RN with nurse to nurse contact. RN to follow up with patient. SW [facility] to review patient's needs. Admissions staff report they can assist patient and his once they arrive and reminded this SW they need to arrive after 6:30pm. SW updated MD Trevino as he is now caring for patient of acceptance to [facility] and plan for to transport. SW met with patient and patient's and explained [facility] aware of the wheelchair need and able to assist. SW reminded patient and patient's to arrive after 6:30pm. Patient reports understanding and no other needs. Plan: discharge home, patient's to transport the patient to [facility] after 6:30pm Alla Quinones NUT SHELLER,SPICE GRINDER Original Note: Social Work Note Referral Source: MD Salazar Referral Reason: SNF placement MD Salazar met with SW and reviewed patient's symptoms and concerns regarding returning home. Patient interested in SNF, SW explained based on patient's insurance, placement from ED is possible. SW to follow up. SW met with patient and patient's and introduced herself and role as [facility] Catalyst Supervisor. Patient was sitting at the edge of the hospital bed and agreeable to speak to SW with present. SW inquired about recent events as well as patient's interest in SNF. Patient reported he wanted to go home but when he stood up he quickly sat down. Patient reports going to the [facility] previously and is interested in temporary SNF placement. SW provided patient with a list of SNF in [facility] in network with patient's insurance. Patient reports he would be interested in referrals to [facility] and [facility]. SW sent referrals to [facility] and [facility] via [facility]. SW met with patient to report [facility] was able to accept patient. Patient reports being interested in a referral to [facility]. SW contacted [facility] to inquire about bed availability; male beds available. SW sent referral via [employer]. Plan: SNF placement pending acceptance. Alla Quinones MSW, KARTHIK
== END 2022-11-04 16:16 | disposition skilled nursing facility (03) ==
PROVIDERS: Emergency Provider Emergency Medicine; PCP Internal Medicine; Visit Provider Emergency Medicine
DX: R53.1 Weakness (principal); Z99.2 Dependence on renal dialysis; I50.9 Heart failure, unspecified; N18.30 Chronic kidney disease, stage 3 unspecified; R19.7 Diarrhea, unspecified; I25.10 Atherosclerotic heart disease of native coronary artery without angina pectoris; D63.8 Anemia in other chronic diseases classified elsewhere; G47.33 Obstructive sleep apnea (adult) (pediatric); Z86.718 Personal history of other venous thrombosis and embolism; Z95.0 Presence of cardiac pacemaker; Z86.73 Personal history of transient ischemic attack (TIA), and cerebral infarction without residual deficits
CPT/HCPCS: 71045; 80053; 81001; 83605; 83880; 84484; 85025; 87428; 93005; 99285; A4216

== ENCOUNTER 2022-11-10 09:47 | Inpatient (IN) | payer MEDICARE, BC, SELFPAY ==
[2022-11-10] VITALS (7 sets, daily range): BP systolic 125–151; BP diastolic 43–62; PULSE 60–71; RESP 16–20; TEMP 36.5–36.6; O2SAT 95–97; BMI 38.5; BMI 36.6
--- NOTE | 2022-11-10 10:26 | EKG12_ITS ---
Test Reason : CHEST PAIN Blood Pressure : / mmHG Vent. Rate : 068 BPM Atrial Rate : 068 BPM P-R Int : 232 ms QRS Dur : 184 ms QT Int : 510 ms P-R-T Axes : 088 -60 081 degrees QTc Int : 542 ms Atrial-sensed ventricular-paced rhythm with prolonged AV conduction Abnormal ECG Confirmed by JORDIN DUNCAN, SYBIL ([id number]), map editor NITZA ROJAS ([id number]) on 11/12/2022 8:34:26 AM Referred By: JAX Confirmed By:SYBIL BRENNER MD
--- NOTE | 2022-11-10 10:26 | RAD_ITS ---
INDICATION: chest pain EXAMINATION/TECHNIQUE: X-RAY - XR Chest 1 View COMPARISON: 11/04/2022. FINDINGS: LINES/DEVICES: Sequential pacemaker with leads projecting over right atrium and right ventricle. LUNGS: No consolidation, edema or effusion. No pneumothorax. CHF resolved. MEDIASTINUM AND CARDIOVASCULAR STRUCTURES: Mild cardiomegaly stable. BONES AND SOFT TISSUES: Unremarkable. RAD/Chest 1 View (Portable) IMPRESSION: Interval resolution of mild CHF. Pacemaker. Cardiomegaly. Electronically Signed: Caden Levy MD, PRIYA at 10:55 EDT ,
--- NOTE | 2022-11-10 10:28 | EX.ED.DYSGE1 ---
HPI History of Present Illness Chief Complaint: Chest Pain Narrative Narrative: 82-year-old male presenting from his longterm facility for some chest discomfort this morning which radiated up into his neck. He had a little bit of lightheadedness. Patient recently placed in longterm facility for debility. He has a history of pacemaker placement secondary to bradycardia. History of sick sinus syndrome. He had a pacemaker placed about a month ago. This was by Dr. Rogers. He had multiple episodes of diarrhea before he was admitted to the longterm facility. Patient states today he is having more diarrhea. He describes generalized weakness. [facility] Medical History (HFpEF) heart failure with preserved ejection fraction (12/12/20) Acute respiratory failure with hypoxia Anemia Anemia of chronic renal failure, stage 3 (moderate) Anxiety and depression Atherosclerotic heart disease of rincon coronary artery without angina pectoris Atrial flutter Atypical chest pain Back pain BMI 34.0-34.9,adult BPH (benign prostatic hyperplasia) BPPV (benign paroxysmal positional vertigo) Bradycardia Cardiac dysrhythmia Cardiology follow-up encounter CHF (congestive heart failure) CHF (congestive heart failure) De Quervain's tenosynovitis Debility Depression Dermatitis Diabetes mellitus Diabetic kidney disease Dizziness DM type 2 with diabetic peripheral neuropathy DVT (deep venous thrombosis) Dyslipidemia Dysphagia Essential (primary) hypertension Fall Flu vaccine need Fracture of great toe Gastric reflux Gout Gout flare Health care maintenance History of echocardiogram History of edema History of GI bleed History of peptic ulcer History of renal calculi History of ulceration HLD (hyperlipidemia) Injury of head and neck Iron deficiency anemia Iron deficiency anemia due to chronic blood loss Kidney hematoma (12/08/20) Left knee pain Left leg DVT Loss of equilibrium Low iron Malaise Near syncope Orthostatic hypotension MACHELLE (obstructive sleep apnea) Pain of left lower extremity Paroxysmal atrial fibrillation Paroxysmal atrial flutter Pneumonia Polypharmacy 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 Presence of cardiac pacemaker Prostate disease Psoriasis Recurrent syncope (06/19/22) Renal calculi RLS (restless legs syndrome) Sex disorder Sick sinus syndrome Suicidal ideation SVT (supraventricular tachycardia) TIA (transient ischemic attack) Type 2 diabetes mellitus with diabetic polyneuropathy Urolithiasis Venous insufficiency of both lower extremities Vertigo Walker as ambulation aid Wears glasses Home Medications finasteride 5 mg tablet 5 mg PO DAILY PROSTATE #90 tabs 11/03/18 [Rx Last Taken 10/05/22] pramipexole 1 mg tablet (Mirapex) 2 mg PO QHS RLS #180 tabs 12/10/21 [Rx Last Taken 10/05/22] flecainide 100 mg tablet 100 mg PO Q12H HEART RATE #180 tabs 04/01/22 [Rx Last Taken 10/05/22] sertraline 25 mg tablet 37.5 mg PO DAILY DEPRESSION 04/05/22 [History Last Taken 10/05/22] metoprolol succinate 25 mg tablet,extended release 24 hr 12.5 mg PO DAILY BP 07/16/22 [History Last Taken 10/05/22] ferrous sulfate 325 mg (65 mg iron) tablet 325 mg PO TH supplement 07/31/22 [History Last Taken 10/03/22] furosemide 40 mg tablet 40 mg PO DAILY FLUID 07/31/22 [History Last Taken 10/05/22] acetaminophen 500 mg tablet 1,000 mg PO Q6H PRN Pain 10/06/22 [History Last Taken 10/06/22 03:00] amlodipine 10 mg tablet 5 mg PO DAILY BP 10/06/22 [History Last Taken 10/05/22] ergocalciferol (vitamin D2) 1,250 mcg (50,000 unit) capsule 50,000 unit PO QMONTH SUPPLEMENT 10/06/22 [History Last Taken 09/18/22] famotidine 40 mg tablet 40 mg PO DAILY GERD 10/06/22 [History Last Taken 10/05/22] hydralazine 50 mg tablet 50 mg PO BID BP 10/06/22 [History Last Taken 10/05/22] insulin glargine 100 unit/mL (3 mL) subcutaneous pen 30 unit subcut QAM DM 10/06/22 [History Last Taken 10/05/22] olmesartan 40 mg tablet 20 mg PO BID HEART 10/06/22 [History Last Taken 10/05/22] progesterone micronized 100 mg capsule 100 mg PO QAM HORMONE 10/06/22 [History Last Taken 10/05/22] simvastatin 20 mg tablet 20 mg PO QHS CHOLESTEROL 10/06/22 [History Last Taken 10/05/22] spironolactone 50 mg tablet 50 mg PO DAILY FLUID 10/06/22 [History Last Taken 10/05/22] prednisone 20 mg tablet 40 mg PO BREAKFAST 2 days #4 tabs 10/15/22 [Rx Last Taken Unknown] dulaglutide 4.5 mg/0.5 mL subcutaneous pen injector 4.5 mg (0.5 mL) subcut .COMPLEX DM #2 mL 10/24/22 [Rx Last Taken Unknown] meclizine 25 mg tablet 25 mg PO TID PRN dizziness #90 tabs 10/24/22 [Rx Last Taken Unknown] Allergy/AdvReac Type Severity Reaction Status Date / Time hydrocodone bitartrate AdvReac Severe Other Verified 10/24/22 12:54 [From Vicodin] hydroxyzine AdvReac Severe Other Verified 10/24/22 12:54 Family History Father Diabetes Hypertension Cancer Lung cancer Mother Hypertension CVA (cerebral vascular accident) Sister Diabetes Son Diabetes Surgical History History of cardioversion (2015) History of cataract surgery History of left heart catheterization (02/16/13) History of lithotripsy (11/2020) History of loop recorder (06/26/22) History of radiofrequency ablation procedure for cardiac arrhythmia (02/05/06) history of right knee cap fracture History of right knee surgery Status post laser lithotripsy of ureteral calculus Status post left foot surgery STENT PLACEMENT FOR KIDNEY STONE Social History household members: spouse housing: house Smoking Status: Never smoker how long ago did patient quit smokin second hand exposure: No alcohol intake: never substance use type: does not use caffeine: No what type of physical activity do you participate in: none seatbelt use: always do you feel safe at home: Yes ROS ROS ED Review of Systems ROS Unobtainable: Denies due to encephalopathy Constitutional Constitutional ED: Denies chills or fever(s) Eyes Eyes: Denies change in vision or diplopia ENT ENT ED: Denies rhinorrhea or sore throat Cardiovascular Cardiovascular: Reports chest pain Respiratory/Chest Respiratory/Chest: Reports dyspnea; Denies cough Gastrointestinal Gastrointestinal: Reports diarrhea; Denies abdominal pain, constipation or vomiting Genitourinary Genitourinary ED: Reports dysuria and hematuria Musculoskeletal Musculoskeletal: Denies arthralgias Integumentary Denies abscess or Abrasions Neurologic Neurologic: Denies headache(s) or paresthesias Psychiatric Psychiatric: Denies anxiety or depression EXAM Physical Exam Const Vital Signs: 11/10/22 09:48 11/10/22 10:34 11/10/22 11:47 Temperature 97.8 F Temperature Source Temporal Pulse Rate 71 64 Respiratory Rate 20 H 16 Blood Pressure 144/51 H 133/60 H Blood Pressure Mean 82 84 Pulse Ox 96 97 Oxygen Delivery Method Room Air Room Air Room Air 11/10/22 15:24 Temperature 98 F Temperature Source Temporal Pulse Rate 64 Respiratory Rate 19 H Blood Pressure 149/51 H Blood Pressure Mean 83 Pulse Ox 95 Oxygen Delivery Method Room Air Positive well nourished General Appearance ED: NAD HEENT Reports moist mucous membranes Eyes PERRL and EOMs intact bilaterally Chest Wall inspection of chest normal Resp normal respiratory effort and clear to auscultation bilaterally Auscultation: Negative for rales, rhonchi or wheezes Cardio regular rate and regular rhythm GI normal to inspection, nondistended, normoactive bowel sounds Neuro oriented x3 and CN's II-XII intact bilaterally Motor Exam: strength 5/5 throughout Psych mental status grossly normal Skin no rashes or lesions noted MDM MDM MDM Narrative Medical decision making narrative: Patient presenting with chest pain. Differential diagnosis pneumonia, ACS, musculoskeletal chest pain, costochondritis. EKG shows a paced rhythm at 68 bpm without sign of ischemic change. Chest x-ray on my interpretation shows cardiomegaly without other acute process. Radiology services agrees. CBC shows normal white blood cell count, hemoglobin stable 11.3, platelets normal. Creatinine is elevated today at 2.34 from 1.47. BUN is also elevated at 70. He was given IV fluids. High-sensitivity troponin was 13 and delta troponin was 16. I did check his liver function and lipase as well and these are both normal. Glucose slightly elevated at 193 without anion gap. Discussed case with Dr. Garcia because the patient recently had a pacemaker placed and is on Lasix and spironolactone. Recommend admission with hydration and cardiology consult. Patient was amenable to this. Patient admitted in stable condition. Impression: 1. chest pain 2. Acute kidney Lab Data Labs: Laboratory Results - last 24 hr 11/10/22 11/10/22 11/10/22 10:45 10:45 13:30 WBC 5.9 RBC 3.64 L Hgb 11.3 L Hct 34.9 L MCV 95.9 H MCH 31.0 MCHC 32.4 RDW Std Deviation 46.9 H RDW Coeff of Flavio 13.2 Plt Count 196 MPV 9.1 Immature Gran % (Auto) 0.500 Neut % (Auto) 64.2 Lymph % (Auto) 21.3 Mitchell % (Auto) 9.9 Eos % (Auto) 3.6 Baso % (Auto) 0.5 Absolute Neuts (auto) 3.8 Absolute Lymphs (auto) 1.25 Nucleated RBC % 0 Sodium 137 Potassium 5.1 Chloride 112 H Carbon Dioxide 18.0 L Anion Gap 7 BUN 70 H Creatinine 2.34 H Estim Creat Clear Calc 26.25 Est GFR (MDRD) Af Amer 34 L Est GFR (MDRD) Non-Af 28 L BUN/Creatinine Ratio 29.9 H Glucose 193 H Calcium 8.7 Total Bilirubin 0.30 Direct Bilirubin 0.16 AST 16 ALT 30 Alkaline Phosphatase 73 Troponin I High Sens 13 16 Total Protein 7.1 Albumin 3.4 Globulin 3.7 Lipase 222 Radiography Diagnostic Testing: Clinical Impression(s) from Imaging Studies Chest X-Ray 11/10/22 10:26 IMPRESSION: Interval resolution of mild CHF. Pacemaker. Cardiomegaly. Electronically Signed: Caden Levy MD, PRIYA at 10:55 EDT Reading Location ID and State: [facility] / [place] Tel , Service support , Discharge Plan Triage Chief Complaint: Chest Pain ED Provider: Nghia Smith Dx/Rx/DC Orders Primary Care Provider: Tosha Shrestha
[2022-11-10 10:58] LABS: Absolute Lymphocyte Count 1.25 X10^3/uL (0.83-4.51); Absolute Neutrophil Count 3.8 X10^3/uL (2.0-7.7); Basophil# 0.03 X10^3/uL; Basophil% 0.5 % (0-1); Eosinophil# 0.21 X10^3/uL; Eosinophils% 3.6 % (0-5); Hematocrit 34.9 % (40-54); Hemoglobin 11.3 g/dL (13.0-16.5); Lymphocyte # 1.25 X10^3/ul (0.83-4.51); Lymphocyte % 21.3 % (19-41); Mean Corp Hgb Conc 32.4 g/dL (32-36); Mean Corpuscular Volume 95.9 fL (80-94); Mean Platelet Vol. 9.1 fl (6.2-12.0); Monocyte# 0.58 X10^3/uL; Monocyte% 9.9 % (0-10); NRBC Flagged by Analyzer 0 % (0-5); Neutrophil # 3.76 X10^3/uL (2.7-7.7); Neutrophil % 64.2 % (47-70); Platelet Count 196 K/mm3 (150-450); RBC Distribution Width CV 13.2 % (11.6-14.6); RBC Distribution Width SD 46.9 fl (35.1-43.9); Red Blood Count 3.64 M/mm3 (4.6-6.2); White Blood Count 5.9 K/mm3 (4.4-11.0)
[2022-11-10 11:20] LABS: AST(SGOT) 16 U/L (15-37); Alanine Aminotransfer ALT/SGPT 30 U/L (16-61); Albumin, Serum 3.4 g/dL (3.2-5.0); Alkaline Phosphatase 73 U/L (45-117); Anion Gap 7 (5-15); BUN 70 mg/dL (7-18); BUN/Creat Ratio 29.9 RATIO (10-20); Bilirubin, Direct 0.16 mg/dL (0.00-0.30); Calcium,Total 8.7 mg/dL (8.5-10.1); Chloride 112 mmol/L (98-107); Creatinine, Serum 2.34 mg/dL (0.70-1.30); EST Glomerular Filtration Rate 28 mL/min (>60); Est Glom Filt Rate - Afr Amer 34 mL/min (>60); Estimated Creatinine Clearance 26.25 ml/min; Globulin 3.7 g/dL (2.2-4.2); Glucose 193 mg/dL (74-106); Lipase 222 U/L (73-393); Potassium 5.1 mmol/L (3.5-5.1); Protein, Total 7.1 g/dL (6.4-8.2); Sodium Level 137 mmol/L (136-145); Troponin-I HS (w/2H Reflex) 13 pg/mL (3.0-78.0)
[2022-11-10] MEDS: 0.9% Normal Saline 1,000 ML 999 ML IV (11:35)
[2022-11-10 12:54] LABS: Reflex Troponin-HS? (from REC) Y
[2022-11-10] MEDS: Morphine 4 MG/ML Syringe IV (12:58)
[2022-11-10 13:56] LABS: Troponin-I HS 16 pg/mL (3.0-78.0)
--- NOTE | 2022-11-10 15:44 | ECHOD_ITS ---
Reason For Study: Abn EKG Procedure This was a 2D Doppler, Color Flow transthoracic echocardiogram. Exam performed portable in patient room. Left Ventricle Normal LV size. Left ventricular systolic function is normal. The estimated ejection fraction is 65 %. No regional wall motion abnormalities noted. Right Ventricle Normal RV size. ICD or pacer leads identified within the right ventricle. Normal systolic function. Atria The left atrium is moderately enlarged. Normal right atrium. Mitral Valve There is mild mitral annular calcification. Tricuspid Valve Normal tricuspid valve. Mild (1+) tricuspid valve insufficiency. Pulmonary artery systolic pressure is 36 mmHg. Aortic Valve Trisinus/trileaflet aortic valve. Mild focal aortic valve calcification. Pulmonic Valve Normal pulmonic valve. Great Vessels Normal aortic root. The pulmonary artery is normal size. Normal inferior vena cava. Pericardium/Pleural No pericardial effusion. MMode/2D Measurements & Calculations LVIDd: 4.8 cm IVSd: 1.3 cm Ao root diam: 3.1 cm LVIDs: 2.2 cm LVPWd: 1.1 cm RVDd: 4.0 cm FS: 53.2 % LAV(MOD-bp): 88.2 ml LVAd ap4: 37.0 cm2 LVAd ap2: 34.9 cm2 LAV(MOD-bp) Indexed: 35.8 ml/m2 LVLd ap4: 9.4 cm LVLd ap2: 9.5 cm LAV(MOD-sp2): 67.4 ml EDV(MOD-sp4): 122.5 ml EDV(MOD-sp2): 109.5 ml LAV(MOD-sp4): 86.5 ml EDV(sp4-el): 123.3 ml EDV(sp2-el): 108.2 ml LVAs ap4: 18.8 cm2 LVAs ap2: 15.5 cm2 LVLs ap4: 8.2 cm LVLs ap2: 8.1 cm ESV(MOD-sp4): 40.8 ml ESV(MOD-sp2): 26.5 ml ESV(sp4-el): 36.7 ml ESV(sp2-el): 25.0 ml EF(MOD-sp4): 66.7 % EF(MOD-sp2): 75.8 % EF(sp4-el): 70.3 % SV(MOD-sp4): 81.7 ml SV(MOD-sp2): 83.1 ml SV(sp4-el): 86.6 ml LA dimension(2D): 3.9 cm LA A4 area: 28.8 cm2 RA A4 area: 17.3 cm2 Time Measurements MV dec time: 0.27 sec Doppler Measurements & Calculations MV E max darrius: 99.2 cm/sec Lat Peak E' Darrius: 7.4 cm/sec Med Peak E' Darrius: 5.4 cm/sec MV A max darrius: 90.5 cm/sec E/E' lat: 13.4 E/E' med: 18.3 MV E/A: 1.1 MV V2 max: 114.8 cm/sec MV dec slope: 387.1 cm/sec2 Ao V2 max: 143.6 cm/sec MV max P.3 mmHg Ao max P.3 mmHg MV V2 mean: 69.6 cm/sec Ao V2 mean: 95.1 cm/sec MV mean P.2 mmHg Ao mean P.3 mmHg MV V2 VTI: 48.0 cm Ao V2 VTI: 33.5 cm AV (velocity ratio): 0.87 LV V1 max: 118.8 cm/sec PA V2 max: 110.2 cm/sec TR max darrius: 285.8 cm/sec LV V1 max P.6 mmHg PA V2 mean: 82.5 cm/sec TR max P.7 mmHg LV V1 mean P.1 mmHg LV V1 mean: 82.9 cm/sec LV V1 VTI: 29.2 cm ECHO/Echo Complete Interpretation Summary Normal LV size. Left ventricular systolic function is normal. The estimated ejection fraction is 65 %. Normal systolic function. Pulmonary artery systolic pressure is 36 mmHg. The left atrium is moderately enlarged. Ordering Physician: Margarita Jackson Referring Physician: Tosha Shrestha Performed By: Albertina Schmitt RCS
--- NOTE | 2022-11-10 15:46 | HP.PCM.HOS_ITS ---
HPI - General General Date of Admission: 11/10/22 Date of Service: 11/10/22 Chief Complaint: Generalized weakness HPI Narrative Jr Ji is an 82-year-old male with a history of bradycardia status post permanent pacemaker in September, CKD stage IIIb, type 2 diabetes mellitus, gout, MACHELLE who presented to [facility] 11/10/2022 from [facility] where he has been for rehab after a previous hospitalization. Per report he had chest pain and was brought here. Troponin within normal limits and EKG unrevealing. He was found to have a creatinine of 2.34 with a BUN of 70 and a bicarb of 18. Cardiology contacted and felt admission was reasonable primarily for his HORACE. Hospitalist consulted for admission. Patient evaluated at bedside with his . He is presently at [facility] for rehab prior to going home after recent hospitalization. He endorses being in his usual health and got up at 6 AM and went to go get food. He had been doing well but while he was eating he found he had a hard time finding his eating utensil on the left side and then slumped over to the left and felt very weak and somewhat confused. He reports they came over and checked his sugar which was slightly elevated but did not comment on his other vitals. He then slumped somewhat to the other side. They helped him back and he reports he felt like his legs were going to give way. Both his legs and arms were weak symmetrically. Underhill he had difficulty getting his words out but did not know if he had any slurred speech, said his vision was slightly blurry at the very beginning of the episode but no unilateral deficits and nothing persistent. Has some chronic shortness of breath waxes and wanes. When asked about chest pain he reports after he was taken back to his room during this episode he had some left-sided shoulder pain but denies other pain at this time or that time. Said he felt somewhat out of it like that until 2 PM in the ED and now feels back to baseline. Additionally noted that he ate on Friday and immediately had diarrhea and woke up several times overnight with more diarrhea. He was noted to have diarrhea in the ED as well. Denies anyone around him being sick, denies any productive cough. No nausea. Denies other complaints at this time. [facility] Medical History (HFpEF) heart failure with preserved ejection fraction (12/12/20) Acute respiratory failure with hypoxia Anemia Anemia of chronic renal failure, stage 3 (moderate) Anxiety and depression Atherosclerotic heart disease of [place] coronary artery without angina pectoris Atrial flutter Atypical chest pain Back pain BMI 34.0-34.9,adult BPH (benign prostatic hyperplasia) BPPV (benign paroxysmal positional vertigo) Bradycardia Cardiac dysrhythmia Cardiology follow-up encounter CHF (congestive heart failure) CHF (congestive heart failure) De Quervain's tenosynovitis Debility Depression Dermatitis Diabetes mellitus Diabetic kidney disease Dizziness DM type 2 with diabetic peripheral neuropathy DVT (deep venous thrombosis) Dyslipidemia Dysphagia Essential (primary) hypertension Fall Flu vaccine need Fracture of great toe Gastric reflux Gout Gout flare Health care maintenance History of echocardiogram History of edema History of GI bleed History of peptic ulcer History of renal calculi History of ulceration HLD (hyperlipidemia) Injury of head and neck Iron deficiency anemia Iron deficiency anemia due to chronic blood loss Kidney hematoma (12/08/20) Left knee pain Left leg DVT Loss of equilibrium Low iron Malaise Near syncope Orthostatic hypotension MACHELLE (obstructive sleep apnea) Pain of left lower extremity Paroxysmal atrial fibrillation Paroxysmal atrial flutter Pneumonia Polypharmacy 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 Presence of cardiac pacemaker Prostate disease Psoriasis Recurrent syncope (06/19/22) Renal calculi RLS (restless legs syndrome) Sex disorder Sick sinus syndrome Suicidal ideation SVT (supraventricular tachycardia) TIA (transient ischemic attack) Type 2 diabetes mellitus with diabetic polyneuropathy Urolithiasis Venous insufficiency of both lower extremities Vertigo Walker as ambulation aid Wears glasses Home Medications finasteride 5 mg tablet 5 mg PO DAILY PROSTATE #90 tabs 11/03/18 [Rx Last Taken 10/05/22] pramipexole 1 mg tablet (Mirapex) 2 mg PO QHS RLS #180 tabs 12/10/21 [Rx Last Taken 10/05/22] flecainide 100 mg tablet 100 mg PO Q12H HEART RATE #180 tabs 04/01/22 [Rx Last Taken 10/05/22] sertraline 25 mg tablet 37.5 mg PO DAILY DEPRESSION 04/05/22 [History Last Taken 10/05/22] metoprolol succinate 25 mg tablet,extended release 24 hr 12.5 mg PO DAILY BP 07/16/22 [History Last Taken 10/05/22] ferrous sulfate 325 mg (65 mg iron) tablet 325 mg PO TH supplement 07/31/22 [History Last Taken 10/03/22] furosemide 40 mg tablet 40 mg PO DAILY FLUID 07/31/22 [History Last Taken 10/05/22] acetaminophen 500 mg tablet 1,000 mg PO Q6H PRN Pain 10/06/22 [History Last Taken 10/06/22 03:00] amlodipine 10 mg tablet 5 mg PO DAILY BP 10/06/22 [History Last Taken 10/05/22] ergocalciferol (vitamin D2) 1,250 mcg (50,000 unit) capsule 50,000 unit PO QMONTH SUPPLEMENT 10/06/22 [History Last Taken 09/18/22] famotidine 40 mg tablet 40 mg PO DAILY GERD 10/06/22 [History Last Taken 10/05/22] hydralazine 50 mg tablet 50 mg PO BID BP 10/06/22 [History Last Taken 10/05/22] insulin glargine 100 unit/mL (3 mL) subcutaneous pen 30 unit subcut QAM DM 10/06/22 [History Last Taken 10/05/22] olmesartan 40 mg tablet 20 mg PO BID HEART 10/06/22 [History Last Taken 10/05/22] progesterone micronized 100 mg capsule 100 mg PO QAM HORMONE 10/06/22 [History Last Taken 10/05/22] simvastatin 20 mg tablet 20 mg PO QHS CHOLESTEROL 10/06/22 [History Last Taken 10/05/22] spironolactone 50 mg tablet 50 mg PO DAILY FLUID 10/06/22 [History Last Taken 10/05/22] prednisone 20 mg tablet 40 mg PO BREAKFAST 2 days #4 tabs 10/15/22 [Rx Last Taken Unknown] dulaglutide 4.5 mg/0.5 mL subcutaneous pen injector 4.5 mg (0.5 mL) subcut . COMPLEX DM #2 mL 10/24/22 [Rx Last Taken Unknown] meclizine 25 mg tablet 25 mg PO TID PRN dizziness #90 tabs 10/24/22 [Rx Last Taken Unknown] Allergy/AdvReac Type Severity Reaction Status Date / Time hydrocodone bitartrate AdvReac Severe Other Verified 10/24/22 12:54 [From Vicodin] hydroxyzine AdvReac Severe Other Verified 10/24/22 12:54 Family History Father Diabetes Hypertension Cancer Lung cancer Mother Hypertension CVA (cerebral vascular accident) Sister Diabetes Son Diabetes Surgical History History of cardioversion (2015) History of cataract surgery History of left heart catheterization (02/16/13) History of lithotripsy (11/2020) History of loop recorder (06/26/22) History of radiofrequency ablation procedure for cardiac arrhythmia (02/05/06) history of right knee cap fracture History of right knee surgery Status post laser lithotripsy of ureteral calculus Status post left foot surgery STENT PLACEMENT FOR KIDNEY STONE Social History household members: spouse housing: house Smoking Status: Never smoker how long ago did patient quit smokin second hand exposure: No alcohol intake: never substance use type: does not use caffeine: No what type of physical activity do you participate in: none seatbelt use: always do you feel safe at home: Yes ROS ROS Narrative General: Denies fever/chills HENT: Denies headache, denies stuffy nose, denies sore throat EYES: Denies changes in vision Resp: Some chronic waxing and waning shortness of breath, slight chronic cough Cardiac: Denies chest pain GI: Denies abdominal pain, has had diarrhea for the past day, denies nausea/vomiting : Denies changes in urination Extremity: Denies swelling MSK: Generalized weakness Neuro: Denies any numbness/tingling Heme: Denies any bleeding or bruising Skin: Denies rashes Psychiatric: No complaints voiced Vital Signs Vital Signs Vital Signs: 11/10/22 09:48 11/10/22 10:34 11/10/22 11:47 Temperature 97.8 F Temperature Source Temporal Pulse Rate 71 64 Respiratory Rate 20 H 16 Blood Pressure 144/51 H 133/60 H Blood Pressure Mean 82 84 Pulse Ox 96 97 Oxygen Delivery Method Room Air Room Air Room Air 11/10/22 15:24 Temperature 98 F Temperature Source Temporal Pulse Rate 64 Respiratory Rate 19 H Blood Pressure 149/51 H Blood Pressure Mean 83 Pulse Ox 95 Oxygen Delivery Method Room Air Weight Weight: 128.8 kg Body Mass Index (BMI) 38.5 Physical Exam Narrative General: Alert, oriented, no apparent distress HEENT: Atraumatic, normocephalic Eyes: Anicteric, normal conjunctiva, extraocular movements grossly intact Neck: Supple Respiratory: Clear to auscultation bilaterally, normal respiratory effort Cardiovascular: Regular rate and rhythm GI: Soft, nontender, nondistended Extremities: Trace bilateral lower extremity edema Musculoskeletal: Moving all extremities Neuro: No overt focal neurological deficits Skin: No rashes appreciated Psych: Cooperative Results Lab / Micro Data Result Diagrams: 11/10/22 10:45 11/10/22 10:45 Labs: Laboratory Results - last 24 hr 11/10/22 10:45: WBC 5.9, RBC 3.64 L, Hgb 11.3 L, Hct 34.9 L, MCV 95.9 H, MCH 31.0, MCHC 32.4, RDW Std Deviation 46.9 H, RDW Coeff of Flavio 13.2, Plt Count 196, MPV 9.1, Immature Gran % (Auto) 0.500, Neut % (Auto) 64.2, Lymph % (Auto) 21.3, [place] % (Auto) 9.9, Eos % (Auto) 3.6, Baso % (Auto) 0.5, Absolute Neuts (auto) 3.8, Absolute Lymphs (auto) 1.25, Nucleated RBC % 0 11/10/22 10:45: Sodium 137, Potassium 5.1, Chloride 112 H, Carbon Dioxide 18.0 L , Anion Gap 7, BUN 70 H, Creatinine 2.34 H, Estim Creat Clear Calc 26.25, Est GFR (MDRD) Af Amer 34 L, Est GFR (MDRD) Non-Af 28 L, BUN/Creatinine Ratio 29.9 H , Glucose 193 H, Calcium 8.7, Total Bilirubin 0.30, Direct Bilirubin 0.16, AST 16, ALT 30, Alkaline Phosphatase 73, Troponin I High Sens 13, Total Protein 7.1, Albumin 3.4, Globulin 3.7, Lipase 222 11/10/22 13:30: Troponin I High Sens 16 Radiology Impression Chest X-Ray 11/10/22 10:26 IMPRESSION: Interval resolution of mild CHF. Pacemaker. Cardiomegaly. Electronically Signed: Caden Levy MD, PRIYA at 10:55 EDT , Assessment & Plan Assessment/Plan (1) Episode of generalized weakness: (2) Diarrhea: (3) HORACE (acute kidney injury): PLAN: Plan #Generalized weakness and altered level of consciousness -Unclear etiology, reported suddenly slumping over and denied loss of consciousness but felt generally weak and out of it for several hours. Dehydration versus cardiac versus psychosomatic. No focal deficit or loss of consciousness -Was not hypoglycemic at the time -EKG demonstrates atrial sensed ventricularly paced at 68 bpm -We will admit to telemetry and interrogate pacemaker -Obtain orthostatic vital signs -We will obtain echo -Troponin negative and not having chest pain -Vitally stable -We will hold diuretics and gently hydrate, low threshold for nephrology involvement #A flutter and bradycardia status post permanent pacemaker/HTN -Placed in September, will have this interrogated -Patient on flecainide, this has been continued -Continue metoprolol -We will also continue amlodipine and hydralazine -Hold on losartan given kidney function #Diarrhea -We will check stool studies -Check COVID -Gently hydrate #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 -Suspect prerenal due to diarrhea and diuretics -We will hold diuretics and gently hydrate -Holding losartan #Type 2 diabetes mellitus -Glucose checks and sliding scale insulin -Continue insulin glargine 30 units #MACHELLE -BiPAP nightly #DVT ppx: Heparin subcu Margarita Jackson MD Time spent in the patient's overall evaluation,decision-making process, review of diagnostic data, adjustment of management, discussion with other providers, nursing nursing and ancillary staff involved in patient's care documentation, 60 minutes Charges/Coding Visit Charges Inpatient E&M: 38932 Init Hosp L2
[2022-11-10] MEDS: 0.9% Normal Saline 1,000 ML 100 ML IV (18:27)
[2022-11-10] MEDS: Heparin Injection (Vial) 5,000 UNIT/ML VIAL 5000 UNIT SC (21:31)
[2022-11-10] MEDS: Flecainide 100 MG Tablet PO (21:32)
[2022-11-10] MEDS: Pramipexole Di-HCl 1 MG Tablet 2 MG PO (21:32)
[2022-11-10] MEDS: Atorvastatin Calcium 10 MG Tablet PO (21:32)
[2022-11-10] MEDS: hydrALAZINE 50 MG Tablet PO (21:33)
[2022-11-10] MEDS: Acetaminophen 325 MG Tablet 650 MG PO (21:33)
[2022-11-11] VITALS (9 sets, daily range): BP systolic 129–156; BP diastolic 43–52; PULSE 61–68; RESP 16–20; TEMP 36.1–36.5; O2SAT 94–99; BMI 36.6
[2022-11-11 00:51] LABS: Bedside Glucose 149 mg/dL (74-106)
[2022-11-11 00:51] LABS: Bedside Glucose 152 mg/dL (74-106)
[2022-11-11 05:13] LABS: Absolute Lymphocyte Count 1.26 X10^3/uL (0.83-4.51); Absolute Neutrophil Count 3.1 X10^3/uL (2.0-7.7); Basophil# 0.03 X10^3/uL; Basophil% 0.6 % (0-1); Eosinophil# 0.17 X10^3/uL; Eosinophils% 3.3 % (0-5); Hematocrit 31.7 % (40-54); Hemoglobin 10.3 g/dL (13.0-16.5); Lymphocyte # 1.26 X10^3/ul (0.83-4.51); Lymphocyte % 24.5 % (19-41); Mean Corp Hgb Conc 32.5 g/dL (32-36); Mean Corpuscular Hgb 31.5 pg (27.0-32.0); Mean Corpuscular Volume 96.9 fL (80-94); Mean Platelet Vol. 9.6 fl (6.2-12.0); Monocyte# 0.56 X10^3/uL; Monocyte% 10.9 % (0-10); NRBC Flagged by Analyzer 0 % (0-5); Neutrophil % 60.3 % (47-70); Platelet Count 166 K/mm3 (150-450); RBC Distribution Width CV 13.1 % (11.6-14.6); RBC Distribution Width SD 46.5 fl (35.1-43.9); Red Blood Count 3.27 M/mm3 (4.6-6.2); White Blood Count 5.1 K/mm3 (4.4-11.0)
[2022-11-11 05:49] LABS: AST(SGOT) 16 U/L (15-37); Alanine Aminotransfer ALT/SGPT 26 U/L (16-61); Albumin, Serum 3.1 g/dL (3.2-5.0); Alkaline Phosphatase 68 U/L (45-117); Anion Gap 4 (5-15); BUN 61 mg/dL (7-18); BUN/Creat Ratio 32.3 RATIO (10-20); Calcium,Total 8.6 mg/dL (8.5-10.1); Chloride 116 mmol/L (98-107); Creatinine, Serum 1.89 mg/dL (0.70-1.30); EST Glomerular Filtration Rate 36 mL/min (>60); Est Glom Filt Rate - Afr Amer 44 mL/min (>60); Globulin 3.1 g/dL (2.2-4.2); Glucose 122 mg/dL (74-106); Potassium 5.8 mmol/L (3.5-5.1); Protein, Total 6.2 g/dL (6.4-8.2); Sodium Level 139 mmol/L (136-145); Thyroid Stim Hormone (TSH) 0.52 uIU/mL (0.358-3.74)
[2022-11-11] MEDS: Heparin Injection (Vial) 5,000 UNIT/ML VIAL 5000 UNIT SC ×3 (06:09→20:30)
[2022-11-11 06:31] LABS: Bedside Glucose 125 mg/dL (74-106)
--- NOTE | 2022-11-11 08:44 | NURSING ---
Pacer check completed at this time.
[2022-11-11] MEDS: 0.9% Normal Saline 1,000 ML 250 ML IV ×3 (10:05→17:49)
--- NOTE | 2022-11-11 10:32 | CASEMGMT ---
Updates sent to [facility] via [facility]. SW also inquired if patient is from [facility]F vs [place]. Naz Phipps SECURITY MESSENGER KARTHIK
[2022-11-11] MEDS: Sodium Polystyrene Sulfonate 15 GM/60 ML UDC 30 GM PO (10:35)
[2022-11-11] MEDS: Insulin Glargine-YFGN 100 UNIT/ML Pen 30 UNIT SC (10:38)
--- NOTE | 2022-11-11 10:41 | PN.HOSP_ITS ---
Reason for Visit Reason for Visit: Diagnoses Acute kidney failure, unspecified (11/10/22) Diarrhea, unspecified (11/10/22) Weakness (11/10/22) Subjective Subjective Overall is beginning to feel better today, diarrhea improving. Generalized weakness somewhat better. Not having any chest pain or shortness of breath at this time. Objective Data Objective Data Vital Signs: Vital Signs Temp Pulse Resp BP Pulse Ox O2 Del Method 97 F L 63 17 141/47 H 99 Room Air 11/11/22 09:22 11/11/22 09:22 11/11/22 09:22 11/11/22 09:22 11/11/22 09:22 11/11/22 09:36 Oxygen Delivery Method Room Air Weight: 122.6 kg Body Mass Index (BMI) 36.6 Intake & Output: Intake and Output for Last 24 Hours 11/09/22 11/10/22 11/11/22 23:59 23:59 23:59 Intake Total 1360 / 1480 1270 / 1270 Balance 1360 / 1480 1270 / 1270 Lab / Micro Data Result Diagrams: 11/11/22 04:40 11/11/22 04:40 Labs: Laboratory Results - last 24 hr 11/10/22 10:45: WBC 5.9, RBC 3.64 L, Hgb 11.3 L, Hct 34.9 L, MCV 95.9 H, MCH 31.0, MCHC 32.4, RDW Std Deviation 46.9 H, RDW Coeff of Flavio 13.2, Plt Count 196, MPV 9.1, Immature Gran % (Auto) 0.500, Neut % (Auto) 64.2, Lymph % (Auto) 21.3, [place] % (Auto) 9.9, Eos % (Auto) 3.6, Baso % (Auto) 0.5, Absolute Neuts (auto) 3.8, Absolute Lymphs (auto) 1.25, Nucleated RBC % 0 11/10/22 10:45: Sodium 137, Potassium 5.1, Chloride 112 H, Carbon Dioxide 18.0 L , Anion Gap 7, BUN 70 H, Creatinine 2.34 H, Estim Creat Clear Calc 26.25, Est GFR (MDRD) Af Amer 34 L, Est GFR (MDRD) Non-Af 28 L, BUN/Creatinine Ratio 29.9 H , Glucose 193 H, Calcium 8.7, Total Bilirubin 0.30, Direct Bilirubin 0.16, AST 16, ALT 30, Alkaline Phosphatase 73, Troponin I High Sens 13, Total Protein 7.1, Albumin 3.4, Globulin 3.7, Lipase 222 11/10/22 13:30: Troponin I High Sens 16 11/10/22 18:26: POC Glucose 149 H 11/10/22 21:30: POC Glucose 152 H 11/11/22 04:40: WBC 5.1, RBC 3.27 L, Hgb 10.3 L, Hct 31.7 L, MCV 96.9 H, MCH 31.5, MCHC 32.5, RDW Std Deviation 46.5 H, RDW Coeff of Flavio 13.1, Plt Count 166, MPV 9.6, Immature Gran % (Auto) 0.400, Neut % (Auto) 60.3, Lymph % (Auto) 24.5, [place] % (Auto) 10.9 H, Eos % (Auto) 3.3, Baso % (Auto) 0.6, Absolute Neuts (auto) 3.1, Absolute Lymphs (auto) 1.26, Nucleated RBC % 0 11/11/22 04:40: Sodium 139, Potassium 5.8 H, Chloride 116 H, Carbon Dioxide 19.0 L, Anion Gap 4 L, BUN 61 H, Creatinine 1.89 H, Estim Creat Clear Calc 32.50, Est GFR (MDRD) Af Amer 44 L, Est GFR (MDRD) Non-Af 36 L, BUN/Creatinine Ratio 32.3 H , Glucose 122 H, Calcium 8.6, Total Bilirubin 0.40, AST 16, ALT 26, Alkaline Phosphatase 68, Total Protein 6.2 L, Albumin 3.1 L, Globulin 3.1, Albumin/Globulin Ratio 1.0, TSH 0.52 11/11/22 06:08: POC Glucose 125 H Micro: Microbiology 11/10/22 17:30 Nasal Secretion SARS-CoV-2 & FLU Antigen (Rapid) - Final Radiography Diagnostic Testing: Radiology Impression Chest X-Ray 11/10/22 10:26 IMPRESSION: Interval resolution of mild CHF. Pacemaker. Cardiomegaly. Electronically Signed: Caden Levy MD, PRIYA at 10:55 EDT , Physical Exam Narrative General: Alert, oriented, no apparent distress HEENT: Atraumatic, normocephalic Eyes: Anicteric, normal conjunctiva, extraocular movements grossly intact Neck: Supple Respiratory: Clear to auscultation bilaterally, normal respiratory effort Cardiovascular: Regular rate and rhythm GI: Soft, nontender, nondistended Extremities: Trace bilateral lower extremity edema Musculoskeletal: Moving all extremities Neuro: No overt focal neurological deficits Skin: No rashes appreciated Psych: Cooperative Assessment & Plan Assessment/Plan (1) Episode of generalized weakness: (2) Diarrhea: (3) HORACE (acute kidney injury): PLAN: Plan #Generalized weakness and altered level of consciousness -Unclear etiology, reported suddenly slumping over and denied loss of consciousness but felt generally weak and out of it for several hours. Dehydration versus cardiac versus psychosomatic. No focal deficit or loss of consciousness -Was not hypoglycemic at the time -EKG demonstrates atrial sensed ventricularly paced at 68 bpm -We will admit to telemetry and interrogate pacemaker -Obtain orthostatic vital signs -We will obtain echo -Troponin negative and not having chest pain -Vitally stable -We will hold diuretics and gently hydrate, low threshold for nephrology involvement -11/11: Pacer interrogated without any acute events noted, has been vitally stable without repeated symptoms. Orthostats lying 137/48 with heart rate 60, sitting 145 over 54 heart rate 64, standing 143/62 with a heart rate of 66. #Hyperkalemia -Still has slight HORACE that this is improving, given Kayexalate, fluids, calcium gluconate. Will repeat BMP. #A flutter and bradycardia status post permanent pacemaker/HTN -Placed in September, will have this interrogated -Patient on flecainide, this has been continued -Continue metoprolol -We will also continue amlodipine and hydralazine -Hold on losartan given kidney function #Diarrhea -We will check stool studies -Check COVID -Gently hydrate -11/11: C. difficile pending, enteric pathogen stool negative, COVID-negative #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 -Suspect prerenal due to diarrhea and diuretics -We will hold diuretics and gently hydrate -Holding losartan #Type 2 diabetes mellitus -Glucose checks and sliding scale insulin -Continue insulin glargine 30 units #MACHELLE -BiPAP nightly #DVT ppx: Heparin subcu Margarita Jackson MD Time spent in the patient's overall evaluation,decision-making process, review of diagnostic data, adjustment of management, discussion with other providers, nursing nursing and ancillary staff involved in patient's care documentation, 30 minutes Charges/Coding Visit Charges Inpatient E&M: 58205 Subs Hosp L2
--- NOTE | 2022-11-11 11:28 | CASEMGMT ---
[facility] informed that patient was SNF status prior to hospital admission. Jennifer Irby COMMERCIAL TRAILER TRUCK DRIVER, MANAGER OF RECRUITING
[2022-11-11 12:05] LABS: Bedside Glucose 118 mg/dL (74-106)
[2022-11-11] MEDS: hydrALAZINE 50 MG Tablet PO ×2 (13:31→20:30)
[2022-11-11] MEDS: amLODIPine 5 MG Tablet PO (13:32)
[2022-11-11] MEDS: Finasteride 5 MG Tablet PO (13:32)
[2022-11-11] MEDS: Metoprolol(XL)Succ 25 MG Tablet 12.5 MG PO (13:33)
[2022-11-11] MEDS: Flecainide 100 MG Tablet PO ×2 (13:33→20:30)
[2022-11-11] MEDS: Famotidine 20 MG Tablet PO (13:34)
[2022-11-11] MEDS: Sertraline 50 MG Tablet PO (13:35)
--- NOTE | 2022-11-11 14:16 | CASEMGMT ---
Pt resided at [facility] prior to admission. Pt confirmed with SW that he plans to return to [facility] upon discharge. Jennifer Irby SALES RECRUITMENT SPECIALIST, QUALITY SYSTEMS MANAGER
--- NOTE | 2022-11-11 15:26 | CHAPLAIN ---
Type of Pastoral Visit _x__ Initial Visit ___ Follow-up Visit ___ On-call Visit ___ General Patient Visit ___ Spiritual Assessment ___ Family Conference ___ Bereavement ___ Rapid Response ___ Code Blue ___ Other (describe below) Pastoral Care Referral From _x__ Patient ___ Family ___ Nurse ___ Physician ___ Lace Weaver ___ Pediatric Allergist ___ Other (describe below) Sacrament/Intervention _x__ Active listening ___ Anointing ___ Protestant _x__ Bereavement ___ Communion ___ Ariadna exploration ___ ___ Life review _x__ Prayer ___ Reconciliation ___ Sacrament of Sick _x__ Supportive presence ___ Wedding ___ Other (describe below) Pastoral Comments patient updates this printing roller polisher on his status since his last admission; pt just lost his sister a couple of days ago and her is at end of this week; pt is concerned about his health because he wants to attend ; explored feelings about this loss; pt is expressive of appreciation for support each time I come to hospital; presence and prayer given
[2022-11-11 17:06] LABS: Bedside Glucose 145 mg/dL (74-106)
[2022-11-11 19:31] LABS: Anion Gap 3 (5-15); BUN 50 mg/dL (7-18); BUN/Creat Ratio 30.5 RATIO (10-20); Calcium,Total 8.3 mg/dL (8.5-10.1); Chloride 116 mmol/L (98-107); Creatinine, Serum 1.64 mg/dL (0.70-1.30); EST Glomerular Filtration Rate 43 mL/min (>60); Est Glom Filt Rate - Afr Amer 52 mL/min (>60); Estimated Creatinine Clearance 37.46 ml/min; Glucose 168 mg/dL (74-106); Potassium 5.1 mmol/L (3.5-5.1); Sodium Level 140 mmol/L (136-145)
[2022-11-11] MEDS: Atorvastatin Calcium 10 MG Tablet PO (20:30)
[2022-11-11] MEDS: Pramipexole Di-HCl 1 MG Tablet 2 MG PO (20:30)
[2022-11-11] MEDS: Acetaminophen 325 MG Tablet 650 MG PO (20:30)
[2022-11-12 00:31] VITALS: BP 131/56; PULSE 60; RESP 20; TEMP 36.5; O2SAT 96
[2022-11-12 01:10] LABS: Bedside Glucose 141 mg/dL (74-106)
[2022-11-12 05:13] VITALS: BP 140/53; PULSE 56; RESP 18; TEMP 37; O2SAT 96
[2022-11-12] MEDS: Heparin Injection (Vial) 5,000 UNIT/ML VIAL 5000 UNIT SC (05:15)
[2022-11-12 06:00] VITALS: BMI 36.8
[2022-11-12 06:04] LABS: Absolute Lymphocyte Count 1.46 X10^3/uL (0.83-4.51); Basophil# 0.05 X10^3/uL; Basophil% 0.9 % (0-1); Eosinophil# 0.18 X10^3/uL; Eosinophils% 3.4 % (0-5); Hematocrit 32.8 % (40-54); Hemoglobin 10.1 g/dL (13.0-16.5); Lymphocyte # 1.46 X10^3/ul (0.83-4.51); Lymphocyte % 27.5 % (19-41); Mean Corp Hgb Conc 30.8 g/dL (32-36); Mean Corpuscular Hgb 30.1 pg (27.0-32.0); Mean Corpuscular Volume 97.6 fL (80-94); Mean Platelet Vol. 9.9 fl (6.2-12.0); Monocyte# 0.58 X10^3/uL; Monocyte% 10.9 % (0-10); NRBC Flagged by Analyzer 0 % (0-5); Neutrophil # 3.01 X10^3/uL (2.7-7.7); Neutrophil % 56.9 % (47-70); Platelet Count 171 K/mm3 (150-450); RBC Distribution Width CV 13.2 % (11.6-14.6); RBC Distribution Width SD 46.9 fl (35.1-43.9); Red Blood Count 3.36 M/mm3 (4.6-6.2); White Blood Count 5.3 K/mm3 (4.4-11.0)
[2022-11-12 06:47] LABS: Anion Gap 3 (5-15); BUN 46 mg/dL (7-18); BUN/Creat Ratio 30.3 RATIO (10-20); Calcium,Total 8.5 mg/dL (8.5-10.1); Chloride 118 mmol/L (98-107); Creatinine, Serum 1.52 mg/dL (0.70-1.30); EST Glomerular Filtration Rate 47 mL/min (>60); Est Glom Filt Rate - Afr Amer 57 mL/min (>60); Estimated Creatinine Clearance 40.42 ml/min; Glucose 104 mg/dL (74-106); Potassium 5.5 mmol/L (3.5-5.1); Sodium Level 141 mmol/L (136-145)
[2022-11-12 07:20] LABS: Bedside Glucose 115 mg/dL (74-106)
[2022-11-12] MEDS: Furosemide 20 MG Tablet PO (08:52)
[2022-11-12] MEDS: Sodium Polystyrene Sulfonate 15 GM/60 ML UDC 30 GM PO (08:52)
[2022-11-12] MEDS: Albuterol 2.5 MG/3 ML VIAL.NEB. INHALATION (09:06)
[2022-11-12 09:08] VITALS: PULSE 65; RESP 18; O2SAT 97
[2022-11-12] MEDS: Insulin Glargine-YFGN 100 UNIT/ML Pen 30 UNIT SC (10:17)
[2022-11-12 10:18] VITALS: PULSE 68
[2022-11-12] MEDS: hydrALAZINE 50 MG Tablet PO (10:18)
[2022-11-12] MEDS: Famotidine 20 MG Tablet PO (10:19)
[2022-11-12] MEDS: Flecainide 100 MG Tablet PO (10:19)
[2022-11-12] MEDS: amLODIPine 5 MG Tablet PO (10:19)
[2022-11-12] MEDS: Finasteride 5 MG Tablet PO (10:19)
[2022-11-12 10:20] VITALS: PULSE 68
[2022-11-12] MEDS: Metoprolol(XL)Succ 25 MG Tablet 12.5 MG PO (10:20)
[2022-11-12] MEDS: Sertraline 50 MG Tablet PO (10:20)
[2022-11-12 11:55] LABS: Bedside Glucose 120 mg/dL (74-106)
--- NOTE | 2022-11-12 12:03 | CASEMGMT ---
SIMONA sent updates to [facility] via [email or web address]. SIMONA also let them know patient may be returning today. Naz Phipps BAND INSTRUMENT REPAIRER KARTHIK
[2022-11-12 13:05] LABS: Anion Gap 3 (5-15); BUN 43 mg/dL (7-18); BUN/Creat Ratio 29.3 RATIO (10-20); Chloride 114 mmol/L (98-107); Creatinine, Serum 1.47 mg/dL (0.70-1.30); EST Glomerular Filtration Rate 49 mL/min (>60); Est Glom Filt Rate - Afr Amer 59 mL/min (>60); Estimated Creatinine Clearance 41.79 ml/min; Glucose 115 mg/dL (74-106); Potassium 4.7 mmol/L (3.5-5.1); Sodium Level 139 mmol/L (136-145)
--- NOTE | 2022-11-12 14:10 | TREXTCAR_ITS ---
Diet Diet Order/Speech Therapy: 11/10/22 16:56 Diet: Cardiac - Heart Healthy Food consistency:: Regular Liquid Consistency:: Regular/Thin Diet Comments: Calorie restricted to 1800 cals Routine Orders/Code Status Suppository Type: Dulcolax 10mg Suppository Frequency: Daily PRN Routine Lab Work: BMP (2-3 days) Code Status: Full Code Wound(s) Left upper chest: Wound Type: Surgical Incision Therapies Physical Therapy: Eval and Treat Problem/Diagnosis (1) Episode of generalized weakness: Status: Inactive Code(s): R53.1 - Weakness (2) Diarrhea: Status: Inactive Code(s): R19.7 - Diarrhea, unspecified (3) HROACE (acute kidney injury): Status: Acute Code(s): N17.9 - Acute kidney failure, unspecified Plan #dehydration #Hyperkalemia #Diarrhea #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 #Type 2 diabetes mellitus #MACHELLE Jr Ji is an 82-year-old male with a 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 He had some general weakness and an episode of slumping at [facility].? He was found to have a creatinine of 2.34 with a BUN of 70 and a bicarb of 18.? Cardiology contacted axillary been a question of chest pain and felt admission was reasonable primarily for his HORACE.? Hospitalist consulted for admission. He had episode where he was somewhat weak all over and slumped but remembers the course of the events and this lasted for several hours. Appears he had had a similar episode and was hospitalized before. Was not hypoglycemic. He was admitted to telemetry and pacemaker interrogated which was unrevealing, no profound positive on orthostatic vital signs. He was having diarrhea 1 to 2 days before coming in and was still taking his Lasix and given his kidney function and exam it appears he was somewhat volume depleted. Diuretics were held and he was gently hydrated and this improved. Was hyperkalemic several times and this was treated with Kayexalate and fluids, several medication adjustments and afternoon of discharge and was within normal limits. Due to his diarrhea he did have C. difficile and enteric pathogen and COVID which were all negative. Additionally had echocardiogram with EF of 65, pulmonary artery systolic pressure 36 and normal left ventricular systolic function. He had no further concerns or complaints after admission and on day of discharge reported feeling back to normal with no chest pain or changes in his breathing and no more episodes of the generalized weakness. Hospital discharge instructions as followed: -You were slightly dehydrated on admission so your water pill was held, would resume at 20 mg daily and weigh yourself consistently -You were noted to have an elevated potassium several times during your admission so your spironolactone has been held as well as your olmesartan. - Would recommend lab work (BMP) to check your kidney function and potassium in 2 to 3 days through your primary care physician's office. Please call their office upon discharge to obtain order for lab work. -Given your blood pressure medication changes would recommend checking her blood pressure daily as he may need further adjustments -Your famotidine has been decreased to 20 mg with your kidney function -Please call your primary care provider's office upon discharge to schedule a hospital follow up within 1 week. -For any concerning signs or symptoms please call 911 or proceed to the nearest emergency department Allergies/Procedures Done in Hospital Allergies hydrocodone bitartrate [From Vicodin] Adverse Reaction (Severe, Verified 10/24/22 12:54) Other sick hydroxyzine Adverse Reaction (Severe, Verified 10/24/22 12:54) Other CALLED DIZZINESS Procedures: Transthoracic Echo Type of Care/Length of Stay Estimated LOS: Convalescent Care Less Than 30 days Type of Care Needed: Skilled Rehab Potential: Fair Prognosis: Fair Additional Orders/Day of Discharge Day of Discharge: 11/12/22 Discharge Plan Admission Admit Date/Time: 11/10/22 18:19 Primary Reason for Your Visit: Generalized weakness Attending Provider: Margarita Jackson Primary Care Provider: Tosha Shrestha Instructions Patient Instructions: Dehydration Additional Instructions / Restrictions: DISCHARGE INSTRUCTIONS PLEASE READ *Please take this with you to your next doctors appointment* -You were slightly dehydrated on admission so your water pill was held, would resume at 20 mg daily and weigh yourself consistently -You were noted to have an elevated potassium several times during your admission so your spironolactone has been held as well as your olmesartan. - Would recommend lab work (BMP) to check your kidney function and potassium in 2 to 3 days through your primary care physician's office. Please call their office upon discharge to obtain order for lab work. -Given your blood pressure medication changes would recommend checking her blood pressure daily as he may need further adjustments -Your famotidine has been decreased to 20 mg with your kidney function -Please call your primary care provider's office upon discharge to schedule a hospital follow up within 1 week. -For any concerning signs or symptoms please call 911 or proceed to the nearest emergency department Discharge Orders/Prescriptions Prescriptions: Continued pramipexole [Mirapex] 1 mg tablet 2 mg PO QHS Qty: 180 3RF sertraline 25 mg tablet 37.5 mg PO DAILY dulaglutide 4.5 mg/0.5 mL pen injector 4.5 mg SC .COMPLEX Qty: 2 2RF Rx Instructions: 4.5 mg subcut every friday meclizine 25 mg tablet 25 mg PO TID PRN (Reason: dizziness) Qty: 90 0RF ferrous sulfate 325 mg (65 mg iron) tablet 325 mg PO Rx Instructions: only acetaminophen 500 mg Tablet 1,000 mg PO Q6H PRN (Reason: Pain) amlodipine 10 mg tablet 5 mg PO DAILY simvastatin 20 mg tablet 20 mg PO QHS hydralazine 50 mg tablet 50 mg PO BID ergocalciferol (vitamin D2) 1,250 mcg (50,000 unit) capsule 50,000 unit PO QMONTH progesterone micronized 100 mg capsule 100 mg PO QAM insulin glargine 100 unit/mL (3 mL) insulin pen 30 unit subcut QAM finasteride 5 mg tablet 5 mg PO DAILY Qty: 90 3RF flecainide 100 mg tablet 100 mg PO Q12H Qty: 180 2RF Hold Instructions: bradycardia 07/09 metoprolol succinate 25 mg tablet extended release 24 hr 12.5 mg PO DAILY Changed famotidine 40 mg tablet 20 mg PO DAILY 30 Days Qty: 15 0RF furosemide 40 mg tablet 20 mg PO DAILY 30 Days Qty: 15 0RF Discontinued spironolactone 50 mg tablet 50 mg PO DAILY olmesartan 40 mg tablet 20 mg PO BID prednisone 20 mg tablet 40 mg PO BREAKFAST 2 Days Qty: 4 0RF Referrals / Follow Up: Tosha Shrestha MD [Primary Care Provider] - Within 1 Week Disposition Disposition (needs filled in before D/C Order can be placed): Intermediate Facility
--- NOTE | 2022-11-12 14:16 | PCM.DC.SUM ---
Providers Date of Admission: 11/10/22 Date of Discharge: 11/12/22 Primary Care Physician: Dr. Tosha Shrestha MD Reason For Visit: GEN WEAKNESS, HORACE Diagnosis Discharge Diagnosis (1) Episode of generalized weakness: Status: Inactive Code(s): R53.1 - Weakness (2) Diarrhea: Status: Inactive Code(s): R19.7 - Diarrhea, unspecified (3) HORACE (acute kidney injury): Status: Acute Code(s): N17.9 - Acute kidney failure, unspecified Plan #dehydration #Hyperkalemia #Diarrhea #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 #Type 2 diabetes mellitus #MACHELLE Medications at Discharge Home Medications finasteride 5 mg tablet 5 mg PO DAILY PROSTATE #90 tabs 11/03/18 pramipexole 1 mg tablet (Mirapex) 2 mg PO QHS RLS #180 tabs 12/10/21 flecainide 100 mg tablet 100 mg PO Q12H HEART RATE #180 tabs 04/01/22 sertraline 25 mg tablet 37.5 mg PO DAILY DEPRESSION 04/05/22 metoprolol succinate 25 mg tablet,extended release 24 hr 12.5 mg PO DAILY BP 07/16/22 ferrous sulfate 325 mg (65 mg iron) tablet 325 mg PO TH supplement 07/31/22 acetaminophen 500 mg tablet 1,000 mg PO Q6H PRN Pain 10/06/22 amlodipine 10 mg tablet 5 mg PO DAILY BP 10/06/22 ergocalciferol (vitamin D2) 1,250 mcg (50,000 unit) capsule 50,000 unit PO QMONTH SUPPLEMENT 10/06/22 hydralazine 50 mg tablet 50 mg PO BID BP 10/06/22 insulin glargine 100 unit/mL (3 mL) subcutaneous pen 30 unit subcut QAM DM 10/06/22 progesterone micronized 100 mg capsule 100 mg PO QAM HORMONE 10/06/22 simvastatin 20 mg tablet 20 mg PO QHS CHOLESTEROL 10/06/22 dulaglutide 4.5 mg/0.5 mL subcutaneous pen injector 4.5 mg (0.5 mL) subcut .COMPLEX DM #2 mL 10/24/22 meclizine 25 mg tablet 25 mg PO TID PRN dizziness #90 tabs 10/24/22 famotidine 40 mg tablet 20 mg PO DAILY GERD 30 days #15 tabs 11/12/22 furosemide 40 mg tablet 20 mg PO DAILY FLUID 30 days #15 tabs 11/12/22 Hospital Course Procedures 2-D Echocardiogram Summary of Care Provided Minutes Spent on Discharge: 31 Hospital Course: Jr Ji is an 82-year-old male with a 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 He had some general weakness and an episode of slumping at [facility].? He was found to have a creatinine of 2.34 with a BUN of 70 and a bicarb of 18.? Cardiology contacted axillary been a question of chest pain and felt admission was reasonable primarily for his HORACE.? Hospitalist consulted for admission. He had episode where he was somewhat weak all over and slumped but remembers the course of the events and this lasted for several hours. Appears he had had a similar episode and was hospitalized before. Was not hypoglycemic. He was admitted to telemetry and pacemaker interrogated which was unrevealing, no profound positive on orthostatic vital signs. He was having diarrhea 1 to 2 days before coming in and was still taking his Lasix and given his kidney function and exam it appears he was somewhat volume depleted. Diuretics were held and he was gently hydrated and this improved. Was hyperkalemic several times and this was treated with Kayexalate and fluids, several medication adjustments and afternoon of discharge and was within normal limits. Due to his diarrhea he did have C. difficile and enteric pathogen and COVID which were all negative. Additionally had echocardiogram with EF of 65, pulmonary artery systolic pressure 36 and normal left ventricular systolic function. He had no further concerns or complaints after admission and on day of discharge reported feeling back to normal with no chest pain or changes in his breathing and no more episodes of the generalized weakness. Hospital discharge instructions as followed: -You were slightly dehydrated on admission so your water pill was held, would resume at 20 mg daily and weigh yourself consistently -You were noted to have an elevated potassium several times during your admission so your spironolactone has been held as well as your olmesartan. - Would recommend lab work (BMP) to check your kidney function and potassium in 2 to 3 days through your primary care physician's office. Please call their office upon discharge to obtain order for lab work. -Given your blood pressure medication changes would recommend checking her blood pressure daily as he may need further adjustments -Your famotidine has been decreased to 20 mg with your kidney function -Please call your primary care provider's office upon discharge to schedule a hospital follow up within 1 week. -For any concerning signs or symptoms please call 911 or proceed to the nearest emergency department Physical Exam Narrative General: Alert, oriented, no apparent distress HEENT: Atraumatic, normocephalic Eyes: Anicteric, normal conjunctiva, extraocular movements grossly intact Neck: Supple Respiratory: Clear to auscultation bilaterally, normal respiratory effort Cardiovascular: Regular rate and rhythm GI: Soft, nontender, nondistended Extremities: Trace bilateral lower extremity edema Musculoskeletal: Moving all extremities Neuro: No overt focal neurological deficits Skin: No rashes appreciated Psych: Cooperative Weight / BMI Weight Weight: 123.2 kg Body Mass Index (BMI) 36.8 ABG / Lab / Microbiology Data Result Diagrams: 11/12/22 04:21 11/12/22 12:08 Laboratory: Laboratory Results - last 24 hr 11/11/22 16:33: POC Glucose 145 H 11/11/22 19:04: Sodium 140, Potassium 5.1, Chloride 116 H, Carbon Dioxide 21.0, Anion Gap 3 L, BUN 50 H, Creatinine 1.64 H, Estim Creat Clear Calc 37.46, Est GFR (MDRD) Af Amer 52 L, Est GFR (MDRD) Non-Af 43 L, BUN/Creatinine Ratio 30.5 H, Glucose 168 H, Calcium 8.3 L 11/11/22 20:28: POC Glucose 141 H 11/12/22 04:21: WBC 5.3, RBC 3.36 L, Hgb 10.1 L, Hct 32.8 L, MCV 97.6 H, MCH 30.1, MCHC 30.8 L D, RDW Std Deviation 46.9 H, RDW Coeff of Flavio 13.2, Plt Count 171, MPV 9.9, Immature Gran % (Auto) 0.400, Neut % (Auto) 56.9, Lymph % (Auto) 27.5, [place] % (Auto) 10.9 H, Eos % (Auto) 3.4, Baso % (Auto) 0.9, Absolute Neuts (auto) 3.0, Absolute Lymphs (auto) 1.46, Nucleated RBC % 0 11/12/22 04:21: Sodium 141, Potassium 5.5 H, Chloride 118 H, Carbon Dioxide 20.0 L, Anion Gap 3 L, BUN 46 H, Creatinine 1.52 H, Estim Creat Clear Calc 40.42, Est GFR (MDRD) Af Amer 57 L, Est GFR (MDRD) Non-Af 47 L, BUN/Creatinine Ratio 30.3 H, Glucose 104, Calcium 8.5 11/12/22 06:03: POC Glucose 115 H 11/12/22 11:33: POC Glucose 120 H 11/12/22 12:08: Sodium 139, Potassium 4.7, Chloride 114 H, Carbon Dioxide 22.0, Anion Gap 3 L, BUN 43 H, Creatinine 1.47 H, Estim Creat Clear Calc 41.79, Est GFR (MDRD) Af Amer 59 L, Est GFR (MDRD) Non-Af 49 L, BUN/Creatinine Ratio 29.3 H, Glucose 115 H, Calcium 9.0 Microbiology: Microbiology 11/11/22 13:53 Stool Enteric Bacteriology - Final 11/11/22 13:53 Stool C. difficile DNA Amplification - Final 11/10/22 17:30 Nasal Secretion SARS-CoV-2 & FLU Antigen (Rapid) - Final Radiography Diagnostic Testing: Radiology Impression Echocardiogram 11/10/22 15:44 Interpretation Summary Normal LV size. Left ventricular systolic function is normal. The estimated ejection fraction is 65 %. Normal systolic function. Pulmonary artery systolic pressure is 36 mmHg. The left atrium is moderately enlarged. Ordering Physician: Margarita Jackson Referring Physician: Tosha Shrestha Performed By: Albertina Schmitt RCS Meaningful Use Info Meaningful Use Diagnoses (Choose all that apply): None applicable Discharge Plan Admission Admit Date/Time: 11/10/22 18:19 Primary Reason for Your Visit: Generalized weakness Attending Provider: Margarita Jackson Primary Care Provider: Tosha Shrestha Instructions Patient Instructions: Dehydration Additional Instructions / Restrictions: DISCHARGE INSTRUCTIONS PLEASE READ *Please take this with you to your next doctors appointment* -You were slightly dehydrated on admission so your water pill was held, would resume at 20 mg daily and weigh yourself consistently -You were noted to have an elevated potassium several times during your admission so your spironolactone has been held as well as your olmesartan. - Would recommend lab work (BMP) to check your kidney function and potassium in 2 to 3 days through your primary care physician's office. Please call their office upon discharge to obtain order for lab work. -Given your blood pressure medication changes would recommend checking her blood pressure daily as he may need further adjustments -Your famotidine has been decreased to 20 mg with your kidney function -Please call your primary care provider's office upon discharge to schedule a hospital follow up within 1 week. -For any concerning signs or symptoms please call 911 or proceed to the nearest emergency department Discharge Orders/Prescriptions Prescriptions: Continued pramipexole [Mirapex] 1 mg tablet 2 mg PO QHS Qty: 180 3RF sertraline 25 mg tablet 37.5 mg PO DAILY dulaglutide 4.5 mg/0.5 mL pen injector 4.5 mg SC .COMPLEX Qty: 2 2RF Rx Instructions: 4.5 mg subcut every friday meclizine 25 mg tablet 25 mg PO TID PRN (Reason: dizziness) Qty: 90 0RF ferrous sulfate 325 mg (65 mg iron) tablet 325 mg PO Rx Instructions: only acetaminophen 500 mg Tablet 1,000 mg PO Q6H PRN (Reason: Pain) amlodipine 10 mg tablet 5 mg PO DAILY simvastatin 20 mg tablet 20 mg PO QHS hydralazine 50 mg tablet 50 mg PO BID ergocalciferol (vitamin D2) 1,250 mcg (50,000 unit) capsule 50,000 unit PO QMONTH progesterone micronized 100 mg capsule 100 mg PO QAM insulin glargine 100 unit/mL (3 mL) insulin pen 30 unit subcut QAM finasteride 5 mg tablet 5 mg PO DAILY Qty: 90 3RF flecainide 100 mg tablet 100 mg PO Q12H Qty: 180 2RF Hold Instructions: bradycardia 07/09 metoprolol succinate 25 mg tablet extended release 24 hr 12.5 mg PO DAILY Changed famotidine 40 mg tablet 20 mg PO DAILY 30 Days Qty: 15 0RF furosemide 40 mg tablet 20 mg PO DAILY 30 Days Qty: 15 0RF Discontinued spironolactone 50 mg tablet 50 mg PO DAILY olmesartan 40 mg tablet 20 mg PO BID prednisone 20 mg tablet 40 mg PO BREAKFAST 2 Days Qty: 4 0RF Referrals / Follow Up: Tosha Shrestha MD [Primary Care Provider] - Within 1 Week Disposition Disposition (needs filled in before D/C Order can be placed): [facility] Charges/Coding Visit Charges Inpatient E&M: 36646 Disch Hosp >30min
--- NOTE | 2022-11-12 14:42 | PHA.DC.MR ---
Pharmacy Service has performed discharge medication reconciliation for this patient. The patient's discharge medication list was reviewed for discrepancies and discrepancies were resolved. Home Medications finasteride 5 mg tablet 5 mg PO DAILY PROSTATE #90 tabs 11/03/18 pramipexole 1 mg tablet (Mirapex) 2 mg PO QHS RLS #180 tabs 12/10/21 flecainide 100 mg tablet 100 mg PO Q12H HEART RATE #180 tabs 04/01/22 sertraline 25 mg tablet 37.5 mg PO DAILY DEPRESSION 04/05/22 metoprolol succinate 25 mg tablet,extended release 24 hr 12.5 mg PO DAILY BP 07/16/22 ferrous sulfate 325 mg (65 mg iron) tablet 325 mg PO TH supplement 07/31/22 acetaminophen 500 mg tablet 1,000 mg PO Q6H PRN Pain 10/06/22 amlodipine 10 mg tablet 5 mg PO DAILY BP 10/06/22 ergocalciferol (vitamin D2) 1,250 mcg (50,000 unit) capsule 50,000 unit PO QMONTH SUPPLEMENT 10/06/22 hydralazine 50 mg tablet 50 mg PO BID BP 10/06/22 insulin glargine 100 unit/mL (3 mL) subcutaneous pen 30 unit subcut QAM DM 10/06/22 progesterone micronized 100 mg capsule 100 mg PO QAM HORMONE 10/06/22 simvastatin 20 mg tablet 20 mg PO QHS CHOLESTEROL 10/06/22 dulaglutide 4.5 mg/0.5 mL subcutaneous pen injector 4.5 mg (0.5 mL) subcut .COMPLEX DM #2 mL 10/24/22 meclizine 25 mg tablet 25 mg PO TID PRN dizziness #90 tabs 10/24/22 famotidine 40 mg tablet 20 mg PO DAILY GERD 30 days #15 tabs 11/12/22 furosemide 40 mg tablet 20 mg PO DAILY FLUID 30 days #15 tabs 11/12/22
--- NOTE | 2022-11-12 15:06 | CASEMGMT ---
Orders were sent to [facility] via fax and [facility]. SW also faxed COVID test. Patient's will transport patient via private vehicle. SW will notify [facility] when patient is leaving and notify then that patient will need assistance getting inside. Naz Phipps HELPDESK ANALYST KARTHIK
--- NOTE | 2022-11-12 15:51 | CASEMGMT ---
SIMONA called [facility] and notified them that patient will be coming by private vehicle and will need assistance getting inside the building. [facility] transported via private vehicle. Naz ANGELES
== END 2022-11-12 15:57 | disposition skilled nursing facility (03) | DRG 683 ==
LOC: ED 11:40 → PCU 15:55
PROVIDERS: Admitting Provider Internal Medicine; Emergency Provider Student in an Organized Health Care Education/Training Program; PCP Internal Medicine; Visit Provider Internal Medicine
DX: N17.9 Acute kidney failure, unspecified (principal); I13.0 Hypertensive heart and chronic kidney disease with heart failure and stage 1 through stage 4 chronic kidney disease, or unspecified chronic kidney disease; I48.92 Unspecified atrial flutter; I50.32 Chronic diastolic (congestive) heart failure; D63.1 Anemia in chronic kidney disease; E86.0 Dehydration; E11.22 Type 2 diabetes mellitus with diabetic chronic kidney disease; N18.32 Chronic kidney disease, stage 3b; Z79.4 Long term (current) use of insulin; E11.65 Type 2 diabetes mellitus with hyperglycemia; R19.7 Diarrhea, unspecified; I25.10 Atherosclerotic heart disease of native coronary artery without angina pectoris; G47.33 Obstructive sleep apnea (adult) (pediatric); E87.5 Hyperkalemia; Z95.0 Presence of cardiac pacemaker; Z79.85 Long-term (current) use of injectable non-insulin antidiabetic drugs; Z79.899 Other long term (current) drug therapy; Z86.73 Personal history of transient ischemic attack (TIA), and cerebral infarction without residual deficits
CPT/HCPCS: 36415; 71045; 80048; 80053; 80076; 82962; 83690; 84443; 84484; 85025; 87426; 87428; 87493; 87506; 93005; 93306; 94640; 94668; 99285; J7030; Q9957; A4216; J0610

== ENCOUNTER 2022-11-30 08:31 | Observation (INO) | payer MEDICARE, BC, SELFPAY ==
[2022-11-30] VITALS (10 sets, daily range): BP systolic 112–153; BP diastolic 53–106; PULSE 50–123; RESP 14–31; TEMP 35.9–36.7; O2SAT 93–97; BMI 38.9; BMI 38.0
--- NOTE | 2022-11-30 08:49 | EKG12_ITS ---
Test Reason : Blood Pressure : / mmHG Vent. Rate : 111 BPM Atrial Rate : 064 BPM P-R Int : 000 ms QRS Dur : 178 ms QT Int : 440 ms P-R-T Axes : 000 -74 088 degrees QTc Int : 598 ms Ventricular-paced rhythm Abnormal ECG Confirmed by KADY HERNANDEZ ([id number]), design editor NITZA ROJAS ([id number]) on 12/03/2022 7:26:49 AM Referred By: JALEN Confirmed By:KADY HERNANDEZ
[2022-11-30 09:01] LABS: Absolute Lymphocyte Count 1.79 X10^3/uL (0.83-4.51); Absolute Neutrophil Count 6.9 X10^3/uL (2.0-7.7); Basophil# 0.08 X10^3/uL; Basophil% 0.8 % (0-1); Eosinophil# 0.26 X10^3/uL; Eosinophils% 2.6 % (0-5); Hematocrit 34.8 % (40-54); Lymphocyte # 1.79 X10^3/ul (0.83-4.51); Lymphocyte % 17.8 % (19-41); Mean Corp Hgb Conc 31.6 g/dL (32-36); Mean Corpuscular Hgb 30.3 pg (27.0-32.0); Mean Corpuscular Volume 95.9 fL (80-94); Mean Platelet Vol. 10.5 fl (6.2-12.0); Monocyte# 0.99 X10^3/uL; Monocyte% 9.8 % (0-10); NRBC Flagged by Analyzer 0 % (0-5); Neutrophil # 6.92 X10^3/uL (2.7-7.7); Neutrophil % 68.6 % (47-70); Platelet Count 205 K/mm3 (150-450); RBC Distribution Width CV 13.4 % (11.6-14.6); RBC Distribution Width SD 46.8 fl (35.1-43.9); Red Blood Count 3.63 M/mm3 (4.6-6.2); White Blood Count 10.1 K/mm3 (4.4-11.0)
--- NOTE | 2022-11-30 09:04 | RAD_ITS ---
STUDY: X-RAY CHEST REASON FOR EXAM: Male, 82 years old. CP TECHNIQUE: Single AP portable view of the chest. COMPARISON: November 10, 2022 chest x-ray FINDINGS: There is a left-sided pacer with leads overlying the right atrium and ventricle. There is minimal left lower lobe atelectasis. There is a visualized indwelling awake overnight monitor device overlying the left chest.. There is no demonstrated pleural abnormality. Normal size heart. Normal mediastinum and lakhwinder. Normal visualized pulmonary arteries. There is atherosclerotic calcification of the aortic arch with tortuosity. There are diffuse degenerative changes of the visualized thoracic spine. Normal visualized ribs, clavicles, and shoulders. There is no demonstrated abnormality of the visualized soft tissue structures of the upper abdomen. RAD/Chest 1 View (Portable) IMPRESSION: Minimal left lower lobe atelectasis similar to prior study and/or scarring. Pacer. No definitive focal infiltrate or significant change since prior study. Electronically Signed: Kavitha Justin MD at 9:28 EDT ,
[2022-11-30 09:17] LABS: Troponin-I HS 72 pg/mL (3.0-78.0)
[2022-11-30 09:19] LABS: Anion Gap 6 (5-15); BUN 42 mg/dL (7-18); BUN/Creat Ratio 27.1 RATIO (10-20); Calcium,Total 9.1 mg/dL (8.5-10.1); Chloride 115 mmol/L (98-107); Creatinine, Serum 1.55 mg/dL (0.70-1.30); EST Glomerular Filtration Rate 46 mL/min (>60); Est Glom Filt Rate - Afr Amer 55 mL/min (>60); Estimated Creatinine Clearance 39.63 ml/min; Glucose 163 mg/dL (74-106); Potassium 4.8 mmol/L (3.5-5.1); Sodium Level 138 mmol/L (136-145)
--- NOTE | 2022-11-30 10:24 | EDS_ITS ---
HPI History of Present Illness Chief Complaint: Weakness Onset/Context/Timing Onset: Today and Hours Context: Gradual Onset Timing: Continuous Quality: Sharp Location: Left jaw Worsened by: Nothing Relieved by: Nothing Narrative Narrative: Patient presents with elevated blood pressure and generalized weakness that began today. Patient states it is gradually gotten worse. Patient states she had some sharp pain in the left side of his jaw earlier today. Patient states this has resolved. Patient states nothing makes it better nothing makes it worse. Patient recently had a pacemaker placed. Patient admits to some mild pain over the pacemaker site. Patient does admit to a mild cough. Patient also admits to some shortness of breath. [facility] Medical History (HFpEF) heart failure with preserved ejection fraction (12/12/20) Acute respiratory failure with hypoxia Anemia Anemia of chronic renal failure, stage 3 (moderate) Anxiety and depression Atherosclerotic heart disease of [place] coronary artery without angina pectoris Atrial flutter Atypical chest pain Back pain BMI 34.0-34.9,adult BPH (benign prostatic hyperplasia) BPPV (benign paroxysmal positional vertigo) Bradycardia Cardiac dysrhythmia Cardiology follow-up encounter CHF (congestive heart failure) CHF (congestive heart failure) De Quervain's tenosynovitis Debility Depression Dermatitis Diabetes mellitus Diabetic kidney disease Dizziness DM type 2 with diabetic peripheral neuropathy DVT (deep venous thrombosis) Dyslipidemia Dysphagia Essential (primary) hypertension Fall Flu vaccine need Fracture of great toe Gastric reflux Gout Gout flare Health care maintenance History of echocardiogram History of edema History of GI bleed History of peptic ulcer History of renal calculi History of ulceration HLD (hyperlipidemia) Injury of head and neck Iron deficiency anemia Iron deficiency anemia due to chronic blood loss Kidney hematoma (12/08/20) Left knee pain Left leg DVT Loss of equilibrium Low iron Malaise Near syncope Orthostatic hypotension MACHELLE (obstructive sleep apnea) Pain of left lower extremity Paroxysmal atrial fibrillation Paroxysmal atrial flutter Pneumonia Polypharmacy 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 Presence of cardiac pacemaker Prostate disease Psoriasis Recurrent syncope (06/19/22) Renal calculi RLS (restless legs syndrome) Sex disorder Sick sinus syndrome Suicidal ideation SVT (supraventricular tachycardia) TIA (transient ischemic attack) Type 2 diabetes mellitus with diabetic polyneuropathy Urolithiasis Venous insufficiency of both lower extremities Vertigo Walker as ambulation aid Wears glasses Home Medications finasteride 5 mg tablet 5 mg PO DAILY PROSTATE #90 tabs 11/03/18 [Rx Last Taken 11/30/22] acetaminophen 500 mg tablet 1,000 mg PO Q6H PRN Pain 10/06/22 [History Last Taken 11/29/22] hydralazine 50 mg tablet 50 mg PO BID BP 10/06/22 [History Last Taken 11/30/22] insulin glargine 100 unit/mL (3 mL) subcutaneous pen 30 unit subcut QAM DM 10/06/22 [History Last Taken 11/29/22] progesterone micronized 100 mg capsule 100 mg PO QAM HORMONE 10/06/22 [History Last Taken 11/30/22] dulaglutide 4.5 mg/0.5 mL subcutaneous pen injector 4.5 mg (0.5 mL) subcut .COMPLEX DM #2 mL 10/24/22 [Rx Last Taken 11/29/22] meclizine 25 mg tablet 25 mg PO TID PRN dizziness #90 tabs 10/24/22 [Rx Last Taken 11/29/22] furosemide 20 mg tablet 20 mg PO BID 11/26/22 [History Last Taken 11/30/22] hydralazine 25 mg tablet 25 mg PO BID 11/26/22 [History Last Taken 11/30/22] amlodipine 5 mg tablet 5 mg PO DAILY BP #90 tabs 11/29/22 [Rx Last Taken 11/30/22] atorvastatin 10 mg tablet 10 mg PO DAILY #90 tabs 11/29/22 [Rx Last Taken 11/29/22] ergocalciferol (vitamin D2) 1,250 mcg (50,000 unit) capsule 50,000 unit PO QMONTH SUPPLEMENT #14 caps 11/29/22 [Rx Last Taken 11/16/22] famotidine 20 mg tablet 20 mg PO DAILY #90 tabs 11/29/22 [Rx Last Taken 11/30/22] ferrous sulfate 325 mg (65 mg iron) tablet 325 mg PO TH supplement #90 tabs 11/29/22 [Rx Last Taken 11/28/22] flecainide 100 mg tablet 100 mg PO Q12H HEART RATE #180 tabs 11/29/22 [Rx Last Taken 11/30/22] metoprolol succinate 25 mg tablet,extended release 24 hr 12.5 mg PO DAILY BP #90 tabs 11/29/22 [Rx Last Taken 11/30/22] pramipexole 1 mg tablet (Mirapex) 2 mg PO QHS RLS #180 tabs 11/29/22 [Rx Last Taken 11/29/22] sertraline 25 mg tablet 25 mg PO DAILY DEPRESSION #90 tabs 11/29/22 [Rx Last Taken 11/30/22] Allergy/AdvReac Type Severity Reaction Status Date / Time hydrocodone bitartrate AdvReac Severe Other Verified 11/27/22 12:50 [From Vicodin] hydroxyzine AdvReac Severe Other Verified 11/27/22 12:50 Family History (Reviewed 11/27/22 @ 13:10 by Therese Rehman [employer] SCIENCE TECHNICAL OFFICER, LIFE SCIENCE TECHNICAL OFFICER-C) Father Diabetes Hypertension Cancer Lung cancer Mother Hypertension CVA (cerebral vascular accident) Sister Diabetes Son Diabetes Surgical History History of cardioversion (2015) History of cataract surgery History of left heart catheterization (02/16/13) History of lithotripsy (11/2020) History of loop recorder (06/26/22) History of radiofrequency ablation procedure for cardiac arrhythmia (02/05/06) history of right knee cap fracture History of right knee surgery Status post laser lithotripsy of ureteral calculus Status post left foot surgery STENT PLACEMENT FOR KIDNEY STONE Social History household members: spouse housing: house Smoking Status: Never smoker how long ago did patient quit smokin second hand exposure: No alcohol intake: never substance use type: does not use caffeine: No what type of physical activity do you participate in: none seatbelt use: always do you feel safe at home: Yes ROS ROS ED Constitutional Constitutional ED: Denies chills or fever(s) Eyes Eyes: Denies blurry vision or change in vision ENT ENT ED: Denies rhinorrhea or sore throat Cardiovascular Cardiovascular: Reports chest pain; Denies palpitations Respiratory/Chest Respiratory/Chest: Reports cough and dyspnea Gastrointestinal Gastrointestinal: Denies nausea or vomiting Genitourinary Genitourinary ED: Denies dysuria or hematuria Musculoskeletal Musculoskeletal: Denies back pain or neck pain Integumentary Denies abscess or rash Neurologic Neurologic: Reports headache(s) and weakness Allergic/Immunologic Allergic/Immunologic ED: Denies mouth swelling or urticaria EXAM Physical Exam Const Vital Signs: 11/30/22 08:36 11/30/22 08:42 11/30/22 08:43 Temperature 96.6 F L Temperature Source Temporal Pulse Rate 111 H 123 H Respiratory Rate 22 H 21 H Respiratory Effort Normal Non-Labored Respiratory Pattern Tachypnea Blood Pressure 128/91 H 133/106 H Blood Pressure Mean 103 115 Pulse Ox 93 93 Oxygen Delivery Method Room Air Room Air 11/30/22 10:37 11/30/22 12:57 11/30/22 14:08 Temperature Temperature Source Pulse Rate 54 L 50 L Respiratory Rate 31 H 23 H Respiratory Effort Respiratory Pattern Blood Pressure 138/64 H 149/53 H 146/59 H Blood Pressure Mean 88 85 88 Pulse Ox 97 93 Oxygen Delivery Method Room Air Room Air Positive well nourished and well developed General Appearance ED: well developed HEENT Reports moist mucous membranes Neck supple and no JVD Resp normal respiratory effort and clear to auscultation bilaterally Cardio regular rate and regular rhythm GI normal to inspection, nondistended, normoactive bowel sounds and non-tender Palpation: soft Extremity normal to inspection General Extremety ED: Negative for edema or tenderness General Extremity: Negative for edema Neuro oriented x3, CN's II-XII intact bilaterally and no sensory deficits noted Sensorium / Orientation: alert Motor Exam: strength 5/5 throughout Psych mental status grossly normal Skin no rashes or lesions noted MDM MDM MDM Narrative Medical decision making narrative: Differential diagnosis includes cardiac dysrhythmia, cardiac ischemia, pneumonia, electrolyte abnormality, anemia, and pulmonary embolism. EKG will be obtained to assess for cardiac dysrhythmia and cardiac ischemia. Chest x-ray will be obtained to assess for pneumonia and pneumothorax. CBC will be obtained to assess for anemia and leukocytosis. Basic metabolic profile will be obtained to assess for electrolyte abnormality and renal function. High-sensitivity troponin will be obtained to assess for cardiac ischemia. D-dimer will be obtained to assess for pulmonary embolism. History & Record Review Additional record(s) reviewed:: Prior labs Lab Data Attestation: I reviewed the patient's lab results. Lab results narrative: CBC was reviewed. There is a mild anemia with a hemoglobin of 11.0 hematocrit 34.8. This is stable compared to previous results. Basic metabolic profile shows a mildly elevated BUN of 42 and creatinine of 1.55. This is consistent with prior results. High-sensitivity troponin was reviewed and was normal at 72. 2-hour repeat high-sensitivity troponin was reviewed and was slightly elevated at 90. D-dimer was reviewed and was elevated at 1.14. Labs: Laboratory Results - last 24 hr 11/30/22 11/30/22 11/30/22 08:34 08:34 08:34 WBC 10.1 RBC 3.63 L Hgb 11.0 L Hct 34.8 L MCV 95.9 H MCH 30.3 MCHC 31.6 L RDW Std Deviation 46.8 H RDW Coeff of Flavio 13.4 Plt Count 205 MPV 10.5 Immature Gran % (Auto) 0.400 Neut % (Auto) 68.6 Lymph % (Auto) 17.8 L [place] % (Auto) 9.8 Eos % (Auto) 2.6 Baso % (Auto) 0.8 Absolute Neuts (auto) 6.9 Absolute Lymphs (auto) 1.79 Nucleated RBC % 0 D-Dimer Quant (PE/DVT) Sodium 138 Potassium 4.8 Chloride 115 H Carbon Dioxide 17.0 L Anion Gap 6 BUN 42 H Creatinine 1.55 H Estim Creat Clear Calc 39.63 Est GFR (MDRD) Af Amer 55 L Est GFR (MDRD) Non-Af 46 L BUN/Creatinine Ratio 27.1 H Glucose 163 H Calcium 9.1 Troponin I High Sens 72 11/30/22 11/30/22 11:20 11:20 WBC RBC Hgb Hct MCV MCH MCHC RDW Std Deviation RDW Coeff of Flavio Plt Count MPV Immature Gran % (Auto) Neut % (Auto) Lymph % (Auto) [place] % (Auto) Eos % (Auto) Baso % (Auto) Absolute Neuts (auto) Absolute Lymphs (auto) Nucleated RBC % D-Dimer Quant (PE/DVT) 1.14 H* Sodium Potassium Chloride Carbon Dioxide Anion Gap BUN Creatinine Estim Creat Clear Calc Est GFR (MDRD) Af Amer Est GFR (MDRD) Non-Af BUN/Creatinine Ratio Glucose Calcium Troponin I High Sens 90 H Radiography Diagnostic Testing: Clinical Impression(s) from Imaging Studies Chest X-Ray 11/30/22 09:04 IMPRESSION: Minimal left lower lobe atelectasis similar to prior study and/or scarring. Pacer. No definitive focal infiltrate or significant change since prior study. Electronically Signed: Kavitha Justin MD at 9:28 EDT , Chest CTA 11/30/22 11:41 IMPRESSION: No pulmonary embolism. Minimal interseptal thickening findings suggest mild pulmonary edema. This may be cardiac origin. There is mild cardiac enlargement visualized coronary calcification and pacemaker. Degenerative change of the thoracic spine. Cholelithiasis. Electronically Signed: Kavitha Justin MD at 13:47 EDT , Portable 1 view chest x-ray was obtained. On my independent interpretation, lung shah show bibasilar atelectasis. There is normal cardiac silhouette. Bony thorax is normal. There is no acute process noted. Radiologist also inter preted the x-ray and agrees. Because of the elevated D-dimer, CTA of the chest was obtained. There is no evidence of pulmonary embolism. There is no aortic dissection. There is minimal interseptal thickening suggesting mild pulmonary edema. There are degenerative changes of the thoracic spine. This was interpreted by the radiologist and was also independently reviewed by myself. EKG Initial EKG: Attestation: I personally reviewed and interpreted this EKG as follows: Interpretation: Paced (111) and LBBB Prior EKG tracings: available for review Prior: Unchanged (11/10/2022) Treatment and Re-Evaluation :: Patient was given IV fluids here. Patient is feeling somewhat better on reevaluation. Patient was advised of his findings. Patient was advised of the need for hospitalization to continue to monitor his troponin. Patient understands and is agreeable with the plan. Case was discussed with the hospitalist. He will admit the patient for observation. All questions were answered. Discharge Plan Triage Chief Complaint: Weakness ED Provider: Jonathan Farrell Dx/Rx/DC Orders Clinical Impression: Chest pain, Presence of cardiac pacemaker, DM type 2 with diabetic peripheral neuropathy Prescriptions: No Action dulaglutide 4.5 mg/0.5 mL pen injector 4.5 mg SC .COMPLEX Qty: 2 2RF Rx Instructions: 4.5 mg subcut every friday meclizine 25 mg tablet 25 mg PO TID PRN (Reason: dizziness) Qty: 90 0RF hydralazine 25 mg tablet 25 mg PO BID Label Comments: take 1 tablet by mouth twice a day furosemide 20 mg tablet 20 mg PO BID Label Comments: take 1 tablet by mouth once daily acetaminophen 500 mg Tablet 1,000 mg PO Q6H PRN (Reason: Pain) hydralazine 50 mg tablet 50 mg PO BID progesterone micronized 100 mg capsule 100 mg PO QAM insulin glargine 100 unit/mL (3 mL) insulin pen 30 unit subcut QAM finasteride 5 mg tablet 5 mg PO DAILY Qty: 90 3RF amlodipine 5 mg tablet 5 mg PO DAILY Qty: 90 0RF atorvastatin 10 mg tablet 10 mg PO DAILY Qty: 90 1RF ergocalciferol (vitamin D2) 1,250 mcg (50,000 unit) capsule 50,000 unit PO QMONTH Qty: 14 1RF famotidine 20 mg tablet 20 mg PO DAILY Qty: 90 3RF ferrous sulfate 325 mg (65 mg iron) tablet 325 mg PO TH Qty: 90 1RF Rx Instructions: only flecainide 100 mg tablet 100 mg PO Q12H Qty: 180 2RF Hold Instructions: bradycardia 07/09 metoprolol succinate 25 mg tablet extended release 24 hr 12.5 mg PO DAILY Qty: 90 1RF pramipexole [Mirapex] 1 mg tablet 2 mg PO QHS Qty: 180 3RF sertraline 25 mg tablet 25 mg PO DAILY Qty: 90 1RF Primary Care Provider: Tosha Shrestha Referrals: Tosha Shrestha MD [Primary Care Provider] - Disposition Disposition: Acute Care Hospital [facility]
[2022-11-30 11:40] LABS: D-Dimer Quantitative (DVT/PE) 1.14 FEU/ug/m (0.27-0.49)
--- NOTE | 2022-11-30 11:41 | CT_ITS ---
STUDY: CTA CHEST REASON FOR EXAM: Male, 82 years old. Elevated D-dimer RADIATION DOSAGE (If Supplied By Facility): CTDIvol = ( 15.04 ) mGy, DLP = ( 569.04 ) mGycm TECHNIQUE: The examination was performed with the intravenous administration of IV 100mL Isovue-370. Post-processing of the angiographic images was performed, with multiplanar reformation and 3D reconstruction. The study was x10 to 12:05 PM, and sent for interpretation at 12:25 PM Individualized dose optimization techniques were used for this CT. COMPARISON: November 30, 2022 chest x-ray FINDINGS: Normal enhancement of the main pulmonary artery and right and left pulmonary arteries. Normal enhancement of the bilateral peripheral pulmonary arteries. There is no demonstrated pulmonary embolism. There is partial atherosclerotic calcification of the aortic arch with tortuosity. There is no demonstrated aortic dissection. There are visualized coronary artery calcifications. There is a small pericardial effusion. There are few nonspecific subcentimeter mediastinal lymph nodes. nonspecific Normal hilar regions. Normal visualized trachea and bronchi. The anteroseptal markings are mildly prominent. There is a minimal subtle groundglass opacity suggesting probable mild edema. There is a subtle nonspecific cystic bleb in the right middle lobe measuring 6.5 mm. There is a left-sided pacer. Leads overlying the heart. There is an indwelling left-sided panel monitor device. There are degenerative changes of thoracic spine. There is multilevel disc space narrowing and anterior right osteophytosis. Study extends to the level of the kidneys. The visualized 2 gallstones is calcified measuring approximately 1.[address]/CTA Chest W/WO Contrast IMPRESSION: No pulmonary embolism. Minimal interseptal thickening findings suggest mild pulmonary edema. This may be cardiac origin. There is mild cardiac enlargement visualized coronary calcification and pacemaker. Degenerative change of the thoracic spine. Cholelithiasis. Electronically Signed: Kavitha Justin MD at 13:47 EDT ,
[2022-11-30] MEDS: 0.9% Normal Saline 1,000 ML 1000 ML IV (11:45)
[2022-11-30 11:46] LABS: Troponin-I HS 90 pg/mL (3.0-78.0)
--- NOTE | 2022-11-30 15:10 | PCM.HP.STD ---
HPI - General General Date of Admission: 11/30/22 HPI Narrative MARY SAN, is a 82 M who presents to the hospital with a series of vague concerns, first and foremost he felt weak this morning when he tried to get up he normally walks with a rollator but just recently and was discharged about a week ago from the intermediate after his most recent hospitalization. He also noticed this morning that his blood pressure was high into the 160s even after he had taken his morning medications and he states that he is very compliant. And then he also acknowledged some left jaw pain in the absence of chest pain or shortness of breath, that lasted for a few minutes and then resolved. In the ER his blood pressure is found to be elevated at 153 systolic but his vital signs are otherwise stable. Lab work demonstrates a baseline renal function and his troponin is slightly elevated to 90, his initial troponin today was 72. [facility] Medical History (HFpEF) heart failure with preserved ejection fraction (12/12/20) Acute respiratory failure with hypoxia Anemia Anemia of chronic renal failure, stage 3 (moderate) Anxiety and depression Atherosclerotic heart disease of [place] coronary artery without angina pectoris Atrial flutter Atypical chest pain Back pain BMI 34.0-34.9,adult BPH (benign prostatic hyperplasia) BPPV (benign paroxysmal positional vertigo) Bradycardia Cardiac dysrhythmia Cardiology follow-up encounter CHF (congestive heart failure) CHF (congestive heart failure) De Quervain's tenosynovitis Debility Depression Dermatitis Diabetes mellitus Diabetic kidney disease Dizziness DM type 2 with diabetic peripheral neuropathy DVT (deep venous thrombosis) Dyslipidemia Dysphagia Essential (primary) hypertension Fall Flu vaccine need Fracture of great toe Gastric reflux Gout Gout flare Health care maintenance History of echocardiogram History of edema History of GI bleed History of peptic ulcer History of renal calculi History of ulceration HLD (hyperlipidemia) Injury of head and neck Iron deficiency anemia Iron deficiency anemia due to chronic blood loss Kidney hematoma (12/08/20) Left knee pain Left leg DVT Loss of equilibrium Low iron Malaise Near syncope Orthostatic hypotension MACHELLE (obstructive sleep apnea) Pain of left lower extremity Paroxysmal atrial fibrillation Paroxysmal atrial flutter Pneumonia Polypharmacy 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 Presence of cardiac pacemaker Prostate disease Psoriasis Recurrent syncope (06/19/22) Renal calculi RLS (restless legs syndrome) Sex disorder Sick sinus syndrome Suicidal ideation SVT (supraventricular tachycardia) TIA (transient ischemic attack) Type 2 diabetes mellitus with diabetic polyneuropathy Urolithiasis Venous insufficiency of both lower extremities Vertigo Walker as ambulation aid Wears glasses Home Medications finasteride 5 mg tablet 5 mg PO DAILY PROSTATE #90 tabs 11/03/18 [Rx Last Taken 11/30/22] acetaminophen 500 mg tablet 1,000 mg PO Q6H PRN Pain 10/06/22 [History Last Taken 11/29/22] hydralazine 50 mg tablet 50 mg PO BID BP 10/06/22 [History Last Taken 11/30/22] insulin glargine 100 unit/mL (3 mL) subcutaneous pen 30 unit subcut QAM DM 10/06/22 [History Last Taken 11/29/22] progesterone micronized 100 mg capsule 100 mg PO QAM HORMONE 10/06/22 [History Last Taken 11/30/22] dulaglutide 4.5 mg/0.5 mL subcutaneous pen injector 4.5 mg (0.5 mL) subcut .COMPLEX DM #2 mL 10/24/22 [Rx Last Taken 11/29/22] meclizine 25 mg tablet 25 mg PO TID PRN dizziness #90 tabs 10/24/22 [Rx Last Taken 11/29/22] furosemide 20 mg tablet 20 mg PO BID 11/26/22 [History Last Taken 11/30/22] hydralazine 25 mg tablet 25 mg PO BID 11/26/22 [History Last Taken 11/30/22] amlodipine 5 mg tablet 5 mg PO DAILY BP #90 tabs 11/29/22 [Rx Last Taken 11/30/22] atorvastatin 10 mg tablet 10 mg PO DAILY #90 tabs 11/29/22 [Rx Last Taken 11/29/22] ergocalciferol (vitamin D2) 1,250 mcg (50,000 unit) capsule 50,000 unit PO QMONTH SUPPLEMENT #14 caps 11/29/22 [Rx Last Taken 11/16/22] famotidine 20 mg tablet 20 mg PO DAILY #90 tabs 11/29/22 [Rx Last Taken 11/30/22] ferrous sulfate 325 mg (65 mg iron) tablet 325 mg PO TH supplement #90 tabs 11/29/22 [Rx Last Taken 11/28/22] flecainide 100 mg tablet 100 mg PO Q12H HEART RATE #180 tabs 11/29/22 [Rx Last Taken 11/30/22] metoprolol succinate 25 mg tablet,extended release 24 hr 12.5 mg PO DAILY BP #90 tabs 11/29/22 [Rx Last Taken 11/30/22] pramipexole 1 mg tablet (Mirapex) 2 mg PO QHS RLS #180 tabs 11/29/22 [Rx Last Taken 11/29/22] sertraline 25 mg tablet 25 mg PO DAILY DEPRESSION #90 tabs 11/29/22 [Rx Last Taken 11/30/22] Allergy/AdvReac Type Severity Reaction Status Date / Time hydrocodone bitartrate AdvReac Severe Other Verified 11/27/22 12:50 [From Vicodin] hydroxyzine AdvReac Severe Other Verified 11/27/22 12:50 Family History Father Diabetes Hypertension Cancer Lung cancer Mother Hypertension CVA (cerebral vascular accident) Sister Diabetes Son Diabetes Surgical History History of cardioversion (2015) History of cataract surgery History of left heart catheterization (02/16/13) History of lithotripsy (11/2020) History of loop recorder (06/26/22) History of radiofrequency ablation procedure for cardiac arrhythmia (02/05/06) history of right knee cap fracture History of right knee surgery Status post laser lithotripsy of ureteral calculus Status post left foot surgery STENT PLACEMENT FOR KIDNEY STONE Social History household members: spouse housing: house Smoking Status: Never smoker how long ago did patient quit smokin second hand exposure: No alcohol intake: never substance use type: does not use caffeine: No what type of physical activity do you participate in: none seatbelt use: always do you feel safe at home: Yes ROS Constitutional Constitutional: Reports weakness; Denies chills, fatigue, fever(s) or malaise Eyes Eyes: Denies blurry vision ENT HEENT: Denies headache(s) or nasal discharge Cardiovascular Cardiovascular: Denies chest pain, dyspnea on exertion or syncope Respiratory/Chest Respiratory/Chest: Denies cough, shortness of breath at rest or shortness of breath with exertion Gastrointestinal Gastrointestinal: Denies constipation, diarrhea, nausea or vomiting Genitourinary Genitourinary: Denies dysuria Neurologic Neurologic: Denies focal weakness, numbness or tremor(s) Psychiatric Psychiatric: Denies anxiety or depression Vital Signs Vital Signs Vital Signs: 11/30/22 08:36 11/30/22 08:42 11/30/22 08:43 Temperature 96.6 F L Temperature Source Temporal Pulse Rate 111 H 123 H Respiratory Rate 22 H 21 H Respiratory Effort Normal Non-Labored Respiratory Pattern Tachypnea Blood Pressure 128/91 H 133/106 H Blood Pressure Mean 103 115 Pulse Ox 93 93 Oxygen Delivery Method Room Air Room Air 11/30/22 10:37 11/30/22 12:57 11/30/22 14:08 Temperature Temperature Source Pulse Rate 54 L 50 L Respiratory Rate 31 H 23 H Respiratory Effort Respiratory Pattern Blood Pressure 138/64 H 149/53 H 146/59 H Blood Pressure Mean 88 85 88 Pulse Ox 97 93 Oxygen Delivery Method Room Air Room Air 11/30/22 14:57 Temperature 97 F L Temperature Source Temporal Pulse Rate 78 Respiratory Rate 26 H Respiratory Effort Respiratory Pattern Blood Pressure 153/70 H Blood Pressure Mean 97 Pulse Ox 94 Oxygen Delivery Method Room Air Weight Weight: 287 lb 4.197 oz Body Mass Index (BMI) 38.9 Physical Exam Narrative General: Alert, Oriented x3, Cooperative, No apparent distress HEENT: Atraumatic, PERRLA, EOMI, Normocephalic, hard of hearing Oral: Moist Mucosa Neck: Supple, No JVD Lungs: Diminished, Normal air movement, No rhonchi, No wheeze, No rales Cardiovascular: Regular rate, Regular Rhythm, Normal S1, Normal S2, No murmurs Abdomen: Soft, Non Tender, Non-Distended, No Hepato-splenomegaly Extremities: Edema, Capillary Refill Less than 3 Seconds Skin: No rashes, No breakdown Musculoskeletal: No Tenderness to Palpation of Joints or Extremities Neurological: Cranial nerves II-XII grossly intact, Motor Exam 5/5 strength throughout, Sensory exam intact to light touch and pain Psych/Mental Status: Normal Affect, Appropriate Results Lab / Micro Data Result Diagrams: 11/30/22 08:34 11/30/22 08:34 Labs: Laboratory Results - last 24 hr 11/30/22 08:34: WBC 10.1, RBC 3.63 L, Hgb 11.0 L, Hct 34.8 L, MCV 95.9 H, MCH 30.3, MCHC 31.6 L, RDW Std Deviation 46.8 H, RDW Coeff of Flavio 13.4, Plt Count 205, MPV 10.5, Immature Gran % (Auto) 0.400, Neut % (Auto) 68.6, Lymph % (Auto) 17.8 L, Grainger % (Auto) 9.8, Eos % (Auto) 2.6, Baso % (Auto) 0.8, Absolute Neuts (auto) 6.9, Absolute Lymphs (auto) 1.79, Nucleated RBC % 0 11/30/22 08:34: Sodium 138, Potassium 4.8, Chloride 115 H, Carbon Dioxide 17.0 L, Anion Gap 6, BUN 42 H, Creatinine 1.55 H, Estim Creat Clear Calc 39.63, Est GFR (MDRD) Af Amer 55 L, Est GFR (MDRD) Non-Af 46 L, BUN/Creatinine Ratio 27.1 H, Glucose 163 H, Calcium 9.1 11/30/22 08:34: Troponin I High Sens 72 11/30/22 11:20: D-Dimer Quant (PE/DVT) 1.14 H* 11/30/22 11:20: Troponin I High Sens 90 H Radiology Impression Chest X-Ray 11/30/22 09:04 IMPRESSION: Minimal left lower lobe atelectasis similar to prior study and/or scarring. Pacer. No definitive focal infiltrate or significant change since prior study. Electronically Signed: Kavitha Justin MD at 9:28 EDT , Chest CTA 11/30/22 11:41 IMPRESSION: No pulmonary embolism. Minimal interseptal thickening findings suggest mild pulmonary edema. This may be cardiac origin. There is mild cardiac enlargement visualized coronary calcification and pacemaker. Degenerative change of the thoracic spine. Cholelithiasis. Electronically Signed: Kavitha Justin MD at 13:47 EDT , Assessment & Plan Assessment/Plan (1) Weakness: PLAN: Plan 1.? Weakness with slightly elevated troponin and hypertension ? Unclear at this time as to what his main issue is ? We will obtain serial troponins as well as monitoring his blood pressure making any blood pressure medication adjustments necessary ? We will obtain PT and OT evaluation for possible placement 2.? Chronic diastolic CHF/HTN/HLD/paroxysmal A-fib ? Blood pressure currently stable, he did say that he was tachycardic on arrival of the upholstery cutter which appears to have resolved ? Pacemaker in place ? Continue with his home blood pressure medications ? Continue with his statin ? We will can continue with his flecainide as well as his metoprolol given his history of A-fib 3.? DM2 ? Stable, will continue with his Lantus ? Sliding scale with Accu-Cheks ACHS ? We will make adjustments as necessary 4.? BPH ? Stable ? Continue with finasteride 5. Anxiety/depression ? Stable ? Continue with Zoloft DVT: Heparin 75 minutes was spent in documentation as well as direct patient care and chart review Charges/Coding Visit Charges Inpatient E&M: 05398 Init Hosp L3
[2022-11-30] MEDS: Furosemide 20 MG Tablet PO (17:28)
[2022-11-30 17:40] LABS: Bedside Glucose 115 mg/dL (74-106)
[2022-11-30 17:53] LABS: Troponin-I HS 133 pg/mL (3.0-78.0)
[2022-11-30] MEDS: Flecainide 100 MG Tablet PO (20:54)
[2022-11-30] MEDS: Pramipexole Di-HCl 1 MG Tablet 2 MG PO (20:54)
[2022-11-30] MEDS: Atorvastatin Calcium 10 MG Tablet PO (20:54)
[2022-11-30] MEDS: Heparin Injection (Vial) 5,000 UNIT/ML VIAL 5000 UNIT SC (20:54)
[2022-11-30] MEDS: hydrALAZINE 25 MG Tablet PO (20:55)
[2022-11-30 21:50] LABS: Troponin-I HS 136 pg/mL (3.0-78.0)
[2022-12-01 00:40] LABS: Bedside Glucose 123 mg/dL (74-106)
[2022-12-01 03:20] VITALS: BP 139/54; PULSE 70; RESP 18; TEMP 36.4; O2SAT 94
[2022-12-01] MEDS: Heparin Injection (Vial) 5,000 UNIT/ML VIAL 5000 UNIT SC (06:14)
[2022-12-01 06:44] LABS: Absolute Lymphocyte Count 1.07 X10^3/uL (0.83-4.51); Absolute Neutrophil Count 5.8 X10^3/uL (2.0-7.7); Basophil# 0.04 X10^3/uL; Basophil% 0.5 % (0-1); Eosinophil# 0.18 X10^3/uL; Eosinophils% 2.3 % (0-5); Hematocrit 30.7 % (40-54); Hemoglobin 9.7 g/dL (13.0-16.5); Lymphocyte # 1.07 X10^3/ul (0.83-4.51); Lymphocyte % 13.6 % (19-41); Mean Corp Hgb Conc 31.6 g/dL (32-36); Mean Corpuscular Hgb 30.2 pg (27.0-32.0); Mean Corpuscular Volume 95.6 fL (80-94); Monocyte# 0.75 X10^3/uL; Monocyte% 9.6 % (0-10); NRBC Flagged by Analyzer 0 % (0-5); Neutrophil # 5.75 X10^3/uL (2.7-7.7); Neutrophil % 73.4 % (47-70); Platelet Count 189 K/mm3 (150-450); RBC Distribution Width CV 13.3 % (11.6-14.6); RBC Distribution Width SD 46.8 fl (35.1-43.9); Red Blood Count 3.21 M/mm3 (4.6-6.2); White Blood Count 7.8 K/mm3 (4.4-11.0)
[2022-12-01 07:01] LABS: Bedside Glucose 120 mg/dL (74-106)
[2022-12-01 07:02] LABS: Anion Gap 4 (5-15); BUN 32 mg/dL (7-18); BUN/Creat Ratio 24.1 RATIO (10-20); Calcium,Total 8.6 mg/dL (8.5-10.1); Chloride 114 mmol/L (98-107); Creatinine, Serum 1.33 mg/dL (0.70-1.30); EST Glomerular Filtration Rate 55 mL/min (>60); Est Glom Filt Rate - Afr Amer 66 mL/min (>60); Estimated Creatinine Clearance 46.19 ml/min; Glucose 118 mg/dL (74-106); Potassium 4.2 mmol/L (3.5-5.1); Sodium Level 138 mmol/L (136-145)
[2022-12-01 08:02] VITALS: PULSE 71
[2022-12-01] MEDS: hydrALAZINE 25 MG Tablet PO (08:02)
[2022-12-01] MEDS: Insulin Glargine-YFGN 100 UNIT/ML Pen 30 UNIT SC (08:03)
[2022-12-01] MEDS: Furosemide 20 MG Tablet PO (08:04)
[2022-12-01] MEDS: amLODIPine 5 MG Tablet PO (08:04)
[2022-12-01] MEDS: Famotidine 20 MG Tablet PO (08:04)
[2022-12-01 08:05] VITALS: PULSE 71
[2022-12-01] MEDS: Flecainide 100 MG Tablet PO (08:05)
[2022-12-01] MEDS: Finasteride 5 MG Tablet PO (08:05)
[2022-12-01] MEDS: Metoprolol(XL)Succ 25 MG Tablet 12.5 MG PO (08:05)
[2022-12-01] MEDS: Sertraline 50 MG Tablet 25 MG PO (08:06)
[2022-12-01 08:10] VITALS: BP 132/53; PULSE 71; RESP 16; TEMP 36.7; O2SAT 97
--- NOTE | 2022-12-01 11:33 | PCM.DC ---
Discharge Instructions Diet Discharge Diet: Low fat / Low cholesterol and Carb Control Diet Activity Discharge Activity: Return to Normal Activity Dressing / Incision Call your doctor if you observe: Fever of 101 or Higher, Shortness of breath, Dizziness, Fainting spells, Swelling in the ankles, Chest pain and Increased palpitations (irregular heartbeat) Follow Up Care Test Results: Test results from this visit will be discussed in further detail at your follow-up appointment, if applicable. Discharge Plan Admission Admit Date/Time: 11/30/22 14:34 Attending Provider: Franco Rausch Primary Care Provider: Tosha Shrestha Discharge Orders/Prescriptions Prescriptions: Continued dulaglutide 4.5 mg/0.5 mL pen injector 4.5 mg SC .COMPLEX Qty: 2 2RF Rx Instructions: 4.5 mg subcut every friday meclizine 25 mg tablet 25 mg PO TID PRN (Reason: dizziness) Qty: 90 0RF hydralazine 25 mg tablet 25 mg PO BID Label Comments: take 1 tablet by mouth twice a day furosemide 20 mg tablet 20 mg PO BID Label Comments: take 1 tablet by mouth once daily acetaminophen 500 mg Tablet 1,000 mg PO Q6H PRN (Reason: Pain) hydralazine 50 mg tablet 50 mg PO BID progesterone micronized 100 mg capsule 100 mg PO QAM insulin glargine 100 unit/mL (3 mL) insulin pen 30 unit subcut QAM finasteride 5 mg tablet 5 mg PO DAILY Qty: 90 3RF amlodipine 5 mg tablet 5 mg PO DAILY Qty: 90 0RF atorvastatin 10 mg tablet 10 mg PO DAILY Qty: 90 1RF ergocalciferol (vitamin D2) 1,250 mcg (50,000 unit) capsule 50,000 unit PO QMONTH Qty: 14 1RF famotidine 20 mg tablet 20 mg PO DAILY Qty: 90 3RF ferrous sulfate 325 mg (65 mg iron) tablet 325 mg PO TH Qty: 90 1RF Rx Instructions: only flecainide 100 mg tablet 100 mg PO Q12H Qty: 180 2RF Hold Instructions: bradycardia 07/09 metoprolol succinate 25 mg tablet extended release 24 hr 12.5 mg PO DAILY Qty: 90 1RF pramipexole [Mirapex] 1 mg tablet 2 mg PO QHS Qty: 180 3RF sertraline 25 mg tablet 25 mg PO DAILY Qty: 90 1RF Referrals / Follow Up: Tosha Shrestha MD [Primary Care Provider] - Within 1 Week Ronnie Dyer NP, KILN OPERATOR HELPER-C [Med Staff - [facility] Practice Prof] - Within 1 Month Disposition Disposition (needs filled in before D/C Order can be placed): Home, Self Care
[2022-12-01 11:35] LABS: Bedside Glucose 146 mg/dL (74-106)
--- NOTE | 2022-12-01 11:45 | PCM.DC.SUM ---
Providers Date of Admission: 11/30/22 Primary Care Physician: Dr. Tosha Shrestha MD Reason For Visit: WEAKNESS, JAW PAIN Diagnosis Discharge Diagnosis (1) Weakness: Status: Acute Code(s): R53.1 - Weakness Medications at Discharge Home Medications finasteride 5 mg tablet 5 mg PO DAILY PROSTATE #90 tabs 11/03/18 acetaminophen 500 mg tablet 1,000 mg PO Q6H PRN Pain 10/06/22 hydralazine 50 mg tablet 50 mg PO BID BP 10/06/22 insulin glargine 100 unit/mL (3 mL) subcutaneous pen 30 unit subcut QAM DM 10/06/22 progesterone micronized 100 mg capsule 100 mg PO QAM HORMONE 10/06/22 dulaglutide 4.5 mg/0.5 mL subcutaneous pen injector 4.5 mg (0.5 mL) subcut .COMPLEX DM #2 mL 10/24/22 meclizine 25 mg tablet 25 mg PO TID PRN dizziness #90 tabs 10/24/22 furosemide 20 mg tablet 20 mg PO BID diuretic 11/26/22 hydralazine 25 mg tablet 25 mg PO BID 11/26/22 amlodipine 5 mg tablet 5 mg PO DAILY BP #90 tabs 11/29/22 atorvastatin 10 mg tablet 10 mg PO DAILY #90 tabs 11/29/22 ergocalciferol (vitamin D2) 1,250 mcg (50,000 unit) capsule 50,000 unit PO QMONTH SUPPLEMENT #14 caps 11/29/22 famotidine 20 mg tablet 20 mg PO DAILY #90 tabs 11/29/22 ferrous sulfate 325 mg (65 mg iron) tablet 325 mg PO TH supplement #90 tabs 11/29/22 flecainide 100 mg tablet 100 mg PO Q12H HEART RATE #180 tabs 11/29/22 metoprolol succinate 25 mg tablet,extended release 24 hr 12.5 mg PO DAILY BP #90 tabs 11/29/22 pramipexole 1 mg tablet (Mirapex) 2 mg PO QHS RLS #180 tabs 11/29/22 sertraline 25 mg tablet 25 mg PO DAILY DEPRESSION #90 tabs 11/29/22 Hospital Course Operations None Procedures None Summary of Care Provided Minutes Spent on Discharge: 33 Hospital Course: Per HPI: MARY SAN, is a 82 M who presents to the hospital with a series of vague concerns, first and foremost he felt weak this morning when he tried to get up he normally walks with a rollator but just recently and was discharged about a week ago from the assisted after his most recent hospitalization.? He also noticed this morning that his blood pressure was high into the 160s even after he had taken his morning medications and he states that he is very compliant.? And then he also acknowledged some left jaw pain in the absence of chest pain or shortness of breath, that lasted for a few minutes and then resolved.? In the ER his blood pressure is found to be elevated at 153 systolic but his vital signs are otherwise stable.? Lab work demonstrates a baseline renal function and his troponin is slightly elevated to 90, his initial troponin today was 72. Hospital Course: 1.? Weakness with slightly elevated troponin and hypertension ? Unclear at this time as to what his main issue is ?Serial troponins were only mildly elevated consistent with a type II event ? He had a cardiac cath less than 2 months ago that showed nonobstructive coronary artery disease and that we would proceed with just medical management. It appears that he likely was tachycardic for an unknown reason which stressed his heart. He is on flecainide and metoprolol and he does have a history of a pacemaker being placed about 2 months ago. ? We will obtain PT and OT evaluation for possible placement ? I discussed with him the possibility for discharge as physical therapy did not feel that he had any skilled needs at this time, and he expressed understanding of the risk benefits going home and wanted to go home today. Given how recent his extensive cardiac work-up had been including the placement of the pacemaker no further work-up would be indicated at this time, his symptoms have completely resolved. I do recommend that he follow-up with his PCP as well as cardiology for any medication adjustments including increasing his metoprolol as they would deem necessary. 2.? Chronic diastolic CHF/HTN/HLD/paroxysmal A-fib ? Blood pressure currently stable, he did say that he was tachycardic on arrival of the tractor distributor which appears to have resolved ? Pacemaker in place ? Continue with his home blood pressure medications ? Continue with his statin ? We will can continue with his flecainide as well as his metoprolol given his history of A-fib 3.? DM2 ? Stable, will continue with his Lantus ? Sliding scale with Accu-Cheks ACHS ? We will make adjustments as necessary 4.? BPH ? Stable ? Continue with finasteride 5. Anxiety/depression ? Stable ? Continue with Zoloft Physical Exam Narrative General: Alert, Oriented x3, Cooperative, No apparent distress HEENT: Atraumatic, PERRLA, EOMI, Normocephalic, hard of hearing Oral: Moist Mucosa Neck: Supple, No JVD Lungs: Diminished, Normal air movement, No rhonchi, No wheeze, No rales Cardiovascular: Regular rate, Regular Rhythm, Normal S1, Normal S2, No murmurs Abdomen: Soft, Non Tender, Non-Distended, No Hepato-splenomegaly Extremities: Edema, Capillary Refill Less than 3 Seconds Skin: No rashes, No breakdown Musculoskeletal: No Tenderness to Palpation of Joints or Extremities Neurological: Cranial nerves II-XII grossly intact, Motor Exam 5/5 strength throughout, Sensory exam intact to light touch and pain Psych/Mental Status: Normal Affect, Appropriate Weight / BMI Weight Weight: 279 lb 15.793 oz Body Mass Index (BMI) 38.0 ABG / Lab / Microbiology Data Result Diagrams: 12/01/22 06:10 12/01/22 06:10 Laboratory: Laboratory Results - last 24 hr 11/30/22 11:20: Troponin I High Sens 90 H 11/30/22 16:18: POC Glucose 115 H 11/30/22 17:00: Troponin I High Sens 133 H* 11/30/22 21:15: Troponin I High Sens 136 H* 11/30/22 22:49: POC Glucose 123 H 12/01/22 06:10: WBC 7.8, RBC 3.21 L, Hgb 9.7 L, Hct 30.7 L, MCV 95.6 H, MCH 30.2, MCHC 31.6 L, RDW Std Deviation 46.8 H, RDW Coeff of Flavio 13.3, Plt Count 189, MPV 10.0, Immature Gran % (Auto) 0.600, Neut % (Auto) 73.4 H, Lymph % (Auto) 13.6 L, Dawes % (Auto) 9.6, Eos % (Auto) 2.3, Baso % (Auto) 0.5, Absolute Neuts (auto) 5.8, Absolute Lymphs (auto) 1.07, Nucleated RBC % 0 12/01/22 06:10: Sodium 138, Potassium 4.2, Chloride 114 H, Carbon Dioxide 20.0 L, Anion Gap 4 L, BUN 32 H, Creatinine 1.33 H, Estim Creat Clear Calc 46.19, Est GFR (MDRD) Af Amer 66, Est GFR (MDRD) Non-Af 55 L, BUN/Creatinine Ratio 24.1 H, Glucose 118 H, Calcium 8.6 12/01/22 06:12: POC Glucose 120 H 12/01/22 11:06: POC Glucose 146 H Radiography Diagnostic Testing: Radiology Impression Chest CTA 11/30/22 11:41 IMPRESSION: No pulmonary embolism. Minimal interseptal thickening findings suggest mild pulmonary edema. This may be cardiac origin. There is mild cardiac enlargement visualized coronary calcification and pacemaker. Degenerative change of the thoracic spine. Cholelithiasis. Electronically Signed: Kavitha Justin MD at 13:47 EDT Reading Location ID and State: [facility] / [place] Tel , Service support , D/C Instructions Discharge Diet: Low fat / Low cholesterol and Carb Control Diet Call your doctor if you observe: Fever of 101 or Higher, Shortness of breath, Dizziness, Fainting spells, Swelling in the ankles, Chest pain and Increased palpitations (irregular heartbeat) Meaningful Use Info Meaningful Use Diagnoses (Choose all that apply): None applicable Discharge Plan Admission Admit Date/Time: 11/30/22 14:34 Attending Provider: Franco Rausch Primary Care Provider: Tosha Shrestha Discharge Orders/Prescriptions Prescriptions: Continued dulaglutide 4.5 mg/0.5 mL pen injector 4.5 mg SC .COMPLEX Qty: 2 2RF Rx Instructions: 4.5 mg subcut every friday meclizine 25 mg tablet 25 mg PO TID PRN (Reason: dizziness) Qty: 90 0RF hydralazine 25 mg tablet 25 mg PO BID Label Comments: take 1 tablet by mouth twice a day furosemide 20 mg tablet 20 mg PO BID Label Comments: take 1 tablet by mouth once daily acetaminophen 500 mg Tablet 1,000 mg PO Q6H PRN (Reason: Pain) hydralazine 50 mg tablet 50 mg PO BID progesterone micronized 100 mg capsule 100 mg PO QAM insulin glargine 100 unit/mL (3 mL) insulin pen 30 unit subcut QAM finasteride 5 mg tablet 5 mg PO DAILY Qty: 90 3RF amlodipine 5 mg tablet 5 mg PO DAILY Qty: 90 0RF atorvastatin 10 mg tablet 10 mg PO DAILY Qty: 90 1RF ergocalciferol (vitamin D2) 1,250 mcg (50,000 unit) capsule 50,000 unit PO QMONTH Qty: 14 1RF famotidine 20 mg tablet 20 mg PO DAILY Qty: 90 3RF ferrous sulfate 325 mg (65 mg iron) tablet 325 mg PO TH Qty: 90 1RF Rx Instructions: only flecainide 100 mg tablet 100 mg PO Q12H Qty: 180 2RF Hold Instructions: bradycardia 07/09 metoprolol succinate 25 mg tablet extended release 24 hr 12.5 mg PO DAILY Qty: 90 1RF pramipexole [Mirapex] 1 mg tablet 2 mg PO QHS Qty: 180 3RF sertraline 25 mg tablet 25 mg PO DAILY Qty: 90 1RF Referrals / Follow Up: Tosha Shrestha MD [Primary Care Provider] - Within 1 Week Ronnie Dyer NP, SCREEN PRINTING SUPERVISOR-C [Med Staff - [facility] Practice Prof] - Within 1 Month Disposition Disposition (needs filled in before D/C Order can be placed): Home, Self Care Charges/Coding Visit Charges Inpatient E&M: 68465 Disch Hosp >30min
== END 2022-12-01 11:37 | disposition home or self-care (01) ==
LOC: ED 14:43 → PCU 15:11
PROVIDERS: Admitting Provider Family Medicine; Emergency Provider Emergency Medicine; PCP Internal Medicine; Visit Provider Family Medicine
DX: R53.1 Weakness (principal); I50.32 Chronic diastolic (congestive) heart failure; I13.0 Hypertensive heart and chronic kidney disease with heart failure and stage 1 through stage 4 chronic kidney disease, or unspecified chronic kidney disease; E11.22 Type 2 diabetes mellitus with diabetic chronic kidney disease; E11.42 Type 2 diabetes mellitus with diabetic polyneuropathy; E11.40 Type 2 diabetes mellitus with diabetic neuropathy, unspecified; I48.0 Paroxysmal atrial fibrillation; Z79.4 Long term (current) use of insulin; N18.30 Chronic kidney disease, stage 3 unspecified; I25.10 Atherosclerotic heart disease of native coronary artery without angina pectoris; R07.9 Chest pain, unspecified; Z95.0 Presence of cardiac pacemaker; E78.5 Hyperlipidemia, unspecified; F41.9 Anxiety disorder, unspecified; N40.0 Benign prostatic hyperplasia without lower urinary tract symptoms; F32.A Depression, unspecified; Z79.899 Other long term (current) drug therapy; D63.1 Anemia in chronic kidney disease; K21.9 Gastro-esophageal reflux disease without esophagitis; Z86.718 Personal history of other venous thrombosis and embolism
CPT/HCPCS: 36415; 71045; 71275; 80048; 82962; 84484; 85025; 85379; 93005; 96360; 96372; 97161; 97165; 99221; 99285; J7030; Q9967; A4216; G0378

== ENCOUNTER 2022-12-02 08:10 | Observation (INO) | payer MEDICARE, BC, SELFPAY ==
[2022-12-02] VITALS (7 sets, daily range): BP systolic 102–157; BP diastolic 59–72; PULSE 50–116; RESP 16–21; TEMP 36.1–36.8; O2SAT 93–97; BMI 39.0; BMI 37.9
--- NOTE | 2022-12-02 08:22 | EKG12_ITS ---
Test Reason : GENERAL Blood Pressure : / mmHG Vent. Rate : 117 BPM Atrial Rate : 072 BPM P-R Int : 000 ms QRS Dur : 188 ms QT Int : 446 ms P-R-T Axes : 000 -74 094 degrees QTc Int : 622 ms Ventricular-paced rhythm Abnormal ECG Confirmed by KADY HERNANDEZ ([id number]), editor in chief newspaper LILIA BATRES ([id number]) on 12/04/2022 1:15:52 PM Referred By: Confirmed By:KADY HERNANDEZ
--- NOTE | 2022-12-02 08:22 | EX.ED.DYSGE1 ---
HPI History of Present Illness Chief Complaint: General Illness Narrative Narrative: 82-year-old male past medical history of sick sinus syndrome, states he got a pacemaker 7 weeks ago [address] Rogers, presents with palpitations and shortness of breath. He states that he was seen in the emergency department on Friday, 3 days ago, and released yesterday. He is unsure what type of pacemaker/brand that he has, but has noticed heart palpitations and a fast heart rate which accompany shortness of breath. He does not really have chest pain. He states he feels the same way that he did when he was admitted to the hospital on Friday. No exacerbating or alleviating factors. [facility] Medical History (HFpEF) heart failure with preserved ejection fraction (12/12/20) Acute respiratory failure with hypoxia Anemia Anemia of chronic renal failure, stage 3 (moderate) Anxiety and depression Atherosclerotic heart disease of [place] coronary artery without angina pectoris Atrial flutter Atypical chest pain Back pain BMI 34.0-34.9,adult BPH (benign prostatic hyperplasia) BPPV (benign paroxysmal positional vertigo) Bradycardia Cardiac dysrhythmia Cardiology follow-up encounter CHF (congestive heart failure) CHF (congestive heart failure) De Quervain's tenosynovitis Debility Depression Dermatitis Diabetes mellitus Diabetic kidney disease Dizziness DM type 2 with diabetic peripheral neuropathy DVT (deep venous thrombosis) Dyslipidemia Dysphagia Essential (primary) hypertension Fall Flu vaccine need Fracture of great toe Gastric reflux Gout Gout flare Health care maintenance History of echocardiogram History of edema History of GI bleed History of peptic ulcer History of renal calculi History of ulceration HLD (hyperlipidemia) Injury of head and neck Iron deficiency anemia Iron deficiency anemia due to chronic blood loss Kidney hematoma (12/08/20) Left knee pain Left leg DVT Loss of equilibrium Low iron Malaise Near syncope Orthostatic hypotension MACHELLE (obstructive sleep apnea) Pain of left lower extremity Paroxysmal atrial fibrillation Paroxysmal atrial flutter Pneumonia Polypharmacy 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 Presence of cardiac pacemaker Prostate disease Psoriasis Recurrent syncope (06/19/22) Renal calculi RLS (restless legs syndrome) Sex disorder Sick sinus syndrome Suicidal ideation SVT (supraventricular tachycardia) TIA (transient ischemic attack) Type 2 diabetes mellitus with diabetic polyneuropathy Urolithiasis Venous insufficiency of both lower extremities Vertigo Walker as ambulation aid Wears glasses Home Medications finasteride 5 mg tablet 5 mg PO DAILY PROSTATE #90 tabs 11/03/18 [Rx Last Taken 11/30/22] acetaminophen 500 mg tablet 1,000 mg PO Q6H PRN Pain 10/06/22 [History Last Taken 11/29/22] hydralazine 50 mg tablet 50 mg PO BID BP 10/06/22 [History Last Taken 11/30/22] insulin glargine 100 unit/mL (3 mL) subcutaneous pen 30 unit subcut QAM DM 10/06/22 [History Last Taken 11/29/22] progesterone micronized 100 mg capsule 100 mg PO QAM HORMONE 10/06/22 [History Last Taken 11/30/22] dulaglutide 4.5 mg/0.5 mL subcutaneous pen injector 4.5 mg (0.5 mL) subcut .COMPLEX DM #2 mL 10/24/22 [Rx Last Taken 11/29/22] meclizine 25 mg tablet 25 mg PO TID PRN dizziness #90 tabs 10/24/22 [Rx Last Taken 11/29/22] furosemide 20 mg tablet 20 mg PO BID diuretic 11/26/22 [History Last Taken 11/30/22] hydralazine 25 mg tablet 25 mg PO BID 11/26/22 [History Last Taken 11/30/22] amlodipine 5 mg tablet 5 mg PO DAILY BP #90 tabs 11/29/22 [Rx Last Taken 11/30/22] atorvastatin 10 mg tablet 10 mg PO DAILY #90 tabs 11/29/22 [Rx Last Taken 11/29/22] ergocalciferol (vitamin D2) 1,250 mcg (50,000 unit) capsule 50,000 unit PO QMONTH SUPPLEMENT #14 caps 11/29/22 [Rx Last Taken 11/16/22] famotidine 20 mg tablet 20 mg PO DAILY #90 tabs 11/29/22 [Rx Last Taken 11/30/22] ferrous sulfate 325 mg (65 mg iron) tablet 325 mg PO TH supplement #90 tabs 11/29/22 [Rx Last Taken 11/28/22] flecainide 100 mg tablet 100 mg PO Q12H HEART RATE #180 tabs 11/29/22 [Rx Last Taken 11/30/22] metoprolol succinate 25 mg tablet,extended release 24 hr 12.5 mg PO DAILY BP #90 tabs 11/29/22 [Rx Last Taken 11/30/22] pramipexole 1 mg tablet (Mirapex) 2 mg PO QHS RLS #180 tabs 11/29/22 [Rx Last Taken 11/29/22] sertraline 25 mg tablet 25 mg PO DAILY DEPRESSION #90 tabs 11/29/22 [Rx Last Taken 11/30/22] Allergy/AdvReac Type Severity Reaction Status Date / Time hydrocodone bitartrate AdvReac Severe Other Verified 11/27/22 12:50 [From Vicodin] hydroxyzine AdvReac Severe Other Verified 11/27/22 12:50 Family History Father Diabetes Hypertension Cancer Lung cancer Mother Hypertension CVA (cerebral vascular accident) Sister Diabetes Son Diabetes Surgical History History of cardioversion (2015) History of cataract surgery History of left heart catheterization (02/16/13) History of lithotripsy (11/2020) History of loop recorder (06/26/22) History of radiofrequency ablation procedure for cardiac arrhythmia (02/05/06) history of right knee cap fracture History of right knee surgery Status post laser lithotripsy of ureteral calculus Status post left foot surgery STENT PLACEMENT FOR KIDNEY STONE Social History household members: spouse housing: house Smoking Status: Never smoker how long ago did patient quit smokin second hand exposure: No alcohol intake: never substance use type: does not use caffeine: No what type of physical activity do you participate in: none seatbelt use: always do you feel safe at home: Yes ROS ROS ED ROS Narrative Constitutional: No fever, no chills. HEENT: No sore throat. No neck pain. No loss of vision. No rhinorrhea. Cardiovascular: No chest pain. Positive palpitations. No new pedal edema. Respiratory: No cough, positive shortness of breath. Abdominal: No abdominal pain. No nausea. No vomiting. Genitourinary: No dysuria. No hematuria. Musculoskeletal: No myalgias. No arthralgias. Neurologic: No headaches. No dizziness. No lightheadedness. Skin: No rash. No change in color. Psychiatric: No depression. No anxiety. EXAM Physical Exam Narrative Exam Narrative: Afebrile. Vital signs noted. HEENT: Normocephalic. Atraumatic. PERRL, EOMI. Neck soft and supple. No point tenderness or step off. Cardiovascular: Positive tachycardia in the 116 bpm, no murmurs, rubs, or gallops appreciated. Respiratory: No tachypnea. Lungs clear to auscultation bilaterally. Gastrointestinal: Abdomen soft, nontender, with normoactive bowel sounds. No rebound or guarding. Neurological: Awake. Alert. Nonfocal, nonlateralizing. Skin: No rash. Normal color. No pallor. Musculoskeletal: Trace bilateral pedal edema. Full range of motion extremities. Const Vital Signs: 12/02/22 08:14 12/02/22 08:14 12/02/22 08:20 Temperature 97.0 F L 97.0 F L Temperature Source Temporal Temporal Pulse Rate 116 H 116 H Respiratory Rate 21 H 18 Respiratory Effort Normal Non-Labored Respiratory Pattern Normal Blood Pressure 105/66 102/65 Blood Pressure Mean 79 77 Pulse Ox 96 94 Oxygen Delivery Method Room Air Room Air 12/02/22 08:22 Temperature Temperature Source Pulse Rate Respiratory Rate Respiratory Effort Respiratory Pattern Blood Pressure Blood Pressure Mean Pulse Ox Oxygen Delivery Method Room Air MDM MDM MDM Narrative Medical decision making narrative: Concern is for pacemaker malfunction. I reviewed his prehospital EKG which showed a paced rhythm. I reviewed his prior ED report/dictation and his discharge instructions from his inpatient stay. He was just discharged yesterday. I reviewed his operative work and he has a WBC count normal at 7.2, hemoglobin stable at 10.5, hematocrit 31.8, platelet count normal at 182. In review of his electrolyte panel, he has a normal sodium of 136, potassium 4.3, CO2 low at 19 consistent with hyperventilation from his probable shortness of breath complaint. Although his glucose is elevated at 210, he has a normal anion gap/low at 4. His high-sensitivity troponin is 44, down from previous. BUN of 45 with creatinine of 1175, around his baseline for chronic kidney injury. BNP is elevated at 1061.5, however clinically, and interpretation of his chest x-ray by myself, there is no consolidation or florid CHF. I reviewed the radiology report which confirms my independent interpretation. At this point in time, he is not hypoxic. He was tachycardic even when he was discharged. I did review his pacemaker interrogation which shows that over the last day he was reaching the threshold of his atrial tachycardia, and in review he has history of paroxysmal atrial flutter. Initially, I discussed the patient with Dr. Scott, the hospitalist. There would be no reason to readmit the patient or place him on observation as clinically he is not in CHF, but being treated with a diuretic regardless, and he is on rate control medications of flecainide and metoprolol. In discussion with the patient, he is now willing to be discharged to a rehabilitation/halfway facility such as [facility] where he is requesting. I will rediscuss the patient with Dr. Scott to place him on observation as there is no available [employer] school social [employer] teacher in the emergency department here today. Disposition is observed in stable condition. History & Record Review Discussion w/independent historian: Patient and Family Additional record(s) reviewed:: Prior inpatient record, Prior ED visit and Prior labs Lab Data Attestation: I reviewed the patient's lab results. Labs: Laboratory Results - last 24 hr 12/02/22 12/02/22 12/02/22 08:02 08:02 08:02 WBC 7.2 RBC 3.36 L Hgb 10.5 L Hct 31.8 L MCV 94.6 H MCH 31.3 MCHC 33.0 RDW Std Deviation 46.2 H RDW Coeff of Flavio 13.3 Plt Count 182 MPV 10.1 Immature Gran % (Auto) 0.600 Neut % (Auto) 65.9 Lymph % (Auto) 20.0 Swain % (Auto) 9.1 Eos % (Auto) 3.6 Baso % (Auto) 0.8 Absolute Neuts (auto) 4.7 Absolute Lymphs (auto) 1.43 Nucleated RBC % 0 Sodium 136 Potassium 4.3 Chloride 113 H Carbon Dioxide 19.0 L Anion Gap 4 L BUN 45 H Creatinine 1.75 H Estim Creat Clear Calc 35.10 Est GFR (MDRD) Af Amer 48 L Est GFR (MDRD) Non-Af 40 L BUN/Creatinine Ratio 25.7 H Glucose 210 H Calcium 8.9 Troponin I High Sens 44 B-Natriuretic Peptide 1061.5 H Radiography Diagnostic Testing: Clinical Impression(s) from Imaging Studies Chest X-Ray 12/02/22 08:31 IMPRESSION: Borderline cardiomegaly. Stable mild increased linear markings at the lung bases slightly more prominent at the left lung base suggestive of atelectasis. Electronically Signed: Leo Fay MD at 8:48 EDT , Discharge Plan Dx/Rx/DC Orders Clinical Impression: Paroxysmal atrial flutter, Presence of cardiac pacemaker, CHF (congestive heart failure), SOB (shortness of breath), Generalized weakness, Tachycardia Disposition Disposition: Acute Care Hospital [facility] [place] [facility]
--- NOTE | 2022-12-02 08:31 | RAD_ITS ---
STUDY: X-RAY CHEST REASON FOR EXAM: Male, 82 years old. Chest pain TECHNIQUE: Single AP portable view of the chest. COMPARISON: Comparison is made with prior study dated November 30, 2022. FINDINGS: EKG electrodes are seen. Stable mild increased markings at the lung bases slightly more prominent on the left side. This may represent atelectasis. There is no demonstrated pleural abnormality. There is borderline cardiomegaly. A left-sided dual-chamber pacemaker is seen. Normal mediastinum and lakhwinder. Normal visualized pulmonary arteries. There is atherosclerotic calcification of the aortic arch with tortuosity. There are diffuse degenerative changes of the visualized thoracic spine. Normal visualized ribs, clavicles, and shoulders. There is no demonstrated abnormality of the visualized soft tissue structures of the upper abdomen. RAD/Chest 1 View (Portable) IMPRESSION: Borderline cardiomegaly. Stable mild increased linear markings at the lung bases slightly more prominent at the left lung base suggestive of atelectasis. Electronically Signed: Leo Fay MD at 8:48 EDT ,
[2022-12-02 08:35] LABS: Absolute Lymphocyte Count 1.43 X10^3/uL (0.83-4.51); Absolute Neutrophil Count 4.7 X10^3/uL (2.0-7.7); Basophil# 0.06 X10^3/uL; Basophil% 0.8 % (0-1); Eosinophil# 0.26 X10^3/uL; Eosinophils% 3.6 % (0-5); Hematocrit 31.8 % (40-54); Hemoglobin 10.5 g/dL (13.0-16.5); Lymphocyte # 1.43 X10^3/ul (0.83-4.51); Mean Corpuscular Hgb 31.3 pg (27.0-32.0); Mean Corpuscular Volume 94.6 fL (80-94); Mean Platelet Vol. 10.1 fl (6.2-12.0); Monocyte# 0.65 X10^3/uL; Monocyte% 9.1 % (0-10); NRBC Flagged by Analyzer 0 % (0-5); Neutrophil # 4.72 X10^3/uL (2.7-7.7); Neutrophil % 65.9 % (47-70); Platelet Count 182 K/mm3 (150-450); RBC Distribution Width CV 13.3 % (11.6-14.6); RBC Distribution Width SD 46.2 fl (35.1-43.9); Red Blood Count 3.36 M/mm3 (4.6-6.2); White Blood Count 7.2 K/mm3 (4.4-11.0)
[2022-12-02 08:52] LABS: Anion Gap 4 (5-15); BUN 45 mg/dL (7-18); BUN/Creat Ratio 25.7 RATIO (10-20); Calcium,Total 8.9 mg/dL (8.5-10.1); Chloride 113 mmol/L (98-107); Creatinine, Serum 1.75 mg/dL (0.70-1.30); EST Glomerular Filtration Rate 40 mL/min (>60); Est Glom Filt Rate - Afr Amer 48 mL/min (>60); Glucose 210 mg/dL (74-106); Potassium 4.3 mmol/L (3.5-5.1); Sodium Level 136 mmol/L (136-145); Troponin-I HS 44 pg/mL (3.0-78.0)
[2022-12-02 09:06] LABS: BNP,B-Type NATRIURETIC PEPTIDE 1061.5 pg/mL (0-100)
--- NOTE | 2022-12-02 10:52 | NURSING ---
DR LU FOR DR TAYLOR
--- NOTE | 2022-12-02 11:23 | HP.PCM.HOS_ITS ---
HPI - General General Date of Admission: 12/02/22 Date of Service: 12/02/22 Chief Complaint: Shortness of breath generalized weakness HPI Narrative MARY SAN, is a 82 M who was just discharged on 12/01 2 days ago was brought to ED by EMS Generalized weakness and shortness of breath. As per the EMS report, patient also complained of racing heartbeat but to me he declined. Twelve-lead EKG was done which shows ventricular paced rhythm at 130 bpm. EMS vitals showed heart rate 70, BP 130/72. Patient is very hard of hearing and nondescriptive but he denied chest pain pressure or tightness. He denies palpitation/pounding sensation but he stated he has mild short of breath above his baseline. Patient is also physically deconditioned with increased leg swelling gain of 10 pounds in the last 1 to 2 months. Chest x-ray mutilative reviewed and does not show acute changes compared to previous x-ray during admission. Patient had cardiac cath less than 2 months ago which showed nonobstructive coronary artery disease. In ED, twelve-lead EKG was done which shows paced rhythm 117 beats.. Patient also had pacemaker interrogation done which was inserted for sick sinus syndrome in the past. [facility] Medical History (HFpEF) heart failure with preserved ejection fraction (12/12/20) Acute respiratory failure with hypoxia Anemia Anemia of chronic renal failure, stage 3 (moderate) Anxiety and depression Atherosclerotic heart disease of [place] coronary artery without angina pectoris Atrial flutter Atypical chest pain Back pain BMI 34.0-34.9,adult BPH (benign prostatic hyperplasia) BPPV (benign paroxysmal positional vertigo) Bradycardia Cardiac dysrhythmia Cardiology follow-up encounter CHF (congestive heart failure) CHF (congestive heart failure) De Quervain's tenosynovitis Debility Depression Dermatitis Diabetes mellitus Diabetic kidney disease Dizziness DM type 2 with diabetic peripheral neuropathy DVT (deep venous thrombosis) Dyslipidemia Dysphagia Essential (primary) hypertension Fall Flu vaccine need Fracture of great toe Gastric reflux Gout Gout flare Health care maintenance History of echocardiogram History of edema History of GI bleed History of peptic ulcer History of renal calculi History of ulceration HLD (hyperlipidemia) Injury of head and neck Iron deficiency anemia Iron deficiency anemia due to chronic blood loss Kidney hematoma (04/23/21) Left knee pain Left leg DVT Loss of equilibrium Low iron Malaise Near syncope Orthostatic hypotension MACHELLE (obstructive sleep apnea) Pain of left lower extremity Paroxysmal atrial fibrillation Paroxysmal atrial flutter Pneumonia Polypharmacy 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 Presence of cardiac pacemaker Prostate disease Psoriasis Recurrent syncope (06/19/22) Renal calculi RLS (restless legs syndrome) Sex disorder Sick sinus syndrome Suicidal ideation SVT (supraventricular tachycardia) TIA (transient ischemic attack) Type 2 diabetes mellitus with diabetic polyneuropathy Urolithiasis Venous insufficiency of both lower extremities Vertigo Walker as ambulation aid Wears glasses Home Medications finasteride 5 mg tablet 5 mg PO DAILY PROSTATE #90 tabs 11/03/18 [Rx Last Taken 11/30/22] acetaminophen 500 mg tablet 1,000 mg PO Q6H PRN Pain 10/06/22 [History Last Taken 11/29/22] hydralazine 50 mg tablet 50 mg PO BID BP 10/06/22 [History Last Taken 11/30/22] insulin glargine 100 unit/mL (3 mL) subcutaneous pen 30 unit subcut QAM DM 10/06/22 [History Last Taken 11/29/22] progesterone micronized 100 mg capsule 100 mg PO QAM HORMONE 10/06/22 [History Last Taken 11/30/22] dulaglutide 4.5 mg/0.5 mL subcutaneous pen injector 4.5 mg (0.5 mL) subcut .COMPLEX DM #2 mL 10/24/22 [Rx Last Taken 11/29/22] meclizine 25 mg tablet 25 mg PO TID PRN dizziness #90 tabs 10/24/22 [Rx Last Taken 11/29/22] furosemide 20 mg tablet 20 mg PO BID diuretic 11/26/22 [History Last Taken 11/30/22] hydralazine 25 mg tablet 25 mg PO BID 11/26/22 [History Last Taken 11/30/22] amlodipine 5 mg tablet 5 mg PO DAILY BP #90 tabs 11/29/22 [Rx Last Taken 11/30/22] atorvastatin 10 mg tablet 10 mg PO DAILY #90 tabs 11/29/22 [Rx Last Taken 11/29/22] ergocalciferol (vitamin D2) 1,250 mcg (50,000 unit) capsule 50,000 unit PO QMONTH SUPPLEMENT #14 caps 11/29/22 [Rx Last Taken 11/16/22] famotidine 20 mg tablet 20 mg PO DAILY #90 tabs 11/29/22 [Rx Last Taken 11/30/22] ferrous sulfate 325 mg (65 mg iron) tablet 325 mg PO TH supplement #90 tabs 11/29/22 [Rx Last Taken 11/28/22] flecainide 100 mg tablet 100 mg PO Q12H HEART RATE #180 tabs 11/29/22 [Rx Last Taken 11/30/22] metoprolol succinate 25 mg tablet,extended release 24 hr 12.5 mg PO DAILY BP #90 tabs 11/29/22 [Rx Last Taken 11/30/22] pramipexole 1 mg tablet (Mirapex) 2 mg PO QHS RLS #180 tabs 11/29/22 [Rx Last Taken 11/29/22] sertraline 25 mg tablet 25 mg PO DAILY DEPRESSION #90 tabs 11/29/22 [Rx Last Taken 11/30/22] Allergy/AdvReac Type Severity Reaction Status Date / Time hydrocodone bitartrate AdvReac Severe Other Verified 11/27/22 12:50 [From Vicodin] hydroxyzine AdvReac Severe Other Verified 11/27/22 12:50 Family History Father Diabetes Hypertension Cancer Lung cancer Mother Hypertension CVA (cerebral vascular accident) Sister Diabetes Son Diabetes Surgical History History of cardioversion (2015) History of cataract surgery History of left heart catheterization (02/16/13) History of lithotripsy (11/2020) History of loop recorder (06/26/22) History of radiofrequency ablation procedure for cardiac arrhythmia (02/05/06) history of right knee cap fracture History of right knee surgery Status post laser lithotripsy of ureteral calculus Status post left foot surgery STENT PLACEMENT FOR KIDNEY STONE Social History household members: spouse housing: house Smoking Status: Never smoker how long ago did patient quit smokin second hand exposure: No alcohol intake: never substance use type: does not use caffeine: No what type of physical activity do you participate in: none seatbelt use: always do you feel safe at home: Yes ROS ROS Narrative Constitutional: Reports fatigue and weakness. No focal weakness no fever. Gain of weight. HEENT: Reports systems reviewed and no addt'l complaints, except as documented Respiratory/Chest: As described in HPI. CVS: History of paroxysmal A-fib, chronic diastolic failure. Pacemaker. Gastrointestinal: Denies coffee ground emesis, hematemesis or vomiting Genitourinary: Denies burning urination or new urinary tract symptoms Musculoskeletal: Chronic joint pain and limited range of motion. Decreased functional activity. Neurologic: Denies seizure-like activity. No acute distress. skin: No ulcer. No rash Endocrinology: Reports systems reviewed and no addt'l complaints, except as doc umented Hematologic/Lymphatic: Reports systems reviewed and no addt'l complaints, except as documented Rest 14 ROS are negative except as mentioned in HPI Vital Signs Vital Signs Vital Signs: 12/02/22 08:14 12/02/22 08:14 12/02/22 08:20 Temperature 97.0 F L 97.0 F L Temperature Source Temporal Temporal Pulse Rate 116 H 116 H Respiratory Rate 21 H 18 Respiratory Effort Normal Non-Labored Respiratory Pattern Normal Blood Pressure 105/66 102/65 Blood Pressure Mean 79 77 Pulse Ox 96 94 Oxygen Delivery Method Room Air Room Air 12/02/22 08:22 Temperature Temperature Source Pulse Rate Respiratory Rate Respiratory Effort Respiratory Pattern Blood Pressure Blood Pressure Mean Pulse Ox Oxygen Delivery Method Room Air Weight Weight: 287 lb 14.779 oz Body Mass Index (BMI) 39.0 Physical Exam Narrative General: Alert, Oriented x3, Cooperative, morbid obesity BMI 39.0 kg/m? HEENT: Atraumatic, PERRLA, EOMI, Normocephalic Oral: Oral mucosa moist. No Gingival or Mucosal Lesions/ Ulcerations Neck: Supple, No JVD, Negative Carotid Bruits Lungs: Air entry diminished in bilateral lung bases. No crepitation/rhonchi Cardiovascular: Ventricular paced rhythm, Normal S1, Normal S2. Systolic murmur over right second ICS and LLSB Abdomen: Bowel Sounds Present, Soft, Non Tender, Non-Distended : No renal angle tenderness. No suprapubic tenderness. Extremities: 2+ below-knee pitting bilateral edema, Capillary Refill Less than 3 Seconds Skin: No rashes, No breakdown Musculoskeletal: No Tenderness to Palpation of Joints or Extremities. ROM rest ricted. Muscle strength 4+/5. Bilateral hips and knee joints. No gouty flare. Neurological: Cranial nerves II-XII grossly intact, DTR 2+/4 and Symmetrical, Neuro grossly intact Psych/Mental Status: Flat affect Results Lab / Micro Data Result Diagrams: 12/02/22 08:02 12/02/22 08:02 Labs: Laboratory Results - last 24 hr 12/02/22 08:02: WBC 7.2, RBC 3.36 L, Hgb 10.5 L, Hct 31.8 L, MCV 94.6 H, MCH 31.3, MCHC 33.0, RDW Std Deviation 46.2 H, RDW Coeff of Flavio 13.3, Plt Count 182, MPV 10.1, Immature Gran % (Auto) 0.600, Neut % (Auto) 65.9, Lymph % (Auto) 20.0, [place] % (Auto) 9.1, Eos % (Auto) 3.6, Baso % (Auto) 0.8, Absolute Neuts (auto) 4.7, Absolute Lymphs (auto) 1.43, Nucleated RBC % 0 12/02/22 08:02: Sodium 136, Potassium 4.3, Chloride 113 H, Carbon Dioxide 19.0 L , Anion Gap 4 L, BUN 45 H, Creatinine 1.75 H, Estim Creat Clear Calc 35.10, Est GFR (MDRD) Af Amer 48 L, Est GFR (MDRD) Non-Af 40 L, BUN/Creatinine Ratio 25.7 H , Glucose 210 H, Calcium 8.9, Troponin I High Sens 44 12/02/22 08:02: B-Natriuretic Peptide 1061.5 H Radiology Impression Chest X-Ray 12/02/22 08:31 IMPRESSION: Borderline cardiomegaly. Stable mild increased linear markings at the lung bases slightly more prominent at the left lung base suggestive of atelectasis. Electronically Signed: Leo Fay MD at 8:48 EDT , Assessment & Plan Assessment/Plan (1) Acute on chronic diastolic HF (heart failure): PLAN: Plan 82-year-old gentleman being admitted for mild shortness of breath on baseline chronic shortness of breath and atrial tachycardia. 1. Acute on chronic HFpEF: Patient had last echo on 11/10/2022 reported as EF 65% with no RWMA. LA moderately enlarged. Mild TR. PASP 36 mmHg. Patient has bilateral leg swelling, elevated BNP and gain of 10 pounds in 1 to 2 months and elevated BNP suggestive of acute on chronic HFpEF. Patient is started on Lasix. Heart failure core measures including intake and output, fluid restriction less than 1500 mL, daily weight monitoring, kidney and electrolytes monitoring. Chest x-ray done and does not show acute change. First troponin negative. Second troponin pending. Serum magnesium and phosphorus level normal. Bicarb 19. Anion gap 4. 2. Atrial tachycardia/dysrhythmia with history of paroxysmal A-fib on flecainide: Patient had pacemaker inserted on 10/14/2022. EKG in ED shows ventricular paced rhythm at 117 bpm. Pacemaker interrogation was done in the ED today. Pacemaker interrogation report shows DDD mode. Ventricular rate during AT/AF 86 to 70/min. There is 0 VT, NSVT and SVT episodes. 100% ventricular paced. Total PVC 17. Total PACs 123. Since last reset November 25, 2022, total AT/AF 2%, 153 events, average ventricular rate 68/min, total time in AT/AF 2.8 hours. Blast Furnace Checker consulted for further opinion 3.? CKD stage IIIb: Patient baseline creatinine around 1.5, varies between 1.3- 1.75. Admitting BUN/creatinine 45/1.75.? Patient seems hypervolemic therefore will diurese with 4.? Paroxysmal A. fib/supraventricular arrhythmia history on flecainide: Twelve- lead EKG ordered.? Patient on flecainide 100 mg every 12 hourly.? He had mild QTC prolongation on previous admission in July 2021 when he was admitted for hypertensive urgency with vertigo and dizziness.? MRI of brain was negative for acute stroke. 5.? History of CAD-on statin, metoprolol.? Home medications continued 6. 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 Glucose is 210. On long-acting insulin 7.? Chronic iron deficiency anemia and anemia of chronic disease/CKD-on ferrous sulfate.? 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 Patient baseline hemoglobin 10.5/31.8%. He underwent EGD with dilatation on 07/03/2021 was found reflux esophagitis, low-grade status getting multiple nonbleeding duodenal ulcers with no stigmata of bleeding.? Patient follows Dr. Becerra, no acute issues. 8. MACHELLE-continue home CPAP 9. Restless leg syndrome-on Mirapex. 10. BPH-and history of kidney stone lithotripsy on finasteride and urge incontinence: Patient cannot hold urine. 11. Psoriatic arthritis and gout-patient last gout exacerbation was early this year. Currently does not have podagra or acute joint pain or swelling. 12 history of COVID-19 on March 17, 2022: The patient does not have active symptoms of COVID-19 including cough, fever, URI, loss of appetite.? 13 anxiety and depression: On Zoloft 14. VTE prophylaxis: On Lovenox 40 mill subcu daily Living will/advanced directive/end of life care: Patient does have living will or advanced directive. His is power of machine long goods helper for health. After discussion of benefits/risks procedures involved with full code, DNR CC arrest and DNR CC, the patient and his opted for full code. Patient does want artificial life support including intubation, tube feed, ventilator and/chest compression, central venous catheter, vasopressor and DC shock if needed Total time spent in [id number] encounter in discussion of advanced directive 17 minutes. Laboratory Results 12/02/22 08:02: WBC 7.2, RBC 3.36 L, Hgb 10.5 L, Hct 31.8 L, MCV 94.6 H, MCH 31.3, MCHC 33.0, RDW Std Deviation 46.2 H, RDW Coeff of Flavio 13.3, Plt Count 182, MPV 10.1, Immature Gran % (Auto) 0.600, Neut % (Auto) 65.9, Lymph % (Auto) 20.0, [place] % (Auto) 9.1, Eos % (Auto) 3.6, Baso % (Auto) 0.8, Absolute Neuts (auto) 4.7, Absolute Lymphs (auto) 1.43, Nucleated RBC % 0 12/02/22 08:02: Sodium 136, Potassium 4.3, Chloride 113 H, Carbon Dioxide 19.0 L , Anion Gap 4 L, BUN 45 H, Creatinine 1.75 H, Estim Creat Clear Calc 35.10, Est GFR (MDRD) Af Amer 48 L, Est GFR (MDRD) Non-Af 40 L, BUN/Creatinine Ratio 25.7 H , Glucose 210 H, Calcium 8.9, Phosphorus 3.5, Magnesium 2.0, Troponin I High Sen s 44 12/02/22 08:02: B-Natriuretic Peptide 1061.5 H 12/02/22 12:41: Troponin I High Sens Pending Charges/Coding Visit Charges Inpatient E&M: 44584 Init Hosp L3 Procedures Hospitalists Procedures: 20070 Advncd Care Plan 30 Min
--- NOTE | 2022-12-02 11:23 | NURSING ---
PCU OBS ALY WEAKNESS, SHORTNESS OF BREATH, TACHYCARDIA
[2022-12-02 11:43] LABS: Phosphorus 3.5 mg/dL (2.5-4.9)
[2022-12-02] MEDS: Furosemide 20 MG/2 ML VIAL IV ×2 (13:09→17:19)
[2022-12-02] MEDS: Enoxaparin 40 MG/0.4 ML Syringe SC (13:09)
[2022-12-02 13:20] LABS: Troponin-I HS 41 pg/mL (3.0-78.0)
[2022-12-02] MEDS: Insulin Glargine-YFGN 100 UNIT/ML Pen 10 UNIT SC (17:15)
[2022-12-02] MEDS: Insulin Lispro 100 UNIT/ML INSULN.PEN SC (17:18)
[2022-12-02 17:50] LABS: Bedside Glucose 174 mg/dL (74-106)
--- NOTE | 2022-12-02 18:20 | PCM.CONS.C ---
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 Patient had a history of paroxysmal atrial fibrillation has been on flecainide and also had a pacemaker for underlying sick sinus syndrome. Known CKD with HORACE on CKD and serum creatinine of 1.75 Also patient had a history of CAD, diabetes mellitus, MACHELLE Cardiac care plan recommendations; I reviewed the current evaluation here including the EKG ekg monitor tech prior imaging studies and current lab and current medication His cardiac rhythm is paced electronic ventricular rhythm Pacemaker has been interrogated which showed normal functioning DDDR/pacemaker. We will continue to monitor and follow-up clinically. He has remarkable lower extremity swelling with a diagnosis of acute on chronic diastolic heart failure/HFpEF HPI Consult Data Date of Consult: 12/02/22 HPI Narrative Reason for Consultation: Patient presented with generalized weakness shortness of breath/palpitation HPI Narrative: MARY SAN, is a 82 M who presents COUNTS INCLUDE 234 BEDS AT THE [facility] Medical History (HFpEF) heart failure with preserved ejection fraction (12/12/20) Acute respiratory failure with hypoxia Anemia Anemia of chronic renal failure, stage 3 (moderate) Anxiety and depression Atherosclerotic heart disease of [place] coronary artery without angina pectoris Atrial flutter Atypical chest pain Back pain BMI 34.0-34.9,adult BPH (benign prostatic hyperplasia) BPPV (benign paroxysmal positional vertigo) Bradycardia Cardiac dysrhythmia Cardiology follow-up encounter CHF (congestive heart failure) CHF (congestive heart failure) De Quervain's tenosynovitis Debility Depression Dermatitis Diabetes mellitus Diabetic kidney disease Dizziness DM type 2 with diabetic peripheral neuropathy DVT (deep venous thrombosis) Dyslipidemia Dysphagia Essential (primary) hypertension Fall Flu vaccine need Fracture of great toe Gastric reflux Gout Gout flare Health care maintenance History of echocardiogram History of edema History of GI bleed History of peptic ulcer History of renal calculi History of ulceration HLD (hyperlipidemia) Injury of head and neck Iron deficiency anemia Iron deficiency anemia due to chronic blood loss Kidney hematoma (12/08/20) Left knee pain Left leg DVT Loss of equilibrium Low iron Malaise Near syncope Orthostatic hypotension MACHELLE (obstructive sleep apnea) Pain of left lower extremity Paroxysmal atrial fibrillation Paroxysmal atrial flutter Pneumonia Polypharmacy 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 Presence of cardiac pacemaker Prostate disease Psoriasis Recurrent syncope (06/19/22) Renal calculi RLS (restless legs syndrome) Sex disorder Sick sinus syndrome Suicidal ideation SVT (supraventricular tachycardia) TIA (transient ischemic attack) Type 2 diabetes mellitus with diabetic polyneuropathy Urolithiasis Venous insufficiency of both lower extremities Vertigo Walker as ambulation aid Wears glasses Home Medications finasteride 5 mg tablet 5 mg PO DAILY PROSTATE #90 tabs 11/03/18 [Rx Last Taken 11/30/22] acetaminophen 500 mg tablet 1,000 mg PO Q6H PRN Pain 10/06/22 [History Last Taken 11/29/22] hydralazine 50 mg tablet 50 mg PO BID BP 10/06/22 [History Last Taken 11/30/22] insulin glargine 100 unit/mL (3 mL) subcutaneous pen 30 unit subcut QAM DM 10/06/22 [History Last Taken 11/29/22] progesterone micronized 100 mg capsule 100 mg PO QAM HORMONE 10/06/22 [History Last Taken 11/30/22] dulaglutide 4.5 mg/0.5 mL subcutaneous pen injector 4.5 mg (0.5 mL) subcut .COMPLEX DM #2 mL 10/24/22 [Rx Last Taken 11/29/22] meclizine 25 mg tablet 25 mg PO TID PRN dizziness #90 tabs 10/24/22 [Rx Last Taken 11/29/22] furosemide 20 mg tablet 20 mg PO BID diuretic 11/26/22 [History Last Taken 11/30/22] hydralazine 25 mg tablet 25 mg PO BID 11/26/22 [History Last Taken 11/30/22] amlodipine 5 mg tablet 5 mg PO DAILY BP #90 tabs 11/29/22 [Rx Last Taken 11/30/22] atorvastatin 10 mg tablet 10 mg PO DAILY #90 tabs 11/29/22 [Rx Last Taken 11/29/22] ergocalciferol (vitamin D2) 1,250 mcg (50,000 unit) capsule 50,000 unit PO QMONTH SUPPLEMENT #14 caps 11/29/22 [Rx Last Taken 11/16/22] famotidine 20 mg tablet 20 mg PO DAILY #90 tabs 11/29/22 [Rx Last Taken 11/30/22] ferrous sulfate 325 mg (65 mg iron) tablet 325 mg PO TH supplement #90 tabs 11/29/22 [Rx Last Taken 11/28/22] flecainide 100 mg tablet 100 mg PO Q12H HEART RATE #180 tabs 11/29/22 [Rx Last Taken 11/30/22] metoprolol succinate 25 mg tablet,extended release 24 hr 12.5 mg PO DAILY BP #90 tabs 11/29/22 [Rx Last Taken 11/30/22] pramipexole 1 mg tablet (Mirapex) 2 mg PO QHS RLS #180 tabs 11/29/22 [Rx Last Taken 11/29/22] sertraline 25 mg tablet 25 mg PO DAILY DEPRESSION #90 tabs 11/29/22 [Rx Last Taken 11/30/22] Allergy/AdvReac Type Severity Reaction Status Date / Time hydrocodone bitartrate AdvReac Severe Other Verified 11/27/22 12:50 [From Vicodin] hydroxyzine AdvReac Severe Other Verified 11/27/22 12:50 Family History Father Diabetes Hypertension Cancer Lung cancer Mother Hypertension CVA (cerebral vascular accident) Sister Diabetes Son Diabetes Surgical History History of cardioversion (2015) History of cataract surgery History of left heart catheterization (02/16/13) History of lithotripsy (11/2020) History of loop recorder (06/26/22) History of radiofrequency ablation procedure for cardiac arrhythmia (02/05/06) history of right knee cap fracture History of right knee surgery Status post laser lithotripsy of ureteral calculus Status post left foot surgery STENT PLACEMENT FOR KIDNEY STONE Social History household members: spouse housing: house Smoking Status: Never smoker how long ago did patient quit smokin second hand exposure: No alcohol intake: never substance use type: does not use caffeine: No what type of physical activity do you participate in: none seatbelt use: always do you feel safe at home: Yes Physical Exam Cardio Cardio Narrative: Review of ekg monitor tech showed based electronic ventricular rhythm Cardiovascular exam S1-S2 regular Chest exam mildly diminished air entry bilateral Examination lower extremity patient has +2?+3 lower extremity edema Risk Stratification Risk Stratification Applicable: No Objective Data Vital Signs: Vital Signs Temp Pulse Resp BP Pulse Ox O2 Del Method 98.2 F 50 L 16 149/61 H 95 Room Air 12/02/22 17:25 12/02/22 17:25 12/02/22 17:25 12/02/22 17:25 12/02/22 17:25 12/02/22 17:25 Oxygen Delivery Method Room Air Weight: 279 lb 8.738 oz Body Mass Index (BMI) 37.9 Lab / Micro Data Result Diagrams: 12/02/22 08:02 12/02/22 08:02 Labs: Laboratory Results - last 24 hr 12/02/22 08:02: WBC 7.2, RBC 3.36 L, Hgb 10.5 L, Hct 31.8 L, MCV 94.6 H, MCH 31.3, MCHC 33.0, RDW Std Deviation 46.2 H, RDW Coeff of Flavio 13.3, Plt Count 182, MPV 10.1, Immature Gran % (Auto) 0.600, Neut % (Auto) 65.9, Lymph % (Auto) 20.0, [place] % (Auto) 9.1, Eos % (Auto) 3.6, Baso % (Auto) 0.8, Absolute Neuts (auto) 4.7, Absolute Lymphs (auto) 1.43, Nucleated RBC % 0 12/02/22 08:02: Sodium 136, Potassium 4.3, Chloride 113 H, Carbon Dioxide 19.0 L, Anion Gap 4 L, BUN 45 H, Creatinine 1.75 H, Estim Creat Clear Calc 35.10, Est GFR (MDRD) Af Amer 48 L, Est GFR (MDRD) Non-Af 40 L, BUN/Creatinine Ratio 25.7 H, Glucose 210 H, Calcium 8.9, Phosphorus 3.5, Magnesium 2.0, Troponin I High Sens 44 12/02/22 08:02: B-Natriuretic Peptide 1061.5 H 12/02/22 12:41: Troponin I High Sens 41 12/02/22 17:13: POC Glucose 174 H Cardiology Labs/Tests 12/02/22 08:02: WBC 7.2, RBC 3.36 L, Hgb 10.5 L, Hct 31.8 L, MCV 94.6 H, MCH 31.3, MCHC 33.0, Plt Count 182, MPV 10.1, Immature Gran % (Auto) 0.600, Neut % (Auto) 65.9, Lymph % (Auto) 20.0, [place] % (Auto) 9.1, Eos % (Auto) 3.6, Baso % (Auto) 0.8, Absolute Neuts (auto) 4.7, Nucleated RBC % 0 12/02/22 08:02: Sodium 136, Potassium 4.3, Chloride 113 H, Carbon Dioxide 19.0 L, Anion Gap 4 L, BUN 45 H, Creatinine 1.75 H, Est GFR (MDRD) Af Amer 48 L, Est GFR (MDRD) Non-Af 40 L, BUN/Creatinine Ratio 25.7 H, Glucose 210 H, Calcium 8.9, Phosphorus 3.5, Magnesium 2.0 12/02/22 08:02: B-Natriuretic Peptide 1061.5 H Rhythm: EKG: ECHO: Stress Test: Cardiac Cath: PCI: CT Surgery: Holter monitor: EPS: PPM: CXR: Chest CT Scan: Radiography Diagnostic Testing: Radiology Impression Chest X-Ray 12/02/22 08:31 IMPRESSION: Borderline cardiomegaly. Stable mild increased linear markings at the lung bases slightly more prominent at the left lung base suggestive of atelectasis. Electronically Signed: Leo Fay MD at 8:48 EDT ,
--- NOTE | 2022-12-02 19:08 | CT_ITS ---
INDICATION: confusion EXAMINATION: CT BRAIN - CT Head or Brain W/O Contrast Injection TECHNIQUE: Multiple axial images were obtained of the head without intravenous contrast. A radiation dose optimization technique was used for this scan. IV Contrast dosage and agent: None. COMPARISON: September 02, 2022 CT head FINDINGS: BRAIN PARENCHYMA: No intra- or extra-axial hemorrhage. No intracranial mass or mass effect. Lees/white matter differentiation is maintained and there is no blurring of the basal ganglia. There is no hyperdense vessel. Posterior fossa structures are within normal limits. Dense, intracranial vertebral artery calcifications are present CSF SPACES: Mildly prominent diffusely, likely within normal limits for age. No hydrocephalus. Basal cisterns are patent. CALVARIUM, SKULL BASE, PARANASAL SINUSES AND MASTOID AIR CELLS: Intact calvarium and skull base. No fracture or osseous lesion. Paranasal sinuses are clear. Mastoid air cells and middle ears are clear. 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 Correlate for pulsatile tinnitus. ORBITS: Both globes, extraocular muscles, optic nerves and retrobulbar fat appear unremarkable. Soft tissue density in the subcutaneous fat of the posterior neck is again identified and unchanged. ASPECTS Score for Acute Strokes: 10 CT/Brain/Head without Contrast IMPRESSION: No acute intracranial pathology. 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 This is usually incidental, asymptomatic finding. Correlate clinically for pulsatile tinnitus. Electronically Signed: Kadeem Cordova DO at 20:47 EDT ,
[2022-12-02] MEDS: Senna/Docusate Sodium 1 Tablet 2 TABLET PO (22:34)
[2022-12-02] MEDS: 0.9% Saline Lock 10 ML Syringe IV (22:36)
[2022-12-02 23:06] LABS: Bedside Glucose 126 mg/dL (74-106)
[2022-12-03 04:11] VITALS: BP 123/61; PULSE 70; RESP 18; TEMP 36.3; O2SAT 97
[2022-12-03 04:35] LABS: Absolute Lymphocyte Count 1.18 X10^3/uL (0.83-4.51); Absolute Neutrophil Count 5.1 X10^3/uL (2.0-7.7); Basophil# 0.05 X10^3/uL; Basophil% 0.7 % (0-1); Eosinophil# 0.26 X10^3/uL; Eosinophils% 3.6 % (0-5); Hematocrit 29.3 % (40-54); Hemoglobin 9.5 g/dL (13.0-16.5); Lymphocyte # 1.18 X10^3/ul (0.83-4.51); Lymphocyte % 16.2 % (19-41); Mean Corp Hgb Conc 32.4 g/dL (32-36); Mean Corpuscular Hgb 30.5 pg (27.0-32.0); Mean Corpuscular Volume 94.2 fL (80-94); Mean Platelet Vol. 9.9 fl (6.2-12.0); Monocyte# 0.71 X10^3/uL; Monocyte% 9.7 % (0-10); NRBC Flagged by Analyzer 0 % (0-5); Neutrophil # 5.07 X10^3/uL (2.7-7.7); Neutrophil % 69.4 % (47-70); Platelet Count 183 K/mm3 (150-450); RBC Distribution Width CV 13.2 % (11.6-14.6); RBC Distribution Width SD 45.7 fl (35.1-43.9); Red Blood Count 3.11 M/mm3 (4.6-6.2); White Blood Count 7.3 K/mm3 (4.4-11.0)
[2022-12-03 04:44] VITALS: BMI 37.3
[2022-12-03 05:10] LABS: Anion Gap 4 (5-15); BUN 42 mg/dL (7-18); BUN/Creat Ratio 26.1 RATIO (10-20); Calcium,Total 8.4 mg/dL (8.5-10.1); Chloride 112 mmol/L (98-107); Creatinine, Serum 1.61 mg/dL (0.70-1.30); EST Glomerular Filtration Rate 44 mL/min (>60); Est Glom Filt Rate - Afr Amer 53 mL/min (>60); Estimated Creatinine Clearance 38.16 ml/min; Glucose 109 mg/dL (74-106); Potassium 4.5 mmol/L (3.5-5.1); Sodium Level 138 mmol/L (136-145); Thyroid Stim Hormone (TSH) 1.02 uIU/mL (0.358-3.74)
[2022-12-03 06:51] LABS: Bedside Glucose 102 mg/dL (74-106)
[2022-12-03 07:28] VITALS: O2SAT 95
--- NOTE | 2022-12-03 08:42 | PN.HOSP_ITS ---
Reason for Visit Reason for Visit: Diagnoses Unspecified atrial flutter (12/02/22) Acute on chronic diastolic (congestive) heart failure (12/02/22) Acute kidney failure, unspecified (12/02/22) Edema, unspecified (12/02/22) Abnormal weight gain (12/02/22) Subjective Subjective Physical exam findings patient was little dizzy last night. CT head was done Objective Data Objective Data Vital Signs: Vital Signs Temp Pulse Resp BP Pulse Ox O2 Del Method 97.3 F L 70 18 123/61 H 95 Room Air 12/03/22 04:11 12/03/22 04:11 12/03/22 04:11 12/03/22 04:11 12/03/22 07:28 12/03/22 07:52 Oxygen Delivery Method Room Air Weight: 274 lb 14.663 oz Body Mass Index (BMI) 37.3 Intake & Output: Intake and Output for Last 24 Hours 12/01/22 12/02/22 12/03/22 23:59 23:59 23:59 Intake Total 480 / 480 Output Total 1100 / 1100 Balance -620 / -620 Lab / Micro Data Result Diagrams: 12/03/22 03:47 12/03/22 03:47 Labs: Laboratory Results - last 24 hr 12/02/22 08:02: Sodium 136, Potassium 4.3, Chloride 113 H, Carbon Dioxide 19.0 L , Anion Gap 4 L, BUN 45 H, Creatinine 1.75 H, Estim Creat Clear Calc 35.10, Est GFR (MDRD) Af Amer 48 L, Est GFR (MDRD) Non-Af 40 L, BUN/Creatinine Ratio 25.7 H , Glucose 210 H, Calcium 8.9, Phosphorus 3.5, Magnesium 2.0, Troponin I High Sens 44 12/02/22 08:02: B-Natriuretic Peptide 1061.5 H 12/02/22 12:41: Troponin I High Sens 41 12/02/22 17:13: POC Glucose 174 H 12/02/22 22:45: POC Glucose 126 H 12/03/22 03:47: WBC 7.3, RBC 3.11 L, Hgb 9.5 L, Hct 29.3 L, MCV 94.2 H, MCH 30.5, MCHC 32.4, RDW Std Deviation 45.7 H, RDW Coeff of Flavio 13.2, Plt Count 183, MPV 9.9, Immature Gran % (Auto) 0.400, Neut % (Auto) 69.4, Lymph % (Auto) 16.2 L , [place] % (Auto) 9.7, Eos % (Auto) 3.6, Baso % (Auto) 0.7, Absolute Neuts (auto) 5.1, Absolute Lymphs (auto) 1.18, Nucleated RBC % 0 12/03/22 03:47: Sodium 138, Potassium 4.5, Chloride 112 H, Carbon Dioxide 22.0, Anion Gap 4 L, BUN 42 H, Creatinine 1.61 H, Estim Creat Clear Calc 38.16, Est GFR (MDRD) Af Amer 53 L, Est GFR (MDRD) Non-Af 44 L, BUN/Creatinine Ratio 26.1 H , Glucose 109 H, Calcium 8.4 L, TSH 1.02 12/03/22 06:30: POC Glucose 102 Radiography Diagnostic Testing: Radiology Impression Chest X-Ray 12/02/22 08:31 IMPRESSION: Borderline cardiomegaly. Stable mild increased linear markings at the lung bases slightly more prominent at the left lung base suggestive of atelectasis. Electronically Signed: Leo Fay MD at 8:48 EDT , Brain CT 12/02/22 19:08 IMPRESSION: No acute intracranial pathology. 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 This is usually incidental, asymptomatic finding. Correlate clinically for pulsatile tinnitus. Electronically Signed: Kadeem Cordova DO at 20:47 EDT , Physical Exam Narrative General: Alert, Oriented x3, Cooperative, morbid obesity BMI 39.0 kg/m? HEENT: Atraumatic, PERRLA, EOMI, Normocephalic Oral: Oral mucosa moist. No Gingival or Mucosal Lesions/ Ulcerations Neck: Supple, No JVD, Negative Carotid Bruits Lungs: Air entry diminished in bilateral lung bases. No crepitation/rhonchi Cardiovascular: Ventricular paced rhythm, Normal S1, Normal S2. Systolic murmur over right second ICS and LLSB Abdomen: Bowel Sounds Present, Soft, Non Tender, Non-Distended : No renal angle tenderness. No suprapubic tenderness. Extremities: 2+ below-knee pitting bilateral edema, Capillary Refill Less than 3 Seconds Skin: No rashes, No breakdown Musculoskeletal: No Tenderness to Palpation of Joints or Extremities. ROM restricted. Muscle strength 4+/5. Bilateral hips and knee joints. No gouty flare. Neurological: Cranial nerves II-XII grossly intact, DTR 2+/4 and Symmetrical, Neuro grossly intact Psych/Mental Status: Flat affect Assessment & Plan Assessment/Plan (1) Acute on chronic diastolic HF (heart failure): PLAN: Plan 82-year-old gentleman being admitted for mild shortness of breath on baseline chronic shortness of breath and atrial tachycardia. 1. Acute on chronic HFpEF: Patient had last echo on 11/10/2022 reported as EF 65% with no RWMA. LA moderately enlarged. Mild TR. PASP 36 mmHg. Patient has bilateral leg swelling, elevated BNP and gain of 10 pounds in 1 to 2 months and elevated BNP suggestive of acute on chronic HFpEF. Patient is started on Lasix. Heart failure core measures including intake and output, fluid restriction less than 1500 mL, daily weight monitoring, kidney and electrolytes monitoring. Chest x-ray done and does not show acute change. First troponin negative. Second troponin pending. Serum magnesium and phosphorus level normal. Bicarb 19. Anion gap 4. 2. Atrial tachycardia/dysrhythmia with history of paroxysmal A-fib on flecainide: Patient had pacemaker inserted on 10/14/2022. EKG in ED shows ventricular paced rhythm at 117 bpm. Pacemaker interrogation was done in the ED today. Pacemaker interrogation report shows DDD mode. Ventricular rate during AT/AF 86 to 70/min. There is 0 VT, NSVT and SVT episodes. 100% ventricular paced. Total PVC 17. Total PACs 123. Since last reset November 25, 2022, total AT/AF 2%, 153 events, average ventricular rate 68/min, total time in AT/AF 2.8 hours. Systems [employer] Programming Lead consulted for further opinion 3.? CKD stage IIIb: Patient baseline creatinine around 1.5, varies between 1.3- 1.75. Admitting BUN/creatinine 45/1.75.? Patient seems hypervolemic therefore will diurese with 4.? Paroxysmal A. fib/supraventricular arrhythmia history on flecainide: Twelve- lead EKG ordered.? Patient on flecainide 100 mg every 12 hourly.? He had mild QTC prolongation on previous admission in July 2021 when he was admitted for hypertensive urgency with vertigo and dizziness.? MRI of brain was negative for acute stroke. 5.? History of CAD-on statin, metoprolol.? Home medications continued 6. 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 Glucose is 210. On long-acting insulin 7.? Chronic iron deficiency anemia and anemia of chronic disease/CKD-on ferrous sulfate.? Patient follows licensing and registration director. Patient baseline hemoglobin 10.5/31.8%. He underwent EGD with dilatation on 07/03/2021 was found reflux esophagitis, low-grade status getting multiple nonbleeding duodenal ulcers with no stigmata of bleeding.? Patient follows Dr. Becerra, no acute issues. 8. MACHELLE-continue home CPAP 9. Restless leg syndrome-on Mirapex. 10. BPH-and history of kidney stone lithotripsy on finasteride and urge incontinence: Patient cannot hold urine. 11. Psoriatic arthritis and gout-patient last gout exacerbation was early this year. Currently does not have podagra or acute joint pain or swelling. 12 history of COVID-19 on March 17, 2022: The patient does not have active symptoms of COVID-19 including cough, fever, URI, loss of appetite.? 13 anxiety and depression: On Zoloft 14. VTE prophylaxis: On Lovenox 40 mill subcu daily Living will/advanced directive/end of life care: Patient does have living will or advanced directive. His is power of squeegeer and former for health. After d iscussion of benefits/risks procedures involved with full code, DNR CC arrest and DNR CC, the patient and his opted for full code. Patient does want artificial life support including intubation, tube feed, ventilator and/chest compression, central venous catheter, vasopressor and DC shock if needed Total time spent in [id number] encounter in discussion of advanced directive 17 minutes. Clinical Impression(s) from Imaging Studies Chest X-Ray 12/02/22 08:31 IMPRESSION: Borderline cardiomegaly. Stable mild increased linear markings at the lung bases slightly more prominent at the left lung base suggestive of atelectasis. Brain CT 12/02/22 19:08 IMPRESSION: No acute intracranial pathology. 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 This is usually incidental, asymptomatic finding. Correlate clinically for pulsatile tinnitus. Laboratory Results 12/02/22 08:02: WBC 7.2, RBC 3.36 L, Hgb 10.5 L, Hct 31.8 L, MCV 94.6 H, MCH 31.3, MCHC 33.0, RDW Std Deviation 46.2 H, RDW Coeff of Flavio 13.3, Plt Count 182, MPV 10.1, Immature Gran % (Auto) 0.600, Neut % (Auto) 65.9, Lymph % (Auto) 20.0, [place] % (Auto) 9.1, Eos % (Auto) 3.6, Baso % (Auto) 0.8, Absolute Neuts (auto) 4.7, Absolute Lymphs (auto) 1.43, Nucleated RBC % 0 12/02/22 08:02: Sodium 136, Potassium 4.3, Chloride 113 H, Carbon Dioxide 19.0 L , Anion Gap 4 L, BUN 45 H, Creatinine 1.75 H, Estim Creat Clear Calc 35.10, Est GFR (MDRD) Af Amer 48 L, Est GFR (MDRD) Non-Af 40 L, BUN/Creatinine Ratio 25.7 H , Glucose 210 H, Calcium 8.9, Phosphorus 3.5, Magnesium 2.0, Troponin I High Sens 44 12/02/22 08:02: B-Natriuretic Peptide 1061.5 H 12/02/22 12:41: Troponin I High Sens Pending
--- NOTE | 2022-12-03 09:23 | PN.CARD_ITS ---
Subjective Subjective Patient seen and evaluated. He has not had any further palpitations that he is aware of. He does not have any chest pain. He does not have any shortness of breath. Objective Data Vital Signs: Vital Signs Temp Pulse Resp BP Pulse Ox O2 Del Method 97.3 F L 70 18 123/61 H 95 Room Air 12/03/22 04:11 12/03/22 04:11 12/03/22 04:11 12/03/22 04:11 12/03/22 07:28 12/03/22 07:52 Oxygen Delivery Method Room Air Weight: 274 lb 14.663 oz Body Mass Index (BMI) 37.3 Intake & Output: Intake and Output for Last 24 Hours 12/01/22 12/02/22 12/03/22 23:59 23:59 23:59 Intake Total 480 / 480 Output Total 1100 / 1100 Balance -620 / -620 Lab / Micro Data Result Diagrams: 12/03/22 03:47 12/03/22 03:47 Labs: Laboratory Results - last 24 hr 12/02/22 08:02: Phosphorus 3.5, Magnesium 2.0 12/02/22 12:41: Troponin I High Sens 41 12/02/22 17:13: POC Glucose 174 H 12/02/22 22:45: POC Glucose 126 H 12/03/22 03:47: WBC 7.3, RBC 3.11 L, Hgb 9.5 L, Hct 29.3 L, MCV 94.2 H, MCH 30.5, MCHC 32.4, RDW Std Deviation 45.7 H, RDW Coeff of Flavio 13.2, Plt Count 183, MPV 9.9, Immature Gran % (Auto) 0.400, Neut % (Auto) 69.4, Lymph % (Auto) 16.2 L , [place] % (Auto) 9.7, Eos % (Auto) 3.6, Baso % (Auto) 0.7, Absolute Neuts (auto) 5.1, Absolute Lymphs (auto) 1.18, Nucleated RBC % 0 12/03/22 03:47: Sodium 138, Potassium 4.5, Chloride 112 H, Carbon Dioxide 22.0, Anion Gap 4 L, BUN 42 H, Creatinine 1.61 H, Estim Creat Clear Calc 38.16, Est GFR (MDRD) Af Amer 53 L, Est GFR (MDRD) Non-Af 44 L, BUN/Creatinine Ratio 26.1 H , Glucose 109 H, Calcium 8.4 L, TSH 1.02 12/03/22 06:30: POC Glucose 102 Cardiology Labs/Tests 12/02/22 08:02: Phosphorus 3.5, Magnesium 2.0 12/03/22 03:47: WBC 7.3, RBC 3.11 L, Hgb 9.5 L, Hct 29.3 L, MCV 94.2 H, MCH 30.5, MCHC 32.4, Plt Count 183, MPV 9.9, Immature Gran % (Auto) 0.400, Neut % (Auto) 69.4, Lymph % (Auto) 16.2 L, [place] % (Auto) 9.7, Eos % (Auto) 3.6, Baso % (Auto) 0.7, Absolute Neuts (auto) 5.1, Nucleated RBC % 0 12/03/22 03:47: Sodium 138, Potassium 4.5, Chloride 112 H, Carbon Dioxide 22.0, Anion Gap 4 L, BUN 42 H, Creatinine 1.61 H, Est GFR (MDRD) Af Amer 53 L, Est GFR (MDRD) Non-Af 44 L, BUN/Creatinine Ratio 26.1 H, Glucose 109 H, Calcium 8.4 L Radiography Diagnostic Testing: Radiology Impression Brain CT 12/02/22 19:08 IMPRESSION: No acute intracranial pathology. 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 This is usually incidental, asymptomatic finding. Correlate clinically for pulsatile tinnitus. Electronically Signed: Kadeem Cordova DO at 20:47 EDT , Physical Exam Const alert, oriented x3, no apparent distress and healthy appearing HEENT normocephalic, head/scalp atraumatic, hearing grossly normal bilaterally, exte rnal ears normal, external nose normal and moist oral mucous membranes Eyes PERRL, EOMs intact bilaterally, conjunctivae normal and no scleral icterus Neck no lymphadenopathy, supple and no JVD Resp Auscultation: clear to auscultation bilaterally Cardio regular rate, regular rhythm, S1 normal heart sound, S2 normal heart sound, no murmurs, no rub, no gallops, no clicks, no JVD and peripheral pulses 2+ throughout GI normal to inspection, nondistended, normoactive bowel sounds, soft to palpation, non-tender and non-distended Extremity normal to inspection, normal capillary refill, no clubbing, cyanosis or edema and no pedal edema Neuro oriented x3, CN's II-XII intact bilaterally, moves all extremities and no focal motor deficits Psych cooperative and affect normal Assessment & Plan Assessment/Plan (1) Acute on chronic diastolic HF (heart failure): (2) Paroxysmal atrial flutter: (3) Sick sinus syndrome: (4) Presence of cardiac pacemaker: PLAN: Plan * Patient's shortness of breath could have been related to his increased heart rate. Patient does have a history of atrial fibrillation. At home he had been on flecainide and a low-dose metoprolol. His low-dose metoprolol was not able to be increased with his tachybradycardia syndrome. He recently underwent a pacemaker placement. Feel that we can resume his flecainide and increase his metoprolol to 25 mg daily. * Patient's blood pressure is trending upwards. If his blood pressure tolerates restarting the metoprolol we will then restart his amlodipine. IV Lasix can also be resumed as a p.o.
[2022-12-03 09:40] VITALS: BP 137/53; PULSE 70; RESP 16; TEMP 36.3; O2SAT 97
[2022-12-03] MEDS: Furosemide 20 MG/2 ML VIAL IV (09:43)
[2022-12-03] MEDS: 0.9% Saline Lock 10 ML Syringe IV (09:43)
[2022-12-03] MEDS: Enoxaparin 40 MG/0.4 ML Syringe SC (09:43)
[2022-12-03 10:42] VITALS: PULSE 70
[2022-12-03] MEDS: Metoprolol(XL)Succ 25 MG Tablet PO (10:42)
[2022-12-03] MEDS: Flecainide 100 MG Tablet PO (10:42)
--- NOTE | 2022-12-03 11:23 | DCINST_ITS ---
Discharge Instructions Diet Discharge Diet: Low fat / Low cholesterol, 1800 Calorie Control Diet, 8 Cup Fluid Restriction and 2000 mg Sodium Diet Activity Discharge Activity: Return to Normal Activity Weight Bearing Status: Weight bearing as tolerated Dressing / Incision Call your doctor if you observe: Fever of 101 or Higher, Coldness, Increased Pain, Numbness or Tingling, Change in Color, Inability to urinate, Inability to have a bowel movement, Shortness of breath, Dizziness, Fainting spells, Swelling in the ankles, Chest pain, Prolonged hiccupping, Increased palpitations (irregular heartbeat) and Calf discomfort Follow Up Care When: IN 2 WEEKS Test Results: Test results from this visit will be discussed in further detail at your follow- up appointment, if applicable. Discharge Plan Admission Admit Date/Time: 12/02/22 11:17 Primary Reason for Your Visit: Acute on chronic diastolic heart failure. Attending Provider: Yogesh Scott Primary Care Provider: Tosha Shrestha Consulting Providers: Erich Garcia Discharge Orders/Prescriptions Prescriptions: New nitroglycerin 0.4 mg Tablet, Sublingual 0.4 mg sublingual Q5M PRN (Reason: Cardiac/Chest Pain) 30 Days Qty: 30 0RF sennosides-docusate sodium [Stool Softener-Stimulant Laxat] 8.6-50 mg Tablet 2 tab PO BID Qty: 0 0RF Continued dulaglutide 4.5 mg/0.5 mL pen injector 4.5 mg SC .COMPLEX Qty: 2 2RF Rx Instructions: 4.5 mg subcut every friday meclizine 25 mg tablet 25 mg PO TID PRN (Reason: dizziness) Qty: 90 0RF hydralazine 25 mg tablet 25 mg PO BID Label Comments: take 1 tablet by mouth twice a day hydralazine 50 mg tablet 50 mg PO BID progesterone micronized 100 mg capsule 100 mg PO QAM insulin glargine 100 unit/mL (3 mL) insulin pen 30 unit subcut QAM finasteride 5 mg tablet 5 mg PO DAILY Qty: 90 3RF atorvastatin 10 mg tablet 10 mg PO DAILY Qty: 90 1RF ergocalciferol (vitamin D2) 1,250 mcg (50,000 unit) capsule 50,000 unit PO QMONTH Qty: 14 1RF famotidine 20 mg tablet 20 mg PO DAILY Qty: 90 3RF ferrous sulfate 325 mg (65 mg iron) tablet 325 mg PO TH Qty: 90 1RF Rx Instructions: only flecainide 100 mg tablet 100 mg PO Q12H Qty: 180 2RF Hold Instructions: bradycardia 07/09 pramipexole [Mirapex] 1 mg tablet 2 mg PO QHS Qty: 180 3RF sertraline 25 mg tablet 25 mg PO DAILY Qty: 90 1RF Changed acetaminophen 500 mg Tablet 1,000 mg PO Q8H PRN PRN (Reason: Pain) Qty: 30 0RF furosemide 20 mg tablet 40 mg PO DAILY 30 Days Qty: 60 0RF Label Comments: take 1 tablet by mouth once daily Rx Instructions: Take an additional 40 mg dose at 5 PM for increased leg swelling or weight gain 5 pounds in 1 week. metoprolol succinate 25 mg tablet extended release 24 hr 25 mg PO DAILY Qty: 90 1RF Discontinued amlodipine 5 mg tablet 5 mg PO DAILY Qty: 90 0RF Referrals / Follow Up: Sajan Rogers MD [Med Staff - Active Staff] - Within 1 Month Tosha Shrestha MD [Primary Care Provider] - Disposition Disposition (needs filled in before D/C Order can be placed): Home Health Service
--- NOTE | 2022-12-03 11:30 | CASEMGMT ---
Patient is up ambulating in the hallways with a walker on his own. Patient will not qualify for [facility] stay. SW spoke with patient. Introduced self and role at [facility]. Patient stated he was going to go to a correction facility because he thought he had to. SIMONA explained it is his choice, however if he is up ambulating independently there really is no reason to go to the usp. Patient has no other skillable needs that need addressed in a [facility]p. Patient was in agreement with going home and resuming his home health. SIMONA notified physician. Naz ANGELES
[2022-12-03] MEDS: Insulin Glargine-YFGN 100 UNIT/ML Pen 10 UNIT SC (11:34)
[2022-12-03 11:55] LABS: Bedside Glucose 129 mg/dL (74-106)
--- NOTE | 2022-12-03 14:02 | DS.PCM_ITS ---
Providers Date of Admission: 12/02/22 Date of Discharge: 12/03/22 Primary Care Physician: Dr. Tosha Shrestha MD Consultations 12/02/22 12:21 Consult: Cardiology Routine Consulting Provider: Erich Garcia Reason for Consult: SOB, Gen weakness, atrial tachycardia on pacemaker interrogation EMERGENT Consult: No MD Notified: Yes Date Notified: 12/02/22 Time Notified: 12:21 Method of Notification: Verbal Reason For Visit: GEN WEAKNESS, SOB Diagnosis Discharge Diagnosis (1) Acute on chronic diastolic HF (heart failure): Status: Chronic Code(s): I50.33 - Acute on chronic diastolic (congestive) heart failure (2) Paroxysmal atrial flutter: Status: Chronic Code(s): I48.92 - Unspecified atrial flutter (3) Sick sinus syndrome: Status: Acute Code(s): I49.5 - Sick sinus syndrome (4) Presence of cardiac pacemaker: Status: Acute Code(s): Z95.0 - Presence of cardiac pacemaker Plan 82-year-old gentleman being admitted for mild shortness of breath on baseline chronic shortness of breath and atrial tachycardia. 1. Acute on chronic HFpEF: Patient had last echo on 11/10/2022 reported as EF 65% with no RWMA. LA moderately enlarged. Mild TR. PASP 36 mmHg. Patient has bilateral leg swelling, elevated BNP and gain of 10 pounds in 1 to 2 months and elevated BNP suggestive of acute on chronic HFpEF. Patient is started on Lasix. Heart failure core measures including intake and output, fluid restriction less than 1500 mL, daily weight monitoring, kidney and electrolytes monitoring. Chest x-ray done and does not show acute change. First troponin negative. Second troponin pending. Serum magnesium and phosphorus level normal. Bicarb 19. Anion gap 4. Patient had PT and OT and does not meet criteria for snf. Patient has independent living status. 2. Atrial tachycardia/dysrhythmia with history of paroxysmal A-fib on flecainide: Patient had pacemaker inserted on 10/14/2022. EKG in ED shows ventricular paced rhythm at 117 bpm. Pacemaker interrogation was done in the ED today. Pacemaker interrogation report shows DDD mode. Ventricular rate during AT/AF 86 to 70/min. There is 0 VT, NSVT and SVT episodes. 100% ventricular paced. Total PVC 17. Total PACs 123. Since last reset November 25, 2022, total AT/AF 2%, 153 events, average ventricular rate 68/min, total time in AT/AF 2.8 hours. [facility] consulted for further opinion 12/03: Patient was seen by manager technical support. Hold if heart rate less than 60/min and if persistently low between 60-70/m, can decrease the dose to 25 mg twice daily in consultation his PCP XL 12.5 mg increased to 25 mg daily. Shortness of b reath may be related to tachycardia, patient does have history of paroxysmal A- fib. Patient not on any blood thinners Because of history of GI bleed, iron deficiency anemia and peptic ulcer 3.? CKD stage IIIb: Patient baseline creatinine around 1.5, varies between 1.3- 1.75. Admitting BUN/creatinine 45/1.75.? Patient seems hypervolemic therefore will diurese with 12/03: Patient BUN/creatinine 42/1.61 better. Patient is discharged on furosemide 40 mg daily with instruction to take an additional 40 mg dose at 5 PM for increased leg swelling or weight gain 5 pounds in 1 week. Follow-up in card iology clinic. Amlodipine discontinued because it can give pedal edema and patient already on 1 vasodilator hydralazine 75 mg 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 Patient does not have pulsatile tinnitus. Does not need asymptomatic surveillance but patient has pulsatile tinnitus can follow with PCP. 4.? Paroxysmal A. fib/supraventricular arrhythmia history on flecainide: Twelve- lead EKG ordered.? Patient on flecainide 100 mg every 12 hourly.? He had mild QTC prolongation on previous admission in July 2021 when he was admitted for hypertensive urgency with vertigo and dizziness.? MRI of brain was negative for acute stroke. 5.? History of CAD-on statin, metoprolol.? Home medications continued 6. 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 Glucose is 210. On long-acting insulin 7.? Chronic iron deficiency anemia and anemia of chronic disease/CKD-on ferrous sulfate.? Patient follows sql programmer. Patient baseline hemoglobin 10.5/31.8%. He underwent EGD with dilatation on 07/03/2021 was found reflux esophagitis, low-grade status getting multiple nonbleeding duodenal ulcers with no stigmata of bleeding.? Patient follows Dr. Becerra, no acute issues. 8. MACHELLE-continue home CPAP 9. Restless leg syndrome-on Mirapex. 10. BPH-and history of kidney stone lithotripsy on finasteride and urge incontinence: Patient cannot hold urine. 11. Psoriatic arthritis and gout-patient last gout exacerbation was early this year. Currently does not have podagra or acute joint pain or swelling. 12 history of COVID-19 on March 17, 2022: The patient does not have active symptoms of COVID-19 including cough, fever, URI, loss of appetite.? 13 anxiety and depression: On Zoloft 14. VTE prophylaxis: On Lovenox 40 mill subcu daily Living will/advanced directive/end of life care: Patient does have living will or advanced directive. His is power of employee benefits attorney for health. After discussion of benefits/risks procedures involved with full code, DNR CC arrest and DNR CC, the patient and his opted for full code. Patient does want artificial life support including intubation, tube feed, ventilator and/chest compression, central venous catheter, vasopressor and DC shock if needed Living will advance directive was again discussed with the patient and his 2 times. I went through benefit and risk of full code including CPR and intubation, defibrillator shock and vasopressor. Palliative care consult to follow-up at home. Discussed with arsen Mary. Discharge medication reconciliation done. Discharge follow-up instructions completed. Discharge process discussed with the patient and all questions were answered to patient's satisfaction. Discharged home with home health care. Total time spent, exact 35 minutes on discharge meds reconciliation, examination, coordination of care with nurses and ancillary staff, review of imaging and blood test and discussion with the patient on follow-up instructions. Clinical Impression(s) from Imaging Studies Chest X-Ray 12/02/22 08:31 IMPRESSION: Borderline cardiomegaly. Stable mild increased linear markings at the lung bases slightly more prominent at the left lung base suggestive of atelectasis. Brain CT 12/02/22 19:08 IMPRESSION: No acute intracranial pathology. 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 This is usually incidental, asymptomatic finding. Correlate clinically for pulsatile tinnitus. Laboratory Results 12/02/22 08:02: WBC 7.2, RBC 3.36 L, Hgb 10.5 L, Hct 31.8 L, MCV 94.6 H, MCH 31.3, MCHC 33.0, RDW Std Deviation 46.2 H, RDW Coeff of Flavio 13.3, Plt Count 182, MPV 10.1, Immature Gran % (Auto) 0.600, Neut % (Auto) 65.9, Lymph % (Auto) 20.0, Lawrence % (Auto) 9.1, Eos % (Auto) 3.6, Baso % (Auto) 0.8, Absolute Neuts (auto) 4.7, Absolute Lymphs (auto) 1.43, Nucleated RBC % 0 12/02/22 08:02: Sodium 136, Potassium 4.3, Chloride 113 H, Carbon Dioxide 19.0 L , Anion Gap 4 L, BUN 45 H, Creatinine 1.75 H, Estim Creat Clear Calc 35.10, Est GFR (MDRD) Af Amer 48 L, Est GFR (MDRD) Non-Af 40 L, BUN/Creatinine Ratio 25.7 H , Glucose 210 H, Calcium 8.9, Phosphorus 3.5, Magnesium 2.0, Troponin I High Sens 44 12/02/22 08:02: B-Natriuretic Peptide 1061.5 H 12/02/22 12:41: Troponin I High Sens Pending Medications at Discharge Home Medications finasteride 5 mg tablet 5 mg PO DAILY PROSTATE #90 tabs 11/03/18 hydralazine 50 mg tablet 50 mg PO BID BP 10/06/22 insulin glargine 100 unit/mL (3 mL) subcutaneous pen 30 unit subcut QAM DM 10/06/22 progesterone micronized 100 mg capsule 100 mg PO QAM HORMONE 10/06/22 dulaglutide 4.5 mg/0.5 mL subcutaneous pen injector 4.5 mg (0.5 mL) subcut .COMPLEX DM #2 mL 10/24/22 meclizine 25 mg tablet 25 mg PO TID PRN dizziness #90 tabs 10/24/22 hydralazine 25 mg tablet 25 mg PO BID 11/26/22 ergocalciferol (vitamin D2) 1,250 mcg (50,000 unit) capsule 50,000 unit PO QMONTH SUPPLEMENT #14 caps 11/29/22 ferrous sulfate 325 mg (65 mg iron) tablet 325 mg PO TH supplement #90 tabs 11/29/22 flecainide 100 mg tablet 100 mg PO Q12H HEART RATE #180 tabs 11/29/22 pramipexole 1 mg tablet (Mirapex) 2 mg PO QHS RLS #180 tabs 11/29/22 sertraline 25 mg tablet 25 mg PO DAILY DEPRESSION #90 tabs 11/29/22 acetaminophen 500 mg tablet 1,000 mg PO Q8H PRN PRN Pain #30 tabs 12/03/22 atorvastatin 10 mg tablet 10 mg PO DAILY cholesterol 12/03/22 famotidine 20 mg tablet 20 mg PO DAILY reflux 12/03/22 furosemide 20 mg tablet 40 mg PO DAILY diuretic 30 days #60 tabs 12/03/22 metoprolol succinate 25 mg tablet,extended release 24 hr 25 mg PO DAILY BP #90 tabs 12/03/22 nitroglycerin 0.4 mg sublingual tablet 0.4 mg sublingual Q5M PRN Cardiac/Chest Pain 30 days #30 tabs 12/03/22 sennosides 8.6 mg-docusate sodium 50 mg tablet (Stool Softener-Stimulant Laxative) 2 tab PO BID #0 tabs 12/03/22 Physical Exam Narrative General: Alert, Oriented x3, Cooperative, morbid obesity BMI 39.0 kg/m? HEENT: Atraumatic, PERRLA, EOMI, Normocephalic Oral: Oral mucosa moist. No Gingival or Mucosal Lesions/ Ulcerations Neck: Supple, No JVD, Negative Carotid Bruits Lungs: Air entry diminished in bilateral lung bases. No crepitation/rhonchi Cardiovascular: Ventricular paced rhythm, Normal S1, Normal S2. Systolic murmur over right second ICS and LLSB Abdomen: Bowel Sounds Present, Soft, Non Tender, Non-Distended : No renal angle tenderness. No suprapubic tenderness. Extremities: 1+ below-knee pitting bilateral edema, Capillary Refill Less than 3 Seconds Skin: No rashes, No breakdown Musculoskeletal: No Tenderness to Palpation of Joints or Extremities. ROM restricted. Muscle strength 4+/5. Bilateral hips and knee joints. No gouty flare. Neurological: Cranial nerves II-XII grossly intact, DTR 2+/4 and Symmetrical, Neuro grossly intact Psych/Mental Status: Flat affect Weight / BMI Weight Weight: 274 lb 14.663 oz Body Mass Index (BMI) 37.3 ABG / Lab / Microbiology Data Result Diagrams: 12/03/22 03:47 12/03/22 03:47 Laboratory: Laboratory Results - last 24 hr 12/02/22 17:13: POC Glucose 174 H 12/02/22 22:45: POC Glucose 126 H 12/03/22 03:47: WBC 7.3, RBC 3.11 L, Hgb 9.5 L, Hct 29.3 L, MCV 94.2 H, MCH 30.5, MCHC 32.4, RDW Std Deviation 45.7 H, RDW Coeff of Flavio 13.2, Plt Count 183, MPV 9.9, Immature Gran % (Auto) 0.400, Neut % (Auto) 69.4, Lymph % (Auto) 16.2 L , Lawrence % (Auto) 9.7, Eos % (Auto) 3.6, Baso % (Auto) 0.7, Absolute Neuts (auto) 5.1, Absolute Lymphs (auto) 1.18, Nucleated RBC % 0 12/03/22 03:47: Sodium 138, Potassium 4.5, Chloride 112 H, Carbon Dioxide 22.0, Anion Gap 4 L, BUN 42 H, Creatinine 1.61 H, Estim Creat Clear Calc 38.16, Est GFR (MDRD) Af Amer 53 L, Est GFR (MDRD) Non-Af 44 L, BUN/Creatinine Ratio 26.1 H , Glucose 109 H, Calcium 8.4 L, TSH 1.02 12/03/22 06:30: POC Glucose 102 12/03/22 11:33: POC Glucose 129 H Radiography Diagnostic Testing: Radiology Impression Brain CT 12/02/22 19:08 IMPRESSION: No acute intracranial pathology. 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 This is usually incidental, asymptomatic finding. Correlate clinically for pulsatile tinnitus. Electronically Signed: Kadeem Cordova DO at 20:47 EDT , D/C Instructions Discharge Diet: Low fat / Low cholesterol, 1800 Calorie Control Diet, 8 Cup Fluid Restriction and 2000 mg Sodium Diet Weight Bearing Status: Weight bearing as tolerated Call your doctor if you observe: Fever of 101 or Higher, Coldness, Increased Pain, Numbness or Tingling, Change in Color, Inability to urinate, Inability to have a bowel movement, Shortness of breath, Dizziness, Fainting spells, Swelling in the ankles, Chest pain, Prolonged hiccupping, Increased palpitations (irregular heartbeat) and Calf discomfort When: IN 2 WEEKS Meaningful Use Info Meaningful Use Diagnoses (Choose all that apply): None applicable Discharge Plan Admission Admit Date/Time: 12/02/22 11:17 Primary Reason for Your Visit: Acute on chronic diastolic heart failure. Attending Provider: Yogesh Scott Primary Care Provider: Tosha Shrestha Consulting Providers: Erich Garcia Discharge Orders/Prescriptions Prescriptions: New nitroglycerin 0.4 mg Tablet, Sublingual 0.4 mg sublingual Q5M PRN (Reason: Cardiac/Chest Pain) 30 Days Qty: 30 0RF sennosides-docusate sodium [Stool Softener-Stimulant Laxat] 8.6-50 mg Tablet 2 tab PO BID Qty: 0 0RF Continued dulaglutide 4.5 mg/0.5 mL pen injector 4.5 mg SC .COMPLEX Qty: 2 2RF Rx Instructions: 4.5 mg subcut every friday meclizine 25 mg tablet 25 mg PO TID PRN (Reason: dizziness) Qty: 90 0RF hydralazine 25 mg tablet 25 mg PO BID Label Comments: take 1 tablet by mouth twice a day hydralazine 50 mg tablet 50 mg PO BID progesterone micronized 100 mg capsule 100 mg PO QAM insulin glargine 100 unit/mL (3 mL) insulin pen 30 unit subcut QAM finasteride 5 mg tablet 5 mg PO DAILY Qty: 90 3RF atorvastatin 10 mg tablet 10 mg PO DAILY Qty: 90 1RF ergocalciferol (vitamin D2) 1,250 mcg (50,000 unit) capsule 50,000 unit PO QMONTH Qty: 14 1RF famotidine 20 mg tablet 20 mg PO DAILY Qty: 90 3RF ferrous sulfate 325 mg (65 mg iron) tablet 325 mg PO TH Qty: 90 1RF Rx Instructions: only flecainide 100 mg tablet 100 mg PO Q12H Qty: 180 2RF Hold Instructions: bradycardia 07/09 pramipexole [Mirapex] 1 mg tablet 2 mg PO QHS Qty: 180 3RF sertraline 25 mg tablet 25 mg PO DAILY Qty: 90 1RF Changed acetaminophen 500 mg Tablet 1,000 mg PO Q8H PRN PRN (Reason: Pain) Qty: 30 0RF furosemide 20 mg tablet 40 mg PO DAILY 30 Days Qty: 60 0RF Label Comments: take 1 tablet by mouth once daily Rx Instructions: Take an additional 40 mg dose at 5 PM for increased leg swelling or weight gain 5 pounds in 1 week. metoprolol succinate 25 mg tablet extended release 24 hr 25 mg PO DAILY Qty: 90 1RF Discontinued amlodipine 5 mg tablet 5 mg PO DAILY Qty: 90 0RF Referrals / Follow Up: Sajan Rogers MD [Med Staff - Active Staff] - Within 1 Month Tosha Shrestha MD [Primary Care Provider] - Disposition Disposition (needs filled in before D/C Order can be placed): Home Health Service Charges/Coding Visit Charges Inpatient E&M: 58730 Disch Hosp >30min
[2022-12-03 14:12] VITALS: BP 110/74; PULSE 70; RESP 16; TEMP 36.4; O2SAT 96
--- NOTE | 2022-12-03 14:19 | CASEMGMT ---
TIMOTHY LOPEZ in to complete KINNEY form with patient. TIMOTHY LOPEZ explained KINNEY Form to patient and , patient voiced understanding. Patient requested to sign form. signed KINNEY form and filed in chart. Patient provided copy of signed KINNEY form. Patient wishes to return home with resumption of HHC with [facility], patient declined list of HHC agencies. TIMOTHY LOPEZ updated [facility] of discharge to home today and added usp to services. TIMOTHY LOPEZ updated patient. Patient had no further questions or concerns at this time. TIMOTHY LOPEZ updated by hospitalist requesting palliative consult. Order recieved, screening tool completed, and referral sent to [facility] via email
--- NOTE | 2022-12-03 14:42 | PHA.DC.MC ---
Pharmacy Service has performed discharge medication reconciliation and counseling for this patient. 1. NITROGLYCERIN 0.4MG SL Q5MIN PRN CHEST PAIN 2. SENNA/DOCUSATE 2T PO BID The patient's discharge medication list was reviewed for discrepancies and discrepancies were resolved. Home Medications finasteride 5 mg tablet 5 mg PO DAILY PROSTATE #90 tabs 11/03/18 hydralazine 50 mg tablet 50 mg PO BID BP 10/06/22 insulin glargine 100 unit/mL (3 mL) subcutaneous pen 30 unit subcut QAM DM 10/06/22 progesterone micronized 100 mg capsule 100 mg PO QAM HORMONE 10/06/22 dulaglutide 4.5 mg/0.5 mL subcutaneous pen injector 4.5 mg (0.5 mL) subcut .COMPLEX DM #2 mL 10/24/22 meclizine 25 mg tablet 25 mg PO TID PRN dizziness #90 tabs 10/24/22 hydralazine 25 mg tablet 25 mg PO BID blood pressure 11/26/22 ergocalciferol (vitamin D2) 1,250 mcg (50,000 unit) capsule 50,000 unit PO QMONTH SUPPLEMENT #14 caps 11/29/22 ferrous sulfate 325 mg (65 mg iron) tablet 325 mg PO TH supplement #90 tabs 11/29/22 flecainide 100 mg tablet 100 mg PO Q12H HEART RATE #180 tabs 11/29/22 pramipexole 1 mg tablet (Mirapex) 2 mg PO QHS RLS #180 tabs 11/29/22 sertraline 25 mg tablet 25 mg PO DAILY DEPRESSION #90 tabs 11/29/22 acetaminophen 500 mg tablet 1,000 mg PO Q8H PRN PRN Pain #30 tabs 12/03/22 atorvastatin 10 mg tablet 10 mg PO DAILY cholesterol 12/03/22 famotidine 20 mg tablet 20 mg PO DAILY reflux 12/03/22 furosemide 20 mg tablet 40 mg PO DAILY diuretic 30 days #60 tabs 12/03/22 metoprolol succinate 25 mg tablet,extended release 24 hr 25 mg PO DAILY BP #90 tabs 12/03/22 nitroglycerin 0.4 mg sublingual tablet 0.4 mg sublingual Q5M PRN Cardiac/Chest Pain 30 days #30 tabs 12/03/22 sennosides 8.6 mg-docusate sodium 50 mg tablet (Stool Softener-Stimulant Laxative) 2 tab PO BID #0 tabs 12/03/22 The patient was counseled on the following discharge medications and changes in medications for homegoing were reviewed. The Reason for Use, instructions for use, and potential side effects were reviewed for all new medications. The patient's questions regarding all of their medications were answered. The patient was able to verbally demonstrate an understanding of their discharge medications.
== END 2022-12-03 14:01 | disposition home health service (06) ==
LOC: ED 11:09 → PCU 11:26
PROVIDERS: Admitting Provider Internal Medicine; Emergency Provider Emergency Medicine; PCP Internal Medicine; Visit Provider Internal Medicine
DX: I13.0 Hypertensive heart and chronic kidney disease with heart failure and stage 1 through stage 4 chronic kidney disease, or unspecified chronic kidney disease (principal); I50.33 Acute on chronic diastolic (congestive) heart failure; E11.42 Type 2 diabetes mellitus with diabetic polyneuropathy; E11.22 Type 2 diabetes mellitus with diabetic chronic kidney disease; I49.5 Sick sinus syndrome; I48.92 Unspecified atrial flutter; I47.1 Supraventricular tachycardia; Z79.4 Long term (current) use of insulin; N18.32 Chronic kidney disease, stage 3b; I25.10 Atherosclerotic heart disease of native coronary artery without angina pectoris; D50.0 Iron deficiency anemia secondary to blood loss (chronic); Z95.0 Presence of cardiac pacemaker; D63.1 Anemia in chronic kidney disease; H91.90 Unspecified hearing loss, unspecified ear; Z86.16 Personal history of COVID-19; E78.5 Hyperlipidemia, unspecified; N40.1 Benign prostatic hyperplasia with lower urinary tract symptoms; Z79.899 Other long term (current) drug therapy; Z86.718 Personal history of other venous thrombosis and embolism; F41.8 Other specified anxiety disorders; G47.33 Obstructive sleep apnea (adult) (pediatric); G25.81 Restless legs syndrome; N39.41 Urge incontinence
CPT/HCPCS: 36415; 70450; 71045; 80048; 82962; 83735; 83880; 84100; 84443; 84484; 85025; 93005; 93288; 94668; 96372; 96374; 96376; 97802; 99221; 99285; J7040; A4216; G0378; J1940

== ENCOUNTER 2022-12-07 17:19 | Inpatient (IN) | payer MEDICARE, BC, SELFPAY ==
[2022-12-07] VITALS (14 sets, daily range): BP systolic 102–117; BP diastolic 66–78; PULSE 112–122; RESP 18–28; TEMP 36.1–37.1; O2SAT 92–98; BMI 38.6; BMI 38.0
--- NOTE | 2022-12-07 17:35 | EKG12_ITS ---
Test Reason : SOB Blood Pressure : / mmHG Vent. Rate : 123 BPM Atrial Rate : 123 BPM P-R Int : 190 ms QRS Dur : 060 ms QT Int : 408 ms P-R-T Axes : 000 256 104 degrees QTc Int : 584 ms Atrial-paced rhythm Possible Right ventricular hypertrophy Lateral infarct , possibly acute Inferior infarct , possibly acute Anterior injury pattern Abnormal ECG Confirmed by JORDIN DUNCAN, SYBIL ([id number]), film and video editor NITZA ROJAS ([id number]) on 12/09/2022 11:21:58 AM Referred By: Confirmed By:SYBIL BRENNER MD
--- NOTE | 2022-12-07 17:45 | RAD_ITS ---
INDICATION: chest pain EXAMINATION/TECHNIQUE: X-RAY - XR Chest 2 Views COMPARISON: None. FINDINGS: The lungs are unchanged. The cardiomediastinal silhouette is stable. Left-sided cardiac device. No pleural effusion or pneumothorax. The osseous structures are unchanged. RAD/Chest PA and Lateral IMPRESSION: No change from prior study. Electronically Signed: Alfredo Perez MD at 18:41 EDT ,
[2022-12-07 17:46] LABS: Absolute Neutrophil Count 6.7 X10^3/uL (2.0-7.7); Basophil# 0.07 X10^3/uL; Basophil% 0.8 % (0-1); Eosinophil# 0.05 X10^3/uL; Eosinophils% 0.6 % (0-5); Hematocrit 34.4 % (40-54); Hemoglobin 11.1 g/dL (13.0-16.5); Lymphocyte % 16.5 % (19-41); Mean Corp Hgb Conc 32.3 g/dL (32-36); Mean Corpuscular Hgb 30.9 pg (27.0-32.0); Mean Corpuscular Volume 95.8 fL (80-94); Mean Platelet Vol. 10.1 fl (6.2-12.0); Monocyte# 0.74 X10^3/uL; Monocyte% 8.1 % (0-10); NRBC Flagged by Analyzer 0 % (0-5); Neutrophil # 6.66 X10^3/uL (2.7-7.7); Neutrophil % 73.3 % (47-70); Platelet Count 250 K/mm3 (150-450); RBC Distribution Width CV 13.6 % (11.6-14.6); RBC Distribution Width SD 48.1 fl (35.1-43.9); Red Blood Count 3.59 M/mm3 (4.6-6.2); White Blood Count 9.1 K/mm3 (4.4-11.0)
[2022-12-07 18:08] LABS: Anion Gap 7 (5-15); BUN 74 mg/dL (7-18); BUN/Creat Ratio 23.3 RATIO (10-20); Calcium,Total 8.7 mg/dL (8.5-10.1); Chloride 108 mmol/L (98-107); Creatinine, Serum 3.18 mg/dL (0.70-1.30); EST Glomerular Filtration Rate 20 mL/min (>60); Est Glom Filt Rate - Afr Amer 24 mL/min (>60); Estimated Creatinine Clearance 19.32 ml/min; Glucose 249 mg/dL (74-106); Potassium 5.1 mmol/L (3.5-5.1); Sodium Level 132 mmol/L (136-145); Troponin-I HS (w/2H Reflex) 48 pg/mL (3.0-78.0)
[2022-12-07 18:09] LABS: BNP,B-Type NATRIURETIC PEPTIDE 1457.9 pg/mL (0-100)
[2022-12-07] MEDS: Metoprolol Tartrate 5 MG/5 ML Vial IV (18:19)
--- NOTE | 2022-12-07 18:32 | ED.VIS.DYS ---
HPI <JOSEPHINE Devlin - Last Filed: 12/07/22 21:49> History of Present Illness Chief Complaint: Shortness of Breath Narrative Narrative: Patient presenting today with shortness of breath that started last night. He states that yesterday he had a callus shaved down on his toe by his bottler and was placed on doxycycline. He took his first dose last night and then about an hour later became short of breath at rest. He states that he had a difficult time sleeping and had to prop up on his left side so that he could breathe. Shortness of breath is worsened by ambulation and with laying flat. He called his bottler this morning who advised he discontinue that medication, however, patient felt he should come to the emergency department due to his symptoms. Patient denies any fever, chills, chest pain, abdominal pain, nausea, vomiting. He does have a history of a DVT that occurred several years ago after a surgery and is not on any blood thinners. He denies any chronic lung conditions such as asthma or COPD. [facility] <JOSEPHINE Devlin - Last Filed: 12/07/22 21:49> [facility] Medical History (HFpEF) heart failure with preserved ejection fraction (12/12/20) Acute on chronic diastolic HF (heart failure) Acute respiratory failure with hypoxia Anemia Anemia of chronic renal failure, stage 3 (moderate) Anxiety and depression Atherosclerotic heart disease of [place] coronary artery without angina pectoris Atrial flutter Atypical chest pain Back pain BMI 34.0-34.9,adult BPH (benign prostatic hyperplasia) BPPV (benign paroxysmal positional vertigo) Bradycardia Cardiac dysrhythmia Cardiology follow-up encounter CHF (congestive heart failure) CHF (congestive heart failure) De Quervain's tenosynovitis Debility Depression Dermatitis Diabetes mellitus Diabetic kidney disease Dizziness DM type 2 with diabetic peripheral neuropathy DVT (deep venous thrombosis) Dyslipidemia Dysphagia Essential (primary) hypertension Fall Flu vaccine need Fracture of great toe Gastric reflux Gout Gout flare Health care maintenance History of echocardiogram History of edema History of GI bleed History of peptic ulcer History of renal calculi History of ulceration HLD (hyperlipidemia) Injury of head and neck Iron deficiency anemia Iron deficiency anemia due to chronic blood loss Kidney hematoma (12/08/20) Left knee pain Left leg DVT Loss of equilibrium Low iron Malaise Near syncope Orthostatic hypotension MACHELLE (obstructive sleep apnea) Pain of left lower extremity Paroxysmal atrial fibrillation Paroxysmal atrial flutter Pneumonia Polypharmacy 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 Presence of cardiac pacemaker Prostate disease Psoriasis Recurrent syncope (06/19/22) Renal calculi RLS (restless legs syndrome) Sex disorder Sick sinus syndrome Suicidal ideation SVT (supraventricular tachycardia) TIA (transient ischemic attack) Type 2 diabetes mellitus with diabetic polyneuropathy Urolithiasis Venous insufficiency of both lower extremities Vertigo Walker as ambulation aid Wears glasses Home Medications finasteride 5 mg tablet 5 mg PO DAILY PROSTATE #90 tabs 11/03/18 [Rx Last Taken 11/30/22] insulin glargine 100 unit/mL (3 mL) subcutaneous pen 30 unit subcut QAM DM 10/06/22 [History Last Taken 11/29/22] progesterone micronized 100 mg capsule 100 mg PO QAM HORMONE 10/06/22 [History Last Taken 11/30/22] dulaglutide 4.5 mg/0.5 mL subcutaneous pen injector 4.5 mg (0.5 mL) subcut .COMPLEX DM #2 mL 10/24/22 [Rx Last Taken 11/29/22] meclizine 25 mg tablet 25 mg PO TID PRN dizziness #90 tabs 10/24/22 [Rx Last Taken 11/29/22] ergocalciferol (vitamin D2) 1,250 mcg (50,000 unit) capsule 50,000 unit PO QMONTH SUPPLEMENT #14 caps 11/29/22 [Rx Last Taken 11/16/22] ferrous sulfate 325 mg (65 mg iron) tablet 325 mg PO TH supplement #90 tabs 11/29/22 [Rx Last Taken 11/28/22] flecainide 100 mg tablet 100 mg PO Q12H HEART RATE #180 tabs 11/29/22 [Rx Last Taken 11/30/22] pramipexole 1 mg tablet (Mirapex) 2 mg PO QHS RLS #180 tabs 11/29/22 [Rx Last Taken 11/29/22] acetaminophen 500 mg tablet 1,000 mg PO Q8H PRN PRN Pain #30 tabs 12/03/22 [Rx Last Taken 11/29/22] atorvastatin 10 mg tablet 10 mg PO QHS cholesterol 12/03/22 [History Last Taken Unknown] nitroglycerin 0.4 mg sublingual tablet 0.4 mg sublingual Q5M PRN Cardiac/Chest Pain 30 days #30 tabs 12/03/22 [Rx Last Taken Unknown] sennosides 8.6 mg-docusate sodium 50 mg tablet (Stool Softener-Stimulant Laxative) 2 tab PO BID #0 tabs 12/03/22 [Rx Last Taken Unknown] famotidine 40 mg tablet 20 mg PO DAILY 12/06/22 [History Last Taken Unknown] doxycycline hyclate 100 mg tablet 100 mg PO BID 12/07/22 [History Last Taken Unknown] furosemide 20 mg tablet 20 mg PO DAILY diuretic 12/07/22 [History Last Taken Unknown] hydralazine 50 mg tablet 25 mg PO BID 12/07/22 [History Last Taken Unknown] insulin glargine-yfgn 100 unit/mL (3 mL) subcutaneous pen (Semglee (insulin glargine-yfgn) Pen) 30 unit subcut DAILY 12/07/22 [History Last Taken Unknown] loratadine 10 mg tablet 10 mg PO DAILY 12/07/22 [History Last Taken Unknown] metoprolol succinate 25 mg tablet,extended release 24 hr 12.5 mg PO DAILY BP 12/07/22 [History Last Taken Unknown] sertraline 25 mg tablet 37.5 mg PO DAILY DEPRESSION 12/07/22 [History Last Taken Unknown] Allergy/AdvReac Type Severity Reaction Status Date / Time hydrocodone bitartrate AdvReac Severe Other Verified 12/07/22 17:36 [From Vicodin] hydroxyzine AdvReac Severe Other Verified 12/07/22 17:36 Family History Father Diabetes Hypertension Cancer Lung cancer Mother Hypertension CVA (cerebral vascular accident) Sister Diabetes Son Diabetes Surgical History History of cardioversion (2015) History of cataract surgery History of left heart catheterization (02/16/13) History of lithotripsy (11/2020) History of loop recorder (06/26/22) History of radiofrequency ablation procedure for cardiac arrhythmia (02/05/06) history of right knee cap fracture History of right knee surgery Status post laser lithotripsy of ureteral calculus Status post left foot surgery STENT PLACEMENT FOR KIDNEY STONE Social History household members: spouse housing: house Smoking Status: Never smoker how long ago did patient quit smokin second hand exposure: No alcohol intake: never substance use type: does not use caffeine: No what type of physical activity do you participate in: none seatbelt use: always do you feel safe at home: Yes ROS <JOSEPHINE Devlin - Last Filed: 12/07/22 21:49> ROS ED Constitutional Constitutional ED: Denies chills or fever(s) ENT ENT ED: Denies rhinorrhea or sore throat Cardiovascular Cardiovascular: Reports orthopnea; Denies chest pain or palpitations Respiratory/Chest Respiratory/Chest: Reports dyspnea, dyspnea on exertion and orthopnea; Denies cough Gastrointestinal Gastrointestinal: Denies abdominal pain, nausea or vomiting Musculoskeletal Musculoskeletal: Denies arthralgias or myalgias Integumentary Denies abscess, Abrasions or rash Neurologic Neurologic: Reports weakness; Denies dizziness Psychiatric Psychiatric: Denies anxiety or depression EXAM <JOSEPHINE Devlin - Last Filed: 12/07/22 21:49> Physical Exam Const Vital Signs: 12/07/22 17:19 12/07/22 17:28 12/07/22 17:34 Temperature 98.7 F 98.7 F Temperature Source Temporal Oral Pulse Rate 122 H 112 H Respiratory Rate 22 H 18 Respiratory Effort Short of Breath Labored Respiratory Depth Shallow Respiratory Pattern Normal Blood Pressure 113/78 111/76 Blood Pressure Mean 89 87 Pulse Ox 98 97 Oxygen Delivery Method Room Air Room Air Room Air 12/07/22 17:38 12/07/22 18:19 12/07/22 19:01 Temperature Temperature Source Pulse Rate 122 H 116 H Respiratory Rate 28 H 22 H Respiratory Effort Respiratory Depth Respiratory Pattern Blood Pressure 117/77 105/71 Blood Pressure Mean 90 82 Pulse Ox 97 97 92 Oxygen Delivery Method Room Air Room Air 12/07/22 19:21 12/07/22 20:37 Temperature 98.8 F 97 F L Temperature Source Oral Temporal Pulse Rate 114 H 113 H Respiratory Rate 18 18 Respiratory Effort Respiratory Depth Respiratory Pattern Blood Pressure 102/74 106/78 Blood Pressure Mean 83 87 Pulse Ox 96 96 Oxygen Delivery Method Room Air Room Air Positive well nourished and well developed General Appearance ED: well developed HEENT Reports normocephalic and head/scalp atraumatic Mouth ED: Yes moist mucous membranes normal Eyes PERRL and EOMs intact bilaterally Neck full ROM and supple Chest Wall inspection of chest normal Resp clear to auscultation bilaterally Resp Narrative: Tachypnea. Cardio regular rate and regular rhythm GI soft to palpation, non-tender, non-distended and no masses Back/Spine normal ROM and normal to inspection Extremity normal to inspection and full ROM Neuro oriented x3, CN's II-XII intact bilaterally, moves all extremities, no focal motor deficits and no sensory deficits noted Sensorium / Orientation: awake and alert Motor Exam: strength 5/5 throughout Psych mental status grossly normal and thought process normal Skin no rashes or lesions noted and no wounds <Dr. Manohar Trevino MD - Last Filed: 12/07/22 21:52> Physical Exam Const Vital Signs: 12/07/22 17:19 12/07/22 17:28 12/07/22 17:34 Temperature 98.7 F 98.7 F Temperature Source Temporal Oral Pulse Rate 122 H 112 H Respiratory Rate 22 H 18 Respiratory Effort Short of Breath Labored Respiratory Depth Shallow Respiratory Pattern Normal Blood Pressure 113/78 111/76 Blood Pressure Mean 89 87 Pulse Ox 98 97 Oxygen Delivery Method Room Air Room Air Room Air 12/07/22 17:38 12/07/22 18:19 12/07/22 19:01 Temperature Temperature Source Pulse Rate 122 H 116 H Respiratory Rate 28 H 22 H Respiratory Effort Respiratory Depth Respiratory Pattern Blood Pressure 117/77 105/71 Blood Pressure Mean 90 82 Pulse Ox 97 97 92 Oxygen Delivery Method Room Air Room Air 12/07/22 19:21 12/07/22 20:37 Temperature 98.8 F 97 F L Temperature Source Oral Temporal Pulse Rate 114 H 113 H Respiratory Rate 18 18 Respiratory Effort Respiratory Depth Respiratory Pattern Blood Pressure 102/74 106/78 Blood Pressure Mean 83 87 Pulse Ox 96 96 Oxygen Delivery Method Room Air Room Air MDM <JOSEPHINE Devlin - Last Filed: 12/07/22 21:49> [facility] Narrative Medical decision making narrative: Patient presenting with SOB that started last night shortly after taking his first dose of doxycycline. However, patient has been seen in the emergency department several times over the past month. He has a history of sick sinus syndrome and had a pacemaker placed with Dr. Rogers this year. Patient presented on 11/10/22 and was admitted for an HORACE and chest pain. He then presented on 11/30/22 with shortness of breath. At that time, CTA of the chest was performed and was negative for any PE and was admitted. Patient then presented again 12/02/22 with heart palpitations and shortness of breath and was ultimately admitted. Labs have been obtained to rule out leukocytosis, anemia, assess kidney function, rule out electrolyte abnormality, rule out ACS. Chest x-ray obtained to rule out pneumothorax, infiltrate, pleural effusion, and other cardiopulmonary abnormality and is negative for any acute findings. Labs are remarkable for hyponatremia and an HORACE. Patient has elevated BNP compared to prior visit. Patient recently had a CTA performed 11/30, he is presenting with similar symptoms, I do not feel that it is necessary to obtain this again or a D-dimer. He is tachycardic, he has been given metoprolol. There are some concerns that patient could possibly be in atrial flutter. However, he will be admitted to the hospital for further evaluation in stable condition. Lab Data Attestation: I reviewed the patient's lab results. Lab results narrative: H&H 11.1 and 34.4, the month 2, BUN 74, creatinine 3.188, GFR 20, glucose 249, BNP 1457. Labs: Laboratory Results - last 24 hr 12/07/22 12/07/22 12/07/22 17:34 17:34 17:34 WBC 9.1 RBC 3.59 L Hgb 11.1 L Hct 34.4 L MCV 95.8 H MCH 30.9 MCHC 32.3 RDW Std Deviation 48.1 H RDW Coeff of Flavio 13.6 Plt Count 250 MPV 10.1 Immature Gran % (Auto) 0.700 Neut % (Auto) 73.3 H Lymph % (Auto) 16.5 L Wilbarger % (Auto) 8.1 Eos % (Auto) 0.6 Baso % (Auto) 0.8 Absolute Neuts (auto) 6.7 Absolute Lymphs (auto) 1.50 Nucleated RBC % 0 Sodium 132 L Potassium 5.1 Chloride 108 H Carbon Dioxide 17.0 L Anion Gap 7 BUN 74 H Creatinine 3.18 H Estim Creat Clear Calc 19.32 Est GFR (MDRD) Af Amer 24 L Est GFR (MDRD) Non-Af 20 L BUN/Creatinine Ratio 23.3 H Glucose 249 H Calcium 8.7 Troponin I High Sens 48 B-Natriuretic Peptide 1457.9 H 12/07/22 19:44 WBC RBC Hgb Hct MCV MCH MCHC RDW Std Deviation RDW Coeff of Flavio Plt Count MPV Immature Gran % (Auto) Neut % (Auto) Lymph % (Auto) Wilbar[place] % (Auto) Eos % (Auto) Baso % (Auto) Absolute Neuts (auto) Absolute Lymphs (auto) Nucleated RBC % Sodium Potassium Chloride Carbon Dioxide Anion Gap BUN Creatinine Estim Creat Clear Calc Est GFR (MDRD) Af Amer Est GFR (MDRD) Non-Af BUN/Creatinine Ratio Glucose Calcium Troponin I High Sens 60 B-Natriuretic Peptide Radiography Chest X-Ray - ED: Read by ED Physician and Read by Radiologist Diagnostic Testing: Clinical Impression(s) from Imaging Studies Chest X-Ray 12/07/22 17:45 IMPRESSION: No change from prior study. Electronically Signed: Alfredo Perez MD at 18:41 EDT , <Dr. Manohar Trevino MD - Last Filed: 12/07/22 21:52> [facility] Lab Data Labs: Laboratory Results - last 24 hr 12/07/22 12/07/22 12/07/22 17:34 17:34 17:34 WBC 9.1 RBC 3.59 L Hgb 11.1 L Hct 34.4 L MCV 95.8 H MCH 30.9 MCHC 32.3 RDW Std Deviation 48.1 H RDW Coeff of Flavio 13.6 Plt Count 250 MPV 10.1 Immature Gran % (Auto) 0.700 Neut % (Auto) 73.3 H Lymph % (Auto) 16.5 L Wilbarger % (Auto) 8.1 Eos % (Auto) 0.6 Baso % (Auto) 0.8 Absolute Neuts (auto) 6.7 Absolute Lymphs (auto) 1.50 Nucleated RBC % 0 Sodium 132 L Potassium 5.1 Chloride 108 H Carbon Dioxide 17.0 L Anion Gap 7 BUN 74 H Creatinine 3.18 H Estim Creat Clear Calc 19.32 Est GFR (MDRD) Af Amer 24 L Est GFR (MDRD) Non-Af 20 L BUN/Creatinine Ratio 23.3 H Glucose 249 H Calcium 8.7 Troponin I High Sens 48 B-Natriuretic Peptide 1457.9 H 12/07/22 19:44 WBC RBC Hgb Hct MCV MCH MCHC RDW Std Deviation RDW Coeff of Flavio Plt Count MPV Immature Gran % (Auto) Neut % (Auto) Lymph % (Auto) Wilbarger % (Auto) Eos % (Auto) Baso % (Auto) Absolute Neuts (auto) Absolute Lymphs (auto) Nucleated RBC % Sodium Potassium Chloride Carbon Dioxide Anion Gap BUN Creatinine Estim Creat Clear Calc Est GFR (MDRD) Af Amer Est GFR (MDRD) Non-Af BUN/Creatinine Ratio Glucose Calcium Troponin I High Sens 60 B-Natriuretic Peptide Radiography Diagnostic Testing: Clinical Impression(s) from Imaging Studies Chest X-Ray 12/07/22 17:45 IMPRESSION: No change from prior study. Electronically Signed: Alfredo Perez MD at 18:41 EDT , EKG Initial EKG: Comments: My independent interpretation is patient's EKG done for dyspnea and increased heart rate shows paced rhythm with a rate about 120s difficult to interpret beyond that. There certainly could be a paced rhythm relating to an underlying flutter but this is not verified. Cannot in interpret if this is a STEMI but his symptoms do not quite match that. This EKG is similar to his prior. Treatment and Re-Evaluation :: I have personally performed a face to face assessment of the patient and have reviewed the PEPE Note. I performed a substantive portion of the visit including all aspects of the following. My frederick findings include: History: Patient presents with dyspnea. It sounds like this happened relatively quickly last night. He attributed to taking doxycycline. But the symptoms started about an hour and a half later and he has no rash. He has never had chest pain. He just feels like he suddenly loses energy and he is short of breath. This is happened a few times recently and he has been admitted. Although he is tachycardic he does not feel chest pain or palpitations. He has never had a PE although he had a DVT many many years ago. He just had a CTA about a week ago for the symptoms. Although he has a history of intermittent A-fib and flutter, I do not see that he is on anticoagulation. He is on flecainide he has a pacer and he is also on metoprolol. He states he is taking these meds. Exam: Patient is tachycardic with a rate about 120-125. His lungs actually sound clear. He is not hypoxic. But he does look a little bit winded. No pain with a deep breath. He is not coughing. He does have some peripheral edema. But this is evidently baseline Medical Decision Making: Patient's EKG is paced. I wonder if there is an underlying flutter with 2-1 block. It is extremely regular and tachycardic. He had this when he came in last time. But then his heart rate went down to 70s and he was asymptomatic. Discharge Plan Dx/Rx/DC Orders Clinical Impression: SOB (shortness of breath), HORACE (acute kidney injury), CHF (congestive heart failure), Tachycardia Disposition Disposition: Acute Care Hospital [facility]
[2022-12-07 19:44] LABS: Reflex Troponin-HS? (from REC) Y
[2022-12-07 20:12] LABS: Troponin-I HS 60 pg/mL (3.0-78.0)
--- NOTE | 2022-12-07 21:30 | RAD_ITS ---
INDICATION: infection EXAMINATION/TECHNIQUE: X-RAY - LEFT XR Foot Min 3 Views 3 VIEWS COMPARISON: 09/20/2022 FINDINGS: SOFT TISSUES: No soft tissue swelling or gas. Stable hardware from the hindfoot arthrodesis. No pathologic lucency. BONES/JOINTS: No acute fracture or subluxation.. Joint spaces anatomically aligned. No sclerotic or destructive changes observed. RAD/Foot min 3 Views IMPRESSION: Stable examination without cortical destruction to suggest osteomyelitis. Electronically Signed: Daniel Xiao MD at 22:32 EDT ,
--- NOTE | 2022-12-07 21:56 | HP.PCM.HOS_ITS ---
HPI - General General Date of Admission: 12/07/22 Date of Service: 12/07/22 Chief Complaint: Dyspnea. HPI Narrative The patient is an 82 y/o M w/ PMHx: Obesity, Hx TIA, Hx Sick Sinus Syndrome/tachybradycardia syndrome s/p pacemaker status, Anxiety and Depression, RLS, PAF/Flutter s/p RFA, Hx VTE, Chronic anemia/Fe deficiency anemia, GERD w/ Hx PUD, Diabetes mellitus type II with chronic neuropathy, BPH, CKD stage IIIb, MACHELLE on BIPAP q HS, Diastolic CHF, recently discharged 12/03/22 following evaluation and treatment for acute on chronic diastolic heart failure as well as atrial tachycardia/dysrhythmia status post pacemaker insertion 10/14/2022 with cardiology evaluation at that time with decrease of patient's beta-simona therapy and hold if heart rate less than 60 as patient had persistently been 60- 70, 12/06/2022 of note callus removal by his product merchandiser from the second distal toe on the left foot with initiation of doxycycline to be cautious with first dose the evening prior who now represents to the [facility] ED on 12/07/22 with history of dyspnea starting the evening prior ~ 1 hour following incidentally his first doxycycline dose with ongoing worsening dyspnea, worse with ambulation and laying flat prompting ED presentation although he has been seen several times recently for similar complaints w/ ED initial EKG with paced but suspected underlying atrial flutter rate 120s. Work-up in the ED included T97, heart rate 113, BP 106/78, respiratory rate 18, 96% on room air, CBC with WBC 9.1, hemoglobin 11.1, MCV 95.8, platelet 250 without marked shift, BMP with sodium 132, chloride 108, carbon oxide 17, BUN/creatinine 74/3.18, glucose 247, BNP 1457.9, troponin initial 48 with most recent repeat 60, chest x-ray with no acute cardiopulmonary findings, EKG with paced rhythm but suspected underlying likely atrial flutter with rate in the 120s with no acute evidence of ischemia. In the ED patient ministered metoprolol 5 mg IV x1. In the ED patient's left foot dressing removed and the distal tip does demonstrate significant undermining with some beefy red tissue noted beneath however able to express purulent material and mild odor therefore MRSA screen and wound culture obtained and discussed with ED staff with planned left foot plain films to be obtained on route to PCU admission. [facility] Medical History (HFpEF) heart failure with preserved ejection fraction (12/12/20) Acute on chronic diastolic HF (heart failure) Acute respiratory failure with hypoxia Anemia Anemia of chronic renal failure, stage 3 (moderate) Anxiety and depression Atherosclerotic heart disease of [place] coronary artery without angina pectoris Atrial flutter Atypical chest pain Back pain BMI 34.0-34.9,adult BPH (benign prostatic hyperplasia) BPPV (benign paroxysmal positional vertigo) Bradycardia Cardiac dysrhythmia Cardiology follow-up encounter CHF (congestive heart failure) CHF (congestive heart failure) De Quervain's tenosynovitis Debility Depression Dermatitis Diabetes mellitus Diabetic kidney disease Dizziness DM type 2 with diabetic peripheral neuropathy DVT (deep venous thrombosis) Dyslipidemia Dysphagia Essential (primary) hypertension Fall Flu vaccine need Fracture of great toe Gastric reflux Gout Gout flare Health care maintenance History of echocardiogram History of edema History of GI bleed History of peptic ulcer History of renal calculi History of ulceration HLD (hyperlipidemia) Injury of head and neck Iron deficiency anemia Iron deficiency anemia due to chronic blood loss Kidney hematoma (12/08/20) Left knee pain Left leg DVT Loss of equilibrium Low iron Malaise Near syncope Orthostatic hypotension MACHELLE (obstructive sleep apnea) Pain of left lower extremity Paroxysmal atrial fibrillation Paroxysmal atrial flutter Pneumonia Polypharmacy 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 Presence of cardiac pacemaker Prostate disease Psoriasis Recurrent syncope (06/19/22) Renal calculi RLS (restless legs syndrome) Sex disorder Sick sinus syndrome Suicidal ideation SVT (supraventricular tachycardia) TIA (transient ischemic attack) Type 2 diabetes mellitus with diabetic polyneuropathy Urolithiasis Venous insufficiency of both lower extremities Vertigo Walker as ambulation aid Wears glasses Home Medications finasteride 5 mg tablet 5 mg PO DAILY PROSTATE #90 tabs 11/03/18 [Rx Last Taken 11/30/22] insulin glargine 100 unit/mL (3 mL) subcutaneous pen 30 unit subcut QAM DM 10/06/22 [History Last Taken 11/29/22] progesterone micronized 100 mg capsule 100 mg PO QAM HORMONE 10/06/22 [History Last Taken 11/30/22] dulaglutide 4.5 mg/0.5 mL subcutaneous pen injector 4.5 mg (0.5 mL) subcut .COMPLEX DM #2 mL 10/24/22 [Rx Last Taken 11/29/22] meclizine 25 mg tablet 25 mg PO TID PRN dizziness #90 tabs 10/24/22 [Rx Last Taken 11/29/22] ergocalciferol (vitamin D2) 1,250 mcg (50,000 unit) capsule 50,000 unit PO QMONTH SUPPLEMENT #14 caps 11/29/22 [Rx Last Taken 11/16/22] ferrous sulfate 325 mg (65 mg iron) tablet 325 mg PO TH supplement #90 tabs 11/29/22 [Rx Last Taken 11/28/22] flecainide 100 mg tablet 100 mg PO Q12H HEART RATE #180 tabs 11/29/22 [Rx Last Taken 11/30/22] pramipexole 1 mg tablet (Mirapex) 2 mg PO QHS RLS #180 tabs 11/29/22 [Rx Last Taken 11/29/22] acetaminophen 500 mg tablet 1,000 mg PO Q8H PRN PRN Pain #30 tabs 12/03/22 [Rx Last Taken 11/29/22] atorvastatin 10 mg tablet 10 mg PO QHS cholesterol 12/03/22 [History Last Taken Unknown] nitroglycerin 0.4 mg sublingual tablet 0.4 mg sublingual Q5M PRN Cardiac/Chest Pain 30 days #30 tabs 12/03/22 [Rx Last Taken Unknown] sennosides 8.6 mg-docusate sodium 50 mg tablet (Stool Softener-Stimulant Laxative) 2 tab PO BID #0 tabs 12/03/22 [Rx Last Taken Unknown] famotidine 40 mg tablet 20 mg PO DAILY 12/06/22 [History Last Taken Unknown] doxycycline hyclate 100 mg tablet 100 mg PO BID 12/07/22 [History Last Taken Unknown] furosemide 20 mg tablet 20 mg PO DAILY diuretic 12/07/22 [History Last Taken Unknown] hydralazine 50 mg tablet 25 mg PO BID 12/07/22 [History Last Taken Unknown] insulin glargine-yfgn 100 unit/mL (3 mL) subcutaneous pen (Semglee (insulin glargine-yfgn) Pen) 30 unit subcut DAILY 12/07/22 [History Last Taken Unknown] loratadine 10 mg tablet 10 mg PO DAILY 12/07/22 [History Last Taken Unknown] metoprolol succinate 25 mg tablet,extended release 24 hr 12.5 mg PO DAILY BP 12/07/22 [History Last Taken Unknown] sertraline 25 mg tablet 37.5 mg PO DAILY DEPRESSION 12/07/22 [History Last Taken Unknown] Allergy/AdvReac Type Severity Reaction Status Date / Time hydrocodone bitartrate AdvReac Severe Other Verified 12/07/22 17:36 [From Vicodin] hydroxyzine AdvReac Severe Other Verified 12/07/22 17:36 Family History Father Diabetes Hypertension Cancer Lung cancer Mother Hypertension CVA (cerebral vascular accident) Sister Diabetes Son Diabetes Surgical History History of cardioversion (2015) History of cataract surgery History of left heart catheterization (02/16/13) History of lithotripsy (11/2020) History of loop recorder (06/26/22) History of radiofrequency ablation procedure for cardiac arrhythmia (02/05/06) history of right knee cap fracture History of right knee surgery Status post laser lithotripsy of ureteral calculus Status post left foot surgery STENT PLACEMENT FOR KIDNEY STONE Social History household members: spouse housing: house Smoking Status: Never smoker how long ago did patient quit smokin second hand exposure: No alcohol intake: never substance use type: does not use caffeine: No what type of physical activity do you participate in: none seatbelt use: always do you feel safe at home: Yes ROS ROS Narrative Admission Review of Systems: CONSTITUTIONAL: No weight loss, fever, chills, + weakness or fatigue. HEENT: Eyes: No visual loss, blurred vision, double vision or yellow sclerae. Ears, Nose, Throat: No hearing loss, sneezing, congestion, runny nose or sore throat. SKIN: + LLE with distal 2nd toe tip with open region, undermining, mild odor and purulent discharge, BL LE stasis skin changes. CARDIOVASCULAR: + Chronic distal edema, chronic orthopnea unchanged. No chest pain, chest pressure or chest discomfort, palpitations, syncopal events. RESPIRATORY: + Shortness of breath, No cough or sputum, wheezing, hemoptysis. GASTROINTESTINAL: No anorexia, nausea, vomiting or diarrhea, abdominal pain, melena, BRBPR. GENITOURINARY: No dysuria, frequency, urgency or retention. NEUROLOGICAL: No headache, dizziness, syncope, paralysis, ataxia, numbness or tingling in the extremities, focal weakness, change in bowel or bladder control, seizure. MUSCULOSKELETAL: + muscle, back pain, joint pain or stiffness. HEMATOLOGIC: + anemia, bleeding or bruising. LYMPHATICS: No enlarged nodes. No history of splenectomy. PSYCHIATRIC: + history of depression or anxiety. ENDOCRINOLOGIC: No reports of sweating, cold or heat intolerance. No polyuria or polydipsia. ALLERGIES: No history of asthma, hives, eczema or rhinitis. Vital Signs Vital Signs Vital Signs: 12/07/22 17:19 12/07/22 17:28 12/07/22 17:34 Temperature 98.7 F 98.7 F Temperature Source Temporal Oral Pulse Rate 122 H 112 H Respiratory Rate 22 H 18 Respiratory Effort Short of Breath Labored Respiratory Depth Shallow Respiratory Pattern Normal Blood Pressure 113/78 111/76 Blood Pressure Mean 89 87 Pulse Ox 98 97 Oxygen Delivery Method Room Air Room Air Room Air 12/07/22 17:38 12/07/22 18:19 12/07/22 19:01 Temperature Temperature Source Pulse Rate 122 H 116 H Respiratory Rate 28 H 22 H Respiratory Effort Respiratory Depth Respiratory Pattern Blood Pressure 117/77 105/71 Blood Pressure Mean 90 82 Pulse Ox 97 97 92 Oxygen Delivery Method Room Air Room Air 12/07/22 19:21 12/07/22 20:37 Temperature 98.8 F 97 F L Temperature Source Oral Temporal Pulse Rate 114 H 113 H Respiratory Rate 18 18 Respiratory Effort Respiratory Depth Respiratory Pattern Blood Pressure 102/74 106/78 Blood Pressure Mean 83 87 Pulse Ox 96 96 Oxygen Delivery Method Room Air Room Air Weight Weight: 284 lb 13.396 oz Body Mass Index (BMI) 38.6 Physical Exam Narrative Physical Examination: General: Awake, alert, oriented x 3 and cooperative, seated upright in the ED bed, fatigued, NAD. Skin: Normal color, normal turgor, no icterus, no cyanosis except for occasional staged ecchymoses and mild stasis changes to bilateral lower extremities as well as LLE with distal 2nd toe tip with open region, undermining, mild odor and purulent discharge but no marked silvino-wound erythema. HEENT: AT/NC, EOMI, PERRLA, MMM, no carotid bruits or JVD noted; however, thicke joana neck makes evaluation difficult. Lungs: Mildly diminished, greater bases, appropriate effort, no rales, ronchi or wheezing. Heart: Tachycardic, paced; no gallop, rub audible appreciated. Abdomen: Soft, obese, NTTP, no obvious distention but habitus makes evaluation difficult, distant BS, no obvious evidence of HSM however habitus makes evaluation difficult Extremities: No cyanosis, no clubbing, bilateral peripheral distal ankle edema, chronic per patient and not markedly increased, L foot with distal 2nd toe tip with open region, undermining, mild odor and purulent discharge but no marked silvino-wound erythema. Neurological: Patient awake, alert, oriented as noted, cognitive function intac t; pupils equally reactive to light and accommodation, cranial nerves II-XII grossly normal, moving all 4 extremities, strength moderately to severely globally decreased secondary to acute presentation complaints and significant underlying comorbidities as well as habitus. Psychiatric: Affect appears fatigued, no acute evidence of depressive or anxiety feelings. Results Lab / Micro Data Result Diagrams: 12/07/22 17:34 12/07/22 17:34 Labs: Laboratory Results - last 24 hr 12/07/22 17:34: WBC 9.1, RBC 3.59 L, Hgb 11.1 L, Hct 34.4 L, MCV 95.8 H, MCH 30.9, MCHC 32.3, RDW Std Deviation 48.1 H, RDW Coeff of Flavio 13.6, Plt Count 250, MPV 10.1, Immature Gran % (Auto) 0.700, Neut % (Auto) 73.3 H, Lymph % (Auto) 16.5 L, [place] % (Auto) 8.1, Eos % (Auto) 0.6, Baso % (Auto) 0.8, Absolute Neuts (auto) 6.7, Absolute Lymphs (auto) 1.50, Nucleated RBC % 0 12/07/22 17:34: Sodium 132 L, Potassium 5.1, Chloride 108 H, Carbon Dioxide 17.0 L, Anion Gap 7, BUN 74 H, Creatinine 3.18 H, Estim Creat Clear Calc 19.32, Est GFR (MDRD) Af Amer 24 L, Est GFR (MDRD) Non-Af 20 L, BUN/Creatinine Ratio 23.3 H , Glucose 249 H, Calcium 8.7, Troponin I High Sens 48 12/07/22 17:34: B-Natriuretic Peptide 1457.9 H 12/07/22 19:44: Troponin I High Sens 60 Radiology Impression Chest X-Ray 12/07/22 17:45 IMPRESSION: No change from prior study. Electronically Signed: Alfredo Perez MD at 18:41 EDT , Assessment & Plan Assessment/Plan (1) SOB (shortness of breath): PLAN: Plan The patient is an 82 y/o M w/ PMHx: Obesity, Hx TIA, Hx Sick Sinus Syndrome/tachybradycardia syndrome s/p pacemaker status, Anxiety and Depression, RLS, PAF/Flutter s/p RFA, Hx VTE, Chronic anemia/Fe deficiency anemia, GERD w/ Hx PUD, Diabetes mellitus type II with chronic neuropathy, BPH, CKD stage IIIb, MACHELLE on BIPAP q HS, Diastolic CHF, recently discharged 12/03/22 following ev aluation and treatment for acute on chronic diastolic heart failure as well as atrial tachycardia/dysrhythmia with also recently noted 12/06/2022 of note callus removal by his product merchandiser with initiation of doxycycline to be cautious with first dose the evening prior who now represents to the [facility] ED on 12/07/22 with history of dyspnea starting the evening prior ~ 1 hour following incidentally his first doxycycline dose with ongoing worsening dyspnea, worse with ambulation and laying flat prompting ED presentation although he has been seen several times recently for similar complaints w/ ED initial EKG with paced but suspected underlying atrial flutter rate 120s. #1. Suspected PAF/flutter w/ RVR suspect primarily related to patient dyspnea complaint: Patient status prior RFA as well as eventual pacemaker placement secondary to tachybradycardia syndrome as well as noted chart history sick sinus syndrome in addition to recent decrease of his beta-simona therapy secondary to associated bradycardia recently discharged 12/03/2022 and since then dyspnea complaints with suspected RVR although not significantly high with rate initially in the 120s. Will admit to PCU, maintain on telemetry, obtain cardiac enzyme serial set, obtain magnesium level, recent echocardiogram 11/10/2022 with normal LV size, normal LV systolic function, EF 65%, normal systolic function, PASP 36 mmHg, moderately enlarged LA thus will defer repeat, obtain TSH level. From review of records patient is not anticoagulated, unclear specific reason, reviewed cardiology notes during prior admission, will await their evaluation for this input, will resume patient on higher dose metoprolol 25 mg XL with dose x1 now, pacemaker interrogation concurrently requested. Cardiology consulted, pending. #2. Acute kidney injury on CKD stage IIIb: Suspect secondary to recent usage again of diuresis for acute CHF exacerbation with recent discharge 12/03/22. Admission BUN/Cr 74/3.18, prior baseline creatinine noted to be primarily 1.3- 1.5 however during recent prior admission baseline primarily 1.3-1.7. Will very judicious hydrate given recent CHF exacerbation, hold nephrotoxic medications and repeat chemistry in AM. If no improvement would plan FeNa and renal ultrasound assessment. #3. Left 2nd Toe Diabetic foot infection: Patient with recent distal toe tip callus removal, dressing taken down in the ED and there is notable skin undermining and was able to express purulent material, wound culture and wound MRSA screen taken, will maintain on IV vancomycin and IV Zosyn with de- escalation pending MRSA screen and wound culture sensitivities/speciation, hemoglobin A1c requested given diabetic history as well, ESR and CRP also requested, continue affected extremity elevation above heart when seated and in bed, monitor erythema outline with VS checks, continue dressing changes with podiatry consultation requested, wound RN consultation also requested. #4. Chronic diastolic CHF: We will continue aspirin, statin, will continue beta-simona therapy and given this presentation may need to consider increasing this again but for now will pulse dose with IV beta-simona while awaiting cardiology evaluation, holding losartan and Lasix given acute kidney injury, judicious hydration given history. #5. Nonobstructive CAD: Recent cardiac catheterization 10/07/2022, will continue aspirin, statin, continue metoprolol although may need to increase given #1, holding ARB given acute kidney injury as noted. #6. History of sick sinus syndrome, cardiology last consultation note reported tachybradycardia syndrome concurrently: Status post pacemaker status, interrogation requested as noted above. #7. Hypertension: Continue home regimen including metoprolol, hydralazine, holding diuretic and ARB given HORACE, PRN hydralazine. #8. Hyperlipidemia: We will continue patient on statin therapy. #9. History TIA: We will continue aspirin, statin, hypertensive regimen with adjustments as noted, diabetic regimen with adjustments as noted. #10. Diabetes mellitus type II: Hold oral home regimen, continue home insulin regimen, ADA diet, accu checks w/ ISS. #11. Chronic anemia/iron deficiency anemia: Admission hemoglobin 11.1, baseline appears 10-11, stable, continue to trend, continue iron supplementation. #12. Anxiety and depression: We will continue low-dose sertraline regimen with continued close renal function monitoring. #13. Obesity: Weight loss and lifestyle changes encouraged. #14. BPH: We will continue patient on finasteride regimen. #15. Restless leg syndrome: We will continue patient on pramipexole regimen. #16. History of prior VTE: Not chronically anticoagulated. #17. MACHELLE: We will continue patient on BiPAP nightly. #18. DVT prophylaxis: SCDs, heparin. #19. CODE status: Patient HCPOA is the patient's is primary and his secondary is his daughter and living will is currently in place. Full Code status. Admission Evaluation Time spent evaluating chart, patient history, patient evaluation, care planning and discussion with specialists: 75 minutes. Charges/Coding Visit Charges Inpatient E&M: 78646 Init Hosp L3
[2022-12-07 22:18] LABS: Magnesium 2.2 mg/dL (1.6-2.6)
[2022-12-07] MEDS: 0.9% Saline Lock 10 ML Syringe IV (22:52)
[2022-12-07] MEDS: Pramipexole Di-HCl 1 MG Tablet 2 MG PO (22:55)
[2022-12-07] MEDS: Senna/Docusate Sodium 1 Tablet 2 TABLET PO (22:55)
[2022-12-07] MEDS: Atorvastatin Calcium 10 MG Tablet PO (22:56)
[2022-12-07] MEDS: hydrALAZINE 25 MG Tablet PO (22:56)
[2022-12-07] MEDS: Metoprolol(XL)Succ 25 MG Tablet PO (22:57)
[2022-12-07] MEDS: Heparin Injection (Vial) 5,000 UNIT/ML VIAL 5000 UNIT SC (22:58)
[2022-12-07] MEDS: CLARIFY ORDER 1 EACH NOTE (23:09)
--- NOTE | 2022-12-07 23:22 | CPS ---
Patient denied need for BIPAP
[2022-12-07] MEDS: Insulin Lispro 100 UNIT/ML INSULN.PEN SC (23:39)
[2022-12-07 23:40] LABS: Troponin-I HS 74 pg/mL (3.0-78.0)
--- NOTE | 2022-12-07 23:47 | EKG12_ITS ---
Test Reason : SOB Blood Pressure : / mmHG Vent. Rate : 121 BPM Atrial Rate : 121 BPM P-R Int : 162 ms QRS Dur : 086 ms QT Int : 338 ms P-R-T Axes : 109 -09 098 degrees QTc Int : 479 ms Atrial-paced rhythm Low voltage QRS Anterolateral infarct , possibly acute Inferior injury pattern Abnormal ECG Confirmed by OJRDIN DUNCAN, SYBIL ([id number]), assistant editor NITZA ROJAS [id number]) on 12/09/2022 11:22:29 AM Referred By: Confirmed By:SYIBL BRENNER MD
[2022-12-07 23:56] LABS: Erythrocyte Sedimentation Rate 46 mm/hr (0-20)
[2022-12-08] VITALS (22 sets, daily range): BP systolic 88–116; BP diastolic 53–79; PULSE 112–122; RESP 12–32; TEMP 36.1–36.7; O2SAT 94–99; BMI 38.0
[2022-12-08 00:04] LABS: M R Staph aureus DNA By PCR Negative (Negative); Probe Check PASS; Specimen Processing Control PASS; Staph aureus DNA By PCR NEGATIVE (Negative)
[2022-12-08] MEDS: 0.9% Saline Lock 10 ML Syringe IV ×2 (00:57→11:48)
[2022-12-08] MEDS: 0.9% Normal Saline 1,000 ML 75 ML IV (00:57)
[2022-12-08 01:05] LABS: Bedside Glucose 210 mg/dL (74-106)
--- NOTE | 2022-12-08 04:20 | PCM.RX.CS ---
Consult Pharmacy has been consulted to manage selected antiobiotic: Vancomycin Type of Consult: New start Labs: Sodium 132 mmol/L (136-145) L 12/07/22 17:34 Potassium 5.1 mmol/L (3.5-5.1) 12/07/22 17:34 Chloride 108 mmol/L (98-107) H 12/07/22 17:34 Carbon Dioxide 17.0 mmol/L (21.0-32.0) L 12/07/22 17:34 Anion Gap 7 (5-15) 12/07/22 17:34 BUN 74 mg/dL (7-18) H 12/07/22 17:34 Creatinine 3.18 mg/dL (0.70-1.30) H 12/07/22 17:34 Est GFR (MDRD) Af Amer 24 mL/min (>60) L 12/07/22 17:34 Est GFR (MDRD) Non-Af 20 mL/min (>60) L 12/07/22 17:34 BUN/Creatinine Ratio 23.3 RATIO (10-20) H 12/07/22 17:34 Glucose 249 mg/dL (74-106) H 12/07/22 17:34 Goal Trough: 15-20 mcg/mL Pharmacy Plan for Drug Dosing: Pharmacy Service will continue to monitor and adjust dosing as required. Medications Vancomycin HCl 1,250 mg/ (Sodium Chloride) 275 mls @ 167 mls/hr IV Q24H ANTONIO Discontinued Medications Vancomycin HCl 2,000 mg/ (Sodium Chloride) 540 mls @ 250 mls/hr IV X1 ONE Stop: 12/08/22 00:39 Last Admin: 12/08/22 01:35 Dose: Infused Follow-Up Labs: Trough Vancomycin Labs to be done on [date and time ordered]: 12/09 @ 5422
[2022-12-08 05:34] LABS: Absolute Lymphocyte Count 1.33 X10^3/uL (0.83-4.51); Absolute Neutrophil Count 6.9 X10^3/uL (2.0-7.7); Basophil# 0.07 X10^3/uL; Basophil% 0.8 % (0-1); Eosinophil# 0.03 X10^3/uL; Eosinophils% 0.3 % (0-5); Hematocrit 34.3 % (40-54); Hemoglobin 10.7 g/dL (13.0-16.5); Lymphocyte # 1.33 X10^3/ul (0.83-4.51); Lymphocyte % 14.6 % (19-41); Mean Corp Hgb Conc 31.2 g/dL (32-36); Mean Corpuscular Hgb 29.9 pg (27.0-32.0); Mean Corpuscular Volume 95.8 fL (80-94); Mean Platelet Vol. 10.3 fl (6.2-12.0); Monocyte# 0.74 X10^3/uL; Monocyte% 8.1 % (0-10); NRBC Flagged by Analyzer 0 % (0-5); Neutrophil # 6.86 X10^3/uL (2.7-7.7); Neutrophil % 75.1 % (47-70); Platelet Count 253 K/mm3 (150-450); RBC Distribution Width CV 13.6 % (11.6-14.6); RBC Distribution Width SD 48.4 fl (35.1-43.9); Red Blood Count 3.58 M/mm3 (4.6-6.2); White Blood Count 9.1 K/mm3 (4.4-11.0)
[2022-12-08 06:12] LABS: ALB/GLOB Ratio 0.9 RATIO (0.9-2.4); AST(SGOT) 58 U/L (15-37); Alanine Aminotransfer ALT/SGPT 124 U/L (16-61); Albumin, Serum 3.2 g/dL (3.2-5.0); Alkaline Phosphatase 146 U/L (45-117); Anion Gap 8 (5-15); BUN 78 mg/dL (7-18); BUN/Creat Ratio 23.9 RATIO (10-20); Calcium,Total 8.1 mg/dL (8.5-10.1); Chloride 109 mmol/L (98-107); Creatinine, Serum 3.27 mg/dL (0.70-1.30); EST Glomerular Filtration Rate 19 mL/min (>60); Est Glom Filt Rate - Afr Amer 23 mL/min (>60); Estimated Creatinine Clearance 18.79 ml/min; Globulin 3.6 g/dL (2.2-4.2); Glucose 266 mg/dL (74-106); Potassium 5.3 mmol/L (3.5-5.1); Protein, Total 6.8 g/dL (6.4-8.2); Sodium Level 131 mmol/L (136-145); Thyroid Stim Hormone (TSH) 1.53 uIU/mL (0.358-3.74)
[2022-12-08] MEDS: Insulin Lispro 100 UNIT/ML INSULN.PEN SC ×4 (06:56→23:11)
[2022-12-08 07:18] LABS: Hemoglobin A1c 6.4 % (3.8-5.6)
--- NOTE | 2022-12-08 08:04 | CPS ---
Pt declined wearing our PAP machine, he will have his bring his machine in.
[2022-12-08] MEDS: Sodium Polystyrene Sulfonate 15 GM/60 ML UDC 30 GM PO (08:12)
[2022-12-08] MEDS: Metoprolol(XL)Succ 25 MG Tablet PO (10:08)
[2022-12-08] MEDS: Loratadine 10 MG Tablet PO (10:08)
[2022-12-08] MEDS: Heparin Injection (Vial) 5,000 UNIT/ML VIAL 5000 UNIT SC (10:09)
[2022-12-08] MEDS: Insulin Glargine-YFGN 100 UNIT/ML Pen 30 UNIT SC (10:09)
[2022-12-08] MEDS: Flecainide 100 MG Tablet PO (10:09)
[2022-12-08] MEDS: Famotidine 20 MG Tablet PO (10:09)
[2022-12-08] MEDS: Sertraline 50 MG Tablet 37.5 MG PO (10:11)
--- NOTE | 2022-12-08 10:20 | NURSING ---
, Coby, called to ask to bring patient's home bipap in for patient to use. Also asked Coby to bring inn patient's non-formulary medication, Progesterone. Coby will bring in later today. Coby also updated on plan of care.
--- NOTE | 2022-12-08 11:25 | CON.PCM_ITS ---
Assessment & Plan Assessment/Plan (1) Acute osteomyelitis of toe of left foot: (2) DM type 2 with diabetic peripheral neuropathy: (3) Type 2 diabetes mellitus with foot ulcer: PLAN: Plan Evaluation performed. Reviewed diagnostic data. There is exposed bone left 2nd toe, there is purulence, and some localized edema and cellulitis - clinically osteomyelitis is present. Discussed further options with patient and he would like to proceed with left 2nd toe amputation. This was discussed with him and we will plan to proceed with this likely in next couple of days. Debrided the left 2nd toe ulceration down to subcutaneous tissue as there was nonviable tissue present, this was done using a 10 blade, removing nonviable tissue in excisional fashion - area debrided measured 1cm x 0.8cm and down to subcutaneous tissue (0.2cm), no anesthesia was needed due to patients neuropathy, hemostasis achieved with gauze and pressure. Applied gauze, kerlix and isa dressing. Culture has been obtained and results pending. Patient is on IV antibiotic therapy vanc and zosyn. Ordered LEAS to better assess LE arterial flow. No weight on left forefoot. Podiatry will continue to follow, thank you for consultation. HPI Consult Data Date of Consult: 12/08/22 HPI Narrative Reason for Consultation: Left 2nd toe ulcer HPI Narrative: MARY SAN, is a 82 M who presented to ER yesterday with HORACE, AF with RVR and also with toe ulceration of the left 2nd toe. Had callus debrided last week in office, and was started on Doxycycline. He relates he feels tired. Podiatry was consulted for further evaluation of left 2nd toe, there was noted to be pu rulence, culture has been obtained and also xray has been obtained. He is resting in bed. [facility] Medical History (HFpEF) heart failure with preserved ejection fraction (12/12/20) Acute on chronic diastolic HF (heart failure) Acute respiratory failure with hypoxia Anemia Anemia of chronic renal failure, stage 3 (moderate) Anxiety and depression Atherosclerotic heart disease of [place] coronary artery without angina pectoris Atrial flutter Atypical chest pain Back pain BMI 34.0-34.9,adult BPH (benign prostatic hyperplasia) BPPV (benign paroxysmal positional vertigo) Bradycardia Cardiac dysrhythmia Cardiology follow-up encounter CHF (congestive heart failure) CHF (congestive heart failure) De Quervain's tenosynovitis Debility Depression Dermatitis Diabetes mellitus Diabetic kidney disease Dizziness DM type 2 with diabetic peripheral neuropathy DVT (deep venous thrombosis) Dyslipidemia Dysphagia Essential (primary) hypertension Fall Flu vaccine need Fracture of great toe Gastric reflux Gout Gout flare Health care maintenance History of echocardiogram History of edema History of GI bleed History of peptic ulcer History of renal calculi History of ulceration HLD (hyperlipidemia) Injury of head and neck Iron deficiency anemia Iron deficiency anemia due to chronic blood loss Kidney hematoma (12/08/20) Left knee pain Left leg DVT Loss of equilibrium Low iron Malaise Near syncope Orthostatic hypotension MACHELLE (obstructive sleep apnea) Pain of left lower extremity Paroxysmal atrial fibrillation Paroxysmal atrial flutter Pneumonia Polypharmacy 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 Presence of cardiac pacemaker Prostate disease Psoriasis Recurrent syncope (06/19/22) Renal calculi RLS (restless legs syndrome) Sex disorder Sick sinus syndrome Suicidal ideation SVT (supraventricular tachycardia) TIA (transient ischemic attack) Type 2 diabetes mellitus with diabetic polyneuropathy Urolithiasis Venous insufficiency of both lower extremities Vertigo Walker as ambulation aid Wears glasses Home Medications finasteride 5 mg tablet 5 mg PO DAILY PROSTATE #90 tabs 11/03/18 [Rx Last Taken 11/30/22] insulin glargine 100 unit/mL (3 mL) subcutaneous pen 30 unit subcut QAM DM 10/06/22 [History Last Taken 11/29/22] progesterone micronized 100 mg capsule 100 mg PO QAM HORMONE 10/06/22 [History Last Taken 11/30/22] dulaglutide 4.5 mg/0.5 mL subcutaneous pen injector 4.5 mg (0.5 mL) subcut .COMPLEX DM #2 mL 10/24/22 [Rx Last Taken 11/29/22] meclizine 25 mg tablet 25 mg PO TID PRN dizziness #90 tabs 10/24/22 [Rx Last Taken 11/29/22] ergocalciferol (vitamin D2) 1,250 mcg (50,000 unit) capsule 50,000 unit PO QMONTH SUPPLEMENT #14 caps 11/29/22 [Rx Last Taken 11/16/22] ferrous sulfate 325 mg (65 mg iron) tablet 325 mg PO TH supplement #90 tabs 04/14/23 [Rx Last Taken 11/28/22] flecainide 100 mg tablet 100 mg PO Q12H HEART RATE #180 tabs 11/29/22 [Rx Last Taken 11/30/22] pramipexole 1 mg tablet (Mirapex) 2 mg PO QHS RLS #180 tabs 11/29/22 [Rx Last Taken 11/29/22] acetaminophen 500 mg tablet 1,000 mg PO Q8H PRN PRN Pain #30 tabs 12/03/22 [Rx Last Taken 11/29/22] atorvastatin 10 mg tablet 10 mg PO QHS cholesterol 12/03/22 [History Last Taken Unknown] nitroglycerin 0.4 mg sublingual tablet 0.4 mg sublingual Q5M PRN Cardiac/Chest Pain 30 days #30 tabs 12/03/22 [Rx Last Taken Unknown] sennosides 8.6 mg-docusate sodium 50 mg tablet (Stool Softener-Stimulant Laxative) 2 tab PO BID #0 tabs 12/03/22 [Rx Last Taken Unknown] famotidine 40 mg tablet 20 mg PO DAILY 12/06/22 [History Last Taken Unknown] doxycycline hyclate 100 mg tablet 100 mg PO BID 12/07/22 [History Last Taken Unknown] furosemide 20 mg tablet 20 mg PO DAILY diuretic 12/07/22 [History Last Taken Unknown] hydralazine 50 mg tablet 25 mg PO BID 12/07/22 [History Last Taken Unknown] insulin glargine-yfgn 100 unit/mL (3 mL) subcutaneous pen (Semglee (insulin glargine-yfgn) Pen) 30 unit subcut DAILY 12/07/22 [History Last Taken Unknown] loratadine 10 mg tablet 10 mg PO DAILY 12/07/22 [History Last Taken Unknown] metoprolol succinate 25 mg tablet,extended release 24 hr 12.5 mg PO DAILY BP 12/07/22 [History Last Taken Unknown] sertraline 25 mg tablet 37.5 mg PO DAILY DEPRESSION 12/07/22 [History Last Taken Unknown] Allergy/AdvReac Type Severity Reaction Status Date / Time hydrocodone bitartrate AdvReac Severe Other Verified 12/07/22 17:36 [From Vicodin] hydroxyzine AdvReac Severe Other Verified 12/07/22 17:36 Family History Father Diabetes Hypertension Cancer Lung cancer Mother Hypertension CVA (cerebral vascular accident) Sister Diabetes Son Diabetes Surgical History History of cardioversion (2015) History of cataract surgery History of left heart catheterization (02/16/13) History of lithotripsy (11/2020) History of loop recorder (06/26/22) History of radiofrequency ablation procedure for cardiac arrhythmia (02/05/06) history of right knee cap fracture History of right knee surgery Status post laser lithotripsy of ureteral calculus Status post left foot surgery STENT PLACEMENT FOR KIDNEY STONE Social History household members: spouse housing: house Smoking Status: Never smoker how long ago did patient quit smokin second hand exposure: No alcohol intake: never substance use type: does not use caffeine: No what type of physical activity do you participate in: none seatbelt use: always do you feel safe at home: Yes Physical Exam Narrative Left 2nd toe with ulceration to the distal tip, there is nonviable tissue and some purulence localized to the area, also some edema and erythema as well, ulcer probes to distal phalanx bone, there is no streaking, no other open lesions bilateral foot, CFT < 2 seconds bilateral toes, Sensation diminished c/w chronic peripheral neuropathy, 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 Const alert and oriented x3 Lab / Micro Data Result Diagrams: 12/08/22 04:20 12/08/22 04:20 Labs: Laboratory Results - last 24 hr 12/07/22 17:34: WBC 9.1, RBC 3.59 L, Hgb 11.1 L, Hct 34.4 L, MCV 95.8 H, MCH 30 .9, MCHC 32.3, RDW Std Deviation 48.1 H, RDW Coeff of Flavio 13.6, Plt Count 250, MPV 10.1, Immature Gran % (Auto) 0.700, Neut % (Auto) 73.3 H, Lymph % (Auto) 16.5 L, Schley % (Auto) 8.1, Eos % (Auto) 0.6, Baso % (Auto) 0.8, Absolute Neuts (auto) 6.7, Absolute Lymphs (auto) 1.50, Nucleated RBC % 0 12/07/22 17:34: Sodium 132 L, Potassium 5.1, Chloride 108 H, Carbon Dioxide 17.0 L, Anion Gap 7, BUN 74 H, Creatinine 3.18 H, Estim Creat Clear Calc 19.32, Est GFR (MDRD) Af Amer 24 L, Est GFR (MDRD) Non-Af 20 L, BUN/Creatinine Ratio 23.3 H , Glucose 249 H, Calcium 8.7, Troponin I High Sens 48 12/07/22 17:34: B-Natriuretic Peptide 1457.9 H 12/07/22 19:44: Troponin I High Sens 60 12/07/22 19:44: Magnesium 2.2 12/07/22 19:44: C-React Prot Ext Range 13.90 H 12/07/22 21:30: S.aureus Protein A PCR NEGATIVE, MRSA (PCR) Negative 12/07/22 23:14: ESR 46 H 12/07/22 23:14: Troponin I High Sens 74 12/07/22 23:19: POC Glucose 210 H 12/08/22 04:20: WBC 9.1, RBC 3.58 L, Hgb 10.7 L, Hct 34.3 L, MCV 95.8 H, MCH 29.9, MCHC 31.2 L, RDW Std Deviation 48.4 H, RDW Coeff of Flavio 13.6, Plt Count 253, MPV 10.3, Immature Gran % (Auto) 1.100 H, Neut % (Auto) 75.1 H, Lymph % (Auto) 14.6 L, Schley % (Auto) 8.1, Eos % (Auto) 0.3, Baso % (Auto) 0.8, Absolute Neuts (auto) 6.9, Absolute Lymphs (auto) 1.33, Nucleated RBC % 0 12/08/22 04:20: Sodium 131 L, Potassium 5.3 H, Chloride 109 H, Carbon Dioxide 14.0 L, Anion Gap 8, BUN 78 H, Creatinine 3.27 H, Estim Creat Clear Calc 18.79, Est GFR (MDRD) Af Amer 23 L, Est GFR (MDRD) Non-Af 19 L, BUN/Creatinine Ratio 23.9 H, Glucose 266 H, Calcium 8.1 L, Total Bilirubin 0.80, AST 58 H, ALT 124 H, Alkaline Phosphatase 146 H, Total Protein 6.8, Albumin 3.2, Globulin 3.6, Albumin/Globulin Ratio 0.9, TSH 1.53 12/08/22 04:20: Hemoglobin A1c 6.4 H Radiology Impression Chest X-Ray 12/07/22 17:45 IMPRESSION: No change from prior study. Electronically Signed: Alfredo Perez MD at 18:41 EDT , Foot X-Ray 12/07/22 21:30 IMPRESSION: Stable examination without cortical destruction to suggest osteomyelitis. Electronically Signed: Daniel Xiao MD at 22:32 EDT ,
[2022-12-08] MEDS: Finasteride 5 MG Tablet PO (11:46)
[2022-12-08 12:06] LABS: Bedside Glucose 302 mg/dL (74-106)
--- NOTE | 2022-12-08 12:41 | ART_ITS ---
Reason For Study: LE Ulcer Procedure A bilateral lower extremity continuous wave Doppler with analog waveform analysis,segmental pressures,and ankle brachial indexes without exercise. Left Segmental Pressures Left brachial= 131mmHg. Left posterior tibial artery = >254mmHg. Left dorsalis pedis artery = 148mmHg. Left digit = 82 mmHg. The left posterior tibial artery waveforms are triphasic. The left dorsalis pedis waveforms are triphasic. Right Segmental Pressures Right posterior tibial artery = >254mmHg. Right dorsalis pedis artery = >254mmHg. Right digit = 112 mmHg. The right posterior tibial artery waveforms are triphasic. The right dorsalis pedis waveforms are triphasic. Indices The right ankle brachial index by the posterior tibial artery is N/C. The right ankle brachial index by the dorsalis pedis is N/C. The right digital-brachial index is 0.85. The left ankle brachial index by the posterior tibial artery is N/C. The left ankle brachial index by the dorsalis pedis is 1.13. The left digital-brachial index is 0.63. VL/Lower Ext Art Exam w/o Exercis Interpretation Summary Right NANCY not able to be obtained due to non-compressible vessels. TBI and Dopp ler/PVR waveforms of the right leg normal at rest. Left NANCY 1.13, normal. Doppler/PVR waveforms of the left leg normal at rest. TB I diminished, pedal/digit disease vs spasm Ordering Physician: Helio Melendrez Referring Physician: Tosha Shrestha Performed By: Bobby Parada RVT
--- NOTE | 2022-12-08 12:48 | PN_ITS ---
Subjective Subjective Patient seen and examined. He was admitted with a complaint of shortness of breath. He was found to be in atrial flutter. He is being managed for atrial flutter. He denied any shortness of breath, chest pain, palpitations, cough, chest pain, palpitations, dizziness, nausea, vomiting or diarrhea. Review of systems is otherwise negative. Objective Data Objective Data Vital Signs: Vital Signs Temp Pulse Resp BP Pulse Ox O2 Del Method O2 Flow Rate 97.8 F 116 H 18 93/68 97 Nasal Cannula 2 12/08/22 11:44 12/08/22 11:44 12/08/22 11:44 12/08/22 11:44 12/08/22 11:44 12/08/22 11:44 12/08/22 11:44 Oxygen Flow Rate (L/min) 2 Oxygen Delivery Method Nasal Cannula Weight: 280 lb 13.903 oz Body Mass Index (BMI) 38.0 Intake & Output: Intake and Output for Last 24 Hours 12/06/22 12/07/22 12/08/22 23:59 23:59 23:59 Intake Total 640 / 640 Balance 640 / 640 Lab / Micro Data Result Diagrams: 12/08/22 04:20 12/08/22 04:20 Labs: Laboratory Results - last 24 hr 12/07/22 17:34: WBC 9.1, RBC 3.59 L, Hgb 11.1 L, Hct 34.4 L, MCV 95.8 H, MCH 30.9, MCHC 32.3, RDW Std Deviation 48.1 H, RDW Coeff of Lfavio 13.6, Plt Count 250, MPV 10.1, Immature Gran % (Auto) 0.700, Neut % (Auto) 73.3 H, Lymph % (Auto) 16.5 L, Gove % (Auto) 8.1, Eos % (Auto) 0.6, Baso % (Auto) 0.8, Absolute Neuts (auto) 6.7, Absolute Lymphs (auto) 1.50, Nucleated RBC % 0 12/07/22 17:34: Sodium 132 L, Potassium 5.1, Chloride 108 H, Carbon Dioxide 17.0 L, Anion Gap 7, BUN 74 H, Creatinine 3.18 H, Estim Creat Clear Calc 19.32, Est GFR (MDRD) Af Amer 24 L, Est GFR (MDRD) Non-Af 20 L, BUN/Creatinine Ratio 23.3 H , Glucose 249 H, Calcium 8.7, Troponin I High Sens 48 12/07/22 17:34: B-Natriuretic Peptide 1457.9 H 12/07/22 19:44: Troponin I High Sens 60 12/07/22 19:44: Magnesium 2.2 12/07/22 19:44: C-React Prot Ext Range 13.90 H 12/07/22 21:30: S.aureus Protein A PCR NEGATIVE, MRSA (PCR) Negative 12/07/22 23:14: ESR 46 H 12/07/22 23:14: Troponin I High Sens 74 12/07/22 23:19: POC Glucose 210 H 12/08/22 04:20: WBC 9.1, RBC 3.58 L, Hgb 10.7 L, Hct 34.3 L, MCV 95.8 H, MCH 29.9, MCHC 31.2 L, RDW Std Deviation 48.4 H, RDW Coeff of Flavio 13.6, Plt Count 253, MPV 10.3, Immature Gran % (Auto) 1.100 H, Neut % (Auto) 75.1 H, Lymph % (Auto) 14.6 L, [place]ove % (Auto) 8.1, Eos % (Auto) 0.3, Baso % (Auto) 0.8, Absolute Neuts (auto) 6.9, Absolute Lymphs (auto) 1.33, Nucleated RBC % 0 12/08/22 04:20: Sodium 131 L, Potassium 5.3 H, Chloride 109 H, Carbon Dioxide 14.0 L, Anion Gap 8, BUN 78 H, Creatinine 3.27 H, Estim Creat Clear Calc 18.79, Est GFR (MDRD) Af Amer 23 L, Est GFR (MDRD) Non-Af 19 L, BUN/Creatinine Ratio 23.9 H, Glucose 266 H, Calcium 8.1 L, Total Bilirubin 0.80, AST 58 H, ALT 124 H, Alkaline Phosphatase 146 H, Total Protein 6.8, Albumin 3.2, Globulin 3.6, Albumin/Globulin Ratio 0.9, TSH 1.53 12/08/22 04:20: Hemoglobin A1c 6.4 H 12/08/22 11:39: POC Glucose 302 H Radiography Diagnostic Testing: Radiology Impression Chest X-Ray 12/07/22 17:45 IMPRESSION: No change from prior study. Electronically Signed: Alfredo Perez MD at 18:41 EDT , Foot X-Ray 12/07/22 21:30 IMPRESSION: Stable examination without cortical destruction to suggest osteomyelitis. Electronically Signed: Daniel Xiao MD at 22:32 EDT , Physical Exam Const alert, oriented x3 and no apparent distress Constitutional Narrative: morbidly obese HEENT normocephalic, head/scalp atraumatic, moist oral mucous membranes and oropharynx normal Eyes PERRL and EOMs intact bilaterally Neck supple and no JVD Lymph Lymphatic: no lymphadenopathy noted Resp Resp Narrative: diminished breath sounds bibasally, on 2L of oxygen by nasal canula. Cardio regular rhythm, S1 normal heart sound and S2 normal heart sound Cardio Narrative: tachypneic GI normal to inspection, nondistended, normoactive bowel sounds, soft to palpation and non-tender GI Narrative: obese abdomen Extremity Extremity Narrative: left second toes wrapped in bandage Neuro CN's II-XII intact bilaterally and no focal motor deficits Psych thought process normal and cooperative Appearance: appropriate Assessment & Plan Assessment/Plan (1) Type 2 diabetes mellitus with foot ulcer: (2) Acute osteomyelitis of toe of left foot: (3) Tachycardia: PLAN: Plan #Shortness of breath likely due to atrial flutter. * now resolved. 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 Await rec's * does have a history of afib. Already on flecainide and metoprolol * started on amiodarone by cardiology. * #Poncho on CKD 3B with hyperkalemia * Cr today is 3.27. * potassium is 5.3. Cr was 3.18 yesterday * give kayexalate * unable to hydrate with IVF due to acute on chronic HF * will consult nephrology for further optimisation prior to surgery #Osteomyelitis of the left second toe * had recent left diabetic foot infection. Had distal toe tip callus removal. There was some pus expressed. * on IV vancomycin and zosyn. * podiatry consulted; per podiatry, wound probes to the bone. * podiatry recommends surgery for osteomyelitis on Friday * #Non anion gap metabolic acidosis * bicarb is down to 14, from 17 yesterday * anion gap is 9. * #Acute on chronic HfpEF: * on beta simona. * BNP is markedly elevated at 1457.9. * losartan and lasix held due to PONCHO on CKD 3B * will start on lasix drip in light of kidney impairment #CAD: had cardiac cath in September 2022. On aspirin, statin adn metoprolol #Histoyr of Sick sinus syndrome: s/p pacemaker insertion. Interrogation ordered #Hyperlipidemia;on statin #History of TIA: on aspirin, statin #Diabetes emllieuts; on lantus 30 units daily. ISS. accuchecks ACHS #Anxiety and depression; on sertraline #Obesity: counseled on DASH diet. #Restless leg syndrome: on mirapex #History of DVT: not anticoagulated. DVT prophylaxis: heparin Total time spent on evaluation and management of patient, reviewing chart and s pecialist notes, discussing plan with patient, discussion with nursing and ancillary staff as well as documentation: 45 mins Charges/Coding Visit Charges Inpatient E&M: 50958 [facility] L3
--- NOTE | 2022-12-08 13:15 | NURSING ---
Report called to [facility]. Spouse at bedside and updated on transfer to ICU per cardiology.
--- NOTE | 2022-12-08 14:34 | PN.CARD_ITS ---
Subjective Subjective To the bedside today along with the nursing staff Short of breath palpitation and feeling weak at bedside. No chest pain Bilateral lower extremity swelling Reviewed the cardiac monitors and EKGs. Objective Data Vital Signs: Vital Signs Temp Pulse Resp BP Pulse Ox O2 Del Method O2 Flow Rate 97 F L 117 H 26 H 88/71 L 98 Nasal Cannula 2 12/08/22 14:30 12/08/22 14:30 12/08/22 14:30 12/08/22 14:30 12/08/22 14:30 12/08/22 14:30 12/08/22 14:30 Oxygen Flow Rate (L/min) 2 Oxygen Delivery Method Nasal Cannula Weight: 280 lb 13.903 oz Body Mass Index (BMI) 38.0 Intake & Output: Intake and Output for Last 24 Hours 12/06/22 12/07/22 12/08/22 23:59 23:59 23:59 Intake Total 1665.26 / 1665.26 Balance 1665.26 / 1665.26 Lab / Micro Data Result Diagrams: 12/08/22 04:20 12/08/22 04:20 Labs: Laboratory Results - last 24 hr 12/07/22 17:34: WBC 9.1, RBC 3.59 L, Hgb 11.1 L, Hct 34.4 L, MCV 95.8 H, MCH 30.9, MCHC 32.3, RDW Std Deviation 48.1 H, RDW Coeff of Flavio 13.6, Plt Count 250, MPV 10.1, Immature Gran % (Auto) 0.700, Neut % (Auto) 73.3 H, Lymph % (Auto) 16.5 L, [place] % (Auto) 8.1, Eos % (Auto) 0.6, Baso % (Auto) 0.8, Absolute Neuts (auto) 6.7, Absolute Lymphs (auto) 1.50, Nucleated RBC % 0 12/07/22 17:34: Sodium 132 L, Potassium 5.1, Chloride 108 H, Carbon Dioxide 17.0 L, Anion Gap 7, BUN 74 H, Creatinine 3.18 H, Estim Creat Clear Calc 19.32, Est GFR (MDRD) Af Amer 24 L, Est GFR (MDRD) Non-Af 20 L, BUN/Creatinine Ratio 23.3 H , Glucose 249 H, Calcium 8.7, Troponin I High Sens 48 12/07/22 17:34: B-Natriuretic Peptide 1457.9 H 12/07/22 19:44: Troponin I High Sens 60 12/07/22 19:44: Magnesium 2.2 12/07/22 19:44: C-React Prot Ext Range 13.90 H 12/07/22 21:30: S.aureus Protein A PCR NEGATIVE, MRSA (PCR) Negative 12/07/22 23:14: ESR 46 H 12/07/22 23:14: Troponin I High Sens 74 12/07/22 23:19: POC Glucose 210 H 12/08/22 04:20: WBC 9.1, RBC 3.58 L, Hgb 10.7 L, Hct 34.3 L, MCV 95.8 H, MCH 29.9, MCHC 31.2 L, RDW Std Deviation 48.4 H, RDW Coeff of Flavio 13.6, Plt Count 253, MPV 10.3, Immature Gran % (Auto) 1.100 H, Neut % (Auto) 75.1 H, Lymph % (Auto) 14.6 L, [place] % (Auto) 8.1, Eos % (Auto) 0.3, Baso % (Auto) 0.8, Absolute Neuts (auto) 6.9, Absolute Lymphs (auto) 1.33, Nucleated RBC % 0 12/08/22 04:20: Sodium 131 L, Potassium 5.3 H, Chloride 109 H, Carbon Dioxide 14.0 L, Anion Gap 8, BUN 78 H, Creatinine 3.27 H, Estim Creat Clear Calc 18.79, Est GFR (MDRD) Af Amer 23 L, Est GFR (MDRD) Non-Af 19 L, BUN/Creatinine Ratio 23.9 H, Glucose 266 H, Calcium 8.1 L, Total Bilirubin 0.80, AST 58 H, ALT 124 H, Alkaline Phosphatase 146 H, Total Protein 6.8, Albumin 3.2, Globulin 3.6, Albumin/Globulin Ratio 0.9, TSH 1.53 12/08/22 04:20: Hemoglobin A1c 6.4 H 12/08/22 11:39: POC Glucose 302 H Micro: Microbiology 12/07/22 21:30 Wound - Toe Gram Stain - Final Cardiology Labs/Tests 12/07/22 17:34: WBC 9.1, RBC 3.59 L, Hgb 11.1 L, Hct 34.4 L, MCV 95.8 H, MCH 30.9, MCHC 32.3, Plt Count 250, MPV 10.1, Immature Gran % (Auto) 0.700, Neut % (Auto) 73.3 H, Lymph % (Auto) 16.5 L, [place] % (Auto) 8.1, Eos % (Auto) 0.6, Baso % (Auto) 0.8, Absolute Neuts (auto) 6.7, Nucleated RBC % 0 12/07/22 17:34: Sodium 132 L, Potassium 5.1, Chloride 108 H, Carbon Dioxide 17.0 L, Anion Gap 7, BUN 74 H, Creatinine 3.18 H, Est GFR (MDRD) Af Amer 24 L, Est GFR (MDRD) Non-Af 20 L, BUN/Creatinine Ratio 23.3 H, Glucose 249 H, Calcium 8.7 12/07/22 17:34: B-Natriuretic Peptide 1457.9 H 12/07/22 19:44: Magnesium 2.2 12/08/22 04:20: WBC 9.1, RBC 3.58 L, Hgb 10.7 L, Hct 34.3 L, MCV 95.8 H, MCH 29.9, MCHC 31.2 L, Plt Count 253, MPV 10.3, Immature Gran % (Auto) 1.100 H, Neut % (Auto) 75.1 H, Lymph % (Auto) 14.6 L, [place] % (Auto) 8.1, Eos % (Auto) 0.3, Baso % (Auto) 0.8, Absolute Neuts (auto) 6.9, Nucleated RBC % 0 12/08/22 04:20: Sodium 131 L, Potassium 5.3 H, Chloride 109 H, Carbon Dioxide 14.0 L, Anion Gap 8, BUN 78 H, Creatinine 3.27 H, Est GFR (MDRD) Af Amer 23 L, Est GFR (MDRD) Non-Af 19 L, BUN/Creatinine Ratio 23.9 H, Glucose 266 H, Calcium 8.1 L, Total Bilirubin 0.80 12/08/22 04:20: Hemoglobin A1c 6.4 H Rhythm: EKG: ECHO: Stress Test: Cardiac Cath: PCI: CT Surgery: Holter monitor: EPS: PPM: CXR: Chest CT Scan: Radiography Diagnostic Testing: Radiology Impression Chest X-Ray 12/07/22 17:45 IMPRESSION: No change from prior study. Electronically Signed: Alfredo Perez MD at 18:41 EDT , Foot X-Ray 12/07/22 21:30 IMPRESSION: Stable examination without cortical destruction to suggest osteomyelitis. 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 showed wide complex tachycardia which is regular Cardiac exam S1-S2 regular Chest exam mildly diminished air entry bilateral Assessment & Plan Assessment/Plan (1) Type 2 diabetes mellitus with foot ulcer: (2) SOB (shortness of breath): (3) Generalized weakness: (4) Anemia: QUALIFIERS: Anemia type: other cause Other causes of anemia: other cause, not classified Qualified Code(s): D64.89 - Other specified anemias (5) Sick sinus syndrome: (6) Regular wide QRS complex tachycardia: PLAN: 82-year-old patient who recently discharged from the hospital With acute on chronic systolic heart failure Has a history of paroxysmal A-fib with a prior RFA/radiofrequency ablation And had subsequent tachybradycardia syndrome with sick sinus syndrome underwent cardiac catheterization Which showed nonobstructive CAD BCA preserved Patient also underwent permanent pacemaker He was readmitted with symptoms of shortness of breath generalized weakness and palpitation On review of the court recording monitor showed he had a regular wide-complex QRS tachycardia Which could be episode of V. tach/possible atrial flutter with 2 1 AV block Blood pressure been on the lower range around 90 mmHg and patient was symptomatic with dizziness lightheadedness The last echocardiogram LV function preserved And in this admission had a series of cardiac biomarkers which were within normal This patient has multiple medical comorbidities with diabetes, hypertension, history of HORACE/CKD with a creatinine range of 3.18 this admission Also has history of TIA?paroxysmal A-fib with atrial flutter Cardiac care plan recommendations; Based on his clinical presentation and a complex history With the wide-complex QRS tachycardia, I transfered the patient to ICU ? Discontinued flecainide and p.o. amiodarone I started patient on IV amiodarone We will continue to monitor electrolytes renal function Recent pacemaker interrogation showed normal function Has significant elevated BNP with acute on chronic diastolic heart failure. Also I discussed need of long-term anticoagulation Patient has anemia which is chronic anemia however hemoglobin is stable Also had history of TIA Based on [id number] score high risk for recurrent TIA and stroke And based on his age and his renal dysfunction would recommend low-dose of Eliq uis 2.5 mg twice daily. His primary irrigator overhead Dr. Rogers will resume cardiac care and clinical follow- up.
--- NOTE | 2022-12-08 17:00 | EKG12_ITS ---
Test Reason : Blood Pressure : / mmHG Vent. Rate : 116 BPM Atrial Rate : 116 BPM P-R Int : 202 ms QRS Dur : 066 ms QT Int : 436 ms P-R-T Axes : 095 259 102 degrees QTc Int : 606 ms Suspect arm lead reversal, interpretation assumes no reversal Atrial-paced rhythm , wide complex tachycardia Lateral infarct , possibly acute Inferior infarct , possibly acute Anterior injury pattern Prolonged QT Confirmed by JORDIN DUNCAN, SYBIL ([id number]), web editor NITZA ROJAS ([id number]) on 12/10/2022 10:38:13 AM Referred By: GAYLE Confirmed By:SYBIL BRENNER MD
[2022-12-08 17:06] LABS: Bedside Glucose 199 mg/dL (74-106)
[2022-12-08 17:36] LABS: International Normalized Ratio 1.4; Prothrombin Time (Protime)PT. 16.4 SECONDS (11.7-14.9)
[2022-12-08 17:38] LABS: Partial Thromboplast Time 30.7 Seconds (24.1-36.2)
[2022-12-08] MEDS: Heparin Injection (Vial) 5,000 UNIT/ML VIAL 9500 UNIT IV (17:39)
[2022-12-08] MEDS: HEPARIN/D5w 25,000 UNITS 25,000 UNITS/250 ML IV.SOLN. 16 UNITS CONT INF (17:40)
--- NOTE | 2022-12-08 18:02 | PCM.CONS.R ---
Assessment & Plan Assessment/Plan (1) HORACE (acute kidney injury): PLAN: HORACE CKD 3B baseline creatinine around 1.6 to 1.8 or so. HORACE is likely ATN. has external catheter. no obstructive symptoms. no suprapubic fullness. Hyperkalemia. due to Acidosis and HORACE. has received kayexalate. had bowel movements already. repeat BMP in am Acidosis. history of CHF, dyspneic. can give IV bicarb 2 amps x 1 if worsening. check lactate HPI Consult Data Date of Consult: 12/08/22 HPI Narrative Reason for Consultation: HORACE HPI Narrative: MARY SAN, is a 82 M who presents to the hospital with dyspnea. renal consulted placed for HORACE. Has known history of CKD stage 3B. baseline creatinine is around 1.6 to 1.8 or so. Recently admitted here for osteomyelitis of toe. seen by podiatry. history of CHF with low EF. transferred to ICU due to wide complex tachycardia. on amiodarone drip. recent pacemaker placement. currently has a external catheter. some urine output. c/o dyspnea, appears somewhat restless. [facility] Medical History (HFpEF) heart failure with preserved ejection fraction (12/12/20) Acute on chronic diastolic HF (heart failure) Acute respiratory failure with hypoxia Anemia Anemia of chronic renal failure, stage 3 (moderate) Anxiety and depression Atherosclerotic heart disease of [place] coronary artery without angina pectoris Atrial flutter Atypical chest pain Back pain BMI 34.0-34.9,adult BPH (benign prostatic hyperplasia) BPPV (benign paroxysmal positional vertigo) Bradycardia Cardiac dysrhythmia Cardiology follow-up encounter CHF (congestive heart failure) CHF (congestive heart failure) De Quervain's tenosynovitis Debility Depression Dermatitis Diabetes mellitus Diabetic kidney disease Dizziness DM type 2 with diabetic peripheral neuropathy DVT (deep venous thrombosis) Dyslipidemia Dysphagia Essential (primary) hypertension Fall Flu vaccine need Fracture of great toe Gastric reflux Gout Gout flare Health care maintenance History of echocardiogram History of edema History of GI bleed History of peptic ulcer History of renal calculi History of ulceration HLD (hyperlipidemia) Injury of head and neck Iron deficiency anemia Iron deficiency anemia due to chronic blood loss Kidney hematoma (12/08/20) Left knee pain Left leg DVT Loss of equilibrium Low iron Malaise Near syncope Orthostatic hypotension MACHELLE (obstructive sleep apnea) Pain of left lower extremity Paroxysmal atrial fibrillation Paroxysmal atrial flutter Pneumonia Polypharmacy 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 Presence of cardiac pacemaker Prostate disease Psoriasis Recurrent syncope (06/19/22) Renal calculi RLS (restless legs syndrome) Sex disorder Sick sinus syndrome Suicidal ideation SVT (supraventricular tachycardia) TIA (transient ischemic attack) Type 2 diabetes mellitus with diabetic polyneuropathy Urolithiasis Venous insufficiency of both lower extremities Vertigo Walker as ambulation aid Wears glasses Home Medications finasteride 5 mg tablet 5 mg PO DAILY PROSTATE #90 tabs 11/03/18 [Rx Last Taken 11/30/22] insulin glargine 100 unit/mL (3 mL) subcutaneous pen 30 unit subcut QAM DM 10/06/22 [History Last Taken 11/29/22] progesterone micronized 100 mg capsule 100 mg PO QAM HORMONE 10/06/22 [History Last Taken 11/30/22] dulaglutide 4.5 mg/0.5 mL subcutaneous pen injector 4.5 mg (0.5 mL) subcut .COMPLEX DM #2 mL 10/24/22 [Rx Last Taken 11/29/22] meclizine 25 mg tablet 25 mg PO TID PRN dizziness #90 tabs 10/24/22 [Rx Last Taken 11/29/22] ergocalciferol (vitamin D2) 1,250 mcg (50,000 unit) capsule 50,000 unit PO QMONTH SUPPLEMENT #14 caps 11/29/22 [Rx Last Taken 11/16/22] ferrous sulfate 325 mg (65 mg iron) tablet 325 mg PO TH supplement #90 tabs 11/29/22 [Rx Last Taken 11/28/22] flecainide 100 mg tablet 100 mg PO Q12H HEART RATE #180 tabs 11/29/22 [Rx Last Taken 11/30/22] pramipexole 1 mg tablet (Mirapex) 2 mg PO QHS RLS #180 tabs 11/29/22 [Rx Last Taken 11/29/22] acetaminophen 500 mg tablet 1,000 mg PO Q8H PRN PRN Pain #30 tabs 12/03/22 [Rx Last Taken 11/29/22] atorvastatin 10 mg tablet 10 mg PO QHS cholesterol 12/03/22 [History Last Taken Unknown] nitroglycerin 0.4 mg sublingual tablet 0.4 mg sublingual Q5M PRN Cardiac/Chest Pain 30 days #30 tabs 12/03/22 [Rx Last Taken Unknown] sennosides 8.6 mg-docusate sodium 50 mg tablet (Stool Softener-Stimulant Laxative) 2 tab PO BID #0 tabs 12/03/22 [Rx Last Taken Unknown] famotidine 40 mg tablet 20 mg PO DAILY 12/06/22 [History Last Taken Unknown] doxycycline hyclate 100 mg tablet 100 mg PO BID 12/07/22 [History Last Taken Unknown] furosemide 20 mg tablet 20 mg PO DAILY diuretic 12/07/22 [History Last Taken Unknown] hydralazine 50 mg tablet 25 mg PO BID 12/07/22 [History Last Taken Unknown] insulin glargine-yfgn 100 unit/mL (3 mL) subcutaneous pen (Semglee (insulin glargine-yfgn) Pen) 30 unit subcut DAILY 12/07/22 [History Last Taken Unknown] loratadine 10 mg tablet 10 mg PO DAILY 12/07/22 [History Last Taken Unknown] metoprolol succinate 25 mg tablet,extended release 24 hr 12.5 mg PO DAILY BP 12/07/22 [History Last Taken Unknown] sertraline 25 mg tablet 37.5 mg PO DAILY DEPRESSION 12/07/22 [History Last Taken Unknown] Allergy/AdvReac Type Severity Reaction Status Date / Time hydrocodone bitartrate AdvReac Severe Other Verified 12/07/22 17:36 [From Vicodin] hydroxyzine AdvReac Severe Other Verified 12/07/22 17:36 Family History Father Diabetes Hypertension Cancer Lung cancer Mother Hypertension CVA (cerebral vascular accident) Sister Diabetes Son Diabetes Surgical History History of cardioversion (2015) History of cataract surgery History of left heart catheterization (02/16/13) History of lithotripsy (11/2020) History of loop recorder (06/26/22) History of radiofrequency ablation procedure for cardiac arrhythmia (02/05/06) history of right knee cap fracture History of right knee surgery Status post laser lithotripsy of ureteral calculus Status post left foot surgery STENT PLACEMENT FOR KIDNEY STONE Social History household members: spouse housing: house Smoking Status: Never smoker how long ago did patient quit smokin second hand exposure: No alcohol intake: never substance use type: does not use caffeine: No what type of physical activity do you participate in: none seatbelt use: always do you feel safe at home: Yes ROS ROS Narrative negative except above Physical Exam Narrative AAO3 No pallor no JVD s1s2 basal rales abdomen soft + edema LLE wound Lab / Micro Data Result Diagrams: 12/08/22 04:20 12/08/22 04:20 Labs: Laboratory Results - last 24 hr 12/07/22 17:34: Sodium 132 L, Potassium 5.1, Chloride 108 H, Carbon Dioxide 17.0 L, Anion Gap 7, BUN 74 H, Creatinine 3.18 H, Estim Creat Clear Calc 19.32, Est GFR (MDRD) Af Amer 24 L, Est GFR (MDRD) Non-Af 20 L, BUN/Creatinine Ratio 23.3 H, Glucose 249 H, Calcium 8.7, Troponin I High Sens 48 12/07/22 17:34: B-Natriuretic Peptide 1457.9 H 12/07/22 19:44: Troponin I High Sens 60 12/07/22 19:44: Magnesium 2.2 12/07/22 19:44: C-React Prot Ext Range 13.90 H 12/07/22 21:30: S.aureus Protein A PCR NEGATIVE, MRSA (PCR) Negative 12/07/22 23:14: ESR 46 H 12/07/22 23:14: Troponin I High Sens 74 12/07/22 23:19: POC Glucose 210 H 12/08/22 04:20: WBC 9.1, RBC 3.58 L, Hgb 10.7 L, Hct 34.3 L, MCV 95.8 H, MCH 29.9, MCHC 31.2 L, RDW Std Deviation 48.4 H, RDW Coeff of Flavio 13.6, Plt Count 253, MPV 10.3, Immature Gran % (Auto) 1.100 H, Neut % (Auto) 75.1 H, Lymph % (Auto) 14.6 L, [place] % (Auto) 8.1, Eos % (Auto) 0.3, Baso % (Auto) 0.8, Absolute Neuts (auto) 6.9, Absolute Lymphs (auto) 1.33, Nucleated RBC % 0 12/08/22 04:20: Sodium 131 L, Potassium 5.3 H, Chloride 109 H, Carbon Dioxide 14.0 L, Anion Gap 8, BUN 78 H, Creatinine 3.27 H, Estim Creat Clear Calc 18.79, Est GFR (MDRD) Af Amer 23 L, Est GFR (MDRD) Non-Af 19 L, BUN/Creatinine Ratio 23.9 H, Glucose 266 H, Calcium 8.1 L, Total Bilirubin 0.80, AST 58 H, ALT 124 H, Alkaline Phosphatase 146 H, Total Protein 6.8, Albumin 3.2, Globulin 3.6, Albumin/Globulin Ratio 0.9, TSH 1.53 12/08/22 04:20: Hemoglobin A1c 6.4 H 12/08/22 11:39: POC Glucose 302 H 12/08/22 16:45: POC Glucose 199 H 12/08/22 17:15: PT 16.4 H, INR 1.4, APTT 30.7 Micro: Microbiology 12/07/22 21:30 Wound - Toe Gram Stain - Final Radiology Impression Chest X-Ray 12/07/22 17:45 IMPRESSION: No change from prior study. Electronically Signed: Alfredo Perez MD at 18:41 EDT , Foot X-Ray 12/07/22 21:30 IMPRESSION: Stable examination without cortical destruction to suggest osteomyelitis. Electronically Signed: Daniel Xiao MD at 22:32 EDT ,
[2022-12-08] MEDS: Atorvastatin Calcium 10 MG Tablet PO (23:09)
[2022-12-08] MEDS: Pramipexole Di-HCl 1 MG Tablet 2 MG PO (23:09)
[2022-12-08] MEDS: Senna/Docusate Sodium 1 Tablet 2 TABLET PO (23:11)
[2022-12-08 23:51] LABS: Bedside Glucose 191 mg/dL (74-106)
[2022-12-09] VITALS (25 sets, daily range): BP systolic 85–143; BP diastolic 48–105; PULSE 64–119; RESP 16–28; TEMP 35.8–36.3; O2SAT 91–98; BMI 38.4
[2022-12-09 00:40] LABS: Partial Thromboplast Time 235.6 Seconds (24.1-36.2)
[2022-12-09 03:37] LABS: Absolute Lymphocyte Count 1.59 X10^3/uL (0.83-4.51); Absolute Neutrophil Count 10.8 X10^3/uL (2.0-7.7); Basophil# 0.04 X10^3/uL; Basophil% 0.3 % (0-1); Eosinophil# 0.01 X10^3/uL; Eosinophils% 0.1 % (0-5); Hematocrit 33.7 % (40-54); Hemoglobin 10.6 g/dL (13.0-16.5); Lymphocyte # 1.59 X10^3/ul (0.83-4.51); Lymphocyte % 11.4 % (19-41); Mean Corp Hgb Conc 31.5 g/dL (32-36); Mean Corpuscular Hgb 30.3 pg (27.0-32.0); Mean Corpuscular Volume 96.3 fL (80-94); Mean Platelet Vol. 10.6 fl (6.2-12.0); Monocyte# 1.29 X10^3/uL; Monocyte% 9.3 % (0-10); NRBC Flagged by Analyzer 0.4 % (0-5); Neutrophil # 10.79 X10^3/uL (2.7-7.7); Neutrophil % 77.5 % (47-70); Platelet Count 256 K/mm3 (150-450); RBC Distribution Width CV 13.9 % (11.6-14.6); RBC Distribution Width SD 48.9 fl (35.1-43.9); White Blood Count 13.9 K/mm3 (4.4-11.0)
[2022-12-09 04:14] LABS: Anion Gap 13 (5-15); BUN 92 mg/dL (7-18); BUN/Creat Ratio 20.2 RATIO (10-20); Chloride 106 mmol/L (98-107); Creatinine, Serum 4.55 mg/dL (0.70-1.30); EST Glomerular Filtration Rate 13 mL/min (>60); Est Glom Filt Rate - Afr Amer 16 mL/min (>60); Glucose 190 mg/dL (74-106); Potassium 5.1 mmol/L (3.5-5.1); Sodium Level 133 mmol/L (136-145)
[2022-12-09] MEDS: Insulin Lispro 100 UNIT/ML INSULN.PEN SC ×3 (06:26→16:15)
[2022-12-09 06:50] LABS: Bedside Glucose 181 mg/dL (74-106)
--- NOTE | 2022-12-09 07:25 | PCM.PN.HOSP ---
Reason for Visit Reason for Visit: Shortness of breath Subjective Subjective Patient is an 82-year-old white male who presented to the emergency department [facility] on 12/07/2022 complaining of shortness of breath. He has a history of sick sinus syndrome with previous pacemaker placement. He was recently discharged on 12/03/2022 following evaluation and treatment for acute on chronic diastolic heart failure as well as atrial tachycardia and dysrhythmia status post pacemaker placement on 10/14/2022. At that time his beta-simona was decreased and he was instructed to hold if his heart rate was less than 60. He had been undergoing treatment for wound on his left foot. He was found to be in atrial flutter with heart rates in the 120s and no evidence of acute ischemia and some purulent material was able to be expressed from his foot wound. Podiatry was consulted and they were concerned for acute osteomyelitis of the left toe and plan is for left second toe amputation to be done on Friday. The toe was debrided down to the subcutaneous tissue of all nonviable tissue that was present. He was placed on vancomycin and Zosyn. Cardiology was also consulted for his tachyarrhythmia and recommended transfer to the ICU with discontinuation of his flecainide and p.o. amiodarone and starting him on an amiodarone drip. He is currently on his amiodarone drip. Pacemaker interrogation shows normal function. It was recommended that Eliquis 2.5 mg be initiated however with pending surgery this was held for the time being. His renal function was also noted to be considerably higher than his baseline. Serum creatinine on presentation was 3.18 and it appears he has a baseline between 1.5 and 1.7. Nephrology is following. Patient denies any current issues. Is aware the plan is for DONALD and possible cardioversion later this morning. States his oral intake has been poor as nothing is tasted good. Remains n.p.o. for procedure later today. Denies any overnight issues. Denies any lightheadedness in the last 24 hours. Objective Data Objective Data Vital Signs: Vital Signs Temp Pulse Resp BP Pulse Ox O2 Del Method O2 Flow Rate 97.3 F L 117 H 21 H 91/65 98 Nasal Cannula 2 12/09/22 00:00 12/09/22 07:00 12/09/22 07:00 12/09/22 07:00 12/09/22 07:00 12/09/22 07:00 12/09/22 07:00 Oxygen Flow Rate (L/min) 2 Oxygen Delivery Method Nasal Cannula Weight: 128.6 kg Body Mass Index (BMI) 38.4 Intake & Output: Intake and Output for Last 24 Hours 12/07/22 12/08/22 12/09/22 23:59 23:59 23:59 Intake Total 2104.13 / 2134. 110 / 110 Output Total 100 / 100 Balance 110 / 110 Lab / Micro Data Result Diagrams: 12/09/22 03:28 12/09/22 03:28 Labs: Laboratory Results - last 24 hr 12/08/22 11:39: POC Glucose 302 H 12/08/22 16:45: POC Glucose 199 H 12/08/22 17:15: PT 16.4 H, INR 1.4, APTT 30.7 12/08/22 23:08: POC Glucose 191 H 12/08/22 23:26: APTT 235.6 H* 12/09/22 03:28: WBC 13.9 H, RBC 3.50 L, Hgb 10.6 L, Hct 33.7 L, MCV 96.3 H, MCH 30.3, MCHC 31.5 L, RDW Std Deviation 48.9 H, RDW Coeff of Flavio 13.9, Plt Count 256, MPV 10.6, Immature Gran % (Auto) 1.400 H, Neut % (Auto) 77.5 H, Lymph % (Auto) 11.4 L, Casey % (Auto) 9.3, Eos % (Auto) 0.1, Baso % (Auto) 0.3, Absolute Neuts (auto) 10.8 H, Absolute Lymphs (auto) 1.59, Nucleated RBC % 0.4 12/09/22 03:28: Sodium 133 L, Potassium 5.1, Chloride 106, Carbon Dioxide 14.0 L, Anion Gap 13, BUN 92 H, Creatinine 4.55 H, Estim Creat Clear Calc 13.50, Est GFR (MDRD) Af Amer 16 L, Est GFR (MDRD) Non-Af 13 L, BUN/Creatinine Ratio 20.2 H, Glucose 190 H, Calcium 8.0 L 12/09/22 03:28: Lactic Acid 2.0 12/09/22 06:23: POC Glucose 181 H Micro: Microbiology 12/07/22 21:30 Wound - Toe Gram Stain - Final Physical Exam Const alert, oriented x3, no apparent distress and well nourished Constitutional Narrative: Morbidly obese, elderly, white male, lying in bed, watching television, appears comfortable, nontoxic HEENT head/scalp atraumatic and moist oral mucous membranes HEENT Narrative: Mallampati is 3, no thrush Head and Scalp: normocephalic Eyes PERRL, EOMs intact bilaterally and conjunctivae normal Eyes Narrative: No scleral icterus Neck no lymphadenopathy and supple Neck Narrative: Neck is short and thick, trachea midline, no thyroid enlargement Resp normal respiratory effort, no retractions, no use of accessory muscles and clear to auscultation bilaterally Auscultation: Negative for rales, rhonchi or wheezes Cardio S1 normal heart sound, S2 normal heart sound, no rub, no gallops and no clicks; Negative for no murmurs Cardio Narrative: Tachycardia with regular rhythm tube GI normal to inspection, nondistended, normoactive bowel sounds, soft to palpation and non-tender Extremity no clubbing, cyanosis or edema Extremity Narrative: 2+ pedal pulses Skin no rashes or lesions noted, no wounds, skin turgor normal, no jaundice, no petechiae and no mottling Neuro oriented x3, CN's II-XII intact bilaterally, moves all extremities and no focal motor deficits Speech: speech normal Psych affect normal Psych Narrative: Very pleasant, appropriately interactive Assessment & Plan Assessment/Plan (1) Regular wide QRS complex tachycardia: (2) Type 2 diabetes mellitus with foot ulcer: (3) Acute osteomyelitis of toe of left foot: (4) HORACE (acute kidney injury): (5) Hyponatremia: (6) Metabolic acidosis: (7) Transaminitis: (8) Leukocytosis: PLAN: Plan Regular wide-complex tachycardia -Cardiology is following -Patient with history of tachybradycardia syndrome/SSS with recent cardiac catheterization which showed nonobstructive CAD -Permanent pacemaker placed in September -Cardiology is concerned this could be episodes of VT versus atrial flutter with 2-1 AV block -Cardiac enzymes have been normal -Flecainide discontinued/p.o. amiodarone discontinued -Continue IV amiodarone per cardiology recommendations -Pacemaker was interrogated and shows normal function -BNP is elevated showing acute on chronic diastolic heart failure -On long-term anticoagulation with Eliquis 2.5 mg daily has been recommended however patient has pending surgery and therefore is on a heparin drip at this time per cardiology -Per discussion with nursing cardiology has called up and is going to perform a DONALD with probable cardioversion if no clot is identified later this morning -Cardiology consulted-appreciate input Hypotension -Etiology unclear if it is related to his atrial fibrillation/wide-complex tachycardia versus infection -Continue home metoprolol as ordered with hold parameters -Discontinue home hydralazine for now -Avoid fluid boluses with heart failure component--> patient is currently stable on 2 L nasal cannula with a sat of 98% -Continue to monitor closely in the ICU Acidosis -Suspect metabolic with renal disease -Anion gap is not elevated -Lactic acid is normal -Check ABG and if metabolic we will start sodium bicarb -Likely precipitated by his renal failure Acute osteomyelitis of the left second digit -Plan is for amputation tomorrow -Continue vancomycin and Zosyn -Wound culture is pending but Gram stain is showing only gram-positive cocci -Wound care consultation Hyperkalemia -Resolved -Likely related to acidosis and worsening renal function -Continue to monitor with worsening renal function Hyponatremia -Likely related to renal dysfunction and volume overload -Continue to monitor -Slightly improved in the last 24 hours 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 -Baseline serum creatinine appears to be between 1.6 and 1.8 -HORACE is suspected to be related to ATN -Continue condom catheter with no obstructive symptoms present -Renally dose medications -Neurology is following-appreciate input -No acute need for dialysis at this time DM-2 -A1c is 6.4 so patient at baseline is well controlled -Suspect acute elevation is related to acute hospitalization and infection -Continue Lantus 30 units at at bedtime -Continue sliding scale but increase from medium dose to high-dose intensity with elevated blood sugars -Diabetic/cardiac diet Chronic HFpEF -Unable to currently diurese secondary to HORACE and hypotension -Patient is stable on 2 L supplemental nasal cannula -It appears that patient is chronically on 2 L supplemental nasal cannula at baseline -Monitor volume status Chronic anemia -Appears stable at this time despite anticoagulation -Continue to monitor Vitamin D deficiency -Continue monthly ergocalciferol with follow-up vitamin D level as previously requested GERD/history of PUD and GI bleed -Continue famotidine Restless leg syndrome -Continue Mirapex at at bedtime HTN/HPL -Hold home hydralazine with soft blood pressures -Continue home metoprolol with tachycardia with hold parameters -Hold home Lasix -Continue home atorvastatin Vertigo -No current issue/meclizine if needed History of stroke -Patient is currently fully anticoagulated with heparin drip -Start Eliquis 2.5 mg p.o. twice daily after surgery once okay with podiatry MACHELLE -Continue nightly BiPAP History of previous VTE -Patient on heparin drip BPH -Continue home Proscar Anxiety/depression -Continue sertraline DVT prophylaxis -Heparin drip -SCDs ordered for disruption of heparin with pending surgery CODE STATUS -Full code as discussed on admission Charges/Coding Visit Charges Inpatient E&M: 47293 Subs Hosp L3
--- NOTE | 2022-12-09 07:30 | EKG12_ITS ---
Test Reason : Blood Pressure : / mmHG Vent. Rate : 118 BPM Atrial Rate : 118 BPM P-R Int : 200 ms QRS Dur : 080 ms QT Int : 324 ms P-R-T Axes : 066 -59 079 degrees QTc Int : 454 ms Atrial-paced rhythm , Wide Complex Tachycardia Indeterminate axis Pulmonary disease pattern ST elevation consider anterolateral injury or acute infarct ST elevation consider inferior injury or acute infarct ACUTE WA / STEMI Abnormal ECG When compared with ECG of 07-DEC-2022 17:46, MANUAL COMPARISON REQUIRED, DATA IS UNCONFIRMED Confirmed by JORDIN DUNCAN, SYBIL ([id number]), fan mail editor NITZA ROJAS ([id number]) on 12/10/2022 10:28:37 AM Referred By: Confirmed By:SYBIL BRENNER MD
[2022-12-09 07:34] LABS: Reflex Lactate? Y
--- NOTE | 2022-12-09 07:44 | EKG12_ITS ---
Test Reason : ARRYTHMIA Blood Pressure : / mmHG Vent. Rate : 117 BPM Atrial Rate : 117 BPM P-R Int : 200 ms QRS Dur : 062 ms QT Int : 332 ms P-R-T Axes : 108 253 107 degrees QTc Int : 463 ms Suspect arm lead reversal, interpretation assumes no reversal Atrial-paced rhythm Wide Complex Tachycardia Confirmed by JORDIN DUNCAN, SYBIL ([id number]), restaurant expeditor NITZA ROJAS ([id number]) on 12/13/2022 8:25:15 AM Referred By: JORDIN Confirmed By:SYBIL BRENNER MD
--- NOTE | 2022-12-09 07:49 | EKG12_ITS ---
Test Reason : ARRYTHMIA Blood Pressure : / mmHG Vent. Rate : 070 BPM Atrial Rate : 120 BPM P-R Int : 000 ms QRS Dur : 218 ms QT Int : 550 ms P-R-T Axes : 000 -66 113 degrees QTc Int : 594 ms Ventricular-paced rhythm Abnormal ECG When compared with ECG of 09-DEC-2022 07:45, MANUAL COMPARISON REQUIRED, DATA IS UNCONFIRMED Confirmed by JORDIN DUNCAN, SYBIL ([id number]), desk editor NITZA ROJAS ([id number]) on 12/13/2022 8:22:59 AM Referred By: JORDIN Confirmed By:SYBIL BRENNER MD
--- NOTE | 2022-12-09 08:18 | WOUNDNOTE ---
wound photo: left 2nd toe
[2022-12-09 09:00] LABS: Lactic Acid 1.8 mmol/L (0.4-1.9)
--- NOTE | 2022-12-09 09:06 | PN_ITS ---
Subjective Subjective denies constitutionals NPO for cardioversion today no new complaints Objective Data Objective Data Vital Signs: Vital Signs Temp Pulse Resp BP Pulse Ox O2 Del Method O2 Flow Rate 96.5 F L 70 19 H 110/69 93 Room Air 2 12/09/22 08:00 12/09/22 09:00 12/09/22 09:00 12/09/22 09:00 12/09/22 09:00 12/09/22 09:00 12/09/22 07:00 Oxygen Flow Rate (L/min) 2 Oxygen Delivery Method Room Air Weight: 128.6 kg Body Mass Index (BMI) 38.4 Intake & Output: Intake and Output for Last 24 Hours 12/07/22 12/08/22 12/09/22 23:59 23:59 23:59 Intake Total 210.13 / 2134.13 766.70 / 766.70 Output Total 100 / 100 Balance 766.70 / 766.70 Lab / Micro Data Result Diagrams: 12/09/22 03:28 12/09/22 03:28 Labs: Laboratory Results - last 24 hr 12/08/22 11:39: POC Glucose 302 H 12/08/22 16:45: POC Glucose 199 H 12/08/22 17:15: PT 16.4 H, INR 1.4, APTT 30.7 12/08/22 23:08: POC Glucose 191 H 12/08/22 23:26: APTT 235.6 H* 12/09/22 03:28: WBC 13.9 H, RBC 3.50 L, Hgb 10.6 L, Hct 33.7 L, MCV 96.3 H, MCH 30.3, MCHC 31.5 L, RDW Std Deviation 48.9 H, RDW Coeff of Flavio 13.9, Plt Count 256, MPV 10.6, Immature Gran % (Auto) 1.400 H, Neut % (Auto) 77.5 H, Lymph % (Auto) 11.4 L, [place] % (Auto) 9.3, Eos % (Auto) 0.1, Baso % (Auto) 0.3, Absolute Neuts (auto) 10.8 H, Absolute Lymphs (auto) 1.59, Nucleated RBC % 0.4 12/09/22 03:28: Sodium 133 L, Potassium 5.1, Chloride 106, Carbon Dioxide 14.0 L , Anion Gap 13, BUN 92 H, Creatinine 4.55 H, Estim Creat Clear Calc 13.50, Est GFR (MDRD) Af Amer 16 L, Est GFR (MDRD) Non-Af 13 L, BUN/Creatinine Ratio 20.2 H , Glucose 190 H, Calcium 8.0 L 12/09/22 03:28: Lactic Acid 2.0 12/09/22 06:23: POC Glucose 181 H 12/09/22 08:10: Lactic Acid 1.8 Micro: Microbiology 12/07/22 21:30 Wound - Toe Gram Stain - Final Physical Exam Narrative Left 2nd toe with ulceration to the distal tip, there is nonviable tissue and some purulence localized to the area, also some edema and erythema as well, ulcer probes to distal phalanx bone, there is no streaking, no other open lesions bilateral foot, CFT < 2 seconds bilateral toes, Sensation diminished c/w chronic peripheral neuropathy, 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 Const alert and oriented x3 Assessment & Plan Assessment/Plan (1) Acute osteomyelitis of toe of left foot: (2) DM type 2 with diabetic peripheral neuropathy: (3) Type 2 diabetes mellitus with foot ulcer: PLAN: Plan Evaluation performed. Reviewed diagnostic data. There is exposed bone left 2nd toe, there is purulence, and some localized edema and cellulitis - clinically osteomyelitis is present. Discussed further options with patient and he would like to proceed with left 2nd toe amputation. This was discussed with him and we will plan to proceed with this likely in next couple of days. Applied gauze, kerlix and ias dressing. Culture has been obtained and results pending. Patient is on IV antibiotic therapy vanc and zosyn. Ordered LEAS to better assess LE arterial flow, pending No weight on left forefoot. Podiatry will continue to follow, thank you for consultation. Plan for partial left 2nd digit amputation 12/11/22 at 11:00am. Patient likely will not need IV antibiotics upon discharge after amputation.
[2022-12-09 09:49] LABS: Partial Thromboplast Time 213.1 Seconds (24.1-36.2)
[2022-12-09 10:15] LABS: Allen Test Positive; Base Excess -12 mmol/L (-2 to +2); Bicarbonate 14.6 mmol/L (22-26); Blood Gas Specimen Type ART; FI02 21; PO2 75 mmHG (75-100); SITE L Radial; SO2 93 % (95-99); Total Carbon Dioxide 16 mmol/L; pCO2 32.1 mmHg (35-45); pH 7.27 (7.35-7.45)
--- NOTE | 2022-12-09 10:50 | PN.CARD_ITS ---
Objective Data Vital Signs: Vital Signs Temp Pulse Resp BP Pulse Ox O2 Del Method O2 Flow Rate 97 F L 70 18 122/74 H 96 Room Air 2 12/09/22 10:00 12/09/22 10:00 12/09/22 10:00 12/09/22 10:00 12/09/22 10:00 12/09/22 10:00 12/09/22 07:00 Oxygen Flow Rate (L/min) 2 Oxygen Delivery Method Room Air Weight: 283 lb 8.231 oz Body Mass Index (BMI) 38.4 Intake & Output: Intake and Output for Last 24 Hours 12/07/22 12/08/22 12/09/22 23:59 23:59 23:59 Intake Total 210.13 / 2134.13 816.70 / 816.70 Output Total 100 / 100 Balance / 816.70 / 816.70 Lab / Micro Data Result Diagrams: 12/09/22 03:28 12/09/22 03:28 Labs: Laboratory Results - last 24 hr 12/08/22 11:39: POC Glucose 302 H 12/08/22 16:45: POC Glucose 199 H 12/08/22 17:15: PT 16.4 H, INR 1.4, APTT 30.7 12/08/22 23:08: POC Glucose 191 H 12/08/22 23:26: APTT 235.6 H* 12/09/22 03:28: WBC 13.9 H, RBC 3.50 L, Hgb 10.6 L, Hct 33.7 L, MCV 96.3 H, MCH 30.3, MCHC 31.5 L, RDW Std Deviation 48.9 H, RDW Coeff of Flavio 13.9, Plt Count 256, MPV 10.6, Immature Gran % (Auto) 1.400 H, Neut % (Auto) 77.5 H, Lymph % (Auto) 11.4 L, Fleming % (Auto) 9.3, Eos % (Auto) 0.1, Baso % (Auto) 0.3, Absolute Neuts (auto) 10.8 H, Absolute Lymphs (auto) 1.59, Nucleated RBC % 0.4 12/09/22 03:28: Sodium 133 L, Potassium 5.1, Chloride 106, Carbon Dioxide 14.0 L , Anion Gap 13, BUN 92 H, Creatinine 4.55 H, Estim Creat Clear Calc 13.50, Est GFR (MDRD) Af Amer 16 L, Est GFR (MDRD) Non-Af 13 L, BUN/Creatinine Ratio 20.2 H , Glucose 190 H, Calcium 8.0 L 12/09/22 03:28: Lactic Acid 2.0 12/09/22 06:23: POC Glucose 181 H 12/09/22 08:10: Lactic Acid 1.8 Micro: Microbiology 12/07/22 21:30 Wound - Toe Gram Stain - Final 12/07/22 21:30 Wound - Toe Wound Culture - Preliminary ABG Data ABG results: ABG 12/09/22 10:08 Specimen Type ART Sample Site L Radial pH 7.27 L Bicarbonate Actual 14.6 L Total CO2 16 Base Excess -12 L O2 Saturation 93 L O2 % 21 ABG pCO2 32.1 L ABG pO2 75 Bill Test Positive Cardiology Labs/Tests 12/08/22 17:15: PT 16.4 H, INR 1.4, APTT 30.7 12/08/22 23:26: APTT 235.6 H* 12/09/22 03:28: WBC 13.9 H, RBC 3.50 L, Hgb 10.6 L, Hct 33.7 L, MCV 96.3 H, MCH 30.3, MCHC 31.5 L, Plt Count 256, MPV 10.6, Immature Gran % (Auto) 1.400 H, Neut % (Auto) 77.5 H, Lymph % (Auto) 11.4 L, Fleming % (Auto) 9.3, Eos % (Auto) 0.1, Baso % (Auto) 0.3, Absolute Neuts (auto) 10.8 H, Nucleated RBC % 0.4 12/09/22 03:28: Sodium 133 L, Potassium 5.1, Chloride 106, Carbon Dioxide 14.0 L , Anion Gap 13, BUN 92 H, Creatinine 4.55 H, Est GFR (MDRD) Af Amer 16 L, Est GFR (MDRD) Non-Af 13 L, BUN/Creatinine Ratio 20.2 H, Glucose 190 H, Calcium 8.0 L 12/09/22 03:28: Lactic Acid 2.0 12/09/22 08:10: Lactic Acid 1.8 12/09/22 10:08: pH 7.27 L, Bicarbonate Actual 14.6 L, Base Excess -12 L, O2 Saturation 93 L, ABG pCO2 32.1 L, ABG pO2 75, Bill Test Positive Rhythm: EKG: ECHO: Stress Test: Cardiac Cath: PCI: CT Surgery: Holter monitor: EPS: PPM: CXR: Chest CT Scan: Physical Exam Const alert, oriented x3 and no apparent distress General Appearance: cooperative HEENT hearing grossly normal bilaterally Head and Scalp: atraumatic Eyes EOMs intact bilaterally Neck General: normal visual inspection Chest inspection of chest normal and palpation of chest normal Resp normal respiratory effort Auscultation: clear to auscultation bilaterally Cardio regular rate, regular rhythm, S1 normal heart sound and S2 normal heart sound Jugular Venous Distention: JVD GI normal to inspection, nondistended, normoactive bowel sounds Extremity normal capillary refill and no pedal edema Peripheral Pulses: Yes pulses 2+ throughout and femoral pulses present Skin no rashes or lesions noted Neuro oriented x3 and CN's II-XII intact bilaterally Psych Appearance: grossly normal and appropriate Assessment & Plan Assessment/Plan (1) Wide-complex tachycardia: PLAN: Patient was noted to have a wide-complex tachycardia which appeared to be an atrial tachycardia with one-to-one conduction. Patient was started on amiodarone as well as had his pacemaker adjusted and he appears to be in an AV sequentially paced rhythm at this time. The plan will be to continue the amiodarone and then switch him to oral amiodarone. There was the initial plan of considering a DONALD guided cardioversion but he appears to be in an AV sequential rhythm at this time. That would be canceled. (2) CHF (congestive heart failure): PLAN: He does have evidence of diastolic heart failure which is likely secondary to his cardiac dysrhythmia. He has renal dysfunction and I will be cautious about using any diuretics. (3) Presence of cardiac pacemaker: PLAN: He does have evidence of a permanent pacemaker implantation. He was noted to be in an atrial tachycardia with rate between 115 and 122. The AV delays were shortened and the atrial trigger rate so he will be able to mode switch. He appears to have reverted to a paced rhythm at 70 bpm. (4) Elevated blood pressure reading in office with white coat syndrome, without diagnosis of hypertension: PLAN: He does have a previous history of hypertension which appears to be well controlled at this time. Thank you for allowing me to participate in the care of your patient. Please don't hesitate to call if any issues arise.
[2022-12-09 11:36] LABS: Bedside Glucose 165 mg/dL (74-106)
--- NOTE | 2022-12-09 11:53 | PCM.PN.REN ---
Subjective Subjective no new complaints Objective Data Objective Data Vital Signs: Vital Signs Temp Pulse Resp BP Pulse Ox O2 Del Method O2 Flow Rate 97 F L 70 25 H 143/83 H 92 Room Air 2 12/09/22 10:00 12/09/22 11:00 12/09/22 11:00 12/09/22 11:00 12/09/22 11:00 12/09/22 11:00 12/09/22 07:00 Oxygen Flow Rate (L/min) 2 Oxygen Delivery Method Room Air Weight: 128.6 kg Body Mass Index (BMI) 38.4 Intake & Output: Intake and Output for Last 24 Hours 12/07/22 12/08/22 12/09/22 23:59 23:59 23:59 Intake Total 210.13 / 2134.13 917.37 / 917.37 Output Total 100 / 100 300 / 300 Balance 617.37 / 617.37 Lab / Micro Data Result Diagrams: 12/09/22 03:28 12/09/22 03:28 Labs: Laboratory Results - last 24 hr 12/08/22 11:39: POC Glucose 302 H 12/08/22 16:45: POC Glucose 199 H 12/08/22 17:15: PT 16.4 H, INR 1.4, APTT 30.7 12/08/22 23:08: POC Glucose 191 H 12/08/22 23:26: APTT 235.6 H* 12/09/22 03:28: WBC 13.9 H, RBC 3.50 L, Hgb 10.6 L, Hct 33.7 L, MCV 96.3 H, MCH 30.3, MCHC 31.5 L, RDW Std Deviation 48.9 H, RDW Coeff of Flavio 13.9, Plt Count 256, MPV 10.6, Immature Gran % (Auto) 1.400 H, Neut % (Auto) 77.5 H, Lymph % (Auto) 11.4 L, [place] % (Auto) 9.3, Eos % (Auto) 0.1, Baso % (Auto) 0.3, Absolute Neuts (auto) 10.8 H, Absolute Lymphs (auto) 1.59, Nucleated RBC % 0.4 12/09/22 03:28: Sodium 133 L, Potassium 5.1, Chloride 106, Carbon Dioxide 14.0 L, Anion Gap 13, BUN 92 H, Creatinine 4.55 H, Estim Creat Clear Calc 13.50, Est GFR (MDRD) Af Amer 16 L, Est GFR (MDRD) Non-Af 13 L, BUN/Creatinine Ratio 20.2 H, Glucose 190 H, Calcium 8.0 L 12/09/22 03:28: Lactic Acid 2.0 12/09/22 06:23: POC Glucose 181 H 12/09/22 08:10: Lactic Acid 1.8 12/09/22 09:25: APTT 213.1 H* 12/09/22 11:05: POC Glucose 165 H Micro: Microbiology 12/07/22 21:30 Wound - Toe Gram Stain - Final 12/07/22 21:30 Wound - Toe Wound Culture - Preliminary ABG Data ABG results: ABG 12/09/22 10:08 Specimen Type ART Sample Site L Radial pH 7.27 L Bicarbonate Actual 14.6 L Total CO2 16 Base Excess -12 L O2 Saturation 93 L O2 % 21 ABG pCO2 32.1 L ABG pO2 75 Bill Test Positive Physical Exam Narrative AAO3 No pallor no JVD s1s2 basal rales abdomen soft + edema LLE wound Assessment & Plan Assessment/Plan (1) HORACE (acute kidney injury): PLAN: HORACE CKD 3B Baseline creatinine around 1.6-1.8. Admitted to the ICU due to atrial fibrillation. Was scheduled for cardioversion but now has converted spontaneously. Creatinine worsening. No suprapubic fullness on exam. Postvoid bladder scan was about 200 cc, will do a straight cath. Overall looks on the dry side. We will give some IV fluids. Even though he has history of heart failure, does not appear volume overloaded. Acidosis. Anion gap is slightly elevated. Will give IV bicarbonate today Hyperkalemia. Mostly mediated by acidosis. Potassium is better. Atrial fibrillation. Spontaneously cardioverted this morning. Blood pressure is better. Discussed with hospitalist Discussed with ICU staff
[2022-12-09] MEDS: Metoprolol(XL)Succ 25 MG Tablet PO (12:10)
[2022-12-09] MEDS: Famotidine 20 MG Tablet PO (12:10)
[2022-12-09] MEDS: Insulin Glargine-YFGN 100 UNIT/ML Pen 30 UNIT SC (12:11)
[2022-12-09] MEDS: Finasteride 5 MG Tablet PO (12:11)
[2022-12-09] MEDS: PROGESTERONE, MICRONIZED 100 MG CAPSULE PO (12:11)
[2022-12-09] MEDS: Sertraline 50 MG Tablet 37.5 MG PO (12:11)
[2022-12-09] MEDS: Loratadine 10 MG Tablet PO (12:11)
[2022-12-09] MEDS: HEPARIN/D5w 25,000 UNITS 25,000 UNITS/250 ML IV.SOLN. 10 UNITS CONT INF (13:03)
--- NOTE | 2022-12-09 13:07 | CHAPLAIN ---
Type of Pastoral Visit _x__ Initial Visit ___ Follow-up Visit ___ On-call Visit ___ General Patient Visit ___ Spiritual Assessment ___ Family Conference ___ Bereavement ___ Rapid Response ___ Code Blue ___ Other (describe below) Pastoral Care Referral From __x_ Patient ___ Family ___ Nurse ___ Physician ___ Rn L And D ___ Career And Guidance Counselor ___ Other (describe below) Sacrament/Intervention _x__ Active listening ___ Anointing ___ Buddhist ___ Bereavement ___ Communion ___ Ariadna exploration ___ ___ Life review _x__ Prayer ___ Reconciliation ___ Sacrament of Sick _x__ Supportive presence ___ Wedding ___ Other (describe below) Pastoral Comments presence and support given to patient and spouse who is at bedside; pt has been seen before in many admissions and always desires spiritual care support; pt expressed thanks for visit and asked for prayer; pt tired and wants to rest; time and support given to spouse
--- NOTE | 2022-12-09 13:30 | CASEMGMT ---
RN?CM?readmission note and assessment. Pt has had 3 prior In-patient admissions and 2 OBS admissions this year as follows: 10/06/22 thru 10/08/22. In-patient admission. Admitted from home w/Bradycardia and CHF. Pt discharged home. 10/10/22 thru 10/15/22. In-patient admission. Admitted from home w/right foot pain, ? gout flare, and HORACE on CKD. Plan initially was to go to a SNF, but pt decided to d/c home w/[facility]. Pt discharged home w/[facility]. 11/10/22 thru 11/12/22. In-patient admission. Admitted from [facility] w/generalized weakness and HORACE. Discharged back to [facility] 11/30/22 thru 12/01/22. OBS admission. Admitted from home w/generalized weakness and jaw pain 12/02/22 thru 12/03/22. OBS admission. Admitted from home w/generalized weakness and SOB. Discharged home w/[facility] and Palliative referral sent to [facility]. Current admission: In-patient admission 12/07/22 w/suspected PA flutter w/RVR, HORACE, and toe infection. Pt active w/[facility]: PT only. The following note taken from Dr Garcia H/P 12/07/22: PMHx: Obesity, Hx TIA, Hx Sick Sinus Syndrome/tachybradycardia syndrome s/p pacemaker status, Anxiety and Depression, RLS, PAF/Flutter s/p RFA, Hx VTE, Chronic anemia/Fe deficiency anemia, GERD w/ Hx PUD, Diabetes mellitus type II with chronic neuropathy, BPH, CKD stage IIIb, MACHELLE on BIPAP q HS, Diastolic CHF recently discharged 12/03/22 following evaluation and treatment for acute on chronic diastolic heart failure as well as atrial tachycardia/dysrhythmia status post pacemaker insertion 10/14/2022 with cardiology evaluation at that time with decrease of patient's beta-simona therapy and hold if heart rate less than 60 as patient had persistently been 60-70, 12/06/2022 of note callus removal by his production service manager from the second distal toe on the left foot with initiation of doxycycline to be cautious with first dose the evening prior who now represents to the [facility] ED on 12/07/22 with history of dyspnea starting the evening prior ~ 1 hour following incidentally his first doxycycline dose with ongoing worsening dyspnea, worse with ambulation and laying flat prompting ED presentation although he has been seen several times recently for similar complaints w/ ED initial EKG with paced but suspected underlying atrial flutter rate 120s. RN?CM?to room to meet with patient and for planning/care coordination?assessment.?RN?CM?introduced self and role at [facility].? Pt and voice understanding and consent to?assessment?at this time.? Pt resting in bed in no distress at this time.?Pt fell asleep on/off during assessment. Most of the following info obtained from who is @ bedside. Pt did verify he wishes to d/c home w/[facility] @ d/c and pt/ decline wanting list of other HHC options. Care providers, pharmacy, and demographics verified/updated at this time. PCP: Dr Shrestha-- states she thinks pt has an upcoming appt w/Dr Shrestha @ beginning of December, but she is insure of exact date. She states she keeps it all in a calendar, which is @ home. Specialists: [employer] Electrical Designer Therese Rehman-MOTOR BOSS/Dr Quiroz/Dr Tanner-mikayla, Dr Potter-onc, Dr Gilliam, Dr Kahn-rheum. Pt had an upcoming appt in October w/Dr Torres for 2nd opinion, but was unable to go to it d/t being in/out of the hospital so much. states they still plan to f/u with him soon for 2nd opinion. Preferred [facility]acy: [facility] Insurance: Patsy LEAL Prescription Benefit:?Yes Living Will/HPOA:?Has both LW and HCPOA, which is his , Coby LNOK: , Coby. Dtr, Na. Son, Arenl Living Arrangements: Lives w/his in condo w/basement w/2 steps to enter. Pt states does not have to go to the basement. Pt is indep w/ADL's and manages his own medications. and pt share home mgmt tasks. goes to OP HD 3 x's/week and pt is home alone while she is gone and manages well @ home. Transportation:? does most of the driving. Pt states he does drive on occasion, when he feels up to it. DME: States has the following DME:?built-in shower seat, walker, rollator, lift chair, rails/grab bars, BIPAP from [employer], pulse ox, functioning glucometer w/supplies. Pt checks his BS's every AM. Pt was provided w/medical alert info in Sep, but states they did not get one and she is interested in info again. Same provided at this time. states no need for further DME at this time.? HHC/SNF: Hx going to [facility], and [facility] (pt was just there in October of this year). Pt is active w/[facility]: PT. and pt both state they wish for pt to discharge back home w/[facility] and deny wanting list of other HHC options. [facility] order placed for PT and SN added. states she and her have done daily wound care/dsg changes in past and are willing/able to do this again if this is needed. Palliative referral was made to [facility] last admission. TIMOTHY LOPEZ placed call to Arin @ [facility]. She states they spoke w/pt's on 12/05 and she was unsure about signing on w/Palliative at that time. They have an appt to meet w/pt and on Wednesday 12/13. Arin aware pt has been admitted to [facility]. She states they will meet w/pt on Friday as previously scheduled, either @ [facility] if pt is still in the hospital or @ home if he has been discharged. Discussed palliative care w/both pt and and questions answered. CM?to follow for further discharge planning/needs.? Pt and family voice no further concerns/needs at this time.? Advised them to ask for?CM?if any further questions/concerns/needs arise.? Voices understanding. PLAN:??Home w/[facility]: PT. SN added. PT/OT evals pending. Allie BSN?RN?CM
[2022-12-09 16:40] LABS: Bedside Glucose 174 mg/dL (74-106)
[2022-12-09 19:22] LABS: Partial Thromboplast Time 86.1 Seconds (24.1-36.2)
[2022-12-09] MEDS: Pramipexole Di-HCl 1 MG Tablet 2 MG PO (20:43)
[2022-12-09] MEDS: Atorvastatin Calcium 10 MG Tablet PO (20:44)
[2022-12-09] MEDS: Senna/Docusate Sodium 1 Tablet 2 TABLET PO (20:44)
[2022-12-09 21:06] LABS: Bedside Glucose 146 mg/dL (74-106)
--- NOTE | 2022-12-09 22:10 | CPS ---
Patient brought in own bipap for night time use, however power cord is missing so it is unable to be used. Offered patient use of one of the hospitals bipap's but he declined.
[2022-12-10] VITALS (24 sets, daily range): BP systolic 101–136; BP diastolic 56–94; PULSE 67–70; RESP 16–27; TEMP 36.3–37.1; O2SAT 93–98; BMI 36.3
[2022-12-10 04:54] LABS: Absolute Lymphocyte Count 1.52 X10^3/uL (0.83-4.51); Absolute Neutrophil Count 6.9 X10^3/uL (2.0-7.7); Basophil# 0.07 X10^3/uL; Basophil% 0.7 % (0-1); Eosinophil# 0.24 X10^3/uL; Eosinophils% 2.4 % (0-5); Hematocrit 29.9 % (40-54); Hemoglobin 9.5 g/dL (13.0-16.5); Lymphocyte # 1.52 X10^3/ul (0.83-4.51); Lymphocyte % 15.3 % (19-41); Mean Corp Hgb Conc 31.8 g/dL (32-36); Mean Corpuscular Hgb 29.9 pg (27.0-32.0); Mean Platelet Vol. 10.5 fl (6.2-12.0); Monocyte# 1.09 X10^3/uL; NRBC Flagged by Analyzer 0.6 % (0-5); Neutrophil # 6.86 X10^3/uL (2.7-7.7); Neutrophil % 69.1 % (47-70); Platelet Count 198 K/mm3 (150-450); RBC Distribution Width CV 13.8 % (11.6-14.6); RBC Distribution Width SD 47.1 fl (35.1-43.9); Red Blood Count 3.18 M/mm3 (4.6-6.2); White Blood Count 9.9 K/mm3 (4.4-11.0)
[2022-12-10 05:06] LABS: Partial Thromboplast Time 59.3 Seconds (24.1-36.2)
[2022-12-10 05:08] LABS: Anion Gap 10 (5-15); BUN 93 mg/dL (7-18); BUN/Creat Ratio 23.3 RATIO (10-20); Calcium,Total 7.6 mg/dL (8.5-10.1); Chloride 105 mmol/L (98-107); Creatinine, Serum 3.99 mg/dL (0.70-1.30); EST Glomerular Filtration Rate 15 mL/min (>60); Est Glom Filt Rate - Afr Amer 19 mL/min (>60); Glucose 99 mg/dL (74-106); Potassium 3.9 mmol/L (3.5-5.1); Sodium Level 135 mmol/L (136-145)
[2022-12-10 07:11] LABS: Bedside Glucose 83 mg/dL (74-106)
[2022-12-10] MEDS: Amiodarone 200 MG Tablet PO ×2 (08:26→20:59)
[2022-12-10] MEDS: Metoprolol(XL)Succ 25 MG Tablet PO (08:27)
[2022-12-10] MEDS: Sertraline 50 MG Tablet 37.5 MG PO (08:27)
[2022-12-10] MEDS: Loratadine 10 MG Tablet PO (08:28)
[2022-12-10] MEDS: Insulin Glargine-YFGN 100 UNIT/ML Pen 30 UNIT SC (08:28)
[2022-12-10] MEDS: Famotidine 20 MG Tablet PO (08:28)
[2022-12-10] MEDS: Senna/Docusate Sodium 1 Tablet 2 TABLET PO (08:31)
[2022-12-10] MEDS: Finasteride 5 MG Tablet PO (08:32)
[2022-12-10] MEDS: PROGESTERONE, MICRONIZED 100 MG CAPSULE PO (08:32)
--- NOTE | 2022-12-10 09:08 | PCM.PN.REN ---
Subjective Subjective Resting quietly in bed. Denies any complaints. Reports appetite has improved. No overnight events. Objective Data Objective Data Vital Signs: Vital Signs Temp Pulse Resp BP Pulse Ox O2 Del Method O2 Flow Rate 97.3 F L 70 21 H 123/70 H 97 Room Air 2 12/10/22 00:00 12/10/22 08:27 12/10/22 07:00 12/10/22 08:27 12/10/22 07:00 12/10/22 07:00 12/09/22 07:00 Oxygen Flow Rate (L/min) 2 Oxygen Delivery Method Room Air Weight: 121.7 kg Body Mass Index (BMI) 36.3 Intake & Output: Intake and Output for Last 24 Hours 12/08/22 12/09/22 12/10/22 23:59 23:59 23:59 Intake Total 2105.13 / 2134.13 2739.87 / 2779.87 590 / 590 Output Total 100 / 100 300 / 300 600 / 600 Balance 2034. 2439.87 / 5879.87 -10 / -10 Lab / Micro Data Result Diagrams: 12/10/22 04:43 12/10/22 04:43 Labs: Laboratory Results - last 24 hr 12/09/22 09:25: APTT 213.1 H* 12/09/22 11:05: POC Glucose 165 H 12/09/22 16:13: POC Glucose 174 H 12/09/22 19:00: APTT 86.1 H 12/09/22 20:43: POC Glucose 146 H 12/10/22 04:43: WBC 9.9, RBC 3.18 L, Hgb 9.5 L, Hct 29.9 L, MCV 94.0, MCH 29.9, MCHC 31.8 L, RDW Std Deviation 47.1 H, RDW Coeff of Flavio 13.8, Plt Count 198, MPV 10.5, Immature Gran % (Auto) 1.500 H, Neut % (Auto) 69.1, Lymph % (Auto) 15.3 L, [place] % (Auto) 11.0 H, Eos % (Auto) 2.4, Baso % (Auto) 0.7, Absolute Neuts (auto) 6.9, Absolute Lymphs (auto) 1.52, Nucleated RBC % 0.6 12/10/22 04:43: Sodium 135 L, Potassium 3.9, Chloride 105, Carbon Dioxide 20.0 L, Anion Gap 10, BUN 93 H, Creatinine 3.99 H, Estim Creat Clear Calc 15.40, Est GFR (MDRD) Af Amer 19 L, Est GFR (MDRD) Non-Af 15 L, BUN/Creatinine Ratio 23.3 H, Glucose 99, Calcium 7.6 L 12/10/22 04:43: APTT 59.3 H 12/10/22 06:47: POC Glucose 83 Micro: Microbiology 12/07/22 21:30 Wound - Toe Gram Stain - Final 12/07/22 21:30 Wound - Toe Wound Culture - Preliminary Coag Negative Staph ABG Data ABG results: ABG 12/09/22 10:08 Specimen Type ART Sample Site L Radial pH 7.27 L Bicarbonate Actual 14.6 L Total CO2 16 Base Excess -12 L O2 Saturation 93 L O2 % 21 ABG pCO2 32.1 L ABG pO2 75 Bill Test Positive Radiography Diagnostic Testing: Radiology Impression Extremity Arterial Study 12/08/22 12:41 Interpretation Summary Right NANCY not able to be obtained due to non-compressible vessels. TBI and Doppler/PVR waveforms of the right leg normal at rest. Left NANCY 1.13, normal. Doppler/PVR waveforms of the left leg normal at rest. TBI diminished, pedal/digit disease vs spasm Ordering Physician: Helio Melendrez Referring Physician: Tosha Shrestha Performed By: Bobby Parada, RVT Physical Exam Narrative Alert, oriented x3, no overnight events s1s2, rate controlled Lung sounds clear anteriorly and posteriorly abdomen soft Trace lower extremity edema LLE wound Assessment & Plan Assessment/Plan (1) HORACE (acute kidney injury): PLAN: HORACE CKD 3B; Baseline creatinine around 1.6-1.8. Admitted to the ICU due to atrial fibrillation. Patient was scheduled for cardioversion but converted spontaneously. IV amiodarone discontinued and starting on oral amiodarone this morning. Postvoid bladder scan was about 200 cc, monitor for urinary retention. UOP so far 600ml today. Overall looked on the dry side and yesterday we gave a liter of IV fluids, bicarb gtt. Also bps were low. Serum creatinine peaked 4.55 mg/dL on 12/09. Today serum creatinine 3.99. Will hold off on any IVF today, encouraged patient to try and increase solute/fluid intake (patient states appetite is now improving). No acute indication for DATA REPORTING ANALYST, potassium and bicarb acceptable. Volume status acceptable, patient appears to be near euvolemic, even though he has history of heart failure, does not appear volume overloaded. Acidosis. Anion gap is slightly elevated, improved with IV bicarbonate. Hyperkalemia, resolved. Mostly mediated by acidosis. Atrial fibrillation. Spontaneously cardioverted, IV amiodarone discontinued. Blood pressures were low but have improved Acute osteomyelitis of left second digit planning amputation. On IV antibiotics, zosyn and vanco. monitor vanco levels.
[2022-12-10] MEDS: Insulin Lispro 100 UNIT/ML INSULN.PEN SC ×2 (11:43→20:59)
--- NOTE | 2022-12-10 11:43 | PCM.PN.HOSP ---
Reason for Visit Reason for Visit: Shortness of breath Subjective Subjective No significant issues overnight. Patient states he slept better. Patient did not end up requiring DONALD cardioversion as he spontaneously converted to sinus rhythm without intervention. He remains in a paced rhythm this morning with a rate of 70. Plan is for surgery tomorrow. Renal function is slowly improving. Objective Data Objective Data Vital Signs: Vital Signs Temp Pulse Resp BP Pulse Ox O2 Del Method O2 Flow Rate 97.8 F 70 19 H 124/69 H 96 Room Air 2 12/10/22 08:00 12/10/22 11:00 12/10/22 11:00 12/10/22 11:00 12/10/22 11:00 12/10/22 11:00 12/09/22 07:00 Oxygen Flow Rate (L/min) 2 Oxygen Delivery Method Room Air Weight: 121.7 kg Body Mass Index (BMI) 36.3 Intake & Output: Intake and Output for Last 24 Hours 12/08/22 12/09/22 12/10/22 23:59 23:59 23:59 Intake Total 2105.13 / 5.13 2739.87 / 2779.87 590 / 590 Output Total 100 / 100 300 / 300 600 / 600 Balance 2034. 2439.87 / 2479.87 -10 / -10 Lab / Micro Data Result Diagrams: 12/10/22 04:43 12/10/22 04:43 Labs: Laboratory Results - last 24 hr 12/09/22 16:13: POC Glucose 174 H 12/09/22 19:00: APTT 86.1 H 12/09/22 20:43: POC Glucose 146 H 12/10/22 04:43: WBC 9.9, RBC 3.18 L, Hgb 9.5 L, Hct 29.9 L, MCV 94.0, MCH 29.9, MCHC 31.8 L, RDW Std Deviation 47.1 H, RDW Coeff of Flavio 13.8, Plt Count 198, MPV 10.5, Immature Gran % (Auto) 1.500 H, Neut % (Auto) 69.1, Lymph % (Auto) 15.3 L, [place] % (Auto) 11.0 H, Eos % (Auto) 2.4, Baso % (Auto) 0.7, Absolute Neuts (auto) 6.9, Absolute Lymphs (auto) 1.52, Nucleated RBC % 0.6 12/10/22 04:43: Sodium 135 L, Potassium 3.9, Chloride 105, Carbon Dioxide 20.0 L, Anion Gap 10, BUN 93 H, Creatinine 3.99 H, Estim Creat Clear Calc 15.40, Est GFR (MDRD) Af Amer 19 L, Est GFR (MDRD) Non-Af 15 L, BUN/Creatinine Ratio 23.3 H, Glucose 99, Calcium 7.6 L 12/10/22 04:43: APTT 59.3 H 12/10/22 06:47: POC Glucose 83 Micro: Microbiology 12/07/22 21:30 Wound - Toe Gram Stain - Final 12/07/22 21:30 Wound - Toe Wound Culture - Preliminary Coag Negative Staph Gram positive lynette Radiography Diagnostic Testing: Radiology Impression Extremity Arterial Study 12/08/22 12:41 Interpretation Summary Right NANCY not able to be obtained due to non-compressible vessels. TBI and Doppler/PVR waveforms of the right leg normal at rest. Left NANCY 1.13, normal. Doppler/PVR waveforms of the left leg normal at rest. TBI diminished, pedal/digit disease vs spasm Ordering Physician: Helio Melendrez Referring Physician: Tosha Shrestha Performed By: Bobby Parada, NADIRA Physical Exam Const alert, oriented x3, no apparent distress and well nourished Constitutional Narrative: Morbidly obese, elderly, white male, sitting up in in bed, watching television, appears comfortable, nontoxic, patiently waiting for breakfast HEENT normocephalic, head/scalp atraumatic, moist oral mucous membranes and oropharynx normal HEENT Narrative: Mallampati is 3, no thrush Resp normal respiratory effort, no retractions, no use of accessory muscles and clear to auscultation bilaterally Resp Narrative: Diminished but clear, patient on room air Auscultation: Negative for rales, rhonchi or wheezes Cardio regular rate, regular rhythm, S1 normal heart sound, S2 normal heart sound, no rub, no gallops and no clicks; Negative for no murmurs Cardio Narrative: Converted to paced sinus rhythm GI normal to inspection, nondistended, normoactive bowel sounds, soft to palpation and non-tender GI Narrative: obese abdomen Extremity no clubbing, cyanosis or edema Extremity Narrative: 2+ pedal pulses Skin Skin Narrative: Images of toe wound noted however dressing is currently in place-dressing is clean dry and intact Neuro oriented x3, moves all extremities and no focal motor deficits Speech: speech normal Psych affect normal Psych Narrative: Very pleasant, appropriately interactive Assessment & Plan Assessment/Plan (1) Regular wide QRS complex tachycardia: (2) Type 2 diabetes mellitus with foot ulcer: (3) Acute osteomyelitis of toe of left foot: (4) HORAEC (acute kidney injury): (5) Hyponatremia: (6) Metabolic acidosis: (7) Transaminitis: (8) Leukocytosis: PLAN: Plan Regular wide-complex tachycardia -Patient spontaneously converted to normal sinus rhythm yesterday late morning and DONALD cardioversion was not required -Cardiology is following -Patient with history of tachybradycardia syndrome/SSS with recent cardiac catheterization which showed nonobstructive CAD -Permanent pacemaker placed in September -Cardiology is concerned this could be episodes of VT versus atrial flutter with 2-1 AV block -Cardiac enzymes have been normal -Flecainide discontinued/p.o. amiodarone discontinued -Patient transition from IV amiodarone to oral amiodarone today -Pacemaker was interrogated and shows normal function -Long-term anticoagulation with Eliquis 2.5 mg daily has been recommended however patient has pending surgery and therefore is on a heparin drip at this time per cardiology -Start Eliquis postoperatively when okay with podiatry -Per discussion with nursing cardiology has called up and is going to perform a DONALD with probable cardioversion if no clot is identified later this morning -Cardiology consulted-appreciate input Hypotension -Resolved Acidosis- -improving with improved renal function and bicarb given yesterday as pH was 7.27 on ABG -Suspect metabolic with renal disease -Anion gap is not elevated -Lactic acid is normal -Likely precipitated by his renal failure Acute osteomyelitis of the left second digit -Plan is for amputation on 12/11/2022 -Continue vancomycin and Zosyn -Wound culture preliminary shows coag negative staph and a gram-positive lynette -Wound care following Hyponatremia -Likely related to renal dysfunction and volume overload -Continues to improve and now almost baseline -Continue to monitor 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 -Baseline serum creatinine appears to be between 1.6 and 1.8 -Serum creatinine starting to trend down and was down from 4.55 yesterday to 3.99 today -Dental hydration was given by nephrology yesterday -HORACE is suspected to be related to ATN -Continue condom catheter with no obstructive symptoms present -Renally dose medications -Neurology is following-appreciate input -No acute need for dialysis at this time DM-2 -A1c is 6.4 so patient at baseline is well controlled -Suspect acute elevation is related to acute hospitalization and infection -Fasting blood sugar improved this morning and was down from 190 yesterday to 99 this morning -Continue Lantus 30 units at at bedtime -Continue sliding scale but increase from medium dose to high-dose intensity with elevated blood sugars -Diabetic/cardiac diet Chronic HFpEF -Unable to currently diurese secondary to HORACE and hypotension -Patient is stable on room air with oxygen saturation of 96% -Monitor volume status Chronic anemia -Appears stable at this time despite anticoagulation -Continue to monitor Vitamin D deficiency -Continue monthly ergocalciferol with follow-up vitamin D level as previously requested GERD/history of PUD and GI bleed -Continue famotidine Restless leg syndrome -Continue Mirapex at at bedtime HTN/HPL -Hold home hydralazine with soft blood pressures -Consider reinitiation next 24 hours if remains stable with regards to blood pressure and heart rates -Continue home metoprolol with tachycardia with hold parameters -Hold home Lasix -Continue home atorvastatin Vertigo -No current issue/meclizine if needed History of stroke -Patient is currently fully anticoagulated with heparin drip -Start Eliquis 2.5 mg p.o. twice daily after surgery once okay with podiatry MACHELLE -Continue nightly BiPAP History of previous VTE -Patient on heparin drip BPH -Continue home Proscar Anxiety/depression -Continue sertraline DVT prophylaxis -Heparin drip -SCDs ordered for disruption of heparin with pending surgery CODE STATUS -Full code as discussed on admission Charges/Coding Visit Charges Inpatient E&M: 16347 Subs Hosp L2
[2022-12-10] MEDS: HEPARIN/D5w 25,000 UNITS 25,000 UNITS/250 ML IV.SOLN. 9 UNITS CONT INF (11:45)
[2022-12-10 12:10] LABS: Bedside Glucose 165 mg/dL (74-106)
[2022-12-10 12:12] LABS: Partial Thromboplast Time 59.8 Seconds (24.1-36.2)
[2022-12-10 16:26] LABS: Bedside Glucose 128 mg/dL (74-106)
--- NOTE | 2022-12-10 19:34 | CPS ---
Patient refused PAP therapy for the night. On room air 97%.
[2022-12-10] MEDS: Pramipexole Di-HCl 1 MG Tablet 2 MG PO (20:58)
[2022-12-10] MEDS: Atorvastatin Calcium 10 MG Tablet PO (20:58)
[2022-12-10 21:16] LABS: Bedside Glucose 155 mg/dL (74-106)
[2022-12-11] VITALS (24 sets, daily range): BP systolic 103–150; BP diastolic 42–88; PULSE 70; RESP 16–28; TEMP 36–37.2; O2SAT 92–100; BMI 38.8; BMI 38.7
[2022-12-11 00:37] LABS: Vancomycin, Trough Level 23.2 ug/mL (5.0-15.0)
--- NOTE | 2022-12-11 00:52 | PCM.RX.CS ---
Consult Pharmacy has been consulted to manage selected antiobiotic: Vancomycin Type of Consult: Follow-up Labs: Sodium 135 mmol/L (136-145) L 12/10/22 04:43 Potassium 3.9 mmol/L (3.5-5.1) 12/10/22 04:43 Chloride 105 mmol/L (98-107) 12/10/22 04:43 Carbon Dioxide 20.0 mmol/L (21.0-32.0) L 12/10/22 04:43 Anion Gap 10 (5-15) 12/10/22 04:43 BUN 93 mg/dL (7-18) H 12/10/22 04:43 Creatinine 3.99 mg/dL (0.70-1.30) H 12/10/22 04:43 Est GFR (MDRD) Af Amer 19 mL/min (>60) L 12/10/22 04:43 Est GFR (MDRD) Non-Af 15 mL/min (>60) L 12/10/22 04:43 BUN/Creatinine Ratio 23.3 RATIO (10-20) H 12/10/22 04:43 Glucose 99 mg/dL (74-106) 12/10/22 04:43 Vancomycin Trough 23.2 ug/mL (5.0-15.0) H 12/11/22 00:00 Microbiology: Microbiology 12/07/22 21:30 Wound - Toe Gram Stain - Final 12/07/22 21:30 Wound - Toe Wound Culture - Preliminary Coag Negative Staph Gram positive lynette Goal Trough: 15-20 mcg/mL Pharmacy Plan for Drug Dosing: Pharmacy Service will continue to monitor and adjust dosing as required. TROUGH 23.2 @ 27.5 HOURS. CURRENT DOSE HELD, DRAW RANDOM LEVEL @ 1200 Follow-Up Labs: Trough Vancomycin Labs to be done on [date and time ordered]: 12/11 @ 1200
[2022-12-11 04:20] LABS: Absolute Lymphocyte Count 1.08 X10^3/uL (0.83-4.51); Absolute Neutrophil Count 5.3 X10^3/uL (2.0-7.7); Basophil# 0.04 X10^3/uL; Basophil% 0.5 % (0-1); Eosinophil# 0.24 X10^3/uL; Eosinophils% 3.2 % (0-5); Hematocrit 29.8 % (40-54); Hemoglobin 9.4 g/dL (13.0-16.5); Lymphocyte # 1.08 X10^3/ul (0.83-4.51); Lymphocyte % 14.4 % (19-41); Mean Corp Hgb Conc 31.5 g/dL (32-36); Mean Corpuscular Hgb 29.9 pg (27.0-32.0); Mean Corpuscular Volume 94.9 fL (80-94); Mean Platelet Vol. 10.3 fl (6.2-12.0); Monocyte# 0.81 X10^3/uL; Monocyte% 10.8 % (0-10); NRBC Flagged by Analyzer 0 % (0-5); Neutrophil # 5.27 X10^3/uL (2.7-7.7); Platelet Count 204 K/mm3 (150-450); Red Blood Count 3.14 M/mm3 (4.6-6.2); White Blood Count 7.5 K/mm3 (4.4-11.0)
[2022-12-11 04:37] LABS: Partial Thromboplast Time 59.5 Seconds (24.1-36.2)
[2022-12-11 04:42] LABS: Anion Gap 5 (5-15); BUN 80 mg/dL (7-18); BUN/Creat Ratio 27.1 RATIO (10-20); Calcium,Total 7.9 mg/dL (8.5-10.1); Chloride 110 mmol/L (98-107); Creatinine, Serum 2.95 mg/dL (0.70-1.30); EST Glomerular Filtration Rate 22 mL/min (>60); Est Glom Filt Rate - Afr Amer 26 mL/min (>60); Estimated Creatinine Clearance 20.82 ml/min; Glucose 87 mg/dL (74-106); Potassium 4.3 mmol/L (3.5-5.1); Sodium Level 138 mmol/L (136-145)
[2022-12-11 08:30] LABS: Bedside Glucose 69 mg/dL (74-106)
[2022-12-11 08:30] LABS: Bedside Glucose 74 mg/dL (74-106)
[2022-12-11 09:15] LABS: Bedside Glucose 71 mg/dL (74-106)
--- NOTE | 2022-12-11 10:13 | PCM.PROGNOTE ---
Subjective Subjective no changes overnight, no constitutionals. Objective Data Objective Data Vital Signs: Vital Signs Temp Pulse Resp BP Pulse Ox O2 Del Method O2 Flow Rate 96.8 F L 70 24 H 133/62 H 93 Room Air 2 12/11/22 08:00 12/11/22 09:00 12/11/22 09:00 12/11/22 09:00 12/11/22 09:00 12/11/22 09:00 12/09/22 07:00 Oxygen Flow Rate (L/min) 2 Oxygen Delivery Method Room Air Weight: 129.8 kg Body Mass Index (BMI) 38.8 Intake & Output: Intake and Output for Last 24 Hours 12/09/22 12/10/22 12/11/22 23:59 23:59 23:59 Intake Total 2989.87 / 3029.87 1270.35 / 1270.35 300 / 300 Output Total 300 / 300 2000 / 2150 950 / 950 Balance 2689.87 / 2729.87 -729.65 / -879.65 -650 / -650 Lab / Micro Data Result Diagrams: 12/11/22 04:10 12/11/22 04:10 Labs: Laboratory Results - last 24 hr 12/10/22 11:39: POC Glucose 165 H 12/10/22 11:40: APTT 59.8 H 12/10/22 16:07: POC Glucose 128 H 12/10/22 20:53: POC Glucose 155 H 12/11/22 00:00: Vancomycin Trough 23.2 H 12/11/22 04:10: WBC 7.5, RBC 3.14 L, Hgb 9.4 L, Hct 29.8 L, MCV 94.9 H, MCH 29.9, MCHC 31.5 L, RDW Std Deviation 47.0 H, RDW Coeff of Flavio 14.0, Plt Count 204, MPV 10.3, Immature Gran % (Auto) 1.100 H, Neut % (Auto) 70.0, Lymph % (Auto) 14.4 L, [place] % (Auto) 10.8 H, Eos % (Auto) 3.2, Baso % (Auto) 0.5, Absolute Neuts (auto) 5.3, Absolute Lymphs (auto) 1.08, Nucleated RBC % 0 12/11/22 04:10: Sodium 138, Potassium 4.3, Chloride 110 H, Carbon Dioxide 23.0, Anion Gap 5, BUN 80 H, Creatinine 2.95 H, Estim Creat Clear Calc 20.82, Est GFR (MDRD) Af Amer 26 L, Est GFR (MDRD) Non-Af 22 L, BUN/Creatinine Ratio 27.1 H, Glucose 87, Calcium 7.9 L 12/11/22 04:10: APTT 59.5 H 12/11/22 06:33: POC Glucose 69 L 12/11/22 06:36: POC Glucose 74 12/11/22 08:53: POC Glucose 71 L Micro: Microbiology 12/07/22 21:30 Wound - Toe Gram Stain - Final 12/07/22 21:30 Wound - Toe Wound Culture - Final Coag Negative Staph Gram positive lynette Physical Exam Narrative Left 2nd toe with ulceration to the distal tip, there is nonviable tissue and some purulence localized to the area, also some edema and erythema as well, ulcer probes to distal phalanx bone, there is no streaking, no other open lesions bilateral foot, CFT < 2 seconds bilateral toes, Sensation diminished c/w chronic peripheral neuropathy, 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 Const alert and oriented x3 Assessment & Plan Assessment/Plan (1) Acute osteomyelitis of toe of left foot: (2) DM type 2 with diabetic peripheral neuropathy: (3) Type 2 diabetes mellitus with foot ulcer: PLAN: Plan Evaluation performed. Reviewed diagnostic data. There is exposed bone left 2nd toe, there is purulence, and some localized edema and cellulitis - clinically osteomyelitis is present. Discussed further options with patient and he would like to proceed with left 2nd toe amputation. This was discussed with him and we will plan to proceed with this today. Applied gauze, kerlix and isa dressing. Patient is on IV antibiotic therapy vanc and zosyn. No weight on left forefoot. Podiatry will continue to follow, thank you for consultation. Plan for partial left 2nd digit amputation 12/11/22 at 11:00am. Patient likely will not need IV antibiotics upon discharge after amputation.
[2022-12-11] MEDS: 0.9% Saline Lock 10 ML Syringe IV ×2 (10:24→20:08)
[2022-12-11] MEDS: Dextrose 50%-Water 25 GM/50 ML DISP.SYRIN IV (10:24)
[2022-12-11 10:30] LABS: Bedside Glucose 63 mg/dL (74-106)
[2022-12-11 11:45] LABS: Bedside Glucose 108 mg/dL (74-106)
[2022-12-11] MEDS: Bupivacaine Mpf 0.5% 30 ML VIAL (13:06)
--- NOTE | 2022-12-11 13:21 | PCM.OPRPT ---
Problems Associated Problem List Diagnoses (1) Acute osteomyelitis of left ankle: (2) Non-pressure chronic ulcer of other part of left foot with necrosis of bone: Report of Operation Date of Procedure: 12/11/22 Pre-Operative Diagnosis: 1) Left 2nd toe distal phalanx osteomyelitis 2) Left 2nd toe wound and hammertoe Post-Operative Diagnosis: Same Surgery/Procedure Performed:: Left partial 2nd toe amputation Description of Surgical Findings:: Patient brought back into the operating room and placed comfortably in the supine position on the operating room table. Patient induced under mac anesthesia. Left hip bumped to knock out external rotation. Left ankle tourniquet applied. Left 2nd digit block performed pre operatively using 10cc of 0.25%marcaine plain. Left lower extremity scrubbed, prepped and draped using aseptic fashion. A fishmouth incison was drawn along the distal tuft of the left 2nd digit. Left lower extremity was elevated and exanguinated, TQ inflated to 250mmHG. Incision was made full thickness down to bone and distal phalanx was disarticulated at the DIPJ, for adequate soft tissue coverage additional middle phalanx was resected using bone cutting forceps. This bone and tissue was sent to microbiology to culture. Incision flushed with copious normal sterile saline. Incision closed simple interupted technique with 4-0 prolene. Tourniquet let down. Dressed with bacitracin, adaptic, 4x4s, kerlix and isa. Patient transported to pacu with vital signs stable and vascular status intact to all digits. Patient toelrated procedure and anesthesia well in apparent satisfactory condition. Surgeon: Edward Carr string studies director: None (tonya martin) Type of Anesthesia: MAC Estimated Blood Loss (mL): minimal Description of Procedure: see above Complications none Admit VTE Documentation VTE Present on Admission: Yes VTE Pharm Prophylaxis ordered?: Yes
--- NOTE | 2022-12-11 13:35 | RAD_ITS ---
STUDY: X-RAY - LEFT FOOT CLINICAL: Male, 82 years old. post op left 2nd toe amputation TECHNIQUE: 3 view(s) of the foot. COMPARISON: 12/07/2022 FINDINGS: There is demineralization of the rear and midfoot bones. Degenerative subtalar, talonavicular, calcaneocuboid, tarsal and tarsometatarsal articulations. Cortical screws and hardware overlie the calcaneus and proximal partial bones. There is demineralization of the metatarsi. There is degenerative arthrosis of the metatarsophalangeal joint of the hallux . Normal tibial and fibular sesamoid bones. There is degenerative arthrosis of the interphalangeal joint of the great toe. Demineralized phalanges of the great toe. Degenerative second through fifth metatarsophalangeal joints. There is amputation of the distal phalanx of the second digit with surrounding adequate soft tissue. The soft tissue structures are unremarkable. RAD/Foot min 3 Views IMPRESSION: 1. Distal second digit amputation showing adequate soft tissue overlying the amputation site. Diffuse demineralization and degenerative changes as above with noted hardware. Electronically Signed: Lalo Hennessy DO at 17:27 EDT ,
--- NOTE | 2022-12-11 13:37 | PCM.PN.REN ---
Subjective Subjective no new events Objective Data Objective Data Vital Signs: Vital Signs Temp Pulse Resp BP Pulse Ox O2 Del Method O2 Flow Rate 97.8 F 70 16 134/61 H 100 Simple Mask 8 12/11/22 13:22 12/11/22 13:22 12/11/22 13:22 12/11/22 13:22 12/11/22 13:22 12/11/22 13:22 12/11/22 13:22 Oxygen Flow Rate (L/min) 8 Oxygen Delivery Method Simple Mask Weight: 129.8 kg Body Mass Index (BMI) 38.7 Intake & Output: Intake and Output for Last 24 Hours 12/09/22 12/10/22 12/11/22 23:59 23:59 23:59 Intake Total 2989.87 / 3029.87 1270.35 / 1270.35 556.85 / 556.85 Output Total 300 / 300 2000 / 2150 1450 / 1450 Balance 2689.87 / 2729.87 -729.65 / -879.65 -893.15 / -893.15 Lab / Micro Data Result Diagrams: 12/11/22 04:10 12/11/22 04:10 Labs: Laboratory Results - last 24 hr 12/10/22 16:07: POC Glucose 128 H 12/10/22 20:53: POC Glucose 155 H 12/11/22 00:00: Vancomycin Trough 23.2 H 12/11/22 04:10: WBC 7.5, RBC 3.14 L, Hgb 9.4 L, Hct 29.8 L, MCV 94.9 H, MCH 29.9, MCHC 31.5 L, RDW Std Deviation 47.0 H, RDW Coeff of Flavio 14.0, Plt Count 204, MPV 10.3, Immature Gran % (Auto) 1.100 H, Neut % (Auto) 70.0, Lymph % (Auto) 14.4 L, [place] % (Auto) 10.8 H, Eos % (Auto) 3.2, Baso % (Auto) 0.5, Absolute Neuts (auto) 5.3, Absolute Lymphs (auto) 1.08, Nucleated RBC % 0 12/11/22 04:10: Sodium 138, Potassium 4.3, Chloride 110 H, Carbon Dioxide 23.0, Anion Gap 5, BUN 80 H, Creatinine 2.95 H, Estim Creat Clear Calc 20.82, Est GFR (MDRD) Af Amer 26 L, Est GFR (MDRD) Non-Af 22 L, BUN/Creatinine Ratio 27.1 H, Glucose 87, Calcium 7.9 L 12/11/22 04:10: APTT 59.5 H 12/11/22 06:33: POC Glucose 69 L 12/11/22 06:36: POC Glucose 74 12/11/22 08:53: POC Glucose 71 L 12/11/22 10:12: POC Glucose 63 L 12/11/22 11:26: POC Glucose 108 H Micro: Microbiology 12/07/22 21:30 Wound - Toe Gram Stain - Final 12/07/22 21:30 Wound - Toe Wound Culture - Final Coag Negative Staph Gram positive lynette Physical Exam Narrative Alert, oriented x3, no overnight events s1s2, rate controlled Lung sounds clear anteriorly and posteriorly abdomen soft Trace lower extremity edema LLE wound Assessment & Plan Assessment/Plan (1) HORACE (acute kidney injury): PLAN: HORACE CKD 3B; Baseline creatinine around 1.6-1.8. Admitted to the ICU due to atrial fibrillation. Patient was scheduled for cardioversion but converted spontaneously Hyperkalemia, resolved. Mostly mediated by acidosis. Atrial fibrillation. Spontaneously cardioverted. Blood pressures were low but have improved Acute osteomyelitis of left second digit planning amputation today
[2022-12-11 14:15] LABS: Bedside Glucose 135 mg/dL (74-106)
[2022-12-11] MEDS: PROGESTERONE, MICRONIZED 100 MG CAPSULE PO (15:15)
[2022-12-11] MEDS: Amiodarone 200 MG Tablet PO ×2 (15:16→22:02)
[2022-12-11] MEDS: Metoprolol(XL)Succ 25 MG Tablet PO (15:16)
[2022-12-11] MEDS: Finasteride 5 MG Tablet PO (15:16)
[2022-12-11] MEDS: Loratadine 10 MG Tablet PO (15:16)
[2022-12-11] MEDS: Sertraline 50 MG Tablet 37.5 MG PO (15:16)
[2022-12-11] MEDS: Famotidine 20 MG Tablet PO (15:16)
[2022-12-11] MEDS: Juven (unflavored) Packet 1 PACKET PO (15:22)
[2022-12-11 15:50] LABS: Bedside Glucose 72 mg/dL (74-106)
--- NOTE | 2022-12-11 17:25 | PN.HOSP_ITS ---
Subjective Subjective Denies any shortness of breath today. Doing well, no issues overnight. Renal function remains elevated but improving Objective Data Objective Data Vital Signs: Vital Signs Temp Pulse Resp BP Pulse Ox O2 Del Method O2 Flow Rate 97.9 F 70 16 150/71 H 97 Room Air 8 12/11/22 15:12 12/11/22 15:16 12/11/22 15:12 12/11/22 15:12 12/11/22 15:12 12/11/22 15:15 12/11/22 13:22 Oxygen Flow Rate (L/min) 8 Oxygen Delivery Method Room Air Weight: 286 lb 2.56 oz Body Mass Index (BMI) 38.7 Intake & Output: Intake and Output for Last 24 Hours 12/10/22 12/11/22 12/12/22 03:59 03:59 03:59 Intake Total 2800.54 / 2800.54 1280.35 / 1280.35 526.85 / 526.85 Output Total 300 / 300 2150 / 2150 1300 / 1300 Balance 2500.54 / 2500.54 -869.65 / -869.65 -773.15 / -773.15 Lab / Micro Data Result Diagrams: 12/11/22 04:10 12/11/22 04:10 Labs: Laboratory Results - last 24 hr 12/10/22 20:53: POC Glucose 155 H 12/11/22 00:00: Vancomycin Trough 23.2 H 12/11/22 04:10: WBC 7.5, RBC 3.14 L, Hgb 9.4 L, Hct 29.8 L, MCV 94.9 H, MCH 29.9, MCHC 31.5 L, RDW Std Deviation 47.0 H, RDW Coeff of Flavio 14.0, Plt Count 204, MPV 10.3, Immature Gran % (Auto) 1.100 H, Neut % (Auto) 70.0, Lymph % (Auto) 14.4 L, [place] % (Auto) 10.8 H, Eos % (Auto) 3.2, Baso % (Auto) 0.5, Absolute Neuts (auto) 5.3, Absolute Lymphs (auto) 1.08, Nucleated RBC % 0 12/11/22 04:10: Sodium 138, Potassium 4.3, Chloride 110 H, Carbon Dioxide 23.0, Anion Gap 5, BUN 80 H, Creatinine 2.95 H, Estim Creat Clear Calc 20.82, Est GFR (MDRD) Af Amer 26 L, Est GFR (MDRD) Non-Af 22 L, BUN/Creatinine Ratio 27.1 H, Glucose 87, Calcium 7.9 L 12/11/22 04:10: APTT 59.5 H 12/11/22 06:33: POC Glucose 69 L 12/11/22 06:36: POC Glucose 74 12/11/22 08:53: POC Glucose 71 L 12/11/22 10:12: POC Glucose 63 L 12/11/22 10:43: POC Glucose 135 H 12/11/22 11:26: POC Glucose 108 H 12/11/22 15:18: POC Glucose 72 L Micro: Microbiology 12/07/22 21:30 Wound - Toe Gram Stain - Final 12/07/22 21:30 Wound - Toe Wound Culture - Final Coag Negative Staph Gram positive lynette Physical Exam Narrative General: Alert, Oriented x3, Cooperative, No apparent distress HEENT: Atraumatic, PERRLA, EOMI, Normocephalic Oral: Moist Mucosa Neck: Supple, No JVD Lungs: Diminished, Normal air movement, No rhonchi, No wheeze, No rales Cardiovascular: Regular rate, Regular Rhythm, Normal S1, Normal S2, No murmurs Abdomen: Soft, Non Tender, Non-Distended, No Hepato-splenomegaly Extremities: No edema, Capillary Refill Less than 3 Seconds Skin: Left toe currently dressed photograph reviewed Musculoskeletal: No Tenderness to Palpation of Joints or Extremities Neurological: Cranial nerves II-XII grossly intact, Motor Exam 5/5 strength throughout, Sensory exam intact to light touch and pain Psych/Mental Status: Normal Affect, Appropriate Assessment & Plan Assessment/Plan (1) Regular wide QRS complex tachycardia: (2) Type 2 diabetes mellitus with foot ulcer: (3) Acute osteomyelitis of toe of left foot: (4) HORACE (acute kidney injury): (5) Hyponatremia: (6) Metabolic acidosis: (7) Transaminitis: (8) Leukocytosis: PLAN: Plan 1.? Chronic diastolic CHF/HTN/HLD/paroxysmal A-fib with wide-complex tachycardia ? He was scheduled for cardioversion but he spontaneously converted on amiodarone ? Blood pressure currently stable ? Pacemaker in place ? Continue with his home blood pressure medications ? Continue with his statin ?Flecainide was transitioned to amiodarone given his issues recently with tachycardia ? Appreciate cardiology's assistance ? Start Eliquis 2.5 g twice daily on discharge 2. Acute renal failure with CKD 3B ? Acute renal failure likely secondary to hypotension from his wide-complex tachycardia ? His renal function is improving as his heart rate has improved. ? He did develop metabolic acidosis which has led to hyperkalemia which has resolved. ? We will continue to hold his Lasix, appreciate nephrology's assistance 3.? DM2/acute osteomyelitis of his left second digit ? Stable, will continue with his Lantus ? Sliding scale with Accu-Cheks ACHS ? We will make adjustments as necessary ? Wound culture with gram-negative staph and gram-positive lynette, appreciate podiatry's assistance we will plan for amputation today 4.? BPH ? Stable ? Continue with finasteride 5.? Anxiety/depression ? Stable ? Continue with Zoloft 6. GERD ? Stable ? Continue with famotidine DVT: Heparin drip Charges/Coding Visit Charges Inpatient E&M: 78247 Subs Hosp L2
--- NOTE | 2022-12-11 18:29 | PCM.RX.CS ---
Consult Pharmacy has been consulted to manage selected antiobiotic: Vancomycin Type of Consult: Follow-up Labs: Sodium 138 mmol/L (136-145) 12/11/22 04:10 Potassium 4.3 mmol/L (3.5-5.1) 12/11/22 04:10 Chloride 110 mmol/L (98-107) H 12/11/22 04:10 Carbon Dioxide 23.0 mmol/L (21.0-32.0) 12/11/22 04:10 Anion Gap 5 (5-15) 12/11/22 04:10 BUN 80 mg/dL (7-18) H 12/11/22 04:10 Creatinine 2.95 mg/dL (0.70-1.30) H 12/11/22 04:10 Est GFR (MDRD) Af Amer 26 mL/min (>60) L 12/11/22 04:10 Est GFR (MDRD) Non-Af 22 mL/min (>60) L 12/11/22 04:10 BUN/Creatinine Ratio 27.1 RATIO (10-20) H 12/11/22 04:10 Glucose 87 mg/dL (74-106) 12/11/22 04:10 Vancomycin Trough 23.2 ug/mL (5.0-15.0) H 12/11/22 00:00 Random Vancomycin 18.0 ug/mL (0.0-15.0) H 12/11/22 16:56 Microbiology: Microbiology 12/07/22 21:30 Wound - Toe Gram Stain - Final 12/07/22 21:30 Wound - Toe Wound Culture - Final Coag Negative Staph Gram positive lynette Goal Trough: 15-20 mcg/mL Pharmacy Plan for Drug Dosing: VANCOMYCIN LEVEL RECEIVED Current Vancomycin Dose: ON HOLD- Last dose of 1250mg IV administered 12/09 @2031 Number of Doses Received: 3 prior to med being placed on hold Vancomycin Level: 18 Hours Since Last Dose: 44.5hr Renal Function: 2.95 Renal Function Trend: improving slowly (was 3.99 yesterday) Lab/Micro: no new Vancomycin Plan/Comments: Patient had a random vancomycin trough which resulted in a value of 18 (goal 15-20). Since the patient has unstable renal function, will dose based on random levels until SCr normalizes. Will order a 1000mg IV x1 dose now and obtain a random trough 12/13 with AM labs to evaluate dosing at that time. Pending Level: *RANDOM* 12/13/22 @0600 Pharmacy Service will continue to monitor and adjust dosing as required.
--- NOTE | 2022-12-11 19:25 | CPS ---
pt has home unit
[2022-12-11] MEDS: Vancomycin IV 1,000 MG/200 ML BAG 200 MG IV (20:08)
[2022-12-11] MEDS: Atorvastatin Calcium 10 MG Tablet PO (22:02)
[2022-12-11] MEDS: Pramipexole Di-HCl 1 MG Tablet 2 MG PO (22:02)
[2022-12-11] MEDS: hydrALAZINE 25 MG Tablet PO (22:03)
[2022-12-11 22:41] LABS: Bedside Glucose 136 mg/dL (74-106)
[2022-12-12] VITALS (9 sets, daily range): BP systolic 124–154; BP diastolic 51–70; PULSE 70–71; RESP 16–19; TEMP 36.6–36.9; O2SAT 95–100
[2022-12-12] MEDS: 0.9% Saline Lock 10 ML Syringe IV ×2 (06:06→21:54)
[2022-12-12 06:10] LABS: Absolute Lymphocyte Count 1.13 X10^3/uL (0.83-4.51); Absolute Neutrophil Count 5.7 X10^3/uL (2.0-7.7); Basophil# 0.05 X10^3/uL; Basophil% 0.6 % (0-1); Eosinophil# 0.31 X10^3/uL; Eosinophils% 3.8 % (0-5); Hematocrit 32.3 % (40-54); Hemoglobin 9.9 g/dL (13.0-16.5); Lymphocyte # 1.13 X10^3/ul (0.83-4.51); Lymphocyte % 13.9 % (19-41); Mean Corp Hgb Conc 30.7 g/dL (32-36); Mean Corpuscular Hgb 29.8 pg (27.0-32.0); Mean Corpuscular Volume 97.3 fL (80-94); Mean Platelet Vol. 10.1 fl (6.2-12.0); Monocyte# 0.88 X10^3/uL; Monocyte% 10.8 % (0-10); NRBC Flagged by Analyzer 0 % (0-5); Neutrophil # 5.69 X10^3/uL (2.7-7.7); Platelet Count 206 K/mm3 (150-450); RBC Distribution Width CV 14.3 % (11.6-14.6); RBC Distribution Width SD 49.9 fl (35.1-43.9); Red Blood Count 3.32 M/mm3 (4.6-6.2); White Blood Count 8.1 K/mm3 (4.4-11.0)
[2022-12-12 06:46] LABS: Anion Gap 4 (5-15); BUN 59 mg/dL (7-18); BUN/Creat Ratio 27.7 RATIO (10-20); Calcium,Total 8.6 mg/dL (8.5-10.1); Chloride 117 mmol/L (98-107); Creatinine, Serum 2.13 mg/dL (0.70-1.30); EST Glomerular Filtration Rate 32 mL/min (>60); Est Glom Filt Rate - Afr Amer 38 mL/min (>60); Estimated Creatinine Clearance 28.84 ml/min; Glucose 110 mg/dL (74-106); Potassium 4.4 mmol/L (3.5-5.1); Sodium Level 142 mmol/L (136-145)
[2022-12-12 06:55] LABS: Bedside Glucose 113 mg/dL (74-106)
[2022-12-12] MEDS: Juven (unflavored) Packet 1 PACKET PO ×2 (07:42→16:01)
[2022-12-12] MEDS: Ferrous Sulfate 325 MG Tablet PO (07:43)
[2022-12-12] MEDS: Finasteride 5 MG Tablet PO (08:49)
[2022-12-12] MEDS: hydrALAZINE 25 MG Tablet PO ×2 (08:49→22:05)
[2022-12-12] MEDS: PROGESTERONE, MICRONIZED 100 MG CAPSULE PO (08:49)
[2022-12-12] MEDS: Sertraline 50 MG Tablet 37.5 MG PO (08:49)
[2022-12-12] MEDS: Famotidine 20 MG Tablet PO (08:50)
[2022-12-12] MEDS: Amiodarone 200 MG Tablet PO ×2 (08:50→22:05)
[2022-12-12] MEDS: Metoprolol(XL)Succ 25 MG Tablet PO (08:50)
[2022-12-12] MEDS: Loratadine 10 MG Tablet PO (08:50)
[2022-12-12] MEDS: Insulin Glargine-YFGN 100 UNIT/ML Pen 30 UNIT SC (08:52)
--- NOTE | 2022-12-12 09:04 | WOUNDNOTE ---
wound photo: left 2nd toe
--- NOTE | 2022-12-12 09:04 | WOUNDNOTE ---
wound photo: left 2nd toe
--- NOTE | 2022-12-12 09:47 | PN.HOSP_ITS ---
Subjective Subjective Doing well, no issues overnight. He remains in normal sinus rhythm, with minimal pain after amputation Objective Data Objective Data Vital Signs: Vital Signs Temp Pulse Resp BP Pulse Ox O2 Del Method O2 Flow Rate 98.4 F 71 19 H 141/66 H 97 Room Air 8 12/12/22 04:46 12/12/22 08:50 12/12/22 04:46 12/12/22 08:50 12/12/22 06:56 12/12/22 07:45 12/11/22 13:22 Oxygen Flow Rate (L/min) 8 Oxygen Delivery Method Room Air Weight: 286 lb 2.56 oz Body Mass Index (BMI) 38.7 Intake & Output: Intake and Output for Last 24 Hours 12/11/22 12/12/22 12/13/22 03:59 03:59 03:59 Intake Total 1280.35 / 1280.35 1306.85 / 1306.85 Output Total 2150 / 2150 1300 / 1300 Balance -869.65 / -869.65 6.85 / 6.85 Lab / Micro Data Result Diagrams: 12/12/22 05:19 12/12/22 05:19 Labs: Laboratory Results - last 24 hr 12/11/22 10:12: POC Glucose 63 L 12/11/22 10:43: POC Glucose 135 H 12/11/22 11:26: POC Glucose 108 H 12/11/22 15:18: POC Glucose 72 L 12/11/22 16:56: Random Vancomycin 18.0 H 12/11/22 22:01: POC Glucose 136 H 12/12/22 05:19: WBC 8.1, RBC 3.32 L, Hgb 9.9 L, Hct 32.3 L, MCV 97.3 H, MCH 29.8, MCHC 30.7 L, RDW Std Deviation 49.9 H, RDW Coeff of Flavio 14.3, Plt Count 206, MPV 10.1, Immature Gran % (Auto) 0.900, Neut % (Auto) 70.0, Lymph % (Auto) 13.9 L, [place] % (Auto) 10.8 H, Eos % (Auto) 3.8, Baso % (Auto) 0.6, Absolute Neuts (auto) 5.7, Absolute Lymphs (auto) 1.13, Nucleated RBC % 0 12/12/22 05:19: Sodium 142, Potassium 4.4, Chloride 117 H, Carbon Dioxide 21.0, Anion Gap 4 L, BUN 59 H, Creatinine 2.13 H, Estim Creat Clear Calc 28.84, Est GFR (MDRD) Af Amer 38 L, Est GFR (MDRD) Non-Af 32 L, BUN/Creatinine Ratio 27.7 H , Glucose 110 H, Calcium 8.6 12/12/22 06:33: POC Glucose 113 H Micro: Microbiology 12/07/22 21:30 Wound - Toe Gram Stain - Final 12/07/22 21:30 Wound - Toe Wound Culture - Final Coag Negative Staph Gram positive lynette Radiography Diagnostic Testing: Radiology Impression Foot X-Ray 12/11/22 13:35 IMPRESSION: 1. Distal second digit amputation showing adequate soft tissue overlying the amputation site. Diffuse demineralization and degenerative changes as above with noted hardware. Electronically Signed: Lalo Hennessy, at 17:27 EDT , Physical Exam Narrative General: Alert, Oriented x3, Cooperative, No apparent distress HEENT: Atraumatic, PERRLA, EOMI, Normocephalic Oral: Moist Mucosa Neck: Supple, No JVD Lungs: Diminished, Normal air movement, No rhonchi, No wheeze, No rales Cardiovascular: Regular rate, Regular Rhythm, Normal S1, Normal S2, No murmurs Abdomen: Soft, Non Tender, Non-Distended, No Hepato-splenomegaly Extremities: No edema, Capillary Refill Less than 3 Seconds Skin: Left toe status post amputation dressing intact Musculoskeletal: No Tenderness to Palpation of Joints or Extremities Neurological: Cranial nerves II-XII grossly intact, Motor Exam 5/5 strength throughout, Sensory exam intact to light touch and pain Psych/Mental Status: Normal Affect, Appropriate Assessment & Plan Assessment/Plan (1) Regular wide QRS complex tachycardia: (2) Type 2 diabetes mellitus with foot ulcer: (3) Acute osteomyelitis of toe of left foot: (4) HORACE (acute kidney injury): (5) Hyponatremia: (6) Metabolic acidosis: (7) Transaminitis: (8) Leukocytosis: PLAN: Plan 1.? Chronic diastolic CHF/HTN/HLD/paroxysmal A-fib with wide-complex tachycardia ? He was scheduled for cardioversion but he spontaneously converted on amiodarone ? Blood pressure currently stable ? Pacemaker in place ? Continue with his home blood pressure medications ? Continue with his statin ?Flecainide was transitioned to amiodarone given his issues recently with tac hycardia, will continue amiodarone for 7 days at twice daily dosing and then transition to daily dosing ? Appreciate cardiology's assistance ? Start Eliquis 2.5 g twice daily on discharge 2. Acute renal failure with CKD 3B ? Acute renal failure likely secondary to hypotension from his wide-complex tachycardia ? His renal function is improving as his heart rate has improved. ? He did develop metabolic acidosis which has led to hyperkalemia which has resolved. ? We will continue to hold his Lasix, appreciate nephrology's assistance 3.? DM2/acute infection of his left second digit ? Stable, will continue with his Lantus ? Sliding scale with Accu-Cheks ACHS ? We will make adjustments as necessary ? Wound culture with gram-negative staph and gram-positive lynette, appreciate podiatry's assistance status post amputation 12/11/2022 ? No signs of osteo, can likely transition to oral Augmentin for another 7 days after discharge, cultures are pending 4.? BPH ? Stable ? Continue with finasteride 5.? Anxiety/depression ? Stable ? Continue with Zoloft 6. GERD ? Stable ? Continue with famotidine DVT: Heparin drip Charges/Coding Visit Charges Inpatient E&M: 41811 Subs Hosp L2
[2022-12-12] MEDS: Insulin Lispro 100 UNIT/ML INSULN.PEN SC (11:09)
[2022-12-12 11:30] LABS: Bedside Glucose 170 mg/dL (74-106)
--- NOTE | 2022-12-12 11:45 | PN_ITS ---
Subjective Subjective Patient denies fever, chills, nausea, vomiting. Some diarrhea overnight. pain controlled. no other issues. Objective Data Objective Data Vital Signs: Vital Signs Temp Pulse Resp BP Pulse Ox O2 Del Method O2 Flow Rate 98.0 F 70 18 124/55 H 97 Room Air 8 12/12/22 10:12/12/22 10:12/12/22 10:12/12/22 10:12/12/22 10:12/12/22 10:12/11/22 13:22 Oxygen Flow Rate (L/min) 8 Oxygen Delivery Method Room Air Weight: 129.8 kg Body Mass Index (BMI) 38.7 Intake & Output: Intake and Output for Last 24 Hours 12/10/22 12/11/22 12/12/22 23:59 23:59 23:59 Intake Total 1270.35 / 1270.35 1306.85 / 1306.85 100 / 100 Output Total 1999 / 2149 1450 / 1450 Balance -729.65 / -879.65 -143.15 / -143.15 100 / 100 Lab / Micro Data Result Diagrams: 12/12/22 05:19 12/12/22 05:19 Labs: Laboratory Results - last 24 hr 12/11/22 10:43: POC Glucose 135 H 12/11/22 11:26: POC Glucose 108 H 12/11/22 15:18: POC Glucose 72 L 12/11/22 16:56: Random Vancomycin 18.0 H 12/11/22 22:01: POC Glucose 136 H 12/12/22 05:19: WBC 8.1, RBC 3.32 L, Hgb 9.9 L, Hct 32.3 L, MCV 97.3 H, MCH 29.8, MCHC 30.7 L, RDW Std Deviation 49.9 H, RDW Coeff of Flavio 14.3, Plt Count 206, MPV 10.1, Immature Gran % (Auto) 0.900, Neut % (Auto) 70.0, Lymph % (Auto) 13.9 L, [place] % (Auto) 10.8 H, Eos % (Auto) 3.8, Baso % (Auto) 0.6, Absolute Neuts (auto) 5.7, Absolute Lymphs (auto) 1.13, Nucleated RBC % 0 12/12/22 05:19: Sodium 142, Potassium 4.4, Chloride 117 H, Carbon Dioxide 21.0, Anion Gap 4 L, BUN 59 H, Creatinine 2.13 H, Estim Creat Clear Calc 28.84, Est GFR (MDRD) Af Amer 38 L, Est GFR (MDRD) Non-Af 32 L, BUN/Creatinine Ratio 27.7 H , Glucose 110 H, Calcium 8.6 12/12/22 06:33: POC Glucose 113 H 12/12/22 11:07: POC Glucose 170 H Micro: Microbiology 12/11/22 Unknown Bone - 2nd Toe Wound Culture - Preliminary No growth-Final to follow 12/07/22 21:30 Wound - Toe Gram Stain - Final 12/07/22 21:30 Wound - Toe Wound Culture - Final Coag Negative Staph Gram positive lynette Radiography Diagnostic Testing: Radiology Impression Foot X-Ray 12/11/22 13:35 IMPRESSION: 1. Distal second digit amputation showing adequate soft tissue overlying the amputation site. Diffuse demineralization and degenerative changes as above with noted hardware. Electronically Signed: Lalo Hennessy DO at 17:27 EDT , Physical Exam Narrative Neurovascular status unchanged intact incision to left 2nd digit, no infection or breakdown. Const alert and oriented x3 Assessment & Plan Assessment/Plan (1) Non-pressure chronic ulcer of other part of left foot with necrosis of bone: PLAN: Exam performed intra operative cultures pending patient stable for d/c with regards to feet will await ID recommendation - PO abx likely sufficient re-dressed site today. This can be left intact until follow up next week patient can weight bearing in surgical shoe assisted by walker
--- NOTE | 2022-12-12 12:44 | CHAPLAIN ---
Type of Pastoral Visit ___ Initial Visit _x__ Follow-up Visit ___ On-call Visit ___ General Patient Visit ___ Spiritual Assessment ___ Family Conference ___ Bereavement ___ Rapid Response ___ Code Blue ___ Other (describe below) Pastoral Care Referral From _x__ Patient ___ Family ___ Nurse ___ Physician ___ Commercial Construction Estimator ___ Welding Teacher ___ Other (describe below) Sacrament/Intervention _x__ Active listening ___ Anointing ___ Restoration ___ Bereavement ___ Communion ___ Ariadna exploration ___ _x__ Life review _x__ Prayer ___ Reconciliation ___ Sacrament of Sick ___ Supportive presence ___ Wedding ___ Other (describe below) Pastoral Comments
[2022-12-12] MEDS: Enoxaparin 40 MG/0.4 ML Syringe SC (13:06)
--- NOTE | 2022-12-12 13:41 | PCM.PN.REN ---
Subjective Subjective Sitting in chair. No complaints. No overnight events Objective Data Objective Data Vital Signs: Vital Signs Temp Pulse Resp BP Pulse Ox O2 Del Method O2 Flow Rate 98.0 F 70 18 124/55 H 97 Room Air 8 12/12/22 10:25 12/12/22 10:25 12/12/22 10:25 12/12/22 10:25 12/12/22 10:25 12/12/22 13:40 12/11/22 13:22 Oxygen Flow Rate (L/min) 8 Oxygen Delivery Method Room Air Weight: 129.8 kg Body Mass Index (BMI) 38.7 Intake & Output: Intake and Output for Last 24 Hours 12/10/22 12/11/22 12/12/22 23:59 23:59 23:59 Intake Total 1270.35 / 1270.35 1306.85 / 1306.85 650 / 650 Output Total 1999 1450 / 1450 Balance -729.65 / -879.65 -143.15 / -143.15 650 / 650 Lab / Micro Data Result Diagrams: 12/12/22 05:19 12/12/22 05:19 Labs: Laboratory Results - last 24 hr 12/11/22 10:43: POC Glucose 135 H 12/11/22 15:18: POC Glucose 72 L 12/11/22 16:56: Random Vancomycin 18.0 H 12/11/22 22:01: POC Glucose 136 H 12/12/22 05:19: WBC 8.1, RBC 3.32 L, Hgb 9.9 L, Hct 32.3 L, MCV 97.3 H, MCH 29.8, MCHC 30.7 L, RDW Std Deviation 49.9 H, RDW Coeff of Flavio 14.3, Plt Count 206, MPV 10.1, Immature Gran % (Auto) 0.900, Neut % (Auto) 70.0, Lymph % (Auto) 13.9 L, [place] % (Auto) 10.8 H, Eos % (Auto) 3.8, Baso % (Auto) 0.6, Absolute Neuts (auto) 5.7, Absolute Lymphs (auto) 1.13, Nucleated RBC % 0 12/12/22 05:19: Sodium 142, Potassium 4.4, Chloride 117 H, Carbon Dioxide 21.0, Anion Gap 4 L, BUN 59 H, Creatinine 2.13 H, Estim Creat Clear Calc 28.84, Est GFR (MDRD) Af Amer 38 L, Est GFR (MDRD) Non-Af 32 L, BUN/Creatinine Ratio 27.7 H, Glucose 110 H, Calcium 8.6 12/12/22 06:33: POC Glucose 113 H 12/12/22 11:07: POC Glucose 170 H Micro: Microbiology 12/11/22 Unknown Bone - 2nd Toe Wound Culture - Preliminary No growth-Final to follow 12/07/22 21:30 Wound - Toe Gram Stain - Final 12/07/22 21:30 Wound - Toe Wound Culture - Final Coag Negative Staph Gram positive lynette Radiography Diagnostic Testing: Radiology Impression Foot X-Ray 12/11/22 13:35 IMPRESSION: 1. Distal second digit amputation showing adequate soft tissue overlying the amputation site. Diffuse demineralization and degenerative changes as above with noted hardware. Electronically Signed: Lalo Hennessy, DO at 17:27 EDT , Physical Exam Narrative Alert, oriented x3, no overnight events s1s2, rate controlled Lung sounds clear anteriorly and posteriorly. No rales, rhonchi or wheezing noted abdomen soft, nontender Trace lower extremity edema LLE wound Assessment & Plan Assessment/Plan (1) HORACE (acute kidney injury): PLAN: - HORACE; serum creatinine peaked 4.55 mg/dL on 12/09. Overall renal function is improving. Today creatinine 2.13 mg/dL. Patient is nonoliguric and appears to be near euvolemic - CKD 3B; Baseline creatinine around 1.6-1.8. - Admitted to the ICU due to atrial fibrillation. Patient was scheduled for cardioversion but converted spontaneously - Hyperkalemia, resolved. Mostly mediated by acidosis. - Atrial fibrillation. Spontaneously cardioverted. Blood pressures were low but have improved - Acute osteomyelitis of left second digit underwent left partial second toe amputation 12/11. - Disposition; discharge planning in progress. Will arrange for hospital follow-up.
[2022-12-12 16:35] LABS: Bedside Glucose 142 mg/dL (74-106)
--- NOTE | 2022-12-12 17:12 | NURSING ---
This RN taking over care at this time
[2022-12-12] MEDS: Pramipexole Di-HCl 1 MG Tablet 2 MG PO (22:05)
[2022-12-12] MEDS: Atorvastatin Calcium 10 MG Tablet PO (22:05)
[2022-12-12 23:10] LABS: Bedside Glucose 140 mg/dL (74-106)
[2022-12-13 03:39] VITALS: BP 138/54; PULSE 70; RESP 20; TEMP 36.7; O2SAT 95
[2022-12-13 06:00] VITALS: BMI 38.8
[2022-12-13 06:32] LABS: Anion Gap 2 (5-15); BUN 48 mg/dL (7-18); BUN/Creat Ratio 25.7 RATIO (10-20); Calcium,Total 8.6 mg/dL (8.5-10.1); Chloride 118 mmol/L (98-107); Creatinine, Serum 1.87 mg/dL (0.70-1.30); EST Glomerular Filtration Rate 37 mL/min (>60); Est Glom Filt Rate - Afr Amer 45 mL/min (>60); Estimated Creatinine Clearance 32.85 ml/min; Glucose 123 mg/dL (74-106); Potassium 4.5 mmol/L (3.5-5.1); Sodium Level 142 mmol/L (136-145); Vancomycin, Random Level 12.7 ug/mL (0.0-15.0)
[2022-12-13 07:11] LABS: Bedside Glucose 111 mg/dL (74-106)
[2022-12-13 08:00] VITALS: O2SAT 97
[2022-12-13 08:48] VITALS: O2SAT 97
--- NOTE | 2022-12-13 08:56 | PN.RENAL_ITS ---
Subjective Subjective Sitting in chair. No complaints. No overnight events Objective Data Objective Data Vital Signs: Vital Signs Temp Pulse Resp BP Pulse Ox O2 Del Method O2 Flow Rate 98.1 F 70 20 H 138/54 H 95 Room Air 8 12/13/22 03:39 12/13/22 03:39 12/13/22 03:39 12/13/22 03:39 12/13/22 03:39 12/13/22 03:53 12/11/22 13:22 Oxygen Flow Rate (L/min) 8 Oxygen Delivery Method Room Air Weight: 130.1 kg Body Mass Index (BMI) 38.8 Intake & Output: Intake and Output for Last 24 Hours 12/11/22 12/12/22 12/13/22 23:59 23:59 23:59 Intake Total 1306.85 / 1306.85 1200 / 1550 650 / 650 Output Total 1450 / 1450 Balance -143.15 / -143.15 1200 / 1550 650 / 650 Lab / Micro Data Result Diagrams: 12/12/22 05:19 12/13/22 05:50 Labs: Laboratory Results - last 24 hr 12/12/22 11:07: POC Glucose 170 H 12/12/22 15:59: POC Glucose 142 H 12/12/22 22:03: POC Glucose 140 H 12/13/22 05:50: Random Vancomycin 12.7 12/13/22 05:50: Sodium 142, Potassium 4.5, Chloride 118 H, Carbon Dioxide 22.0, Anion Gap 2 L, BUN 48 H, Creatinine 1.87 H, Estim Creat Clear Calc 32.85, Est GFR (MDRD) Af Amer 45 L, Est GFR (MDRD) Non-Af 37 L, BUN/Creatinine Ratio 25.7 H , Glucose 123 H, Calcium 8.6 12/13/22 06:21: POC Glucose 111 H Micro: Microbiology 12/11/22 Unknown Bone - 2nd Toe Gram Stain - Final 12/11/22 Unknown Bone - 2nd Toe Wound Culture - Preliminary No growth-Final to follow 12/07/22 21:30 Wound - Toe Gram Stain - Final 12/07/22 21:30 Wound - Toe Wound Culture - Final Coag Negative Staph Gram positive lynette Physical Exam Narrative Alert, oriented x3, no overnight events s1s2, rate controlled Lung sounds clear anteriorly and posteriorly. No rales, rhonchi or wheezing noted abdomen soft, nontender Trace lower extremity edema LLE wound Assessment & Plan Assessment/Plan (1) HORACE (acute kidney injury): PLAN: - HORACE; serum creatinine 1.5 mg/dL on admission (11/30), peaked 4.55 mg/dL on 12/09. Overall renal function is improving. Today creatinine 1.87 mg/dL. Patient is nonoliguric and appears to be near euvolemic - CKD 3B; Baseline creatinine around 1.6-1.8. - Admitted to the ICU due to atrial fibrillation. Patient was scheduled for cardioversion but converted spontaneously - Hyperkalemia, resolved. Mostly mediated by acidosis. - Atrial fibrillation. Spontaneously cardioverted. Blood pressures were low but have improved - ulcer left second digit underwent left partial second toe amputation 12/11. On IV antibiotics per ID vancomycin/Zosyn, to be discharged on Augmentin. - Disposition; discharge planning in progress. Okay for discharge per nephrology as renal function improved and near baseline now. Will arrange for hospital follow-up.
[2022-12-13 09:04] VITALS: PULSE 75
[2022-12-13] MEDS: Metoprolol(XL)Succ 25 MG Tablet PO (09:04)
[2022-12-13 09:05] VITALS: PULSE 75
[2022-12-13] MEDS: Finasteride 5 MG Tablet PO (09:05)
[2022-12-13] MEDS: Loratadine 10 MG Tablet PO (09:05)
[2022-12-13] MEDS: Juven (unflavored) Packet 1 PACKET PO (09:05)
[2022-12-13] MEDS: Sertraline 50 MG Tablet 37.5 MG PO (09:05)
[2022-12-13] MEDS: hydrALAZINE 25 MG Tablet PO (09:05)
[2022-12-13] MEDS: Famotidine 20 MG Tablet PO (09:05)
[2022-12-13] MEDS: Amiodarone 200 MG Tablet PO (09:05)
[2022-12-13] MEDS: Vancomycin IV 1,000 MG/200 ML BAG 200 MG IV (09:06)
[2022-12-13] MEDS: Insulin Glargine-YFGN 100 UNIT/ML Pen 30 UNIT SC (09:06)
[2022-12-13] MEDS: PROGESTERONE, MICRONIZED 100 MG CAPSULE PO (09:06)
[2022-12-13] MEDS: Enoxaparin 40 MG/0.4 ML Syringe SC (09:06)
--- NOTE | 2022-12-13 09:10 | PCM.RX.CS ---
Consult Pharmacy has been consulted to manage selected antiobiotic: Vancomycin Type of Consult: Follow-up Prior Doses of Antibiotics Received/Current Regimen: the most recent vanc dose was 1000mg IV x1 on 12/11/22 at 20:08 Labs: Sodium 142 mmol/L (136-145) 12/13/22 05:50 Potassium 4.5 mmol/L (3.5-5.1) 12/13/22 05:50 Chloride 118 mmol/L (98-107) H 12/13/22 05:50 Carbon Dioxide 22.0 mmol/L (21.0-32.0) 12/13/22 05:50 Anion Gap 2 (5-15) L 12/13/22 05:50 BUN 48 mg/dL (7-18) H 12/13/22 05:50 Creatinine 1.87 mg/dL (0.70-1.30) H 12/13/22 05:50 Est GFR (MDRD) Af Amer 45 mL/min (>60) L 12/13/22 05:50 Est GFR (MDRD) Non-Af 37 mL/min (>60) L 12/13/22 05:50 BUN/Creatinine Ratio 25.7 RATIO (10-20) H 12/13/22 05:50 Glucose 123 mg/dL (74-106) H 12/13/22 05:50 Vancomycin Trough 23.2 ug/mL (5.0-15.0) H 12/11/22 00:00 Random Vancomycin 12.7 ug/mL (0.0-15.0) 12/13/22 05:50 Microbiology: Microbiology 12/11/22 Unknown Bone - 2nd Toe Gram Stain - Final 12/11/22 Unknown Bone - 2nd Toe Wound Culture - Preliminary No growth-Final to follow 12/07/22 21:30 Wound - Toe Gram Stain - Final 12/07/22 21:30 Wound - Toe Wound Culture - Final Coag Negative Staph Gram positive lynette Weight used for dosin.1 kg Estimated Creatinine Clearance: 41.7ml/min Goal Trough: 15-20 mcg/mL Pharmacy Plan for Drug Dosing: The vanc random level drawn at 05:50 today (approx 34 hrs after the most recent dose) was 12.7. Will give another 1000mg IV x1 today. Although the patient's SCr has gone down to 1.87 today, hesitant to put the patient on a scheduled dose yet due to recent unstable renal function. Would like to see the result of a 24-hr random vanc level first so will order that for tomorrow 24 hours after today's dose. The patient's CrCl of 41.7ml/min was calculated using an adjusted body weight. Pharmacy Service will continue to monitor and adjust dosing as required. Follow-Up Labs: Trough Vancomycin - random Labs to be done on [date and time ordered]: 12/14/22 09:00
[2022-12-13 09:21] VITALS: BP 136/61; PULSE 70; RESP 16; TEMP 36.6; O2SAT 97
--- NOTE | 2022-12-13 09:55 | PCM.DC ---
Discharge Instructions Diet Discharge Diet: Low fat / Low cholesterol and Carb Control Diet Activity Discharge Activity: Return to Normal Activity Weight Bearing Status: Weight bearing as tolerated (While wearing surgical shoe and assisted by walker) Dressing / Incision Call your doctor if your incision/area has: Continuous Slow Oozing, Increased Pain/ Swelling, Increased Redness and Foul Smelling Discharge Call your doctor if you observe: Fever of 101 or Higher, Shortness of breath, Dizziness, Fainting spells, Swelling in the ankles, Chest pain and Increased palpitations (irregular heartbeat) Follow Up Care Test Results: Test results from this visit will be discussed in further detail at your follow-up appointment, if applicable. Discharge Plan Admission Admit Date/Time: 12/07/22 21:01 Attending Provider: Franco Rausch Primary Care Provider: Tosha Shrestha Consulting Providers: Lianna Garcai ; Clarice Fontenot ; Claudine Field ; Erich Garcia ; Anay Hernandez ; Helio Melendrez Discharge Orders/Prescriptions Prescriptions: New amiodarone 200 mg Tablet 200 mg PO BID 30 Days Qty: 60 0RF Rx Instructions: Take 1 tablet twice daily for 7 more days then take 1 tablet daily amoxicillin-pot clavulanate 875-125 mg tablet 1 tab PO Q12H Qty: 10 0RF Eliquis 2.5 mg tablet 2.5 mg PO BID Qty: 60 0RF Continued meclizine 25 mg tablet 25 mg PO TID PRN (Reason: dizziness) Qty: 90 0RF famotidine 40 mg tablet 20 mg PO DAILY progesterone micronized 100 mg capsule 100 mg PO QAM insulin glargine 100 unit/mL (3 mL) insulin pen 30 unit subcut QAM nitroglycerin 0.4 mg Tablet, Sublingual 0.4 mg sublingual Q5M PRN (Reason: Cardiac/Chest Pain) 30 Days Qty: 30 0RF sennosides-docusate sodium [Stool Softener-Stimulant Laxat] 8.6-50 mg Tablet 2 tab PO BID Qty: 0 0RF acetaminophen 500 mg Tablet 1,000 mg PO Q8H PRN PRN (Reason: Pain) Qty: 30 0RF atorvastatin 10 mg tablet 10 mg PO QHS loratadine 10 mg tablet 10 mg PO DAILY Label Comments: take 1 tablet by mouth once daily insulin glargine-yfgn [Semglee(insulin glarg-yfgn)Pen] 100 unit/mL (3 mL) insulin pen 30 unit SUBCUT DAILY Label Comments: inject 30 units subcutaneously every morning sertraline 25 mg tablet 37.5 mg PO DAILY hydralazine 50 mg tablet 25 mg PO BID metoprolol succinate 25 mg tablet extended release 24 hr 12.5 mg PO DAILY finasteride 5 mg tablet 5 mg PO DAILY Qty: 90 3RF ergocalciferol (vitamin D2) 1,250 mcg (50,000 unit) capsule 50,000 unit PO QMONTH Qty: 14 1RF ferrous sulfate 325 mg (65 mg iron) tablet 325 mg PO Qty: 90 1RF Rx Instructions: only pramipexole [Mirapex] 1 mg tablet 2 mg PO QHS Qty: 180 3RF dulaglutide 4.5 mg/0.5 mL pen injector 4.5 mg SC .COMPLEX 90 Days Qty: 2 2RF Rx Instructions: 4.5 mg subcut every friday Held furosemide 20 mg tablet 20 mg PO DAILY Hold Instructions: Resume on 12/16/22. Label Comments: take 1 tablet by mouth once daily Rx Instructions: Take an additional 40 mg dose at 5 PM for increased leg swelling or weight gain 5 pounds in 1 week. Discontinued doxycycline hyclate 100 mg tablet 100 mg PO BID flecainide 100 mg tablet 100 mg PO Q12H Qty: 180 2RF Hold Instructions: bradycardia 07/09 Referrals / Follow Up: Edward Carr DPM [Med Staff - Active Staff] - Within 1 Month Caden Dale NP, SOLAR SITE ASSESSMENT SPECIALIST-C [Med Staff - Adv Practice Prof] - 12/27/22 9:00 am Disposition Disposition (needs filled in before D/C Order can be placed): Home Health Service
[2022-12-13] MEDS: Insulin Lispro 100 UNIT/ML INSULN.PEN SC (11:00)
--- NOTE | 2022-12-13 11:22 | PHA.DC.MC ---
Addendum entered and electronically signed by Janice Dale 12/13/22 11:24: Per RN CM, no co-pay on Eliquis. This [facility] told patient there is no co-pay. Original Note: Pharmacy Service has performed discharge medication reconciliation and counseling for this patient. 1. AMIODARONE 200MG PO BID X 7 DAYS, THEN DAILY THEREAFTER 2. APIXABAN 2.5MG PO BID 3. AUGMENTIN 875/125MG 1T PO BID X 5 DAYS The patient's discharge medication list was reviewed for discrepancies and discrepancies were resolved. Home Medications finasteride 5 mg tablet 5 mg PO DAILY PROSTATE #90 tabs 11/03/18 progesterone micronized 100 mg capsule 100 mg PO QAM HORMONE 10/06/22 meclizine 25 mg tablet 25 mg PO TID PRN dizziness #90 tabs 10/24/22 ergocalciferol (vitamin D2) 1,250 mcg (50,000 unit) capsule 50,000 unit PO QMONTH SUPPLEMENT #14 caps 11/29/22 ferrous sulfate 325 mg (65 mg iron) tablet 325 mg PO TH supplement #90 tabs 11/29/22 pramipexole 1 mg tablet (Mirapex) 2 mg PO QHS RLS #180 tabs 11/29/22 acetaminophen 500 mg tablet 1,000 mg PO Q8H PRN PRN Pain #30 tabs 12/03/22 atorvastatin 10 mg tablet 10 mg PO QHS cholesterol 12/03/22 nitroglycerin 0.4 mg sublingual tablet 0.4 mg sublingual Q5M PRN Cardiac/Chest Pain 30 days #30 tabs 12/03/22 sennosides 8.6 mg-docusate sodium 50 mg tablet (Stool Softener-Stimulant Laxative) 2 tab PO BID #0 tabs 12/03/22 famotidine 40 mg tablet 20 mg PO DAILY 12/06/22 furosemide 20 mg tablet 20 mg PO DAILY diuretic 12/07/22 hydralazine 50 mg tablet 25 mg PO BID 12/07/22 insulin glargine-yfgn 100 unit/mL (3 mL) subcutaneous pen (Semglee (insulin glargine-yfgn) Pen) 30 unit subcut DAILY 12/07/22 loratadine 10 mg tablet 10 mg PO DAILY 12/07/22 metoprolol succinate 25 mg tablet,extended release 24 hr 12.5 mg PO DAILY BP 12/07/22 sertraline 25 mg tablet 37.5 mg PO DAILY DEPRESSION 12/07/22 dulaglutide 4.5 mg/0.5 mL subcutaneous pen injector 4.5 mg (0.5 mL) subcut .COMPLEX DM 3 months #2 mL 12/09/22 amiodarone 200 mg tablet 200 mg PO BID 30 days #60 tabs 12/13/22 amoxicillin 875 mg-potassium clavulanate 125 mg tablet 1 tab PO Q12H #10 tabs 12/13/22 apixaban 2.5 mg tablet (Eliquis) 2.5 mg PO BID #60 tabs 12/13/22 The patient was counseled on the following discharge medications and changes in medications for homegoing were reviewed. The Reason for Use, instructions for use, and potential side effects were reviewed for all new medications. The patient's questions regarding all of their medications were answered. The patient was able to verbally demonstrate an understanding of their discharge medications.
[2022-12-13 11:30] LABS: Bedside Glucose 160 mg/dL (74-106)
--- NOTE | 2022-12-13 11:48 | CASEMGMT ---
TIMOTHY LOPEZ updated that patient will be discharging on . TIMOTHY LOPEZ called [facility] Rx and patient had $0 copay. TIMOTHY LOPEZ called and updated [facility] HHC regarding discharge, planned start of care is for Friday. TIMOTHY LOPEZ in to patient's room to update regarding [facility] Patient and voiced understanding. Patient and had no further questions or concerns at this time.
--- NOTE | 2022-12-13 12:01 | DS.PCM_ITS ---
Providers Date of Admission: 12/07/22 Primary Care Physician: Dr. Tosha Shrestha MD Consultations 12/07/22 21:53 Consult: Cardiology Routine Consulting Provider: Erich Garcia Reason for Consult: HORACE 2/2 diuretics w/ recent CHF Exac, PA Flutter w/ RVR. EMERGENT Consult: No MD Notified: Yes Date Notified: 12/07/22 Time Notified: 21:04 Method of Notification: Text Consult: Onc/Wound/[employer] vice [employer] Routine Comment: Reason for Consult:: Diabetic toe infection Consult: Podiatry Routine Consulting Provider: Helio Melendrez Reason for Consult: L foot distal toe infection EMERGENT Consult: No MD Notified: Yes Date Notified: 12/07/22 Time Notified: 21:39 Method of Notification: Text 12/08/22 13:52 Consult: Nephrology Routine Consulting Provider: Anay Hernandez Reason for Consult: HORACE on CKD III EMERGENT Consult: No MD Notified: Yes Date Notified: 12/08/22 Time Notified: 13:52 Method of Notification: Text Reason For Visit: SUSPECTED PA FLUTTER W/ RVR, HORACE, TOE INFECTION Diagnosis Discharge Diagnosis (1) HORACE (acute kidney injury): Status: Acute Code(s): N17.9 - Acute kidney failure, unspecified Medications at Discharge Home Medications finasteride 5 mg tablet 5 mg PO DAILY PROSTATE #90 tabs 11/03/18 progesterone micronized 100 mg capsule 100 mg PO QAM HORMONE 10/06/22 meclizine 25 mg tablet 25 mg PO TID PRN dizziness #90 tabs 10/24/22 ergocalciferol (vitamin D2) 1,250 mcg (50,000 unit) capsule 50,000 unit PO QMONTH SUPPLEMENT #14 caps 11/29/22 ferrous sulfate 325 mg (65 mg iron) tablet 325 mg PO TH supplement #90 tabs 11/29/22 pramipexole 1 mg tablet (Mirapex) 2 mg PO QHS RLS #180 tabs 11/29/22 acetaminophen 500 mg tablet 1,000 mg PO Q8H PRN PRN Pain #30 tabs 12/03/22 atorvastatin 10 mg tablet 10 mg PO QHS cholesterol 12/03/22 nitroglycerin 0.4 mg sublingual tablet 0.4 mg sublingual Q5M PRN Cardiac/Chest Pain 30 days #30 tabs 12/03/22 sennosides 8.6 mg-docusate sodium 50 mg tablet (Stool Softener-Stimulant Laxat mily) 2 tab PO BID #0 tabs 12/03/22 famotidine 40 mg tablet 20 mg PO DAILY 12/06/22 furosemide 20 mg tablet 20 mg PO DAILY diuretic 12/07/22 hydralazine 50 mg tablet 25 mg PO BID 12/07/22 insulin glargine-yfgn 100 unit/mL (3 mL) subcutaneous pen (Semglee (insulin glargine-yfgn) Pen) 30 unit subcut DAILY 12/07/22 loratadine 10 mg tablet 10 mg PO DAILY 12/07/22 metoprolol succinate 25 mg tablet,extended release 24 hr 12.5 mg PO DAILY BP 12/07/22 sertraline 25 mg tablet 37.5 mg PO DAILY DEPRESSION 12/07/22 dulaglutide 4.5 mg/0.5 mL subcutaneous pen injector 4.5 mg (0.5 mL) subcut .COMPLEX DM 3 months #2 mL 12/09/22 amiodarone 200 mg tablet 200 mg PO BID 30 days #60 tabs 12/13/22 amoxicillin 875 mg-potassium clavulanate 125 mg tablet 1 tab PO Q12H #10 tabs 12/13/22 apixaban 2.5 mg tablet (Eliquis) 2.5 mg PO BID #60 tabs 12/13/22 Hospital Course Operations None and - (Distal toe amputation on left foot) Procedures None Summary of Care Provided Minutes Spent on Discharge: 38 Hospital Course: Per HPI: The patient is an 82 y/o M w/ PMHx: Obesity, Hx TIA, Hx Sick Sinus Syndrome/tachybradycardia syndrome s/p pacemaker status, Anxiety and Depression, RLS, PAF/Flutter s/p RFA, Hx VTE, Chronic anemia/Fe deficiency anemia, GERD w/ Hx PUD, Diabetes mellitus type II with chronic neuropathy, BPH, CKD stage IIIb, MACHELLE on BIPAP q HS, Diastolic CHF, recently discharged 12/03/22 following evaluation and treatment for acute on chronic diastolic heart failure as well as atrial tachycardia/dysrhythmia status post pacemaker insertion 10/14/2022 with cardiology evaluation at that time with decrease of patient's beta-simona therapy and hold if heart rate less than 60 as patient had persistently been 60- 70, 12/06/2022 of note callus removal by his bias binding cutter from the second distal toe on the left foot with initiation of doxycycline to be cautious with first dose the evening prior who now represents to the [facility] ED on 12/07/22 with history of dyspnea starting the evening prior ~ 1 hour following incidentally his first doxycycline dose with ongoing worsening dyspnea, worse with ambulation and layin g flat prompting ED presentation although he has been seen several times recently for similar complaints w/ ED initial EKG with paced but suspected underlying atrial flutter rate 120s. Work-up in the ED included T97, heart rate 113, BP 106/78, respiratory rate 18, 96% on room air, CBC with WBC 9.1, hemoglobin 11.1, MCV 95.8, platelet 250 without marked shift, BMP with sodium 132, chloride 108, carbon oxide 17, BUN/creatinine 74/3.18, glucose 247, BNP 1457.9, troponin initial 48 with most recent repeat 60, chest x-ray with no acute cardiopulmonary findings, EKG with paced rhythm but suspected underlying likely atrial flutter with rate in the 120s with no acute evidence of ischemia.? In the ED patient ministered metoprolol 5 mg IV x1.? In the ED patient's left foot dressing removed and the distal tip does demonstrate significant undermining with some beefy red tissue noted beneath however able to express purulent material and mild odor therefore MRSA screen and wound culture obtained and discussed with ED staff with planned left foot plain films to be obtained on route to PCU admission. Hospital Course: 1.? Chronic diastolic CHF/HTN/HLD/paroxysmal A-fib with wide-complex tachycardia ? He was scheduled for cardioversion but he spontaneously converted on ami odarone ? Blood pressure currently stable ? Pacemaker in place ? Continue with his home blood pressure medications ? Continue with his statin ?Flecainide was transitioned to amiodarone given his issues recently with tachycardia, will continue amiodarone for 7 days at twice daily dosing and then transition to daily dosing ? Appreciate cardiology's assistance ? Start Eliquis 2.5 g twice daily on discharge ? I discussed with him the plan for discharge today he expressed understanding of the risk benefits going home and will go home today. He feels much better denies any chest pain or shortness of breath. I do recommend that he follow-up with his PCP in 3 to 5 days for outpatient management. I also recommend that he follow-up with podiatry for his postoperative follow-up. 2. Acute renal failure with CKD 3B ? Acute renal failure likely secondary to hypotension from his wide-complex tachycardia ? His renal function is improving as his heart rate has improved. ? He did develop metabolic acidosis which has led to hyperkalemia which has resolved. ?His creatinine has returned to baseline on the day of discharge to 1.87, will hold Lasix for another several days and I do recommend that he follow-up with his PCP to obtain outpatient follow-up for his renal function 3.? DM2/acute infection of his left second digit ? Stable, will continue with his Lantus ? Sliding scale with Accu-Cheks ACHS ? We will make adjustments as necessary ? Wound culture with gram-negative staph and gram-positive lynette, appreciate podiatry's assistance status post amputation 12/11/2022 ? No signs of osteo, will transition to oral Augmentin for another 5 days after discharge 4.? BPH ? Stable ? Continue with finasteride 5.? Anxiety/depression ? Stable ? Continue with Zoloft 6. GERD ? Stable ? Continue with famotidine Physical Exam Narrative General: Alert, Oriented x3, Cooperative, No apparent distress HEENT: Atraumatic, PERRLA, EOMI, Normocephalic Oral: Moist Mucosa Neck: Supple, No JVD Lungs: Diminished, Normal air movement, No rhonchi, No wheeze, No rales Cardiovascular: Regular rate, Regular Rhythm, Normal S1, Normal S2, No murmurs Abdomen: Soft, Non Tender, Non-Distended, No Hepato-splenomegaly Extremities: No edema, Capillary Refill Less than 3 Seconds Skin: Left toe status post amputation dressing intact Musculoskeletal: No Tenderness to Palpation of Joints or Extremities Neurological: Cranial nerves II-XII grossly intact, Motor Exam 5/5 strength throughout, Sensory exam intact to light touch and pain Psych/Mental Status: Normal Affect, Appropriate Weight / BMI Weight Weight: 286 lb 13.142 oz Body Mass Index (BMI) 38.8 ABG / Lab / Microbiology Data Result Diagrams: 12/12/22 05:19 12/13/22 05:50 Laboratory: Laboratory Results - last 24 hr 12/12/22 15:59: POC Glucose 142 H 04/27/23 22:03: POC Glucose 140 H 12/13/22 05:50: Random Vancomycin 12.7 12/13/22 05:50: Sodium 142, Potassium 4.5, Chloride 118 H, Carbon Dioxide 22.0, Anion Gap 2 L, BUN 48 H, Creatinine 1.87 H, Estim Creat Clear Calc 32.85, Est GFR (MDRD) Af Amer 45 L, Est GFR (MDRD) Non-Af 37 L, BUN/Creatinine Ratio 25.7 H , Glucose 123 H, Calcium 8.6 12/13/22 06:21: POC Glucose 111 H 12/13/22 10:59: POC Glucose 160 H Microbiology: Microbiology 12/11/22 Unknown Bone - 2nd Toe Gram Stain - Final 12/11/22 Unknown Bone - 2nd Toe Wound Culture - Preliminary No growth-Final to follow 12/11/22 Unknown Bone - 2nd Toe Anaerobic Culture - Preliminary No growth in 48 hours. 12/07/22 21:30 Wound - Toe Gram Stain - Final 12/07/22 21:30 Wound - Toe Wound Culture - Final Coag Negative Staph Gram positive lynette D/C Instructions Discharge Diet: Low fat / Low cholesterol and Carb Control Diet Weight Bearing Status: Weight bearing as tolerated (While wearing surgical shoe and assisted by walker) Call your doctor if your incision/area has: Continuous Slow Oozing, Increased Pain/ Swelling, Increased Redness and Foul Smelling Discharge Call your doctor if you observe: Fever of 101 or Higher, Shortness of breath, Dizziness, Fainting spells, Swelling in the ankles, Chest pain and Increased palpitations (irregular heartbeat) Meaningful Use Info Meaningful Use Diagnoses (Choose all that apply): None applicable Discharge Plan Admission Admit Date/Time: 12/07/22 21:01 Attending Provider: Franco Rausch Primary Care Provider: Tosha Shrestha Consulting Providers: Lianna Garcia ; Clarice Fontenot ; Claudine Field ; Erich Schreiber ; Anay Hernandez ; Helio Melendrez Discharge Orders/Prescriptions Prescriptions: New amiodarone 200 mg Tablet 200 mg PO BID 30 Days Qty: 60 0RF Rx Instructions: Take 1 tablet twice daily for 7 more days then take 1 tablet daily amoxicillin-pot clavulanate 875-125 mg tablet 1 tab PO Q12H Qty: 10 0RF Eliquis 2.5 mg tablet 2.5 mg PO BID Qty: 60 0RF Continued meclizine 25 mg tablet 25 mg PO TID PRN (Reason: dizziness) Qty: 90 0RF famotidine 40 mg tablet 20 mg PO DAILY progesterone micronized 100 mg capsule 100 mg PO QAM nitroglycerin 0.4 mg Tablet, Sublingual 0.4 mg sublingual Q5M PRN (Reason: Cardiac/Chest Pain) 30 Days Qty: 30 0RF sennosides-docusate sodium [Stool Softener-Stimulant Laxat] 8.6-50 mg Tablet 2 tab PO BID Qty: 0 0RF acetaminophen 500 mg Tablet 1,000 mg PO Q8H PRN PRN (Reason: Pain) Qty: 30 0RF atorvastatin 10 mg tablet 10 mg PO QHS loratadine 10 mg tablet 10 mg PO DAILY Label Comments: take 1 tablet by mouth once daily insulin glargine-yfgn [Semglee(insulin glarg-yfgn)Pen] 100 unit/mL (3 mL) insulin pen 30 unit SUBCUT DAILY Label Comments: inject 30 units subcutaneously every morning sertraline 25 mg tablet 37.5 mg PO DAILY hydralazine 50 mg tablet 25 mg PO BID metoprolol succinate 25 mg tablet extended release 24 hr 12.5 mg PO DAILY finasteride 5 mg tablet 5 mg PO DAILY Qty: 90 3RF ergocalciferol (vitamin D2) 1,250 mcg (50,000 unit) capsule 50,000 unit PO QMONTH Qty: 14 1RF ferrous sulfate 325 mg (65 mg iron) tablet 325 mg PO Qty: 90 1RF Rx Instructions: only pramipexole [Mirapex] 1 mg tablet 2 mg PO QHS Qty: 180 3RF dulaglutide 4.5 mg/0.5 mL pen injector 4.5 mg SC .COMPLEX 90 Days Qty: 2 2RF Rx Instructions: 4.5 mg subcut every friday Held furosemide 20 mg tablet 20 mg PO DAILY Hold Instructions: Resume on 12/16/22. Label Comments: take 1 tablet by mouth once daily Rx Instructions: Take an additional 40 mg dose at 5 PM for increased leg swelling or weight gain 5 pounds in 1 week. Discontinued insulin glargine 100 unit/mL (3 mL) insulin pen 30 unit subcut QAM doxycycline hyclate 100 mg tablet 100 mg PO BID flecainide 100 mg tablet 100 mg PO Q12H Qty: 180 2RF Hold Instructions: bradycardia 07/09 Referrals / Follow Up: Edward Carr DPM [Med Staff - Active Staff] - 01/14/23 1:15 pm Caden Dale NP, DIRECTOR OF ACCREDITATION-C [Med Staff - Adv Practice Prof] - 12/27/22 9:00 am Disposition Disposition (needs filled in before D/C Order can be placed): Home Health Service Charges/Coding Visit Charges Inpatient E&M: 27035 Disch Hosp >30min
== END 2022-12-13 12:35 | disposition home health service (06) | DRG 255 ==
LOC: ED 17:57 → PCU 21:20 → ICU 12-09 05:45 → PCU 12-11 14:00
PROVIDERS: Internal Medicine; Internal Medicine Critical Care Medicine; Internal Medicine Interventional Cardiology; Internal Medicine Nephrology; Physician Assistant; Podiatrist; Student in an Organized Health Care Education/Training Program; Admitting Provider Family Medicine; Emergency Provider Emergency Medicine; PCP Internal Medicine; Visit Provider Family Medicine
PROC: 0Y6S0Z3 Detachment at Left 2nd Toe, Low, Open Approach (ICD-10-PCS; principal; 2022-12-11 11:45)
DX: I48.92 Unspecified atrial flutter (principal); N17.0 Acute kidney failure with tubular necrosis; I13.0 Hypertensive heart and chronic kidney disease with heart failure and stage 1 through stage 4 chronic kidney disease, or unspecified chronic kidney disease; E87.1 Hypo-osmolality and hyponatremia; E87.20 Acidosis, unspecified; I50.32 Chronic diastolic (congestive) heart failure; D63.1 Anemia in chronic kidney disease; E11.621 Type 2 diabetes mellitus with foot ulcer; I48.0 Paroxysmal atrial fibrillation; I49.5 Sick sinus syndrome; J44.9 Chronic obstructive pulmonary disease, unspecified; Z79.4 Long term (current) use of insulin; E11.42 Type 2 diabetes mellitus with diabetic polyneuropathy; N18.32 Chronic kidney disease, stage 3b; E11.22 Type 2 diabetes mellitus with diabetic chronic kidney disease; E11.65 Type 2 diabetes mellitus with hyperglycemia; L97.524 Non-pressure chronic ulcer of other part of left foot with necrosis of bone; E11.628 Type 2 diabetes mellitus with other skin complications; I47.20 Ventricular tachycardia, unspecified; G25.81 Restless legs syndrome; D50.0 Iron deficiency anemia secondary to blood loss (chronic); G47.33 Obstructive sleep apnea (adult) (pediatric); I25.10 Atherosclerotic heart disease of native coronary artery without angina pectoris; E78.5 Hyperlipidemia, unspecified; E87.5 Hyperkalemia; E55.9 Vitamin D deficiency, unspecified; K21.9 Gastro-esophageal reflux disease without esophagitis; F41.9 Anxiety disorder, unspecified; M20.42 Other hammer toe(s) (acquired), left foot; F32.A Depression, unspecified; L03.032 Cellulitis of left toe; N40.0 Benign prostatic hyperplasia without lower urinary tract symptoms; B95.7 Other staphylococcus as the cause of diseases classified elsewhere; E66.9 Obesity, unspecified; Z68.38 Body mass index [BMI] 38.0-38.9, adult; Z95.0 Presence of cardiac pacemaker; Z79.82 Long term (current) use of aspirin; Z79.899 Other long term (current) drug therapy; Z86.73 Personal history of transient ischemic attack (TIA), and cerebral infarction without residual deficits; Z86.718 Personal history of other venous thrombosis and embolism
CPT/HCPCS: 36415; 36600; 71046; 73630; 80048; 80053; 80202; 82803; 82962; 83036; 83605; 83735; 83880; 84443; 84484; 85025; 85610; 85652; 85730; 86140; 87015; 87070; 87075; 87077; 87102; 87116; 87176; 87205; 87206; 87640; 93005; 93923; 94668; 94762; 97110; 97116; 97162; 97166; 97530; 97535; 99285; J7030; J7040; J7050; A4216

== ENCOUNTER → 2022-12-20 | Outpatient (CLI) | payer MEDICARE, BC, SELFPAY ==
--- NOTE | 2022-12-20 10:26 | VDLE_ITS ---
Reason For Study: BLE EDEMA RIGHT LEFT GSV is normal. GSV is normal. CFV is compressible, spontaneous, phasic, CFV is compressible, spontaneous, phasic, competent and demonstrates normal competent, and demonstrates normal augmentation. augmentation. FV is compressible, spontaneous, phasic, FV is compressible, spontaneous, phasic, competent and demonstrates normal competent and demonstrates normal augmentation. augmentation. POP V is compressible, spontaneous, phasic, POP V is compressible, spontaneous, phasic, competent and demonstrates normal competent and demonstrates normal augmentation. augmentation. T/P Trunk is compressible. T/P Trunk is compressible. PTV is compressible. PTV is compressible. RT PerV is compressible. LT PerV is compressible. Procedure This is a venous duplex using B-mode, color flow and spectral Doppler. Exam performed in department. The study was technically difficult. Due to BLE EDEMA/SWELLING. CALF VEINS APPEAR COMPRESSIBLE, DIFFICULT TO IMAGE. A preliminary report was called and/or faxed to DR. Carr @ [phone] @ 11:10am. VL/Venous Duplex US - Joselito Extrem Interpretation Summary Deep veins of the bilateral lower extremities are patent and compressible segme ntally. There is no evidence of bilateral lower extremity deep vein thrombosis. The bilateral great saphenous veins appear patent and compressible segmentally. Limited study below knee bilateral due to edema Ordering Physician: Edward Carr Referring Physician: Tosha Shrestha Performed By: Maribel Quezada, RDCS, RVT
== END | disposition home or self-care (01) ==
LOC: CVS 10:24
PROVIDERS: PCP Internal Medicine; Referring Provider Podiatrist; Visit Provider Podiatrist
DX: R22.43 Localized swelling, mass and lump, lower limb, bilateral (principal); M79.606 Pain in leg, unspecified
CPT/HCPCS: 93970

== ENCOUNTER 2022-12-23 09:52 | Observation (INO) | payer MEDICARE, BC, SELFPAY ==
[2022-12-23] VITALS (10 sets, daily range): BP systolic 157–176; BP diastolic 62–73; PULSE 70–71; RESP 16–23; TEMP 36.4–36.9; O2SAT 94–98; BMI 41.2; BMI 38.8
--- NOTE | 2022-12-23 10:23 | ED.RN ---
pt reports feels weak all over c/o leg pain. denies nausea or dizziness
--- NOTE | 2022-12-23 10:43 | EKG12_ITS ---
Test Reason : WEAKNESS Blood Pressure : / mmHG Vent. Rate : 070 BPM Atrial Rate : 070 BPM P-R Int : 342 ms QRS Dur : 158 ms QT Int : 500 ms P-R-T Axes : 100 -66 091 degrees QTc Int : 540 ms Sinus rhythm with 1st degree A-V block Left axis deviation Non-specific intra-ventricular conduction block Minimal voltage criteria for LVH, may be normal variant ( [place] product ) Lateral infarct , age undetermined Inferior infarct , age undetermined Abnormal ECG Confirmed by JORDIN DUNCAN, SYBIL ([id number]), video editor NITZA ROJAS ([id number]) on 12/24/2022 8:18:13 AM Referred By: Confirmed By:SYBIL BRENNER MD
--- NOTE | 2022-12-23 10:46 | EX.ED.DYSGE1 ---
HPI History of Present Illness Chief Complaint: Weakness Narrative Narrative: Lower extremity edema, he also has shortness of breath for 1 day. It is worse when he lays down. He does have a history of CHF. No fevers or chills she does not have a cough. He does not have upper respiratory symptoms. He has a history of pacemaker but not defibrillator. [facility] Medical History (HFpEF) heart failure with preserved ejection fraction (12/12/20) Acute on chronic diastolic HF (heart failure) Acute respiratory failure with hypoxia Anemia Anemia of chronic renal failure, stage 3 (moderate) Anxiety and depression Atherosclerotic heart disease of platinum coronary artery without angina pectoris Atrial flutter Atypical chest pain Back pain BMI 34.0-34.9,adult BPH (benign prostatic hyperplasia) BPPV (benign paroxysmal positional vertigo) Bradycardia Cardiac dysrhythmia Cardiology follow-up encounter CHF (congestive heart failure) CHF (congestive heart failure) De Quervain's tenosynovitis Debility Depression Dermatitis Diabetes mellitus Diabetic kidney disease Dizziness DM type 2 with diabetic peripheral neuropathy DVT (deep venous thrombosis) Dyslipidemia Dysphagia Essential (primary) hypertension Fall Flu vaccine need Fracture of great toe Gastric reflux Gout Gout flare Health care maintenance History of echocardiogram History of edema History of GI bleed History of peptic ulcer History of renal calculi History of ulceration HLD (hyperlipidemia) Injury of head and neck Iron deficiency anemia Iron deficiency anemia due to chronic blood loss Kidney hematoma (12/08/20) Left knee pain Left leg DVT Loss of equilibrium Low iron Malaise Near syncope Orthostatic hypotension MACHELLE (obstructive sleep apnea) Pain of left lower extremity Paroxysmal atrial fibrillation Paroxysmal atrial flutter Pneumonia Polypharmacy 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 Presence of cardiac pacemaker Prostate disease Psoriasis Recurrent syncope (06/19/22) Renal calculi RLS (restless legs syndrome) Sex disorder Sick sinus syndrome Suicidal ideation SVT (supraventricular tachycardia) TIA (transient ischemic attack) Type 2 diabetes mellitus with diabetic polyneuropathy Urolithiasis Venous insufficiency of both lower extremities Vertigo Walker as ambulation aid Wears glasses Home Medications finasteride 5 mg tablet 5 mg PO DAILY PROSTATE #90 tabs 11/03/18 [Rx Last Taken 11/30/22] progesterone micronized 100 mg capsule 100 mg PO QAM HORMONE 10/06/22 [History Last Taken 11/30/22] meclizine 25 mg tablet 25 mg PO TID PRN dizziness #90 tabs 10/24/22 [Rx Last Taken 11/29/22] ergocalciferol (vitamin D2) 1,250 mcg (50,000 unit) capsule 50,000 unit PO QMONTH SUPPLEMENT #14 caps 11/29/22 [Rx Last Taken 11/16/22] ferrous sulfate 325 mg (65 mg iron) tablet 325 mg PO TH supplement #90 tabs 11/29/22 [Rx Last Taken 11/28/22] pramipexole 1 mg tablet (Mirapex) 2 mg PO QHS RLS #180 tabs 11/29/22 [Rx Last Taken 11/29/22] acetaminophen 500 mg tablet 1,000 mg PO Q8H PRN PRN Pain #30 tabs 12/03/22 [Rx Last Taken 11/29/22] atorvastatin 10 mg tablet 10 mg PO QHS cholesterol 12/03/22 [History Last Taken Unknown] nitroglycerin 0.4 mg sublingual tablet 0.4 mg sublingual Q5M PRN Cardiac/Chest Pain 30 days #30 tabs 12/03/22 [Rx Last Taken Unknown] sennosides 8.6 mg-docusate sodium 50 mg tablet (Stool Softener-Stimulant Laxative) 2 tab PO BID #0 tabs 12/03/22 [Rx Last Taken Unknown] famotidine 40 mg tablet 20 mg PO DAILY 12/06/22 [History Last Taken Unknown] furosemide 20 mg tablet 20 mg PO DAILY diuretic 12/07/22 [History Last Taken Unknown] hydralazine 50 mg tablet 25 mg PO BID 12/07/22 [History Last Taken Unknown] insulin glargine-yfgn 100 unit/mL (3 mL) subcutaneous pen (Semglee (insulin glargine-yfgn) Pen) 30 unit subcut DAILY 12/07/22 [History Last Taken Unknown] loratadine 10 mg tablet 10 mg PO DAILY 12/07/22 [History Last Taken Unknown] metoprolol succinate 25 mg tablet,extended release 24 hr 12.5 mg PO DAILY BP 12/07/22 [History Last Taken Unknown] sertraline 25 mg tablet 37.5 mg PO DAILY DEPRESSION 12/07/22 [History Last Taken Unknown] dulaglutide 4.5 mg/0.5 mL subcutaneous pen injector 4.5 mg (0.5 mL) subcut .COMPLEX DM 3 months #2 mL 12/09/22 [Rx Last Taken Unknown] amoxicillin 875 mg-potassium clavulanate 125 mg tablet 1 tab PO Q12H #10 tabs 12/13/22 [Rx Last Taken Unknown] apixaban 2.5 mg tablet (Eliquis) 2.5 mg PO BID #60 tabs 12/13/22 [Rx Last Taken Unknown] amiodarone 200 mg tablet 200 mg PO DAILY #30 tabs 12/19/22 [Rx Last Taken Unknown] Allergy/AdvReac Type Severity Reaction Status Date / Time hydrocodone bitartrate AdvReac Severe Other Verified 12/07/22 17:36 [From Vicodin] hydroxyzine AdvReac Severe Other Verified 12/07/22 17:36 doxycycline AdvReac Intermediate Shortness Verified 12/09/22 08:45 of breath (had CHF also, may not be true allergy Family History Father Diabetes Hypertension Cancer Lung cancer Mother Hypertension CVA (cerebral vascular accident) Sister Diabetes Son Diabetes Surgical History History of cardioversion (2015) History of cataract surgery History of left heart catheterization (02/16/13) History of lithotripsy (11/2020) History of loop recorder (06/26/22) History of radiofrequency ablation procedure for cardiac arrhythmia (02/05/06) history of right knee cap fracture History of right knee surgery Status post laser lithotripsy of ureteral calculus Status post left foot surgery STENT PLACEMENT FOR KIDNEY STONE Social History household members: spouse housing: house Smoking Status: Never smoker how long ago did patient quit smokin second hand exposure: No alcohol intake: never substance use type: does not use caffeine: No what type of physical activity do you participate in: none seatbelt use: always do you feel safe at home: Yes ROS ROS ED ROS Narrative Past medical history: Reviewed, it is extensive. See [employer] diagnoses Medications: Reviewed Social history: Noncontributory Review of systems: All systems negative except as indicated General: No fever. Chronic weakness Eyes: No visual changes ENT: No upper airway congestion, normal voice Neck: No neck pain Cardiovascular: No chest pain Respiratory: Dyspnea as in HPI Gastrointestinal: No abdominal pain, nausea vomiting or diarrhea Genitourinary: No dysuria Musculoskeletal: Bilateral lower extremity edema seems to be worse on the left. Skin: No rash Neurological: No memory loss, confusion or any focal weakness Psych: No recent behavioral changes Hematologic: No easy bleeding or easy bruising EXAM Physical Exam Narrative Exam Narrative: Physical exam General: Patient appears chronically ill. He does not appear in significant distress currently. Head: Normocephalic, Atraumatic Eyes: Conjunctiva not pale ENT: Moist mucous membranes Neck: Supple, Nontender, No lymphadenopathy Cardiovascular: Mostly regular, no obvious murmur however auscultation is difficult secondary to body habitus Respiratory: Coarse bilateral breath sounds, again difficult auscultation secondary to body habitus Abdomen: Soft, Nontender, Nondistended Back: Nontender, Normal Inspection. Negative for: CVA tenderness Extremities: Bilateral lower extremity edema, no evidence of cellulitis, they seem relatively symmetric to me I do not see a difference between the left and the right. Skin: Normal color, No rash Const Vital Signs: 12/23/22 09:54 12/23/22 10:03 12/23/22 10:22 Temperature 97.6 F L Temperature Source Temporal Pulse Rate 70 Respiratory Rate 23 H Respiratory Effort Normal Respiratory Pattern Normal Blood Pressure 157/62 H Blood Pressure Mean 93 Pulse Ox 94 Oxygen Delivery Method Room Air MDM MDM MDM Narrative Medical decision making narrative: A. Problems addressed\ Patient has shortness of breath and lower extremity edema he had an ultrasound on Friday which was normal I do not believe he has a DVT. He is also anticoagulated. I also do not believe he has a PE. I thought about pneumonia but there is no evidence on x-ray. The EKG does not show acute ischemia or any OK. Patient is found to have CHF and I will treat with IV Lasix. He is not desaturating however he is quite weak and can barely stand up and not take care of his ADLs at this time should he is home by himself and I will admit for CHF exacerbation. B. Amount and/or complexity of the data (2 out of 3) 1. Any 3 CBC and CMP troponin and natruretic peptide interpreted by me 2. Independent interpretation of test Telemetry: Sinus rhythm with a rate in the 70s EKG Bedside ultrasound X-ray read by me I have thought about doing the following tests but the patient 3. Discussion of management with hospitalist for admission C. Risk of complications and/or morbidity Differential diagnosis: See above Lab Data Labs: Laboratory Results - last 24 hr 12/23/22 12/23/22 12/23/22 10:25 10:25 10:25 WBC 6.7 RBC 3.22 L Hgb 9.4 L Hct 30.3 L MCV 94.1 H MCH 29.2 MCHC 31.0 L RDW Std Deviation 47.7 H RDW Coeff of Flavio 13.9 Plt Count 189 MPV 9.7 Immature Gran % (Auto) 0.400 Neut % (Auto) 72.5 H Lymph % (Auto) 14.3 L Mower % (Auto) 9.0 Eos % (Auto) 3.1 Baso % (Auto) 0.7 Absolute Neuts (auto) 4.9 Absolute Lymphs (auto) 0.96 Nucleated RBC % 0 Sodium 142 Potassium 3.9 Chloride 113 H Carbon Dioxide 22.0 Anion Gap 7 BUN 24 H Creatinine 1.43 H Estim Creat Clear Calc 42.96 Est GFR (MDRD) Af Amer 61 Est GFR (MDRD) Non-Af 50 L BUN/Creatinine Ratio 16.8 Glucose 123 H Calcium 8.6 Total Bilirubin 0.40 AST 39 H ALT 45 Alkaline Phosphatase 89 Troponin I High Sens 39 B-Natriuretic Peptide 867.2 H Total Protein 6.7 Albumin 2.9 L Globulin 3.8 Albumin/Globulin Ratio 0.8 L Radiography Diagnostic Testing: Clinical Impression(s) from Imaging Studies Chest X-Ray 12/23/22 10:55 IMPRESSION: Cardiomegaly and CHF. Blunting of the right costophrenic angle. Electronically Signed: Leo Fay MD at 11:18 EDT , Chest x-ray read by me shows CHF and cardiomegaly. EKG Initial EKG: Comments: Sinus rhythm, with a rate of 70. GA interval is somewhat prolonged. QTc is also prolonged at 540. Patient has an intraventricular conduction delay. Interpreted by emergency doctor Discharge Plan Triage Chief Complaint: Weakness ED Provider: Mani Claire Dx/Rx/DC Orders Clinical Impression: Weakness, CHF (congestive heart failure), Diabetes, Acute dyspnea Prescriptions: No Action meclizine 25 mg tablet 25 mg PO TID PRN (Reason: dizziness) Qty: 90 0RF famotidine 40 mg tablet 20 mg PO DAILY progesterone micronized 100 mg capsule 100 mg PO QAM nitroglycerin 0.4 mg Tablet, Sublingual 0.4 mg sublingual Q5M PRN (Reason: Cardiac/Chest Pain) 30 Days Qty: 30 0RF sennosides-docusate sodium [Stool Softener-Stimulant Laxat] 8.6-50 mg Tablet 2 tab PO BID Qty: 0 0RF acetaminophen 500 mg Tablet 1,000 mg PO Q8H PRN PRN (Reason: Pain) Qty: 30 0RF atorvastatin 10 mg tablet 10 mg PO QHS loratadine 10 mg tablet 10 mg PO DAILY Label Comments: take 1 tablet by mouth once daily insulin glargine-yfgn [Semglee(insulin glarg-yfgn)Pen] 100 unit/mL (3 mL) insulin pen 30 unit SUBCUT DAILY Label Comments: inject 30 units subcutaneously every morning sertraline 25 mg tablet 37.5 mg PO DAILY hydralazine 50 mg tablet 25 mg PO BID furosemide 20 mg tablet 20 mg PO DAILY Hold Instructions: Resume on 12/16/22. Label Comments: take 1 tablet by mouth once daily Rx Instructions: Take an additional 40 mg dose at 5 PM for increased leg swelling or weight gain 5 pounds in 1 week. metoprolol succinate 25 mg tablet extended release 24 hr 12.5 mg PO DAILY amoxicillin-pot clavulanate 875-125 mg tablet 1 tab PO Q12H Qty: 10 0RF Eliquis 2.5 mg tablet 2.5 mg PO BID Qty: 60 0RF finasteride 5 mg tablet 5 mg PO DAILY Qty: 90 3RF ergocalciferol (vitamin D2) 1,250 mcg (50,000 unit) capsule 50,000 unit PO QMONTH Qty: 14 1RF ferrous sulfate 325 mg (65 mg iron) tablet 325 mg PO Qty: 90 1RF Rx Instructions: only pramipexole [Mirapex] 1 mg tablet 2 mg PO QHS Qty: 180 3RF dulaglutide 4.5 mg/0.5 mL pen injector 4.5 mg SC .COMPLEX 90 Days Qty: 2 2RF Rx Instructions: 4.5 mg subcut every friday amiodarone 200 mg tablet 200 mg PO DAILY Qty: 30 11RF Primary Care Provider: Tosha Shrestha Referrals: Tosha Shrestha MD [Primary Care Provider] - Disposition Disposition: Acute Care Hospital [facility]
--- NOTE | 2022-12-23 10:55 | RAD_ITS ---
STUDY: X-RAY CHEST REASON FOR EXAM: Male, 82 years old. Sob TECHNIQUE: Single AP portable view of the chest. COMPARISON: Comparison is made with prior examination dated December 07, 2022. FINDINGS: EKG electrodes are seen. There is evidence of passive congestion and CHF. Blunting of the right costophrenic angle with right basilar atelectasis. There is moderate cardiac enlargement. A left-sided dual-chamber pacemaker is seen. A loop recorder device is seen overlying the left cardiac apex. Normal mediastinum and lakhwinder. Normal visualized pulmonary arteries. There is atherosclerotic calcification of the aortic arch with tortuosity. There are diffuse degenerative changes of the visualized thoracic spine. Normal visualized ribs, clavicles, and shoulders. There is no demonstrated abnormality of the visualized soft tissue structures of the upper abdomen. RAD/Chest 1 View (Portable) IMPRESSION: Cardiomegaly and CHF. Blunting of the right costophrenic angle. Electronically Signed: Leo Fay MD at 11:18 EDT ,
[2022-12-23 10:58] LABS: Absolute Lymphocyte Count 0.96 X10^3/uL (0.83-4.51); Absolute Neutrophil Count 4.9 X10^3/uL (2.0-7.7); Basophil# 0.05 X10^3/uL; Basophil% 0.7 % (0-1); Eosinophil# 0.21 X10^3/uL; Eosinophils% 3.1 % (0-5); Hematocrit 30.3 % (40-54); Hemoglobin 9.4 g/dL (13.0-16.5); Lymphocyte # 0.96 X10^3/ul (0.83-4.51); Lymphocyte % 14.3 % (19-41); Mean Corpuscular Hgb 29.2 pg (27.0-32.0); Mean Corpuscular Volume 94.1 fL (80-94); Mean Platelet Vol. 9.7 fl (6.2-12.0); NRBC Flagged by Analyzer 0 % (0-5); Neutrophil # 4.85 X10^3/uL (2.7-7.7); Neutrophil % 72.5 % (47-70); Platelet Count 189 K/mm3 (150-450); RBC Distribution Width CV 13.9 % (11.6-14.6); RBC Distribution Width SD 47.7 fl (35.1-43.9); Red Blood Count 3.22 M/mm3 (4.6-6.2); White Blood Count 6.7 K/mm3 (4.4-11.0)
[2022-12-23 11:16] LABS: ALB/GLOB Ratio 0.8 RATIO (0.9-2.4); AST(SGOT) 39 U/L (15-37); Alanine Aminotransfer ALT/SGPT 45 U/L (16-61); Albumin, Serum 2.9 g/dL (3.2-5.0); Alkaline Phosphatase 89 U/L (45-117); Anion Gap 7 (5-15); BUN 24 mg/dL (7-18); BUN/Creat Ratio 16.8 RATIO (10-20); Calcium,Total 8.6 mg/dL (8.5-10.1); Chloride 113 mmol/L (98-107); Creatinine, Serum 1.43 mg/dL (0.70-1.30); EST Glomerular Filtration Rate 50 mL/min (>60); Est Glom Filt Rate - Afr Amer 61 mL/min (>60); Estimated Creatinine Clearance 42.96 ml/min; Globulin 3.8 g/dL (2.2-4.2); Glucose 123 mg/dL (74-106); Potassium 3.9 mmol/L (3.5-5.1); Protein, Total 6.7 g/dL (6.4-8.2); Sodium Level 142 mmol/L (136-145); Troponin-I HS 39 pg/mL (3.0-78.0)
[2022-12-23 11:25] LABS: BNP,B-Type NATRIURETIC PEPTIDE 867.2 pg/mL (0-100)
[2022-12-23 12:11] LABS: Bacteria 0 SEEN /hpf (None Seen); Mucous, Urine 0 SEEN /hpf (<or=2+); Red Blood Cells-Urine 0 SEEN /hpf (0-5); Squamous Epithelial Cells - UA 0 SEEN /hpf (0-5)
[2022-12-23 12:16] LABS: Glucose, Dipstick Normal (Normal); Ketone-Dipstick Negative (Negative); Leukocyte Esterase-Dipstick 500 /ul (Negative); Nitrite-Dipstick Negative (Negative); Occult Blood-Urine Negative /ul (Negative); Protein-Dipstick 30 mg/dl (Negative); Urine Bilirubin Dipstick Negative (Negative); Urine Urobilinogen Normal (Normal)
[2022-12-23 12:35] LABS: Color, Urine Yellow (Yellow); Urine Clarity Clear (Clear)
[2022-12-23 12:36] LABS: White Blood Cells 0-5 SEEN /hpf (0-5)
[2022-12-23] MEDS: Furosemide 40 MG/4 ML Vial IV (13:01)
--- NOTE | 2022-12-23 13:06 | NURSING ---
PCU OBS [facility]AN[facility] CHF
[2022-12-23] MEDS: Insulin Lispro 100 UNIT/ML INSULN.PEN SC (16:34)
[2022-12-23 16:45] LABS: Bedside Glucose 181 mg/dL (74-106)
--- NOTE | 2022-12-23 18:53 | PCM.HP.STD ---
[facility] - General General Date of Admission: 12/23/22 Date of Service: 12/23/22 Chief Complaint: Shortness of breath HPI Narrative MARY SAN, is a 82 M who presents to the emergency room at [facility] today with complaints of shortness of breath over the last several days. Patient had been discharged from the hospital approximately 10 days ago, at that time he was hospitalized for wide-complex tachycardia, acute renal failure with an overlap of chronic kidney disease stage IIIb, and a partial left second toe amputation. Work-up in the emergency room today included a chest x-ray which indicated CHF, patient was however not hypoxic on room air, patient CBC was remarkable for hemoglobin of 9.4, white count was normal, chemistry panel revealed a creatinine of 1.43 and a BUN of 24, patient's beta natruretic peptide was elevated at 867. Patient will be placed in observation status for acute on chronic diastolic CHF, he will be given IV Lasix, labs will be monitored. As a further note, patient states that he stopped his amiodarone because he felt bad on this medication, it had been started during his last admission here at the hospital, I talked to cardiology and cardiology insisted that the patient go back on amiodarone 200 mg daily, patient agreed to this. I also talked with the patient's who was in his room at the time my examination today. [facility] Medical History (HFpEF) heart failure with preserved ejection fraction (12/12/20) Acute on chronic diastolic HF (heart failure) Acute respiratory failure with hypoxia Anemia Anemia of chronic renal failure, stage 3 (moderate) Anxiety and depression Atherosclerotic heart disease of [place] coronary artery without angina pectoris Atrial flutter Atypical chest pain Back pain BMI 34.0-34.9,adult BPH (benign prostatic hyperplasia) BPPV (benign paroxysmal positional vertigo) Bradycardia Cardiac dysrhythmia Cardiology follow-up encounter CHF (congestive heart failure) CHF (congestive heart failure) De Quervain's tenosynovitis Debility Depression Dermatitis Diabetes mellitus Diabetic kidney disease Dizziness DM type 2 with diabetic peripheral neuropathy DVT (deep venous thrombosis) Dyslipidemia Dysphagia Essential (primary) hypertension Fall Flu vaccine need Fracture of great toe Gastric reflux Gout Gout flare Health care maintenance History of echocardiogram History of edema History of GI bleed History of peptic ulcer History of renal calculi History of ulceration HLD (hyperlipidemia) Injury of head and neck Iron deficiency anemia Iron deficiency anemia due to chronic blood loss Kidney hematoma (12/08/20) Left knee pain Left leg DVT Loss of equilibrium Low iron Malaise Near syncope Orthostatic hypotension MACHELLE (obstructive sleep apnea) Pain of left lower extremity Paroxysmal atrial fibrillation Paroxysmal atrial flutter Pneumonia Polypharmacy 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 Presence of cardiac pacemaker Prostate disease Psoriasis Recurrent syncope (06/19/22) Renal calculi RLS (restless legs syndrome) Sex disorder Sick sinus syndrome Suicidal ideation SVT (supraventricular tachycardia) TIA (transient ischemic attack) Type 2 diabetes mellitus with diabetic polyneuropathy Urolithiasis Venous insufficiency of both lower extremities Vertigo Walker as ambulation aid Wears glasses Home Medications finasteride 5 mg tablet 5 mg PO DAILY PROSTATE #90 tabs 11/03/18 [Rx Last Taken 12/23/22] progesterone micronized 100 mg capsule 100 mg PO QAM HORMONE 10/06/22 [History Last Taken 12/23/22] meclizine 25 mg tablet 25 mg PO TID PRN dizziness #90 tabs 10/24/22 [Rx Last Taken 11/29/22] ergocalciferol (vitamin D2) 1,250 mcg (50,000 unit) capsule 50,000 unit PO QMONTH SUPPLEMENT #14 caps 11/29/22 [Rx Last Taken 12/16/22] ferrous sulfate 325 mg (65 mg iron) tablet 325 mg PO TH supplement #90 tabs 11/29/22 [Rx Last Taken 12/19/22] pramipexole 1 mg tablet (Mirapex) 2 mg PO QHS RLS #180 tabs 11/29/22 [Rx Last Taken 12/22/22] acetaminophen 500 mg tablet 1,000 mg PO Q8H PRN PRN Pain #30 tabs 12/03/22 [Rx Last Taken 12/23/22 06:00] atorvastatin 10 mg tablet 10 mg PO QHS cholesterol 12/03/22 [History Last Taken 12/22/22] nitroglycerin 0.4 mg sublingual tablet 0.4 mg sublingual Q5M PRN Cardiac/Chest Pain 30 days #30 tabs 12/03/22 [Rx Last Taken Unknown] sennosides 8.6 mg-docusate sodium 50 mg tablet (Stool Softener-Stimulant Laxative) 2 tab PO BID #0 tabs 12/03/22 [Rx Last Taken Unknown] famotidine 40 mg tablet 20 mg PO DAILY 12/06/22 [History Last Taken 12/23/22] furosemide 20 mg tablet 20 mg PO DAILY diuretic 12/07/22 [History Last Taken 12/23/22] hydralazine 50 mg tablet 25 mg PO BID 12/07/22 [History Last Taken 12/23/22] insulin glargine-yfgn 100 unit/mL (3 mL) subcutaneous pen (Semglee (insulin glargine-yfgn) Pen) 30 unit subcut DAILY 12/07/22 [History Last Taken 12/23/22] loratadine 10 mg tablet 10 mg PO DAILY 12/07/22 [History Last Taken Unknown] metoprolol succinate 25 mg tablet,extended release 24 hr 12.5 mg PO DAILY BP 12/07/22 [History Last Taken 12/23/22] sertraline 25 mg tablet 37.5 mg PO DAILY DEPRESSION 12/07/22 [History Last Taken 12/23/22] dulaglutide 4.5 mg/0.5 mL subcutaneous pen injector 4.5 mg (0.5 mL) subcut .COMPLEX DM 3 months #2 mL 12/09/22 [Rx Last Taken 12/20/22] apixaban 2.5 mg tablet (Eliquis) 2.5 mg PO BID #60 tabs 12/13/22 [Rx Last Taken 12/23/22] amiodarone 200 mg tablet 200 mg PO DAILY #30 tabs 12/19/22 [Rx Last Taken Unknown] Allergy/AdvReac Type Severity Reaction Status Date / Time hydrocodone bitartrate AdvReac Severe Other Verified 12/07/22 17:36 [From Vicodin] hydroxyzine AdvReac Severe Other Verified 12/07/22 17:36 doxycycline AdvReac Intermediate Shortness Verified 12/09/22 08:45 of breath (had CHF also, may not be true allergy Family History Father Diabetes Hypertension Cancer Lung cancer Mother Hypertension CVA (cerebral vascular accident) Sister Diabetes Son Diabetes Surgical History History of cardioversion (2015) History of cataract surgery History of left heart catheterization (02/16/13) History of lithotripsy (11/2020) History of loop recorder (06/26/22) History of radiofrequency ablation procedure for cardiac arrhythmia (02/05/06) history of right knee cap fracture History of right knee surgery Status post laser lithotripsy of ureteral calculus Status post left foot surgery STENT PLACEMENT FOR KIDNEY STONE Social History household members: spouse housing: house Smoking Status: Never smoker how long ago did patient quit smokin second hand exposure: No alcohol intake: never substance use type: does not use caffeine: No what type of physical activity do you participate in: none seatbelt use: always do you feel safe at home: Yes ROS Constitutional Constitutional: Denies anorexia, change in weight, chills, fatigue, fever(s), malaise, night sweats or weakness Eyes Eyes: Denies blurry vision, change in eye color, change in vision, discharge from eye(s) or eye pain Cardiovascular Cardiovascular: Reports dyspnea on exertion; Denies chest pain, claudication, edema or palpitations Respiratory/Chest Respiratory/Chest: Reports dyspnea, shortness of breath at rest and shortness of breath with exertion; Denies cough or hemoptysis Gastrointestinal Gastrointestinal: Denies abdominal pain, coffee ground emesis, constipation, diarrhea, dyspepsia, hematemesis, hematochezia, melena, nausea or vomiting Genitourinary Genitourinary: Denies dysuria, hematuria, urinary frequency, urinary hesitancy, urinary incontinence or urinary urgency Musculoskeletal Musculoskeletal: Denies back pain, joint pain, joint stiffness, joint swelling, myalgias or neck pain Neurologic Neurologic: Denies abnormal gait, abnormal speech, confusion, disequilibrium, dizziness, focal weakness, headache(s), loss of vision, numbness, other visual disturbances, paresthesias, syncope or tingling Psychiatric Psychiatric: Denies anxiety, cognitive impairment, depression, irritability, mood swings or suicidal ideation Endocrine Endocrinology: Denies change in body appearance, cold intolerance, excessive sweating, heat intolerance, polydipsia or polyuria Hematologic/Lymphatic Hematologic/Lymphatic: Denies none, anemia, easy bleeding, easy bruising or lymphadenopathy Allergic/Immunologic Allergic/Immunologic: Denies rhinitis, urticaria, eczemia or asthma Vital Signs Vital Signs Vital Signs: 12/23/22 09:54 12/23/22 10:03 12/23/22 10:22 Temperature 97.6 F L Temperature Source Temporal Pulse Rate 70 Respiratory Rate 23 H Respiratory Effort Normal Respiratory Depth Respiratory Pattern Normal Blood Pressure 157/62 H Blood Pressure Mean 93 Blood Pressure Source Blood Pressure Position Blood Pressure Location Pulse Ox 94 Oxygen Delivery Method Room Air 12/23/22 12:31 12/23/22 12:47 12/23/22 13:34 Temperature 98 F 97.7 F L Temperature Source Temporal Oral Pulse Rate 70 70 71 Respiratory Rate 20 H 20 H 18 Respiratory Effort Respiratory Depth Respiratory Pattern Blood Pressure 163/69 H 163/69 H 176/67 H Blood Pressure Mean 100 100 103 Blood Pressure Source Monitor Blood Pressure Position Sitting Blood Pressure Location Right Arm Pulse Ox 96 96 97 Oxygen Delivery Method Room Air Room Air Room Air 12/23/22 14:00 12/23/22 13:34 12/23/22 16:25 Temperature 97.7 F L 98.2 F Temperature Source Oral Oral Pulse Rate 71 70 Respiratory Rate 18 18 Respiratory Effort Normal Non-Labored Respiratory Depth Normal Respiratory Pattern Normal Blood Pressure 176/67 H 160/64 H Blood Pressure Mean 103 96 Blood Pressure Source Monitor Blood Pressure Position Semi-Fowlers Blood Pressure Location Left Arm Pulse Ox 97 96 Oxygen Delivery Method Room Air Room Air Room Air Weight Weight: 129.9 kg Body Mass Index (BMI) 38.8 Physical Exam Const alert, oriented x3, no apparent distress, average body habitus and healthy appearing General Appearance: cooperative, well kempt and well developed Orientation / Consciousness: awake, oriented to person, oriented to place and oriented to time HEENT normocephalic, head/scalp atraumatic and moist oral mucous membranes HEENT Narrative: Patient is hard of hearing Eyes PERRL, EOMs intact bilaterally and conjunctivae normal Neck supple, no JVD, thyroid normal and no carotid bruits General: trachea midline Resp normal respiratory effort, no retractions, no use of accessory muscles and clear to auscultation bilaterally Auscultation: Negative for rales, rhonchi or wheezes Cardio regular rate, regular rhythm, S1 normal heart sound, S2 normal heart sound, no murmurs, no rub and no gallops GI normal to inspection, nondistended, normoactive bowel sounds, soft to palpation, non-tender and non-distended Extremity normal to inspection Extremity Narrative: Patient has moderate edema of his left lower extremity, there is trace edema in the right lower extremity Neuro oriented x3, CN's II-XII intact bilaterally, moves all extremities, no focal motor deficits and no sensory deficits noted Sensorium / Orientation: awake, alert, oriented to person, oriented to place and oriented to time Speech: speech normal Psych affect normal Results Lab / Micro Data Result Diagrams: 12/23/22 10:25 12/23/22 10:25 Labs: Laboratory Results - last 24 hr 12/23/22 10:25: WBC 6.7, RBC 3.22 L, Hgb 9.4 L, Hct 30.3 L, MCV 94.1 H, MCH 29.2, MCHC 31.0 L, RDW Std Deviation 47.7 H, RDW Coeff of Flavio 13.9, Plt Count 189, MPV 9.7, Immature Gran % (Auto) 0.400, Neut % (Auto) 72.5 H, Lymph % (Auto) 14.3 L, [place] % (Auto) 9.0, Eos % (Auto) 3.1, Baso % (Auto) 0.7, Absolute Neuts (auto) 4.9, Absolute Lymphs (auto) 0.96, Nucleated RBC % 0 12/23/22 10:25: Sodium 142, Potassium 3.9, Chloride 113 H, Carbon Dioxide 22.0, Anion Gap 7, BUN 24 H, Creatinine 1.43 H, Estim Creat Clear Calc 42.96, Est GFR (MDRD) Af Amer 61, Est GFR (MDRD) Non-Af 50 L, BUN/Creatinine Ratio 16.8, Glucose 123 H, Calcium 8.6, Total Bilirubin 0.40, AST 39 H, ALT 45, Alkaline Phosphatase 89, Troponin I High Sens 39, Total Protein 6.7, Albumin 2.9 L, Globulin 3.8, Albumin/Globulin Ratio 0.8 L 12/23/22 10:25: B-Natriuretic Peptide 867.2 H 12/23/22 12:00: Urine Color Yellow, Urine Clarity Clear, Urine pH 6.0, Ur Specific [place] 1.010, Urine Protein 30 H, Urine Glucose (UA) Normal, Urine Ketones Negative, Urine Occult Blood Negative, Urine Nitrite Negative, Urine Bilirubin Negative, Urine Urobilinogen Normal, Ur Leukocyte Esterase 500 H, Urine RBC 0 SEEN, Urine WBC 0-5 SEEN, Ur Squamous Epith Cells 0 SEEN, Urine Bacteria 0 SEEN, Urine Mucus 0 SEEN 12/23/22 16:22: POC Glucose 181 H Radiology Impression Chest X-Ray 12/23/22 10:55 IMPRESSION: Cardiomegaly and CHF. Blunting of the right costophrenic angle. Electronically Signed: Leo Fay MD at 11:18 EDT , Assessment & Plan Assessment/Plan (1) CHF (congestive heart failure): PLAN: Plan 1. 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 patternmaker apprentice metal, he recommends patient go back on amiodarone, patient is okay with this #5 obstructive sleep apnea-patient is on BiPAP while sleeping, this was written for the patient during his hospitalization #6 hyperlipidemia-patient is on a statin #7 chronic anticoagulation with Eliquis due 2 paroxysmal [id number] is currently on Eliquis at the present time #8 chronic depression-patient is on Zoloft #9 paroxysmal [id number] is on anticoagulation and rate limiting medication #10 BPH-patient is currently on Proscar #11 GERD-patient is on Pepcid #12 anemia of chronic kidney disease-patient's CBC will be monitored as needed Total clinical time spent by myself addressing the patient's medical issues, reviewing all of his data, and collaborating with patient's care team: 75-minutes Charges/Coding Visit Charges Inpatient E&M: 12812 Init Hosp L3
[2022-12-23] MEDS: Senna/Docusate Sodium 1 Tablet 2 TABLET PO (21:36)
[2022-12-23] MEDS: APIXABAN 2.5 MG TABLET (WCH) PO (21:38)
[2022-12-23] MEDS: hydrALAZINE 50 MG Tablet 25 MG PO (21:39)
[2022-12-23] MEDS: Atorvastatin Calcium 10 MG Tablet PO (21:39)
[2022-12-23] MEDS: Furosemide 20 MG/2 ML VIAL IV (21:42)
[2022-12-23] MEDS: Pramipexole Di-HCl 1 MG Tablet 2 MG PO (21:42)
[2022-12-23] MEDS: Ondansetron 4 MG/2 ML Vial IV (21:58)
[2022-12-23] MEDS: Acetaminophen 500 MG Tablet 1000 MG PO (21:58)
[2022-12-23 22:55] LABS: Bedside Glucose 101 mg/dL (74-106)
[2022-12-24] VITALS (8 sets, daily range): BP systolic 143–146; BP diastolic 62–77; PULSE 70; RESP 16–18; TEMP 36.4–36.8; O2SAT 93–98; BMI 38.0
--- NOTE | 2022-12-24 05:17 | CPS ---
Pt had RN to take off bipap, 2 L nasal o2 applied per pt request,
[2022-12-24] MEDS: Furosemide 20 MG/2 ML VIAL IV (05:19)
[2022-12-24 06:00] LABS: Absolute Lymphocyte Count 1.11 X10^3/uL (0.83-4.51); Absolute Neutrophil Count 5.2 X10^3/uL (2.0-7.7); Basophil# 0.05 X10^3/uL; Basophil% 0.7 % (0-1); Eosinophil# 0.25 X10^3/uL; Eosinophils% 3.4 % (0-5); Hematocrit 30.6 % (40-54); Hemoglobin 9.2 g/dL (13.0-16.5); Lymphocyte # 1.11 X10^3/ul (0.83-4.51); Lymphocyte % 15.2 % (19-41); Mean Corp Hgb Conc 30.1 g/dL (32-36); Mean Corpuscular Hgb 29.3 pg (27.0-32.0); Mean Corpuscular Volume 97.5 fL (80-94); Mean Platelet Vol. 9.6 fl (6.2-12.0); Monocyte# 0.65 X10^3/uL; Monocyte% 8.9 % (0-10); NRBC Flagged by Analyzer 0 % (0-5); Neutrophil # 5.22 X10^3/uL (2.7-7.7); Neutrophil % 71.4 % (47-70); Platelet Count 188 K/mm3 (150-450); RBC Distribution Width CV 13.9 % (11.6-14.6); RBC Distribution Width SD 49.2 fl (35.1-43.9); Red Blood Count 3.14 M/mm3 (4.6-6.2); White Blood Count 7.3 K/mm3 (4.4-11.0)
[2022-12-24 06:34] LABS: Anion Gap 5 (5-15); BUN 24 mg/dL (7-18); BUN/Creat Ratio 16.7 RATIO (10-20); Calcium,Total 8.7 mg/dL (8.5-10.1); Chloride 110 mmol/L (98-107); Creatinine, Serum 1.44 mg/dL (0.70-1.30); EST Glomerular Filtration Rate 50 mL/min (>60); Est Glom Filt Rate - Afr Amer 60 mL/min (>60); Estimated Creatinine Clearance 42.66 ml/min; Glucose 111 mg/dL (74-106); Potassium 4.1 mmol/L (3.5-5.1); Sodium Level 143 mmol/L (136-145)
[2022-12-24 07:55] LABS: Bedside Glucose 109 mg/dL (74-106)
[2022-12-24] MEDS: Senna/Docusate Sodium 1 Tablet 2 TABLET PO (08:05)
[2022-12-24] MEDS: Sertraline 50 MG Tablet 37.5 MG PO (08:05)
[2022-12-24] MEDS: Finasteride 5 MG Tablet PO (08:06)
[2022-12-24] MEDS: hydrALAZINE 50 MG Tablet 25 MG PO (08:06)
[2022-12-24] MEDS: Famotidine 20 MG Tablet PO (08:06)
[2022-12-24] MEDS: Amiodarone 200 MG Tablet PO (08:06)
[2022-12-24] MEDS: APIXABAN 2.5 MG TABLET (WCH) PO (08:06)
[2022-12-24] MEDS: PROGESTERONE, MICRONIZED 100 MG CAPSULE PO (08:07)
[2022-12-24] MEDS: Metoprolol(XL)Succ 25 MG Tablet 12.5 MG PO (08:10)
--- NOTE | 2022-12-24 09:17 | CM.UR ---
Discharge Planning Referral sent to [facility] to resume services upon discharge. Meghan Trujillo
--- NOTE | 2022-12-24 10:09 | CASEMGMT ---
TIMOTHY LOPEZ in to discuss needs at discharge. TIMOTHY LOPEZ inquired if patient had reached out to PCP, tree planter, or [facility] prior to stopping Amiodarone at home. Patient states he tried calling Dr. Rogers's office but no one got back with him. TIMOTHY LOPEZ discussed with patient that [facility] is available 10/03 to discuss questions, symptoms, or concerns. Patient voiced understanding and states he had tried that another time several months ago but no one returned his call. RN JESSICA discuss Palliative Care that was set up last admission, patient states that he saw them. RN JESSICA updated patient that numbers for [facility] and Palliative will be on discharge plan to call when patient has concerns prior to needing to come to ED. Patient voiced understanding. TIMOTHY LOPEZ called [facility] to reach out regarding visits. TIMOTHY LOPEZ called Derrek at [facility]. Per Derrek, they saw patient on 12/16 and declined services as patient states he already sees enough professionals. TIMOTHY LOPEZ in to discuss Palliative Care with patient again. Patient agreeable to Palliative consult. TIMOTHY LOPEZ updated hospitalist and order received for Palliative consult. RN JESSICA sent referral to [facility]. CM will continue to follow this patient and plan for a safe discharge.
--- NOTE | 2022-12-24 10:57 | WOUNDNOTE ---
wound photo: left 2nd toe
[2022-12-24] MEDS: Insulin Glargine-YFGN 100 UNIT/ML Pen 30 UNIT SC (11:08)
[2022-12-24] MEDS: Insulin Lispro 100 UNIT/ML INSULN.PEN SC (11:08)
[2022-12-24 11:21] LABS: Bedside Glucose 169 mg/dL (74-106)
--- NOTE | 2022-12-24 11:45 | DCINST_ITS ---
Discharge Instructions Diet Discharge Diet: 1800 Calorie Control Diet Activity Discharge Activity: Return to Normal Activity Weight Bearing Status: Full weight bearing Follow Up Care Test Results: Test results from this visit will be discussed in further detail at your follow- up appointment, if applicable. Discharge Plan Admission Admit Date/Time: 12/23/22 13:27 Primary Reason for Your Visit: CHF Attending Provider: Caden Hernandez Primary Care Provider: Tosha Shrestha Discharge Orders/Prescriptions Prescriptions: New furosemide [Lasix] 40 mg tablet 60 mg PO DAILY Qty: 45 0RF potassium chloride 20 mEq tablet extended release 20 meq PO DAILY Qty: 30 0RF Continued meclizine 25 mg tablet 25 mg PO TID PRN (Reason: dizziness) Qty: 90 0RF famotidine 40 mg tablet 20 mg PO DAILY progesterone micronized 100 mg capsule 100 mg PO QAM nitroglycerin 0.4 mg Tablet, Sublingual 0.4 mg sublingual Q5M PRN (Reason: Cardiac/Chest Pain) 30 Days Qty: 30 0RF sennosides-docusate sodium [Stool Softener-Stimulant Laxat] 8.6-50 mg Tablet 2 tab PO BID Qty: 0 0RF acetaminophen 500 mg Tablet 1,000 mg PO Q8H PRN PRN (Reason: Pain) Qty: 30 0RF atorvastatin 10 mg tablet 10 mg PO QHS insulin glargine-yfgn [Semglee(insulin glarg-yfgn)Pen] 100 unit/mL (3 mL) insulin pen 30 unit SUBCUT DAILY Label Comments: inject 28 units subcutaneously every morning sertraline 25 mg tablet 37.5 mg PO DAILY hydralazine 50 mg tablet 25 mg PO BID metoprolol succinate 25 mg tablet extended release 24 hr 12.5 mg PO DAILY Eliquis 2.5 mg tablet 2.5 mg PO BID Qty: 60 0RF finasteride 5 mg tablet 5 mg PO DAILY Qty: 90 3RF ergocalciferol (vitamin D2) 1,250 mcg (50,000 unit) capsule 50,000 unit PO QMONTH Qty: 14 1RF ferrous sulfate 325 mg (65 mg iron) tablet 325 mg PO TH Qty: 90 1RF Rx Instructions: only pramipexole [Mirapex] 1 mg tablet 2 mg PO QHS Qty: 180 3RF dulaglutide 4.5 mg/0.5 mL pen injector 4.5 mg SC .COMPLEX 90 Days Qty: 2 2RF Rx Instructions: 4.5 mg subcut every friday amiodarone 200 mg tablet 200 mg PO DAILY Qty: 30 11RF Rx Instructions: Pt no longer taking Discontinued loratadine 10 mg tablet 10 mg PO DAILY Label Comments: take 1 tablet by mouth once daily furosemide 20 mg tablet 20 mg PO DAILY Hold Instructions: Resume on 12/16/22. Label Comments: take 1 tablet by mouth once daily Rx Instructions: Take an additional 40 mg dose at 5 PM for increased leg swelling or weight gain 5 pounds in 1 week. Referrals / Follow Up: Sajan Rogers MD [Med Staff - Active Staff] - Within 2 Weeks Tosha Shrestha MD [Primary Care Provider] - Within 1 Week Disposition Disposition (needs filled in before D/C Order can be placed): Home, Self Care
--- NOTE | 2022-12-24 11:53 | DS.PCM_ITS ---
Providers Date of Admission: 12/23/22 Date of Discharge: 12/24/22 Primary Care Physician: Dr. 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 Acute on chronic diastolic congestive heart failure-patient will be placed in the observation status on PCU, he will be placed on IV Lasix, labs will be monitored #2 type 2 diabetes-patient's blood sugars will be monitored, sliding scale insul in will be administered to scale #3 chronic kidney disease stage IIIa secondary to type 2 diabetes-complicates care, medical course, recovery, and prognosis #4 history of wide QRS complex tachycardia-again I discussed antiarrhythmics with the patient's cadmium liquor maker, he recommends patient go back on amiodarone, patient is okay with this #5 obstructive sleep apnea-patient is on BiPAP while sleeping, this was written for the patient during his hospitalization #6 hyperlipidemia-patient is on a statin #7 chronic anticoagulation with Eliquis due 2 paroxysmal F-[id number]-[id number] is currently on Eliquis at the present time #8 chronic depression-patient is on Zoloft #9 paroxysmal P-xly-axmfnbo is on anticoagulation and rate limiting medication #10 BPH-patient is currently on Proscar #11 GERD-patient is on Pepcid #12 anemia of chronic kidney disease-patient's CBC will be monitored as needed Total clinical time spent by myself addressing the patient's medical issues, reviewing all of his data, and collaborating with patient's care team: 75- minutes Medications at Discharge Home Medications finasteride 5 mg tablet 5 mg PO DAILY PROSTATE #90 tabs 11/03/18 progesterone micronized 100 mg capsule 100 mg PO QAM HORMONE 10/06/22 meclizine 25 mg tablet 25 mg PO TID PRN dizziness #90 tabs 10/24/22 ergocalciferol (vitamin D2) 1,250 mcg (50,000 unit) capsule 50,000 unit PO QMONTH SUPPLEMENT #14 caps 11/29/22 ferrous sulfate 325 mg (65 mg iron) tablet 325 mg PO TH supplement #90 tabs 11/29/22 pramipexole 1 mg tablet (Mirapex) 2 mg PO QHS RLS #180 tabs 11/29/22 acetaminophen 500 mg tablet 1,000 mg PO Q8H PRN PRN Pain #30 tabs 12/03/22 nitroglycerin 0.4 mg sublingual tablet 0.4 mg sublingual Q5M PRN Cardiac/Chest Pain 30 days #30 tabs 12/03/22 sennosides 8.6 mg-docusate sodium 50 mg tablet (Stool Softener-Stimulant La xative) 2 tab PO BID #0 tabs 12/03/22 famotidine 40 mg tablet 20 mg PO DAILY reflux 12/06/22 hydralazine 50 mg tablet 25 mg PO BID blood pressure 12/07/22 insulin glargine-yfgn 100 unit/mL (3 mL) subcutaneous pen (Semglee (insulin glargine-yfgn) Pen) 30 unit subcut DAILY diabetes 12/07/22 metoprolol succinate 25 mg tablet,extended release 24 hr 12.5 mg PO DAILY BP 12/07/22 sertraline 25 mg tablet 37.5 mg PO DAILY DEPRESSION 12/07/22 dulaglutide 4.5 mg/0.5 mL subcutaneous pen injector 4.5 mg (0.5 mL) subcut .COMPLEX DM 3 months #2 mL 12/09/22 furosemide 40 mg tablet (Lasix) 60 mg PO DAILY #45 tabs 12/24/22 potassium chloride 20 mEq tablet,extended release 20 meq PO DAILY #30 tabs 05/10 amiodarone 200 mg tablet 200 mg PO DAILY #90 tabs 12/25/22 apixaban 2.5 mg tablet (Eliquis) 2.5 mg PO BID #180 tabs 12/25/22 atorvastatin 10 mg tablet 10 mg PO QHS cholesterol #90 tabs 12/25/22 fluticasone propionate 50 mcg/actuation nasal spray,suspension 2 spray intranasal DAILY #16 grams 12/26/22 Hospital Course Operations None Procedures None Summary of Care Provided Minutes Spent on Discharge: 31 Hospital Course: This 82-year-old white male presented to the emergency room at [facility] with complaints of shortness of breath over the last several days, work-up in the emergency room included a chest x-ray which indicated CHF, patient was not hypoxic on room air, beta nitric peptide was elevated. Patient was placed into observation status for acute on chronic diastolic CHF, he was given IV Lasix and his medications were reviewed. Patient did well during his hospitalization and had no untoward events. On 12/24/2022, patient was seen and examined: On examination he appeared in good health and spirits. Vital signs as documented. Skin warm and dry and without overt rashes. Neck without JVD, neck was supple, trachea midline, thyroid was normal. Lungs clear bilaterally, normal air movement was noted. Heart exam notable for regular rhythm, normal sounds and absence of murmurs, rubs or gallops. Abdomen unremarkable and without evidence of organomegaly, masses, or abdominal aortic enlargement. Bowel sounds are present, abdomen is not distended. Extremities nonedematous, no cyanosis was noted, no clubbing was noted. Neuro: Cranial nerves II through XII are grossly intact, no focal motor deficits were noted, sensation to light touch and pinprick intact, motor exam 5/5 throughout. Psych: Patient is alert and oriented x3, he does not appear anxious or depressed, he does not appear agitated. Patient was felt to be stable for discharge home on 12/24/2022. Additional note, I talked with the patient's cadmium liquor maker (Dr. Rogers) by phone, he recommended the patient stay on amiodarone 200 mg daily-patient had stopped this medication because he did not feel well at home, I educated the patient as to the need for taking this medication and he agreed to go back on it. Weight / BMI Weight Weight: 127.097 kg Body Mass Index (BMI) 38.0 ABG / Lab / Microbiology Data Result Diagrams: 12/24/22 05:45 12/24/22 05:45 Laboratory: Laboratory Results - last 24 hr 12/23/22 12:00: Urine Color Yellow, Urine Clarity Clear, Urine pH 6.0, Ur Specific [place] 1.010, Urine Protein 30 H, Urine Glucose (UA) Normal, Urine Ketones Negative, Urine Occult Blood Negative, Urine Nitrite Negative, Urine Bilirubin Negative, Urine Urobilinogen Normal, Ur Leukocyte Esterase 500 H, Urine RBC 0 SEEN, Urine WBC 0-5 SEEN, Ur Squamous Epith Cells 0 SEEN, Urine Bacteria 0 SEEN, Urine Mucus 0 SEEN 12/23/22 16:22: POC Glucose 181 H 12/23/22 22:04: POC Glucose 101 12/24/22 05:45: Sodium 143, Potassium 4.1, Chloride 110 H, Carbon Dioxide 28.0, Anion Gap 5, BUN 24 H, Creatinine 1.44 H, Estim Creat Clear Calc 42.66, Est GFR (MDRD) Af Amer 60, Est GFR (MDRD) Non-Af 50 L, BUN/Creatinine Ratio 16.7, Glucose 111 H, Calcium 8.7 12/24/22 05:45: WBC 7.3, RBC 3.14 L, Hgb 9.2 L, Hct 30.6 L, MCV 97.5 H, MCH 29.3, MCHC 30.1 L, RDW Std Deviation 49.2 H, RDW Coeff of Flavio 13.9, Plt Count 188, MPV 9.6, Immature Gran % (Auto) 0.400, Neut % (Auto) 71.4 H, Lymph % (Auto) 15.2 L, Keith % (Auto) 8.9, Eos % (Auto) 3.4, Baso % (Auto) 0.7, Absolute Neuts (auto) 5.2, Absolute Lymphs (auto) 1.11, Nucleated RBC % 0 12/24/22 07:34: POC Glucose 109 H 12/24/22 11:01: POC Glucose 169 H D/C Instructions Discharge Diet: 1800 Calorie Control Diet Weight Bearing Status: Full weight bearing Meaningful Use Info Meaningful Use Diagnoses (Choose all that apply): CHF CHF MARIJA/ARB ordered at discharge?: No Reason MARIJA/ARB not ordered?: Not indicated Documented LVEF (%): 65 Discharge Plan Admission Admit Date/Time: 12/23/22 13:27 Primary Reason for Your Visit: CHF Attending Provider: Caden Hernandez Primary Care Provider: Tosha Shrestha Discharge Orders/Prescriptions Prescriptions: New furosemide [Lasix] 40 mg tablet 60 mg PO DAILY Qty: 45 0RF potassium chloride 20 mEq tablet extended release 20 meq PO DAILY Qty: 30 0RF Continued meclizine 25 mg tablet 25 mg PO TID PRN (Reason: dizziness) Qty: 90 0RF famotidine 40 mg tablet 20 mg PO DAILY progesterone micronized 100 mg capsule 100 mg PO QAM nitroglycerin 0.4 mg Tablet, Sublingual 0.4 mg sublingual Q5M PRN (Reason: Cardiac/Chest Pain) 30 Days Qty: 30 0RF sennosides-docusate sodium [Stool Softener-Stimulant Laxat] 8.6-50 mg Tablet 2 tab PO BID Qty: 0 0RF acetaminophen 500 mg Tablet 1,000 mg PO Q8H PRN PRN (Reason: Pain) Qty: 30 0RF insulin glargine-yfgn [Semglee(insulin glarg-yfgn)Pen] 100 unit/mL (3 mL) insu basia pen 30 unit SUBCUT DAILY Label Comments: inject 28 units subcutaneously every morning sertraline 25 mg tablet 37.5 mg PO DAILY hydralazine 50 mg tablet 25 mg PO BID metoprolol succinate 25 mg tablet extended release 24 hr 12.5 mg PO DAILY finasteride 5 mg tablet 5 mg PO DAILY Qty: 90 3RF ergocalciferol (vitamin D2) 1,250 mcg (50,000 unit) capsule 50,000 unit PO QMONTH Qty: 14 1RF ferrous sulfate 325 mg (65 mg iron) tablet 325 mg PO Qty: 90 1RF Rx Instructions: only pramipexole [Mirapex] 1 mg tablet 2 mg PO QHS Qty: 180 3RF dulaglutide 4.5 mg/0.5 mL pen injector 4.5 mg SC .COMPLEX 90 Days Qty: 2 2RF Rx Instructions: 4.5 mg subcut every friday Discontinued loratadine 10 mg tablet 10 mg PO DAILY Label Comments: take 1 tablet by mouth once daily furosemide 20 mg tablet 20 mg PO DAILY Hold Instructions: Resume on 12/16/22. Label Comments: take 1 tablet by mouth once daily Rx Instructions: Take an additional 40 mg dose at 5 PM for increased leg swelling or weight gain 5 pounds in 1 week. No Action Eliquis 2.5 mg tablet 2.5 mg PO BID Qty: 180 3RF amiodarone 200 mg tablet 200 mg PO DAILY Qty: 90 3RF Rx Instructions: Pt no longer taking atorvastatin 10 mg tablet 10 mg PO QHS Qty: 90 3RF fluticasone propionate 50 mcg/actuation spray,suspension 2 spray intranasal DAILY Qty: 16 3RF Referrals / Follow Up: Sajan Rogers MD [Med Staff - Active Staff] - Within 2 Weeks Oleghe,Efewongbe, MD [Primary Care Provider] - Within 1 Week Disposition Disposition (needs filled in before D/C Order can be placed): Home, Self Care Charges/Coding Visit Charges Inpatient E&M: 60808 Disch Hosp >30min
--- NOTE | 2022-12-24 12:30 | PHA.DC.MC ---
Pharmacy Service has performed discharge medication reconciliation and counseling for this patient. 1. POTASSIUM CHLORIDE 20MEQ PO DAILY The patient's discharge medication list was reviewed for discrepancies and discrepancies were resolved. Home Medications finasteride 5 mg tablet 5 mg PO DAILY PROSTATE #90 tabs 11/03/18 progesterone micronized 100 mg capsule 100 mg PO QAM HORMONE 10/06/22 meclizine 25 mg tablet 25 mg PO TID PRN dizziness #90 tabs 10/24/22 ergocalciferol (vitamin D2) 1,250 mcg (50,000 unit) capsule 50,000 unit PO QMONTH SUPPLEMENT #14 caps 11/29/22 ferrous sulfate 325 mg (65 mg iron) tablet 325 mg PO TH supplement #90 tabs 11/29/22 pramipexole 1 mg tablet (Mirapex) 2 mg PO QHS RLS #180 tabs 11/29/22 acetaminophen 500 mg tablet 1,000 mg PO Q8H PRN PRN Pain #30 tabs 12/03/22 atorvastatin 10 mg tablet 10 mg PO QHS cholesterol 12/03/22 nitroglycerin 0.4 mg sublingual tablet 0.4 mg sublingual Q5M PRN Cardiac/Chest Pain 30 days #30 tabs 12/03/22 sennosides 8.6 mg-docusate sodium 50 mg tablet (Stool Softener-Stimulant Laxative) 2 tab PO BID #0 tabs 12/03/22 famotidine 40 mg tablet 20 mg PO DAILY 12/06/22 hydralazine 50 mg tablet 25 mg PO BID 12/07/22 insulin glargine-yfgn 100 unit/mL (3 mL) subcutaneous pen (Semglee (insulin glargine-yfgn) Pen) 30 unit subcut DAILY 12/07/22 metoprolol succinate 25 mg tablet,extended release 24 hr 12.5 mg PO DAILY BP 12/07/22 sertraline 25 mg tablet 37.5 mg PO DAILY DEPRESSION 12/07/22 dulaglutide 4.5 mg/0.5 mL subcutaneous pen injector 4.5 mg (0.5 mL) subcut .COMPLEX DM 3 months #2 mL 12/09/22 apixaban 2.5 mg tablet (Eliquis) 2.5 mg PO BID #60 tabs 12/13/22 amiodarone 200 mg tablet 200 mg PO DAILY #30 tabs 12/19/22 furosemide 40 mg tablet (Lasix) 60 mg PO DAILY #45 tabs 12/24/22 potassium chloride 20 mEq tablet,extended release 20 meq PO DAILY #30 tabs 12/24/22 The patient was counseled on the following discharge medications and changes in medications for homegoing were reviewed. The Reason for Use, instructions for use, and potential side effects were reviewed for all new medications. The patient's questions regarding all of their medications were answered. The patient was able to verbally demonstrate an understanding of their discharge medications.
--- NOTE | 2022-12-24 14:34 | CHAPLAIN ---
Type of Pastoral Visit _x__ Initial Visit ___ Follow-up Visit ___ On-call Visit ___ General Patient Visit ___ Spiritual Assessment ___ Family Conference ___ Bereavement ___ Rapid Response ___ Code Blue ___ Other (describe below) Pastoral Care Referral From _x__ Patient ___ Family ___ Nurse ___ Physician ___ Western Philosophy Professor ___ Behaviorist ___ Other (describe below) Sacrament/Intervention _x__ Active listening ___ Anointing ___ Moravian ___ Bereavement ___ Communion ___ Ariadna exploration ___ ___ Life review _x__ Prayer ___ Reconciliation ___ Sacrament of Sick _x__ Supportive presence ___ Wedding ___ Other (describe below) Pastoral Comments patient is a repeat admission and is seen often; pt states that he doesn't understand who to call or how to get medical attention and feels bad for coming to the hospital; spouse is with him and she verbalizes the same questions about who to call; pt admits frustrations and welcomes prayers and calming presence
== END 2022-12-24 11:53 | disposition home or self-care (01) ==
LOC: ED 12:54 → PCU 13:09
PROVIDERS: Admitting Provider Internal Medicine; Emergency Provider Emergency Medicine; PCP Internal Medicine; Visit Provider Internal Medicine
DX: I13.0 Hypertensive heart and chronic kidney disease with heart failure and stage 1 through stage 4 chronic kidney disease, or unspecified chronic kidney disease (principal); Z89.422 Acquired absence of other left toe(s); I50.33 Acute on chronic diastolic (congestive) heart failure; E11.22 Type 2 diabetes mellitus with diabetic chronic kidney disease; E11.42 Type 2 diabetes mellitus with diabetic polyneuropathy; I47.29 Other ventricular tachycardia; I48.0 Paroxysmal atrial fibrillation; N18.31 Chronic kidney disease, stage 3a; R53.1 Weakness; I25.10 Atherosclerotic heart disease of native coronary artery without angina pectoris; E78.5 Hyperlipidemia, unspecified; G47.33 Obstructive sleep apnea (adult) (pediatric); Z79.01 Long term (current) use of anticoagulants; F32.A Depression, unspecified; N40.0 Benign prostatic hyperplasia without lower urinary tract symptoms; K21.9 Gastro-esophageal reflux disease without esophagitis; D63.1 Anemia in chronic kidney disease; Z79.899 Other long term (current) drug therapy; F41.9 Anxiety disorder, unspecified
CPT/HCPCS: 36415; 71045; 80048; 80053; 81001; 82962; 83880; 84484; 85025; 93005; 94002; 94762; 96374; 96375; 96376; 97161; 97166; 99221; 99285; A4216; G0378; J1940; J2405

== ENCOUNTER → 2023-02-04 | Outpatient (CLI) | payer MEDICARE, BC, SELFPAY ==
[2023-02-04 15:28] LABS: Absolute Lymphocyte Count 1.25 X10^3/uL (0.83-4.51); Absolute Neutrophil Count 4.8 X10^3/uL (2.0-7.7); Basophil# 0.04 X10^3/uL; Basophil% 0.6 % (0-1); Eosinophil# 0.13 X10^3/uL; Eosinophils% 1.9 % (0-5); Hematocrit 36.2 % (40-54); Hemoglobin 11.4 g/dL (13.0-16.5); Lymphocyte # 1.25 X10^3/ul (0.83-4.51); Lymphocyte % 18.1 % (19-41); Mean Corp Hgb Conc 31.5 g/dL (32-36); Mean Corpuscular Hgb 29.4 pg (27.0-32.0); Mean Corpuscular Volume 93.3 fL (80-94); Mean Platelet Vol. 10.3 fl (6.2-12.0); Monocyte# 0.61 X10^3/uL; Monocyte% 8.9 % (0-10); NRBC Flagged by Analyzer 0 % (0-5); Neutrophil # 4.83 X10^3/uL (2.7-7.7); Neutrophil % 70.1 % (47-70); Platelet Count 190 K/mm3 (150-450); RBC Distribution Width CV 14.4 % (11.6-14.6); RBC Distribution Width SD 48.7 fl (35.1-43.9); Red Blood Count 3.88 M/mm3 (4.6-6.2); White Blood Count 6.9 K/mm3 (4.4-11.0)
[2023-02-04 15:47] LABS: Anion Gap 7 (5-15); BUN 52 mg/dL (7-18); BUN/Creat Ratio 29.2 RATIO (10-20); Calcium,Total 9.3 mg/dL (8.5-10.1); Chloride 111 mmol/L (98-107); Creatinine, Serum 1.78 mg/dL (0.70-1.30); EST Glomerular Filtration Rate 39 mL/min (>60); Est Glom Filt Rate - Afr Amer 47 mL/min (>60); Glucose 181 mg/dL (74-106); Potassium 4.9 mmol/L (3.5-5.1); Sodium Level 140 mmol/L (136-145); Thyroid Stim Hormone (TSH) 0.99 uIU/mL (0.358-3.74)
== END | disposition home or self-care (01) ==
LOC: BIMLAB 13:56
PROVIDERS: PCP Internal Medicine; Referring Provider Nurse Practitioner Family; Visit Provider Nurse Practitioner Family
DX: I50.9 Heart failure, unspecified (principal); R06.02 Shortness of breath; R60.9 Edema, unspecified
CPT/HCPCS: 36415; 80048; 83880; 84443; 85025

== ENCOUNTER → 2023-02-10 | Outpatient (CLI) | payer MEDICARE, BC, SELFPAY ==
[2023-02-10 15:31] LABS: Absolute Lymphocyte Count 1.47 X10^3/uL (0.83-4.51); Basophil# 0.06 X10^3/uL; Basophil% 0.8 % (0-1); Eosinophil# 0.16 X10^3/uL; Eosinophils% 2.1 % (0-5); Hematocrit 40.3 % (40-54); Hemoglobin 11.7 g/dL (13.0-16.5); Lymphocyte # 1.47 X10^3/ul (0.83-4.51); Lymphocyte % 19.6 % (19-41); Mean Corpuscular Hgb 28.6 pg (27.0-32.0); Mean Corpuscular Volume 98.5 fL (80-94); Mean Platelet Vol. 9.8 fl (6.2-12.0); Monocyte# 0.75 X10^3/uL; NRBC Flagged by Analyzer 0 % (0-5); Neutrophil # 5.04 X10^3/uL (2.7-7.7); Neutrophil % 67.2 % (47-70); Platelet Count 195 K/mm3 (150-450); RBC Distribution Width CV 14.5 % (11.6-14.6); RBC Distribution Width SD 52.7 fl (35.1-43.9); Red Blood Count 4.09 M/mm3 (4.6-6.2); White Blood Count 7.5 K/mm3 (4.4-11.0)
[2023-02-10 15:53] LABS: Anion Gap 6 (5-15); BUN 54 mg/dL (7-18); BUN/Creat Ratio 26.9 RATIO (10-20); Chloride 112 mmol/L (98-107); Creatinine, Serum 2.01 mg/dL (0.70-1.30); EST Glomerular Filtration Rate 34 mL/min (>60); Est Glom Filt Rate - Afr Amer 41 mL/min (>60); Glucose 206 mg/dL (74-106); Potassium 4.8 mmol/L (3.5-5.1); Sodium Level 139 mmol/L (136-145)
[2023-02-10 16:10] LABS: Ferritin 73 ng/mL (26-388); Iron 59 ug/dL (65-175); Iron Binding Capacity,Total 334 ug/dL (250-450); PERCENT IRON SATURATION 17.7 % (15.0-55.0)
== END | disposition home or self-care (01) ==
LOC: LAB 14:33
PROVIDERS: Internal Medicine Cardiovascular Disease; Internal Medicine Hematology & Oncology; PCP Internal Medicine; Referring Provider Urology; Visit Provider Urology
DX: N40.1 Benign prostatic hyperplasia with lower urinary tract symptoms (principal); D50.0 Iron deficiency anemia secondary to blood loss (chronic)
CPT/HCPCS: 36415; 80048; 82728; 83540; 83550; 85025

== ENCOUNTER → 2023-02-19 | Outpatient (CLI) | payer MEDICARE, BC, SELFPAY | END | disposition home or self-care (01) | PROVIDERS: PCP Internal Medicine; Visit Provider Podiatrist | DX: L03.032 Cellulitis of left toe (principal) | CPT/HCPCS: 87070; 87075; 87077; 87186; 87205 ==

== ENCOUNTER 2023-04-27 16:40 | Emergency (ER) | payer MEDICARE, BC, SELFPAY ==
[2023-04-27 16:40] VITALS: BP 145/61; PULSE 70; RESP 18; TEMP 36.4; O2SAT 100; BMI 36.6
[2023-04-27 16:42] VITALS: BMI 38.2
--- NOTE | 2023-04-27 17:02 | CT_ITS ---
STUDY: CT BRAIN WITHOUT CONTRAST REASON FOR EXAM: Male, 82 years old. headache on blood thinner Individualized dose optimization techniques were used for this CT. TECHNIQUE: Transaxial CT imaging of the brain was performed without administration of intravenous contrast material. COMPARISON: 12/02/2022 FINDINGS: There are calcifications noted in the distal vertebral arteries. There are calcifications noted in the cavernous carotid arteries. This is consistent for atherosclerotic disease. Normal calvarium. Normal soft tissues. 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 There is mild cerebral atrophy with widening of the extra-axial spaces and ventricular dilatation. There are areas of decreased attenuation within the white matter tracts of the supratentorial brain, consistent with microvascular disease changes. Normal brainstem. There is mild cerebellar atrophy. There is no intracranial hemorrhage. There are no findings of an acute ischemic infarction. Degenerative changes of the mandibular condyles. ASPECTS Score for Acute Strokes: 05/27 CT/Brain/Head without Contrast IMPRESSION: There are no acute findings. Chronic involutional changes of the brain. Electronically Signed: Jorge Luis Winslow MD at 17:54 EDT ,
--- NOTE | 2023-04-27 17:02 | EKG12_ITS ---
Test Reason : WEAKNESS Blood Pressure : / mmHG Vent. Rate : 070 BPM Atrial Rate : 068 BPM P-R Int : 000 ms QRS Dur : 180 ms QT Int : 494 ms P-R-T Axes : 104 -69 096 degrees QTc Int : 533 ms Ventricular-paced rhythm ABNORMAL ECG Confirmed by SYBIL BRENNER MD ([id number]), newspaper editor LILIA BATRES ([id number]) on 05/05/2023 7:33:09 AM Referred By: KILO Confirmed By:SYBIL BRENNER MD
--- NOTE | 2023-04-27 17:04 | EX.ED.DYSGE1 ---
HPI History of Present Illness Chief Complaint: Weakness Detail of Chief Complaint: Also complaining of a headache. Informant: patient and spouse/S.O. Onset/Context/Timing Onset: Days Context: Gradual Onset Timing: Continuous Current Severity: Mild Maximum Severity: Mild Narrative Narrative: 82-year-old male extensive past medical history including CAD, CHF, anemia, diabetes, DVT on Eliquis. States that he has had a headache for about a week. Denies any fall or head trauma. No fever. Also just feels generally weak. Denies nausea, vomiting or diarrhea. Denies dysuria. Denies melena. No chest or abdominal pain. Prior similar symptoms: Yes Recent Illness/Hospitalization: No PFSH PFS Medical History (HFpEF) heart failure with preserved ejection fraction (12/12/20) Acute dyspnea Acute on chronic diastolic HF (heart failure) Acute respiratory failure with hypoxia Anemia Anemia of chronic renal failure, stage 3 (moderate) Anxiety and depression Atherosclerotic heart disease of [place] coronary artery without angina pectoris Atrial flutter Atrial flutter Atypical chest pain Back pain BMI 34.0-34.9,adult BPH (benign prostatic hyperplasia) BPPV (benign paroxysmal positional vertigo) Bradycardia Cardiac dysrhythmia Cardiology follow-up encounter CHF (congestive heart failure) CHF (congestive heart failure) CHF (congestive heart failure) De Quervain's tenosynovitis Debility Depression Dermatitis Diabetes mellitus Diabetic kidney disease Dizziness DM type 2 with diabetic peripheral neuropathy DVT (deep venous thrombosis) Dyslipidemia Dysphagia Essential (primary) hypertension Fall Flu vaccine need Fracture of great toe Gastric reflux Gout Gout flare Health care maintenance History of echocardiogram History of edema History of GI bleed History of peptic ulcer History of renal calculi History of ulceration HLD (hyperlipidemia) Injury of head and neck Iron deficiency anemia Iron deficiency anemia due to chronic blood loss Kidney hematoma (12/08/20) Left knee pain Left leg DVT Loss of equilibrium Low iron Malaise Near syncope Orthostatic hypotension MACHELLE (obstructive sleep apnea) Pain of left lower extremity Paroxysmal atrial fibrillation Paroxysmal atrial flutter Pneumonia Polypharmacy 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 Presence of cardiac pacemaker Prostate disease Psoriasis Recurrent syncope (06/19/22) Renal calculi RLS (restless legs syndrome) Sex disorder Sick sinus syndrome Suicidal ideation SVT (supraventricular tachycardia) TIA (transient ischemic attack) Type 2 diabetes mellitus with diabetic polyneuropathy Urolithiasis Venous insufficiency of both lower extremities Vertigo Walker as ambulation aid Weakness Wears glasses Home Medications finasteride 5 mg tablet 5 mg PO DAILY PROSTATE #90 tabs 11/03/18 [Rx Last Taken 12/23/22] meclizine 25 mg tablet 25 mg PO TID PRN dizziness #90 tabs 10/24/22 [Rx Last Taken 11/29/22] ergocalciferol (vitamin D2) 1,250 mcg (50,000 unit) capsule 50,000 unit PO QMONTH SUPPLEMENT #14 caps 11/29/22 [Rx Last Taken 12/16/22] ferrous sulfate 325 mg (65 mg iron) tablet 325 mg PO TH supplement #90 tabs 11/29/22 [Rx Last Taken 12/19/22] acetaminophen 500 mg tablet 1,000 mg (2 x 500 mg) PO Q8H PRN PRN Pain #30 tabs 12/03/22 [Rx Last Taken 12/23/22 06:00] nitroglycerin 0.4 mg sublingual tablet 0.4 mg sublingual Q5M PRN Cardiac/Chest Pain 30 days #30 tabs 12/03/22 [Rx Last Taken Unknown] metoprolol succinate 25 mg tablet,extended release 24 hr 12.5 mg PO DAILY BP 12/07/22 [History Last Taken 12/23/22] dulaglutide 4.5 mg/0.5 mL subcutaneous pen injector 4.5 mg (0.5 mL) subcut .COMPLEX DM 3 months #2 mL 12/09/22 [Rx Last Taken 12/20/22] furosemide 40 mg tablet (Lasix) 60 mg (1.5 x 40 mg) PO DAILY #45 tabs 12/24/22 [Rx Last Taken Unknown] apixaban 2.5 mg tablet (Eliquis) 2.5 mg PO BID #180 tabs 12/25/22 [Rx Last Taken Unknown] atorvastatin 10 mg tablet 10 mg PO QHS cholesterol #90 tabs 12/25/22 [Rx Last Taken Unknown] fluticasone propionate 50 mcg/actuation nasal spray,suspension 2 spray intranasal DAILY #16 grams 12/26/22 [Rx Last Taken Unknown] pen needle, diabetic 31 gauge x 3/16 (BD Ultra-Fine Mini Pen Needle) #100 ea 12/30/22 [Rx Last Taken Unknown] amiodarone 200 mg tablet 200 mg PO DAILY #90 tabs 01/02/23 [Rx Last Taken Unknown] potassium chloride 20 mEq tablet,extended release 20 meq PO DAILY #90 tabs 01/06/23 [Rx Last Taken Unknown] famotidine 40 mg tablet 40 mg PO DAILY reflux 02/04/23 [History Last Taken Unknown] hydralazine 50 mg tablet 75 mg PO BID blood pressure 02/04/23 [History Last Taken Unknown] pramipexole 1 mg tablet (Mirapex) 2 mg (2 x 1 mg) PO QHS RLS #180 tabs 02/04/23 [Rx Last Taken Unknown] progesterone micronized 100 mg capsule 100 mg PO QHS HORMONE #90 caps 02/04/23 [Rx Last Taken Unknown] propylene glycol 0.6 % eye drops (Systane Complete) 1 drp ophthalmic (eye) TID PRN 02/04/23 [History Last Taken Unknown] sennosides 8.6 mg-docusate sodium 50 mg tablet (Stool Softener-Stimulant Laxative) 1 tab-cap PO DAILY PRN 02/04/23 [History Last Taken Unknown] sertraline 25 mg tablet 25 mg PO DAILY DEPRESSION 02/04/23 [History Last Taken Unknown] insulin glargine-yfgn 100 unit/mL (3 mL) subcutaneous pen (Semglee (insulin glargine-yfgn) Pen) 28 unit (0.28 mL) subcut DAILY diabetes 90 days #25.2 mL 02/07/23 [Rx Last Taken Unknown] Allergy/AdvReac Type Severity Reaction Status Date / Time hydrocodone bitartrate AdvReac Severe Other Verified 04/27/23 16:42 [From Vicodin] hydroxyzine AdvReac Severe Other Verified 04/27/23 16:42 doxycycline AdvReac Intermediate Shortness Verified 04/27/23 16:42 of breath (had CHF also, may not be true allergy Family History Father Diabetes Hypertension Cancer Lung cancer Mother Hypertension CVA (cerebral vascular accident) Sister Diabetes Son Diabetes Surgical History History of cardioversion (2015) History of cataract surgery History of left heart catheterization (02/16/13) History of lithotripsy (11/2020) History of loop recorder (06/26/22) History of radiofrequency ablation procedure for cardiac arrhythmia (02/05/06) history of right knee cap fracture History of right knee surgery Status post laser lithotripsy of ureteral calculus Status post left foot surgery STENT PLACEMENT FOR KIDNEY STONE Social History household members: spouse housing: house Smoking Status: Never smoker how long ago did patient quit smokin second hand exposure: No alcohol intake: never substance use type: does not use caffeine: No what type of physical activity do you participate in: none seatbelt use: always do you feel safe at home: Yes ROS ROS ED ROS Narrative Generalized weakness. Headache. Review of Systems ROS Unobtainable: Denies due to encephalopathy Constitutional Constitutional ED: Denies chills or fever(s) Eyes Eyes: Denies blurry vision ENT ENT ED: Denies ear pain Cardiovascular Cardiovascular: Denies chest pain Respiratory/Chest Respiratory/Chest: Denies cough or dyspnea Gastrointestinal Gastrointestinal: Denies abdominal pain, diarrhea, nausea or vomiting Genitourinary Genitourinary ED: Reports urinary frequency; Denies dysuria Musculoskeletal Musculoskeletal: Denies arthralgias Integumentary Denies abscess Neurologic Neurologic: Reports headache(s) Psychiatric Psychiatric: Denies anxiety or depression Endocrine Endocrinology: Denies cold intolerance Hematologic/Lymphatic Hematologic/Lymphatic: Reports none Allergic/Immunologic Allergic/Immunologic ED: Denies mouth swelling, tongue swelling or urticaria EXAM Physical Exam Narrative Exam Narrative: 82-year-old male vital signs stable afebrile. Pulse ox 9% on room air no signs hypoxia. He does not look septic toxic or in any distress. Is no significant dehydrated. at bedside. H EENT exam unremarkable atraumatic. Pupils round react light. No facial droop. Normal speech. No trauma or tenderness. No hematoma. Neck nontender no meningismus. No lymphadenopathy. Lungs clear to auscultation bilaterally. Heart regular rate about 70 no murmur. Chest were nontender. Abdomen soft nontender. Moving all 4 extremities. Nontender no edema. Neurologically is awake and alert. Answer questions following commands. He has normal manager performance improvement strength. Normal dorsi plantarflexion. Const Vital Signs: 04/27/23 16:40 04/27/23 16:56 04/27/23 16:57 Temperature 97.6 F L Temperature Source Temporal Pulse Rate 70 Respiratory Rate 18 Respiratory Effort Short of Breath Short of Breath Respiratory Pattern Tachypnea Tachypnea Blood Pressure 145/61 H Blood Pressure Mean 89 Pulse Ox 100 Oxygen Delivery Method Room Air 04/27/23 16:57 Temperature Temperature Source Pulse Rate Respiratory Rate Respiratory Effort Short of Breath Respiratory Pattern Tachypnea Blood Pressure Blood Pressure Mean Pulse Ox Oxygen Delivery Method Room Air Positive well nourished and well developed; Negative for cachectic, contractures or unkempt General Appearance ED: well developed and NAD; Negative for unkempt, cachectic, contractures, cyanotic or diaphoretic Nutritional Appearance: Negative for cachectic HEENT Reports moist mucous membranes; Denies dry mucous membranes Negative for trauma or tenderness Mouth ED: No dry mucous membranes Mouth: No dry mucous membranes Eyes PERRL and EOMs intact bilaterally General Eye ED: Negative for pale conjunctiva, scleral icterus or other Neck no lymphadenopathy, supple and no JVD General: Negative for tenderness Lymph Lymphatic: Negative for other Chest Wall inspection of chest normal and palpation of chest normal Resp normal respiratory effort and clear to auscultation bilaterally Effort and Inspection: Negative for retractions or pain with movement Auscultation: Negative for rales, rhonchi or wheezes Cardio regular rate, regular rhythm, S1 normal heart sound, S2 normal heart sound and no murmurs Palpation: Negative for palpable S3 Rate: Negative for bradycardia Rhythm: Negative for abnormal rhythm GI normal to inspection, nondistended, normoactive bowel sounds, non-tender, non-distended and no masses Inspection: Negative for abdominal distention Auscultation: normoactive bowel sounds Palpation: soft Bladder / Kidney Exam: No other Back/Spine no CVA tenderness General Back: Negative for CVA tenderness Cervical Spine: Negative for cervical spine tenderness Thoracic Spine / Upper Back: Negative for thoracic spinal tenderness Lumbar Spine / Lower Back: Negative for lumbar spinal tenderness Extremity normal to inspection General Extremety ED: Negative for edema or tenderness General Extremity: Negative for edema Neuro oriented x3 and CN's II-XII intact bilaterally Sensorium / Orientation: alert; Negative for orientation impaired, lethargic or stuporous Motor Exam: general weakness Psych mental status grossly normal Appearance: Negative for unkempt Attitude: No agitated Mood & Affect: Negative for depressed, anxious or tearful Skin no rashes or lesions noted and no wounds General Skin Exam: Negative for jaundice Rashes: No rashes noted Trauma: Negative for abrasion Wounds: Negative for wounds noted MDM MDM MDM Narrative Medical decision making narrative: 82-year-old male with generalized weakness with extensive past medical history. Exam benign. Screening labs. Differential could be anemia, infection dehydration etc. He also has a headache and is on blood thinners Eliquis so CT of his brain will be obtained. Repeat exam patient is doing well at 8:35 PM. I went over all test results both he and his . They are comfortable with him being discharged home. Outpatient follow-up with primary care physician. History & Record Review Discussion w/independent historian: Patient and Family Additional record(s) reviewed:: Prior inpatient record, Prior outpatient record, Prior ED visit and Prior labs Lab Data Attestation: I reviewed the patient's lab results. Lab results narrative: CBC shows a white count of 4.7. H&H 10.5 and 33.6. Platelets 143. So both anemic and thrombocytopenic. Electrolytes show gap of 6. BUN and creatinine are 31 and 1.83. Glucose 115. Liver enzymes unremarkable. Urinalysis negative. No white or red cells no nitrites. CT brain showed chronic changes no acute process. Chest x-ray unremarkable. Patient has a baseline anemia and renal insufficiency. Labs: Laboratory Results - last 24 hr 04/27/23 04/27/23 17:20 18:58 WBC 4.7 RBC 3.56 L Hgb 10.5 L Hct 33.6 L MCV 94.4 H MCH 29.5 MCHC 31.3 L RDW Std Deviation 49.3 H RDW Coeff of Flavio 14.2 Plt Count 143 L MPV 9.5 Immature Gran % (Auto) 0.400 Neut % (Auto) 61.1 Lymph % (Auto) 19.9 [place] % (Auto) 15.9 H Eos % (Auto) 1.9 Baso % (Auto) 0.8 Absolute Neuts (auto) 2.9 Absolute Lymphs (auto) 0.94 Nucleated RBC % 0 Sodium 138 Potassium 4.3 Chloride 108 H Carbon Dioxide 24.0 Anion Gap 6 BUN 31 H Creatinine 1.83 H Estim Creat Clear Calc 33.57 Est GFR (MDRD) Af Amer 46 L Est GFR (MDRD) Non-Af 38 L BUN/Creatinine Ratio 16.9 Glucose 115 H Calcium 8.8 Total Bilirubin 0.80 AST 58 H ALT 71 H Alkaline Phosphatase 146 H Total Protein 7.0 Albumin 3.1 L Globulin 3.9 Albumin/Globulin Ratio 0.8 L Urine Color Yellow Urine Clarity Clear Urine pH 6.0 Ur Specific [place] 1.010 Urine Protein 15 H Urine Glucose (UA) Normal Urine Ketones Negative Urine Occult Blood Negative Urine Nitrite Negative Urine Bilirubin Negative Urine Urobilinogen Normal Ur Leukocyte Esterase Negative Urine RBC 0 SEEN Urine WBC 0 SEEN Ur Squamous Epith Cells 0 SEEN Urine Bacteria 0 SEEN Urine Mucus 0 SEEN Radiography Chest X-Ray - ED: 1 View, Read by ED Physician, Read by Radiologist, Heart, Lungs, Mediastinum, Bony Structures, No Acute Disease and Chronic Changes Diagnostic Testing: Clinical Impression(s) from Imaging Studies Brain CT 04/27/23 17:02 IMPRESSION: There are no acute findings. Chronic involutional changes of the brain. Electronically Signed: Jorge Luis Winslow MD at 17:54 EDT , Chest X-Ray 04/27/23 17:32 IMPRESSION: There are no acute findings. Electronically Signed: Jorge Luis Winslow MD at 17:57 EDT , Chest x-ray, portable, single view shows no acute abnormality. Left-sided pacemaker defibrillator. Interpreted by myself and the radiologist. Rhythm Strip Rhythm Strip: Paced Rate: 70 Ectopy: None EKG Initial EKG: Attestation: I personally reviewed and interpreted this EKG as follows: Interpretation: No Acute Injury Pattern and Paced Comments: Paced at 70. Discharge Plan Triage Chief Complaint: Weakness ED Provider: Mehul Talley Dx/Rx/DC Orders Clinical Impression: History of renal insufficiency, Anemia, Generalized weakness, Chronic anticoagulation, History of diabetes mellitus Instructions: ED Weakness (Uncertain Cause) Prescriptions: No Action meclizine 25 mg tablet 25 mg PO TID PRN (Reason: dizziness) Qty: 90 0RF sennosides-docusate sodium [Stool Softener-Stimulant Laxat] 8.6-50 mg tablet 1 tab-cap PO DAILY PRN Systane Complete 0.6 % drops 1 drp ophthalmic (eye) TID PRN progesterone micronized 100 mg capsule 100 mg PO QHS Qty: 90 0RF pramipexole [Mirapex] 1 mg tablet 2 mg PO QHS Qty: 180 3RF famotidine 40 mg tablet 40 mg PO DAILY nitroglycerin 0.4 mg Tablet, Sublingual 0.4 mg sublingual Q5M PRN (Reason: Cardiac/Chest Pain) 30 Days Qty: 30 0RF acetaminophen 500 mg Tablet 1,000 mg PO Q8H PRN PRN (Reason: Pain) Qty: 30 0RF metoprolol succinate 25 mg tablet extended release 24 hr 12.5 mg PO DAILY hydralazine 50 mg tablet 75 mg PO BID sertraline 25 mg tablet 25 mg PO DAILY furosemide [Lasix] 40 mg tablet 60 mg PO DAILY Qty: 45 0RF finasteride 5 mg tablet 5 mg PO DAILY Qty: 90 3RF ergocalciferol (vitamin D2) 1,250 mcg (50,000 unit) capsule 50,000 unit PO QMONTH Qty: 14 1RF ferrous sulfate 325 mg (65 mg iron) tablet 325 mg PO TH Qty: 90 1RF Rx Instructions: only dulaglutide 4.5 mg/0.5 mL pen injector 4.5 mg SC .COMPLEX 90 Days Qty: 2 2RF Rx Instructions: 4.5 mg subcut every friday Eliquis 2.5 mg tablet 2.5 mg PO BID Qty: 180 3RF atorvastatin 10 mg tablet 10 mg PO QHS Qty: 90 3RF fluticasone propionate 50 mcg/actuation spray,suspension 2 spray intranasal DAILY Qty: 16 3RF (DME) pen needle, diabetic [BD Ultra-Fine Mini Pen Needle] 31 gauge x 16 needle See Rx Instructions .Route Qty: 100 4RF Rx Instructions: As directed amiodarone 200 mg tablet 200 mg PO DAILY Qty: 90 3RF potassium chloride 20 mEq tablet extended release 20 meq PO DAILY Qty: 90 3RF insulin glargine-yfgn [Semglee(insulin glarg-yfgn)Pen] 100 unit/mL (3 mL) insulin pen 28 unit SUBCUT DAILY 90 Days Qty: 25.2 1RF Primary Care Provider: Tosha Shrestha Referrals: Tosha Shrestha MD [Primary Care Provider] - 3-5 Days if not improving Activity Restrictions/Additional Instructions: Plenty of fluids and rest. Your labs today were your normal. You are chronically anemic but it is around your baseline. Your kidney function was actually better than your baseline. Call and follow-up your primary care physician if not improving or return if feeling worse. Disposition Disposition: Home, Self Care
[2023-04-27 17:26] LABS: Absolute Lymphocyte Count 0.94 X10^3/uL (0.83-4.51); Absolute Neutrophil Count 2.9 X10^3/uL (2.0-7.7); Basophil# 0.04 X10^3/uL; Basophil% 0.8 % (0-1); Eosinophil# 0.09 X10^3/uL; Eosinophils% 1.9 % (0-5); Hematocrit 33.6 % (40-54); Hemoglobin 10.5 g/dL (13.0-16.5); Lymphocyte # 0.94 X10^3/ul (0.83-4.51); Lymphocyte % 19.9 % (19-41); Mean Corp Hgb Conc 31.3 g/dL (32-36); Mean Corpuscular Hgb 29.5 pg (27.0-32.0); Mean Corpuscular Volume 94.4 fL (80-94); Mean Platelet Vol. 9.5 fl (6.2-12.0); Monocyte# 0.75 X10^3/uL; Monocyte% 15.9 % (0-10); NRBC Flagged by Analyzer 0 % (0-5); Neutrophil # 2.88 X10^3/uL (2.7-7.7); Neutrophil % 61.1 % (47-70); Platelet Count 143 K/mm3 (150-450); RBC Distribution Width CV 14.2 % (11.6-14.6); RBC Distribution Width SD 49.3 fl (35.1-43.9); Red Blood Count 3.56 M/mm3 (4.6-6.2); White Blood Count 4.7 K/mm3 (4.4-11.0)
--- NOTE | 2023-04-27 17:32 | RAD_ITS ---
STUDY: XR Chest 1 View 04/27/2023 5:29 PM REASON FOR EXAM: Male, 82 years old. weakness COMPARISON: 12/23/2022 TECHNIQUE: XR Chest 1 View FINDINGS: There is no demonstrated pleural abnormality. There is a left sided pacemaker batterypack. Enlarged heart size. Normal mediastinum. Normal lakhwinder. Prominent appearing increased interstitial lung markings. Normal visualized pulmonary arteries. There is atherosclerotic calcification of the aortic arch with tortuosity. There are diffuse degenerative changes of the visualized thoracic spine. There is degenerative osteoarthritis of the bilateral shoulders. There are no acute findings of the upper abdomen. RAD/Chest 1 View (Portable) IMPRESSION: There are no acute findings. Electronically Signed: Jorge Luis Winslow MD at 17:57 EDT ,
[2023-04-27 17:42] LABS: ALB/GLOB Ratio 0.8 RATIO (0.9-2.4); AST(SGOT) 58 U/L (15-37); Alanine Aminotransfer ALT/SGPT 71 U/L (16-61); Albumin, Serum 3.1 g/dL (3.2-5.0); Alkaline Phosphatase 146 U/L (45-117); Anion Gap 6 (5-15); BUN 31 mg/dL (7-18); BUN/Creat Ratio 16.9 RATIO (10-20); Calcium,Total 8.8 mg/dL (8.5-10.1); Chloride 108 mmol/L (98-107); Creatinine, Serum 1.83 mg/dL (0.70-1.30); EST Glomerular Filtration Rate 38 mL/min (>60); Est Glom Filt Rate - Afr Amer 46 mL/min (>60); Estimated Creatinine Clearance 33.57 ml/min; Globulin 3.9 g/dL (2.2-4.2); Glucose 115 mg/dL (74-106); Potassium 4.3 mmol/L (3.5-5.1); Sodium Level 138 mmol/L (136-145)
[2023-04-27 18:40] VITALS: BP 145/60; PULSE 70; RESP 15; O2SAT 95
[2023-04-27 19:04] LABS: Bacteria 0 SEEN /hpf (None Seen); Mucous, Urine 0 SEEN /hpf (<or=2+); Red Blood Cells-Urine 0 SEEN /hpf (0-5); Squamous Epithelial Cells - UA 0 SEEN /hpf (0-5); White Blood Cells 0 SEEN /hpf (0-5)
[2023-04-27 19:06] LABS: Color, Urine Yellow (Yellow); Glucose, Dipstick Normal (Normal); Ketone-Dipstick Negative (Negative); Leukocyte Esterase-Dipstick Negative /ul (Negative); Nitrite-Dipstick Negative (Negative); Occult Blood-Urine Negative /ul (Negative); Protein-Dipstick 15 mg/dl (Negative); Urine Bilirubin Dipstick Negative (Negative); Urine Clarity Clear (Clear); Urine Urobilinogen Normal (Normal)
[2023-04-27 20:40] VITALS: BP 132/60; PULSE 70; RESP 14; O2SAT 95
== END 2023-04-27 21:10 | disposition home or self-care (01) ==
PROVIDERS: Emergency Provider Emergency Medicine; PCP Internal Medicine; Visit Provider Emergency Medicine
DX: D64.9 Anemia, unspecified (principal); I50.32 Chronic diastolic (congestive) heart failure; I48.0 Paroxysmal atrial fibrillation; R53.1 Weakness; I25.10 Atherosclerotic heart disease of native coronary artery without angina pectoris; G47.33 Obstructive sleep apnea (adult) (pediatric); Z79.01 Long term (current) use of anticoagulants; Z86.718 Personal history of other venous thrombosis and embolism; Z86.73 Personal history of transient ischemic attack (TIA), and cerebral infarction without residual deficits
CPT/HCPCS: 70450; 71045; 80053; 81001; 85025; 93005; 99285; A4216

== ENCOUNTER 2023-05-04 09:00 | Inpatient (IN) | payer MEDICARE, BC, SELFPAY ==
[2023-05-04] VITALS (7 sets, daily range): BP systolic 140–149; BP diastolic 53–101; PULSE 70–71; RESP 16–20; TEMP 36.6–36.7; O2SAT 96–100; BMI 36.1
--- NOTE | 2023-05-04 10:09 | EKG12_ITS ---
Test Reason : DIZZINESS Blood Pressure : / mmHG Vent. Rate : 070 BPM Atrial Rate : 049 BPM P-R Int : 000 ms QRS Dur : 162 ms QT Int : 500 ms P-R-T Axes : 000 -66 096 degrees QTc Int : 540 ms Ventricular-paced rhythm Abnormal ECG Confirmed by SYBIL BRENNER MD ([id number]), loan expeditor LILIA BATRES ([id number]) on 05/06/2023 1:59:40 PM Referred By: Confirmed By:SYBIL BRENNER MD
--- NOTE | 2023-05-04 10:09 | RAD_ITS ---
STUDY: X-RAY CHEST REASON FOR EXAM: Male, 82 years old. shortness of breath TECHNIQUE: 2 AP portable views COMPARISON: 04/27/2023 FINDINGS: EKG leads overlie the chest. Stable appearance of a left subclavian pacemaker The lungs are clear and expanded. There is no demonstrated pleural abnormality. Normal size heart. Normal mediastinum and lakhwinder. Normal visualized pulmonary arteries. Normal visualized aortic arch and descending thoracic aorta. Normal visualized thoracic spine. Normal visualized ribs, clavicles, and shoulders. There is no demonstrated abnormality of the visualized soft tissue structures of the upper abdomen. RAD/Chest 1 View (Portable) IMPRESSION: No acute pulmonary process Electronically Signed: Stewart Ramirez MD at 10:57 EDT ,
--- NOTE | 2023-05-04 10:11 | EX.ED.DYSGE1 ---
HPI History of Present Illness Chief Complaint: Dizziness Narrative Narrative: 82-year-old male multiple medical problems including obstructive sleep apnea, diabetes, chronic anemia, chronic dizziness, presents with multiple somatic complaints ranging from increased dizziness and generalized weakness. He denies any chest pain but states on occasion is short of breath. He states that on Friday he had black stool a few times, and once yesterday. He had called his primary care provider on Friday who told him that he needed to be evaluated. He and his state that he has become increasingly more weak when he tried to get out of bed and ambulate today. They have been through rehab and home health care in the past few months ago. Additionally, they state that they were seen last week, and everything checked out. He presents with increasing fatigue and generalized weakness. He denies any dysuria or hematuria. No nausea or vomiting. No hematemesis. [facility] Medical History (Updated 05/04/23 @ 13:32 by Choco Salazar MD) (HFpEF) heart failure with preserved ejection fraction (12/12/20) Acute dyspnea Acute on chronic diastolic HF (heart failure) Acute respiratory failure with hypoxia Anemia Anemia of chronic renal failure, stage 3 (moderate) Anxiety and depression Atherosclerotic heart disease of [place] coronary artery without angina pectoris Atrial flutter Atrial flutter Atypical chest pain Back pain BMI 34.0-34.9,adult BPH (benign prostatic hyperplasia) BPPV (benign paroxysmal positional vertigo) Bradycardia Cardiac dysrhythmia Cardiology follow-up encounter CHF (congestive heart failure) CHF (congestive heart failure) CHF (congestive heart failure) De Quervain's tenosynovitis Debility Depression Dermatitis Diabetes mellitus Diabetic kidney disease Dizziness DM type 2 with diabetic peripheral neuropathy DVT (deep venous thrombosis) Dyslipidemia Dysphagia Essential (primary) hypertension Fall Flu vaccine need Fracture of great toe Gastric reflux Gout Gout flare Health care maintenance History of echocardiogram History of edema History of GI bleed History of peptic ulcer History of renal calculi History of ulceration HLD (hyperlipidemia) Injury of head and neck Iron deficiency anemia Iron deficiency anemia due to chronic blood loss Kidney hematoma (12/08/20) Left knee pain Left leg DVT Loss of equilibrium Low iron Malaise Near syncope Orthostatic hypotension MACHELLE (obstructive sleep apnea) Pain of left lower extremity Paroxysmal atrial fibrillation Paroxysmal atrial flutter Pneumonia Polypharmacy 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 Presence of cardiac pacemaker Prostate disease Psoriasis Recurrent syncope (06/19/22) Renal calculi RLS (restless legs syndrome) Sex disorder Sick sinus syndrome Suicidal ideation SVT (supraventricular tachycardia) TIA (transient ischemic attack) Type 2 diabetes mellitus with diabetic polyneuropathy Urolithiasis Venous insufficiency of both lower extremities Vertigo Walker as ambulation aid Weakness Wears glasses Home Medications finasteride 5 mg tablet 5 mg PO DAILY PROSTATE #90 tabs 11/03/18 [Rx Last Taken 12/23/22] meclizine 25 mg tablet 25 mg PO TID PRN dizziness #90 tabs 10/24/22 [Rx Last Taken 11/29/22] ergocalciferol (vitamin D2) 1,250 mcg (50,000 unit) capsule 50,000 unit PO QMONTH SUPPLEMENT #14 caps 11/29/22 [Rx Last Taken 12/16/22] ferrous sulfate 325 mg (65 mg iron) tablet 325 mg PO TH supplement #90 tabs 11/29/22 [Rx Last Taken 12/19/22] acetaminophen 500 mg tablet 1,000 mg (2 x 500 mg) PO Q8H PRN PRN Pain #30 tabs 12/03/22 [Rx Last Taken 12/23/22 06:00] nitroglycerin 0.4 mg sublingual tablet 0.4 mg sublingual Q5M PRN Cardiac/Chest Pain 30 days #30 tabs 12/03/22 [Rx Last Taken Unknown] metoprolol succinate 25 mg tablet,extended release 24 hr 12.5 mg PO DAILY BP 12/07/22 [History Last Taken 12/23/22] dulaglutide 4.5 mg/0.5 mL subcutaneous pen injector 4.5 mg (0.5 mL) subcut .COMPLEX DM 3 months #2 mL 12/09/22 [Rx Last Taken 12/20/22] furosemide 40 mg tablet (Lasix) 60 mg (1.5 x 40 mg) PO DAILY #45 tabs 12/24/22 [Rx Last Taken Unknown] apixaban 2.5 mg tablet (Eliquis) 2.5 mg PO BID #180 tabs 12/25/22 [Rx Last Taken Unknown] atorvastatin 10 mg tablet 10 mg PO QHS cholesterol #90 tabs 12/25/22 [Rx Last Taken Unknown] fluticasone propionate 50 mcg/actuation nasal spray,suspension 2 spray intranasal DAILY #16 grams 12/26/22 [Rx Last Taken Unknown] pen needle, diabetic 31 gauge x 3/16 (BD Ultra-Fine Mini Pen Needle) #100 ea 12/30/22 [Rx Last Taken Unknown] amiodarone 200 mg tablet 200 mg PO DAILY #90 tabs 01/02/23 [Rx Last Taken Unknown] potassium chloride 20 mEq tablet,extended release 20 meq PO DAILY #90 tabs 01/06/23 [Rx Last Taken Unknown] famotidine 40 mg tablet 40 mg PO DAILY reflux 02/04/23 [History Last Taken Unknown] hydralazine 50 mg tablet 75 mg PO BID blood pressure 02/04/23 [History Last Taken Unknown] pramipexole 1 mg tablet (Mirapex) 2 mg (2 x 1 mg) PO QHS RLS #180 tabs 02/04/23 [Rx Last Taken Unknown] progesterone micronized 100 mg capsule 100 mg PO QHS HORMONE #90 caps 02/04/23 [Rx Last Taken Unknown] propylene glycol 0.6 % eye drops (Systane Complete) 1 drp ophthalmic (eye) TID PRN 02/04/23 [History Last Taken Unknown] sennosides 8.6 mg-docusate sodium 50 mg tablet (Stool Softener-Stimulant Laxative) 1 tab-cap PO DAILY PRN 02/04/23 [History Last Taken Unknown] sertraline 25 mg tablet 25 mg PO DAILY DEPRESSION 02/04/23 [History Last Taken Unknown] insulin glargine-yfgn 100 unit/mL (3 mL) subcutaneous pen (Semglee (insulin glargine-yfgn) Pen) 28 unit (0.28 mL) subcut DAILY diabetes 90 days #25.2 mL 02/07/23 [Rx Last Taken Unknown] Allergy/AdvReac Type Severity Reaction Status Date / Time hydrocodone bitartrate AdvReac Severe Other Verified 05/04/23 09:04 [From Vicodin] hydroxyzine AdvReac Severe Other Verified 05/04/23 09:04 doxycycline AdvReac Intermediate Shortness Verified 05/04/23 09:04 of breath (had CHF also, may not be true allergy Family History Father Diabetes Hypertension Cancer Lung cancer Mother Hypertension CVA (cerebral vascular accident) Sister Diabetes Son Diabetes Surgical History History of cardioversion (2015) History of cataract surgery History of left heart catheterization (02/16/13) History of lithotripsy (11/2020) History of loop recorder (06/26/22) History of radiofrequency ablation procedure for cardiac arrhythmia (02/05/06) history of right knee cap fracture History of right knee surgery Status post laser lithotripsy of ureteral calculus Status post left foot surgery STENT PLACEMENT FOR KIDNEY STONE Social History household members: spouse housing: house Smoking Status: Never smoker how long ago did patient quit smokin second hand exposure: No alcohol intake: never substance use type: does not use caffeine: No what type of physical activity do you participate in: none seatbelt use: always do you feel safe at home: Yes ROS ROS ED ROS Narrative Constitutional: No fever, no chills. Fatigue. Generalized weakness. HEENT: No sore throat. No neck pain. No loss of vision. No rhinorrhea. Cardiovascular: No chest pain. No palpitations. No pedal edema. Respiratory: No cough, no shortness of breath. Abdominal: No abdominal pain. No nausea. No vomiting. No hematemesis. Positive black stool on Friday, 2 days ago, and once yesterday. Genitourinary: No dysuria. No hematuria. Musculoskeletal: No myalgias. No arthralgias. Neurologic: No headaches. No dizziness. No lightheadedness. Skin: No rash. No change in color. Psychiatric: No depression. No anxiety. EXAM Physical Exam Narrative Exam Narrative: Afebrile. Vital signs noted. HEENT: Normocephalic. Atraumatic. PERRL, EOMI. Neck soft and supple. No point tenderness or step off. Cardiovascular: Regular rate and rhythm. No murmurs, rubs, or gallops appreciated. Respiratory: No tachypnea. Lungs clear to auscultation bilaterally. Gastrointestinal: Abdomen soft, nontender, with normoactive bowel sounds. No rebound or guarding. Neurological: Awake. Alert. Nonfocal, nonlateralizing. Skin: No rash. Normal color. No pallor. Musculoskeletal: No pedal edema. Full range of motion extremities. Const Vital Signs: 05/04/23 09:01 05/04/23 09:15 05/04/23 11:00 Temperature 97.8 F Temperature Source Temporal Pulse Rate 70 Respiratory Rate 16 18 Respiratory Effort Normal Non-Labored Respiratory Pattern Normal Blood Pressure 149/57 H Blood Pressure Mean 87 Pulse Ox 98 Oxygen Delivery Method Room Air MDM MDM MDM Narrative Medical decision making narrative: The differential diagnosis for his generalized weakness is exacerbation of his chronic anemia. Concern is also for GI bleeding given his reported black stool. I reviewed his prior records. Is been seen multiple times for fatigue, shortness of breath, and some other chronic symptoms. Does have a pacemaker. Comprehensive work-up was pursued. In discussion with the patient and his , he feels that he needs placement in rehab again because he is having difficulty ambulating at home. Reviewed the patient's laboratory work. He has a neutropenia 4.1 today, hemoglobin stable at 10.6, slight thrombocytopenia of 142. Glucose is appropriately elevated at 206 with a normal anion gap of 6, have low concern for diabetic ketoacidosis. AST and ALT are slightly elevated which I think is nonspecific. There are no ketones in his urine, no evidence of infection. I do not feel antibiotics are indicated. However, chaperoned rectal examination revealed brown-colored stool which is Hemoccult positive. Given the fact that he is on Eliquis and a GI bleed that is stable, patient was discussed with Dr. Gayatri Field for admission. Disposition is admit in stable condition. History & Record Review Discussion w/independent historian: Patient and Family Additional record(s) reviewed:: Prior outpatient record, Prior ED visit and Prior labs Lab Data Attestation: I reviewed the patient's lab results. Labs: Laboratory Results - last 24 hr 05/04/23 05/04/23 09:16 10:26 WBC 4.1 L RBC 3.46 L Hgb 10.6 L Hct 32.4 L MCV 93.6 MCH 30.6 MCHC 32.7 RDW Std Deviation 48.0 H RDW Coeff of Flavio 14.1 Plt Count 142 L MPV 10.4 Sodium 138 Potassium 4.2 Chloride 109 H Carbon Dioxide 23.0 Anion Gap 6 BUN 36 H Creatinine 1.80 H Est GFR (MDRD) Af Amer 47 L Est GFR (MDRD) Non-Af 38 L BUN/Creatinine Ratio 20.0 Glucose 206 H Calcium 8.7 Total Bilirubin 0.90 AST 56 H ALT 63 H Alkaline Phosphatase 177 H Troponin I High Sens 21 Total Protein 7.1 Albumin 2.9 L Globulin 4.2 Albumin/Globulin Ratio 0.7 L Urine Color Yellow Urine Clarity Clear Urine pH 6.0 Ur Specific [place] 1.010 Urine Protein Negative Urine Glucose (UA) Normal Urine Ketones Negative Urine Occult Blood Negative Urine Nitrite Negative Urine Bilirubin Negative Urine Urobilinogen Normal Ur Leukocyte Esterase Negative Urine RBC 0 SEEN Urine WBC 0 SEEN Ur Squamous Epith Cells 0 SEEN Urine Bacteria 0 SEEN Urine Mucus 0 SEEN Radiography Diagnostic Testing: Clinical Impression(s) from Imaging Studies Chest X-Ray 05/04/23 10:09 IMPRESSION: No acute pulmonary process Electronically Signed: Stewart Ramirez MD at 10:57 EDT , Discharge Plan Triage Chief Complaint: Dizziness ED Provider: Choco Salazar Dx/Rx/DC Orders Clinical Impression: GI bleeding, Generalized weakness, Chronic anticoagulation Prescriptions: No Action meclizine 25 mg tablet 25 mg PO TID PRN (Reason: dizziness) Qty: 90 0RF sennosides-docusate sodium [Stool Softener-Stimulant Laxat] 8.6-50 mg tablet 1 tab-cap PO DAILY PRN Systane Complete 0.6 % drops 1 drp ophthalmic (eye) TID PRN progesterone micronized 100 mg capsule 100 mg PO QHS Qty: 90 0RF pramipexole [Mirapex] 1 mg tablet 2 mg PO QHS Qty: 180 3RF famotidine 40 mg tablet 40 mg PO DAILY nitroglycerin 0.4 mg Tablet, Sublingual 0.4 mg sublingual Q5M PRN (Reason: Cardiac/Chest Pain) 30 Days Qty: 30 0RF acetaminophen 500 mg Tablet 1,000 mg PO Q8H PRN PRN (Reason: Pain) Qty: 30 0RF metoprolol succinate 25 mg tablet extended release 24 hr 12.5 mg PO DAILY hydralazine 50 mg tablet 75 mg PO BID sertraline 25 mg tablet 25 mg PO DAILY furosemide [Lasix] 40 mg tablet 60 mg PO DAILY Qty: 45 0RF finasteride 5 mg tablet 5 mg PO DAILY Qty: 90 3RF ergocalciferol (vitamin D2) 1,250 mcg (50,000 unit) capsule 50,000 unit PO QMONTH Qty: 14 1RF ferrous sulfate 325 mg (65 mg iron) tablet 325 mg PO TH Qty: 90 1RF Rx Instructions: only dulaglutide 4.5 mg/0.5 mL pen injector 4.5 mg SC .COMPLEX 90 Days Qty: 2 2RF Rx Instructions: 4.5 mg subcut every friday Eliquis 2.5 mg tablet 2.5 mg PO BID Qty: 180 3RF atorvastatin 10 mg tablet 10 mg PO QHS Qty: 90 3RF fluticasone propionate 50 mcg/actuation spray,suspension 2 spray intranasal DAILY Qty: 16 3RF (DME) pen needle, diabetic [BD Ultra-Fine Mini Pen Needle] 31 gauge x 3/16 needle See Rx Instructions .Route Qty: 100 4RF Rx Instructions: As directed amiodarone 200 mg tablet 200 mg PO DAILY Qty: 90 3RF potassium chloride 20 mEq tablet extended release 20 meq PO DAILY Qty: 90 3RF insulin glargine-yfgn [Semglee(insulin glarg-yfgn)Pen] 100 unit/mL (3 mL) insulin pen 28 unit SUBCUT DAILY 90 Days Qty: 25.2 1RF Primary Care Provider: Tosha Shrestha Referrals: Tosha Shrestha MD [Primary Care Provider] -
[2023-05-04 10:23] LABS: Hematocrit 32.4 % (40-54); Hemoglobin 10.6 g/dL (13.0-16.5); Mean Corp Hgb Conc 32.7 g/dL (32-36); Mean Corpuscular Hgb 30.6 pg (27.0-32.0); Mean Corpuscular Volume 93.6 fL (80-94); Mean Platelet Vol. 10.4 fl (6.2-12.0); Platelet Count 142 K/mm3 (150-450); RBC Distribution Width CV 14.1 % (11.6-14.6); Red Blood Count 3.46 M/mm3 (4.6-6.2); White Blood Count 4.1 K/mm3 (4.4-11.0)
[2023-05-04 10:30] LABS: Bacteria 0 SEEN /hpf (None Seen); Mucous, Urine 0 SEEN /hpf (<or=2+); Red Blood Cells-Urine 0 SEEN /hpf (0-5); Squamous Epithelial Cells - UA 0 SEEN /hpf (0-5); White Blood Cells 0 SEEN /hpf (0-5)
[2023-05-04 10:31] LABS: Color, Urine Yellow (Yellow); Glucose, Dipstick Normal (Normal); Ketone-Dipstick Negative (Negative); Leukocyte Esterase-Dipstick Negative /ul (Negative); Nitrite-Dipstick Negative (Negative); Occult Blood-Urine Negative /ul (Negative); Protein-Dipstick Negative (Negative); Urine Bilirubin Dipstick Negative (Negative); Urine Clarity Clear (Clear); Urine Urobilinogen Normal (Normal)
[2023-05-04 10:41] LABS: ALB/GLOB Ratio 0.7 RATIO (0.9-2.4); AST(SGOT) 56 U/L (15-37); Alanine Aminotransfer ALT/SGPT 63 U/L (16-61); Albumin, Serum 2.9 g/dL (3.2-5.0); Alkaline Phosphatase 177 U/L (45-117); Anion Gap 6 (5-15); BUN 36 mg/dL (7-18); Calcium,Total 8.7 mg/dL (8.5-10.1); Chloride 109 mmol/L (98-107); EST Glomerular Filtration Rate 38 mL/min (>60); Est Glom Filt Rate - Afr Amer 47 mL/min (>60); Globulin 4.2 g/dL (2.2-4.2); Glucose 206 mg/dL (74-106); Potassium 4.2 mmol/L (3.5-5.1); Protein, Total 7.1 g/dL (6.4-8.2); Sodium Level 138 mmol/L (136-145); Troponin-I HS 21 pg/mL (3.0-78.0)
[2023-05-04] MEDS: 0.9% Normal Saline (500mL Bag) 500 ML 1000 ML IV (10:41)
--- NOTE | 2023-05-04 12:49 | HP.PCM.HOS_ITS ---
HPI - General General Date of Admission: 05/04/23 Date of Service: 05/04/23 Chief Complaint: Weakness/debility HPI Narrative MARY SAN, is a 82 M who presented to the emergency department at [facility] on 05/04/2023 with generalized weakness and debility. Patient states that he had ongoing symptoms now since the beginning of April. He also reported that he has been having some intermittent black tarry stools. He denied any shortness of breath that was significant but indicates he is using a walker continuously to ambulate. He said simple things that he was able to do previously have been more difficult for him and he feels like he needs to go to rehab somewhere. He was here on the and was sent home after work-up was overall unrevealing. He states that this time he simply cannot go home and he needs some help prior to returning home where he is going to have bigger problems. He has a chronic cough which has been stable. He denies any significant pain. Denies chest pain, nausea, vomiting, or diarrhea. He has had no recent medication changes but is on apixaban for history of atrial fibrillat ion. He takes apixaban. He does have a complex medical history but no history of coronary artery disease. He follows with both pulmonary medicine and cardiology. Vital signs on presentation showed temperature of 97.8, heart rate 70, blood pressure 149/57, respiratory to 16, oxygen saturations are 98% on room air. CBC shows mild leukopenia with a white count of 4.1, anemia with a hemoglobin of 10.6 and mild thrombocytopenia with a platelet count of 142,000. His thrombocytopenia is new and his hemoglobin is down about a gram from January. His chemistry panel reveals normal electrolytes and a chronically elevated BUN and creatinine at 36 and 1.80 which are his baseline. His serum glucose is mildly elevated at 206. AST and ALT are mildly elevated at 56 and 63 respectively it appears this is new as well. His UA is completely unremarkable. Chest x-ray shows no acute cardiopulmonary processes. Guaiac stool is positive. [facility] Medical History (HFpEF) heart failure with preserved ejection fraction (12/12/20) Acute dyspnea Acute on chronic diastolic HF (heart failure) Acute respiratory failure with hypoxia Anemia Anemia of chronic renal failure, stage 3 (moderate) Anxiety and depression Atherosclerotic heart disease of [place] coronary artery without angina pectoris Atrial flutter Atrial flutter Atypical chest pain Back pain BMI 34.0-34.9,adult BPH (benign prostatic hyperplasia) BPPV (benign paroxysmal positional vertigo) Bradycardia Cardiac dysrhythmia Cardiology follow-up encounter CHF (congestive heart failure) CHF (congestive heart failure) CHF (congestive heart failure) De Quervain's tenosynovitis Debility Depression Dermatitis Diabetes mellitus Diabetic kidney disease Dizziness DM type 2 with diabetic peripheral neuropathy DVT (deep venous thrombosis) Dyslipidemia Dysphagia Essential (primary) hypertension Fall Flu vaccine need Fracture of great toe Gastric reflux Gout Gout flare Health care maintenance History of echocardiogram History of edema History of GI bleed History of peptic ulcer History of renal calculi History of ulceration HLD (hyperlipidemia) Injury of head and neck Iron deficiency anemia Iron deficiency anemia due to chronic blood loss Kidney hematoma (12/08/20) Left knee pain Left leg DVT Loss of equilibrium Low iron Malaise Near syncope Orthostatic hypotension MACHELLE (obstructive sleep apnea) Pain of left lower extremity Paroxysmal atrial fibrillation Paroxysmal atrial flutter Pneumonia Polypharmacy 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 Presence of cardiac pacemaker Prostate disease Psoriasis Recurrent syncope (06/19/22) Renal calculi RLS (restless legs syndrome) Sex disorder Sick sinus syndrome Suicidal ideation SVT (supraventricular tachycardia) TIA (transient ischemic attack) Type 2 diabetes mellitus with diabetic polyneuropathy Urolithiasis Venous insufficiency of both lower extremities Vertigo Walker as ambulation aid Weakness Wears glasses Home Medications finasteride 5 mg tablet 5 mg PO DAILY PROSTATE #90 tabs 11/03/18 [Rx Last Taken 12/23/22] meclizine 25 mg tablet 25 mg PO TID PRN dizziness #90 tabs 10/24/22 [Rx Last Taken 11/29/22] ergocalciferol (vitamin D2) 1,250 mcg (50,000 unit) capsule 50,000 unit PO QMONTH SUPPLEMENT #14 caps 11/29/22 [Rx Last Taken 12/16/22] ferrous sulfate 325 mg (65 mg iron) tablet 325 mg PO TH supplement #90 tabs 11/29/22 [Rx Last Taken 12/19/22] acetaminophen 500 mg tablet 1,000 mg (2 x 500 mg) PO Q8H PRN PRN Pain #30 tabs 12/03/22 [Rx Last Taken 12/23/22 06:00] nitroglycerin 0.4 mg sublingual tablet 0.4 mg sublingual Q5M PRN Cardiac/Chest Pain 30 days #30 tabs 12/03/22 [Rx Last Taken Unknown] metoprolol succinate 25 mg tablet,extended release 24 hr 12.5 mg PO DAILY BP 12/07/22 [History Last Taken 12/23/22] dulaglutide 4.5 mg/0.5 mL subcutaneous pen injector 4.5 mg (0.5 mL) subcut .COMPLEX DM 3 months #2 mL 12/09/22 [Rx Last Taken 12/20/22] furosemide 40 mg tablet (Lasix) 60 mg (1.5 x 40 mg) PO DAILY edema #45 tabs 12/24/22 [Rx Last Taken Unknown] apixaban 2.5 mg tablet (Eliquis) 2.5 mg PO BID thin #180 tabs 12/25/22 [Rx Last Taken Unknown] atorvastatin 10 mg tablet 10 mg PO QHS cholesterol #90 tabs 12/25/22 [Rx Last Taken Unknown] fluticasone propionate 50 mcg/actuation nasal spray,suspension 2 spray intranasal DAILY congestiom #16 grams 12/26/22 [Rx Last Taken Unknown] pen needle, diabetic 31 gauge x 3/16 (BD Ultra-Fine Mini Pen Needle) #100 ea 12/30/22 [Rx Last Taken Unknown] amiodarone 200 mg tablet 200 mg PO DAILY heart #90 tabs 01/02/23 [Rx Last Taken Unknown] potassium chloride 20 mEq tablet,extended release 20 meq PO DAILY sup #90 tabs 01/06/23 [Rx Last Taken Unknown] famotidine 40 mg tablet 40 mg PO DAILY reflux 02/04/23 [History Last Taken Unknown] hydralazine 50 mg tablet 75 mg PO BID blood pressure 02/04/23 [History Last Taken Unknown] pramipexole 1 mg tablet (Mirapex) 2 mg (2 x 1 mg) PO QHS RLS #180 tabs 02/04/23 [Rx Last Taken Unknown] progesterone micronized 100 mg capsule 100 mg PO QHS HORMONE #90 caps 02/04/23 [Rx Last Taken Unknown] propylene glycol 0.6 % eye drops (Systane Complete) 1 drp ophthalmic (eye) TID PRN dry eyes 02/04/23 [History Last Taken Unknown] sennosides 8.6 mg-docusate sodium 50 mg tablet (Stool Softener-Stimulant Laxative) 1 tab-cap PO DAILY PRN constipation 02/04/23 [History Last Taken Unknown] sertraline 25 mg tablet 25 mg PO DAILY DEPRESSION 02/04/23 [History Last Taken Unknown] insulin glargine-yfgn 100 unit/mL (3 mL) subcutaneous pen (Semglee (insulin glargine-yfgn) Pen) 28 unit (0.28 mL) subcut DAILY diabetes 90 days #25.2 mL 02/07/23 [Rx Last Taken Unknown] Allergy/AdvReac Type Severity Reaction Status Date / Time hydrocodone bitartrate AdvReac Severe Other Verified 05/04/23 09:04 [From Vicodin] hydroxyzine AdvReac Severe Other Verified 05/04/23 09:04 doxycycline AdvReac Intermediate Shortness Verified 05/04/23 09:04 of breath (had CHF also, may not be true allergy Family History Father Diabetes Hypertension Cancer Lung cancer Mother Hypertension CVA (cerebral vascular accident) Sister Diabetes Son Diabetes Surgical History History of cardioversion (2015) History of cataract surgery History of left heart catheterization (02/16/13) History of lithotripsy (11/2020) History of loop recorder (06/26/22) History of radiofrequency ablation procedure for cardiac arrhythmia (02/05/06) history of right knee cap fracture History of right knee surgery Status post laser lithotripsy of ureteral calculus Status post left foot surgery STENT PLACEMENT FOR KIDNEY STONE Social History household members: spouse housing: house Smoking Status: Never smoker how long ago did patient quit smokin second hand exposure: No alcohol intake: never substance use type: does not use caffeine: No what type of physical activity do you participate in: none seatbelt use: always do you feel safe at home: Yes ROS Constitutional Constitutional: Reports fatigue and weakness; Denies anorexia, change in weight, chills, fever(s), malaise, night sweats or other Eyes Eyes: Denies blurry vision, change in eye color, change in vision, discharge fr om eye(s), double vision, erythema, eye pain, loss of vision or other ENT HEENT: Denies abnormal hearing, dysphagia, ear pain, epistaxis, headache(s), hearing loss, nasal congestion, nasal discharge, post nasal drip, sinus pressure, sore throat or other Cardiovascular Cardiovascular: Denies chest pain, claudication, dyspnea on exertion, edema, lightheadedness, orthopnea, palpitations, paroxysmal nocturnal dyspnea, rapid heart rate, syncope or other Respiratory/Chest Respiratory/Chest: Reports cough; Denies dyspnea, excessive phlegm production, hemoptysis, productive cough, shortness of breath at rest, shortness of breath with exertion, wheezing or other Gastrointestinal Gastrointestinal: Reports melena; Denies abdominal pain, coffee ground emesis, constipation, diarrhea, dyspepsia, hematemesis, hematochezia, loose stools, nausea, vomiting or other Genitourinary Genitourinary: Denies burning urination, difficulty urinating, dysuria, hematuria, nocturia, urinary frequency, urinary hesitancy, urinary incontinence, urinary urgency or other Musculoskeletal Musculoskeletal: Reports joint pain and joint stiffness; Denies arthralgias, back pain, joint swelling, myalgias, neck pain or other Neurologic Neurologic: Reports abnormal gait; Denies abnormal speech, confusion, disequilibrium, dizziness, focal weakness, headache(s), numbness, paresthesias, seizure-like activity, seizures, syncope, tingling, tremor(s) or other Psychiatric Psychiatric: Denies anxiety, depression, homicidal ideation, suicidal ideation or other Endocrine Endocrinology: Denies change in body appearance, cold intolerance, excessive sweating, heat intolerance, polydipsia, polyuria or other Hematologic/Lymphatic Hematologic/Lymphatic: Denies anemia, easy bleeding, easy bruising, lymphadenopathy or other Allergic/Immunologic Allergic/Immunologic: Denies rhinitis, hives, eczemia, asthma or other Vital Signs Vital Signs Vital Signs: 05/04/23 09:01 05/04/23 09:15 05/04/23 11:00 Temperature 97.8 F Temperature Source Temporal Pulse Rate 70 Respiratory Rate 16 18 Respiratory Effort Normal Non-Labored Respiratory Pattern Normal Blood Pressure 149/57 H Blood Pressure Mean 87 Pulse Ox 98 Oxygen Delivery Method Room Air Physical Exam Const alert, oriented x3, no apparent distress and well nourished; Negative for average body habitus or healthy appearing Constitutional Narrative: Morbidly obese, white male, elderly, sitting up in bed, at bedside, patient appears comfortable and nontoxic at this time, appears chronically ill General Appearance: cooperative HEENT normocephalic, head/scalp atraumatic and moist oral mucous membranes HEENT Narrative: Mallampati 3, dentition is fair for age, no thrush, moderate hearing loss Eyes PERRL, EOMs intact bilaterally and conjunctivae normal Eyes Narrative: No scleral icterus Neck no lymphadenopathy, supple, no JVD and no carotid bruits Neck Narrative: Trachea midline, neck is short and thick with redundant tissue anteriorly Resp normal respiratory effort, no retractions, no use of accessory muscles and clear to auscultation bilaterally Resp Narrative: Diminished but clear Auscultation: Negative for rales, rhonchi or wheezes Cardio regular rate, regular rhythm, S1 normal heart sound, S2 normal heart sound, no murmurs, no rub, no gallops and no clicks GI normal to inspection, nondistended, normoactive bowel sounds, soft to palpation and non-tender Extremity no clubbing, cyanosis or edema Extremity Narrative: Pedal pulses are 2 Skin No no wounds, No skin turgor normal, No no jaundice, No no petechiae and No no mottling Skin Narrative: Scattered changes consistent with sun exposure and scattered ecchymosis Neuro oriented x3, CN's II-XII intact bilaterally, moves all extremities and no focal motor deficits Neuro Narrative: Significant generalized weakness with proximal musculature being weaker than distal musculature consistent with sarcopenia Speech: speech normal Psych Psych Narrative: Affect is somewhat flattened mood seems mildly depressed Mood & Affect: depressed Results Lab / Micro Data Attestation: I reviewed the patient's lab results. 05/04/23 09:16 05/04/23 09:16 Labs: Laboratory Results - last 24 hr 05/04/23 09:16: WBC 4.1 L, RBC 3.46 L, Hgb 10.6 L, Hct 32.4 L, MCV 93.6, MCH 30.6, MCHC 32.7, RDW Std Deviation 48.0 H, RDW Coeff of Flavio 14.1, Plt Count 142 L, MPV 10.4, Sodium 138, Potassium 4.2, Chloride 109 H, Carbon Dioxide 23.0, Anion Gap 6, BUN 36 H, Creatinine 1.80 H, Est GFR (MDRD) Af Amer 47 L, Est GFR (MDRD) Non-Af 38 L, BUN/Creatinine Ratio 20.0, Glucose 206 H, Calcium 8.7, Total Bilirubin 0.90, AST 56 H, ALT 63 H, Alkaline Phosphatase 177 H, Troponin I High Sens 21, Total Protein 7.1, Albumin 2.9 L, Globulin 4.2, Albumin/Globulin Ratio 0.7 L 05/04/23 10:26: Urine Color Yellow, Urine Clarity Clear, Urine pH 6.0, Ur Specific [place] 1.010, Urine Protein Negative, Urine Glucose (UA) Normal, Urine Ketones Negative, Urine Occult Blood Negative, Urine Nitrite Negative, Urine B ilirubin Negative, Urine Urobilinogen Normal, Ur Leukocyte Esterase Negative, Urine RBC 0 SEEN, Urine WBC 0 SEEN, Ur Squamous Epith Cells 0 SEEN, Urine Bacteria 0 SEEN, Urine Mucus 0 SEEN Micro: Microbiology 05/04/23 11:30 Stool Stool Occult Blood (AKIN) - Final Occult Blood Positive Radiology Impression Chest X-Ray 05/04/23 10:09 IMPRESSION: No acute pulmonary process Electronically Signed: Stewart Ramirez MD at 10:57 EDT Reading Location ID and State: [facility] / [place] , Service support , Assessment & Plan Assessment/Plan (1) Chronic anticoagulation: (2) Generalized weakness: (3) Anemia: (4) GI bleed: (5) Transaminitis: PLAN: Plan Acute GI bleed -Guaiac stool positive -Hemoglobin down about 1 g from previous -Hold home with and -We will plan for EGD and colonoscopy tomorrow -Colon prep ordered -Start Protonix IV 40 mg twice daily -Gastroenterology consult-Dr. Becerra notified Acute on chronic anemia -Hemoglobin down around 1 g from baseline which is between 11 and 12 -Current hemoglobin 6.5 -Continue home iron supplementation -GI consultation as noted above Transaminitis -This is mild -Etiology is unclear -We will trend with repeat tomorrow Thrombocytopenia -This is new -Very mild -Could be consumptive if bleeding -Repeat in a.m. Generalized weakness/debility -Patient does not feel he will be able to go home at discharge -Consult PT/OT -Social work/case management consultation for discharge planning--> patient will need 3 midnights MACHELLE -Continue home BiPAP HFpEF/PAH -Continue home Lasix -Most recent echocardiogram from 2017 shows an EF of 65% with no wall motion abnormalities History of SVT/PAF -Previous radiofrequency ablation and cardioversion -Currently normal sinus rhythm -Continue home next-continue home amiodarone -Apixaban on hold due to guaiac positive stool and GI bleed History of pacemaker placement -Placed for junctional rhythm in 2022 DM-2 -Hold Trulicity and restart at discharge -Continue home basal insulin 28 units daily -SSI 3 times daily -Accu-Cheks as ordered Restless leg syndrome -Continue home Mirapex BPH -Continue home finasteride Vitamin D deficiency -Restart ergocalciferol at discharge Hyperlipidemia -Continue home atorvastatin Hypertension -Continue home metoprolol -Continue home hydralazine Obesity -BMI 36.1 -Complicates treatment, prognosis, outcomes -Recommend weight loss DVT prophylaxis -SCDs -Hold home apixaban due to GI bleed CODE STATUS -Full code as verified on mission Charges/Coding Visit Charges Inpatient E&M: 96079 Init Hosp L3
[2023-05-04] MEDS: Bisacodyl 5 MG Tablet 20 MG PO (17:04)
[2023-05-04 17:09] LABS: Bedside Glucose 138 mg/dL (74-106)
--- NOTE | 2023-05-04 17:10 | CON.PCM.GI_ITS ---
HPI Consult Data Date of Consult: 05/04/23 HPI Narrative Reason for Consultation: GI bleed HPI Narrative: MARY SAN, is a 82 M who presents with progressive weakness and fatigue. He has a past medical history of obstructive sleep apnea, diabetes, chronic anemia, chronic dizziness, presents with multiple somatic complaints ranging from increased dizziness and generalized weakness. He also has a history of Schatzki ring, duodenal ulcers, GI bleed while on blood thinners.?Last office visit was in 12/05/2022--he declined repeat EGD, he declines referral to a tertiary center for deep enteroscopy in the small bowel due to AVM seen on his capsule endoscopy.? He denies any chest pain but states on occasion is short of breath. He states that on Friday he had black stool a few times, and once yesterday. He had called his primary care provider on Friday who told him that he needed to be evaluated. He and his state that he has become increasingly more weak when he tried to get out of bed and ambulate today. They have been through rehab and home health care in the past few months ago. Additionally, they state that they were seen last week, and everything checked out. He presents with increasing fatigue and generalized weakness. He denies any dysuria or hematuria. No nausea or vomiting. No hematemesis. His current hemoglobin is 10.6 down from 11.7. ON LICENSE OF [facility] Medical History (HFpEF) heart failure with preserved ejection fraction (12/12/20) Acute dyspnea Acute on chronic diastolic HF (heart failure) Acute respiratory failure with hypoxia Anemia Anemia of chronic renal failure, stage 3 (moderate) Anxiety and depression Atherosclerotic heart disease of [place] coronary artery without angina pectoris Atrial flutter Atrial flutter Atypical chest pain Back pain BMI 34.0-34.9,adult BPH (benign prostatic hyperplasia) BPPV (benign paroxysmal positional vertigo) Bradycardia Cardiac dysrhythmia Cardiology follow-up encounter CHF (congestive heart failure) CHF (congestive heart failure) CHF (congestive heart failure) De Quervain's tenosynovitis Debility Depression Dermatitis Diabetes mellitus Diabetic kidney disease Dizziness DM type 2 with diabetic peripheral neuropathy DVT (deep venous thrombosis) Dyslipidemia Dysphagia Essential (primary) hypertension Fall Flu vaccine need Fracture of great toe Gastric reflux Gout Gout flare Health care maintenance History of echocardiogram History of edema History of GI bleed History of peptic ulcer History of renal calculi History of ulceration HLD (hyperlipidemia) Injury of head and neck Iron deficiency anemia Iron deficiency anemia due to chronic blood loss Kidney hematoma (12/08/20) Left knee pain Left leg DVT Loss of equilibrium Low iron Malaise Near syncope Orthostatic hypotension MACHELLE (obstructive sleep apnea) Pain of left lower extremity Paroxysmal atrial fibrillation Paroxysmal atrial flutter Pneumonia Polypharmacy 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 Presence of cardiac pacemaker Prostate disease Psoriasis Recurrent syncope (06/19/22) Renal calculi RLS (restless legs syndrome) Sex disorder Sick sinus syndrome Suicidal ideation SVT (supraventricular tachycardia) TIA (transient ischemic attack) Type 2 diabetes mellitus with diabetic polyneuropathy Urolithiasis Venous insufficiency of both lower extremities Vertigo Walker as ambulation aid Weakness Wears glasses Home Medications finasteride 5 mg tablet 5 mg PO DAILY PROSTATE #90 tabs 11/03/18 [Rx Last Taken 12/23/22] meclizine 25 mg tablet 25 mg PO TID PRN dizziness #90 tabs 10/24/22 [Rx Last Taken 11/29/22] ergocalciferol (vitamin D2) 1,250 mcg (50,000 unit) capsule 50,000 unit PO QMONTH SUPPLEMENT #14 caps 11/29/22 [Rx Last Taken 12/16/22] ferrous sulfate 325 mg (65 mg iron) tablet 325 mg PO TH supplement #90 tabs 11/29/22 [Rx Last Taken 12/19/22] acetaminophen 500 mg tablet 1,000 mg (2 x 500 mg) PO Q8H PRN PRN Pain #30 tabs 12/03/22 [Rx Last Taken 12/23/22 06:00] nitroglycerin 0.4 mg sublingual tablet 0.4 mg sublingual Q5M PRN Cardiac/Chest Pain 30 days #30 tabs 12/03/22 [Rx Last Taken Unknown] metoprolol succinate 25 mg tablet,extended release 24 hr 12.5 mg PO DAILY BP 12/07/22 [History Last Taken 12/23/22] dulaglutide 4.5 mg/0.5 mL subcutaneous pen injector 4.5 mg (0.5 mL) subcut .CO MPLEX DM 3 months #2 mL 12/09/22 [Rx Last Taken 12/20/22] furosemide 40 mg tablet (Lasix) 60 mg (1.5 x 40 mg) PO DAILY edema #45 tabs 12/24/22 [Rx Last Taken Unknown] apixaban 2.5 mg tablet (Eliquis) 2.5 mg PO BID thin #180 tabs 12/25/22 [Rx Last Taken Unknown] atorvastatin 10 mg tablet 10 mg PO QHS cholesterol #90 tabs 12/25/22 [Rx Last Taken Unknown] fluticasone propionate 50 mcg/actuation nasal spray,suspension 2 spray intranasal DAILY congestiom #16 grams 12/26/22 [Rx Last Taken Unknown] pen needle, diabetic 31 gauge x 3/16 (BD Ultra-Fine Mini Pen Needle) #100 ea 12/30/22 [Rx Last Taken Unknown] amiodarone 200 mg tablet 200 mg PO DAILY heart #90 tabs 01/02/23 [Rx Last Taken Unknown] potassium chloride 20 mEq tablet,extended release 20 meq PO DAILY sup #90 tabs 01/06/23 [Rx Last Taken Unknown] famotidine 40 mg tablet 40 mg PO DAILY reflux 02/04/23 [History Last Taken Unknown] hydralazine 50 mg tablet 75 mg PO BID blood pressure 02/04/23 [History Last Taken Unknown] pramipexole 1 mg tablet (Mirapex) 2 mg (2 x 1 mg) PO QHS RLS #180 tabs 02/04/23 [Rx Last Taken Unknown] progesterone micronized 100 mg capsule 100 mg PO QHS HORMONE #90 caps 02/04/23 [Rx Last Taken Unknown] propylene glycol 0.6 % eye drops (Systane Complete) 1 drp ophthalmic (eye) TID PRN dry eyes 02/04/23 [History Last Taken Unknown] sennosides 8.6 mg-docusate sodium 50 mg tablet (Stool Softener-Stimulant Laxati ve) 1 tab-cap PO DAILY PRN constipation 02/04/23 [History Last Taken Unknown] sertraline 25 mg tablet 25 mg PO DAILY DEPRESSION 02/04/23 [History Last Taken Unknown] insulin glargine-yfgn 100 unit/mL (3 mL) subcutaneous pen (Semglee (insulin glargine-yfgn) Pen) 28 unit (0.28 mL) subcut DAILY diabetes 90 days #25.2 mL 02/07/23 [Rx Last Taken Unknown] Allergy/AdvReac Type Severity Reaction Status Date / Time hydrocodone bitartrate AdvReac Severe Other Verified 05/04/23 09:04 [From Vicodin] hydroxyzine AdvReac Severe Other Verified 05/04/23 09:04 doxycycline AdvReac Intermediate Shortness Verified 05/04/23 09:04 of breath (had CHF also, may not be true allergy Family History Father Diabetes Hypertension Cancer Lung cancer Mother Hypertension CVA (cerebral vascular accident) Sister Diabetes Son Diabetes Surgical History History of cardioversion (2015) History of cataract surgery History of left heart catheterization (02/16/13) History of lithotripsy (11/2020) History of loop recorder (06/26/22) History of radiofrequency ablation procedure for cardiac arrhythmia (02/05/06) history of right knee cap fracture History of right knee surgery Status post laser lithotripsy of ureteral calculus Status post left foot surgery STENT PLACEMENT FOR KIDNEY STONE Social History household members: spouse housing: house Smoking Status: Never smoker how long ago did patient quit smokin second hand exposure: No alcohol intake: never substance use type: does not use caffeine: No what type of physical activity do you participate in: none seatbelt use: always do you feel safe at home: Yes ROS Constitutional Constitutional: Reports fatigue and weakness; Denies anorexia, change in weight, chills, fever(s), malaise, night sweats or other Eyes Eyes: Denies blurry vision, change in eye color, change in vision, discharge from eye(s), double vision, erythema, eye pain, loss of vision or other ENT HEENT: Denies abnormal hearing, dysphagia, ear pain, epistaxis, headache(s), hearing loss, nasal congestion, nasal discharge, post nasal drip, sinus pressure, sore throat or other Cardiovascular Cardiovascular: Denies chest pain, claudication, dyspnea on exertion, edema, lightheadedness, orthopnea, palpitations, paroxysmal nocturnal dyspnea, rapid heart rate, syncope or other Respiratory/Chest Respiratory/Chest: Reports cough; Denies dyspnea, excessive phlegm production, hemoptysis, productive cough, shortness of breath at rest, shortness of breath with exertion, wheezing or other Gastrointestinal Gastrointestinal: Reports melena; Denies abdominal pain, coffee ground emesis, constipation, diarrhea, dyspepsia, hematemesis, hematochezia, loose stools, nausea, vomiting or other Genitourinary Genitourinary: Denies burning urination, difficulty urinating, dysuria, hem aturia, nocturia, urinary frequency, urinary hesitancy, urinary incontinence, urinary urgency or other Musculoskeletal Musculoskeletal: Reports joint pain and joint stiffness; Denies arthralgias, back pain, joint swelling, myalgias, neck pain or other Neurologic Neurologic: Reports abnormal gait; Denies abnormal speech, confusion, disequilibrium, dizziness, focal weakness, headache(s), numbness, paresthesias, seizure-like activity, seizures, syncope, tingling, tremor(s) or other Psychiatric Psychiatric: Denies anxiety, depression, homicidal ideation, suicidal ideation or other Endocrine Endocrinology: Denies change in body appearance, cold intolerance, excessive sweating, heat intolerance, polydipsia, polyuria or other Hematologic/Lymphatic Hematologic/Lymphatic: Denies anemia, easy bleeding, easy bruising, lymphadenopathy or other Allergic/Immunologic Allergic/Immunologic: Denies rhinitis, hives, eczemia, asthma or other Physical Exam Const alert, oriented x3, no apparent distress and well nourished; Negative for average body habitus or healthy appearing General Appearance: cooperative HEENT normocephalic, head/scalp atraumatic and moist oral mucous membranes HEENT Narrative: Mallampati 3, dentition is fair for age, no thrush, moderate hearing loss Eyes PERRL, EOMs intact bilaterally and conjunctivae normal Eyes Narrative: No scleral icterus Neck no lymphadenopathy, supple, no JVD and no carotid bruits Neck Narrative: Trachea midline, neck is short and thick with redundant tissue anteriorly Resp normal respiratory effort, no retractions, no use of accessory muscles and clear to auscultation bilaterally Resp Narrative: Diminished but clear Auscultation: Negative for rales, rhonchi or wheezes Cardio regular rate, regular rhythm, S1 normal heart sound, S2 normal heart sound, no murmurs, no rub, no gallops and no clicks GI normal to inspection, nondistended, normoactive bowel sounds, soft to palpation and non-tender Extremity no clubbing, cyanosis or edema Extremity Narrative: Pedal pulses are 2 Skin No no wounds, No skin turgor normal, No no jaundice, No no petechiae and No no mottling Skin Narrative: Scattered changes consistent with sun exposure and scattered ecchymosis Neuro oriented x3, CN's II-XII intact bilaterally, moves all extremities and no focal motor deficits Neuro Narrative: Significant generalized weakness with proximal musculature being weaker than distal musculature consistent with sarcopenia Speech: speech normal Psych Psych Narrative: Affect is somewhat flattened mood seems mildly depressed Mood & Affect: depressed Lab / Micro Data 05/04/23 09:16 05/04/23 09:16 Labs: Laboratory Results - last 24 hr 05/04/23 09:16: WBC 4.1 L, RBC 3.46 L, Hgb 10.6 L, Hct 32.4 L, MCV 93.6, MCH 30.6, MCHC 32.7, RDW Std Deviation 48.0 H, RDW Coeff of Flavio 14.1, Plt Count 142 L, MPV 10.4, Sodium 138, Potassium 4.2, Chloride 109 H, Carbon Dioxide 23.0, Anion Gap 6, BUN 36 H, Creatinine 1.80 H, Est GFR (MDRD) Af Amer 47 L, Est GFR (MDRD) Non-Af 38 L, BUN/Creatinine Ratio 20.0, Glucose 206 H, Calcium 8.7, Total Bilirubin 0.90, AST 56 H, ALT 63 H, Alkaline Phosphatase 177 H, Troponin I High Sens 21, Total Protein 7.1, Albumin 2.9 L, Globulin 4.2, Albumin/Globulin Ratio 0.7 L 05/04/23 10:26: Urine Color Yellow, Urine Clarity Clear, Urine pH 6.0, Ur Specific [place] 1.010, Urine Protein Negative, Urine Glucose (UA) Normal, Urine Ketones Negative, Urine Occult Blood Negative, Urine Nitrite Negative, Urine Bilirubin Negative, Urine Urobilinogen Normal, Ur Leukocyte Esterase Negative, Urine RBC 0 SEEN, Urine WBC 0 SEEN, Ur Squamous Epith Cells 0 SEEN, Urine Bacteria 0 SEEN, Urine Mucus 0 SEEN 05/04/23 16:50: POC Glucose 138 H Micro: Microbiology 05/04/23 13:09 Nasal Secretion SARS-CoV-2 Antigen (Rapid) - Final 05/04/23 11:30 Stool Stool Occult Blood (AKIN) - Final Occult Blood Positive Radiology Impression Chest X-Ray 05/04/23 10:09 IMPRESSION: No acute pulmonary process Electronically Signed: Stewart Ramirez MD at 10:57 EDT , Assessment & Plan Assessment/Plan (1) GI bleeding: QUALIFIERS: GI bleed type/associated pathology: unspecified peptic ulcer Qualified Code(s): K27.4 - Chronic or unspecified peptic ulcer, site un specified, with hemorrhage (2) Anemia: QUALIFIERS: Anemia type: other cause Other causes of anemia: acute posthemorrhagic Qualified Code(s): D62 - Acute posthemorrhagic anemia PLAN: Plan 83-year-old G woman with past medical history of upper GI bleed secondary to gastric ulcers and 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 He also has a history of CAD, wide- complex tachycardia, sick sinus syndrome status post permanent pacemaker. I think he would benefit from an upper endoscopy due to the strain on his heart if he continues to have GI bleeding that is not identified and treated. He was explained alternatives, risk, benefits including not withstanding bleeding, infection, sepsis, perforation, need for emergent surgery . He will have an ASA of 3. Charges/Coding Visit Charges Inpatient E&M: 67996 Init Hosp L3
[2023-05-04 18:47] LABS: Bedside Glucose 113 mg/dL (74-106)
[2023-05-04 23:36] LABS: Bedside Glucose 145 mg/dL (74-106)
[2023-05-05] VITALS (12 sets, daily range): BP systolic 100–160; BP diastolic 49–66; PULSE 70–71; RESP 16–18; TEMP 36–37.1; O2SAT 92–99; BMI 36.1
[2023-05-05 05:56] LABS: Absolute Lymphocyte Count 0.94 X10^3/uL (0.83-4.51); Absolute Neutrophil Count 1.9 X10^3/uL (2.0-7.7); Basophil# 0.04 X10^3/uL; Basophil% 1.1 % (0-1); Eosinophils% 2.8 % (0-5); Hematocrit 31.7 % (40-54); Hemoglobin 10.5 g/dL (13.0-16.5); Lymphocyte # 0.94 X10^3/ul (0.83-4.51); Lymphocyte % 26.3 % (19-41); Mean Corp Hgb Conc 33.1 g/dL (32-36); Mean Corpuscular Hgb 31.3 pg (27.0-32.0); Mean Corpuscular Volume 94.3 fL (80-94); Mean Platelet Vol. 9.7 fl (6.2-12.0); Monocyte# 0.58 X10^3/uL; Monocyte% 16.2 % (0-10); NRBC Flagged by Analyzer 0 % (0-5); Neutrophil # 1.91 X10^3/uL (2.7-7.7); Neutrophil % 53.3 % (47-70); Platelet Count 134 K/mm3 (150-450); RBC Distribution Width CV 13.8 % (11.6-14.6); RBC Distribution Width SD 47.7 fl (35.1-43.9); Red Blood Count 3.36 M/mm3 (4.6-6.2); White Blood Count 3.6 K/mm3 (4.4-11.0)
[2023-05-05 05:57] LABS: International Normalized Ratio 1.2; Prothrombin Time (Protime)PT. 15.4 SECONDS (11.7-14.9)
[2023-05-05 05:58] LABS: Partial Thromboplast Time 43.7 Seconds (24.1-36.2)
[2023-05-05 06:57] LABS: Bedside Glucose 128 mg/dL (74-106)
[2023-05-05 07:21] LABS: ALB/GLOB Ratio 0.7 RATIO (0.9-2.4); AST(SGOT) 62 U/L (15-37); Alanine Aminotransfer ALT/SGPT 62 U/L (16-61); Albumin, Serum 2.8 g/dL (3.2-5.0); Alkaline Phosphatase 170 U/L (45-117); Anion Gap 6 (5-15); BUN 36 mg/dL (7-18); BUN/Creat Ratio 20.8 RATIO (10-20); Calcium,Total 8.6 mg/dL (8.5-10.1); Chloride 110 mmol/L (98-107); Creatinine, Serum 1.73 mg/dL (0.70-1.30); EST Glomerular Filtration Rate 40 mL/min (>60); Est Glom Filt Rate - Afr Amer 49 mL/min (>60); Estimated Creatinine Clearance 35.51 ml/min; Glucose 135 mg/dL (74-106); Phosphorus 3.3 mg/dL (2.5-4.9); Potassium 4.2 mmol/L (3.5-5.1); Protein, Total 6.8 g/dL (6.4-8.2); Sodium Level 139 mmol/L (136-145); Thyroid Stim Hormone (TSH) 0.92 uIU/mL (0.358-3.74)
[2023-05-05 09:30] LABS: Hemoglobin A1c 6.8 % (3.8-5.6)
[2023-05-05] MEDS: Lactated Ringers 1,000 ML 15 ML IV (10:46)
--- NOTE | 2023-05-05 11:30 | EGD_PTH ---
PATIENT: MARY SAN LOC: MS3 U#:[id number] AGE/SX: 82/M ROOM: SD315 RE05/04/[address]: Dr. Clarice Fontenot MD : 1940 BED: 1 DIS: 05/07/2023 SPEC #: [id number] RECD: 05/05/23 14:05 STATUS: CRISTIAN JAROD #: [id number] REYNALDO: 05/05/23 11:[address]: Jesus Becerra DEPT: SURGICAL PATHOLOGY RECD BY: James Jarrett ENTERED: 05/07/23 08:30 SP TYPE: EGD [facility]OP[facility] DR: MD Dr. Claudine Lopez DO Dr. Nana Yaa Koram, MD Tissues: Duodenum, NOS Procedures: Surgery Specimen Level IV HEADER OPERATION: EGD with biopsy and electrohemostasis PRE-OP DIAGNOSIS: GI bleeding, anemia TISSUE SUBMITTED: Duodenal polyp biopsy MICROSCOPIC DIAGNOSIS Duodenal polyp, biopsy: Focal gastric metaplasia. Mild chronic inflammation. AM:lisa 05/08/2023 MICROSCOPIC DESCRIPTION Slides are reviewed. GROSS DESCRIPTION Received in fixative is one container labeled with the patient's name and designated duodenal polyp. The specimen consists of one irregular fragment of light monson soft tissue that measures 0.6 x 0.2 x 0.1 cm. The specimen is totally submitted in one cassette. / AM:lisa 05/07/2023 TC:3 CPT: 36084
--- NOTE | 2023-05-05 11:58 | OP.CCLET_ITS ---
05/05/2023 Tosha Shrestha MD [address] [place] [address] [place] [address] Re : Upper GI endoscopy procedure for Jr Ji Dear Dr. Shrestha This procedure was performed on Friday, May 05, 2023. My impressions and recommendations are as follows: Impressions : - Normal esophagus. - A single bleeding angiodysplastic lesion in the stomach. Injected. Treated with a heater probe. - A single duodenal polyp. Resected and retrieved. Recommendations : - Return patient to hospital [facility] for ongoing care. - Full liquid diet. - Continue present medications. My findings are described in the full procedure note, which is enclosed. If I can be of further assistance, please feel free to contact me at . Sincerely, Jesus Becerra, 05/05/2023 11:58:14 AM This report has been signed electronically.
--- NOTE | 2023-05-05 11:58 | OP.EGD_ITS ---
Patient Name: Jr Ji Procedure Date: 05/05/2023 11:26 AM Date of : 1940 Age: 82 Procedure: Upper GI endoscopy Indications: Iron deficiency anemia, Melena Providers: Jesus Becerra DO Medicines: Monitored Anesthesia Care Patient Profile: This is an 82 year old male. Refer to note in patient chart for documentation of history and physical. Patient has symptoms of chronic dyspepsia. Complications: No immediate complications. Procedure: Pre-Anesthesia Assessment: - Prior to the procedure, a History and Physical was performed, and patient medications and allergies were reviewed. The patient is competent. The risks and benefits of the procedure and the sedation options and risks were discussed with the patient. All questions were answered and informed consent was obtained. Patient identification and proposed procedure were verified by the physician in the pre-procedure area. Mental Status Examination: alert and oriented. Airway Examination: normal oropharyngeal airway and neck mobility. Respiratory Examination: clear to auscultation. CV Examination: normal. Prophylactic Antibiotics: The patient does not require prophylactic antibiotics. Prior Anticoagulants: The patient has taken no anticoagulant or antiplatelet agents. ASA Grade Assessment: II - A patient with mild systemic disease. After reviewing the risks and benefits, the patient was deemed in satisfactory condition to undergo the procedure. The anesthesia plan was to use monitored anesthesia care (MAC). Immediately prior to administration of medications, the patient was re-assessed for adequacy to receive sedatives. The heart rate, respiratory rate, oxygen saturations, blood pressure, adequacy of pulmonary ventilation, and response to care were monitored throughout the procedure. The physical status of the patient was re-assessed after the procedure. After obtaining informed consent, the endoscope was passed under direct vision. Throughout the procedure, the patient's blood pressure, pulse, and oxygen saturations were monitored continuously. The gastroscope was introduced through the mouth, and advanced to the second part of duodenum. The upper GI endoscopy was accomplished without difficulty. The patient tolerated the procedure well. Scope In: 11:48:41 AM Scope Out: 11:53:15 AM Total Procedure Duration Time 0 hours 4 minutes 34 seconds Findings: The examined esophagus was normal. A single 5 mm angiodysplastic lesion with bleeding was found on the greater curvature of the stomach. Area was successfully injected with 5 mL of a 0.1 mg/mL solution of epinephrine for drug delivery. Coagulation for hemostasis using heater probe was successful. A single 7 mm sessile polyp was found in the second portion of the duodenum. The polyp was removed with a cold snare. Resection and retrieval were complete. Verification of patient identification for the specimen was done. Estimated blood loss was minimal. Impression: - Normal esophagus. - A single bleeding angiodysplastic lesion in the stomach. Injected. Treated with a heater probe. - A single duodenal polyp. Resected and retrieved. Recommendation: - Return patient to hospital [facility] for ongoing care. - Full liquid diet. - Continue present medications. Procedure Code(s): --- Professional --- 55825, 59, Esophagogastroduodenoscopy, flexible, transoral; with control of bleeding, any method 62751, 51, Esophagogastroduodenoscopy, flexible, transoral; with removal of tumor(s), polyp(s), or other lesion(s) by snare technique 02670, 59, Esophagogastroduodenoscopy, flexible, transoral; with directed submucosal injection(s), any substance CPT copyright 2021 [employer]. All rights reserved. The codes documented in this report are preliminary and upon sow farm technician review may be revised to meet current compliance requirements. Jesus Becerra DO 05/05/2023 11:58:14 AM This report has been signed electronically. Number of Addenda: 0 Note Initiated On: 05/05/2023 11:26 AM
--- NOTE | 2023-05-05 13:15 | PN_ITS ---
Subjective Subjective Patient seen and examined this morning. He had no active complaints and had an uneventful night. He is due for EGd this morning. Review of systems is otherwise negative. Objective Data Objective Data Vital Signs: Vital Signs Temp Pulse Resp BP Pulse Ox O2 Del Method 96.8 F L 70 18 135/58 H 98 Room Air 05/05/23 12:37 05/05/23 12:37 05/05/23 12:37 05/05/23 12:37 05/05/23 12:37 05/05/23 12:37 Oxygen Delivery Method Room Air Weight: 266 lb 5.094 oz Body Mass Index (BMI) 36.1 Intake & Output: Intake and Output for Last 24 Hours 05/03/23 05/04/23 05/05/23 23:59 23:59 23:59 Intake Total 500 / 750 281 / 281 Balance 500 / 750 281 / 281 Lab / Micro Data 05/05/23 05:36 05/05/23 05:36 Labs: Laboratory Results - last 24 hr 05/04/23 16:50: POC Glucose 138 H 05/04/23 18:05: POC Glucose 113 H 05/04/23 23:17: POC Glucose 145 H 05/05/23 05:36: WBC 3.6 L, RBC 3.36 L, Hgb 10.5 L, Hct 31.7 L, MCV 94.3 H, MCH 31.3, MCHC 33.1, RDW Std Deviation 47.7 H, RDW Coeff of Flavio 13.8, Plt Count 134 L, MPV 9.7, Immature Gran % (Auto) 0.300, Neut % (Auto) 53.3, Lymph % (Auto) 26.3, [place] % (Auto) 16.2 H, Eos % (Auto) 2.8, Baso % (Auto) 1.1 H, Absolute Neuts (auto) 1.9 L, Absolute Lymphs (auto) 0.94, Nucleated RBC % 0, PT 15.4 H, INR 1.2, APTT 43.7 H, Sodium 139, Potassium 4.2, Chloride 110 H, Carbon Dioxide 23.0, Anion Gap 6, BUN 36 H, Creatinine 1.73 H, Estim Creat Clear Calc 35.51, Est GFR (MDRD) Af Amer 49 L, Est GFR (MDRD) Non-Af 40 L, BUN/Creatinine Ratio 20.8 H, Glucose 135 H, Hemoglobin A1c 6.8 H, Calcium 8.6, Phosphorus 3.3, Magnesium 2.0, Total Bilirubin 0.90, AST 62 H, ALT 62 H, Alkaline Phosphatase 170 H, Total Protein 6.8, Albumin 2.8 L, Globulin 4.0, Albumin/Globulin Ratio 0.7 L, TSH 0.92 05/05/23 06:31: POC Glucose 128 H Micro: Microbiology 05/04/23 13:09 Nasal Secretion SARS-CoV-2 Antigen (Rapid) - Final 05/04/23 11:30 Stool Stool Occult Blood (AKIN) - Final Occult Blood Positive Physical Exam Const alert, oriented x3 and no apparent distress General Appearance: cooperative HEENT normocephalic, head/scalp atraumatic, moist oral mucous membranes, oropharynx normal and gingiva normal Eyes PERRL and EOMs intact bilaterally Neck no lymphadenopathy, supple and no JVD Lymph Lymphatic: no lymphadenopathy noted and no lymphedema noted Resp normal respiratory effort, normal air movement and clear to auscultation bilaterally Cardio regular rate, regular rhythm, S1 normal heart sound, S2 normal heart sound and no murmurs GI normal to inspection, nondistended, normoactive bowel sounds, soft to palpation, non-tender and non-distended GI Narrative: obese abdomen Extremity normal capillary refill, no clubbing, cyanosis or edema and no calf tenderness Skin General Skin Exam: no breakdown Neuro CN's II-XII intact bilaterally, no focal motor deficits, no sensory deficits noted and deep tendon reflexes 2+ bilaterally Motor Exam: strength 5/5 throughout and general weakness Psych thought process normal, cooperative and affect normal Appearance: appropriate Assessment & Plan Assessment/Plan (1) GI bleeding: QUALIFIERS: GI bleed type/associated pathology: unspecified peptic ulcer Qualified Code(s): K27.4 - Chronic or unspecified peptic ulcer, site unspecified, with hemorrhage PLAN: Plan #Acute GI bleed * hb is ~ 10 today * on IV pantoprazole. Stool for occult blood was positive * had EGD today which showed single bleeding angiodysplastic lesion which was injected and treated with a heater probe and a single duodenal polyp which was resected and retrieved * started on diet. Continue PPI * #Acute on chronic anemia: Hb is ~ 10 as above. Likely due to GI bleed. Management as above #Pancytopenia: WBC is 3.4 and platelets are 134 today. Was 142 yesterday and baseline is around 190. Hemoglobin is 10. Will monitor closely and work-up further as needed. #Debility and weakness: PT/OT on board. Fall precautions. Says he thinks he will need placement as he is too weak to go home. Case management on board #MACHELLE: on BIPAP #HFpEF: on lasix. Has known EF of 65%. Not in exacerbation #History of afib: S/p ablation and cardioversion. On amiodarone. Eliquis held due to GI bleed and positive stool for occult blood. To resume when okay with GI. #Type 2 diabetes mellitus: On Lantus 28 units daily. Trulicity held on admission. Insulin Sliding scale. Checks ACHS. A1C is 6.8 #CKD 3: Cr is 1.73 which is around her baseline. Will monitor. #Restless leg syndrome: On Mirapex #BPH: On finasteride #Hyperlipidemia: On statin #Hypertension: On metoprolol and hydralazine DVT prophylaxis: SCDs Charges/Coding Visit Charges Inpatient E&M: 13697 Subs Hosp L2
--- NOTE | 2023-05-05 15:31 | CASEMGMT ---
SW/CM Assessment SW introduced self and role at [facility]. Pt and present in the room at this time. Pt reports he has had difficulty ambulating and taking care of ADL's the past week and a half. Pt is requesting to go to SNF for additional therapy and assistance. Care providers, pharmacy, and demographics verified/updated at this time. PCP: Dr Shrestha Specialists: Yoga Teacher Therese Rehman-INFORMATION STRATEGIST/Dr Quiroz/Dr Tanner-pulm, Dr Potter-onc, Dr Field-neph, Dr Kahn-rheum. Preferred Pharmacy: [facility] Insurance: MCR, [place] Prescription Benefit:?Yes Living Will/HPOA:?Has both LW and HCPOA, which is his , Coby LNOK: , Coby. Dtr, Na. Son, Arnel Living Arrangements: Lives w/his in condo w/basement w/2 steps to enter. Pt states does not have to go to the basement. Pt reports he was independent prior to the past 2 weeks. Transportation:? does most of the driving. Pt reports he has not been driving recently DME: States has the following DME:?built-in shower seat, walker, rollator, lift chair, rails/grab bars, BIPAP from [employer], pulse ox, functioning glucometer w/supplies. Pt was provided w/medical alert info in Sep, but states they did not get one and she is interested in info again. Same provided at this time. states no need for further DME at this time.? HHC/SNF: Hx going to [facility] (pt was just there in October of this year). [facility] HHC in the past. Pt is requesting to go to [facility] for additional therapy/assistance. Patient reports debility in the past 2 weeks. Pt is requesting SNF due to weakness and needs and reports is on dialysis and frequently not home/unable to assist. PLAN: Pt plans to d/c to [place] pending acceptance. Jennifer Irby PLSQL DEVELOPER, DEMONSTRATOR ELECTRIC GAS APPLIANCES
--- NOTE | 2023-05-05 15:53 | CASEMGMT ---
Social Work Pt is requesting SNF placement and PT/OT indicates additional therapy needed. SW provided patient with a list of jail facility providers including quality and resource use data and consistent with patient?s preferred geographic region, medical needs, and insurance network were provided from the [facility] Guide. Patient and are requesting [facility], referral sent via careport. Jennifer Irby MSW, LICENSED OCCUPATIONAL THERAPY ASSISTANT
--- NOTE | 2023-05-05 16:16 | CHAPLAIN ---
Type of Pastoral Visit _x__ Initial Visit ___ Follow-up Visit ___ On-call Visit ___ General Patient Visit ___ Spiritual Assessment ___ Family Conference ___ Bereavement ___ Rapid Response ___ Code Blue ___ Other (describe below) Pastoral Care Referral From _x__ Patient ___ Family ___ Nurse ___ Physician ___ Agricultural Researcher ___ Cleaner Housekeeping ___ Other (describe below) Sacrament/Intervention _x__ Active listening ___ Anointing ___ Religious ___ Bereavement ___ Communion ___ Ariadna exploration ___ ___ Life review _x__ Prayer ___ Reconciliation ___ Sacrament of Sick _x__ Supportive presence ___ Wedding ___ Other (describe below) Pastoral Comments this patient always has welcomed spiritual care support and visits from this jail manager; pt gives updates and shares current situation; spouse had just arrived at this time of visit too; both welcome prayer and presence
[2023-05-05 16:42] LABS: Bedside Glucose 120 mg/dL (74-106)
[2023-05-05] MEDS: Insulin Lispro 100 UNIT/ML INSULN.PEN SC (16:45)
[2023-05-05 17:00] LABS: Bedside Glucose 164 mg/dL (74-106)
[2023-05-05] MEDS: Pramipexole Di-HCl 1 MG Tablet 2 MG PO (21:19)
[2023-05-05] MEDS: Atorvastatin Calcium 10 MG Tablet PO (21:19)
[2023-05-05] MEDS: hydrALAZINE 50 MG Tablet 75 MG PO (21:19)
[2023-05-05] MEDS: 0.9% Saline Lock 10 ML Syringe IV (21:19)
[2023-05-05] MEDS: PROGESTERONE, MICRONIZED 100 MG CAPSULE PO (21:21)
[2023-05-05 22:19] LABS: Bedside Glucose 174 mg/dL (74-106)
[2023-05-06] VITALS (9 sets, daily range): BP systolic 119–156; BP diastolic 55–63; PULSE 70–79; RESP 16–20; TEMP 36.2–36.8; O2SAT 94–99
[2023-05-06 07:09] LABS: Absolute Lymphocyte Count 0.97 X10^3/uL (0.83-4.51); Absolute Neutrophil Count 1.8 X10^3/uL (2.0-7.7); Basophil# 0.03 X10^3/uL; Basophil% 0.9 % (0-1); Eosinophils% 2.9 % (0-5); Hematocrit 31.6 % (40-54); Hemoglobin 9.8 g/dL (13.0-16.5); Lymphocyte # 0.97 X10^3/ul (0.83-4.51); Lymphocyte % 28.4 % (19-41); Mean Corpuscular Hgb 29.8 pg (27.0-32.0); Mean Platelet Vol. 9.7 fl (6.2-12.0); Monocyte# 0.48 X10^3/uL; Monocyte% 14.1 % (0-10); NRBC Flagged by Analyzer 0 % (0-5); Neutrophil # 1.81 X10^3/uL (2.7-7.7); Neutrophil % 53.1 % (47-70); Platelet Count 124 K/mm3 (150-450); RBC Distribution Width CV 13.7 % (11.6-14.6); RBC Distribution Width SD 48.7 fl (35.1-43.9); Red Blood Count 3.29 M/mm3 (4.6-6.2); White Blood Count 3.4 K/mm3 (4.4-11.0)
[2023-05-06 07:20] LABS: Bedside Glucose 143 mg/dL (74-106)
[2023-05-06 07:46] LABS: Anion Gap 5 (5-15); BUN 36 mg/dL (7-18); BUN/Creat Ratio 21.4 RATIO (10-20); Calcium,Total 8.4 mg/dL (8.5-10.1); Chloride 107 mmol/L (98-107); Creatinine, Serum 1.68 mg/dL (0.70-1.30); EST Glomerular Filtration Rate 42 mL/min (>60); Est Glom Filt Rate - Afr Amer 50 mL/min (>60); Estimated Creatinine Clearance 36.57 ml/min; Glucose 154 mg/dL (74-106); Potassium 4.4 mmol/L (3.5-5.1); Sodium Level 136 mmol/L (136-145)
[2023-05-06] MEDS: Potassium Chloride Oral Tablet 20 MEQ PO (07:54)
[2023-05-06] MEDS: hydrALAZINE 50 MG Tablet 75 MG PO ×2 (10:20→21:37)
[2023-05-06] MEDS: Amiodarone 200 MG Tablet PO (10:21)
[2023-05-06] MEDS: Furosemide 40 MG Tablet 60 MG PO (10:23)
[2023-05-06] MEDS: Finasteride 5 MG Tablet PO (10:24)
[2023-05-06] MEDS: Sertraline 50 MG Tablet 25 MG PO (10:25)
[2023-05-06] MEDS: Metoprolol(XL)Succ 25 MG Tablet 12.5 MG PO (10:25)
[2023-05-06] MEDS: Insulin Glargine-YFGN 100 UNIT/ML Pen 28 UNIT SC (10:28)
--- NOTE | 2023-05-06 10:29 | CASEMGMT ---
Discharge Planning Patient has been accepted by [facility]. SW updated. Meghan Trujillo, Discharge Planning Asst.
[2023-05-06] MEDS: Insulin Lispro 100 UNIT/ML INSULN.PEN SC ×2 (11:21→16:42)
--- NOTE | 2023-05-06 12:21 | PCM.PROGNOTE ---
Subjective Subjective Patient seen and examined. He had no active complaints. He had an uneventful night. Review of systems is otherwise negative. He has remained hemodynamically stable. He had EGD yesterday which showed a single bleeding angiodysplastic vessel which was cauterised. Objective Data Objective Data Vital Signs: Vital Signs Temp Pulse Resp BP Pulse Ox O2 Del Method O2 Flow Rate 97.8 F 79 16 123/58 H 97 Room Air 2 05/06/23 07:46 05/06/23 10:25 05/06/23 07:46 05/06/23 07:46 05/06/23 07:46 05/06/23 07:46 05/06/23 03:31 Oxygen Flow Rate (L/min) 2 Oxygen Delivery Method Room Air Weight: 266 lb 5.094 oz Body Mass Index (BMI) 36.1 Intake & Output: Intake and Output for Last 24 Hours 05/04/23 05/05/23 05/06/23 23:59 23:59 23:59 Intake Total 500 / 750 281 / 281 Balance 500 / 750 281 / 281 Lab / Micro Data 05/06/23 06:30 05/06/23 06:30 Labs: Laboratory Results - last 24 hr 05/05/23 12:47: POC Glucose 120 H 05/05/23 16:42: POC Glucose 164 H 05/05/23 21:17: POC Glucose 174 H 05/06/23 06:30: WBC 3.4 L, RBC 3.29 L, Hgb 9.8 L, Hct 31.6 L, MCV 96.0 H, MCH 29.8, MCHC 31.0 L D, RDW Std Deviation 48.7 H, RDW Coeff of Flavio 13.7, Plt Count 124 L, MPV 9.7, Immature Gran % (Auto) 0.600, Neut % (Auto) 53.1, Lymph % (Auto) 28.4, [place] % (Auto) 14.1 H, Eos % (Auto) 2.9, Baso % (Auto) 0.9, Absolute Neuts (auto) 1.8 L, Absolute Lymphs (auto) 0.97, Nucleated RBC % 0, Sodium 136, Potassium 4.4, Chloride 107, Carbon Dioxide 24.0, Anion Gap 5, BUN 36 H, Creatinine 1.68 H, Estim Creat Clear Calc 36.57, Est GFR (MDRD) Af Amer 50 L, Est GFR (MDRD) Non-Af 42 L, BUN/Creatinine Ratio 21.4 H, Glucose 154 H, Calcium 8.4 L 05/06/23 06:35: POC Glucose 143 H Micro: Microbiology 05/04/23 13:09 Nasal Secretion SARS-CoV-2 Antigen (Rapid) - Final 05/04/23 11:30 Stool Stool Occult Blood (AKIN) - Final Occult Blood Positive Physical Exam Const alert, oriented x3, no apparent distress and well nourished; Negative for average body habitus or healthy appearing General Appearance: cooperative HEENT normocephalic, head/scalp atraumatic, moist oral mucous membranes, oropharynx normal and gingiva normal Eyes PERRL, EOMs intact bilaterally and conjunctivae normal Eyes Narrative: No scleral icterus Neck no lymphadenopathy, supple, no JVD and no carotid bruits Neck Narrative: Trachea midline, neck is short and thick with redundant tissue anteriorly Lymph Lymphatic: no lymphadenopathy noted and no lymphedema noted Resp normal respiratory effort, normal air movement, no retractions, no use of accessory muscles and clear to auscultation bilaterally Resp Narrative: Diminished but clear Auscultation: Negative for rales, rhonchi or wheezes Cardio regular rate, regular rhythm, S1 normal heart sound, S2 normal heart sound, no murmurs, no rub, no gallops and no clicks GI normal to inspection, nondistended, normoactive bowel sounds, soft to palpation, non-tender and non-distended GI Narrative: obese abdomen Extremity normal capillary refill, no clubbing, cyanosis or edema and no calf tenderness Extremity Narrative: Pedal pulses are 2 Skin No no wounds, No skin turgor normal, No no jaundice, No no petechiae and No no mottling Skin Narrative: Scattered changes consistent with sun exposure and scattered ecchymosis General Skin Exam: no breakdown Neuro oriented x3, CN's II-XII intact bilaterally, moves all extremities, no focal motor deficits, no sensory deficits noted and deep tendon reflexes 2+ bilaterally Neuro Narrative: Significant generalized weakness with proximal musculature being weaker than distal musculature consistent with sarcopenia Speech: speech normal Motor Exam: strength 5/5 throughout and general weakness Psych thought process normal, cooperative and affect normal Psych Narrative: Affect is somewhat flattened mood seems mildly depressed Appearance: appropriate Mood & Affect: depressed Assessment & Plan Assessment/Plan (1) GI bleeding: QUALIFIERS: GI bleed type/associated pathology: unspecified peptic ulcer Qualified Code(s): K27.4 - Chronic or unspecified peptic ulcer, site unspecified, with hemorrhage PLAN: Plan #Acute GI bleed Hb is 9.8 today. on IV pantoprazole. Stool for occult blood was positive had EGD yesterday which showed single bleeding angiodysplastic lesion which was injected and treated with a heater probe and a single duodenal polyp which was resected and retrieved started on diet. Continue PPI wilkl switch PPI to PO #Acute on chronic anemia: Hb is 9.8 today. Baseline iS ~ 11. Likely due to GI bleed. Management as above #Pancytopenia: WBC remains 3.4 and platelets are down to 124 today. baseline platelets are around 190, and was 134 yesterday. Hemoglobin is 10. Will monitor closely and work-up further as needed. #Debility and weakness: PT/OT on board. Fall precautions. Says he thinks he will need placement as he is too weak to go home. Case management on board #MACHELLE: on BIPAP #HFpEF: on lasix. Has known EF of 65%. Not in exacerbation #History of afib: S/p ablation and cardioversion. On amiodarone. Eliquis held due to GI bleed and positive stool for occult blood. To resume when okay with GI. #Type 2 diabetes mellitus: On Lantus 28 units daily. Trulicity held on admission. Insulin Sliding scale. Checks ACHS. A1C is 6.8 #CKD 3: Cr is 1.68 which is around his baseline. Will monitor. #Restless leg syndrome: On Mirapex #BPH: On finasteride #Hyperlipidemia: On statin #Hypertension: On metoprolol and hydralazine DVT prophylaxis: SCDs Disposition: awaiting placement. Wants to go to [facility]. Case management on board. Charges/Coding Visit Charges Inpatient E&M: 08122 Subs Hosp L2
[2023-05-06 12:33] LABS: Bedside Glucose 207 mg/dL (74-106)
--- NOTE | 2023-05-06 15:37 | CASEMGMT ---
Social Work SW notified patient and that [facility] is willing to accept patient. Pt's reports she may be able to transport patient. Plan: Pt to d/c to [facility] when medically ready. Jennifer Irby LENDING ADVISOR, TAR MAN
--- NOTE | 2023-05-06 16:49 | EX.PCM.PN.GI ---
Subjective Subjective Patient is doing well without any complaints. He denies any abdominal pain. He denies any chest pain or shortness of breath. He underwent an upper endoscopy yesterday. And was discovered to have another bleeding angiodysplastic lesion in his stomach along the greater curvature. Objective Data Objective Data Vital Signs: Vital Signs Temp Pulse Resp BP Pulse Ox O2 Del Method O2 Flow Rate 97.1 F L 70 16 119/55 L 99 Room Air 2 05/06/23 14:54 05/06/23 14:54 05/06/23 14:54 05/06/23 14:54 05/06/23 14:54 05/06/23 14:54 05/06/23 03:31 Oxygen Flow Rate (L/min) 2 Oxygen Delivery Method Room Air Weight: 266 lb 5.094 oz Body Mass Index (BMI) 36.1 Intake & Output: Intake and Output for Last 24 Hours 05/04/23 05/05/23 05/06/23 23:59 23:59 23:59 Intake Total 500 / 750 281 / 281 Balance 500 / 750 281 / 281 Lab / Micro Data 05/06/23 06:30 05/06/23 06:30 Labs: Laboratory Results - last 24 hr 05/05/23 16:42: POC Glucose 164 H 05/05/23 21:17: POC Glucose 174 H 05/06/23 06:30: WBC 3.4 L, RBC 3.29 L, Hgb 9.8 L, Hct 31.6 L, MCV 96.0 H, MCH 29.8, MCHC 31.0 L D, RDW Std Deviation 48.7 H, RDW Coeff of Flavio 13.7, Plt Count 124 L, MPV 9.7, Immature Gran % (Auto) 0.600, Neut % (Auto) 53.1, Lymph % (Auto) 28.4, [place] % (Auto) 14.1 H, Eos % (Auto) 2.9, Baso % (Auto) 0.9, Absolute Neuts (auto) 1.8 L, Absolute Lymphs (auto) 0.97, Nucleated RBC % 0, Sodium 136, Potassium 4.4, Chloride 107, Carbon Dioxide 24.0, Anion Gap 5, BUN 36 H, Creatinine 1.68 H, Estim Creat Clear Calc 36.57, Est GFR (MDRD) Af Amer 50 L, Est GFR (MDRD) Non-Af 42 L, BUN/Creatinine Ratio 21.4 H, Glucose 154 H, Calcium 8.4 L 05/06/23 06:35: POC Glucose 143 H 05/06/23 11:19: POC Glucose 207 H Micro: Microbiology 05/04/23 13:09 Nasal Secretion SARS-CoV-2 Antigen (Rapid) - Final 05/04/23 11:30 Stool Stool Occult Blood (AKIN) - Final Occult Blood Positive Physical Exam Const alert, oriented x3, no apparent distress and well nourished; Negative for average body habitus or healthy appearing General Appearance: cooperative HEENT normocephalic, head/scalp atraumatic, moist oral mucous membranes, oropharynx normal and gingiva normal Eyes PERRL, EOMs intact bilaterally and conjunctivae normal Eyes Narrative: No scleral icterus Neck no lymphadenopathy, supple, no JVD and no carotid bruits Neck Narrative: Trachea midline, neck is short and thick with redundant tissue anteriorly Lymph Lymphatic: no lymphadenopathy noted and no lymphedema noted Resp normal respiratory effort, normal air movement, no retractions, no use of accessory muscles and clear to auscultation bilaterally Resp Narrative: Diminished but clear Auscultation: Negative for rales, rhonchi or wheezes Cardio regular rate, regular rhythm, S1 normal heart sound, S2 normal heart sound, no murmurs, no rub, no gallops and no clicks GI normal to inspection, nondistended, normoactive bowel sounds, soft to palpation, non-tender and non-distended GI Narrative: obese abdomen Extremity normal capillary refill, no clubbing, cyanosis or edema and no calf tenderness Extremity Narrative: Pedal pulses are 2 Skin No no wounds, No skin turgor normal, No no jaundice, No no petechiae and No no mottling Skin Narrative: Scattered changes consistent with sun exposure and scattered ecchymosis General Skin Exam: no breakdown Neuro oriented x3, CN's II-XII intact bilaterally, moves all extremities, no focal motor deficits, no sensory deficits noted and deep tendon reflexes 2+ bilaterally Neuro Narrative: Significant generalized weakness with proximal musculature being weaker than distal musculature consistent with sarcopenia Speech: speech normal Motor Exam: strength 5/5 throughout and general weakness Psych thought process normal, cooperative and affect normal Psych Narrative: Affect is somewhat flattened mood seems mildly depressed Appearance: appropriate Mood & Affect: depressed Assessment & Plan Assessment/Plan (1) GI bleeding: QUALIFIERS: GI bleed type/associated pathology: unspecified peptic ulcer Qualified Code(s): K27.4 - Chronic or unspecified peptic ulcer, site unspecified, with hemorrhage (2) Anemia: QUALIFIERS: Anemia type: other cause Other causes of anemia: acute posthemorrhagic Qualified Code(s): D62 - Acute posthemorrhagic anemia PLAN: Plan 83-year-old G woman with past medical history of upper GI bleed secondary to gastric ulcers and 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 He also has a history of CAD, wide-complex tachycardia, sick sinus syndrome status post permanent pacemaker. I had a long talk with his and explained to her that likely make an and he does sickly second toe is heart disease is and the fact that he is on anticoagulation and makes him more likely to bleed from these angiodysplastic lesions. He had a capsule endoscopy in the past and he will need another one when he gets discharged from the hospital. Charges/Coding Visit Charges Inpatient E&M: 74396 Subs Hosp L3
[2023-05-06 17:04] LABS: Bedside Glucose 159 mg/dL (74-106)
[2023-05-06] MEDS: Pramipexole Di-HCl 1 MG Tablet 2 MG PO (21:36)
[2023-05-06] MEDS: PROGESTERONE, MICRONIZED 100 MG CAPSULE PO (21:36)
[2023-05-06] MEDS: Atorvastatin Calcium 10 MG Tablet PO (21:37)
[2023-05-06] MEDS: Fluticasone 0.05% 1 SPRAY NASAL.SRY 2 SPRAY NASAL (21:37)
[2023-05-06 22:36] LABS: Bedside Glucose 205 mg/dL (74-106)
[2023-05-07 03:19] VITALS: BP 124/56; PULSE 70; RESP 18; TEMP 36.9; O2SAT 99
[2023-05-07] MEDS: Insulin Lispro 100 UNIT/ML INSULN.PEN SC ×2 (06:41→11:45)
[2023-05-07 06:46] LABS: Absolute Neutrophil Count 2.4 X10^3/uL (2.0-7.7); Basophil# 0.04 X10^3/uL; Eosinophil# 0.12 X10^3/uL; Hematocrit 33.1 % (40-54); Hemoglobin 10.3 g/dL (13.0-16.5); Lymphocyte % 20.1 % (19-41); Mean Corp Hgb Conc 31.1 g/dL (32-36); Mean Corpuscular Hgb 29.4 pg (27.0-32.0); Mean Corpuscular Volume 94.6 fL (80-94); Mean Platelet Vol. 9.6 fl (6.2-12.0); Monocyte# 0.63 X10^3/uL; Monocyte% 15.8 % (0-10); NRBC Flagged by Analyzer 0 % (0-5); Neutrophil # 2.37 X10^3/uL (2.7-7.7); Neutrophil % 59.6 % (47-70); Platelet Count 136 K/mm3 (150-450); RBC Distribution Width CV 13.5 % (11.6-14.6); RBC Distribution Width SD 46.5 fl (35.1-43.9)
[2023-05-07 07:01] LABS: Bedside Glucose 176 mg/dL (74-106)
[2023-05-07 07:39] LABS: Anion Gap 7 (5-15); BUN 34 mg/dL (7-18); BUN/Creat Ratio 18.3 RATIO (10-20); Calcium,Total 8.7 mg/dL (8.5-10.1); Chloride 106 mmol/L (98-107); Creatinine, Serum 1.86 mg/dL (0.70-1.30); EST Glomerular Filtration Rate 37 mL/min (>60); Est Glom Filt Rate - Afr Amer 45 mL/min (>60); Estimated Creatinine Clearance 33.03 ml/min; Glucose 174 mg/dL (74-106); Potassium 4.4 mmol/L (3.5-5.1); Sodium Level 135 mmol/L (136-145)
[2023-05-07 08:05] VITALS: BP 123/58; PULSE 70; RESP 16; TEMP 36.6; O2SAT 97
[2023-05-07 08:13] VITALS: O2SAT 93
[2023-05-07] MEDS: Potassium Chloride Oral Tablet 20 MEQ PO (08:14)
[2023-05-07 09:47] VITALS: BP 123/58; PULSE 70
[2023-05-07] MEDS: Metoprolol(XL)Succ 25 MG Tablet 12.5 MG PO (09:47)
[2023-05-07] MEDS: Finasteride 5 MG Tablet PO (09:47)
[2023-05-07] MEDS: Sertraline 50 MG Tablet 25 MG PO (09:47)
[2023-05-07] MEDS: Amiodarone 200 MG Tablet PO (09:47)
[2023-05-07 09:48] VITALS: BP 123/58; PULSE 70
[2023-05-07] MEDS: Furosemide 40 MG Tablet 60 MG PO (09:48)
[2023-05-07] MEDS: hydrALAZINE 50 MG Tablet 75 MG PO (09:48)
[2023-05-07] MEDS: Fluticasone 0.05% 1 SPRAY NASAL.SRY 2 SPRAY NASAL (09:50)
[2023-05-07] MEDS: Insulin Glargine-YFGN 100 UNIT/ML Pen 28 UNIT SC (09:52)
--- NOTE | 2023-05-07 10:00 | EX.PCM.PN.GI ---
Subjective Subjective Patient denied any bleeding overnight. Objective Data Objective Data Vital Signs: Vital Signs Temp Pulse Resp BP Pulse Ox O2 Del Method O2 Flow Rate 97.9 F 70 16 123/58 H 96 Room Air 2 05/07/23 08:05 05/07/23 09:48 05/07/23 08:05 05/07/23 09:48 05/07/23 10:14 05/07/23 08:13 05/07/23 03:19 Oxygen Flow Rate (L/min) 2 Oxygen Delivery Method Room Air Weight: 266 lb 5.094 oz Body Mass Index (BMI) 36.1 Intake & Output: Intake and Output for Last 24 Hours 05/05/23 05/06/23 05/07/23 23:59 23:59 23:59 Intake Total 281 / 281 500 / 500 500 / 500 Balance 281 / 281 500 / 500 500 / 500 Lab / Micro Data 05/07/23 06:35 05/07/23 06:35 Labs: Laboratory Results - last 24 hr 05/06/23 16:40: POC Glucose 159 H 05/06/23 21:31: POC Glucose 205 H 05/07/23 06:35: WBC 4.0 L, RBC 3.50 L, Hgb 10.3 L, Hct 33.1 L, MCV 94.6 H, MCH 29.4, MCHC 31.1 L, RDW Std Deviation 46.5 H, RDW Coeff of Flavio 13.5, Plt Count 136 L, MPV 9.6, Immature Gran % (Auto) 0.500, Neut % (Auto) 59.6, Lymph % (Auto) 20.1, [place] % (Auto) 15.8 H, Eos % (Auto) 3.0, Baso % (Auto) 1.0, Absolute Neuts (auto) 2.4, Absolute Lymphs (auto) 0.80 L, Nucleated RBC % 0, Sodium 135 L, Potassium 4.4, Chloride 106, Carbon Dioxide 22.0, Anion Gap 7, BUN 34 H, Creatinine 1.86 H, Estim Creat Clear Calc 33.03, Est GFR (MDRD) Af Amer 45 L, Est GFR (MDRD) Non-Af 37 L, BUN/Creatinine Ratio 18.3, Glucose 174 H, Calcium 8.7 05/07/23 06:40: POC Glucose 176 H 05/07/23 11:44: POC Glucose 210 H Micro: Microbiology 05/07/23 12:05 Nasal Secretion SARS-CoV-2 Antigen (Rapid) - Final 05/04/23 13:09 Nasal Secretion SARS-CoV-2 Antigen (Rapid) - Final 05/04/23 11:30 Stool Stool Occult Blood (AKIN) - Final Occult Blood Positive Physical Exam Const alert, oriented x3, no apparent distress and well nourished; Negative for average body habitus or healthy appearing General Appearance: cooperative HEENT normocephalic, head/scalp atraumatic, moist oral mucous membranes, oropharynx normal and gingiva normal Eyes PERRL, EOMs intact bilaterally and conjunctivae normal Eyes Narrative: No scleral icterus Neck no lymphadenopathy, supple, no JVD and no carotid bruits Neck Narrative: Trachea midline, neck is short and thick with redundant tissue anteriorly Lymph Lymphatic: no lymphadenopathy noted and no lymphedema noted Resp normal respiratory effort, normal air movement, no retractions, no use of accessory muscles and clear to auscultation bilaterally Resp Narrative: Diminished but clear Auscultation: Negative for rales, rhonchi or wheezes Cardio regular rate, regular rhythm, S1 normal heart sound, S2 normal heart sound, no murmurs, no rub, no gallops and no clicks GI normal to inspection, nondistended, normoactive bowel sounds, soft to palpation, non-tender and non-distended GI Narrative: obese abdomen Extremity normal capillary refill, no clubbing, cyanosis or edema and no calf tenderness Extremity Narrative: Pedal pulses are 2 Skin No no wounds, No skin turgor normal, No no jaundice, No no petechiae and No no mottling Skin Narrative: Scattered changes consistent with sun exposure and scattered ecchymosis General Skin Exam: no breakdown Neuro oriented x3, CN's II-XII intact bilaterally, moves all extremities, no focal motor deficits, no sensory deficits noted and deep tendon reflexes 2+ bilaterally Neuro Narrative: Significant generalized weakness with proximal musculature being weaker than distal musculature consistent with sarcopenia Speech: speech normal Motor Exam: strength 5/5 throughout and general weakness Psych thought process normal, cooperative and affect normal Psych Narrative: Affect is somewhat flattened mood seems mildly depressed Appearance: appropriate Mood & Affect: depressed Assessment & Plan Assessment/Plan (1) GI bleeding: QUALIFIERS: GI bleed type/associated pathology: unspecified peptic ulcer Qualified Code(s): K27.4 - Chronic or unspecified peptic ulcer, site unspecified, with hemorrhage (2) Anemia: QUALIFIERS: Anemia type: other cause Other causes of anemia: acute posthemorrhagic Qualified Code(s): D62 - Acute posthemorrhagic anemia PLAN: Plan 83-year-old G woman with past medical history of upper GI bleed secondary to gastric ulcers and 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 He also has a history of CAD, wide-complex tachycardia, sick sinus syndrome status post permanent pacemaker. I had a long talk with his and explained to her that likely make an and he does sickly second toe is heart disease is and the fact that he is on anticoagulation and makes him more likely to bleed from these angiodysplastic lesions. He had a capsule endoscopy in the past and he will need another one when he gets discharged from the hospital. Charges/Coding Visit Charges Inpatient E&M: 10164 Subs Hosp L2
[2023-05-07 10:14] VITALS: O2SAT 96
--- NOTE | 2023-05-07 11:14 | TREXTCAR_ITS ---
Diet Diet Order/Speech Therapy: 05/05/23 12:45 Diet: Full Liquid Type of Dietary Supplement:: Gabbie Kaba Is pt able to select menu?: Yes Routine Orders/Code Status Enema Type: Fleetz Enema Frequency: Daily PRN Suppository Type: Dulcolax 10mg Suppository Frequency: Daily PRN Therapies Weight Bearing: Weight bearing as tolerated Physical Therapy: Eval and Treat Occupational Therapy: Eval and Treat Problem/Diagnosis (1) GI bleeding: Status: Acute Code(s): K92.2 - Gastrointestinal hemorrhage, unspecified (2) Anemia: Status: Inactive Code(s): D64.9 - Anemia, unspecified Plan #Acute GI bleed * Hb is 9.8 today. * on IV pantoprazole. Stool for occult blood was positive * had EGD yesterday which showed single bleeding angiodysplastic lesion which was injected and treated with a heater probe and a single duodenal polyp which was resected and retrieved * started on diet. Continue PPI * wilkl switch PPI to PO * #Acute on chronic anemia: Hb is 9.8 today. Baseline iS ~ 11. Likely due to GI bleed. Management as above #Pancytopenia: WBC remains 3.4 and platelets are down to 124 today. baseline platelets are around 190, and was 134 yesterday. Hemoglobin is 10. Will monitor closely and work-up further as needed. #Debility and weakness: PT/OT on board. Fall precautions. Says he thinks he will need placement as he is too weak to go home. Case management on board #MACHELLE: on BIPAP #HFpEF: on lasix. Has known EF of 65%. Not in exacerbation #History of afib: S/p ablation and cardioversion. On amiodarone. Eliquis held due to GI bleed and positive stool for occult blood. To resume when okay with GI. #Type 2 diabetes mellitus: On Lantus 28 units daily. Trulicity held on admission. Insulin Sliding scale. Checks ACHS. A1C is 6.8 #CKD 3: Cr is 1.68 which is around his baseline. Will monitor. #Restless leg syndrome: On Mirapex #BPH: On finasteride #Hyperlipidemia: On statin #Hypertension: On metoprolol and hydralazine DVT prophylaxis: SCDs Disposition: awaiting placement. Wants to go to [facility]. Case management on board. Allergies/Procedures Done in Hospital Allergies hydrocodone bitartrate [From Vicodin] Adverse Reaction (Severe, Verified 05/04/23 09:04) Other sick hydroxyzine Adverse Reaction (Severe, Verified 05/04/23 09:04) Other CALLED DIZZINESS doxycycline Adverse Reaction (Intermediate, Verified 05/04/23 09:04) Shortness of breath (had CHF also, may not be true allergy Procedures: EGD Type of Care/Length of Stay Estimated LOS: Convalescent Care Less Than 30 days Type of Care Needed: Skilled Rehab Potential: Fair Prognosis: Fair Additional Orders/Day of Discharge Day of Discharge: 05/07/23 Dietary and Speech Recommendations Dietitian Recommendations/Changes: As medically able, rec GILBERT to CHO Controlled/ Sodium restricted diet d/t pmhx Rec 4 oz glucerna shake tid w/ medpass for increased nutrition if consumed. Discharge Plan Admission Admit Date/Time: 05/04/23 12:39 Primary Reason for Your Visit: GI bleed, weakness Attending Provider: Clarice Fontenot Primary Care Provider: Tosha Shrestha Consulting Providers: Claudine Field Instructions Patient Instructions: ED Weakness (Uncertain Cause) Discharge Orders/Prescriptions Prescriptions: Continued meclizine 25 mg tablet 25 mg PO TID PRN (Reason: dizziness) Qty: 90 0RF sennosides-docusate sodium [Stool Softener-Stimulant Laxat] 8.6-50 mg tablet 1 tab-cap PO DAILY PRN (Reason: constipation) Systane Complete 0.6 % drops 1 drp ophthalmic (eye) TID PRN (Reason: dry eyes) progesterone micronized 100 mg capsule 100 mg PO QHS Qty: 90 0RF pramipexole [Mirapex] 1 mg tablet 2 mg PO QHS Qty: 180 3RF famotidine 40 mg tablet 40 mg PO DAILY nitroglycerin 0.4 mg Tablet, Sublingual 0.4 mg sublingual Q5M PRN (Reason: Cardiac/Chest Pain) 30 Days Qty: 30 0RF acetaminophen 500 mg Tablet 1,000 mg PO Q8H PRN PRN (Reason: Pain) Qty: 30 0RF metoprolol succinate 25 mg tablet extended release 24 hr 12.5 mg PO DAILY hydralazine 50 mg tablet 75 mg PO BID sertraline 25 mg tablet 25 mg PO DAILY furosemide [Lasix] 40 mg tablet 60 mg PO DAILY Qty: 45 0RF finasteride 5 mg tablet 5 mg PO DAILY Qty: 90 3RF ergocalciferol (vitamin D2) 1,250 mcg (50,000 unit) capsule 50,000 unit PO QMONTH Qty: 14 1RF ferrous sulfate 325 mg (65 mg iron) tablet 325 mg PO TH Qty: 90 1RF Rx Instructions: only dulaglutide 4.5 mg/0.5 mL pen injector 4.5 mg SC .COMPLEX 90 Days Qty: 2 2RF Rx Instructions: 4.5 mg subcut every friday Eliquis 2.5 mg tablet 2.5 mg PO BID Qty: 180 3RF atorvastatin 10 mg tablet 10 mg PO QHS Qty: 90 3RF fluticasone propionate 50 mcg/actuation spray,suspension 2 spray intranasal DAILY Qty: 16 3RF (DME) pen needle, diabetic [BD Ultra-Fine Mini Pen Needle] 31 gauge x 3/16 needle See Rx Instructions .Route Qty: 100 4RF Rx Instructions: As directed amiodarone 200 mg tablet 200 mg PO DAILY Qty: 90 3RF potassium chloride 20 mEq tablet extended release 20 meq PO DAILY Qty: 90 3RF insulin glargine-yfgn [Semglee(insulin glarg-yfgn)Pen] 100 unit/mL (3 mL) insulin pen 28 unit SUBCUT DAILY 90 Days Qty: 25.2 1RF Referrals / Follow Up: Tosha Shrestha MD [Primary Care Provider] - Within 2 Weeks Jesus Becerra DO [Med Staff - Active Staff] - Within 2 Weeks Disposition Disposition (needs filled in before D/C Order can be placed): Intermediate Facility (1) GI bleeding Qualifiers: GI bleed type/associated pathology: unspecified peptic ulcer Qualified Code(s): K27.4 - Chronic or unspecified peptic ulcer, site unspecified, with hemorrhage (2) Anemia Qualifiers: Anemia type: other cause Other causes of anemia: acute posthemorrhagic Qualified Code(s): D62 - Acute posthemorrhagic anemia
--- NOTE | 2023-05-07 11:17 | DS.PCM_ITS ---
Providers Date of Admission: 05/04/23 Date of Discharge: 05/07/23 Primary Care Physician: Dr. Tosha Shrestha MD Consultations 05/04/23 15:10 Consult: Gastroenterology Routine Consulting Provider: [facility] Reason for Consult: GIB EMERGENT Consult: No MD Notified: Yes Date Notified: 05/04/23 Time Notified: 12:47 Method of Notification: Text Reason For Visit: GIB/DEBILITY Diagnosis Discharge Diagnosis (1) GI bleeding: Status: Acute Code(s): K92.2 - Gastrointestinal hemorrhage, unspecified Qualifiers: GI bleed type/associated pathology: unspecified peptic ulcer Qualified Code(s): K27.4 - Chronic or unspecified peptic ulcer, site unspecified, with hemorrhage (2) Anemia: Status: Inactive Code(s): D64.9 - Anemia, unspecified Qualifiers: Anemia type: other cause Other causes of anemia: acute posthemorrhagic Qualified Code(s): D62 - Acute posthemorrhagic anemia Plan #Acute GI bleed * Hb is 9.8 today. * on IV pantoprazole. Stool for occult blood was positive * had EGD yesterday which showed single bleeding angiodysplastic lesion which was injected and treated with a heater probe and a single duodenal polyp which was resected and retrieved * started on diet. Continue PPI * wilkl switch PPI to PO * #Acute on chronic anemia: Hb is 9.8 today. Baseline iS ~ 11. Likely due to GI bleed. Management as above #Pancytopenia: WBC remains 3.4 and platelets are down to 124 today. baseline platelets are around 190, and was 134 yesterday. Hemoglobin is 10. Will monitor closely and work-up further as needed. #Debility and weakness: PT/OT on board. Fall precautions. Says he thinks he will need placement as he is too weak to go home. Case management on board #MACHELLE: on BIPAP #HFpEF: on lasix. Has known EF of 65%. Not in exacerbation #History of afib: S/p ablation and cardioversion. On amiodarone. Eliquis held due to GI bleed and positive stool for occult blood. To resume when okay with GI. #Type 2 diabetes mellitus: On Lantus 28 units daily. Trulicity held on admission. Insulin Sliding scale. Checks ACHS. A1C is 6.8 #CKD 3: Cr is 1.68 which is around his baseline. Will monitor. #Restless leg syndrome: On Mirapex #BPH: On finasteride #Hyperlipidemia: On statin #Hypertension: On metoprolol and hydralazine DVT prophylaxis: SCDs Disposition: awaiting placement. Wants to go to [facility]. Case management on board. Medications at Discharge Home Medications finasteride 5 mg tablet 5 mg PO DAILY PROSTATE #90 tabs 11/03/18 meclizine 25 mg tablet 25 mg PO TID PRN dizziness #90 tabs 10/24/22 ergocalciferol (vitamin D2) 1,250 mcg (50,000 unit) capsule 50,000 unit PO QMONTH SUPPLEMENT #14 caps 11/29/22 ferrous sulfate 325 mg (65 mg iron) tablet 325 mg PO TH supplement #90 tabs 11/29/22 acetaminophen 500 mg tablet 1,000 mg (2 x 500 mg) PO Q8H PRN PRN Pain #30 tabs 12/03/22 nitroglycerin 0.4 mg sublingual tablet 0.4 mg sublingual Q5M PRN Cardiac/Chest Pain 30 days #30 tabs 12/03/22 metoprolol succinate 25 mg tablet,extended release 24 hr 12.5 mg PO DAILY BP 12/07/22 dulaglutide 4.5 mg/0.5 mL subcutaneous pen injector 4.5 mg (0.5 mL) subcut .COMPLEX DM 3 months #2 mL 12/09/22 furosemide 40 mg tablet (Lasix) 60 mg (1.5 x 40 mg) PO DAILY edema #45 tabs 12/24/22 apixaban 2.5 mg tablet (Eliquis) 2.5 mg PO BID thin #180 tabs 12/25/22 atorvastatin 10 mg tablet 10 mg PO QHS cholesterol #90 tabs 12/25/22 fluticasone propionate 50 mcg/actuation nasal spray,suspension 2 spray intranasal DAILY congestiom #16 grams 12/26/22 pen needle, diabetic 31 gauge x 3/16 (BD Ultra-Fine Mini Pen Needle) #100 ea 12/30/22 amiodarone 200 mg tablet 200 mg PO DAILY heart #90 tabs 01/02/23 potassium chloride 20 mEq tablet,extended release 20 meq PO DAILY sup #90 tabs 01/06/23 famotidine 40 mg tablet 40 mg PO DAILY reflux 02/04/23 hydralazine 50 mg tablet 75 mg PO BID blood pressure 02/04/23 pramipexole 1 mg tablet (Mirapex) 2 mg (2 x 1 mg) PO QHS RLS #180 tabs 02/04/23 progesterone micronized 100 mg capsule 100 mg PO QHS HORMONE #90 caps 02/04/23 propylene glycol 0.6 % eye drops (Systane Complete) 1 drp ophthalmic (eye) TID PRN dry eyes 02/04/23 sennosides 8.6 mg-docusate sodium 50 mg tablet (Stool Softener-Stimulant Laxative) 1 tab-cap PO DAILY PRN constipation 02/04/23 sertraline 25 mg tablet 25 mg PO DAILY DEPRESSION 02/04/23 insulin glargine-yfgn 100 unit/mL (3 mL) subcutaneous pen (Semglee (insulin glargine-yfgn) Pen) 28 unit (0.28 mL) subcut DAILY diabetes 90 days #25.2 mL 0 02/07/23 Hospital Course Operations None Procedures EGD Summary of Care Provided Minutes Spent on Discharge: 55 Hospital Course: Patient is an 82 year old male with a PMh as outlined who was admitted via the ED on 05/04/2023 with a complaint of generalised weakness and debility. he also had intermitted black tarry stools. He denied any shortness of breath. He was on eliquis at home. On admission, hemoglobin was 10.6 which it was down by about 1 g from January 2023. Chemistries were essentially unremarkable. Urinalysis showed no evidence of infection and chest x-ray showed no acute cardiopulmonary process. Stool for occult blood was positive. He was admitted and managed for debility and weakness as well as acute on chronic anemia due to GI bleed. Gastroenterology was consulted. He had EGD which showed a single bleeding ang iodysplastic lesion which was injected and treated with a heater probe and a single duodenal polyp which was resected and retrieved. He remained stable and was discharged to SNF on 05/07/2023. He is to follow up with his PCP and gastroenterology within 1-2 weeks. Per GI, he is ok to go back on eliquis. Patient seen and examined prior to discharge. He had no active complaints and had an uneventful night. Review of systems is otherwise negative. Labs and vitals reviewed. Home meds reviewed and reconciled. Physical Exam Const alert, oriented x3, no apparent distress and well nourished; Negative for average body habitus or healthy appearing Constitutional Narrative: General Appearance: cooperative, comfortable and well kempt HEENT normocephalic, head/scalp atraumatic, hearing grossly normal bilaterally, moist oral mucous membranes, oropharynx normal and gingiva normal Eyes PERRL, EOMs intact bilaterally and conjunctivae normal Eyes Narrative: No scleral icterus Neck no lymphadenopathy, supple, no JVD and no carotid bruits Lymph Lymphatic: no lymphadenopathy noted and no lymphedema noted Resp normal respiratory effort, normal air movement, no retractions, no use of accessory muscles and clear to auscultation bilaterally Resp Narrative: Diminished but clear Auscultation: Negative for rales, rhonchi or wheezes Cardio regular rate, regular rhythm, S1 normal heart sound, S2 normal heart sound, no murmurs, no rub, no gallops and no clicks GI normal to inspection, nondistended, normoactive bowel sounds, soft to palpation, non-tender and non-distended GI Narrative: obese abdomen Extremity normal capillary refill, no clubbing, cyanosis or edema and no calf tenderness Extremity Narrative: Pedal pulses are 2 Skin no rashes or lesions noted, No no wounds, No skin turgor normal, No no jaundice, No no petechiae and No no mottling General Skin Exam: no breakdown Neuro oriented x3, CN's II-XII intact bilaterally, moves all extremities, no focal motor deficits, no sensory deficits noted and deep tendon reflexes 2+ bilaterally Sensorium / Orientation: awake and alert Speech: speech normal Motor Exam: strength 5/5 throughout and general weakness Psych thought process normal, cooperative and affect normal Appearance: appropriate Weight / BMI Weight Weight: 266 lb 5.094 oz Body Mass Index (BMI) 36.1 ABG / Lab / Microbiology Data 05/07/23 06:35 05/07/23 06:35 Laboratory: Laboratory Results - last 24 hr 05/06/23 11:19: POC Glucose 207 H 05/06/23 16:40: POC Glucose 159 H 05/06/23 21:31: POC Glucose 205 H 05/07/23 06:35: WBC 4.0 L, RBC 3.50 L, Hgb 10.3 L, Hct 33.1 L, MCV 94.6 H, MCH 29.4, MCHC 31.1 L, RDW Std Deviation 46.5 H, RDW Coeff of Flavio 13.5, Plt Count 136 L, MPV 9.6, Immature Gran % (Auto) 0.500, Neut % (Auto) 59.6, Lymph % (Auto) 20.1, Mcculloch % (Auto) 15.8 H, Eos % (Auto) 3.0, Baso % (Auto) 1.0, Absolute Neuts (auto) 2.4, Absolute Lymphs (auto) 0.80 L, Nucleated RBC % 0, Sodium 135 L, Potassium 4.4, Chloride 106, Carbon Dioxide 22.0, Anion Gap 7, BUN 34 H, Creatinine 1.86 H, Estim Creat Clear Calc 33.03, Est GFR (MDRD) Af Amer 45 L, Est GFR (MDRD) Non-Af 37 L, BUN/Creatinine Ratio 18.3, Glucose 174 H, Calcium 8.7 05/07/23 06:40: POC Glucose 176 H Microbiology: Microbiology 05/04/23 13:09 Nasal Secretion SARS-CoV-2 Antigen (Rapid) - Final 05/04/23 11:30 Stool Stool Occult Blood (AKIN) - Final Occult Blood Positive D/C Instructions Discharge Diet: Low fat / Low cholesterol Discharge Activity: Return to Normal Activity Weight Bearing Status: Weight bearing as tolerated Call your doctor if you observe: Fever of 101 or Higher, Shortness of breath, Dizziness, Swelling in the ankles and Chest pain Meaningful Use Info Meaningful Use Diagnoses (Choose all that apply): None applicable Discharge Plan Admission Admit Date/Time: 05/04/23 12:39 Primary Reason for Your Visit: GI bleed, weakness Attending Provider: Clarice Fontenot Primary Care Provider: Tosha Shrestha Consulting Providers: Claudine Field Instructions Patient Instructions: ED Weakness (Uncertain Cause) Discharge Orders/Prescriptions Prescriptions: Continued meclizine 25 mg tablet 25 mg PO TID PRN (Reason: dizziness) Qty: 90 0RF sennosides-docusate sodium [Stool Softener-Stimulant Laxat] 8.6-50 mg tablet 1 tab-cap PO DAILY PRN (Reason: constipation) Systane Complete 0.6 % drops 1 drp ophthalmic (eye) TID PRN (Reason: dry eyes) progesterone micronized 100 mg capsule 100 mg PO QHS Qty: 90 0RF pramipexole [Mirapex] 1 mg tablet 2 mg PO QHS Qty: 180 3RF famotidine 40 mg tablet 40 mg PO DAILY nitroglycerin 0.4 mg Tablet, Sublingual 0.4 mg sublingual Q5M PRN (Reason: Cardiac/Chest Pain) 30 Days Qty: 30 0RF acetaminophen 500 mg Tablet 1,000 mg PO Q8H PRN PRN (Reason: Pain) Qty: 30 0RF metoprolol succinate 25 mg tablet extended release 24 hr 12.5 mg PO DAILY hydralazine 50 mg tablet 75 mg PO BID sertraline 25 mg tablet 25 mg PO DAILY furosemide [Lasix] 40 mg tablet 60 mg PO DAILY Qty: 45 0RF finasteride 5 mg tablet 5 mg PO DAILY Qty: 90 3RF ergocalciferol (vitamin D2) 1,250 mcg (50,000 unit) capsule 50,000 unit PO QMONTH Qty: 14 1RF ferrous sulfate 325 mg (65 mg iron) tablet 325 mg PO TH Qty: 90 1RF Rx Instructions: only dulaglutide 4.5 mg/0.5 mL pen injector 4.5 mg SC .COMPLEX 90 Days Qty: 2 2RF Rx Instructions: 4.5 mg subcut every friday Eliquis 2.5 mg tablet 2.5 mg PO BID Qty: 180 3RF atorvastatin 10 mg tablet 10 mg PO QHS Qty: 90 3RF fluticasone propionate 50 mcg/actuation spray,suspension 2 spray intranasal DAILY Qty: 16 3RF (DME) pen needle, diabetic [BD Ultra-Fine Mini Pen Needle] 31 gauge x 3/16 needle See Rx Instructions .Route Qty: 100 4RF Rx Instructions: As directed amiodarone 200 mg tablet 200 mg PO DAILY Qty: 90 3RF potassium chloride 20 mEq tablet extended release 20 meq PO DAILY Qty: 90 3RF insulin glargine-yfgn [Semglee(insulin glarg-yfgn)Pen] 100 unit/mL (3 mL) insulin pen 28 unit SUBCUT DAILY 90 Days Qty: 25.2 1RF Referrals / Follow Up: Tosha Shrestha MD [Primary Care Provider] - Within 2 Weeks Jesus Becerra DO [Med Staff - Active Staff] - Within 2 Weeks Disposition Disposition (needs filled in before D/C Order can be placed): [facility] Charges/Coding Visit Charges Inpatient E&M: 08823 Disch Hosp >30min
[2023-05-07 12:17] LABS: Bedside Glucose 210 mg/dL (74-106)
--- NOTE | 2023-05-07 12:26 | CASEMGMT ---
Social Work Per physician pt is ready for discharge today.? 7000 convalescent form completed in [facility] and sent along with discharge orders to [facility] via [facility].? Transportation arranged with [facility] for 1:30 pickup via wheelchair van.? SW met with pt and he is agreeable to discharge plan as stated above.? VM left for pt . [place] and bedside nurse notified of discharge time. Disposition:?[facility], skilled level of care under convalescent stay. MAURISIO Wood
--- NOTE | 2023-05-07 14:10 | NURSING ---
belle diet order with Dr. Becerra. to advance diet to ADA-reg;
== END 2023-05-07 13:26 | disposition skilled nursing facility (03) | DRG 378 ==
LOC: ED 12:41 → MS3 14:02
PROVIDERS: Anesthesiology; Internal Medicine Gastroenterology; Admitting Provider Internal Medicine; Emergency Provider Emergency Medicine; PCP Internal Medicine; Visit Provider Student in an Organized Health Care Education/Training Program
PROC: 0DJ08ZZ Inspection of Upper Intestinal Tract, Via Natural or Artificial Opening Endoscopic (ICD-10-PCS; CPT 43235; principal; 2023-05-05 11:25)
DX: K31.811 Angiodysplasia of stomach and duodenum with bleeding (principal); D62 Acute posthemorrhagic anemia; D61.818 Other pancytopenia; I13.0 Hypertensive heart and chronic kidney disease with heart failure and stage 1 through stage 4 chronic kidney disease, or unspecified chronic kidney disease; I50.32 Chronic diastolic (congestive) heart failure; I49.5 Sick sinus syndrome; D63.1 Anemia in chronic kidney disease; I48.0 Paroxysmal atrial fibrillation; G25.81 Restless legs syndrome; E11.22 Type 2 diabetes mellitus with diabetic chronic kidney disease; N18.30 Chronic kidney disease, stage 3 unspecified; E11.42 Type 2 diabetes mellitus with diabetic polyneuropathy; Z79.4 Long term (current) use of insulin; F32.A Depression, unspecified; E78.5 Hyperlipidemia, unspecified; I25.10 Atherosclerotic heart disease of native coronary artery without angina pectoris; K31.7 Polyp of stomach and duodenum; G47.33 Obstructive sleep apnea (adult) (pediatric); E55.9 Vitamin D deficiency, unspecified; E66.9 Obesity, unspecified; N40.0 Benign prostatic hyperplasia without lower urinary tract symptoms; R53.1 Weakness; R53.81 Other malaise; R74.01 Elevation of levels of liver transaminase levels; Z95.0 Presence of cardiac pacemaker; Z68.36 Body mass index [BMI] 36.0-36.9, adult; Z79.01 Long term (current) use of anticoagulants; Z79.85 Long-term (current) use of injectable non-insulin antidiabetic drugs; Z79.899 Other long term (current) drug therapy
CPT/HCPCS: 36415; 71045; 80048; 80053; 81001; 82274; 82962; 83036; 83735; 84100; 84443; 84484; 85025; 85027; 85610; 85730; 87426; 87811; 88305; 93005; 94668; 97162; 97166; 97530; 99252; 99285; J7040; J7120; A4216; G0463; J2405

== ENCOUNTER 2023-05-26 09:59 | Emergency (ER) | payer MEDICARE, BC, SELFPAY ==
[2023-05-26 10:00] VITALS: BP 136/54; PULSE 70; RESP 18; TEMP 35.8; O2SAT 98
[2023-05-26 10:02] VITALS: BMI 36.6
--- NOTE | 2023-05-26 10:43 | CT_ITS ---
STUDY: CT BRAIN WITHOUT CONTRAST REASON FOR EXAM: Male, 82 years old. Weakness RADIATION DOSAGE (If Supplied By Facility): CTDIvol = ( 44.99 ) mGy, DLP = ( 812.98 ) mGycm TECHNIQUE: Transaxial CT imaging of the brain was performed without administration of intravenous contrast material. Individualized dose optimization techniques were used for this CT. COMPARISON: No relevant prior comparison study available FINDINGS: PARENCHYMA: There is no acute bleed or infarct. There are chronic ischemic and atrophic changes. VENTRICLES: There is no hydrocephalus. MASTOID AIR CELLS AND PARANASAL SINUSES: The visualized paranasal sinuses are clear. The mastoid air cells are clear. BONES: There is no skull fracture. SOFT TISSUES: The visualized soft tissues are within normal limits. CT/Brain/Head without Contrast IMPRESSION: No acute intracranial abnormality. Chronic ischemic and atrophic changes. No hydrocephalus Electronically Signed: Matti Blackwell MD at 11:43 EDT ,
--- NOTE | 2023-05-26 10:44 | EKG12_ITS ---
Test Reason : WEAKNESS Blood Pressure : / mmHG Vent. Rate : 070 BPM Atrial Rate : 066 BPM P-R Int : 000 ms QRS Dur : 182 ms QT Int : 504 ms P-R-T Axes : 000 -66 091 degrees QTc Int : 544 ms Ventricular-paced rhythm Abnormal ECG Confirmed by JORDIN DUNCAN, SYBIL ([id number]), editor sound BARRY ROSARIO ([id number]) on 05/28/2023 10:40:46 AM Referred By: Confirmed By:SYBIL BRENNER MD
--- NOTE | 2023-05-26 10:45 | EDS_ITS ---
HPI History of Present Illness Chief Complaint: Weakness Narrative Narrative: patient e was recently discharged from a rehab facility. He has been home for 2 days he has been weak, difficulty walking barely able to stand up he feels like he is would fall if he did not hold onto something. Even with his walker he feels quite weak. He says he sometimes feels like he would fall to the right side. He has no vision changes no focal weakness. He does not have any vertigo. . PFSH [facility] Medical History (HFpEF) heart failure with preserved ejection fraction (12/12/20) Acute dyspnea Acute on chronic diastolic HF (heart failure) Acute respiratory failure with hypoxia Anemia Anemia of chronic renal failure, stage 3 (moderate) Anxiety and depression Atherosclerotic heart disease of [place] coronary artery without angina pectoris Atrial flutter Atrial flutter Atypical chest pain Back pain BMI 34.0-34.9,adult BPH (benign prostatic hyperplasia) BPPV (benign paroxysmal positional vertigo) Bradycardia Cardiac dysrhythmia Cardiology follow-up encounter CHF (congestive heart failure) CHF (congestive heart failure) CHF (congestive heart failure) Chronic anticoagulation De Quervain's tenosynovitis Debility Depression Dermatitis Diabetes mellitus Diabetic kidney disease Dizziness DM type 2 with diabetic peripheral neuropathy DVT (deep venous thrombosis) Dyslipidemia Dysphagia Essential (primary) hypertension Fall Flu vaccine need Fracture of great toe Gastric reflux Generalized weakness Gout Gout flare Health care maintenance History of echocardiogram History of edema History of GI bleed History of peptic ulcer History of renal calculi History of ulceration HLD (hyperlipidemia) Injury of head and neck Iron deficiency anemia Iron deficiency anemia due to chronic blood loss Kidney hematoma (12/08/20) Left knee pain Left leg DVT Loss of equilibrium Low iron Malaise Near syncope Orthostatic hypotension MACHELLE (obstructive sleep apnea) Pain of left lower extremity Paroxysmal atrial fibrillation Paroxysmal atrial flutter Pneumonia Polypharmacy 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 Presence of cardiac pacemaker Prostate disease Psoriasis Recurrent syncope (06/19/22) Renal calculi RLS (restless legs syndrome) Sex disorder Sick sinus syndrome Suicidal ideation SVT (supraventricular tachycardia) TIA (transient ischemic attack) Type 2 diabetes mellitus with diabetic polyneuropathy Urolithiasis Venous insufficiency of both lower extremities Vertigo Walker as ambulation aid Weakness Wears glasses Home Medications finasteride 5 mg tablet 5 mg PO DAILY PROSTATE #90 tabs 11/03/18 [Rx Last Taken 12/23/22] meclizine 25 mg tablet 25 mg PO TID PRN dizziness #90 tabs 10/24/22 [Rx Last Taken 11/29/22] ergocalciferol (vitamin D2) 1,250 mcg (50,000 unit) capsule 50,000 unit PO QMONTH SUPPLEMENT #14 caps 11/29/22 [Rx Last Taken 12/16/22] ferrous sulfate 325 mg (65 mg iron) tablet 325 mg PO TH supplement #90 tabs 11/29/22 [Rx Last Taken 12/19/22] acetaminophen 500 mg tablet 1,000 mg (2 x 500 mg) PO Q8H PRN PRN Pain #30 tabs 12/03/22 [Rx Last Taken 12/23/22 06:00] nitroglycerin 0.4 mg sublingual tablet 0.4 mg sublingual Q5M PRN Cardiac/Chest Pain 30 days #30 tabs 12/03/22 [Rx Last Taken Unknown] metoprolol succinate 25 mg tablet,extended release 24 hr 12.5 mg PO DAILY BP 12/07/22 [History Last Taken 12/23/22] dulaglutide 4.5 mg/0.5 mL subcutaneous pen injector 4.5 mg (0.5 mL) subcut .COMPLEX DM 3 months #2 mL 12/09/22 [Rx Last Taken 12/20/22] furosemide 40 mg tablet (Lasix) 60 mg (1.5 x 40 mg) PO DAILY edema #45 tabs 12/24/22 [Rx Last Taken Unknown] apixaban 2.5 mg tablet (Eliquis) 2.5 mg PO BID thin #180 tabs 12/25/22 [Rx Last Taken Unknown] atorvastatin 10 mg tablet 10 mg PO QHS cholesterol #90 tabs 12/25/22 [Rx Last Taken Unknown] fluticasone propionate 50 mcg/actuation nasal spray,suspension 2 spray intranasal DAILY congestiom #16 grams 12/26/22 [Rx Last Taken Unknown] pen needle, diabetic 31 gauge x 3/16 (BD Ultra-Fine Mini Pen Needle) #100 ea 12/30/22 [Rx Last Taken Unknown] amiodarone 200 mg tablet 200 mg PO DAILY heart #90 tabs 01/02/23 [Rx Last Taken Unknown] potassium chloride 20 mEq tablet,extended release 20 meq PO DAILY sup #90 tabs 01/06/23 [Rx Last Taken Unknown] famotidine 40 mg tablet 40 mg PO DAILY reflux 02/04/23 [History Last Taken Unknown] hydralazine 50 mg tablet 75 mg PO BID blood pressure 02/04/23 [History Last Taken Unknown] pramipexole 1 mg tablet (Mirapex) 2 mg (2 x 1 mg) PO QHS RLS #180 tabs 02/04/23 [Rx Last Taken Unknown] progesterone micronized 100 mg capsule 100 mg PO QHS HORMONE #90 caps 02/04/23 [Rx Last Taken Unknown] propylene glycol 0.6 % eye drops (Systane Complete) 1 drp ophthalmic (eye) TID PRN dry eyes 02/04/23 [History Last Taken Unknown] sennosides 8.6 mg-docusate sodium 50 mg tablet (Stool Softener-Stimulant Laxative) 1 tab-cap PO DAILY PRN constipation 02/04/23 [History Last Taken Unknown] sertraline 25 mg tablet 25 mg PO DAILY DEPRESSION 02/04/23 [History Last Taken Unknown] insulin glargine-yfgn 100 unit/mL (3 mL) subcutaneous pen (Semglee (insulin glargine-yfgn) Pen) 28 unit (0.28 mL) subcut DAILY diabetes 90 days #25.2 mL 02/07/23 [Rx Last Taken Unknown] Allergy/AdvReac Type Severity Reaction Status Date / Time hydrocodone bitartrate AdvReac Severe Other Verified 05/26/23 10:00 [From Vicodin] hydroxyzine AdvReac Severe Other Verified 05/26/23 10:00 doxycycline AdvReac Intermediate Shortness Verified 05/26/23 10:00 of breath (had CHF also, may not be true allergy Family History Father Diabetes Hypertension Cancer Lung cancer Mother Hypertension CVA (cerebral vascular accident) Sister Diabetes Son Diabetes Surgical History History of cardioversion (2015) History of cataract surgery History of left heart catheterization (02/16/13) History of lithotripsy (11/2020) History of loop recorder (06/26/22) History of radiofrequency ablation procedure for cardiac arrhythmia (02/05/06) history of right knee cap fracture History of right knee surgery Status post laser lithotripsy of ureteral calculus Status post left foot surgery STENT PLACEMENT FOR KIDNEY STONE Social History household members: spouse housing: house Smoking Status: Never smoker how long ago did patient quit smokin second hand exposure: No alcohol intake: never substance use type: does not use caffeine: No what type of physical activity do you participate in: none seatbelt use: always do you feel safe at home: Yes ROS ROS ED ROS Narrative Past medical history: Reviewed, it is extensive, history of a flutter diabetes debility, history of hyponatremia, CHF, sick sinus syndrome, he has a pacemaker. Medications: Reviewed Social history: Noncontributory Review of systems: All systems negative except as indicated General: No fever. Generalized weakness Eyes: No visual changes ENT: No upper airway congestion, normal voice Neck: No neck pain Cardiovascular: No chest pain Respiratory: No shortness of breath or cough Gastrointestinal: No abdominal pain, nausea vomiting or diarrhea Genitourinary: No dysuria Musculoskeletal: Denies myalgias no difficulty with ambulation Skin: No rash Neurological: No memory loss, confusion or any focal weakness EXAM Physical Exam Narrative Exam Narrative: Physical exam General: Patient appears chronically ill but does not appear in significant distress. Head: Normocephalic, Atraumatic Eyes: Conjunctiva not pale ENT: Moist mucous membranes Neck: Supple. Cardiovascular: Regular rate, Regular rhythm Respiratory: No distress, CTA bilaterally Abdomen: Soft, Nontender, Nondistended Back: Nontender, Normal Inspection. Negative for: CVA tenderness Extremities: Nontender, bilateral symmetric lower extremity edema no signs of cellulitis Skin: Normal color, No rash Neurological: Alert, Normal Strength, Normal Sensation. Normal cerebellar. Const Vital Signs: 05/26/23 10:00 05/26/23 09:59 05/26/23 12:28 Temperature 96.4 F L Temperature Source Temporal Pulse Rate 70 70 Respiratory Rate 18 16 Respiratory Pattern Normal Blood Pressure 136/54 H 150/65 H Blood Pressure Mean 81 93 Pulse Ox 98 98 Oxygen Delivery Method Room Air Room Air MDM MDM MDM Narrative Medical decision making narrative: Is unremarkable. He is functionally declining, it is clear that it is difficult for him to be around his house and would not thrive and he is at high risk of fall. I talked to psychologist social will try to get him back into the detention today. He was just discharged a few days ago. Otherwise patient does not have any evidence of a UTI, and any kind of infection, anemia or any kind of stroke that would cause his symptoms. This is likely all chronic. Lab Data Labs: Laboratory Results - last 24 hr 05/26/23 05/26/23 10:55 11:40 WBC 4.0 L RBC 3.56 L Hgb 10.4 L Hct 34.5 L MCV 96.9 H MCH 29.2 MCHC 30.1 L RDW Std Deviation 47.9 H RDW Coeff of Flavio 13.5 Plt Count 150 MPV 9.9 Immature Gran % (Auto) 0.500 Neut % (Auto) 65.4 Lymph % (Auto) 18.7 L Hamilton % (Auto) 12.4 H Eos % (Auto) 2.0 Baso % (Auto) 1.0 Absolute Neuts (auto) 2.6 Absolute Lymphs (auto) 0.74 L Nucleated RBC % 0 Sodium 137 Potassium 4.5 Chloride 108 H Carbon Dioxide 19.0 L Anion Gap 10 BUN 50 H Creatinine 2.06 H Estim Creat Clear Calc 29.82 Est GFR (MDRD) Af Amer 40 L Est GFR (MDRD) Non-Af 33 L BUN/Creatinine Ratio 24.3 H Glucose 328 H Calcium 8.7 Total Bilirubin 0.80 AST 65 H ALT 75 H Alkaline Phosphatase 235 H Troponin I High Sens 16 Total Protein 6.9 Albumin 2.8 L Globulin 4.1 Albumin/Globulin Ratio 0.7 L Urine Color Yellow Urine Clarity Clear Urine pH 6.0 Ur Specific Nov[place] 1.010 Urine Protein 15 H Urine Glucose (UA) 50 H Urine Ketones Negative Urine Occult Blood Negative Urine Nitrite Negative Urine Bilirubin Negative Urine Urobilinogen Normal Ur Leukocyte Esterase Negative Radiography Diagnostic Testing: Clinical Impression(s) from Imaging Studies Brain CT 05/26/23 10:43 IMPRESSION: No acute intracranial abnormality. Chronic ischemic and atrophic changes. No hydrocephalus Electronically Signed: Matti Blackwell MD at 11:43 EDT , Chest X-Ray 05/26/23 11:28 IMPRESSION: No acute thoracic pathology. Electronically Signed: Matti Blackwell MD at 11:51 EDT Reading Location ID and State: [facility] / [place] Tel , Service support , Discharge Plan Triage Chief Complaint: Weakness ED Provider: Mani Claire Dx/Rx/DC Orders Clinical Impression: Weakness, Hypertension, Debility, Edema Prescriptions: No Action meclizine 25 mg tablet 25 mg PO TID PRN (Reason: dizziness) Qty: 90 0RF sennosides-docusate sodium [Stool Softener-Stimulant Laxat] 8.6-50 mg tablet 1 tab-cap PO DAILY PRN (Reason: constipation) Systane Complete 0.6 % drops 1 drp ophthalmic (eye) TID PRN (Reason: dry eyes) progesterone micronized 100 mg capsule 100 mg PO QHS Qty: 90 0RF pramipexole [Mirapex] 1 mg tablet 2 mg PO QHS Qty: 180 3RF famotidine 40 mg tablet 40 mg PO DAILY nitroglycerin 0.4 mg Tablet, Sublingual 0.4 mg sublingual Q5M PRN (Reason: Cardiac/Chest Pain) 30 Days Qty: 30 0RF acetaminophen 500 mg Tablet 1,000 mg PO Q8H PRN PRN (Reason: Pain) Qty: 30 0RF metoprolol succinate 25 mg tablet extended release 24 hr 12.5 mg PO DAILY hydralazine 50 mg tablet 75 mg PO BID sertraline 25 mg tablet 25 mg PO DAILY furosemide [Lasix] 40 mg tablet 60 mg PO DAILY Qty: 45 0RF finasteride 5 mg tablet 5 mg PO DAILY Qty: 90 3RF ergocalciferol (vitamin D2) 1,250 mcg (50,000 unit) capsule 50,000 unit PO QMONTH Qty: 14 1RF ferrous sulfate 325 mg (65 mg iron) tablet 325 mg PO Qty: 90 1RF Rx Instructions: only dulaglutide 4.5 mg/0.5 mL pen injector 4.5 mg SC .COMPLEX 90 Days Qty: 2 2RF Rx Instructions: 4.5 mg subcut every friday Eliquis 2.5 mg tablet 2.5 mg PO BID Qty: 180 3RF atorvastatin 10 mg tablet 10 mg PO QHS Qty: 90 3RF fluticasone propionate 50 mcg/actuation spray,suspension 2 spray intranasal DAILY Qty: 16 3RF (DME) pen needle, diabetic [BD Ultra-Fine Mini Pen Needle] 31 gauge x 3/16 needle See Rx Instructions .Route Qty: 100 4RF Rx Instructions: As directed amiodarone 200 mg tablet 200 mg PO DAILY Qty: 90 3RF potassium chloride 20 mEq tablet extended release 20 meq PO DAILY Qty: 90 3RF insulin glargine-yfgn [Semglee(insulin glarg-yfgn)Pen] 100 unit/mL (3 mL) insulin pen 28 unit SUBCUT DAILY 90 Days Qty: 25.2 1RF Primary Care Provider: Tosha Shrestha Referrals: Tosha Shrestha MD [Primary Care Provider] - Disposition Disposition: [facility]
[2023-05-26 11:06] LABS: Absolute Lymphocyte Count 0.74 X10^3/uL (0.83-4.51); Absolute Neutrophil Count 2.6 X10^3/uL (2.0-7.7); Basophil# 0.04 X10^3/uL; Eosinophil# 0.08 X10^3/uL; Hematocrit 34.5 % (40-54); Hemoglobin 10.4 g/dL (13.0-16.5); Lymphocyte # 0.74 X10^3/ul (0.83-4.51); Lymphocyte % 18.7 % (19-41); Mean Corp Hgb Conc 30.1 g/dL (32-36); Mean Corpuscular Hgb 29.2 pg (27.0-32.0); Mean Corpuscular Volume 96.9 fL (80-94); Mean Platelet Vol. 9.9 fl (6.2-12.0); Monocyte# 0.49 X10^3/uL; Monocyte% 12.4 % (0-10); NRBC Flagged by Analyzer 0 % (0-5); Neutrophil # 2.58 X10^3/uL (2.7-7.7); Neutrophil % 65.4 % (47-70); Platelet Count 150 K/mm3 (150-450); RBC Distribution Width CV 13.5 % (11.6-14.6); RBC Distribution Width SD 47.9 fl (35.1-43.9); Red Blood Count 3.56 M/mm3 (4.6-6.2)
--- NOTE | 2023-05-26 11:09 | CM.ED ---
Social Work Referral Source: MD Claire Referral Reason: SNF/ discharge planning SW performed chart review; patient had qualifying 3 midnight stay at [facility] from 05-04-23 until 05-07-23 at which time patient discharged to [place]. [facility], [place] [facility] [place] and [facility] for senior living. SW met with patient and patient's and introduced self and role as [facility] SW. Patient agreeable to speak to SW with patient's present. SW inquired about patient's recent stay at [facility]. Patient's explained the patient was discharged Friday05/23/23 as they felt the patient was doing well enough to return home. Patient and patient's stating patient needs to return and would prefer [facility] or [facility]. Patient's reports she can assist with transportation, however, she is concerned about patient's ability to get in the car as well as previous bills when transportation has been needed. Patient's also recalls the patient recently missed a follow up appointment with patient's blood doctor, unable to recall their name, and is inquiring about having those blood tests completed in ED. SW to update MD and will follow along for d/c planning needs. MD Claire updated. Plan: [facility] Acute VS SNF KARTHIK Little
[2023-05-26 11:25] LABS: ALB/GLOB Ratio 0.7 RATIO (0.9-2.4); AST(SGOT) 65 U/L (15-37); Alanine Aminotransfer ALT/SGPT 75 U/L (16-61); Albumin, Serum 2.8 g/dL (3.2-5.0); Alkaline Phosphatase 235 U/L (45-117); Anion Gap 10 (5-15); BUN 50 mg/dL (7-18); BUN/Creat Ratio 24.3 RATIO (10-20); Calcium,Total 8.7 mg/dL (8.5-10.1); Chloride 108 mmol/L (98-107); Creatinine, Serum 2.06 mg/dL (0.70-1.30); EST Glomerular Filtration Rate 33 mL/min (>60); Est Glom Filt Rate - Afr Amer 40 mL/min (>60); Estimated Creatinine Clearance 29.82 ml/min; Globulin 4.1 g/dL (2.2-4.2); Glucose 328 mg/dL (74-106); Potassium 4.5 mmol/L (3.5-5.1); Protein, Total 6.9 g/dL (6.4-8.2); Sodium Level 137 mmol/L (136-145); Troponin-I HS 16 pg/mL (3.0-78.0)
--- NOTE | 2023-05-26 11:28 | RAD_ITS ---
STUDY: X-RAY CHEST REASON FOR EXAM: Male, 82 years old. Weakness TECHNIQUE: Frontal view of the chest COMPARISON: None. FINDINGS: The lungs are clear. There are no pleural effusions. There is no pneumothorax. The heart is at the upper limits of normal in size. There is a pacemaker and a cardiac loop recorder noted. The visualized osseous structures are within normal limits. RAD/Chest 1 View (Portable) IMPRESSION: No acute thoracic pathology. Electronically Signed: Matti Blackwell MD at 11:51 EDT ,
[2023-05-26] MEDS: 0.9% Normal Saline (500mL Bag) 500 ML 1000 ML IV (11:51)
[2023-05-26 11:53] LABS: Bacteria 0 SEEN /hpf (None Seen); Mucous, Urine 0 SEEN /hpf (<or=2+); Red Blood Cells-Urine 0 SEEN /hpf (0-5); White Blood Cells 0 SEEN /hpf (0-5)
[2023-05-26 11:55] LABS: Color, Urine Yellow (Yellow); Glucose, Dipstick 50 mg/dl (Normal); Ketone-Dipstick Negative (Negative); Leukocyte Esterase-Dipstick Negative /ul (Negative); Nitrite-Dipstick Negative (Negative); Occult Blood-Urine Negative /ul (Negative); Protein-Dipstick 15 mg/dl (Negative); Urine Bilirubin Dipstick Negative (Negative); Urine Clarity Clear (Clear); Urine Urobilinogen Normal (Normal)
--- NOTE | 2023-05-26 12:26 | CM.ED ---
Social Work SW updated by MD patient does not need to be admitted to [facility]. SW to assist with D/C plan. SIMONA contacted [facility] Admissions staff, Renu, and left a VM. SIMONA sent referral to [facility] via [facility]. Alla ALARCON, KARTHIK
[2023-05-26 12:28] VITALS: BP 150/65; PULSE 70; RESP 16; O2SAT 98
[2023-05-26 13:53] LABS: Squamous Epithelial Cells - UA 0-5 SEEN /hpf (0-5)
--- NOTE | 2023-05-26 13:54 | CM.ED ---
Addendum entered by Alla Quinones 05/26/23 15:26: SW sent covid and d/c summary via [employer] as well as [facility]. Per [facility], patient can d/c when he is ready but [facility] transportation hasn't responded regarding assisting with transportation. SIMONA met with patient and , patient's agreeable to transport patient to [facility] and requesting assistance with getting her car and assisting the patient into the vehicle. SIMONA updated piece work inspector of plan and need for assistance. Plan: [facility] for skilled level of care KARTHIK Little Original Note: Social Work [facility] able to accept patient and requesting COVID test as well as discharge orders. [facility] to inquire about transportation assistance availability. MD and care team updated. SIMONA met with patient and patient's to provide update regarding acceptance to [facility]. Patient's reports if [facility] can not assist with transportation, patient's will transport. Patient inquiring about lunch. SIMONA updated RN of request. Plan: [facility] for skilled level of care KARTHIK Little
== END 2023-05-26 15:16 | disposition home or self-care (01) ==
PROVIDERS: Emergency Provider Emergency Medicine; PCP Internal Medicine; Visit Provider Emergency Medicine
DX: R53.1 Weakness (principal); I50.32 Chronic diastolic (congestive) heart failure; I13.0 Hypertensive heart and chronic kidney disease with heart failure and stage 1 through stage 4 chronic kidney disease, or unspecified chronic kidney disease; E11.42 Type 2 diabetes mellitus with diabetic polyneuropathy; E11.22 Type 2 diabetes mellitus with diabetic chronic kidney disease; N18.30 Chronic kidney disease, stage 3 unspecified; R53.81 Other malaise; R60.9 Edema, unspecified; I25.10 Atherosclerotic heart disease of native coronary artery without angina pectoris; G47.33 Obstructive sleep apnea (adult) (pediatric); Z86.718 Personal history of other venous thrombosis and embolism; Z95.0 Presence of cardiac pacemaker; Z86.73 Personal history of transient ischemic attack (TIA), and cerebral infarction without residual deficits
CPT/HCPCS: 36415; 70450; 71045; 80053; 81001; 84439; 84443; 84484; 85025; 87811; 93005; 99284

== ENCOUNTER → 2023-05-26 | Outpatient (CLI) | payer MEDICARE, BC, SELFPAY ==
[2023-05-26 12:15] LABS: Absolute Lymphocyte Count 0.57 X10^3/uL (0.83-4.51); Absolute Neutrophil Count 2.6 X10^3/uL (2.0-7.7); Basophil# 0.02 X10^3/uL; Basophil% 0.5 % (0-1); Eosinophil# 0.09 X10^3/uL; Eosinophils% 2.4 % (0-5); Hematocrit 33.5 % (40-54); Hemoglobin 10.2 g/dL (13.0-16.5); Lymphocyte # 0.57 X10^3/ul (0.83-4.51); Lymphocyte % 15.2 % (19-41); Mean Corp Hgb Conc 30.4 g/dL (32-36); Mean Corpuscular Hgb 29.2 pg (27.0-32.0); Mean Platelet Vol. 10.2 fl (6.2-12.0); Monocyte# 0.46 X10^3/uL; Monocyte% 12.3 % (0-10); NRBC Flagged by Analyzer 0 % (0-5); Neutrophil # 2.58 X10^3/uL (2.7-7.7); Neutrophil % 69.1 % (47-70); POSITIVE DIFFERENTIAL YES; Platelet Count 157 K/mm3 (150-450); RBC Distribution Width CV 13.7 % (11.6-14.6); RBC Distribution Width SD 48.5 fl (35.1-43.9); Red Blood Count 3.49 M/mm3 (4.6-6.2); White Blood Count 3.7 K/mm3 (4.4-11.0)
[2023-05-26 12:17] LABS: Differential Indicated SCAN CRITERIA MET
[2023-05-26 12:46] LABS: Differential Comment SCANNED
[2023-05-26 13:08] LABS: ALB/GLOB Ratio 0.6 RATIO (0.9-2.4); AST(SGOT) 70 U/L (15-37); Alanine Aminotransfer ALT/SGPT 75 U/L (16-61); Albumin, Serum 2.7 g/dL (3.2-5.0); Alkaline Phosphatase 236 U/L (45-117); Anion Gap 8 (5-15); BUN 46 mg/dL (7-18); BUN/Creat Ratio 21.8 RATIO (10-20); Calcium,Total 8.5 mg/dL (8.5-10.1); Chloride 107 mmol/L (98-107); Creatinine, Serum 2.11 mg/dL (0.70-1.30); EST Glomerular Filtration Rate 32 mL/min (>60); Est Glom Filt Rate - Afr Amer 39 mL/min (>60); Globulin 4.4 g/dL (2.2-4.2); Glucose 384 mg/dL (74-106); Potassium 4.9 mmol/L (3.5-5.1); Protein, Total 7.1 g/dL (6.4-8.2); Sodium Level 136 mmol/L (136-145); T4 Free Direct 1.86 ng/dL (0.76-1.46); Thyroid Stim Hormone (TSH) 0.99 uIU/mL (0.358-3.74)
[2023-05-28 13:05] LABS: Pathologist Review Reviewed
== END | disposition home or self-care (01) ==
LOC: BIMLAB 09:30
PROVIDERS: PCP Internal Medicine; Referring Provider Internal Medicine; Visit Provider Internal Medicine
DX: R53.81 Other malaise (principal); E11.42 Type 2 diabetes mellitus with diabetic polyneuropathy
CPT/HCPCS: 36415; 80053; 84439; 84443; 85025

== ENCOUNTER 2023-06-23 10:52 | Emergency (ER) | payer MEDICARE, BC, SELFPAY ==
[2023-06-23 10:52] VITALS: BP 123/49; PULSE 70; RESP 14; TEMP 36.2; O2SAT 99
--- NOTE | 2023-06-23 11:36 | EKG12_ITS ---
Test Reason : GENERAL Blood Pressure : / mmHG Vent. Rate : 070 BPM Atrial Rate : 073 BPM P-R Int : 000 ms QRS Dur : 184 ms QT Int : 490 ms P-R-T Axes : 000 -66 091 degrees QTc Int : 529 ms Ventricular-paced rhythm Abnormal ECG Confirmed by AVILA DUNCAN, ALBERTO ([id number]), field map editor NITZA ROJAS ([id number]) on 06/30/2023 10:08:13 AM Referred By: Confirmed By:SCARLETT GRAMAJO MD
[2023-06-23 11:53] VITALS: BMI 35.2
[2023-06-23 12:00] LABS: Absolute Lymphocyte Count 0.93 X10^3/uL (0.83-4.51); Absolute Neutrophil Count 3.6 X10^3/uL (2.0-7.7); Basophil# 0.03 X10^3/uL; Basophil% 0.6 % (0-1); Eosinophil# 0.15 X10^3/uL; Eosinophils% 2.8 % (0-5); Hematocrit 35.8 % (40-54); Hemoglobin 10.7 g/dL (13.0-16.5); Lymphocyte # 0.93 X10^3/ul (0.83-4.51); Lymphocyte % 17.1 % (19-41); Mean Corp Hgb Conc 29.9 g/dL (32-36); Mean Corpuscular Hgb 28.4 pg (27.0-32.0); Mean Platelet Vol. 9.6 fl (6.2-12.0); Monocyte# 0.76 X10^3/uL; NRBC Flagged by Analyzer 0 % (0-5); Neutrophil # 3.55 X10^3/uL (2.7-7.7); Neutrophil % 65.1 % (47-70); Platelet Count 153 K/mm3 (150-450); RBC Distribution Width CV 14.3 % (11.6-14.6); RBC Distribution Width SD 49.2 fl (35.1-43.9); Red Blood Count 3.77 M/mm3 (4.6-6.2); White Blood Count 5.4 K/mm3 (4.4-11.0)
[2023-06-23 12:21] LABS: ALB/GLOB Ratio 0.6 RATIO (0.9-2.4); AST(SGOT) 92 U/L (15-37); Alanine Aminotransfer ALT/SGPT 84 U/L (16-61); Albumin, Serum 2.7 g/dL (3.2-5.0); Alkaline Phosphatase 218 U/L (45-117); Anion Gap 7 (5-15); BUN 68 mg/dL (7-18); BUN/Creat Ratio 24.8 RATIO (10-20); Calcium,Total 8.9 mg/dL (8.5-10.1); Chloride 107 mmol/L (98-107); Creatinine, Serum 2.74 mg/dL (0.70-1.30); EST Glomerular Filtration Rate 24 mL/min (>60); Est Glom Filt Rate - Afr Amer 29 mL/min (>60); Estimated Creatinine Clearance 22.42 ml/min; Globulin 4.6 g/dL (2.2-4.2); Glucose 295 mg/dL (74-106); Potassium 5.3 mmol/L (3.5-5.1); Protein, Total 7.3 g/dL (6.4-8.2); Sodium Level 133 mmol/L (136-145); Troponin-I HS 18 pg/mL (3.0-78.0)
--- NOTE | 2023-06-23 12:35 | RAD_ITS ---
STUDY: X-RAY CHEST REASON FOR EXAM: Male, 82 years old. Weakness TECHNIQUE: Single AP portable view of the chest. COMPARISON: Comparison is made with prior study May 26, 2023. FINDINGS: EKG electrodes are seen. A loop recorder device is seen overlying the left heart border. Scattered calcified granulomas. Stable elevation of the right hemidiaphragm. There is no demonstrated pleural abnormality. Normal size heart. Normal mediastinum and lakhwinder. Normal visualized pulmonary arteries. There is atherosclerotic calcification of the aortic arch with tortuosity. There are degenerative changes of the visualized thoracic spine. Normal visualized ribs, clavicles, and shoulders. There is no demonstrated abnormality of the visualized soft tissue structures of the upper abdomen. RAD/Chest 1 View (Portable) IMPRESSION: No acute abnormality is seen. Electronically Signed: Leo Fay MD at 13:01 EST ,
[2023-06-23 12:48] LABS: Bacteria 0 SEEN /hpf (None Seen); Mucous, Urine 0 SEEN /hpf (<or=2+); Red Blood Cells-Urine 0 SEEN /hpf (0-5); Squamous Epithelial Cells - UA 0 SEEN /hpf (0-5); White Blood Cells 0 SEEN /hpf (0-5)
[2023-06-23 12:49] LABS: Color, Urine Yellow (Yellow); Glucose, Dipstick Normal (Normal); Ketone-Dipstick Negative (Negative); Leukocyte Esterase-Dipstick Negative /ul (Negative); Nitrite-Dipstick Negative (Negative); Occult Blood-Urine Negative /ul (Negative); Protein-Dipstick Negative (Negative); Urine Bilirubin Dipstick Negative (Negative); Urine Clarity Sl. Cloudy (Clear); Urine Urobilinogen Normal (Normal)
--- NOTE | 2023-06-23 13:41 | EDS_ITS ---
HPI History of Present Illness Chief Complaint: Fatigue Narrative Narrative: 82-year-old male presenting with debility. He has had this for weeks now. States he feels generally weak and has trouble getting around at home although he has been able to do some of his ADLs. He is able to bathe himself at times. He feels generally weak and mostly sleeps and lays around all the time. He has a mild cough but no fevers or chills. No vomiting. He states he occasionally gets a bloody nose but not currently. States he has had healthcare and came by today and they stated that his blood pressure was 120/15 and was referred to the emergency room. Patient states that he just does not have any energy to get around and does not feel like he can go home at this point. His states that she cannot do all of his home care. They do have physical therapy coming out to the house. [facility] Medical History (HFpEF) heart failure with preserved ejection fraction (12/12/20) Acute dyspnea Acute on chronic diastolic HF (heart failure) Acute respiratory failure with hypoxia Anemia Anemia of chronic renal failure, stage 3 (moderate) Anxiety and depression Atherosclerotic heart disease of [place] coronary artery without angina pectoris Atrial flutter Atrial flutter Atypical chest pain Back pain BMI 34.0-34.9,adult BPH (benign prostatic hyperplasia) BPPV (benign paroxysmal positional vertigo) Bradycardia Cardiac dysrhythmia Cardiology follow-up encounter CHF (congestive heart failure) CHF (congestive heart failure) CHF (congestive heart failure) Chronic anticoagulation De Quervain's tenosynovitis Debility Depression Dermatitis Diabetes mellitus Diabetic kidney disease Dizziness DM type 2 with diabetic peripheral neuropathy DVT (deep venous thrombosis) Dyslipidemia Dysphagia Essential (primary) hypertension Fall Flu vaccine need Fracture of great toe Gastric reflux Generalized weakness Gout Gout flare Health care maintenance History of echocardiogram History of edema History of GI bleed History of peptic ulcer History of renal calculi History of ulceration HLD (hyperlipidemia) Injury of head and neck Iron deficiency anemia Iron deficiency anemia due to chronic blood loss Kidney hematoma (12/08/20) Left knee pain Left leg DVT Loss of equilibrium Low iron Malaise Near syncope Orthostatic hypotension MACHELLE (obstructive sleep apnea) Pain of left lower extremity Paroxysmal atrial fibrillation Paroxysmal atrial flutter Pneumonia Polypharmacy 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 Presence of cardiac pacemaker Prostate disease Psoriasis Recurrent syncope (06/19/22) Renal calculi RLS (restless legs syndrome) Sex disorder Sick sinus syndrome Suicidal ideation SVT (supraventricular tachycardia) TIA (transient ischemic attack) Type 2 diabetes mellitus with diabetic polyneuropathy Urolithiasis Venous insufficiency of both lower extremities Vertigo Walker as ambulation aid Weakness Wears glasses Home Medications finasteride 5 mg tablet 5 mg PO DAILY PROSTATE #90 tabs 11/03/18 [Rx Last Taken 06/23/23] ergocalciferol (vitamin D2) 1,250 mcg (50,000 unit) capsule 50,000 unit PO QMONTH SUPPLEMENT #14 caps 11/29/22 [Rx Last Taken 06/18/23] ferrous sulfate 325 mg (65 mg iron) tablet 325 mg PO TH supplement #90 tabs 11/29/22 [Rx Last Taken 06/19/23] acetaminophen 500 mg tablet 1,000 mg (2 x 500 mg) PO Q8H PRN PRN Pain #30 tabs 12/03/22 [Rx Last Taken 12/23/22 06:00] nitroglycerin 0.4 mg sublingual tablet 0.4 mg sublingual Q5M PRN Cardiac/Chest Pain 30 days #30 tabs 12/03/22 [Rx Last Taken Unknown] metoprolol succinate 25 mg tablet,extended release 24 hr 12.5 mg PO DAILY BP 12/07/22 [History Last Taken 06/23/23] dulaglutide 4.5 mg/0.5 mL subcutaneous pen injector 4.5 mg (0.5 mL) subcut .COMPLEX DM 3 months #2 mL 12/09/22 [Rx Last Taken 06/20/23] furosemide 40 mg tablet (Lasix) 60 mg (1.5 x 40 mg) PO DAILY edema #45 tabs 12/24/22 [Rx Last Taken 06/23/23] apixaban 2.5 mg tablet (Eliquis) 2.5 mg PO BID thin #180 tabs 12/25/22 [Rx Last Taken 06/23/23] atorvastatin 10 mg tablet 10 mg PO QHS cholesterol #90 tabs 12/25/22 [Rx Last Taken 06/22/23] fluticasone propionate 50 mcg/actuation nasal spray,suspension 2 spray intranasal DAILY congestiom #16 grams 12/26/22 [Rx Last Taken 06/22/23] pen needle, diabetic 31 gauge x 3/16 (BD Ultra-Fine Mini Pen Needle) #100 ea 12/30/22 [Rx Last Taken Unknown] amiodarone 200 mg tablet 200 mg PO DAILY heart #90 tabs 01/02/23 [Rx Last Taken Unknown] potassium chloride 20 mEq tablet,extended release 20 meq PO DAILY sup #90 tabs 01/06/23 [Rx Last Taken 06/23/23] famotidine 40 mg tablet 40 mg PO DAILY reflux 02/04/23 [History Last Taken 06/23/23] hydralazine 50 mg tablet 75 mg PO BID blood pressure 02/04/23 [History Last Taken Unknown] pramipexole 1 mg tablet (Mirapex) 2 mg (2 x 1 mg) PO QHS RLS #180 tabs 02/04/23 [Rx Last Taken 06/22/23] sertraline 25 mg tablet 25 mg PO DAILY DEPRESSION 02/04/23 [History Last Taken Unknown] insulin glargine-yfgn 100 unit/mL (3 mL) subcutaneous pen (Semglee (insulin glargine-yfgn) Pen) 28 unit (0.28 mL) subcut DAILY diabetes 90 days #25.2 mL 02/07/23 [Rx Last Taken 06/23/23] Allergy/AdvReac Type Severity Reaction Status Date / Time hydrocodone bitartrate AdvReac Severe Other Verified 06/23/23 10:54 [From Vicodin] hydroxyzine AdvReac Severe Other Verified 06/23/23 10:54 doxycycline AdvReac Intermediate Shortness Verified 06/23/23 10:54 of breath (had CHF also, may not be true allergy Family History Father Diabetes Hypertension Cancer Lung cancer Mother Hypertension CVA (cerebral vascular accident) Sister Diabetes Son Diabetes Surgical History History of cardioversion (2015) History of cataract surgery History of left heart catheterization (02/16/13) History of lithotripsy (11/2020) History of loop recorder (06/26/22) History of radiofrequency ablation procedure for cardiac arrhythmia (02/05/06) history of right knee cap fracture History of right knee surgery Status post laser lithotripsy of ureteral calculus Status post left foot surgery STENT PLACEMENT FOR KIDNEY STONE Social History household members: spouse housing: house Smoking Status: Never smoker how long ago did patient quit smokin second hand exposure: No alcohol intake: never substance use type: does not use caffeine: No what type of physical activity do you participate in: none seatbelt use: always do you feel safe at home: Yes ROS ROS ED Constitutional Constitutional ED: Denies chills or fever(s) Eyes Eyes: Denies change in vision or diplopia ENT ENT ED: Reports other Details: Occasional epistaxis Cardiovascular Cardiovascular: Denies chest pain or palpitations Respiratory/Chest Respiratory/Chest: Denies cough or dyspnea Gastrointestinal Gastrointestinal: Denies abdominal pain, nausea or vomiting Genitourinary Genitourinary ED: Denies dysuria Musculoskeletal Musculoskeletal: Denies arthralgias Integumentary Denies abscess or Abrasions Neurologic Neurologic: Denies headache(s) or paresthesias Psychiatric Psychiatric: Denies anxiety or depression EXAM Physical Exam Const Vital Signs: 06/23/23 10:52 06/23/23 11:53 06/23/23 14:06 Temperature 97.1 F L Temperature Source Temporal Pulse Rate 70 84 Respiratory Rate 14 17 Respiratory Pattern Normal Blood Pressure 123/49 H 98/73 Blood Pressure Mean 73 81 Pulse Ox 99 95 Oxygen Delivery Method Room Air Room Air Positive well nourished General Appearance ED: NAD; Negative for pallor HEENT Reports moist mucous membranes Eyes PERRL and EOMs intact bilaterally Chest Wall inspection of chest normal Resp normal respiratory effort Auscultation: Negative for rales, rhonchi or wheezes Cardio regular rate and regular rhythm GI normal to inspection, nondistended, normoactive bowel sounds Neuro oriented x3 and CN's II-XII intact bilaterally Sensorium / Orientation: alert Psych mental status grossly normal Skin no rashes or lesions noted General Skin Exam: Negative for jaundice or pallor MDM MDM MDM Narrative Medical decision making narrative: Patient with ongoing debility which appears to be long-term. Has been in and out of nursing homes for weakness and does fairly well there and then gets home when he is becomes weak and has no energy. He has been followed as an outpatient with no acute changes in his lab work. Patient denies any black or bloody stools. Denies fevers or chills. Denies chest pain or shortness of breath. States he just feels generalized weakness. Asaf includes anemia, dehydration, electrolyte normalities, UTI, pneumonia, acute coronary syndrome. CBC was obtained to assess white blood cell count, hemoglobin, platelets. CMP to assess liver function, renal function, electrolytes. Sensitivity troponin and EKG to assess for ischemia/failure. Chest x-ray to rule out pneumonia. Urinalysis to assess for UTI. EKG paced rhythm at 70 bpm without sign of ischemic change on my interpretation. CBC unremarkable. CMP shows normal liver function. Creatinine is slightly elevated at 2.74 he was given a liter of IV fluids. Potassium slightly high at 5.3 as well. High-sensitivity troponin 18. Urinalysis negative for infection. Chest x-ray my interpretation shows no acute process. This point I found no significant findings to admit the patient although he was tearful and wanted to stay in the hospital and felt like he needed a prison. I discussed with the hospitalist who stated that he does not have an admitting diagnosis would not qualify for a prison. He would discuss this with them. Patient was given IV fluids and is amenable to going home at this point. Return precautions are discussed. Impression: 1. Generalized weakness 2. Dehydration Lab Data Labs: Laboratory Results - last 24 hr 06/23/23 06/23/23 11:51 12:44 WBC 5.4 RBC 3.77 L Hgb 10.7 L Hct 35.8 L MCV 95.0 H MCH 28.4 MCHC 29.9 L RDW Std Deviation 49.2 H RDW Coeff of Flavio 14.3 Plt Count 153 MPV 9.6 Immature Gran % (Auto) 0.400 Neut % (Auto) 65.1 Lymph % (Auto) 17.1 L [place] % (Auto) 14.0 H Eos % (Auto) 2.8 Baso % (Auto) 0.6 Absolute Neuts (auto) 3.6 Absolute Lymphs (auto) 0.93 Nucleated RBC % 0 Sodium 133 L Potassium 5.3 H Chloride 107 Carbon Dioxide 19.0 L Anion Gap 7 BUN 68 H Creatinine 2.74 H Estim Creat Clear Calc 22.42 Est GFR (MDRD) Af Amer 29 L Est GFR (MDRD) Non-Af 24 L BUN/Creatinine Ratio 24.8 H Glucose 295 H Calcium 8.9 Total Bilirubin 1.00 AST 92 H ALT 84 H Alkaline Phosphatase 218 H Troponin I High Sens 18 Total Protein 7.3 Albumin 2.7 L Globulin 4.6 H Albumin/Globulin Ratio 0.6 L Urine Color Yellow Urine Clarity Sl. Cloudy Urine pH 6.0 Ur Specific [place] 1.010 Urine Protein Negative Urine Glucose (UA) Normal Urine Ketones Negative Urine Occult Blood Negative Urine Nitrite Negative Urine Bilirubin Negative Urine Urobilinogen Normal Ur Leukocyte Esterase Negative Urine RBC 0 SEEN Urine WBC 0 SEEN Ur Squamous Epith Cells 0 SEEN Urine Bacteria 0 SEEN Urine Mucus 0 SEEN Radiography Diagnostic Testing: Clinical Impression(s) from Imaging Studies Chest X-Ray 06/23/23 12:35 IMPRESSION: No acute abnormality is seen. Electronically Signed: Leo Fay MD at 13:01 EST Reading Location ID and State: [address] [place] [address] , Service support , Discharge Plan Triage Chief Complaint: Fatigue ED Provider: Nghia Smith Dx/Rx/DC Orders Prescriptions: No Action pramipexole [Mirapex] 1 mg tablet 2 mg PO QHS Qty: 180 3RF famotidine 40 mg tablet 40 mg PO DAILY nitroglycerin 0.4 mg Tablet, Sublingual 0.4 mg sublingual Q5M PRN (Reason: Cardiac/Chest Pain) 30 Days Qty: 30 0RF acetaminophen 500 mg Tablet 1,000 mg PO Q8H PRN PRN (Reason: Pain) Qty: 30 0RF metoprolol succinate 25 mg tablet extended release 24 hr 12.5 mg PO DAILY hydralazine 50 mg tablet 75 mg PO BID sertraline 25 mg tablet 25 mg PO DAILY furosemide [Lasix] 40 mg tablet 60 mg PO DAILY Qty: 45 0RF finasteride 5 mg tablet 5 mg PO DAILY Qty: 90 3RF ergocalciferol (vitamin D2) 1,250 mcg (50,000 unit) capsule 50,000 unit PO QMONTH Qty: 14 1RF ferrous sulfate 325 mg (65 mg iron) tablet 325 mg PO Qty: 90 1RF Rx Instructions: only dulaglutide 4.5 mg/0.5 mL pen injector 4.5 mg SC .COMPLEX 90 Days Qty: 2 2RF Rx Instructions: 4.5 mg subcut every friday Eliquis 2.5 mg tablet 2.5 mg PO BID Qty: 180 3RF atorvastatin 10 mg tablet 10 mg PO QHS Qty: 90 3RF fluticasone propionate 50 mcg/actuation spray,suspension 2 spray intranasal DAILY Qty: 16 3RF (DME) pen needle, diabetic [BD Ultra-Fine Mini Pen Needle] 31 gauge x 3/16 needle See Rx Instructions .Route Qty: 100 4RF Rx Instructions: As directed amiodarone 200 mg tablet 200 mg PO DAILY Qty: 90 3RF potassium chloride 20 mEq tablet extended release 20 meq PO DAILY Qty: 90 3RF insulin glargine-yfgn [Semglee(insulin glarg-yfgn)Pen] 100 unit/mL (3 mL) insulin pen 28 unit SUBCUT DAILY 90 Days Qty: 25.2 1RF Primary Care Provider: Tosha Shrestha Referrals: Tosha Shrestha MD [Primary Care Provider] -
[2023-06-23 14:06] VITALS: BP 98/73; PULSE 84; RESP 17; O2SAT 95
[2023-06-23] MEDS: 0.9% Normal Saline (1000mL) 1,000 ML 999 ML IV (14:10)
== END 2023-06-23 15:34 | disposition home or self-care (01) ==
PROVIDERS: Emergency Provider Student in an Organized Health Care Education/Training Program; PCP Internal Medicine; Visit Provider Student in an Organized Health Care Education/Training Program
DX: R53.1 Weakness (principal); I13.0 Hypertensive heart and chronic kidney disease with heart failure and stage 1 through stage 4 chronic kidney disease, or unspecified chronic kidney disease; I50.32 Chronic diastolic (congestive) heart failure; E11.22 Type 2 diabetes mellitus with diabetic chronic kidney disease; E11.42 Type 2 diabetes mellitus with diabetic polyneuropathy; Z79.4 Long term (current) use of insulin; N18.30 Chronic kidney disease, stage 3 unspecified; E86.0 Dehydration; I25.10 Atherosclerotic heart disease of native coronary artery without angina pectoris; E78.5 Hyperlipidemia, unspecified; G47.33 Obstructive sleep apnea (adult) (pediatric); Z79.899 Other long term (current) drug therapy; Z79.01 Long term (current) use of anticoagulants; Z86.718 Personal history of other venous thrombosis and embolism; Z95.0 Presence of cardiac pacemaker; Z86.73 Personal history of transient ischemic attack (TIA), and cerebral infarction without residual deficits; Z87.891 Personal history of nicotine dependence
CPT/HCPCS: 71045; 80053; 81001; 84484; 85025; 93005; 99283; J7030; A4216

== ENCOUNTER → 2023-06-30 | Outpatient (CLI) | payer MEDICARE, BC, SELFPAY ==
[2023-06-30 12:23] LABS: Potassium 5.6 mmol/L (3.5-5.1)
== END | disposition home or self-care (01) ==
PROVIDERS: PCP Internal Medicine; Referring Provider Internal Medicine; Visit Provider Internal Medicine
DX: L97.522 Non-pressure chronic ulcer of other part of left foot with fat layer exposed (principal); L03.116 Cellulitis of left lower limb
CPT/HCPCS: 36415; 84132; 87070; 87075; 87077; 87186; 87205

== ENCOUNTER 2023-08-05 12:56 | Emergency (ER) | payer MEDICARE, BC, SELFPAY ==
[2023-08-05 13:00] VITALS: BP 127/61; PULSE 70; RESP 16; TEMP 36.2; O2SAT 100; O2SAT 99; BMI 36.1
--- NOTE | 2023-08-05 13:28 | EKG12_ITS ---
Test Reason : FALL Blood Pressure : / mmHG Vent. Rate : 070 BPM Atrial Rate : 070 BPM P-R Int : 000 ms QRS Dur : 164 ms QT Int : 514 ms P-R-T Axes : 000 -65 090 degrees QTc Int : 555 ms Ventricular-paced rhythm Abnormal ECG Confirmed by JORDIN DUNCAN, SYBIL ([id number]), scientific publications editor RIGO HILTON ([id number]) on 08/07/2023 10:28:40 AM Referred By: Confirmed By:SYBIL BRENNER MD
--- NOTE | 2023-08-05 13:35 | EX.ED.DYSGE1 ---
HPI <KENRICK Alatorre - Last Filed: 08/05/23 20:59> History of Present Illness Chief Complaint: Syncope Narrative Narrative: Patient is an 83-year-old male with history of obesity, diabetes, hypertension, CAD on multiple heart medications as well as Eliquis who presents to the emergency department for near syncopal episode x 2. Patient states he had a normal morning, he was getting up to clean the dishes when he became dizzy which she describes as lightheaded and states his legs almost gave out he had to hold onto the sink or he would have fell to the floor. Patient then was able to get himself to bed. He denies any chest pain or shortness of breath. Patient states that when he tried to get out of bed it happened again while he was walking with his walker and almost fell down. He denies any history of vertiginous symptoms which she has history of as well. He states this is different. He states now he is just overly exhausted. He states whenever he sits up, he gets more lightheaded. They did take his blood pressure at home and it was 99 systolic which is low for him. He does state that he has been coughing more recently. He is here for evaluation [facility] <KENRICK Alatorre - Last Filed: 08/05/23 20:59> [facility] Medical History (Updated 08/05/23 @ 18:08 by KENRICK Alatorre) (HFpEF) heart failure with preserved ejection fraction (12/12/20) Acute dyspnea Acute on chronic diastolic HF (heart failure) Acute respiratory failure with hypoxia Anemia Anemia of chronic renal failure, stage 3 (moderate) Anxiety and depression Atherosclerotic heart disease of [place] coronary artery without angina pectoris Atrial flutter Atrial flutter Atypical chest pain Back pain BMI 34.0-34.9,adult BPH (benign prostatic hyperplasia) BPPV (benign paroxysmal positional vertigo) Bradycardia Cardiac dysrhythmia Cardiology follow-up encounter CHF (congestive heart failure) CHF (congestive heart failure) CHF (congestive heart failure) Chronic anticoagulation De Quervain's tenosynovitis Debility Depression Dermatitis Diabetes mellitus Diabetic kidney disease Dizziness DM type 2 with diabetic peripheral neuropathy DVT (deep venous thrombosis) Dyslipidemia Dysphagia Essential (primary) hypertension Fall Flu vaccine need Fracture of great toe Gastric reflux Generalized weakness Gout Gout flare Health care maintenance History of echocardiogram History of edema History of GI bleed History of peptic ulcer History of renal calculi History of ulceration HLD (hyperlipidemia) Hyperkalemia Injury of head and neck Iron deficiency anemia Iron deficiency anemia due to chronic blood loss Kidney hematoma (12/08/20) Left knee pain Left leg DVT Loss of equilibrium Low iron Malaise Near syncope Orthostatic hypotension MACHELLE (obstructive sleep apnea) Pain of left lower extremity Paroxysmal atrial fibrillation Paroxysmal atrial flutter Pneumonia Polypharmacy 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 Presence of cardiac pacemaker Prostate disease Psoriasis Recurrent syncope (06/19/22) Renal calculi RLS (restless legs syndrome) Sex disorder Sick sinus syndrome Suicidal ideation SVT (supraventricular tachycardia) TIA (transient ischemic attack) Toe pain, left Type 2 diabetes mellitus with diabetic polyneuropathy Urolithiasis Venous insufficiency of both lower extremities Vertigo Walker as ambulation aid Weakness Wears glasses Home Medications finasteride 5 mg tablet 5 mg PO DAILY PROSTATE #90 tabs 11/03/18 [Rx Last Taken 06/23/23] ergocalciferol (vitamin D2) 1,250 mcg (50,000 unit) capsule 50,000 unit PO QMONTH SUPPLEMENT #14 caps 11/29/22 [Rx Last Taken 06/18/23] ferrous sulfate 325 mg (65 mg iron) tablet 325 mg PO TH supplement #90 tabs 11/29/22 [Rx Last Taken 06/19/23] acetaminophen 500 mg tablet 1,000 mg (2 x 500 mg) PO Q8H PRN PRN Pain #30 tabs 12/03/22 [Rx Last Taken 12/23/22 06:00] nitroglycerin 0.4 mg sublingual tablet 0.4 mg sublingual Q5M PRN Cardiac/Chest Pain 30 days #30 tabs 12/03/22 [Rx Last Taken Unknown] metoprolol succinate 25 mg tablet,extended release 24 hr 12.5 mg PO DAILY BP 12/07/22 [History Last Taken 06/23/23] dulaglutide 4.5 mg/0.5 mL subcutaneous pen injector 4.5 mg (0.5 mL) subcut .COMPLEX DM 3 months #2 mL 12/09/22 [Rx Last Taken 06/20/23] furosemide 40 mg tablet (Lasix) 60 mg (1.5 x 40 mg) PO DAILY edema #45 tabs 12/24/22 [Rx Last Taken 06/23/23] apixaban 2.5 mg tablet (Eliquis) 2.5 mg PO BID thin #180 tabs 12/25/22 [Rx Last Taken 06/23/23] atorvastatin 10 mg tablet 10 mg PO QHS cholesterol #90 tabs 12/25/22 [Rx Last Taken 06/22/23] pen needle, diabetic 31 gauge x 3/16 (BD Ultra-Fine Mini Pen Needle) #100 ea 12/30/22 [Rx Last Taken Unknown] amiodarone 200 mg tablet 200 mg PO DAILY heart #90 tabs 01/02/23 [Rx Last Taken Unknown] famotidine 40 mg tablet 40 mg PO DAILY reflux 02/04/23 [History Last Taken 06/23/23] hydralazine 50 mg tablet 75 mg PO BID blood pressure 02/04/23 [History Last Taken Unknown] pramipexole 1 mg tablet (Mirapex) 2 mg (2 x 1 mg) PO QHS RLS #180 tabs 02/04/23 [Rx Last Taken 06/22/23] sertraline 25 mg tablet 25 mg PO DAILY DEPRESSION 02/04/23 [History Last Taken Unknown] insulin glargine-yfgn 100 unit/mL (3 mL) subcutaneous pen (Semglee (insulin glargine-yfgn) Pen) 28 unit (0.28 mL) subcut DAILY diabetes 90 days #25.2 mL 02/07/23 [Rx Last Taken 06/23/23] fluticasone propionate 50 mcg/actuation nasal spray,suspension 2 spray intranasal DAILY congestiom #16 grams 06/24/23 [Rx Last Taken Unknown] amoxicillin 875 mg-potassium clavulanate 125 mg tablet 1 tab PO Q12H #14 tabs 06/30/23 [Rx Last Taken Unknown] progesterone micronized 100 mg capsule 100 mg PO QAM #90 caps 07/03/23 [Rx Last Taken Unknown] lancets 30 gauge (ClewTouch Delica Plus Lancet) #100 ea 07/22/23 [Rx Last Taken Unknown] Allergy/AdvReac Type Severity Reaction Status Date / Time hydrocodone bitartrate AdvReac Severe Other Verified 06/30/23 10:34 [From Vicodin] hydroxyzine AdvReac Severe Other Verified 06/30/23 10:34 doxycycline AdvReac Intermediate Shortness Verified 06/30/23 10:34 of breath (had CHF also, may not be true allergy Family History Father Diabetes Hypertension Cancer Lung cancer Mother Hypertension CVA (cerebral vascular accident) Sister Diabetes Son Diabetes Surgical History History of cardioversion (2015) History of cataract surgery History of left heart catheterization (02/16/13) History of lithotripsy (11/2020) History of loop recorder (06/26/22) History of radiofrequency ablation procedure for cardiac arrhythmia (02/05/06) history of right knee cap fracture History of right knee surgery Status post laser lithotripsy of ureteral calculus Status post left foot surgery STENT PLACEMENT FOR KIDNEY STONE Social History household members: spouse housing: house Smoking Status: Never smoker how long ago did patient quit smokin second hand exposure: No alcohol intake: never substance use type: does not use caffeine: No what type of physical activity do you participate in: none seatbelt use: always do you feel safe at home: Yes ROS <Mani Duarte NP-C - Last Filed: 08/05/23 20:59> ROS ED ROS Narrative Constitutional: Negative for fever, chills, weight loss. Positive generalized weakness, exhaustion Eyes: Negative for vision loss, vision change, double vision ENT: Negative for any sore throat, ear pain, congestion Cardiovascular: Negative for any chest pain, tightness, palpitations Respiratory: Negative for any cough, sputum production, hemoptysis, dyspnea, dyspnea on exertion, orthopnea Gastrointestinal: Negative for any abdominal pain, nausea, vomiting, diarrhea, constipation, blood in stool, blood in vomit : Negative for any urinary frequency, dysuria, retention, blood in urine Muscle skeletal: Negative for any myalgias, arthralgias, neck pain, back pain Neurological: Negative for any headache, paresthesias. Positive for dizziness, near syncope Skin: Negative for any rashes, lumps, itching, abrasions, lacerations Psychiatric: Negative for any depression, anxiety, stress, suicidal ideation, homicidal ideation Hematologic: Negative for any easy bruising, excessive bruising, easy bleeding Allergies: Negative for any eczema, hives, rash EXAM <KENRICK Alatorre - Last Filed: 08/05/23 20:59> Physical Exam Narrative Exam Narrative: Vital signs reviewed. HEET: Head normocephalic atraumatic, TMs clear bilaterally. Posterior pharynx is clear, dry mucous membranes. Nares clear bilaterally. Neck: Supple with no lymphadenopathy or tenderness. No signs of meningismus. Cardiac: Regular rate and rhythm no murmurs gallops or rubs, equal peripheral pulses bilaterally. Respiratory: Diminished lung sounds to the bases. This could be secondary to body habitus.. No chest tenderness. Abdomen: Soft, nontender, nondistended. No abdominal bruit or pulsatile masses. No hepatosplenomegaly Extremities: No peripheral edema, no signs of gross trauma or deformity. Active full range of motion of all extremities. Neuro: Cranial nerves II through XII intact, no focal neurological deficits. Juve-Hallpike was negative. Skin: Clean dry and intact with no rash, purpura, petechiae, vesicles or pustules. Backs/flank: No CVA tenderness, no midline spinal tenderness, no deformity. Psych: Normal mood and affect. No SI, HI or acute psychosis. Const Vital Signs: 08/05/23 13:00 08/05/23 14:28 08/05/23 14:34 Temperature 97.2 F L Temperature Source Temporal Pulse Rate 70 Pulse Rate [Lying] 70 Pulse Rate [Sitting (for 1 minute prior to obtaining)] 70 Pulse Rate [Standing (for 1 minute prior to obtaining)] 78 Respiratory Rate 16 Respiratory Effort Normal Non-Labored Respiratory Pattern Normal Blood Pressure 127/61 H Blood Pressure [Lying] 120/54 L Blood Pressure [Sitting (for 1 minute prior to obtaining)] 126/51 H Blood Pressure [Standing (for 1 minute prior to obtaining)] 102/79 Blood Pressure Mean 83 Blood Pressure Mean [Lying] 76 Blood Pressure Mean [Sitting (for 1 minute prior to obtaining)] 76 Blood Pressure Mean [Standing (for 1 minute prior to obtaining)] 86 Pulse Ox 100 Oxygen Delivery Method Room Air 08/05/23 17:12 08/05/23 17:27 08/05/23 18:18 Temperature Temperature Source Pulse Rate 70 70 Pulse Rate [Lying] 70 Pulse Rate [Sitting (for 1 minute prior to obtaining)] 70 Pulse Rate [Standing (for 1 minute prior to obtaining)] 70 Respiratory Rate 22 H 20 H Respiratory Effort Respiratory Pattern Blood Pressure 129/49 H 116/60 Blood Pressure [Lying] 121/56 H Blood Pressure [Sitting (for 1 minute prior to obtaining)] 127/85 H Blood Pressure [Standing (for 1 minute prior to obtaining)] 126/57 H Blood Pressure Mean 75 78 Blood Pressure Mean [Lying] 77 Blood Pressure Mean [Sitting (for 1 minute prior to obtaining)] 99 Blood Pressure Mean [Standing (for 1 minute prior to obtaining)] 80 Pulse Ox 97 96 Oxygen Delivery Method Room Air <Dr. Obed Ureña MD - Last Filed: 08/05/23 21:05> Physical Exam Const Vital Signs: 08/05/23 13:00 08/05/23 14:28 08/05/23 14:34 Temperature 97.2 F L Temperature Source Temporal Pulse Rate 70 Pulse Rate [Lying] 70 Pulse Rate [Sitting (for 1 minute prior to obtaining)] 70 Pulse Rate [Standing (for 1 minute prior to obtaining)] 78 Respiratory Rate 16 Respiratory Effort Normal Non-Labored Respiratory Pattern Normal Blood Pressure 127/61 H Blood Pressure [Lying] 120/54 L Blood Pressure [Sitting (for 1 minute prior to obtaining)] 126/51 H Blood Pressure [Standing (for 1 minute prior to obtaining)] 102/79 Blood Pressure Mean 83 Blood Pressure Mean [Lying] 76 Blood Pressure Mean [Sitting (for 1 minute prior to obtaining)] 76 Blood Pressure Mean [Standing (for 1 minute prior to obtaining)] 86 Pulse Ox 100 Oxygen Delivery Method Room Air 08/05/23 17:12 08/05/23 17:27 08/05/23 18:18 Temperature Temperature Source Pulse Rate 70 70 Pulse Rate [Lying] 70 Pulse Rate [Sitting (for 1 minute prior to obtaining)] 70 Pulse Rate [Standing (for 1 minute prior to obtaining)] 70 Respiratory Rate 22 H 20 H Respiratory Effort Respiratory Pattern Blood Pressure 129/49 H 116/60 Blood Pressure [Lying] 121/56 H Blood Pressure [Sitting (for 1 minute prior to obtaining)] 127/85 H Blood Pressure [Standing (for 1 minute prior to obtaining)] 126/57 H Blood Pressure Mean 75 78 Blood Pressure Mean [Lying] 77 Blood Pressure Mean [Sitting (for 1 minute prior to obtaining)] 99 Blood Pressure Mean [Standing (for 1 minute prior to obtaining)] 80 Pulse Ox 97 96 Oxygen Delivery Method Room Air [facility] <Mani DuarteKENRICK - Last Filed: 08/05/23 20:59> [facility] Lab Data Labs: Laboratory Results - last 24 hr 08/05/23 08/05/23 08/05/23 13:55 14:30 16:10 WBC 3.5 L RBC 3.48 L Hgb 10.0 L Hct 31.5 L MCV 90.5 MCH 28.7 MCHC 31.7 L RDW Std Deviation 55.9 H RDW Coeff of Flavio 17.0 H Plt Count 150 MPV 9.6 Immature Gran % (Auto) 0.600 Neut % (Auto) 62.5 Lymph % (Auto) 19.5 Miner % (Auto) 13.8 H Eos % (Auto) 2.8 Baso % (Auto) 0.8 Absolute Neuts (auto) 2.2 Absolute Lymphs (auto) 0.69 L Nucleated RBC % 0 Sodium 143 Potassium 4.2 Chloride 111 H Carbon Dioxide 22.0 Anion Gap 10 BUN 48 H Creatinine 2.21 H Estim Creat Clear Calc 27.31 Est GFR (MDRD) Af Amer 37 L Est GFR (MDRD) Non-Af 30 L BUN/Creatinine Ratio 21.7 H Glucose 142 H Calcium 8.8 Troponin I High Sens 21 16 B-Natriuretic Peptide 388.2 H Urine Color Yellow Urine Clarity Clear Urine pH 6.0 Ur Specific [place] 1.010 Urine Protein Negative Urine Glucose (UA) Normal Urine Ketones Negative Urine Occult Blood Negative Urine Nitrite Negative Urine Bilirubin Negative Urine Urobilinogen Normal Ur Leukocyte Esterase Negative Urine RBC 0 SEEN Urine WBC 0 SEEN Ur Squamous Epith Cells 0 SEEN Urine Bacteria 0 SEEN Urine Mucus 0 SEEN Radiography Diagnostic Testing: Clinical Impression(s) from Imaging Studies Chest X-Ray 08/05/23 13:57 IMPRESSION: Mild cardiomegaly. No acute abnormality is seen. Electronically Signed: Leo Fay MD at 14:09 EST , Brain CT 08/05/23 14:47 IMPRESSION: Normal unenhanced CT scan of the brain. Electronically Signed: Leo Fay MD at 15:30 EST , Treatment and Re-Evaluation :: Patient appears to be in no obvious distress. Patient's vital signs are stable. Patient presents to the emergency department for generalized weakness, near syncopal episode x 2. Patient neuroexam was unremarkable. Differential diagnose includes CVA, vertigo, orthostatic hypotension, cardiac dysrhythmia. Patient received a full cardiac workup including 2 sets of troponins. Patient received basic laboratory values looking for any anemia, electrolyte abnormality, kidney function. Patient received a CT scan of the brain,, and 1 view chest x-ray. COVID/influenza will be completed. I will perform orthostatic vital signs, I would not immediately start IV fluids secondary to history of CHF, concern for fluid overload. Patient's laboratory values show leukopenia with a white blood count of 3.5, this is baseline. Patient's hemoglobin is 10.0, this is also baseline. Patient's chemistries show a renal insufficiency with a creatinine 2.21 however this seems baseline over the last several months. Patient's BNP is slightly elevated at 388, initial troponin was 21, repeat will be drawn. Patient did receive orthostatic vital signs, patient did have positive orthostatic vital signs. When patient stood up, the patient dropped from 126/51 with a heart rate of 76-102/70 9 with a heart rate of 86. Patient was given 500 cc of normal saline. Patient be reevaluated after bolus. After bolus, patient was able to ambulate around the department with his walker without any dizziness. At this time, I do believe the patient stable for discharge. Is no evidence of any ACS, MD, pneumonia, electrolyte imbalance, acute kidney injury. Patient struck to maintain hydration, he will follow-up outpatient. He was given strict return precaution. Instructed to change positions slowly. Stable for discharge <Dr. Obed Ureña MD - Last Filed: 08/05/23 21:05> [facility] Narrative Medical decision making narrative: I have personally performed a face to face assessment of the patient and have reviewed the PEPE Note. I performed a substantive portion of the visit including all aspects of the following. My frederick findings include: History is remarkable for near single episode x 2. Patient apparently was standing at the sink doing dishes for an hour. He became lightheaded. He denied diaphoresis. He denied chest discomfort or shortness of breath. He denies history of PE or DVT. He did have surgery left foot approximately 2 weeks ago. He has a walking boot on. He denies leg pain, swelling discoloration. He denies abdominal pain. He denies black or maroon-colored stool. He denies fever or chills. He states he has had problems with lightheadedness and almost passing out in the past. Review of prior records indicates patient has history of wide-complex tachycardia as well as sick sinus syndrome. He does have a pacemaker. He also has history of congestive heart failure. Patient does not give symptoms of hypoglycemia. He does have history of type 2 diabetes. He is on an anticoagulant. He is on Eliquis. He states he did not hit his head. He states he held onto the counter preventing him from falling to the floor. Exam is for patient being very hard of hearing. HEENT exam is unremarkable with no evidence of trauma. Trachea is midline. There is no carotid bruit over the right or left carotid artery. Patient has a regular heart rate. Monitor reveals a paced rhythm. Lungs reveal rales at both bases. He is supine. Abdomen is soft flabby nontender. There is no palpable pulsatile mass or abdominal bruit. Lower extremity exam reveals mild pitting edema of both the right and left leg and foot. He is alert oriented x 3. Cranials 2 through 12 are intact. There is no dysmetria. Motor or sensory are intact. Medical Decision Making suspect patient had a vasovagal near syncopal episode. However since has had multiple episodes has significant cardiac history we will obtain CBC to assess white count and rule out anemia. BMP to assess renal function. Troponins was ordered to rule out atypical presentation for cardiac ischemia. Patient was placed on the monitor. Monitor reveals paced rhythm AV sequential. Chest x-ray was entirely reviewed interpreted by me as negative for any acute pathology. He is slightly rotated. Cardiac silhouette may be slightly enlarged/borderline in size. There is no effusion or infiltrate noted. There is no evidence of congestive heart failure. Mediastinum is unremarkable. Osseous structures are unremarkable. He does have a dual-chamber pacemaker noted. Other additions or changes: Prior records case patient has history of new pi?a. Lab Data Attestation: I reviewed the patient's lab results. Lab results narrative: Patient is mildly neutropenic and anemic. Will need to compare to prior. Urinalysis is negative. BNP is slightly elevated. Labs: Laboratory Results - last 24 hr 08/05/23 08/05/23 08/05/23 13:55 14:30 16:10 WBC 3.5 L RBC 3.48 L Hgb 10.0 L Hct 31.5 L MCV 90.5 MCH 28.7 MCHC 31.7 L RDW Std Deviation 55.9 H RDW Coeff of Flavio 17.0 H Plt Count 150 MPV 9.6 Immature Gran % (Auto) 0.600 Neut % (Auto) 62.5 Lymph % (Auto) 19.5 Miner % (Auto) 13.8 H Eos % (Auto) 2.8 Baso % (Auto) 0.8 Absolute Neuts (auto) 2.2 Absolute Lymphs (auto) 0.69 L Nucleated RBC % 0 Sodium 143 Potassium 4.2 Chloride 111 H Carbon Dioxide 22.0 Anion Gap 10 BUN 48 H Creatinine 2.21 H Estim Creat Clear Calc 27.31 Est GFR (MDRD) Af Amer 37 L Est GFR (MDRD) Non-Af 30 L BUN/Creatinine Ratio 21.7 H Glucose 142 H Calcium 8.8 Troponin I High Sens 21 16 B-Natriuretic Peptide 388.2 H Urine Color Yellow Urine Clarity Clear Urine pH 6.0 Ur Specific [place] 1.010 Urine Protein Negative Urine Glucose (UA) Normal Urine Ketones Negative Urine Occult Blood Negative Urine Nitrite Negative Urine Bilirubin Negative Urine Urobilinogen Normal Ur Leukocyte Esterase Negative Urine RBC 0 SEEN Urine WBC 0 SEEN Ur Squamous Epith Cells 0 SEEN Urine Bacteria 0 SEEN Urine Mucus 0 SEEN Radiography Chest X-Ray - ED: 1 View and Read by ED Physician (Patient has cardiomegaly. Cardiac silhouette and size normal. Lung parenchyma is normal. There is no cephalization or curly B-lines noted. Is no effusion. Perihilar regions normal. Osseous structures unremarkable.) Diagnostic Testing: Clinical Impression(s) from Imaging Studies Chest X-Ray 08/05/23 13:57 IMPRESSION: Mild cardiomegaly. No acute abnormality is seen. Electronically Signed: Leo Fay MD at 14:09 EST , Brain CT 08/05/23 14:47 IMPRESSION: Normal unenhanced CT scan of the brain. Electronically Signed: Leo Fay MD at 15:30 EST , CT was reviewed and is unremarkable. Discharge Plan Triage Chief Complaint: Syncope Other Complaint: Weakness ED Midlevel Provider: Mani Duarte ED Provider: Obed Ureña Dx/Rx/DC Orders Clinical Impression: Orthostatic hypotension, Chronic kidney disease, Dehydration Instructions: Blood Pressure Check Steps, ED Hypotension, Orthostatic, ED Fainting, Uncertain Cause Prescriptions: No Action pramipexole [Mirapex] 1 mg tablet 2 mg PO QHS Qty: 180 3RF famotidine 40 mg tablet 40 mg PO DAILY amoxicillin-pot clavulanate 875-125 mg tablet 1 tab PO Q12H Qty: 14 0RF nitroglycerin 0.4 mg Tablet, Sublingual 0.4 mg sublingual Q5M PRN (Reason: Cardiac/Chest Pain) 30 Days Qty: 30 0RF acetaminophen 500 mg Tablet 1,000 mg PO Q8H PRN PRN (Reason: Pain) Qty: 30 0RF metoprolol succinate 25 mg tablet extended release 24 hr 12.5 mg PO DAILY hydralazine 50 mg tablet 75 mg PO BID sertraline 25 mg tablet 25 mg PO DAILY furosemide [Lasix] 40 mg tablet 60 mg PO DAILY Qty: 45 0RF finasteride 5 mg tablet 5 mg PO DAILY Qty: 90 3RF ergocalciferol (vitamin D2) 1,250 mcg (50,000 unit) capsule 50,000 unit PO QMONTH Qty: 14 1RF ferrous sulfate 325 mg (65 mg iron) tablet 325 mg PO Qty: 90 1RF Rx Instructions: only dulaglutide 4.5 mg/0.5 mL pen injector 4.5 mg SC .COMPLEX 90 Days Qty: 2 2RF Rx Instructions: 4.5 mg subcut every friday Eliquis 2.5 mg tablet 2.5 mg PO BID Qty: 180 3RF atorvastatin 10 mg tablet 10 mg PO QHS Qty: 90 3RF (DME) pen needle, diabetic [BD Ultra-Fine Mini Pen Needle] 31 gauge x 3/16 needle See Rx Instructions .Route Qty: 100 4RF Rx Instructions: As directed amiodarone 200 mg tablet 200 mg PO DAILY Qty: 90 3RF insulin glargine-yfgn [Semglee(insulin glarg-yfgn)Pen] 100 unit/mL (3 mL) insulin pen 28 unit SUBCUT DAILY 90 Days Qty: 25.2 1RF fluticasone propionate 50 mcg/actuation spray,suspension 2 spray intranasal DAILY Qty: 16 3RF progesterone micronized 100 mg capsule 100 mg PO QAM Qty: 90 3RF (DME) lancets [OneTouch Delica Plus Lancet] 30 gauge misc See Rx Instructions .Route Qty: 100 4RF Rx Instructions: As directed; Check BG 2-3 times daily for DMII Primary Care Provider: Tosha Shrestha Referrals: Tosha Shrestha MD [Primary Care Provider] - Activity Restrictions/Additional Instructions: Please maintain your hydration. Please change positions slowly. Return for any worsening symptoms Disposition Disposition: Home, Self Care Discharge Date/Time: 08/05/23 18:25
--- NOTE | 2023-08-05 13:57 | RAD_ITS ---
STUDY: X-RAY CHEST REASON FOR EXAM: Male, 83 years old. Chest pain TECHNIQUE: Single AP portable view of the chest. COMPARISON: Comparison is made with prior study dated June 23, 2023. FINDINGS: EKG electrodes are seen. The lungs are clear and expanded. There is no demonstrated pleural abnormality. There is mild cardiac enlargement. A left-sided dual-chamber pacemaker is seen. Once again, a loop recorder device is seen overlying the left cardiac border. Normal mediastinum and lakhwinder. Normal visualized pulmonary arteries. There is atherosclerotic calcification of the aortic arch with tortuosity. There are diffuse degenerative changes of the visualized thoracic spine. Normal visualized ribs, clavicles, and shoulders. There is no demonstrated abnormality of the visualized soft tissue structures of the upper abdomen. RAD/Chest 1 View (Portable) IMPRESSION: Mild cardiomegaly. No acute abnormality is seen. Electronically Signed: Leo Fay MD at 14:09 EST ,
[2023-08-05 14:04] LABS: Absolute Lymphocyte Count 0.69 X10^3/uL (0.83-4.51); Absolute Neutrophil Count 2.2 X10^3/uL (2.0-7.7); Basophil# 0.03 X10^3/uL; Basophil% 0.8 % (0-1); Eosinophils% 2.8 % (0-5); Hematocrit 31.5 % (40-54); Lymphocyte # 0.69 X10^3/ul (0.83-4.51); Lymphocyte % 19.5 % (19-41); Mean Corp Hgb Conc 31.7 g/dL (32-36); Mean Corpuscular Hgb 28.7 pg (27.0-32.0); Mean Corpuscular Volume 90.5 fL (80-94); Mean Platelet Vol. 9.6 fl (6.2-12.0); Monocyte# 0.49 X10^3/uL; Monocyte% 13.8 % (0-10); NRBC Flagged by Analyzer 0 % (0-5); Neutrophil # 2.21 X10^3/uL (2.7-7.7); Neutrophil % 62.5 % (47-70); Platelet Count 150 K/mm3 (150-450); RBC Distribution Width SD 55.9 fl (35.1-43.9); Red Blood Count 3.48 M/mm3 (4.6-6.2); White Blood Count 3.5 K/mm3 (4.4-11.0)
[2023-08-05 14:26] LABS: BNP,B-Type NATRIURETIC PEPTIDE 388.2 pg/mL (0-100)
[2023-08-05 14:27] LABS: Anion Gap 10 (5-15); BUN 48 mg/dL (7-18); BUN/Creat Ratio 21.7 RATIO (10-20); Calcium,Total 8.8 mg/dL (8.5-10.1); Chloride 111 mmol/L (98-107); Creatinine, Serum 2.21 mg/dL (0.70-1.30); EST Glomerular Filtration Rate 30 mL/min (>60); Est Glom Filt Rate - Afr Amer 37 mL/min (>60); Estimated Creatinine Clearance 27.31 ml/min; Glucose 142 mg/dL (74-106); Potassium 4.2 mmol/L (3.5-5.1); Sodium Level 143 mmol/L (136-145); Troponin-I HS (w/2H Reflex) 21 pg/mL (3.0-78.0)
[2023-08-05 14:28] VITALS: BP 102/79; BP 120/54; BP 126/51; PULSE 70; PULSE 78
[2023-08-05 14:40] LABS: Bacteria 0 SEEN /hpf (None Seen); Mucous, Urine 0 SEEN /hpf (<or=2+); Red Blood Cells-Urine 0 SEEN /hpf (0-5); Squamous Epithelial Cells - UA 0 SEEN /hpf (0-5); White Blood Cells 0 SEEN /hpf (0-5)
--- NOTE | 2023-08-05 14:47 | CT_ITS ---
STUDY: CT BRAIN WITHOUT CONTRAST REASON FOR EXAM: Male, 83 years old. Syncope RADIATION DOSAGE (If Supplied By Facility): CTDIvol = ( 44.99 ) mGy, DLP = ( 846.73 ) mGycm TECHNIQUE: Transaxial CT imaging of the brain was performed without administration of intravenous contrast material. Individualized dose optimization techniques were used for this CT. COMPARISON: Comparison is made with prior study May 26, 2023. FINDINGS: Normal soft tissue structures. Normal calvarium. There is mild cerebral atrophy with widening of the extra-axial spaces and ventricular dilatation. There are areas of decreased attenuation within the white matter tracts of the supratentorial brain, consistent with microvascular disease changes. Normal basal ganglia and thalami. Normal brainstem. Normal cerebellum. There is no intracranial hemorrhage. There are no findings of an acute ischemic infarction. Atherosclerotic calcification of the vertebral arteries and cavernous portions of the internal carotid arteries bilaterally. Normal visualized paranasal sinuses. CT/Brain/Head without Contrast IMPRESSION: Normal unenhanced CT scan of the brain. Electronically Signed: Leo Fay MD at 15:30 EST ,
[2023-08-05 14:48] LABS: Color, Urine Yellow (Yellow); Glucose, Dipstick Normal (Normal); Ketone-Dipstick Negative (Negative); Leukocyte Esterase-Dipstick Negative /ul (Negative); Nitrite-Dipstick Negative (Negative); Occult Blood-Urine Negative /ul (Negative); Protein-Dipstick Negative (Negative); Urine Bilirubin Dipstick Negative (Negative); Urine Clarity Clear (Clear); Urine Urobilinogen Normal (Normal)
[2023-08-05] MEDS: Loperamide 2 MG Capsule PO (15:53)
[2023-08-05 16:02] LABS: Reflex Troponin-HS? (from REC) Y
[2023-08-05] MEDS: 0.9% Normal Saline (500mL Bag) 500 ML 999 ML IV (16:29)
[2023-08-05 16:56] LABS: Troponin-I HS 16 pg/mL (3.0-78.0)
[2023-08-05 17:12] VITALS: BP 121/56; BP 126/57; BP 127/85; PULSE 70
[2023-08-05 17:27] VITALS: BP 129/49; PULSE 70; RESP 22; O2SAT 97
[2023-08-05 18:18] VITALS: BP 116/60; PULSE 70; RESP 20; O2SAT 96
== END 2023-08-05 18:25 | disposition home or self-care (01) ==
PROVIDERS: Nurse Practitioner; Emergency Provider Emergency Medicine; PCP Internal Medicine; Visit Provider Emergency Medicine
DX: I95.1 Orthostatic hypotension (principal); I50.32 Chronic diastolic (congestive) heart failure; E11.22 Type 2 diabetes mellitus with diabetic chronic kidney disease; E11.42 Type 2 diabetes mellitus with diabetic polyneuropathy; N18.30 Chronic kidney disease, stage 3 unspecified; I25.10 Atherosclerotic heart disease of native coronary artery without angina pectoris; G47.33 Obstructive sleep apnea (adult) (pediatric); Z95.0 Presence of cardiac pacemaker; Z79.01 Long term (current) use of anticoagulants; Z86.718 Personal history of other venous thrombosis and embolism; Z86.73 Personal history of transient ischemic attack (TIA), and cerebral infarction without residual deficits
CPT/HCPCS: 70450; 71045; 80048; 81001; 83880; 84484; 85025; 87428; 93005; 99284; J7040; A4216

== ENCOUNTER 2023-08-20 13:11 | Inpatient (IN) | payer MEDICARE, BC, SELFPAY ==
[2023-08-20] VITALS (12 sets, daily range): BP systolic 115–143; BP diastolic 49–84; PULSE 60–70; RESP 14–21; TEMP 35.5–36.4; O2SAT 96–99; BMI 36.8; BMI 35.5
--- NOTE | 2023-08-20 13:52 | CT_ITS ---
HISTORY: Acute change in mental status. TECHNIQUE: Multiple axial images were obtained of the head without intravenous contrast. A radiation dose optimization technique was used for this scan. 265 images. COMPARISON: 08/05/2023. FINDINGS: BRAIN PARENCHYMA: Multiple foci and zones of low attenuation in the bilateral cerebral white matter compatible with chronic small vessel ischemic gliosis. No acute intra-axial hemorrhage identified. CSF SPACES: Generalized volume loss. No midline shift or other significant mass effect. No acute extra-axial hemorrhage seen. OTHER: Intact calvarium. No significant air fluid levels in the paranasal sinuses or mastoid air cells. Bilateral lens resections. CT/Brain/Head without Contrast IMPRESSION: No acute intracranial process identified. Chronic involutional and white matter changes. Electronically Signed: Marga Alejandro MD at 15:54 EST ,
--- OUTSIDE RECORDS SUMMARY | 2023-08-20 14:13 | XMS RPT_ITS | CCD ---
Author Name Unknown Address [address] [place] [address] Organization [facility] Results Test Name Value Interpretation Reference Range Facil ity Summary Purpose Family History No Family History Records Found Advance Directives No Advanced Directives Records Found Additional Source Comments (unrecognized sect ion and content) No Status Records Found INFORMATION SOURCE (unrecogn ized section and content) FOR RECORDS PERTAINING TO PATIENTS WHO ARE OR HAVE BEEN ENROLLED IN A CHEMICAL DEPENDENCY/SUBSTANCEABUSE PROGRAM, SOME INFORMATION MAY BE OMITTED. This clinical summary was aggregated from multiple sources. Caution should be exercised in using it in the provision of clinical care. This summary normalizes information from multiple sources, and as a consequence, information in this document may materially change the coding, format and clinical context of patient data. In addition, data may be omitted in some cases. CLINICAL DECISIONS SHOULD BE BASED ON THE PRIMARY CLINICAL RECORDS. [facility] [facility] provides no warranty or guarantee of the accuracy or completeness of information in this document.
--- NOTE | 2023-08-20 14:22 | EX.ED.DYSGE1 ---
HPI History of Present Illness Chief Complaint: Weakness Detail of Chief Complaint: Change in mental status, shakes and weakness Informant: spouse/S.O. 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 He is disoriented to time and place. He had a podiatry appointment prior to presenting to the emergency department. His brought him to the emergency department. He did not recognize Dr. Arredondo. The dressings were not taken down because the wounds were assessed by Dr. Arredondo and determined to be without infection per . The only positive review of systems is frequency. states she did not notice that he was having shakes as badly as he is presently having. Prior similar symptoms: No Recent Illness/Hospitalization: No PFSH PFS Medical History (HFpEF) heart failure with preserved ejection fraction (12/12/20) Acute dyspnea Acute on chronic diastolic HF (heart failure) Acute respiratory failure with hypoxia Anemia Anemia of chronic renal failure, stage 3 (moderate) Anxiety and depression Atherosclerotic heart disease of [place] coronary artery without angina pectoris Atrial flutter Atrial flutter Atypical chest pain Back pain BMI 34.0-34.9,adult BPH (benign prostatic hyperplasia) BPPV (benign paroxysmal positional vertigo) Bradycardia Cardiac dysrhythmia Cardiology follow-up encounter CHF (congestive heart failure) CHF (congestive heart failure) CHF (congestive heart failure) Chronic anticoagulation De Quervain's tenosynovitis Debility Depression Dermatitis Diabetes mellitus Diabetic kidney disease Dizziness DM type 2 with diabetic peripheral neuropathy DVT (deep venous thrombosis) Dyslipidemia Dysphagia Essential (primary) hypertension Fall Flu vaccine need Fracture of great toe Gastric reflux Generalized weakness Gout Gout flare Health care maintenance History of echocardiogram History of edema History of GI bleed History of peptic ulcer History of renal calculi History of ulceration HLD (hyperlipidemia) Hyperkalemia Injury of head and neck Iron deficiency anemia Iron deficiency anemia due to chronic blood loss Kidney hematoma (12/08/20) Left knee pain Left leg DVT Loss of equilibrium Low iron Malaise Near syncope Orthostatic hypotension MACHELLE (obstructive sleep apnea) Pain of left lower extremity Paroxysmal atrial fibrillation Paroxysmal atrial flutter Pneumonia Polypharmacy 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 Presence of cardiac pacemaker Prostate disease Psoriasis Recurrent syncope (06/19/22) Renal calculi RLS (restless legs syndrome) Sex disorder Sick sinus syndrome Suicidal ideation SVT (supraventricular tachycardia) TIA (transient ischemic attack) Toe pain, left Type 2 diabetes mellitus with diabetic polyneuropathy Urolithiasis Venous insufficiency of both lower extremities Vertigo Walker as ambulation aid Weakness Wears glasses Home Medications finasteride 5 mg tablet 5 mg PO DAILY PROSTATE #90 tabs 11/03/18 [Rx Last Taken 06/23/23] ergocalciferol (vitamin D2) 1,250 mcg (50,000 unit) capsule 50,000 unit PO QMONTH SUPPLEMENT #14 caps 11/29/22 [Rx Last Taken 06/18/23] nitroglycerin 0.4 mg sublingual tablet 0.4 mg sublingual Q5M PRN Cardiac/Chest Pain 30 days #30 tabs 12/03/22 [Rx Last Taken Unknown] metoprolol succinate 25 mg tablet,extended release 24 hr 12.5 mg PO DAILY BLOOD PRESSURE 12/07/22 [History Last Taken 06/23/23] furosemide 40 mg tablet (Lasix) 60 mg (1.5 x 40 mg) PO DAILY EDEMA #45 tabs 12/24/22 [Rx Last Taken 06/23/23] apixaban 2.5 mg tablet (Eliquis) 2.5 mg PO BID BLOOD THINNER #180 tabs 12/25/22 [Rx Last Taken 06/23/23] atorvastatin 10 mg tablet 10 mg PO QHS CHOLESTEROL #90 tabs 12/25/22 [Rx Last Taken 06/22/23] pen needle, diabetic 31 gauge x 3/16 (BD Ultra-Fine Mini Pen Needle) #100 ea 12/30/22 [Rx Last Taken Unknown] amiodarone 200 mg tablet 200 mg PO DAILY HEART #90 tabs 01/02/23 [Rx Last Taken Unknown] hydralazine 50 mg tablet 75 mg PO BID BLOOD PRESSURE 02/04/23 [History Last Taken Unknown] pramipexole 1 mg tablet (Mirapex) 2 mg (2 x 1 mg) PO QHS RESTLESS LEG SYNDROME #180 tabs 02/04/23 [Rx Last Taken 06/22/23] sertraline 25 mg tablet 25 mg PO DAILY DEPRESSION 02/04/23 [History Last Taken Unknown] fluticasone propionate 50 mcg/actuation nasal spray,suspension 2 spray intranasal DAILY NASAL CONGESTION #16 grams 06/24/23 [Rx Last Taken Unknown] progesterone micronized 100 mg capsule 100 mg PO QAM HORMONE REPLACEMENT #90 caps 07/03/23 [Rx Last Taken Unknown] lancets 30 gauge (High Side SolutionsTouch Delica Plus Lancet) #100 ea 07/22/23 [Rx Last Taken Unknown] walker (Ultra-Light Rollator misc) #1 ea 08/13/23 [Rx Last Taken Unknown] famotidine 40 mg tablet 40 mg PO DAILY ACID REFLUX #30 tabs 08/15/23 [Rx Last Taken Unknown] ferrous sulfate 325 mg (65 mg iron) tablet 325 mg PO TH supplement #90 tabs 08/15/23 [Rx Last Taken Unknown] dulaglutide 4.5 mg/0.5 mL subcutaneous pen injector 4.5 mg subcut FR DIABETES 08/20/23 [History Last Taken Unknown] insulin glargine-yfgn 100 unit/mL (3 mL) subcutaneous pen (Semglee (insulin glargine-yfgn) Pen) 32 unit subcut DAILY DIABETES 08/20/23 [History Last Taken Unknown] simvastatin .ROUTE 08/20/23 [History Last Taken Unknown] Allergy/AdvReac Type Severity Reaction Status Date / Time hydrocodone bitartrate AdvReac Severe Other Verified 08/20/23 13:12 [From Vicodin] hydroxyzine AdvReac Severe Other Verified 08/20/23 13:12 doxycycline AdvReac Intermediate Shortness Verified 08/20/23 13:12 of breath (had CHF also, may not be true allergy Family History Father Diabetes Hypertension Cancer Lung cancer Mother Hypertension CVA (cerebral vascular accident) Sister Diabetes Son Diabetes Surgical History History of cardioversion (2015) History of cataract surgery History of left heart catheterization (02/16/13) History of lithotripsy (11/2020) History of loop recorder (06/26/22) History of radiofrequency ablation procedure for cardiac arrhythmia (02/05/06) history of right knee cap fracture History of right knee surgery Status post laser lithotripsy of ureteral calculus Status post left foot surgery STENT PLACEMENT FOR KIDNEY STONE Social History household members: spouse housing: house Smoking Status: Never smoker how long ago did patient quit smokin second hand exposure: No alcohol intake: never substance use type: does not use caffeine: No what type of physical activity do you participate in: none seatbelt use: always do you feel safe at home: Yes ROS ROS ED Review of Systems ROS Unobtainable: due to mental status EXAM Physical Exam Const Vital Signs: 08/20/23 13:13 08/20/23 13:52 08/20/23 14:12 Temperature 95.9 F L Temperature Source Temporal Pulse Rate 70 70 Respiratory Rate 14 18 Respiratory Effort Short of Breath Respiratory Pattern Normal Blood Pressure 143/49 H 123/57 H Blood Pressure Mean 80 79 Pulse Ox 97 98 Oxygen Delivery Method Room Air Room Air 08/20/23 15:13 08/20/23 16:00 08/20/23 17:05 Temperature Temperature Source Pulse Rate 70 70 70 Respiratory Rate 17 19 H 18 Respiratory Effort Respiratory Pattern Blood Pressure 115/84 H 129/58 H 136/68 H Blood Pressure Mean 94 81 90 Pulse Ox 96 97 98 Oxygen Delivery Method Room Air Room Air Room Air 08/20/23 17:15 08/20/23 18:00 08/20/23 19:00 Temperature Temperature Source Pulse Rate 70 60 70 Respiratory Rate 18 14 21 H Respiratory Effort Respiratory Pattern Blood Pressure 136/68 H 141/74 H 117/71 Blood Pressure Mean 90 96 86 Pulse Ox 98 97 96 Oxygen Delivery Method Room Air Room Air Positive well nourished, well developed and obese Constitutional Narrative: Pain she did not appears to be jaundiced. General Appearance ED: well developed; Negative for pallor Nutritional Appearance: obese HEENT Reports dry mucous membranes HEENT Narrative: Head is atraumatic and normocephalic. Conjunctive is pink. Question scleral icterus. Uvula is midline. There is no deviation tongue with protrusion. Patient does have evidence of chipped teeth and probable caries. Mouth ED: Yes dry mucous membranes Mouth: dry mucous membranes Eyes PERRL and EOMs intact bilaterally General Eye ED: Yes scleral icterus; Negative for pale conjunctiva Neck no lymphadenopathy, supple and no JVD Neck Narrative: Trachea is midline. There is no stridor. There is no carotid bruit appreciated on the right or left. Chest Wall inspection of chest normal and palpation of chest normal Resp normal respiratory effort and clear to auscultation bilaterally Cardio regular rate, regular rhythm, S1 normal heart sound, S2 normal heart sound and no murmurs GI normal to inspection, nondistended, normoactive bowel sounds, non-tender, non-distended and no masses; Negative for hepatosplenomegaly Palpation: soft Back/Spine no CVA tenderness Thoracic Spine / Upper Back: Negative for thoracic spinal tenderness Lumbar Spine / Lower Back: Negative for lumbar spinal tenderness Extremity Extremity Narrative: Patient has marked pitting edema of the lower extremities. General Extremety ED: Yes edema General Extremity: edema Neuro No oriented x3, CN's II-XII intact bilaterally and no sensory deficits noted Neuro Narrative: Oriented only to person. Sensorium / Orientation: Negative for alert Motor Exam: strength 5/5 throughout Psych Mood & Affect: depressed Skin no rashes or lesions noted, no wounds and No skin turgor normal General Skin Exam: jaundice; Negative for pallor MDM MDM MDM Narrative Medical decision making narrative: Review of old records indicates patient does have history of transaminitis. Patient possibly could have hepatic encephalopathy since he appears jaundiced. With complaint of frequency need to rule out UTI. Because of the bibasilar rales chest x-ray was ordered. This may represent CHF versus pneumonia versus atelectasis. This also could be an unusual presentation for stroke. Will need to check blood sugars since patient is diabetic. states he checks his sugars regularly and they have been normal for him. Of note he is on Eliquis. Patient may have had an insignificant fall and have a traumatic head injury as well. For this reason will obtain CT of the head. History & Record Review Discussion w/independent historian: Significant other Additional record(s) reviewed:: Prior inpatient record and Prior labs Lab Data Attestation: I reviewed the patient's lab results. Lab results narrative: CBC reveals mild anemia. Patient has chronic anemia. H&H is within normal range for him. BUN is elevated 42 with a creatinine of 2.16. He has had prior or elevated creatinines. This is approximate baseline. Ammonia is elevated 60. BNP is slightly elevated 348. Troponin was normal. Total bili is slightly elevated 1.7. UA is unremarkable. Labs: Laboratory Results - last 24 hr 08/20/23 08/20/23 08/20/23 14:55 15:07 15:59 WBC 4.4 RBC 3.29 L Hgb 9.6 L Hct 31.0 L MCV 94.2 H MCH 29.2 MCHC 31.0 L RDW Std Deviation 57.5 H RDW Coeff of Flavio 16.7 H Plt Count 123 L MPV 9.8 Immature Gran % (Auto) 0.700 Neut % (Auto) 64.5 Lymph % (Auto) 19.3 [place] % (Auto) 12.6 H Eos % (Auto) 1.8 Baso % (Auto) 1.1 H Absolute Neuts (auto) 2.8 Absolute Lymphs (auto) 0.84 Nucleated RBC % 0 Sodium 140 Potassium 3.9 Chloride 112 H Carbon Dioxide 22.0 Anion Gap 6 BUN 42 H Creatinine 2.16 H Estim Creat Clear Calc 27.94 Est GFR (MDRD) Af Amer 38 L Est GFR (MDRD) Non-Af 31 L BUN/Creatinine Ratio 19.4 Glucose 160 H Calcium 9.0 Total Bilirubin 1.70 H AST 83 H ALT 48 Alkaline Phosphatase 274 H Ammonia 60.0 H Troponin I High Sens 16 B-Natriuretic Peptide 348.0 H Total Protein 6.6 Albumin 2.2 L Globulin 4.4 H Albumin/Globulin Ratio 0.5 L Urine Color Cancelled Urine Clarity Urine pH Ur Specific [place] U Specif Grav (Refrac) Urine Protein Urine Glucose (UA) Urine Ketones Urine Occult Blood Urine Nitrite Urine Bilirubin Urine Urobilinogen Ur Leukocyte Esterase Urine RBC Urine WBC Ur Squamous Epith Cells Ur Transition Epith Cell Ur Renal Epithelial Cell Calcium Oxalate Crystal Uric Acid Crystals Triple Phos Crystals Other Crystals Amorphous Sediment Urine Bacteria Hyaline Casts Fine Granular Casts Coarse Granular Casts Waxy Casts RBC Casts WBC Casts Urine Mucus Urine Trichomonas Urine Yeast 08/20/23 08/20/23 08/20/23 15:59 15:59 15:59 WBC RBC Hgb Hct MCV MCH MCHC RDW Std Deviation RDW Coeff of Flavio Plt Count MPV Immature Gran % (Auto) Neut % (Auto) Lymph % (Auto) [place] % (Auto) Eos % (Auto) Baso % (Auto) Absolute Neuts (auto) Absolute Lymphs (auto) Nucleated RBC % Sodium Potassium Chloride Carbon Dioxide Anion Gap BUN Creatinine Estim Creat Clear Calc Est GFR (MDRD) Af Amer Est GFR (MDRD) Non-Af BUN/Creatinine Ratio Glucose Calcium Total Bilirubin AST ALT Alkaline Phosphatase Ammonia Troponin I High Sens B-Natriuretic Peptide Total Protein Albumin Globulin Albumin/Globulin Ratio Urine Color Yellow Urine Clarity Cancelled Clear Urine pH Cancelled 5.0 Ur Specific [place] Cancelled U Specif Grav (Refrac) Urine Protein Urine Glucose (UA) Urine Ketones Urine Occult Blood Urine Nitrite Urine Bilirubin Urine Urobilinogen Ur Leukocyte Esterase Urine RBC Urine WBC Ur Squamous Epith Cells Ur Transition Epith Cell Ur Renal Epithelial Cell Calcium Oxalate Crystal Uric Acid Crystals Triple Phos Crystals Other Crystals Amorphous Sediment Urine Bacteria Hyaline Casts Fine Granular Casts Coarse Granular Casts Waxy Casts RBC Casts WBC Casts Urine Mucus Urine Trichomonas Urine Yeast 08/20/23 08/20/23 08/20/23 15:59 15:59 15:59 WBC RBC Hgb Hct MCV MCH MCHC RDW Std Deviation RDW Coeff of Flavio Plt Count MPV Immature Gran % (Auto) Neut % (Auto) Lymph % (Auto) [place] % (Auto) Eos % (Auto) Baso % (Auto) Absolute Neuts (auto) Absolute Lymphs (auto) Nucleated RBC % Sodium Potassium Chloride Carbon Dioxide Anion Gap BUN Creatinine Estim Creat Clear Calc Est GFR (MDRD) Af Amer Est GFR (MDRD) Non-Af BUN/Creatinine Ratio Glucose Calcium Total Bilirubin AST ALT Alkaline Phosphatase Ammonia Troponin I High Sens B-Natriuretic Peptide Total Protein Albumin Globulin Albumin/Globulin Ratio Urine Color Urine Clarity Urine pH Ur Specific [place] 1.010 U Specif Grav (Refrac) Cancelled Urine Protein Cancelled Negative Urine Glucose (UA) Cancelled Normal Urine Ketones Cancelled Urine Occult Blood Urine Nitrite Urine Bilirubin Urine Urobilinogen Ur Leukocyte Esterase Urine RBC Urine WBC Ur Squamous Epith Cells Ur Transition Epith Cell Ur Renal Epithelial Cell Calcium Oxalate Crystal Uric Acid Crystals Triple Phos Crystals Other Crystals Amorphous Sediment Urine Bacteria Hyaline Casts Fine Granular Casts Coarse Granular Casts Waxy Casts RBC Casts WBC Casts Urine Mucus Urine Trichomonas Urine Yeast 08/20/23 08/20/23 08/20/23 15:59 15:59 15:59 WBC RBC Hgb Hct MCV MCH MCHC RDW Std Deviation RDW Coeff of Flavio Plt Count MPV Immature Gran % (Auto) Neut % (Auto) Lymph % (Auto) [place] % (Auto) Eos % (Auto) Baso % (Auto) Absolute Neuts (auto) Absolute Lymphs (auto) Nucleated RBC % Sodium Potassium Chloride Carbon Dioxide Anion Gap BUN Creatinine Estim Creat Clear Calc Est GFR (MDRD) Af Amer Est GFR (MDRD) Non-Af BUN/Creatinine Ratio Glucose Calcium Total Bilirubin AST ALT Alkaline Phosphatase Ammonia Troponin I High Sens B-Natriuretic Peptide Total Protein Albumin Globulin Albumin/Globulin Ratio Urine Color Urine Clarity Urine pH Ur Specific [place] U Specif Grav (Refrac) Urine Protein Urine Glucose (UA) Urine Ketones Negative Urine Occult Blood Cancelled 10 H Urine Nitrite Cancelled Negative Urine Bilirubin Cancelled Urine Urobilinogen Ur Leukocyte Esterase Urine RBC Urine WBC Ur Squamous Epith Cells Ur Transition Epith Cell Ur Renal Epithelial Cell Calcium Oxalate Crystal Uric Acid Crystals Triple Phos Crystals Other Crystals Amorphous Sediment Urine Bacteria Hyaline Casts Fine Granular Casts Coarse Granular Casts Waxy Casts RBC Casts WBC Casts Urine Mucus Urine Trichomonas Urine Yeast 08/20/23 08/20/23 08/20/23 15:59 15:59 15:59 WBC RBC Hgb Hct MCV MCH MCHC RDW Std Deviation RDW Coeff of Flavio Plt Count MPV Immature Gran % (Auto) Neut % (Auto) Lymph % (Auto) [place] % (Auto) Eos % (Auto) Baso % (Auto) Absolute Neuts (auto) Absolute Lymphs (auto) Nucleated RBC % Sodium Potassium Chloride Carbon Dioxide Anion Gap BUN Creatinine Estim Creat Clear Calc Est GFR (MDRD) Af Amer Est GFR (MDRD) Non-Af BUN/Creatinine Ratio Glucose Calcium Total Bilirubin AST ALT Alkaline Phosphatase Ammonia Troponin I High Sens B-Natriuretic Peptide Total Protein Albumin Globulin Albumin/Globulin Ratio Urine Color Urine Clarity Urine pH Ur Specific [place] U Specif Grav (Refrac) Urine Protein Urine Glucose (UA) Urine Ketones Urine Occult Blood Urine Nitrite Urine Bilirubin Negative Urine Urobilinogen Cancelled Normal Ur Leukocyte Esterase Cancelled Negative Urine RBC Cancelled Urine WBC Ur Squamous Epith Cells Ur Transition Epith Cell Ur Renal Epithelial Cell Calcium Oxalate Crystal Uric Acid Crystals Triple Phos Crystals Other Crystals Amorphous Sediment Urine Bacteria Hyaline Casts Fine Granular Casts Coarse Granular Casts Waxy Casts RBC Casts WBC Casts Urine Mucus Urine Trichomonas Urine Yeast 08/20/23 08/20/23 08/20/23 15:59 15:59 15:59 WBC RBC Hgb Hct MCV MCH MCHC RDW Std Deviation RDW Coeff of Flavio Plt Count MPV Immature Gran % (Auto) Neut % (Auto) Lymph % (Auto) [place] % (Auto) Eos % (Auto) Baso % (Auto) Absolute Neuts (auto) Absolute Lymphs (auto) Nucleated RBC % Sodium Potassium Chloride Carbon Dioxide Anion Gap BUN Creatinine Estim Creat Clear Calc Est GFR (MDRD) Af Amer Est GFR (MDRD) Non-Af BUN/Creatinine Ratio Glucose Calcium Total Bilirubin AST ALT Alkaline Phosphatase Ammonia Troponin I High Sens B-Natriuretic Peptide Total Protein Albumin Globulin Albumin/Globulin Ratio Urine Color Urine Clarity Urine pH Ur Specific [place] U Specif Grav (Refrac) Urine Protein Urine Glucose (UA) Urine Ketones Urine Occult Blood Urine Nitrite Urine Bilirubin Urine Urobilinogen Ur Leukocyte Esterase Urine RBC 0-5 SEEN Urine WBC Cancelled 0 SEEN Ur Squamous Epith Cells Cancelled 0 SEEN Ur Transition Epith Cell Cancelled Ur Renal Epithelial Cell Cancelled Calcium Oxalate Crystal Cancelled Uric Acid Crystals Cancelled Triple Phos Crystals Cancelled Other Crystals Cancelled Amorphous Sediment Cancelled Urine Bacteria Cancelled Hyaline Casts Fine Granular Casts Coarse Granular Casts Waxy Casts RBC Casts WBC Casts Urine Mucus Urine Trichomonas Urine Yeast 08/20/23 08/20/23 15:59 15:59 WBC RBC Hgb Hct MCV MCH MCHC RDW Std Deviation RDW Coeff of Flavio Plt Count MPV Immature Gran % (Auto) Neut % (Auto) Lymph % (Auto) [place] % (Auto) Eos % (Auto) Baso % (Auto) Absolute Neuts (auto) Absolute Lymphs (auto) Nucleated RBC % Sodium Potassium Chloride Carbon Dioxide Anion Gap BUN Creatinine Estim Creat Clear Calc Est GFR (MDRD) Af Amer Est GFR (MDRD) Non-Af BUN/Creatinine Ratio Glucose Calcium Total Bilirubin AST ALT Alkaline Phosphatase Ammonia Troponin I High Sens B-Natriuretic Peptide Total Protein Albumin Globulin Albumin/Globulin Ratio Urine Color Urine Clarity Urine pH Ur Specific [place] U Specif Grav (Refrac) Urine Protein Urine Glucose (UA) Urine Ketones Urine Occult Blood Urine Nitrite Urine Bilirubin Urine Urobilinogen Ur Leukocyte Esterase Urine RBC Urine WBC Ur Squamous Epith Cells Ur Transition Epith Cell Ur Renal Epithelial Cell Calcium Oxalate Crystal Uric Acid Crystals Triple Phos Crystals Other Crystals Amorphous Sediment Urine Bacteria 0 SEEN Hyaline Casts Cancelled Fine Granular Casts Cancelled Coarse Granular Casts Cancelled Waxy Casts Cancelled RBC Casts Cancelled WBC Casts Cancelled Urine Mucus Cancelled 0 SEEN Urine Trichomonas Cancelled Urine Yeast Cancelled Radiography Chest X-Ray - ED: 1 View and Read by ED Physician (Cardiac silhouette and size are normal. Lung parenchyma reveals some mild chronic changes. There is no infiltrate or effusion noted. There is no pneumothorax. Mediastinum is normal. Osseous structures are unremarkable.) Diagnostic Testing: Clinical Impression(s) from Imaging Studies Brain CT 08/20/23 13:52 IMPRESSION: No acute intracranial process identified. Chronic involutional and white matter changes. Electronically Signed: Marga Alejandro MD at 15:54 EST , Chest X-Ray 08/20/23 15:25 IMPRESSION: No acute cardiopulmonary process identified. Electronically Signed: Marga Alejandro MD at 15:56 EST , Liver Ultrasound 08/20/23 18:34 IMPRESSION: Mild ascites with diffuse fatty liver. Cannot exclude early cirrhosis or chronic liver disease, correlation with liver function tests recommended. Multiple gallstones. Thickening of gallbladder wall, nonspecific in the context of ascites and liver disease. If there is clinical concern for acute cholecystitis, recommend follow-up with HIDA scan. Simple cyst within the right kidney measuring 1.7 cm with no further follow-up imaging recommended. Artifact versus nonobstructive stone measuring 6 mm. Electronically Signed: Danni Alvarado MD at 19:36 EST , Report by radiologist for both CAT scan and chest x-ray were read. EKG Initial EKG: Attestation: I personally reviewed and interpreted this EKG as follows: Interpretation: Paced (Rate is 70. QRS duration 184 ms. Cures duration 524 ms. [place] to left.) Management Discussion w/another healthcare provider: Hospitalist (Paged for admission for hepatic encephalopathy.) Treatment and Re-Evaluation :: With elevated ammonia will treat with lactulose for hepatic encephalopathy. Awaiting UA results. Discharge Plan Dx/Rx/DC Orders Clinical Impression: Acute hepatic encephalopathy, Chronic kidney disease, Type 2 diabetes mellitus with hyperglycemia, with long-term current use of insulin, Hypothermia, Bilateral lower extremity edema, Presence of cardiac pacemaker, Generalized weakness, Elevated blood pressure reading with diagnosis of hypertension Disposition Disposition: Acute Care Hospital [facility]
[2023-08-20 15:01] LABS: Absolute Lymphocyte Count 0.84 X10^3/uL (0.83-4.51); Absolute Neutrophil Count 2.8 X10^3/uL (2.0-7.7); Basophil# 0.05 X10^3/uL; Basophil% 1.1 % (0-1); Eosinophil# 0.08 X10^3/uL; Eosinophils% 1.8 % (0-5); Hemoglobin 9.6 g/dL (13.0-16.5); Lymphocyte # 0.84 X10^3/ul (0.83-4.51); Lymphocyte % 19.3 % (19-41); Mean Corpuscular Hgb 29.2 pg (27.0-32.0); Mean Corpuscular Volume 94.2 fL (80-94); Mean Platelet Vol. 9.8 fl (6.2-12.0); Monocyte# 0.55 X10^3/uL; Monocyte% 12.6 % (0-10); NRBC Flagged by Analyzer 0 % (0-5); Neutrophil % 64.5 % (47-70); Platelet Count 123 K/mm3 (150-450); RBC Distribution Width CV 16.7 % (11.6-14.6); RBC Distribution Width SD 57.5 fl (35.1-43.9); Red Blood Count 3.29 M/mm3 (4.6-6.2); White Blood Count 4.4 K/mm3 (4.4-11.0)
[2023-08-20 15:25] LABS: ALB/GLOB Ratio 0.5 RATIO (0.9-2.4); AST(SGOT) 83 U/L (15-37); Alanine Aminotransfer ALT/SGPT 48 U/L (16-61); Albumin, Serum 2.2 g/dL (3.2-5.0); Alkaline Phosphatase 274 U/L (45-117); Anion Gap 6 (5-15); BUN 42 mg/dL (7-18); BUN/Creat Ratio 19.4 RATIO (10-20); Chloride 112 mmol/L (98-107); Creatinine, Serum 2.16 mg/dL (0.70-1.30); EST Glomerular Filtration Rate 31 mL/min (>60); Est Glom Filt Rate - Afr Amer 38 mL/min (>60); Estimated Creatinine Clearance 27.94 ml/min; Globulin 4.4 g/dL (2.2-4.2); Glucose 160 mg/dL (74-106); Potassium 3.9 mmol/L (3.5-5.1); Protein, Total 6.6 g/dL (6.4-8.2); Sodium Level 140 mmol/L (136-145); Troponin-I HS 16 pg/mL (3.0-78.0)
--- NOTE | 2023-08-20 15:25 | RAD_ITS ---
HISTORY: Bibasilar rales. TECHNIQUE: XR Chest 2 Views. COMPARISON: 08/05/2023. FINDINGS: CARDIOMEDIASTINAL BORDERS: Cardiac silhouette and mediastinal contour unchanged with borderline cardiomegaly, pacemaker, and loop recorder in the left chest. LUNGS: Chronic bibasilar atelectasis or scarring. PLEURA: No pleural effusion or pneumothorax seen. OSSEOUS STRUCTURES: Degenerative change. RAD/Chest PA and Lateral IMPRESSION: No acute cardiopulmonary process identified. Electronically Signed: Marga Alejandro MD at 15:56 EST ,
[2023-08-20 16:21] LABS: Bacteria 0 SEEN /hpf (None Seen); Mucous, Urine 0 SEEN /hpf (<or=2+); Squamous Epithelial Cells - UA 0 SEEN /hpf (0-5); White Blood Cells 0 SEEN /hpf (0-5)
[2023-08-20 16:35] LABS: Color, Urine Yellow (Yellow); Glucose, Dipstick Normal (Normal); Ketone-Dipstick Negative (Negative); Leukocyte Esterase-Dipstick Negative /ul (Negative); Nitrite-Dipstick Negative (Negative); Occult Blood-Urine 10 /ul (Negative); Protein-Dipstick Negative (Negative); Urine Bilirubin Dipstick Negative (Negative); Urine Clarity Clear (Clear); Urine Urobilinogen Normal (Normal)
[2023-08-20 16:46] LABS: Red Blood Cells-Urine 0-5 SEEN /hpf (0-5)
[2023-08-20] MEDS: Lactulose 20 GM/30 ML UDC PO ×2 (16:53→21:37)
--- NOTE | 2023-08-20 17:55 | NURSING ---
DR DAVI BARTON
--- NOTE | 2023-08-20 18:25 | PCM.HP.STD ---
HPI - General General Date of Admission: 08/20/23 Date of Service: 08/20/23 Chief Complaint: Weakness and confusion HPI Narrative MARY SAN, is a 83 M with a history of bradycardia status post permanent pacemaker in September 2022, CKD stage IIIb, type 2 diabetes mellitus, gout, MACHELLE, chronic HFpEF who presented to [facility] 08/20/2023 due to worsening weakness and confusion. In the ED patient with Bili slightly up at 1.7 with AST 83, ALT 48, alk phos 274 and patient was confused, ammonia was found to be 60 and he was given lactulose with some improvement in mental status however still somewhat tired, confused, feeling dizzy so hospitalist contacted for admission for hepatic encephalopathy. Patient evaluated with at bedside, difficult to get definitive timeline however it sounds that patient has been having dizzy and lightheaded spells for months and intermittently has weakness to the point where he has difficulty walking with his walker. endorses that today she took him to his podiatry appointment and while his toe is healing well and he can follow-up again in 2 weeks he was confused and did not even recognize his physician, Dr. Arredondo, prompting patient to come to the ED. Patient denies abdominal pain, diarrhea, constipation, nausea or vomiting. Denies chest pain or shortness of breath. Reports his main complaints are dizzy and lightheadedness primarily when standing up and walking as well as some waxing and waning weakness and intermittent confusion for a while . Patient also more tired today per . After receiving lactulose in the ED patient is mentating somewhat better and waking up better but still is not at baseline. [facility] Medical History (HFpEF) heart failure with preserved ejection fraction (12/12/20) Acute dyspnea Acute on chronic diastolic HF (heart failure) Acute respiratory failure with hypoxia Anemia Anemia of chronic renal failure, stage 3 (moderate) Anxiety and depression Atherosclerotic heart disease of [place] coronary artery without angina pectoris Atrial flutter Atrial flutter Atypical chest pain Back pain BMI 34.0-34.9,adult BPH (benign prostatic hyperplasia) BPPV (benign paroxysmal positional vertigo) Bradycardia Cardiac dysrhythmia Cardiology follow-up encounter CHF (congestive heart failure) CHF (congestive heart failure) CHF (congestive heart failure) Chronic anticoagulation De Quervain's tenosynovitis Debility Depression Dermatitis Diabetes mellitus Diabetic kidney disease Dizziness DM type 2 with diabetic peripheral neuropathy DVT (deep venous thrombosis) Dyslipidemia Dysphagia Essential (primary) hypertension Fall Flu vaccine need Fracture of great toe Gastric reflux Generalized weakness Gout Gout flare Health care maintenance History of echocardiogram History of edema History of GI bleed History of peptic ulcer History of renal calculi History of ulceration HLD (hyperlipidemia) Hyperkalemia Injury of head and neck Iron deficiency anemia Iron deficiency anemia due to chronic blood loss Kidney hematoma (12/08/20) Left knee pain Left leg DVT Loss of equilibrium Low iron Malaise Near syncope Orthostatic hypotension MACHELLE (obstructive sleep apnea) Pain of left lower extremity Paroxysmal atrial fibrillation Paroxysmal atrial flutter Pneumonia Polypharmacy 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 Presence of cardiac pacemaker Prostate disease Psoriasis Recurrent syncope (06/19/22) Renal calculi RLS (restless legs syndrome) Sex disorder Sick sinus syndrome Suicidal ideation SVT (supraventricular tachycardia) TIA (transient ischemic attack) Toe pain, left Type 2 diabetes mellitus with diabetic polyneuropathy Urolithiasis Venous insufficiency of both lower extremities Vertigo Walker as ambulation aid Weakness Wears glasses Home Medications finasteride 5 mg tablet 5 mg PO DAILY PROSTATE #90 tabs 11/03/18 [Rx Last Taken 06/23/23] ergocalciferol (vitamin D2) 1,250 mcg (50,000 unit) capsule 50,000 unit PO QMONTH SUPPLEMENT #14 caps 11/29/22 [Rx Last Taken 06/18/23] nitroglycerin 0.4 mg sublingual tablet 0.4 mg sublingual Q5M PRN Cardiac/Chest Pain 30 days #30 tabs 12/03/22 [Rx Last Taken Unknown] metoprolol succinate 25 mg tablet,extended release 24 hr 12.5 mg PO DAILY BLOOD PRESSURE 12/07/22 [History Last Taken 06/23/23] furosemide 40 mg tablet (Lasix) 60 mg (1.5 x 40 mg) PO DAILY EDEMA #45 tabs 12/24/22 [Rx Last Taken 06/23/23] apixaban 2.5 mg tablet (Eliquis) 2.5 mg PO BID BLOOD THINNER #180 tabs 12/25/22 [Rx Last Taken 06/23/23] atorvastatin 10 mg tablet 10 mg PO QHS CHOLESTEROL #90 tabs 12/25/22 [Rx Last Taken 06/22/23] pen needle, diabetic 31 gauge x 3/16 (BD Ultra-Fine Mini Pen Needle) #100 ea 12/30/22 [Rx Last Taken Unknown] amiodarone 200 mg tablet 200 mg PO DAILY HEART #90 tabs 01/02/23 [Rx Last Taken Unknown] hydralazine 50 mg tablet 75 mg PO BID BLOOD PRESSURE 02/04/23 [History Last Taken Unknown] pramipexole 1 mg tablet (Mirapex) 2 mg (2 x 1 mg) PO QHS RESTLESS LEG SYNDROME #180 tabs 02/04/23 [Rx Last Taken 06/22/23] sertraline 25 mg tablet 25 mg PO DAILY DEPRESSION 02/04/23 [History Last Taken Unknown] fluticasone propionate 50 mcg/actuation nasal spray,suspension 2 spray intranasal DAILY NASAL CONGESTION #16 grams 06/24/23 [Rx Last Taken Unknown] progesterone micronized 100 mg capsule 100 mg PO QAM HORMONE REPLACEMENT #90 caps 07/03/23 [Rx Last Taken Unknown] lancets 30 gauge (OneTouch Delica Plus Lancet) #100 ea 07/22/23 [Rx Last Taken Unknown] walker (Ultra-Light Rollator misc) #1 ea 08/13/23 [Rx Last Taken Unknown] famotidine 40 mg tablet 40 mg PO DAILY ACID REFLUX #30 tabs 08/15/23 [Rx Last Taken Unknown] ferrous sulfate 325 mg (65 mg iron) tablet 325 mg PO TH supplement #90 tabs 08/15/23 [Rx Last Taken Unknown] dulaglutide 4.5 mg/0.5 mL subcutaneous pen injector 4.5 mg subcut FR DIABETES 08/20/23 [History Last Taken Unknown] insulin glargine-yfgn 100 unit/mL (3 mL) subcutaneous pen (Semglee (insulin glargine-yfgn) Pen) 32 unit subcut DAILY DIABETES 08/20/23 [History Last Taken Unknown] simvastatin .ROUTE 08/20/23 [History Last Taken Unknown] Allergy/AdvReac Type Severity Reaction Status Date / Time hydrocodone bitartrate AdvReac Severe Other Verified 08/20/23 13:12 [From Vicodin] hydroxyzine AdvReac Severe Other Verified 08/20/23 13:12 doxycycline AdvReac Intermediate Shortness Verified 08/20/23 13:12 of breath (had CHF also, may not be true allergy Family History Father Diabetes Hypertension Cancer Lung cancer Mother Hypertension CVA (cerebral vascular accident) Sister Diabetes Son Diabetes Surgical History History of cardioversion (2015) History of cataract surgery History of left heart catheterization (02/16/13) History of lithotripsy (11/2020) History of loop recorder (06/26/22) History of radiofrequency ablation procedure for cardiac arrhythmia (02/05/06) history of right knee cap fracture History of right knee surgery Status post laser lithotripsy of ureteral calculus Status post left foot surgery STENT PLACEMENT FOR KIDNEY STONE Social History household members: spouse housing: house Smoking Status: Never smoker how long ago did patient quit smokin second hand exposure: No alcohol intake: never substance use type: does not use caffeine: No what type of physical activity do you participate in: none seatbelt use: always do you feel safe at home: Yes ROS ROS Narrative General: Denies fever/chills, no weight loss HENT: Denies headache, denies stuffy nose, denies sore throat EYES: No acute changes in vision Resp: Occasional dry cough, denies shortness of breath Cardiac: Denies chest pain GI: Denies abdominal pain, denies changes in bowel, denies nausea/vomiting : Denies changes in urination Extremity: Some swelling in bilateral lower extremities bilaterally MSK: Generalized weakness Neuro: Denies any numbness/tingling, more tired than usual Heme: Bruises easy Skin: Healing toe Psychiatric: No complaints voiced Vital Signs Vital Signs Vital Signs: 08/20/23 13:13 08/20/23 13:52 08/20/23 14:12 Temperature 95.9 F L Temperature Source Temporal Pulse Rate 70 70 Respiratory Rate 14 18 Respiratory Effort Short of Breath Respiratory Pattern Normal Blood Pressure 143/49 H 123/57 H Blood Pressure Mean 80 79 Pulse Ox 97 98 Oxygen Delivery Method Room Air Room Air 08/20/23 15:13 08/20/23 16:00 08/20/23 17:05 Temperature Temperature Source Pulse Rate 70 70 70 Respiratory Rate 17 19 H 18 Respiratory Effort Respiratory Pattern Blood Pressure 115/84 H 129/58 H 136/68 H Blood Pressure Mean 94 81 90 Pulse Ox 96 97 98 Oxygen Delivery Method Room Air Room Air Room Air 08/20/23 17:15 08/20/23 18:00 Temperature Temperature Source Pulse Rate 70 60 Respiratory Rate 18 14 Respiratory Effort Respiratory Pattern Blood Pressure 136/68 H 141/74 H Blood Pressure Mean 90 96 Pulse Ox 98 97 Oxygen Delivery Method Room Air Weight Weight: 123.4 kg Body Mass Index (BMI) 36.8 Physical Exam Narrative General: What. But answers questions, speaks very slowly and is somewhat perseverative HEENT: Atraumatic, normocephalic Eyes: Anicteric, normal conjunctiva, extraocular movements grossly intact Neck: Supple Respiratory: Clear to auscultation bilaterally, normal respiratory effort Cardiovascular: Regular rate and rhythm GI: Soft, nontender, nondistended, no rebound, guarding, rigidity Extremities: 1+ lower extremity edema Musculoskeletal: Moving all extremities Neuro: No overt focal neurological deficits Skin: No rashes appreciated Psych: Overall cooperative Results Lab / Micro Data 08/20/23 14:55 08/20/23 14:55 Labs: Laboratory Results - last 24 hr 08/20/23 14:55: WBC 4.4, RBC 3.29 L, Hgb 9.6 L, Hct 31.0 L, MCV 94.2 H, MCH 29.2, MCHC 31.0 L, RDW Std Deviation 57.5 H, RDW Coeff of Flavio 16.7 H, Plt Count 123 L, MPV 9.8, Immature Gran % (Auto) 0.700, Neut % (Auto) 64.5, Lymph % (Auto) 19.3, [place] % (Auto) 12.6 H, Eos % (Auto) 1.8, Baso % (Auto) 1.1 H, Absolute Neuts (auto) 2.8, Absolute Lymphs (auto) 0.84, Nucleated RBC % 0, Sodium 140, Potassium 3.9, Chloride 112 H, Carbon Dioxide 22.0, Anion Gap 6, BUN 42 H, Creatinine 2.16 H, Estim Creat Clear Calc 27.94, Est GFR (MDRD) Af Amer 38 L, Est GFR (MDRD) Non-Af 31 L, BUN/Creatinine Ratio 19.4, Glucose 160 H, Calcium 9.0, Total Bilirubin 1.70 H, AST 83 H, ALT 48, Alkaline Phosphatase 274 H, Troponin I High Sens 16, B-Natriuretic Peptide 348.0 H, Total Protein 6.6, Albumin 2.2 L, Globulin 4.4 H, Albumin/Globulin Ratio 0.5 L 08/20/23 15:07: Ammonia 60.0 H 08/20/23 15:59: Urine Color Cancelled 08/20/23 15:59: Urine Color Yellow, Urine Clarity Cancelled 08/20/23 15:59: Urine Clarity Clear, Urine pH Cancelled 08/20/23 15:59: Urine pH 5.0, Ur Specific [place] Cancelled 08/20/23 15:59: Ur Specific [place] 1.010, U Specif Grav (Refrac) Cancelled, Urine Protein Cancelled 08/20/23 15:59: Urine Protein Negative, Urine Glucose (UA) Cancelled 08/20/23 15:59: Urine Glucose (UA) Normal, Urine Ketones Cancelled 08/20/23 15:59: Urine Ketones Negative, Urine Occult Blood Cancelled 08/20/23 15:59: Urine Occult Blood 10 H, Urine Nitrite Cancelled 08/20/23 15:59: Urine Nitrite Negative, Urine Bilirubin Cancelled 08/20/23 15:59: Urine Bilirubin Negative, Urine Urobilinogen Cancelled 08/20/23 15:59: Urine Urobilinogen Normal, Ur Leukocyte Esterase Cancelled 08/20/23 15:59: Ur Leukocyte Esterase Negative, Urine RBC Cancelled 08/20/23 15:59: Urine RBC 0-5 SEEN, Urine WBC Cancelled 08/20/23 15:59: Urine WBC 0 SEEN, Ur Squamous Epith Cells Cancelled 08/20/23 15:59: Ur Squamous Epith Cells 0 SEEN, Ur Transition Epith Cell Cancelled, Ur Renal Epithelial Cell Cancelled, Calcium Oxalate Crystal Cancelled, Uric Acid Crystals Cancelled, Triple Phos Crystals Cancelled, Other Crystals Cancelled, Amorphous Sediment Cancelled, Urine Bacteria Cancelled 08/20/23 15:59: Urine Bacteria 0 SEEN, Hyaline Casts Cancelled, Fine Granular Casts Cancelled, Coarse Granular Casts Cancelled, Waxy Casts Cancelled, RBC Casts Cancelled, WBC Casts Cancelled, Urine Mucus Cancelled 08/20/23 15:59: Urine Mucus 0 SEEN, Urine Trichomonas Cancelled, Urine Yeast Cancelled Imagaing Radiology Impression Brain CT 08/20/23 13:52 IMPRESSION: No acute intracranial process identified. Chronic involutional and white matter changes. Electronically Signed: Marga Alejandro MD at 15:54 EST , Chest X-Ray 08/20/23 15:25 IMPRESSION: No acute cardiopulmonary process identified. Electronically Signed: Mraga Alejandro MD at 15:56 EST , Assessment & Plan Assessment/Plan (1) Altered mental status: (2) DM type 2 with diabetic peripheral neuropathy: (3) CHF (congestive heart failure): (4) Anemia of chronic renal failure, stage 3 (moderate): QUALIFIERS: Chronic kidney disease stage 3 subtype: unspecified whether 3a or 3b Qualified Code(s): N18.30 - Chronic kidney disease, stage 3 unspecified; D63.1 - Anemia in chronic kidney disease (5) Dizziness: (6) MACHELLE (obstructive sleep apnea): (7) On potassium sparing diuretic therapy: PLAN: Plan #Altered mental status, suspect metabolic encephalopathy secondary to elevated ammonia -Ammonia 60 -Bili slightly up at 1.7 with AST 83, ALT 48, alk phos 274 -Platelets 123 -Will obtain right upper quadrant ultrasound -Hepatitis panel -Will begin lactulose -Check PT/INR -Given history of MACHELLE and patient's weakness and mental status changes will check ABG # Congestive heart failure per history, heart failure preserved ejection fraction chronic -Fluid restricted diet -On diuretics -Last echo 11/11/2022 showed EF of 65 however with no comment on diastolic function however echo 06/2022 with stage II diastolic dysfunction -Patient with dual-chamber pacemaker -Follows with cardiology -Daily weights, I's and O's -Continue Lasix at this time -Does have some swelling in lower extremities, denied any overall changes in weight, BNP 348 which is similar to previous and lower than when he is coming in exacerbation -Monitor respiratory status #Type 2 diabetes mellitus -Glucose checks and sliding scale insulin -Continue long-acting insulin #Hx of A-fib -Presently a paced rhythm -Continue Eliquis, continue Amio #[id number] -Seems to be at baseline #Hx MACHELLE -bipap qhs #Anemia -Stable, suspect anemia of chronic disease # Hypertension -Continue metoprolol, on a slightly smaller dose of hydralazine at 50 mg as dose not yet confirmed -If patient still feeling dizzy or having problems as pneumonia improves can consider orthostats and adjustments # Restless leg syndrome -Continue Mirapex #BPH -On finasteride #DVT ppx: Continue Khushboo Jackson MD Charges/Coding Visit Charges Inpatient E&M: 37862 Init Hosp L2
--- NOTE | 2023-08-20 18:34 | US_ITS ---
STUDY: ABDOMINAL ULTRASOUND - RIGHT UPPER QUADRANT REASON FOR VISIT: Male, 83 years old Worsening liver function TECHNIQUE: Ultrasound evaluation of the right upper quadrant was performed with real-time and static [place]illil[place]-scale imaging. TECHNICAL QUALITY: Limited. Examination limited due to a combination of factors including body habitus and bowel gas. COMPARISON: 02/25/2018. FINDINGS: Liver: The liver measures 20.0 cm. There is increased echogenicity consistent with fatty infiltration. The bile ducts are within normal limits. There is hepatic color flow. The direction of portal flow is hepatopetal. There is no demonstrated mass lesion. Mild heterogeneity through the liver, cannot exclude early cirrhosis. Gallbladder: Normal distended gallbladder. The gallbladder wall measures 7.0 mm. There is a negative sonographic Sifuentes''s sign. There is no pericholecystic fluid. There are multiple echogenic structures within the gallbladder, consistent with multiple gallstones, largest measuring 1.2 cm. Common Bile Duct (C.B.D.): The common bile duct measures 5.0 mm. Pancreas: There is nonvisualization of the pancreas. Right Kidney: Normal size of the right kidney. The right kidney measures 12.0 x 5.1 x 6.4 cm. Normal renal cortex. The right cortex measures 1.5 cm. Within the right kidney there is a round anechoic structure measuring 1.5 x 1.7 x 1.2 cm consistent with a simple cyst. There is mild echogenicity measuring 6 mm which could represent artifact versus stone. There is no right hydronephrosis. Mild ascites. US/Liver IMPRESSION: Mild ascites with diffuse fatty liver. Cannot exclude early cirrhosis or chronic liver disease, correlation with liver function tests recommended. Multiple gallstones. Thickening of gallbladder wall, nonspecific in the context of ascites and liver disease. If there is clinical concern for acute cholecystitis, recommend follow-up with HIDA scan. Simple cyst within the right kidney measuring 1.7 cm with no further follow-up imaging recommended. Artifact versus nonobstructive stone measuring 6 mm. Electronically Signed: Danni Alvarado MD at 19:36 EST ,
--- NOTE | 2023-08-20 21:13 | NURSING ---
Attempted to call ben to verify meds but no answer at this time.
[2023-08-20] MEDS: APIXABAN 2.5 MG TABLET (WCH) PO (21:40)
[2023-08-20] MEDS: hydrALAZINE 50 MG Tablet PO (21:40)
[2023-08-20] MEDS: Pramipexole Di-HCl 1 MG Tablet 2 MG PO (21:41)
[2023-08-20] MEDS: Insulin Lispro 100 UNIT/ML INSULN.PEN SC (21:44)
[2023-08-20 21:47] LABS: Bedside Glucose 204 mg/dL (74-106)
--- OUTSIDE RECORDS SUMMARY | 2023-08-20 22:11 | XMS RPT_ITS | CCD ---
Author Name Unknown Address [address] [place] [address] Organization [facility] Results Test Name Value Interpretation [...] BE BASED ON THE PRIMARY CLINICAL RECORDS. [facility] provides no warranty or guarantee of the accuracy or completeness of information in this document.
--- NOTE | 2023-08-20 22:36 | CPS ---
Patient wears bipap at home but says he does not want to wear our machine. MACHELLE education provided, patient says he will call if he changes his mind. No machine placed in room at this time. Nursing notified.
[2023-08-21] VITALS (10 sets, daily range): BP systolic 139–143; BP diastolic 60–63; PULSE 69–70; RESP 18; TEMP 36.6–36.9; O2SAT 97–99; BMI 35.4
[2023-08-21] MEDS: Insulin Lispro 100 UNIT/ML INSULN.PEN SC ×3 (04:24→17:21)
[2023-08-21 04:46] LABS: Bedside Glucose 210 mg/dL (74-106)
[2023-08-21] MEDS: Menthol/Lanolin/Calamine/Znox 113 GM Tube 1 APPLIC TOPICAL ×3 (06:18→21:57)
[2023-08-21 07:27] LABS: Absolute Lymphocyte Count 0.77 X10^3/uL (0.83-4.51); Absolute Neutrophil Count 2.1 X10^3/uL (2.0-7.7); Basophil# 0.02 X10^3/uL; Basophil% 0.6 % (0-1); Eosinophil# 0.07 X10^3/uL; Hematocrit 28.4 % (40-54); Hemoglobin 8.8 g/dL (13.0-16.5); Lymphocyte # 0.77 X10^3/ul (0.83-4.51); Lymphocyte % 21.8 % (19-41); Mean Corpuscular Hgb 28.9 pg (27.0-32.0); Mean Corpuscular Volume 93.1 fL (80-94); Mean Platelet Vol. 9.8 fl (6.2-12.0); Monocyte# 0.54 X10^3/uL; Monocyte% 15.3 % (0-10); NRBC Flagged by Analyzer 0 % (0-5); Neutrophil # 2.11 X10^3/uL (2.7-7.7); Neutrophil % 59.7 % (47-70); Platelet Count 121 K/mm3 (150-450); RBC Distribution Width CV 16.5 % (11.6-14.6); RBC Distribution Width SD 56.4 fl (35.1-43.9); Red Blood Count 3.05 M/mm3 (4.6-6.2); White Blood Count 3.5 K/mm3 (4.4-11.0)
[2023-08-21 08:05] LABS: ALB/GLOB Ratio 0.5 RATIO (0.9-2.4); AST(SGOT) 65 U/L (15-37); Alanine Aminotransfer ALT/SGPT 40 U/L (16-61); Alkaline Phosphatase 238 U/L (45-117); Anion Gap 9 (5-15); BUN 41 mg/dL (7-18); BUN/Creat Ratio 21.8 RATIO (10-20); Calcium,Total 8.9 mg/dL (8.5-10.1); Chloride 113 mmol/L (98-107); Creatinine, Serum 1.88 mg/dL (0.70-1.30); EST Glomerular Filtration Rate 37 mL/min (>60); Est Glom Filt Rate - Afr Amer 44 mL/min (>60); Globulin 3.9 g/dL (2.2-4.2); Glucose 171 mg/dL (74-106); Potassium 3.7 mmol/L (3.5-5.1); Protein, Total 5.9 g/dL (6.4-8.2); Sodium Level 143 mmol/L (136-145)
[2023-08-21 09:09] LABS: International Normalized Ratio 1.5; Prothrombin Time (Protime)PT. 18.2 SECONDS (11.7-14.9)
--- NOTE | 2023-08-21 09:36 | PN.HOSP_ITS ---
Reason for Visit Reason for Visit: Diagnoses Anemia in chronic kidney disease (08/20/23) Type 2 diabetes mellitus with diabetic polyneuropathy (08/20/23) Obstructive sleep apnea (adult) (pediatric) (08/20/23) Heart failure, unspecified (08/20/23) Chronic kidney disease, stage 3 unspecified (08/20/23) Altered mental status, unspecified (08/20/23) Dizziness and giddiness (08/20/23) Other group home (current) drug therapy (08/20/23) Objective Data Objective Data Vital Signs: Vital Signs Temp Pulse Resp BP Pulse Ox O2 Del Method 98.5 F 70 18 143/63 H 99 Room Air 08/21/23 08:55 08/21/23 08:55 08/21/23 08:56 08/21/23 08:55 08/21/23 08:55 08/21/23 08:56 Oxygen Delivery Method Room Air Weight: 118.643 kg Body Mass Index (BMI) 35.4 Intake & Output: Intake and Output for Last 24 Hours 08/19/23 08/20/23 08/21/23 23:59 23:59 23:59 Intake Total 500 / 500 Balance 500 / 500 Lab / Micro Data 08/21/23 06:52 08/21/23 06:52 Labs: Laboratory Results - last 24 hr 08/20/23 14:55: WBC 4.4, RBC 3.29 L, Hgb 9.6 L, Hct 31.0 L, MCV 94.2 H, MCH 29.2, MCHC 31.0 L, RDW Std Deviation 57.5 H, RDW Coeff of Flavio 16.7 H, Plt Count 123 L, MPV 9.8, Immature Gran % (Auto) 0.700, Neut % (Auto) 64.5, Lymph % (Auto) 19.3, [place] % (Auto) 12.6 H, Eos % (Auto) 1.8, Baso % (Auto) 1.1 H, Absolute Neuts (auto) 2.8, Absolute Lymphs (auto) 0.84, Nucleated RBC % 0, Sodium 140, Potassium 3.9, Chloride 112 H, Carbon Dioxide 22.0, Anion Gap 6, BUN 42 H, Creatinine 2.16 H, Estim Creat Clear Calc 27.94, Est GFR (MDRD) Af Amer 38 L, Est GFR (MDRD) Non-Af 31 L, BUN/Creatinine Ratio 19.4, Glucose 160 H, Calcium 9.0, Total Bilirubin 1.70 H, AST 83 H, ALT 48, Alkaline Phosphatase 274 H, Troponin I High Sens 16, B-Natriuretic Peptide 348.0 H, Total Protein 6.6, Albumin 2.2 L, Globulin 4.4 H, Albumin/Globulin Ratio 0.5 L 08/20/23 15:07: Ammonia 60.0 H 08/20/23 15:59: Urine Color Cancelled 08/20/23 15:59: Urine Color Yellow, Urine Clarity Cancelled 08/20/23 15:59: Urine Clarity Clear, Urine pH Cancelled 08/20/23 15:59: Urine pH 5.0, Ur Specific [place] Cancelled 08/20/23 15:59: Ur Specific [place] 1.010, U Specif Grav (Refrac) Cancelled, Urine Protein Cancelled 08/20/23 15:59: Urine Protein Negative, Urine Glucose (UA) Cancelled 08/20/23 15:59: Urine Glucose (UA) Normal, Urine Ketones Cancelled 08/20/23 15:59: Urine Ketones Negative, Urine Occult Blood Cancelled 08/20/23 15:59: Urine Occult Blood 10 H, Urine Nitrite Cancelled 08/20/23 15:59: Urine Nitrite Negative, Urine Bilirubin Cancelled 08/20/23 15:59: Urine Bilirubin Negative, Urine Urobilinogen Cancelled 08/20/23 15:59: Urine Urobilinogen Normal, Ur Leukocyte Esterase Cancelled 08/20/23 15:59: Ur Leukocyte Esterase Negative, Urine RBC Cancelled 08/20/23 15:59: Urine RBC 0-5 SEEN, Urine WBC Cancelled 08/20/23 15:59: Urine WBC 0 SEEN, Ur Squamous Epith Cells Cancelled 08/20/23 15:59: Ur Squamous Epith Cells 0 SEEN, Ur Transition Epith Cell Cancelled, Ur Renal Epithelial Cell Cancelled, Calcium Oxalate Crystal Cancelled, Uric Acid Crystals Cancelled, Triple Phos Crystals Cancelled, Other Crystals Cancelled, Amorphous Sediment Cancelled, Urine Bacteria Cancelled 08/20/23 15:59: Urine Bacteria 0 SEEN, Hyaline Casts Cancelled, Fine Granular Casts Cancelled, Coarse Granular Casts Cancelled, Waxy Casts Cancelled, RBC Casts Cancelled, WBC Casts Cancelled, Urine Mucus Cancelled 08/20/23 15:59: Urine Mucus 0 SEEN, Urine Trichomonas Cancelled, Urine Yeast Cancelled 08/20/23 21:29: POC Glucose 204 H 08/21/23 04:22: POC Glucose 210 H 08/21/23 06:52: WBC 3.5 L, RBC 3.05 L, Hgb 8.8 L, Hct 28.4 L, MCV 93.1, MCH 28.9, MCHC 31.0 L, RDW Std Deviation 56.4 H, RDW Coeff of Flavio 16.5 H, Plt Count 121 L, MPV 9.8, Immature Gran % (Auto) 0.600, Neut % (Auto) 59.7, Lymph % (Auto) 21.8, [place] % (Auto) 15.3 H, Eos % (Auto) 2.0, Baso % (Auto) 0.6, Absolute Neuts (auto) 2.1, Absolute Lymphs (auto) 0.77 L, Nucleated RBC % 0, PT 18.2 H, INR 1.5, Sodium 143, Potassium 3.7, Chloride 113 H, Carbon Dioxide 21.0, Anion Gap 9, BUN 41 H, Creatinine 1.88 H, Estim Creat Clear Calc 32.10, Est GFR (MDRD) Af Amer 44 L, Est GFR (MDRD) Non-Af 37 L, BUN/Creatinine Ratio 21.8 H, Glucose 171 H, Calcium 8.9, Total Bilirubin 1.70 H, AST 65 H, ALT 40, Alkaline Phosphatase 238 H, Total Protein 5.9 L, Albumin 2.0 L, Globulin 3.9, Albumin/Globulin Ratio 0.5 L Radiography Diagnostic Testing: Radiology Impression Brain CT 08/20/23 13:52 IMPRESSION: No acute intracranial process identified. Chronic involutional and white matter changes. Electronically Signed: Marga Alejandro MD at 15:54 EST Reading Location ID and State: [facility] / [place] Tel , Service support , Chest X-Ray 08/20/23 15:25 IMPRESSION: No acute cardiopulmonary process identified. Electronically Signed: Marga Alejandro MD at 15:56 EST , Liver Ultrasound 08/20/23 18:34 IMPRESSION: Mild ascites with diffuse fatty liver. Cannot exclude early cirrhosis or chronic liver disease, correlation with liver function tests recommended. Multiple gallstones. Thickening of gallbladder wall, nonspecific in the context of ascites and liver disease. If there is clinical concern for acute cholecystitis, recommend follow-up with HIDA scan. Simple cyst within the right kidney measuring 1.7 cm with no further follow-up imaging recommended. Artifact versus nonobstructive stone measuring 6 mm. Electronically Signed: Danni Alvarado MD at 19:36 EST , Physical Exam Narrative General: What. But answers questions, speaks very slowly and is somewhat perseverative HEENT: Atraumatic, normocephalic Eyes: Anicteric, normal conjunctiva, extraocular movements grossly intact Neck: Supple Respiratory: Clear to auscultation bilaterally, normal respiratory effort Cardiovascular: Regular rate and rhythm GI: Soft, nontender, nondistended, no rebound, guarding, rigidity Extremities: 1+ lower extremity edema Musculoskeletal: Moving all extremities Neuro: No overt focal neurological deficits Skin: No rashes appreciated Psych: Overall cooperative Assessment & Plan Assessment/Plan (1) Altered mental status: (2) DM type 2 with diabetic peripheral neuropathy: (3) CHF (congestive heart failure): (4) Anemia of chronic renal failure, stage 3 (moderate): QUALIFIERS: Chronic kidney disease stage 3 subtype: unspecified whether 3a or 3b Qualified Code(s): N18.30 - Chronic kidney disease, stage 3 unspecified; D63.1 - Anemia in chronic kidney disease (5) Dizziness: (6) MACHELLE (obstructive sleep apnea): (7) On potassium sparing diuretic therapy: PLAN: Plan #Altered mental status, suspect metabolic encephalopathy secondary to elevated ammonia -Ammonia 60 -Bili slightly up at 1.7 with AST 83, ALT 48, alk phos 274 -Platelets 123 -Will obtain right upper quadrant ultrasound -Hepatitis panel -Will begin lactulose -Check PT/INR -Given history of MACHELLE and patient's weakness and mental status changes will check ABG # Congestive heart failure per history, heart failure preserved ejection fr action chronic -Fluid restricted diet -On diuretics -Last echo 11/11/2022 showed EF of 65 however with no comment on diastolic function however echo 06/2022 with stage II diastolic dysfunction -Patient with dual-chamber pacemaker -Follows with cardiology -Daily weights, I's and O's -Continue Lasix at this time -Does have some swelling in lower extremities, denied any overall changes in weight, BNP 348 which is similar to previous and lower than when he is coming in exacerbation -Monitor respiratory status #Type 2 diabetes mellitus -Glucose checks and sliding scale insulin -Continue long-acting insulin #Hx of A-fib -Presently a paced rhythm -Continue Eliqufrances, continue Amio #CKDIIIb -Seems to be at baseline #Hx MACHELLE -bipap qhs #Anemia -Stable, suspect anemia of chronic disease # Hypertension -Continue metoprolol, on a slightly smaller dose of hydralazine at 50 mg as dose not yet confirmed -If patient still feeling dizzy or having problems as pneumonia improves can consider orthostats and adjustments # Restless leg syndrome -Continue Mirapex #BPH -On finasteride #DVT ppx: Continue Khushboo Jackson MD
--- NOTE | 2023-08-21 09:36 | PCM.PN.HOSP ---
Reason for Visit Reason for Visit: Diagnoses Anemia in chronic kidney disease (08/20/23) Type 2 diabetes mellitus with diabetic polyneuropathy (08/20/23) Obstructive sleep apnea (adult) (pediatric) (08/20/23) Heart failure, unspecified (08/20/23) Chronic kidney disease, stage 3 unspecified (08/20/23) Altered mental status, unspecified (08/20/23) Dizziness and giddiness (08/20/23) Other half-way (current) drug therapy (08/20/23) Subjective Subjective Patient is an 83-year-old gentleman admitted with altered mental status. Found to have elevated ammonia level consistent with hepatic encephalopathy. Patient started on lactulose admitted to regular nursing floor for further management Objective Data Objective Data Vital Signs: Vital Signs Temp Pulse Resp BP Pulse Ox O2 Del Method 98.5 F 70 18 143/63 H 99 Room Air 08/21/23 08:55 08/21/23 08:55 08/21/23 08:56 08/21/23 08:55 08/21/23 08:55 08/21/23 08:56 Oxygen Delivery Method Room Air Weight: 118.643 kg Body Mass Index (BMI) 35.4 Intake & Output: Intake and Output for Last 24 Hours 08/19/23 08/20/23 08/21/23 23:59 23:59 23:59 Intake Total 500 / 500 Balance 500 / 500 Lab / Micro Data 08/21/23 06:52 08/21/23 06:52 Labs: Laboratory Results - last 24 hr 08/20/23 14:55: WBC 4.4, RBC 3.29 L, Hgb 9.6 L, Hct 31.0 L, MCV 94.2 H, MCH 29.2, MCHC 31.0 L, RDW Std Deviation 57.5 H, RDW Coeff of Flavio 16.7 H, Plt Count 123 L, MPV 9.8, Immature Gran % (Auto) 0.700, Neut % (Auto) 64.5, Lymph % (Auto) 19.3, [place] % (Auto) 12.6 H, Eos % (Auto) 1.8, Baso % (Auto) 1.1 H, Absolute Neuts (auto) 2.8, Absolute Lymphs (auto) 0.84, Nucleated RBC % 0, Sodium 140, Potassium 3.9, Chloride 112 H, Carbon Dioxide 22.0, Anion Gap 6, BUN 42 H, Creatinine 2.16 H, Estim Creat Clear Calc 27.94, Est GFR (MDRD) Af Amer 38 L, Est GFR (MDRD) Non-Af 31 L, BUN/Creatinine Ratio 19.4, Glucose 160 H, Calcium 9.0, Total Bilirubin 1.70 H, AST 83 H, ALT 48, Alkaline Phosphatase 274 H, Troponin I High Sens 16, B-Natriuretic Peptide 348.0 H, Total Protein 6.6, Albumin 2.2 L, Globulin 4.4 H, Albumin/Globulin Ratio 0.5 L 08/20/23 15:07: Ammonia 60.0 H 08/20/23 15:59: Urine Color Cancelled 08/20/23 15:59: Urine Color Yellow, Urine Clarity Cancelled 08/20/23 15:59: Urine Clarity Clear, Urine pH Cancelled 08/20/23 15:59: Urine pH 5.0, Ur Specific [place] Cancelled 08/20/23 15:59: Ur Specific [place] 1.010, U Specif Grav (Refrac) Cancelled, Urine Protein Cancelled 08/20/23 15:59: Urine Protein Negative, Urine Glucose (UA) Cancelled 08/20/23 15:59: Urine Glucose (UA) Normal, Urine Ketones Cancelled 08/20/23 15:59: Urine Ketones Negative, Urine Occult Blood Cancelled 08/20/23 15:59: Urine Occult Blood 10 H, Urine Nitrite Cancelled 08/20/23 15:59: Urine Nitrite Negative, Urine Bilirubin Cancelled 08/20/23 15:59: Urine Bilirubin Negative, Urine Urobilinogen Cancelled 08/20/23 15:59: Urine Urobilinogen Normal, Ur Leukocyte Esterase Cancelled 08/20/23 15:59: Ur Leukocyte Esterase Negative, Urine RBC Cancelled 08/20/23 15:59: Urine RBC 0-5 SEEN, Urine WBC Cancelled 08/20/23 15:59: Urine WBC 0 SEEN, Ur Squamous Epith Cells Cancelled 08/20/23 15:59: Ur Squamous Epith Cells 0 SEEN, Ur Transition Epith Cell Cancelled, Ur Renal Epithelial Cell Cancelled, Calcium Oxalate Crystal Cancelled, Uric Acid Crystals Cancelled, Triple Phos Crystals Cancelled, Other Crystals Cancelled, Amorphous Sediment Cancelled, Urine Bacteria Cancelled 08/20/23 15:59: Urine Bacteria 0 SEEN, Hyaline Casts Cancelled, Fine Granular Casts Cancelled, Coarse Granular Casts Cancelled, Waxy Casts Cancelled, RBC Casts Cancelled, WBC Casts Cancelled, Urine Mucus Cancelled 08/20/23 15:59: Urine Mucus 0 SEEN, Urine Trichomonas Cancelled, Urine Yeast Cancelled 08/20/23 21:29: POC Glucose 204 H 08/21/23 04:22: POC Glucose 210 H 08/21/23 06:52: WBC 3.5 L, RBC 3.05 L, Hgb 8.8 L, Hct 28.4 L, MCV 93.1, MCH 28.9, MCHC 31.0 L, RDW Std Deviation 56.4 H, RDW Coeff of Flavio 16.5 H, Plt Count 121 L, MPV 9.8, Immature Gran % (Auto) 0.600, Neut % (Auto) 59.7, Lymph % (Auto) 21.8, [place] % (Auto) 15.3 H, Eos % (Auto) 2.0, Baso % (Auto) 0.6, Absolute Neuts (auto) 2.1, Absolute Lymphs (auto) 0.77 L, Nucleated RBC % 0, PT 18.2 H, INR 1.5, Sodium 143, Potassium 3.7, Chloride 113 H, Carbon Dioxide 21.0, Anion Gap 9, BUN 41 H, Creatinine 1.88 H, Estim Creat Clear Calc 32.10, Est GFR (MDRD) Af Amer 44 L, Est GFR (MDRD) Non-Af 37 L, BUN/Creatinine Ratio 21.8 H, Glucose 171 H, Calcium 8.9, Total Bilirubin 1.70 H, AST 65 H, ALT 40, Alkaline Phosphatase 238 H, Total Protein 5.9 L, Albumin 2.0 L, Globulin 3.9, Albumin/Globulin Ratio 0.5 L Radiography Diagnostic Testing: Radiology Impression Brain CT 08/20/23 13:52 IMPRESSION: No acute intracranial process identified. Chronic involutional and white matter changes. Electronically Signed: Marga Alejandro MD at 15:54 EST Reading Location ID and State: [facility] / [place] Tel , Service support , Chest X-Ray 08/20/23 15:25 IMPRESSION: No acute cardiopulmonary process identified. Electronically Signed: Marga Alejandro MD at 15:56 EST , Liver Ultrasound 08/20/23 18:34 IMPRESSION: Mild ascites with diffuse fatty liver. Cannot exclude early cirrhosis or chronic liver disease, correlation with liver function tests recommended. Multiple gallstones. Thickening of gallbladder wall, nonspecific in the context of ascites and liver disease. If there is clinical concern for acute cholecystitis, recommend follow-up with HIDA scan. Simple cyst within the right kidney measuring 1.7 cm with no further follow-up imaging recommended. Artifact versus nonobstructive stone measuring 6 mm. Electronically Signed: Danni Alvarado MD at 19:36 EST , Physical Exam Narrative GENERAL: cooperative HEENT: Atraumatic; normocephalic EYES; Anicteric, Normal Conjunctiva NECK; supple, normal thyroid, RESPIRATORY: Diminished to auscultation CARDIOVASCULAR: Regular S1 S2, GI: soft, normoactive bowel sounds, : No Renal angle tenderness; EXTREMITIES: edema, no clubbing, MUSCULOSKELETAL: no muscle wasting NEURO: Awake; no lateralizing signs. SKIN: No Rash PSYCH; Flat affect Assessment & Plan Assessment/Plan (1) Altered mental status: PLAN: Plan Patient is an 83-year-old gentleman admitted with altered mental status. Found to have elevated ammonia level consistent with hepatic encephalopathy. Patient started on lactulose admitted to regular nursing floor for further management 1. Acute hypoxic encephalopathy ? Secondary to chronic liver disease. Imaging studies obtained on admission demonstrated diffuse fatty liver cirrhosis could not be ruled out. Patient presented with elevated ammonia, AST of 83, ALT of 48 and alk phos of 374 and platelet of 123. Patient started on lactulose after right upper quadrant ultrasound has been ordered results are as above. Consult also placed to GI 2. Chronic congestive heart failure with preserved ejection fraction ? Last echo from 11/11/2022 demonstrated EF of 65%. Patient remains euvolemic 3. Diabetes mellitus type II -patient's oral hypoglycemics held. Placed on long acting insulin, Accu-Cheks a.c. and at bedtime and covered with sliding scale insulin 4. 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 Complicating care weight loss advised 5. Obstructive sleep apnea ? Patient is on BiPAP at night 6. Conduction system disorder ? Status post pacemaker placement 7. Paroxysmal A-fib ? EKG on admission demonstrated paced rhythm. Patient is on systemic anticoagulation with apixaban continue 8. Anemia - Secondary to chronic disorder monitoring H&H and transfuse if patient becomes symptomatic or hemoglobin falls below 7 9. Hypertension - Blood pressure controlled, home medications continued with dose adjustment as needed 10. Restless leg syndrome ? Patient is on Mirapex continue 11. Chronic kidney disease stage IIIb ? Kidney function at base 12. BPH with lower urinary obstruction - Patient treated with finasteride 13. DVT prophylaxis ? On apixaban Time spent in the patient's overall evaluation,decision-making process, review of diagnostic data, adjustment of management, discussion with other providers, nursing nursing and ancillary staff involved in patient's care documentation, 50 Minutes Charges/Coding Visit Charges Inpatient E&M: 35274 Subs Hosp L3
[2023-08-21] MEDS: Insulin Glargine-YFGN 100 UNIT/ML Pen 25 UNIT SC (10:52)
[2023-08-21] MEDS: Furosemide 40 MG Tablet 60 MG PO (10:53)
[2023-08-21] MEDS: hydrALAZINE 50 MG Tablet PO ×2 (10:53→21:57)
[2023-08-21] MEDS: Lactulose 20 GM/30 ML UDC PO ×2 (10:54→21:57)
[2023-08-21] MEDS: Metoprolol(XL)Succ 25 MG Tablet 12.5 MG PO (10:54)
[2023-08-21] MEDS: APIXABAN 2.5 MG TABLET (WCH) PO ×2 (10:54→21:57)
[2023-08-21] MEDS: Amiodarone 200 MG Tablet PO (10:55)
[2023-08-21] MEDS: Sertraline 50 MG Tablet 25 MG PO (10:55)
[2023-08-21] MEDS: Finasteride 5 MG Tablet PO (10:56)
[2023-08-21 12:01] LABS: Bedside Glucose 283 mg/dL (74-106)
--- NOTE | 2023-08-21 15:56 | CASEMGMT ---
TIMOTHY LOPEZ Assessment Face to Face with patient for initial transition planning/care coordination assessment. TIMOTHY LOPEZ introduced self and role at [facility], pt voices understanding. Pt is A&Ox3 and is resting comfortably in bed and is calm. Pt at bedside. Care providers, pharmacy, and demographics verified. Admitting dx: Hepatic Encephalopathy LACE Strata: 2 PCP: Henrietta Specialists: Sue, Friend Preferred Pharmacy: Pt uses [facility] ([place]). Pt requesting scripts to be sent through [facility] during stat here. Insurance: [employer] LEAL Prescription Benefit: Yes LNOK: - Coby Ji. Daughter - Na Yepez Living Arrangements: Pt states he lives in a one story condo with his . Pt reports the condo has a basement with hand rails but does not go down there. Pt states there are 2 steps to enter the home with hand rails and has no issues entering the home. ADLs/IADLs: Pt states he is independent with ADLs. Pt states he recently bought a new rollator for ambulation. Pt states that he and his take turns doing the laundry and dishes and stuff. Transportation:Pt denies driving. Pt reports his is able to drive him. DME: Pt states he has and utilizes a rollator, lift chair, raised toilet seat with hand rails, and a walk in shower with a grab bar. Denies home O2 history. HHC/SNF: Pt states I was sent to [facility] about a year ago to help get me stronger. Then when I left that facility, I was seen by physical therapy and occupational therapy at home but I am not sure for how long or who the company was. Pt?s goal: Pt goal is to get strong enough to be able to go home with his . Plan: TBD. Will have to follow up with therapy regarding DC needs. Dada Mary RN, CM
[2023-08-21 16:18] LABS: Bedside Glucose 364 mg/dL (74-106)
--- NOTE | 2023-08-21 18:47 | EX.PCM.CON.G ---
HPI Consult Data Date of Consult: 08/21/23 HPI Narrative Reason for Consultation: Hepatic encephalopathy HPI Narrative: MARY SAN, is a 83 M who presents with worsening confusion. He has a past medical history of nonalcoholic steatohepatitis and does take lactulose on a daily basis. Sometimes he does stop it because it tends to increase his blood sugar. . In the ED patient with Bili slightly up at 1.7 with AST 83, ALT 48, alk phos 274 and patient was confused, ammonia was found to be 60 and he was given lactulose with some improvement in mental status however still somewhat tired, confused, feeling dizzy so hospitalist contacted for admission for hepatic encephalopathy. endorses that today she took him at his podiatry appointment and while his toe is healing well and he can follow-up again in 2 weeks he was confused and did not even recognize his physician, Dr. Arredondo, prompting patient to come to the ED . Patient denies abdominal pain, diarrhea, constipation, nausea or vomiting. Denies chest pain or shortness of breath. Reports his main complaints are dizzy and lightheadedness primarily when standing up and walking as well as some waxing and waning weakness and intermittent confusion for a while . Patient also more tired today per . After receiving lactulose in the ED patient is mentating somewhat better and waking up better but still is not at baseline. His hgb was 10.6 and it trended down to 8.8. He has been taking his medicines as per his . He does take Eliquis and amiodarone secondary to A-fib. His labs show cholestatic hepatitis consistent with cirrhosis. [facility] Medical History (HFpEF) heart failure with preserved ejection fraction (12/12/20) Acute dyspnea Acute on chronic diastolic HF (heart failure) Acute respiratory failure with hypoxia Anemia Anemia of chronic renal failure, stage 3 (moderate) Anxiety and depression Atherosclerotic heart disease of [place] coronary artery without angina pectoris Atrial flutter Atrial flutter Atypical chest pain Back pain BMI 34.0-34.9,adult BPH (benign prostatic hyperplasia) BPPV (benign paroxysmal positional vertigo) Bradycardia Cardiac dysrhythmia Cardiology follow-up encounter CHF (congestive heart failure) CHF (congestive heart failure) CHF (congestive heart failure) Chronic anticoagulation De Quervain's tenosynovitis Debility Depression Dermatitis Diabetes mellitus Diabetic kidney disease Dizziness DM type 2 with diabetic peripheral neuropathy DVT (deep venous thrombosis) Dyslipidemia Dysphagia Essential (primary) hypertension Fall Flu vaccine need Fracture of great toe Gastric reflux Generalized weakness Gout Gout flare Health care maintenance History of echocardiogram History of edema History of GI bleed History of peptic ulcer History of renal calculi History of ulceration HLD (hyperlipidemia) Hyperkalemia Injury of head and neck Iron deficiency anemia Iron deficiency anemia due to chronic blood loss Kidney hematoma (12/08/20) Left knee pain Left leg DVT Loss of equilibrium Low iron Malaise Near syncope Orthostatic hypotension MACHELLE (obstructive sleep apnea) Pain of left lower extremity Paroxysmal atrial fibrillation Paroxysmal atrial flutter Pneumonia Polypharmacy 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 Presence of cardiac pacemaker Prostate disease Psoriasis Recurrent syncope (06/19/22) Renal calculi RLS (restless legs syndrome) Sex disorder Sick sinus syndrome Suicidal ideation SVT (supraventricular tachycardia) TIA (transient ischemic attack) Toe pain, left Type 2 diabetes mellitus with diabetic polyneuropathy Urolithiasis Venous insufficiency of both lower extremities Vertigo Walker as ambulation aid Weakness Wears glasses Home Medications finasteride 5 mg tablet 5 mg PO DAILY PROSTATE #90 tabs 11/03/18 [Rx Last Taken 06/23/23] ergocalciferol (vitamin D2) 1,250 mcg (50,000 unit) capsule 50,000 unit PO QMONTH SUPPLEMENT #14 caps 11/29/22 [Rx Last Taken 06/18/23] nitroglycerin 0.4 mg sublingual tablet 0.4 mg sublingual Q5M PRN Cardiac/Chest Pain 30 days #30 tabs 12/03/22 [Rx Last Taken Unknown] metoprolol succinate 25 mg tablet,extended release 24 hr 12.5 mg PO DAILY BLOOD PRESSURE 12/07/22 [History Last Taken 06/23/23] furosemide 40 mg tablet (Lasix) 60 mg (1.5 x 40 mg) PO DAILY EDEMA #45 tabs 12/24/22 [Rx Last Taken 06/23/23] apixaban 2.5 mg tablet (Eliquis) 2.5 mg PO BID BLOOD THINNER #180 tabs 12/25/22 [Rx Last Taken 06/23/23] atorvastatin 10 mg tablet 10 mg PO QHS CHOLESTEROL #90 tabs 12/25/22 [Rx Last Taken 06/22/23] pen needle, diabetic 31 gauge x 3/16 (BD Ultra-Fine Mini Pen Needle) #100 ea 12/30/22 [Rx Last Taken Unknown] amiodarone 200 mg tablet 200 mg PO DAILY HEART #90 tabs 01/02/23 [Rx Last Taken Unknown] hydralazine 50 mg tablet 75 mg PO BID BLOOD PRESSURE 02/04/23 [History Last Taken Unknown] pramipexole 1 mg tablet (Mirapex) 2 mg (2 x 1 mg) PO QHS RESTLESS LEG SYNDROME #180 tabs 02/04/23 [Rx Last Taken 06/22/23] sertraline 25 mg tablet 25 mg PO DAILY DEPRESSION 02/04/23 [History Last Taken Unknown] fluticasone propionate 50 mcg/actuation nasal spray,suspension 2 spray intranasal DAILY NASAL CONGESTION #16 grams 06/24/23 [Rx Last Taken Unknown] progesterone micronized 100 mg capsule 100 mg PO QAM HORMONE REPLACEMENT #90 caps 07/03/23 [Rx Last Taken Unknown] lancets 30 gauge ([employer] Delica Plus Lancet) #100 ea 07/22/23 [Rx Last Taken Unknown] walker (Ultra-Light Rollator misc) #1 ea 08/13/23 [Rx Last Taken Unknown] famotidine 40 mg tablet 40 mg PO DAILY ACID REFLUX #30 tabs 08/15/23 [Rx Last Taken Unknown] ferrous sulfate 325 mg (65 mg iron) tablet 325 mg PO TH supplement #90 tabs 08/15/23 [Rx Last Taken Unknown] dulaglutide 4.5 mg/0.5 mL subcutaneous pen injector 4.5 mg subcut FR DIABETES 08/20/23 [History Last Taken Unknown] insulin glargine-yfgn 100 unit/mL (3 mL) subcutaneous pen (Semglee (insulin glargine-yfgn) Pen) 32 unit subcut DAILY DIABETES 08/20/23 [History Last Taken Unknown] simvastatin .Route chanfe to lipitor 08/20/23 [History Last Taken Unknown] Allergy/AdvReac Type Severity Reaction Status Date / Time hydrocodone bitartrate AdvReac Severe Other Verified 08/20/23 13:12 [From Vicodin] hydroxyzine AdvReac Severe Other Verified 08/20/23 13:12 doxycycline AdvReac Intermediate Shortness Verified 08/20/23 13:12 of breath (had CHF also, may not be true allergy Family History Father Diabetes Hypertension Cancer Lung cancer Mother Hypertension CVA (cerebral vascular accident) Sister Diabetes Son Diabetes Surgical History History of cardioversion (2015) History of cataract surgery History of left heart catheterization (02/16/13) History of lithotripsy (11/2020) History of loop recorder (06/26/22) History of radiofrequency ablation procedure for cardiac arrhythmia (02/05/06) history of right knee cap fracture History of right knee surgery Status post laser lithotripsy of ureteral calculus Status post left foot surgery STENT PLACEMENT FOR KIDNEY STONE Social History household members: spouse housing: house Smoking Status: Never smoker how long ago did patient quit smokin second hand exposure: No alcohol intake: never substance use type: does not use caffeine: No what type of physical activity do you participate in: none seatbelt use: always do you feel safe at home: Yes ROS ROS Narrative General: Denies fever/chills, no weight loss HENT: Denies headache, denies stuffy nose, denies sore throat EYES: No acute changes in vision Resp: Occasional dry cough, denies shortness of breath Cardiac: Denies chest pain GI: Denies abdominal pain, denies changes in bowel, denies nausea/vomiting : Denies changes in urination Extremity: Some swelling in bilateral lower extremities bilaterally MSK: Generalized weakness Neuro: Denies any numbness/tingling, more tired than usual Heme: Bruises easy Skin: Healing toe Psychiatric: No complaints voiced Lab / Micro Data 08/21/23 06:52 08/21/23 06:52 Labs: Laboratory Results - last 24 hr 08/20/23 21:29: POC Glucose 204 H 08/21/23 04:22: POC Glucose 210 H 08/21/23 06:52: WBC 3.5 L, RBC 3.05 L, Hgb 8.8 L, Hct 28.4 L, MCV 93.1, MCH 28.9, MCHC 31.0 L, RDW Std Deviation 56.4 H, RDW Coeff of Flavio 16.5 H, Plt Count 121 L, MPV 9.8, Immature Gran % (Auto) 0.600, Neut % (Auto) 59.7, Lymph % (Auto) 21.8, [place] % (Auto) 15.3 H, Eos % (Auto) 2.0, Baso % (Auto) 0.6, Absolute Neuts (auto) 2.1, Absolute Lymphs (auto) 0.77 L, Nucleated RBC % 0, PT 18.2 H, INR 1.5, Sodium 143, Potassium 3.7, Chloride 113 H, Carbon Dioxide 21.0, Anion Gap 9, BUN 41 H, Creatinine 1.88 H, Estim Creat Clear Calc 32.10, Est GFR (MDRD) Af Amer 44 L, Est GFR (MDRD) Non-Af 37 L, BUN/Creatinine Ratio 21.8 H, Glucose 171 H, Calcium 8.9, Total Bilirubin 1.70 H, AST 65 H, ALT 40, Alkaline Phosphatase 238 H, Total Protein 5.9 L, Albumin 2.0 L, Globulin 3.9, Albumin/Globulin Ratio 0.5 L 08/21/23 11:34: POC Glucose 283 H 08/21/23 15:47: POC Glucose 364 H Imagaing Radiology Impression Liver Ultrasound 08/20/23 18:34 IMPRESSION: Mild ascites with diffuse fatty liver. Cannot exclude early cirrhosis or chronic liver disease, correlation with liver function tests recommended. Multiple gallstones. Thickening of gallbladder wall, nonspecific in the context of ascites and liver disease. If there is clinical concern for acute cholecystitis, recommend follow-up with HIDA scan. Simple cyst within the right kidney measuring 1.7 cm with no further follow-up imaging recommended. Artifact versus nonobstructive stone measuring 6 mm. Electronically Signed: Danni Alvarado MD at 19:36 EST , Assessment & Plan Assessment/Plan (1) Altered mental status: (2) DM type 2 with diabetic peripheral neuropathy: (3) CHF (congestive heart failure): (4) Anemia of chronic renal failure, stage 3 (moderate): QUALIFIERS: Chronic kidney disease stage 3 subtype: unspecified whether 3a or 3b Qualified Code(s): N18.30 - Chronic kidney disease, stage 3 unspecified; D63.1 - Anemia in chronic kidney disease (5) Dizziness: (6) MACHELLE (obstructive sleep apnea): (7) On potassium sparing diuretic therapy: PLAN: Plan # Cirrhosis with decompensated liver disease in the form of altered mental status, suspect metabolic encephalopathy secondary to elevated ammonia -Ammonia 60 -Bili slightly up at 1.7 with AST 83, ALT 48, alk phos 274. 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 Cannot exclude early cirrhosis or chronic liver disease, Multiple gallstones. Thickening of gallbladder wall, nonspecific in the context of ascites and liver disease. If there is clinical concern for acute cholecystitis, recommend follow-up with HIDA scan. -Hepatitis panel -Continue lactulose -INR is 1.5 and that gives him a meld of 20 -Start Xifaxan 550 mg twice a day -N.p.o. past midnight if his hemoglobin continues to drop as acute GI bleed would cause hepatic encephalopathy without significant increase in his ammonia. Charges/Coding Visit Charges Inpatient E&M: 28258 Init Hosp L3
[2023-08-21] MEDS: Pramipexole Di-HCl 1 MG Tablet 2 MG PO (21:57)
[2023-08-21 22:22] LABS: Bedside Glucose 191 mg/dL (74-106)
[2023-08-22] VITALS (14 sets, daily range): BP systolic 95–133; BP diastolic 48–59; PULSE 69–72; RESP 16–18; TEMP 36.2–37.1; O2SAT 96–100; BMI 35.4
[2023-08-22] MEDS: Menthol/Lanolin/Calamine/Znox 113 GM Tube 1 APPLIC TOPICAL ×3 (05:12→22:23)
[2023-08-22 05:36] LABS: Bedside Glucose 157 mg/dL (74-106)
[2023-08-22 05:40] LABS: Absolute Lymphocyte Count 0.79 X10^3/uL (0.83-4.51); Absolute Neutrophil Count 2.5 X10^3/uL (2.0-7.7); Basophil# 0.03 X10^3/uL; Basophil% 0.8 % (0-1); Eosinophil# 0.07 X10^3/uL; Eosinophils% 1.8 % (0-5); Hematocrit 28.3 % (40-54); Hemoglobin 9.2 g/dL (13.0-16.5); Lymphocyte # 0.79 X10^3/ul (0.83-4.51); Lymphocyte % 20.3 % (19-41); Mean Corp Hgb Conc 32.5 g/dL (32-36); Mean Corpuscular Hgb 30.4 pg (27.0-32.0); Mean Corpuscular Volume 93.4 fL (80-94); Mean Platelet Vol. 9.6 fl (6.2-12.0); Monocyte# 0.52 X10^3/uL; Monocyte% 13.3 % (0-10); NRBC Flagged by Analyzer 0 % (0-5); Neutrophil # 2.46 X10^3/uL (2.7-7.7); Platelet Count 119 K/mm3 (150-450); RBC Distribution Width CV 16.6 % (11.6-14.6); RBC Distribution Width SD 55.8 fl (35.1-43.9); Red Blood Count 3.03 M/mm3 (4.6-6.2); White Blood Count 3.9 K/mm3 (4.4-11.0)
--- NOTE | 2023-08-22 06:10 | NURSING ---
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 radiates to the middle of his sternum. feels slightly SOB . no N/T, no nausea, no lightheadedness or dizziness. pt assisted back to bed, respiratory called for EKG. notified. VSS, BG 134.
[2023-08-22 06:15] LABS: Anion Gap 7 (5-15); BUN 35 mg/dL (7-18); BUN/Creat Ratio 19.3 RATIO (10-20); Calcium,Total 8.3 mg/dL (8.5-10.1); Chloride 113 mmol/L (98-107); Creatinine, Serum 1.81 mg/dL (0.70-1.30); EST Glomerular Filtration Rate 38 mL/min (>60); Est Glom Filt Rate - Afr Amer 46 mL/min (>60); Estimated Creatinine Clearance 33.35 ml/min; Glucose 165 mg/dL (74-106); Potassium 3.9 mmol/L (3.5-5.1); Sodium Level 141 mmol/L (136-145)
[2023-08-22 06:26] LABS: International Normalized Ratio 1.5; Prothrombin Time (Protime)PT. 18.3 SECONDS (11.7-14.9)
[2023-08-22 06:27] LABS: Partial Thromboplast Time 49.6 Seconds (24.1-36.2)
[2023-08-22 06:34] LABS: Bedside Glucose 134 mg/dL (74-106)
[2023-08-22 07:15] LABS: Troponin-I HS 21 pg/mL (3.0-78.0)
--- NOTE | 2023-08-22 07:25 | PN.HOSP_ITS ---
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 Becerra his notes and recommendations reviewed. He added Xifaxan to patient's treatment Objective Data Objective Data Vital Signs: Vital Signs Temp Pulse Resp BP Pulse Ox O2 Del Method 98.5 F 70 18 133/56 H 99 Room Air 08/22/23 06:07 08/22/23 06:07 08/22/23 06:07 08/22/23 06:07 08/22/23 06:07 08/22/23 06:07 Oxygen Delivery Method Room Air Weight: 118.64 kg Body Mass Index (BMI) 35.4 Intake & Output: Intake and Output for Last 24 Hours 08/20/23 08/21/23 08/22/23 23:59 23:59 23:59 Intake Total 1250 / 1250 Balance 1250 / 1250 Lab / Micro Data 08/22/23 05:25 08/22/23 05:25 Labs: Laboratory Results - last 24 hr 08/21/23 06:52: WBC 3.5 L, RBC 3.05 L, Hgb 8.8 L, Hct 28.4 L, MCV 93.1, MCH 28.9, MCHC 31.0 L, RDW Std Deviation 56.4 H, RDW Coeff of Flavio 16.5 H, Plt Count 121 L, MPV 9.8, Immature Gran % (Auto) 0.600, Neut % (Auto) 59.7, Lymph % (Auto) 21.8, [place] % (Auto) 15.3 H, Eos % (Auto) 2.0, Baso % (Auto) 0.6, Absolute Neuts (auto) 2.1, Absolute Lymphs (auto) 0.77 L, Nucleated RBC % 0, PT 18.2 H, INR 1.5, Sodium 143, Potassium 3.7, Chloride 113 H, Carbon Dioxide 21.0, Anion Gap 9, BUN 41 H, Creatinine 1.88 H, Estim Creat Clear Calc 32.10, Est GFR (MDRD) Af Amer 44 L, Est GFR (MDRD) Non-Af 37 L, BUN/Creatinine Ratio 21.8 H, Glucose 171 H, Calcium 8.9, Total Bilirubin 1.70 H, AST 65 H, ALT 40, Alkaline Phosphatase 238 H, Total Protein 5.9 L, Albumin 2.0 L, Globulin 3.9, Albumin/Globulin Ratio 0.5 L 08/21/23 11:34: POC Glucose 283 H 08/21/23 15:47: POC Glucose 364 H 08/21/23 21:56: POC Glucose 191 H 08/22/23 05:12: POC Glucose 157 H 08/22/23 05:25: WBC 3.9 L, RBC 3.03 L, Hgb 9.2 L, Hct 28.3 L, MCV 93.4, MCH 30.4, MCHC 32.5, RDW Std Deviation 55.8 H, RDW Coeff of Flavio 16.6 H, Plt Count 119 L, MPV 9.6, Immature Gran % (Auto) 0.800, Neut % (Auto) 63.0, Lymph % (Auto) 20.3, [place] % (Auto) 13.3 H, Eos % (Auto) 1.8, Baso % (Auto) 0.8, Absolute Neuts (auto) 2.5, Absolute Lymphs (auto) 0.79 L, Nucleated RBC % 0, PT 18.3 H, INR 1.5, APTT 49.6 H, Sodium 141, Potassium 3.9, Chloride 113 H, Carbon Dioxide 21.0, Anion Gap 7, BUN 35 H, Creatinine 1.81 H, Estim Creat Clear Calc 33.35, Est GFR (MDRD) Af Amer 46 L, Est GFR (MDRD) Non-Af 38 L, BUN/Creatinine Ratio 19.3, Glucose 165 H, Calcium 8.3 L 08/22/23 06:15: POC Glucose 134 H 08/22/23 06:35: Troponin I High Sens 21 Physical Exam Narrative GENERAL: cooperative HEENT: Atraumatic; normocephalic EYES; Anicteric, Normal Conjunctiva NECK; supple, normal thyroid, RESPIRATORY: Diminished to auscultation CARDIOVASCULAR: Regular S1 S2, GI: soft, normoactive bowel sounds, : No Renal angle tenderness; EXTREMITIES: edema, no clubbing, MUSCULOSKELETAL: no muscle wasting NEURO: Awake; no lateralizing signs. SKIN: No Rash PSYCH; Flat affect Assessment & Plan Assessment/Plan (1) Altered mental status: PLAN: Plan Patient is an 83-year-old gentleman admitted with altered mental status. Found to have elevated ammonia level consistent with hepatic encephalopathy. Patient started on lactulose admitted to regular nursing floor for further management 1. Acute hypoxic encephalopathy ? Secondary to chronic liver disease. Imaging studies obtained on admission demonstrated diffuse fatty liver cirrhosis could not be ruled out. Patient presented with elevated ammonia, AST of 83, ALT of 48 and alk phos of 374 and platelet of 123. Patient started on lactulose after right upper quadrant ultrasound has been ordered results are as above. Consult also placed to GI ? 08/22/2023; patient was seen in consultation by Dr. Becerra with GI he was of the opinion that patient had acute hepatic injury possibly from amiodarone. He added Xifaxan to patient's treatment therapy 2. Chronic congestive heart failure with preserved ejection fraction ? Last echo from 11/11/2022 demonstrated EF of 65%. Patient remains euvolemic 3. Diabetes mellitus type II -patient's oral hypoglycemics held. Placed on long acting insulin, Accu-Cheks a.c. and at bedtime and covered with sliding scale insulin 4. 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 Complicating care weight loss advised 5. Obstructive sleep apnea ? Patient is on BiPAP at night 6. Conduction system disorder ? Status post pacemaker placement 7. Paroxysmal A-fib ? EKG on admission demonstrated paced rhythm. Patient is on systemic anticoagulation with apixaban continue 8. Anemia - Secondary to chronic disorder monitoring H&H and transfuse if patient becomes symptomatic or hemoglobin falls below 7 9. Hypertension - Blood pressure controlled, home medications continued with dose adjustment as needed 10. Restless leg syndrome ? Patient is on Mirapex continue 11. Chronic kidney disease stage IIIb ? Kidney function at base 12. BPH with lower urinary obstruction - Patient treated with finasteride 13. DVT prophylaxis ? On apixaban 14. Thickened gallbladder wall with multiple gallstones ? Ordered HIDA scan as recommended by the radiology Time spent in the patient's overall evaluation,decision-making process, review of diagnostic data, adjustment of management, discussion with other providers, nursing nursing and ancillary staff involved in patient's care documentation, 50 Minutes Charges/Coding Visit Charges Inpatient E&M: 61895 Subs Hosp L3
--- NOTE | 2023-08-22 07:27 | NM_ITS ---
CLINICAL: 83-year-old male with history of abnormal serum transaminase enzyme levels. RADIONUCLIDE HEPATOBILIARY SCINTIGRAPHY COMPARISON: Abdominal ultrasound report 08/20/2003 FINDINGS: Following the intravenous administration of 5.1 mCi of 99m Tc Mebrofenin, hepatobiliary images reveal: 1. Relatively prompt and homogeneous radiopharmaceutical concentration is noted by a normal sized liver. No parenchymal defects are identified. 2. Gallbladder activity is identified at 30 minutes post radiopharmaceutical administration. 3. Small intestinal tract is observed at 60 minutes following tracer injection. 4. Washout of the radiopharmaceutical by the hepatic parenchyma appears qualitatively normal. Cholecystokinin (0.02 ug/kg) was administered intravenously over a 30-minute period. The post CCK gallbladder ejection fraction calculated at 20 minutes following Cholecystokinin administration was noted to be 12.0 % (normal greater than 35%). During 30 minutes of post CCK imaging, there is scintigraphic evidence refilling of the gallbladder. There is scintigraphic evidence of duodenal gastric reflux following cholecystokinin infusion. GA/Hepatobilliary Img w/Pharm Int IMPRESSION: 1. ABNORMAL 99m Tc Mebrofenin hepatobiliary imaging examination with Cholecystokinin. A. A gallbladder ejection fraction calculated to be less than 35% following the administration of Cholecystokinin is consistent with the presence of functional hepatobiliary disease (gallbladder and/or sphincter of Oddi dyskinesia) and/or organic hepatobiliary disease (chronic acalculous cholecystitis and/or cystic duct syndrome) in patients with intermediate to high pretest probabilities of hepatobiliary illness. (Galindo Boo et al, Journal of Nuclear Medicine 32:1695, 1990). B. An encountered normal gallbladder ejection fraction with refilling of the gallbladder following CCK administration may represent the presence of Sphincter of Oddi dysfunction. Correlation with Sphincter of Oddi manometry may be of benefit. (Tarun and Tarun, J Nucl Med 38:1824, 1997). C. 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 Electronically Signed: Vin Houser DO at 14:27 EST ,
[2023-08-22 08:12] LABS: HEPATITIS B SURFACE AG Negative (Negative); Hep C Antibodies Non Reactive (Non Reactive); Hepatitis A IgM Antibody Negative (Negative); Hepatitis B Core AB IgM Negative (Negative)
[2023-08-22 08:18] LABS: Hemoglobin A1c 7.4 % (3.8-5.6)
[2023-08-22 09:39] LABS: Troponin-I HS 20 pg/mL (3.0-78.0)
[2023-08-22 10:14] LABS: AST(SGOT) 92 U/L (15-37); Alanine Aminotransfer ALT/SGPT 46 U/L (16-61); Alkaline Phosphatase 239 U/L (45-117); Bilirubin, Direct 1.19 mg/dL (0.00-0.30); Globulin 3.9 g/dL (2.2-4.2); Protein, Total 5.9 g/dL (6.4-8.2)
--- NOTE | 2023-08-22 10:33 | NURSING ---
pt to hida scan
--- NOTE | 2023-08-22 11:39 | NURSING ---
pt going from hida scan to endo. called ben and notified her that pt in hida scan and will go to endo for egd after.
[2023-08-22] MEDS: Metoprolol(XL)Succ 25 MG Tablet 12.5 MG PO (13:35)
[2023-08-22] MEDS: hydrALAZINE 50 MG Tablet PO ×2 (13:36→22:23)
[2023-08-22] MEDS: Amiodarone 200 MG Tablet PO (13:36)
[2023-08-22] MEDS: Sertraline 50 MG Tablet 25 MG PO (13:37)
[2023-08-22] MEDS: rifAXIMin 550 MG Tablet PO ×2 (13:39→22:25)
[2023-08-22 13:57] LABS: Bedside Glucose 134 mg/dL (74-106)
--- NOTE | 2023-08-22 14:14 | CHAPLAIN ---
Type of Pastoral Visit _x__ Initial Visit ___ Follow-up Visit ___ On-call Visit ___ General Patient Visit ___ Spiritual Assessment ___ Family Conference ___ Bereavement ___ Rapid Response ___ Code Blue ___ Other (describe below) Pastoral Care Referral From _x__ Patient ___ Family ___ Nurse ___ Physician ___ Lock Tender ___ Real Estate Marketing Coordinator ___ Other (describe below) Sacrament/Intervention _x__ Active listening ___ Anointing ___ Cheondoism ___ Bereavement ___ Communion ___ Ariadna exploration ___ ___ Life review _x__ Prayer ___ Reconciliation ___ Sacrament of Sick _x__ Supportive presence ___ Wedding ___ Other (describe below) Pastoral Comments patient expresses thankfulness for the spiritual care support and visit; pt has been seen numerous times in the past; pt gives updates and current status of health; spouse is also with him for support; pt asks for prayers
--- NOTE | 2023-08-22 14:27 | NURSING ---
pt to endo
--- NOTE | 2023-08-22 15:48 | OP.EGD_ITS ---
Patient Name: Jr Ji Procedure Date: 08/22/2023 2:39 PM Date of : 1940 Age: 83 Procedure: Upper GI endoscopy Indications: Iron deficiency anemia Providers: Jesus Becerra DO Medicines: Monitored Anesthesia Care Patient Profile: This is an 83 year old male. Refer to note in patient chart for documentation of history and physical. Patient has symptoms of acute global abdominal pain. Complications: No immediate complications. Procedure: Pre-Anesthesia Assessment: - Prior to the procedure, a History and Physical was performed, and patient medications and allergies were reviewed. The risks and benefits of the procedure and the sedation options and risks were discussed with the patient. All questions were answered and informed consent was obtained. Patient identification and proposed procedure were verified by the physician in the pre-procedure area. Mental Status Examination: alert and oriented. Airway Examination: normal oropharyngeal airway and neck mobility. Respiratory Examination: clear to auscultation. CV Examination: normal. Prophylactic Antibiotics: The patient does not require prophylactic antibiotics. Prior Anticoagulants: The patient has taken no anticoagulant or antiplatelet agents. After reviewing the risks and benefits, the patient was deemed in satisfactory condition to undergo the procedure. The anesthesia plan was to use monitored anesthesia care (MAC). Immediately prior to administration of medications, the patient was re-assessed for adequacy to receive sedatives. The heart rate, respiratory rate, oxygen saturations, blood pressure, adequacy of pulmonary ventilation, and response to care were monitored throughout the procedure. The physical status of the patient was re-assessed after the procedure. After obtaining informed consent, the endoscope was passed under direct vision. Throughout the procedure, the patient's blood pressure, pulse, and oxygen saturations were monitored continuously. The gastroscope was introduced through the mouth, and advanced to the second part of duodenum. The upper GI endoscopy was accomplished without difficulty. The patient tolerated the procedure well. Scope In: 3:22:27 PM Scope Out: 3:26:02 PM Total Procedure Duration Time 0 hours 3 minutes 35 seconds Findings: Small (< 5 mm) varices were found in the lower third of the esophagus. They were 2 mm in largest diameter. Three 4 mm angiodysplastic lesions with bleeding were found in the cardia and on the greater curvature of the stomach. Coagulation for hemostasis using heater probe was successful. Estimated blood loss was minimal. The first portion of the duodenum was normal. Impression: - Small (< 5 mm) esophageal varices. - Three bleeding angiodysplastic lesions in the stomach. Treated with a heater probe. - Normal first portion of the duodenum. - No specimens collected. Recommendation: - Return patient to [facility] for ongoing care. - Resume regular diet. - Use Protonix (pantoprazole) 40 mg PO daily. - Continue present medications. Procedure Code(s): --- Professional --- 41152, Esophagogastroduodenoscopy, flexible, transoral; with control of bleeding, any method CPT copyright 2021 [employer]. All rights reserved. The codes documented in this report are preliminary and upon tobacco drier operator review may be revised to meet current compliance requirements. Jesus Becerra DO 08/22/2023 3:47:21 PM This report has been signed electronically. Number of Addenda: 0 Note Initiated On: 08/22/2023 2:39 PM
--- NOTE | 2023-08-22 15:48 | OP.CCLET_ITS ---
08/22/2023 Tosha Shrestha MD [address] [place] [address] [place] [address] Re : Upper GI endoscopy procedure for Jr Ji Dear Dr. Shrestha This procedure was performed on Tuesday, August 22, 2023. My impressions and recommendations are as follows: Impressions : - Small (< 5 mm) esophageal varices. - Three bleeding angiodysplastic lesions in the stomach. Treated with a heater probe. - Normal first portion of the duodenum. - No specimens collected. Recommendations : - Return patient to [facility] for [facility] care. - Resume regular diet. - Use Protonix (pantoprazole) 40 mg PO daily. - Continue present medications. My findings are described in the full procedure note, which is enclosed. If I can be of further assistance, please feel free to contact me at . Sincerely, Jesus Friend, DO 08/22/2023 3:47:21 PM This report has been signed electronically.
--- NOTE | 2023-08-22 16:08 | SUR.PHASEI ---
FRESH GOWN AND PILLOW CASE PROVIDED TO PATIENT
[2023-08-22] MEDS: Furosemide 40 MG Tablet 60 MG PO (16:24)
[2023-08-22] MEDS: Finasteride 5 MG Tablet PO (16:25)
[2023-08-22 16:45] LABS: Bedside Glucose 130 mg/dL (74-106)
--- NOTE | 2023-08-22 22:05 | CPS ---
Bipap not in room, pt refuses.
[2023-08-22] MEDS: APIXABAN 2.5 MG TABLET (WCH) PO (22:23)
[2023-08-22] MEDS: Lactulose 20 GM/30 ML UDC PO (22:23)
[2023-08-22] MEDS: Insulin Lispro 100 UNIT/ML INSULN.PEN SC (22:24)
[2023-08-22] MEDS: Pramipexole Di-HCl 1 MG Tablet 2 MG PO (22:24)
[2023-08-22 23:28] LABS: Bedside Glucose 253 mg/dL (74-106)
[2023-08-23 04:30] VITALS: BP 124/53; PULSE 72; RESP 18; TEMP 36.6; O2SAT 97
[2023-08-23] MEDS: Insulin Lispro 100 UNIT/ML INSULN.PEN SC (05:20)
[2023-08-23 05:43] VITALS: BMI 35.5
[2023-08-23 06:11] LABS: Bedside Glucose 263 mg/dL (74-106)
--- NOTE | 2023-08-23 07:00 | EX.PCM.PN.GI ---
Subjective Subjective Patient underwent an upper endoscopy yesterday because of anemia and possible GI bleed as etiology of worsening encephalopathy. He was discovered to have multiple angiodysplastic lesions that were treated endoscopically. Mental status is better today. Objective Data Objective Data Vital Signs: Vital Signs Temp Pulse Resp BP Pulse Ox O2 Del Method 99.0 F 70 16 105/48 L 98 Room Air 08/23/23 07:51 08/23/23 11:29 08/23/23 07:51 08/23/23 07:51 08/23/23 07:51 08/23/23 07:51 Oxygen Delivery Method Room Air Weight: 262 lb 9.129 oz Body Mass Index (BMI) 35.5 Intake & Output: Intake and Output for Last 24 Hours 08/21/23 08/22/23 08/23/23 23:59 23:59 23:59 Intake Total 1250 / 1250 250 / 750 850 / 850 Balance 1250 / 1250 250 / 750 850 / 850 Lab / Micro Data 08/22/23 05:25 08/22/23 05:25 Labs: Laboratory Results - last 24 hr 08/22/23 13:35: POC Glucose 134 H 08/22/23 16:22: POC Glucose 130 H 08/22/23 22:21: POC Glucose 253 H 08/23/23 05:19: POC Glucose 263 H Radiography Diagnostic Testing: Radiology Impression Hepatobiliary Scan Nuclear Medicine 08/22/23 07:27 IMPRESSION: 1. ABNORMAL 99m Tc Mebrofenin hepatobiliary imaging examination with Cholecystokinin. A. A gallbladder ejection fraction calculated to be less than 35% following the administration of Cholecystokinin is consistent with the presence of functional hepatobiliary disease (gallbladder and/or sphincter of Oddi dyskinesia) and/or organic hepatobiliary disease (chronic acalculous cholecystitis and/or cystic duct syndrome) in patients with intermediate to high pretest probabilities of hepatobiliary illness. (Galindo Boo et al, Journal of Nuclear Medicine 32:1695, 1991). B. An encountered normal gallbladder ejection fraction with refilling of the gallbladder following CCK administration may represent the presence of Sphincter of Oddi dysfunction. Correlation with Sphincter of Oddi manometry may be of benefit. (Tarun and Tarun, J Nucl Med 38:1824, 1997). C. 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 Electronically Signed: Vin Houser DO at 14:27 EST , Physical Exam Narrative GENERAL: cooperative HEENT: Atraumatic; normocephalic EYES; Anicteric, Normal Conjunctiva NECK; supple, normal thyroid, RESPIRATORY: Diminished to auscultation CARDIOVASCULAR: Regular S1 S2, GI: soft, normoactive bowel sounds, : No Renal angle tenderness; EXTREMITIES: edema, no clubbing, MUSCULOSKELETAL: no muscle wasting NEURO: Awake; no lateralizing signs. SKIN: No Rash PSYCH; Flat affect Assessment & Plan Assessment/Plan (1) Altered mental status: QUALIFIERS: Altered mental status type: disorientation Qualified Code(s): R41.0 - Disorientation, unspecified (2) DM type 2 with diabetic peripheral neuropathy: (3) CHF (congestive heart failure): QUALIFIERS: Heart failure type: unspecified Heart failure chronicity: chronic Qualified Code(s): I50.9 - Heart failure, unspecified (4) Anemia of chronic renal failure, stage 3 (moderate): QUALIFIERS: Chronic kidney disease stage 3 subtype: unspecified whether 3a or 3b Qualified Code(s): N18.30 - Chronic kidney disease, stage 3 unspecified; D63.1 - Anemia in chronic kidney disease (5) Dizziness: (6) MACHELLE (obstructive sleep apnea): (7) On potassium sparing diuretic therapy: PLAN: Plan # Cirrhosis with decompensated liver disease in the form of altered mental status, suspect metabolic encephalopathy secondary to elevated ammonia -Ammonia 60 -Bili slightly up at 1.7 with AST 83, ALT 48, alk phos 274. 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 Cannot exclude early cirrhosis or chronic liver disease, Multiple gallstones. Thickening of gallbladder wall, nonspecific in the context of ascites and liver disease. If there is clinical concern for acute cholecystitis, recommend follow-up with HIDA scan. -Hepatitis panel -Continue lactulose -INR is 1.5 and that gives him a meld of 20 -Start Xifaxan 550 mg twice a day -N.p.o. past midnight if his hemoglobin continues to drop as acute GI bleed would cause hepatic encephalopathy without significant increase in his ammonia. -patient is doing well. He is tolerating lactulose and Xifaxan. He will need further workup as an outpatient. I will discuss with him whether he wants to get a liver biopsy to see if this is medication induced plus nonalcoholic fatty liver disease. This is likely secondary to diabetes and obesity. He has a low MELD at 11 and he is a child [employer]is class a at this time. There was only mild ascites so not recommending any diuretics at this time. Charges/Coding Visit Charges Inpatient E&M: 38906 Subs Hosp L3
--- NOTE | 2023-08-23 07:34 | PN.HOSP_ITS ---
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 Three bleeding angiodysplastic lesions in the stomach. Treated with a heater probe. Normal first portion of the duodenum. No specimens collected. Recommendations : - Return patient to [facility] for ongoing care. Resume regular diet. Use Protonix (pantoprazole) 40 mg PO daily. Continue present medications Objective Data Objective Data Vital Signs: Vital Signs Temp Pulse Resp BP Pulse Ox O2 Del Method 97.8 F 72 18 124/53 H 97 Room Air 08/23/23 04:30 08/23/23 04:30 08/23/23 04:30 08/23/23 04:30 08/23/23 04:30 08/23/23 04:30 Oxygen Delivery Method Room Air Weight: 119.1 kg Body Mass Index (BMI) 35.5 Intake & Output: Intake and Output for Last 24 Hours 08/21/23 08/22/23 08/23/23 23:59 23:59 23:59 Intake Total 1250 / 1250 250 / 750 850 / 850 Balance 1250 / 1250 250 / 750 850 / 850 Lab / Micro Data 08/22/23 05:25 08/22/23 05:25 Labs: Laboratory Results - last 24 hr 08/21/23 06:52: Hepatitis A IgM Ab Negative, Hep Bs Antigen Negative, Hep B Core IgM Ab Negative, Hepatitis C Ab (EIA) Non Reactive, Hep C Ab Comment Comment 08/22/23 05:25: Hemoglobin A1c 7.4 H 08/22/23 08:54: Total Bilirubin 1.90 H, Direct Bilirubin 1.19 H, AST 92 H, ALT 46, Alkaline Phosphatase 239 H, Troponin I High Sens 20, Total Protein 5.9 L, Albumin 2.0 L, Globulin 3.9 08/22/23 13:35: POC Glucose 134 H 08/22/23 16:22: POC Glucose 130 H 08/22/23 22:21: POC Glucose 253 H 08/23/23 05:19: POC Glucose 263 H Radiography Diagnostic Testing: Radiology Impression Hepatobiliary Scan Nuclear Medicine 08/22/23 07:27 IMPRESSION: 1. ABNORMAL 99m Tc Mebrofenin hepatobiliary imaging examination with Cholecystokinin. A. A gallbladder ejection fraction calculated to be less than 35% following the administration of Cholecystokinin is consistent with the presence of functional hepatobiliary disease (gallbladder and/or sphincter of Oddi dyskinesia) and/or organic hepatobiliary disease (chronic acalculous cholecystitis and/or cystic duct syndrome) in patients with intermediate to high pretest probabilities of hepatobiliary illness. (Galindo Boo et al, Journal of Nuclear Medicine 32:1695, 1990). B. An encountered normal gallbladder ejection fraction with refilling of the gallbladder following CCK administration may represent the presence of Sphincter of Oddi dysfunction. Correlation with Sphincter of Oddi manometry may be of benefit. (Tarun and Tarun, J Nucl Med 38:1824, 1997). C. 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 Electronically Signed: Vin Houser DO at 14:27 EST , Physical Exam Narrative GENERAL: cooperative HEENT: Atraumatic; normocephalic EYES; Anicteric, Normal Conjunctiva NECK; supple, normal thyroid, RESPIRATORY: Diminished to auscultation CARDIOVASCULAR: Regular S1 S2, GI: soft, normoactive bowel sounds, : No Renal angle tenderness; EXTREMITIES: edema, no clubbing, MUSCULOSKELETAL: no muscle wasting NEURO: Awake; no lateralizing signs. SKIN: No Rash PSYCH; Flat affect Assessment & Plan Assessment/Plan (1) Altered mental status: PLAN: Plan Patient is an 83-year-old gentleman admitted with altered mental status. Found to have elevated ammonia level consistent with hepatic encephalopathy. Patient started on lactulose admitted to regular nursing floor for further management 1. Acute hypoxic encephalopathy ? Secondary to chronic liver disease. Imaging studies obtained on admission demonstrated diffuse fatty liver cirrhosis could not be ruled out. Patient pr esented with elevated ammonia, AST of 83, ALT of 48 and alk phos of 374 and platelet of 123. Patient started on lactulose after right upper quadrant ultrasound has been ordered results are as above. Consult also placed to GI ? 08/22/2023; patient was seen in consultation by Dr. Becerra with GI he was of the opinion that patient had acute hepatic injury possibly from amiodarone. He added Xifaxan to patient's treatment therapy 2. Anemia ? Suspected to be secondary to anemia of chronic disorder as well as chronic blood loss anemia. Consult was placed to GI patient underwent EGD results are as below and recommendations - Small (< 5 mm) esophageal varices. - Three bleeding angiodysplastic lesions in the stomach. Treated with a heater probe. Normal first portion of the duodenum. No specimens collected. Recommendations : - Return patient to [facility] for ongoing care. Resume regular diet. Use Protonix (pantoprazole) 40 mg PO daily. Continue present medications. 3. Chronic congestive heart failure with preserved ejection fraction ? Last echo from 11/11/2022 demonstrated EF of 65%. Patient remains euvolemic 4. Diabetes mellitus type II -patient's oral hypoglycemics held. Placed on long acting insulin, Accu-Cheks a.c. and at bedtime and covered with sliding scale insulin 5. Obstructive sleep apnea ? Patient is on BiPAP at night 6. Conduction system disorder ? Status post pacemaker placement 7. Paroxysmal A-fib ? EKG on admission demonstrated paced rhythm. Patient is on systemic anticoagulation with apixaban continue 8. 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 Complicating care weight loss advised 9. Hypertension - Blood pressure controlled, home medications continued with dose adjustment as needed 10. Restless leg syndrome ? Patient is on Mirapex continue 11. Chronic kidney disease stage IIIb ? Kidney function at base 12. BPH with lower urinary obstruction - Patient treated with finasteride 13. DVT prophylaxis ? On apixaban 14. Thickened gallbladder wall with multiple gallstones ? Ordered HIDA scan as recommended by the radiology Time spent in the patient's overall evaluation,decision-making process, review of diagnostic data, adjustment of management, discussion with other providers, nursing nursing and ancillary staff involved in patient's care documentation, 35 Minutes
[2023-08-23 07:51] VITALS: BP 105/48; PULSE 70; RESP 16; TEMP 37.2; O2SAT 98
--- NOTE | 2023-08-23 09:28 | DS.PCM_ITS ---
Providers Date of Admission: 08/20/23 Date of Discharge: 08/23/23 Primary Care Physician: Dr. Tosha Shrestha MD Consultations 08/21/23 13:19 Consult: Gastroenterology Routine Consulting Provider: [facility] Reason for Consult: NAFLD with hepatic encephalopathy EMERGENT Consult: No Notified: No Date Notified: 08/21/23 Time Notified: 13:19 Reason For Visit: ?HEPATIC ENCEPHALOPATHY Diagnosis Discharge Diagnosis (1) Altered mental status: Status: Acute Code(s): R41.82 - Altered mental status, unspecified Plan Patient is an 83-year-old gentleman admitted with altered mental status. Found to have elevated ammonia level consistent with hepatic encephalopathy. Patient started on lactulose admitted to regular nursing floor for further management 1. Acute hypoxic encephalopathy ? Secondary to chronic liver disease. Imaging studies obtained on admission demonstrated diffuse fatty liver cirrhosis could not be ruled out. Patient presented with elevated ammonia, AST of 83, ALT of 48 and alk phos of 374 and platelet of 123. Patient started on lactulose after right upper quadrant ultrasound has been ordered results are as above. Consult also placed to GI ? 08/22/2023; patient was seen in consultation by Dr. Becerra with GI he was of the opinion that patient had acute hepatic injury possibly from amiodarone. He added Xifaxan to patient's treatment therapy 2. Anemia ? Suspected to be secondary to anemia of chronic disorder as well as chronic blood loss anemia. Consult was placed to GI patient underwent EGD results are as below and recommendations - Small (< 5 mm) esophageal varices. - Three bleeding angiodysplastic lesions in the stomach. Treated with a heater probe. Normal first portion of the duodenum. No specimens collected. Recommendations : - Return patient to hospital [facility] for ongoing care. Resume regular diet. Use Protonix (pantoprazole) 40 mg PO daily. Continue present medications. 3. Chronic congestive heart failure with preserved ejection fraction ? Last echo from 11/11/2022 demonstrated EF of 65%. Patient remains euvolemic 4. Diabetes mellitus type II -patient's oral hypoglycemics held. Placed on long acting insulin, Accu-Cheks a.c. and at bedtime and covered with sliding scale insulin 5. Obstructive sleep apnea ? Patient is on BiPAP at night 6. Conduction system disorder ? Status post pacemaker placement 7. Paroxysmal A-fib ? EKG on admission demonstrated paced rhythm. Patient is on systemic anticoagulation with apixaban continue 8. 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 Complicating care weight loss advised 9. Hypertension - Blood pressure controlled, home medications continued with dose adjustment as needed 10. Restless leg syndrome ? Patient is on Mirapex continue 11. Chronic kidney disease stage IIIb ? Kidney function at base 12. BPH with lower urinary obstruction - Patient treated with finasteride 13. DVT prophylaxis ? On apixaban 14. Thickened gallbladder wall with multiple gallstones ? Ordered HIDA scan as recommended by the radiology ? Results of HIDA scan nonspecific. Time spent in the patient's overall evaluation,decision-making process, review of diagnostic data, adjustment of management, discussion with other providers, nursing nursing and ancillary staff involved in patient's care documentation, 35 Minutes Medications at Discharge Home Medications finasteride 5 mg tablet 5 mg PO DAILY PROSTATE #90 tabs 11/03/18 ergocalciferol (vitamin D2) 1,250 mcg (50,000 unit) capsule 50,000 unit PO QMONTH SUPPLEMENT #14 caps 11/29/22 nitroglycerin 0.4 mg sublingual tablet 0.4 mg sublingual Q5M PRN Cardiac/Chest Pain 30 days #30 tabs 12/03/22 metoprolol succinate 25 mg tablet,extended release 24 hr 12.5 mg PO DAILY BLOOD PRESSURE 12/07/22 furosemide 40 mg tablet (Lasix) 60 mg (1.5 x 40 mg) PO DAILY EDEMA #45 tabs 12/24/22 apixaban 2.5 mg tablet (Eliquis) 2.5 mg PO BID BLOOD THINNER #180 tabs 12/25/22 atorvastatin 10 mg tablet 10 mg PO QHS CHOLESTEROL #90 tabs 12/25/22 pen needle, diabetic 31 gauge x 3/16 (BD Ultra-Fine Mini Pen Needle) #100 ea 12/30/22 amiodarone 200 mg tablet 200 mg PO DAILY HEART #90 tabs 01/02/23 hydralazine 50 mg tablet 75 mg PO BID BLOOD PRESSURE 02/04/23 pramipexole 1 mg tablet (Mirapex) 2 mg (2 x 1 mg) PO QHS RESTLESS LEG SYNDROME #180 tabs 02/04/23 sertraline 25 mg tablet 25 mg PO DAILY DEPRESSION 02/04/23 fluticasone propionate 50 mcg/actuation nasal spray,suspension 2 spray intranasal DAILY NASAL CONGESTION #16 grams 06/24/23 progesterone micronized 100 mg capsule 100 mg PO QAM HORMONE REPLACEMENT #90 caps 07/03/23 lancets 30 gauge (OneTouch Delica Plus Lancet) #100 ea 07/22/23 walker (Ultra-Light Rollator misc) #1 ea 08/13/23 famotidine 40 mg tablet 40 mg PO DAILY ACID REFLUX #30 tabs 08/15/23 ferrous sulfate 325 mg (65 mg iron) tablet 325 mg PO TH supplement #90 tabs 08/15/23 dulaglutide 4.5 mg/0.5 mL subcutaneous pen injector 4.5 mg subcut FR DIABETES 08/20/23 insulin glargine-yfgn 100 unit/mL (3 mL) subcutaneous pen (Semglee (insulin glargine-yfgn) Pen) 32 unit subcut DAILY DIABETES 08/20/23 simvastatin .Route chanfe to lipitor 08/20/23 lactulose 20 gram/30 mL oral solution 20 g (30 mL) PO BID 30 days #1,800 mL 08/23/23 pantoprazole 40 mg tablet,delayed release (Protonix) 40 mg PO DAILY #60 tabs 08/23/23 rifaximin 550 mg tablet (Xifaxan) 550 mg PO BID 60 days #120 tabs 08/23/23 Hospital Course Summary of Care Provided Minutes Spent on Discharge: 35 Physical Exam Narrative GENERAL: cooperative HEENT: Atraumatic; normocephalic EYES; Anicteric, Normal Conjunctiva NECK; supple, normal thyroid, RESPIRATORY: Diminished to auscultation CARDIOVASCULAR: Regular S1 S2, GI: soft, normoactive bowel sounds, : No Renal angle tenderness; EXTREMITIES: edema, no clubbing, MUSCULOSKELETAL: no muscle wasting NEURO: Awake; no lateralizing signs. SKIN: No Rash PSYCH; Flat affect Weight / BMI Weight Weight: 119.1 kg Body Mass Index (BMI) 35.5 ABG / Lab / Microbiology Data 08/22/23 05:25 08/22/23 05:25 Laboratory: Laboratory Results - last 24 hr 08/22/23 08:54: Total Bilirubin 1.90 H, Direct Bilirubin 1.19 H, AST 92 H, ALT 46, Alkaline Phosphatase 239 H, Troponin I High Sens 20, Total Protein 5.9 L, Albumin 2.0 L, Globulin 3.9 08/22/23 13:35: POC Glucose 134 H 08/22/23 16:22: POC Glucose 130 H 08/22/23 22:21: POC Glucose 253 H 08/23/23 05:19: POC Glucose 263 H Radiography Diagnostic Testing: Radiology Impression Hepatobiliary Scan Nuclear Medicine 08/22/23 07:27 IMPRESSION: 1. ABNORMAL 99m Tc Mebrofenin hepatobiliary imaging examination with Cholecystokinin. A. A gallbladder ejection fraction calculated to be less than 35% following the administration of Cholecystokinin is consistent with the presence of functional hepatobiliary disease (gallbladder and/or sphincter of Oddi dyskinesia) and/or organic hepatobiliary disease (chronic acalculous cholecystitis and/or cystic duct syndrome) in patients with intermediate to high pretest probabilities of hepatobiliary illness. (Galindo Boo et al, Journal of Nuclear Medicine 32:1695, 1990). B. An encountered normal gallbladder ejection fraction with refilling of the gallbladder following CCK administration may represent the presence of Sphincter of Oddi dysfunction. Correlation with Sphincter of Oddi manometry may be of benefit. (Tarun and Tarun, J Nucl Med 38:1824, 1997). C. 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 Electronically Signed: Vin Houser DO at 14:27 EST , D/C Instructions Discharge Diet: No restrictions Discharge Activity: Return to Normal Activity Call your doctor if you observe: Fever of 101 or Higher, Shortness of breath, Fainting spells and Chest pain Meaningful Use Info Meaningful Use Diagnoses (Choose all that apply): None applicable Discharge Plan Admission Admit Date/Time: 08/20/23 18:25 Attending Provider: Madan Sethi Primary Care Provider: Tosha Shrestha Consulting Providers: Margarita Jackson Discharge Orders/Prescriptions Prescriptions: New Xifaxan 550 mg Tablet 550 mg PO BID 60 Days Qty: 120 0RF lactulose 20 gram/30 mL Solution 20 g PO BID 30 Days Qty: 1800 0RF pantoprazole [Protonix] 40 mg tablet,delayed release (DR/EC) 40 mg PO DAILY Qty: 60 0RF Continued pramipexole [Mirapex] 1 mg tablet 2 mg PO QHS Qty: 180 3RF nitroglycerin 0.4 mg Tablet, Sublingual 0.4 mg sublingual Q5M PRN (Reason: Cardiac/Chest Pain) 30 Days Qty: 30 0RF metoprolol succinate 25 mg tablet extended release 24 hr 12.5 mg PO DAILY hydralazine 50 mg tablet 75 mg PO BID sertraline 25 mg tablet 25 mg PO DAILY furosemide [Lasix] 40 mg tablet 60 mg PO DAILY Qty: 45 0RF dulaglutide 4.5 mg/0.5 mL pen injector 4.5 mg SC FR simvastatin .Route insulin glargine-yfgn [Semglee(insulin glarg-yfgn)Pen] 100 unit/mL (3 mL) insulin pen 32 unit SUBCUT DAILY finasteride 5 mg tablet 5 mg PO DAILY Qty: 90 3RF ergocalciferol (vitamin D2) 1,250 mcg (50,000 unit) capsule 50,000 unit PO QMONTH Qty: 14 1RF Eliquis 2.5 mg tablet 2.5 mg PO BID Qty: 180 3RF atorvastatin 10 mg tablet 10 mg PO QHS Qty: 90 3RF (DME) pen needle, diabetic [BD Ultra-Fine Mini Pen Needle] 31 gauge x 3/16 needle See Rx Instructions .Route Qty: 100 4RF Rx Instructions: As directed amiodarone 200 mg tablet 200 mg PO DAILY Qty: 90 3RF fluticasone propionate 50 mcg/actuation spray,suspension 2 spray intranasal DAILY Qty: 16 3RF Hold Instructions: MD Ordered progesterone micronized 100 mg capsule 100 mg PO QAM Qty: 90 3RF (DME) lancets [OneTouch Delica Plus Lancet] 30 gauge misc See Rx Instructions .Route Qty: 100 4RF Rx Instructions: As directed; Check BG 2-3 times daily for DMII (DME) Ultra-Light Rollator Misc See Rx Instructions .Route Qty: 1 0RF Rx Instructions: As directed famotidine 40 mg tablet 40 mg PO DAILY Qty: 30 1RF ferrous sulfate 325 mg (65 mg iron) tablet 325 mg PO Qty: 90 1RF Rx Instructions: only Referrals / Follow Up: Tosha Shrestha MD [Primary Care Provider] - Within 2 Weeks Jesus Becerra DO [Med Staff - Active Staff] - Within 2 Weeks Disposition Disposition (needs filled in before D/C Order can be placed): Home Health Service Charges/Coding Visit Charges Inpatient E&M: 88714 Disch Hosp >30min
[2023-08-23 11:25] VITALS: PULSE 70
[2023-08-23] MEDS: hydrALAZINE 50 MG Tablet PO (11:25)
[2023-08-23] MEDS: Amiodarone 200 MG Tablet PO (11:26)
[2023-08-23] MEDS: Furosemide 40 MG Tablet 60 MG PO (11:27)
[2023-08-23] MEDS: APIXABAN 2.5 MG TABLET (WCH) PO (11:27)
[2023-08-23] MEDS: rifAXIMin 550 MG Tablet PO (11:28)
[2023-08-23] MEDS: Finasteride 5 MG Tablet PO (11:28)
[2023-08-23 11:29] VITALS: PULSE 70
[2023-08-23] MEDS: Sertraline 50 MG Tablet 25 MG PO (11:29)
[2023-08-23] MEDS: Metoprolol(XL)Succ 25 MG Tablet 12.5 MG PO (11:29)
[2023-08-24 10:07] LABS: AFP, Tumor Marker 1.9 ng/mL (0.0-6.4)
== END 2023-08-23 12:00 | disposition home health service (06) | DRG 441 ==
LOC: ED 17:12 → MS3 20:20
PROVIDERS: Anesthesiology; Internal Medicine; Internal Medicine Gastroenterology; Admitting Provider Internal Medicine; Emergency Provider Emergency Medicine; PCP Internal Medicine; Visit Provider Internal Medicine
PROC: 0DJ08ZZ Inspection of Upper Intestinal Tract, Via Natural or Artificial Opening Endoscopic (ICD-10-PCS; CPT 43235; principal; 2023-08-22 14:55)
DX: K76.82 Hepatic encephalopathy (principal); K31.811 Angiodysplasia of stomach and duodenum with bleeding; I13.0 Hypertensive heart and chronic kidney disease with heart failure and stage 1 through stage 4 chronic kidney disease, or unspecified chronic kidney disease; N13.8 Other obstructive and reflux uropathy; I85.00 Esophageal varices without bleeding; I50.32 Chronic diastolic (congestive) heart failure; I49.5 Sick sinus syndrome; D63.1 Anemia in chronic kidney disease; I48.0 Paroxysmal atrial fibrillation; G25.81 Restless legs syndrome; E11.22 Type 2 diabetes mellitus with diabetic chronic kidney disease; N18.32 Chronic kidney disease, stage 3b; E11.42 Type 2 diabetes mellitus with diabetic polyneuropathy; E11.65 Type 2 diabetes mellitus with hyperglycemia; Z79.4 Long term (current) use of insulin; D50.0 Iron deficiency anemia secondary to blood loss (chronic); F32.A Depression, unspecified; G47.33 Obstructive sleep apnea (adult) (pediatric); E78.5 Hyperlipidemia, unspecified; I25.10 Atherosclerotic heart disease of native coronary artery without angina pectoris; K76.0 Fatty (change of) liver, not elsewhere classified; K80.20 Calculus of gallbladder without cholecystitis without obstruction; E66.9 Obesity, unspecified; N40.1 Benign prostatic hyperplasia with lower urinary tract symptoms; R35.0 Frequency of micturition; Z68.36 Body mass index [BMI] 36.0-36.9, adult; Z95.0 Presence of cardiac pacemaker; Z79.01 Long term (current) use of anticoagulants; Z79.84 Long term (current) use of oral hypoglycemic drugs; Z79.85 Long-term (current) use of injectable non-insulin antidiabetic drugs; Z79.899 Other long term (current) drug therapy; Z86.718 Personal history of other venous thrombosis and embolism; Z86.73 Personal history of transient ischemic attack (TIA), and cerebral infarction without residual deficits
CPT/HCPCS: 36415; 70450; 71046; 76705; 78227; 80048; 80053; 80074; 80076; 81001; 82105; 82140; 82962; 83036; 83880; 84484; 85025; 85610; 85730; 93005; 94668; 94762; 97162; 97166; 97535; 99285; A9537; P9612; A4216; J2805

== ENCOUNTER 2023-08-26 18:24 | Inpatient (IN) | payer MEDICARE, BC, SELFPAY ==
[2023-08-26] VITALS (24 sets, daily range): BP systolic 93–111; BP diastolic 44–66; PULSE 70; RESP 12–26; TEMP 36.1–36.7; O2SAT 95–100; BMI 37.5
--- NOTE | 2023-08-26 19:23 | EKG12_ITS ---
Test Reason : DYSRHYTHMIA Blood Pressure : / mmHG Vent. Rate : 070 BPM Atrial Rate : 144 BPM P-R Int : 000 ms QRS Dur : 170 ms QT Int : 516 ms P-R-T Axes : 000 -66 090 degrees QTc Int : 557 ms Ventricular-paced rhythm Abnormal ECG Confirmed by JORDIN DUNCAN, SYBIL ([id number]), technical writer and editor LILIA BATRES ([id number]) on 08/27/2023 9:16:07 AM Referred By: Confirmed By:SYBIL BRENNER MD
--- NOTE | 2023-08-26 19:23 | CT_ITS ---
STUDY: CT BRAIN WITHOUT CONTRAST REASON FOR EXAM: Male, 83 years old. Stroke RADIATION DOSAGE (If Supplied By Facility): CTDIvol = ( 44.99 ) mGy, DLP = ( 829.85 ) mGycm TECHNIQUE: Transaxial CT imaging of the brain was performed without administration of intravenous contrast material. Individualized dose optimization techniques were used for this CT. COMPARISON: 08/20/2023. FINDINGS: Normal soft tissue structures. Normal calvarium. There is mild cerebral atrophy with widening of the extra-axial spaces and ventricular dilatation. Normal white matter tracts of the cerebral hemispheres. Normal basal ganglia and thalami. Normal brainstem. Normal cerebellum. There is no intracranial hemorrhage. There are no findings of an acute ischemic infarction. Normal visualized paranasal sinuses. CT/Brain/Head without Contrast IMPRESSION: Chronic changes as described with no acute intracranial hemorrhage or space-occupying lesion. Electronically Signed: Danni Alvarado MD at 20:14 EST ,
--- NOTE | 2023-08-26 19:23 | EX.ED.DYSGE1 ---
HPI History of Present Illness Chief Complaint: Fall Informant: patient and family Onset/Context/Timing Onset: Today Context: Gradual Onset Timing: Continuous Quality: Weakness Location: Generalized Worsened by: Nothing Relieved by: Nothing Narrative Narrative: Patient presents with generalized weakness that became worse today. Patient states he is having difficulty ambulating at home. Patient states he normally uses a rollator to help him ambulate. Patient states that he is having difficulty moving his legs due to weakness. Patient was recently admitted to the hospital and was discharged 3 days ago. Daughter states that the patient has had some confusion recently. Daughter also noted that the patient appeared somewhat jaundiced. Patient states his left leg seems to be weaker than his right. Patient denies any back pain. During his hospitalization, patient had an upper endoscopy which showed peptic ulcer disease and bleeding ulcers. 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 [facility] Medical History (HFpEF) heart failure with preserved ejection fraction (12/12/20) Acute dyspnea Acute on chronic diastolic HF (heart failure) Acute respiratory failure with hypoxia Anemia Anemia of chronic renal failure, stage 3 (moderate) Anxiety and depression Atherosclerotic heart disease of [place] coronary artery without angina pectoris Atrial flutter Atrial flutter Atypical chest pain Back pain BMI 34.0-34.9,adult BPH (benign prostatic hyperplasia) BPPV (benign paroxysmal positional vertigo) Bradycardia Cardiac dysrhythmia Cardiology follow-up encounter CHF (congestive heart failure) CHF (congestive heart failure) CHF (congestive heart failure) Chronic anticoagulation De Quervain's tenosynovitis Debility Depression Dermatitis Diabetes mellitus Diabetic kidney disease Dizziness DM type 2 with diabetic peripheral neuropathy DVT (deep venous thrombosis) Dyslipidemia Dysphagia Essential (primary) hypertension Fall Flu vaccine need Fracture of great toe Gastric reflux Generalized weakness Gout Gout flare Health care maintenance History of echocardiogram History of edema History of GI bleed History of peptic ulcer History of renal calculi History of ulceration HLD (hyperlipidemia) Hyperkalemia Injury of head and neck Iron deficiency anemia Iron deficiency anemia due to chronic blood loss Kidney hematoma (12/08/20) Left knee pain Left leg DVT Loss of equilibrium Low iron Malaise Near syncope Orthostatic hypotension MACHELLE (obstructive sleep apnea) Pain of left lower extremity Paroxysmal atrial fibrillation Paroxysmal atrial flutter Pneumonia Polypharmacy 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 Presence of cardiac pacemaker Prostate disease Psoriasis Recurrent syncope (06/19/22) Renal calculi RLS (restless legs syndrome) Sex disorder Sick sinus syndrome Suicidal ideation SVT (supraventricular tachycardia) TIA (transient ischemic attack) Toe pain, left Type 2 diabetes mellitus with diabetic polyneuropathy Urolithiasis Venous insufficiency of both lower extremities Vertigo Walker as ambulation aid Weakness Wears glasses Home Medications finasteride 5 mg tablet 5 mg PO DAILY PROSTATE #90 tabs 11/03/18 [Rx Last Taken 08/26/23] ergocalciferol (vitamin D2) 1,250 mcg (50,000 unit) capsule 50,000 unit PO QMONTH SUPPLEMENT #14 caps 11/29/22 [Rx Last Taken 08/19/23] nitroglycerin 0.4 mg sublingual tablet 0.4 mg sublingual Q5M PRN Cardiac/Chest Pain 30 days #30 tabs 12/03/22 [Rx Last Taken Unknown] metoprolol succinate 25 mg tablet,extended release 24 hr 25 mg PO DAILY BLOOD PRESSURE 12/07/22 [History Last Taken 08/26/23] furosemide 40 mg tablet (Lasix) 60 mg (1.5 x 40 mg) PO DAILY EDEMA #45 tabs 12/24/22 [Rx Last Taken 08/26/23] apixaban 2.5 mg tablet (Eliquis) 2.5 mg PO BID BLOOD THINNER #180 tabs 12/25/22 [Rx Last Taken 08/26/23] atorvastatin 10 mg tablet 10 mg PO QHS CHOLESTEROL #90 tabs 12/25/22 [Rx Last Taken 08/25/23] pen needle, diabetic 31 gauge x 3/16 (BD Ultra-Fine Mini Pen Needle) #100 ea 12/30/22 [Rx Last Taken Unknown] amiodarone 200 mg tablet 200 mg PO DAILY HEART #90 tabs 01/02/23 [Rx Last Taken 08/26/23] hydralazine 50 mg tablet 50 mg PO TID BLOOD PRESSURE 02/04/23 [History Last Taken 08/26/23] pramipexole 1 mg tablet (Mirapex) 2 mg (2 x 1 mg) PO QHS RESTLESS LEG SYNDROME #180 tabs 02/04/23 [Rx Last Taken 08/25/23] sertraline 25 mg tablet 25 mg PO DAILY DEPRESSION 06/20/23 [History Last Taken 08/26/23] fluticasone propionate 50 mcg/actuation nasal spray,suspension 2 spray intranasal DAILY NASAL CONGESTION #16 grams 06/24/23 [Rx Last Taken 08/25/23] progesterone micronized 100 mg capsule 100 mg PO QAM HORMONE REPLACEMENT #90 caps 07/03/23 [Rx Last Taken 08/25/23] lancets 30 gauge (OneTouch Delica Plus Lancet) #100 ea 07/22/23 [Rx Last Taken Unknown] walker (Ultra-Light Rollator misc) #1 ea 08/13/23 [Rx Last Taken Unknown] famotidine 40 mg tablet 40 mg PO DAILY ACID REFLUX #30 tabs 08/15/23 [Rx Last Taken 08/26/23] ferrous sulfate 325 mg (65 mg iron) tablet 325 mg PO TH supplement #90 tabs 08/15/23 [Rx Last Taken 08/21/23] dulaglutide 4.5 mg/0.5 mL subcutaneous pen injector 4.5 mg subcut FR DIABETES 08/20/23 [History Last Taken 08/22/23] insulin glargine-yfgn 100 unit/mL (3 mL) subcutaneous pen (Semglee (insulin glargine-yfgn) Pen) 32 unit subcut DAILY DIABETES 08/20/23 [History Last Taken 08/26/23] pantoprazole 40 mg tablet,delayed release (Protonix) 40 mg PO DAILY #60 tabs 08/23/23 [Rx Last Taken 08/26/23] rifaximin 550 mg tablet (Xifaxan) 550 mg PO BID 60 days #120 tabs 08/23/23 [Rx Last Taken 08/26/23] meclizine 25 mg tablet 25 mg PO Q8H PRN dizziness 08/26/23 [History Last Taken Unknown] Allergy/AdvReac Type Severity Reaction Status Date / Time hydrocodone bitartrate AdvReac Severe Other Verified 08/26/23 18:30 [From Vicodin] hydroxyzine AdvReac Severe Other Verified 08/26/23 18:30 doxycycline AdvReac Intermediate Shortness Verified 08/26/23 18:30 of breath (had CHF also, may not be true allergy Family History Father Diabetes Hypertension Cancer Lung cancer Mother Hypertension CVA (cerebral vascular accident) Sister Diabetes Son Diabetes Surgical History History of cardioversion (2015) History of cataract surgery History of left heart catheterization (02/16/13) History of lithotripsy (11/2020) History of loop recorder (06/26/22) History of radiofrequency ablation procedure for cardiac arrhythmia (02/05/06) history of right knee cap fracture History of right knee surgery Status post laser lithotripsy of ureteral calculus Status post left foot surgery STENT PLACEMENT FOR KIDNEY STONE Social History household members: spouse housing: house Smoking Status: Never smoker how long ago did patient quit smokin second hand exposure: No alcohol intake: never substance use type: does not use caffeine: No what type of physical activity do you participate in: none seatbelt use: always do you feel safe at home: Yes ROS ROS ED Constitutional Constitutional ED: Denies chills or fever(s) Eyes Eyes: Denies blurry vision or change in vision ENT ENT ED: Denies rhinorrhea or sore throat Cardiovascular Cardiovascular: Denies chest pain or palpitations Respiratory/Chest Respiratory/Chest: Denies cough or dyspnea Gastrointestinal Gastrointestinal: Denies nausea or vomiting Genitourinary Genitourinary ED: Denies dysuria or hematuria Musculoskeletal Musculoskeletal: Denies back pain or neck pain Integumentary Reports rash; Denies abscess Neurologic Neurologic: Reports weakness; Denies headache(s) Allergic/Immunologic Allergic/Immunologic ED: Denies mouth swelling or urticaria EXAM Physical Exam Const Vital Signs: 08/26/23 18:30 08/26/23 18:35 08/26/23 18:37 Temperature 97.0 F L Temperature Source Temporal Pulse Rate 70 Respiratory Rate 12 Respiratory Effort Normal Normal Respiratory Depth Normal Respiratory Pattern Normal Normal Blood Pressure 100/44 L Blood Pressure Mean 62 Pulse Ox 96 Oxygen Delivery Method Room Air Room Air 08/26/23 19:04 Temperature Temperature Source Pulse Rate 70 Respiratory Rate 18 Respiratory Effort Respiratory Depth Respiratory Pattern Blood Pressure 95/47 L Blood Pressure Mean 63 Pulse Ox 95 Oxygen Delivery Method Room Air Positive well nourished and well developed General Appearance ED: well developed and NAD HEENT Reports moist mucous membranes Neck supple and no JVD Resp normal respiratory effort and clear to auscultation bilaterally Cardio regular rate and regular rhythm GI non-tender and non-distended Palpation: soft Extremity normal to inspection Neuro CN's II-XII intact bilaterally and no sensory deficits noted Sensorium / Orientation: alert Motor Exam: strength 5/5 throughout Psych mental status grossly normal Skin General Skin Exam: jaundice MDM MDM MDM Narrative Medical decision making narrative: Differential diagnosis includes sepsis, encephalopathy, electrolyte abnormality, acute kidney injury, stroke, cardiac dysrhythmia, cardiac ischemia, pancreatitis, and urinary tract infection. CT scan of the brain will be obtained to assess for stroke and intracranial bleeding. Chest x-ray will be obtained to assess for pneumonia. EKG will be obtained to assess for cardiac dysrhythmia and cardiac ischemia. COVID-19 PCR will be obtained to assess for COVID-19 infection. Influenza PCR will be obtained to assess for influenza infection. RSV PCR will be obtained to assess for RSV infection. CBC will be obtained to assess for leukocytosis and anemia. Comprehensive metabolic profile will be obtained to assess for electrolyte abnormality, renal function, and hepatic function. Urinalysis will be obtained to assess for urinary tract infection and hematuria. Serum lactate will be obtained to assess for sepsis. Ammonia level will be obtained to assess for hepatic encephalopathy. Lipase will be obtained to assess for pancreatitis. PT with INR and PTT will be obtained to assess for coagulopathy. Lab Data Attestation: I reviewed the patient's lab results. Lab results narrative: CBC was reviewed. White blood cell count was slightly low at 3.7. There is a mild anemia with hemoglobin 9.3 hematocrit 28.6. This is stable compared to previous results. Platelet count was slightly low at 132. PT was INR and PTT were reviewed. Pro time was 18.2 and INR is 1.5. PTT was slightly elevated at 46.1. Comprehensive metabolic profile was reviewed. BUN was 54 and creatinine was 2.96. These are increased from previous results. Total bilirubin was elevated at 1.9. This is consistent with prior results. Alkaline phosphatase was 282. This was unchanged compared to previous results. Lipase was only slightly elevated at 94. Urinalysis was reviewed. There is no evidence of urinary tract infection or hematuria. Serum lactate was reviewed and was elevated at 3.3. Initial high-sensitivity troponin was reviewed and was normal at 62. COVID-19 PCR was reviewed and was negative. Influenza A and influenza B PCR results were reviewed and were negative. RSV PCR was reviewed and was negative. Serum ammonia level was reviewed and was elevated at 96. Labs: Laboratory Results - last 24 hr 08/26/23 08/26/23 08/26/23 17:02 19:10 19:34 WBC 3.7 L RBC 3.06 L Hgb 9.3 L Hct 28.6 L MCV 93.5 MCH 30.4 MCHC 32.5 RDW Std Deviation 56.3 H RDW Coeff of Flavio 16.8 H Plt Count 132 L MPV 9.6 Immature Gran % (Auto) 0.300 Neut % (Auto) 69.6 Lymph % (Auto) 13.0 L [place] % (Auto) 14.1 H Eos % (Auto) 1.9 Baso % (Auto) 1.1 H Absolute Neuts (auto) 2.6 Absolute Lymphs (auto) 0.48 L Nucleated RBC % 0 Differential Comment SCANNED PT 18.2 H INR 1.5 APTT 46.1 H Sodium 139 Potassium 4.4 Chloride 112 H Carbon Dioxide 17.0 L Anion Gap 10 BUN 54 H Creatinine 2.96 H Estim Creat Clear Calc 25.44 Est GFR (MDRD) Af Amer 26 L Est GFR (MDRD) Non-Af 22 L BUN/Creatinine Ratio 18.2 Glucose 246 H Lactic Acid Calcium 8.8 Total Bilirubin 1.90 H AST 66 H ALT 43 Alkaline Phosphatase 282 H Ammonia 96.0 H Troponin I High Sens 62 Total Protein 6.6 Albumin 2.2 L Globulin 4.4 H Albumin/Globulin Ratio 0.5 L Lipase 94 H Urine Color Yellow Urine Clarity Clear Urine pH 5.0 Ur Specific [place] 1.020 Urine Protein 30 H Urine Glucose (UA) Normal Urine Ketones Negative Urine Occult Blood Negative Urine Nitrite Negative Urine Bilirubin 1 H Urine Urobilinogen 1 H Ur Leukocyte Esterase 25 H Urine RBC 0 SEEN Urine WBC 0-5 SEEN Ur Squamous Epith Cells 0 SEEN Urine Bacteria RARE Hyaline Casts 5-10 SEEN Urine Mucus 0 SEEN POC Glucose 219 H 08/26/23 19:50 WBC RBC Hgb Hct MCV MCH MCHC RDW Std Deviation RDW Coeff of Flavio Plt Count MPV Immature Gran % (Auto) Neut % (Auto) Lymph % (Auto) [place] % (Auto) Eos % (Auto) Baso % (Auto) Absolute Neuts (auto) Absolute Lymphs (auto) Nucleated RBC % Differential Comment PT INR APTT Sodium Potassium Chloride Carbon Dioxide Anion Gap BUN Creatinine Estim Creat Clear Calc Est GFR (MDRD) Af Amer Est GFR (MDRD) Non-Af BUN/Creatinine Ratio Glucose Lactic Acid 3.3 H* Calcium Total Bilirubin AST ALT Alkaline Phosphatase Ammonia Troponin I High Sens Total Protein Albumin Globulin Albumin/Globulin Ratio Lipase Urine Color Urine Clarity Urine pH Ur Specific [place] Urine Protein Urine Glucose (UA) Urine Ketones Urine Occult Blood Urine Nitrite Urine Bilirubin Urine Urobilinogen Ur Leukocyte Esterase Urine RBC Urine WBC Ur Squamous Epith Cells Urine Bacteria Hyaline Casts Urine Mucus POC Glucose Radiography Diagnostic Testing: Clinical Impression(s) from Imaging Studies Brain CT 08/26/23 19:23 IMPRESSION: Chronic changes as described with no acute intracranial hemorrhage or space-occupying lesion. Electronically Signed: Danni Alvarado MD at 20:14 EST , Chest X-Ray 08/26/23 20:00 IMPRESSION: No acute cardiopulmonary disease. Electronically Signed: Danni Alvarado MD at 20:15 EST , Portable 1 view chest x-ray was obtained. On my independent interpretation, lung shah are clear. There is normal cardiac silhouette. Bony thorax is normal. There is no acute process noted. Radiologist also interpreted the x-ray and agrees. CT scan of the brain was obtained. There is no acute intracranial abnormality. There are chronic changes noted. This was interpreted by the radiologist and was also independently reviewed by myself. EKG Initial EKG: Attestation: I personally reviewed and interpreted this EKG as follows: Interpretation: Paced (70), LBBB and Non-Specific ST Changes Comments: EKG was obtained. On my independent interpretation, shows a ventricular paced rhythm with a rate of 70. QRS interval was prolonged at 170 ms. QTc interval was slightly prolonged at 557 ms. There is left axis deviation at -66. There is a left bundle branch block pattern noted. Prior EKG tracings: available for review Prior: Unchanged (08/22/2023) Management Discussion w/another healthcare provider: Hospitalist Treatment and Re-Evaluation :: Patient was given IV fluids. Because of the elevated lactic acid, blood culture and urine culture was obtained. Since there is no source for infection, I did not start antibiotics. Patient was given a dose of lactulose here in the emergency department. Case was discussed with the hospitalist. She will admit the patient to her service. Patient understood and was agreeable with the plan. All questions were answered. Discharge Plan Triage Chief Complaint: Fall Other Complaint: Weakness ED Provider: Jonathan Farrell Dx/Rx/DC Orders Clinical Impression: Hepatic encephalopathy, Debility, HORACE (acute kidney injury), Anemia Prescriptions: No Action pramipexole [Mirapex] 1 mg tablet 2 mg PO QHS Qty: 180 3RF nitroglycerin 0.4 mg Tablet, Sublingual 0.4 mg sublingual Q5M PRN (Reason: Cardiac/Chest Pain) 30 Days Qty: 30 0RF metoprolol succinate 25 mg tablet extended release 24 hr 25 mg PO DAILY hydralazine 50 mg tablet 50 mg PO TID sertraline 25 mg tablet 25 mg PO DAILY furosemide [Lasix] 40 mg tablet 60 mg PO DAILY Qty: 45 0RF dulaglutide 4.5 mg/0.5 mL pen injector 4.5 mg SC FR insulin glargine-yfgn [Semglee(insulin glarg-yfgn)Pen] 100 unit/mL (3 mL) insulin pen 32 unit SUBCUT DAILY Xifaxan 550 mg Tablet 550 mg PO BID 60 Days Qty: 120 0RF pantoprazole [Protonix] 40 mg tablet,delayed release (DR/EC) 40 mg PO DAILY Qty: 60 0RF meclizine 25 mg tablet 25 mg PO Q8H PRN (Reason: dizziness) finasteride 5 mg tablet 5 mg PO DAILY Qty: 90 3RF ergocalciferol (vitamin D2) 1,250 mcg (50,000 unit) capsule 50,000 unit PO QMONTH Qty: 14 1RF Eliquis 2.5 mg tablet 2.5 mg PO BID Qty: 180 3RF atorvastatin 10 mg tablet 10 mg PO QHS Qty: 90 3RF (DME) pen needle, diabetic [BD Ultra-Fine Mini Pen Needle] 31 gauge x 3/16 needle See Rx Instructions .Route Qty: 100 4RF Rx Instructions: As directed amiodarone 200 mg tablet 200 mg PO DAILY Qty: 90 3RF fluticasone propionate 50 mcg/actuation spray,suspension 2 spray intranasal DAILY Qty: 16 3RF Hold Instructions: MD Ordered Patient Comments: PT STATES HE USES AT NIGHT progesterone micronized 100 mg capsule 100 mg PO QAM Qty: 90 3RF (DME) lancets [OneTouch Delica Plus Lancet] 30 gauge misc See Rx Instructions .Route Qty: 100 4RF Rx Instructions: As directed; Check BG 2-3 times daily for DMII (DME) Ultra-Light Rollator Misc See Rx Instructions .Route Qty: 1 0RF Rx Instructions: As directed famotidine 40 mg tablet 40 mg PO DAILY Qty: 30 1RF ferrous sulfate 325 mg (65 mg iron) tablet 325 mg PO Qty: 90 1RF Rx Instructions: only Primary Care Provider: Tosha Shrestha Referrals: Tosha Shrestha MD [Primary Care Provider] - Disposition Disposition: Acute Care Hospital [facility]
[2023-08-26 19:31] LABS: Bedside Glucose 219 mg/dL (74-106)
[2023-08-26 19:40] LABS: Absolute Lymphocyte Count 0.48 X10^3/uL (0.83-4.51); Absolute Neutrophil Count 2.6 X10^3/uL (2.0-7.7); Basophil# 0.04 X10^3/uL; Basophil% 1.1 % (0-1); Eosinophil# 0.07 X10^3/uL; Eosinophils% 1.9 % (0-5); Hematocrit 28.6 % (40-54); Hemoglobin 9.3 g/dL (13.0-16.5); Lymphocyte # 0.48 X10^3/ul (0.83-4.51); Mean Corp Hgb Conc 32.5 g/dL (32-36); Mean Corpuscular Hgb 30.4 pg (27.0-32.0); Mean Corpuscular Volume 93.5 fL (80-94); Mean Platelet Vol. 9.6 fl (6.2-12.0); Monocyte# 0.52 X10^3/uL; Monocyte% 14.1 % (0-10); NRBC Flagged by Analyzer 0 % (0-5); Neutrophil # 2.58 X10^3/uL (2.7-7.7); Neutrophil % 69.6 % (47-70); POSITIVE DIFFERENTIAL YES; Platelet Count 132 K/mm3 (150-450); RBC Distribution Width CV 16.8 % (11.6-14.6); RBC Distribution Width SD 56.3 fl (35.1-43.9); Red Blood Count 3.06 M/mm3 (4.6-6.2); White Blood Count 3.7 K/mm3 (4.4-11.0)
[2023-08-26 19:43] LABS: Differential Indicated SCAN CRITERIA MET
[2023-08-26 19:44] LABS: International Normalized Ratio 1.5; Prothrombin Time (Protime)PT. 18.2 SECONDS (11.7-14.9)
[2023-08-26 19:45] LABS: Partial Thromboplast Time 46.1 Seconds (24.1-36.2)
[2023-08-26] MEDS: 0.9% Normal Saline (500mL Bag) 500 ML 999 ML IV (19:45)
[2023-08-26 19:55] LABS: ALB/GLOB Ratio 0.5 RATIO (0.9-2.4); AST(SGOT) 66 U/L (15-37); Alanine Aminotransfer ALT/SGPT 43 U/L (16-61); Albumin, Serum 2.2 g/dL (3.2-5.0); Alkaline Phosphatase 282 U/L (45-117); Anion Gap 10 (5-15); BUN 54 mg/dL (7-18); BUN/Creat Ratio 18.2 RATIO (10-20); Calcium,Total 8.8 mg/dL (8.5-10.1); Chloride 112 mmol/L (98-107); Creatinine, Serum 2.96 mg/dL (0.70-1.30); EST Glomerular Filtration Rate 22 mL/min (>60); Est Glom Filt Rate - Afr Amer 26 mL/min (>60); Estimated Creatinine Clearance 25.44 ml/min; Globulin 4.4 g/dL (2.2-4.2); Glucose 246 mg/dL (74-106); Lipase 94 U/L (13-75); Potassium 4.4 mmol/L (3.5-5.1); Protein, Total 6.6 g/dL (6.4-8.2); Sodium Level 139 mmol/L (136-145); Troponin-I HS (w/2H Reflex) 62 pg/mL (3.0-78.0)
--- OUTSIDE RECORDS SUMMARY | 2023-08-26 19:59 | XMS RPT_ITS | CCD ---
Author Name Unknown Address [address] [place] [id number] [place] [address] Organization [facility] Results Test Name Value Interpretation Reference Range Facil ity
[2023-08-26] MEDS: 0.9% Normal Saline (1000mL) 1,000 ML 1000 ML IV (20:00)
--- NOTE | 2023-08-26 20:00 | RAD_ITS ---
STUDY: X-RAY CHEST REASON FOR EXAM: Male, 83 years old. Weakness TECHNIQUE: Single AP portable view of the chest. COMPARISON: 08/20/2023. FINDINGS: There is a left-sided pacemaker in place. Lungs are underexpanded with mild vascular crowding, otherwise clear. There is no demonstrated pleural abnormality. Normal size heart. Normal mediastinum and lakhwinder. Normal visualized pulmonary arteries. There is atherosclerotic calcification of the aortic arch with tortuosity. There are diffuse degenerative changes of the visualized thoracic spine. There is degenerative osteoarthritis of the bilateral shoulders. There is no demonstrated abnormality of the visualized soft tissue structures of the upper abdomen. RAD/Chest 1 View (Portable) IMPRESSION: No acute cardiopulmonary disease. Electronically Signed: Danni Alvarado MD at 20:15 EST ,
[2023-08-26 20:02] LABS: Differential Comment SCANNED
[2023-08-26 20:07] LABS: Mucous, Urine 0 SEEN /hpf (<or=2+); Red Blood Cells-Urine 0 SEEN /hpf (0-5); Squamous Epithelial Cells - UA 0 SEEN /hpf (0-5)
[2023-08-26 20:32] LABS: Color, Urine Yellow (Yellow); Glucose, Dipstick Normal (Normal); Ketone-Dipstick Negative (Negative); Leukocyte Esterase-Dipstick 25 /ul (Negative); Nitrite-Dipstick Negative (Negative); Occult Blood-Urine Negative /ul (Negative); Protein-Dipstick 30 mg/dl (Negative); Urine Clarity Clear (Clear); Urine Urobilinogen 1 mg/dl (Normal)
[2023-08-26 20:35] LABS: Urine Bilirubin Dipstick 1 mg/dL (Negative)
[2023-08-26] MEDS: Lactulose 20 GM/30 ML UDC PO (20:39)
[2023-08-26 20:44] LABS: Lactic Acid 3.3 mmol/L (0.4-1.9)
[2023-08-26 20:53] LABS: Bacteria RARE /hpf (None Seen); Hyaline Cast 5-10 SEEN /lpf (0-5); White Blood Cells 0-5 SEEN /hpf (0-5)
[2023-08-26 21:32] LABS: Reflex Troponin-HS? (from REC) Y
--- NOTE | 2023-08-26 21:45 | PCM.HP.STD ---
HPI - General General Date of Admission: 08/26/23 Date of Service: 08/26/23 Chief Complaint: weakness and debility HPI Narrative MARY SAN, is a 83 M with a PMH as outlined who presents via the ED on 08/26/2022 with a complaint of weakness, debility and mechanical fall. He was recently discharged only 3 days prior to this admission after he was managed for acute encephalopathy due to liver disease, and acute on chronic anemia due to bleeding angiodysplastic lesions. He went home and was noted to be much weaker and lethargic today. Daughter says patient's was admitted to the hospital today; patient's daughter went home to get something for patient's and found patient weak and lethargic, leaning against the kitchen sink. He was also a bit confused. He denied any fever, chills, palpitations, dizziness, nausea or vomiting. Review of systems is otherwise negative. Vitals in the ED were BP of 94/47, UT of 70, RR of 18, and he was saturating at 95% on room air. CBC showed Hb of 9.3, wbc of 3.7 and platelets of 132. INR is 1.5. Chenistry showed sodium of 139, bicarb of 17 and Cr of 2.96. lactic acid was also mildly elevated at 3.3 and total bilirubin was 1.9. was mildly elevated at 66, with ALP of 282; ALT was WNL. Ammonia level was 96. Respiratory panel. was negative for covid and influenza as well as RSV.Urinalysis showed no evidence of UTI. CT brain showed no acute intracranial pathology. CXR showed no acute cardiopulmonary disease. He is being admitted to be managed for weakness and debility likely due to acute hepatic encephalopathy as well as HORACE on CKD. [facility] Medical History (HFpEF) heart failure with preserved ejection fraction (12/12/20) Acute dyspnea Acute on chronic diastolic HF (heart failure) Acute respiratory failure with hypoxia Anemia Anemia of chronic renal failure, stage 3 (moderate) Anxiety and depression Atherosclerotic heart disease of [place] coronary artery without angina pectoris Atrial flutter Atrial flutter Atypical chest pain Back pain BMI 34.0-34.9,adult BPH (benign prostatic hyperplasia) BPPV (benign paroxysmal positional vertigo) Bradycardia Cardiac dysrhythmia Cardiology follow-up encounter CHF (congestive heart failure) CHF (congestive heart failure) CHF (congestive heart failure) Chronic anticoagulation De Quervain's tenosynovitis Debility Depression Dermatitis Diabetes mellitus Diabetic kidney disease Dizziness DM type 2 with diabetic peripheral neuropathy DVT (deep venous thrombosis) Dyslipidemia Dysphagia Essential (primary) hypertension Fall Flu vaccine need Fracture of great toe Gastric reflux Generalized weakness Gout Gout flare Health care maintenance History of echocardiogram History of edema History of GI bleed History of peptic ulcer History of renal calculi History of ulceration HLD (hyperlipidemia) Hyperkalemia Injury of head and neck Iron deficiency anemia Iron deficiency anemia due to chronic blood loss Kidney hematoma (12/08/20) Left knee pain Left leg DVT Loss of equilibrium Low iron Malaise Near syncope Orthostatic hypotension MACHELLE (obstructive sleep apnea) Pain of left lower extremity Paroxysmal atrial fibrillation Paroxysmal atrial flutter Pneumonia Polypharmacy 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 Presence of cardiac pacemaker Prostate disease Psoriasis Recurrent syncope (06/19/22) Renal calculi RLS (restless legs syndrome) Sex disorder Sick sinus syndrome Suicidal ideation SVT (supraventricular tachycardia) TIA (transient ischemic attack) Toe pain, left Type 2 diabetes mellitus with diabetic polyneuropathy Urolithiasis Venous insufficiency of both lower extremities Vertigo Walker as ambulation aid Weakness Wears glasses Home Medications finasteride 5 mg tablet 5 mg PO DAILY PROSTATE #90 tabs 11/03/18 [Rx Last Taken 08/26/23] ergocalciferol (vitamin D2) 1,250 mcg (50,000 unit) capsule 50,000 unit PO QMONTH SUPPLEMENT #14 caps 11/29/22 [Rx Last Taken 08/19/23] nitroglycerin 0.4 mg sublingual tablet 0.4 mg sublingual Q5M PRN Cardiac/Chest Pain 30 days #30 tabs 12/03/22 [Rx Last Taken Unknown] metoprolol succinate 25 mg tablet,extended release 24 hr 25 mg PO DAILY BLOOD PRESSURE 12/07/22 [History Last Taken 08/26/23] furosemide 40 mg tablet (Lasix) 60 mg (1.5 x 40 mg) PO DAILY EDEMA #45 tabs 12/24/22 [Rx Last Taken 08/26/23] apixaban 2.5 mg tablet (Eliquis) 2.5 mg PO BID BLOOD THINNER #180 tabs 12/25/22 [Rx Last Taken 08/26/23] atorvastatin 10 mg tablet 10 mg PO QHS CHOLESTEROL #90 tabs 12/25/22 [Rx Last Taken 08/25/23] pen needle, diabetic 31 gauge x 3/16 (BD Ultra-Fine Mini Pen Needle) #100 ea 12/30/22 [Rx Last Taken Unknown] amiodarone 200 mg tablet 200 mg PO DAILY HEART #90 tabs 01/02/23 [Rx Last Taken 08/26/23] hydralazine 50 mg tablet 50 mg PO TID BLOOD PRESSURE 02/04/23 [History Last Taken 08/26/23] pramipexole 1 mg tablet (Mirapex) 2 mg (2 x 1 mg) PO QHS RESTLESS LEG SYNDROME #180 tabs 02/04/23 [Rx Last Taken 08/25/23] sertraline 25 mg tablet 25 mg PO DAILY DEPRESSION 02/04/23 [History Last Taken 08/26/23] fluticasone propionate 50 mcg/actuation nasal spray,suspension 2 spray intranasal DAILY NASAL CONGESTION #16 grams 06/24/23 [Rx Last Taken 08/25/23] progesterone micronized 100 mg capsule 100 mg PO QAM HORMONE REPLACEMENT #90 caps 07/03/23 [Rx Last Taken 08/25/23] lancets 30 gauge (OneTouch Delica Plus Lancet) #100 ea 07/22/23 [Rx Last Taken Unknown] fanny (Ultra-Light Rollator misc) #1 ea 08/13/23 [Rx Last Taken Unknown] famotidine 40 mg tablet 40 mg PO DAILY ACID REFLUX #30 tabs 08/15/23 [Rx Last Taken 08/26/23] ferrous sulfate 325 mg (65 mg iron) tablet 325 mg PO TH supplement #90 tabs 08/15/23 [Rx Last Taken 08/21/23] dulaglutide 4.5 mg/0.5 mL subcutaneous pen injector 4.5 mg subcut FR DIABETES 08/20/23 [History Last Taken 08/22/23] insulin glargine-yfgn 100 unit/mL (3 mL) subcutaneous pen (Semglee (insulin glargine-yfgn) Pen) 32 unit subcut DAILY DIABETES 08/20/23 [History Last Taken 08/26/23] pantoprazole 40 mg tablet,delayed release (Protonix) 40 mg PO DAILY #60 tabs 08/23/23 [Rx Last Taken 08/26/23] rifaximin 550 mg tablet (Xifaxan) 550 mg PO BID 60 days #120 tabs 08/23/23 [Rx Last Taken 08/26/23] meclizine 25 mg tablet 25 mg PO Q8H PRN dizziness 08/26/23 [History Last Taken Unknown] Allergy/AdvReac Type Severity Reaction Status Date / Time hydrocodone bitartrate AdvReac Severe Other Verified 08/26/23 18:30 [From Vicodin] hydroxyzine AdvReac Severe Other Verified 08/26/23 18:30 doxycycline AdvReac Intermediate Shortness Verified 08/26/23 18:30 of breath (had CHF also, may not be true allergy Family History Father Diabetes Hypertension Cancer Lung cancer Mother Hypertension CVA (cerebral vascular accident) Sister Diabetes Son Diabetes Surgical History History of cardioversion (2015) History of cataract surgery History of left heart catheterization (02/16/13) History of lithotripsy (11/2020) History of loop recorder (06/26/22) History of radiofrequency ablation procedure for cardiac arrhythmia (02/05/06) history of right knee cap fracture History of right knee surgery Status post laser lithotripsy of ureteral calculus Status post left foot surgery STENT PLACEMENT FOR KIDNEY STONE Social History household members: spouse housing: house Smoking Status: Never smoker how long ago did patient quit smokin second hand exposure: No alcohol intake: never substance use type: does not use caffeine: No what type of physical activity do you participate in: none seatbelt use: always do you feel safe at home: Yes ROS Constitutional Constitutional: Reports anorexia, fatigue, malaise and weakness; Denies change in weight, chills or fever(s) Eyes Eyes: Denies change in vision ENT HEENT: Denies dysphagia, headache(s) or sore throat Cardiovascular Cardiovascular: Denies chest pain, edema, orthopnea, palpitations or syncope Respiratory/Chest Respiratory/Chest: Denies cough, shortness of breath at rest, shortness of breath with exertion or wheezing Gastrointestinal Gastrointestinal: Denies constipation, diarrhea, nausea or vomiting Genitourinary Genitourinary: Denies dysuria, nocturia or urinary frequency Musculoskeletal Musculoskeletal: Denies extremity pain, joint pain, joint stiffness, joint swelling or muscle weakness Integumentary Integumentary: Reports jaundice Neurologic Neurologic: Reports confusion; Denies dizziness, focal weakness, headache(s), lack of coordination, numbness, seizures, sensory deficit, tingling or tremor(s) Psychiatric Psychiatric: Denies anxiety or depression Endocrine Endocrinology: Denies change in body appearance Vital Signs Vital Signs Vital Signs: 08/26/23 18:30 08/26/23 18:35 08/26/23 18:37 Temperature 97.0 F L Temperature Source Temporal Pulse Rate 70 Respiratory Rate 12 Respiratory Effort Normal Normal Respiratory Depth Normal Respiratory Pattern Normal Normal Blood Pressure 100/44 L Blood Pressure Mean 62 Pulse Ox 96 Oxygen Delivery Method Room Air Room Air 08/26/23 19:04 Temperature Temperature Source Pulse Rate 70 Respiratory Rate 18 Respiratory Effort Respiratory Depth Respiratory Pattern Blood Pressure 95/47 L Blood Pressure Mean 63 Pulse Ox 95 Oxygen Delivery Method Room Air Weight Weight: 276 lb 14.409 oz Body Mass Index (BMI) 37.5 Physical Exam Const alert and oriented x3 Constitutional Narrative: weak, frail General Appearance: cooperative Orientation / Consciousness: lethargic HEENT normocephalic and head/scalp atraumatic Mouth: dry mucous membranes Eyes PERRL and EOMs intact bilaterally Neck no lymphadenopathy and supple Lymph Lymphatic: no lymphadenopathy noted Resp normal respiratory effort, normal air movement and clear to auscultation bilaterally Cardio regular rate, regular rhythm, S1 normal heart sound, S2 normal heart sound and no murmurs GI normal to inspection, nondistended, normoactive bowel sounds, soft to palpation, non-tender and non-distended Extremity normal capillary refill, no clubbing, cyanosis or edema and no calf tenderness General Extremity: no tenderness to palpation of joints or extremities Skin General Skin Exam: no breakdown and turgor normal Neuro CN's II-XII intact bilaterally, no focal motor deficits and no sensory deficits noted Motor Exam: strength 5/5 throughout and general weakness Psych thought process normal Mood & Affect: flat affect Results Lab / Micro Data 08/27/23 06:00 08/27/23 06:00 Labs: Laboratory Results - last 24 hr 08/26/23 17:02: WBC 3.7 L, RBC 3.06 L, Hgb 9.3 L, Hct 28.6 L, MCV 93.5, MCH 30.4, MCHC 32.5, RDW Std Deviation 56.3 H, RDW Coeff of Flavio 16.8 H, Plt Count 132 L, MPV 9.6, Immature Gran % (Auto) 0.300, Neut % (Auto) 69.6, Lymph % (Auto) 13.0 L, Drew % (Auto) 14.1 H, Eos % (Auto) 1.9, Baso % (Auto) 1.1 H, Absolute Neuts (auto) 2.6, Absolute Lymphs (auto) 0.48 L, Nucleated RBC % 0, Differential Comment SCANNED, PT 18.2 H, INR 1.5, APTT 46.1 H, Sodium 139, Potassium 4.4, Chloride 112 H, Carbon Dioxide 17.0 L, Anion Gap 10, BUN 54 H, Creatinine 2.96 H, Estim Creat Clear Calc 25.44, Est GFR (MDRD) Af Amer 26 L, Est GFR (MDRD) Non-Af 22 L, BUN/Creatinine Ratio 18.2, Glucose 246 H, Calcium 8.8, Total Bilirubin 1.90 H, AST 66 H, ALT 43, Alkaline Phosphatase 282 H, Ammonia 96.0 H, Troponin I High Sens 62, Total Protein 6.6, Albumin 2.2 L, Globulin 4.4 H, Albumin/Globulin Ratio 0.5 L, Lipase 94 H 08/26/23 19:10: POC Glucose 219 H 08/26/23 19:34: Urine Color Yellow, Urine Clarity Clear, Urine pH 5.0, Ur Specific Bul[place] 1.020, Urine Protein 30 H, Urine Glucose (UA) Normal, Urine Ketones Negative, Urine Occult Blood Negative, Urine Nitrite Negative, Urine Bilirubin 1 H, Urine Urobilinogen 1 H, Ur Leukocyte Esterase 25 H, Urine RBC 0 SEEN, Urine WBC 0-5 SEEN, Ur Squamous Epith Cells 0 SEEN, Urine Bacteria RARE, Hyaline Casts 5-10 SEEN, Urine Mucus 0 SEEN 08/26/23 19:50: Lactic Acid 3.3 H* Micro: Microbiology 08/26/23 19:34 Mucosa - Nose SARS-CoV-2, Influenza & RSV (PCR) - Final Imagaing Radiology Impression Brain CT 08/26/23 19:23 IMPRESSION: Chronic changes as described with no acute intracranial hemorrhage or space-occupying lesion. Electronically Signed: Danni Alvarado MD at 20:14 EST Reading Location ID and State: [facility] / [place] , Service support , Chest X-Ray 08/26/23 20:00 IMPRESSION: No acute cardiopulmonary disease. 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 Will continue and titrate to maintain 2-3 loose stools daily trend liver enzymes on rifaximin #HORACE on CKD Cr is 2.96, with a baseline Cr of ~ 1.8 likely due to dehydration, and may also be due to hepatorenal syndrome hydrate very gently with iVF. If kidney function doesnt improve, consult nephrology #Lactic acidosis: lactic acid is 3.3. Likely due to impaired liver function. WIll hdyrate with fluids and monitor #Non anion gap metabolic acidosis bicarb is 16, with anion gap of 10. likely due to HORACE nad lactic acidosis should improve with hydration. Will monitor #History of anemia due ot GI bleed had recent EGD which shoed three bleeding angiodysplastic lesions in the stomach which was treated witha heater probe on protonix #HFpEF: has known EF of 65%. NOt in fluid overload. Will monitor #TYpe 2 diabetes mellitus: hold oral meds. Continue long acting insulin. ISS. Accuchecks ACHS #MACHELLE: on BIPAP qhs #Paroxysmal afib: EKG showed paced rhythm. On eliquis #S-A node disorder: s/p pacemaker insertion #Hypertension; on hydralazine and metoprolol #Restless leg syndrome: on mirapex #BPH: on finasteride #DVT prophylaxis; eliquis COde status: full code Patient counseled extensively about different types of CODE STATUS including full code, DNR CCA and DNR CCA. Patient elects to be full code. Total [id number] time 17 minutes. Total time spent on evaluation and management of patient, reviewing chart and discussing plan with patient, discussion with nursing and ancillary staff as well as documentation: 65 mins Charges/Coding Visit Charges Inpatient E&M: 20209 Init Hosp L2 Procedures Hospitalists Procedures: 03824 Advncd Care Plan 30 Min
[2023-08-26 22:22] LABS: Troponin-I HS 344 pg/mL (3.0-78.0)
[2023-08-26] MEDS: Aspirin 81 MG TAB.CHEW 324 MG PO (22:34)
--- OUTSIDE RECORDS SUMMARY | 2023-08-26 23:03 | XMS RPT_ITS | CCD ---
Author Name Unknown Address [address] [place] [address] Organization [facility] Results Test Name Value Interpretation [...] BE BASED ON THE PRIMARY CLINICAL RECORDS. [facility] [employer] provides no warranty or guarantee of the accuracy or completeness of information in this document.
[2023-08-27] VITALS (9 sets, daily range): BP systolic 110–135; BP diastolic 51–62; PULSE 70–72; RESP 16–20; TEMP 36.1–36.7; O2SAT 98–100
[2023-08-27] MEDS: 0.9% Normal Saline (1000mL) 1,000 ML 100 ML IV ×2 (00:26→11:38)
[2023-08-27 00:28] LABS: Reflex Lactate? Y
[2023-08-27 01:49] LABS: Lactic Acid 1.9 mmol/L (0.4-1.9)
[2023-08-27 06:10] LABS: Absolute Lymphocyte Count 0.73 X10^3/uL (0.83-4.51); Absolute Neutrophil Count 2.8 X10^3/uL (2.0-7.7); Basophil# 0.04 X10^3/uL; Basophil% 0.9 % (0-1); Eosinophil# 0.08 X10^3/uL; Eosinophils% 1.9 % (0-5); Hematocrit 26.9 % (40-54); Hemoglobin 8.3 g/dL (13.0-16.5); Lymphocyte # 0.73 X10^3/ul (0.83-4.51); Lymphocyte % 17.1 % (19-41); Mean Corp Hgb Conc 30.9 g/dL (32-36); Mean Corpuscular Hgb 29.4 pg (27.0-32.0); Mean Corpuscular Volume 95.4 fL (80-94); Mean Platelet Vol. 9.6 fl (6.2-12.0); Monocyte% 14.1 % (0-10); NRBC Flagged by Analyzer 0 % (0-5); Neutrophil # 2.78 X10^3/uL (2.7-7.7); Neutrophil % 65.1 % (47-70); Platelet Count 124 K/mm3 (150-450); RBC Distribution Width CV 16.7 % (11.6-14.6); RBC Distribution Width SD 57.9 fl (35.1-43.9); Red Blood Count 2.82 M/mm3 (4.6-6.2); White Blood Count 4.3 K/mm3 (4.4-11.0)
[2023-08-27] MEDS: hydrALAZINE 50 MG Tablet PO ×3 (06:29→20:18)
[2023-08-27] MEDS: Lactulose 20 GM/30 ML UDC PO ×3 (06:32→20:18)
[2023-08-27 06:56] LABS: ALB/GLOB Ratio 0.6 RATIO (0.9-2.4); AST(SGOT) 56 U/L (15-37); Alanine Aminotransfer ALT/SGPT 37 U/L (16-61); Albumin, Serum 2.1 g/dL (3.2-5.0); Alkaline Phosphatase 236 U/L (45-117); Anion Gap 7 (5-15); BUN 55 mg/dL (7-18); BUN/Creat Ratio 20.3 RATIO (10-20); Calcium,Total 8.1 mg/dL (8.5-10.1); Chloride 117 mmol/L (98-107); Creatinine, Serum 2.71 mg/dL (0.70-1.30); EST Glomerular Filtration Rate 24 mL/min (>60); Est Glom Filt Rate - Afr Amer 29 mL/min (>60); Estimated Creatinine Clearance 27.78 ml/min; Globulin 3.8 g/dL (2.2-4.2); Glucose 235 mg/dL (74-106); Potassium 4.5 mmol/L (3.5-5.1); Protein, Total 5.9 g/dL (6.4-8.2); Sodium Level 142 mmol/L (136-145)
[2023-08-27] MEDS: Metoprolol(XL)Succ 25 MG Tablet PO (10:17)
[2023-08-27] MEDS: Sertraline 50 MG Tablet 25 MG PO (10:17)
[2023-08-27] MEDS: rifAXIMin 550 MG Tablet PO ×2 (10:17→20:18)
[2023-08-27] MEDS: Finasteride 5 MG Tablet PO (10:17)
[2023-08-27] MEDS: APIXABAN 2.5 MG TABLET (WCH) PO ×2 (10:17→20:19)
[2023-08-27] MEDS: Pantoprazole Sodium 40 MG Tablet PO (10:18)
[2023-08-27] MEDS: Famotidine 20 MG Tablet PO (10:18)
[2023-08-27] MEDS: Fluticasone 0.05% 1 SPRAY NASAL.SRY 2 SPRAY NASAL (10:18)
--- NOTE | 2023-08-27 10:56 | PCM.PN.HOSP ---
Reason for Visit Reason for Visit: Patient is an 83-year-old gentleman admitted with was recently admitted for acute hepatic encephalopathy discharged home on lactulose. Patient apparently stopped taking his lactulose in view of persistent loose bowel movement. He however did experience therefore did call the EMS patient was found to be profoundly weak brought to the emergency department, found to have ammonia level of 96 admitted to monitored bed Objective Data Objective Data Vital Signs: Vital Signs Temp Pulse Resp BP Pulse Ox O2 Del Method 98 F 70 20 H 123/51 H 100 Room Air 08/27/23 06:33 08/27/23 10:17 08/27/23 06:33 08/27/23 06:33 08/27/23 06:33 08/27/23 06:33 Oxygen Delivery Method Room Air Weight: 125.6 kg Body Mass Index (BMI) 37.5 Intake & Output: Intake and Output for Last 24 Hours 08/25/23 08/26/23 08/27/23 23:59 23:59 23:59 Intake Total 1500 / 1500 240 / 240 Output Total 500 / 500 Balance 1500 / 1500 -260 / -260 Lab / Micro Data 08/27/23 06:00 08/27/23 06:00 Labs: Laboratory Results - last 24 hr 08/26/23 17:02: WBC 3.7 L, RBC 3.06 L, Hgb 9.3 L, Hct 28.6 L, MCV 93.5, MCH 30.4, MCHC 32.5, RDW Std Deviation 56.3 H, RDW Coeff of Flavio 16.8 H, Plt Count 132 L, MPV 9.6, Immature Gran % (Auto) 0.300, Neut % (Auto) 69.6, Lymph % (Auto) 13.0 L, Stewart % (Auto) 14.1 H, Eos % (Auto) 1.9, Baso % (Auto) 1.1 H, Absolute Neuts (auto) 2.6, Absolute Lymphs (auto) 0.48 L, Nucleated RBC % 0, Differential Comment SCANNED, PT 18.2 H, INR 1.5, APTT 46.1 H, Sodium 139, Potassium 4.4, Chloride 112 H, Carbon Dioxide 17.0 L, Anion Gap 10, BUN 54 H, Creatinine 2.96 H, Estim Creat Clear Calc 25.44, Est GFR (MDRD) Af Amer 26 L, Est GFR (MDRD) Non-Af 22 L, BUN/Creatinine Ratio 18.2, Glucose 246 H, Calcium 8.8, Total Bilirubin 1.90 H, AST 66 H, ALT 43, Alkaline Phosphatase 282 H, Ammonia 96.0 H, Troponin I High Sens 62, Total Protein 6.6, Albumin 2.2 L, Globulin 4.4 H, Albumin/Globulin Ratio 0.5 L, Lipase 94 H 08/26/23 19:10: POC Glucose 219 H 08/26/23 19:34: Urine Color Yellow, Urine Clarity Clear, Urine pH 5.0, Ur Specific [place] 1.020, Urine Protein 30 H, Urine Glucose (UA) Normal, Urine Ketones Negative, Urine Occult Blood Negative, Urine Nitrite Negative, Urine Bilirubin 1 H, Urine Urobilinogen 1 H, Ur Leukocyte Esterase 25 H, Urine RBC 0 SEEN, Urine WBC 0-5 SEEN, Ur Squamous Epith Cells 0 SEEN, Urine Bacteria RARE, Hyaline Casts 5-10 SEEN, Urine Mucus 0 SEEN 08/26/23 19:50: Lactic Acid 3.3 H* 08/26/23 21:45: Troponin I High Sens 344 H* 08/27/23 00:59: Lactic Acid 1.9 08/27/23 06:00: WBC 4.3 L, RBC 2.82 L, Hgb 8.3 L, Hct 26.9 L, MCV 95.4 H, MCH 29.4, MCHC 30.9 L, RDW Std Deviation 57.9 H, RDW Coeff of Flavio 16.7 H, Plt Count 124 L, MPV 9.6, Immature Gran % (Auto) 0.900, Neut % (Auto) 65.1, Lymph % (Auto) 17.1 L, Stewart % (Auto) 14.1 H, Eos % (Auto) 1.9, Baso % (Auto) 0.9, Absolute Neuts (auto) 2.8, Absolute Lymphs (auto) 0.73 L, Nucleated RBC % 0, Sodium 142, Potassium 4.5, Chloride 117 H, Carbon Dioxide 18.0 L, Anion Gap 7, BUN 55 H, Creatinine 2.71 H, Estim Creat Clear Calc 27.78, Est GFR (MDRD) Af Amer 29 L, Est GFR (MDRD) Non-Af 24 L, BUN/Creatinine Ratio 20.3 H, Glucose 235 H, Calcium 8.1 L, Total Bilirubin 1.60 H, AST 56 H, ALT 37, Alkaline Phosphatase 236 H, Total Protein 5.9 L, Albumin 2.1 L, Globulin 3.8, Albumin/Globulin Ratio 0.6 L Micro: Microbiology 08/26/23 19:34 Mucosa - Nose SARS-CoV-2, Influenza & RSV (PCR) - Final Radiography Diagnostic Testing: Radiology Impression Brain CT 08/26/23 19:23 IMPRESSION: Chronic changes as described with no acute intracranial hemorrhage or space-occupying lesion. Electronically Signed: Danni Alvarado MD at 20:14 EST Reading Location ID and State: [id number] / [facility] , Service support , Chest X-Ray 08/26/23 20:00 IMPRESSION: No acute cardiopulmonary disease. Electronically Signed: Danni Alvarado MD at 20:15 EST Reading Location ID and State: [id number] / [facility] , Service support , Physical Exam Narrative GENERAL: cooperative but frail looking HEENT: Atraumatic; normocephalic EYES; Anicteric, Normal Conjunctiva NECK; supple, normal thyroid, RESPIRATORY: Diminished to auscultation CARDIOVASCULAR: Regular S1 S2, GI: soft, normoactive bowel sounds, : No Renal angle tenderness; EXTREMITIES: edema, no clubbing, MUSCULOSKELETAL: no muscle wasting NEURO: Awake; no lateralizing signs. SKIN: No Rash PSYCH; Flat affect Skin General Skin Exam: no breakdown and turgor normal Neuro CN's II-XII intact bilaterally, no focal motor deficits and no sensory deficits noted Motor Exam: strength 5/5 throughout and general weakness Psych thought process normal Mood & Affect: flat affect Assessment & Plan Assessment/Plan (1) Altered mental status: QUALIFIERS: Altered mental status type: disorientation Qualified Code(s): R41.0 - Disorientation, unspecified (2) Acute hepatic encephalopathy: PLAN: Plan Patient is an 83-year-old gentleman admitted with was recently admitted for acute hepatic encephalopathy discharged home on lactulose. Patient apparently stopped taking his lactulose in view of persistent loose bowel movement. He however did experience therefore did call the EMS patient was found to be profoundly weak brought to the emergency department, found to have ammonia level of 96 admitted to monitored bed 1. Acute hepatic encephalopathy ? 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 Patient was recently discharged on lactulose as well as Xifaxan. He however stopped taking his lactulose in view of diarrhea presented with progressive generalized weakness and falls. Admitted to monitored bed Xifaxan continued, lactulose reinitiated 2. 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 Anemia ? Suspected to be secondary to anemia of chronic disorder as well as chronic blood loss anemia. Patient underwent EGD during his previous admission which demonstrated; Small (< 5 mm) esophageal varices. - Three bleeding angiodysplastic lesions in the stomach. Treated with a heater probe. Normal first portion of the duodenum. Subsequent management Protonix 4. Non anion gap metabolic acidosis ? Secondary to patient kidney injury do expect improvement with improvement in his kidney function 5. Acute kidney injury superimposed on chronic kidney disease stage IIIb ? Creatinine on on discharge on 08/22/2023 was 1.8, patient creatinine admission was 2.96. Patient is on furosemide held on admission 6. Obstructive sleep apnea ? Patient is on BiPAP at night 7. Paroxysmal A-fib ? EKG on admission demonstrated paced rhythm. Patient is on systemic anticoagulation with apixaban continue 8. 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 Complicating care weight loss advised 9. Hypertension - Blood pressure controlled, home medications continued with dose adjustment as needed 10. Restless leg syndrome ? Patient is on Mirapex continue 11. Diabetes mellitus type II -patient's oral hypoglycemics held. Placed on long acting insulin, Accu-Cheks a.c. and at bedtime and covered with sliding scale insulin 12. Chronic congestive heart failure with preserved ejection fraction ? Last echo from 11/11/2022 demonstrated EF of 65%. Patient remains euvolemic 13. Conduction system disorder ? Status post pacemaker placement 14. Physical deconditioning - Requested for PT OT eval and social service worker to assist with discharge planning 15. Thickened gallbladder wall with multiple gallstones ? Ordered HIDA scan as recommended by the radiology during his previous admission. His HIDA scan was nondiagnostic 16. BPH with lower urinary obstruction - Patient treated with finasteride 17. DVT prophylaxis ? On apixaban Time spent in the patient's overall evaluation,decision-making process, review of diagnostic data, adjustment of management, discussion with other providers, nursing nursing and ancillary staff involved in patient's care documentation, 50 Minutes Charges/Coding Visit Charges Inpatient E&M: 21368 Subs Hosp L3
--- NOTE | 2023-08-27 13:07 | CHAPLAIN ---
Type of Pastoral Visit _x__ Initial Visit ___ Follow-up Visit ___ On-call Visit ___ General Patient Visit ___ Spiritual Assessment ___ Family Conference ___ Bereavement ___ Rapid Response ___ Code Blue ___ Other (describe below) Pastoral Care Referral From _x__ Patient ___ Family ___ Nurse ___ Physician ___ Continuous Dryout Operator ___ Steel Worker ___ Other (describe below) Sacrament/Intervention _x__ Active listening ___ Anointing ___ Zoroastrianism ___ Bereavement ___ Communion ___ Ariadna exploration ___ ___ Life review _x__ Prayer ___ Reconciliation ___ Sacrament of Sick _x__ Supportive presence ___ Wedding ___ Other (describe below) Pastoral Comments patient and spouse are both in the hospital; daughter is at bedside; both describe what has been taking place for family; pt is waiting for a room for admission; pt is content and knows the routine of the hospital; pt is talkative and asks for a prayer for his whole family;
--- NOTE | 2023-08-27 15:00 | CASEMGMT ---
RN CM chart review: Patient was admitted 08/20-08/23/23 for hepatic encephalopathy. See RN CM assessment from 08/21/23. Patient was discharged to home prior to [facility] setup with support from . Patient returned to [facility] ED for increase confusion and weakness after being found by daughter at home. , patient's caregiver, was admitted early on 08/26/23 for Stroke alert. and patient both confused, RN CM seen daughter for readmission and discharge planning. Per daughter, patient was taking medications as prescribed. Patient returned prior to PCP follow-up. RN CM discuss discharge planning with patient. Daughter is anticipating SNF at discharge as mother, patient's , is not able to assist . Will monitor progress with therapy. CM will continue to monitor this patient and plan for a safe discharge.
[2023-08-27] MEDS: Atorvastatin Calcium 10 MG Tablet PO (20:18)
[2023-08-27] MEDS: Pramipexole Di-HCl 1 MG Tablet 2 MG PO (20:18)
[2023-08-28] VITALS (8 sets, daily range): BP systolic 121–140; BP diastolic 38–65; PULSE 69–72; RESP 16–18; TEMP 36.2–36.8; O2SAT 97–98
--- NOTE | 2023-08-28 00:57 | NURSING ---
Emergency Documentation 08/27/23 20:00
[2023-08-28] MEDS: hydrALAZINE 50 MG Tablet PO ×3 (05:05→19:44)
[2023-08-28] MEDS: Lactulose 20 GM/30 ML UDC PO ×3 (05:05→19:43)
[2023-08-28] MEDS: Fluticasone 0.05% 1 SPRAY NASAL.SRY 2 SPRAY NASAL (09:32)
[2023-08-28] MEDS: Ferrous Sulfate 325 MG Tablet PO (09:32)
[2023-08-28] MEDS: APIXABAN 2.5 MG TABLET (WCH) PO ×2 (09:32→19:44)
[2023-08-28] MEDS: Famotidine 20 MG Tablet PO (09:32)
[2023-08-28] MEDS: rifAXIMin 550 MG Tablet PO ×2 (09:33→19:44)
[2023-08-28] MEDS: Pantoprazole Sodium 40 MG Tablet PO (09:33)
[2023-08-28] MEDS: Finasteride 5 MG Tablet PO (09:33)
[2023-08-28] MEDS: Metoprolol(XL)Succ 25 MG Tablet PO (09:33)
[2023-08-28] MEDS: Sertraline 50 MG Tablet 25 MG PO (09:33)
--- NOTE | 2023-08-28 10:06 | PN.HOSP_ITS ---
Reason for Visit Reason for Visit: Diagnoses Hepatic encephalopathy (08/26/23) Disorientation, unspecified (08/26/23) Subjective Subjective Since seen complains of feeling weak. Ordered CBC and differential to evaluate response to therapy. Requested for PT/OT Objective Data Objective Data Vital Signs: Vital Signs Temp Pulse Resp BP Pulse Ox O2 Del Method 97.6 F L 72 16 136/38 H 98 Room Air 08/28/23 09:00 08/28/23 09:33 08/28/23 09:00 08/28/23 09:00 08/28/23 09:00 08/28/23 09:00 Oxygen Delivery Method Room Air Weight: 125.6 kg Body Mass Index (BMI) 37.5 Intake & Output: Intake and Output for Last 24 Hours 08/26/23 08/27/23 08/28/23 23:59 23:59 23:59 Intake Total 1500 / 1500 2480 / 2580 100 / 100 Output Total 1300 / 1300 Balance 1500 / 1500 1180 / 1280 100 / 100 Lab / Micro Data 08/27/23 06:00 08/27/23 06:00 Micro: Microbiology 08/26/23 19:34 Mucosa - Nose SARS-CoV-2, Influenza & RSV (PCR) - Final Physical Exam Narrative GENERAL: cooperative but frail looking HEENT: Atraumatic; normocephalic EYES; Anicteric, Normal Conjunctiva NECK; supple, normal thyroid, RESPIRATORY: Diminished to auscultation CARDIOVASCULAR: Regular S1 S2, GI: soft, normoactive bowel sounds, : No Renal angle tenderness; EXTREMITIES: edema, no clubbing, MUSCULOSKELETAL: no muscle wasting NEURO: Awake; no lateralizing signs. SKIN: No Rash PSYCH; Flat affect Assessment & Plan Assessment/Plan (1) Hepatic encephalopathy: PLAN: Plan Patient is an 83-year-old gentleman admitted with was recently admitted for acute hepatic encephalopathy discharged home on lactulose. Patient apparently stopped taking his lactulose in view of persistent loose bowel movement. He however did experience therefore did call the EMS patient was found to be profoundly weak brought to the emergency department, found to have ammonia level of 96 admitted to monitored bed 1. Acute hepatic encephalopathy ? 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 Patient was recently discharged on lactulose as well as Xifaxan. He however stopped taking his lactulose in view of diarrhea presented with progressive generalized weakness and falls. Admitted to monitored bed Xifaxan continued, lactulose reinitiated ? 08/28/2023; patient remains on Xifaxan and lactulose. Ordered labs for follow- up 2. 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 Anemia ? Suspected to be secondary to anemia of chronic disorder as well as chronic blood loss anemia. Patient underwent EGD during his previous admission which demonstrated; Small (< 5 mm) esophageal varices. - Three bleeding angiodysplastic lesions in the stomach. Treated with a heater probe. Normal first portion of the duodenum. Subsequent management Protonix 4. Non anion gap metabolic acidosis ? Secondary to patient kidney injury do expect improvement with improvement in his kidney function 5. Acute kidney injury superimposed on chronic kidney disease stage IIIb ? Creatinine on on discharge on 08/22/2023 was 1.8, patient creatinine admission was 2.96. Patient is on furosemide held on admission 6. Obstructive sleep apnea ? Patient is on BiPAP at night 7. Paroxysmal A-fib ? EKG on admission demonstrated paced rhythm. Patient is on systemic anticoagulation with apixaban continue 8. 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 Complicating care weight loss advised 9. Hypertension - Blood pressure controlled, home medications continued with dose adjustment as needed 10. Restless leg syndrome ? Patient is on Mirapex continue 11. Diabetes mellitus type II -patient's oral hypoglycemics held. Placed on long acting insulin, Accu-Cheks a.c. and at bedtime and covered with sliding scale insulin 12. Chronic congestive heart failure with preserved ejection fraction ? Last echo from 11/11/2022 demonstrated EF of 65%. Patient remains euvolemic 13. Conduction system disorder ? Status post pacemaker placement 14. Physical deconditioning - Requested for PT OT eval and social media coordinator to assist with discharge planning 15. Thickened gallbladder wall with multiple gallstones ? Ordered HIDA scan as recommended by the radiology during his previous admission. His HIDA scan was nondiagnostic 16. BPH with lower urinary obstructive symptoms - Patient treated with finasteride 17. Physical deconditioning - Requested for PT OT eval and social media coordinator to assist with discharge planning 18. DVT prophylaxis ? On apixaban Time spent in the patient's overall evaluation,decision-making process, review of diagnostic data, adjustment of management, discussion with other providers, nursing nursing and ancillary staff involved in patient's care documentation, 50 Minutes Charges/Coding Visit Charges Inpatient E&M: 61792 Subs Hosp L3
[2023-08-28 10:50] LABS: Hematocrit 29.8 % (40-54); Hemoglobin 9.4 g/dL (13.0-16.5); Mean Corp Hgb Conc 31.5 g/dL (32-36); Mean Corpuscular Hgb 30.1 pg (27.0-32.0); Mean Corpuscular Volume 95.5 fL (80-94); Mean Platelet Vol. 9.6 fl (6.2-12.0); Platelet Count 149 K/mm3 (150-450); RBC Distribution Width CV 17.2 % (11.6-14.6); RBC Distribution Width SD 59.7 fl (35.1-43.9); Red Blood Count 3.12 M/mm3 (4.6-6.2); White Blood Count 4.8 K/mm3 (4.4-11.0)
[2023-08-28 11:11] LABS: ALB/GLOB Ratio 0.5 RATIO (0.9-2.4); AST(SGOT) 62 U/L (15-37); Alanine Aminotransfer ALT/SGPT 40 U/L (16-61); Albumin, Serum 2.3 g/dL (3.2-5.0); Alkaline Phosphatase 278 U/L (45-117); Anion Gap 6 (5-15); BUN 44 mg/dL (7-18); Calcium,Total 8.3 mg/dL (8.5-10.1); Chloride 120 mmol/L (98-107); Creatinine, Serum 2.32 mg/dL (0.70-1.30); EST Glomerular Filtration Rate 29 mL/min (>60); Est Glom Filt Rate - Afr Amer 35 mL/min (>60); Estimated Creatinine Clearance 32.45 ml/min; Globulin 4.3 g/dL (2.2-4.2); Glucose 254 mg/dL (74-106); Magnesium 2.3 mg/dL (1.6-2.6); Protein, Total 6.6 g/dL (6.4-8.2); Sodium Level 143 mmol/L (136-145)
--- NOTE | 2023-08-28 13:55 | CASEMGMT ---
Addendum entered by Naz Phipps 08/28/23 14:06: SW checked with patient and he was in agreement with going to [facility] for rehab. SW asked Meghan d/jazmyne conference planning manager to send a referral to [facility]. Naz ANGELES Original Note: SW spoke with therapy and they are recommending patient go for rehab. Patient is in and out of confusion so SW spoke with patient's Coby. SW introduced self and role at [facility]. SW explained therapy's recommendations. SW mentioned patient has been to [facility] in the past and is this where she would like patient to go at discharge. SW also offered a list of snf facilities, but Coby declined. Coby also asked that SW check with patient. SW went to check with patient, but he was on the bedside commode. SW will check back. Naz ANGELES
--- NOTE | 2023-08-28 14:47 | CASEMGMT ---
Discharge Planning Referral sent to [facility] via [facility]. Meghan Trujillo, Discharge Planning Asst.
[2023-08-28] MEDS: Atorvastatin Calcium 10 MG Tablet PO (19:43)
[2023-08-28] MEDS: Pramipexole Di-HCl 1 MG Tablet 2 MG PO (19:45)
--- NOTE | 2023-08-28 23:38 | NURSING ---
EMERGENCY DOCUMENTATION 2000
[2023-08-29] VITALS (8 sets, daily range): BP systolic 111–140; BP diastolic 54–61; PULSE 69–70; RESP 16–20; TEMP 36.1–36.7; O2SAT 97–99
[2023-08-29] MEDS: hydrALAZINE 50 MG Tablet PO ×3 (05:09→21:35)
[2023-08-29] MEDS: Lactulose 20 GM/30 ML UDC PO ×2 (05:09→14:42)
[2023-08-29 06:10] LABS: Absolute Lymphocyte Count 1.06 X10^3/uL (0.83-4.51); Absolute Neutrophil Count 2.8 X10^3/uL (2.0-7.7); Basophil# 0.05 X10^3/uL; Basophil% 1.1 % (0-1); Eosinophil# 0.12 X10^3/uL; Eosinophils% 2.6 % (0-5); Hematocrit 28.8 % (40-54); Hemoglobin 9.1 g/dL (13.0-16.5); Lymphocyte # 1.06 X10^3/ul (0.83-4.51); Lymphocyte % 23.1 % (19-41); Mean Corp Hgb Conc 31.6 g/dL (32-36); Mean Corpuscular Hgb 30.3 pg (27.0-32.0); Mean Platelet Vol. 9.9 fl (6.2-12.0); Monocyte# 0.58 X10^3/uL; Monocyte% 12.7 % (0-10); NRBC Flagged by Analyzer 0 % (0-5); Neutrophil # 2.75 X10^3/uL (2.7-7.7); Neutrophil % 60.1 % (47-70); Platelet Count 151 K/mm3 (150-450); RBC Distribution Width CV 17.3 % (11.6-14.6); RBC Distribution Width SD 60.4 fl (35.1-43.9); White Blood Count 4.6 K/mm3 (4.4-11.0)
[2023-08-29 07:03] LABS: Anion Gap 8 (5-15); BUN 44 mg/dL (7-18); BUN/Creat Ratio 18.5 RATIO (10-20); Calcium,Total 8.8 mg/dL (8.5-10.1); Chloride 122 mmol/L (98-107); Creatinine, Serum 2.38 mg/dL (0.70-1.30); EST Glomerular Filtration Rate 28 mL/min (>60); Est Glom Filt Rate - Afr Amer 34 mL/min (>60); Estimated Creatinine Clearance 31.63 ml/min; Glucose 184 mg/dL (74-106); Phosphorus 3.5 mg/dL (2.5-4.9); Potassium 4.4 mmol/L (3.5-5.1); Sodium Level 145 mmol/L (136-145)
--- NOTE | 2023-08-29 08:50 | CASEMGMT ---
SW was informed that patient's will also need placement. Patient's daughter came to [facility] and told CM that she would like both patient and his to go to [facility]. SW spoke with patient and he is agreeable to this plan. SIMONA asked Meghan horn/jazmyne urban planning professor to please make a referral to [facility]. Plan: [facility] pending acceptance. Naz ANGELES
--- NOTE | 2023-08-29 08:54 | CASEMGMT ---
Discharge Planning Referral sent to [facility] via [facility]. Meghan Trujillo, Discharge Planning Asst.
[2023-08-29] MEDS: Fluticasone 0.05% 1 SPRAY NASAL.SRY 2 SPRAY NASAL (09:05)
[2023-08-29] MEDS: Famotidine 20 MG Tablet PO (09:06)
[2023-08-29] MEDS: Sertraline 50 MG Tablet 25 MG PO (09:06)
[2023-08-29] MEDS: rifAXIMin 550 MG Tablet PO (09:06)
[2023-08-29] MEDS: Metoprolol(XL)Succ 25 MG Tablet PO (09:06)
[2023-08-29] MEDS: Finasteride 5 MG Tablet PO (09:06)
[2023-08-29] MEDS: Pantoprazole Sodium 40 MG Tablet PO (09:07)
[2023-08-29] MEDS: APIXABAN 2.5 MG TABLET (WCH) PO ×2 (09:07→21:35)
--- NOTE | 2023-08-29 10:09 | PN.HOSP_ITS ---
Reason for Visit Reason for Visit: Diagnoses Hepatic encephalopathy (08/26/23) Disorientation, unspecified (08/26/23) Subjective Subjective Patient seen complains of right foot pain he therefore did not participate in physical therapy. Ordered imaging studies of the right foot Objective Data Objective Data Vital Signs: Vital Signs Temp Pulse Resp BP Pulse Ox O2 Del Method 98.0 F 69 16 123/61 H 98 Room Air 08/29/23 08:40 08/29/23 09:06 08/29/23 08:40 08/29/23 08:40 08/29/23 08:40 08/29/23 08:40 Oxygen Delivery Method Room Air Weight: 125.6 kg Body Mass Index (BMI) 37.5 Intake & Output: Intake and Output for Last 24 Hours 08/27/23 08/28/23 08/29/23 23:59 23:59 23:59 Intake Total 2480 / 2580 540 / 540 240 / 240 Output Total 1300 / 1300 550 / 550 300 / 300 Balance 1180 / 1280 -10 / -10 -60 / -60 Lab / Micro Data 08/29/23 05:50 08/29/23 05:50 Labs: Laboratory Results - last 24 hr 08/28/23 10:35: WBC 4.8, RBC 3.12 L, Hgb 9.4 L, Hct 29.8 L, MCV 95.5 H, MCH 30.1, MCHC 31.5 L, RDW Std Deviation 59.7 H, RDW Coeff of Flavio 17.2 H, Plt Count 149 L, MPV 9.6, Sodium 143, Potassium 4.0, Chloride 120 H, Carbon Dioxide 17.0 L , Anion Gap 6, BUN 44 H, Creatinine 2.32 H, Estim Creat Clear Calc 32.45, Est GFR (MDRD) Af Amer 35 L, Est GFR (MDRD) Non-Af 29 L, BUN/Creatinine Ratio 19.0, Glucose 254 H, Calcium 8.3 L, Magnesium 2.3, Total Bilirubin 2.20 H, AST 62 H, ALT 40, Alkaline Phosphatase 278 H, Total Protein 6.6, Albumin 2.3 L, Globulin 4.3 H, Albumin/Globulin Ratio 0.5 L 08/29/23 05:50: WBC 4.6, RBC 3.00 L, Hgb 9.1 L, Hct 28.8 L, MCV 96.0 H, MCH 30.3, MCHC 31.6 L, RDW Std Deviation 60.4 H, RDW Coeff of Flavio 17.3 H, Plt Count 151, MPV 9.9, Immature Gran % (Auto) 0.400, Neut % (Auto) 60.1, Lymph % (Auto) 23.1, Cameron % (Auto) 12.7 H, Eos % (Auto) 2.6, Baso % (Auto) 1.1 H, Absolute Neuts (auto) 2.8, Absolute Lymphs (auto) 1.06, Nucleated RBC % 0, Sodium 145, Potassium 4.4, Chloride 122 H, Carbon Dioxide 15.0 L, Anion Gap 8, BUN 44 H, Creatinine 2.38 H, Estim Creat Clear Calc 31.63, Est GFR (MDRD) Af Amer 34 L, Est GFR (MDRD) Non-Af 28 L, BUN/Creatinine Ratio 18.5, Glucose 184 H, Calcium 8.8, Phosphorus 3.5 Micro: Microbiology 08/26/23 19:34 Urine, Catheterized Urine Culture - Final Culture exhibits no growth. 08/26/23 19:34 Mucosa - Nose SARS-CoV-2, Influenza & RSV (PCR) - Final Physical Exam Narrative GENERAL: cooperative but frail looking HEENT: Atraumatic; normocephalic EYES; Anicteric, Normal Conjunctiva NECK; supple, normal thyroid, RESPIRATORY: Diminished to auscultation CARDIOVASCULAR: Regular S1 S2, GI: soft, normoactive bowel sounds, : No Renal angle tenderness; EXTREMITIES: edema, no clubbing, MUSCULOSKELETAL: no muscle wasting NEURO: Awake; no lateralizing signs. SKIN: No Rash PSYCH; Flat affect Assessment & Plan Assessment/Plan (1) Hepatic encephalopathy: PLAN: Plan Patient is an 83-year-old gentleman admitted with was recently admitted for acute hepatic encephalopathy discharged home on lactulose. Patient apparently stopped taking his lactulose in view of persistent loose bowel movement. He however did experience therefore did call the EMS patient was found to be profoundly weak brought to the emergency department, found to have ammonia level of 96 admitted to monitored bed 1. Acute hepatic encephalopathy ? 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 Patient was recently discharged on lactulose as well as Xifaxan. He however stopped taking his lactulose in view of diarrhea presented with progressive generalized weakness and falls. Admitted to monitored bed Xifaxan continued, lactulose reinitiated ? 08/28/2023; patient remains on Xifaxan and lactulose. Ordered labs for follow- up 2. 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 Anemia ? Suspected to be secondary to anemia of chronic disorder as well as chronic blood loss anemia. Patient underwent EGD during his previous admission which demonstrated; Small (< 5 mm) esophageal varices. - Three bleeding angiodysplastic lesions in the stomach. Treated with a heater probe. Normal first portion of the duodenum. Subsequent management Protonix 4. Non anion gap metabolic acidosis ? Secondary to patient kidney injury do expect improvement with improvement in his kidney function 5. Acute kidney injury superimposed on chronic kidney disease stage IIIb ? Creatinine on on discharge on 08/22/2023 was 1.8, patient creatinine admission was 2.96. Patient is on furosemide held on admission 6. Obstructive sleep apnea ? Patient is on BiPAP at night 7. Paroxysmal A-fib ? EKG on admission demonstrated paced rhythm. Patient is on systemic anticoagulation with apixaban continue 8. 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 Complicating care weight loss advised 9. Hypertension - Blood pressure controlled, home medications continued with dose adjustment as needed 10. Restless leg syndrome ? Patient is on Mirapex continue 11. Diabetes mellitus type II -patient's oral hypoglycemics held. Placed on long acting insulin, Accu-Cheks a.c. and at bedtime and covered with sliding scale insulin 12. Chronic congestive heart failure with preserved ejection fraction ? Last echo from 11/11/2022 demonstrated EF of 65%. Patient remains euvolemic 13. Conduction system disorder ? Status post pacemaker placement 14. Physical deconditioning - Requested for PT OT eval and social sciences chair to assist with discharge planning 15. Thickened gallbladder wall with multiple gallstones ? Ordered HIDA scan as recommended by the radiology during his previous admission. His HIDA scan was nondiagnostic 16. BPH with lower urinary obstructive symptoms - Patient treated with finasteride 17. Physical deconditioning - Requested for PT OT eval and social sciences chair to assist with discharge planning 18. DVT prophylaxis ? On apixaban 19. Right foot pain ? Ordered x-rays for subsequent eval. Pain medication initiated for symptom management Time spent in the patient's overall evaluation,decision-making process, review of diagnostic data, adjustment of management, discussion with other providers, nursing nursing and ancillary staff involved in patient's care documentation, 35 Minutes Charges/Coding Visit Charges Inpatient E&M: 56727 Subs Hosp L2
--- NOTE | 2023-08-29 10:29 | RAD_ITS ---
STUDY: X-RAY - RIGHT FOOT CLINICAL: Male, 83 years old. Right foot pain TECHNIQUE: 2 view(s) of the foot. COMPARISON: 10/10/2022. FINDINGS: Nondisplaced fractures are seen of the necks of the second-fifth metatarsals. Normal talus, calcaneus, and tarsal bones. Normal visualized subtalar, talonavicular, calcaneocuboid, tarsal and tarsometatarsal articulations. Normal metatarsophalangeal joint of the great toe. Normal tibial and fibular sesamoid bones. Normal interphalangeal joint of the great toe. Normal phalanges of the great toe. Normal second through fifth metatarsophalangeal joints. Normal interphalangeal joints and phalanges of the lesser toes. There is dorsal soft tissue swelling. RAD/Foot 2 Views IMPRESSION: Nondisplaced fractures are seen of the necks of the second-fifth metatarsals. Electronically Signed: Vicente Lew MD at 20:33 EST ,
--- NOTE | 2023-08-29 11:11 | CASEMGMT ---
SIMONA called patient's daughter Na. SIMONA let Na know that [facility] can take patient and his . Na asked if they could room together. SW will ask. SIMONA asked Na if she could take patient's Rifaximin to [facility] and she said she could do this. SW will let her know when patient and his are ready for d/c. Plan: [facility] under skilled level of care. Naz Phipps SEGREGATORDixie ANGELES
--- NOTE | 2023-08-29 15:43 | PCM.DC.SUM ---
Providers Date of Admission: 08/26/23 Date of Discharge: 08/29/23 Primary Care Physician: Dr. Tosha Shrestha MD Reason For Visit: ACUTE HEPATIC ENCEPHALOPATHY Diagnosis Discharge Diagnosis (1) Hepatic encephalopathy: Status: Acute Code(s): K76.82 - Hepatic encephalopathy Plan Patient is an 83-year-old gentleman admitted with was recently admitted for acute hepatic encephalopathy discharged home on lactulose. Patient apparently stopped taking his lactulose in view of persistent loose bowel movement. He however did experience therefore did call the EMS patient was found to be profoundly weak brought to the emergency department, found to have ammonia level of 96 admitted to monitored bed 1. Acute hepatic encephalopathy ? 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 Patient was recently discharged on lactulose as well as Xifaxan. He however stopped taking his lactulose in view of diarrhea presented with progressive generalized weakness and falls. Admitted to monitored bed Xifaxan continued, lactulose reinitiated ? 08/28/2023; patient remains on Xifaxan and lactulose. Ordered labs for follow-up 2. 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 Anemia ? Suspected to be secondary to anemia of chronic disorder as well as chronic blood loss anemia. Patient underwent EGD during his previous admission which demonstrated; Small (< 5 mm) esophageal varices. - Three bleeding angiodysplastic lesions in the stomach. Treated with a heater probe. Normal first portion of the duodenum. Subsequent management Protonix 4. Non anion gap metabolic acidosis ? Secondary to patient kidney injury do expect improvement with improvement in his kidney function 5. Acute kidney injury superimposed on chronic kidney disease stage IIIb ? Creatinine on on discharge on 08/22/2023 was 1.8, patient creatinine admission was 2.96. Patient is on furosemide held on admission 6. Obstructive sleep apnea ? Patient is on BiPAP at night 7. Paroxysmal A-fib ? EKG on admission demonstrated paced rhythm. Patient is on systemic anticoagulation with apixaban continue 8. 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 Complicating care weight loss advised 9. Hypertension - Blood pressure controlled, home medications continued with dose adjustment as needed 10. Restless leg syndrome ? Patient is on Mirapex continue 11. Diabetes mellitus type II -patient's oral hypoglycemics held. Placed on long acting insulin, Accu-Cheks a.c. and at bedtime and covered with sliding scale insulin 12. Chronic congestive heart failure with preserved ejection fraction ? Last echo from 11/11/2022 demonstrated EF of 65%. Patient remains euvolemic 13. Conduction system disorder ? Status post pacemaker placement 14. Physical deconditioning - Requested for PT OT eval and long term care social worker to assist with discharge planning 15. Thickened gallbladder wall with multiple gallstones ? Ordered HIDA scan as recommended by the radiology during his previous admission. His HIDA scan was nondiagnostic 16. BPH with lower urinary obstructive symptoms - Patient treated with finasteride 17. Physical deconditioning - Requested for PT OT eval and long term care social worker to assist with discharge planning 18. DVT prophylaxis ? On apixaban 19. Right foot pain ? Ordered x-rays for subsequent eval. Pain medication initiated for symptom management Time spent in the patient's overall evaluation,decision-making process, review of diagnostic data, adjustment of management, discussion with other providers, nursing nursing and ancillary staff involved in patient's care documentation, 35 Minutes Medications at Discharge Home Medications finasteride 5 mg tablet 5 mg PO DAILY PROSTATE #90 tabs 11/03/18 ergocalciferol (vitamin D2) 1,250 mcg (50,000 unit) capsule 50,000 unit PO QMONTH SUPPLEMENT #14 caps 11/29/22 nitroglycerin 0.4 mg sublingual tablet 0.4 mg sublingual Q5M PRN Cardiac/Chest Pain 30 days #30 tabs 12/03/22 metoprolol succinate 25 mg tablet,extended release 24 hr 25 mg PO DAILY BLOOD PRESSURE 12/07/22 apixaban 2.5 mg tablet (Eliquis) 2.5 mg PO BID BLOOD THINNER #180 tabs 12/25/22 atorvastatin 10 mg tablet 10 mg PO QHS CHOLESTEROL #90 tabs 12/25/22 pen needle, diabetic 31 gauge x 3/16 (BD Ultra-Fine Mini Pen Needle) #100 ea 12/30/22 hydralazine 50 mg tablet 50 mg PO TID BLOOD PRESSURE 02/04/23 pramipexole 1 mg tablet (Mirapex) 2 mg (2 x 1 mg) PO QHS RESTLESS LEG SYNDROME #180 tabs 02/04/23 sertraline 25 mg tablet 25 mg PO DAILY DEPRESSION 02/04/23 fluticasone propionate 50 mcg/actuation nasal spray,suspension 2 spray intranasal DAILY NASAL CONGESTION #16 grams 06/24/23 progesterone micronized 100 mg capsule 100 mg PO QAM HORMONE REPLACEMENT #90 caps 07/03/23 lancets 30 gauge (OneTouch Delica Plus Lancet) #100 ea 07/22/23 walker (Ultra-Light Rollator misc) #1 ea 08/13/23 famotidine 40 mg tablet 40 mg PO DAILY ACID REFLUX #30 tabs 08/15/23 ferrous sulfate 325 mg (65 mg iron) tablet 325 mg PO TH supplement #90 tabs 08/15/23 dulaglutide 4.5 mg/0.5 mL subcutaneous pen injector 4.5 mg subcut FR DIABETES 08/20/23 insulin glargine-yfgn 100 unit/mL (3 mL) subcutaneous pen (Semglee (insulin glargine-yfgn) Pen) 32 unit subcut DAILY DIABETES 08/20/23 pantoprazole 40 mg tablet,delayed release (Protonix) 40 mg PO DAILY #60 tabs 08/23/23 rifaximin 550 mg tablet (Xifaxan) 550 mg PO BID 60 days #120 tabs 08/23/23 meclizine 25 mg tablet 25 mg PO Q8H PRN dizziness 08/26/23 acetaminophen 325 mg tablet 650 mg (2 x 325 mg) PO Q4H PRN fever or pain #1 TAB 08/29/23 lactulose 20 gram/30 mL oral solution 20 g (30 mL) PO DAILY #0 mL 08/29/23 Hospital Course Summary of Care Provided Minutes Spent on Discharge: 35 Physical Exam Narrative GENERAL: cooperative but frail looking HEENT: Atraumatic; normocephalic EYES; Anicteric, Normal Conjunctiva NECK; supple, normal thyroid, RESPIRATORY: Diminished to auscultation CARDIOVASCULAR: Regular S1 S2, GI: soft, normoactive bowel sounds, : No Renal angle tenderness; EXTREMITIES: edema, no clubbing, MUSCULOSKELETAL: no muscle wasting NEURO: Awake; no lateralizing signs. SKIN: No Rash PSYCH; Flat affect Weight / BMI Weight Weight: 125.6 kg Body Mass Index (BMI) 37.5 ABG / Lab / Microbiology Data 08/29/23 05:50 08/29/23 05:50 Laboratory: Laboratory Results - last 24 hr 08/29/23 05:50: WBC 4.6, RBC 3.00 L, Hgb 9.1 L, Hct 28.8 L, MCV 96.0 H, MCH 30.3, MCHC 31.6 L, RDW Std Deviation 60.4 H, RDW Coeff of Flavio 17.3 H, Plt Count 151, MPV 9.9, Immature Gran % (Auto) 0.400, Neut % (Auto) 60.1, Lymph % (Auto) 23.1, Nolan % (Auto) 12.7 H, Eos % (Auto) 2.6, Baso % (Auto) 1.1 H, Absolute Neuts (auto) 2.8, Absolute Lymphs (auto) 1.06, Nucleated RBC % 0, Sodium 145, Potassium 4.4, Chloride 122 H, Carbon Dioxide 15.0 L, Anion Gap 8, BUN 44 H, Creatinine 2.38 H, Estim Creat Clear Calc 31.63, Est GFR (MDRD) Af Amer 34 L, Est GFR (MDRD) Non-Af 28 L, BUN/Creatinine Ratio 18.5, Glucose 184 H, Calcium 8.8, Phosphorus 3.5 Microbiology: Microbiology 08/26/23 17:02 Blood Culture (Wb) - Anticubital Left Blood Culture - Preliminary No growth in 48 hours. 08/26/23 Unknown Blood Culture (Wb) - Anticubital Right Blood Culture - Preliminary No growth in 48 hours. 08/26/23 19:34 Urine, Catheterized Urine Culture - Final Culture exhibits no growth. 08/26/23 19:34 Mucosa - Nose SARS-CoV-2, Influenza & RSV (PCR) - Final D/C Instructions Discharge Diet: No restrictions Discharge Activity: Return to Normal Activity Call your doctor if you observe: Fever of 101 or Higher, Shortness of breath, Fainting spells and Chest pain Meaningful Use Info Meaningful Use Diagnoses (Choose all that apply): None applicable Discharge Plan Admission Admit Date/Time: 08/26/23 22:02 Attending Provider: Madan Sethi Primary Care Provider: Tosha Shrestha Consulting Providers: Clarice Fontenot Discharge Orders/Prescriptions Prescriptions: New lactulose 20 gram/30 mL Solution 20 g PO DAILY Qty: 0 0RF acetaminophen 325 mg tablet 650 mg PO Q4H PRN (Reason: fever or pain) Qty: 1 0RF Continued pramipexole [Mirapex] 1 mg tablet 2 mg PO QHS Qty: 180 3RF nitroglycerin 0.4 mg Tablet, Sublingual 0.4 mg sublingual Q5M PRN (Reason: Cardiac/Chest Pain) 30 Days Qty: 30 0RF metoprolol succinate 25 mg tablet extended release 24 hr 25 mg PO DAILY hydralazine 50 mg tablet 50 mg PO TID sertraline 25 mg tablet 25 mg PO DAILY dulaglutide 4.5 mg/0.5 mL pen injector 4.5 mg SC FR insulin glargine-yfgn [Semglee(insulin glarg-yfgn)Pen] 100 unit/mL (3 mL) insulin pen 32 unit SUBCUT DAILY Xifaxan 550 mg Tablet 550 mg PO BID 60 Days Qty: 120 0RF pantoprazole [Protonix] 40 mg tablet,delayed release (DR/EC) 40 mg PO DAILY Qty: 60 0RF meclizine 25 mg tablet 25 mg PO Q8H PRN (Reason: dizziness) finasteride 5 mg tablet 5 mg PO DAILY Qty: 90 3RF ergocalciferol (vitamin D2) 1,250 mcg (50,000 unit) capsule 50,000 unit PO QMONTH Qty: 14 1RF Eliquis 2.5 mg tablet 2.5 mg PO BID Qty: 180 3RF atorvastatin 10 mg tablet 10 mg PO QHS Qty: 90 3RF (DME) pen needle, diabetic [BD Ultra-Fine Mini Pen Needle] 31 gauge x 3/16 needle See Rx Instructions .Route Qty: 100 4RF Rx Instructions: As directed fluticasone propionate 50 mcg/actuation spray,suspension 2 spray intranasal DAILY Qty: 16 3RF Hold Instructions: MD Ordered Patient Comments: PT STATES HE USES AT NIGHT progesterone micronized 100 mg capsule 100 mg PO QAM Qty: 90 3RF (DME) lancets [OneTouch Delica Plus Lancet] 30 gauge misc See Rx Instructions .Route Qty: 100 4RF Rx Instructions: As directed; Check BG 2-3 times daily for DMII (DME) Ultra-Light Rollator Misc See Rx Instructions .Route Qty: 1 0RF Rx Instructions: As directed famotidine 40 mg tablet 40 mg PO DAILY Qty: 30 1RF ferrous sulfate 325 mg (65 mg iron) tablet 325 mg PO TH Qty: 90 1RF Rx Instructions: thursdays only Discontinued furosemide [Lasix] 40 mg tablet 60 mg PO DAILY Qty: 45 0RF amiodarone 200 mg tablet 200 mg PO DAILY Qty: 90 3RF Referrals / Follow Up: Tosha Shrestha MD [Primary Care Provider] - Disposition Disposition (needs filled in before D/C Order can be placed): Intermediate Facility Charges/Coding Visit Charges Inpatient E&M: 08118 Disch Hosp >30min
--- NOTE | 2023-08-29 15:50 | PHA.DC.MR.R ---
Pharmacy PA Med Reconciliation Pharmacy Service has performed discharge medication reconciliation for this patient. The patient's discharge medication list was reviewed for discrepancies and discrepancies were resolved. Medications at Discharge Home Medications finasteride 5 mg tablet 5 mg PO DAILY PROSTATE #90 tabs 11/03/18 ergocalciferol (vitamin D2) 1,250 mcg (50,000 unit) capsule 50,000 unit PO QMONTH SUPPLEMENT #14 caps 11/29/22 nitroglycerin 0.4 mg sublingual tablet 0.4 mg sublingual Q5M PRN Cardiac/Chest Pain 30 days #30 tabs 12/03/22 metoprolol succinate 25 mg tablet,extended release 24 hr 25 mg PO DAILY BLOOD PRESSURE 12/07/22 apixaban 2.5 mg tablet (Eliquis) 2.5 mg PO BID BLOOD THINNER #180 tabs 12/25/22 atorvastatin 10 mg tablet 10 mg PO QHS CHOLESTEROL #90 tabs 12/25/22 pen needle, diabetic 31 gauge x 3/16 (BD Ultra-Fine Mini Pen Needle) #100 ea 12/30/22 hydralazine 50 mg tablet 50 mg PO TID BLOOD PRESSURE 02/04/23 pramipexole 1 mg tablet (Mirapex) 2 mg (2 x 1 mg) PO QHS RESTLESS LEG SYNDROME #180 tabs 02/04/23 sertraline 25 mg tablet 25 mg PO DAILY DEPRESSION 02/04/23 fluticasone propionate 50 mcg/actuation nasal spray,suspension 2 spray intranasal DAILY NASAL CONGESTION #16 grams 06/24/23 progesterone micronized 100 mg capsule 100 mg PO QAM HORMONE REPLACEMENT #90 caps 07/03/23 lancets 30 gauge (OneTouch Delica Plus Lancet) #100 ea 07/22/23 walker (Ultra-Light Rollator misc) #1 ea 08/13/23 famotidine 40 mg tablet 40 mg PO DAILY ACID REFLUX #30 tabs 08/15/23 ferrous sulfate 325 mg (65 mg iron) tablet 325 mg PO TH supplement #90 tabs 08/15/23 dulaglutide 4.5 mg/0.5 mL subcutaneous pen injector 4.5 mg subcut FR DIABETES 08/20/23 insulin glargine-yfgn 100 unit/mL (3 mL) subcutaneous pen (Semglee (insulin glargine-yfgn) Pen) 32 unit subcut DAILY DIABETES 08/20/23 pantoprazole 40 mg tablet,delayed release (Protonix) 40 mg PO DAILY #60 tabs 08/23/23 rifaximin 550 mg tablet (Xifaxan) 550 mg PO BID 60 days #120 tabs 08/23/23 meclizine 25 mg tablet 25 mg PO Q8H PRN dizziness 08/26/23 acetaminophen 325 mg tablet 650 mg (2 x 325 mg) PO Q4H PRN fever or pain #1 TAB 08/29/23 lactulose 20 gram/30 mL oral solution 20 g (30 mL) PO DAILY #0 mL 08/29/23
--- NOTE | 2023-08-29 16:25 | NURSING ---
Called report to Christina at [facility]
--- NOTE | 2023-08-29 16:27 | CASEMGMT ---
Patient is ready for discharge to [facility]. SIMONA completed a 7000 in [facility] system. Physicians will transport patient. Plan: d/c to [facility] under skilled level of care on a convalescent stay. Physicians will transport patient. Naz ANGELES
--- NOTE | 2023-08-29 16:52 | CASEMGMT ---
Discharge Planning Discharge orders, signed med list, and transport time sent to [facility] via [facility]. Physicians will transport patient by wheelchair at 8:30p. Nursing, SW, patient, and his daughter updated. Meghan Trujillo, Discharge Planning Asst.
[2023-08-29] MEDS: Pramipexole Di-HCl 1 MG Tablet 2 MG PO (21:35)
[2023-08-29] MEDS: Atorvastatin Calcium 10 MG Tablet PO (21:35)
== END 2023-08-29 23:01 | disposition skilled nursing facility (03) | DRG 441 ==
LOC: ED 22:16 → PCU 23:01
PROVIDERS: Admitting Provider Student in an Organized Health Care Education/Training Program; Emergency Provider Emergency Medicine; PCP Internal Medicine; Visit Provider Internal Medicine
DX: K76.82 Hepatic encephalopathy (principal); K76.7 Hepatorenal syndrome; E87.21 Acute metabolic acidosis; I13.0 Hypertensive heart and chronic kidney disease with heart failure and stage 1 through stage 4 chronic kidney disease, or unspecified chronic kidney disease; N17.9 Acute kidney failure, unspecified; I50.32 Chronic diastolic (congestive) heart failure; I49.5 Sick sinus syndrome; D63.1 Anemia in chronic kidney disease; I48.0 Paroxysmal atrial fibrillation; G25.81 Restless legs syndrome; D50.0 Iron deficiency anemia secondary to blood loss (chronic); E11.42 Type 2 diabetes mellitus with diabetic polyneuropathy; N18.32 Chronic kidney disease, stage 3b; Z79.4 Long term (current) use of insulin; E11.22 Type 2 diabetes mellitus with diabetic chronic kidney disease; E78.5 Hyperlipidemia, unspecified; G47.33 Obstructive sleep apnea (adult) (pediatric); I25.10 Atherosclerotic heart disease of native coronary artery without angina pectoris; K80.20 Calculus of gallbladder without cholecystitis without obstruction; M79.671 Pain in right foot; K71.10 Toxic liver disease with hepatic necrosis, without coma; E66.9 Obesity, unspecified; T46.2X5A Adverse effect of other antidysrhythmic drugs, initial encounter; N40.1 Benign prostatic hyperplasia with lower urinary tract symptoms; Z68.36 Body mass index [BMI] 36.0-36.9, adult; R29.6 Repeated falls; R53.81 Other malaise; Z95.0 Presence of cardiac pacemaker; Z79.01 Long term (current) use of anticoagulants; Z79.890 Hormone replacement therapy; Z79.84 Long term (current) use of oral hypoglycemic drugs; Z79.85 Long-term (current) use of injectable non-insulin antidiabetic drugs; Z79.899 Other long term (current) drug therapy; Z86.73 Personal history of transient ischemic attack (TIA), and cerebral infarction without residual deficits
CPT/HCPCS: 36415; 70450; 71045; 73620; 80048; 80053; 81001; 82140; 82962; 83605; 83690; 83735; 84100; 84484; 85025; 85027; 85610; 85730; 87040; 87086; 87631; 93005; 97162; 97166; 99285; J7030; J7050; P9612; A4216

== ENCOUNTER → 2023-09-16 | Outpatient (CLI) | payer MEDICARE, BC, SELFPAY ==
--- NOTE | 2023-09-16 08:02 | CT_ITS ---
STUDY: CT RIGHT FOOT REASON FOR EXAM: Male, 83 years old. Nondisplaced fracture of second metatarsal bone right foot. RADIATION DOSAGE (If Supplied By Facility): CTDIvol = ( 15.35 ) mGy, DLP = ( 438.19 ) mGycm TECHNIQUE: Thin section transaxial imaging of the foot was obtained, with sagittal and coronal reconstructed images. Individualized dose optimization techniques were used for this CT. COMPARISON: None. FINDINGS: Intact talus, calcaneus, and tarsal bones. There are small plantar and posterior calcaneal spurs. Normal visualized tibiotalar, subtalar, talonavicular, calcaneocuboid, tarsal and tarsometatarsal articulations. There are fractures of the second through fifth metatarsal necks, age-indeterminate. Normal metatarsophalangeal joint of the great toe. Normal tibial and fibular sesamoid bones. Normal interphalangeal joint of the great toe. Normal phalanges of the great toe. Normal second through fifth metatarsophalangeal joints. Normal interphalangeal joints and phalanges of the lesser toes. There is severe subcutaneous soft tissue edema around the ankle and foot, most pronounced along the dorsum. There are atherosclerotic calcifications.. CT/Extremity Lower without Contra IMPRESSION: Fractures of the second through fifth metatarsal necks, age-indeterminate. Severe subcutaneous soft tissue edema around the ankle and foot, most pronounced along the dorsum. Electronically Signed: Tino Field MD at 15:18 EST ,
--- OUTSIDE RECORDS SUMMARY | 2023-09-16 08:09 | XMS RPT_ITS | CCD ---
Author Name Unknown Address [address] [place] [address] Organization [facility] Results Test Name Value Interpretation [...] BE BASED ON THE PRIMARY CLINICAL RECORDS. [facility] [employer]. provides no warranty or guarantee of the accuracy or completeness of information in this document.
== END | disposition home or self-care (01) ==
PROVIDERS: PCP Internal Medicine; Referring Provider Physician Assistant; Visit Provider Physician Assistant
DX: S92.324A Nondisplaced fracture of second metatarsal bone, right foot, initial encounter for closed fracture (principal); S92.334A Nondisplaced fracture of third metatarsal bone, right foot, initial encounter for closed fracture; S92.344A Nondisplaced fracture of fourth metatarsal bone, right foot, initial encounter for closed fracture
CPT/HCPCS: 73700

== ENCOUNTER 2023-09-27 02:49 | Emergency (ER) | payer MEDICARE, BC, SELFPAY ==
[2023-09-27 02:53] VITALS: BP 134/54; PULSE 71; RESP 22; TEMP 35.9; O2SAT 100; BMI 38.9
[2023-09-27 02:59] VITALS: BP 134/54; PULSE 71; RESP 22; TEMP 35.9; O2SAT 100
--- OUTSIDE RECORDS SUMMARY | 2023-09-27 03:11 | XMS RPT_ITS | CCD ---
Author Name Unknown Address [address] [place] [address] Organization [facility] Results Test Name Value Interpretation [...] BE BASED ON THE PRIMARY CLINICAL RECORDS. [facility] [employer]. provides no warranty or guarantee of the accuracy or completeness of information in this document.
--- NOTE | 2023-09-27 03:17 | CT_ITS ---
INDICATION: Head injury on anticoagulation EXAMINATION: CT BRAIN - CT Head or Brain W/O Contrast Injection TECHNIQUE: Multiple axial images were obtained of the head with sagittal and coronal reconstructed images. Individualized dose optimization techniques were used for this CT. IV contrast dosage and agent: None. COMPARISON: 08/26/2023 CT. FINDINGS: BRAIN PARENCHYMA: No evidence of an acute infarct or intracranial hemorrhage. No evidence of a mass. CSF SPACES: Moderate cerebral atrophy. CALVARIUM, SKULL BASE, PARANASAL SINUSES AND MASTOID AIR CELLS: No fracture. Mastoid air cells are clear. Visualized paranasal sinuses are unremarkable. Right posterior scalp hematoma. ORBITS: The globes, extraocular muscles, optic nerves and retrobulbar fat are unremarkable. CT/Brain/Head without Contrast IMPRESSION: No fracture or acute intracranial abnormality. Electronically Signed: Helio Marcus DO at 6:05 EST ,
--- NOTE | 2023-09-27 03:17 | CT_ITS ---
INDICATION: trauma EXAMINATION: CT CERVICAL SPINE - CT Spine Cervical W/O Contrast Injection TECHNIQUE: Helically acquired images were obtained of the cervical spine with sagittal and coronal reconstructed images. Individualized dose optimization techniques were used for this CT. IV contrast dosage and agent: None. COMPARISON: 06/13/2018 CT. FINDINGS: VERTEBRAE: No fracture or subluxation. The craniocervical junction is unremarkable. Mild degenerative changes. NECK SOFT TISSUES: The prevertebral soft tissues are unremarkable. No pathologically enlarged lymph nodes. LUNG APICES: Clear. CT/Spine Cervical without Contras IMPRESSION: No fracture or subluxation. Electronically Signed: Helio Marcus DO at 6:12 EST ,
--- NOTE | 2023-09-27 03:19 | EDS_ITS ---
HPI History of Present Illness Chief Complaint: Head Injury Narrative Narrative: 83-year-old male past medical history of atrial flutter, on Eliquis, presents via EMS from [facility] with head injury. He states the last thing he remembers that he was in bed sleeping and the next thing he knew, he woke up on the floor. He denies any injury. He was sent for evaluation because he had fallen out of bed and he is on a blood thinner. He denies any neck pain. No numbness or tingling of his arms or legs, no other symptoms. He states that he was recently admitted there because he is unable to take care of himself. [facility] Medical History (HFpEF) heart failure with preserved ejection fraction (12/12/20) Acute dyspnea Acute on chronic diastolic HF (heart failure) Acute respiratory failure with hypoxia Anemia Anemia of chronic renal failure, stage 3 (moderate) Anxiety and depression Atherosclerotic heart disease of [place] coronary artery without angina pectoris Atrial flutter Atrial flutter Atypical chest pain Back pain BMI 34.0-34.9,adult BPH (benign prostatic hyperplasia) BPPV (benign paroxysmal positional vertigo) Bradycardia Cardiac dysrhythmia Cardiology follow-up encounter CHF (congestive heart failure) CHF (congestive heart failure) CHF (congestive heart failure) Chronic anticoagulation De Quervain's tenosynovitis Debility Depression Dermatitis Diabetes mellitus Diabetic kidney disease Dizziness DM type 2 with diabetic peripheral neuropathy DVT (deep venous thrombosis) Dyslipidemia Dysphagia Essential (primary) hypertension Fall Flu vaccine need Fracture of great toe Gastric reflux Generalized weakness Gout Gout flare Health care maintenance History of echocardiogram History of edema History of GI bleed History of peptic ulcer History of renal calculi History of ulceration HLD (hyperlipidemia) Hyperkalemia Injury of head and neck Iron deficiency anemia Iron deficiency anemia due to chronic blood loss Kidney hematoma (12/08/20) Left knee pain Left leg DVT Loss of equilibrium Low iron Malaise Near syncope Orthostatic hypotension MACHELLE (obstructive sleep apnea) Pain of left lower extremity Paroxysmal atrial fibrillation Paroxysmal atrial flutter Pneumonia Polypharmacy 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 Presence of cardiac pacemaker Prostate disease Psoriasis Recurrent syncope (06/19/22) Renal calculi RLS (restless legs syndrome) Sex disorder Sick sinus syndrome Suicidal ideation SVT (supraventricular tachycardia) TIA (transient ischemic attack) Toe pain, left Type 2 diabetes mellitus with diabetic polyneuropathy Urolithiasis Venous insufficiency of both lower extremities Vertigo Walker as ambulation aid Weakness Wears glasses Home Medications finasteride 5 mg tablet 5 mg PO DAILY PROSTATE #90 tabs 11/03/18 [Rx Last Taken 08/26/23] ergocalciferol (vitamin D2) 1,250 mcg (50,000 unit) capsule 50,000 unit PO QMONTH SUPPLEMENT #14 caps 11/29/22 [Rx Last Taken 08/19/23] nitroglycerin 0.4 mg sublingual tablet 0.4 mg sublingual Q5M PRN Cardiac/Chest Pain 30 days #30 tabs 12/03/22 [Rx Last Taken Unknown] metoprolol succinate 25 mg tablet,extended release 24 hr 25 mg PO DAILY BLOOD PRESSURE 12/07/22 [History Last Taken 08/26/23] apixaban 2.5 mg tablet (Eliquis) 2.5 mg PO BID BLOOD THINNER #180 tabs 12/25/22 [Rx Last Taken 08/26/23] atorvastatin 10 mg tablet 10 mg PO QHS CHOLESTEROL #90 tabs 12/25/22 [Rx Last Taken 08/25/23] pen needle, diabetic 31 gauge x 3/16 (BD Ultra-Fine Mini Pen Needle) #100 ea 12/30/22 [Rx Last Taken Unknown] hydralazine 50 mg tablet 50 mg PO TID BLOOD PRESSURE 02/04/23 [History Last Taken 08/26/23] pramipexole 1 mg tablet (Mirapex) 2 mg (2 x 1 mg) PO QHS RESTLESS LEG SYNDROME #180 tabs 02/04/23 [Rx Last Taken 08/25/23] sertraline 25 mg tablet 25 mg PO DAILY DEPRESSION 02/04/23 [History Last Taken 08/26/23] fluticasone propionate 50 mcg/actuation nasal spray,suspension 2 spray intranasal DAILY NASAL CONGESTION #16 grams 06/24/23 [Rx Last Taken 08/25/23] progesterone micronized 100 mg capsule 100 mg PO QAM HORMONE REPLACEMENT #90 caps 07/03/23 [Rx Last Taken 08/25/23] lancets 30 gauge (OneTouch Delica Plus Lancet) #100 ea 07/22/23 [Rx Last Taken Unknown] walker (Ultra-Light Rollator misc) #1 ea 08/13/23 [Rx Last Taken Unknown] famotidine 40 mg tablet 40 mg PO DAILY ACID REFLUX #30 tabs 08/15/23 [Rx Last Taken 08/26/23] ferrous sulfate 325 mg (65 mg iron) tablet 325 mg PO TH supplement #90 tabs 08/15/23 [Rx Last Taken 08/21/23] dulaglutide 4.5 mg/0.5 mL subcutaneous pen injector 4.5 mg subcut FR DIABETES 08/20/23 [History Last Taken 08/22/23] insulin glargine-yfgn 100 unit/mL (3 mL) subcutaneous pen (Semglee (insulin glargine-yfgn) Pen) 32 unit subcut DAILY DIABETES 08/20/23 [History Last Taken 08/26/23] pantoprazole 40 mg tablet,delayed release (Protonix) 40 mg PO DAILY #60 tabs 08/23/23 [Rx Last Taken 08/26/23] rifaximin 550 mg tablet (Xifaxan) 550 mg PO BID 60 days #120 tabs 08/23/23 [Rx Last Taken 08/26/23] meclizine 25 mg tablet 25 mg PO Q8H PRN dizziness 08/26/23 [History Last Taken Unknown] acetaminophen 325 mg tablet 650 mg (2 x 325 mg) PO Q4H PRN fever or pain #1 TAB 08/29/23 [Rx Last Taken Unknown] lactulose 20 gram/30 mL oral solution 20 g (30 mL) PO DAILY #0 mL 08/29/23 [Rx Last Taken Unknown] Allergy/AdvReac Type Severity Reaction Status Date / Time hydrocodone bitartrate AdvReac Severe Other Verified 09/27/23 02:52 [From Vicodin] hydroxyzine AdvReac Severe Other Verified 09/27/23 02:52 doxycycline AdvReac Intermediate Shortness Verified 09/27/23 02:52 of breath (had CHF also, may not be true allergy Family History Father Diabetes Hypertension Cancer Lung cancer Mother Hypertension CVA (cerebral vascular accident) Sister Diabetes Son Diabetes Surgical History History of cardioversion (2016) History of cataract surgery History of left heart catheterization (02/16/13) History of lithotripsy (11/2020) History of loop recorder (06/26/22) History of radiofrequency ablation procedure for cardiac arrhythmia (02/05/06) history of right knee cap fracture History of right knee surgery Status post laser lithotripsy of ureteral calculus Status post left foot surgery STENT PLACEMENT FOR KIDNEY STONE Social History household members: spouse housing: house Smoking Status: Never smoker how long ago did patient quit smokin second hand exposure: No alcohol intake: never substance use type: does not use caffeine: No what type of physical activity do you participate in: none seatbelt use: always do you feel safe at home: Yes ROS ROS ED ROS Narrative Constitutional: No fever, no chills. HEENT: No sore throat. No neck pain. No loss of vision. No rhinorrhea. Cardiovascular: No chest pain. No palpitations. No pedal edema. Respiratory: No cough, no shortness of breath. Abdominal: No abdominal pain. No nausea. No vomiting. Genitourinary: No dysuria. No hematuria. Musculoskeletal: No myalgias. No arthralgias. Neurologic: No headaches. No dizziness. No lightheadedness. Skin: No rash. No change in color. Psychiatric: No depression. No anxiety. EXAM Physical Exam Narrative Exam Narrative: Afebrile. Vital signs noted. GCS 15. ABCs intact. HEENT: Normocephalic. Positive hematoma more towards right occiput. No rapid expansion. PERRL, EOMI. Neck soft and supple. No point tenderness or step off. Currently in c-collar. Cardiovascular: Regular rate and rhythm. No murmurs, rubs, or gallops appreciated. Respiratory: No tachypnea. Lungs clear to auscultation bilaterally. Gastrointestinal: Abdomen soft, nontender, with normoactive bowel sounds. No rebound or guarding. Neurological: Awake. Alert. Nonfocal, nonlateralizing. Able to raise arms above head. Oriented to person, place, and time. Skin: No rash. Normal color. No pallor. Musculoskeletal: No pedal edema. Full range of motion extremities. Const Vital Signs: 09/27/23 02:53 09/27/23 02:59 02/10/24 02:59 Temperature 96.6 F L 96.6 F L Temperature Source Temporal Temporal Pulse Rate 71 71 Respiratory Rate 22 H 22 H Respiratory Effort Normal Respiratory Pattern Normal Blood Pressure 134/54 H 134/54 H Blood Pressure Mean 80 80 Pulse Ox 100 100 100 Oxygen Delivery Method Room Air Room Air Room Air MDM MDM MDM Narrative Medical decision making narrative: Concern is for closed head injury versus intracranial hemorrhage as the patient is on anticoagulation. Also concerning is cervical strain versus fracture. I do not feel laboratory work is indicated. CTs were obtained of the head and of the cervical spine. I reviewed the CT reports of the CT of the brain which shows no evidence of skull fracture, no intracranial hemorrhage. I also reviewed the CT report for the cervical spine which shows no evidence of an acute fracture as well. At this point in time, I feel he be discharged to follow-up with his primary care provider at the residential facility. Disposition is discharged in stable condition. Radiography Diagnostic Testing: Clinical Impression(s) from Imaging Studies Brain CT 09/27/23 03:17 IMPRESSION: No fracture or acute intracranial abnormality. Electronically Signed: Helio Marcus DO at 6:05 EST , Cervical Spine CT 09/27/23 03:17 IMPRESSION: No fracture or subluxation. Electronically Signed: Helio Marcus DO at 6:12 EST , Discharge Plan Triage Chief Complaint: Head Injury ED Provider: Choco Salazar Dx/Rx/DC Orders Clinical Impression: Fall from bed, Hematoma of occipital region of scalp, Anticoagulant long-term use, Closed head injury Instructions: ED Scalp Contusion, ED Head Injury (Adult), ED Hematoma Prescriptions: No Action pramipexole [Mirapex] 1 mg tablet 2 mg PO QHS Qty: 180 3RF nitroglycerin 0.4 mg Tablet, Sublingual 0.4 mg sublingual Q5M PRN (Reason: Cardiac/Chest Pain) 30 Days Qty: 30 0RF metoprolol succinate 25 mg tablet extended release 24 hr 25 mg PO DAILY hydralazine 50 mg tablet 50 mg PO TID sertraline 25 mg tablet 25 mg PO DAILY dulaglutide 4.5 mg/0.5 mL pen injector 4.5 mg SC FR insulin glargine-yfgn [Semglee(insulin glarg-yfgn)Pen] 100 unit/mL (3 mL) insulin pen 32 unit SUBCUT DAILY Xifaxan 550 mg Tablet 550 mg PO BID 60 Days Qty: 120 0RF pantoprazole [Protonix] 40 mg tablet,delayed release (DR/EC) 40 mg PO DAILY Qty: 60 0RF meclizine 25 mg tablet 25 mg PO Q8H PRN (Reason: dizziness) lactulose 20 gram/30 mL Solution 20 g PO DAILY Qty: 0 0RF acetaminophen 325 mg tablet 650 mg PO Q4H PRN (Reason: fever or pain) Qty: 1 0RF finasteride 5 mg tablet 5 mg PO DAILY Qty: 90 3RF ergocalciferol (vitamin D2) 1,250 mcg (50,000 unit) capsule 50,000 unit PO QMONTH Qty: 14 1RF Eliquis 2.5 mg tablet 2.5 mg PO BID Qty: 180 3RF atorvastatin 10 mg tablet 10 mg PO QHS Qty: 90 3RF (DME) pen needle, diabetic [BD Ultra-Fine Mini Pen Needle] 31 gauge x 3/16 needle See Rx Instructions .Route Qty: 100 4RF Rx Instructions: As directed fluticasone propionate 50 mcg/actuation spray,suspension 2 spray intranasal DAILY Qty: 16 3RF Hold Instructions: MD Ordered Patient Comments: PT STATES HE USES AT NIGHT progesterone micronized 100 mg capsule 100 mg PO QAM Qty: 90 3RF (DME) lancets [OneTouch Delica Plus Lancet] 30 gauge misc See Rx Instructions .Route Qty: 100 4RF Rx Instructions: As directed; Check BG 2-3 times daily for DMII (DME) Ultra-Light Rollator Misc See Rx Instructions .Route Qty: 1 0RF Rx Instructions: As directed famotidine 40 mg tablet 40 mg PO DAILY Qty: 30 1RF ferrous sulfate 325 mg (65 mg iron) tablet 325 mg PO TH Qty: 90 1RF Rx Instructions: thursdays only Primary Care Provider: Saima Thompson Referrals: Saima Thompson MD [Primary Care Provider] - 1-2 Days if not improving Disposition Disposition: [facility]way Facility Discharge Location: [facility]
[2023-09-27 06:00] VITALS: RESP 18
[2023-09-27 07:09] VITALS: BP 133/60; PULSE 70; RESP 18; TEMP 36.2; O2SAT 98
== END 2023-09-27 08:47 | disposition skilled nursing facility (03) ==
PROVIDERS: Emergency Provider Emergency Medicine; PCP Internal Medicine; Visit Provider Emergency Medicine
DX: S00.03XA Contusion of scalp, initial encounter (principal); I50.33 Acute on chronic diastolic (congestive) heart failure; I48.0 Paroxysmal atrial fibrillation; E11.9 Type 2 diabetes mellitus without complications; G47.33 Obstructive sleep apnea (adult) (pediatric); W06.XXXA Fall from bed, initial encounter; Z79.01 Long term (current) use of anticoagulants; Z86.718 Personal history of other venous thrombosis and embolism; Z95.0 Presence of cardiac pacemaker; Z86.73 Personal history of transient ischemic attack (TIA), and cerebral infarction without residual deficits
CPT/HCPCS: 70450; 72125; 99282

== ENCOUNTER 2023-10-09 14:00 | Outpatient (RCR) | payer MEDICARE, BC, SELFPAY ==
[2023-10-07 08:31] VITALS: BP 128/83; PULSE 70; RESP 18; TEMP 35.4; BMI 33.0
--- NOTE | 2023-10-07 09:07 | HP.PCM_ITS ---
History of Present Illness Date of Service: 10/07/23 History of Wound: New onset pressure ulceration left heel Progress of Wound: 83-year-old diabetic male with history of left partial second digit amputation presents today after residing in a snf with new onset development of left heel wound. Patient has history of dementia and poor hearing. Patient confused at appointment today. Denies any fever chills nausea vomiting chest pain calf pain shortness of breath. Patient uncertain of wound etiology. Patient has no other complaints. Wound nonpainful. Patient notes numbness, paresthesia with burning, edema to bilateral lower extremity. [facility] Medical History (Updated 10/07/23 @ 09:[address] Edward Carr, VENITA) (HFpEF) heart failure with preserved ejection fraction (12/12/20) Acute dyspnea Acute on chronic diastolic HF (heart failure) Acute respiratory failure with hypoxia Anemia Anemia of chronic renal failure, stage 3 (moderate) Anxiety and depression Atherosclerotic heart disease of solomon coronary artery without angina pectoris Atrial flutter Atrial flutter Atypical chest pain Back pain BMI 34.0-34.9,adult BPH (benign prostatic hyperplasia) BPPV (benign paroxysmal positional vertigo) Bradycardia Cardiac dysrhythmia Cardiology follow-up encounter CHF (congestive heart failure) CHF (congestive heart failure) CHF (congestive heart failure) Chronic anticoagulation De Quervain's tenosynovitis Debility Depression Dermatitis Diabetes mellitus Diabetic kidney disease Dizziness DM type 2 with diabetic peripheral neuropathy DVT (deep venous thrombosis) Dyslipidemia Dysphagia Essential (primary) hypertension Fall Flu vaccine need Fracture of great toe Gastric reflux Generalized weakness Gout Gout flare Health care maintenance History of echocardiogram History of edema History of GI bleed History of peptic ulcer History of renal calculi History of ulceration HLD (hyperlipidemia) Hyperkalemia Injury of head and neck Iron deficiency anemia Iron deficiency anemia due to chronic blood loss Kidney hematoma (12/08/20) Left knee pain Left leg DVT Loss of equilibrium Low iron Malaise Near syncope Orthostatic hypotension MACHELLE (obstructive sleep apnea) Pain of left lower extremity Paroxysmal atrial fibrillation Paroxysmal atrial flutter Pneumonia Polypharmacy 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 Presence of cardiac pacemaker Prostate disease Psoriasis Recurrent syncope (06/19/22) Renal calculi RLS (restless legs syndrome) Sex disorder Sick sinus syndrome Suicidal ideation SVT (supraventricular tachycardia) TIA (transient ischemic attack) Toe pain, left Type 2 diabetes mellitus with diabetic polyneuropathy Urolithiasis Venous insufficiency of both lower extremities Vertigo Walker as ambulation aid Weakness Wears glasses Home Medications finasteride 5 mg tablet 5 mg PO DAILY PROSTATE #90 tabs 11/03/18 [Rx Last Taken 08/26/23] ergocalciferol (vitamin D2) 1,250 mcg (50,000 unit) capsule 50,000 unit PO QMONTH SUPPLEMENT #14 caps 11/29/22 [Rx Last Taken 08/19/23] nitroglycerin 0.4 mg sublingual tablet 0.4 mg sublingual Q5M PRN Cardiac/Chest Pain 30 days #30 tabs 12/03/22 [Rx Last Taken Unknown] metoprolol succinate 25 mg tablet,extended release 24 hr 25 mg PO DAILY BLOOD PRESSURE 12/07/22 [History Last Taken 08/26/23] apixaban 2.5 mg tablet (Eliquis) 2.5 mg PO BID BLOOD THINNER #180 tabs 12/25/22 [Rx Last Taken 08/26/23] atorvastatin 10 mg tablet 10 mg PO QHS CHOLESTEROL #90 tabs 12/25/22 [Rx Last Taken 08/25/23] pen needle, diabetic 31 gauge x 3/16 (BD Ultra-Fine Mini Pen Needle) #100 ea 12/30/22 [Rx Last Taken Unknown] hydralazine 50 mg tablet 50 mg PO TID BLOOD PRESSURE 02/04/23 [History Last Taken 08/26/23] pramipexole 1 mg tablet (Mirapex) 2 mg (2 x 1 mg) PO QHS RESTLESS LEG SYNDROME #180 tabs 02/04/23 [Rx Last Taken 08/25/23] sertraline 25 mg tablet 25 mg PO DAILY DEPRESSION 02/04/23 [History Last Taken 08/26/23] fluticasone propionate 50 mcg/actuation nasal spray,suspension 2 spray intra nasal DAILY NASAL CONGESTION #16 grams 06/24/23 [Rx Last Taken 08/25/23] progesterone micronized 100 mg capsule 100 mg PO QAM HORMONE REPLACEMENT #90 caps 07/03/23 [Rx Last Taken 08/25/23] lancets 30 gauge (OneTouch Delica Plus Lancet) #100 ea 07/22/23 [Rx Last Taken Unknown] walker ([facility]) #1 ea 12/27/23 [Rx Last Taken Unknown] famotidine 40 mg tablet 40 mg PO DAILY ACID REFLUX #30 tabs 08/15/23 [Rx Last Taken 08/26/23] ferrous sulfate 325 mg (65 mg iron) tablet 325 mg PO TH supplement #90 tabs 08/15/23 [Rx Last Taken 08/21/23] pantoprazole 40 mg tablet,delayed release (Protonix) 40 mg PO DAILY #60 tabs 08/23/23 [Rx Last Taken 08/26/23] rifaximin 550 mg tablet (Xifaxan) 550 mg PO BID 60 days #120 tabs 08/23/23 [Rx Last Taken 08/26/23] meclizine 25 mg tablet 25 mg PO Q8H PRN dizziness 08/26/23 [History Last Taken Unknown] acetaminophen 325 mg tablet 650 mg (2 x 325 mg) PO Q4H PRN fever or pain #1 TAB 08/29/23 [Rx Last Taken Unknown] lactulose 20 gram/30 mL oral solution 20 g (30 mL) PO DAILY #0 mL 08/29/23 [Rx Last Taken Unknown] Bydureon 10/07/23 [History Last Taken Unknown] albuterol sulfate 2.5 mg/3 mL (0.083 %) solution for nebulization 2.5 mg inhalation Q4H PRN shortness of breath or wheezing 10/07/23 [History Last Taken Unknown] aluminum-mag hydroxide-simethicone 200 mg-200 mg-20 mg/5 mL oral susp (Antacid Plus Anti-Gas) 5 ml PO Q3H PRN indigestion 10/07/23 [History Last Taken Unknown] bisacodyl 10 mg rectal suppository 10 mg TN DAILY PRN constipation 10/07/23 [History Last Taken Unknown] furosemide 20 mg tablet (Lasix) 20 mg PO DAILY 10/07/23 [History Last Taken Unknown] guaifenesin 200 mg/5 mL oral liquid 200 mg PO Q6H PRN cough 10/07/23 [History Last Taken Unknown] insulin glargine 100 unit/mL (3 mL) subcutaneous pen (Lantus Solostar U-100 Insulin) 42 unit subcut BID 10/07/23 [History Last Taken Unknown] sertraline 25 mg tablet 25 mg PO DAILY 10/07/23 [History Last Taken Unknown] Allergy/AdvReac Type Severity Reaction Status Date / Time hydrocodone bitartrate AdvReac Severe Other Verified 09/27/23 02:52 [From Vicodin] hydroxyzine AdvReac Severe Other Verified 09/27/23 02:52 doxycycline AdvReac Intermediate Shortness Verified 09/27/23 02:52 of breath (had CHF also, may not be true allergy Family History Father Diabetes Hypertension Cancer Lung cancer Mother Hypertension CVA (cerebral vascular accident) Sister Diabetes Son Diabetes Surgical History History of cardioversion (2015) History of cataract surgery History of left heart catheterization (02/16/13) History of lithotripsy (11/2020) History of loop recorder (06/26/22) History of radiofrequency ablation procedure for cardiac arrhythmia (02/05/06) history of right knee cap fracture History of right knee surgery Status post laser lithotripsy of ureteral calculus Status post left foot surgery STENT PLACEMENT FOR KIDNEY STONE Social History household members: spouse housing: house Smoking Status: Never smoker how long ago did patient quit smokin second hand exposure: No alcohol intake: never substance use type: does not use caffeine: No what type of physical activity do you participate in: none seatbelt use: always do you feel safe at home: Yes ROS Constitutional Constitutional: Denies chills, fever(s) or poor appetite Eyes Eyes: Denies acute decrease in peripheral vision, change in eye color or change in vision ENT HEENT: Denies abnormal hearing, bleeding gums or dysphagia Cardiovascular Cardiovascular: Denies abdominal bloating, abdominal edema or bluish discolo ration of hand/feet Respiratory/Chest Respiratory/Chest: Denies change in mental status, change in phlegm color or difficulty clearing secretions Gastrointestinal Gastrointestinal: Denies anorexia, belching or coffee ground emesis Genitourinary Genitourinary: Denies abdominal discomfort, anuria or contractions Vital Signs Vital Signs Vital Signs: 10/07/23 08:31 Temperature 95.8 F L Temperature Source Temporal Pulse Rate 70 Respiratory Rate 18 Blood Pressure 128/83 H Blood Pressure Mean 98 Blood Pressure Source Monitor Blood Pressure Position Semi-Fowlers Blood Pressure Location Left Arm Weight Weight: 110.677 kg Body Mass Index (BMI) 33.0 Physical Exam Narrative Vascular: Diminished DP PT pulses, monophasic on Doppler examination bilaterally. Atrophic skin changes noted. Left heel wound noted. (Skin thinning, shiny, taut appearance, absent digital hair growth) Neurologic: Light touch protective sensation absent to bilateral feet. Dermatologic: Full-thickness wound noted to the left posterior heel. Wound demonstrates overlying bullous predebridement. Postdebridement wound demonstrates fibronecrotic granular base (). Post debridement the wound had clean skin edges. No deep probing or undermining. No acute signs of infection. Toenails x 5 to the right foot and toenails x 5 to the left foot elongated thickened with subungual debris. Musculoskeletal: Left partial second digit amputation noted. Muscular strength diminished 4 out of 5 to bilateral lower extremity compartments. No gross deformity contributing to wound formation. Const alert and oriented x3 Debridement Note Debridement Note Post-Debridement Measurements and Additional Note: Post-Debridement Measurements/Treatment - Nurse 1 - General Ulcer Assessment Start: 10/07/23 08:30 Freq: Status: Active Protocol: MICHELLE.LOWEXT Activity Type Activity Date Activity User E-sign Co-sign Detail Recorded Client Recorded Date Recorded By Document 10/07/23 08:31 Desktop 10/07/23 08:39 10/07/23 08:31 - Today's Visit Information Type of service Initial Visit Arrival Mode Wheelchair Transfer Assistance Manual Patient Identification Verified (Name & Yes ) Patient Requires Transmission-Based No Precautions Height and Weight Height 6 ft Weight 110.677 kg Weight in Pounds 244.0 lbs Body Mass Index (BMI) 33.0 BMI Classification Obese BSA - Bart 2.32 Vital Signs Temperature (97.8 F-99.1 F) 95.8 F L Temperature Source Temporal Pulse Rate (60-100) 70 Pulse Location Monitor Respiratory Rate (12-18) 18 Respiratory rate source Observation Blood Pressure (90/60-120/80) 128/83 H Blood Pressure Mean 98 Source Monitor Position Semi-Fowlers Blood Pressure Location Left Arm History Since Last Visit- (Skip if this is Patient's initial visit) Have you changed medications since your No last visit? Any new allergies or adverse reactions No Had a fall/change in ADL's that may No increase risk of falls Signs or symptoms of abuse and/or No neglect since last visit Have you been in the hospital since your No last visit? Has dressing in place as prescribed No Has compression in place as prescribed No Has offloadiing in place as prescribed Yes Experienced any changes in pain level or No management Left Footwear Regular Shoe Right Footwear Surgical Shoe with pressure relief insole Pain Scale: 0-10 Numeric Is Patient Pain Free? Yes Lower Extremity Assessment/ Foot Assessment/ Toe Nail Assessment Right -Posterior Tibial Palpable No -Posterior Tibial Doppler Monophasic -Dorsalis Pedis Palpable No -Dorsalis Pedis Doppler Multiphasic -Hair Growth on Legs Yes -Hair Growth on Toes No -Temperature of Extremity Cool -Capillary Refill Less than 3 Seconds -Dependent Rubor No -Blanched when Elevated No -Lipodermatosclerosis No -Other Deformity No -Prior Foot Ulcer No -Charcot Joint No -Prior Amputation No -Thick Yes -Discolored Yes -Deformed Yes -Improper Length & Hygeine No Left -Posterior Tibial Palpable No -Posterior Tibial Doppler Monophasic -Dorsalis Pedis Palpable No -Dorsalis Pedis Doppler Multiphasic -Hair Growth on Legs Yes -Hair Growth on Toes No -Temperature of Extremity Cool -Capillary Refill Less than 3 Seconds -Dependent Rubor No -Blanched when Elevated No -Lipodermatosclerosis No -Thick Yes -Discolored Yes -Deformed Yes -Improper Length & Hygeine No Neuropathy Assessment Feet - Top Side and Bottom <Entered> (a) Communication Assessment Preferred language Sudanese Brazer Helper Induction Required No Able to Read Yes Able to Write Yes Communication Tools None Right Hearing Abillity Hard of Hearing Left Hearing Abillity Hard of Hearing Visual Assistive Devices Glasses Teaching Assessment Preferences Verbal,Written, Demonstration Barriers to Learning Unable to Comprehend Readiness To Learn Fair Willingness to Engage in Self Management Med Activies Readiness to Engage in Self Management Med Activities Anxiety Level Calm Cooperation Cooperative Perception Coherent Interest in Health Problem Asks Questions Education Importance Acknowledges Need Does Patient Smoke tobacco or other No substances Smoking Status Never smoker Functional Assessment Recent Decline in Ability to Perform Ambulation, Bathing,Lower Body Dressing, Toileting, Transferring, Upper Body Dressing Culture/Anabaptist/Edge Sander Cultural/Anabaptist Needs that may affect No Treatment Plan Would you allow our hospital staining machine operator to No meet you for the purpose of spiritual/ emotional support? Edge Sander to contact place of mandaen No (a) 1 - + throughout WC - Nurse 1 - General Ulcer Measurement Start: 10/07/23 08:30 Freq: Status: Active Protocol: Activity Type Activity Date Activity User E-sign Co-sign Detail Recorded Client Recorded Date Recorded By Document 10/07/23 08:31 RB Desktop 10/07/23 08:39 RB 10/07/23 08:31 Wound Center Nurse 1 1. L posterior heel -Combined with other wound No -Current Size (cm) - Length 0.1 -Current Size (cm) - Width 0.1 -Current Size (cm) - Depth 0.1 -Total Square Cm 0.01 -Photo Taken Yes -Tunneling No -Undermining/Tunneling No -Circular Undermining No -Exudate Amt None Present -Wound Margin Distinct, Outline Attached -Granulation Amt Large (67-100%) -Granulation Quality [place] -Slough/Fibrin No -Structure Exposed N/A -Texture (Bailey-wound Skin Appearance) Assessed -Moisture (Bailey-wound Skin Appearance) Assessed -Color (Bailey-wound Skin Appearance) Assessed -Temperature (Bailey-wound Skin No Abnormality Appearance) (Pt Warm) -Tenderness on Palpation (Bailey-wound No Skin Appearance) -Ulcer Cleansing Wound Cleanser -Foul Odor after Cleansing No -Anesthetic Used 5% Lidocaine Gel Lower Limb Edema Present Yes Right Calf (cm) 37.2 Right Ankle (cm) 27.8 Left Calf (cm) 36.4 Left Ankle (cm) 28.3 - Nurse 2 - General Ulcer CM Notes Start: 10/07/23 08:30 Freq: Status: Active Protocol: Activity Type Activity Date Activity User E-sign Co-sign Detail Recorded Client Recorded Date Recorded By Document 10/07/23 09:01 JF Laptop 10/07/23 09:03 JF 10/07/23 09:01 Wound Center Nurse 2 1. L posterior heel -Time 09:02 -Correct Patient Yes -Correct Side, Site, Position Yes -Correct Procedure Yes -Procedure Performed Yes -Type of Procedure Debridement -Clinical Debridement Subcutaneous -Tissue Removed Subcutaneous -Post Debridement (cm) - Length 0.8 -Post Debridement (cm) - Width 2.1 -Post Debridement (cm) - Depth 0.1 -Total Square (Post) (cm) 1.68 -Area of Debridement (cm) - Length 0.8 -Area of Debridement (cm) - Width 2.1 -Total Square (Area) (cm) 1.68 -Tunneling No -Undermining/Tunneling No -Circular Undermining No -Wound/Ulcer Outcome Not Healed -Ulcer Cleansing Rinsed/ Irrigated with Saline -Foul Odor after Cleansing No -Bioengineered Tissue No -Bleeding Controlled with Pressure -Treatment Response Procedure Tolerated Well -Offloading No -Debridement - Subq, 1st 20sq cm Yes Pain Scale: 0-10 Numeric Is Patient Pain Free? Yes Assessment/Plan Assessment/Plan (1) Other specified peripheral vascular diseases: CODE(S): I73.89 - Other specified peripheral vascular diseases PLAN: Exam performed Patient has Q9 findings with numbness, paresthesia, edema, atrophic skin changes, peripheral neuropathy and peripheral arterial disease with diminished pulses. Toenails x 10 were debrided in length and thickness without incident using sterile nail nippers. Patient has new onset left heel wound. Appears noninfected today. Diminished arterial pulses noted. Arterial studies ordered. Left heel wound was debrided excisionally down to including level subcutaneous tissue of all nonviable tissue using combination of pickups and a 15 blade as well as a 3 mm curette. Pre and postdebridement measurements documented nursing notes. Patient tolerated procedure well. Hemostasis obtained with light compression. No anesthesia due to neuropathy. Recommend daily dressing changes with Betadine DSD versus bordered gauze. Recommend daily use of PRAFO boots to offload bilateral heels. Nursing facility will apply these on a daily basis and patient is in supine position on his bed to prevent any additional pressure injury. Patient follow-up weekly. 22 minutes spent with patient examining patient, reviewing chart and clinical information during this visit. (2) Non-pressure chronic ulcer of other part of left foot with fat layer exposed: CODE(S): L97.522 - Non-pressure chronic ulcer of other part of left foot with fat layer exposed (3) Acute painful diabetic polyneuropathy: CODE(S): E11.42 - Type 2 diabetes mellitus with diabetic polyneuropathy (4) Tinea unguium: CODE(S): B35.1 - Tinea unguium
--- NOTE | 2023-10-09 13:40 | ART_ITS ---
Reason For Study: PVD, L heel ulcer Procedure A bilateral lower extremity continuous wave Doppler with analog waveform analysis,segmental pressures,and ankle brachial indexes without exercise. Left Segmental Pressures Left brachial= 125mmHg. Left digit = 80 mmHg. PT and DP are noncompressible. The left dorsalis pedis waveforms are triphasic. The left posterior tibial artery waveforms are triphasic. Right Segmental Pressures Right brachial= 125mmHg. Right digit = 71 mmHg. PT and DP are noncompressible. The right dorsalis pedis waveforms are triphasic. The right posterior tibial artery waveforms are triphasic. Indices The right digital-brachial index is .57. PT and DP are noncompressible. The left digital-brachial index is .64. PT and DP are noncompressible. VL/Lower Ext Art Exam w/o Exercis Interpretation Summary Triphasic Doppler waveforms are noted at ankle level bilaterally. Pulse-volume recordings appear satisfactory at all levels bilaterally. Resting ankle-brachial indices could no t be determined on either side due to the non-compressibility of the vasculature at ankle level bi laterally. Digital- brachial indices are mildly diminished bilaterally. There is evidence of arterial calcification at ankle level bilaterally. There i s evidence of mild arterial occlusive disease in the lower extremities bilaterally. Ordering Physician: Edward Carr Performed By: Dante Shultz RVT
== END 2023-10-16 23:59 | disposition home or self-care (01) ==
LOC: WC 14:00
PROVIDERS: PCP Internal Medicine; Referring Provider Podiatrist; Visit Provider Podiatrist
DX: E11.621 Type 2 diabetes mellitus with foot ulcer (principal); L97.522 Non-pressure chronic ulcer of other part of left foot with fat layer exposed; I50.32 Chronic diastolic (congestive) heart failure; I13.0 Hypertensive heart and chronic kidney disease with heart failure and stage 1 through stage 4 chronic kidney disease, or unspecified chronic kidney disease; F03.90 Unspecified dementia, unspecified severity, without behavioral disturbance, psychotic disturbance, mood disturbance, and anxiety; E11.51 Type 2 diabetes mellitus with diabetic peripheral angiopathy without gangrene; E11.22 Type 2 diabetes mellitus with diabetic chronic kidney disease; E11.42 Type 2 diabetes mellitus with diabetic polyneuropathy; N18.30 Chronic kidney disease, stage 3 unspecified; E78.5 Hyperlipidemia, unspecified; D63.1 Anemia in chronic kidney disease; Z79.01 Long term (current) use of anticoagulants; I25.10 Atherosclerotic heart disease of native coronary artery without angina pectoris; D50.0 Iron deficiency anemia secondary to blood loss (chronic); Z79.84 Long term (current) use of oral hypoglycemic drugs; Z79.899 Other long term (current) drug therapy; B35.1 Tinea unguium
CPT/HCPCS: 11042; 93923; 99213; G0463

== ENCOUNTER 2023-10-13 14:33 | Inpatient (IN) | payer MEDICARE, BC, SELFPAY ==
[2023-10-13] VITALS (13 sets, daily range): BP systolic 108–169; BP diastolic 57–83; PULSE 74–103; RESP 14–26; TEMP 36.2–36.7; O2SAT 93–96; BMI 33.6
--- NOTE | 2023-10-13 14:43 | EKG12_ITS ---
Test Reason : SOB Blood Pressure : / mmHG Vent. Rate : 088 BPM Atrial Rate : 202 BPM P-R Int : 000 ms QRS Dur : 086 ms QT Int : 382 ms P-R-T Axes : 000 059 034 degrees QTc Int : 462 ms Atrial flutter with variable A-V block Nonspecific ST and T wave abnormality Abnormal ECG Confirmed by AVILA DUNCAN, ALBERTO ([id number]), video effects editor LILIA BATRES ([id number]) on 10/20/2023 9:58:27 AM Referred By: Confirmed By:SCARLETT GRAMAJO MD
--- NOTE | 2023-10-13 14:47 | EX.ED.DYSGE1 ---
HPI History of Present Illness Chief Complaint: Abn Labs Informant: SNF Narrative Narrative: Patient sent in from [facility] secondary to decreasing mental status. History is limited. They report patient has had increasing shortness of breath, confusion, and increasing ammonia levels. EMS reportedly did give a DuoNeb treatment and route secondary to work of breathing but he was not hypoxic. Patient will open his eyes to voice. When asked if anything is hurting him he will shake his head no. PFSH [facility] Medical History (Updated 10/13/23 @ 16:[address] Zo Yin MD) (HFpEF) heart failure with preserved ejection fraction (12/12/20) Acute dyspnea Acute on chronic diastolic HF (heart failure) Acute respiratory failure with hypoxia Anemia of chronic renal failure, stage 3 (moderate) Anxiety and depression Atherosclerotic heart disease of [place] coronary artery without angina pectoris Atrial flutter Atypical chest pain Back pain BMI 34.0-34.9,adult BPH (benign prostatic hyperplasia) BPPV (benign paroxysmal positional vertigo) Bradycardia Cardiac dysrhythmia Cardiology follow-up encounter CHF (congestive heart failure) Chronic anticoagulation De Quervain's tenosynovitis Debility Depression Dermatitis Diabetic kidney disease Dizziness DM type 2 with diabetic peripheral neuropathy DVT (deep venous thrombosis) Dyslipidemia Dysphagia Essential (primary) hypertension Fall Flu vaccine need Fracture of great toe Gastric reflux Generalized weakness Gout Health care maintenance History of echocardiogram History of edema History of GI bleed History of peptic ulcer History of renal calculi History of ulceration HLD (hyperlipidemia) Hyperkalemia Injury of head and neck Iron deficiency anemia Iron deficiency anemia due to chronic blood loss Kidney hematoma (12/08/20) Left knee pain Left leg DVT Loss of equilibrium Low iron Malaise Near syncope Orthostatic hypotension MACHELLE (obstructive sleep apnea) Pain of left lower extremity Paroxysmal atrial fibrillation Paroxysmal atrial flutter Pneumonia Polypharmacy 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 Presence of cardiac pacemaker Prostate disease Psoriasis Recurrent syncope (06/19/22) Renal calculi RLS (restless legs syndrome) Sex disorder Sick sinus syndrome Suicidal ideation SVT (supraventricular tachycardia) TIA (transient ischemic attack) Toe pain, left Type 2 diabetes mellitus with diabetic polyneuropathy Urolithiasis Venous insufficiency of both lower extremities Vertigo Walker as ambulation aid Weakness Wears glasses Home Medications finasteride 5 mg tablet 5 mg PO DAILY PROSTATE #90 tabs 03/19/19 [Rx Last Taken 08/26/23] ergocalciferol (vitamin D2) 1,250 mcg (50,000 unit) capsule 50,000 unit PO QMONTH SUPPLEMENT #14 caps 11/29/22 [Rx Last Taken 08/19/23] nitroglycerin 0.4 mg sublingual tablet 0.4 mg sublingual Q5M PRN Cardiac/Chest Pain 30 days #30 tabs 12/03/22 [Rx Last Taken Unknown] metoprolol succinate 25 mg tablet,extended release 24 hr 25 mg PO DAILY BLOOD PRESSURE 12/07/22 [History Last Taken 08/26/23] apixaban 2.5 mg tablet (Eliquis) 2.5 mg PO BID BLOOD THINNER #180 tabs 12/25/22 [Rx Last Taken 08/26/23] atorvastatin 10 mg tablet 10 mg PO QHS CHOLESTEROL #90 tabs 12/25/22 [Rx Last Taken 08/25/23] pen needle, diabetic 31 gauge x 3/16 (BD Ultra-Fine Mini Pen Needle) #100 ea 12/30/22 [Rx Last Taken Unknown] hydralazine 50 mg tablet 50 mg PO TID BLOOD PRESSURE 02/04/23 [History Last Taken 08/26/23] pramipexole 1 mg tablet (Mirapex) 2 mg (2 x 1 mg) PO QHS RESTLESS LEG SYNDROME #180 tabs 02/04/23 [Rx Last Taken 08/25/23] fluticasone propionate 50 mcg/actuation nasal spray,suspension 2 spray intranasal DAILY NASAL CONGESTION #16 grams 06/24/23 [Rx Last Taken 08/25/23] progesterone micronized 100 mg capsule 100 mg PO QAM HORMONE REPLACEMENT #90 caps 07/03/23 [Rx Last Taken 08/25/23] lancets 30 gauge (OneTouch Delica Plus Lancet) #100 ea 07/22/23 [Rx Last Taken Unknown] fanny (Ultra-Light Rollator misc) #1 ea 08/13/23 [Rx Last Taken Unknown] famotidine 40 mg tablet 40 mg PO DAILY ACID REFLUX #30 tabs 08/15/23 [Rx Last Taken 08/26/23] ferrous sulfate 325 mg (65 mg iron) tablet 325 mg PO TH supplement #90 tabs 08/15/23 [Rx Last Taken 08/21/23] pantoprazole 40 mg tablet,delayed release (Protonix) 40 mg PO DAILY #60 tabs 08/23/23 [Rx Last Taken 08/26/23] meclizine 25 mg tablet 25 mg PO Q8H PRN dizziness 08/26/23 [History Last Taken Unknown] acetaminophen 325 mg tablet 650 mg (2 x 325 mg) PO Q4H PRN fever or pain #1 TAB 08/29/23 [Rx Last Taken Unknown] albuterol sulfate 2.5 mg/3 mL (0.083 %) solution for nebulization 2.5 mg inhalation Q4H PRN shortness of breath or wheezing 10/07/23 [History Last Taken Unknown] aluminum-mag hydroxide-simethicone 200 mg-200 mg-20 mg/5 mL oral susp (Antacid Plus Anti-Gas) 30 ml PO Q4H PRN indigestion 10/07/23 [History Last Taken Unknown] bisacodyl 10 mg rectal suppository 10 mg UT DAILY PRN constipation 10/07/23 [History Last Taken Unknown] furosemide 20 mg tablet (Lasix) 20 mg PO DAILY 10/07/23 [History Last Taken Unknown] guaifenesin 200 mg/5 mL oral liquid 200 mg PO Q6H PRN cough 10/07/23 [History Last Taken Unknown] insulin glargine 100 unit/mL (3 mL) subcutaneous pen (Lantus Solostar U-100 Insulin) 42 unit subcut DAILY 10/07/23 [History Last Taken Unknown] sertraline 25 mg tablet 25 mg PO DAILY 10/07/23 [History Last Taken Unknown] exenatide microspheres 2 mg/0.85 mL subcutaneous auto-injector (Bydureon BCise) 2 mg subcut Q7D 10/13/23 [History Last Taken Unknown] ipratropium 0.5 mg-albuterol 3 mg (2.5 mg base)/3 mL nebulization soln 3 ml inhalation Q8H 10/13/23 [History Last Taken Unknown] lactulose 20 gram/30 mL oral solution 30 g PO 4X/DAY 10/13/23 [History Last Taken Unknown] progesterone micronized 100 mg capsule 100 mg PO DAILY 10/13/23 [History Last Taken Unknown] Allergy/AdvReac Type Severity Reaction Status Date / Time hydrocodone bitartrate AdvReac Severe Other Verified 10/13/23 14:35 [From Vicodin] hydroxyzine AdvReac Severe Other Verified 10/13/23 14:35 doxycycline AdvReac Intermediate Shortness Verified 10/13/23 14:35 of breath (had CHF also, may not be true allergy Family History Father Diabetes Hypertension Cancer Lung cancer Mother Hypertension CVA (cerebral vascular accident) Sister Diabetes Son Diabetes Surgical History History of cardioversion (2015) History of cataract surgery History of left heart catheterization (02/16/13) History of lithotripsy (11/2020) History of loop recorder (06/26/22) History of radiofrequency ablation procedure for cardiac arrhythmia (02/05/06) history of right knee cap fracture History of right knee surgery Status post laser lithotripsy of ureteral calculus Status post left foot surgery STENT PLACEMENT FOR KIDNEY STONE Social History household members: spouse housing: house Smoking Status: Never smoker how long ago did patient quit smokin second hand exposure: No alcohol intake: never substance use type: does not use caffeine: No what type of physical activity do you participate in: none seatbelt use: always do you feel safe at home: Yes ROS ROS ED Review of Systems ROS Unobtainable: due to mental status EXAM Physical Exam Const Vital Signs: 10/13/23 14:35 10/13/23 14:39 10/13/23 14:39 Temperature 97.4 F L Temperature Source Temporal Pulse Rate 101 H Respiratory Rate 23 H Respiratory Effort Labored Labored Respiratory Depth Normal Respiratory Pattern Tachypnea Tachypnea Blood Pressure 138/57 H Blood Pressure Mean 84 Pulse Ox 95 Oxygen Delivery Method Room Air Room Air Positive obese Nutritional Appearance: obese HEENT Reports dry mucous membranes Mouth ED: Yes dry mucous membranes Mouth: dry mucous membranes Eyes EOMs intact bilaterally Chest Wall inspection of chest normal Resp Resp Narrative: Patient tachypneic with crackles bilateral bases. Increased work of breathing. Cardio regular rate and regular rhythm GI GI Narrative: Abdomen soft with no focal tenderness. Extremity Extremity Narrative: 3+ bilateral lower extremity edema, symmetric. Neuro Neuro Narrative: Patient resting with eyes closed. Will open eyes to voice and follow most commands. MDM MDM MDM Narrative Medical decision making narrative: Lab work drawn earlier today is reviewed. White count is 10.7 the hemoglobin is 7.8. Patient has chronic anemia secondary to his renal disease. Platelet count was 141. Chemistry studies reveal a BUN of 54 and creatinine 2.37. This is only slightly increased from his baseline. His potassium was normal at 4.4. His bicarb was low at 12. His ammonia level was 71. On review of records over the past month his ammonia levels have varied from 58-80. IV line is established. EKG obtained. Chest x-ray obtained to evaluate for acute lung pathology, cardiac size, or mediastinal abnormality. Labwork obtained to evaluate for leukocytosis, anemia, and electrolyte derangement. Given his work of breathing patient is placed on BiPAP. I will obtain an ABG to evaluate for CO2 retention. Patient is currently on BiPAP at 21% oxygen. He is more alert and breathing easier. He will open his eyes as you enter the room and now. CBC was a white count of 13.2 with 85% neutrophils. Hemoglobin is 8.8, consistent with his prior values. Chemistry studies reveal a BUN of 56 and a creatinine of 2.82. BNP is 292. Troponin is normal at 18. Total bili is 2.2 and direct bili is 1.6. Portable chest x-ray per my interpretation reveals a right lower lobe infiltrate as well as some fluid overload. He will be started on Zosyn and vancomycin. Patient is not currently on a bed where we can get an accurate weight. We obtained most recent weight from his [place] [facility] 248 pounds, however this was 20 pounds different than the week prior. Given his chronic renal disease I will estimate this way as it was lower than his prior which would calculate out to 1690 vancomycin. He is given 1500. Lab Data Labs: Laboratory Results - last 24 hr 10/13/23 14:45 WBC 13.2 H RBC 2.80 L Hgb 8.8 L Hct 27.9 L MCV 99.6 H MCH 31.4 MCHC 31.5 L RDW Std Deviation 62.3 H RDW Coeff of Flavio 16.9 H Plt Count 157 MPV 11.0 Immature Gran % (Auto) 2.600 H Neut % (Auto) 85.7 H Lymph % (Auto) 6.9 L [place] % (Auto) 4.6 Eos % (Auto) 0.0 Baso % (Auto) 0.2 Absolute Neuts (auto) 11.3 H Absolute Lymphs (auto) 0.91 Nucleated RBC % 0 Sodium 145 Potassium 4.5 Chloride 125 H Carbon Dioxide 12.0 L Anion Gap 8 BUN 56 H Creatinine 2.82 H Est GFR (MDRD) Af Amer 28 L Est GFR (MDRD) Non-Af 23 L BUN/Creatinine Ratio 19.9 Glucose 177 H Calcium 8.4 L Total Bilirubin 2.20 H Direct Bilirubin 1.60 H AST 35 ALT 23 Alkaline Phosphatase 216 H Troponin I High Sens 18 B-Natriuretic Peptide 292.0 H Total Protein 7.4 Albumin 1.8 L Globulin 5.6 H ABG Data ABG results: ABG 10/13/23 15:25 Specimen Type ART Sample Site R Radial pH 7.33 L Bicarbonate Actual 10.2 L Total CO2 11 Base Excess -16 L O2 Saturation 95 O2 % 21.0 ABG pCO2 19.5 L ABG pO2 76 Bill Test Positive Respiration Rate 14 O2 Delivery Device BiPAP Vent Mode BiLevel Clinical Comments 07/23 Discharge Plan Triage Chief Complaint: Abn Labs Other Complaint: Shortness of Breath ED Provider: Zo Yin Dx/Rx/DC Orders Clinical Impression: Respiratory distress, Hyperammonemia, Chronic renal failure, Pneumonia Prescriptions: No Action pramipexole [Mirapex] 1 mg tablet 2 mg PO QHS Qty: 180 3RF nitroglycerin 0.4 mg Tablet, Sublingual 0.4 mg sublingual Q5M PRN (Reason: Cardiac/Chest Pain) 30 Days Qty: 30 0RF metoprolol succinate 25 mg tablet extended release 24 hr 25 mg PO DAILY hydralazine 50 mg tablet 50 mg PO TID pantoprazole [Protonix] 40 mg tablet,delayed release (DR/EC) 40 mg PO DAILY Qty: 60 0RF albuterol sulfate 2.5 mg /3 mL (0.083 %) solution for nebulization 2.5 mg inhalation Q4H PRN (Reason: shortness of breath or wheezing) alum-mag hydroxide-simeth [Antacid Plus Anti-Gas] 200-200-20 mg/5 mL suspension 30 ml PO Q4H PRN (Reason: indigestion) bisacodyl 10 mg suppository 10 mg UT DAILY PRN (Reason: constipation) guaifenesin 200 mg/5 mL liquid 200 mg PO Q6H PRN (Reason: cough) insulin glargine [Lantus Solostar U-100 Insulin] 100 unit/mL (3 mL) insulin pen 42 unit subcut DAILY furosemide [Lasix] 20 mg tablet 20 mg PO DAILY sertraline 25 mg tablet 25 mg PO DAILY meclizine 25 mg tablet 25 mg PO Q8H PRN (Reason: dizziness) acetaminophen 325 mg tablet 650 mg PO Q4H PRN (Reason: fever or pain) Qty: 1 0RF Bydureon BCise 2 mg/0.85 mL auto-injector 2 mg subcut Q7D ipratropium-albuterol 0.5 mg-3 mg(2.5 mg base)/3 mL solution for nebulization 3 ml inhalation Q8H progesterone micronized 100 mg capsule 100 mg PO DAILY lactulose 20 gram/30 mL Solution 30 g PO 4X/DAY finasteride 5 mg tablet 5 mg PO DAILY Qty: 90 3RF ergocalciferol (vitamin D2) 1,250 mcg (50,000 unit) capsule 50,000 unit PO QMONTH Qty: 14 1RF Eliquis 2.5 mg tablet 2.5 mg PO BID Qty: 180 3RF atorvastatin 10 mg tablet 10 mg PO QHS Qty: 90 3RF (DME) pen needle, diabetic [BD Ultra-Fine Mini Pen Needle] 31 gauge x 3/16 needle See Rx Instructions .Route Qty: 100 4RF Rx Instructions: As directed fluticasone propionate 50 mcg/actuation spray,suspension 2 spray intranasal DAILY Qty: 16 3RF Hold Instructions: MD Ordered Patient Comments: PT STATES HE USES AT NIGHT progesterone micronized 100 mg capsule 100 mg PO QAM Qty: 90 3RF (DME) lancets [OneTouch Delica Plus Lancet] 30 gauge misc See Rx Instructions .Route Qty: 100 4RF Rx Instructions: As directed; Check BG 2-3 times daily for DMII (DME) Ultra-Light Rollator Misc See Rx Instructions .Route Qty: 1 0RF Rx Instructions: As directed famotidine 40 mg tablet 40 mg PO DAILY Qty: 30 1RF ferrous sulfate 325 mg (65 mg iron) tablet 325 mg PO Qty: 90 1RF Rx Instructions: only Primary Care Provider: Saima Thompson Referrals: Saima Thompson MD [Primary Care Provider] - Disposition Disposition: Acute Care Hospital [facility]
[2023-10-13 15:11] LABS: Absolute Lymphocyte Count 0.91 X10^3/uL (0.83-4.51); Absolute Neutrophil Count 11.3 X10^3/uL (2.0-7.7); Basophil# 0.03 X10^3/uL; Basophil% 0.2 % (0-1); Hematocrit 27.9 % (40-54); Hemoglobin 8.8 g/dL (13.0-16.5); Lymphocyte # 0.91 X10^3/ul (0.83-4.51); Lymphocyte % 6.9 % (19-41); Mean Corp Hgb Conc 31.5 g/dL (32-36); Mean Corpuscular Hgb 31.4 pg (27.0-32.0); Mean Corpuscular Volume 99.6 fL (80-94); Monocyte# 0.61 X10^3/uL; Monocyte% 4.6 % (0-10); NRBC Flagged by Analyzer 0 % (0-5); Neutrophil # 11.33 X10^3/uL (2.7-7.7); Neutrophil % 85.7 % (47-70); Platelet Count 157 K/mm3 (150-450); RBC Distribution Width CV 16.9 % (11.6-14.6); RBC Distribution Width SD 62.3 fl (35.1-43.9); White Blood Count 13.2 K/mm3 (4.4-11.0)
[2023-10-13 15:29] LABS: Allen Test Positive; Base Excess -16 mmol/L (-2 to +2); Bicarbonate 10.2 mmol/L (22-26); Blood Gas Specimen Type ART; Mode BiLevel; O2 Delivery Device BiPAP; PO2 76 mmHG (75-100); RR 14; SITE R Radial; SO2 95 % (95-99); Total Carbon Dioxide 11 mmol/L; pCO2 19.5 mmHg (35-45); pH 7.33 (7.35-7.45)
[2023-10-13 15:37] LABS: AST(SGOT) 35 U/L (15-37); Alanine Aminotransfer ALT/SGPT 23 U/L (16-61); Albumin, Serum 1.8 g/dL (3.2-5.0); Alkaline Phosphatase 216 U/L (45-117); Anion Gap 8 (5-15); BUN 56 mg/dL (7-18); BUN/Creat Ratio 19.9 RATIO (10-20); Calcium,Total 8.4 mg/dL (8.5-10.1); Chloride 125 mmol/L (98-107); Creatinine, Serum 2.82 mg/dL (0.70-1.30); EST Glomerular Filtration Rate 23 mL/min (>60); Est Glom Filt Rate - Afr Amer 28 mL/min (>60); Globulin 5.6 g/dL (2.2-4.2); Glucose 177 mg/dL (74-106); Potassium 4.5 mmol/L (3.5-5.1); Protein, Total 7.4 g/dL (6.4-8.2); Sodium Level 145 mmol/L (136-145); Troponin-I HS 18 pg/mL (3.0-78.0)
--- NOTE | 2023-10-13 15:40 | RAD_ITS ---
STUDY: X-RAY CHEST REASON FOR EXAM: Male, 83 years old. Shortness of breath TECHNIQUE: Frontal view of the chest COMPARISON: 08/26/2023 FINDINGS: There is airspace opacities in the mid to lower lung shah bilaterally, most pronounced in the right mid lung. This is consistent with multilobar pneumonia. There are no pleural effusions. There is no pneumothorax. The heart is stable in size. Again noted is a pacemaker. The visualized osseous structures are within normal limits. RAD/Chest 1 View (Portable) IMPRESSION: Bilateral multilobar pneumonia which is most pronounced in the right mid lung. Electronically Signed: Matti Blackwell MD at 16:19 EST ,
[2023-10-13] MEDS: Piperacil/Tazobactam 3.375 GM in 0.9% Normal Saline (50mL MB+) 50 ML IV ×2 (16:19→23:02)
--- NOTE | 2023-10-13 16:28 | NURSING ---
DR MACIEL FOR DR HAYES
--- NOTE | 2023-10-13 16:40 | HP.PCM.HOS_ITS ---
HPI - General General Date of Admission: 10/13/23 Date of Service: 10/13/23 Chief Complaint: Decreased level of consciousness, elevated ammonia level HPI Narrative MARY SAN, is a 83 M who presents to the emergency room at [facility] with decreased level of consciousness that was noted today, he had an ammonia level done [facility] and it was elevated. Patient was sent in for evaluation. Labs obtained in the emergency room showed an elevated white blood cell count at 13.2, hemoglobin was 8.8, chemistry panel was abnormal for chloride of 125, BUN was elevated at 56, creatinine was 2.82, bicarb was 12, glucose was 177, bilirubin was 2.2, direct bilirubin was 1.6, beta natruretic peptide was 292, albumin was 1.8, and alkaline phosphatase was 216. Patient's ammonia level was not repeated, it was 71 this morning at the retirement. Patient had an arterial blood gas obtained on room air, pH was 7.33, pCO2 was 19.5, pO2 was 76. Chest x-ray obtained showed bilateral infiltrates more pronounced in the right midlung. Patient will be admitted for hepatic encephalopathy and pneumonia, I talked with the patient's and 2 children by phone, they verified that the patient is a full code, I also went over with them that the patient may need an NG tube for administration of lactulose and they were okay with this. Patient was admitted to [address] Medical History (Updated 10/13/23 @ 16:[address] Zo Yin MD) (HFpEF) heart failure with preserved ejection fraction (12/12/20) Acute dyspnea Acute on chronic diastolic HF (heart failure) Acute respiratory failure with hypoxia Anemia of chronic renal failure, stage 3 (moderate) Anxiety and depression Atherosclerotic heart disease of [place] coronary artery without angina pectoris Atrial flutter Atypical chest pain Back pain BMI 34.0-34.9,adult BPH (benign prostatic hyperplasia) BPPV (benign paroxysmal positional vertigo) Bradycardia Cardiac dysrhythmia Cardiology follow-up encounter CHF (congestive heart failure) Chronic anticoagulation De Quervain's tenosynovitis Debility Depression Dermatitis Diabetic kidney disease Dizziness DM type 2 with diabetic peripheral neuropathy DVT (deep venous thrombosis) Dyslipidemia Dysphagia Essential (primary) hypertension Fall Flu vaccine need Fracture of great toe Gastric reflux Generalized weakness Gout Health care maintenance History of echocardiogram History of edema History of GI bleed History of peptic ulcer History of renal calculi History of ulceration HLD (hyperlipidemia) Hyperkalemia Injury of head and neck Iron deficiency anemia Iron deficiency anemia due to chronic blood loss Kidney hematoma (12/08/20) Left knee pain Left leg DVT Loss of equilibrium Low iron Malaise Near syncope Orthostatic hypotension MACHELLE (obstructive sleep apnea) Pain of left lower extremity Paroxysmal atrial fibrillation Paroxysmal atrial flutter Pneumonia Polypharmacy 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 Presence of cardiac pacemaker Prostate disease Psoriasis Recurrent syncope (06/19/22) Renal calculi RLS (restless legs syndrome) Sex disorder Sick sinus syndrome Suicidal ideation SVT (supraventricular tachycardia) TIA (transient ischemic attack) Toe pain, left Type 2 diabetes mellitus with diabetic polyneuropathy Urolithiasis Venous insufficiency of both lower extremities Vertigo Walker as ambulation aid Weakness Wears glasses Home Medications finasteride 5 mg tablet 5 mg PO DAILY PROSTATE #90 tabs 11/03/18 [Rx Last Taken 08/26/23] ergocalciferol (vitamin D2) 1,250 mcg (50,000 unit) capsule 50,000 unit PO QMONTH SUPPLEMENT #14 caps 11/29/22 [Rx Last Taken 08/19/23] nitroglycerin 0.4 mg sublingual tablet 0.4 mg sublingual Q5M PRN Cardiac/Chest Pain 30 days #30 tabs 12/03/22 [Rx Last Taken Unknown] metoprolol succinate 25 mg tablet,extended release 24 hr 25 mg PO DAILY BLOOD PRESSURE 12/07/22 [History Last Taken 08/26/23] apixaban 2.5 mg tablet (Eliquis) 2.5 mg PO BID BLOOD THINNER #180 tabs 12/25/22 [Rx Last Taken 08/26/23] atorvastatin 10 mg tablet 10 mg PO QHS CHOLESTEROL #90 tabs 12/25/22 [Rx Last Taken 08/25/23] pen needle, diabetic 31 gauge x 3/16 (BD Ultra-Fine Mini Pen Needle) #100 ea 12/30/22 [Rx Last Taken Unknown] hydralazine 50 mg tablet 50 mg PO TID BLOOD PRESSURE 02/04/23 [History Last T aktimmy 08/26/23] fluticasone propionate 50 mcg/actuation nasal spray,suspension 2 spray intranasal DAILY NASAL CONGESTION #16 grams 06/24/23 [Rx Last Taken 08/25/23] progesterone micronized 100 mg capsule 100 mg PO QAM HORMONE REPLACEMENT #90 caps 07/03/23 [Rx Last Taken 08/25/23] lancets 30 gauge (OneTouch Delica Plus Lancet) #100 ea 07/22/23 [Rx Last Taken Unknown] walker (Ultra-Light Rollator misc) #1 ea 08/13/23 [Rx Last Taken Unknown] famotidine 40 mg tablet 40 mg PO DAILY ACID REFLUX #30 tabs 08/15/23 [Rx Last Taken 08/26/23] ferrous sulfate 325 mg (65 mg iron) tablet 325 mg PO TH supplement #90 tabs 08/15/23 [Rx Last Taken 08/21/23] pantoprazole 40 mg tablet,delayed release (Protonix) 40 mg PO DAILY #60 tabs 08/23/23 [Rx Last Taken 08/26/23] meclizine 25 mg tablet 25 mg PO Q8H PRN dizziness 08/26/23 [History Last Taken Unknown] acetaminophen 325 mg tablet 650 mg (2 x 325 mg) PO Q4H PRN fever or pain #1 TAB 08/29/23 [Rx Last Taken Unknown] albuterol sulfate 2.5 mg/3 mL (0.083 %) solution for nebulization 2.5 mg inhalation Q4H PRN shortness of breath or wheezing 10/07/23 [History Last Taken Unknown] aluminum-mag hydroxide-simethicone 200 mg-200 mg-20 mg/5 mL oral susp (Antacid Plus Anti-Gas) 30 ml PO Q4H PRN indigestion 10/07/23 [History Last Taken Unknown] bisacodyl 10 mg rectal suppository 10 mg MI DAILY PRN constipation 10/07/23 [History Last Taken Unknown] furosemide 20 mg tablet (Lasix) 20 mg PO DAILY 10/07/23 [History Last Taken Unknown] guaifenesin 200 mg/5 mL oral liquid 200 mg PO Q6H PRN cough 10/07/23 [History Last Taken Unknown] insulin glargine 100 unit/mL (3 mL) subcutaneous pen (Lantus Solostar U-100 Insulin) 42 unit subcut DAILY 10/07/23 [History Last Taken Unknown] sertraline 25 mg tablet 25 mg PO DAILY 10/07/23 [History Last Taken Unknown] acetaminophen 650 mg rectal suppository 650 mg MI Q4H 10/13/23 [History Last Taken Unknown] albuterol sulfate 90 mcg/actuation aerosol inhaler 2 inh inhalation Q8H PRN shortness of breath or wheezing 10/13/23 [History Last Taken Unknown] dextrose 40 % oral gel (Glucose Gel) 10 g PO Q15M PRN hypoglycemia 10/13/23 [History Last Taken Unknown] exenatide microspheres 2 mg/0.85 mL subcutaneous auto-injector (ByduFaves BCise) 2 mg subcut FR 10/13/23 [History Last Taken Unknown] glucagon HCl 1 mg solution for injection (Glucagon (HCl) Emergency Kit) 1 mg IM Q20M PRN hypoglycemia 10/13/23 [History Last Taken Unknown] ipratropium 0.5 mg-albuterol 3 mg (2.5 mg base)/3 mL nebulization soln 3 ml inhalation Q8H SHORTNESS OF BREATH 10/13/23 [History Last Taken Unknown] lactulose 20 gram/30 mL oral solution 30 g PO 4X/DAY 10/13/23 [History Last Taken Unknown] magnesium hydroxide 400 mg/5 mL oral suspension (Milk of Magnesia) 30 ml PO DAILY PRN constipation 10/13/23 [History Last Taken Unknown] pramipexole 1 mg tablet 2 mg PO QHS RESTLESS LEG SYNDROME 10/13/23 [History Last Taken Unknown] progesterone micronized 100 mg capsule 100 mg PO DAILY 10/13/23 [History Last Taken Unknown] sodium phosphates 19 gram-7 gram/118 mL enema (Fleet Enema) 118 ml MI DAILY PRN constipation 10/13/23 [History Last Taken Unknown] Allergy/AdvReac Type Severity Reaction Status Date / Time hydrocodone bitartrate AdvReac Severe Other Verified 10/13/23 14:35 [From Vicodin] hydroxyzine AdvReac Severe Other Verified 10/13/23 14:35 doxycycline AdvReac Intermediate Shortness Verified 10/13/23 14:35 of breath (had CHF also, may not be true allergy Family History Father Diabetes Hypertension Cancer Lung cancer Mother Hypertension CVA (cerebral vascular accident) Sister Diabetes Son Diabetes Surgical History History of cardioversion (2015) History of cataract surgery History of left heart catheterization (02/16/13) History of lithotripsy (11/2020) History of loop recorder (06/26/22) History of radiofrequency ablation procedure for cardiac arrhythmia (02/05/06) history of right knee cap fracture History of right knee surgery Status post laser lithotripsy of ureteral calculus Status post left foot surgery STENT PLACEMENT FOR KIDNEY STONE Social History household members: spouse housing: house Smoking Status: Never smoker how long ago did patient quit smokin second hand exposure: No alcohol intake: never substance use type: does not use caffeine: No what type of physical activity do you participate in: none seatbelt use: always do you feel safe at home: Yes ROS ROS Narrative Unobtainable due to the patient's altered mental status Review of Systems ROS Unobtainable: due to encephalopathy Vital Signs Vital Signs Vital Signs: 10/13/23 14:35 10/13/23 14:39 10/13/23 14:39 Temperature 97.4 F L Temperature Source Temporal Pulse Rate 101 H Respiratory Rate 23 H Respiratory Effort Labored Labored Respiratory Depth Normal Respiratory Pattern Tachypnea Tachypnea Blood Pressure 138/57 H Blood Pressure Mean 84 Pulse Ox 95 Oxygen Delivery Method Room Air Room Air Weight Weight: 112.582 kg Body Mass Index (BMI) 33.6 Physical Exam Const alert and no apparent distress General Appearance: well developed Orientation / Consciousness: awake HEENT normocephalic, head/scalp atraumatic and moist oral mucous membranes Eyes PERRL, EOMs intact bilaterally and conjunctivae normal Neck supple, no JVD, thyroid normal and no carotid bruits General: trachea midline Resp normal respiratory effort, no retractions, no use of accessory muscles and clear to auscultation bilaterally Auscultation: Negative for rales, rhonchi or wheezes Cardio regular rate, regular rhythm, S1 normal heart sound, S2 normal heart sound, no murmurs, no rub and no gallops GI normal to inspection, nondistended, normoactive bowel sounds, soft to palpation, non-tender and non-distended Extremity no clubbing, cyanosis or edema Skin no rashes or lesions noted General Skin Exam: no breakdown Neuro CN's II-XII intact bilaterally and moves all extremities Neuro Narrative: Patient is awake and confused, he responds to verbal stimuli by looking toward the examiner but does not speak, he responds to painful stimuli by withdrawing Sensorium / Orientation: awake Psych Psych Narrative: Patient is awake but confused, he is lethargic at times Results Lab / Micro Data 10/13/23 14:45 10/13/23 14:45 Labs: Laboratory Results - last 24 hr 10/13/23 14:45: WBC 13.2 H, RBC 2.80 L, Hgb 8.8 L, Hct 27.9 L, MCV 99.6 H, MCH 31.4, MCHC 31.5 L, RDW Std Deviation 62.3 H, RDW Coeff of Flavio 16.9 H, Plt Count 157, MPV 11.0, Immature Gran % (Auto) 2.600 H, Neut % (Auto) 85.7 H, Lymph % (Auto) 6.9 L, [place] % (Auto) 4.6, Eos % (Auto) 0.0, Baso % (Auto) 0.2, Absolute Neuts (auto) 11.3 H, Absolute Lymphs (auto) 0.91, Nucleated RBC % 0, Sodium 145, Potassium 4.5, Chloride 125 H, Carbon Dioxide 12.0 L, Anion Gap 8, BUN 56 H, Creatinine 2.82 H, Est GFR (MDRD) Af Amer 28 L, Est GFR (MDRD) Non-Af 23 L, BUN/Creatinine Ratio 19.9, Glucose 177 H, Calcium 8.4 L, Total Bilirubin 2.20 H, Direct Bilirubin 1.60 H, AST 35, ALT 23, Alkaline Phosphatase 216 H, Troponin I High Sens 18, B-Natriuretic Peptide 292.0 H, Total Protein 7.4, Albumin 1.8 L, Globulin 5.6 H ABG Data ABG results: ABG 10/13/23 15:25 Specimen Type ART Sample Site R Radial pH 7.33 L Bicarbonate Actual 10.2 L Total CO2 11 Base Excess -16 L O2 Saturation 95 O2 % 21.0 ABG pCO2 19.5 L ABG pO2 76 Bill Test Positive Respiration Rate 14 O2 Delivery Device BiPAP Vent Mode BiLevel Clinical Comments 07/23 Imaging Radiology Impression Chest X-Ray 10/13/23 15:40 IMPRESSION: Bilateral multilobar pneumonia which is most pronounced in the right mid lung. Electronically Signed: Matti Blackwell MD at 16:19 EST , Assessment & Plan Assessment/Plan (1) Pneumonia: PLAN: Plan 1. Hepatic encephalopathy-patient will be admitted to [facility] 3, he will need administration of lactulose which may have to be given via NG due to the patient's altered mental status. #2 pneumonia-patient will be treated with Zosyn, labs will be monitored, pulse ox will be monitored #3 cirrhosis-probably secondary to fatty liver disease, complicates care, medical course, recovery, and prognosis #4 type 2 diabetes-patient's blood sugars will be monitored, sliding scale insulin will be given #5 dehydration on a backdrop of chronic kidney disease-I feel that the patient is probably dry, I will administer fluids at 75 cc an hour #6 elevated natruretic peptide-etiology unclear, I do not believe the patient has CHF presently, his last echocardiogram here appears to have been done approximately a year ago, I will repeat the patient's echocardiogram, again I will give the patient fluids judicially Total clinical time spent by myself addressing the patient's medical issues, reviewing all of his data, and collaborating with patient's care team: 75 minutes Charges/Coding Visit Charges Inpatient E&M: 80508 Init Hosp L3
[2023-10-13] MEDS: Vancomycin HCl 1,500 MG in 0.9% Normal Saline (500mL Bag) 500 ML 250 MG IV (16:47)
--- NOTE | 2023-10-13 18:43 | ECHOD_ITS ---
Left Ventricle Normal LV size. The estimated ejection fraction is 65 %. Unable to assess diastolic dysfunction. No regional wall motion abnormalities noted. Right Ventricle Normal RV size. Normal systolic function. Atria Normal left atrium. Normal right atrium. No doppler evidence for ASD. Mitral Valve There is moderate mitral annular calcification. There is no mitral valve stenosis. Trivial mitral valve insufficiency. Tricuspid Valve There is no tricuspid stenosis. Trivial tricuspid valve insufficiency. Pulmonary artery systolic pressure is 30 mmHg. Aortic Valve Trisinus/trileaflet aortic valve. Aortic sclerosis, no stenosis. There is no aortic stenosis. No aortic valve insufficiency. Pulmonic Valve There is no pulmonic valvular stenosis. No pulmonic valve insufficiency. Great Vessels Normal aortic root. Pericardium/Pleural No pericardial effusion. MMode/2D Measurements & Calculations LVIDd: 5.1 cm IVSd: 1.3 cm LVOT diam: 2.4 cm LVIDs: 2.7 cm LVPWd: 1.3 cm LVOT area: 4.6 cm2 RVDd: 3.9 cm FS: 47.7 % Ao root diam: 3.5 cm LAV(MOD-bp): 77.1 ml LVAd ap4: 29.6 cm2 LAV(MOD-bp) Indexed: 33.0 ml/m2 LVLd ap4: 8.1 cm LAV(MOD-sp2): 73.3 ml EDV(MOD-sp4): 90.6 ml LAV(MOD-sp4): 79.4 ml EDV(sp4-el): 91.4 ml LVAs ap4: 17.0 cm2 LVLs ap4: 7.6 cm ESV(MOD-sp4): 33.9 ml ESV(sp4-el): 32.4 ml EF(MOD-sp4): 62.6 % EF(sp4-el): 64.5 % SV(MOD-sp4): 56.8 ml SV(MOD-sp2): 63.9 ml LVAd ap2: 29.4 cm2 LVLd ap2: 8.9 cm EDV(MOD-sp2): 83.3 ml EDV(sp2-el): 83.0 ml LVAs ap2: 13.4 cm2 LVLs ap2: 8.2 cm ESV(MOD-sp2): 19.3 ml ESV(sp2-el): 18.6 ml EF(MOD-sp2): 76.8 % SV(sp4-el): 59.0 ml LA A4 area: 24.7 cm2 LA dimension(2D): 4.1 cm TAPSE: 2.0 cm RA A4 area: 19.9 cm2 Doppler Measurements & Calculations MV E max darrius: 139.1 cm/sec Lat Peak E' Darrius: 15.4 cm/sec Med Peak E' Darrius: 10.8 cm/sec MV A max darrius: 67.7 cm/sec E/E' lat: 9.0 E/E' med: 12.9 MV E/A: 2.1 Ao V2 max: 194.6 cm/sec LV V1 max: 107.8 cm/sec SV(LVOT): 105.1 ml Ao max P.1 mmHg LV V1 max P.7 mmHg Ao V2 mean: 124.8 cm/sec LV V1 mean P.4 mmHg Ao mean P.2 mmHg LV V1 mean: 72.3 cm/sec Ao V2 VTI: 37.0 cm LV V1 VTI: 23.1 cm AV (velocity ratio): 0.62 ROSALES(I,D): 2.8 cm2 ROSALES(V,D): 2.5 cm2 PA V2 max: 100.2 cm/sec TR max darrius: 261.2 cm/sec TR max P.3 mmHg ECHO/Echo Complete Interpretation Summary The estimated ejection fraction is 65 %. Unable to assess diastolic dysfunction. Trivial mitral valve insufficiency. Ordering Physician: Caden Hernandez Performed By: RANDI
[2023-10-13] MEDS: Ipratropium/Albuterol Sulfate 3 ML AMPUL.NEB INHALATION (19:02)
[2023-10-13] MEDS: 0.9% Normal Saline (1000mL) 1,000 ML 75 ML IV (20:31)
[2023-10-13] MEDS: Pantoprazole Sodium 40 MG in 0.9% Normal Saline (100mL MB+) 100 ML 330 MG IV (20:45)
[2023-10-13 21:16] LABS: Bedside Glucose 123 mg/dL (74-106)
[2023-10-13] MEDS: Lactulose 20 GM/30 ML UDC PO (23:25)
--- OUTSIDE RECORDS SUMMARY | 2023-10-13 23:40 | XMS RPT_ITS | CCD ---
Author Name Unknown Address [address] [place] [address] Organization [facility] Results Test Name Value Interpretation [...] BE BASED ON THE PRIMARY CLINICAL RECORDS. [facility] [employer]. provides no warranty or guarantee of the accuracy or completeness of information in this document.
[2023-10-14] VITALS (14 sets, daily range): BP systolic 105–124; BP diastolic 49–74; PULSE 71–103; RESP 14–20; TEMP 36.2–36.4; O2SAT 92–98
--- OUTSIDE RECORDS SUMMARY | 2023-10-14 00:15 | XMS RPT_ITS | CCD ---
Author Name Unknown Address [address] [place] [address] Organization [facility] Results Test Name Value Interpretation [...] BE BASED ON THE PRIMARY CLINICAL RECORDS. [facility] [employer]. provides no warranty or guarantee of the accuracy or completeness of information in this document.
[2023-10-14] MEDS: Ipratropium/Albuterol Sulfate 3 ML AMPUL.NEB INHALATION ×2 (04:22→17:50)
[2023-10-14] MEDS: Lactulose 20 GM/30 ML UDC PO ×3 (05:10→21:14)
[2023-10-14] MEDS: Piperacil/Tazobactam 3.375 GM in 0.9% Normal Saline (50mL MB+) 50 ML IV ×3 (05:10→21:35)
[2023-10-14 07:12] LABS: Bedside Glucose 77 mg/dL (74-106)
--- NOTE | 2023-10-14 07:22 | NURSING ---
attempted to call Coby, no answered.
[2023-10-14 08:33] LABS: Absolute Lymphocyte Count 0.91 X10^3/uL (0.83-4.51); Absolute Neutrophil Count 7.5 X10^3/uL (2.0-7.7); Eosinophil# 0.03 X10^3/uL; Eosinophils% 0.3 % (0-5); Hemoglobin 7.6 g/dL (13.0-16.5); Lymphocyte # 0.91 X10^3/ul (0.83-4.51); Lymphocyte % 10.3 % (19-41); Mean Corp Hgb Conc 31.7 g/dL (32-36); Mean Corpuscular Hgb 30.9 pg (27.0-32.0); Mean Corpuscular Volume 97.6 fL (80-94); Mean Platelet Vol. 10.1 fl (6.2-12.0); Monocyte# 0.35 X10^3/uL; NRBC Flagged by Analyzer 0 % (0-5); Neutrophil # 7.46 X10^3/uL (2.7-7.7); Neutrophil % 84.4 % (47-70); POSITIVE MORPHOLOGY YES; Platelet Count 138 K/mm3 (150-450); RBC Distribution Width CV 16.9 % (11.6-14.6); RBC Distribution Width SD 59.7 fl (35.1-43.9); Red Blood Count 2.46 M/mm3 (4.6-6.2); White Blood Count 8.8 K/mm3 (4.4-11.0)
[2023-10-14 08:49] LABS: Differential Indicated SCAN CRITERIA MET
[2023-10-14 09:22] LABS: ALB/GLOB Ratio 0.3 RATIO (0.9-2.4); AST(SGOT) 33 U/L (15-37); Alanine Aminotransfer ALT/SGPT 19 U/L (16-61); Albumin, Serum 1.5 g/dL (3.2-5.0); Alkaline Phosphatase 166 U/L (45-117); Anion Gap 5 (5-15); BUN 59 mg/dL (7-18); Calcium,Total 7.8 mg/dL (8.5-10.1); Chloride 129 mmol/L (98-107); Creatinine, Serum 2.57 mg/dL (0.70-1.30); EST Glomerular Filtration Rate 25 mL/min (>60); Est Glom Filt Rate - Afr Amer 31 mL/min (>60); Estimated Creatinine Clearance 27.72 ml/min; Globulin 4.6 g/dL (2.2-4.2); Glucose 76 mg/dL (74-106); Potassium 4.4 mmol/L (3.5-5.1); Protein, Total 6.1 g/dL (6.4-8.2); Sodium Level 150 mmol/L (136-145)
[2023-10-14 10:15] LABS: Differential Comment SCANNED; Reactive Lymphocyte 1+
[2023-10-14] MEDS: Pantoprazole Sodium 40 MG in 0.9% Normal Saline (100mL MB+) 100 ML 330 MG IV (10:58)
[2023-10-14] MEDS: Menthol/Lanolin/Calamine/Znox 113 GM Tube 1 APPLIC TOPICAL ×2 (10:59→21:15)
--- NOTE | 2023-10-14 11:24 | CASEMGMT ---
Social Work Pt is here from [facility]. SIMONA called daughter Na to inquire if the plan will be for pt to return at discharge. Message left, SIMONA will continue to follow. ALVIN Amin
[2023-10-14] MEDS: Dextrose 50%-Water 25 GM/50 ML DISP.SYRIN IV (11:50)
--- NOTE | 2023-10-14 11:59 | PN_ITS ---
Subjective Subjective Patient was seen and examined. He is lethargic and quite confused. Unable to do comprehensive review of systems. He kept coughing during my review. He is on 2.5L of oxygen. Objective Data Objective Data Vital Signs: Vital Signs Temp Pulse Resp BP Pulse Ox O2 Del Method O2 Flow Rate 97.6 F L 71 20 H 108/49 L 92 Nasal Cannula 2.5 10/14/23 08:00 10/14/23 09:22 10/14/23 09:22 10/14/23 08:00 10/14/23 11:36 10/14/23 09:22 10/14/23 11:36 FiO2 21 10/13/23 15:10 Oxygen Flow Rate (L/min) 2.5 Oxygen Delivery Method Nasal Cannula Weight: 248 lb 3.848 oz Body Mass Index (BMI) 33.6 Intake & Output: Intake and Output for Last 24 Hours 10/12/23 10/13/23 10/14/23 23:59 23:59 23:59 Intake Total 690.00 / 690.00 1208.75 / 1208.75 Output Total 450 / 450 Balance 690.00 / 690.00 758.75 / 758.75 Lab / Micro Data 10/14/23 07:51 10/14/23 07:51 Labs: Laboratory Results - last 24 hr 10/13/23 14:45: WBC 13.2 H, RBC 2.80 L, Hgb 8.8 L, Hct 27.9 L, MCV 99.6 H, MCH 31.4, MCHC 31.5 L, RDW Std Deviation 62.3 H, RDW Coeff of Flavio 16.9 H, Plt Count 157, MPV 11.0, Immature Gran % (Auto) 2.600 H, Neut % (Auto) 85.7 H, Lymph % (Auto) 6.9 L, [place] % (Auto) 4.6, Eos % (Auto) 0.0, Baso % (Auto) 0.2, Absolute Neuts (auto) 11.3 H, Absolute Lymphs (auto) 0.91, Nucleated RBC % 0, Sodium 145, Potassium 4.5, Chloride 125 H, Carbon Dioxide 12.0 L, Anion Gap 8, BUN 56 H, Creatinine 2.82 H, Est GFR (MDRD) Af Amer 28 L, Est GFR (MDRD) Non-Af 23 L, BUN/Creatinine Ratio 19.9, Glucose 177 H, Calcium 8.4 L, Total Bilirubin 2.20 H, Direct Bilirubin 1.60 H, AST 35, ALT 23, Alkaline Phosphatase 216 H, Troponin I High Sens 18, B-Natriuretic Peptide 292.0 H, Total Protein 7.4, Albumin 1.8 L, Globulin 5.6 H 10/13/23 20:48: POC Glucose 123 H 10/14/23 06:20: POC Glucose 77 10/14/23 07:51: WBC 8.8, RBC 2.46 L, Hgb 7.6 L, Hct 24.0 L, MCV 97.6 H, MCH 30.9, MCHC 31.7 L, RDW Std Deviation 59.7 H, RDW Coeff of Flavio 16.9 H, Plt Count 138 L, MPV 10.1, Immature Gran % (Auto) 1.000 H, Neut % (Auto) 84.4 H, Lymph % (Auto) 10.3 L, [place] % (Auto) 4.0, Eos % (Auto) 0.3, Baso % (Auto) 0.0, Absolute Neuts (auto) 7.5, Absolute Lymphs (auto) 0.91, Nucleated RBC % 0, Differential Comment SCANNED, Reactive Lymphocytes 1+, Sodium 150 H, Potassium 4.4, Chloride 129 H*, Carbon Dioxide 16.0 L, Anion Gap 5, BUN 59 H, Creatinine 2.57 H, Estim Creat Clear Calc 27.72, Est GFR (MDRD) Af Amer 31 L, Est GFR (MDRD) Non-Af 25 L, BUN/Creatinine Ratio 23.0 H, Glucose 76, Calcium 7.8 L, Total Bilirubin 2.00 H, AST 33, ALT 19, Alkaline Phosphatase 166 H, Total Protein 6.1 L, Albumin 1.5 L, Globulin 4.6 H, Albumin/Globulin Ratio 0.3 L Micro: Microbiology 10/13/23 19:05 Mucosa - Nasopharyngeal Coronavirus COVID-19 PCR - Final 10/13/23 19:05 Mucosa - Nasopharyngeal Respiratory Panel (PCR) - Final 10/13/23 19:02 Urine, Clean Catch Legionella Antigen - Final 10/13/23 19:02 Urine, Clean Catch Streptococcus pneumoniae Antigen (M - Final ABG Data ABG results: ABG 10/13/23 15:25 Specimen Type ART Sample Site R Radial pH 7.33 L Bicarbonate Actual 10.2 L Total CO2 11 Base Excess -16 L O2 Saturation 95 O2 % 21.0 ABG pCO2 19.5 L ABG pO2 76 Bill Test Positive Respiration Rate 14 O2 Delivery Device BiPAP Vent Mode BiLevel Clinical Comments 07/23 Radiography Diagnostic Testing: Radiology Impression Chest X-Ray 10/13/23 15:40 IMPRESSION: Bilateral multilobar pneumonia which is most pronounced in the right mid lung. Electronically Signed: Matti Blackwell MD at 16:19 EST , Physical Exam Const Orientation / Consciousness: confused and lethargic HEENT normocephalic, moist oral mucous membranes and oropharynx normal Eyes PERRL and EOMs intact bilaterally Neck supple and no JVD Lymph Lymphatic: no lymphadenopathy noted and no lymphedema noted Resp Resp Narrative: diminished breath sounds bibasally, no wheezes or crackles. on 2.5L of oxygen. Cardio regular rate, regular rhythm, S1 normal heart sound, S2 normal heart sound and no murmurs GI normal to inspection, nondistended, normoactive bowel sounds, non-tender and non-distended Extremity normal capillary refill, no clubbing, cyanosis or edema and no calf tenderness General Extremity: no tenderness to palpation of joints or extremities Skin General Skin Exam: no breakdown Neuro CN's II-XII intact bilaterally and no focal motor deficits Neuro Narrative: confused, lethargic, moves all extremities. Motor Exam: general weakness Assessment & Plan Assessment/Plan (1) Hyperammonemia: (2) Respiratory distress: PLAN: Plan #Acute encephalopathy likely due to hepatic encephalopathy. * on lactulose. 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 * On rifaximin. Will trend liver enzymes. * #Community-acquired pneumonia: Currently on IV Zosyn. Concern patient is aspirating as he has a very wet cough. Speech therapy consulted. #Hypernatremia: Sodium is up to 150. Will hydrate with D5 water to bring down sodium and trend sodium. #Type 2 diabetes mellitus: #CKD: #Thrombocytopenia: Platelets are 138. Has episodic low platelets. Will monitor closely. Likely due to liver disease. #Normal anion gap metabolic acidosis: Bicarb is 16 with anion gap of 5. This is likely due to CKD. Will monitor. #Anemia: Hemoglobin is 7.6 today. Was 8.8 yesterday. Baseline hemoglobin is between 8-10. Will monitor closely and if it drops further we will check iron profile and consult gastroenterology. #Heart failure preserved ejection fraction: Has known EF of 65%. Repeat 2D echo ordered as BNP was slightly elevated. #Type 2 diabetes mellitus: Oral meds on hold. Insulin Sliding scale. On long- acting insulin. Checks ACHS. #MACHELLE: On BiPAP nightly. #Paroxysmal A-fib: On Eliquis. #History of arrhythmia: S/p pacemaker insertion. #Hypertension: On hydralazine and metoprolol #Restless leg syndrome: Mirapex #BPH: On finasteride DVT prophylaxis: On Eliquis Charges/Coding Visit Charges Inpatient E&M: 68710 [facility] Hosp L3
[2023-10-14 12:02] LABS: Bedside Glucose 71 mg/dL (74-106)
--- NOTE | 2023-10-14 12:20 | CASEMGMT ---
Addendum entered by Asia Sanchez 10/14/23 14:46: Social Work Updates sent to [facility] via [employer]. ALVIN Amin Original Note: Social Work Pt's daughter called SW back confirmed plan is for pt to return to [facility] at discharge, list of other nursing homes not needed at this time. Pt is there with his who is on dialysis. As far as daughter knows, pt is still there under his Medicare. SW will send updates to [facility] via [employer]. ALVIN Amin
[2023-10-14 13:30] LABS: Bedside Glucose 97 mg/dL (74-106)
[2023-10-14] MEDS: Dextrose 5%-Water (1000mL Bag) 1,000 ML 125 ML IV (13:51)
[2023-10-14 17:09] LABS: Bedside Glucose 164 mg/dL (74-106)
[2023-10-14] MEDS: Albuterol 2.5 MG/3 ML VIAL.NEB. INHALATION (20:33)
--- NOTE | 2023-10-14 21:04 | RAD_ITS ---
STUDY: X-RAY CHEST REASON FOR EXAM: Male, 83 years old. SOB TECHNIQUE: Single AP portable view of the chest. COMPARISON: 10/13/2023 FINDINGS: Moderate lung volumes. Widespread bilateral pulmonary opacities are stable. Findings suggest multifocal pneumonia. No gross effusions. There is no demonstrated pleural abnormality. There is mild cardiac enlargement. Pacemaker is seen with leads terminating in the right atrium and right ventricle. Normal mediastinum and lakhwinder. Normal visualized pulmonary arteries. Normal visualized aortic arch and descending thoracic aorta. There are diffuse degenerative changes of the visualized thoracic spine. Normal visualized ribs, clavicles, and shoulders. There is no demonstrated abnormality of the visualized soft tissue structures of the upper abdomen. RAD/Chest 1 View (Portable) IMPRESSION: No significant change. Widespread diffuse patchy pulmonary opacities of both lungs. Electronically Signed: Vicente Lew MD at 21:18 EST ,
[2023-10-14] MEDS: Pramipexole Di-HCl 1 MG Tablet 2 MG PO (21:15)
[2023-10-14] MEDS: Atorvastatin Calcium 10 MG Tablet PO (21:15)
[2023-10-14] MEDS: APIXABAN 2.5 MG TABLET (WCH) PO (21:15)
[2023-10-14] MEDS: Furosemide 40 MG/4 ML Vial IV (21:30)
[2023-10-14 22:43] LABS: Bedside Glucose 273 mg/dL (74-106)
[2023-10-14] MEDS: hydrALAZINE 50 MG Tablet PO (23:22)
[2023-10-14] MEDS: guaiFENesin 10 ML UDC (200MG/10ML) PO (23:31)
[2023-10-15] VITALS (23 sets, daily range): BP systolic 112–147; BP diastolic 52–83; PULSE 55–109; RESP 12–30; TEMP 36.3–36.7; O2SAT 89–98
[2023-10-15] MEDS: Albuterol 2.5 MG/3 ML VIAL.NEB. INHALATION (02:31)
--- NOTE | 2023-10-15 03:40 | NURSING ---
pt 02 increased to 4L NC, Ls dim w/ some crackles at L base, pt mouth breaths. Notified , bipap order. Pt now on bipap 02 sats improved 97%.
[2023-10-15] MEDS: Dextrose 5%-Water (1000mL Bag) 1,000 ML 15 ML IV (03:47)
[2023-10-15] MEDS: Piperacil/Tazobactam 3.375 GM in 0.9% Normal Saline (50mL MB+) 50 ML IV ×3 (05:12→22:57)
--- NOTE | 2023-10-15 05:32 | CPS ---
decreased inspiratory pressure to 12 and decreased fio2 to 35%
[2023-10-15 06:00] LABS: Absolute Lymphocyte Count 0.78 X10^3/uL (0.83-4.51); Absolute Neutrophil Count 7.3 X10^3/uL (2.0-7.7); Basophil# 0.01 X10^3/uL; Basophil% 0.1 % (0-1); Eosinophil# 0.04 X10^3/uL; Eosinophils% 0.5 % (0-5); Hematocrit 23.6 % (40-54); Hemoglobin 7.5 g/dL (13.0-16.5); Lymphocyte # 0.78 X10^3/ul (0.83-4.51); Mean Corp Hgb Conc 31.8 g/dL (32-36); Mean Corpuscular Hgb 30.7 pg (27.0-32.0); Mean Corpuscular Volume 96.7 fL (80-94); Mean Platelet Vol. 10.4 fl (6.2-12.0); Monocyte# 0.33 X10^3/uL; Monocyte% 3.8 % (0-10); NRBC Flagged by Analyzer 0.2 % (0-5); Neutrophil # 7.29 X10^3/uL (2.7-7.7); Neutrophil % 84.5 % (47-70); POSITIVE MORPHOLOGY YES; Platelet Count 138 K/mm3 (150-450); RBC Distribution Width CV 16.8 % (11.6-14.6); RBC Distribution Width SD 59.7 fl (35.1-43.9); Red Blood Count 2.44 M/mm3 (4.6-6.2); White Blood Count 8.6 K/mm3 (4.4-11.0)
[2023-10-15 06:12] LABS: Differential Indicated SCAN CRITERIA MET
[2023-10-15 06:33] LABS: ALB/GLOB Ratio 0.3 RATIO (0.9-2.4); AST(SGOT) 43 U/L (15-37); Alanine Aminotransfer ALT/SGPT 21 U/L (16-61); Albumin, Serum 1.5 g/dL (3.2-5.0); Alkaline Phosphatase 180 U/L (45-117); Anion Gap 6 (5-15); BUN 64 mg/dL (7-18); BUN/Creat Ratio 23.7 RATIO (10-20); Calcium,Total 7.6 mg/dL (8.5-10.1); Chloride 126 mmol/L (98-107); EST Glomerular Filtration Rate 24 mL/min (>60); Est Glom Filt Rate - Afr Amer 29 mL/min (>60); Estimated Creatinine Clearance 26.39 ml/min; Globulin 4.8 g/dL (2.2-4.2); Glucose 216 mg/dL (74-106); Potassium 4.2 mmol/L (3.5-5.1); Protein, Total 6.3 g/dL (6.4-8.2); Sodium Level 147 mmol/L (136-145)
[2023-10-15] MEDS: Lactulose 20 GM/30 ML UDC PO ×2 (06:49→13:31)
[2023-10-15] MEDS: hydrALAZINE 50 MG Tablet PO ×2 (06:49→13:36)
[2023-10-15] MEDS: Ipratropium/Albuterol Sulfate 3 ML AMPUL.NEB INHALATION ×3 (06:58→19:55)
[2023-10-15 07:49] LABS: Ferritin 410 ng/mL (26-388); Iron 14 ug/dL (65-175); Iron Binding Capacity,Total 102 ug/dL (250-450); PERCENT IRON SATURATION 13.7 % (15.0-55.0)
[2023-10-15 07:59] LABS: Differential Comment SCANNED
--- NOTE | 2023-10-15 09:01 | WOUNDNOTE ---
wound photo: left heel
[2023-10-15] MEDS: Furosemide 20 MG Tablet PO (09:19)
[2023-10-15] MEDS: Finasteride 5 MG Tablet PO (09:20)
[2023-10-15] MEDS: APIXABAN 2.5 MG TABLET (WCH) PO (09:20)
[2023-10-15] MEDS: Metoprolol(XL)Succ 25 MG Tablet PO (09:20)
[2023-10-15] MEDS: Sertraline 50 MG Tablet 25 MG PO (09:20)
[2023-10-15] MEDS: Menthol/Lanolin/Calamine/Znox 113 GM Tube 1 APPLIC TOPICAL ×2 (09:26→22:55)
[2023-10-15 09:45] LABS: Bedside Glucose 193 mg/dL (74-106)
[2023-10-15] MEDS: Pantoprazole Sodium 40 MG in 0.9% Normal Saline (100mL MB+) 100 ML 330 MG IV (10:34)
[2023-10-15] MEDS: Insulin Lispro 100 UNIT/ML INSULN.PEN SC ×3 (11:03→22:56)
[2023-10-15 11:24] LABS: Bedside Glucose 232 mg/dL (74-106)
--- NOTE | 2023-10-15 13:30 | CHAPLAIN ---
Type of Pastoral Visit _x__ Initial Visit ___ Follow-up Visit ___ On-call Visit ___ General Patient Visit ___ Spiritual Assessment ___ Family Conference ___ Bereavement ___ Rapid Response ___ Code Blue ___ Other (describe below) Pastoral Care Referral From ___ Patient _x__ Family ___ Nurse ___ Physician ___ Assault Amphibious Vehicle Crewman ___ Biodiesel Processing Technician ___ Other (describe below) Sacrament/Intervention ___ Active listening ___ Anointing ___ Evangelical ___ Bereavement ___ Communion ___ Ariadna exploration ___ ___ Life review _x__ Prayer ___ Reconciliation ___ Sacrament of Sick _x__ Supportive presence ___ Wedding ___ Other (describe below) Pastoral Comments notified by patient's daughter that pt was admitted; pt has a Bi Pap machine on but is awake; pt makes attempts to talk but is not discernable; pt makes hand motions to end of bed or toward the wall; this fast food shift lead tried to understand and give patience and presence; prayer was also given as pt normally asks for that; pt was trying to remove his gown during the visit but was encouraged to keep himself covered for the most private parts
--- NOTE | 2023-10-15 13:47 | PN_ITS ---
Subjective Subjective Patient seen and examined. He is still quite confused and lethargic. He is on 4L of oxygen. Review of systems is otherwise negative. Objective Data Objective Data Vital Signs: Vital Signs Temp Pulse Resp BP Pulse Ox O2 Del Method O2 Flow Rate 97.8 F 100 24 H 114/52 L 95 Nasal Cannula 4 10/15/23 11:18 10/15/23 13:36 10/15/23 13:20 10/15/23 11:18 10/15/23 13:20 10/15/23 13:20 10/15/23 13:20 FiO2 35 10/15/23 11:18 Oxygen Flow Rate (L/min) 4 Oxygen Delivery Method Nasal Cannula Weight: 248 lb 3.848 oz Body Mass Index (BMI) 33.6 Intake & Output: Intake and Output for Last 24 Hours 10/13/23 10/14/23 10/15/23 23:59 23:59 23:59 Intake Total 690.00 / 690.00 2171.25 / 2171.25 347.5 / 347.5 Output Total 1350 / 1350 600 / 600 Balance 690.00 / 690.00 821.25 / 821.25 -252.5 / -252.5 Lab / Micro Data 10/15/23 05:22 10/15/23 05:22 Labs: Laboratory Results - last 24 hr 10/14/23 16:42: POC Glucose 164 H 10/14/23 21:28: POC Glucose 273 H 10/14/23 21:47: B-Natriuretic Peptide 174.0 H 10/15/23 05:22: WBC 8.6, RBC 2.44 L, Hgb 7.5 L, Hct 23.6 L, MCV 96.7 H, MCH 30.7, MCHC 31.8 L, RDW Std Deviation 59.7 H, RDW Coeff of Flavio 16.8 H, Plt Count 138 L, MPV 10.4, Immature Gran % (Auto) 2.100 H, Neut % (Auto) 84.5 H, Lymph % (Auto) 9.0 L, [place] % (Auto) 3.8, Eos % (Auto) 0.5, Baso % (Auto) 0.1, Absolute Neuts (auto) 7.3, Absolute Lymphs (auto) 0.78 L, Nucleated RBC % 0.2, Differential Comment SCANNED, Sodium 147 H, Potassium 4.2, Chloride 126 H, Carbon Dioxide 15.0 L, Anion Gap 6, BUN 64 H, Creatinine 2.70 H, Estim Creat Clear Calc 26.39, Est GFR (MDRD) Af Amer 29 L, Est GFR (MDRD) Non-Af 24 L, BUN/Creatinine Ratio 23.7 H, Glucose 216 H, Calcium 7.6 L, Iron 14 L, TIBC 102 L , Iron Saturation 13.7 L, Ferritin 410 H, Total Bilirubin 2.00 H, AST 43 H, ALT 21, Alkaline Phosphatase 180 H, Total Protein 6.3 L, Albumin 1.5 L, Globulin 4.8 H, Albumin/Globulin Ratio 0.3 L 10/15/23 06:43: POC Glucose 193 H 10/15/23 08:01: Ammonia 57.0 H 10/15/23 10:59: POC Glucose 232 H Micro: Microbiology 10/15/23 10:45 Stool Stool Occult Blood (AKIN) - Final Occult Blood Positive 10/13/23 19:05 Mucosa - Nasopharyngeal Coronavirus COVID-19 PCR - Final 10/13/23 19:05 Mucosa - Nasopharyngeal Respiratory Panel (PCR) - Final 10/13/23 19:02 Urine, Clean Catch Legionella Antigen - Final 10/13/23 19:02 Urine, Clean Catch Streptococcus pneumoniae Antigen (M - Final Radiography Diagnostic Testing: Radiology Impression Echocardiogram 10/13/23 18:43 Interpretation Summary The estimated ejection fraction is 65 %. Unable to assess diastolic dysfunction. Trivial mitral valve insufficiency. Ordering Physician: Caden Hernandez Performed By: RANDI Chest X-Ray 10/14/23 21:04 IMPRESSION: No significant change. Widespread diffuse patchy pulmonary opacities of both lungs. Electronically Signed: Vicente Lew MD at 21:18 EST , Physical Exam Const alert Orientation / Consciousness: awake, confused and lethargic HEENT normocephalic, head/scalp atraumatic, moist oral mucous membranes and oropharynx normal Eyes PERRL, EOMs intact bilaterally and conjunctivae normal Neck supple, no JVD, thyroid normal and no carotid bruits General: trachea midline Lymph Lymphatic: no lymphadenopathy noted and no lymphedema noted Resp normal respiratory effort, no retractions, no use of accessory muscles and clear to auscultation bilaterally Resp Narrative: diminished breath sounds bibasally, no wheezes or crackles. on 4L of oxygen. Auscultation: Negative for rales, rhonchi or wheezes Cardio regular rate, regular rhythm, S1 normal heart sound, S2 normal heart sound, no murmurs, no rub and no gallops GI normal to inspection, nondistended, normoactive bowel sounds, soft to palpation, non-tender and non-distended Extremity normal capillary refill, no clubbing, cyanosis or edema and no calf tenderness General Extremity: no tenderness to palpation of joints or extremities Skin no rashes or lesions noted General Skin Exam: no breakdown Neuro moves all extremities Neuro Narrative: confused, lethargic, moves all extremities. Sensorium / Orientation: awake Motor Exam: general weakness Psych Psych Narrative: Patient is awake but confused, he is lethargic at times Assessment & Plan Assessment/Plan (1) Hyperammonemia: (2) Respiratory distress: PLAN: Plan #Acute encephalopathy likely due to hepatic encephalopathy. * on lactulose. 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 * On rifaximin. Will trend liver enzymes. * still confused * #PRobable aspiration pneumonia: Currently on IV Zosyn. Concern patient is aspirating as he has a very wet cough. Speech therapy consulted. #Hypernatremia: Resolving. Sodium is down to 147. Will continue hydration with D5 water. #Type 2 diabetes mellitus: ISS. Accuchecks ACHS #CKD: Creatinine today is 2.7. This is within the range of his creatinine has been. Will monitor. #Thrombocytopenia: Platelets are 138. Has episodic low platelets. Will monitor closely. Likely due to liver disease. #Normal anion gap metabolic acidosis: Bicarb is 15 with anion gap of 5. This is likely due to CKD. Will monitor. #Anemia: Hemoglobin is 7.5 today. Was 8.8 yesterday. Baseline hemoglobin is between 8-10. Will monitor closely and if it drops further we will check iron profile and consult gastroenterology. #Heart failure preserved ejection fraction: Has known EF of 65%. 2D echo during this admission also showed EF of 65% and unable to assess diastolic dysfunction with trivial mitral valve insufficiency. #Type 2 diabetes mellitus: Oral meds on hold. Insulin Sliding scale. On long- acting insulin. Checks ACHS. #MACHELLE: On BiPAP nightly. #Paroxysmal A-fib: On Eliquis. #History of arrhythmia: S/p pacemaker insertion. #Hypertension: On hydralazine and metoprolol #Restless leg syndrome: Mirapex #BPH: On finasteride DVT prophylaxis: On Eliquis Charges/Coding Visit Charges Inpatient E&M: 19461 Subs Hosp L3
[2023-10-15 15:59] LABS: Bedside Glucose 222 mg/dL (74-106)
[2023-10-15] MEDS: Morphine 2 MG/ML Syringe IV (18:47)
[2023-10-15 23:20] LABS: Bedside Glucose 247 mg/dL (74-106)
[2023-10-16] VITALS (9 sets, daily range): BP systolic 126–147; BP diastolic 49–58; PULSE 89–99; RESP 12–24; TEMP 36.3–36.4; O2SAT 90–94
[2023-10-16] MEDS: Insulin Lispro 100 UNIT/ML INSULN.PEN SC ×3 (06:20→17:08)
[2023-10-16] MEDS: Piperacil/Tazobactam 3.375 GM in 0.9% Normal Saline (50mL MB+) 50 ML IV ×2 (06:58→14:40)
[2023-10-16 07:11] LABS: Bedside Glucose 262 mg/dL (74-106)
[2023-10-16] MEDS: Ipratropium/Albuterol Sulfate 3 ML AMPUL.NEB INHALATION ×2 (07:18→13:25)
[2023-10-16 08:00] LABS: Absolute Lymphocyte Count 1.33 X10^3/uL (0.83-4.51); Basophil# 0.03 X10^3/uL; Basophil% 0.2 % (0-1); Eosinophil# 0.03 X10^3/uL; Eosinophils% 0.2 % (0-5); Hematocrit 27.6 % (40-54); Hemoglobin 8.4 g/dL (13.0-16.5); Lymphocyte # 1.33 X10^3/ul (0.83-4.51); Lymphocyte % 8.8 % (19-41); Mean Corp Hgb Conc 30.4 g/dL (32-36); Mean Corpuscular Hgb 30.7 pg (27.0-32.0); Mean Corpuscular Volume 100.7 fL (80-94); Mean Platelet Vol. 10.2 fl (6.2-12.0); Monocyte# 0.34 X10^3/uL; Monocyte% 2.2 % (0-10); NRBC Flagged by Analyzer 0 % (0-5); Neutrophil # 12.96 X10^3/uL (2.7-7.7); Neutrophil % 85.8 % (47-70); POSITIVE MORPHOLOGY YES; Platelet Count 174 K/mm3 (150-450); RBC Distribution Width CV 17.2 % (11.6-14.6); RBC Distribution Width SD 64.1 fl (35.1-43.9); Red Blood Count 2.74 M/mm3 (4.6-6.2); White Blood Count 15.1 K/mm3 (4.4-11.0)
[2023-10-16 08:22] LABS: Differential Indicated SCAN CRITERIA MET
[2023-10-16 08:42] LABS: ALB/GLOB Ratio 0.3 RATIO (0.9-2.4); AST(SGOT) 41 U/L (15-37); Alanine Aminotransfer ALT/SGPT 20 U/L (16-61); Albumin, Serum 1.6 g/dL (3.2-5.0); Alkaline Phosphatase 184 U/L (45-117); Anion Gap 7 (5-15); BUN 76 mg/dL (7-18); BUN/Creat Ratio 21.7 RATIO (10-20); Calcium,Total 7.6 mg/dL (8.5-10.1); Chloride 128 mmol/L (98-107); EST Glomerular Filtration Rate 18 mL/min (>60); Est Glom Filt Rate - Afr Amer 22 mL/min (>60); Estimated Creatinine Clearance 20.36 ml/min; Globulin 5.5 g/dL (2.2-4.2); Glucose 276 mg/dL (74-106); Potassium 4.6 mmol/L (3.5-5.1); Protein, Total 7.1 g/dL (6.4-8.2); Sodium Level 150 mmol/L (136-145)
--- NOTE | 2023-10-16 09:19 | CASEMGMT ---
Addendum entered by Saranya Lynn 10/16/23 16:54: patient relations liaison and nurse here to meet with pt and family. Pt and family choosing admission to the Inpatient Hospice Unit and pt has been accepted. Physician updated and pt to be discharged today. [facility] arranged [facility] for 6:30 pick up man via [place]. Hospice nurse and bedside nurse made aware of pickup time. Message sent to [facility] informing that pt will be going to the [facility] today. Disposition: [facility] Inpatient Unit MAURISIO Wood Addendum entered by Saranya Lynn 10/16/23 10:14: Social Work Return phone call from [facility] and they will meet with family and pt today at 1330. Nursing updated. MAURISIO Freedman Original Note: Social Work SW was updated by physician and nursing that pt and family are requesting hospice referral. Nursing faxed clinicals to [facility]. Phone call to [facility] and spoke with Sarah who confirms they have received the referral and will be calling the family to set an appointment soon. [facility] to call this SW back when appointment has been set. MAURISIO Wood
--- NOTE | 2023-10-16 09:59 | CPS ---
Found pt set at 35%. Pt sat was 90%, increased pt to 40% at this time. Sat is now 94%.
[2023-10-16 10:41] LABS: Differential Comment SCANNED; Reactive Lymphocyte 1+
[2023-10-16] MEDS: Pantoprazole Sodium 40 MG in 0.9% Normal Saline (100mL MB+) 100 ML 330 MG IV (11:22)
[2023-10-16] MEDS: Insulin Glargine-YFGN 100 UNIT/ML Pen 42 UNIT SC (11:23)
[2023-10-16] MEDS: Morphine 2 MG/ML Syringe IV ×2 (11:42→18:30)
[2023-10-16 11:49] LABS: Bedside Glucose 231 mg/dL (74-106)
--- NOTE | 2023-10-16 13:49 | PN_ITS ---
Subjective Subjective Patient seen and examined. He was on BIPAP. He was very weak and lethargic. Unable to do review of systems. Family switched code status to DNRCC yesterday. Objective Data Objective Data Vital Signs: Vital Signs Temp Pulse Resp BP Pulse Ox O2 Del Method O2 Flow Rate 97.5 F L 89 22 H 126/49 H 94 Bi-pap 4 10/16/23 08:00 10/16/23 13:34 10/16/23 13:34 10/16/23 08:00 10/16/23 13:34 10/16/23 08:00 10/15/23 16:53 FiO2 40 10/16/23 13:34 Oxygen Flow Rate (L/min) 4 Oxygen Delivery Method Bi-pap Weight: 248 lb 3.848 oz Body Mass Index (BMI) 33.6 Intake & Output: Intake and Output for Last 24 Hours 10/14/23 10/15/23 10/16/23 23:59 23:59 23:59 Intake Total 2171.25 / 2171.25 447.5 / 447.5 210 / 210 Output Total 1350 / 1350 850 / 850 100 / 100 Balance 821.25 / 821.25 -402.5 / -402.5 110 / 110 Lab / Micro Data 10/16/23 07:42 10/16/23 07:42 Labs: Laboratory Results - last 24 hr 10/15/23 15:39: POC Glucose 222 H 10/15/23 22:53: POC Glucose 247 H 10/16/23 06:20: POC Glucose 262 H 10/16/23 07:42: WBC 15.1 H, RBC 2.74 L, Hgb 8.4 L, Hct 27.6 L, MCV 100.7 H, MCH 30.7, MCHC 30.4 L, RDW Std Deviation 64.1 H, RDW Coeff of Flavio 17.2 H, Plt Count 174, MPV 10.2, Immature Gran % (Auto) 2.800 H, Neut % (Auto) 85.8 H, Lymph % (Auto) 8.8 L, [place] % (Auto) 2.2, Eos % (Auto) 0.2, Baso % (Auto) 0.2, Absolute Neuts (auto) 13.0 H, Absolute Lymphs (auto) 1.33, Nucleated RBC % 0, Differential Comment SCANNED, Reactive Lymphocytes 1+, Sodium 150 H, Potassium 4.6, Chloride 128 H*, Carbon Dioxide 15.0 L, Anion Gap 7, BUN 76 H, Creatinine 3.50 H, Estim Creat Clear Calc 20.36, Est GFR (MDRD) Af Amer 22 L, Est GFR (MDRD) Non-Af 18 L, BUN/Creatinine Ratio 21.7 H, Glucose 276 H, Calcium 7.6 L, Total Bilirubin 2.30 H, AST 41 H, ALT 20, Alkaline Phosphatase 184 H, Total Protein 7.1, Albumin 1.6 L, Globulin 5.5 H, Albumin/Globulin Ratio 0.3 L 10/16/23 11:19: POC Glucose 231 H Micro: Microbiology 10/15/23 10:45 Stool Stool Occult Blood (AKIN) - Final Occult Blood Positive 10/13/23 19:05 Mucosa - Nasopharyngeal Coronavirus COVID-19 PCR - Final 10/13/23 19:05 Mucosa - Nasopharyngeal Respiratory Panel (PCR) - Final 10/13/23 19:02 Urine, Clean Catch Legionella Antigen - Final 10/13/23 19:02 Urine, Clean Catch Streptococcus pneumoniae Antigen (M - Final Physical Exam Const Constitutional Narrative: lethargic, very weak and frail. General Appearance: well developed Orientation / Consciousness: awake, confused and lethargic HEENT normocephalic, head/scalp atraumatic, moist oral mucous membranes and oropharynx normal Eyes PERRL, EOMs intact bilaterally and conjunctivae normal Neck supple, no JVD, thyroid normal and no carotid bruits General: trachea midline Lymph Lymphatic: no lymphadenopathy noted and no lymphedema noted Resp normal respiratory effort, no retractions, no use of accessory muscles and clear to auscultation bilaterally Resp Narrative: diminished breath sounds bibasally, no wheezes or crackles. on BIPAP Auscultation: Negative for rales, rhonchi or wheezes Cardio regular rate, regular rhythm, S1 normal heart sound, S2 normal heart sound, no murmurs, no rub and no gallops GI normal to inspection, nondistended, normoactive bowel sounds, soft to palpation, non-tender and non-distended Extremity normal capillary refill, no clubbing, cyanosis or edema and no calf tenderness General Extremity: no tenderness to palpation of joints or extremities Skin no rashes or lesions noted General Skin Exam: no breakdown Neuro CN's II-XII intact bilaterally, moves all extremities and no focal motor deficits Neuro Narrative: confused, lethargic, moves all extremities. Sensorium / Orientation: awake Motor Exam: general weakness Psych Psych Narrative: Patient weak and lethargic, on BIPAP Activity / Motor Behavior: restless Assessment & Plan Assessment/Plan (1) Hyperammonemia: (2) Respiratory distress: PLAN: Plan #Acute encephalopathy likely due to hepatic encephalopathy. * on lactulose. 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 * On rifaximin. * still confused * #PRobable aspiration pneumonia: Currently on IV Zosyn. Concern patient is aspirating as he has a very wet cough. Speech therapy on board. Will DC IV Z osyn as patient has been DNR CC and opted for hospice care. #Hypernatremia: Sodium is 150. Will DC D5 water as patient does DNR CC pending admission to hospice. #Type 2 diabetes mellitus: ISS. Accuchecks ACHS #HORACE on CKD: Creatinine today is now up to 3.5. No further workup as patient is awaiting hospice evaluation for discharge to hospice. #Thrombocytopenia: Platelets at 174 today. #Normal anion gap metabolic acidosis: Bicarb is 15 with anion gap of 5. This is likely due to CKD. Will monitor. #Anemia: Hb is 8.4 today. #Heart failure preserved ejection fraction: Has known EF of 65%. 2D echo during this admission also showed EF of 65% and unable to assess diastolic dysfunction with trivial mitral valve insufficiency. #Type 2 diabetes mellitus: Oral meds on hold. Insulin Sliding scale. On long- acting insulin. Checks ACHS. #MACHELLE: On BiPAP nightly. #Paroxysmal A-fib: On Eliquis. #History of arrhythmia: S/p pacemaker insertion. #Hypertension: On hydralazine and metoprolol #Restless leg syndrome: Mirapex #BPH: On finasteride DVT prophylaxis: On Eliquis Disposition: Patient's family switch CODE STATUS to DNR CC yesterday. Hospice to evaluate him today as his family wants him to go to the half-way with hospice. Charges/Coding Visit Charges Inpatient E&M: 78098 [facility] L3
[2023-10-16 17:31] LABS: Bedside Glucose 221 mg/dL (74-106)
--- NOTE | 2023-10-17 16:34 | PCM.DC.SUM ---
Providers Date of Admission: 10/13/23 Date of Discharge: 10/17/23 Primary Care Physician: Dr. Saima Thompson MD Consultations 10/15/23 17:57 Consult: Hospice / Palliative Care Routine Consulting Provider: [facility] Reason for Consult: resp failure EMERGENT Consult: No MD Notified: Yes Date Notified: 10/16/23 Time Notified: 10:15 Method of Notification: Answering Service Comments:: per social service director meeting at 13:30 with pt/family Reason For Visit: HEPATIC ENCEPHALOPATHY, PNEUMONIA Diagnosis Discharge Diagnosis (1) Hyperammonemia: Status: Acute Code(s): E72.20 - Disorder of urea cycle metabolism, unspecified (2) Respiratory distress: Status: Acute Code(s): R06.03 - Acute respiratory distress Plan #Acute encephalopathy likely due to hepatic encephalopathy. on lactulose. 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 On rifaximin. still confused #PRobable aspiration pneumonia: Currently on IV Zosyn. Concern patient is aspirating as he has a very wet cough. Speech therapy on board. Will DC IV Zosyn as patient has been DNR CC and opted for hospice care. #Hypernatremia: Sodium is 150. Will DC D5 water as patient does DNR CC pending admission to hospice. #Type 2 diabetes mellitus: ISS. Accuchecks ACHS #HORACE on CKD: Creatinine today is now up to 3.5. No further workup as patient is awaiting hospice evaluation for discharge to hospice. #Thrombocytopenia: Platelets at 174 today. #Normal anion gap metabolic acidosis: Bicarb is 15 with anion gap of 5. This is likely due to CKD. Will monitor. #Anemia: Hb is 8.4 today. #Heart failure preserved ejection fraction: Has known EF of 65%. 2D echo during this admission also showed EF of 65% and unable to assess diastolic dysfunction with trivial mitral valve insufficiency. #Type 2 diabetes mellitus: Oral meds on hold. Insulin Sliding scale. On long-acting insulin. Checks ACHS. #MACHELLE: On BiPAP nightly. #Paroxysmal A-fib: On Eliquis. #History of arrhythmia: S/p pacemaker insertion. #Hypertension: On hydralazine and metoprolol #Restless leg syndrome: Mirapex #BPH: On finasteride DVT prophylaxis: On Eliquis Disposition: Patient's family switch CODE STATUS to DNR CC yesterday. Hospice to evaluate him today as his family wants him to go to the skilled nursing with hospice. Medications at Discharge Home Medications finasteride 5 mg tablet 5 mg PO DAILY PROSTATE #90 tabs 11/03/18 ergocalciferol (vitamin D2) 1,250 mcg (50,000 unit) capsule 50,000 unit PO QMONTH SUPPLEMENT #14 caps 11/29/22 nitroglycerin 0.4 mg sublingual tablet 0.4 mg sublingual Q5M PRN Cardiac/Chest Pain 30 days #30 tabs 12/03/22 metoprolol succinate 25 mg tablet,extended release 24 hr 25 mg PO DAILY BLOOD PRESSURE 12/07/22 apixaban 2.5 mg tablet (Eliquis) 2.5 mg PO BID BLOOD THINNER #180 tabs 12/25/22 atorvastatin 10 mg tablet 10 mg PO QHS CHOLESTEROL #90 tabs 12/25/22 pen needle, diabetic 31 gauge x 3/16 (BD Ultra-Fine Mini Pen Needle) #100 ea 12/30/22 hydralazine 50 mg tablet 50 mg PO TID BLOOD PRESSURE 02/04/23 fluticasone propionate 50 mcg/actuation nasal spray,suspension 2 spray intranasal DAILY NASAL CONGESTION #16 grams 06/24/23 progesterone micronized 100 mg capsule 100 mg PO QAM HORMONE REPLACEMENT #90 caps 07/03/23 lancets 30 gauge (OneTouch Delica Plus Lancet) #100 ea 07/22/23 fanny (Ultra-Light Rollator [facility] [place]) #1 ea 08/13/23 famotidine 40 mg tablet 40 mg PO DAILY ACID REFLUX #30 tabs 08/15/23 ferrous sulfate 325 mg (65 mg iron) tablet 325 mg PO TH supplement #90 tabs 08/15/23 pantoprazole 40 mg tablet,delayed release (Protonix) 40 mg PO DAILY #60 tabs 08/23/23 meclizine 25 mg tablet 25 mg PO Q8H PRN dizziness 08/26/23 acetaminophen 325 mg tablet 650 mg (2 x 325 mg) PO Q4H PRN fever or pain #1 TAB 08/29/23 albuterol sulfate 2.5 mg/3 mL (0.083 %) solution for nebulization 2.5 mg inhalation Q4H PRN shortness of breath or wheezing 10/07/23 aluminum-mag hydroxide-simethicone 200 mg-200 mg-20 mg/5 mL oral susp (Antacid Plus Anti-Gas) 30 ml PO Q4H PRN indigestion 10/07/23 bisacodyl 10 mg rectal suppository 10 mg MN DAILY PRN constipation 10/07/23 furosemide 20 mg tablet (Lasix) 20 mg PO DAILY 10/07/23 guaifenesin 200 mg/5 mL oral liquid 200 mg PO Q6H PRN cough 10/07/23 insulin glargine 100 unit/mL (3 mL) subcutaneous pen (Lantus Solostar U-100 Insulin) 42 unit subcut DAILY 10/07/23 sertraline 25 mg tablet 25 mg PO DAILY 10/07/23 acetaminophen 650 mg rectal suppository 650 mg MN Q4H 10/13/23 albuterol sulfate 90 mcg/actuation aerosol inhaler 2 inh inhalation Q8H PRN shortness of breath or wheezing 10/13/23 dextrose 40 % oral gel (Glucose Gel) 10 g PO Q15M PRN hypoglycemia 10/13/23 exenatide microspheres 2 mg/0.85 mL subcutaneous auto-injector (Bydureon BCise) 2 mg subcut FR 10/13/23 glucagon HCl 1 mg solution for injection (Glucagon (HCl) Emergency Kit) 1 mg IM Q20M PRN hypoglycemia 10/13/23 ipratropium 0.5 mg-albuterol 3 mg (2.5 mg base)/3 mL nebulization soln 3 ml inhalation Q8H SHORTNESS OF BREATH 10/13/23 lactulose 20 gram/30 mL oral solution 30 g PO 4X/DAY 10/13/23 magnesium hydroxide 400 mg/5 mL oral suspension (Milk of Magnesia) 30 ml PO DAILY PRN constipation 10/13/23 pramipexole 1 mg tablet 2 mg PO QHS RESTLESS LEG SYNDROME 10/13/23 progesterone micronized 100 mg capsule 100 mg PO DAILY 10/13/23 sodium phosphates 19 gram-7 gram/118 mL enema (Fleet Enema) 118 ml MN DAILY PRN constipation 10/13/23 Hospital Course Operations None Procedures None Summary of Care Provided Minutes Spent on Discharge: 55 Hospital Course: Patient is an 83 y/o male with a PMH as outlined was admitted through the ED on 10/13/2023 with a complaint of decreased level of consciousness and elevated ammonia level. He was admitted from his skilled nursing where his ammonia level was checked elevated. He was also noted to be very confused and so was brought in from his facility. On admission, bicarb was 12 with creatinine of 2.82 and bilirubin of 2.2. Ammonia was not repeated as it was just done on the day of admission. ABGs done showed pO2 of 76 and pCO2 of 19.5. Chest x-ray showed bilateral infiltrates more pronounced in the right midlung. He was admitted and managed for acute hepatic encephalopathy in the setting of liver cirrhosis as well as pneumonia. He was started on IV antibiotics and started on lactulose. Hospital course was complicated by worsening respiratory status with patient requiring more oxygen. He was placed on BiPAP and could not be weaned off of BiPAP. Family reviewed patient and. Extensive discussion had with family about CODE STATUS due to patient's debilitated state and poor prognosis, family decided to switch CODE STATUS to DNR CC. They are amenable to hospice evaluation. Hospice evaluated patient on 10/16/2023. Patient was discharged to hospice medical facility on 10/16/2023. CODE STATUS was changed to DNR CC. Patient was seen and examined prior to him being discharged. He remained very weak and lethargic and minimally responsive. Unable to do review of systems. Physical Exam Const Constitutional Narrative: lethargic, very weak and frail. Orientation / Consciousness: confused and lethargic HEENT normocephalic, head/scalp atraumatic, moist oral mucous membranes and oropharynx normal Eyes PERRL, EOMs intact bilaterally and conjunctivae normal Neck supple, no JVD, thyroid normal and no carotid bruits General: trachea midline Lymph Lymphatic: no lymphadenopathy noted and no lymphedema noted Resp Resp Narrative: diminished breath sounds bibasally, no wheezes or crackles. on BIPAP Auscultation: Negative for rales, rhonchi or wheezes Cardio regular rate, regular rhythm, S1 normal heart sound, S2 normal heart sound, no murmurs, no rub and no gallops GI normal to inspection, nondistended, normoactive bowel sounds, soft to palpation, non-tender and non-distended Extremity normal capillary refill, no clubbing, cyanosis or edema and no calf tenderness General Extremity: no tenderness to palpation of joints or extremities Skin no rashes or lesions noted General Skin Exam: no breakdown Neuro Neuro Narrative: confused, lethargic, moves all extremities. Motor Exam: general weakness Psych Psych Narrative: Patient weak and lethargic, on BIPAP Activity / Motor Behavior: restless Weight / BMI Weight Weight: 248 lb 3.848 oz Body Mass Index (BMI) 33.6 ABG / Lab / Microbiology Data 10/16/23 07:42 10/16/23 07:42 Laboratory: Laboratory Results - last 24 hr 10/16/23 17:07: POC Glucose 221 H Microbiology: Microbiology 10/15/23 10:45 Stool Stool Occult Blood (AKIN) - Final Occult Blood Positive 10/13/23 19:05 Mucosa - Nasopharyngeal Coronavirus COVID-19 PCR - Final 10/13/23 19:05 Mucosa - Nasopharyngeal Respiratory Panel (PCR) - Final 10/13/23 19:02 Urine, Clean Catch Legionella Antigen - Final 10/13/23 19:02 Urine, Clean Catch Streptococcus pneumoniae Antigen (M - Final Meaningful Use Info Meaningful Use Diagnoses (Choose all that apply): None applicable Discharge Plan Admission Admit Date/Time: 10/13/23 17:18 Primary Reason for Your Visit: acute hepatic encephalopathy, aspiration pneumonia Attending Provider: Clarice Fontenot Primary Care Provider: Saima Thompson Consulting Providers: Caden Hernandez; Madan Malcolm; Erica James; Jennifer Tanner; Marisel Cornejo [employer] Discharge Orders/Prescriptions Prescriptions: No Action nitroglycerin 0.4 mg Tablet, Sublingual 0.4 mg sublingual Q5M PRN (Reason: Cardiac/Chest Pain) 30 Days Qty: 30 0RF metoprolol succinate 25 mg tablet extended release 24 hr 25 mg PO DAILY hydralazine 50 mg tablet 50 mg PO TID pantoprazole [Protonix] 40 mg tablet,delayed release (DR/EC) 40 mg PO DAILY Qty: 60 0RF albuterol sulfate 2.5 mg /3 mL (0.083 %) solution for nebulization 2.5 mg inhalation Q4H PRN (Reason: shortness of breath or wheezing) alum-mag hydroxide-simeth [Antacid Plus Anti-Gas] 200-200-20 mg/5 mL suspension 30 ml PO Q4H PRN (Reason: indigestion) bisacodyl 10 mg suppository 10 mg MN DAILY PRN (Reason: constipation) guaifenesin 200 mg/5 mL liquid 200 mg PO Q6H PRN (Reason: cough) insulin glargine [Lantus Solostar U-100 Insulin] 100 unit/mL (3 mL) insulin pen 42 unit subcut DAILY furosemide [Lasix] 20 mg tablet 20 mg PO DAILY sertraline 25 mg tablet 25 mg PO DAILY meclizine 25 mg tablet 25 mg PO Q8H PRN (Reason: dizziness) acetaminophen 325 mg tablet 650 mg PO Q4H PRN (Reason: fever or pain) Qty: 1 0RF Bydureon BCise 2 mg/0.85 mL auto-injector 2 mg subcut FR ipratropium-albuterol 0.5 mg-3 mg(2.5 mg base)/3 mL solution for nebulization 3 ml inhalation Q8H progesterone micronized 100 mg capsule 100 mg PO DAILY lactulose 20 gram/30 mL Solution 30 g PO 4X/DAY acetaminophen 650 mg suppository 650 mg MN Q4H Rx Instructions: do not exceed 4GM in 24 hours albuterol sulfate 90 mcg/actuation HFA aerosol inhaler 2 inh inhalation Q8H PRN (Reason: shortness of breath or wheezing) Fleet Enema 19-7 gram/118 mL enema 118 ml MN DAILY PRN (Reason: constipation) Rx Instructions: CALL PHYSICIAN IF NO BM IN 4 DAYS glucagon HCl [Glucagon (HCl) Emergency Kit] 1 mg recon soln 1 mg IM Q20M PRN (Reason: hypoglycemia) dextrose [Glucose Gel] 40 % gel 10 g PO Q15M PRN (Reason: hypoglycemia) Rx Instructions: until symptoms of low blood sugar are controlled magnesium hydroxide [Milk of Magnesia] 400 mg/5 mL suspension 30 ml PO DAILY PRN (Reason: constipation) Rx Instructions: NOTIFY PHYSICIAN IF NO BM IN 4 DAYS pramipexole 1 mg tablet 2 mg PO QHS finasteride 5 mg tablet 5 mg PO DAILY Qty: 90 3RF ergocalciferol (vitamin D2) 1,250 mcg (50,000 unit) capsule 50,000 unit PO QMONTH Qty: 14 1RF Eliquis 2.5 mg tablet 2.5 mg PO BID Qty: 180 3RF atorvastatin 10 mg tablet 10 mg PO QHS Qty: 90 3RF (DME) pen needle, diabetic [BD Ultra-Fine Mini Pen Needle] 31 gauge x 3/16 needle See Rx Instructions .Route Qty: 100 4RF Rx Instructions: As directed fluticasone propionate 50 mcg/actuation spray,suspension 2 spray intranasal DAILY Qty: 16 3RF Hold Instructions: MD Ordered Patient Comments: PT STATES HE USES AT NIGHT progesterone micronized 100 mg capsule 100 mg PO QAM Qty: 90 3RF (DME) lancets [OneTouch Delica Plus Lancet] 30 gauge misc See Rx Instructions .Route Qty: 100 4RF Rx Instructions: As directed; Check BG 2-3 times daily for DMII (DME) Ultra-Light Rollator Misc See Rx Instructions .Route Qty: 1 0RF Rx Instructions: As directed famotidine 40 mg tablet 40 mg PO DAILY Qty: 30 1RF ferrous sulfate 325 mg (65 mg iron) tablet 325 mg PO TH Qty: 90 1RF Rx Instructions: only Referrals / Follow Up: Saima Thompson MD [Primary Care Provider] - Disposition Disposition (needs filled in before D/C Order can be placed): Hospice in Medical Facility Charges/Coding Visit Charges Inpatient E&M: 17935 Disch Hosp >30min
== END 2023-10-16 18:37 | disposition hospice, inpatient (51) | DRG 178 ==
LOC: ED 16:43 → MS3 17:23
PROVIDERS: Internal Medicine; Admitting Provider Internal Medicine; Emergency Provider Emergency Medicine; PCP Internal Medicine; Visit Provider Student in an Organized Health Care Education/Training Program
DX: J69.0 Pneumonitis due to inhalation of food and vomit (principal); I13.0 Hypertensive heart and chronic kidney disease with heart failure and stage 1 through stage 4 chronic kidney disease, or unspecified chronic kidney disease; E87.0 Hyperosmolality and hypernatremia; E87.20 Acidosis, unspecified; N17.9 Acute kidney failure, unspecified; I50.32 Chronic diastolic (congestive) heart failure; E11.22 Type 2 diabetes mellitus with diabetic chronic kidney disease; D64.9 Anemia, unspecified; K76.82 Hepatic encephalopathy; I48.0 Paroxysmal atrial fibrillation; G25.81 Restless legs syndrome; E11.42 Type 2 diabetes mellitus with diabetic polyneuropathy; K74.60 Unspecified cirrhosis of liver; Z79.4 Long term (current) use of insulin; N18.9 Chronic kidney disease, unspecified; F32.A Depression, unspecified; E78.5 Hyperlipidemia, unspecified; I25.10 Atherosclerotic heart disease of native coronary artery without angina pectoris; G47.33 Obstructive sleep apnea (adult) (pediatric); F41.9 Anxiety disorder, unspecified; Z66 Do not resuscitate; Z79.01 Long term (current) use of anticoagulants; Z79.899 Other long term (current) drug therapy; Z95.0 Presence of cardiac pacemaker; Z79.51 Long term (current) use of inhaled steroids; Z86.718 Personal history of other venous thrombosis and embolism; Z86.73 Personal history of transient ischemic attack (TIA), and cerebral infarction without residual deficits
CPT/HCPCS: 36415; 36600; 71045; 80048; 80053; 80076; 82140; 82274; 82728; 82803; 82962; 83540; 83550; 83880; 84484; 85025; 87040; 87449; 87633; 87635; 92610; 93005; 93306; 94002; 94003; 94640; 94668; 94762; 97162; 97166; 97802; 99285; J7030; J7040; J7050; Q9957; A4216; J1940